=== PATIENT | female | born 1930 | race African-American/Black ===

== ENCOUNTER 2017-01-18 11:58 | Inpatient (IN) | payer OTHER, MEDICARE ==
[2017-01-18 12:22] VITALS: BMI 36.0
[2017-01-18] MEDS ORDERED: SODIUM CHLORIDE 1,000 ML IV STA (12:25)
--- NOTE | 2017-01-18 12:48 | PDOC ---
History of Present Illness - General History Source: Patient Exam Limitations: No Limitations - History of Present Illness Initial Comments: 01/18/17 12:48 The patient is a 86 year old female, with a significant past medical history of frequent UTIs, CAD, hypertension, hyperlipidemia, COPD, diverticulitis, ischemic colitis, and colonic polyps, who presents to the ED accompanied by daughter for altered mental status for approximately 1 week. The patient reports she was unable to sleep last night, because she was seeing the police who were coming to arrest her, but she states they were not talking. Patient reports she also heard the phone ringing, but the people she was seeing were not letting her answer. Daughter reports she lives in the room next to the patient, and when she returned she found the patient on the floor complaining of bilateral ankle pain and knee pain. Daughter states patient had a similar episode about 1 year ago, during which her PCP, Dr. Cho changed her meds. Daughter reports a history of frequent UTIs for which the patient has been on antibiotics for the past 6 months. Patient reports some dysuria, but denies hematuria, frequency, or urgency. She denies any fever, chills, cough, headache , or dizziness. She denies any abdominal pain, nausea, vomiting, diarrhea, or constipation. Patient reports she was feeling well up til last night. Allergies: Penicillins Past Surgical History: Hiatal hernia repair. Social history: Non smoker. No ETOH or drug use. PCP: Dr. Cho <Sony Gore - Last Filed: 01/18/17 14:04> - General History Source: Patient, Family Exam Limitations: Clinical Condition (patient is confused) <Angela Babb - Last Filed: 01/18/17 14:19> - General Chief Complaint: Altered Mental Status Stated Complaint: fall Time Seen by Provider: 01/18/17 12:11 Past History <Sony Gore - Last Filed: 01/18/17 14:04> - Past Medical History Asthma: Yes Cardiac Disorders: Yes (ASHD, cardiac arrythmia) COPD: Yes HTN: Yes Hypercholesterolemia: Yes - Surgical History Abdominal Surgery: Yes (hiatal hernia repair) - Immunization History Immunization Up to Date: Yes - Psycho/Social/Smoking Cessation Hx Anxiety: No Suicidal Ideation: No Smoking Status: No Smoking History: Unknown if ever smoked Number of Cigarettes Smoked Daily: 0 Information on smoking cessation initiated: No Hx Alcohol Use: No Drug/Substance Use Hx: No Substance Use Type: None <Angela Babb - Last Filed: 01/18/17 14:19> - Past Medical History Allergies/Adverse Reactions: Allergies Allergy/AdvReac Type Severity Reaction Status Date / Time Penicillins Allergy Verified 01/18/17 12:19 Home Medications: Ambulatory Orders Ascorbic Acid [Vitamin C with Barbara Hips] 500 mg PO DAILY 01/18/17 Aspirin [ASA -] 81 mg PO DAILY 01/18/17 Cholecalciferol (Vitamin D3) [Vitamin D3] 2,000 unit PO DAILY 01/18/17 Diltiazem HCl [Cartia Xt] 240 mg PO DAILY 01/18/17 Isosorbide Mononitrate [Isosorbide Mononitrate ER] 30 mg PO DAILY 01/18/17 Losartan Potassium 50 mg PO DAILY 01/18/17 Methenamine Hippurate [Hiprex [Nf] -] 0.5 tab PO DAILY 01/18/17 Oxycodone HCl/Acetaminophen [Percocet 5-325 mg Tablet] 1 tab PO TID 01/18/17 Ranitidine [Zantac -] 150 mg PO DAILY 01/18/17 Review of Systems - Review of Systems Able to Perform ROS?: Yes Comments:: 01/18/17 12:48 GENERAL/CONSTITUTIONAL: No fever or chills. No weakness. HEAD, EYES, EARS, NOSE AND THROAT: No change in vision. No ear pain or discharge. No sore throat. CARDIOVASCULAR: No chest pain or shortness of breath. RESPIRATORY: No cough, wheezing, or hemoptysis. GASTROINTESTINAL: No nausea, vomiting, diarrhea or constipation. GENITOURINARY: Yes: +dysuria. No frequency, or change in urination. MUSCULOSKELETAL: No joint or muscle swelling or pain. No neck or back pain. SKIN: No rash NEUROLOGIC: No headache, vertigo, loss of consciousness, or change in strength/ sensation. ENDOCRINE: No increased thirst. No abnormal weight change. HEMATOLOGIC/LYMPHATIC: No anemia, easy bleeding, or history of blood clots. ALLERGIC/IMMUNOLOGIC: No hives or skin allergy. PSYCH: Yes: +hallucinations. No suicidal or homicidal ideations. <Sony Gore - Last Filed: 01/18/17 14:04> *Physical Exam - Vital Signs Last Vital Signs Temp Pulse Resp BP Pulse Ox 98.2 F 140 H 20 125/87 97 01/18/17 12:19 01/18/17 12:19 01/18/17 12:19 01/18/17 12:19 01/18/17 12:19 - Physical Exam Comments: 01/18/17 12:48 GENERAL: Morbidly obese. Awake, alert, and fully oriented, in no acute distress HEAD: No signs of trauma EYES: PERRLA, EOMI, sclera anicteric, conjunctiva clear ENT: Auricles normal inspection, hearing grossly normal, nares patent, oropharynx clear without exudates. Moist mucosa NECK: Normal ROM, supple, no lymphadenopathy, JVD, or masses LUNGS: Bibasilar crackles. Breath sounds equal. No wheezes. HEART: Tachycardic. Regular rhythm, normal S1 and S2, no murmurs, rubs or gallops ABDOMEN: Obese but soft, nontender, normoactive bowel sounds. No guarding, no rebound. No masses EXTREMITIES: Tenderness to palpation to the femur bilaterally. Normal range of motion, no edema. No clubbing or cyanosis. No cords, erythema, or tenderness NEUROLOGICAL: Cranial nerves II through XII grossly intact. Normal speech. Deferred gait. SKIN: Warm, Dry, normal turgor, no rashes or lesions noted. <Gore,Giomilsy - Last Filed: 01/18/17 14:04> - Vital Signs Last Vital Signs Temp Pulse Resp BP Pulse Ox 98.2 F 140 H 20 125/87 97 01/18/17 12:19 01/18/17 12:19 01/18/17 12:19 01/18/17 12:19 01/18/17 12:19 <Angela Babb - Last Filed: 01/18/17 14:19> ED Treatment Course - LABORATORY CBC & Chemistry Diagram: 01/18/17 12:41 01/18/17 12:41 - RADIOLOGY Radiograph Interpretation: 01/18/17 14:04 EXAM: CXR INTERPRETED BY: Dr. Rivera REVIEWED BY: Dr. Babb IMPRESSION: Since since 06/26/2015 at 2027 hours there are some new congestive changes with fluid in the horizontal fissure and prominent mediastinum. Angles are sharp and the soft tissues are intact and there are degenerative changes. <Sony Gore - Last Filed: 01/18/17 14:04> - LABORATORY CBC & Chemistry Diagram: 01/18/17 12:41 01/18/17 12:41 - RADIOLOGY Radiology Studies Ordered: Category Date Time Status CHEST X-RAY PORTABLE* [RAD] Stat Radiology 01/18/17 12:25 Ordered <Angela Babb - Last Filed: 01/18/17 14:19> Medical Decision Making - Medical Decision Making 01/18/17 14:01 First call placed to Dr. Cho at 14:00. Case discussed at this time. <Noemi Goremartinliboriodenis - Last Filed: 01/18/17 14:04> - Medical Decision Making 01/18/17 12:46 86-year-old female with history of hypertension, hyperlipidemia, COPD, chronic urinary tract infections on prophylactic antibiotics presents to the emergency department with her daughter who states that she found the patient on the floor this morning and is having visual hallucinationssaying that the police were in the room, coming to arrest her. The patient has a temperature of 100.1 and is tachycardic to 140 but normotensive. Differential diagnosis includes but is not limited to: Infection (pneumonia versus UTI) ACS, dehydration, electrolyte abnormality,, sepsis/SIRS, toxic/metabolic derangement, intracranial process, Long bone fracture. Plan: 1. Davila culture 2. EKG 3. Urine analysis and urine culture 4. IV fluids for hydration 5. Chest x-ray 6. CT head 7. Observe and reevaluate 01/18/17 14:14 Addendum: Labs were reviewed and are noted in the EMR. The EKG shows SVT at 140 bpm. The patient was given her usual dose of cardizem 240mg PO with only a minimal reduction in her HR. Cardizem 10 mg IV was given. CXR shows pulmonary vascular edema. CT head is poending. Urine analysis shows +nitrites and LE. Ceftriaxone was ordered. I discussed the case with the PCP. The plan is to admit to a monitored setting with Dr. Melendrez as the nurse consultant. <Angela Babb - Last Filed: 01/18/17 14:19> *DC/Admit/Observation/Transfer - Attestations Scribe Attestion: 01/18/17 12:49 Documentation prepared by Sony Gore, acting as medical education manager for Angela Babb MD. <Sony Gore - Last Filed: 01/18/17 14:04> - Discharge Dispostion Admit: Yes - Attestations Physician Attestion: 01/18/17 12:48 I, Dr. Angela Babb, attest that the scribes documentation that appears above has been prepared under my direction and personally reviewed by me in its entirety. I confirmed that the note above accurately reflects all work, treatment, procedures, and medical decision-making performed by me. <Angela Babb - Last Filed: 01/18/17 14:19> Diagnosis at time of Disposition: UTI (urinary tract infection), Altered mental status, SVT (supraventricular tachycardia) - Discharge Dispostion Condition at time of disposition: Stable
[2017-01-18 13:00] LABS: BASOPHIL 0.9 % (0-2.0); MCH 29.5 pg (25.7-33.7); MEAN CELL VOLUME 92.2 fl (80-96); MEAN PLT VOLUME 9.1 fl (7.5-11.1); PLATELET COUNT 221 K/MM3 (134-434); RDW 15.2 % (11.6-15.6); WHITE BLOOD COUNT 8.4 K/mm3 (4.0-10.0)
[2017-01-18 13:07] LABS: URINE APPEARANCE CLEAR; URINE BILIRUBIN NEGATIVE (NEGATIVE); URINE BLOOD NEGATIVE (NEGATIVE); URINE COLOR LTYELLOW; URINE GLUCOSE (UA) NEGATIVE (NEGATIVE); URINE KETONE TRACE (NEGATIVE); URINE NITRITE POSITIVE (NEGATIVE); URINE PROTEIN NEGATIVE (NEGATIVE); URINE UROBILINOGEN NEGATIVE mg/dL (0.2-1.0)
[2017-01-18] MEDS ORDERED: ACETAMINOPHEN 325 MG TABLET (FP) ONE (13:07)
[2017-01-18] MEDS ORDERED: dilTIAZem HCL 60 MG TABLET (FP) ONE (13:07)
[2017-01-18] MEDS ORDERED: ACETAMINOPHEN 500 MG TABLET (FP) PO ONE (13:08)
[2017-01-18 13:14] LABS: ALBUMIN 3.5 g/dl (3.4-5.0); ANION GAP 9 (8-16); CALCIUM 9.3 mg/dL (8.5-10.1); CO2 26 mmol/L (21-32); CREATININE 1.6 mg/dL (0.55-1.02); GLUCOSE,RANDOM 83 mg/dL (74-106); PHOSPHOROUS 2.8 mg/dL (2.5-4.9); SGOT/AST 19 U/L (15-37); SGPT/ALT 17 U/L (12-78)
[2017-01-18 13:18] LABS: ALK PHOS 94 U/L (45-117); BILIRUBIN,TOTAL 0.3 mg/dL (0.2-1.0); CPK 264 IU/L (26-192); TOT PROT 7.7 g/dl (6.4-8.2); TROPONIN I 0.03 ng/ml (0.00-0.05)
[2017-01-18 13:24] LABS: URINE LEUK ESTERASE 1+ (NEGATIVE)
[2017-01-18 13:32] LABS: URINE BACTERIA MODERATE /hpf (NONE SEEN); URINE RBC 3 /hpf (0-3); URINE WBC 17 /hpf (3-5)
[2017-01-18] MEDS ORDERED: CEFTRIAXONE 1 GM in DEXTROSE 5%-WATER - 50 ML IVPB ONE (13:57)
[2017-01-18] MEDS ORDERED: dilTIAZem HCL 50 MG/10 ML - 10 ML VIAL IVPUSH ONE (14:02)
[2017-01-18] MEDS ORDERED: CEFTRIAXONE 50 ML ONE (14:17)
[2017-01-18] MEDS ORDERED: dilTIAZem HCL 125 MG/25 ML - 25 ML VIAL ONE (14:17)
[2017-01-18] MEDS ORDERED: FUROSEMIDE 40 MG/4 ML INJECTABLE VIAL IVPUSH ONE ×2 (18:00→20:15)
[2017-01-18] MEDS ORDERED: PNEUMOC 13-VAL CONJ-DIP CRM/PF 0.5 ML DISP.SYRIN IM ONE (18:28)
[2017-01-18] MEDS: ACETAMINOPHEN 325 MG TABLET (FP) PO SCH (21:35)
[2017-01-18] MEDS: oxyCODONE HCL 5 MG TABLET PO SCH (21:36)
[2017-01-18] MEDS: ALBUTEROL SO4 0.083% IH SOL 2.5 MG/3 ML VIAL.NEB. NEB SCH (23:30)
[2017-01-19] MEDS: oxyCODONE HCL 5 MG TABLET PO SCH ×3 (05:58→21:55)
[2017-01-19] MEDS: ACETAMINOPHEN 325 MG TABLET (FP) PO SCH ×3 (05:59→21:51)
[2017-01-19] MEDS: ALBUTEROL SO4 0.083% IH SOL 2.5 MG/3 ML VIAL.NEB. NEB SCH ×4 (06:35→23:15)
[2017-01-19 07:58] LABS: BASOPHIL 0.6 % (0-2.0); MCH 30.2 pg (25.7-33.7); MCHC 32.8 g/dl (32.0-36.0); MEAN CELL VOLUME 92.3 fl (80-96); NEUTROPHILS 59.2 % (42.8-82.8); PLATELET COUNT 192 K/MM3 (134-434); RDW 15.2 % (11.6-15.6); WHITE BLOOD COUNT 7.6 K/mm3 (4.0-10.0)
[2017-01-19 08:48] LABS: ALBUMIN 2.8 g/dl (3.4-5.0); ALK PHOS 72 U/L (45-117); ANION GAP 9 (8-16); BILIRUBIN,TOTAL 0.9 mg/dL (0.2-1.0); CALCIUM 8.9 mg/dL (8.5-10.1); CO2 28 mmol/L (21-32); CREATININE 1.2 mg/dL (0.55-1.02); GLUCOSE,RANDOM 88 mg/dL (74-106); SGOT/AST 17 U/L (15-37); SGPT/ALT 13 U/L (12-78)
[2017-01-19] MEDS ORDERED: PT OWN MED DRAWER 7, Y5N ONE (09:12)
[2017-01-19] MEDS: LOSARTAN POTASSIUM 50 MG TABLET (FP) PO SCH (09:21)
[2017-01-19] MEDS: ISOSORBIDE MONONITRATE 30 MG TAB.SR.24H (FP) PO SCH (09:21)
[2017-01-19] MEDS: ASPIRIN COATED 81 MG TABLET.EC PO SCH (09:21)
[2017-01-19] MEDS: ASCORBIC ACID 500 MG TABLET (FP) PO SCH (09:23)
[2017-01-19] MEDS: RANITIDINE HCL 150 MG TABLET (FP) PO SCH (09:23)
[2017-01-19] MEDS: CHOLECALCIFEROL (VITAMIN D3) 1,000 UNIT TABLET (FP) PO SCH (09:23)
[2017-01-19] MEDS ORDERED: METHENAMINE HIPPURATE 1 GM PO SCH (10:00)
--- NOTE | 2017-01-19 11:52 | CONSULT ---
Consult Consult Specialty:: infectious diseases Referred by:: Reason for Consultation:: ams,uti - History of Present Illness Chief Complaint: seeing weird people History of Present Illness: 86 year old female, with a significant past medical history of frequent UTIs, CAD, hypertension, hyperlipidemia, COPD, diverticulitis, ischemic colitis, and colonic polyps, admitted because of altered mental status for approximately 1 week. The patient reports she was unable to sleep last night, because she was seeing the police who were coming to arrest her, but she states they were not talking. Also patient mentions that she was seeing a group of 5 women who would not talk Patient reports she also heard the phone ringing, but the people she was seeing were not letting her answer. Daughter reports she lives in the room next to the patient, and when she returned she found the patient on the floor complaining of bilateral ankle pain and knee pain. Daughter states patient had a similar episode about 1 year ago, during which her PCP, Dr. Cho changed her meds. patient according to the history has been on meds for uti for the last 6 months Patient reports some dysuria, but denies hematuria, frequency, or urgency. She denies any fever, chills, cough, headache, or dizziness. She denies any abdominal pain, nausea, vomiting, diarrhea, or constipation. she mentions that she is depressed because she has had couple of deaths in her family which include it seems 3 children patient still looks confused so dont know the relevant of the information - History Source History Provided By: Patient, Medical Record Limitations to Obtaining History: Other (confusion) - Past Medical History Cardio/Vascular: Yes: CAD, HTN, Hyperlipdemia Pulmonary: Yes: COPD Gastrointestinal: Yes: Diverticulitis, Diverticulosis, Other (ischemic colitis, h/o colon polyps) - Past Surgical History Past Surgical History: Yes: None, Appendectomy, Colectomy (partial colectomy for perforation from ? diverticulitis/ischemic colitis), Hysterectomy (JW/BSO) - Alcohol/Substance Use Hx Alcohol Use: No History of Substance Use: reports: None - Smoking History Smoking history: Former smoker Have you smoked in the past 12 months: No Aproximately how many cigarettes per day: 0 If you are a former smoker, when did you quit?: many years - Social History Usual Living Arrangement: With Child ADL: Family Assistance History of Recent Travel: No Home Medications - Allergies Allergies/Adverse Reactions: Allergies Allergy/AdvReac Type Severity Reaction Status Date / Time Penicillins Allergy Verified 01/18/17 12:19 - Home Medications Home Medications: Ambulatory Orders Ascorbic Acid [Vitamin C with Barbara Hips] 500 mg PO DAILY 01/18/17 Aspirin [ASA -] 81 mg PO DAILY 01/18/17 Cholecalciferol (Vitamin D3) [Vitamin D3] 2,000 unit PO DAILY 01/18/17 Diazepam [Valium] 10 mg PO Q8H PRN 01/18/17 Diltiazem HCl [Cartia Xt] 240 mg PO DAILY 01/18/17 Isosorbide Mononitrate [Isosorbide Mononitrate ER] 30 mg PO DAILY 01/18/17 Losartan Potassium 50 mg PO DAILY 01/18/17 Methenamine Hippurate [Hiprex [Nf] -] 0.5 tab PO DAILY 01/18/17 Oxycodone HCl/Acetaminophen [Percocet 5-325 mg Tablet] 1 tab PO TID 01/18/17 Ranitidine [Zantac -] 150 mg PO DAILY 01/18/17 Family Disease History - Family Disease History Family Disease History: CA: Son (colon ca) Review of Systems - Review of Systems Constitutional: reports: Other Eyes: reports: No Symptoms HENT: reports: No Symptoms Neck: reports: No Symptoms Cardiovascular: reports: No Symptoms Respiratory: reports: No Symptoms Gastrointestinal: reports: No Symptoms Genitourinary: reports: Burning, Dysuria Musculoskeletal: reports: No Symptoms Integumentary: reports: No Symptoms Neurological: reports: Confusion Endocrine: reports: No Symptoms Hematology/Lymphatic: reports: No Symptoms Psychiatric: reports: No Symptoms Physical Exam Vital Signs: Vital Signs Temperature 98.6 F 01/19/17 09:16 Pulse Rate 89 01/19/17 09:16 Respiratory Rate 20 01/19/17 09:16 Blood Pressure 144/60 01/19/17 09:16 O2 Sat by Pulse Oximetry (%) 99 01/18/17 21:00 Constitutional: Yes: Well Nourished, No Distress, Calm, Obese Eyes: Yes: Conjunctiva Clear HENT: Yes: Atraumatic Neck: Yes: Supple, Trachea Midline Cardiovascular: Yes: S1, S2 Respiratory: Yes: Regular, On Nasal O2, Poor Air Entry (at the bases) Gastrointestinal: Yes: Normal Bowel Sounds, Soft Musculoskeletal: Yes: Other Extremities: Yes: Other (pain left ankle,minimal swelling left ankle) Edema: LLE: 1+, RLE: 1+ Neurological: Yes: Alert, Confusion Psychiatric: Yes: Alert, Other Labs: CBC, BMP 01/19/17 05:35 01/19/17 05:35 Assessment/Plan ams uti plan patient already received ceftriaxone will continue untill we get the organism hydration rest as per primary team
[2017-01-19] MEDS: CEFTRIAXONE 50 ML IVPB SCH (12:17)
--- NOTE | 2017-01-19 17:59 | EKG ---
Test Reason : Blood Pressure : / mmHG Vent. Rate : 142 BPM Atrial Rate : 027 BPM P-R Int : 000 ms QRS Dur : 096 ms QT Int : 306 ms P-R-T Axes : 000 -45 126 degrees QTc Int : 470 ms SUPRAVENTRICULAR TACHYCARDIA LEFT AXIS DEVIATION ANTERIOR INFARCT , AGE UNDETERMINED ABNORMAL ECG WHEN COMPARED WITH ECG OF 26-JUN-2015 19:43, RHYTHM HAS CHANGED ABOVE VENT. RATE HAS INCREASED BY [address] NOW DEPRESSED IN LATERAL LEADS F/U TRACING IS RECOMMENDED Confirmed by ANAMARIA BOLAÑOS MD ([id number]) on 01/19/2017 5:59:25 PM Referred By: Confirmed By:ANAMARIA BOLAÑOS MD
[2017-01-20] MEDS: oxyCODONE HCL 5 MG TABLET PO SCH ×3 (06:22→21:50)
[2017-01-20] MEDS: ACETAMINOPHEN 325 MG TABLET (FP) PO SCH ×3 (06:23→21:50)
[2017-01-20] MEDS: ALBUTEROL SO4 0.083% IH SOL 2.5 MG/3 ML VIAL.NEB. NEB SCH ×3 (06:30→18:29)
--- NOTE | 2017-01-20 09:12 | PN ---
Progress Note, Physician Chief Complaint: Feels better History of Present Illness: Case discussed with Dr Little ,needs further evaluation - Current Medication List Current Medications: Active Medications Acetaminophen (Tylenol -) 325 mg PO TID [facility] Last Admin: 01/20/17 06:23 Dose: 325 mg Albuterol Sulfate (Ventolin 0.083% Nebulizer Soln -) 1 amp NEB QIDR [facility] Last Admin: 01/20/17 06:30 Dose: 1 amp Ascorbic Acid (Vitamin C -) 500 mg PO DAILY [facility] Last Admin: 01/19/17 09:23 Dose: 500 mg Aspirin (Ecotrin -) 81 mg PO DAILY [facility] Last Admin: 01/19/17 09:21 Dose: 81 mg Cholecalciferol (Vitamin D3 -) 2,000 unit PO DAILY [facility] Last Admin: 01/19/17 09:23 Dose: 2,000 unit Diltiazem HCl (Cardizem Cd -) 240 mg PO DAILY [facility] Last Admin: 01/19/17 09:21 Dose: 240 mg Ceftriaxone Sodium (Rocephin 1gm Ivpb (Pre-Docked)) 50 mls @ 100 mls/hr IVPB DAILY [facility] Stop: 01/21/17 11:29 Last Admin: 01/19/17 12:17 Dose: 100 mls/hr Isosorbide Mononitrate (Imdur -) 30 mg PO DAILY [facility] Last Admin: 01/19/17 09:21 Dose: 30 mg Losartan Potassium (Cozaar -) 50 mg PO DAILY [facility] Last Admin: 01/19/17 09:21 Dose: 50 mg Oxycodone HCl (Roxicodone -) 5 mg PO TID [facility] Last Admin: 01/20/17 06:22 Dose: 5 mg Ranitidine HCl (Zantac -) 150 mg PO DAILY [facility] Last Admin: 01/19/17 09:23 Dose: 150 mg - Objective Vital Signs: Vital Signs Temperature 97.7 F 01/20/17 06:00 Pulse Rate 64 01/20/17 06:00 Respiratory Rate 20 01/20/17 06:00 Blood Pressure 109/53 01/20/17 06:00 O2 Sat by Pulse Oximetry (%) 96 01/19/17 21:00 Constitutional: Yes: Calm Eyes: Yes: WNL HENT: Yes: WNL Neck: Yes: WNL Cardiovascular: Yes: Regular Rate and Rhythm Respiratory: Yes: WNL ...Rectal Exam: Yes: Deferred Edema: No Peripheral Pulses WNL: Yes Integumentary: Yes: WNL Neurological: Yes: Alert Labs: CBC, BMP 01/19/17 05:35 01/19/17 05:35 Assessment/Plan can be transferred to regular floor
[2017-01-20] MEDS: CHOLECALCIFEROL (VITAMIN D3) 1,000 UNIT TABLET (FP) PO SCH (09:51)
[2017-01-20] MEDS: ISOSORBIDE MONONITRATE 30 MG TAB.SR.24H (FP) PO SCH (09:51)
[2017-01-20] MEDS: LOSARTAN POTASSIUM 50 MG TABLET (FP) PO SCH (09:51)
[2017-01-20] MEDS: RANITIDINE HCL 150 MG TABLET (FP) PO SCH (09:51)
[2017-01-20] MEDS: ASPIRIN COATED 81 MG TABLET.EC PO SCH (09:51)
[2017-01-20] MEDS: ASCORBIC ACID 500 MG TABLET (FP) PO SCH (09:51)
[2017-01-20] MEDS: CEFTRIAXONE 50 ML IVPB SCH (09:52)
--- NOTE | 2017-01-20 12:07 | CONS ---
DATE OF CONSULTATION: 01/19/2017 REQUESTING PHYSICIAN: Ira Cho MD CHIEF COMPLAINT: 1. Hallucination and mental confusion. 2. Recent nonproductive cough. HISTORY: The patient is an 86-year-old female with longstanding history of hypertension, coronary artery disease, angina pectoris, hypercholesterolemia, history of recurrent urinary tract infections, bronchial asthma, history of COPD, vitamin D deficiency, gastroesophageal reflux disease, chronic low back syndrome, peripheral neuropathy. History was obtained both from the patient and her daughter, and according to the daughter, starting last , she started to show mental confusion in time and space. This continued to Friday. On Friday, she was found on the floor and was hallucinating and seeing people on the floor. She was brought to the hospital via paramedics. The patient has had a nonproductive cough for about 1 week. There is no history of chills, fever, or night sweats. The patient has had chronic dyspnea on minimal exertion, but recently she noticed that her dyspnea was more pronounced. She denies having paroxysmal or nocturnal dyspnea or orthopnea. There is no history of recent chest pain or discomfort. The patient has noted recent swelling of her lower extremities. No history of diabetes mellitus. The patient developed palpitations and was found to be in a supraventricular tachycardia that was terminated with intravenous diltiazem. There has been no recurrence. PAST MEDICAL HISTORY: As mentioned in the history of present illness. PAST SURGICAL HISTORY: According to her daughter, she has had the following surgeries: 1. Status post hysterectomy. 2. Status post appendectomy. 3. Bilateral hip replacements. 4. Partial colectomy for diverticulitis. 5. History of right abdominal hernia repair. 6. Apparently has had surgery for a hiatus hernia repair. SOCIAL HISTORY: She is a . She is disabled. Had 6 children, 2 sons and 4 daughters. Her 2 sons are . One of a stab wound and the other son of a carcinoma site uncertain both in their 50s. Her daughter apparently related to complications of bronchial asthma also in her 50s. The other children are apparently healthy. FAMILY HISTORY: She does not know her father. Mother at the age of 92 with hypertension. She had 1 sister who at the age of 18 of unknown cause. ALLERGIES: PENICILLIN. CURRENT MEDICATIONS: 1. Losartan 50 mg p.o. daily. 2. Rocephin 1 g IV daily. 3. Albuterol via nebulizer q.i.d. p.r.n. 4. Diltiazem extended release 240 mg p.o. daily. 5. Zantac 150 mg p.o. daily. 6. Isosorbide mononitrate 30 mg p.o. daily. 7. Aspirin 81 mg p.o. daily. 8. Oxycodone 5 mg p.o. t.i.d. 9. Vitamin C 500 mg p.o. daily. 10. Vitamin D3 take 2000 international unit p.o. daily. REVIEW OF SYSTEMS: Constitutional: No history of chills, fever, or night sweats. No history of unintentional weight loss. HEENT: No history of headaches, diplopia, blurred vision. No history of epistaxis, hoarseness, tinnitus, or deafness reported. Cardiovascular: See history of present illness. Respiratory: See history of present illness. According to her daughter, she snores loudly. Gastrointestinal: No history of vomiting. History of nausea this morning. No history of melena or hematemesis. No history of abdominal pain or discomfort. Neurologic: See history of present illness. Endocrine: No history of polyuria or polydipsia. No history of intolerance to cold or warm weather. Musculoskeletal: History of chronic back syndrome. No history of myalgias reported. Gastrointestinal: History of frequency and urgency. No history of hematuria. Hematological/Lymphatics: No history of ecchymosis, bleeding, or anemia. No history of lymphadenopathy. PHYSICAL EXAMINATION: General: An 86-year-old obese female who was in no acute distress. No pallor, cyanosis, clubbing, or jaundice. Vital Signs: Blood pressure 130/80 mmHg, pulse 100 beats per minute and regular, respirations 20 per minute, weight 230 pounds, temperature on January 18 was 98.2 degrees Fahrenheit. Neck: Supple. No jugular venous distention. Hepatojugular reflux is negative. Carotids are 2+. Upstrokes are normal. No bruits are heard, and no thyromegaly is appreciated. Heart: PMI is in the 5th intercostal space. No heaves or thrills. Heart sounds are distant. No murmur or gallop is appreciated. Lungs: Coarse breath sounds. Fine crepitations at the right side. Abdomen: Obese, soft, and nontender. No hepatosplenomegaly or palpable masses are felt. Bowel sounds are heard. No bruits are present. Extremities: No calf tenderness or dependent edema. Dorsalis pedis and posterior tibial pulses are weak. LABORATORY DATA: January 19, 2017 CBC: WBC count 7600, hemoglobin 12.2 g/dL, platelet count 192,000. Normal differential except eosinophils were 7%. Chemistry: Serum sodium 144, potassium 4.3, chloride 107, CO2 is 28 mmol/L, BUN 21, creatinine 1.2 mg/dL. CK on admission 264, troponin 0.03. BNP 1290.87. Urinalysis revealed 1+ leukocyte esterase. There were 17 WBCs. X-ray chest. Impression: New congestive changes since June 26, 2016. IMPRESSION: 1. Paroxysmal supraventricular tachycardia currently in sinus rhythm. 2. Hallucinations and mental confusion, etiology to be determined. 3. Coronary artery disease, angina pectoris. 4. History of nonproductive cough and exertional dyspnea, etiology: A. Secondary to left ventricular failure. B. Asthmatic bronchitis. 5. Bronchial asthma. 6. Asthmatic bronchitis needs to be excluded. 7. Hypertension, hypertensive cerebrovascular disease. 8. History of chronic obstructive pulmonary disease. 9. Hypercholesterolemia. 10. Vitamin D deficiency. 11. History of gastroesophageal reflux disease. 12. Chronic urinary tract infection. 13. Chronic low back syndrome. 14. History of peripheral neuropathy. 15. Exogenous obesity. 16. Obstructive sleep apnea syndrome, needs exclusion. RECOMMENDATIONS: 1. Follow up x-ray chest PA and lateral. 2. Continue low dose diuretics. 3. Daily weight. 4. May need to increase the dose of Cardizem to 300 mg in view of recent supraventricular tachycardia and recent elevation of blood pressure. 5. T3,T4, TSH. 6. Dietary modifications and weight reduction. 7. Neurological evaluation. 8. Consider sleep study. PROGNOSIS: Guarded. Thank you for your referral. Sincerely, ANAMARIA BOLAÑOS M.D. [id number]
--- NOTE | 2017-01-20 13:49 | PN ---
Progress Note, Physician History of Present Illness: patient stable no new issues comfortable - Current Medication List Current Medications: Active Medications Acetaminophen (Tylenol -) 325 mg PO TID [facility] Last Admin: 01/20/17 06:23 Dose: 325 mg Albuterol Sulfate (Ventolin 0.083% Nebulizer Soln -) 1 amp NEB QIDR [facility] Last Admin: 01/20/17 11:12 Dose: 1 amp Ascorbic Acid (Vitamin C -) 500 mg PO DAILY [facility] Last Admin: 01/20/17 09:51 Dose: 500 mg Aspirin (Ecotrin -) 81 mg PO DAILY [facility] Last Admin: 01/20/17 09:51 Dose: 81 mg Cholecalciferol (Vitamin D3 -) 2,000 unit PO DAILY [facility] Last Admin: 01/20/17 09:51 Dose: 2,000 unit Diltiazem HCl (Cardizem Cd -) 240 mg PO DAILY [facility] Last Admin: 01/20/17 09:51 Dose: 240 mg Ceftriaxone Sodium (Rocephin 1gm Ivpb (Pre-Docked)) 50 mls @ 100 mls/hr IVPB DAILY [facility] Stop: 01/21/17 11:29 Last Admin: 01/20/17 09:52 Dose: 100 mls/hr Isosorbide Mononitrate (Imdur -) 30 mg PO DAILY [facility] Last Admin: 01/20/17 09:51 Dose: 30 mg Losartan Potassium (Cozaar -) 50 mg PO DAILY [facility] Last Admin: 01/20/17 09:51 Dose: 50 mg Oxycodone HCl (Roxicodone -) 5 mg PO TID [facility] Last Admin: 01/20/17 06:22 Dose: 5 mg Ranitidine HCl (Zantac -) 150 mg PO DAILY [facility] Last Admin: 01/20/17 09:51 Dose: 150 mg - Objective Vital Signs: Vital Signs Temperature 98.4 F 01/20/17 10:00 Pulse Rate 72 01/20/17 11:12 Respiratory Rate 22 01/20/17 10:00 Blood Pressure 124/60 01/20/17 10:00 O2 Sat by Pulse Oximetry (%) 95 01/20/17 11:12 Constitutional: Yes: No Distress, Calm, Obese Neck: Yes: Supple, Trachea Midline Cardiovascular: Yes: Regular Rate and Rhythm Respiratory: Yes: Regular, On Nasal O2, Poor Air Entry Gastrointestinal: Yes: Normal Bowel Sounds, Soft Musculoskeletal: Yes: WNL Extremities: Yes: WNL Neurological: Yes: Alert Psychiatric: Yes: Alert Labs: CBC, BMP 01/19/17 05:35 01/19/17 05:35 Assessment/Plan ams uti plan continue ceftriaxone rest continue current mgmt neurology on case hydration
--- NOTE | 2017-01-20 14:53 | CONSULT ---
Consult - text type - Consultation Consultation Note: NEUROLOGY CONSULTATION is greatly appreciated: This 86 yo RH woman lives with her daughter. PMH sig for HTN, ASHD, Chronic pain due to arthritis and recurrent UTI's. Maintained on diltiazem, Isordil, losartan, ranitidine, and percocet. Admitted after a few weeks of confusion culminating in hallucinations/delusions and a fall in her bedroom. Similar episode a few years ago. CT of head (reviewed): Moderate, diffuse atrophy with microvascular changes. Said to be unchanged from 01/11/10. BELLE: Neck supple. No bruits. Cor reg. 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 Obese. NEURO: Mild OMS with decreased recall but fairly preserved orientation. Fluent speech. CN II-XII: normal. Gag OK Motor: No drift. Normal strength. Slightly reduced GELACIO's. Min cogwheeling (R>L). Downgoing toes. Areflexic in legs. Coord: No obvious FTN dystaxia Sensory: Reduced Vib in feet. IMP: Non-focal exam sig for Mild-Mod OMS. Probable LS spinal stenosis. Toxic-metabolic encephalopathy. SUGGEST: Continue antibiotics an hydration. Check B12, TSH, RPR Taper and D/C Narcotics Mobilize OOB to chair. PT for gait with walker. administrative services officer evaluation. Thank you very much, Dick Little MD
[2017-01-20] MEDS: guaiFENesin 200 MG/10 ML 10 ML UNIT-DOSE CUPS PO PRN (23:28)
--- NOTE | 2017-01-21 00:12 | HP ---
DATE OF ADMISSION: 01/18/2017 HISTORY OF PRESENT ILLNESS: This is an 86-year-old female known to have CHF, COPD, bronchial asthma, back pain who came to the emergency room yesterday morning with complaints of short of breath, also was disoriented. In the ER, it was found that the patient is in mild congestive heart failure, also has a UTI, so was admitted. This morning, the patient is talking normal, alert, oriented, but she was seeing things when she was at home. She lives with her daughter. PHYSICAL EXAMINATION: Vital Signs: Her BP is 140/70, pulse 72, respirations 20, temperature 98. HEENT: Unremarkable. Neck: Supple. Lungs: Few basilar rales present. Heart: S1, S2 normal. No S3, S4. Abdomen: Soft. Legs: No edema. Neurologic: Examination grossly normal. LABORATORY DATA: WBC 7.6, hemoglobin 12, hematocrit 37, platelets 192. Chemistry: Sodium 144, potassium 4.3, chloride 107, CO2 28, BUN 21, creatinine 1.2. AST and ALT normal. Albumin 2.8. Chest -ray: Mild chest congestion present. CT of the head is unremarkable. Joint x-rays: No acute changes. Urinalysis showed urine nitrite positive, WBC 17. IMPRESSION: Congestive heart failure, cardiac arrhythmia, urinary tract infection, altered mental status. PLAN: Cardiology consult Dr. Hawkins. Continue cardiac monitoring. IV antibiotics for the UTI. Will follow this patient. Jenny [id number]
[2017-01-21] MEDS: ALBUTEROL SO4 0.083% IH SOL 2.5 MG/3 ML VIAL.NEB. NEB SCH ×5 (06:20→23:08)
[2017-01-21] MEDS: guaiFENesin 200 MG/10 ML 10 ML UNIT-DOSE CUPS PO PRN ×2 (06:37→23:18)
[2017-01-21] MEDS: ACETAMINOPHEN 325 MG TABLET (FP) PO SCH ×3 (06:38→23:18)
[2017-01-21] MEDS: oxyCODONE HCL 5 MG TABLET PO SCH ×3 (06:38→23:19)
--- NOTE | 2017-01-21 08:42 | PN ---
Progress Note, Physician Chief Complaint: Feels better History of Present Illness: Dr Downs consult note noted - Current Medication List Current Medications: Active Medications Acetaminophen (Tylenol -) 325 mg PO TID [facility] Last Admin: 01/21/17 06:38 Dose: 325 mg Albuterol Sulfate (Ventolin 0.083% Nebulizer Soln -) 1 amp NEB QIDR [facility] Last Admin: 01/21/17 06:20 Dose: 1 amp Ascorbic Acid (Vitamin C -) 500 mg PO DAILY [facility] Last Admin: 01/20/17 09:51 Dose: 500 mg Aspirin (Ecotrin -) 81 mg PO DAILY [facility] Last Admin: 01/20/17 09:51 Dose: 81 mg Cholecalciferol (Vitamin D3 -) 2,000 unit PO DAILY [facility] Last Admin: 01/20/17 09:51 Dose: 2,000 unit Diltiazem HCl (Cardizem Cd -) 240 mg PO DAILY [facility] Last Admin: 01/20/17 09:51 Dose: 240 mg Guaifenesin (Robitussin -) 10 ml PO Q6H PRN PRN Reason: COUGH/CHEST CONGESTION Last Admin: 01/21/17 06:37 Dose: 10 ml Ceftriaxone Sodium (Rocephin 1gm Ivpb (Pre-Docked)) 50 mls @ 100 mls/hr IVPB DAILY [facility] Stop: 01/21/17 11:29 Last Admin: 01/20/17 09:52 Dose: 100 mls/hr Isosorbide Mononitrate (Imdur -) 30 mg PO DAILY [facility] Last Admin: 01/20/17 09:51 Dose: 30 mg Losartan Potassium (Cozaar -) 50 mg PO DAILY [facility] Last Admin: 01/20/17 09:51 Dose: 50 mg Oxycodone HCl (Roxicodone -) 5 mg PO TID [facility] Last Admin: 01/21/17 06:38 Dose: 5 mg Ranitidine HCl (Zantac -) 150 mg PO DAILY [facility] Last Admin: 01/20/17 09:51 Dose: 150 mg - Objective Vital Signs: Vital Signs Temperature 98.9 F 01/21/17 06:00 Pulse Rate 84 01/21/17 06:00 Respiratory Rate 20 01/21/17 06:00 Blood Pressure 151/72 01/21/17 06:00 O2 Sat by Pulse Oximetry (%) 96 01/20/17 21:00 Constitutional: Yes: No Distress Eyes: Yes: WNL HENT: Yes: WNL Neck: Yes: WNL Cardiovascular: Yes: Regular Rate and Rhythm Respiratory: Yes: WNL Gastrointestinal: Yes: Normal Bowel Sounds ...Rectal Exam: Yes: WNL Genitourinary: Yes: WNL Edema: No Integumentary: Yes: WNL Neurological: Yes: Alert Psychiatric: Yes: WNL Labs: CBC, BMP 01/19/17 05:35 01/19/17 05:35 Assessment/Plan PT for ambulation
[2017-01-21] MEDS: CHOLECALCIFEROL (VITAMIN D3) 1,000 UNIT TABLET (FP) PO SCH (10:29)
[2017-01-21] MEDS: CEFTRIAXONE 50 ML IVPB SCH (10:29)
[2017-01-21] MEDS: RANITIDINE HCL 150 MG TABLET (FP) PO SCH (10:30)
[2017-01-21] MEDS: ISOSORBIDE MONONITRATE 30 MG TAB.SR.24H (FP) PO SCH (10:30)
[2017-01-21] MEDS: ASPIRIN COATED 81 MG TABLET.EC PO SCH (10:30)
[2017-01-21] MEDS: LOSARTAN POTASSIUM 50 MG TABLET (FP) PO SCH (10:30)
[2017-01-21] MEDS: ASCORBIC ACID 500 MG TABLET (FP) PO SCH (10:30)
--- NOTE | 2017-01-21 13:57 | PN ---
Progress Note, Physician History of Present Illness: doing well refused physio - Current Medication List Current Medications: Active Medications Acetaminophen (Tylenol -) 325 mg PO TID [facility] Last Admin: 01/21/17 06:38 Dose: 325 mg Albuterol Sulfate (Ventolin 0.083% Nebulizer Soln -) 1 amp NEB QIDR [facility] Last Admin: 01/21/17 11:20 Dose: 1 amp Ascorbic Acid (Vitamin C -) 500 mg PO DAILY [facility] Last Admin: 01/21/17 10:30 Dose: 500 mg Aspirin (Ecotrin -) 81 mg PO DAILY [facility] Last Admin: 01/21/17 10:30 Dose: 81 mg Cholecalciferol (Vitamin D3 -) 2,000 unit PO DAILY [facility] Last Admin: 01/21/17 10:29 Dose: 2,000 unit Diltiazem HCl (Cardizem Cd -) 240 mg PO DAILY [facility] Last Admin: 01/21/17 10:30 Dose: 240 mg Guaifenesin (Robitussin -) 10 ml PO Q6H PRN PRN Reason: COUGH/CHEST CONGESTION Last Admin: 01/21/17 06:37 Dose: 10 ml Isosorbide Mononitrate (Imdur -) 30 mg PO DAILY [facility] Last Admin: 01/21/17 10:30 Dose: 30 mg Losartan Potassium (Cozaar -) 50 mg PO DAILY [facility] Last Admin: 01/21/17 10:30 Dose: 50 mg Oxycodone HCl (Roxicodone -) 5 mg PO TID [facility] Last Admin: 01/21/17 06:38 Dose: 5 mg Ranitidine HCl (Zantac -) 150 mg PO DAILY [facility] Last Admin: 01/21/17 10:30 Dose: 150 mg - Objective Vital Signs: Vital Signs Temperature 98.9 F 01/21/17 06:00 Pulse Rate 78 01/21/17 11:19 Respiratory Rate 20 01/21/17 06:00 Blood Pressure 151/72 01/21/17 06:00 O2 Sat by Pulse Oximetry (%) 98 01/21/17 11:19 Constitutional: Yes: No Distress, Calm, Obese Cardiovascular: Yes: Regular Rate and Rhythm, S1, S2 Respiratory: Yes: Regular, Poor Air Entry (bases) Gastrointestinal: Yes: Normal Bowel Sounds, Soft Musculoskeletal: Yes: Other Extremities: Yes: WNL Neurological: Yes: Alert, Oriented Psychiatric: Yes: Alert, Other Labs: CBC, BMP 01/19/17 05:35 01/19/17 05:35 Assessment/Plan ams uti plan continue current mgmt rest as per primary team physio once ready to go home will switch to oral abx
[2017-01-22] MEDS: ALBUTEROL SO4 0.083% IH SOL 2.5 MG/3 ML VIAL.NEB. NEB SCH ×3 (06:40→18:55)
[2017-01-22] MEDS: ACETAMINOPHEN 325 MG TABLET (FP) PO SCH ×3 (06:50→21:32)
[2017-01-22] MEDS: oxyCODONE HCL 5 MG TABLET PO SCH ×3 (06:51→21:33)
--- NOTE | 2017-01-22 09:04 | PN ---
Progress Note, Physician Chief Complaint: Gets confused some times History of Present Illness: PT refused by patient - Current Medication List Current Medications: Active Medications Acetaminophen (Tylenol -) 325 mg PO TID [facility] Last Admin: 01/22/17 06:50 Dose: 325 mg Albuterol Sulfate (Ventolin 0.083% Nebulizer Soln -) 1 amp NEB QIDR [facility] Last Admin: 01/22/17 06:40 Dose: 1 amp Ascorbic Acid (Vitamin C -) 500 mg PO DAILY [facility] Last Admin: 01/21/17 10:30 Dose: 500 mg Aspirin (Ecotrin -) 81 mg PO DAILY [facility] Last Admin: 01/21/17 10:30 Dose: 81 mg Cholecalciferol (Vitamin D3 -) 2,000 unit PO DAILY [facility] Last Admin: 01/21/17 10:29 Dose: 2,000 unit Diltiazem HCl (Cardizem Cd -) 240 mg PO DAILY [facility] Last Admin: 01/21/17 10:30 Dose: 240 mg Guaifenesin (Robitussin -) 10 ml PO Q6H PRN PRN Reason: COUGH/CHEST CONGESTION Last Admin: 01/21/17 23:18 Dose: 10 ml Isosorbide Mononitrate (Imdur -) 30 mg PO DAILY [facility] Last Admin: 01/21/17 10:30 Dose: 30 mg Losartan Potassium (Cozaar -) 50 mg PO DAILY [facility] Last Admin: 01/21/17 10:30 Dose: 50 mg Oxycodone HCl (Roxicodone -) 5 mg PO TID [facility] Last Admin: 01/22/17 06:51 Dose: 5 mg Ranitidine HCl (Zantac -) 150 mg PO DAILY [facility] Last Admin: 01/21/17 10:30 Dose: 150 mg - Objective Vital Signs: Vital Signs Temperature 98.8 F 01/22/17 06:37 Pulse Rate 70 01/22/17 06:37 Respiratory Rate 20 01/22/17 06:37 Blood Pressure 123/60 01/22/17 06:37 O2 Sat by Pulse Oximetry (%) 99 01/21/17 21:00 Constitutional: Yes: Anxious Eyes: Yes: WNL HENT: Yes: WNL Neck: Yes: WNL Cardiovascular: Yes: WNL Respiratory: Yes: Regular Gastrointestinal: Yes: WNL ...Rectal Exam: Yes: Deferred Genitourinary: Yes: WNL Neurological: Yes: WNL Labs: CBC, BMP 01/19/17 05:35 01/19/17 05:35 Assessment/Plan SNF for short term rehab
[2017-01-22 10:12] LABS: MCH 30.1 pg (25.7-33.7); MCHC 32.4 g/dl (32.0-36.0); MEAN CELL VOLUME 92.8 fl (80-96); MEAN PLT VOLUME 9.3 fl (7.5-11.1); PLATELET COUNT 194 K/MM3 (134-434); RDW 15.1 % (11.6-15.6); WHITE BLOOD COUNT 7.6 K/mm3 (4.0-10.0)
[2017-01-22 10:15] LABS: CALCIUM 9.3 mg/dL (8.5-10.1); GLUCOSE,RANDOM 99 mg/dL (74-106); SGOT/AST 56 U/L (15-37)
[2017-01-22 10:29] LABS: ALK PHOS 101 U/L (45-117); ANION GAP 8 (8-16); BILIRUBIN,TOTAL 0.2 mg/dL (0.2-1.0); CO2 28 mmol/L (21-32); CREATININE 1.2 mg/dL (0.55-1.02); SGPT/ALT 60 U/L (12-78); TOT PROT 6.9 g/dl (6.4-8.2)
[2017-01-22 10:30] LABS: THYROID STIMULATING HORMONE 2.24 uIU/ml (0.358-3.74)
[2017-01-22] MEDS: ASPIRIN COATED 81 MG TABLET.EC PO SCH (11:31)
[2017-01-22] MEDS: LOSARTAN POTASSIUM 50 MG TABLET (FP) PO SCH (11:31)
[2017-01-22] MEDS: RANITIDINE HCL 150 MG TABLET (FP) PO SCH (11:32)
[2017-01-22] MEDS: ASCORBIC ACID 500 MG TABLET (FP) PO SCH (11:32)
[2017-01-22] MEDS: ISOSORBIDE MONONITRATE 30 MG TAB.SR.24H (FP) PO SCH (11:33)
[2017-01-22] MEDS: CHOLECALCIFEROL (VITAMIN D3) 1,000 UNIT TABLET (FP) PO SCH (11:33)
--- NOTE | 2017-01-22 12:58 | PN ---
Progress Note (short form) - Note Progress Note: S: 86 year old female with history of hypertension, hypercholesterolemia, CAD, angina pectoris, COPD, bronchial asthma, admitted with history of mental confusion and found to have UTI and also has had progressive cough, possibly related asthmatic bronchitis. Patient denies having SOB, chest pain, or discomfort, cough is subsiding. No history of chills or fever and her appetite has improved. Active Medications Generic Name Dose Route Start Last Admin Trade Name Freq PRN Reason Stop Dose Admin Acetaminophen 325 mg 01/18/17 22:00 01/22/17 06:50 Tylenol - PO 325 mg TID [facility] Administration Albuterol Sulfate 1 amp 01/18/17 18:00 01/22/17 11:50 Ventolin 0.083% Nebulizer Soln - NEB Not Given QIDR [facility] Ascorbic Acid 500 mg 01/19/17 10:00 01/22/17 11:32 Vitamin C - PO 500 mg DAILY [facility] Administration Aspirin 81 mg 01/19/17 10:00 01/22/17 11:31 Ecotrin - PO 81 mg DAILY [facility] Administration Cholecalciferol 2,000 unit 01/19/17 10:00 01/22/17 11:33 Vitamin D3 - PO 2,000 unit DAILY [facility] Administration Diltiazem HCl 240 mg 01/19/17 10:00 01/22/17 11:30 Cardizem Cd - PO 240 mg DAILY [facility] Administration Guaifenesin 10 ml 01/20/17 22:25 01/21/17 23:18 Robitussin - PO 10 ml Q6H PRN Administration COUGH/CHEST CONGESTION Isosorbide Mononitrate 30 mg 01/19/17 10:00 01/22/17 11:33 Imdur - PO 30 mg DAILY [facility] Administration Losartan Potassium 50 mg 01/19/17 10:00 01/22/17 11:31 Cozaar - PO 50 mg DAILY [facility] Administration Oxycodone HCl 5 mg 01/18/17 22:00 01/22/17 06:51 Roxicodone - PO 5 mg TID [facility] Administration Ranitidine HCl 150 mg 01/19/17 10:00 01/22/17 11:32 Zantac - PO 150 mg DAILY [facility] Administration O: 86 year old female was in no acute distress. No pallor, cyanosis, clubbing, or jaundice. Last Vital Signs Temp Pulse Resp BP Pulse Ox 98.8 F 82 20 130/64 98 01/22/17 10:00 01/22/17 10:00 01/22/17 10:00 01/22/17 10:00 01/22/17 09:00 NECK: Supple, no JVD, negative HJR, carotids were equal and upstrokes were normal, no thyromegaly appreciated. HEART: PMI was in the 5th intercostal space, no heaves or thrills, S1 and S2 were normal. No murmurs or gallops were appreciated. LUNGS: Clear on auscultation bilaterally. ABDOMEN: Soft, nontender, no hepatosplenomegaly appreciated, and no palpable masses were felt. EXTREMITIES: No calf tenderness or dependent edema. Pulses are normal. CBC, BMP 01/22/17 08:54 01/22/17 08:54 Laboratory Results - last 24 hr 01/22/17 01/22/17 01/22/17 08:54 08:54 08:54 WBC 7.6 RBC 4.06 Hgb 12.2 Hct 37.7 MCV 92.8 MCH 30.1 MCHC 32.4 RDW 15.1 Plt Count 194 MPV 9.3 Sodium 144 Potassium 4.4 Chloride 108 H Carbon Dioxide 28 Anion Gap 8 BUN 25 H Creatinine 1.2 H Creat Clearance w eGFR 42.50 Random Glucose 99 Calcium 9.3 Total Bilirubin 0.2 D AST 56 H D ALT 60 D Alkaline Phosphatase 101 D Total Protein 6.9 Albumin 3.0 L Vitamin B12 TSH 2.24 RPR Titer Nonreactive 01/22/17 08:54 WBC RBC Hgb Hct MCV MCH MCHC RDW Plt Count MPV Sodium Potassium Chloride Carbon Dioxide Anion Gap BUN Creatinine Creat Clearance w eGFR Random Glucose Calcium Total Bilirubin AST ALT Alkaline Phosphatase Total Protein Albumin Vitamin B12 1485 H TSH RPR Titer Impression: 1. CAD, angina pectoris currently stable. 2. Hypertension, presently normotensive. 3. Bronchial asthma 4. COPD 5. Recent UTI 6. S/p mental confusion most likely related to UTI 7. Probably asthmatic bronchitis 8. Hypercholesterolemia 9. Renal insufficiency Recommendations: 1. Continue current cardiac medications. 2. Increase ambulation, may need physiotherapy. 3. Counseled regarding weight reduction and dietary restrictions. 4. Close follow up of renal function Documentation prepared by Faviola Ling, acting as a medical technologist hematology for Micky Hawkins, MD.
[2017-01-22] MEDS: guaiFENesin 200 MG/10 ML 10 ML UNIT-DOSE CUPS PO PRN ×2 (14:23→21:47)
--- NOTE | 2017-01-22 14:39 | PN ---
Progress Note, Physician History of Present Illness: doing well patient still continues to be confused - Current Medication List Current Medications: Active Medications Acetaminophen (Tylenol -) 325 mg PO TID [facility] Last Admin: 01/22/17 14:06 Dose: 325 mg Albuterol Sulfate (Ventolin 0.083% Nebulizer Soln -) 1 amp NEB QIDR [facility] Last Admin: 01/22/17 11:50 Dose: Not Given Ascorbic Acid (Vitamin C -) 500 mg PO DAILY [facility] Last Admin: 01/22/17 11:32 Dose: 500 mg Aspirin (Ecotrin -) 81 mg PO DAILY [facility] Last Admin: 01/22/17 11:31 Dose: 81 mg Cholecalciferol (Vitamin D3 -) 2,000 unit PO DAILY [facility] Last Admin: 01/22/17 11:33 Dose: 2,000 unit Diltiazem HCl (Cardizem Cd -) 240 mg PO DAILY [facility] Last Admin: 01/22/17 11:30 Dose: 240 mg Guaifenesin (Robitussin -) 10 ml PO Q6H PRN PRN Reason: COUGH/CHEST CONGESTION Last Admin: 01/22/17 14:23 Dose: 10 ml Isosorbide Mononitrate (Imdur -) 30 mg PO DAILY [facility] Last Admin: 01/22/17 11:33 Dose: 30 mg Losartan Potassium (Cozaar -) 50 mg PO DAILY [facility] Last Admin: 01/22/17 11:31 Dose: 50 mg Oxycodone HCl (Roxicodone -) 5 mg PO TID [facility] Last Admin: 01/22/17 14:05 Dose: 5 mg Ranitidine HCl (Zantac -) 150 mg PO DAILY [facility] Last Admin: 01/22/17 11:32 Dose: 150 mg - Objective Vital Signs: Vital Signs Temperature 98.8 F 01/22/17 10:00 Pulse Rate 82 01/22/17 10:00 Respiratory Rate 20 01/22/17 10:00 Blood Pressure 130/64 01/22/17 10:00 O2 Sat by Pulse Oximetry (%) 98 01/22/17 09:00 Constitutional: Yes: No Distress, Calm HENT: Yes: Atraumatic Neck: Yes: Supple Cardiovascular: Yes: Regular Rate and Rhythm Respiratory: Yes: Regular, CTA Bilaterally Gastrointestinal: Yes: Normal Bowel Sounds, Soft Musculoskeletal: Yes: WNL Extremities: Yes: WNL Neurological: Yes: Alert, Confusion, Other Psychiatric: Yes: Alert Labs: CBC, BMP 01/22/17 08:54 01/22/17 08:54 Assessment/Plan ams uti plan continue current mgmt rest as per primary team physio
[2017-01-23] MEDS: ALBUTEROL SO4 0.083% IH SOL 2.5 MG/3 ML VIAL.NEB. NEB SCH ×2 (00:05→06:23)
[2017-01-23] MEDS: ACETAMINOPHEN 325 MG TABLET (FP) PO SCH (06:47)
[2017-01-23] MEDS: oxyCODONE HCL 5 MG TABLET PO SCH (06:47)
[2017-01-23 06:58] VITALS: TEMP 97.8
--- NOTE | 2017-01-23 09:29 | DS ---
Physical Examination Vital Signs: Vital Signs Temperature 97.8 F 01/23/17 06:57 Pulse Rate 74 01/23/17 08:30 Respiratory Rate 20 01/23/17 06:57 Blood Pressure 139/76 01/23/17 06:57 O2 Sat by Pulse Oximetry (%) 97 01/23/17 08:30 Findings/Remarks: Admitted with confussion and UTI Known to have ASHD and HTN Constitutional: Yes: Anxious Eyes: Yes: WNL HENT: Yes: WNL Neck: Yes: WNL Cardiovascular: Yes: WNL Respiratory: Yes: WNL, Poor Air Entry Gastrointestinal: Yes: Normal Bowel Sounds ...Rectal Exam: Yes: Deferred Renal/: Yes: WNL Musculoskeletal: Yes: Muscle Weakness Edema: No Peripheral Pulses WNL: Yes Neurological: Yes: Alert Psychiatric: Yes: Alert Labs: CBC, BMP 01/22/17 08:54 01/22/17 08:54 Discharge Summary Reason For Visit: UTI, SUPRAVENTRICULAR TACHYCARDIA, AMS Current Active Problems Altered mental status (Acute) SVT (supraventricular tachycardia) (Acute) UTI (urinary tract infection) (Acute) Condition: Stable - Home Medications Comprehensive Discharge Medication List: Ambulatory Orders Ascorbic Acid [Vitamin C with Barbara Hips] 500 mg PO DAILY 01/18/17 Aspirin [ASA -] 81 mg PO DAILY 01/18/17 Cholecalciferol (Vitamin D3) [Vitamin D3] 2,000 unit PO DAILY 01/18/17 Diazepam [Valium] 10 mg PO Q8H PRN 01/18/17 Diltiazem HCl [Cartia Xt] 240 mg PO DAILY 01/18/17 Isosorbide Mononitrate [Isosorbide Mononitrate ER] 30 mg PO DAILY 01/18/17 Losartan Potassium 50 mg PO DAILY 01/18/17 Methenamine Hippurate [Hiprex [Nf] -] 0.5 tab PO DAILY 01/18/17 Oxycodone HCl/Acetaminophen [Percocet 5-325 mg Tablet] 1 tab PO TID 01/18/17 Ranitidine [Zantac -] 150 mg PO DAILY 01/18/17
[2017-01-23] MEDS: ISOSORBIDE MONONITRATE 30 MG TAB.SR.24H (FP) PO SCH (10:32)
[2017-01-23] MEDS: LOSARTAN POTASSIUM 50 MG TABLET (FP) PO SCH (10:32)
[2017-01-23] MEDS: RANITIDINE HCL 150 MG TABLET (FP) PO SCH (10:32)
[2017-01-23] MEDS: CHOLECALCIFEROL (VITAMIN D3) 1,000 UNIT TABLET (FP) PO SCH (10:32)
[2017-01-23] MEDS: ASCORBIC ACID 500 MG TABLET (FP) PO SCH (10:32)
[2017-01-23] MEDS: ASPIRIN COATED 81 MG TABLET.EC PO SCH (10:32)
[2017-01-23 10:42] VITALS: BP 110/56; PULSE 72
[2017-01-23] MEDS: guaiFENesin 200 MG/10 ML 10 ML UNIT-DOSE CUPS PO PRN (11:31)
== END 2017-01-23 11:41 | DRG 689 ==
LOC: JER 11:58 → JERBED 14:19 → J4W 16:57 → J5S 01-20 11:29
PROVIDERS: ADMIT Internal Medicine; ATTEND Internal Medicine
DX: N39.0 Urinary tract infection, site not specified (principal); G93.41 Metabolic encephalopathy; K55.8 Other vascular disorders of intestine; I47.1 Supraventricular tachycardia; I25.110 Atherosclerotic heart disease of native coronary artery with unstable angina pectoris; E78.5 Hyperlipidemia, unspecified; K63.5 Polyp of colon; J45.909 Unspecified asthma, uncomplicated; E78.00 Pure hypercholesterolemia, unspecified; R44.1 Visual hallucinations; K57.90 Diverticulosis of intestine, part unspecified, without perforation or abscess without bleeding; M48.07 Spinal stenosis, lumbosacral region; N28.9 Disorder of kidney and ureter, unspecified; G89.29 Other chronic pain; I11.9 Hypertensive heart disease without heart failure; K21.9 Gastro-esophageal reflux disease without esophagitis; E55.9 Vitamin D deficiency, unspecified; M54.5 Low back pain; G62.9 Polyneuropathy, unspecified; E66.8 Other obesity; Z68.36 Body mass index [BMI] 36.0-36.9, adult; Z71.3 Dietary counseling and surveillance; G47.33 Obstructive sleep apnea (adult) (pediatric); Z88.0 Allergy status to penicillin; Z87.891 Personal history of nicotine dependence
CPT/HCPCS: 36415; 70450-TC; 71010-TC; 73552-TC-LT; 73560-TC-LT; 73610-TC-LT; 80053; 81003; 81015; 82607; 83605; 83735; 83880; 84100; 84443; 84484; 85025; 85027; 86593; 87040; 87086; 87186; 90670; 93005; 93010; 94640; 97116-GP; 97161-GP; 99284-25

== ENCOUNTER 2017-04-21 15:27 | Inpatient (IN) | payer OTHER, MEDICARE ==
[2017-04-21 15:54] VITALS: BMI 38.2
--- NOTE | 2017-04-21 16:16 | PDOC ---
History of Present Illness <Tabitha Wood - Last Filed: 04/21/17 17:49> - History of Present Illness Initial Comments: 04/21/17 16:30 The patient is an 86 year old female with a history of UTIs, Arrhythmia, CAD, hypertension, hyperlipidemia, COPD, diverticulitis, ischemic colitis who presents for evaluation of SOB. The patient reports a 1 day history of SOB prompting her presentation to the ED today. She states that she has been having intermittent subjective fevers, and chills over the weekend as well. She notes that she was recently discharged from [facility] after rehab following a recent admission for UTI. She denies any chest pain or palpitations, nausea, vomiting, cough, abdominal pain, or changes with urination or bowel movements. <Curt Miller - Last Filed: 04/21/17 18:19> - General Chief Complaint: Palpitations Stated Complaint: DIFFICULTY BREATHING Time Seen by Provider: 04/21/17 15:42 Past History <Tabitha Wood - Last Filed: 04/21/17 17:49> - Past Medical History Asthma: Yes Cardiac Disorders: Yes (ASHD, cardiac arrythmia) COPD: Yes CHF: Yes HTN: Yes Hypercholesterolemia: Yes - Surgical History Abdominal Surgery: Yes (hiatal hernia repair) Orthopedic Surgery: Yes (erendira hip) - Immunization History Immunization Up to Date: Yes - Suicide/Smoking/Psychosocial Hx Smoking Status: No Smoking History: Never smoked Have you smoked in the past 12 months: No Number of Cigarettes Smoked Daily: 0 If you are a former smoker, when did you quit?: many years Hx Alcohol Use: No Drug/Substance Use Hx: No Substance Use Type: None Hx Substance Use Treatment: No <Curt Miller - Last Filed: 04/21/17 18:19> - Past Medical History Allergies/Adverse Reactions: Allergies Allergy/AdvReac Type Severity Reaction Status Date / Time Penicillins Allergy Verified 01/18/17 12:19 Home Medications: Ambulatory Orders Ascorbic Acid [Vitamin C with Barbara Hips] 500 mg PO DAILY 01/18/17 Aspirin [ASA -] 81 mg PO DAILY 01/18/17 Cholecalciferol (Vitamin D3) [Vitamin D3] 5,000 unit PO DAILY 01/18/17 Diltiazem HCl [Cartia Xt] 240 mg PO DAILY 01/18/17 Isosorbide Mononitrate [Isosorbide Mononitrate ER] 30 mg PO DAILY 01/18/17 Losartan Potassium 50 mg PO DAILY 01/18/17 Oxycodone HCl/Acetaminophen [Percocet 5-325 mg Tablet] 1 tab PO TID 01/18/17 Ranitidine [Zantac -] 150 mg PO DAILY 01/18/17 Albuterol 0.083% Nebulizer Madhavi [Ventolin 0.083% Nebulizer Soln -] 1 neb NEB Q6H 04/21/17 Albuterol Sulfate [Proair Respiclick] 90 mcg IH DAILY 04/21/17 Promethazine HCl [Phenergan Liquid -] 5 ml PO TID 04/21/17 Review of Systems - Review of Systems Comments:: 04/21/17 16:52 Constitutional: Fevers, chills. No fatigue, malaise HEENT: No Rhinorrhea, nasal congestion, visual changes Cardiovascular: No chest pain, syncope, palpitations, lightheadedness Respiratory: SOB. No Cough, Hemoptysis, Gastrointestinal: No Abdominal pain, Nausea, Vomiting, Constipation, Diarrhea, Melena Genitourinary: No Dysuria, Frequency, Urgency, Hesitancy, Hematuria, Flank pain Musculoskeletal: No Myalgia, arthralgia Skin: No rashes, itching, bruising, pallor Neurologic: No Headache, Dizziness, Numbness, Weakness, or Tingling <Curt Miller - Last Filed: 04/21/17 18:19> *Physical Exam - Vital Signs Last Vital Signs Temp Pulse Resp BP Pulse Ox 98.5 F 108 H 22 118/91 96 04/21/17 15:51 04/21/17 15:51 04/21/17 15:51 04/21/17 15:51 04/21/17 15:51 <Tabitha Wood - Last Filed: 04/21/17 17:49> - Vital Signs Last Vital Signs Temp Pulse Resp BP Pulse Ox 98.5 F 108 H 22 118/91 96 04/21/17 15:51 04/21/17 15:51 04/21/17 15:51 04/21/17 15:51 04/21/17 15:51 - Physical Exam Comments: 04/21/17 16:53 General Appearance: Nourished. No Apparent Distress HEENT: EOMI, SEB. No Pharyngeal Erythema, Tonsillar Exudate, Tonsillar Erythema Neck: No Cervical Lymphadenopathy Respiratory/Chest: Lungs Clear, Normal Breath Sounds. Bibasilar crackles noted on auscultation. No Rhonchi, Wheezing Cardiovascular: Irregularly irregular. No Murmur, Gallops, Rubs Gastrointestinal/Abdominal: Normal Bowel Sounds, Soft. No Guarding, Rebound, Tenderness Musculoskeletal: No CVA Tenderness Extremity: Normal Capillary Refill Integumentary: Normal Color, Dry, Warm Neurologic: Fully Oriented, Alert, Normal Mood/Affect, Normal Response, <Curt Miller - Last Filed: 04/21/17 18:19> Heart Score/ECG Review #1 ECG reviewed & interpreted by me at: 17:57 (Afib with RVR) General ECG Interpretation: Normal Intervals, No acute ischemic changes <Curt Miller - Last Filed: 04/21/17 18:19> ED Treatment Course - LABORATORY CBC & Chemistry Diagram: 04/21/17 16:40 04/21/17 16:35 - ADDITIONAL ORDERS Additional order review: Laboratory Results 04/21/17 16:35 Sodium 138 Potassium 4.9 Chloride 105 Carbon Dioxide 23 Anion Gap 10 BUN 56 H D Creatinine 2.8 H D Creat Clearance w eGFR 15.98 Random Glucose 99 Calcium 8.3 L Total Bilirubin 0.3 D AST 36 D ALT 47 D Alkaline Phosphatase 84 Creatine Kinase 108 Troponin I 0.06 H B-Natriuretic Peptide 8686.66 H Total Protein 6.8 Albumin 2.5 L TSH 1.93 D 04/21/17 16:40 RBC 4.39 MCV 88.6 MCHC 32.8 RDW 14.2 MPV 8.9 Neutrophils % 79.3 D Lymphocytes % 9.3 D Monocytes % 7.0 Eosinophils % 4.0 Basophils % 0.4 - Medications Given in the ED: ED Medications Discontinued Medications Generic Name Dose Route Start Last Admin Trade Name Freq PRN Reason Stop Dose Admin Diltiazem HCl 10 mg 04/21/17 16:17 04/21/17 16:19 Cardizem Injection - IVPUSH 04/21/17 16:18 10 mg ONCE ONE Administration Furosemide 20 mg 04/21/17 17:09 04/21/17 17:19 Lasix Injection - IVPUSH 04/21/17 17:10 20 mg ONCE ONE Administration <Tabitha Wood - Last Filed: 04/21/17 17:49> - LABORATORY CBC & Chemistry Diagram: 04/21/17 16:40 04/21/17 16:35 - RADIOLOGY Radiology Studies Ordered: Category Date Time Status CHEST X-RAY PORTABLE* [RAD] Stat Radiology 04/21/17 15:55 Taken <Curt Miller - Last Filed: 04/21/17 18:19> Medical Decision Making - Medical Decision Making 04/21/17 17:[address] Cho. [phone] 04/21/17 17:[address] Hawkins. [phone] <Tabitha Wood - Last Filed: 04/21/17 17:49> - Medical Decision Making 04/21/17 16:56 The patient is an 86 year old female with a history of UTIs, Arrhythmia, CAD, hypertension, hyperlipidemia, COPD, diverticulitis, ischemic colitis who presents for evaluation of SOB found to be in afib with RVR here in the ED. Her symptoms of SOB are likely due to her afib with RVR. We will send a cbc, cmp, troponin, bnp, chest plain film to evaluate for other etiologies including but not limited to acs, pneumonia, chf exacerbation, infectious, or metabolic derangement. We will treat her with diltiazem in the ED for rate control. The patient will require admission for further management and we will contact Dr. Browne ([employer]) and Dr. Cho ([facility]) after her labs have resulted. 04/21/17 17:36 cbc demonstrated a wbc of 14.5. cmp was unremarkable. Troponin was 0.06. BNP was elevated to 8600+. Chest plain film demonstrated pulmonary congestion. We discussed the case with Dr. Cho who accepted the patient for admission. 04/21/17 18:17 We discussed the case with Dr. Hawkins who has been made aware of the case and recommended heprinizing the patient as this is likely new onset afib. We appreciate the consultation. <Curt Miller - Last Filed: 04/21/17 18:19> *DC/Admit/Observation/Transfer <Tabitha Wood - Last Filed: 04/21/17 17:49> - Discharge Dispostion Admit: Yes <Curt Miller - Last Filed: 04/21/17 18:19> Diagnosis at time of Disposition: Atrial fibrillation with RVR - Discharge Dispostion Condition at time of disposition: Stable - Referrals Referrals: Ira Cho MD [Primary Care Provider] -
[2017-04-21] MEDS ORDERED: dilTIAZem HCL 50 MG/10 ML - 10 ML VIAL IVPUSH ONE (16:17)
[2017-04-21] MEDS ORDERED: dilTIAZem HCL 125 MG/25 ML - 25 ML VIAL ONE (16:21)
[2017-04-21 16:46] LABS: BASOPHIL 0.4 % (0-2.0); MCHC 32.8 g/dl (32.0-36.0); MEAN CELL VOLUME 88.6 fl (80-96); MEAN PLT VOLUME 8.9 fl (7.5-11.1); NEUTROPHILS 79.3 % (42.8-82.8); PLATELET COUNT 324 K/MM3 (134-434); RDW 14.2 % (11.6-15.6); WHITE BLOOD COUNT 14.5 K/mm3 (4.0-10.0)
--- NOTE | 2017-04-21 16:53 | PDOC ---
Attending Attestation - Resident Resident Name: Kiko Millerel - ED Attending Attestation I have performed the following: I have examined & evaluated the patient, The case was reviewed & discussed with the resident, I agree w/resident's findings & plan, Exceptions are as noted - HPI HPI: 04/21/17 16:50 86-year-old female with history of atrial fibrillation presents with progressive shortness of breath over the last 3-4 days, no palpitations or chest pain. No cough or fevers or chills. No changes in her medications, was started on antibiotic for acute on chronic UTI. - Physicial Exam PE: 04/21/17 16:51 Heart rate 120 to 1:30, blood pressure 120 to 1:30 systolic, O2 sat wnl. Alert and speaking full sentences Irregularly irregular tachycardia Bibasilar crackles Trace lower extremity edema - Critical Care Time Total Critical Care Time: 30 Critical Care Statement: The care of this patient involved high complexity decision making to prevent further life threatening deterioration of the patient 's condition and/or to evaluate & treat vital organ system(s) failure or risk of failure. - Medical Decision Making 04/21/17 16:52 Patient seen and evaluated with the resident. I agree with the overall evaluation, assessment, and management with the following summary of visit: 86-year-old female with history of atrial fibrillation presents with progressive dyspnea in the setting of atrial fibrillation with rapid ventricular response. Placed on monitor, EKG showed A. fib with RVR but no acute ischemia Labs including troponin Chest x-ray Rate control with IV diltiazem, diuresis with Lasix Telemetry admission
[2017-04-21] MEDS ORDERED: FUROSEMIDE 40 MG/4 ML INJECTABLE VIAL IVPUSH ONE (17:09)
[2017-04-21] MEDS ORDERED: FUROSEMIDE 40 MG/4 ML INJECTABLE VIAL ONE (17:17)
[2017-04-21 17:19] LABS: ALBUMIN 2.5 g/dl (3.4-5.0); ANION GAP 10 (8-16); BILIRUBIN,TOTAL 0.3 mg/dL (0.2-1.0); CALCIUM 8.3 mg/dL (8.5-10.1); CO2 23 mmol/L (21-32); CREATININE 2.8 mg/dL (0.55-1.02); GLUCOSE,RANDOM 99 mg/dL (74-106); SGPT/ALT 47 U/L (12-78); TOT PROT 6.8 g/dl (6.4-8.2)
[2017-04-21 17:28] LABS: ALK PHOS 84 U/L (45-117); CPK 108 IU/L (26-192); THYROID STIMULATING HORMONE 1.93 uIU/ml (0.358-3.74); TROPONIN I 0.06 ng/ml (0.00-0.05)
[2017-04-21 17:30] LABS: SGOT/AST 36 U/L (15-37)
[2017-04-21] MEDS ORDERED: dilTIAZem HCL 30 MG TABLET (FP) PO ONE (17:56)
[2017-04-21] MEDS ORDERED: dilTIAZem HCL 30 MG TABLET (FP) ONE (18:49)
[2017-04-21 18:57] LABS: INR 1.14 (0.82-1.09); PROTHROMBIN TIME (PATIENT) 12.9 SEC (9.98-11.88)
[2017-04-21 19:00] LABS: ACTIVATED PTT 26.1 SECONDS (26.9-34.4)
[2017-04-21] MEDS ORDERED: HEPARIN INFUSION - 500 ML IVPB ONE (20:24)
[2017-04-21] MEDS ORDERED: HEPARIN NA (PORCINE) 5,000 UNITS/ML 1ML VIAL ONE (20:24)
[2017-04-21] MEDS: HEPARIN NA (PORCINE) 5,000 UNITS/ML 1ML VIAL IVPUSH PRN (20:40)
[2017-04-21] MEDS: HEPARIN INFUSION - 500 ML IVPB SCH (20:40)
[2017-04-21 23:12] LABS: URINE APPEARANCE CLOUDY; URINE BILIRUBIN NEGATIVE (NEGATIVE); URINE BLOOD NEGATIVE (NEGATIVE); URINE COLOR AMBER; URINE GLUCOSE (UA) NEGATIVE (NEGATIVE); URINE KETONE NEGATIVE (NEGATIVE); URINE NITRITE NEGATIVE (NEGATIVE); URINE PROTEIN NEGATIVE (NEGATIVE); URINE UROBILINOGEN NEGATIVE mg/dL (0.2-1.0)
[2017-04-22 08:30] LABS: INR 1.16 (0.82-1.09); PROTHROMBIN TIME (PATIENT) 13.1 SEC (9.98-11.88)
[2017-04-22 08:39] LABS: BASOPHIL 0.4 % (0-2.0); EOSINOPHIL 12.8 % (0-4.5); MCH 28.7 pg (25.7-33.7); MCHC 32.2 g/dl (32.0-36.0); MEAN PLT VOLUME 9.1 fl (7.5-11.1); NEUTROPHILS 65.3 % (42.8-82.8); PLATELET COUNT 283 K/MM3 (134-434); RDW 14.1 % (11.6-15.6); WHITE BLOOD COUNT 13.8 K/mm3 (4.0-10.0)
[2017-04-22] MEDS ORDERED: HEPARIN NA (PORCINE) 5,000 UNITS/ML 1ML VIAL ONE (08:54)
[2017-04-22] MEDS: HEPARIN NA (PORCINE) 5,000 UNITS/ML 1ML VIAL IVPUSH PRN (09:00)
[2017-04-22 09:16] LABS: ALBUMIN 2.1 g/dl (3.4-5.0); ANION GAP 11 (8-16); CALCIUM 7.9 mg/dL (8.5-10.1); CO2 23 mmol/L (21-32); CREATININE 2.6 mg/dL (0.55-1.02); GLUCOSE,RANDOM 95 mg/dL (74-106); SGOT/AST 29 U/L (15-37); SGPT/ALT 38 U/L (12-78); TOT PROT 5.6 g/dl (6.4-8.2)
[2017-04-22 09:17] LABS: URINE LEUK ESTERASE Negative (NEGATIVE)
[2017-04-22 09:19] LABS: ALK PHOS 64 U/L (45-117); BILIRUBIN,TOTAL 0.3 mg/dL (0.2-1.0); CPK 54 IU/L (26-192); TROPONIN I 0.05 ng/ml (0.00-0.05)
[2017-04-22] MEDS ORDERED: dilTIAZem HCL 50 MG/10 ML - 10 ML VIAL IVPUSH ONE (10:31)
--- NOTE | 2017-04-22 10:51 | EKG ---
Test Reason : Blood Pressure : / mmHG Vent. Rate : 134 BPM Atrial Rate : 268 BPM P-R Int : 000 ms QRS Dur : 106 ms QT Int : 274 ms P-R-T Axes : 000 -58 102 degrees QTc Int : 409 ms atrial rhythm is most likely atrial flutter a reentrant tachycardia LEFT AXIS DEVIATION ABNORMAL QRS-T ANGLE, CONSIDER PRIMARY T WAVE ABNORMALITY ABNORMAL ECG WHEN COMPARED WITH ECG OF 21-APR-2017 19:06, RHYTHM HAS CHANGED ABOVE QRS AXIS SHIFTED LEFT NON-SPECIFIC CHANGE IN ST SEGMENT IN INFERIOR LEADS REPEAT EKG IF CLINICALLY INDICATED Confirmed by ANAMARIA BOLAÑOS MD ([id number]) on 04/22/2017 10:51:25 AM Referred By: Confirmed By:ANAMARIA BOLAÑOS MD
[2017-04-22] MEDS: DILTIAZEM INJECTION 125 MG in DEXTROSE 5%-WATER - 100 ML IVPB SCH ×2 (11:00→20:30)
[2017-04-22] MEDS ORDERED: PIPERACILLIN/TAZOB 3.375 GM 50 ML IVPB ONE (11:00)
[2017-04-22] MEDS ORDERED: VANCOMYCIN 1 GRAM (PRE-DOCKED) 250 ML IVPB ONE (11:43)
[2017-04-22] MEDS ORDERED: VANCOMYCIN 1,000 MG in DEXTROSE 5%-WATER - 250 ML IVPB ONE (11:45)
--- NOTE | 2017-04-22 11:52 | CONS ---
DATE OF CONSULTATION: DATE OF DICTATION: 04/22/2017 CONSULTATION REQUESTED BY: Ira Cho MD LOCATION: Emergency room. CHIEF COMPLAINT: Increasing shortness of breath. HISTORY OF PRESENT ILLNESS: The patient is an 86-year-old female with a longstanding history of hypertension, hypertensive cardiovascular disease, coronary artery disease, angina pectoris, bronchial asthma, history of chronic bronchitis, chronic obstructive pulmonary disease, peripheral neuropathy, extensive osteoarthritis, hypercholesterolemia, gastroesophageal reflux disease, and history of chronic UTI. Patient states that she started experiencing increasing shortness of breath over the past weekend. She has chronic cough but noticed that the cough became more pronounced and frequent and was nonproductive. She did have low-grade temperature. Patient states that she had several episodes of mild anterior pressure-like chest discomfort and on 1 occasion she took sublingual nitroglycerin with prompt relief. Symptoms were nonradiating and nonpleuritic in nature. She denies having palpitations. One episode of lightheadedness. No history of presyncope or syncope. On admission, patient was found to be in a rapid and irregular rhythm and was given 10 mg of IV diltiazem and also received IV diuretics. PAST HISTORY: 1. As mentioned in the history of present illness. 2. History of ischemic colitis. SURGICAL HISTORY: 1. Partial colectomy for diverticulitis. 2. Status post bilateral hip replacement in 2001 and 2003. 3. Status post hysterectomy, 1978, along with an appendectomy. 4. History of cystoscopy. SOCIAL HISTORY: She is a . Retired from [employer]. Had 2 sons and 4 daughters. Both her sons are ; 1 of cancer and another 1 was stabbed. One of her daughters of asthmatic arrest. Other children apparently are healthy. FAMILY HISTORY: Father is not known to the patient. Mother at age 92, apparently had hypertension. She was the only child. MEDICATIONS: As recorded on her last visit to the office were as follows: 1. Furosemide 40 mg p.o. daily. 2. Losartan 50 mg p.o. daily. 3. Cartia XT 240 mg p.o. daily. 4. Isosorbide mononitrate 30 mg p.o. daily. 5. Atorvastatin 10 mg p.o. daily. 6. Diazepam 10 mg p.o., t.i.d. p.r.n. 7. Prevacid 30 mg p.o. daily. 8. ProAir 2 inhalations q.i.d. p.r.n. 9. Promethazine 6.25 mg, 2 teaspoons p.o. daily. 10. Oxycodone 5/325 mg t.i.d. p.r.n. 11. Meloxicam 15 mg p.o. daily. 12. Vitamin C 500 mg p.o. daily. CURRENT MEDICATIONS: Heparin as per protocol. REVIEW OF SYSTEMS: Constitutional: History of sweating. No history of chills. History of low-grade fever, no history of unintentional weight loss. HEENT: History of recent mild headaches. History of decrease in vision related to cataracts. No history of diplopia. No history of epistaxis, no history of tinnitus history or deafness. Cardiovascular: See history of present illness. Respiratory: See history of present illness, no history of hemoptysis, no history of tuberculosis. Gastrointestinal: No history of nausea, vomiting, melena, or hematemesis. No history of abdominal pain or discomfort. Denies any change in bowel habits. Central Nervous System: No history of seizures, syncope, or focal weakness. History of recent lightheadedness. Genitourinary: History of chronic urinary tract infection, no history of hematuria. Musculoskeletal: History of generalized osteoarthritis, history of chronic low back syndrome. Endocrine: No history of polyuria or polydipsia, no history of intolerance to cold or warm weather. Hematological: No history of bleeding, ecchymosis, or anemia. PHYSICAL EXAMINATION: General: An 86-year-old female resting comfortably. There was no pallor or cyanosis noted, no clubbing or jaundice. Vital Signs: Blood pressure 96/73 mmHg, pulse 128 beats per minute and regular, respirations 20 per minute, oxygen saturation 94% on 5 L of oxygen, temperature 98 degrees Fahrenheit. Neck: Supple, no jugular venous distention, carotids were equal, upstrokes were normal, no bruits were appreciated, and no thyromegaly was present. Heart: PMI was not in the 5th intercostal space. No heaves or thrills. Heart sounds were distant, no murmur or gallops were heard. Lungs: Decreased breath sounds at both bases. No extraneous sounds were heard. Chest: Normal AP diameter, expansion grossly appeared to be symmetrical. Abdomen: Obese, soft, and nontender. No hepatosplenomegaly or palpable masses were appreciated. Bowel sounds were distant. No bruits were heard. Extremities: No calf tenderness or dependent edema. Femoral pulses were 2+. Dorsalis pedis and posterior tibial pulses were 1+. LABORATORY DATA: ECG of April 21, 1906 hours: Atrial rhythm is uncertain, possibility of atrial fibrillation is raised in the presence of an irregular and rapid ventricular response. Slow R-wave progression, V1 to V4, with terminal S-waves in V5 in association with right axis deviation compatible with right ventricular preponderance. ST and T-wave abnormalities in the inferolateral leads. 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 Compared to tracing of April 21, 2017, rhythm change as above. There is a shift in frontal QRS vector to the left. T waves are now upright in lead III, aVF. There is a loss of R wave in V5 and V6 which may partly be related to technical and/or positional factor or the appearance of a left anterior hemiblock. X-ray, chest: Since January 18, 2017, there are progressive congestive changes with possible infiltrate and fluid at the left base. Followup recommended. Lab data: CBC: WBC count on April 21, 2017, was 14,500 and repeat on April 22 is 13,800. Hemoglobin on April 22, 2017, 11.4 g/dL, platelet count 283,000. Differential revealed elevated eosinophils. Chemistry on April 21: Sodium 138, potassium 4.9, chloride 105, CO2 23, BUN 56, creatinine 2.8. CK 108. Troponin 0.06. BNP 8686.66. Repeat chemistry on April 22: Sodium 141, potassium 4.4, chloride 107, CO2 23, BUN 57, creatinine 2.6. BNP 5558.76. Troponin 0.05. TSH was 1.93. Urinalysis was reported to be negative. IMPRESSION: 1. Congestive heart failure, [place] Heart Classification 3. Etiology: a. Secondary to recent upper respiratory tract infection/bronchitis. b. New onset of atrial arrhythmias. 2. Hypertension, hypertensive cardiovascular disease, currently normotensive. 3. Coronary artery disease, progressive angina pectoris. 4. Chronic obstructive pulmonary disease. 5. Recent upper respiratory tract infection/acute bronchitis versus pneumonia. 6. Chronic kidney disease. 7. Peripheral neuropathy. 8. Gastroesophageal reflux disease. 9. History of bronchial asthma/chronic bronchitis. 10. Generalized osteoarthritis. 11. History of chronic urinary tract infection. 12. Morbid obesity. RECOMMENDATIONS: 1. IV diltiazem followed by diltiazem drip in view of persistent and rapid heart rate. 2. Continue diuretics. 3. Bedside echocardiogram. 4. Followup ECG and cardiac enzymes. 5. Followup x-ray, chest. 6. Resume oral isosorbide. 7. Consider bronchodilators. 8. Monitor on telemetry. PROGNOSIS: Guarded. Thank you for your referral. Yours sincerely. ANAMARIA BOLAÑOS M.D. [id number]
--- NOTE | 2017-04-22 11:54 | EKG ---
Test Reason : Blood Pressure : / mmHG Vent. Rate : 118 BPM Atrial Rate : 170 BPM P-R Int : 000 ms QRS Dur : 102 ms QT Int : 302 ms P-R-T Axes : 000 -17 023 degrees QTc Int : 423 ms POOR DATA QUALITY, INTERPRETATION MAY BE ADVERSELY AFFECTED ATRIAL FIBRILLATION WITH RAPID VENTRICULAR RESPONSE NONSPECIFIC T WAVE ABNORMALITY ABNORMAL ECG WHEN COMPARED WITH ECG OF 18-JAN-2017 12:14, ATRIAL FIBRILLATION HAS REPLACED SINUS RHYTHM ST NO LONGER DEPRESSED IN LATERAL LEADS NONSPECIFIC T WAVE ABNORMALITIES INLATERAL LEADS. REPEAT EKG IF CLINICALLY INDICATED Confirmed by ANAMARIA BOLAÑOS MD ([id number]) on 04/22/2017 11:54:25 AM Referred By: Confirmed By:ANAMARIA BOLAÑOS MD
--- NOTE | 2017-04-22 11:59 | EKG ---
Test Reason : Blood Pressure : / mmHG Vent. Rate : 118 BPM Atrial Rate : 163 BPM P-R Int : 000 ms QRS Dur : 098 ms QT Int : 336 ms P-R-T Axes : 000 082 -51 degrees QTc Int : 470 ms ATRIAL FIBRILLATION WITH RAPID VENTRICULAR RESPONSE ABNORMAL QRS-T ANGLE, CONSIDER PRIMARY T WAVE ABNORMALITY ABNORMAL ECG WHEN COMPARED WITH ECG OF 21-APR-2017 15:45, QUESTIONABLE CHANGE IN QRS AXIS RHYTHM CHANGED ABOVE CLINICAL CORRELATION IS RECOMMENDED Confirmed by ANAMARIA BOLAÑOS MD ([id number]) on 04/22/2017 11:58:40 AM Referred By: Confirmed By:ANAMARIA BOLAÑOS MD
[2017-04-22] MEDS ORDERED: AZTREONAM 0.5 GM in DEXTROSE 5%-WATER - 100 ML IVPB ONE (12:00)
--- NOTE | 2017-04-22 15:18 | CON.ID ---
Consult Consult Specialty:: infectious diseases Referred by:: Reason for Consultation:: pneumonia,sob - History of Present Illness Chief Complaint: increased heart rate History of Present Illness: 86 year old female with a history of UTIs, Arrhythmia, CAD, hypertension, hyperlipidemia, COPD, diverticulitis, ischemic colitis admitted for SOB. The patient reports a 1 day history of SOB She states that she has been having intermittent subjective fevers, and chills over the weekend as well. She notes that she was recently discharged from [facility] [place] after rehab following a recent admission for UTI. She denies any chest pain or palpitations, nausea, vomiting , cough, abdominal pain, or changes with urination or bowel movements. according to the patient she has had multiple episodes of uti - History Source History Provided By: Patient, Family Member Limitations to Obtaining History: No Limitations - Past Medical History Cardio/Vascular: Yes: CAD, HTN, Hyperlipdemia Pulmonary: Yes: COPD Gastrointestinal: Yes: Diverticulitis, Diverticulosis, Other (ischemic colitis, h/o colon polyps) - Past Surgical History Past Surgical History: Yes: None, Appendectomy, Colectomy (partial colectomy for perforation from ? diverticulitis/ischemic colitis), Hysterectomy (JW/BSO) - Alcohol/Substance Use Hx Alcohol Use: No History of Substance Use: reports: None - Smoking History Smoking history: Never smoked Have you smoked in the past 12 months: No Aproximately how many cigarettes per day: 0 If you are a former smoker, when did you quit?: many years - Social History Usual Living Arrangement: With Child ADL: Family Assistance History of Recent Travel: No Home Medications - Allergies Allergies/Adverse Reactions: Allergies Allergy/AdvReac Type Severity Reaction Status Date / Time Penicillins Allergy Verified 01/18/17 12:19 - Home Medications Home Medications: Ambulatory Orders Ascorbic Acid [Vitamin C with Barbara Hips] 500 mg PO DAILY 01/18/17 Aspirin [ASA -] 81 mg PO DAILY 01/18/17 Cholecalciferol (Vitamin D3) [Vitamin D3] 5,000 unit PO DAILY 01/18/17 Diltiazem HCl [Cartia Xt] 240 mg PO DAILY 01/18/17 Isosorbide Mononitrate [Isosorbide Mononitrate ER] 30 mg PO DAILY 01/18/17 Losartan Potassium 50 mg PO DAILY 01/18/17 Ranitidine [Zantac -] 150 mg PO DAILY 01/18/17 Albuterol 0.083% Nebulizer Madhavi [Ventolin 0.083% Nebulizer Soln -] 1 neb NEB Q6H 04/21/17 Albuterol Sulfate [Proair Respiclick] 90 mcg IH DAILY 04/21/17 Promethazine HCl [Phenergan Liquid -] 10 ml PO TID 04/21/17 Nitrofurantoin Macrocrystal [Nitrofurantoin] 100 mg PO BID 04/22/17 Oxycodone HCl [Roxicodone -] 5 mg PO Q6H PRN 04/22/17 Family Disease History - Family Disease History Family Disease History: CA: Son (colon ca) Review of Systems - Review of Systems Constitutional: reports: No Symptoms Eyes: reports: No Symptoms HENT: reports: No Symptoms Neck: reports: No Symptoms Cardiovascular: reports: Palpitations, Shortness of Breath Respiratory: reports: Cough, SOB, SOB on Exertion Genitourinary: reports: No Symptoms Musculoskeletal: reports: No Symptoms Integumentary: reports: No Symptoms Neurological: reports: No Symptoms Endocrine: reports: No Symptoms Hematology/Lymphatic: reports: No Symptoms Psychiatric: reports: No Symptoms Physical Exam Vital Signs: Vital Signs Temperature 98.0 F 04/22/17 08:40 Pulse Rate 112 H 04/22/17 14:29 Respiratory Rate 20 04/22/17 14:29 Blood Pressure 100/71 04/22/17 14:29 O2 Sat by Pulse Oximetry (%) 95 04/22/17 14:29 Constitutional: Yes: No Distress, Anxious, Obese Eyes: Yes: Conjunctiva Clear HENT: Yes: Atraumatic, Normocephalic Neck: Yes: Supple, Trachea Midline Cardiovascular: Yes: Tachycardia, Pulse Irregular, Other Respiratory: Yes: On Nasal O2, Poor Air Entry, Other (crackles,decreased air entry at the bases) Gastrointestinal: Yes: Normal Bowel Sounds, Soft Musculoskeletal: Yes: WNL Extremities: Yes: WNL Neurological: Yes: Alert, Oriented Psychiatric: Yes: Alert, Oriented Labs: CBC, BMP 04/22/17 08:20 04/22/17 08:20 Imaging - Results Chest X-ray: Report Reviewed, Image Reviewed Assessment/Plan patient evaluated and seen i suspect patient has pneumonia pneumonia tachy afib sob fever plan will give patient azactam and vanco resp support rest as per primary team
[2017-04-22] MEDS ORDERED: PIPERACILLIN/TAZOB 3.375 GM/50 ML PRE-DOCKED IVPB SCH (18:00)
[2017-04-22] MEDS ORDERED: AZTREONAM 0.5 GM in DEXTROSE 5%-WATER - 50 ML IVPB SCH (18:00)
[2017-04-22] MEDS: oxyCODONE HCL 5 MG TABLET PO PRN (18:54)
[2017-04-22] MEDS: HEPARIN INFUSION - 500 ML IVPB SCH (19:00)
[2017-04-22] MEDS ORDERED: diazePAM 5 MG TABLET PO PRN (19:15)
[2017-04-22] MEDS: CLINDAMYCIN HCL 150 MG CAPSULE (FP) PO SCH (23:43)
[2017-04-23] MEDS: HEPARIN INFUSION - 500 ML IVPB SCH ×3 (00:52→13:36)
[2017-04-23] MEDS ORDERED: HEPARIN NA (PORCINE) 5,000 UNITS/ML 1ML VIAL IVPUSH PRN (01:33)
[2017-04-23] MEDS: AZTREONAM 0.5 GM in DEXTROSE 5%-WATER - 50 ML IVPB SCH ×3 (01:40→17:18)
[2017-04-23] MEDS: oxyCODONE HCL 5 MG TABLET PO PRN ×4 (01:51→23:09)
[2017-04-23] MEDS: DILTIAZEM INJECTION 125 MG in DEXTROSE 5%-WATER - 100 ML IVPB SCH ×2 (05:16→18:01)
[2017-04-23] MEDS: CLINDAMYCIN HCL 150 MG CAPSULE (FP) PO SCH ×4 (05:52→23:06)
[2017-04-23] MEDS: RANITIDINE HCL 150 MG TABLET (FP) PO SCH (09:55)
[2017-04-23] MEDS: ASCORBIC ACID 500 MG TABLET (FP) PO SCH (09:55)
[2017-04-23] MEDS: LOSARTAN POTASSIUM 50 MG TABLET (FP) PO SCH (09:55)
[2017-04-23] MEDS: ASPIRIN 81 MG CHEWABLE TABLETS PO SCH (09:55)
[2017-04-23] MEDS: CHOLECALCIFEROL (VITAMIN D3) 1,000 UNIT TABLET (FP) PO SCH (09:55)
[2017-04-23] MEDS: ISOSORBIDE MONONITRATE 30 MG TAB.SR.24H (FP) PO SCH (09:55)
--- NOTE | 2017-04-23 10:15 | HP ---
DATE OF ADMISSION: DATE OF DICTATION: 04/23/2017 HISTORY OF PRESENT ILLNESS: This is an 86-year-old female with a longstanding history of cardiovascular disease, congenital bronchial asthma, obstructive pulmonary disease, who was recently admitted to [facility] for about a month. After that, she was discharged home with her family care. Came to emergency room with complaints of short of breath. She was noted to have new onset of atrial fibrillation. Was evaluated by Cardiology and was started on IV diltiazem. Heart rate came down. Her chest x-ray also showed CHF and a possible pneumonia. Evaluated by ID. She is on IV antibiotic. This morning, patient is feeling better. PHYSICAL EXAMINATION:Vital Signs: BP 110/80, pulse 88, irregular. HEENT: Unremarkable. Lungs: A few basilar rales present. Heart: S1, S2 normal. No S3, S4. Abdomen: Soft. Extremities: Legs - No edema. Neurologic: Grossly normal. LABORATORY REPORTS: WBC 13.8, hemoglobin 11.4, hematocrit 35, platelets 283. Chemistry: Sodium 138, potassium 4.9, chloride 105, CO2 23, BUN 56, creatinine 2.8. Her B peptide is [id number]. IMPRESSION: 1. New onset of atrial fibrillation. 2. Congestive heart failure. 3. Pneumonia. 4. Atherosclerotic heart disease. PLAN: Continue telemetry care. Follow up with Dr. Hawkins, Cardiology, and , ID. TOD MORA M.D. [id number]
[2017-04-23] MEDS ORDERED: PT OWN MED DRAWER 7, Y5N ONE ×4 (11:36→23:04)
--- NOTE | 2017-04-23 16:10 | PN ---
Progress Note (short form) - Note Progress Note: 86 year AA female admitted with shortness of breath and chest discomfort. History of CAD angina pectoris, asthmatic bronchitis, COPD and hypertension. Found to have supraventricular tachycardia probably atrial flutter with rapid ventricular response. Feels better, minimal SOB, intermittent cough, no expectoration. Periods of rapid ventricular response. Active Medications Generic Name Dose Route Start Last Admin Trade Name Freq PRN Reason Stop Dose Admin Albuterol Sulfate 1 amp 04/22/17 15:50 Ventolin 0.083% Nebulizer Soln - NEB Q6H PRN SHORT OF BREATH/WHEEZING Ascorbic Acid 500 mg 04/23/17 10:00 04/23/17 09:55 Vitamin C - PO 500 mg DAILY [facility] Administration Aspirin 81 mg 04/23/17 10:00 04/23/17 09:55 Asa - PO 81 mg DAILY [facility] Administration Cholecalciferol 5,000 unit 04/23/17 10:00 04/23/17 09:55 Vitamin D3 - PO 5,000 unit DAILY [facility] Administration Clindamycin HCl 300 mg 04/23/17 00:00 04/23/17 13:36 Cleocin - PO 300 mg Q6HPO [facility] Administration Diazepam 5 mg 04/22/17 19:15 04/22/17 21:56 Valium - PO 5 mg HS PRN Administration Heparin Sodium (Porcine) 5,000 unit 04/21/17 19:11 04/22/17 09:00 Heparin - IVPUSH 5,000 unit PRN PRN Administration Heparin Heparin Sodium (Porcine) 1,000 unit 04/23/17 01:33 04/23/17 01:41 Heparin - IVPUSH 1,000 unit PRN PRN Administration Heparin Sodium/Dextrose 500 mls @ 20 mls/hr 04/21/17 19:15 04/23/17 13:36 Heparin Infusion - IVPB 27 mls/hr TITR MALIK Administration Protocol 1,000 UNITS/HR Diltiazem HCl 125 mg/ Dextrose 125 mls @ 5 mls/hr 04/22/17 11:00 04/23/17 05:16 IVPB 10 mls/hr TITR MALIK Administration Protocol 5 MG/HR Aztreonam 0.5 gm/ Dextrose 50 mls @ 100 mls/hr 04/23/17 02:00 04/23/17 09:56 IVPB 100 mls/hr Q8H-IV MALIK Administration Protocol Isosorbide Mononitrate 30 mg 04/23/17 10:00 04/23/17 09:55 Imdur - PO 30 mg DAILY [facility] Administration Losartan Potassium 50 mg 04/23/17 10:00 04/23/17 09:55 Cozaar - PO 50 mg DAILY [facility] Administration Oxycodone HCl 5 mg 04/22/17 18:32 04/23/17 09:54 Roxicodone - PO 5 mg Q6H PRN Administration PAIN Ranitidine HCl 150 mg 04/23/17 10:00 04/23/17 09:55 Zantac - PO 150 mg DAILY [facility] Administration 86 year pld AA female in no acute distress, no pallor, cyanosis, clubbing or jaundice. Last Vital Signs Temp Pulse Resp BP Pulse Ox 98.7 F 66 20 97/54 94 L 04/23/17 14:00 04/23/17 14:00 04/23/17 12:00 04/23/17 14:00 04/23/17 09:00 NECK: Supple, No JVD or +ve HJR. carotids 2+, no bruits. HEART: Distant sounds,no murmur or gallops heard. LUNGS: Clear on auscultation, decreased breath sounds at the bases. ABDOMEN: Soft, nontender, on organomegaly or palpable masses. EXTREMITIES: No calf tenderness or dependent edema. CBC, BMP 04/22/17 08:20 04/22/17 08:20 A: 1. CHF NYHA II. 2. NEW onset atrial arrthymia. 3. Hypertension. 4. Acute asthmatic bronchitis. 5. COPD. 6. Hypercholesterolemia RECOMMENDATIONS: 1. Switch to oral Cardizen CD 120mg. Q12H. 2. Taper off IV cardizem. 3. Patient will need skilled nursing anticoagulation. 4. Further suggestions depending upon the response to change in therapy.
[2017-04-23] MEDS ORDERED: dilTIAZem HCL 50 MG/10 ML - 10 ML VIAL IVPUSH ONE (18:00)
[2017-04-24] MEDS: CLINDAMYCIN HCL 150 MG CAPSULE (FP) PO SCH ×3 (00:44→12:42)
[2017-04-24] MEDS ORDERED: PT OWN MED DRAWER 7, Y5N ONE ×3 (03:09→11:19)
[2017-04-24] MEDS: AZTREONAM 0.5 GM in DEXTROSE 5%-WATER - 50 ML IVPB SCH ×2 (03:39→10:20)
[2017-04-24 07:39] LABS: MCH 28.7 pg (25.7-33.7); MEAN CELL VOLUME 89.5 fl (80-96); MEAN PLT VOLUME 9.5 fl (7.5-11.1); PLATELET COUNT 294 K/MM3 (134-434); RDW 14.3 % (11.6-15.6); WHITE BLOOD COUNT 13.1 K/mm3 (4.0-10.0)
[2017-04-24] MEDS: oxyCODONE HCL 5 MG TABLET PO PRN ×2 (07:43→16:16)
[2017-04-24] MEDS: HEPARIN NA (PORCINE) 5,000 UNITS/ML 1ML VIAL IVPUSH PRN (08:12)
[2017-04-24] MEDS: HEPARIN INFUSION - 500 ML IVPB SCH ×2 (08:12→17:08)
[2017-04-24] MEDS: ASCORBIC ACID 500 MG TABLET (FP) PO SCH (10:20)
[2017-04-24] MEDS: ISOSORBIDE MONONITRATE 30 MG TAB.SR.24H (FP) PO SCH (10:20)
[2017-04-24] MEDS: ASPIRIN 81 MG CHEWABLE TABLETS PO SCH (10:20)
[2017-04-24] MEDS: RANITIDINE HCL 150 MG TABLET (FP) PO SCH (10:20)
[2017-04-24] MEDS: CHOLECALCIFEROL (VITAMIN D3) 1,000 UNIT TABLET (FP) PO SCH (10:20)
[2017-04-24] MEDS: LOSARTAN POTASSIUM 50 MG TABLET (FP) PO SCH (12:18)
[2017-04-24] MEDS: ALBUTEROL SO4 0.083% IH SOL 2.5 MG/3 ML VIAL.NEB. NEB PRN (12:48)
[2017-04-24] MEDS ORDERED: dilTIAZem HCL 50 MG/10 ML - 10 ML VIAL IVPUSH ONE (13:30)
[2017-04-24] MEDS ORDERED: METOPROLOL SUCCINATE 25 MG TAB.SR.24H (FP) PO ONE (14:30)
[2017-04-24] MEDS ORDERED: LEVOFLOXACIN 500 MG IVPB 100 ML IVPB ONE (15:11)
--- NOTE | 2017-04-24 15:19 | PN ---
Progress Note, Physician Chief Complaint: Remained at base line no fever not in acute distress History of Present Illness: 86 year old female with a history of UTIs, Arrhythmia, CAD, hypertension, hyperlipidemia, COPD, diverticulitis, ischemic colitis admitted for SOB. The patient reports a 1 day history of SOB She states that she has been having intermittent subjective fevers, and chills, CXR B/L infiltrates US Grew Proteus Vulgaris resistant to azactam - Current Medication List Current Medications: Active Medications Albuterol Sulfate (Ventolin 0.083% Nebulizer Soln -) 1 amp NEB Q6H PRN PRN Reason: SHORT OF BREATH/WHEEZING Last Admin: 04/24/17 12:48 Dose: 1 amp Ascorbic Acid (Vitamin C -) 500 mg PO DAILY [facility] Last Admin: 04/24/17 10:20 Dose: 500 mg Aspirin (Asa -) 81 mg PO DAILY [facility] Last Admin: 04/24/17 10:20 Dose: 81 mg Cholecalciferol (Vitamin D3 -) 5,000 unit PO DAILY [facility] Last Admin: 04/24/17 10:20 Dose: 5,000 unit Clindamycin HCl (Cleocin -) 300 mg PO Q6HPO [facility] Last Admin: 04/24/17 12:42 Dose: 300 mg Diazepam (Valium -) 5 mg PO HS PRN Last Admin: 04/22/17 21:56 Dose: 5 mg Diltiazem HCl (Cardizem Cd -) 120 mg PO BID [facility] Last Admin: 04/24/17 10:41 Dose: 120 mg Heparin Sodium (Porcine) (Heparin -) 5,000 unit IVPUSH PRN PRN PRN Reason: Heparin Last Admin: 04/24/17 08:12 Dose: 5,000 unit Heparin Sodium (Porcine) (Heparin -) 1,000 unit IVPUSH PRN PRN Last Admin: 04/23/17 01:41 Dose: 1,000 unit Heparin Sodium/Dextrose (Heparin Infusion -) 500 mls @ 20 mls/hr IVPB TITR MALIK ; 1,000 UNITS/HR PRN Reason: Protocol Last Admin: 04/24/17 08:12 Dose: 30 mls/hr Levofloxacin (Levaquin 500 Mg Premixed Ivpb -) 100 mls @ 100 mls/hr IVPB ONCE ONE Stop: 04/24/17 16:10 Isosorbide Mononitrate (Imdur -) 30 mg PO DAILY [facility] Last Admin: 04/24/17 10:20 Dose: 30 mg Losartan Potassium (Cozaar -) 50 mg PO DAILY [facility] Last Admin: 04/24/17 12:18 Dose: Not Given Oxycodone HCl (Roxicodone -) 5 mg PO Q6H PRN PRN Reason: PAIN Last Admin: 04/24/17 07:43 Dose: 5 mg Ranitidine HCl (Zantac -) 150 mg PO DAILY [facility] Last Admin: 04/24/17 10:20 Dose: 150 mg - Objective Vital Signs: Vital Signs Temperature 98.8 F 04/24/17 14:56 Pulse Rate 126 H 04/24/17 14:56 Respiratory Rate 20 04/24/17 14:56 Blood Pressure 95/54 04/24/17 14:56 O2 Sat by Pulse Oximetry (%) 93 L 04/23/17 21:00 Elderly F c/O weakness and SOB HEENT: Mm moist , mild anemia NECK: JVD +, tracehea central no thyromegaly CHEST: B/L Diffuse wheezing ABD: Obese non tender Bs + EXT: + edema feet, no calf tenderness BLADE ALIGNER: AOX3 non focal Labs: CBC, BMP 04/24/17 05:35 04/22/17 08:20 INR, PTT INR 1.16 (0.82-1.09) H 04/22/17 07:49 Problem List - Problems (1) Atrial fibrillation with RVR Assessment/Plan: Rtae controlled INR subtherapeutic on Heparin drip Code(s): I48.91 - UNSPECIFIED ATRIAL FIBRILLATION (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 Code(s): J44.9 - CHRONIC OBSTRUCTIVE PULMONARY DISEASE, UNSPECIFIED (5) Diastolic CHF Code(s): I50.30 - UNSPECIFIED DIASTOLIC (CONGESTIVE) HEART FAILURE
--- NOTE | 2017-04-24 15:56 | PN ---
Progress Note, Physician History of Present Illness: patient still does not feel well intermittent - Current Medication List Current Medications: Active Medications Albuterol Sulfate (Ventolin 0.083% Nebulizer Soln -) 1 amp NEB Q6H PRN PRN Reason: SHORT OF BREATH/WHEEZING Last Admin: 04/24/17 12:48 Dose: 1 amp Ascorbic Acid (Vitamin C -) 500 mg PO DAILY [facility] Last Admin: 04/24/17 10:20 Dose: 500 mg Aspirin (Asa -) 81 mg PO DAILY [facility] Last Admin: 04/24/17 10:20 Dose: 81 mg Cholecalciferol (Vitamin D3 -) 5,000 unit PO DAILY [facility] Last Admin: 04/24/17 10:20 Dose: 5,000 unit Clindamycin HCl (Cleocin -) 300 mg PO Q6HPO [facility] Last Admin: 04/24/17 12:42 Dose: 300 mg Diazepam (Valium -) 5 mg PO HS PRN Last Admin: 04/22/17 21:56 Dose: 5 mg Diltiazem HCl (Cardizem Cd -) 120 mg PO BID [facility] Last Admin: 04/24/17 10:41 Dose: 120 mg Heparin Sodium (Porcine) (Heparin -) 5,000 unit IVPUSH PRN PRN PRN Reason: Heparin Last Admin: 04/24/17 08:12 Dose: 5,000 unit Heparin Sodium (Porcine) (Heparin -) 1,000 unit IVPUSH PRN PRN Last Admin: 04/23/17 01:41 Dose: 1,000 unit Heparin Sodium/Dextrose (Heparin Infusion -) 500 mls @ 20 mls/hr IVPB TITR MALIK ; 1,000 UNITS/HR PRN Reason: Protocol Last Admin: 04/24/17 08:12 Dose: 30 mls/hr Levofloxacin (Levaquin 500 Mg Premixed Ivpb -) 100 mls @ 100 mls/hr IVPB ONCE ONE Stop: 04/24/17 16:10 Isosorbide Mononitrate (Imdur -) 30 mg PO DAILY [facility] Last Admin: 04/24/17 10:20 Dose: 30 mg Losartan Potassium (Cozaar -) 50 mg PO DAILY [facility] Last Admin: 04/24/17 12:18 Dose: Not Given Oxycodone HCl (Roxicodone -) 5 mg PO Q6H PRN PRN Reason: PAIN Last Admin: 04/24/17 07:43 Dose: 5 mg Ranitidine HCl (Zantac -) 150 mg PO DAILY [facility] Last Admin: 04/24/17 10:20 Dose: 150 mg - Objective Vital Signs: Vital Signs Temperature 98.8 F 04/24/17 14:56 Pulse Rate 126 H 04/24/17 14:56 Respiratory Rate 20 04/24/17 14:56 Blood Pressure 95/54 04/24/17 14:56 O2 Sat by Pulse Oximetry (%) 93 L 04/23/17 21:00 Constitutional: Yes: No Distress, Calm Cardiovascular: Yes: Regular Rate and Rhythm Respiratory: Yes: Regular, Poor Air Entry, Rhonchi Gastrointestinal: Yes: Normal Bowel Sounds, Soft Musculoskeletal: Yes: WNL Extremities: Yes: WNL Neurological: Yes: Alert, Oriented Psychiatric: Yes: Alert, Oriented Labs: CBC, BMP 04/24/17 05:35 04/22/17 08:20 INR, PTT INR 1.16 (0.82-1.09) H 04/22/17 07:49 Assessment/Plan patient evaluated and seen i suspect patient has pneumonia pneumonia tachy afib sob fever plan cx report noted patient abx switched to levaquin if patient does not show improvement will switch to iv ertapenam rest s per primary team
--- NOTE | 2017-04-24 17:05 | EKG ---
Test Reason : Blood Pressure : / mmHG Vent. Rate : 123 BPM Atrial Rate : 125 BPM P-R Int : 000 ms QRS Dur : 098 ms QT Int : 352 ms P-R-T Axes : 000 -26 096 degrees QTc Int : 503 ms svt versus sinus tachycardia with first degree avb ABNORMAL QRS-T ANGLE, CONSIDER PRIMARY T WAVE ABNORMALITY ABNORMAL ECG WHEN COMPARED WITH ECG OF 22-APR-2017 10:02, PREVIOUS ECG HAS UNDETERMINED RHYTHM, NEEDS REVIEW Confirmed by JACINDA DING MD ([id number]) on 04/24/2017 5:04:53 PM Referred By: Confirmed By:JACINDA DING MD
--- NOTE | 2017-04-24 19:01 | PN ---
Progress Note (short form) - Note Progress Note: 86 year AA female admitted with shortness of breath and chest discomfort. History of CAD angina pectoris, asthmatic bronchitis, COPD and hypertension. Found to have supraventricular tachycardia probably atrial flutter with rapid ventricular response. Continues to have periods of rapid heart rate, responded to Toprol XL. No SOB or wheezing, no chest pain reported. Active Medications Generic Name Dose Route Start Last Admin Trade Name Freq PRN Reason Stop Dose Admin Albuterol Sulfate 1 amp 04/22/17 15:50 04/24/17 12:48 Ventolin 0.083% Nebulizer Soln - NEB 1 amp Q6H PRN Administration SHORT OF BREATH/WHEEZING Ascorbic Acid 500 mg 04/23/17 10:00 04/24/17 10:20 Vitamin C - PO 500 mg DAILY [facility] Administration Aspirin 81 mg 04/23/17 10:00 04/24/17 10:20 Asa - PO 81 mg DAILY [facility] Administration Cholecalciferol 5,000 unit 04/23/17 10:00 04/24/17 10:20 Vitamin D3 - PO 5,000 unit DAILY [facility] Administration Diazepam 5 mg 04/22/17 19:15 04/22/17 21:56 Valium - PO 5 mg HS PRN Administration Heparin Sodium (Porcine) 5,000 unit 04/21/17 19:11 04/24/17 08:12 Heparin - IVPUSH 5,000 unit PRN PRN Administration Heparin Heparin Sodium (Porcine) 1,000 unit 04/23/17 01:33 04/23/17 01:41 Heparin - IVPUSH 1,000 unit PRN PRN Administration Heparin Sodium/Dextrose 500 mls @ 20 mls/hr 04/21/17 19:15 04/24/17 17:08 Heparin Infusion - IVPB 28 mls/hr TITR MALIK Administration Protocol 1,000 UNITS/HR Isosorbide Mononitrate 30 mg 04/23/17 10:00 04/24/17 10:20 Imdur - PO 30 mg DAILY [facility] Administration Losartan Potassium 50 mg 04/23/17 10:00 04/24/17 12:18 Cozaar - PO Not Given DAILY [facility] Oxycodone HCl 5 mg 04/22/17 18:32 04/24/17 16:16 Roxicodone - PO 5 mg Q6H PRN Administration PAIN Ranitidine HCl 150 mg 04/23/17 10:00 04/24/17 10:20 Zantac - PO 150 mg DAILY [facility] Administration 86 yearold AA female in no acute distress, no pallor, cyanosis, clubbing or jaundice. Last Vital Signs Temp Pulse Resp BP Pulse Ox 98.8 F 126 H 20 95/54 93 L 04/24/17 14:56 04/24/17 14:56 04/24/17 14:56 04/24/17 14:56 04/23/17 21:00 NECK: Supple, No JVD or +ve HJR. carotids 2+, no bruits. HEART: Distant sounds,no murmur or gallops heard. LUNGS: Clear on auscultation, decreased breath sounds at the bases. ABDOMEN: Soft, nontender, on organomegaly or palpable masses. EXTREMITIES: No calf tenderness or dependent edema. CBC, BMP 04/24/17 05:35 04/22/17 08:20 A: 1. Atrial tachyarrthymia, most likely atrial flutter 2. CHF, resolved 3. Hypertension. 4. Acute asthmatic bronchitis. 5. COPD. 6. Hypercholesterolemia RECOMMENDATIONS: 1. D/C cardizem 2. Toprol XT 25 mg. po BID and increase to 50mg.BID if BP is stable. 3. 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 4. Further suggestions depending upon the response to change in therapy.
[2017-04-24] MEDS: METOPROLOL SUCCINATE 25 MG TAB.SR.24H (FP) PO SCH (19:54)
[2017-04-25 07:08] LABS: EOSINOPHIL 10.1 % (0-4.5); MCH 28.6 pg (25.7-33.7); MCHC 32.2 g/dl (32.0-36.0); MEAN CELL VOLUME 88.7 fl (80-96); MEAN PLT VOLUME 8.7 fl (7.5-11.1); PLATELET COUNT 301 K/MM3 (134-434); WHITE BLOOD COUNT 12.6 K/mm3 (4.0-10.0)
[2017-04-25 07:38] LABS: ANION GAP 7 (8-16); CO2 25 mmol/L (21-32); CREATININE 1.9 mg/dL (0.55-1.02); GLUCOSE,RANDOM 92 mg/dL (74-106)
--- NOTE | 2017-04-25 09:32 | PN ---
Progress Note, Physician Chief Complaint: Feels better History of Present Illness: Admitted with new onset of afib - Current Medication List Current Medications: Active Medications Albuterol Sulfate (Ventolin 0.083% Nebulizer Soln -) 1 amp NEB Q6H PRN PRN Reason: SHORT OF BREATH/WHEEZING Last Admin: 04/24/17 12:48 Dose: 1 amp Ascorbic Acid (Vitamin C -) 500 mg PO DAILY [facility] Last Admin: 04/24/17 10:20 Dose: 500 mg Aspirin (Asa -) 81 mg PO DAILY [facility] Last Admin: 04/24/17 10:20 Dose: 81 mg Cholecalciferol (Vitamin D3 -) 5,000 unit PO DAILY [facility] Last Admin: 04/24/17 10:20 Dose: 5,000 unit Diazepam (Valium -) 5 mg PO HS PRN Last Admin: 04/22/17 21:56 Dose: 5 mg Heparin Sodium (Porcine) (Heparin -) 5,000 unit IVPUSH PRN PRN PRN Reason: Heparin Last Admin: 04/24/17 08:12 Dose: 5,000 unit Heparin Sodium (Porcine) (Heparin -) 1,000 unit IVPUSH PRN PRN Last Admin: 04/23/17 01:41 Dose: 1,000 unit Heparin Sodium/Dextrose (Heparin Infusion -) 500 mls @ 20 mls/hr IVPB TITR MALIK ; 1,000 UNITS/HR PRN Reason: Protocol Last Admin: 04/24/17 17:08 Dose: 28 mls/hr Isosorbide Mononitrate (Imdur -) 30 mg PO DAILY [facility] Last Admin: 04/24/17 10:20 Dose: 30 mg Losartan Potassium (Cozaar -) 50 mg PO DAILY [facility] Last Admin: 04/24/17 12:18 Dose: Not Given Metoprolol Succinate (Toprol Xl -) 25 mg PO BID [facility] Last Admin: 04/24/17 19:54 Dose: 25 mg Oxycodone HCl (Roxicodone -) 5 mg PO Q6H PRN PRN Reason: PAIN Last Admin: 04/24/17 16:16 Dose: 5 mg Ranitidine HCl (Zantac -) 150 mg PO DAILY [facility] Last Admin: 04/24/17 10:20 Dose: 150 mg - Objective Vital Signs: Vital Signs Temperature 98.1 F 04/25/17 06:00 Pulse Rate 118 H 11/03/17 06:00 Respiratory Rate 20 04/25/17 06:00 Blood Pressure 94/45 04/25/17 06:00 O2 Sat by Pulse Oximetry (%) 96 04/24/17 21:00 Constitutional: Yes: Calm, Pallor HENT: Yes: WNL Neck: Yes: WNL Cardiovascular: Yes: WNL Gastrointestinal: Yes: WNL ...Rectal Exam: Yes: Deferred Genitourinary: Yes: WNL Neurological: Yes: Alert Labs: CBC, BMP 04/25/17 05:19 04/25/17 05:19 INR, PTT INR 1.16 (0.82-1.09) H 04/22/17 07:49 Assessment/Plan Urine culture grew strep veridens Belén WHITAKER
--- NOTE | 2017-04-25 10:17 | PN ---
Progress Note (short form) - Note Progress Note: 86 year AA female admitted with shortness of breath and chest discomfort. History of CAD angina pectoris, asthmatic bronchitis, COPD and hypertension. Found to have supraventricular tachycardia probably atrial flutter with rapid ventricular response. Patient denies Shortness of breath or chest discomfort, HR is between 115 and 120 BPM. Active Medications Generic Name Dose Route Start Last Admin Trade Name Freq PRN Reason Stop Dose Admin Albuterol Sulfate 1 amp 04/22/17 15:50 04/24/17 12:48 Ventolin 0.083% Nebulizer Soln - NEB 1 amp Q6H PRN Administration SHORT OF BREATH/WHEEZING Ascorbic Acid 500 mg 04/23/17 10:00 04/24/17 10:20 Vitamin C - PO 500 mg DAILY [facility] Administration Aspirin 81 mg 04/23/17 10:00 04/24/17 10:20 Asa - PO 81 mg DAILY [facility] Administration Cholecalciferol 5,000 unit 04/23/17 10:00 04/24/17 10:20 Vitamin D3 - PO 5,000 unit DAILY [facility] Administration Diazepam 5 mg 04/22/17 19:15 04/22/17 21:56 Valium - PO 5 mg HS PRN Administration Heparin Sodium (Porcine) 5,000 unit 04/21/17 19:11 04/24/17 08:12 Heparin - IVPUSH 5,000 unit PRN PRN Administration Heparin Heparin Sodium (Porcine) 1,000 unit 04/23/17 01:33 04/23/17 01:41 Heparin - IVPUSH 1,000 unit PRN PRN Administration Heparin Sodium/Dextrose 500 mls @ 20 mls/hr 04/21/17 19:15 04/24/17 17:08 Heparin Infusion - IVPB 28 mls/hr TITR MALIK Administration Protocol 1,000 UNITS/HR Isosorbide Mononitrate 30 mg 04/23/17 10:00 04/24/17 10:20 Imdur - PO 30 mg DAILY [facility] Administration Losartan Potassium 50 mg 04/23/17 10:00 04/24/17 12:18 Cozaar - PO Not Given DAILY [facility] Metoprolol Succinate 25 mg 04/24/17 19:00 04/24/17 19:54 Toprol Xl - PO 25 mg BID [facility] Administration Oxycodone HCl 5 mg 04/22/17 18:32 04/24/17 16:16 Roxicodone - PO 5 mg Q6H PRN Administration PAIN Ranitidine HCl 150 mg 04/23/17 10:00 04/24/17 10:20 Zantac - PO 150 mg DAILY [facility] Administration Trimethoprim/Sulfamethoxazole 1 each 04/25/17 11:00 Bactrim Ds - PO BID [facility] 86 year old AA female in no acute distress, no pallor, cyanosis, clubbing or jaundice. Last Vital Signs Temp Pulse Resp BP Pulse Ox 98.1 F 118 H 20 94/45 96 04/25/17 06:00 04/25/17 06:00 04/25/17 06:00 04/25/17 06:00 04/24/17 21:00 NECK: Supple, No JVD or +ve HJR. carotids 2+, no bruits. HEART: Distant sounds,no murmur or gallops heard. LUNGS: Clear on auscultation, decreased breath sounds at the bases. ABDOMEN: Soft, nontender, on organomegaly or palpable masses. EXTREMITIES: No calf tenderness or dependent edema. CBC, BMP 04/25/17 05:19 04/25/17 05:19 Laboratory Results - last 24 hr 04/24/17 04/24/17 04/25/17 15:00 22:00 05:19 WBC 12.6 H RBC 3.75 Hgb 10.7 Hct 33.2 MCV 88.7 MCH 28.6 MCHC 32.2 RDW 14.0 Plt Count 301 MPV 8.7 Neutrophils % 59.0 Lymphocytes % 23.0 D Monocytes % 6.9 Eosinophils % 10.1 H Basophils % 1.0 PTT (Actin FS) 99.4 H D 84.3 H Sodium Potassium Chloride Carbon Dioxide Anion Gap BUN Creatinine Random Glucose Calcium 04/25/17 04/25/17 05:19 05:19 WBC RBC Hgb Hct MCV MCH MCHC RDW Plt Count MPV Neutrophils % Lymphocytes % Monocytes % Eosinophils % Basophils % PTT (Actin FS) 77.7 H Sodium 142 Potassium 4.6 Chloride 110 H Carbon Dioxide 25 Anion Gap 7 L BUN 41 H D Creatinine 1.9 H D Random Glucose 92 Calcium 8.0 L EKG 04/25/17 Rhythm appears to be sinus tachycardia with 1st degree AV block, left axis deviation, poor R wave progression across the precordal leads, low voltage. A: 1. Current rhythm appear to be sinus tachycardia. 2. CHF, resolved 3. Hypertension. 4. Acute asthmatic bronchitis. 5. COPD. 6. Hypercholesterolemia RECOMMENDATIONS: 1. Increase Toprol XT 50 mg. po BID under close observation of blood pressure. 2. 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 3. Further suggestions depending upon the response to change in therapy. 4. If patient was to develop wheezing then the dose of Toprol will have to be reduced and if necessary discontinued. Attestation: Documentation prepared by Alejandro Wayne, acting as medical office secretary for Micky Hawkins MD.
[2017-04-25] MEDS: oxyCODONE HCL 5 MG TABLET PO PRN ×2 (10:49→23:12)
[2017-04-25] MEDS: RANITIDINE HCL 150 MG TABLET (FP) PO SCH (10:50)
[2017-04-25] MEDS: ASCORBIC ACID 500 MG TABLET (FP) PO SCH (10:50)
[2017-04-25] MEDS: ISOSORBIDE MONONITRATE 30 MG TAB.SR.24H (FP) PO SCH (10:50)
[2017-04-25] MEDS: ASPIRIN 81 MG CHEWABLE TABLETS PO SCH (10:50)
[2017-04-25] MEDS: METOPROLOL SUCCINATE 25 MG TAB.SR.24H (FP) PO SCH (10:50)
[2017-04-25] MEDS: LOSARTAN POTASSIUM 50 MG TABLET (FP) PO SCH (10:50)
[2017-04-25] MEDS: CHOLECALCIFEROL (VITAMIN D3) 1,000 UNIT TABLET (FP) PO SCH (10:50)
[2017-04-25] MEDS: SULFAMETHOXAZOLE/TRIMETHOPRIM 800MG/160MG D.S. TABLET PO SCH ×3 (14:13→23:11)
--- NOTE | 2017-04-25 15:09 | PN ---
Progress Note, Physician History of Present Illness: patient feeling better no issues tired - Current Medication List Current Medications: Active Medications Albuterol Sulfate (Ventolin 0.083% Nebulizer Soln -) 1 amp NEB Q6H PRN PRN Reason: SHORT OF BREATH/WHEEZING Last Admin: 04/24/17 12:48 Dose: 1 amp Ascorbic Acid (Vitamin C -) 500 mg PO DAILY [facility] Last Admin: 04/25/17 10:50 Dose: 500 mg Aspirin (Asa -) 81 mg PO DAILY [facility] Last Admin: 04/25/17 10:50 Dose: 81 mg Cholecalciferol (Vitamin D3 -) 5,000 unit PO DAILY [facility] Last Admin: 04/25/17 10:50 Dose: 5,000 unit Diazepam (Valium -) 5 mg PO HS PRN Last Admin: 04/22/17 21:56 Dose: 5 mg Heparin Sodium (Porcine) (Heparin -) 5,000 unit IVPUSH PRN PRN PRN Reason: Heparin Last Admin: 04/24/17 08:12 Dose: 5,000 unit Heparin Sodium (Porcine) (Heparin -) 1,000 unit IVPUSH PRN PRN Last Admin: 04/23/17 01:41 Dose: 1,000 unit Heparin Sodium/Dextrose (Heparin Infusion -) 500 mls @ 20 mls/hr IVPB TITR [facility] ; 1,000 UNITS/HR PRN Reason: Protocol Last Admin: 04/24/17 17:08 Dose: 28 mls/hr Isosorbide Mononitrate (Imdur -) 30 mg PO DAILY [facility] Last Admin: 04/25/17 10:50 Dose: 30 mg Losartan Potassium (Cozaar -) 50 mg PO DAILY [facility] Last Admin: 04/25/17 10:50 Dose: 50 mg Metoprolol Succinate (Toprol Xl -) 50 mg PO BID [facility] Oxycodone HCl (Roxicodone -) 5 mg PO Q6H PRN PRN Reason: PAIN Last Admin: 04/25/17 10:49 Dose: 5 mg Ranitidine HCl (Zantac -) 150 mg PO DAILY [facility] Last Admin: 04/25/17 10:50 Dose: 150 mg Trimethoprim/Sulfamethoxazole (Bactrim Ds -) 1 each PO BID [facility] Last Admin: 04/25/17 14:20 Dose: 1 each - Objective Vital Signs: Vital Signs Temperature 98.1 F 04/25/17 06:00 Pulse Rate 118 H 04/25/17 06:00 Respiratory Rate 20 04/25/17 06:00 Blood Pressure 94/45 04/25/17 06:00 O2 Sat by Pulse Oximetry (%) 96 04/24/17 21:00 Constitutional: Yes: No Distress, Calm Cardiovascular: Yes: Tachycardia, Pulse Irregular Respiratory: Yes: Regular, CTA Bilaterally, On Nasal O2 Gastrointestinal: Yes: Normal Bowel Sounds, Soft Musculoskeletal: Yes: WNL Extremities: Yes: WNL Neurological: Yes: Alert, Oriented Psychiatric: Yes: Alert Labs: CBC, BMP 04/25/17 05:19 04/25/17 05:19 INR, PTT INR 1.16 (0.82-1.09) H 04/22/17 07:49 Assessment/Plan patient evaluated and seen i suspect patient has pneumonia pneumonia tachy afib sob fever plan cx report noted abx changed to bactrim
[2017-04-25] MEDS ORDERED: diazePAM 5 MG TABLET PO PRN (22:26)
[2017-04-25] MEDS: METOPROLOL SUCCINATE 50 MG TAB.SR.24H (FP) PO SCH (23:16)
[2017-04-25] MEDS: guaiFENesin 200 MG/10 ML 10 ML UNIT-DOSE CUPS PO PRN (23:24)
[2017-04-26] MEDS: HEPARIN INFUSION - 500 ML IVPB SCH ×2 (04:35→08:27)
[2017-04-26] MEDS ORDERED: PT OWN MED DRAWER 7, Y5N ONE ×2 (09:38→20:57)
[2017-04-26] MEDS: guaiFENesin 200 MG/10 ML 10 ML UNIT-DOSE CUPS PO PRN ×2 (10:06→21:10)
[2017-04-26] MEDS: SULFAMETHOXAZOLE/TRIMETHOPRIM 800MG/160MG D.S. TABLET PO SCH ×2 (10:21→21:10)
[2017-04-26] MEDS: RANITIDINE HCL 150 MG TABLET (FP) PO SCH (10:21)
[2017-04-26] MEDS: ASPIRIN 81 MG CHEWABLE TABLETS PO SCH (10:21)
[2017-04-26] MEDS: LOSARTAN POTASSIUM 50 MG TABLET (FP) PO SCH (10:21)
[2017-04-26] MEDS: oxyCODONE HCL 5 MG TABLET PO PRN ×2 (10:21→21:12)
[2017-04-26] MEDS: METOPROLOL SUCCINATE 50 MG TAB.SR.24H (FP) PO SCH ×2 (10:22→21:10)
[2017-04-26] MEDS: CHOLECALCIFEROL (VITAMIN D3) 1,000 UNIT TABLET (FP) PO SCH (10:22)
[2017-04-26] MEDS: ASCORBIC ACID 500 MG TABLET (FP) PO SCH (10:22)
[2017-04-26] MEDS: ISOSORBIDE MONONITRATE 30 MG TAB.SR.24H (FP) PO SCH (10:22)
--- NOTE | 2017-04-26 10:58 | PN ---
Progress Note, Physician History of Present Illness: stable no new issues - Current Medication List Current Medications: Active Medications Albuterol Sulfate (Ventolin 0.083% Nebulizer Soln -) 1 amp NEB Q6H PRN PRN Reason: SHORT OF BREATH/WHEEZING Last Admin: 04/24/17 12:48 Dose: 1 amp Ascorbic Acid (Vitamin C -) 500 mg PO DAILY [facility] Last Admin: 04/26/17 10:22 Dose: 500 mg Aspirin (Asa -) 81 mg PO DAILY [facility] Last Admin: 04/26/17 10:21 Dose: 81 mg Cholecalciferol (Vitamin D3 -) 5,000 unit PO DAILY [facility] Last Admin: 04/26/17 10:22 Dose: 5,000 unit Diazepam (Valium -) 5 mg PO HS PRN Guaifenesin (Robitussin -) 10 ml PO Q6H PRN Last Admin: 04/26/17 10:06 Dose: 10 ml Heparin Sodium (Porcine) (Heparin -) 5,000 unit IVPUSH PRN PRN PRN Reason: Heparin Last Admin: 04/24/17 08:12 Dose: 5,000 unit Heparin Sodium (Porcine) (Heparin -) 1,000 unit IVPUSH PRN PRN Last Admin: 04/23/17 01:41 Dose: 1,000 unit Heparin Sodium/Dextrose (Heparin Infusion -) 500 mls @ 20 mls/hr IVPB TITR [facility] ; 1,000 UNITS/HR PRN Reason: Protocol Last Admin: 04/26/17 08:27 Dose: 28 mls/hr Isosorbide Mononitrate (Imdur -) 30 mg PO DAILY [facility] Last Admin: 04/26/17 10:22 Dose: 30 mg Losartan Potassium (Cozaar -) 50 mg PO DAILY [facility] Last Admin: 04/26/17 10:21 Dose: 50 mg Metoprolol Succinate (Toprol Xl -) 50 mg PO BID [facility] Last Admin: 04/26/17 10:22 Dose: 50 mg Oxycodone HCl (Roxicodone -) 5 mg PO Q6H PRN PRN Reason: PAIN Last Admin: 04/26/17 10:21 Dose: 5 mg Ranitidine HCl (Zantac -) 150 mg PO DAILY [facility] Last Admin: 04/26/17 10:21 Dose: 150 mg Trimethoprim/Sulfamethoxazole (Bactrim Ds -) 1 each PO BID [facility] Last Admin: 04/26/17 10:21 Dose: 1 each - Objective Vital Signs: Vital Signs Temperature 98.7 F 04/26/17 06:00 Pulse Rate 119 H 04/26/17 06:00 Respiratory Rate 20 04/26/17 06:00 Blood Pressure 118/69 04/26/17 06:00 O2 Sat by Pulse Oximetry (%) 97 04/25/17 21:00 Constitutional: Yes: No Distress, Calm Cardiovascular: Yes: Tachycardia, Pulse Irregular Respiratory: Yes: Regular, On Nasal O2, Poor Air Entry Gastrointestinal: Yes: Normal Bowel Sounds, Soft Musculoskeletal: Yes: WNL Extremities: Yes: WNL Neurological: Yes: Alert, Oriented Psychiatric: Yes: Alert Labs: CBC, BMP 04/25/17 05:19 04/25/17 05:19 INR, PTT INR 1.16 (0.82-1.09) H 04/22/17 07:49 Assessment/Plan patient evaluated and seen i suspect patient has pneumonia pneumonia tachy afib sob fever plan continue current mgmt as per cardio as per primary
--- NOTE | 2017-04-26 12:06 | PN ---
Progress Note, Physician Chief Complaint: Remained at base line no fever not in acute distress History of Present Illness: 86 year old female with a history of UTIs, Arrhythmia, CAD, hypertension, hyperlipidemia, COPD, diverticulitis, ischemic colitis admitted for SOB. The patient reports a 1 day history of SOB She states that she has been having intermittent subjective fevers, and chills, CXR B/L infiltrates US Grew Proteus resistant to azactam switched to Bactrim - Current Medication List Current Medications: Active Medications Albuterol Sulfate (Ventolin 0.083% Nebulizer Soln -) 1 amp NEB Q6H PRN PRN Reason: SHORT OF BREATH/WHEEZING Last Admin: 04/24/17 12:48 Dose: 1 amp Ascorbic Acid (Vitamin C -) 500 mg PO DAILY [facility] Last Admin: 04/26/17 10:22 Dose: 500 mg Aspirin (Asa -) 81 mg PO DAILY [facility] Last Admin: 04/26/17 10:21 Dose: 81 mg Cholecalciferol (Vitamin D3 -) 5,000 unit PO DAILY [facility] Last Admin: 04/26/17 10:22 Dose: 5,000 unit Diazepam (Valium -) 5 mg PO HS PRN Guaifenesin (Robitussin -) 10 ml PO Q6H PRN Last Admin: 04/26/17 10:06 Dose: 10 ml Heparin Sodium (Porcine) (Heparin -) 5,000 unit IVPUSH PRN PRN PRN Reason: Heparin Last Admin: 04/24/17 08:12 Dose: 5,000 unit Heparin Sodium (Porcine) (Heparin -) 1,000 unit IVPUSH PRN PRN Last Admin: 04/23/17 01:41 Dose: 1,000 unit Heparin Sodium/Dextrose (Heparin Infusion -) 500 mls @ 20 mls/hr IVPB TITR [facility] ; 1,000 UNITS/HR PRN Reason: Protocol Last Admin: 04/26/17 08:27 Dose: 28 mls/hr Isosorbide Mononitrate (Imdur -) 30 mg PO DAILY [facility] Last Admin: 04/26/17 10:22 Dose: 30 mg Losartan Potassium (Cozaar -) 50 mg PO DAILY [facility] Last Admin: 04/26/17 10:21 Dose: 50 mg Metoprolol Succinate (Toprol Xl -) 50 mg PO BID [facility] Last Admin: 04/26/17 10:22 Dose: 50 mg Oxycodone HCl (Roxicodone -) 5 mg PO Q6H PRN PRN Reason: PAIN Last Admin: 04/26/17 10:21 Dose: 5 mg Ranitidine HCl (Zantac -) 150 mg PO DAILY [facility] Last Admin: 04/26/17 10:21 Dose: 150 mg Trimethoprim/Sulfamethoxazole (Bactrim Ds -) 1 each PO BID [facility] Last Admin: 04/26/17 10:21 Dose: 1 each - Objective Vital Signs: Vital Signs Temperature 98.7 F 04/26/17 06:00 Pulse Rate 119 H 04/26/17 06:00 Respiratory Rate 20 04/26/17 06:00 Blood Pressure 118/69 04/26/17 06:00 O2 Sat by Pulse Oximetry (%) 97 04/25/17 21:00 Elderly F c/O weakness and SOB HEENT: Mm moist , mild anemia NECK: JVD +, tracehea central no thyromegaly CHEST: B/L Diffuse wheezing ABD: Obese non tender Bs + EXT: + edema feet, no calf tenderness 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 Labs: CBC, BMP 04/25/17 05:19 04/25/17 05:19 INR, PTT INR 1.16 (0.82-1.09) H 04/22/17 07:49 Problem List - Problems (1) Atrial fibrillation with RVR Assessment/Plan: Rtae controlled INR subtherapeutic on Heparin drip Code(s): I48.91 - UNSPECIFIED ATRIAL FIBRILLATION (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 Assessment/Plan: F/U BMP Code(s): I12.9 - HYPERTENSIVE CHRONIC KIDNEY DISEASE W STG 1-4/UNSP CHR KDNY N18.4 - CHRONIC KIDNEY DISEASE, STAGE 4 (SEVERE) (3) UTI (urinary tract infection), bacterial Assessment/Plan: Urine grew Proteus Vulagris resistent to Azactam so abx switched to Levofloxacin Code(s): N39.0 - URINARY TRACT INFECTION, SITE NOT SPECIFIED A49.9 - BACTERIAL INFECTION, UNSPECIFIED (4) Diastolic CHF Code(s): I50.30 - UNSPECIFIED DIASTOLIC (CONGESTIVE) HEART FAILURE Qualifiers : Congestive heart failure chronicity: acute Qualified Code(s): I50.31 - Acute diastolic (congestive) heart failure; I50.31 - Acute diastolic ( congestive) heart failure; I50.31 - Acute diastolic (congestive) heart failure; I50.31 - Acute diastolic (congestive) heart failure
[2017-04-26] MEDS: FLUTICASONE/SALMETEROL 100 MCG/50 MCG DISKUS IH SCH ×3 (12:30→22:10)
[2017-04-26] MEDS: ALBUTEROL SO4 0.083% IH SOL 2.5 MG/3 ML VIAL.NEB. NEB PRN (12:40)
--- NOTE | 2017-04-26 12:59 | PN ---
Progress Note (short form) - Note Progress Note: 86 year AA female with H/O hypertension, COPD, CAD/angina pectoris, came the hospital with CHF and bronchitis and atrial arrthymia. C/O of uriahque, since switching to Beta blockers, decrease in heart rate and still has periods of sinus tachycardia. Active Medications Albuterol Sulfate (Ventolin 0.083% Nebulizer Soln -) 1 amp NEB Q6H PRN PRN Reason: SHORT OF BREATH/WHEEZING Last Admin: 04/26/17 12:40 Dose: 1 amp Ascorbic Acid (Vitamin C -) 500 mg PO DAILY [facility] Last Admin: 04/26/17 10:22 Dose: 500 mg Aspirin (Asa -) 81 mg PO DAILY [facility] Last Admin: 04/26/17 10:21 Dose: 81 mg Cholecalciferol (Vitamin D3 -) 5,000 unit PO DAILY [facility] Last Admin: 04/26/17 10:22 Dose: 5,000 unit Diazepam (Valium -) 5 mg PO HS PRN Guaifenesin (Robitussin -) 10 ml PO Q6H PRN Last Admin: 04/26/17 10:06 Dose: 10 ml Heparin Sodium (Porcine) (Heparin -) 5,000 unit IVPUSH PRN PRN PRN Reason: Heparin Last Admin: 04/24/17 08:12 Dose: 5,000 unit Heparin Sodium (Porcine) (Heparin -) 1,000 unit IVPUSH PRN PRN Last Admin: 04/23/17 01:41 Dose: 1,000 unit Heparin Sodium/Dextrose (Heparin Infusion -) 500 mls @ 20 mls/hr IVPB TITR [facility] ; 1,000 UNITS/HR PRN Reason: Protocol Last Admin: 04/26/17 08:27 Dose: 28 mls/hr Isosorbide Mononitrate (Imdur -) 30 mg PO DAILY [facility] Last Admin: 04/26/17 10:22 Dose: 30 mg Losartan Potassium (Cozaar -) 50 mg PO DAILY [facility] Last Admin: 04/26/17 10:21 Dose: 50 mg Metoprolol Succinate (Toprol Xl -) 50 mg PO BID [facility] Last Admin: 04/26/17 10:22 Dose: 50 mg Oxycodone HCl (Roxicodone -) 5 mg PO Q6H PRN PRN Reason: PAIN Last Admin: 04/26/17 10:21 Dose: 5 mg Ranitidine HCl (Zantac -) 150 mg PO DAILY [facility] Last Admin: 04/26/17 10:21 Dose: 150 mg Fluticasone/Salmeterol (Advair 100mcg/50mcg -) 1 puff IH BID [facility] Trimethoprim/Sulfamethoxazole (Bactrim Ds -) 1 each PO BID [facility] Last Admin: 04/26/17 10:21 Dose: 1 each 86 year old AA female in no acute distress, lethargic and c/o of poor appetite. Last Vital Signs Temp Pulse Resp BP Pulse Ox 98.7 F 119 H 20 118/69 97 04/26/17 06:00 04/26/17 06:00 04/26/17 06:00 04/26/17 06:00 04/25/17 21:00 Mouth: Tongue,is dry and parched. NECK: Supple, No JVD or +ve HJR. carotids 2+, no bruits. HEART: Distant sounds,no murmur or gallops heard. LUNGS: Clear on auscultation, decreased breath sounds at the bases. ABDOMEN: Soft, nontender, on organomegaly or palpable masses. EXTREMITIES: No calf tenderness or dependent edema. Laboratory Results - last 24 hr 04/26/17 04/26/17 05:10 12:20 PTT (Actin FS) 54.5 H Magnesium 2.1 04/25/17 04/25/17 05:19 05:19 WBC RBC Hgb Hct MCV MCH MCHC RDW Plt Count MPV Neutrophils % Lymphocytes % Monocytes % Eosinophils % Basophils % PTT (Actin FS) 77.7 H Sodium 142 Potassium 4.6 Chloride 110 H Carbon Dioxide 25 Anion Gap 7 L BUN 41 H D Creatinine 1.9 H D Random Glucose 92 Calcium 8.0 L A: 1. Suspect volume depletion 2. CKD wit prerenal azotemia. 3. Hypertension. 4. Acute asthmatic bronchitis. 5. COPD. 6. Hypercholesterolemia RECOMMENDATIONS: 1. Cautious fluid replacement,D/normal saline 100cc/hr, total of 500cc. 2. Patient will need residential anticoagulation, consider coumadinization 3. Further suggestions depending upon the response to change in therapy. 4. F/U BMP. Attestation: Documentation prepared by Alejandro Wayne, acting as chief medical officer for Micky Hawkins MD.
[2017-04-26] MEDS ORDERED: DEXTROSE 5%-NORMAL SALINE 1,000 ML IV SCH (15:00)
[2017-04-26] MEDS ORDERED: DEXTROSE 5% IV SCH (20:00)
[2017-04-26] MEDS ORDERED: NORMAL SALINE IV SCH (20:00)
[2017-04-27 07:43] LABS: BASOPHIL 1.4 % (0-2.0); EOSINOPHIL 8.3 % (0-4.5); MCH 28.7 pg (25.7-33.7); MCHC 31.7 g/dl (32.0-36.0); MEAN CELL VOLUME 90.4 fl (80-96); MEAN PLT VOLUME 9.2 fl (7.5-11.1); PLATELET COUNT 302 K/MM3 (134-434); RDW 14.4 % (11.6-15.6); WHITE BLOOD COUNT 11.2 K/mm3 (4.0-10.0)
[2017-04-27] MEDS: guaiFENesin 200 MG/10 ML 10 ML UNIT-DOSE CUPS PO PRN ×2 (08:06→22:10)
[2017-04-27 08:09] LABS: ANION GAP 9 (8-16); CALCIUM 8.4 mg/dL (8.5-10.1); CO2 23 mmol/L (21-32); CREATININE 1.7 mg/dL (0.55-1.02); GLUCOSE,RANDOM 82 mg/dL (74-106)
[2017-04-27] MEDS: HEPARIN NA (PORCINE) 5,000 UNITS/ML 1ML VIAL IVPUSH PRN (08:32)
[2017-04-27] MEDS: HEPARIN INFUSION - 500 ML IVPB SCH ×2 (08:32→18:07)
[2017-04-27] MEDS: FLUTICASONE/SALMETEROL 100 MCG/50 MCG DISKUS IH SCH ×2 (09:51→21:46)
[2017-04-27] MEDS: CHOLECALCIFEROL (VITAMIN D3) 1,000 UNIT TABLET (FP) PO SCH (09:53)
[2017-04-27] MEDS: SULFAMETHOXAZOLE/TRIMETHOPRIM 800MG/160MG D.S. TABLET PO SCH (09:53)
[2017-04-27] MEDS: ASPIRIN 81 MG CHEWABLE TABLETS PO SCH (09:53)
[2017-04-27] MEDS: oxyCODONE HCL 5 MG TABLET PO PRN ×2 (09:53→21:47)
[2017-04-27] MEDS: LOSARTAN POTASSIUM 50 MG TABLET (FP) PO SCH (09:54)
[2017-04-27] MEDS: RANITIDINE HCL 150 MG TABLET (FP) PO SCH (09:54)
[2017-04-27] MEDS: ISOSORBIDE MONONITRATE 30 MG TAB.SR.24H (FP) PO SCH (09:54)
[2017-04-27] MEDS: ASCORBIC ACID 500 MG TABLET (FP) PO SCH (09:54)
[2017-04-27] MEDS: METOPROLOL SUCCINATE 50 MG TAB.SR.24H (FP) PO SCH ×2 (09:54→21:48)
[2017-04-27] MEDS ORDERED: SODIUM POLYSTYRENE SULFONATE 15 GM/60 ML BOTTLE PO ONE (13:15)
--- NOTE | 2017-04-27 13:27 | PN ---
Progress Note (short form) - Note Progress Note: 86 year AA female with H/O hypertension, COPD, CAD/angina pectoris, came the hospital with CHF and bronchitis and atrial arrthymia, most likely atrial flutter with 2:1 AV conduction. Since giving her a total of 500 ml of fluids yesterday the BUN and creatinine have come down. Rhythm has been resistant to IV diltiazem and oral Beta blockers. Patient feels better and is out of bed and today had a good appetite. No palpitations, chest pains, SOB or chest pain. Active Medications Albuterol Sulfate (Ventolin 0.083% Nebulizer Soln -) 1 amp NEB Q6H PRN PRN Reason: SHORT OF BREATH/WHEEZING Last Admin: 04/26/17 12:40 Dose: 1 amp Ascorbic Acid (Vitamin C -) 500 mg PO DAILY [facility] Last Admin: 04/27/17 09:54 Dose: 500 mg Aspirin (Asa -) 81 mg PO DAILY [facility] Last Admin: 04/27/17 09:53 Dose: 81 mg Cholecalciferol (Vitamin D3 -) 5,000 unit PO DAILY [facility] Last Admin: 04/27/17 09:53 Dose: 5,000 unit Diazepam (Valium -) 5 mg PO HS PRN Guaifenesin (Robitussin -) 10 ml PO Q6H PRN Last Admin: 04/27/17 08:06 Dose: 10 ml Heparin Sodium (Porcine) (Heparin -) 5,000 unit IVPUSH PRN PRN PRN Reason: Heparin Last Admin: 04/27/17 08:32 Dose: 5,000 unit Heparin Sodium (Porcine) (Heparin -) 1,000 unit IVPUSH PRN PRN Last Admin: 04/23/17 01:41 Dose: 1,000 unit Heparin Sodium/Dextrose (Heparin Infusion -) 500 mls @ 20 mls/hr IVPB TITR [facility] ; 1,000 UNITS/HR PRN Reason: Protocol Last Admin: 04/27/17 08:32 Dose: 31 mls/hr Isosorbide Mononitrate (Imdur -) 30 mg PO DAILY [facility] Last Admin: 04/27/17 09:54 Dose: 30 mg Losartan Potassium (Cozaar -) 50 mg PO DAILY [facility] Last Admin: 04/27/17 09:54 Dose: 50 mg Metoprolol Succinate (Toprol Xl -) 50 mg PO BID [facility] Last Admin: 04/27/17 09:54 Dose: 50 mg Oxycodone HCl (Roxicodone -) 5 mg PO Q6H PRN PRN Reason: PAIN Last Admin: 04/27/17 09:53 Dose: 5 mg Ranitidine HCl (Zantac -) 150 mg PO DAILY [facility] Last Admin: 04/27/17 09:54 Dose: 150 mg Fluticasone/Salmeterol (Advair 100mcg/50mcg -) 1 puff IH BID [facility] Last Admin: 04/27/17 09:51 Dose: 1 puff Trimethoprim/Sulfamethoxazole (Bactrim Ds -) 1 each PO BID [facility] Last Admin: 04/27/17 09:53 Dose: 1 each Last Vital Signs Temp Pulse Resp BP Pulse Ox 99.7 F H 112 H 20 109/65 95 04/27/17 02:00 04/27/17 10:54 04/27/17 02:00 04/27/17 02:00 04/27/17 10:54 NECK: Supple, No JVD or +ve HJR. carotids 2+, no bruits. HEART: Distant sounds,no murmur or gallops heard. LUNGS: Clear on auscultation, decreased breath sounds at the bases. ABDOMEN: Soft, nontender, on organomegaly or palpable masses. EXTREMITIES: No calf tenderness or dependent edema. CBC, BMP 04/27/17 05:10 04/27/17 05:10 A: 1. Atrial arrthymias, most likely related to atrial flutter with 2:1 conduction with out hemodynamic compromise. 2. Volume depletion. 3. Hypertension, currently normotensive. 4. Acute asthmatic bronchitis. 5. H/O COPD. 6. Hypercholesterolemia. 7. Elevated serum K+. 8. Moderate LV systolic Dysfunction. RECOMMENDATIONS: 1. If there in response to oral Beta manuelito consider trial with IV Verapamil 5mg. over 5 mins. and repeat if necessary in 5 to 10 mins. 2. 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 Repeat potassium level. 4. Oral fluids.
--- NOTE | 2017-04-27 13:48 | PN ---
Progress Note, Physician Chief Complaint: Feels improved less SOB, no fever not in acute distress History of Present Illness: 86 year old female with a history of UTIs, Arrhythmia, CAD, hypertension, hyperlipidemia, COPD, diverticulitis, ischemic colitis admitted for SOB. The patient reports a 1 day history of SOB She states that she has been having intermittent subjective fevers, and chills, CXR B/L infiltrates US Grew Proteus resistant to azactam switched to Bactrim - Current Medication List Current Medications: Active Medications Albuterol Sulfate (Ventolin 0.083% Nebulizer Soln -) 1 amp NEB Q6H PRN PRN Reason: SHORT OF BREATH/WHEEZING Last Admin: 04/26/17 12:40 Dose: 1 amp Ascorbic Acid (Vitamin C -) 500 mg PO DAILY [facility] Last Admin: 04/27/17 09:54 Dose: 500 mg Aspirin (Asa -) 81 mg PO DAILY [facility] Last Admin: 04/27/17 09:53 Dose: 81 mg Cholecalciferol (Vitamin D3 -) 5,000 unit PO DAILY [facility] Last Admin: 04/27/17 09:53 Dose: 5,000 unit Diazepam (Valium -) 5 mg PO HS PRN Guaifenesin (Robitussin -) 10 ml PO Q6H PRN Last Admin: 04/27/17 08:06 Dose: 10 ml Heparin Sodium (Porcine) (Heparin -) 5,000 unit IVPUSH PRN PRN PRN Reason: Heparin Last Admin: 04/27/17 08:32 Dose: 5,000 unit Heparin Sodium (Porcine) (Heparin -) 1,000 unit IVPUSH PRN PRN Last Admin: 04/23/17 01:41 Dose: 1,000 unit Heparin Sodium/Dextrose (Heparin Infusion -) 500 mls @ 20 mls/hr IVPB TITR [facility] ; 1,000 UNITS/HR PRN Reason: Protocol Last Admin: 04/27/17 08:32 Dose: 31 mls/hr Isosorbide Mononitrate (Imdur -) 30 mg PO DAILY [facility] Last Admin: 04/27/17 09:54 Dose: 30 mg Losartan Potassium (Cozaar -) 50 mg PO DAILY [facility] Last Admin: 04/27/17 09:54 Dose: 50 mg Metoprolol Succinate (Toprol Xl -) 50 mg PO BID [facility] Last Admin: 04/27/17 09:54 Dose: 50 mg Oxycodone HCl (Roxicodone -) 5 mg PO Q6H PRN PRN Reason: PAIN Last Admin: 04/27/17 09:53 Dose: 5 mg Ranitidine HCl (Zantac -) 150 mg PO DAILY [facility] Last Admin: 04/27/17 09:54 Dose: 150 mg Fluticasone/Salmeterol (Advair 100mcg/50mcg -) 1 puff IH BID [facility] Last Admin: 04/27/17 09:51 Dose: 1 puff Trimethoprim/Sulfamethoxazole (Bactrim Ds -) 1 each PO BID [facility] Last Admin: 04/27/17 09:53 Dose: 1 each Warfarin Sodium (Coumadin -) 5 mg PO DAILY@1800 [facility] - Objective Vital Signs: Vital Signs Temperature 99.7 F H 04/27/17 02:00 Pulse Rate 112 H 04/27/17 10:54 Respiratory Rate 20 04/27/17 02:00 Blood Pressure 109/65 04/27/17 02:00 O2 Sat by Pulse Oximetry (%) 95 04/27/17 10:54 Elderly F c/O weakness and SOB HEENT: Mm moist , mild anemia NECK: JVD +, trachea central no thyromegaly CHEST: B/L Diffuse wheezing and basal crept ABD: Obese non tender Bs + EXT: + edema feet, 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 Labs: CBC, BMP 04/27/17 05:10 04/27/17 05:10 INR, PTT INR 1.16 (0.82-1.09) H 04/22/17 07:49 Problem List - Problems (1) Atrial fibrillation with RVR Assessment/Plan: Rtae controlled INR subtherapeutic on Heparin drip Code(s): I48.91 - UNSPECIFIED ATRIAL FIBRILLATION (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 Assessment/Plan: F/U BMP Code(s): I12.9 - HYPERTENSIVE CHRONIC KIDNEY DISEASE W STG 1-4/UNSP CHR KDNY; N18.4 - CHRONIC KIDNEY DISEASE, STAGE 4 (SEVERE) (3) UTI (urinary tract infection), bacterial Assessment/Plan: Urine grew Proteus Vulagris resistent to Azactam so abx switched to Levofloxacin Code(s): N39.0 - URINARY TRACT INFECTION, SITE NOT SPECIFIED; A49.9 - BACTERIAL INFECTION, UNSPECIFIED (4) CHF (NYHA class II, ACC/AHA stage C) Assessment/Plan: ECHO shows global hypokinesia with moderately reduced EF and diastolic dysfunction , elevated BNP level on B Blockers and Losaran will optimize B Blockers increase Meteorology, EKG shows MAT with 121 will optimize B Blockers , will hold snf AC till we get more clear picture of rhythm. Code(s): I50.9 - HEART FAILURE, UNSPECIFIED (5) COPD mixed type Assessment/Plan: Patient has H/O COPD p exam consistent with chest congestion and B/L wheezing will add Duneb q 6 hrly. Code(s): J44.9 - CHRONIC OBSTRUCTIVE PULMONARY DISEASE, UNSPECIFIED
[2017-04-27 14:15] LABS: MAGNESIUM 1.8 mg/dL (1.8-2.4)
[2017-04-27] MEDS: ALBUTEROL SO4 0.083% IH SOL 2.5 MG/3 ML VIAL.NEB. NEB PRN (14:28)
--- NOTE | 2017-04-27 15:22 | PN ---
Progress Note (short form) - Note Progress Note: Rhythm strip revealed the presense of atrial flutter 3:1 or 4:1 av conduction, repeat EKG confirms the diagnosis with decrease in heart rate to 80/min. Would suggest adding Amiodarone 200mg. BID and continue Toprol. If there is slow ventricular response, dose of Toprol can be reduced or D/C'd. Patient remains hemodynamically stable. Total spent 1hr and 15 mins.
[2017-04-27] MEDS ORDERED: SODIUM POLYSTYRENE SULFONATE 15 GM/60 ML BOTTLE ONE (15:30)
[2017-04-27] MEDS ORDERED: WARFARIN NA 5 MG TABLET (UD) PO SCH (18:00)
[2017-04-27] MEDS ORDERED: MEROPENEM 1 GM PUSH 20 ML IVPUSH ONE (19:15)
[2017-04-27 20:47] LABS: INR 1.34 (0.82-1.09); PROTHROMBIN TIME (PATIENT) 15.1 SEC (9.98-11.88)
[2017-04-27 20:58] LABS: ACTIVATED PTT 75.1 SECONDS (26.9-34.4)
[2017-04-27] MEDS: AMIODARONE HCL 200 MG TABLET (FP) PO SCH (21:48)
[2017-04-28 07:34] LABS: BASOPHIL 1.3 % (0-2.0); EOSINOPHIL 7.9 % (0-4.5); MCH 28.2 pg (25.7-33.7); MCHC 31.7 g/dl (32.0-36.0); MEAN CELL VOLUME 89.1 fl (80-96); NEUTROPHILS 65.5 % (42.8-82.8); PLATELET COUNT 285 K/MM3 (134-434); RDW 14.5 % (11.6-15.6); WHITE BLOOD COUNT 11.7 K/mm3 (4.0-10.0)
[2017-04-28 07:51] LABS: INR 1.28 (0.82-1.09); PROTHROMBIN TIME (PATIENT) 14.5 SEC (9.98-11.88)
[2017-04-28 08:49] LABS: ALBUMIN 2.1 g/dl (3.4-5.0); ALK PHOS 58 U/L (45-117); ANION GAP 9 (8-16); BILIRUBIN,TOTAL 0.6 mg/dL (0.2-1.0); CALCIUM 8.3 mg/dL (8.5-10.1); CO2 23 mmol/L (21-32); CREATININE 1.8 mg/dL (0.55-1.02); GLUCOSE,RANDOM 90 mg/dL (74-106); SGOT/AST 28 U/L (15-37); SGPT/ALT 41 U/L (12-78); TOT PROT 6.1 g/dl (6.4-8.2)
--- NOTE | 2017-04-28 09:18 | PN ---
Progress Note, Physician Chief Complaint: Feels better History of Present Illness: Case discussed with Dr Melendrez Still in Atrial flutter 2:1 started on Amiodorone - Current Medication List Current Medications: Active Medications Amiodarone HCl (Cordarone -) 200 mg PO BID [facility] Last Admin: 04/27/17 21:48 Dose: 200 mg Ascorbic Acid (Vitamin C -) 500 mg PO DAILY [facility] Last Admin: 04/27/17 09:54 Dose: 500 mg Aspirin (Asa -) 81 mg PO DAILY [facility] Last Admin: 04/27/17 09:53 Dose: 81 mg Cholecalciferol (Vitamin D3 -) 5,000 unit PO DAILY [facility] Last Admin: 04/27/17 09:53 Dose: 5,000 unit Diazepam (Valium -) 5 mg PO HS PRN Guaifenesin (Robitussin -) 10 ml PO Q6H PRN Last Admin: 04/27/17 22:10 Dose: 10 ml Heparin Sodium (Porcine) (Heparin -) 5,000 unit IVPUSH PRN PRN PRN Reason: Heparin Last Admin: 04/27/17 08:32 Dose: 5,000 unit Heparin Sodium (Porcine) (Heparin -) 1,000 unit IVPUSH PRN PRN Last Admin: 04/23/17 01:41 Dose: 1,000 unit Heparin Sodium/Dextrose (Heparin Infusion -) 500 mls @ 20 mls/hr IVPB TITR [facility] ; 1,000 UNITS/HR PRN Reason: Protocol Last Admin: 04/27/17 18:07 Dose: 30 mls/hr Isosorbide Mononitrate (Imdur -) 30 mg PO DAILY [facility] Last Admin: 04/27/17 09:54 Dose: 30 mg Losartan Potassium (Cozaar -) 50 mg PO DAILY [facility] Last Admin: 04/27/17 09:54 Dose: 50 mg Metoprolol Succinate (Toprol Xl -) 50 mg PO BID [facility] Last Admin: 04/27/17 21:48 Dose: 50 mg Oxycodone HCl (Roxicodone -) 5 mg PO Q6H PRN PRN Reason: PAIN Last Admin: 04/27/17 21:47 Dose: 5 mg Ranitidine HCl (Zantac -) 150 mg PO DAILY [facility] Last Admin: 04/27/17 09:54 Dose: 150 mg Fluticasone/Salmeterol (Advair 100mcg/50mcg -) 1 puff IH BID [facility] Last Admin: 04/27/17 21:46 Dose: 1 puff Trimethoprim/Sulfamethoxazole (Bactrim Ds -) 1 each PO BID [facility] Last Admin: 04/27/17 09:53 Dose: 1 each - Objective Vital Signs: Vital Signs Temperature 99.2 F 04/28/17 06:00 Pulse Rate 119 H 04/28/17 06:00 Respiratory Rate 20 04/28/17 06:00 Blood Pressure 112/66 04/28/17 06:00 O2 Sat by Pulse Oximetry (%) 95 04/27/17 21:00 Constitutional: Yes: No Distress Eyes: Yes: WNL HENT: Yes: WNL Neck: Yes: WNL Cardiovascular: Yes: Tachycardia Respiratory: Yes: Regular Gastrointestinal: Yes: WNL ...Rectal Exam: Yes: Deferred Musculoskeletal: Yes: Muscle Weakness Labs: CBC, BMP 04/28/17 05:18 04/28/17 05:18 INR, PTT INR 1.28 (0.82-1.09) H 04/28/17 05:18 Assessment/Plan Contnue as per cardiology
--- NOTE | 2017-04-28 09:44 | PN ---
Progress Note (short form) - Note Progress Note: 86-year-old -[place] female, continues to have atrial flutter with varying AV response and presently is back in 2-1 A-V conduction.patient was started on amiodarone 200 mg by mouth twice and continues to be on Toprol XL 50 mg twice a day. On 04/27/17Knauer and 15 minutes w trying to control her rhythm. No history of chest pain or discomfort reported.no history of cough or expectoration or wheezing. Active Medications Generic Name Dose Route Start Last Admin Trade Name Freq PRN Reason Stop Dose Admin Amiodarone HCl 200 mg 04/27/17 22:00 04/28/17 09:48 Cordarone - PO 200 mg BID [facility] Administration Ascorbic Acid 500 mg 04/23/17 10:00 04/28/17 12:40 Vitamin C - PO 500 mg DAILY [facility] Administration Aspirin 81 mg 04/23/17 10:00 04/28/17 09:48 Asa - PO 81 mg DAILY [facility] Administration Cholecalciferol 5,000 unit 04/23/17 10:00 04/28/17 09:48 Vitamin D3 - PO 5,000 unit DAILY [facility] Administration Diazepam 5 mg 04/25/17 22:26 Valium - PO HS PRN Guaifenesin 10 ml 04/25/17 17:04 04/28/17 17:01 Robitussin - PO 10 ml Q6H PRN Administration Heparin Sodium (Porcine) 1,000 unit 04/23/17 01:33 04/23/17 01:41 Heparin - IVPUSH 1,000 unit PRN PRN Administration Ertapenem 1 gm/ Sodium 50 mls @ 100 mls/hr 04/28/17 14:30 04/28/17 16:50 Chloride IVPB 100 mls/hr DAILY [facility] Administration Protocol Isosorbide Mononitrate 30 mg 04/23/17 10:00 04/28/17 12:40 Imdur - PO 30 mg DAILY [facility] Administration Losartan Potassium 50 mg 04/23/17 10:00 04/28/17 12:40 Cozaar - PO 50 mg DAILY [facility] Administration Metoprolol Succinate 50 mg 04/25/17 22:00 04/28/17 09:48 Toprol Xl - PO 50 mg BID [facility] Administration Oxycodone HCl 5 mg 04/25/17 22:26 04/28/17 09:47 Roxicodone - PO 5 mg Q6H PRN Administration PAIN Ranitidine HCl 150 mg 04/23/17 10:00 04/28/17 09:48 Zantac - PO 150 mg DAILY [facility] Administration Fluticasone/Salmeterol 1 puff 04/26/17 12:30 04/28/17 12:39 Advair 100mcg/50mcg - IH 1 puff BID [facility] Administration Trimethoprim/Sulfamethoxazole 1 each 04/25/17 11:00 04/27/17 09:53 Bactrim Ds - PO 1 each BID [facility] Administration 86-year-old female was in no acute distress, no pallor, cyanosis, clubbing or jaundice. Last Vital Signs Temp Pulse Resp BP Pulse Ox 99.3 F 121 H 19 100/42 97 04/28/17 18:00 04/28/17 18:00 04/28/17 18:00 04/28/17 18:00 04/28/17 11:40 NECK: Supple, no jugular venous distention carotids were 2+ and upstrokes were normal. HEART: PMI was in the fifth intercostal space. No heaves or thrills, heart sounds were distant, no murmur or gallops were heard. LUNGS: Clear on auscultation. ABDOMEN: soft, obese, nontender. No hepatosplenomegaly was present. No palpable masses were felt. EXTREMITIES: No calf tenderness or dependent edema. A: 1. Atrial flutter with 2:1 AV conduction. 2. COPD. 3. Hypertension 4. History of coronary artery disease. 5. Exogenous obesity. P: 1. Continue present medications. 2. If left ventricular respons considered increasing the dose of Toprol. 3. Coumadinization.
[2017-04-28] MEDS: oxyCODONE HCL 5 MG TABLET PO PRN ×2 (09:47→21:48)
[2017-04-28] MEDS: METOPROLOL SUCCINATE 50 MG TAB.SR.24H (FP) PO SCH ×2 (09:48→21:44)
[2017-04-28] MEDS: RANITIDINE HCL 150 MG TABLET (FP) PO SCH (09:48)
[2017-04-28] MEDS: AMIODARONE HCL 200 MG TABLET (FP) PO SCH ×2 (09:48→21:44)
[2017-04-28] MEDS: ASPIRIN 81 MG CHEWABLE TABLETS PO SCH (09:48)
[2017-04-28] MEDS: CHOLECALCIFEROL (VITAMIN D3) 1,000 UNIT TABLET (FP) PO SCH (09:48)
[2017-04-28] MEDS: FLUTICASONE/SALMETEROL 100 MCG/50 MCG DISKUS IH SCH ×2 (12:39→21:44)
[2017-04-28] MEDS: ISOSORBIDE MONONITRATE 30 MG TAB.SR.24H (FP) PO SCH (12:40)
[2017-04-28] MEDS: ASCORBIC ACID 500 MG TABLET (FP) PO SCH (12:40)
[2017-04-28] MEDS: LOSARTAN POTASSIUM 50 MG TABLET (FP) PO SCH (12:40)
--- NOTE | 2017-04-28 14:06 | PN ---
Progress Note, Physician History of Present Illness: patient still does not feel well cardio note noted events from yesterday noted lethargy improved - Current Medication List Current Medications: Active Medications Amiodarone HCl (Cordarone -) 200 mg PO BID [facility] Last Admin: 04/28/17 09:48 Dose: 200 mg Ascorbic Acid (Vitamin C -) 500 mg PO DAILY [facility] Last Admin: 04/28/17 12:40 Dose: 500 mg Aspirin (Asa -) 81 mg PO DAILY [facility] Last Admin: 04/28/17 09:48 Dose: 81 mg Cholecalciferol (Vitamin D3 -) 5,000 unit PO DAILY [facility] Last Admin: 04/28/17 09:48 Dose: 5,000 unit Diazepam (Valium -) 5 mg PO HS PRN Guaifenesin (Robitussin -) 10 ml PO Q6H PRN Last Admin: 04/27/17 22:10 Dose: 10 ml Heparin Sodium (Porcine) (Heparin -) 5,000 unit IVPUSH PRN PRN PRN Reason: Heparin Last Admin: 04/27/17 08:32 Dose: 5,000 unit Heparin Sodium (Porcine) (Heparin -) 1,000 unit IVPUSH PRN PRN Last Admin: 04/23/17 01:41 Dose: 1,000 unit Heparin Sodium/Dextrose (Heparin Infusion -) 500 mls @ 20 mls/hr IVPB TITR MALIK ; 1,000 UNITS/HR PRN Reason: Protocol Last Admin: 04/27/17 18:07 Dose: 30 mls/hr Isosorbide Mononitrate (Imdur -) 30 mg PO DAILY [facility] Last Admin: 04/28/17 12:40 Dose: 30 mg Losartan Potassium (Cozaar -) 50 mg PO DAILY [facility] Last Admin: 04/28/17 12:40 Dose: 50 mg Metoprolol Succinate (Toprol Xl -) 50 mg PO BID [facility] Last Admin: 04/28/17 09:48 Dose: 50 mg Oxycodone HCl (Roxicodone -) 5 mg PO Q6H PRN PRN Reason: PAIN Last Admin: 04/28/17 09:47 Dose: 5 mg Ranitidine HCl (Zantac -) 150 mg PO DAILY [facility] Last Admin: 04/28/17 09:48 Dose: 150 mg Fluticasone/Salmeterol (Advair 100mcg/50mcg -) 1 puff IH BID [facility] Last Admin: 04/28/17 12:39 Dose: 1 puff Trimethoprim/Sulfamethoxazole (Bactrim Ds -) 1 each PO BID [facility] Last Admin: 04/27/17 09:53 Dose: 1 each - Objective Vital Signs: Vital Signs Temperature 99.2 F 04/28/17 06:00 Pulse Rate 119 H 04/28/17 11:40 Respiratory Rate 20 04/28/17 06:00 Blood Pressure 112/66 04/28/17 06:00 O2 Sat by Pulse Oximetry (%) 97 04/28/17 11:40 Constitutional: Yes: No Distress, Calm Cardiovascular: Yes: Tachycardia, Pulse Irregular Respiratory: Yes: Regular, On Nasal O2, Poor Air Entry, Rhonchi Gastrointestinal: Yes: Normal Bowel Sounds, Soft Musculoskeletal: Yes: WNL Extremities: Yes: WNL Neurological: Yes: Alert, Oriented Psychiatric: Yes: Alert, Oriented Labs: CBC, BMP 04/28/17 05:18 04/28/17 05:18 INR, PTT INR 1.28 (0.82-1.09) H 04/28/17 05:18 Assessment/Plan patient evaluated and seen i suspect patient has pneumonia pneumonia tachy afib sob fever plan continue current mgmt will start ertapenam
[2017-04-28] MEDS ORDERED: PT OWN MED DRAWER 7, Y5N ONE (15:43)
[2017-04-28] MEDS: ERTAPENEM SODIUM 1 GM in SODIUM CHLORIDE 50 ML IVPB SCH (16:50)
[2017-04-28] MEDS: HEPARIN INFUSION - 500 ML IVPB SCH ×2 (17:01→21:52)
[2017-04-28] MEDS: guaiFENesin 200 MG/10 ML 10 ML UNIT-DOSE CUPS PO PRN (17:01)
--- NOTE | 2017-04-28 20:50 | EKG ---
Test Reason : Blood Pressure : / mmHG Vent. Rate : 121 BPM Atrial Rate : 121 BPM P-R Int : 000 ms QRS Dur : 100 ms QT Int : 322 ms P-R-T Axes : 106 -39 086 degrees QTc Int : 457 ms SUPRAVENTRICULAR TACHYCARDIA VS. SINUS TACHYCARDIA WITH 1ST DEGREE A-V BLOCK LEFT AXIS DEVIATION POSSIBLE ANTERIOR INFARCT , AGE UNDETERMINED ABNORMAL ECG WHEN COMPARED WITH ECG OF 23-APR-2017 17:52, NO SIGNIFICANT CHANGE WAS FOUND Confirmed by ЕЛЕНА MILLER MD ([id number]) on 04/28/2017 8:50:03 PM Referred By: Confirmed By:ЕЛЕНА MILLER MD
--- NOTE | 2017-04-29 07:37 | EKG ---
Test Reason : Blood Pressure : / mmHG Vent. Rate : 081 BPM Atrial Rate : 250 BPM P-R Int : 000 ms QRS Dur : 100 ms QT Int : 330 ms P-R-T Axes : 000 -28 -12 degrees QTc Int : 383 ms ATRIAL FLUTTER WITH VARIABLE A-V BLOCK NONSPECIFIC T WAVE ABNORMALITY ABNORMAL ECG WHEN COMPARED WITH ECG OF 27-APR-2017 13:48, VENT. RATE HAS DECREASED BY 40 BPM Confirmed by BILLIE KRAFT, VENANCIO ([id number]) on 04/29/2017 7:36:54 AM Referred By: Eboni BARTHOLOMEW Confirmed By:VENANCIO WISE MD
--- NOTE | 2017-04-29 07:40 | EKG ---
Test Reason : Blood Pressure : / mmHG Vent. Rate : 121 BPM Atrial Rate : 242 BPM P-R Int : 000 ms QRS Dur : 096 ms QT Int : 366 ms P-R-T Axes : 236 -28 101 degrees QTc Int : 519 ms ATRIAL FLUTTER WITH 2:1 A-V CONDUCTION NONSPECIFIC ST AND T WAVE ABNORMALITY ABNORMAL ECG WHEN COMPARED WITH ECG OF 25-APR-2017 10:33, LIKELY NO SIGNIFICANT CHANGES PATIENT SITTING IN CHAIR DURING EKG Confirmed by VENANCIO WISE MD ([id number]) on 04/29/2017 7:39:44 AM Referred By: Eboni BARTHOLOMEW Confirmed By:VENANCIO WISE MD
[2017-04-29] MEDS ORDERED: PT OWN MED DRAWER 7, Y5N ONE (08:34)
[2017-04-29] MEDS: oxyCODONE HCL 5 MG TABLET PO PRN ×2 (08:45→21:55)
[2017-04-29] MEDS: guaiFENesin 200 MG/10 ML 10 ML UNIT-DOSE CUPS PO PRN ×3 (08:49→21:52)
[2017-04-29] MEDS: CHOLECALCIFEROL (VITAMIN D3) 1,000 UNIT TABLET (FP) PO SCH (09:00)
[2017-04-29] MEDS: ERTAPENEM SODIUM 1 GM in SODIUM CHLORIDE 50 ML IVPB SCH (09:01)
[2017-04-29] MEDS: ASPIRIN 81 MG CHEWABLE TABLETS PO SCH (09:02)
[2017-04-29] MEDS: RANITIDINE HCL 150 MG TABLET (FP) PO SCH (09:02)
[2017-04-29] MEDS: ASCORBIC ACID 500 MG TABLET (FP) PO SCH (09:03)
[2017-04-29] MEDS: FLUTICASONE/SALMETEROL 100 MCG/50 MCG DISKUS IH SCH ×2 (09:10→21:51)
--- NOTE | 2017-04-29 09:10 | PN ---
Progress Note, Physician Chief Complaint: Feels tired History of Present Illness: Admitted with afib /flutter On amiodorone - Current Medication List Current Medications: Active Medications Amiodarone HCl (Cordarone -) 200 mg PO BID [facility] Last Admin: 04/28/17 21:44 Dose: 200 mg Ascorbic Acid (Vitamin C -) 500 mg PO DAILY [facility] Last Admin: 04/29/17 09:03 Dose: 500 mg Aspirin (Asa -) 81 mg PO DAILY [facility] Last Admin: 04/29/17 09:02 Dose: 81 mg Cholecalciferol (Vitamin D3 -) 5,000 unit PO DAILY [facility] Last Admin: 04/29/17 09:00 Dose: 5,000 unit Guaifenesin (Robitussin -) 10 ml PO Q6H PRN Last Admin: 04/29/17 08:49 Dose: 10 ml Heparin Sodium (Porcine) (Heparin -) 1,000 unit IVPUSH PRN PRN Last Admin: 04/23/17 01:41 Dose: 1,000 unit Ertapenem 1 gm/ Sodium (Chloride) 50 mls @ 100 mls/hr IVPB DAILY [facility] PRN Reason: Protocol Last Admin: 04/29/17 09:01 Dose: 100 mls/hr Isosorbide Mononitrate (Imdur -) 30 mg PO DAILY [facility] Last Admin: 04/28/17 12:40 Dose: 30 mg Losartan Potassium (Cozaar -) 50 mg PO DAILY [facility] Last Admin: 04/28/17 12:40 Dose: 50 mg Metoprolol Succinate (Toprol Xl -) 50 mg PO BID [facility] Last Admin: 04/28/17 21:44 Dose: 50 mg Oxycodone HCl (Roxicodone -) 5 mg PO Q6H PRN PRN Reason: PAIN Last Admin: 04/29/17 08:45 Dose: 5 mg Ranitidine HCl (Zantac -) 150 mg PO DAILY [facility] Last Admin: 04/29/17 09:02 Dose: 150 mg Fluticasone/Salmeterol (Advair 100mcg/50mcg -) 1 puff IH BID [facility] Last Admin: 04/28/17 21:44 Dose: 1 puff Trimethoprim/Sulfamethoxazole (Bactrim Ds -) 1 each PO BID [facility] Last Admin: 04/27/17 09:53 Dose: 1 each - Objective Vital Signs: Vital Signs Temperature 99 F 04/29/17 06:00 Pulse Rate 116 H 04/29/17 06:00 Respiratory Rate 20 04/29/17 06:00 Blood Pressure 97/62 04/29/17 06:00 O2 Sat by Pulse Oximetry (%) 95 04/28/17 21:00 Constitutional: Yes: Anxious Eyes: Yes: WNL HENT: Yes: WNL Neck: Yes: WNL Cardiovascular: Yes: Tachycardia (Heart rate 120 to 130) Respiratory: Yes: Regular Gastrointestinal: Yes: WNL ...Rectal Exam: Yes: Deferred Genitourinary: Yes: WNL Breast(s): Yes: WNL Musculoskeletal: Yes: Muscle Weakness Edema: No Neurological: Yes: Alert Labs: CBC, BMP 04/28/17 05:18 04/28/17 05:18 INR, PTT INR 1.28 (0.82-1.09) H 04/28/17 05:18
[2017-04-29] MEDS: METOPROLOL SUCCINATE 50 MG TAB.SR.24H (FP) PO SCH ×2 (09:57→21:52)
[2017-04-29] MEDS: LOSARTAN POTASSIUM 50 MG TABLET (FP) PO SCH (10:43)
[2017-04-29] MEDS: ISOSORBIDE MONONITRATE 30 MG TAB.SR.24H (FP) PO SCH (11:18)
[2017-04-29] MEDS: AMIODARONE HCL 200 MG TABLET (FP) PO SCH ×3 (11:18→21:52)
[2017-04-29 11:38] LABS: INR 1.3 (0.82-1.09); PROTHROMBIN TIME (PATIENT) 14.7 SEC (9.98-11.88)
[2017-04-29] MEDS ORDERED: DIGOXIN 0.5 MG/2 ML AMPUL IVPUSH ONE (12:15)
[2017-04-29] MEDS ORDERED: DIGOXIN 0.5 MG/2 ML AMPUL ONE (12:19)
[2017-04-29] MEDS ORDERED: HEPARIN NA (PORCINE) 5,000 UNITS/ML 1ML VIAL IVPUSH PRN ×2 (12:40)
[2017-04-29] MEDS: HEPARIN - 25,000 UNIT in SODIUM CHLORIDE 495 ML IV SCH (12:52)
--- NOTE | 2017-04-29 15:18 | PN ---
Progress Note, Physician History of Present Illness: stable still not feeling very well looks comfortable - Current Medication List Current Medications: Active Medications Amiodarone HCl (Cordarone -) 200 mg PO BID [facility] Last Admin: 04/29/17 13:06 Dose: 200 mg Ascorbic Acid (Vitamin C -) 500 mg PO DAILY [facility] Last Admin: 04/29/17 09:03 Dose: 500 mg Aspirin (Asa -) 81 mg PO DAILY [facility] Last Admin: 04/29/17 09:02 Dose: 81 mg Cholecalciferol (Vitamin D3 -) 5,000 unit PO DAILY [facility] Last Admin: 04/29/17 09:00 Dose: 5,000 unit Guaifenesin (Robitussin -) 10 ml PO Q6H PRN Last Admin: 04/29/17 08:49 Dose: 10 ml Heparin Sodium (Porcine) (Heparin -) 5,000 unit IVPUSH PRN PRN Heparin Sodium (Porcine) (Heparin -) 1,000 unit IVPUSH PRN PRN Ertapenem 1 gm/ Sodium (Chloride) 50 mls @ 100 mls/hr IVPB DAILY [facility] PRN Reason: Protocol Last Admin: 04/29/17 09:01 Dose: 100 mls/hr Heparin Sodium (Porcine) 25, (000 unit/ Sodium Chloride) 500 mls @ 20 mls/hr IV TITR MALIK; 1,000 UNIT/HR PRN Reason: Protocol Last Admin: 04/29/17 12:52 Dose: 30 mls/hr Isosorbide Mononitrate (Imdur -) 30 mg PO DAILY [facility] Last Admin: 04/29/17 11:18 Dose: Not Given Losartan Potassium (Cozaar -) 50 mg PO DAILY [facility] Last Admin: 04/29/17 10:43 Dose: Not Given Metoprolol Succinate (Toprol Xl -) 50 mg PO BID [facility] Last Admin: 04/29/17 09:57 Dose: 50 mg Oxycodone HCl (Roxicodone -) 5 mg PO Q6H PRN PRN Reason: PAIN Last Admin: 04/29/17 08:45 Dose: 5 mg Ranitidine HCl (Zantac -) 150 mg PO DAILY [facility] Last Admin: 04/29/17 09:02 Dose: 150 mg Fluticasone/Salmeterol (Advair 100mcg/50mcg -) 1 puff IH BID [facility] Last Admin: 04/29/17 09:10 Dose: 1 puff Trimethoprim/Sulfamethoxazole (Bactrim Ds -) 1 each PO BID [facility] Last Admin: 04/27/17 09:53 Dose: 1 each Warfarin Sodium (Coumadin -) 10 mg PO ONCE@1800 ONE Stop: 04/29/17 18:01 - Objective Vital Signs: Vital Signs Temperature 98.8 F 04/29/17 14:49 Pulse Rate 120 H 04/29/17 14:49 Respiratory Rate 18 04/29/17 14:49 Blood Pressure 105/69 04/29/17 14:49 O2 Sat by Pulse Oximetry (%) 97 04/29/17 08:10 Constitutional: Yes: No Distress, Calm, Obese Cardiovascular: Yes: Tachycardia, Pulse Irregular Respiratory: Yes: Regular, On Nasal O2, Poor Air Entry (bases) Gastrointestinal: Yes: Normal Bowel Sounds, Soft Musculoskeletal: Yes: WNL Extremities: Yes: WNL Neurological: Yes: Alert, Oriented Psychiatric: Yes: Alert, Oriented Labs: CBC, BMP 04/28/17 05:18 04/28/17 05:18 INR, PTT INR 1.30 (0.82-1.09) H 04/29/17 10:20 Assessment/Plan pneumonia tachy afib sob fever plan continue iv abx incentive vasiliy rest as per cardio and primary team
[2017-04-29] MEDS ORDERED: WARFARIN NA 10 MG TABLET (FP) PO ONE (18:00)
--- NOTE | 2017-04-29 22:53 | PN ---
Progress Note (short form) - Note Progress Note: 86-year-old -[place] female, continues to have atrial flutter with varying AV response and presently is back in 2-1 A-V conduction. Patient continues to atrial flutter with 2:1 AV conduction. No SOB or chest pain or discomfort reported. Active Medications Generic Name Dose Route Start Last Admin Trade Name Freq PRN Reason Stop Dose Admin Amiodarone HCl 200 mg 04/27/17 22:00 04/29/17 21:52 Cordarone - PO 200 mg BID MALIK Administration Ascorbic Acid 500 mg 04/23/17 10:00 04/29/17 09:03 Vitamin C - PO 500 mg DAILY [facility] Administration Aspirin 81 mg 04/23/17 10:00 04/29/17 09:02 Asa - PO 81 mg DAILY [facility] Administration Cholecalciferol 5,000 unit 04/23/17 10:00 04/29/17 09:00 Vitamin D3 - PO 5,000 unit DAILY [facility] Administration Guaifenesin 10 ml 04/25/17 17:04 04/29/17 21:52 Robitussin - PO 10 ml Q6H PRN Administration Heparin Sodium (Porcine) 5,000 unit 04/29/17 12:40 Heparin - IVPUSH PRN PRN Heparin Sodium (Porcine) 1,000 unit 04/29/17 12:40 Heparin - IVPUSH PRN PRN Ertapenem 1 gm/ Sodium 50 mls @ 100 mls/hr 04/28/17 14:30 04/29/17 09:01 Chloride IVPB 100 mls/hr DAILY [facility] Administration Protocol Heparin Sodium (Porcine) 25, 500 mls @ 20 mls/hr 04/29/17 12:45 04/29/17 12:52 000 unit/ Sodium Chloride IV 30 mls/hr TITR MALIK Administration Protocol 1,000 UNIT/HR Isosorbide Mononitrate 30 mg 04/23/17 10:00 04/29/17 11:18 Imdur - PO Not Given DAILY [facility] Losartan Potassium 50 mg 04/23/17 10:00 04/29/17 10:43 Cozaar - PO Not Given DAILY [facility] Metoprolol Succinate 50 mg 04/25/17 22:00 04/29/17 21:52 Toprol Xl - PO 50 mg BID [facility] Administration Oxycodone HCl 5 mg 04/25/17 22:26 04/29/17 21:55 Roxicodone - PO 5 mg Q6H PRN Administration PAIN Ranitidine HCl 150 mg 04/23/17 10:00 04/29/17 09:02 Zantac - PO 150 mg DAILY [facility] Administration Fluticasone/Salmeterol 1 puff 04/26/17 12:30 04/29/17 21:51 Advair 100mcg/50mcg - IH 1 puff BID [facility] Administration Trimethoprim/Sulfamethoxazole 1 each 04/25/17 11:00 04/27/17 09:53 Bactrim Ds - PO 1 each BID [facility] Administration 86-year-old female was in no acute distress, no pallor, cyanosis, clubbing or jaundice. Last Vital Signs Temp Pulse Resp BP Pulse Ox 99.0 F 106 H 18 101/67 98 04/29/17 20:41 04/29/17 20:41 04/29/17 20:41 04/29/17 20:41 04/29/17 20:41 NECK: Supple, no jugular venous distention carotids were 2+ and upstrokes were normal. HEART: PMI was in the fifth intercostal space. No heaves or thrills, heart sounds were distant, no murmur or gallops were heard. LUNGS: Clear on auscultation. ABDOMEN: soft, obese, nontender. No hepatosplenomegaly was present. No palpable masses were felt. EXTREMITIES: No calf tenderness or dependent edema. A: 1. Atrial flutter with 2:1 AV conduction. 2. COPD. 3. Hypertension 4. History of coronary artery disease. 5. Exogenous obesity. P: 1. Digoxin 0.125mg IV. 2. Consider NICOLAS and cardioversion, if no response to therapy. 3. Coumadinization.
--- NOTE | 2017-04-30 08:52 | PN ---
Progress Note, Physician Chief Complaint: feels better History of Present Illness: Heart rate came down to 110 - Current Medication List Current Medications: Active Medications Amiodarone HCl (Cordarone -) 200 mg PO BID [facility] Last Admin: 04/29/17 21:52 Dose: 200 mg Ascorbic Acid (Vitamin C -) 500 mg PO DAILY [facility] Last Admin: 04/29/17 09:03 Dose: 500 mg Aspirin (Asa -) 81 mg PO DAILY [facility] Last Admin: 04/29/17 09:02 Dose: 81 mg Cholecalciferol (Vitamin D3 -) 5,000 unit PO DAILY [facility] Last Admin: 04/29/17 09:00 Dose: 5,000 unit Guaifenesin (Robitussin -) 10 ml PO Q6H PRN Last Admin: 04/29/17 21:52 Dose: 10 ml Heparin Sodium (Porcine) (Heparin -) 5,000 unit IVPUSH PRN PRN Heparin Sodium (Porcine) (Heparin -) 1,000 unit IVPUSH PRN PRN Ertapenem 1 gm/ Sodium (Chloride) 50 mls @ 100 mls/hr IVPB DAILY [facility] PRN Reason: Protocol Last Admin: 04/29/17 09:01 Dose: 100 mls/hr Heparin Sodium (Porcine) 25, (000 unit/ Sodium Chloride) 500 mls @ 20 mls/hr IV TITR MALIK; 1,000 UNIT/HR PRN Reason: Protocol Last Admin: 04/29/17 12:52 Dose: 1,500 unit/hr, 30 mls/hr Isosorbide Mononitrate (Imdur -) 30 mg PO DAILY [facility] Last Admin: 04/29/17 11:18 Dose: Not Given Losartan Potassium (Cozaar -) 50 mg PO DAILY [facility] Last Admin: 04/29/17 10:43 Dose: Not Given Metoprolol Succinate (Toprol Xl -) 50 mg PO BID [facility] Last Admin: 04/29/17 21:52 Dose: 50 mg Oxycodone HCl (Roxicodone -) 5 mg PO Q6H PRN PRN Reason: PAIN Last Admin: 04/29/17 21:55 Dose: 5 mg Ranitidine HCl (Zantac -) 150 mg PO DAILY [facility] Last Admin: 04/29/17 09:02 Dose: 150 mg Fluticasone/Salmeterol (Advair 100mcg/50mcg -) 1 puff IH BID [facility] Last Admin: 04/29/17 21:51 Dose: 1 puff Trimethoprim/Sulfamethoxazole (Bactrim Ds -) 1 each PO BID [facility] Last Admin: 04/27/17 09:53 Dose: 1 each - Objective Vital Signs: Vital Signs Temperature 99.0 F 04/30/17 02:00 Pulse Rate 117 H 04/30/17 02:00 Respiratory Rate 19 04/30/17 02:00 Blood Pressure 123/71 04/30/17 02:00 O2 Sat by Pulse Oximetry (%) 98 04/29/17 21:00 Constitutional: Yes: No Distress Eyes: Yes: WNL HENT: Yes: WNL Neck: Yes: WNL Cardiovascular: Yes: WNL Respiratory: Yes: WNL Gastrointestinal: Yes: WNL ...Rectal Exam: Yes: Deferred Genitourinary: Yes: WNL Integumentary: Yes: WNL Neurological: Yes: Alert Psychiatric: Yes: Alert Labs: CBC, BMP 04/28/17 05:18 04/28/17 05:18 INR, PTT INR 1.30 (0.82-1.09) H 04/29/17 10:20 Assessment/Plan continue same trt
[2017-04-30] MEDS ORDERED: PT OWN MED DRAWER 7, Y5N ONE (09:12)
[2017-04-30 09:14] LABS: INR 1.34 (0.82-1.09); PROTHROMBIN TIME (PATIENT) 15.1 SEC (9.98-11.88)
[2017-04-30] MEDS: oxyCODONE HCL 5 MG TABLET PO PRN ×3 (09:27→23:11)
[2017-04-30] MEDS: ASCORBIC ACID 500 MG TABLET (FP) PO SCH (09:27)
[2017-04-30] MEDS: RANITIDINE HCL 150 MG TABLET (FP) PO SCH (09:27)
[2017-04-30] MEDS: ISOSORBIDE MONONITRATE 30 MG TAB.SR.24H (FP) PO SCH (09:28)
[2017-04-30] MEDS: ASPIRIN 81 MG CHEWABLE TABLETS PO SCH (09:28)
[2017-04-30] MEDS: METOPROLOL SUCCINATE 50 MG TAB.SR.24H (FP) PO SCH ×2 (09:28→21:36)
[2017-04-30] MEDS: AMIODARONE HCL 200 MG TABLET (FP) PO SCH ×2 (09:28→21:36)
[2017-04-30] MEDS: CHOLECALCIFEROL (VITAMIN D3) 1,000 UNIT TABLET (FP) PO SCH (09:28)
[2017-04-30] MEDS: FLUTICASONE/SALMETEROL 100 MCG/50 MCG DISKUS IH SCH ×2 (09:29→21:36)
[2017-04-30] MEDS: ERTAPENEM SODIUM 1 GM in SODIUM CHLORIDE 50 ML IVPB SCH (09:29)
[2017-04-30] MEDS: guaiFENesin 200 MG/10 ML 10 ML UNIT-DOSE CUPS PO PRN ×3 (09:30→23:15)
[2017-04-30] MEDS: HEPARIN - 25,000 UNIT in SODIUM CHLORIDE 495 ML IV SCH ×2 (10:00→17:27)
--- NOTE | 2017-04-30 12:26 | PN ---
Progress Note, Physician History of Present Illness: conitues to improve still wiht increased heart rate breathing better - Current Medication List Current Medications: Active Medications Amiodarone HCl (Cordarone -) 200 mg PO BID [facility] Last Admin: 04/30/17 09:28 Dose: 200 mg Ascorbic Acid (Vitamin C -) 500 mg PO DAILY [facility] Last Admin: 04/30/17 09:27 Dose: 500 mg Aspirin (Asa -) 81 mg PO DAILY [facility] Last Admin: 04/30/17 09:28 Dose: 81 mg Cholecalciferol (Vitamin D3 -) 5,000 unit PO DAILY [facility] Last Admin: 04/30/17 09:28 Dose: 5,000 unit Guaifenesin (Robitussin -) 10 ml PO Q6H PRN Last Admin: 04/30/17 09:30 Dose: 10 ml Heparin Sodium (Porcine) (Heparin -) 5,000 unit IVPUSH PRN PRN Heparin Sodium (Porcine) (Heparin -) 1,000 unit IVPUSH PRN PRN Ertapenem 1 gm/ Sodium (Chloride) 50 mls @ 100 mls/hr IVPB DAILY [facility] PRN Reason: Protocol Last Admin: 04/30/17 09:29 Dose: 100 mls/hr Heparin Sodium (Porcine) 25, (000 unit/ Sodium Chloride) 500 mls @ 20 mls/hr IV TITR MALIK; 1,000 UNIT/HR PRN Reason: Protocol Last Admin: 04/29/17 12:52 Dose: 1,500 unit/hr, 30 mls/hr Isosorbide Mononitrate (Imdur -) 30 mg PO DAILY [facility] Last Admin: 04/30/17 09:28 Dose: 30 mg Losartan Potassium (Cozaar -) 50 mg PO DAILY [facility] Last Admin: 04/29/17 10:43 Dose: Not Given Metoprolol Succinate (Toprol Xl -) 50 mg PO BID [facility] Last Admin: 04/30/17 09:28 Dose: 50 mg Oxycodone HCl (Roxicodone -) 5 mg PO Q6H PRN PRN Reason: PAIN Last Admin: 04/30/17 09:27 Dose: 5 mg Ranitidine HCl (Zantac -) 150 mg PO DAILY [facility] Last Admin: 04/30/17 09:27 Dose: 150 mg Fluticasone/Salmeterol (Advair 100mcg/50mcg -) 1 puff IH BID [facility] Last Admin: 04/30/17 09:29 Dose: 1 puff Trimethoprim/Sulfamethoxazole (Bactrim Ds -) 1 each PO BID [facility] Last Admin: 04/27/17 09:53 Dose: 1 each - Objective Vital Signs: Vital Signs Temperature 98.4 F 04/30/17 09:30 Pulse Rate 116 H 04/30/17 09:30 Respiratory Rate 18 04/30/17 09:30 Blood Pressure 116/74 04/30/17 09:30 O2 Sat by Pulse Oximetry (%) 98 04/30/17 09:00 Constitutional: Yes: No Distress, Calm Cardiovascular: Yes: Tachycardia, Pulse Irregular, S1, S2 Respiratory: Yes: Regular, Poor Air Entry (bases) Gastrointestinal: Yes: Normal Bowel Sounds, Soft Musculoskeletal: Yes: WNL Extremities: Yes: WNL Neurological: Yes: Alert, Oriented Psychiatric: Yes: Alert, Oriented Labs: CBC, BMP 04/28/17 05:18 04/28/17 05:18 INR, PTT INR 1.34 (0.82-1.09) H 04/30/17 05:20 Assessment/Plan pneumonia tachy afib sob fever plan continue current mgmt will stop abx after tomorrows dose continue as per cardio rest as per primary team
[2017-04-30] MEDS: LOSARTAN POTASSIUM 50 MG TABLET (FP) PO SCH (13:17)
[2017-04-30] MEDS ORDERED: WARFARIN NA 10 MG TABLET (FP) PO ONE (18:00)
--- NOTE | 2017-04-30 20:00 | PN ---
Progress Note (short form) - Note Progress Note: 86-year-old -[place]ag[place] female, continues to have atrial flutter with varying AV response and presently is back in 2-1 A-V conduction. Patient continues to atrial flutter with 2:1 AV conduction. Patient continues to remain in atrial flutter despite being on varying drug regimen. Spoke to patient regarding other options, including NICOLAS followed by cardioversion. She is agreeable and arrangement to be made. No SOB or chest discomfort reported. Active Medications Amiodarone HCl (Cordarone -) 200 mg PO BID [facility] Last Admin: 04/30/17 09:28 Dose: 200 mg Ascorbic Acid (Vitamin C -) 500 mg PO DAILY [facility] Last Admin: 04/30/17 09:27 Dose: 500 mg Aspirin (Asa -) 81 mg PO DAILY [facility] Last Admin: 04/30/17 09:28 Dose: 81 mg Cholecalciferol (Vitamin D3 -) 5,000 unit PO DAILY [facility] Last Admin: 04/30/17 09:28 Dose: 5,000 unit Guaifenesin (Robitussin -) 10 ml PO Q6H PRN Last Admin: 04/30/17 17:27 Dose: 10 ml Heparin Sodium (Porcine) (Heparin -) 5,000 unit IVPUSH PRN PRN Heparin Sodium (Porcine) (Heparin -) 1,000 unit IVPUSH PRN PRN Ertapenem 1 gm/ Sodium (Chloride) 50 mls @ 100 mls/hr IVPB DAILY [facility] PRN Reason: Protocol Last Admin: 04/30/17 09:29 Dose: 100 mls/hr Heparin Sodium (Porcine) 25, (000 unit/ Sodium Chloride) 500 mls @ 20 mls/hr IV TITR [facility]IK; 1,000 UNIT/HR PRN Reason: Protocol Last Admin: 04/30/17 17:27 Dose: 1,300 unit/hr, 26 mls/hr Isosorbide Mononitrate (Imdur -) 30 mg PO DAILY [facility] Last Admin: 04/30/17 09:28 Dose: 30 mg Losartan Potassium (Cozaar -) 50 mg PO DAILY [facility] Last Admin: 04/30/17 13:17 Dose: 50 mg Metoprolol Succinate (Toprol Xl -) 50 mg PO BID [facility] Last Admin: 04/30/17 09:28 Dose: 50 mg Oxycodone HCl (Roxicodone -) 5 mg PO Q6H PRN PRN Reason: PAIN Last Admin: 04/30/17 17:45 Dose: 5 mg Ranitidine HCl (Zantac -) 150 mg PO DAILY [facility] Last Admin: 04/30/17 09:27 Dose: 150 mg Fluticasone/Salmeterol (Advair 100mcg/50mcg -) 1 puff IH BID [facility] Last Admin: 04/30/17 09:29 Dose: 1 puff Trimethoprim/Sulfamethoxazole (Bactrim Ds -) 1 each PO BID [facility] Last Admin: 04/27/17 09:53 Dose: 1 each 86-year-old female was in no acute distress, no pallor, cyanosis, clubbing or jaundice. Last Vital Signs Temp Pulse Resp BP Pulse Ox 98.0 F 120 H 18 96/50 98 04/30/17 17:00 04/30/17 17:00 04/30/17 17:00 04/30/17 17:00 04/30/17 09:00 NECK: Supple, no jugular venous distention carotids were 2+ and upstrokes were normal. HEART: PMI was in the fifth intercostal space. No heaves or thrills, heart sounds were distant, no murmur or gallops were heard. LUNGS: Clear on auscultation. ABDOMEN: soft, obese, nontender. No hepatosplenomegaly was present. No palpable masses were felt. EXTREMITIES: No calf tenderness or dependent edema. A: 1. Atrial flutter with 2:1 AV conduction. 2. COPD. 3. Hypertension 4. History of coronary artery disease. 5. Exogenous obesity. 6. CAD/angina pectoris, presently stable. P: 1. NICOLAS?cardioversion. 2. Continue current therapy 3. Coumadinization in progress.
[2017-05-01] MEDS: guaiFENesin 200 MG/10 ML 10 ML UNIT-DOSE CUPS PO PRN ×2 (08:30→17:23)
[2017-05-01] MEDS: oxyCODONE HCL 5 MG TABLET PO PRN ×2 (08:30→18:50)
[2017-05-01 08:53] LABS: INR 1.77 (0.82-1.09)
[2017-05-01] MEDS: ERTAPENEM SODIUM 1 GM in SODIUM CHLORIDE 50 ML IVPB SCH (09:57)
[2017-05-01] MEDS: ISOSORBIDE MONONITRATE 30 MG TAB.SR.24H (FP) PO SCH (09:58)
[2017-05-01] MEDS: ASCORBIC ACID 500 MG TABLET (FP) PO SCH (09:58)
[2017-05-01] MEDS: CHOLECALCIFEROL (VITAMIN D3) 1,000 UNIT TABLET (FP) PO SCH (09:58)
[2017-05-01] MEDS: METOPROLOL SUCCINATE 50 MG TAB.SR.24H (FP) PO SCH ×2 (09:58→21:13)
[2017-05-01] MEDS: FLUTICASONE/SALMETEROL 100 MCG/50 MCG DISKUS IH SCH ×2 (09:59→21:11)
[2017-05-01] MEDS: RANITIDINE HCL 150 MG TABLET (FP) PO SCH (09:59)
[2017-05-01] MEDS: ASPIRIN 81 MG CHEWABLE TABLETS PO SCH (09:59)
[2017-05-01] MEDS: AMIODARONE HCL 200 MG TABLET (FP) PO SCH ×2 (09:59→21:13)
[2017-05-01] MEDS: LOSARTAN POTASSIUM 50 MG TABLET (FP) PO SCH (10:01)
[2017-05-01 10:33] LABS: BASOPHIL 1.4 % (0-2.0); EOSINOPHIL 6.6 % (0-4.5); MCH 28.5 pg (25.7-33.7); MCHC 31.1 g/dl (32.0-36.0); MEAN CELL VOLUME 91.4 fl (80-96); NEUTROPHILS 63.6 % (42.8-82.8); PLATELET COUNT 305 K/MM3 (134-434); RDW 14.6 % (11.6-15.6); WHITE BLOOD COUNT 11.8 K/mm3 (4.0-10.0)
[2017-05-01 10:33] LABS: ANION GAP 7 (8-16); CO2 25 mmol/L (21-32); CREATININE 1.8 mg/dL (0.55-1.02); GLUCOSE,RANDOM 90 mg/dL (74-106)
[2017-05-01] MEDS ORDERED: SUCCINYLCHOLINE CHLORIDE 200 MG/10 ML VIAL ONE (12:17)
[2017-05-01] MEDS ORDERED: LIDOCAINE VISCOUS 2% ORAL/TOP 20 ML UNIT-DOSE CUP MM ONE (12:20)
[2017-05-01] MEDS: HEPARIN - 25,000 UNIT in SODIUM CHLORIDE 495 ML IV SCH (15:00)
--- NOTE | 2017-05-01 15:13 | PN ---
Progress Note (short form) - Note Progress Note: NICOLAS and synchronized cardioversion Risks including, but not limited to esophageal injury discussed with patient. Consent was obtained. Mild to moderate LV systolic dysfunction, mild MR, mild TR, mild AR and GA, presence of PFO via agitated saline injection and left to right flow on color Doppler, small atherosclerotic plaque in thoracic aorta, no pericardial effusion and no mass or thrombus in LA appendage Please see official NICOLAS report Successful synchronized cardioversion to sinus rhythm with 120J Obtain 12 lead ECG Continue cardiac management as per Dr. Micky Hawkins Thank you for the NICOLAS and cardioversion consultation Robbie Ng MD
--- NOTE | 2017-05-01 16:30 | EKG ---
Test Reason : Blood Pressure : / mmHG Vent. Rate : 058 BPM Atrial Rate : 058 BPM P-R Int : 284 ms QRS Dur : 102 ms QT Int : 420 ms P-R-T Axes : 066 -28 -19 degrees QTc Int : 412 ms SINUS BRADYCARDIA WITH 1ST DEGREE A-V BLOCK NONSPECIFIC T WAVE ABNORMALITY ABNORMAL ECG WHEN COMPARED WITH ECG OF 01-MAY-2017 09:38, SINUS RHYTHM HAS REPLACED ATRIAL FLUTTER VENT. RATE HAS DECREASED BY 37 BPM T WAVE INVERSION NOW EVIDENT IN ANTERIOR LEADS Confirmed by JACINDA DING MD ([id number]) on 05/01/2017 4:29:47 PM Referred By: Confirmed By:JACINDA DING MD
--- NOTE | 2017-05-01 17:25 | PN ---
Progress Note, Physician History of Present Illness: doing well no new issues had cardioversion done now in sinus - Current Medication List Current Medications: Active Medications Amiodarone HCl (Cordarone -) 200 mg PO BID [facility] Last Admin: 05/01/17 09:59 Dose: 200 mg Ascorbic Acid (Vitamin C -) 500 mg PO DAILY [facility] Last Admin: 05/01/17 09:58 Dose: 500 mg Aspirin (Asa -) 81 mg PO DAILY [facility] Last Admin: 05/01/17 09:59 Dose: 81 mg Cholecalciferol (Vitamin D3 -) 5,000 unit PO DAILY [facility] Last Admin: 05/01/17 09:58 Dose: 5,000 unit Guaifenesin (Robitussin -) 10 ml PO Q6H PRN Last Admin: 05/01/17 08:30 Dose: 10 ml Heparin Sodium (Porcine) (Heparin -) 5,000 unit IVPUSH PRN PRN Heparin Sodium (Porcine) (Heparin -) 1,000 unit IVPUSH PRN PRN Ertapenem 1 gm/ Sodium (Chloride) 50 mls @ 100 mls/hr IVPB DAILY [facility] PRN Reason: Protocol Last Admin: 05/01/17 09:57 Dose: 100 mls/hr Heparin Sodium (Porcine) 25, (000 unit/ Sodium Chloride) 500 mls @ 20 mls/hr IV TITR [facility]; 1,000 UNIT/HR PRN Reason: Protocol Last Titration: 05/01/17 00:37 Dose: 1,250 unit/hr, 25 mls/hr Isosorbide Mononitrate (Imdur -) 30 mg PO DAILY [facility] Last Admin: 05/01/17 09:58 Dose: 30 mg Losartan Potassium (Cozaar -) 50 mg PO DAILY [facility] Last Admin: 05/01/17 10:01 Dose: Not Given Metoprolol Succinate (Toprol Xl -) 50 mg PO BID [facility] Last Admin: 05/01/17 09:58 Dose: 50 mg Oxycodone HCl (Roxicodone -) 5 mg PO Q6H PRN PRN Reason: PAIN Last Admin: 05/01/17 08:30 Dose: 5 mg Ranitidine HCl (Zantac -) 150 mg PO DAILY [facility] Last Admin: 05/01/17 09:59 Dose: 150 mg Fluticasone/Salmeterol (Advair 100mcg/50mcg -) 1 puff IH BID [facility] Last Admin: 05/01/17 09:59 Dose: 1 puff Trimethoprim/Sulfamethoxazole (Bactrim Ds -) 1 each PO BID [facility] Last Admin: 04/27/17 09:53 Dose: 1 each Warfarin Sodium (Coumadin -) 7.5 mg PO ONCE ONE Stop: 05/01/17 18:01 - Objective Vital Signs: Vital Signs Temperature 98 F 05/01/17 12:52 Pulse Rate 68 05/01/17 14:30 Respiratory Rate 16 05/01/17 14:30 Blood Pressure 134/74 05/01/17 14:30 O2 Sat by Pulse Oximetry (%) 100 05/01/17 13:51 Constitutional: Yes: No Distress, Calm Cardiovascular: Yes: Regular Rate and Rhythm Respiratory: Yes: Regular, On Nasal O2, Poor Air Entry Gastrointestinal: Yes: Normal Bowel Sounds, Soft Musculoskeletal: Yes: WNL Extremities: Yes: WNL Neurological: Yes: Alert, Oriented Psychiatric: Yes: Alert, Oriented Labs: CBC, BMP 05/01/17 10:32 05/01/17 09:45 INR, PTT INR 1.77 (0.82-1.09) H D 05/01/17 08:00 Assessment/Plan pneumonia tachy afib sob fever plan will stop iv abx and see patient with dirrhoea rest as per primary as per cardio
[2017-05-01] MEDS ORDERED: WARFARIN NA 7.5 MG TABLET (FP) PO ONE (18:00)
--- NOTE | 2017-05-01 19:43 | PN ---
Progress Note (short form) - Note Progress Note: 86-year-old -Chinese female, continues to have atrial flutter with varying AV response and presently is back in 2-1 A-V conduction. Seen earlier in the day was scheduled for NICOLAS and cardioversion. Remains in atril flutter with varying AV response. Active Medications Generic Name Dose Route Start Last Admin Trade Name Freq PRN Reason Stop Dose Admin Amiodarone HCl 200 mg 04/27/17 22:00 05/01/17 09:59 Cordarone - PO 200 mg BID [facility] Administration Ascorbic Acid 500 mg 04/23/17 10:00 05/01/17 09:58 Vitamin C - PO 500 mg DAILY [facility] Administration Aspirin 81 mg 04/23/17 10:00 05/01/17 09:59 Asa - PO 81 mg DAILY [facility] Administration Cholecalciferol 5,000 unit 04/23/17 10:00 05/01/17 09:58 Vitamin D3 - PO 5,000 unit DAILY [facility] Administration Guaifenesin 10 ml 04/25/17 17:04 05/01/17 17:23 Robitussin - PO 10 ml Q6H PRN Administration Heparin Sodium (Porcine) 5,000 unit 04/29/17 12:40 Heparin - IVPUSH PRN PRN Heparin Sodium (Porcine) 1,000 unit 04/29/17 12:40 Heparin - IVPUSH PRN PRN Heparin Sodium (Porcine) 25, 500 mls @ 20 mls/hr 04/29/17 12:45 05/01/17 15: 00 000 unit/ Sodium Chloride IV 1,200 unit/hr TITR [facility]IK 24 mls/hr Protocol Administration 1,000 UNIT/HR Isosorbide Mononitrate 30 mg 04/23/17 10:00 05/01/17 09:58 Imdur - PO 30 mg DAILY [facility] Administration Losartan Potassium 50 mg 04/23/17 10:00 05/01/17 10:01 Cozaar - PO Not Given DAILY [facility] Metoprolol Succinate 50 mg 04/25/17 22:00 05/01/17 09:58 Toprol Xl - PO 50 mg BID [facility] Administration Oxycodone HCl 5 mg 04/30/17 12:44 05/01/17 18:50 Roxicodone - PO 5 mg Q6H PRN Administration PAIN Ranitidine HCl 150 mg 04/23/17 10:00 05/01/17 09:59 Zantac - PO 150 mg DAILY [facility] Administration Fluticasone/Salmeterol 1 puff 04/26/17 12:30 05/01/17 09:59 Advair 100mcg/50mcg - IH 1 puff BID [facility] Administration Trimethoprim/Sulfamethoxazole 1 each 04/25/17 11:00 04/27/17 09:53 Bactrim Ds - PO 1 each BID [facility] Administration 86-year-old female was in no acute distress, no pallor, cyanosis, clubbing or jaundice. Last Vital Signs Temp Pulse Resp BP Pulse Ox 98.0 F 63 18 98/53 100 05/01/17 17:00 05/01/17 17:00 05/01/17 17:00 05/01/17 17:00 05/01/17 13:51 NECK: Supple, no jugular venous distention carotids were 2+ and upstrokes were normal. HEART: PMI was in the fifth intercostal space. No heaves or thrills, heart sounds were distant, no murmur or gallops were heard. LUNGS: Clear on auscultation. ABDOMEN: soft, obese, nontender. No hepatosplenomegaly was present. No palpable masses were felt. EXTREMITIES: No calf tenderness or dependent edema. A: 1. Atrial flutter with 2:1 AV conduction. 2. COPD. 3. Hypertension 4. History of coronary artery disease. 5. Exogenous obesity. 6. CAD/angina pectoris, presently stable. P: 1. NICOLAS cardioversion. 2. Continue current therapy 3. check BMP.
[2017-05-02] MEDS: guaiFENesin 200 MG/10 ML 10 ML UNIT-DOSE CUPS PO PRN ×3 (06:01→20:03)
[2017-05-02] MEDS: oxyCODONE HCL 5 MG TABLET PO PRN ×3 (06:01→21:31)
[2017-05-02 07:32] LABS: INR 3.44 (0.82-1.09); PROTHROMBIN TIME (PATIENT) 38.9 SEC (9.98-11.88)
[2017-05-02 07:48] LABS: ACTIVATED PTT 136.8 SECONDS (26.9-34.4)
--- NOTE | 2017-05-02 09:17 | PN ---
Progress Note, Physician Chief Complaint: Feels better History of Present Illness: Had NICOLAS and cardiovertion Now in sinus rhythm Will need anticoagulation,start coumadin - Current Medication List Current Medications: Active Medications Amiodarone HCl (Cordarone -) 200 mg PO BID [facility] Last Admin: 05/01/17 21:13 Dose: 200 mg Ascorbic Acid (Vitamin C -) 500 mg PO DAILY [facility] Last Admin: 05/01/17 09:58 Dose: 500 mg Aspirin (Asa -) 81 mg PO DAILY [facility] Last Admin: 05/01/17 09:59 Dose: 81 mg Cholecalciferol (Vitamin D3 -) 5,000 unit PO DAILY [facility] Last Admin: 05/01/17 09:58 Dose: 5,000 unit Guaifenesin (Robitussin -) 10 ml PO Q6H PRN Last Admin: 05/02/17 06:01 Dose: 10 ml Heparin Sodium (Porcine) (Heparin -) 5,000 unit IVPUSH PRN PRN Heparin Sodium (Porcine) (Heparin -) 1,000 unit IVPUSH PRN PRN Heparin Sodium (Porcine) 25, (000 unit/ Sodium Chloride) 500 mls @ 20 mls/hr IV TITR [facility]; 1,000 UNIT/HR PRN Reason: Protocol Last Admin: 05/01/17 15:00 Dose: 1,200 unit/hr, 24 mls/hr Isosorbide Mononitrate (Imdur -) 30 mg PO DAILY [facility] Last Admin: 05/01/17 09:58 Dose: 30 mg Losartan Potassium (Cozaar -) 50 mg PO DAILY [facility] Last Admin: 05/01/17 10:01 Dose: Not Given Metoprolol Succinate (Toprol Xl -) 50 mg PO BID [facility] Last Admin: 05/01/17 21:13 Dose: 50 mg Oxycodone HCl (Roxicodone -) 5 mg PO Q6H PRN PRN Reason: PAIN Last Admin: 05/02/17 06:01 Dose: 5 mg Ranitidine HCl (Zantac -) 150 mg PO DAILY [facility] Last Admin: 05/01/17 09:59 Dose: 150 mg Fluticasone/Salmeterol (Advair 100mcg/50mcg -) 1 puff IH BID [facility] Last Admin: 05/01/17 21:11 Dose: 1 puff Trimethoprim/Sulfamethoxazole (Bactrim Ds -) 1 each PO BID [facility] Last Admin: 04/27/17 09:53 Dose: 1 each - Objective Vital Signs: Vital Signs Temperature 98.1 F 05/02/17 08:08 Pulse Rate 66 05/02/17 08:08 Respiratory Rate 20 05/02/17 08:08 Blood Pressure 98/42 05/02/17 08:08 O2 Sat by Pulse Oximetry (%) 97 05/01/17 21:00 Constitutional: Yes: Calm Eyes: Yes: WNL HENT: Yes: WNL Neck: Yes: WNL Cardiovascular: Yes: Regular Rate and Rhythm Respiratory: Yes: WNL Gastrointestinal: Yes: WNL ...Rectal Exam: Yes: Deferred Genitourinary: Yes: WNL Musculoskeletal: Yes: Muscle Weakness Edema: No Peripheral Pulses WNL: Yes Neurological: Yes: Alert Labs: CBC, BMP 05/01/17 10:32 05/01/17 09:45 INR, PTT INR 3.44 (0.82-1.09) H D 05/02/17 05:19 Assessment/Plan Start coumadin
[2017-05-02] MEDS ORDERED: WARFARIN NA 10 MG TABLET (FP) PO ONE (09:23)
[2017-05-02] MEDS: ASCORBIC ACID 500 MG TABLET (FP) PO SCH (09:37)
[2017-05-02] MEDS: RANITIDINE HCL 150 MG TABLET (FP) PO SCH (09:37)
[2017-05-02] MEDS: CHOLECALCIFEROL (VITAMIN D3) 1,000 UNIT TABLET (FP) PO SCH (09:37)
[2017-05-02] MEDS: AMIODARONE HCL 200 MG TABLET (FP) PO SCH ×2 (09:37→21:32)
[2017-05-02] MEDS: ASPIRIN 81 MG CHEWABLE TABLETS PO SCH (09:37)
[2017-05-02] MEDS: ISOSORBIDE MONONITRATE 30 MG TAB.SR.24H (FP) PO SCH (09:37)
[2017-05-02] MEDS: FLUTICASONE/SALMETEROL 100 MCG/50 MCG DISKUS IH SCH ×2 (09:38→21:32)
[2017-05-02] MEDS: METOPROLOL SUCCINATE 50 MG TAB.SR.24H (FP) PO SCH ×2 (09:45→21:32)
[2017-05-02] MEDS: LOSARTAN POTASSIUM 50 MG TABLET (FP) PO SCH (09:45)
--- NOTE | 2017-05-02 10:45 | PN ---
Progress Note (short form) - Note Progress Note: 86-year-old -[place] female, continues to have atrial flutter with varying AV response and presently is back in 2-1 A-V conduction. Patient underwent NICOLAS/Cardioversion and is in sinus rhythm. Complaining of mild sore throat following the procedure. Active Medications Generic Name Dose Route Start Last Admin Trade Name Freq PRN Reason Stop Dose Admin Amiodarone HCl 200 mg 04/27/17 22:00 05/02/17 09:37 Cordarone - PO 200 mg BID [facility] Administration Ascorbic Acid 500 mg 04/23/17 10:00 05/02/17 09:37 Vitamin C - PO 500 mg DAILY [facility] Administration Aspirin 81 mg 04/23/17 10:00 05/02/17 09:37 Asa - PO 81 mg DAILY [facility] Administration Cholecalciferol 5,000 unit 04/23/17 10:00 05/02/17 09:37 Vitamin D3 - PO 5,000 unit DAILY [facility] Administration Guaifenesin 10 ml 04/25/17 17:04 05/02/17 06:01 Robitussin - PO 10 ml Q6H PRN Administration Heparin Sodium (Porcine) 5,000 unit 04/29/17 12:40 Heparin - IVPUSH PRN PRN Heparin Sodium (Porcine) 1,000 unit 04/29/17 12:40 Heparin - IVPUSH PRN PRN Heparin Sodium (Porcine) 25, 500 mls @ 20 mls/hr 04/29/17 12:45 05/02/17 09: 29 000 unit/ Sodium Chloride IV 1,050 unit/hr TITR [facility] 21 mls/hr Protocol Titration 1,000 UNIT/HR Isosorbide Mononitrate 30 mg 04/23/17 10:00 05/02/17 09:37 Imdur - PO 30 mg DAILY [facility] Administration Losartan Potassium 50 mg 04/23/17 10:00 05/02/17 09:45 Cozaar - PO 50 mg DAILY [facility] Administration Metoprolol Succinate 50 mg 04/25/17 22:00 05/02/17 09:45 Toprol Xl - PO 50 mg BID [facility] Administration Oxycodone HCl 5 mg 04/30/17 12:44 05/02/17 06:01 Roxicodone - PO 5 mg Q6H PRN Administration PAIN Ranitidine HCl 150 mg 04/23/17 10:00 05/02/17 09:37 Zantac - PO 150 mg DAILY [facility] Administration Fluticasone/Salmeterol 1 puff 04/26/17 12:30 05/02/17 09:38 Advair 100mcg/50mcg - IH 1 puff BID [facility] Administration Trimethoprim/Sulfamethoxazole 1 each 04/25/17 11:00 04/27/17 09:53 Bactrim Ds - PO 1 each BID [facility] Administration 86-year-old female was in no acute distress, no pallor, cyanosis, clubbing or jaundice. Last Vital Signs Temp Pulse Resp BP Pulse Ox 98.1 F 66 20 98/42 96 05/02/17 08:08 05/02/17 08:08 05/02/17 08:08 05/02/17 08:08 05/02/17 08:00 NECK: Supple, no jugular venous distention carotids were 2+ and upstrokes were normal. HEART: PMI was in the fifth intercostal space. No heaves or thrills, heart sounds were distant, no murmur or gallops were heard. LUNGS: Clear on auscultation. ABDOMEN: soft, obese, nontender. No hepatosplenomegaly was present. No palpable masses were felt. EXTREMITIES: No calf tenderness or dependent edema. Laboratory Results - last 24 hr 05/01/17 05/01/17 05/02/17 08:00 09:45 05:19 PT with INR 38.90 H INR 3.44 H D PTT (Actin FS) 77.3 H 136.8 H D Sodium 141 Potassium 5.6 H Chloride 109 H Carbon Dioxide 25 Anion Gap 7 L BUN 22 H Creatinine 1.8 H Random Glucose 90 Calcium 9.0 A: 1. Paroxysmal Atrial flutter, currently in sinus rhythm. 2. COPD 3. Hypertension 4. History of coronary artery disease. 5. Exogenous obesity. 6. CAD/angina pectoris, presently stable. P: 1. Discontinue Heparin. 2. Hold Coumadin today. 3. INR in AM. 4. Patient will require close monitoring of INR while she is on Amiodarone. 5. Increase ambulation. 6. Repeat BMP as serum K was elevated.
[2017-05-02 11:08] LABS: ANION GAP 7 (8-16); CALCIUM 8.8 mg/dL (8.5-10.1); CO2 25 mmol/L (21-32); CREATININE 1.8 mg/dL (0.55-1.02); GLUCOSE,RANDOM 91 mg/dL (74-106)
[2017-05-02] MEDS: HEPARIN - 25,000 UNIT in SODIUM CHLORIDE 495 ML IV SCH (15:42)
--- NOTE | 2017-05-02 16:22 | PN ---
Progress Note, Physician History of Present Illness: doing well no new issues hs some pain in th throat and chest post procedure - Current Medication List Current Medications: Active Medications Amiodarone HCl (Cordarone -) 200 mg PO BID [facility] Last Admin: 05/02/17 09:37 Dose: 200 mg Ascorbic Acid (Vitamin C -) 500 mg PO DAILY [facility] Last Admin: 05/02/17 09:37 Dose: 500 mg Aspirin (Asa -) 81 mg PO DAILY [facility] Last Admin: 05/02/17 09:37 Dose: 81 mg Cholecalciferol (Vitamin D3 -) 5,000 unit PO DAILY [facility] Last Admin: 05/02/17 09:37 Dose: 5,000 unit Guaifenesin (Robitussin -) 10 ml PO Q6H PRN Last Admin: 05/02/17 11:32 Dose: 10 ml Isosorbide Mononitrate (Imdur -) 30 mg PO DAILY [facility] Last Admin: 05/02/17 09:37 Dose: 30 mg Losartan Potassium (Cozaar -) 50 mg PO DAILY [facility] Last Admin: 05/02/17 09:45 Dose: 50 mg Metoprolol Succinate (Toprol Xl -) 50 mg PO BID [facility] Last Admin: 05/02/17 09:45 Dose: 50 mg Oxycodone HCl (Roxicodone -) 5 mg PO Q6H PRN PRN Reason: PAIN Last Admin: 05/02/17 15:41 Dose: 5 mg Ranitidine HCl (Zantac -) 150 mg PO DAILY [facility] Last Admin: 05/02/17 09:37 Dose: 150 mg Fluticasone/Salmeterol (Advair 100mcg/50mcg -) 1 puff IH BID [facility] Last Admin: 05/02/17 09:38 Dose: 1 puff Trimethoprim/Sulfamethoxazole (Bactrim Ds -) 1 each PO BID [facility] Last Admin: 04/27/17 09:53 Dose: 1 each - Objective Vital Signs: Vital Signs Temperature 98.2 F 05/02/17 14:00 Pulse Rate 69 05/02/17 14:00 Respiratory Rate 18 05/02/17 14:00 Blood Pressure 114/58 05/02/17 14:00 O2 Sat by Pulse Oximetry (%) 96 05/02/17 08:00 Constitutional: Yes: No Distress, Calm Cardiovascular: Yes: S1, S2 Respiratory: Yes: Regular, On Nasal O2, Poor Air Entry Gastrointestinal: Yes: Normal Bowel Sounds, Soft Musculoskeletal: Yes: WNL Extremities: Yes: WNL Neurological: Yes: Alert, Oriented Labs: CBC, BMP 05/01/17 10:32 05/02/17 06:25 INR, PTT INR 3.44 (0.82-1.09) H D 05/02/17 05:19 Assessment/Plan pneumonia tachy afib sob fever plan continue to monitor off of abx rest as per primary as per cardio
[2017-05-03] MEDS: oxyCODONE HCL 5 MG TABLET PO PRN ×3 (03:06→21:29)
[2017-05-03] MEDS: CHOLECALCIFEROL (VITAMIN D3) 1,000 UNIT TABLET (FP) PO SCH (09:21)
[2017-05-03] MEDS: RANITIDINE HCL 150 MG TABLET (FP) PO SCH (09:21)
[2017-05-03] MEDS: AMIODARONE HCL 200 MG TABLET (FP) PO SCH ×2 (09:21→21:29)
[2017-05-03] MEDS: ASPIRIN 81 MG CHEWABLE TABLETS PO SCH (09:21)
[2017-05-03] MEDS: guaiFENesin 200 MG/10 ML 10 ML UNIT-DOSE CUPS PO PRN ×2 (09:21→21:30)
[2017-05-03] MEDS: ISOSORBIDE MONONITRATE 30 MG TAB.SR.24H (FP) PO SCH (09:21)
[2017-05-03] MEDS: METOPROLOL SUCCINATE 50 MG TAB.SR.24H (FP) PO SCH ×2 (09:21→21:29)
[2017-05-03] MEDS: ASCORBIC ACID 500 MG TABLET (FP) PO SCH (09:21)
[2017-05-03] MEDS: LOSARTAN POTASSIUM 50 MG TABLET (FP) PO SCH (09:22)
[2017-05-03] MEDS: FLUTICASONE/SALMETEROL 100 MCG/50 MCG DISKUS IH SCH ×2 (09:22→21:31)
--- NOTE | 2017-05-03 13:36 | PN ---
Progress Note, Physician Chief Complaint: Feels improved less SOB, no fever not in acute distress History of Present Illness: 86 year old female with a history of UTIs, Arrhythmia, CAD, hypertension, hyperlipidemia, COPD, diverticulitis, ischemic colitis admitted for SOB. The patient reports a 1 day history of SOB She states that she has been having intermittent subjective fevers, developed Afib/flutter with variable block s/p Cardioversion now on nSR on amiodarone and B Blockers. INR supratherapeutic, no active bleeding H/H stable. - Current Medication List Current Medications: Active Medications Amiodarone HCl (Cordarone -) 200 mg PO BID [facility] Last Admin: 05/03/17 09:21 Dose: 200 mg Ascorbic Acid (Vitamin C -) 500 mg PO DAILY [facility] Last Admin: 05/03/17 09:21 Dose: 500 mg Aspirin (Asa -) 81 mg PO DAILY [facility] Last Admin: 05/03/17 09:21 Dose: 81 mg Cholecalciferol (Vitamin D3 -) 5,000 unit PO DAILY [facility] Last Admin: 05/03/17 09:21 Dose: 5,000 unit Guaifenesin (Robitussin -) 10 ml PO Q6H PRN Last Admin: 05/03/17 09:21 Dose: 10 ml Isosorbide Mononitrate (Imdur -) 30 mg PO DAILY [facility] Last Admin: 05/03/17 09:21 Dose: 30 mg Losartan Potassium (Cozaar -) 50 mg PO DAILY [facility] Last Admin: 05/03/17 09:22 Dose: 50 mg Metoprolol Succinate (Toprol Xl -) 50 mg PO BID [facility] Last Admin: 05/03/17 09:21 Dose: 50 mg Ranitidine HCl (Zantac -) 150 mg PO DAILY [facility] Last Admin: 05/03/17 09:21 Dose: 150 mg Fluticasone/Salmeterol (Advair 100mcg/50mcg -) 1 puff IH BID [facility] Last Admin: 05/03/17 09:22 Dose: 1 puff Trimethoprim/Sulfamethoxazole (Bactrim Ds -) 1 each PO BID [facility] Last Admin: 04/27/17 09:53 Dose: 1 each - Objective Vital Signs: Vital Signs Temperature 98 F 05/03/17 08:24 Pulse Rate 65 05/03/17 08:24 Respiratory Rate 20 05/03/17 08:24 Blood Pressure 97/56 05/03/17 08:24 O2 Sat by Pulse Oximetry (%) 96 05/03/17 08:00 Elderly F c/O weakness and SOB HEENT: Mm moist , mild anemia NECK: JVD +, trachea central no thyromegaly CHEST: Minimal basal Crepts. CVS: S1S2 R no m/g/r ABD: Obese non tender Bs + EXT: + edema feet, no calf tenderness [employer]: AOX3 non focal Labs: CBC, BMP 05/01/17 10:32 05/02/17 06:25 INR, PTT INR 3.44 (0.82-1.09) H D 05/02/17 05:19 Problem List - Problems (1) Atrial fibrillation with RVR Assessment/Plan: Cardioverted on AC INR supra-therapeutic hold Po Coumadin, no active bleeding H/ H therapeutic, on amiodarone and B Blockers. Code(s): I48.91 - UNSPECIFIED ATRIAL FIBRILLATION (2) CKD stage G3b/A3, GFR 30-44 and albumin creatinine ratio >300 mg/g Assessment/Plan: renal functions are stable F/U BMP Code(s): N18.3 - CHRONIC KIDNEY DISEASE, STAGE 3 (MODERATE) (3) Hyperkalemia Assessment/Plan: K %.6 no EKG chnages will Dc Bactrim F/U BMP in am . Code(s): E87.5 - HYPERKALEMIA (4) COPD mixed type Assessment/Plan: Patient has H/O COPD p exam consistent with chest congestion and B/L wheezing will add Duneb q 6 hrly and Advair Code(s): J44.9 - CHRONIC OBSTRUCTIVE PULMONARY DISEASE, UNSPECIFIED (5) UTI (urinary tract infection), bacterial Assessment/Plan: Urine grew Proteus Vulagris resistent completed abx. Code(s): N39.0 - URINARY TRACT INFECTION, SITE NOT SPECIFIED; A49.9 - BACTERIAL INFECTION, UNSPECIFIED (6) CHF (NYHA class II, ACC/AHA stage C) Assessment/Plan: ECHO shows global hypokinesia with moderately reduced EF and diastolic dysfunction , elevated BNP level on B Blockers and Losaran will optimize B Blockers i Code(s): I50.9 - HEART FAILURE, UNSPECIFIED
[2017-05-03 15:54] LABS: BASOPHIL 1.1 % (0-2.0); EOSINOPHIL 6.4 % (0-4.5); MCH 28.8 pg (25.7-33.7); MCHC 31.8 g/dl (32.0-36.0); MEAN CELL VOLUME 90.7 fl (80-96); MEAN PLT VOLUME 9.4 fl (7.5-11.1); NEUTROPHILS 68.7 % (42.8-82.8); PLATELET COUNT 289 K/MM3 (134-434); RDW 14.7 % (11.6-15.6); WHITE BLOOD COUNT 9.4 K/mm3 (4.0-10.0)
--- NOTE | 2017-05-03 15:58 | EKG ---
Test Reason : Blood Pressure : / mmHG Vent. Rate : 095 BPM Atrial Rate : 227 BPM P-R Int : 000 ms QRS Dur : 096 ms QT Int : 344 ms P-R-T Axes : 136 -39 -05 degrees QTc Int : 432 ms ATRIAL FLUTTER WITH VARIABLE A-V BLOCK LEFT AXIS DEVIATION POSSIBLE ANTERIOR INFARCT , AGE UNDETERMINED ABNORMAL ECG WHEN COMPARED WITH ECG OF 27-APR-2017 14:58, NONSPECIFIC T WAVE ABNORMALITY NO LONGER EVIDENT IN ANTERIOR LEADS QT HAS LENGTHENED REPEAT EKG IF CLINICALLY INDICATED Confirmed by ANAMARIA BOLAÑOS MD ([id number] on 05/03/2017 3:57:42 PM Referred By: Confirmed By:ANAMARIA BOLAÑOS MD
[2017-05-03 16:06] LABS: PROTHROMBIN TIME (PATIENT) 51.3 SEC (9.98-11.88)
[2017-05-03 16:08] LABS: ANION GAP 6 (8-16); CALCIUM 9.3 mg/dL (8.5-10.1); CO2 26 mmol/L (21-32); CREATININE 1.6 mg/dL (0.55-1.02); GLUCOSE,RANDOM 137 mg/dL (74-106); MAGNESIUM 1.9 mg/dL (1.8-2.4)
[2017-05-03 16:22] LABS: INR 4.54 (0.82-1.09)
--- NOTE | 2017-05-03 17:04 | PN ---
Progress Note, Physician History of Present Illness: stable throat pain - Current Medication List Current Medications: Active Medications Amiodarone HCl (Cordarone -) 200 mg PO BID [facility] Last Admin: 05/03/17 09:21 Dose: 200 mg Ascorbic Acid (Vitamin C -) 500 mg PO DAILY [facility] Last Admin: 05/03/17 09:21 Dose: 500 mg Aspirin (Asa -) 81 mg PO DAILY [facility] Last Admin: 05/03/17 09:21 Dose: 81 mg Cholecalciferol (Vitamin D3 -) 5,000 unit PO DAILY [facility] Last Admin: 05/03/17 09:21 Dose: 5,000 unit Guaifenesin (Robitussin -) 10 ml PO Q6H PRN Last Admin: 05/03/17 09:21 Dose: 10 ml Isosorbide Mononitrate (Imdur -) 30 mg PO DAILY [facility] Last Admin: 05/03/17 09:21 Dose: 30 mg Losartan Potassium (Cozaar -) 50 mg PO DAILY [facility] Last Admin: 05/03/17 09:22 Dose: 50 mg Metoprolol Succinate (Toprol Xl -) 50 mg PO BID [facility] Last Admin: 05/03/17 09:21 Dose: 50 mg Oxycodone HCl (Roxicodone -) 5 mg PO Q6H PRN PRN Reason: PAIN Last Admin: 05/03/17 14:34 Dose: 5 mg Ranitidine HCl (Zantac -) 150 mg PO DAILY [facility] Last Admin: 05/03/17 09:21 Dose: 150 mg Fluticasone/Salmeterol (Advair 100mcg/50mcg -) 1 puff IH BID [facility] Last Admin: 05/03/17 09:22 Dose: 1 puff - Objective Vital Signs: Vital Signs Temperature 98 F 05/03/17 14:31 Pulse Rate 72 05/03/17 14:31 Respiratory Rate 18 05/03/17 14:31 Blood Pressure 116/79 05/03/17 14:31 O2 Sat by Pulse Oximetry (%) 96 05/03/17 08:00 Constitutional: Yes: No Distress, Calm Cardiovascular: Yes: Regular Rate and Rhythm Respiratory: Yes: Regular, CTA Bilaterally Gastrointestinal: Yes: Normal Bowel Sounds, Soft Musculoskeletal: Yes: WNL Extremities: Yes: WNL Neurological: Yes: Alert, Oriented Psychiatric: Yes: Alert, Oriented Labs: CBC, BMP 11/11/17 14:45 05/03/17 14:45 INR, PTT INR 4.54 (0.82-1.09) H* D 05/03/17 14:45 Assessment/Plan pneumonia tachy afib sob fever plan stable off of abx continue current mgmt
[2017-05-03] MEDS ORDERED: PT OWN MED DRAWER 7, Y5N ONE (21:03)
[2017-05-04 08:07] LABS: BASOPHIL 1.1 % (0-2.0); EOSINOPHIL 7.7 % (0-4.5); MCH 29.3 pg (25.7-33.7); MCHC 32.3 g/dl (32.0-36.0); MEAN CELL VOLUME 90.5 fl (80-96); MEAN PLT VOLUME 9.3 fl (7.5-11.1); NEUTROPHILS 61.5 % (42.8-82.8); PLATELET COUNT 259 K/MM3 (134-434); RDW 14.2 % (11.6-15.6); WHITE BLOOD COUNT 9.5 K/mm3 (4.0-10.0)
[2017-05-04 08:31] LABS: INR 3.2 (0.82-1.09); PROTHROMBIN TIME (PATIENT) 36.2 SEC (9.98-11.88)
[2017-05-04] MEDS: AMIODARONE HCL 200 MG TABLET (FP) PO SCH ×2 (10:05→21:12)
[2017-05-04] MEDS: oxyCODONE HCL 5 MG TABLET PO PRN ×2 (10:05→20:39)
[2017-05-04] MEDS: LOSARTAN POTASSIUM 50 MG TABLET (FP) PO SCH (10:05)
[2017-05-04] MEDS: RANITIDINE HCL 150 MG TABLET (FP) PO SCH (10:05)
[2017-05-04] MEDS: CHOLECALCIFEROL (VITAMIN D3) 1,000 UNIT TABLET (FP) PO SCH (10:05)
[2017-05-04] MEDS: ASCORBIC ACID 500 MG TABLET (FP) PO SCH (10:05)
[2017-05-04] MEDS: ASPIRIN 81 MG CHEWABLE TABLETS PO SCH (10:05)
[2017-05-04] MEDS: ISOSORBIDE MONONITRATE 30 MG TAB.SR.24H (FP) PO SCH (10:05)
[2017-05-04] MEDS: METOPROLOL SUCCINATE 50 MG TAB.SR.24H (FP) PO SCH ×2 (10:05→21:12)
[2017-05-04] MEDS: guaiFENesin 200 MG/10 ML 10 ML UNIT-DOSE CUPS PO PRN ×2 (10:06→20:42)
[2017-05-04] MEDS: FLUTICASONE/SALMETEROL 100 MCG/50 MCG DISKUS IH SCH ×2 (10:06→21:11)
--- NOTE | 2017-05-04 12:20 | PN ---
Progress Note, Physician Chief Complaint: Feels improved less SOB, no fever not in acute distress c/o throat pain History of Present Illness: 86 year old female with a history of UTIs, Arrhythmia, CAD, hypertension, hyperlipidemia, COPD, diverticulitis, ischemic colitis admitted for SOB. The patient reports a 1 day history of SOB She states that she has been having intermittent subjective fevers, and chills, CXR B/L infiltrates US Grew Proteus completed abx, afib flutter on AC cardioverted now in NSR. - Current Medication List Current Medications: Active Medications Amiodarone HCl (Cordarone -) 200 mg PO BID [facility] Last Admin: 05/04/17 10:05 Dose: 200 mg Ascorbic Acid (Vitamin C -) 500 mg PO DAILY [facility] Last Admin: 05/04/17 10:05 Dose: 500 mg Aspirin (Asa -) 81 mg PO DAILY [facility] Last Admin: 05/04/17 10:05 Dose: 81 mg Cholecalciferol (Vitamin D3 -) 5,000 unit PO DAILY [facility] Last Admin: 05/04/17 10:05 Dose: 5,000 unit Guaifenesin (Robitussin -) 10 ml PO Q6H PRN Last Admin: 05/04/17 10:06 Dose: 10 ml Isosorbide Mononitrate (Imdur -) 30 mg PO DAILY [facility] Last Admin: 05/04/17 10:05 Dose: 30 mg Losartan Potassium (Cozaar -) 50 mg PO DAILY [facility] Last Admin: 05/04/17 10:05 Dose: 50 mg Metoprolol Succinate (Toprol Xl -) 50 mg PO BID [facility] Last Admin: 05/04/17 10:05 Dose: 50 mg Oxycodone HCl (Roxicodone -) 5 mg PO Q6H PRN PRN Reason: PAIN Last Admin: 05/04/17 10:05 Dose: 5 mg Ranitidine HCl (Zantac -) 150 mg PO DAILY [facility] Last Admin: 05/04/17 10:05 Dose: 150 mg Fluticasone/Salmeterol (Advair 100mcg/50mcg -) 1 puff IH BID [facility] Last Admin: 05/04/17 10:06 Dose: 1 puff Warfarin Sodium (Coumadin -) 2.5 mg PO ONCE@1800 ONE Stop: 05/04/17 18:01 - Objective Vital Signs: Vital Signs Temperature 98.4 F 05/04/17 07:53 Pulse Rate 62 05/04/17 07:53 Respiratory Rate 20 05/04/17 08:00 Blood Pressure 138/58 05/04/17 07:53 O2 Sat by Pulse Oximetry (%) 94 L 05/04/17 08:00 Elderly F c/O weakness and SOB HEENT: no thrush, mild congestion, Mm moist , mild anemia NECK: No JVD, trachea central no thyromegaly CHEST: Minimal wheezes ABD: Obese non tender Bs + EXT: + edema feet, no calf tenderness [employer]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 Labs: CBC, BMP 05/04/17 06:15 INR, PTT INR 3.20 (0.82-1.09) H 05/04/17 06:15 Laboratory Results - last 24 hr 05/04/17 05/04/17 05/04/17 06:15 06:15 06:15 WBC 9.5 RBC 3.41 L Hgb 10.0 L Hct 30.8 L MCV 90.5 MCH 29.3 MCHC 32.3 RDW 14.2 Plt Count 259 MPV 9.3 Neutrophils % 61.5 Lymphocytes % 22.0 D Monocytes % 7.7 Eosinophils % 7.7 H Basophils % 1.1 PT with INR 36.20 H INR 3.20 H Sodium Cancelled Potassium Cancelled Chloride Cancelled Carbon Dioxide Cancelled Anion Gap Cancelled BUN Cancelled Creatinine Cancelled Random Glucose Cancelled Calcium Cancelled 05/04/17 10:55 WBC RBC Hgb Hct MCV MCH MCHC RDW Plt Count MPV Neutrophils % Lymphocytes % Monocytes % Eosinophils % Basophils % PT with INR INR Sodium 141 Potassium 5.4 H Chloride 108 H Carbon Dioxide 28 Anion Gap 5 L BUN 23 H Creatinine 1.5 H Random Glucose 91 D Calcium 9.1 Problem List - Problems (1) Atrial fibrillation with RVR Assessment/Plan: Cardioverted on AC INR 3.2, no active bleeding H/H stable INR 3.2 start coumdin 2.5 mg daily F/U INR in am, , on amiodarone and B Blockers. Code(s): I48.91 - UNSPECIFIED ATRIAL FIBRILLATION (2) UTI (urinary tract infection), bacterial Assessment/Plan: Urine grew Proteus Vulagris resistent completed abx. Code(s): N39.0 - URINARY TRACT INFECTION, SITE NOT SPECIFIED; A49.9 - BACTERIAL INFECTION, UNSPECIFIED (3) CHF (NYHA class II, ACC/AHA stage C) Assessment/Plan: ECHO shows global hypokinesia with moderately reduced EF and diastolic dysfunction , elevated BNP level on B Blockers and Losaran will optimize B Blockers i Code(s): I50.9 - HEART FAILURE, UNSPECIFIED (4) COPD mixed type Assessment/Plan: Patient has H/O COPD p exam consistent with chest congestion and B/L wheezing will add Duneb q 6 hrly and Advair Code(s): J44.9 - CHRONIC OBSTRUCTIVE PULMONARY DISEASE, UNSPECIFIED (5) Hyperkalemia Assessment/Plan: K %.6 no EKG chnages will Dc Bactrim F/U BMP in am . Code(s): E87.5 - HYPERKALEMIA
--- NOTE | 2017-05-04 12:53 | PN ---
Progress Note (short form) - Note Progress Note: 86 year old AA female with H/O atrial flutter 2:1 conducoin, resistent to therapy, underwent NICOLAS/Cardioversion and remains in sinus rhythm. Known case of COPD, hypetension, CAd, angina pectoris, H/o UTI, and GERD. No chest pain or discomfort, no SOB, PND or orthpnea reported. Tolerating therapy, off heparin. Active Medications Amiodarone HCl (Cordarone -) 200 mg PO BID [facility] Last Admin: 05/04/17 10:05 Dose: 200 mg Ascorbic Acid (Vitamin C -) 500 mg PO DAILY [facility] Last Admin: 05/04/17 10:05 Dose: 500 mg Aspirin (Asa -) 81 mg PO DAILY [facility] Last Admin: 05/04/17 10:05 Dose: 81 mg Cholecalciferol (Vitamin D3 -) 5,000 unit PO DAILY [facility] Last Admin: 05/04/17 10:05 Dose: 5,000 unit Guaifenesin (Robitussin -) 10 ml PO Q6H PRN Last Admin: 05/04/17 10:06 Dose: 10 ml Isosorbide Mononitrate (Imdur -) 30 mg PO DAILY [facility] Last Admin: 05/04/17 10:05 Dose: 30 mg Losartan Potassium (Cozaar -) 50 mg PO DAILY [facility] Last Admin: 05/04/17 10:05 Dose: 50 mg Metoprolol Succinate (Toprol Xl -) 50 mg PO BID [facility] Last Admin: 05/04/17 10:05 Dose: 50 mg Oxycodone HCl (Roxicodone -) 5 mg PO Q6H PRN PRN Reason: PAIN Last Admin: 05/04/17 10:05 Dose: 5 mg Ranitidine HCl (Zantac -) 150 mg PO DAILY [facility] Last Admin: 05/04/17 10:05 Dose: 150 mg Fluticasone/Salmeterol (Advair 100mcg/50mcg -) 1 puff IH BID [facility] Last Admin: 05/04/17 10:06 Dose: 1 puff Warfarin Sodium (Coumadin -) 2.5 mg PO ONCE@1800 ONE Stop: 05/04/17 18:01 86-year-old female was in no acute distress, no pallor, cyanosis, clubbing or jaundice. Last Vital Signs Last Vital Signs Temp Pulse Resp BP Pulse Ox 98.4 F 62 20 138/58 94 L 05/04/17 07:53 05/04/17 07:53 05/04/17 08:00 05/04/17 07:53 05/04/17 08:00 NECK: Supple, no jugular venous distention carotids were 2+ and upstrokes were normal. HEART: PMI was in the fifth intercostal space. No heaves or thrills, heart sounds were distant, no murmur or gallops were heard. LUNGS: Clear on auscultation. ABDOMEN: soft, obese, nontender. No hepatosplenomegaly was present. No palpable masses were felt. EXTREMITIES: No calf tenderness or dependent edema. CBC, BMP 05/04/17 06:15 05/04/17 10:55 A: 1. COPD 2. Paroxysmal atrial flutter, currently in sinus rhythm. 3. Hypertension 4. History of coronary artery disease. 5. Exogenous obesity. 6. CAD/angina pectoris, presently stable. 7. GERD. 8. UTI. P: 1. INR being monitored by PCP. 2. Patient will require close monitoring. 3. Increase ambulation. 4. Will need close F/U on TFTs, periodic X-RAY chest, LFTs, and amiodarone levels. 5. Amiodarone dose can be reduced to 200mg. in 2 weeks. 6. Discharge when medically stable.
[2017-05-04 13:04] LABS: ANION GAP 5 (8-16); CALCIUM 9.1 mg/dL (8.5-10.1); CO2 28 mmol/L (21-32); CREATININE 1.5 mg/dL (0.55-1.02); GLUCOSE,RANDOM 91 mg/dL (74-106)
--- NOTE | 2017-05-04 14:11 | PN ---
Progress Note, Physician History of Present Illness: doing well no issues throat hurting a bit overall stable - Current Medication List Current Medications: Active Medications Amiodarone HCl (Cordarone -) 200 mg PO BID [facility] Last Admin: 05/04/17 10:05 Dose: 200 mg Ascorbic Acid (Vitamin C -) 500 mg PO DAILY [facility] Last Admin: 05/04/17 10:05 Dose: 500 mg Aspirin (Asa -) 81 mg PO DAILY [facility] Last Admin: 05/04/17 10:05 Dose: 81 mg Cholecalciferol (Vitamin D3 -) 5,000 unit PO DAILY [facility] Last Admin: 05/04/17 10:05 Dose: 5,000 unit Guaifenesin (Robitussin -) 10 ml PO Q6H PRN Last Admin: 05/04/17 10:06 Dose: 10 ml Isosorbide Mononitrate (Imdur -) 30 mg PO DAILY [facility] Last Admin: 05/04/17 10:05 Dose: 30 mg Losartan Potassium (Cozaar -) 50 mg PO DAILY [facility] Last Admin: 05/04/17 10:05 Dose: 50 mg Metoprolol Succinate (Toprol Xl -) 50 mg PO BID [facility] Last Admin: 05/04/17 10:05 Dose: 50 mg Oxycodone HCl (Roxicodone -) 5 mg PO Q6H PRN PRN Reason: PAIN Last Admin: 05/04/17 10:05 Dose: 5 mg Ranitidine HCl (Zantac -) 150 mg PO DAILY [facility] Last Admin: 05/04/17 10:05 Dose: 150 mg Fluticasone/Salmeterol (Advair 100mcg/50mcg -) 1 puff IH BID [facility] Last Admin: 05/04/17 10:06 Dose: 1 puff Warfarin Sodium (Coumadin -) 2.5 mg PO ONCE@1800 ONE Stop: 05/04/17 18:01 - Objective Vital Signs: Vital Signs Temperature 98.4 F 05/04/17 07:53 Pulse Rate 62 05/04/17 07:53 Respiratory Rate 20 05/04/17 08:00 Blood Pressure 138/58 05/04/17 07:53 O2 Sat by Pulse Oximetry (%) 94 L 05/04/17 08:00 Constitutional: Yes: No Distress, Calm Cardiovascular: Yes: Regular Rate and Rhythm Respiratory: Yes: Regular, CTA Bilaterally Gastrointestinal: Yes: Normal Bowel Sounds, Soft Musculoskeletal: Yes: WNL Extremities: Yes: WNL Neurological: Yes: Alert, Oriented Psychiatric: Yes: Alert, Oriented Labs: CBC, BMP 05/04/17 06:15 05/04/17 10:55 INR, PTT INR 3.20 (0.82-1.09) H 05/04/17 06:15 Assessment/Plan pneumonia tachy afib sob fever plan continue to monitor off of abx rest as per primary as per cardio
[2017-05-04] MEDS ORDERED: WARFARIN NA 2.5 MG TABLET (FP) PO ONE (18:00)
[2017-05-05] MEDS: oxyCODONE HCL 5 MG TABLET PO PRN ×2 (02:16→11:33)
[2017-05-05] MEDS: guaiFENesin 200 MG/10 ML 10 ML UNIT-DOSE CUPS PO PRN ×2 (02:28→11:33)
[2017-05-05 06:59] VITALS: PULSE 60
[2017-05-05 07:58] LABS: INR 2.88 (0.82-1.09); PROTHROMBIN TIME (PATIENT) 32.6 SEC (9.98-11.88)
[2017-05-05 08:11] LABS: CALCIUM 9.5 mg/dL (8.5-10.1)
[2017-05-05 08:15] LABS: ANION GAP 8 (8-16); CO2 25 mmol/L (21-32); CREATININE 1.6 mg/dL (0.55-1.02); GLUCOSE,RANDOM 87 mg/dL (74-106)
--- NOTE | 2017-05-05 09:26 | DS ---
Physical Examination Vital Signs: Vital Signs Temperature 99.3 F 05/05/17 06:58 Pulse Rate 60 05/05/17 06:58 Respiratory Rate 20 05/05/17 06:58 Blood Pressure 115/64 05/05/17 06:58 O2 Sat by Pulse Oximetry (%) 99 05/04/17 21:00 Findings/Remarks: Admitted with new on set Afib,CHF ,pneumonia and diabetes Constitutional: Yes: No Distress Eyes: Yes: WNL HENT: Yes: WNL Neck: Yes: WNL Cardiovascular: Yes: Regular Rate and Rhythm Respiratory: Yes: Regular Gastrointestinal: Yes: Normal Bowel Sounds ...Rectal Exam: Yes: Deferred Renal/: Yes: WNL Breast(s): Yes: WNL Musculoskeletal: Yes: Muscle Weakness Edema: No Peripheral Pulses WNL: Yes Integumentary: Yes: WNL Psychiatric: Yes: Alert Labs: CBC, BMP 05/04/17 06:15 05/05/17 05:27 Discharge Summary Reason For Visit: ATRIAL FIBRILLATION W/RAPID VENTRICUL RESP Current Active Problems Atrial fibrillation with RVR (Acute) CHF (NYHA class II, ACC/AHA stage C) (Acute) CKD stage 4 secondary to hypertension (Acute) CKD stage G3b/A3, GFR 30-44 and albumin creatinine ratio >300 mg/g (Acute) COPD mixed type (Acute) Diastolic CHF (Acute) Hyperkalemia (Acute) UTI (urinary tract infection), bacterial (Acute) Condition: Stable - Instructions Referrals: Ira Cho MD [Primary Care Provider] - - Home Medications Comprehensive Discharge Medication List: Ambulatory Orders Ascorbic Acid [Vitamin C with Barbara Hips] 500 mg PO DAILY 01/18/17 Aspirin [ASA -] 81 mg PO DAILY 01/18/17 Cholecalciferol (Vitamin D3) [Vitamin D3] 5,000 unit PO DAILY 01/18/17 Diltiazem HCl [Cartia Xt] 240 mg PO DAILY 01/18/17 Isosorbide Mononitrate [Isosorbide Mononitrate ER] 30 mg PO DAILY 01/18/17 Losartan Potassium 50 mg PO DAILY 01/18/17 Ranitidine [Zantac -] 150 mg PO DAILY 01/18/17 Albuterol 0.083% Nebulizer Madhavi [Ventolin 0.083% Nebulizer Soln -] 1 neb NEB Q6H 04/21/17 Albuterol Sulfate [Proair Respiclick] 90 mcg IH DAILY 04/21/17 Promethazine HCl [Phenergan Liquid -] 10 ml PO TID 04/21/17 Nitrofurantoin Macrocrystal [Nitrofurantoin] 100 mg PO BID 04/22/17 Oxycodone HCl [Roxicodone -] 5 mg PO Q6H PRN 04/22/17
[2017-05-05] MEDS: AMIODARONE HCL 200 MG TABLET (FP) PO SCH (11:23)
[2017-05-05] MEDS: ASPIRIN 81 MG CHEWABLE TABLETS PO SCH (11:23)
[2017-05-05] MEDS: FLUTICASONE/SALMETEROL 100 MCG/50 MCG DISKUS IH SCH (11:23)
[2017-05-05] MEDS: ISOSORBIDE MONONITRATE 30 MG TAB.SR.24H (FP) PO SCH (11:24)
[2017-05-05] MEDS: ASCORBIC ACID 500 MG TABLET (FP) PO SCH (11:24)
[2017-05-05] MEDS: METOPROLOL SUCCINATE 50 MG TAB.SR.24H (FP) PO SCH (11:24)
[2017-05-05] MEDS: LOSARTAN POTASSIUM 50 MG TABLET (FP) PO SCH (11:24)
[2017-05-05] MEDS: CHOLECALCIFEROL (VITAMIN D3) 1,000 UNIT TABLET (FP) PO SCH (11:25)
[2017-05-05] MEDS: RANITIDINE HCL 150 MG TABLET (FP) PO SCH (11:25)
[2017-05-05 11:37] VITALS: BP 108/60; TEMP 98.7
== END 2017-05-05 12:24 | DRG 308 ==
LOC: JER 15:27 → JERBED 17:39 → J4W 04-22 14:46
PROVIDERS: ADMIT Internal Medicine; ATTEND Internal Medicine
PROC: B246ZZ4 Ultrasonography of Right and Left Heart, Transesophageal (ICD-10-PCS; 2017-05-01)
PROC: 5A2204Z Restoration of Cardiac Rhythm, Single (ICD-10-PCS; principal; 2017-05-01 12:00)
DX: I48.91 Unspecified atrial fibrillation (principal); J18.9 Pneumonia, unspecified organism; I50.33 Acute on chronic diastolic (congestive) heart failure; I13.0 Hypertensive heart and chronic kidney disease with heart failure and stage 1 through stage 4 chronic kidney disease, or unspecified chronic kidney disease; N18.4 Chronic kidney disease, stage 4 (severe); J44.0 Chronic obstructive pulmonary disease with (acute) lower respiratory infection; N39.0 Urinary tract infection, site not specified; I25.10 Atherosclerotic heart disease of native coronary artery without angina pectoris; I47.1 Supraventricular tachycardia; I48.92 Unspecified atrial flutter; E78.5 Hyperlipidemia, unspecified; G62.9 Polyneuropathy, unspecified; Z87.440 Personal history of urinary (tract) infections; E66.01 Morbid (severe) obesity due to excess calories; M15.9 Polyosteoarthritis, unspecified; J20.9 Acute bronchitis, unspecified; I44.0 Atrioventricular block, first degree; E86.9 Volume depletion, unspecified; E87.5 Hyperkalemia; E11.22 Type 2 diabetes mellitus with diabetic chronic kidney disease; B96.89 Other specified bacterial agents as the cause of diseases classified elsewhere; I34.0 Nonrheumatic mitral (valve) insufficiency; I36.1 Nonrheumatic tricuspid (valve) insufficiency; I35.1 Nonrheumatic aortic (valve) insufficiency; Z68.38 Body mass index [BMI] 38.0-38.9, adult
CPT/HCPCS: 36415; 71010-TC; 80048; 80053; 81003; 82550; 83735; 83880; 84132; 84443; 84484; 85025; 85027; 85610; 85730; 87040; 87086; 87186; 87324; 87449; 93005; 93010; 93306-TC; 93312; 93325; 94640; 97116-GP; 97161-GP; 99285-25; J1644

== ENCOUNTER 2017-05-08 20:46 | Inpatient (IN) | payer OTHER, MEDICARE ==
--- NOTE | 2017-05-08 21:10 | PDOC ---
History of Present Illness - General Chief Complaint: Respiratory Distress Stated Complaint: HYPERTENSION Time Seen by Provider: 05/08/17 21:02 Past History - Past Medical History Allergies/Adverse Reactions: Allergies Allergy/AdvReac Type Severity Reaction Status Date / Time Penicillins Allergy Verified 05/08/17 20:51 procaine Allergy Verified 05/08/17 20:52 Home Medications: Ambulatory Orders Ascorbic Acid [Vitamin C with Barbara Hips] 500 mg PO DAILY 01/18/17 Aspirin [ASA -] 81 mg PO DAILY 01/18/17 Cholecalciferol (Vitamin D3) [Vitamin D3] 5,000 unit PO DAILY 01/18/17 Diltiazem HCl [Cartia Xt] 240 mg PO DAILY 01/18/17 Isosorbide Mononitrate [Isosorbide Mononitrate ER] 30 mg PO DAILY 01/18/17 Losartan Potassium 50 mg PO DAILY 01/18/17 Ranitidine [Zantac -] 150 mg PO DAILY 01/18/17 Albuterol 0.083% Nebulizer Madhavi [Ventolin 0.083% Nebulizer Soln -] 1 neb NEB Q6H 04/21/17 Albuterol Sulfate [Proair Respiclick] 90 mcg IH DAILY 04/21/17 Promethazine HCl [Phenergan Plain 6.25 MG/5 ML -] 10 ml PO TID 04/21/17 Nitrofurantoin Macrocrystal [Nitrofurantoin] 100 mg PO BID 04/22/17 Oxycodone HCl [Roxicodone -] 5 mg PO Q6H PRN 04/22/17 Amiodarone HCl [Cordarone -] 200 mg PO BID tablet 05/05/17 Ascorbic Acid [Vitamin C -] 500 mg PO DAILY tablet 05/05/17 Aspirin [ASA -] 81 mg PO DAILY tab.chew 05/05/17 Cholecalciferol (Vitamin D3) [Vitamin D3 -] 5,000 unit PO DAILY tab 05/05/17 Guaifenesin [Robitussin -] 10 ml PO Q6H PRN cup 05/05/17 Isosorbide Mononitrate [Imdur -] 30 mg PO DAILY tab.sr.24h 05/05/17 Losartan Potassium [Cozaar -] 50 mg PO DAILY tablet 05/05/17 Metoprolol Succinate [Toprol XL -] 50 mg PO BID tab.sr.24h 05/05/17 Oxycodone HCl [Roxicodone -] 5 mg PO Q6H PRN tablet MDD 20 05/05/17 Ranitidine [Zantac -] 150 mg PO DAILY tablet 05/05/17 Salmeterol/Fluticasone [Advair 100Mcg/50Mcg -] 1 puff IH BID inhaler 05/05/17 Asthma: Yes Cardiac Disorders: Yes (ASHD, cardiac arrythmia) COPD: Yes CHF: Yes HTN: Yes Hypercholesterolemia: Yes - Surgical History Abdominal Surgery: Yes (hiatal hernia repair) Orthopedic Surgery: Yes (erendira hip) - Immunization History Immunization Up to Date: Yes - Suicide/Smoking/Psychosocial Hx Smoking Status: No Smoking History: Never smoked Have you smoked in the past 12 months: No Number of Cigarettes Smoked Daily: 0 If you are a former smoker, when did you quit?: many years Information on smoking cessation initiated: No Hx Alcohol Use: No Drug/Substance Use Hx: No Substance Use Type: None Hx Substance Use Treatment: No *Physical Exam - Vital Signs Last Vital Signs Temp Pulse Resp BP Pulse Ox 109 H 16 109/71 88 L 05/08/17 20:52 05/08/17 20:52 05/08/17 20:52 05/08/17 20:52
[2017-05-08] MEDS ORDERED: ACETAMINOPHEN 1000 MG/100 ML VIAL (NON FORMULARY) IVPB ONE (21:14)
[2017-05-08] MEDS ORDERED: PIPERACILLIN/TAZOB 4.5 GM/100 ML PREMIX BAG IVPB ONE (21:14)
[2017-05-08] MEDS ORDERED: VANCOMYCIN 1,500 MG in DEXTROSE 5%-WATER - 500 ML IVPB ONE (21:14)
[2017-05-08 21:15] LABS: VENOUS BLOOD GAS HCO3 21.6 meq/L (19-25); VENOUS PH 7.34 (7.32-7.42)
[2017-05-08] MEDS ORDERED: MEROPENEM 1,000 MG in DEXTROSE 5%-WATER - 100 ML IVPB ONE (21:18)
[2017-05-08 21:23] LABS: MCH 31.3 pg (25.7-33.7); MCHC 33.7 g/dl (32.0-36.0); MEAN PLT VOLUME 9.7 fl (7.5-11.1); PLATELET COUNT 382 K/MM3 (134-434); RDW 13.7 % (11.6-15.6)
--- NOTE | 2017-05-08 21:33 | PDOC ---
History of Present Illness - History of Present Illness Initial Comments: 05/09/17 01:53 Daughter's (Rosetta) Contact Info: [phone] or [phone] <Davis Crowe - Last Filed: 05/09/17 01:52> - General History Source: EMS, Family Exam Limitations: Clinical Condition - History of Present Illness Initial Comments: 05/08/17 23:34 Patient is an 86F with history of afib (s/p ablation and cardioversion), DM, CHF , COPD, CAD and ischemic colitis coming here today from [facility] with the complaint of difficulty breathing for 1 day with associated confusion. EMS reports the patient was tachypneic and tachycardic. Patient is confused and is only able to answer some questions. When asked if she is in pain, she points to her shoulder which her daughter says has been a chronic condition. <Jonathan Flores - Last Filed: 05/09/17 06:44> - General Chief Complaint: Respiratory Distress Stated Complaint: HYPERTENSION Time Seen by Provider: 05/08/17 21:02 Past History <Davis Crowe - Last Filed: 05/09/17 01:52> - Past Medical History Asthma: Yes Cardiac Disorders: Yes (ASHD, cardiac arrythmia) COPD: Yes CHF: Yes HTN: Yes Hypercholesterolemia: Yes - Surgical History Abdominal Surgery: Yes (hiatal hernia repair) Orthopedic Surgery: Yes (erendira hip) - Immunization History Immunization Up to Date: Yes - Suicide/Smoking/Psychosocial Hx Smoking Status: No Smoking History: Never smoked Have you smoked in the past 12 months: No Number of Cigarettes Smoked Daily: 0 If you are a former smoker, when did you quit?: many years Information on smoking cessation initiated: No Hx Alcohol Use: No Drug/Substance Use Hx: No Substance Use Type: None Hx Substance Use Treatment: No <Jonathan Flores - Last Filed: 05/09/17 06:44> - Past Medical History Allergies/Adverse Reactions: Allergies Allergy/AdvReac Type Severity Reaction Status Date / Time Penicillins Allergy Verified 05/08/17 20:51 procaine Allergy Verified 05/08/17 20:52 Home Medications: Ambulatory Orders Ascorbic Acid [Vitamin C with Barbara Hips] 500 mg PO DAILY 01/18/17 Aspirin [ASA -] 81 mg PO DAILY 01/18/17 Cholecalciferol (Vitamin D3) [Vitamin D3] 5,000 unit PO DAILY 01/18/17 Diltiazem HCl [Cartia Xt] 240 mg PO DAILY 01/18/17 Isosorbide Mononitrate [Isosorbide Mononitrate ER] 30 mg PO DAILY 01/18/17 Losartan Potassium 50 mg PO DAILY 01/18/17 Ranitidine [Zantac -] 150 mg PO DAILY 01/18/17 Albuterol 0.083% Nebulizer Madhavi [Ventolin 0.083% Nebulizer Soln -] 1 neb NEB Q6H 04/21/17 Albuterol Sulfate [Proair Respiclick] 90 mcg IH DAILY 04/21/17 Promethazine HCl [Phenergan Plain 6.25 MG/5 ML -] 10 ml PO TID 04/21/17 Nitrofurantoin Macrocrystal [Nitrofurantoin] 100 mg PO BID 04/22/17 Oxycodone HCl [Roxicodone -] 5 mg PO Q6H PRN 04/22/17 Amiodarone HCl [Cordarone -] 200 mg PO BID tablet 05/05/17 Ascorbic Acid [Vitamin C -] 500 mg PO DAILY tablet 05/05/17 Aspirin [ASA -] 81 mg PO DAILY tab.chew 05/05/17 Cholecalciferol (Vitamin D3) [Vitamin D3 -] 5,000 unit PO DAILY tab 05/05/17 Guaifenesin [Robitussin -] 10 ml PO Q6H PRN cup 05/05/17 Isosorbide Mononitrate [Imdur -] 30 mg PO DAILY tab.sr.24h 05/05/17 Losartan Potassium [Cozaar -] 50 mg PO DAILY tablet 05/05/17 Metoprolol Succinate [Toprol XL -] 50 mg PO BID tab.sr.24h 05/05/17 Oxycodone HCl [Roxicodone -] 5 mg PO Q6H PRN tablet MDD 20 05/05/17 Ranitidine [Zantac -] 150 mg PO DAILY tablet 05/05/17 Salmeterol/Fluticasone [Advair 100Mcg/50Mcg -] 1 puff IH BID inhaler 05/05/17 Review of Systems - Review of Systems Able to Perform ROS?: No <Jonathan Flores - Last Filed: 05/09/17 06:44> *Physical Exam - Vital Signs Last Vital Signs Temp Pulse Resp BP Pulse Ox 101.8 F H 109 H 16 109/71 88 L 05/08/17 21:16 05/08/17 20:52 05/08/17 20:52 05/08/17 20:52 05/08/17 20:52 <Davis Crowe - Last Filed: 05/09/17 01:52> - Vital Signs Last Vital Signs Temp Pulse Resp BP Pulse Ox 101.8 F H 109 H 16 109/71 88 L 05/08/17 21:16 05/08/17 20:52 05/08/17 20:52 05/08/17 20:52 05/08/17 20:52 - Physical Exam Comments: 05/08/17 23:44 GENERAL: Lethargic, in acute distress HEAD: No signs of trauma, normocephalic, atraumatic EYES: PERRLA, EOMI, sclera anicteric, conjunctiva clear ENT: Auricles normal inspection, hearing grossly normal, nares patent. Dry mucosa NECK: Normal ROM, supple, no lymphadenopathy, JVD, or masses LUNGS: Tachypneic, in respiratory distress, speaks a few words at a time, coarse breath sounds bilaterally HEART: Tachycardic, regular, no murmurs, rubs or gallops, peripheral pulses normal and equal bilaterally. ABDOMEN: Soft, nontender, normoactive bowel sounds. No guarding, no rebound. No masses EXTREMITIES: Normal inspection, Normal range of motion, no edema. No clubbing or cyanosis. NEUROLOGICAL: Cranial nerves II through XII grossly intact. No focal sensorimotor deficits SKIN: Warm, Dry, normal turgor, no rashes or lesions noted. <Jonathan Flores - Last Filed: 05/09/17 06:44> ED Treatment Course - LABORATORY CBC & Chemistry Diagram: 05/08/17 20:50 05/08/17 20:50 - ADDITIONAL ORDERS Additional order review: Laboratory Results 05/08/17 05/08/17 05/08/17 21:29 21:10 20:59 PT with INR INR PTT (Actin FS) VBG pH 7.34 POC VBG pCO2 40.8 POC VBG pO2 50.1 H Mixed VBG HCO3 21.6 Sodium Potassium Chloride Carbon Dioxide Anion Gap BUN Creatinine Creat Clearance w eGFR Random Glucose Lactic Acid Calcium Magnesium Total Bilirubin AST ALT Alkaline Phosphatase Creatine Kinase Troponin I 0.06 H B-Natriuretic Peptide Total Protein Albumin Urine Color Bianca Urine Appearance Cloudy Urine pH 5.0 Ur Specific Douglas 1.015 Urine Protein Negative Urine Glucose (UA) Negative Urine Ketones Negative Urine Blood Negative Urine Nitrite Negative Urine Bilirubin Negative Urine Urobilinogen Negative Blood Type Antibody Screen Prewarmed Antibody Srcn 05/08/17 05/08/17 05/08/17 20:50 20:50 20:50 PT with INR INR PTT (Actin FS) VBG pH POC VBG pCO2 POC VBG pO2 Mixed VBG HCO3 Sodium Potassium Chloride Carbon Dioxide Anion Gap BUN Creatinine Creat Clearance w eGFR Random Glucose Lactic Acid Calcium Magnesium 2.0 Total Bilirubin AST ALT Alkaline Phosphatase Creatine Kinase Troponin I B-Natriuretic Peptide 31255.26 H Total Protein Albumin Urine Color Urine Appearance Urine pH Ur Specific Douglas Urine Protein Urine Glucose (UA) Urine Ketones Urine Blood Urine Nitrite Urine Bilirubin Urine Urobilinogen Blood Type O POSITIVE Antibody Screen Negative Prewarmed Antibody Srcn Negative 05/08/17 05/08/17 05/08/17 20:50 20:50 20:50 PT with INR 63.80 H INR 5.65 H* D PTT (Actin FS) 40.8 H D VBG pH POC VBG pCO2 POC VBG pO2 Mixed VBG HCO3 Sodium 140 Potassium 6.0 H Chloride 106 Carbon Dioxide 22 Anion Gap 12 BUN 81 H D Creatinine 5.0 H D Creat Clearance w eGFR 8.19 Random Glucose 137 H D Lactic Acid 3.8 H* Calcium 9.2 Magnesium Total Bilirubin 0.8 D AST 13 L D ALT 20 D Alkaline Phosphatase 56 Creatine Kinase 103 Troponin I 0.06 H B-Natriuretic Peptide Total Protein 6.4 Albumin 2.1 L Urine Color Urine Appearance Urine pH Ur Specific Douglas Urine Protein Urine Glucose (UA) Urine Ketones Urine Blood Urine Nitrite Urine Bilirubin Urine Urobilinogen Blood Type Antibody Screen Prewarmed Antibody Srcn 05/08/17 20:50 RBC 2.84 L MCV 93.0 MCHC 33.7 RDW 13.7 MPV 9.7 Neutrophils % No Result Required. Lymphocytes % No Result Required. - Medications Given in the ED: ED Medications Discontinued Medications Generic Name Dose Route Start Last Admin Trade Name Freq PRN Reason Stop Dose Admin Acetaminophen 1,000 mg 11/16/17 21:14 05/08/17 22:00 Ofirmev Injection - IVPB 05/08/17 21:15 1,000 mg ONCE ONE Administration Sodium Chloride 1,000 ml 05/08/17 21:45 05/08/17 22:00 Normal Saline - IV 05/08/17 21:46 1,000 ml ONCE ONE Administration <Davis Crowe - Last Filed: 05/09/17 01:52> - LABORATORY CBC & Chemistry Diagram: 05/09/17 04:14 05/09/17 04:14 - ADDITIONAL ORDERS Additional order review: Laboratory Results 05/08/17 21:10 VBG pH 7.34 POC VBG pCO2 40.8 POC VBG pO2 50.1 H Mixed VBG HCO3 21.6 05/08/17 20:50 RBC 2.84 L MCV 93.0 MCHC 33.7 RDW 13.7 MPV 9.7 Neutrophils % No Result Required. Lymphocytes % No Result Required. <Jonathan Flores - Last Filed: 05/09/17 06:44> Medical Decision Making - Critical Care Time Total Critical Care Time (minutes): 60 Critical Care Statement: The care of this patient involved high complexity decision making to prevent further life threatening deterioration of the patient 's condition and/or to evaluate & treat vital organ system(s) failure or risk of failure. - Medical Decision Making 05/08/17 23:51 Patient is an 86F with history of afib (s/p ablation and cardioversion), DM, CHF , COPD, CAD and ischemic colitis here today with shortness of breath. Febrile, septic. CXR shows lower left lobe infiltrate. Will evaluate with septic workup. Will treat with 1L NS, vanc and gemini (due to penicillin allergy). Central line was attempted in right IJ, however due to respiratory variation was unsuccessful. Blood pressures have been less labile since infusion of 1L of NS. Will start additional 500 mL. 05/08/17 23:54 Laboratory Tests 05/08/17 05/08/17 05/08/17 20:50 20:50 20:50 WBC 28.5 H D Hgb 8.9 L D Hct 26.4 L Plt Count 382 D Neutrophils % (Manual) 88.0 H Band Neutrophils % 3.0 INR 5.65 H* D VBG pH POC VBG pCO2 POC VBG pO2 Potassium 6.0 H BUN 81 H D Creatinine 5.0 H D Random Glucose 137 H D Lactic Acid Troponin I 0.06 H B-Natriuretic Peptide 05/08/17 05/08/17 05/08/17 20:50 20:50 21:10 WBC Hgb Hct Plt Count Neutrophils % (Manual) Band Neutrophils % INR VBG pH 7.34 POC VBG pCO2 40.8 POC VBG pO2 50.1 H Potassium BUN Creatinine Random Glucose Lactic Acid 3.8 H* Troponin I B-Natriuretic Peptide 08200.26 H CBC shows leukocytosis with left shift. INR elevated, no signs of bleeding. K to 6.0. Kidney function has acutely worsened. Trop elevated to .06. Lactic acid elevated, BNP elevated. Consistent with pneumonia, keyonna, heart failure and sepsis. Patient is admitted to the ICU under Dr Cho's service via Dr Bedolla. 05/09/17 06:43 After admission, patient IV access lost. After multiple attempts at multiple locations including ultrasound guided IV, IO was placed to gain access. Patient' s likely dehydration coupled with lack of compliance during IV attempts complicated access attempts. <Jonathan Flores - Last Filed: 05/09/17 06:44> *DC/Admit/Observation/Transfer <Davis Crowe - Last Filed: 05/09/17 01:52> - Discharge Dispostion Admit: Yes <Jonathan Flores - Last Filed: 05/09/17 06:44> Diagnosis at time of Disposition: Sepsis, Healthcare-associated pneumonia - Discharge Dispostion Condition at time of disposition: Critical
[2017-05-08] MEDS ORDERED: PHENYLEPHRINE HCL 10 MG/1 ML SINGLE DOSE VIAL ONE (21:39)
[2017-05-08 21:42] LABS: PROTHROMBIN TIME (PATIENT) 63.8 SEC (9.98-11.88)
[2017-05-08 21:43] LABS: URINE APPEARANCE CLOUDY; URINE BILIRUBIN NEGATIVE (NEGATIVE); URINE BLOOD NEGATIVE (NEGATIVE); URINE COLOR AMBER; URINE GLUCOSE (UA) NEGATIVE (NEGATIVE); URINE KETONE NEGATIVE (NEGATIVE); URINE NITRITE NEGATIVE (NEGATIVE); URINE PROTEIN NEGATIVE (NEGATIVE); URINE UROBILINOGEN NEGATIVE mg/dL (0.2-1.0)
[2017-05-08 21:44] LABS: INR 5.65 (0.82-1.09)
[2017-05-08 21:45] LABS: ACTIVATED PTT 40.8 SECONDS (26.9-34.4)
[2017-05-08] MEDS ORDERED: SODIUM CHLORIDE 0.9% 1000 ML INFUS.BAG IV ONE (21:45)
[2017-05-08 22:05] LABS: ALBUMIN 2.1 g/dl (3.4-5.0); ANION GAP 12 (8-16); BILIRUBIN,TOTAL 0.8 mg/dL (0.2-1.0); CALCIUM 9.2 mg/dL (8.5-10.1); CO2 22 mmol/L (21-32); GLUCOSE,RANDOM 137 mg/dL (74-106); SGOT/AST 13 U/L (15-37); SGPT/ALT 20 U/L (12-78); TOT PROT 6.4 g/dl (6.4-8.2)
[2017-05-08 22:07] LABS: ALK PHOS 56 U/L (45-117); CPK 103 IU/L (26-192); TROPONIN I 0.06 ng/ml (0.00-0.05)
[2017-05-08] MEDS ORDERED: NOREPINEPHRINE BITARTRATE 4 MG/4 ML ML IV ONE (22:08)
[2017-05-08 22:24] LABS: TOTAL CELLS COUNTED 100; WHITE BLOOD COUNT 28.5 K/mm3 (4.0-10.0)
[2017-05-08 22:25] LABS: NUCLEATED RED BLOOD CELL 14 % (0-0); PLATELET ESTIMATE ADEQUATE
[2017-05-08] MEDS ORDERED: ACETAMINOPHEN INJECTION 100 ML IVPB ONE (23:04)
--- NOTE | 2017-05-08 23:38 | PDOC ---
Attending Attestation - Resident Resident Name: Jonathan Flores - ED Attending Attestation I have performed the following: I have examined & evaluated the patient, The case was reviewed & discussed with the resident, I agree w/resident's findings & plan, Exceptions are as noted - HPI HPI: 05/08/17 23:41 86-year-old female with a history of A. fib, arrhythmia status post ablation/ cardioversion last week, CAD, diabetes, CHF, COPD presents with rest for distress at the care home for 1 day. History is limited due to patient's illness. In the ED the patient was febrile to 101.8, tachycardic to the low 100s and satting 100% on nonrebreather. Chest x-ray with a new left lower lobe infiltrate. The patient reports pain only in her shoulders that her daughter states is consistent with her chronic arthritis pain. The patient's daughter also reports that the patient has been confused for the last 2 days. - Physicial Exam PE: 05/08/17 23:45 GENERAL: lethargic but arousable, in no acute distress HEAD: No signs of trauma ENT: dry MM NECK: No JVD, IJ collapses on US LUNGS: BS diminished at the L base HEART: irregularly irregular, no MRG, rate 99 ABDOMEN: Soft, nontender, normoactive bowel sounds. No guarding, no rebound. Rectal: +non thrombosed hemorrhoids noted, no bleeding, rectal temp 38.8 EXTREMITIES: Normal range of motion, no edema. No clubbing or cyanosis. No cords, erythema, or tenderness NEUROLOGICAL: cranial nerves grossly intact SKIN: Warm, Dry, normal turgor, no rashes or lesions noted. - Medical Decision Making 05/08/17 22:49 86-year-old female with multiple medical problems presents with sepsis likely secondary to healthcare acquired pneumonia. Blood pressures have been labile ranging from the 80s systolic to the low 100s systolic. Patient appears to be volume down, will fluid resuscitate and reassess. She will likely require ICU level of care. Plan: -labs -CXR -vanc/gemini -IVF -reassess -ICU admit 05/08/17 23:52 Labs remarkable for white count to 28, creatinine to 5 which is newly elevated compared to recent creatinine 5 days ago, potassium of 6 and lactate of 3.5. Patient has completed 1 L of normal saline and blood pressure is currently in the 90s over 70s. Will give the patient a 500 mL bolus with close monitoring of respiratory status due to CHF. Case has been discussed with Dr. Bedolla who was covering for the patient's primary physician Dr. Amador. Case was also discussed with nurse practitioner Arcenio from the ICU. Patient is to be transferred up shortly. Goals of care has been discussed with the patient's healthcare proxy nathalia. She reports the patient is full code. Discharge Disposition - Diagnosis Sepsis, Healthcare-associated pneumonia - Discharge Dispostion Condition at time of disposition: Guarded Last Admission D/C Date: 05/05/17 Admit: Yes - Referrals Referrals: Ira Cho MD [Primary Care Provider] - - Patient Instructions - Post Discharge Activity Heart Score/ECG Review #1 05/08/17 23:51 Twelve-lead EKG was performed and reviewed by me. Atrial fibrillation, rate 72. Left axis deviation. No ST elevations.
[2017-05-08] MEDS ORDERED: SODIUM CHLORIDE 500 ML IV STA (23:50)
--- NOTE | 2017-05-08 23:57 | CONSULT ---
Consult - text type - Consultation Consultation Note: PULM/CCM Pt seen and examined. 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 Pt was just d/c from [facility] to [facility] on the 05/05 after short hospitalization for UTI. Daughter relates pt was unwell since leaving hospital. Had essentially no PO intake since discharge, with waxing waning mental status, and general decline.Today was noted to be slightly confused and short of breath. EMS was activated by [place]. EMS found pt to be tachpneic and hypoxic, placed on NRB. No reported falls, LOC, chest pain, n/v/d. In ED pt was febrile to 101, tachycardic and tachypneic. BP 80s/50s. CXR with worsening LLL infiltrate. Labs notable for WBC of 28, N predominant, 3%bandemia , BUN/Cr 80/5, INR 5 (not on anticoagulation), trop 0.06, BNP 14K. ED gave 1L of NS however IV failed, started broad spectrum abx for HAP (gemini/ vanco). Given altered mental status and coagulopathy pt had CT head performed. Multiple attempts at gaining adequate access were unsuccessful including IJ attempts and IO also infiltrated. Transferred to ICU for further care. Past Medical History Cardio/Vascular CAD,HTN,Hyperlipdemia Pulmonary COPD Gastrointestinal Diverticulitis,Diverticulosis,Other Past Surgical History Past Surgical History None,Appendectomy,Colectomy,Hysterectomy Smoking History Smoking history Never smoked Aproximately how many 0 cigarettes per day If you are a former smoker, many years when did you quit? Alcohol/Substance Use Hx Alcohol Use No History of Substance Use None Social History Usual Living Arrangement With Child ADL Family Assistance History of Recent Travel No Vital Signs Temp 101.8 F H 05/08/17 21:16 Pulse 109 H 05/08/17 20:52 Resp 16 05/08/17 20:52 BP 109/71 05/08/17 20:52 Pulse Ox 88 L 05/08/17 20:52 Intake & Output 1105/08/17 05/08/17 23:59 11:59 23:59 Weight 110.677 kg Other: Height 5 ft 7 in Body Mass Index (BMI) 38.2 Weight Measurement Method Est/Stated by Patient CBCD WBC 28.5 K/mm3 (4.0-10.0) H D 05/08/17 20:50 RBC 2.84 M/mm3 (3.60-5.2) L 05/08/17 20:50 Hgb 8.9 GM/dL (10.7-15.3) L D 05/08/17 20:50 Hct 26.4 % (32.4-45.2) L 05/08/17 20:50 MCV 93.0 fl (80-96) 05/08/17 20:50 MCHC 33.7 g/dl (32.0-36.0) 05/08/17 20:50 RDW 13.7 % (11.6-15.6) 05/08/17 20:50 Plt Count 382 K/MM3 (134-434) D 05/08/17 20:50 MPV 9.7 fl (7.5-11.1) 05/08/17 20:50 CMP Sodium 140 mmol/L (136-145) 05/08/17 20:50 Potassium 6.0 mmol/L (3.5-5.1) H 05/08/17 20:50 Chloride 106 mmol/L (98-107) 05/08/17 20:50 Carbon Dioxide 22 mmol/L (21-32) 05/08/17 20:50 Anion Gap 12 (8-16) 05/08/17 20:50 BUN 81 mg/dL (7-18) H D 05/08/17 20:50 Creatinine 5.0 mg/dL (0.55-1.02) H D 05/08/17 20:50 Creat Clearance w eGFR 8.19 (>60) 05/08/17 20:50 Calcium 9.2 mg/dL (8.5-10.1) 05/08/17 20:50 Total Bilirubin 0.8 mg/dL (0.2-1.0) D 05/08/17 20:50 AST 13 U/L (15-37) L D 05/08/17 20:50 ALT 20 U/L (12-78) D 05/08/17 20:50 Alkaline Phosphatase 56 U/L (45-117) 05/08/17 20:50 Total Protein 6.4 g/dl (6.4-8.2) 05/08/17 20:50 Albumin 2.1 g/dl (3.4-5.0) L 05/08/17 20:50 INR, PTT INR 5.65 (0.82-1.09) H* D 05/08/17 20:50 ROS: unable due to Mental status PE: Gen: eld woman, confused, in mild distress HEENT: EOMI, sclera non-icteric, extremely dry oral mucosa with lip and tongue cracking PULM: coarse crackles L base CV: no m/r/g appreciated, distant heart sounds ABD: obese, soft, NT EXT: no edema Derm: no rash, dry, poor turgor. CXR reviewed. 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 now with LLL pna c/b AMS and EMANUEL P/ -PNA--> agree with broad spectrum abx, Dr Rinaldi followed in past, reconsult in AM, received Gemini/Vanco *fio2 as needed *family amenable to intubation if necessary *not good candidate for NIV given AMS, agitation -AMS: likely toxic metabolic encephalopathy *stat CT head, *correct coaguloapathy--Vit K if no bleed, more aggressive with FFP in evidence of ICH -EMANUEL- * needs large volume resuscitation, repeat BMP, send urine studies * hyperkalemic cocktail, making urine so will likely not need renal replacement Prophy: *no sqh given coagulopathy *gi prophy, renal dose Arcenio Llanes ACNP [id number] 35min CCT
[2017-05-09 03:52] VITALS: BMI 35.6
[2017-05-09] MEDS ORDERED: SODIUM CHLORIDE 0.9% 1000 ML INFUS.BAG IV ONE ×2 (04:24→05:26)
[2017-05-09] MEDS ORDERED: PHYTONADIONE 10 MG/1 ML AMP IVPB ONE (04:26)
--- NOTE | 2017-05-09 04:26 | PROC ---
Central Line Insertion Indication: Poor Venous Access Risks and Benefits Explained: Yes Consent on Chart: Yes (verbal from daughter) Central Line: Triple Lumen Catheter Anesthesia: 1% Lidocaine Sterile Technique: Yes Ultrasound Guided Assistance: Yes Position: Right Internal Jugular Post Insertion: Yes: Bilateral Breath Sounds, Chest X-Ray Ordered (confirmed at SVC/RA junction) Sterile Dressing Applied: Yes
[2017-05-09 04:34] LABS: BASOPHIL 0.3 % (0-2.0); EOSINOPHIL 5.4 % (0-4.5); MCH 28.1 pg (25.7-33.7); MCHC 33.2 g/dl (32.0-36.0); MEAN CELL VOLUME 84.8 fl (80-96); MEAN PLT VOLUME 9.7 fl (7.5-11.1); NEUTROPHILS 86.5 % (42.8-82.8); PLATELET COUNT 331 K/MM3 (134-434); RDW 13.6 % (11.6-15.6)
[2017-05-09 04:47] LABS: PROTHROMBIN TIME (PATIENT) 54.4 SEC (9.98-11.88)
[2017-05-09 04:50] LABS: ACTIVATED PTT 22.2 SECONDS (26.9-34.4)
[2017-05-09 04:58] LABS: ALBUMIN 1.9 g/dl (3.4-5.0); ANION GAP 10 (8-16); BILIRUBIN,TOTAL 0.8 mg/dL (0.2-1.0); CO2 23 mmol/L (21-32); CREATININE 4.7 mg/dL (0.55-1.02); GLUCOSE,RANDOM 122 mg/dL (74-106); SGOT/AST 15 U/L (15-37); TOT PROT 5.8 g/dl (6.4-8.2)
[2017-05-09 05:06] LABS: INR 4.81 (0.82-1.09)
[2017-05-09 05:11] LABS: ALK PHOS 46 U/L (45-117); SGPT/ALT 19 U/L (12-78)
[2017-05-09] MEDS ORDERED: NOREPINEPHRINE BITARTRATE 4 MG/4 ML ML IV ONE ×2 (05:54→11:07)
[2017-05-09] MEDS: NOREPINEPHRINE BITARTRATE 4,000 MCG in DEXTROSE 5%-WATER - 496 ML IV SCH (05:56)
[2017-05-09] MEDS: PANTOPRAZOLE 40 MG TABLET (FP) PO SCH ×2 (06:57→10:50)
--- NOTE | 2017-05-09 10:02 | EKG ---
Test Reason : Blood Pressure : / mmHG Vent. Rate : 072 BPM Atrial Rate : 202 BPM P-R Int : 000 ms QRS Dur : 098 ms QT Int : 390 ms P-R-T Axes : 000 -38 082 degrees QTc Int : 427 ms ATRIAL FIBRILLATION LEFT AXIS DEVIATION NONSPECIFIC T WAVE ABNORMALITY ABNORMAL ECG WHEN COMPARED WITH ECG OF 01-MAY-2017 12:56, ATRIAL FIBRILLATION HAS REPLACED SINUS RHYTHM NONSPECIFIC T WAVE ABNORMALITY, WORSE IN LATERAL LEADS Confirmed by TWAN MADSEN MD ([id number]) on 05/09/2017 10:02:00 AM Referred By: Confirmed By:TWAN MADSEN MD
--- NOTE | 2017-05-09 10:44 | HP ---
DATE OF ADMISSION: 05/08/2017 DATE OF DICTATION: 05/09/2017 HISTORY OF PRESENT ILLNESS: This is an 86-year-old female recently admitted to [facility]. She had been here last week with atrial fibrillation intractable with medications. After that, patient had PEE and cardioversion and was in sinus rhythm. Yesterday, she was found unresponsive and lethargic in the [facility]. She was transferred here, found to be in septic with possible pneumonia. This morning, she is awake and talking. PHYSICAL EXAMINATION: Vital signs: On examination, her blood pressure is 90/50, pulse 74, respirations 20, temperature 98. HEENT: Unremarkable. Neck: supple. Lungs: Bilateral crepitations heard. Heart: S1, S2 normal. No S3, S4. Abdomen: Soft. Extremities: Legs no edema. Urine output is okay. IMPRESSION: Sepsis, etiology not clear, atrial fibrillation, congestive heart failure. PLAN: ID consult, Dr. Rinaldi, and cardiology consult, Dr. Hawkins. Will follow. Jenny [id number]
[2017-05-09] MEDS: SODIUM CHLORIDE 1,000 ML IV SCH ×2 (10:47→22:35)
[2017-05-09 11:10] LABS: SODIUM,RANDOM URINE 7 MMOL/L
--- NOTE | 2017-05-09 12:01 | CON.ID ---
Consult Consult Specialty:: infectious diseases Referred by:: Dr Cho Reason for Consultation:: confusion,fever,pna - History of Present Illness History of Present Illness: 86-year-old female with a history of A. fib, arrhythmia status post ablation/ cardioversion last week, CAD, diabetes, CHF, COPD presents who was also treated for pna [facility] of [facility] distress and when the patient came to the ER she spiked a fever of 101.8, was tachycardiac and had to be put on non rebreather and was hypotensive and tachy In short she was septic When i asked her now what happened she does not know what happened r. Chest x-ray with a new left lower lobe infiltrate. The patient reports pain only in her shoulders that her daughter states is consistent with her chronic arthritis pain. The patient's daughter also reports that the patient has been confused for the last 2 days. also of note is theta her creatinine has jumped up high she according to the staff looks slightly better and is off of the non rebreather now - History Source History Provided By: Medical Record Limitations to Obtaining History: Clinical Condition - Past Medical History Cardio/Vascular: Yes: CAD, HTN, Hyperlipdemia Pulmonary: Yes: COPD Gastrointestinal: Yes: Diverticulitis, Diverticulosis, Other (ischemic colitis, h/o colon polyps) - Past Surgical History Past Surgical History: Yes: None, Appendectomy, Colectomy (partial colectomy for perforation from ? diverticulitis/ischemic colitis), Hysterectomy (JW/BSO) - Alcohol/Substance Use Hx Alcohol Use: No History of Substance Use: reports: None - Smoking History Smoking history: Never smoked Have you smoked in the past 12 months: No Aproximately how many cigarettes per day: 0 If you are a former smoker, when did you quit?: many years - Social History Usual Living Arrangement: With Child ADL: Family Assistance History of Recent Travel: No Home Medications - Allergies Allergies/Adverse Reactions: Allergies Allergy/AdvReac Type Severity Reaction Status Date / Time Penicillins Allergy Verified 05/08/17 20:51 procaine Allergy Verified 05/08/17 20:52 - Home Medications Home Medications: Ambulatory Orders Ascorbic Acid [Vitamin C with Barbara Hips] 500 mg PO DAILY 01/18/17 Aspirin [ASA -] 81 mg PO DAILY 01/18/17 Cholecalciferol (Vitamin D3) [Vitamin D3] 5,000 unit PO DAILY 01/18/17 Diltiazem HCl [Cartia Xt] 240 mg PO DAILY 01/18/17 Isosorbide Mononitrate [Isosorbide Mononitrate ER] 30 mg PO DAILY 01/18/17 Losartan Potassium 50 mg PO DAILY 01/18/17 Ranitidine [Zantac -] 150 mg PO DAILY 01/18/17 Albuterol 0.083% Nebulizer Madhavi [Ventolin 0.083% Nebulizer Soln -] 1 neb NEB Q6H 04/21/17 Albuterol Sulfate [Proair Respiclick] 90 mcg IH DAILY 04/21/17 Promethazine HCl [Phenergan Plain 6.25 MG/5 ML -] 10 ml PO TID 04/21/17 Nitrofurantoin Macrocrystal [Nitrofurantoin] 100 mg PO BID 04/22/17 Oxycodone HCl [Roxicodone -] 5 mg PO Q6H PRN 04/22/17 Amiodarone HCl [Cordarone -] 200 mg PO BID tablet 05/05/17 Ascorbic Acid [Vitamin C -] 500 mg PO DAILY tablet 05/05/17 Aspirin [ASA -] 81 mg PO DAILY tab.chew 05/05/17 Cholecalciferol (Vitamin D3) [Vitamin D3 -] 5,000 unit PO DAILY tab 05/05/17 Guaifenesin [Robitussin -] 10 ml PO Q6H PRN cup 05/05/17 Isosorbide Mononitrate [Imdur -] 30 mg PO DAILY tab.sr.24h 05/05/17 Losartan Potassium [Cozaar -] 50 mg PO DAILY tablet 05/05/17 Metoprolol Succinate [Toprol XL -] 50 mg PO BID tab.sr.24h 05/05/17 Oxycodone HCl [Roxicodone -] 5 mg PO Q6H PRN tablet MDD 20 05/05/17 Ranitidine [Zantac -] 150 mg PO DAILY tablet 05/05/17 Salmeterol/Fluticasone [Advair 100Mcg/50Mcg -] 1 puff IH BID inhaler 05/05/17 Family Disease History - Family Disease History Family Disease History: CA: Son (colon ca) Review of Systems Unable to obtain ROS, reason: unable to obtain Physical Exam Vital Signs: Vital Signs Temperature 97.8 F 05/09/17 06:00 Pulse Rate 67 05/09/17 11:22 Respiratory Rate 19 05/09/17 06:30 Blood Pressure 81/54 05/09/17 11:22 O2 Sat by Pulse Oximetry (%) 97 05/09/17 10:27 Constitutional: Yes: Obese, Other Eyes: Yes: Conjunctiva Clear Neck: Yes: Supple, Trachea Midline Cardiovascular: Yes: Pulse Irregular, S1 Respiratory: Yes: On Nasal O2, Poor Air Entry, Rhonchi Gastrointestinal: Yes: Normal Bowel Sounds, Soft Musculoskeletal: Yes: WNL Extremities: Yes: WNL Neurological: Yes: Alert, Confusion Psychiatric: Yes: Other Labs: CBC, BMP 05/09/17 04:14 05/09/17 04:14 Imaging - Results Chest X-ray: Report Reviewed, Image Reviewed Cat Scan: Report Reviewed, Image Reviewed Ultrasound: Report Reviewed, Image Reviewed Assessment/Plan patient with sudden onset of septic symptoms could be probably lung also i am worried about the urinary tract infection it seems heart rate has also changed Septic Shock EMANUEL Toxic Metabolic Encephalopathy PNA Obesity AFib Anemia Coagulopathy patient has already received a dose of vanco and meropenam plan will continue meropenam will give vanco according to levels resp support await for blood cx to be back close watch on heart rate rest as per icu cc time 40 min
[2017-05-09] MEDS ORDERED: HEMOQUE TEST 1 EACH EACH ONE (12:19)
--- NOTE | 2017-05-09 12:28 | CON.NEP ---
Consult Consult Specialty:: Nephrolgoy Referred by:: Dr. Cho Reason for Consultation:: Acute Renal Failure - History of Present Illness Chief Complaint: SOB History of Present Illness: This is a 86 year old woman with PMhx of Afib, Arrythmia s/p Cardioversion, CAD , Hypertension, HLD, COPD, Ischemic Colitis, mild CKD (Cr 1.6-1.8 in the EMR) who presented with SOB and found to have Sepsis secodnary to PNA with EMANUEL with Cr of 5. Pt is s/p recent hospital admission to [place] for UTI. Pt denies any history of CKD including kidney stones. Pt denies any NSAID use. No recent contrast exposure. Pt was on ARB on D/c. Pt with eosinophilia on cbc but no rash or puritis (was recently on Abx). Pt in the ICU, on IVF, getting Levophed. On Facemask O2. Awake and alert. - History Source History Provided By: Patient Limitations to Obtaining History: Clinical Condition - Past Medical History Cardio/Vascular: Yes: CAD, HTN, Hyperlipdemia Pulmonary: Yes: COPD Gastrointestinal: Yes: Diverticulitis, Diverticulosis, Other (ischemic colitis, h/o colon polyps) - Past Surgical History Past Surgical History: Yes: None, Appendectomy, Colectomy (partial colectomy for perforation from ? diverticulitis/ischemic colitis), Hysterectomy (JW/BSO) - Alcohol/Substance Use Hx Alcohol Use: No History of Substance Use: reports: None - Smoking History Smoking history: Never smoked Have you smoked in the past 12 months: No Aproximately how many cigarettes per day: 0 If you are a former smoker, when did you quit?: many years - Social History Usual Living Arrangement: With Child ADL: Family Assistance History of Recent Travel: No Home Medications - Allergies Allergies/Adverse Reactions: Allergies Allergy/AdvReac Type Severity Reaction Status Date / Time Penicillins Allergy Verified 05/08/17 20:51 procaine Allergy Verified 05/08/17 20:52 - Home Medications Home Medications: Ambulatory Orders Ascorbic Acid [Vitamin C with Barbara Hips] 500 mg PO DAILY 01/18/17 Aspirin [ASA -] 81 mg PO DAILY 01/18/17 Cholecalciferol (Vitamin D3) [Vitamin D3] 5,000 unit PO DAILY 01/18/17 Diltiazem HCl [Cartia Xt] 240 mg PO DAILY 01/18/17 Isosorbide Mononitrate [Isosorbide Mononitrate ER] 30 mg PO DAILY 01/18/17 Losartan Potassium 50 mg PO DAILY 01/18/17 Ranitidine [Zantac -] 150 mg PO DAILY 01/18/17 Albuterol 0.083% Nebulizer Madhavi [Ventolin 0.083% Nebulizer Soln -] 1 neb NEB Q6H 04/21/17 Albuterol Sulfate [Proair Respiclick] 90 mcg IH DAILY 04/21/17 Promethazine HCl [Phenergan Plain 6.25 MG/5 ML -] 10 ml PO TID 04/21/17 Nitrofurantoin Macrocrystal [Nitrofurantoin] 100 mg PO BID 04/22/17 Oxycodone HCl [Roxicodone -] 5 mg PO Q6H PRN 04/22/17 Amiodarone HCl [Cordarone -] 200 mg PO BID tablet 05/05/17 Ascorbic Acid [Vitamin C -] 500 mg PO DAILY tablet 05/05/17 Aspirin [ASA -] 81 mg PO DAILY tab.chew 05/05/17 Cholecalciferol (Vitamin D3) [Vitamin D3 -] 5,000 unit PO DAILY tab 05/05/17 Guaifenesin [Robitussin -] 10 ml PO Q6H PRN cup 05/05/17 Isosorbide Mononitrate [Imdur -] 30 mg PO DAILY tab.sr.24h 05/05/17 Losartan Potassium [Cozaar -] 50 mg PO DAILY tablet 05/05/17 Metoprolol Succinate [Toprol XL -] 50 mg PO BID tab.sr.24h 05/05/17 Oxycodone HCl [Roxicodone -] 5 mg PO Q6H PRN tablet MDD 20 05/05/17 Ranitidine [Zantac -] 150 mg PO DAILY tablet 05/05/17 Salmeterol/Fluticasone [Advair 100Mcg/50Mcg -] 1 puff IH BID inhaler 05/05/17 Family Disease History - Family Disease History Family Disease History: CA: Son (colon ca) Review of Systems - Review of Systems Constitutional: reports: Chills, Lethargy, Weakness Eyes: reports: No Symptoms HENT: reports: No Symptoms Neck: reports: No Symptoms Cardiovascular: reports: Shortness of Breath. denies: Chest Pain, Edema, Palpitations Respiratory: reports: Cough, SOB, SOB on Exertion. denies: Orthopnea, PND Gastrointestinal: denies: Abdominal Pain, Diarrhea, Nausea, Vomiting Genitourinary: reports: No Symptoms Musculoskeletal: reports: No Symptoms Neurological: reports: No Symptoms Endocrine: reports: No Symptoms Hematology/Lymphatic: reports: No Symptoms Nephrology Consult - Height Height: 5 ft 7 in - Weight Weight: 103.328 kg - BMI Body Mass Index (BMI): 35.6 - Lab Results CBC,BMP: CBC, BMP 05/09/17 04:14 05/09/17 04:14 Anion Gap: Anion Gap Anion Gap 10 (8-16) 05/09/17 04:14 - Physical Examination Vital Signs: Vital Signs Temperature 97.8 F 05/09/17 06:00 Pulse Rate 67 05/09/17 11:22 Respiratory Rate 19 05/09/17 06:30 Blood Pressure 81/54 05/09/17 11:22 O2 Sat by Pulse Oximetry (%) 97 05/09/17 10:27 Assessment/Plan 86 year old woman with PMhx of Afib, Arrythmia s/p Cardioversion, CAD, Hypertension, HLD, COPD, Ischemic Colitis, mild CKD (Cr 1.6-1.8 in the EMR) who presented with SOB and found to have Sepsis secondary to PNA with EMANUEL with Cr of 5. #Acute on Chronic Renal Insufficiency in setting fo Sepsis/PNA with preserved tubular function secondary to hemadynamic injury from Sepsis + ARB Urine studies show low FeNa and thus preserved tubular function continue isotonic saline and vasopresser to maintain MAP > 65 CVP goal is 8-10 continue empiric Abx as per ID Dose all meds for CrCl less then 15 no acute indication for [employer] trend Urine output #Sepsis syndrome with PNA ICU care Abx as per ID O2 as needed #Hx of Hypertension, now hypotensive Keep MAP > 65 hold antihypertensives #Anemia/Eiosinophilia Check Urine Eios monitor trend Transfuse for Hgb less then 7 #Mild Hyperkalemia likely due to decreased distal delivery of Na in setting of hypovolemia trend for now no need for kayexalate #Lactic acidosis, now improved continue fluids keep MAP > 65 Thank you Will follow Alex Diaz DO
--- NOTE | 2017-05-09 12:29 | PN ---
Teaching Attending Note Name of Resident: Graciela Betancourt ATTENDING PHYSICIAN STATEMENT I saw and evaluated the patient. I reviewed the resident's note and discussed the case with the resident. I agree with the resident's findings and plan as documented. SUBJECTIVE: Patient seen and examined in the ICU. Lethargic but arousable. Reports some non-specific lower abdominal discomfort. Denies CP or SOB. Remains on NE @ 15 mcq for hemodynamic support. Mildly tachypneic on 40% VM O2. Intake & Output 05/06/17 05/07/17 05/08/17 05/09/17 23:59 23:59 23:59 23:59 Intake Total 2163 Output Total 300 Balance 1863 Weight 244 lb 227 lb 12.8 oz Last Vital Signs Temp Pulse Resp BP Pulse Ox 97.8 F 67 19 81/54 97 05/09/17 06:00 05/09/17 11:22 05/09/17 06:30 05/09/17 11:22 05/09/17 10:27 Active Medications Norepinephrine Bitartrate 4, (000 mcg/ Dextrose) 500 mls @ 37.5 mls/hr IV TITR MALIK; 5 MCG/MIN PRN Reason: Protocol Last Titration: 05/09/17 11:22 Dose: 10 mcg/min, 75 mls/hr Sodium Chloride (Normal Saline -) 1,000 mls @ 100 mls/hr IV ASDIR [facility] Last Admin: 05/09/17 10:47 Dose: 100 mls/hr Meropenem (Merrem (Restricted To Id) -) 500 mg in 10 mls @ 120 mls/hr IVPUSH BID MALIK Morphine Sulfate (Morphine Sulfate) 2 mg IVPUSH Q3H PRN PRN Reason: PAIN Pantoprazole Sodium (Protonix -) 40 mg PO DAILY [facility] Last Admin: 05/09/17 10:50 Dose: Not Given GENERAL: lethargic but arousable, mildly tachypneic on VM O2 HEAD: No signs of trauma ENT: dry MM NECK: No JVD, R IJ TLC LUNGS: BS diminished at the L base HEART: irregularly irregular ABDOMEN: Soft, Mild tenderness in the lower abdomen/suprapubic area, (+) BS, obese, No guarding, no rebound. EXTREMITIES: Normal range of motion, no edema. No clubbing or cyanosis. No cords, erythema, or tenderness NEUROLOGICAL: Non-focal SKIN: Warm, Dry, normal turgor, no rashes or lesions noted. Laboratory Results - last 24 hr 05/08/17 05/08/17 05/08/17 20:50 20:50 20:50 WBC 28.5 H D Corrected WBC (auto) 25.00 RBC 2.84 L Hgb 8.9 L D Hct 26.4 L MCV 93.0 MCH 31.3 MCHC 33.7 RDW 13.7 Plt Count 382 D MPV 9.7 Total Counted 100 Neutrophils % No Result Required. Neutrophils % (Manual) 88.0 H Band Neutrophils % 3.0 Lymphocytes % No Result Required. Lymphocytes % (Manual) 6.0 L Monocytes % Monocytes % (Manual) 2 L Eosinophils % Eosinophils % (Manual) 1.0 Basophils % Nucleated RBC % 14 H* Platelet Estimate Adequate Platelet Comment PT with INR 63.80 H INR 5.65 H* D PTT (Actin FS) 40.8 H D VBG pH POC VBG pCO2 POC VBG pO2 Mixed VBG HCO3 Sodium 140 Potassium 6.0 H Chloride 106 Carbon Dioxide 22 Anion Gap 12 BUN 81 H D Creatinine 5.0 H D Creat Clearance w eGFR 8.19 Random Glucose 137 H D Lactic Acid Calcium 9.2 Magnesium Total Bilirubin 0.8 D AST 13 L D ALT 20 D Alkaline Phosphatase 56 Creatine Kinase 103 Troponin I 0.06 H B-Natriuretic Peptide Total Protein 6.4 Albumin 2.1 L Urine Color Urine Appearance Urine pH Ur Specific Gering Urine Protein Urine Glucose (UA) Urine Ketones Urine Blood Urine Nitrite Urine Bilirubin Urine Urobilinogen Ur Random Sodium Ur Random Potassium Ur Random Chloride Urine Creatinine Blood Type Antibody Screen Prewarmed Antibody Srcn 05/08/17 05/08/17 05/08/17 20:50 20:50 20:50 WBC Corrected WBC (auto) RBC Hgb Hct MCV MCH MCHC RDW Plt Count MPV Total Counted Neutrophils % Neutrophils % (Manual) Band Neutrophils % Lymphocytes % Lymphocytes % (Manual) Monocytes % Monocytes % (Manual) Eosinophils % Eosinophils % (Manual) Basophils % Nucleated RBC % Platelet Estimate Platelet Comment PT with INR INR PTT (Actin FS) VBG pH POC VBG pCO2 POC VBG pO2 Mixed VBG HCO3 Sodium Potassium Chloride Carbon Dioxide Anion Gap BUN Creatinine Creat Clearance w eGFR Random Glucose Lactic Acid 3.8 H* Calcium Magnesium Total Bilirubin AST ALT Alkaline Phosphatase Creatine Kinase Troponin I B-Natriuretic Peptide 69383.26 H Total Protein Albumin Urine Color Urine Appearance Urine pH Ur Specific Gering Urine Protein Urine Glucose (UA) Urine Ketones Urine Blood Urine Nitrite Urine Bilirubin Urine Urobilinogen Ur Random Sodium Ur Random Potassium Ur Random Chloride Urine Creatinine Blood Type O POSITIVE Antibody Screen Negative Prewarmed Antibody Srcn Negative 05/08/17 05/08/17 05/08/17 20:50 20:59 21:10 WBC Corrected WBC (auto) RBC Hgb Hct MCV MCH MCHC RDW Plt Count MPV Total Counted Neutrophils % Neutrophils % (Manual) Band Neutrophils % Lymphocytes % Lymphocytes % (Manual) Monocytes % Monocytes % (Manual) Eosinophils % Eosinophils % (Manual) Basophils % Nucleated RBC % Platelet Estimate Platelet Comment PT with INR INR PTT (Actin FS) VBG pH 7.34 POC VBG pCO2 40.8 POC VBG pO2 50.1 H Mixed VBG HCO3 21.6 Sodium Potassium Chloride Carbon Dioxide Anion Gap BUN Creatinine Creat Clearance w eGFR Random Glucose Lactic Acid Calcium Magnesium 2.0 Total Bilirubin AST ALT Alkaline Phosphatase Creatine Kinase Troponin I 0.06 H B-Natriuretic Peptide Total Protein Albumin Urine Color Urine Appearance Urine pH Ur Specific Gering Urine Protein Urine Glucose (UA) Urine Ketones Urine Blood Urine Nitrite Urine Bilirubin Urine Urobilinogen Ur Random Sodium Ur Random Potassium Ur Random Chloride Urine Creatinine Blood Type Antibody Screen Prewarmed Antibody Srcn 05/08/17 05/09/17 05/09/17 21:29 04:14 04:14 WBC 24.0 H Corrected WBC (auto) RBC 3.09 L Hgb 8.7 L Hct 26.2 L MCV 84.8 D MCH 28.1 D MCHC 33.2 RDW 13.6 Plt Count 331 MPV 9.7 Total Counted Neutrophils % 86.5 H D Neutrophils % (Manual) Band Neutrophils % Lymphocytes % 4.6 L D Lymphocytes % (Manual) Monocytes % 3.2 L Monocytes % (Manual) Eosinophils % 5.4 H Eosinophils % (Manual) Basophils % 0.3 Nucleated RBC % Platelet Estimate Platelet Comment PT with INR 54.40 H INR 4.81 H* PTT (Actin FS) 22.2 L D VBG pH POC VBG pCO2 POC VBG pO2 Mixed VBG HCO3 Sodium Potassium Chloride Carbon Dioxide Anion Gap BUN Creatinine Creat Clearance w eGFR Random Glucose Lactic Acid Calcium Magnesium Total Bilirubin AST ALT Alkaline Phosphatase Creatine Kinase Troponin I B-Natriuretic Peptide Total Protein Albumin Urine Color Bianac Urine Appearance Cloudy Urine pH 5.0 Ur Specific Gering 1.015 Urine Protein Negative Urine Glucose (UA) Negative Urine Ketones Negative Urine Blood Negative Urine Nitrite Negative Urine Bilirubin Negative Urine Urobilinogen Negative Ur Random Sodium Ur Random Potassium Ur Random Chloride Urine Creatinine Blood Type Antibody Screen Prewarmed Antibody Srcn 05/09/17 05/09/17 05/09/17 04:14 04:14 08:00 WBC Corrected WBC (auto) RBC Hgb Hct MCV MCH MCHC RDW Plt Count MPV Total Counted Neutrophils % Neutrophils % (Manual) Band Neutrophils % Lymphocytes % Lymphocytes % (Manual) Monocytes % Monocytes % (Manual) Eosinophils % Eosinophils % (Manual) Basophils % Nucleated RBC % Platelet Estimate Platelet Comment PT with INR INR PTT (Actin FS) VBG pH POC VBG pCO2 POC VBG pO2 Mixed VBG HCO3 Sodium 143 Potassium 5.3 H Chloride 110 H Carbon Dioxide 23 Anion Gap 10 BUN 85 H Creatinine 4.7 H Creat Clearance w eGFR 8.79 Random Glucose 122 H Lactic Acid 1.9 0.9 Calcium 9.0 Magnesium Total Bilirubin 0.8 AST 15 ALT 19 Alkaline Phosphatase 46 Creatine Kinase Troponin I B-Natriuretic Peptide Total Protein 5.8 L Albumin 1.9 L Urine Color Urine Appearance Urine pH Ur Specific Gering Urine Protein Urine Glucose (UA) Urine Ketones Urine Blood Urine Nitrite Urine Bilirubin Urine Urobilinogen Ur Random Sodium Ur Random Potassium Ur Random Chloride Urine Creatinine Blood Type Antibody Screen Prewarmed Antibody [facility] 05/09/17 05/09/17 08:00 09:15 WBC Corrected WBC (auto) RBC Hgb Hct MCV MCH MCHC RDW Plt Count MPV Total Counted Neutrophils % Neutrophils % (Manual) Band Neutrophils % Lymphocytes % Lymphocytes % (Manual) Monocytes % Monocytes % (Manual) Eosinophils % Eosinophils % (Manual) Basophils % Nucleated RBC % Platelet Estimate Platelet Comment PT with INR INR PTT (Actin FS) VBG pH POC VBG pCO2 POC VBG pO2 Mixed VBG HCO3 Sodium Potassium Chloride Carbon Dioxide Anion Gap BUN Creatinine Creat Clearance w eGFR Random Glucose Lactic Acid Calcium Magnesium Total Bilirubin AST ALT Alkaline Phosphatase Creatine Kinase Troponin I 0.05 B-Natriuretic Peptide Total Protein Albumin Urine Color Urine Appearance Urine pH Ur Specific Gering Urine Protein Urine Glucose (UA) Urine Ketones Urine Blood Urine Nitrite Urine Bilirubin Urine Urobilinogen Ur Random Sodium 7 Ur Random Potassium 16.6 Ur Random Chloride < 10 Urine Creatinine 68.0 Blood Type Antibody Screen Prewarmed Antibody Srcn IMP: Septic Shock due to a suspected tract source EMANUEL Toxic Metabolic Encephalopathy (?) PNA Obesity AFib Anemia Coagulopathy ABX per ID Follow cultures Check CVP to guide IVF resuscitation Pressors for hemodynamic support O2 as needed to maintain saturation Strict I&O Follow daily INR & monitor for bleeding Follow BMP / Renal evaluation GI prophylaxis Decolonization ICU monitoring Dr Amaya Critical care time spent in reviewing chart, evaluating patient and formulating plan - 40 minutes.
[2017-05-09] MEDS ORDERED: MEROPENEM 500 MG PUSH 500 MG/10 ML IVPB SCH (12:30)
--- NOTE | 2017-05-09 15:29 | PN ---
Physical Exam: SUBJECTIVE: Patient seen and examined on presser, levophed and venti mask. Lethargic but claims to have improved from admission. Denies fever, chills, n, v , abdominal pain. OBJECTIVE: Vital Signs Period Temp Pulse Resp BP Sys/Rodriguez Pulse Ox Last 24 Hr 97 F-101.8 F 65-109 12-27 74-133/40-95 88-100 GENERAL: The patient is lethargic NECK: Trachea midline, supple, right IJ Centralline LUNGS: decreased breath sounds, bilateral crackles HEART: Regular rate and rhythm, S1, S2 without murmur, rub or gallop. ABDOMEN: obese,Soft, nontender, nondistended, normoactive bowel sounds, no guarding, no rebound, no hepatosplenomegaly, no masses. EXTREMITIES: 2+ pulses, warm, well-perfused, no edema. NEUROLOGICAL: Cranial nerves II through XII grossly intact. Normal speech, gait not observed. PSYCH: Normal mood, normal affect. SKIN: Warm, dry, normal turgor, no rashes or lesions noted Laboratory Results - last 24 hr 05/08/17 05/08/17 05/08/17 20:50 20:50 20:50 WBC 28.5 H D Corrected WBC (auto) 25.00 RBC 2.84 L Hgb 8.9 L D Hct 26.4 L MCV 93.0 MCH 31.3 MCHC 33.7 RDW 13.7 Plt Count 382 D MPV 9.7 Total Counted 100 Neutrophils % No Result Required. Neutrophils % (Manual) 88.0 H Band Neutrophils % 3.0 Lymphocytes % No Result Required. Lymphocytes % (Manual) 6.0 L Monocytes % Monocytes % (Manual) 2 L Eosinophils % Eosinophils % (Manual) 1.0 Basophils % Nucleated RBC % 14 H* Platelet Estimate Adequate Platelet Comment PT with INR 63.80 H INR 5.65 H* D PTT (Actin FS) 40.8 H D VBG pH POC VBG pCO2 POC VBG pO2 Mixed VBG HCO3 Sodium 140 Potassium 6.0 H Chloride 106 Carbon Dioxide 22 Anion Gap 12 BUN 81 H D Creatinine 5.0 H D Creat Clearance w eGFR 8.19 Random Glucose 137 H D Lactic Acid Calcium 9.2 Magnesium Total Bilirubin 0.8 D AST 13 L D ALT 20 D Alkaline Phosphatase 56 Creatine Kinase 103 Troponin I 0.06 H B-Natriuretic Peptide Total Protein 6.4 Albumin 2.1 L Urine Color Urine Appearance Urine pH Ur Specific Harlan Urine Protein Urine Glucose (UA) Urine Ketones Urine Blood Urine Nitrite Urine Bilirubin Urine Urobilinogen Ur Random Sodium Ur Random Potassium Ur Random Chloride Urine Creatinine Blood Type Antibody Screen Prewarmed Antibody Srcn 05/08/17 05/08/17 05/08/17 20:50 20:50 20:50 WBC Corrected WBC (auto) RBC Hgb Hct MCV MCH MCHC RDW Plt Count MPV Total Counted Neutrophils % Neutrophils % (Manual) Band Neutrophils % Lymphocytes % Lymphocytes % (Manual) Monocytes % Monocytes % (Manual) Eosinophils % Eosinophils % (Manual) Basophils % Nucleated RBC % Platelet Estimate Platelet Comment PT with INR INR PTT (Actin FS) VBG pH POC VBG pCO2 POC VBG pO2 Mixed VBG HCO3 Sodium Potassium Chloride Carbon Dioxide Anion Gap BUN Creatinine Creat Clearance w eGFR Random Glucose Lactic Acid 3.8 H* Calcium Magnesium Total Bilirubin AST ALT Alkaline Phosphatase Creatine Kinase Troponin I B-Natriuretic Peptide 38542.26 H Total Protein Albumin Urine Color Urine Appearance Urine pH Ur Specific Harlan Urine Protein Urine Glucose (UA) Urine Ketones Urine Blood Urine Nitrite Urine Bilirubin Urine Urobilinogen Ur Random Sodium Ur Random Potassium Ur Random Chloride Urine Creatinine Blood Type O POSITIVE Antibody Screen Negative Prewarmed Antibody Srcn Negative 05/08/17 05/08/17 05/08/17 20:50 20:59 21:10 WBC Corrected WBC (auto) RBC Hgb Hct MCV MCH MCHC RDW Plt Count MPV Total Counted Neutrophils % Neutrophils % (Manual) Band Neutrophils % Lymphocytes % Lymphocytes % (Manual) Monocytes % Monocytes % (Manual) Eosinophils % Eosinophils % (Manual) Basophils % Nucleated RBC % Platelet Estimate Platelet Comment PT with INR INR PTT (Actin FS) VBG pH 7.34 POC VBG pCO2 40.8 POC VBG pO2 50.1 H Mixed VBG HCO3 21.6 Sodium Potassium Chloride Carbon Dioxide Anion Gap BUN Creatinine Creat Clearance w eGFR Random Glucose Lactic Acid Calcium Magnesium 2.0 Total Bilirubin AST ALT Alkaline Phosphatase Creatine Kinase Troponin I 0.06 H B-Natriuretic Peptide Total Protein Albumin Urine Color Urine Appearance Urine pH Ur Specific Harlan Urine Protein Urine Glucose (UA) Urine Ketones Urine Blood Urine Nitrite Urine Bilirubin Urine Urobilinogen Ur Random Sodium Ur Random Potassium Ur Random Chloride Urine Creatinine Blood Type Antibody Screen Prewarmed Antibody Srcn 05/08/17 05/09/17 05/09/17 21:29 04:14 04:14 WBC 24.0 H Corrected WBC (auto) RBC 3.09 L Hgb 8.7 L Hct 26.2 L MCV 84.8 D MCH 28.1 D MCHC 33.2 RDW 13.6 Plt Count 331 MPV 9.7 Total Counted Neutrophils % 86.5 H D Neutrophils % (Manual) Band Neutrophils % Lymphocytes % 4.6 L D Lymphocytes % (Manual) Monocytes % 3.2 L Monocytes % (Manual) Eosinophils % 5.4 H Eosinophils % (Manual) Basophils % 0.3 Nucleated RBC % Platelet Estimate Platelet Comment PT with INR 54.40 H INR 4.81 H* PTT (Actin FS) 22.2 L D VBG pH POC VBG pCO2 POC VBG pO2 Mixed VBG HCO3 Sodium Potassium Chloride Carbon Dioxide Anion Gap BUN Creatinine Creat Clearance w eGFR Random Glucose Lactic Acid Calcium Magnesium Total Bilirubin AST ALT Alkaline Phosphatase Creatine Kinase Troponin I B-Natriuretic Peptide Total Protein Albumin Urine Color Bianca Urine Appearance Cloudy Urine pH 5.0 Ur Specific Harlan 1.015 Urine Protein Negative Urine Glucose (UA) Negative Urine Ketones Negative Urine Blood Negative Urine Nitrite Negative Urine Bilirubin Negative Urine Urobilinogen Negative Ur Random Sodium Ur Random Potassium Ur Random Chloride Urine Creatinine Blood Type Antibody Screen Prewarmed Antibody Srcn 05/09/17 05/09/17 05/09/17 04:14 04:14 08:00 WBC Corrected WBC (auto) RBC Hgb Hct MCV MCH MCHC RDW Plt Count MPV Total Counted Neutrophils % Neutrophils % (Manual) Band Neutrophils % Lymphocytes % Lymphocytes % (Manual) Monocytes % Monocytes % (Manual) Eosinophils % Eosinophils % (Manual) Basophils % Nucleated RBC % Platelet Estimate Platelet Comment PT with INR INR PTT (Actin FS) VBG pH POC VBG pCO2 POC VBG pO2 Mixed VBG HCO3 Sodium 143 Potassium 5.3 H Chloride 110 H Carbon Dioxide 23 Anion Gap 10 BUN 85 H Creatinine 4.7 H Creat Clearance w eGFR 8.79 Random Glucose 122 H Lactic Acid 1.9 0.9 Calcium 9.0 Magnesium Total Bilirubin 0.8 AST 15 ALT 19 Alkaline Phosphatase 46 Creatine Kinase Troponin I B-Natriuretic Peptide Total Protein 5.8 L Albumin 1.9 L Urine Color Urine Appearance Urine pH Ur Specific Harlan Urine Protein Urine Glucose (UA) Urine Ketones Urine Blood Urine Nitrite Urine Bilirubin Urine Urobilinogen Ur Random Sodium Ur Random Potassium Ur Random Chloride Urine Creatinine Blood Type Antibody Screen Prewarmed Antibody Srcn 05/09/17 05/09/17 08:00 09:15 WBC Corrected WBC (auto) RBC Hgb Hct MCV MCH MCHC RDW Plt Count MPV Total Counted Neutrophils % Neutrophils % (Manual) Band Neutrophils % Lymphocytes % Lymphocytes % (Manual) Monocytes % Monocytes % (Manual) Eosinophils % Eosinophils % (Manual) Basophils % Nucleated RBC % Platelet Estimate Platelet Comment PT with INR INR PTT (Actin FS) VBG pH POC VBG pCO2 POC VBG pO2 Mixed VBG HCO3 Sodium Potassium Chloride Carbon Dioxide Anion Gap BUN Creatinine Creat Clearance w eGFR Random Glucose Lactic Acid Calcium Magnesium Total Bilirubin AST ALT Alkaline Phosphatase Creatine Kinase Troponin I 0.05 B-Natriuretic Peptide Total Protein Albumin Urine Color Urine Appearance Urine pH Ur Specific Harlan Urine Protein Urine Glucose (UA) Urine Ketones Urine Blood Urine Nitrite Urine Bilirubin Urine Urobilinogen Ur Random Sodium 7 Ur Random Potassium 16.6 Ur Random Chloride < 10 Urine Creatinine 68.0 Blood Type Antibody Screen Prewarmed Antibody Srcn Active Medications Generic Name Dose Route Start Last Admin Trade Name Freq PRN Reason Stop Dose Admin Norepinephrine Bitartrate 4, 500 mls @ 37.5 mls/hr 05/09/17 05:45 05/09/17 14 :13 000 mcg/ Dextrose IV 15 mcg/min TITR MALIK 112.5 mls/hr Protocol Titration 5 MCG/MIN Sodium Chloride 1,000 mls @ 100 mls/hr 05/09/17 10:15 05/09/17 10:47 Normal Saline - IV 100 mls/hr ASDIR MALIK Administration Meropenem 500 mg in 10 mls @ 120 mls/hr 05/09/17 12:30 Merrem (Restricted To Id) - IVPUSH BID MALIK Morphine Sulfate 2 mg 05/09/17 05:30 Morphine Sulfate IVPUSH Q3H PRN PAIN Pantoprazole Sodium 40 mg 05/09/17 05:30 05/09/17 10:50 Protonix - PO Not Given DAILY MALIK ASSESSMENT/PLAN: 86 year old female from senior care, presented with fever, lethargy; admitted for sepsis secondary to pneumonia. Past medical history of atrial fibrillation, mild CKD and recent hospitalization for UTI Septic Shock due to hospital acquired pneumonia EMANUEL Toxic Metabolic Encephalopathy Obesity AFib Anemia hyperkalemia -cont IVF; lactic acid trend down -IV antibiotics -titrate levophed -I/O -BMP; trend K; -renal eval including electrolytes, US -maintain CVP 10-12 -appreciate ID/Renal -stablel to transfer to tele Problem List - Problems (1) Healthcare-associated pneumonia Code(s): J18.9 - PNEUMONIA, UNSPECIFIED ORGANISM (2) Sepsis Code(s): A41.9 - SEPSIS, UNSPECIFIED ORGANISM (3) Atrial fibrillation with RVR Code(s): I48.91 - UNSPECIFIED ATRIAL FIBRILLATION (4) CHF (NYHA class II, ACC/AHA stage C) Code(s): I50.9 - HEART FAILURE, UNSPECIFIED (5) CKD stage G3b/A3, GFR 30-44 and albumin creatinine ratio >300 mg/g Code(s): N18.3 - CHRONIC KIDNEY DISEASE, STAGE 3 (MODERATE) (6) COPD mixed type Code(s): J44.9 - CHRONIC OBSTRUCTIVE PULMONARY DISEASE, UNSPECIFIED (7) Diastolic CHF Code(s): I50.30 - UNSPECIFIED DIASTOLIC (CONGESTIVE) HEART FAILURE Qualifiers: Congestive heart failure chronicity: acute Qualified Code(s): I50.31 - Acute diastolic (congestive) heart failure (8) Hyperkalemia Code(s): E87.5 - HYPERKALEMIA Visit type - Emergency Visit Emergency Visit: Yes ED Registration Date: 05/08/17 Care time: The patient presented to the Emergency Department on the above date and was hospitalized for further evaluation of their emergent condition. - New Patient This patient is new to me today: Yes Date on this admission: 05/09/17 - Critical Care Critical Care patient: Yes Total Critical Care Time (in minutes): 35 Critical Care Statement: The care of this patient involved high complexity decision making to prevent further life threatening deterioration of the patient 's condition and/or to evaluate & treat vital organ system(s) failure or risk of failure.
[2017-05-09] MEDS ORDERED: PT OWN MED DRAWER 7, Y5N ONE ×3 (16:09→22:30)
[2017-05-09] MEDS: MEROPENEM 500 MG PUSH 500 MG/10 ML DISP.SYRIN IVPUSH SCH ×2 (16:16→22:34)
[2017-05-09 17:52] LABS: URINE LEUK ESTERASE Negative (NEGATIVE)
[2017-05-09 19:00] LABS: ANION GAP 10 (8-16); CALCIUM 8.3 mg/dL (8.5-10.1); CO2 21 mmol/L (21-32); CREATININE 3.7 mg/dL (0.55-1.02); GLUCOSE,RANDOM 83 mg/dL (74-106)
[2017-05-09] MEDS: morphine SULFATE 4 MG/ML VIAL IVPUSH PRN (22:46)
[2017-05-10] MEDS: NOREPINEPHRINE BITARTRATE 4,000 MCG in DEXTROSE 5%-WATER - 496 ML IV SCH (06:14)
[2017-05-10] MEDS: SODIUM CHLORIDE 1,000 ML IV SCH ×2 (06:16→09:04)
[2017-05-10 06:58] LABS: BASOPHIL 0.4 % (0-2.0); EOSINOPHIL 14.9 % (0-4.5); MCH 28.8 pg (25.7-33.7); MCHC 34.2 g/dl (32.0-36.0); MEAN CELL VOLUME 84.3 fl (80-96); MEAN PLT VOLUME 8.8 fl (7.5-11.1); NEUTROPHILS 71.7 % (42.8-82.8); PLATELET COUNT 283 K/MM3 (134-434); RDW 14.1 % (11.6-15.6); WHITE BLOOD COUNT 25.8 K/mm3 (4.0-10.0)
[2017-05-10 07:40] LABS: ALBUMIN 1.7 g/dl (3.4-5.0); ANION GAP 7 (8-16); CO2 22 mmol/L (21-32); GLUCOSE,RANDOM 80 mg/dL (74-106); MAGNESIUM 1.8 mg/dL (1.8-2.4)
[2017-05-10 07:50] LABS: FREE T4 1.42 ng/dl (0.76-1.46); TROPONIN I 0.05 ng/ml (0.00-0.05)
[2017-05-10 07:52] LABS: ALK PHOS 40 U/L (45-117); BILIRUBIN,TOTAL 1.1 mg/dL (0.2-1.0); CREATININE 3.2 mg/dL (0.55-1.02); PHOSPHOROUS 3.5 mg/dL (2.5-4.9); SGOT/AST 10 U/L (15-37); SGPT/ALT 14 U/L (12-78); THYROID STIMULATING HORMONE 1.71 uIU/ml (0.358-3.74); TOT PROT 5.1 g/dl (6.4-8.2)
[2017-05-10] MEDS ORDERED: PT OWN MED DRAWER 7, Y5N ONE ×2 (08:57→20:40)
[2017-05-10] MEDS: PANTOPRAZOLE 40 MG TABLET (FP) PO SCH (09:04)
[2017-05-10] MEDS: guaiFENesin/D-METHORPHAN HB 10 ML UNIT-DOSE CUPS PO PRN ×3 (09:05→21:11)
--- NOTE | 2017-05-10 09:08 | PN ---
Progress Note (short form) - Note Progress Note: Pulm/CCM Pt seen and examined in ICU SUBJECTIVE: -no acute changes, afebrile -weaned off of vasopressor support -Cr downtrending -asking to eat Vital Signs Temp 97.8 F 05/09/17 22:00 Pulse 80 05/10/17 06:00 Resp 22 05/10/17 06:00 BP 107/69 05/10/17 06:00 Pulse Ox 97 05/09/17 21:00 Intake & Output 05/09/17 05/09/17 05/10/17 11:59 23:59 11:59 Intake Total 2163 2043 560 Output Total 827 950 3659 Balance 1863 1293 -440 Weight 103.328 kg 103.328 kg 106.821 kg Intake: IV 3 1933 560 Levophed - 4,000 Mcg In 113 433 D5w - 496 ml @ 5 MCG/MIN 37.5 mls/hr IV TITR MALIK Rx#:[id number] NS 1L bolus 2000 Normal Saline - 1,000 ml 1500 @ 100 mls/hr IV ASDIR MALIK Rx#:[id number] Normal Saline - 1,000 ml 560 @ 83 mls/hr IV ASDIR MALIK Rx#:[id number] IVPB 50 110 Output: Urine 644 350 8516 Gibbons [phone] Other: Voiding Method Indwelling Catheter Indwelling Catheter Bowel Movement No Yes # Bowel Movements 1 1 Height 5 ft 7 in 5 ft 7 in Body Mass Index (BMI) 35.6 35.6 Weight Measurement Method Built in [facility] Built in [facility] Active Medications Acetaminophen (Tylenol -) 650 mg PO Q6H PRN PRN Reason: FEVER OR PAIN Guaifenesin (Robitussin Dm -) 10 ml PO Q4H PRN PRN Reason: COUGH Last Admin: 05/10/17 09:05 Dose: 10 ml Meropenem (Merrem (Restricted To Id) -) 500 mg in 10 mls @ 120 mls/hr IVPUSH BID MALIK Last Admin: 05/09/17 22:34 Dose: 120 mls/hr Sodium Chloride (Normal Saline -) 1,000 mls @ 83 mls/hr IV ASDIR MALIK Last Admin: 05/10/17 09:04 Dose: 83 mls/hr Morphine Sulfate (Morphine Sulfate) 2 mg IVPUSH Q3H PRN PRN Reason: PAIN Last Admin: 05/09/17 22:46 Dose: 2 mg Pantoprazole Sodium (Protonix -) 40 mg PO DAILY MALIK Last Admin: 05/10/17 09:04 Dose: 40 mg GENERAL: lethargic but arousable, mildly tachypneic on VM O2 HEAD: No signs of trauma ENT: dry MM NECK: No JVD, R IJ TLC LUNGS: BS diminished at the L base HEART: irregularly irregular ABDOMEN: Soft, Mild tenderness in the lower abdomen/suprapubic area, (+) BS, obese, No guarding, no rebound. EXTREMITIES: Normal range of motion, no edema. No clubbing or cyanosis. No cords, erythema, or tenderness NEUROLOGICAL: Non-focal SKIN: Warm, Dry, normal turgor, no rashes or lesions noted. CBCD WBC 25.8 K/mm3 (4.0-10.0) H 05/10/17 06:00 RBC 2.77 M/mm3 (3.60-5.2) L 05/10/17 06:00 Hgb 8.0 GM/dL (10.7-15.3) L 05/10/17 06:00 Hct 23.4 % (32.4-45.2) L 05/10/17 06:00 MCV 84.3 fl (80-96) 05/10/17 06:00 MCHC 34.2 g/dl (32.0-36.0) 05/10/17 06:00 RDW 14.1 % (11.6-15.6) 05/10/17 06:00 Plt Count 283 K/MM3 (134-434) 05/10/17 06:00 MPV 8.8 fl (7.5-11.1) 05/10/17 06:00 CMP Sodium 145 mmol/L (136-145) 05/10/17 06:00 Potassium 5.1 mmol/L (3.5-5.1) 05/10/17 06:00 Chloride 116 mmol/L (98-107) H 05/10/17 06:00 Carbon Dioxide 22 mmol/L (21-32) 05/10/17 06:00 Anion Gap 7 (8-16) L 05/10/17 06:00 BUN 78 mg/dL (7-18) H 05/10/17 06:00 Creatinine 3.2 mg/dL (0.55-1.02) H 05/10/17 06:00 Creat Clearance w eGFR 13.70 (>60) 05/10/17 06:00 Calcium 8.0 mg/dL (8.5-10.1) L 05/10/17 06:00 Total Bilirubin 1.1 mg/dL (0.2-1.0) H D 05/10/17 06:00 AST 10 U/L (15-37) L D 05/10/17 06:00 ALT 14 U/L (12-78) D 05/10/17 06:00 Alkaline Phosphatase 40 U/L (45-117) L 05/10/17 06:00 Total Protein 5.1 g/dl (6.4-8.2) L 05/10/17 06:00 Albumin 1.7 g/dl (3.4-5.0) L 05/10/17 06:00 Microbiology 05/08/17 20:50 Blood - Peripheral Venous Blood Culture - Preliminary NO GROWTH OBTAINED AFTER 24 HOURS, INCUBATION TO CONTINUE FOR 4 DAYS. 05/08/17 20:52 Blood - Peripheral Venous Blood Culture - Preliminary NO GROWTH OBTAINED AFTER 24 HOURS, INCUBATION TO CONTINUE FOR 4 DAYS. IMP: Septic Shock due to a suspected tract source EMANUEL Toxic Metabolic Encephalopathy (?) PNA Obesity AFib Anemia Coagulopathy ABX per ID Follow cultures O2 as needed to maintain saturation Strict I&O Follow daily INR & monitor for bleeding Follow BMP / Renal evaluation, no indication for SCIENCE JOB TITLES, Cr down trending, making urine GI prophylaxis Decolonization ICU monitoring OK for med/surg Arcenio Llanes ACNP [id number]
--- NOTE | 2017-05-10 09:47 | PN ---
Progress Note (short form) - Note Progress Note: Renal Follow up for EMANUEL Pt seen and examine at the bedside awake and alert complains of b/l shoulder discomfort no N/V/D no chest pain no sob Vital Signs Temperature 98.2 F 05/10/17 08:00 Pulse Rate 86 05/10/17 08:00 Respiratory Rate 25 H 05/10/17 08:00 Blood Pressure 107/59 05/10/17 08:00 O2 Sat by Pulse Oximetry (%) 96 05/10/17 09:00 Intake & Output 05/07/17 05/08/17 05/09/17 05/10/17 23:59 23:59 23:59 23:59 Intake Total 4206 560 Output Total 1050 1000 Balance 3156 -440 Weight 110.677 kg 103.328 kg 106.821 kg NAD awake and alert RRR CTA (anterior exam) No LE edema CBC, BMP 05/10/17 06:00 05/10/17 06:00 Current Medications Acetaminophen (Tylenol -) 650 mg PO Q6H PRN PRN Reason: FEVER OR PAIN Guaifenesin (Robitussin Dm -) 10 ml PO Q4H PRN PRN Reason: COUGH Last Admin: 05/10/17 09:05 Dose: 10 ml Meropenem (Merrem (Restricted To Id) -) 500 mg in 10 mls @ 120 mls/hr IVPUSH BID [facility] Last Admin: 05/09/17 22:34 Dose: 120 mls/hr Sodium Chloride (Normal Saline -) 1,000 mls @ 83 mls/hr IV ASDIR MALIK Last Admin: 05/10/17 09:04 Dose: 83 mls/hr Morphine Sulfate (Morphine Sulfate) 2 mg IVPUSH Q3H PRN PRN Reason: PAIN Last Admin: 05/09/17 22:46 Dose: 2 mg Pantoprazole Sodium (Protonix -) 40 mg PO DAILY [facility] Last Admin: 05/10/17 09:04 Dose: 40 mg 86 year old woman with PMhx of Afib, Arrythmia s/p Cardioversion, CAD, Hypertension, HLD, COPD, Ischemic Colitis, mild CKD (Cr 1.6-1.8 in the EMR) who presented with SOB and found to have Sepsis secondary to PNA with EMANUEL with Cr of 5. #Acute on Chronic Renal Insufficiency in setting fo Sepsis/PNA with preserved tubular function secondary to hemadynamic injury from Sepsis + ARB Urine studies show low FeNa and thus preserved tubular function Renal function slighly improved today and pt is non-oliguric continue supportive care and trend BUN/Cr #Sepsis syndrome with PNA ICU care Abx as per ID O2 as needed #Hx of Hypertension, now hypotensive Keep MAP > 65 hold antihypertensives #Anemia/Eiosinophilia Transfuse as per icu protocol f/u urine eios #Mild Hyperkalemia likely due to decreased distal delivery of Na in setting of hypovolemia trend for now no need for kayexalate #Lactic acidosis, now improved continue fluids keep MAP > 65 Thank you Will follow Alex Diaz DO
[2017-05-10] MEDS: MEROPENEM 500 MG PUSH 500 MG/10 ML DISP.SYRIN IVPUSH SCH ×2 (09:57→21:04)
[2017-05-10] MEDS: ACETAMINOPHEN 325 MG TABLET (FP) PO PRN ×2 (10:09→19:14)
--- NOTE | 2017-05-10 14:34 | PN ---
Progress Note, Physician Chief Complaint: Feeling weak c/o mild SOB History of Present Illness: 86 yrs old f multiple co-morbidities including, HTN, sHF, Afib s/p cardioversion , CKD stage 3, recently discharged to [place] readmitted with worsening renal function, pneumonia and sepsis - Current Medication List Current Medications: Active Medications Acetaminophen (Tylenol -) 650 mg PO Q6H PRN PRN Reason: FEVER OR PAIN Last Admin: 05/10/17 10:09 Dose: 650 mg Guaifenesin (Robitussin Dm -) 10 ml PO Q4H PRN PRN Reason: COUGH Last Admin: 05/10/17 09:05 Dose: 10 ml Meropenem (Merrem (Restricted To Id) -) 500 mg in 10 mls @ 120 mls/hr IVPUSH BID MALIK Last Admin: 05/10/17 09:57 Dose: 120 mls/hr Sodium Chloride (Normal Saline -) 1,000 mls @ 83 mls/hr IV ASDIR MALIK Last Admin: 05/10/17 09:04 Dose: 83 mls/hr Morphine Sulfate (Morphine Sulfate) 2 mg IVPUSH Q3H PRN PRN Reason: PAIN Last Admin: 05/09/17 22:46 Dose: 2 mg Pantoprazole Sodium (Protonix -) 40 mg PO DAILY [facility] Last Admin: 05/10/17 09:04 Dose: 40 mg - Objective Vital Signs: Vital Signs Temperature 98.4 F 05/10/17 11:51 Pulse Rate 98 H 05/10/17 13:58 Respiratory Rate 22 05/10/17 13:58 Blood Pressure 102/74 05/10/17 13:58 O2 Sat by Pulse Oximetry (%) 95 05/10/17 10:26 Elderly F not in acute distress no c/o chest pain or SOB HEENT; Mm moist, no anemia, PERRLA EOMI NECK: No JVD, No Bruit CHEST: B/L basal crepts CVS: s1S2 ir no m/g/r ABD: no distention, non tender Bs + EXT; ++ edema feet, no calf tenderness OUTPATIENT PSYCHIATRIST: AOX3 non focal Labs: CBC, BMP 05/10/17 06:00 05/10/17 06:00 INR, PTT INR 4.81 (0.82-1.09) H* 05/09/17 04:14 Problem List - Problems (1) Healthcare-associated pneumonia Assessment/Plan: So falr all cultures are negative, on Meropenam F/U sputum, Blood and urine culture Code(s): J18.9 - PNEUMONIA, UNSPECIFIED ORGANISM (2) Sepsis Assessment/Plan: Due to UTI or Pneumonia Code(s): A41.9 - SEPSIS, UNSPECIFIED ORGANISM (3) Altered mental status Assessment/Plan: Due to sepsis and Metabolic encephalopathy Code(s): R41.82 - ALTERED MENTAL STATUS, UNSPECIFIED (4) COPD mixed type Assessment/Plan: Cont current Nebs treatment saturating well Code(s): J44.9 - CHRONIC OBSTRUCTIVE PULMONARY DISEASE, UNSPECIFIED (5) CHF (NYHA class II, ACC/AHA stage C) Assessment/Plan: Patient has systolic HF cont current mangement Code(s): I50.9 - HEART FAILURE, UNSPECIFIED (6) Persistent atrial fibrillation Assessment/Plan: Patient has persistent Afib rate is around 100 F/U Cradiology recommondations Code(s): I48.1 - PERSISTENT ATRIAL FIBRILLATION (7) Renal function impairment Assessment/Plan: F/U Renal recommendations and BMP Code(s): N28.9 - DISORDER OF KIDNEY AND URETER, UNSPECIFIED
--- NOTE | 2017-05-10 16:30 | PN ---
Progress Note, Physician History of Present Illness: patient stable feeling much better still oesphagus hurting post procedure - Current Medication List Current Medications: Active Medications Acetaminophen (Tylenol -) 650 mg PO Q6H PRN PRN Reason: FEVER OR PAIN Last Admin: 05/10/17 10:09 Dose: 650 mg Guaifenesin (Robitussin Dm -) 10 ml PO Q4H PRN PRN Reason: COUGH Last Admin: 05/10/17 09:05 Dose: 10 ml Meropenem (Merrem (Restricted To Id) -) 500 mg in 10 mls @ 120 mls/hr IVPUSH BID MALIK Last Admin: 05/10/17 09:57 Dose: 120 mls/hr Sodium Chloride (Normal Saline -) 1,000 mls @ 83 mls/hr IV ASDIR MALIK Last Admin: 05/10/17 09:04 Dose: 83 mls/hr Morphine Sulfate (Morphine Sulfate) 2 mg IVPUSH Q3H PRN PRN Reason: PAIN Last Admin: 05/09/17 22:46 Dose: 2 mg Pantoprazole Sodium (Protonix -) 40 mg PO DAILY [facility] Last Admin: 05/10/17 09:04 Dose: 40 mg - Objective Vital Signs: Vital Signs Temperature 98.9 F 05/10/17 13:58 Pulse Rate 98 H 05/10/17 13:58 Respiratory Rate 22 05/10/17 13:58 Blood Pressure 102/74 05/10/17 13:58 O2 Sat by Pulse Oximetry (%) 95 05/10/17 10:26 Constitutional: Yes: Calm, Mild Distress, Obese Cardiovascular: Yes: Pulse Irregular, S1, S2 Respiratory: Yes: Regular, Poor Air Entry, Rhonchi Gastrointestinal: Yes: Normal Bowel Sounds, Soft Musculoskeletal: Yes: WNL Extremities: Yes: WNL Neurological: Yes: Alert, Oriented Psychiatric: Yes: Alert, Oriented Labs: CBC, BMP 05/10/17 06:00 05/10/17 06:00 INR, PTT INR 4.81 (0.82-1.09) H* 05/09/17 04:14 Assessment/Plan d Septic Shock EMANUEL Toxic Metabolic Encephalopathy PNA Obesity AFib Anemia Coagulopathy leukocytosis plan will continue meropenam resp support as per cardio close watch on heart rate rest as per icu cc time 40 min
--- NOTE | 2017-05-10 16:40 | PN ---
Progress Note (short form) - Note Progress Note: 86 year female AA admitted with SOB, mental cofusion, and diagnosed to have septic shock associated with acute on CKD. H/o COPD, bronchial asthma HTN, CAD, Chronic UTI. Patient is awake and alert but lethargic. No chest pain or discomfort, no SOB, in atrial fib, with controlled ventricular response. Off Levophed. Active Medications Acetaminophen (Tylenol -) 650 mg PO Q6H PRN PRN Reason: FEVER OR PAIN Last Admin: 05/10/17 10:09 Dose: 650 mg Guaifenesin (Robitussin Dm -) 10 ml PO Q4H PRN PRN Reason: COUGH Last Admin: 05/10/17 09:05 Dose: 10 ml Meropenem (Merrem (Restricted To Id) -) 500 mg in 10 mls @ 120 mls/hr IVPUSH BID [facility] Last Admin: 05/10/17 09:57 Dose: 120 mls/hr Sodium Chloride (Normal Saline -) 1,000 mls @ 83 mls/hr IV ASDIR [facility] Last Admin: 05/10/17 09:04 Dose: 83 mls/hr Morphine Sulfate (Morphine Sulfate) 2 mg IVPUSH Q3H PRN PRN Reason: PAIN Last Admin: 05/09/17 22:46 Dose: 2 mg Pantoprazole Sodium (Protonix -) 40 mg PO DAILY [facility] Last Admin: 05/10/17 09:04 Dose: 40 mg 86 year old female in no acute distress. Last Vital Signs Temp Pulse Resp BP Pulse Ox 98.9 F 98 H irregularly irregular. 22 102/74 95 05/10/17 13:58 05/10/17 13:58 05/10/17 13:58 05/10/17 13:58 05/10/17 10:26 Intake & Output 05/07/17 05/08/17 05/09/17 05/10/17 23:59 23:59 23:59 23:59 Intake Total 4206 560 Output Total 1050 1700 Balance 3156 -1140 Weight 244 lb 227 lb 12.8 oz 235 lb 8 oz NECK: Supple, no JVD, -ve HJR, carotids 2+ and equal, No bruits heard. HEART: PMI 5th ICS, distant sounds, no murmur or gallops heard. LUNGS; Clear o auscultation. ABDOMEN: Soft and nontender, no organomegaly apreciated. EXTREMITIES: no calf tenderness or dependent edema. CBC, BMP 05/10/17 06:00 05/10/17 06:00 A: 1. Septic shock, resolved. 2. Chronic UTI. 3. COPD. 4. CAD, stable angina. 5. Paroxysmal atrial fib. with controlled ventricular response. 6. Acute on CKD. 7. Anemia. 8. Dehydration. 1. Volume expanation in progress. 2. Close F/u up of anemia. 3. May need packed cells. 4. F/U EKG. Prognosis: Guarded.
[2017-05-11] MEDS ORDERED: METOPROLOL TARTRATE 5 MG/5 ML VIAL IVPUSH PRN (00:06)
[2017-05-11] MEDS: morphine SULFATE 4 MG/ML VIAL IVPUSH PRN (01:16)
[2017-05-11] MEDS ORDERED: HEMOQUE CONTROL SOLUTION ONE (02:13)
[2017-05-11] MEDS ORDERED: METOPROLOL TARTRATE 5 MG/5 ML VIAL ONE (04:42)
[2017-05-11] MEDS ORDERED: METOPROLOL TARTRATE 5 MG/5 ML VIAL IVPUSH ONE (04:45)
[2017-05-11 08:04] LABS: MCH 28.3 pg (25.7-33.7); MCHC 32.8 g/dl (32.0-36.0); MEAN CELL VOLUME 86.1 fl (80-96); PLATELET COUNT 296 K/MM3 (134-434); RDW 14.2 % (11.6-15.6)
[2017-05-11 08:15] LABS: ANION GAP 9 (8-16); CO2 20 mmol/L (21-32); CREATININE 2.4 mg/dL (0.55-1.02); GLUCOSE,RANDOM 91 mg/dL (74-106)
--- NOTE | 2017-05-11 08:28 | PN ---
Progress Note (short form) - Note Progress Note: Renal Follow up for EMANUEL Pt seen and examine in the ICU awake and alert on NC O2 no overnight events on IVF making urine reports some cough and sob no chest pain, abd pain, N/V/D Vital Signs Temperature 101.0 F H 05/11/17 07:22 Pulse Rate 92 H 05/11/17 07:22 Respiratory Rate 28 H 05/11/17 07:22 Blood Pressure 119/61 05/11/17 06:00 O2 Sat by Pulse Oximetry (%) 94 L 05/10/17 20:02 Intake & Output 05/08/17 05/09/17 05/10/17 05/11/17 23:59 23:59 23:59 23:59 Intake Total 4206 1874 996 Output Total 1050 1700 900 Balance 3156 174 96 Weight 110.677 kg 103.328 kg 106.821 kg 107.139 kg NAD awake and alert RRR CTA (anterior exam) No LE edema CBC, BMP 05/11/17 07:30 Current Medications Acetaminophen (Tylenol -) 650 mg PO Q6H PRN PRN Reason: FEVER OR PAIN Last Admin: 05/10/17 19:14 Dose: 650 mg Guaifenesin (Robitussin Dm -) 10 ml PO Q4H PRN PRN Reason: COUGH Last Admin: 05/10/17 21:11 Dose: 10 ml Meropenem (Merrem (Restricted To Id) -) 500 mg in 10 mls @ 120 mls/hr IVPUSH BID [facility] Last Admin: 05/10/17 21:04 Dose: 120 mls/hr Sodium Chloride (Normal Saline -) 1,000 mls @ 83 mls/hr IV ASDIR [facility] Last Admin: 05/11/17 00:00 Dose: 83 mls/hr Lidocaine/Aluminum/Magnesium/Simeth (Magic Mouthwash *Sjr Formula* -) 5 ml MM Q6HPO [facility] Morphine Sulfate (Morphine Sulfate) 2 mg IVPUSH Q3H PRN PRN Reason: PAIN Last Admin: 05/11/17 01:16 Dose: 2 mg Nystatin (Nystatin Oral Suspension -) 500,000 units PO Q6HPO [facility] Pantoprazole Sodium (Protonix -) 40 mg PO DAILY [facility] Last Admin: 05/10/17 09:04 Dose: 40 mg 86 year old woman with PMhx of Afib, Arrythmia s/p Cardioversion, CAD, Hypertension, HLD, COPD, Ischemic Colitis, mild CKD (Cr 1.6-1.8 in the EMR) who presented with SOB and found to have Sepsis secondary to PNA with EMANUEL with Cr of 5. #Acute on Chronic Renal Insufficiency in setting fo Sepsis/PNA with preserved tubular function secondary to hemadynamic injury from Sepsis + ARB todays labs show further improvement in renal function continue IVF, if CXR shows effusions or central congestion can decreae rate keep MAP > 65 CVP goal 8-10 no MANJU/ARBs/NSAID/Fleets trend BUN/Cr #Sepsis syndrome with PNA ICU care Abx as per ID O2 as needed #Hx of Hypertension, now hypotensive Keep MAP > 65 hold antihypertensives #Anemia/Eiosinophilia Transfuse as per icu protocol f/u urine eios #Hypernatremia continue isotonic saline for now given sepsis oral water intake as tolerated #Lactic acidosis, now improved continue fluids keep MAP > 65 Thank you Will follow Alex Diaz DO
[2017-05-11 08:39] LABS: INR 1.04 (0.82-1.09); PROTHROMBIN TIME (PATIENT) 11.8 SEC (9.98-11.88)
[2017-05-11] MEDS: ACETAMINOPHEN 650 MG/20.3 ML ORAL SOLUTION (CUPS) PO PRN (08:39)
[2017-05-11] MEDS: NYSTATIN 500,000 UNITS/5 ML SUSPENSION PO SCH ×3 (09:06→17:28)
[2017-05-11 09:07] LABS: WHITE BLOOD COUNT 27.4 K/mm3 (4.0-10.0)
[2017-05-11] MEDS ORDERED: PT OWN MED DRAWER 7, Y5N ONE ×2 (10:06→21:11)
[2017-05-11] MEDS: MAG HYDROX/ALH/SMC/DPHA/LIDO 240 ML MOUTHWASH MM SCH ×3 (10:10→17:28)
[2017-05-11] MEDS: PANTOPRAZOLE 40 MG TABLET (FP) PO SCH (10:16)
[2017-05-11] MEDS: MEROPENEM 500 MG PUSH 500 MG/10 ML DISP.SYRIN IVPUSH SCH ×2 (10:16→21:19)
--- NOTE | 2017-05-11 10:41 | CONS ---
DATE OF CONSULTATION: DATE OF DICTATION: 05/09/2017 CARDIOLOGY CONSULTATION CONSULTATION REQUESTED BY: Ira Cho M.D. LOCATION: CCU TIME: 3:20 p.m. to 4:25 p.m. CHIEF COMPLAINT: 1. Lethargy and confusion. 2. Difficulty in breathing. HISTORY OF PRESENT ILLNESS: The patient is an 86-year-old -[place] female with history of chronic obstructive pulmonary disease, bronchial asthma, history of congestive heart failure, chronic kidney disease, history of paroxysmal atrial flutter resistant to therapy, and history of hypertension. She was found to be confused and lethargic by her daughter, in a snf facility. She was tachypneic and agitated. She was brought to the hospital and was found to be in septic shock. The patient currently is on vasopressor and is noted to be in atrial fibrillation with moderate ventricular response. According to the daughter, the patient had not complained of chest pain or discomfort, but she noted that she was becoming progressively dyspneic and when she was being transported by EMS, she was hypoxic. The patient has known chronic kidney disease and appears to have acute renal injury and was accomplished by hyperkalemia. PAST MEDICAL HISTORY: As mentioned in the HPI. 1. History of ischemic colitis. 2. History of diverticular disease. PAST SURGICAL HISTORY: Status post appendectomy, status post hysterectomy, status post partial colectomy. SOCIAL HISTORY: She is a . She is a nonsmoker. There is no history of alcohol or substance abuse. FAMILY HISTORY: Currently not available. ALLERGIES: 1. PENICILLIN. 2. PROCAINE. CURRENT MEDICATIONS: 1. Norepinephrine 4000 mcg in 500 mL of at 37.5 mL/hour (5 mcg/min). 2. Meropenem 500 mg b.i.d. 3. Normal saline 100 mL/hour. 4. Morphine sulfate 2 mg IV push q.3 h. p.r.n. 5. Protonix 40 mg p.o. daily. PREVIOUS MEDICATIONS: 1. Diltiazem 240 mg p.o. daily. 2. Isosorbide mononitrate 30 mg p.o. daily. 3. Losartan 50 mg p.o. daily. 4. Aspirin 81 mg p.o. daily. 5. Metoprolol succinate 50 mg p.o. b.i.d. 6. Oxycodone 5 mg q.6 h. p.r.n. 7. Zantac 150 mg p.o. daily. 8. Advair 100/50 mcg 1 inhalation b.i.d. 9. Amiodarone 200 mg b.i.d., started prior to cardioversion. REVIEW OF SYSTEMS: Constitutional: See history of present illness. Cardiovascular: See history of present illness. Respiratory: See history of present illness. No history of hemoptysis. Gastrointestinal: According to the daughter, the patient's appetite was poor and she was not drinking enough fluids. Neurological: History of confusion. No history of seizures. No history of focal weakness. Endocrine: No history of polyuria or polydipsia. Genitourinary: History of resistant chronic urinary tract infection. PHYSICAL EXAMINATION: General: An 86-year-old lethargic female who was arousable and followed basic commands. No pallor, cyanosis, clubbing or jaundice. Vital Signs: At 1632 hours, blood pressure 117/68 mmHg, pulse 76 beats per minute and irregularly irregular. Current temperature 97.5; on admission she was febrile. Neck: Supple. No jugular venous distention. Hepatojugular reflux was negative. Carotids were 1+ to 2+. No bruits were appreciated. No thyromegaly was present. Heart: PMI was in the 5th intercostal space. Heart sounds were distant. No murmur or gallop was appreciated. Lungs: Decreased breath sounds at the left base but clear. No extraneous sounds were heard. Abdomen: Soft, obese and nontender. No hepatosplenomegaly or palpable masses were felt. Bowel sounds were decreased. No bruits were heard. Extremities: No calf tenderness or dependent edema. The extremities were warm. Dorsalis pedis and posterior tibial pulses could not be palpated. Femoral pulses were 1+. LABORATORY DATA: ECG on May 08, 2017, at 2054 hours: Atrial fibrillation with moderate ventricular response, left anterior hemiblock, poor R-wave progression across the precordial leads with terminal S waves in V5 and V6 may be related to left anterior hemiblock or right ventricular preponderance. There were right chest lead ST and T-wave abnormalities. Previous ECG is not available for comparison. CBC: WBC count 28,500 on May 08, 2017, and 24,000 on May 09, 2017. Hemoglobin was 8.9 and 8.7, respectively. Differential revealed a left shift. Chemistry on May 09, 2017: Sodium 143, potassium 5.3, chloride 110, CO2 of 23 mmol/L, BUN 85, creatinine 4.7 mg/dL, random glucose 122 mg/dL, lactic acid 0.9. On May 08, sodium was 140, potassium 6.0, chloride 106, CO2 of 22 mmol/L, BUN 81, creatinine 5.0 mg/dL, lactic acid 3.8. Troponin was elevated at 0.06. Follow-up troponin was 0.05. BNP was 14,048.26. There was hypoalbuminemia. Arterial blood gases on May 08, 2017: The pH 7.34, pCO2 of 40.8, pO2 of 50.1, bicarbonate 21.6. Chest x-ray reported to have an uncoiled thoracic aorta, prominent cardiac silhouette, increased lung markings. Accentuated pulmonary vasculature, left greater than right, attributed to a combination of portable nature of the examination and shallow inspiration. Follow-up imaging may need to be considered if clinically indicated. Limited evaluation of the lung in the left retrocardiac region. Soft tissue of the chest projecting over the lung bases. Degenerative changes of the bilateral glenohumeral joints. IMPRESSION: 1. Septic shock. 2. Iwjwl-hf-oxyhaby kidney disease. 3. Paroxysmal atrial fibrillation with controlled ventricular response (recent cardioversion for atrial flutter to sinus rhythm). 4. History of hypertension. 5. Bronchial asthma. 6. Chronic obstructive pulmonary disease. 7. Resistant urinary tract infection. 8. History of coronary artery disease. 9. Mental confusion, etiology most likely related to acute metabolic encephalopathy. 10. Status post ischemic colitis. 11. Dehydration. 12. Elevated troponin, etiology: A. Secondary to sepsis. B. Atrial fibrillation. C. Demand ischemia. 13. Elevated B natriuretic peptide, partly related to septic shock. 14. Hyperkalemia. RECOMMENDATIONS: 1. Amiodarone level. 2. The patient is on vasopressors and her blood pressure remains stable, considering tapering off Levophed. 3. Antibiotics in progress. 4. Follow up ECG and enzymes. 5. Follow up BNP. 6. Cautious hydration is in progress. 7. T3, T4, TSH. PROGNOSIS: Critical. Thank you for your referral. ANAMARIA BOLAÑOS M.D. [facility]/[id number]
--- NOTE | 2017-05-11 11:12 | PN ---
Progress Note (short form) - Note Progress Note: Pulm/CCM Pt seen and examined in ICU SUBJECTIVE: -low grade temp -Chest Xray with some improvement -mouth pain with oral thrush, nystatin and magic mouthwash started -in for floor bed Vital Signs Temp 101.0 F H 05/11/17 07:22 Pulse 124 H 05/11/17 10:20 Resp 28 H 05/11/17 08:15 BP 118/61 05/11/17 08:15 Pulse Ox 93 L 05/11/17 10:20 Intake & Output 05/10/17 05/10/17 05/11/17 11:59 23:59 11:59 Intake Total 560 1314 996 Output Total 1000 700 900 Balance -440 614 96 Weight 106.821 kg 107.139 kg Intake: IV 560 954 996 Normal Saline - 1,000 ml 560 954 996 @ 83 mls/hr IV ASDIR [facility] Rx#:[id number] Oral 360 Output: Urine 1000 700 900 Gibbons 1000 700 900 Other: Voiding Method Indwelling Catheter Indwelling Catheter Bowel Movement 1 Weight Measurement Method Built in Bedscale Built in Bedscale Active Medications Acetaminophen (Tylenol Oral Solution -) 650 mg PO Q6H PRN PRN Reason: FEVER OR PAIN Last Admin: 05/11/17 08:39 Dose: 650 mg Guaifenesin (Robitussin Dm -) 10 ml PO Q4H PRN PRN Reason: COUGH Last Admin: 05/10/17 21:11 Dose: 10 ml Meropenem (Merrem (Restricted To Id) -) 500 mg in 10 mls @ 120 mls/hr IVPUSH BID [facility] Last Admin: 05/11/17 10:16 Dose: 120 mls/hr Sodium Chloride (Normal Saline -) 1,000 mls @ 83 mls/hr IV ASDIR [facility] Last Admin: 05/11/17 00:00 Dose: 83 mls/hr Lidocaine/Aluminum/Magnesium/Simeth (Magic Mouthwash *Sjr Formula* -) 5 ml MM Q6HPO [facility] Last Admin: 05/11/17 10:10 Dose: 5 ml Morphine Sulfate (Morphine Sulfate) 2 mg IVPUSH Q3H PRN PRN Reason: PAIN Last Admin: 05/11/17 01:16 Dose: 2 mg Nystatin (Nystatin Oral Suspension -) 500,000 units PO Q6HPO [facility] Last Admin: 05/11/17 09:06 Dose: 500,000 units Pantoprazole Sodium (Protonix -) 40 mg PO DAILY [facility] Last Admin: 05/11/17 10:16 Dose: 40 mg GENERAL: awake aler HEAD: No signs of trauma ENT: dry MM NECK: No JVD, R IJ TLC CDI LUNGS: BS diminished at the L base HEART: irregularly irregular ABDOMEN: Soft, non tender EXTREMITIES: Normal range of motion, no edema. No clubbing or cyanosis. No cords, erythema, or tenderness NEUROLOGICAL: Non-focal SKIN: Warm, Dry, normal turgor, no rashes or lesions noted. CBCD WBC 25.8 K/mm3 (4.0-10.0) H 05/10/17 06:00 RBC 2.77 M/mm3 (3.60-5.2) L 05/10/17 06:00 Hgb 8.0 GM/dL (10.7-15.3) L 05/10/17 06:00 Hct 23.4 % (32.4-45.2) L 05/10/17 06:00 MCV 84.3 fl (80-96) 05/10/17 06:00 MCHC 34.2 g/dl (32.0-36.0) 05/10/17 06:00 RDW 14.1 % (11.6-15.6) 05/10/17 06:00 Plt Count 283 K/MM3 (134-434) 05/10/17 06:00 MPV 8.8 fl (7.5-11.1) 05/10/17 06:00 CMP Sodium 145 mmol/L (136-145) 05/10/17 06:00 Potassium 5.1 mmol/L (3.5-5.1) 05/10/17 06:00 Chloride 116 mmol/L (98-107) H 05/10/17 06:00 Carbon Dioxide 22 mmol/L (21-32) 05/10/17 06:00 Anion Gap 7 (8-16) L 05/10/17 06:00 BUN 78 mg/dL (7-18) H 05/10/17 06:00 Creatinine 3.2 mg/dL (0.55-1.02) H 05/10/17 06:00 Creat Clearance w eGFR 13.70 (>60) 05/10/17 06:00 Calcium 8.0 mg/dL (8.5-10.1) L 05/10/17 06:00 Total Bilirubin 1.1 mg/dL (0.2-1.0) H D 05/10/17 06:00 AST 10 U/L (15-37) L D 05/10/17 06:00 ALT 14 U/L (12-78) D 05/10/17 06:00 Alkaline Phosphatase 40 U/L (45-117) L 05/10/17 06:00 Total Protein 5.1 g/dl (6.4-8.2) L 05/10/17 06:00 Albumin 1.7 g/dl (3.4-5.0) L 05/10/17 06:00 Microbiology 05/08/17 20:50 Blood - Peripheral Venous Blood Culture - Preliminary NO GROWTH OBTAINED AFTER 24 HOURS, INCUBATION TO CONTINUE FOR 4 DAYS. 05/08/17 20:52 Blood - Peripheral Venous Blood Culture - Preliminary NO GROWTH OBTAINED AFTER 24 HOURS, INCUBATION TO CONTINUE FOR 4 DAYS. IMP: Septic Shock due to a suspected tract source, resolved EMANUEL Toxic Metabolic Encephalopathy (?) PNA Obesity AFib Anemia Coagulopathy ABX per ID, consider broadening given recurrent fever, hemodynamically stable however Follow cultures O2 as needed to maintain saturation Strict I&O Follow BMP ,improving GI prophylaxis Decolonization ICU monitoring OK for med/surg marzena Llanes ACNP [id number]
[2017-05-11] MEDS: SODIUM CHLORIDE 1,000 ML IV SCH ×3 (11:45→22:00)
--- NOTE | 2017-05-11 11:51 | PN ---
Progress Note, Physician Chief Complaint: Feeling weak c/o mild SOB History of Present Illness: 86 yrs old f multiple co-morbidities including, HTN, sHF, Afib s/p cardioversion , CKD stage 3, recently discharged to [place] readmitted with worsening renal function, pneumonia and sepsis - Current Medication List Current Medications: Active Medications Acetaminophen (Tylenol Oral Solution -) 650 mg PO Q6H PRN PRN Reason: FEVER OR PAIN Last Admin: 05/11/17 08:39 Dose: 650 mg Guaifenesin (Robitussin Dm -) 10 ml PO Q4H PRN PRN Reason: COUGH Last Admin: 05/10/17 21:11 Dose: 10 ml Meropenem (Merrem (Restricted To Id) -) 500 mg in 10 mls @ 120 mls/hr IVPUSH BID [facility] Last Admin: 05/11/17 10:16 Dose: 120 mls/hr Sodium Chloride (Normal Saline -) 1,000 mls @ 83 mls/hr IV ASDIR [facility] Last Admin: 05/11/17 11:45 Dose: 83 mls/hr Lidocaine/Aluminum/Magnesium/Simeth (Magic Mouthwash *Sjr Formula* -) 5 ml MM Q6HPO [facility] Last Admin: 05/11/17 10:10 Dose: 5 ml Morphine Sulfate (Morphine Sulfate) 2 mg IVPUSH Q3H PRN PRN Reason: PAIN Last Admin: 05/11/17 01:16 Dose: 2 mg Nystatin (Nystatin Oral Suspension -) 500,000 units PO Q6HPO [facility] Last Admin: 05/11/17 09:06 Dose: 500,000 units Pantoprazole Sodium (Protonix -) 40 mg PO DAILY [facility] Last Admin: 05/11/17 10:16 Dose: 40 mg - Objective Vital Signs: Vital Signs Temperature 101.0 F H 05/11/17 07:22 Pulse Rate 109 H 05/11/17 11:24 Respiratory Rate 27 H 05/11/17 11:24 Blood Pressure 111/94 05/11/17 11:24 O2 Sat by Pulse Oximetry (%) 93 L 05/11/17 10:20 Elderly F not in acute distress no c/o chest pain or SOB HEENT; Mm moist, no anemia, PERRLA EOMI NECK: No JVD, No Bruit CHEST: B/L basal crepts CVS: s1S2 ir no m/g/r ABD: no distention, non tender Bs + EXT; ++ edema feet, no calf tenderness 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: AOX3 non focal Labs: CBC, BMP 05/11/17 07:30 05/11/17 07:30 INR, PTT INR 1.04 (0.82-1.09) D 05/11/17 07:30 Problem List - Problems (1) Healthcare-associated pneumonia Assessment/Plan: So falr all cultures are negative, on Meropenam F/U sputum, Blood and urine culture Code(s): J18.9 - PNEUMONIA, UNSPECIFIED ORGANISM (2) Sepsis Assessment/Plan: Due to UTI or Pneumonia Code(s): A41.9 - SEPSIS, UNSPECIFIED ORGANISM (3) Altered mental status Assessment/Plan: Due to sepsis and Metabolic encephalopathy Code(s): R41.82 - ALTERED MENTAL STATUS, UNSPECIFIED (4) COPD mixed type Assessment/Plan: Cont current Nebs treatment saturating well Code(s): J44.9 - CHRONIC OBSTRUCTIVE PULMONARY DISEASE, UNSPECIFIED (5) CHF (NYHA class II, ACC/AHA stage C) Assessment/Plan: Patient has systolic HF cont current mangement Code(s): I50.9 - HEART FAILURE, UNSPECIFIED (6) Persistent atrial fibrillation Assessment/Plan: Patient has persistent Afib rate is around 100 F/U Cradiology recommondations Code(s): I48.1 - PERSISTENT ATRIAL FIBRILLATION (7) Renal function impairment Assessment/Plan: F/U Renal recommendations and BMP Code(s): N28.9 - DISORDER OF KIDNEY AND URETER, UNSPECIFIED
[2017-05-11] MEDS ORDERED: HEPARIN NA (PORCINE) 5,000 UNITS/ML 1ML VIAL IVPUSH ONE (13:41)
[2017-05-11] MEDS ORDERED: HEPARIN NA (PORCINE) 5,000 UNITS/ML 1ML VIAL IVPUSH PRN (13:41)
[2017-05-11] MEDS: HEPARIN INFUSION - 25,000 UNITS/500 ML INFUS.BAG IVPB SCH (13:56)
[2017-05-11] MEDS: METOPROLOL SUCCINATE 50 MG TAB.SR.24H (FP) PO SCH ×2 (14:00→21:20)
--- NOTE | 2017-05-11 14:56 | PN ---
Progress Note (short form) - Note Progress Note: 86 year old AA female with sepsis, acute on CKD, new onset atrial fib with rapid ventricular response. Chronic UTI is confused. in time and space. unable to elicite any complaints. Active Medications Acetaminophen (Tylenol Oral Solution -) 650 mg PO Q6H PRN PRN Reason: FEVER OR PAIN Last Admin: 05/11/17 08:39 Dose: 650 mg Guaifenesin (Robitussin Dm -) 10 ml PO Q4H PRN PRN Reason: COUGH Last Admin: 05/10/17 21:11 Dose: 10 ml Heparin Sodium (Porcine) (Heparin -) 5,000 unit IVPUSH PRN PRN Heparin Sodium (Porcine) (Heparin -) 1,000 unit IVPUSH PRN PRN Meropenem (Merrem (Restricted To Id) -) 500 mg in 10 mls @ 120 mls/hr IVPUSH BID [facility] Last Admin: 05/11/17 10:16 Dose: 120 mls/hr Sodium Chloride (Normal Saline -) 1,000 mls @ 83 mls/hr IV ASDIR [facility] Last Admin: 05/11/17 11:45 Dose: 83 mls/hr Heparin Sodium/Dextrose (Heparin Infusion -) 25,000 units in 500 mls @ 20 mls/ hr IVPB TITR [facility]; 1,000 UNITS/HR PRN Reason: Protocol Last Admin: 05/11/17 13:56 Dose: 1,000 units/hr, 20 mls/hr Lidocaine/Aluminum/Magnesium/Simeth (Magic Mouthwash *Sjr Formula* -) 5 ml MM Q6HPO [facility] Last Admin: 05/11/17 13:55 Dose: 5 ml Metoprolol Succinate (Toprol Xl -) 50 mg PO BID [facility] Last Admin: 05/11/17 14:00 Dose: 50 mg Morphine Sulfate (Morphine Sulfate) 2 mg IVPUSH Q3H PRN PRN Reason: PAIN Last Admin: 05/11/17 01:16 Dose: 2 mg Nystatin (Nystatin Oral Suspension -) 500,000 units PO Q6HPO [facility] Last Admin: 05/11/17 13:53 Dose: 500,000 units Pantoprazole Sodium (Protonix -) 40 mg PO DAILY [facility] Last Admin: 05/11/17 10:16 Dose: 40 mg 86 year old confused female, slightly aggitated, Last Vital Signs Temp Pulse Resp BP Pulse Ox 101.0 F H 109 H 27 H 111/94 93 L 05/11/17 07:22 05/11/17 11:24 05/11/17 11:24 05/11/17 11:24 05/11/17 10:20 Neck: supple, no JVD, Carotids are equal. HEART: PMI was in the 5th ICS, distant heart sounds, no murmur or gallop appreciated. LUNGS:Clear on auscultation. ABDOMEN:Obese, nontender, no organomegaly or palpable masses felt. EXTREMITIES:No calf tenderness or dependent edema. Laboratory Results - last 24 hr 05/11/17 05/11/17 05/11/17 07:30 07:30 07:30 WBC 27.4 H RBC 2.74 L Hgb 7.8 L Hct 23.6 L MCV 86.1 MCH 28.3 MCHC 32.8 RDW 14.2 Plt Count 296 MPV 9.0 PT with INR 11.80 INR 1.04 D Sodium 147 H Potassium 4.6 Chloride 118 H Carbon Dioxide 20 L Anion Gap 9 BUN 68 H Creatinine 2.4 H D Random Glucose 91 Calcium 8.0 L A: 1. Sepsis. 2. Chronic drug resistent UTI. 3. COPD. 4. New onset atrial fibrillation with rapid ventricular response. 5. Hypertension. 6. Mental confusion, etiology needs to be determined. RECOMMENDATION: 1. Control of heart rate. 2. Resume beta blockers. 3. REsume iv heparin as INR is subtherapeutic. 4. recoumadize 5. Evaluation of mental confusion, consider neurological evaluation. TIME spent 45 mins.
[2017-05-12 00:10] LABS: FREE T3 1.3 pg/mL (2.0-4.4)
[2017-05-12] MEDS: MAG HYDROX/ALH/SMC/DPHA/LIDO 240 ML MOUTHWASH MM SCH ×4 (00:26→17:37)
[2017-05-12] MEDS: NYSTATIN 500,000 UNITS/5 ML SUSPENSION PO SCH ×4 (00:26→17:37)
[2017-05-12] MEDS: morphine SULFATE 4 MG/ML VIAL IVPUSH PRN (00:36)
[2017-05-12 06:23] LABS: MCH 28.7 pg (25.7-33.7); MCHC 32.7 g/dl (32.0-36.0); MEAN CELL VOLUME 87.8 fl (80-96); MEAN PLT VOLUME 9.4 fl (7.5-11.1); PLATELET COUNT 290 K/MM3 (134-434); RDW 14.2 % (11.6-15.6)
[2017-05-12 06:58] LABS: ANION GAP 7 (8-16); CALCIUM 8.4 mg/dL (8.5-10.1); CO2 22 mmol/L (21-32); CREATININE 2.1 mg/dL (0.55-1.02); GLUCOSE,RANDOM 91 mg/dL (74-106)
[2017-05-12 07:04] LABS: WHITE BLOOD COUNT 32.6 K/mm3 (4.0-10.0)
[2017-05-12 08:12] LABS: METAMYELOCYTE 3 % (0-2); MYELOCYTE 10 % (0-2); NUCLEATED RED BLOOD CELL 14 % (0-0)
[2017-05-12 08:13] LABS: PLATELET ESTIMATE ADEQUATE
[2017-05-12] MEDS ORDERED: PT OWN MED DRAWER 7, Y5N ONE ×3 (09:11→17:35)
[2017-05-12] MEDS: PANTOPRAZOLE 40 MG TABLET (FP) PO SCH (09:13)
[2017-05-12] MEDS: METOPROLOL SUCCINATE 50 MG TAB.SR.24H (FP) PO SCH ×2 (09:13→21:57)
[2017-05-12] MEDS: MEROPENEM 500 MG PUSH 500 MG/10 ML DISP.SYRIN IVPUSH SCH ×2 (09:14→21:57)
[2017-05-12] MEDS: HEPARIN NA (PORCINE) 5,000 UNITS/ML 1ML VIAL IVPUSH PRN ×2 (09:14→15:52)
--- NOTE | 2017-05-12 09:36 | PN ---
Progress Note (short form) - Note Progress Note: Renal Follow up for EMANUEL Pt seen and examine in the ICU awake and alert on NC O2 No acute complaints no N/V/D no fevers good urine output Vital Signs Temperature 98.3 F 05/12/17 06:00 Pulse Rate 113 H 05/12/17 06:00 Respiratory Rate 25 H 05/12/17 06:00 Blood Pressure 130/78 05/12/17 06:00 O2 Sat by Pulse Oximetry (%) 93 L 05/11/17 21:00 Intake & Output 05/09/17 05/10/17 05/11/17 05/12/17 23:59 23:59 23:59 23:59 Intake Total 4206 1874 2192 824 Output Total 1050 1700 2300 800 Balance 3156 174 -108 24 Weight 103.328 kg 106.821 kg 107.139 kg 107.32 kg NAD awake and alert RRR CTA (anterior exam) No LE edema CBC, BMP 05/12/17 05:00 05/12/17 05:00 Current Medications Acetaminophen (Tylenol Oral Solution -) 650 mg PO Q6H PRN PRN Reason: FEVER OR PAIN Last Admin: 05/11/17 08:39 Dose: 650 mg Guaifenesin (Robitussin Dm -) 10 ml PO Q4H PRN PRN Reason: COUGH Last Admin: 05/10/17 21:11 Dose: 10 ml Heparin Sodium (Porcine) (Heparin -) 5,000 unit IVPUSH PRN PRN Heparin Sodium (Porcine) (Heparin -) 1,000 unit IVPUSH PRN PRN Last Admin: 05/12/17 09:14 Dose: 1,000 unit Meropenem (Merrem (Restricted To Id) -) 500 mg in 10 mls @ 120 mls/hr IVPUSH BID [facility] Last Admin: 05/12/17 09:14 Dose: 120 mls/hr Sodium Chloride (Normal Saline -) 1,000 mls @ 83 mls/hr IV ASDIR [facility] Last Admin: 05/11/17 22:00 Dose: 83 mls/hr Heparin Sodium/Dextrose (Heparin Infusion -) 25,000 units in 500 mls @ 20 mls/ hr IVPB TITR [facility]; 1,000 UNITS/HR PRN Reason: Protocol Last Admin: 05/11/17 13:56 Dose: 1,000 units/hr, 20 mls/hr Lidocaine/Aluminum/Magnesium/Simeth (Magic Mouthwash *Sjr Formula* -) 5 ml MM Q6HPO [facility] Last Admin: 05/12/17 06:43 Dose: 5 ml Metoprolol Succinate (Toprol Xl -) 50 mg PO BID [facility] Last Admin: 05/12/17 09:13 Dose: 50 mg Nystatin (Nystatin Oral Suspension -) 500,000 units PO Q6HPO [facility] Last Admin: 05/12/17 06:42 Dose: 500,000 units Pantoprazole Sodium (Protonix -) 40 mg PO DAILY [facility] Last Admin: 05/12/17 09:13 Dose: 40 mg 86 year old woman with PMhx of Afib, Arrythmia s/p Cardioversion, CAD, Hypertension, HLD, COPD, Ischemic Colitis, mild CKD (Cr 1.6-1.8 in the EMR) who presented with SOB and found to have Sepsis secondary to PNA with EMANUEL with Cr of 5. #Acute on Chronic Renal Insufficiency in setting fo Sepsis/PNA with preserved tubular function secondary to hemadynamic injury from Sepsis + ARB Renal function continues to improve toward baseline good urine output Keep MAP > 65 D/c NS given mild congestion on CXR and increasing serum Na start D5W at 70 cc per hour Trend Na daily #Sepsis syndrome with PNA ICU care Abx as per ID O2 as needed #Hx of Hypertension, now hypotensive Keep MAP > 65 hold antihypertensives #Anemia/Eiosinophilia Transfuse as per icu protocol f/u urine eios #Hypernatremia start D5W oral water intake as tolerated #Lactic acidosis, now improved continue fluids keep MAP > 65 Alex Diaz DO
--- NOTE | 2017-05-12 09:55 | EKG ---
Test Reason : Blood Pressure : / mmHG Vent. Rate : 082 BPM Atrial Rate : 100 BPM P-R Int : 000 ms QRS Dur : 096 ms QT Int : 364 ms P-R-T Axes : 000 -26 115 degrees QTc Int : 425 ms ATRIAL FIBRILLATION ABNORMAL QRS-T ANGLE, CONSIDER PRIMARY T WAVE ABNORMALITY ABNORMAL ECG WHEN COMPARED WITH ECG OF 08-MAY-2017 20:54, NONSPECIFIC T WAVE ABNORMALITY NO LONGER EVIDENT IN ANTERIOR LEADS Confirmed by MICHELLE KRAFT, JOSEFINA ([id number]) on 05/12/2017 9:54:45 AM Referred By: Eboni BARTHOLOMEW Confirmed By:JOSEFINA MARTINEZ MD
--- NOTE | 2017-05-12 09:57 | PN ---
Progress Note, Physician Chief Complaint: Confused History of Present Illness: CHF ,pneumonia afib On imipenum ,continues to spike - Current Medication List Current Medications: Active Medications Acetaminophen (Tylenol Oral Solution -) 650 mg PO Q6H PRN PRN Reason: FEVER OR PAIN Last Admin: 05/11/17 08:39 Dose: 650 mg Guaifenesin (Robitussin Dm -) 10 ml PO Q4H PRN PRN Reason: COUGH Last Admin: 05/10/17 21:11 Dose: 10 ml Heparin Sodium (Porcine) (Heparin -) 5,000 unit IVPUSH PRN PRN Heparin Sodium (Porcine) (Heparin -) 1,000 unit IVPUSH PRN PRN Last Admin: 05/12/17 09:14 Dose: 1,000 unit Meropenem (Merrem (Restricted To Id) -) 500 mg in 10 mls @ 120 mls/hr IVPUSH BID MALIK Last Admin: 05/12/17 09:14 Dose: 120 mls/hr Heparin Sodium/Dextrose (Heparin Infusion -) 25,000 units in 500 mls @ 20 mls/ hr IVPB TITR MALIK; 1,000 UNITS/HR PRN Reason: Protocol Last Admin: 05/11/17 13:56 Dose: 1,000 units/hr, 20 mls/hr Dextrose (D5w -) 1,000 mls @ 70 mls/hr IV Q14H MALIK Lidocaine/Aluminum/Magnesium/Simeth (Magic Mouthwash *Sjr Formula* -) 5 ml MM Q6HPO [facility] Last Admin: 05/12/17 06:43 Dose: 5 ml Metoprolol Succinate (Toprol Xl -) 50 mg PO BID [facility] Last Admin: 05/12/17 09:13 Dose: 50 mg Nystatin (Nystatin Oral Suspension -) 500,000 units PO Q6HPO [facility] Last Admin: 05/12/17 06:42 Dose: 500,000 units Pantoprazole Sodium (Protonix -) 40 mg PO DAILY [facility] Last Admin: 05/12/17 09:13 Dose: 40 mg - Objective Vital Signs: Vital Signs Temperature 98.3 F 05/12/17 06:00 Pulse Rate 116 H 05/12/17 09:37 Respiratory Rate 25 H 05/12/17 06:00 Blood Pressure 130/78 05/12/17 06:00 O2 Sat by Pulse Oximetry (%) 96 05/12/17 09:37 Constitutional: Yes: Mild Distress Eyes: Yes: WNL HENT: Yes: WNL Neck: Yes: WNL Cardiovascular: Yes: WNL, Regular Rate and Rhythm Respiratory: Yes: Regular Gastrointestinal: Yes: Normal Bowel Sounds ...Rectal Exam: Yes: Deferred Genitourinary: Yes: WNL Musculoskeletal: Yes: Muscle Weakness Edema: No Neurological: Yes: Other (confussed) Labs: CBC, BMP 05/12/17 05:00 05/12/17 05:00 INR, PTT INR 1.04 (0.82-1.09) D 05/11/17 07:30 Assessment/Plan Case discussed with resident Continue same trt Will discuss with ID regarding high WBC
[2017-05-12] MEDS: DEXTROSE 5%-WATER - 1,000 ML IV SCH ×2 (10:08→22:00)
--- NOTE | 2017-05-12 12:13 | PN ---
Teaching Attending Note Name of Resident: Vega Carlos ATTENDING PHYSICIAN STATEMENT I saw and evaluated the patient. I reviewed the resident's note and discussed the case with the resident. I agree with the resident's findings and plan as documented. SUBJECTIVE: Pt seen and examined in the ICU. Somnolent but arousable. Follows commands. No further fevers. OBJECTIVE: Last Vital Signs Temp Pulse Resp BP Pulse Ox 98.9 F 115 H 20 132/85 96 05/12/17 10:00 05/12/17 10:00 05/12/17 10:00 05/12/17 10:00 05/12/17 09:37 Intake & Output 05/09/17 05/10/17 05/11/17 05/12/17 23:59 23:59 23:59 23:59 Intake Total 4206 1874 2192 824 Output Total 1050 1700 2300 800 Balance 3156 174 -108 24 Weight 227 lb 12.8 oz 235 lb 8 oz 236 lb 3.2 oz 236 lb 9.6 oz Gen: lethargic but arousable Heart: tachycardic, regular Lung: scattered basilar rales Abd: soft, nontender Ext: no edema CBC, BMP 05/12/17 05:00 05/12/17 05:00 INR, PTT INR 1.04 (0.82-1.09) D 05/11/17 07:30 Active Medications Acetaminophen (Tylenol Oral Solution -) 650 mg PO Q6H PRN PRN Reason: FEVER OR PAIN Last Admin: 05/11/17 08:39 Dose: 650 mg Guaifenesin (Robitussin Dm -) 10 ml PO Q4H PRN PRN Reason: COUGH Last Admin: 05/10/17 21:11 Dose: 10 ml Heparin Sodium (Porcine) (Heparin -) 5,000 unit IVPUSH PRN PRN Heparin Sodium (Porcine) (Heparin -) 1,000 unit IVPUSH PRN PRN Last Admin: 05/12/17 09:14 Dose: 1,000 unit Meropenem (Merrem (Restricted To Id) -) 500 mg in 10 mls @ 120 mls/hr IVPUSH BID [facility] Last Admin: 05/12/17 09:14 Dose: 120 mls/hr Heparin Sodium/Dextrose (Heparin Infusion -) 25,000 units in 500 mls @ 20 mls/ hr IVPB TITR MALIK; 1,000 UNITS/HR PRN Reason: Protocol Last Titration: 05/12/17 08:05 Dose: 1,100 units/hr, 22 mls/hr Dextrose (D5w -) 1,000 mls @ 70 mls/hr IV Q14H [facility] Last Admin: 05/12/17 10:08 Dose: 70 mls/hr Lidocaine/Aluminum/Magnesium/Simeth (Magic Mouthwash *Sjr Formula* -) 5 ml MM Q6HPO [facility] Last Admin: 05/12/17 06:43 Dose: 5 ml Metoprolol Succinate (Toprol Xl -) 50 mg PO BID [facility] Last Admin: 05/12/17 09:13 Dose: 50 mg Nystatin (Nystatin Oral Suspension -) 500,000 units PO Q6HPO [facility] Last Admin: 05/12/17 06:42 Dose: 500,000 units Pantoprazole Sodium (Protonix -) 40 mg PO DAILY [facility] Last Admin: 05/12/17 09:13 Dose: 40 mg ASSESSMENT AND PLAN: r/o Pneumonia Septic Shock resolved Acute Kidney Injury Toxic Metabolic Encephalopathy Atrial Fibrillation Obesity Anemia - continue antibiotics per ID - reculture if febrile - rate control - continue anticoagulation - IVF - monitor urine output, creatinine - aspiration precautions - DVT prophylaxis critical care time spent in reviewing chart, evaluating patient and formulating plan 35 min
--- NOTE | 2017-05-12 12:23 | PN ---
Physical Exam: SUBJECTIVE: The patient is an 86F with a PMH of a-fib (s/p ablation and cardioversion last week), DM, systolic CHF, COPD, CAD, CKD stage 3 who presented to the ED for OLIVER and confusion from a [facility]. She was found to have a LLL infiltrate and started on meropenem. Today has no acute complaints and is sitting comfortably in bed. Overnight, the nurse states that she ran a fever of 101F. White count notable for increase to 32.6 from 25.8. Hgb drop from 7.8 to 7.0. OBJECTIVE: Vital Signs Period Temp Pulse Resp BP Sys/Rodriguez Pulse Ox Last 24 Hr 98.3 F-99.5 F 95-122 20-29 104-148/56-97 93-96 GENERAL: The patient is awake, alert, and fully oriented, in no acute distress. HEAD: Normal with no signs of trauma. EYES: PERRL, extraocular movements intact, sclera anicteric, conjunctiva clear. No ptosis. NECK: CL present on right side. LUNGS: Coarse breath sounds in lower lobes, bilaterally. HEART: Regular rate and rhythm, S1, S2 without murmur, rub or gallop. ABDOMEN: Soft, nontender, nondistended, normoactive bowel sounds, no guarding, no rebound, no hepatosplenomegaly, no masses. EXTREMITIES: 2+ pulses, warm, well-perfused, no edema. NEUROLOGICAL: Cranial nerves II through XII grossly intact. Normal speech, gait not observed. PSYCH: Normal mood, normal affect. SKIN: Warm, dry, normal turgor, no rashes or lesions noted Laboratory Results - last 24 hr 05/09/17 05/09/17 05/09/17 06:49 12:28 16:29 WBC Corrected WBC (auto) RBC Hgb Hct MCV MCH MCHC RDW Plt Count MPV Neutrophils % (Manual) Band Neutrophils % Lymphocytes % (Manual) Monocytes % (Manual) Eosinophils % (Manual) Basophils % (Manual) Myelocytes % (Man) Nucleated RBC % Metamyelocytes Platelet Estimate PTT (Actin FS) Sodium Potassium Chloride Carbon Dioxide Anion Gap BUN Creatinine POC Glucometer 153.16094 97.74306 122.62057 Random Glucose Calcium Free T3 05/10/17 05/10/17 05/10/17 06:00 06:36 11:48 WBC Corrected WBC (auto) RBC Hgb Hct MCV MCH MCHC RDW Plt Count MPV Neutrophils % (Manual) Band Neutrophils % Lymphocytes % (Manual) Monocytes % (Manual) Eosinophils % (Manual) Basophils % (Manual) Myelocytes % (Man) Nucleated RBC % Metamyelocytes Platelet Estimate PTT (Actin FS) Sodium Potassium Chloride Carbon Dioxide Anion Gap BUN Creatinine POC Glucometer 88.80072 104.94105 Random Glucose Calcium Free T3 1.3 L 05/11/17 05/12/17 05/12/17 19:30 05:00 05:00 WBC 32.6 H* Corrected WBC (auto) 28.60 RBC 2.44 L Hgb 7.0 L D Hct 21.5 L MCV 87.8 MCH 28.7 MCHC 32.7 RDW 14.2 Plt Count 290 MPV 9.4 Neutrophils % (Manual) 51.0 D Band Neutrophils % 5.0 Lymphocytes % (Manual) 19.0 D Monocytes % (Manual) 1 L Eosinophils % (Manual) 11.0 H D Basophils % (Manual) 0.0 Myelocytes % (Man) 10 H Nucleated RBC % 14 H* Metamyelocytes 3 H Platelet Estimate Adequate PTT (Actin FS) 50.4 H D 40.0 H Sodium Potassium Chloride Carbon Dioxide Anion Gap BUN Creatinine POC Glucometer Random Glucose Calcium Free T3 05/12/17 05:00 WBC Corrected WBC (auto) RBC Hgb Hct MCV MCH MCHC RDW Plt Count MPV Neutrophils % (Manual) Band Neutrophils % Lymphocytes % (Manual) Monocytes % (Manual) Eosinophils % (Manual) Basophils % (Manual) Myelocytes % (Man) Nucleated RBC % Metamyelocytes Platelet Estimate PTT (Actin FS) Sodium 150 H Potassium 4.4 Chloride 121 H Carbon Dioxide 22 Anion Gap 7 L BUN 57 H Creatinine 2.1 H POC Glucometer Random Glucose 91 Calcium 8.4 L Free T3 Active Medications Generic Name Dose Route Start Last Admin Trade Name Freq PRN Reason Stop Dose Admin Acetaminophen 650 mg 05/11/17 08:27 05/11/17 08:39 Tylenol Oral Solution - PO 650 mg Q6H PRN Administration FEVER OR PAIN Guaifenesin 10 ml 05/09/17 22:43 05/10/17 21:11 Robitussin Dm - PO 10 ml Q4H PRN Administration COUGH Heparin Sodium (Porcine) 5,000 unit 05/11/17 13:41 Heparin - IVPUSH PRN PRN Heparin Sodium (Porcine) 1,000 unit 05/11/17 13:41 05/12/17 09:14 Heparin - IVPUSH 1,000 unit PRN PRN Administration Meropenem 500 mg in 10 mls @ 120 mls/hr 05/09/17 12:30 05/12/17 09:14 Merrem (Restricted To Id) - IVPUSH 120 mls/hr BID MALIK Administration Heparin Sodium/Dextrose 25,000 units in 500 mls @ 20 mls/hr 05/11/17 13:45 08:05 Heparin Infusion - IVPB 1,100 units/hr TITR MALIK 22 mls/hr Protocol Titration 1,000 UNITS/HR Dextrose 1,000 mls @ 70 mls/hr 05/12/17 09:45 05/12/17 10:08 D5w - IV 70 mls/hr Q14H MALIK Administration Lidocaine/Aluminum/Magnesium/Simeth 5 ml 05/11/17 08:00 05/12/17 06:43 Magic Mouthwash *Sjr Formula* - MM 5 ml Q6HPO MALIK Administration Metoprolol Succinate 50 mg 05/11/17 13:45 05/12/17 09:13 Toprol Xl - PO 50 mg BID MALIK Administration Nystatin 500,000 units 05/11/17 08:00 05/12/17 06:42 Nystatin Oral Suspension - PO 500,000 units Q6HPO MALIK Administration Pantoprazole Sodium 40 mg 05/09/17 05:30 05/12/17 09:13 Protonix - PO 40 mg DAILY MALIK Administration ASSESSMENT/PLAN: Neuro: - Altered mental status: A&O x 1 - Confused speech CV: - HTN and a-fib - Resuming beta-blockers - Continue heparin and toprol Pulm: - LLL infiltrate - Continue meropenem - Would appreciate ID recs as WBC has increased Renal: - Hypernatremic @ 150 - Place on D5W drip - Seen by nephro, consult appreciated : - Recent UA indicates no UTI GI: - None ID: - Recs for abx change, Dr. Rinaldi Hem/Onc: - None Endocrine: - None PPX: - DVT: heparin FEN (Fluids, electrolytes, nutrition): - Puree diet Dispo: - Remain in ICU to control infection and monitor AMS Visit type - Emergency Visit Emergency Visit: Yes ED Registration Date: 05/08/17 Care time: The patient presented to the Emergency Department on the above date and was hospitalized for further evaluation of their emergent condition. - New Patient This patient is new to me today: Yes Date on this admission: 05/20/17 - Critical Care Critical Care patient: Yes Total Critical Care Time (in minutes): 40 Critical Care Statement: The care of this patient involved high complexity decision making to prevent further life threatening deterioration of the patient 's condition and/or to evaluate & treat vital organ system(s) failure or risk of failure.
[2017-05-12] MEDS: HEPARIN INFUSION - 25,000 UNITS/500 ML INFUS.BAG IVPB SCH (12:59)
--- NOTE | 2017-05-12 16:37 | CON.ID ---
Consult - Past Medical History Cardio/Vascular: Yes: CAD, HTN, Hyperlipdemia Pulmonary: Yes: COPD Gastrointestinal: Yes: Diverticulitis, Diverticulosis, Other (ischemic colitis, h/o colon polyps) - Past Surgical History Past Surgical History: Yes: None, Appendectomy, Colectomy (partial colectomy for perforation from ? diverticulitis/ischemic colitis), Hysterectomy (JW/BSO) - Alcohol/Substance Use Hx Alcohol Use: No History of Substance Use: reports: None - Smoking History Smoking history: Never smoked Have you smoked in the past 12 months: No Aproximately how many cigarettes per day: 0 If you are a former smoker, when did you quit?: many years - Social History Usual Living Arrangement: With Child ADL: Family Assistance History of Recent Travel: No Home Medications - Allergies Allergies/Adverse Reactions: Allergies Allergy/AdvReac Type Severity Reaction Status Date / Time Penicillins Allergy Verified 05/08/17 20:51 procaine Allergy Verified 05/08/17 20:52 - Home Medications Home Medications: Ambulatory Orders Ascorbic Acid [Vitamin C with Barbara Hips] 500 mg PO DAILY 01/18/17 Aspirin [ASA -] 81 mg PO DAILY 01/18/17 Cholecalciferol (Vitamin D3) [Vitamin D3] 5,000 unit PO DAILY 01/18/17 Diltiazem HCl [Cartia Xt] 240 mg PO DAILY 01/18/17 Isosorbide Mononitrate [Isosorbide Mononitrate ER] 30 mg PO DAILY 01/18/17 Losartan Potassium 50 mg PO DAILY 01/18/17 Ranitidine [Zantac -] 150 mg PO DAILY 01/18/17 Albuterol 0.083% Nebulizer Madhavi [Ventolin 0.083% Nebulizer Soln -] 1 neb NEB Q6H 04/21/17 Albuterol Sulfate [Proair Respiclick] 90 mcg IH DAILY 04/21/17 Promethazine HCl [Phenergan Plain 6.25 MG/5 ML -] 10 ml PO TID 04/21/17 Nitrofurantoin Macrocrystal [Nitrofurantoin] 100 mg PO BID 04/22/17 Oxycodone HCl [Roxicodone -] 5 mg PO Q6H PRN 04/22/17 Amiodarone HCl [Cordarone -] 200 mg PO BID tablet 05/05/17 Ascorbic Acid [Vitamin C -] 500 mg PO DAILY tablet 05/05/17 Aspirin [ASA -] 81 mg PO DAILY tab.chew 05/05/17 Cholecalciferol (Vitamin D3) [Vitamin D3 -] 5,000 unit PO DAILY tab 05/05/17 Guaifenesin [Robitussin -] 10 ml PO Q6H PRN cup 05/05/17 Isosorbide Mononitrate [Imdur -] 30 mg PO DAILY tab.sr.24h 05/05/17 Losartan Potassium [Cozaar -] 50 mg PO DAILY tablet 05/05/17 Metoprolol Succinate [Toprol XL -] 50 mg PO BID tab.sr.24h 05/05/17 Oxycodone HCl [Roxicodone -] 5 mg PO Q6H PRN tablet MDD 20 05/05/17 Ranitidine [Zantac -] 150 mg PO DAILY tablet 05/05/17 Salmeterol/Fluticasone [Advair 100Mcg/50Mcg -] 1 puff IH BID inhaler 05/05/17 Family Disease History - Family Disease History Family Disease History: CA: Son (colon ca) Physical Exam Vital Signs: Vital Signs Temperature 98 F 05/12/17 14:00 Pulse Rate 104 H 05/12/17 14:00 Respiratory Rate 20 05/12/17 14:00 Blood Pressure 113/72 05/12/17 14:00 O2 Sat by Pulse Oximetry (%) 96 05/12/17 09:37 Labs: CBC, BMP 05/12/17 05:00 05/12/17 05:00
[2017-05-12 18:27] LABS: ANION GAP 8 (8-16); CALCIUM 7.9 mg/dL (8.5-10.1); CO2 21 mmol/L (21-32); CREATININE 1.9 mg/dL (0.55-1.02); GLUCOSE,RANDOM 107 mg/dL (74-106)
[2017-05-13] MEDS: NYSTATIN 500,000 UNITS/5 ML SUSPENSION PO SCH ×4 (00:11→17:08)
[2017-05-13] MEDS: MAG HYDROX/ALH/SMC/DPHA/LIDO 240 ML MOUTHWASH MM SCH ×4 (06:00→17:08)
[2017-05-13] MEDS: HEPARIN INFUSION - 25,000 UNITS/500 ML INFUS.BAG IVPB SCH ×2 (06:14→15:38)
[2017-05-13 06:39] LABS: MCH 28.3 pg (25.7-33.7); MEAN CELL VOLUME 88.6 fl (80-96); MEAN PLT VOLUME 9.1 fl (7.5-11.1); PLATELET COUNT 287 K/MM3 (134-434); RDW 14.3 % (11.6-15.6)
[2017-05-13 07:36] LABS: ALBUMIN 1.6 g/dl (3.4-5.0); ANION GAP 10 (8-16); CALCIUM 7.9 mg/dL (8.5-10.1); CO2 20 mmol/L (21-32); GLUCOSE,RANDOM 96 mg/dL (74-106); MAGNESIUM 1.8 mg/dL (1.8-2.4)
[2017-05-13 07:41] LABS: ALK PHOS 34 U/L (45-117); BILIRUBIN,TOTAL 0.5 mg/dL (0.2-1.0); CREATININE 1.9 mg/dL (0.55-1.02); PHOSPHOROUS 4.3 mg/dL (2.5-4.9); SGOT/AST 14 U/L (15-37); SGPT/ALT 13 U/L (12-78); TOT PROT 5.3 g/dl (6.4-8.2)
[2017-05-13 07:48] LABS: INR 1.42 (0.82-1.09)
[2017-05-13 07:51] LABS: ACTIVATED PTT 66.3 SECONDS (26.9-34.4)
[2017-05-13] MEDS: MEROPENEM 500 MG PUSH 500 MG/10 ML DISP.SYRIN IVPUSH SCH ×2 (09:10→21:16)
[2017-05-13] MEDS: PANTOPRAZOLE 40 MG TABLET (FP) PO SCH (09:10)
--- NOTE | 2017-05-13 09:20 | PN ---
Progress Note, Physician Chief Complaint: More awake and talking History of Present Illness: Hb today is 6.6 ,getting 1 unit of PRBC - Current Medication List Current Medications: Active Medications Acetaminophen (Tylenol Oral Solution -) 650 mg PO Q6H PRN PRN Reason: FEVER OR PAIN Last Admin: 05/11/17 08:39 Dose: 650 mg Guaifenesin (Robitussin Dm -) 10 ml PO Q4H PRN PRN Reason: COUGH Last Admin: 05/10/17 21:11 Dose: 10 ml Heparin Sodium (Porcine) (Heparin -) 5,000 unit IVPUSH PRN PRN Heparin Sodium (Porcine) (Heparin -) 1,000 unit IVPUSH PRN PRN Last Admin: 05/12/17 15:52 Dose: 1,000 unit Meropenem (Merrem (Restricted To Id) -) 500 mg in 10 mls @ 120 mls/hr IVPUSH BID [facility] Last Admin: 05/13/17 09:10 Dose: 120 mls/hr Heparin Sodium/Dextrose (Heparin Infusion -) 25,000 units in 500 mls @ 20 mls/ hr IVPB TITR MALIK; 1,000 UNITS/HR PRN Reason: Protocol Last Admin: 05/13/17 06:14 Dose: 1,200 units/hr, 24 mls/hr Dextrose (D5w -) 1,000 mls @ 70 mls/hr IV Q14H [facility] [place] Last Admin: 05/12/17 22:00 Dose: 70 mls/hr Lidocaine/Aluminum/Magnesium/Simeth (Magic Mouthwash *Sjr Formula* -) 5 ml MM Q6HPO [facility] [place] Last Admin: 05/13/17 06:29 Dose: Not Given Metoprolol Succinate (Toprol Xl -) 50 mg PO BID [facility] [place] Last Admin: 05/12/17 21:57 Dose: 50 mg Nystatin (Nystatin Oral Suspension -) 500,000 units PO Q6HPO [facility] [place] Last Admin: 05/13/17 06:12 Dose: 500,000 units Pantoprazole Sodium (Protonix -) 40 mg PO DAILY [facility] [place] Last Admin: 05/13/17 09:10 Dose: 40 mg - Objective Vital Signs: Vital Signs Temperature 98.4 F 05/13/17 06:00 Pulse Rate 90 05/13/17 08:00 Respiratory Rate 22 05/13/17 08:00 Blood Pressure 96/73 05/13/17 08:00 O2 Sat by Pulse Oximetry (%) 98 05/12/17 21:04 Constitutional: Yes: Mild Distress Eyes: Yes: WNL HENT: Yes: WNL Neck: Yes: WNL Cardiovascular: Yes: Pulse Irregular Respiratory: Yes: On Nasal O2 Gastrointestinal: Yes: WNL ...Rectal Exam: Yes: Deferred Genitourinary: Yes: Gibbons Present Breast(s): Yes: WNL Neurological: Yes: Alert Labs: CBC, BMP 05/13/17 06:00 05/13/17 06:00 INR, PTT INR 1.42 (0.82-1.09) H D 05/13/17 06:00 Assessment/Plan Continue same trt
[2017-05-13 09:47] LABS: METAMYELOCYTE 6 % (0-2); MYELOCYTE 2 % (0-2); TOTAL CELLS COUNTED 100
[2017-05-13 09:48] LABS: NUCLEATED RED BLOOD CELL 25 % (0-0); PLATELET ESTIMATE ADEQUATE
--- NOTE | 2017-05-13 09:54 | PN ---
Progress Note (short form) - Note Progress Note: Renal Follow up for EMANUEL Pt seen and examine in the ICU awake and alert on NC O2 no overnight events getting PRBC transfusion today making urine no acute complaints Vital Signs Temperature 98.4 F 05/13/17 06:00 Pulse Rate 90 05/13/17 08:00 Respiratory Rate 22 05/13/17 08:00 Blood Pressure 96/73 05/13/17 08:00 O2 Sat by Pulse Oximetry (%) 98 05/12/17 21:04 Intake & Output 05/10/17 05/11/17 05/12/17 05/13/17 23:59 23:59 23:59 23:59 Intake Total 1874 2192 3082 1128 Output Total 1700 2300 3300 400 Balance 174 -108 -218 728 Weight 106.821 kg 107.139 kg 107.32 kg 109.5 kg NAD awake and alert RRR CTA (anterior exam) No LE edema CBC, BMP 05/13/17 06:00 05/13/17 06:00 Current Medications Acetaminophen (Tylenol Oral Solution -) 650 mg PO Q6H PRN PRN Reason: FEVER OR PAIN Last Admin: 05/11/17 08:39 Dose: 650 mg Guaifenesin (Robitussin Dm -) 10 ml PO Q4H PRN PRN Reason: COUGH Last Admin: 05/10/17 21:11 Dose: 10 ml Heparin Sodium (Porcine) (Heparin -) 5,000 unit IVPUSH PRN PRN Heparin Sodium (Porcine) (Heparin -) 1,000 unit IVPUSH PRN PRN Last Admin: 05/12/17 15:52 Dose: 1,000 unit Meropenem (Merrem (Restricted To Id) -) 500 mg in 10 mls @ 120 mls/hr IVPUSH BID [facility] Last Admin: 05/13/17 09:10 Dose: 120 mls/hr Heparin Sodium/Dextrose (Heparin Infusion -) 25,000 units in 500 mls @ 20 mls/ hr IVPB TITR MALIK; 1,000 UNITS/HR PRN Reason: Protocol Last Admin: 05/13/17 06:14 Dose: 1,200 units/hr, 24 mls/hr Dextrose (D5w -) 1,000 mls @ 70 mls/hr IV Q14H [facility] Last Admin: 05/12/17 22:00 Dose: 70 mls/hr Lidocaine/Aluminum/Magnesium/Simeth (Magic Mouthwash *Sjr Formula* -) 5 ml MM Q6HPO [facility] Last Admin: 05/13/17 06:29 Dose: Not Given Metoprolol Succinate (Toprol Xl -) 50 mg PO BID [facility] Last Admin: 05/12/17 21:57 Dose: 50 mg Nystatin (Nystatin Oral Suspension -) 500,000 units PO Q6HPO [facility] Last Admin: 05/13/17 06:12 Dose: 500,000 units Pantoprazole Sodium (Protonix -) 40 mg PO DAILY [facility] Last Admin: 05/13/17 09:10 Dose: 40 mg 86 year old woman with PMhx of Afib, Arrythmia s/p Cardioversion, CAD, Hypertension, HLD, COPD, Ischemic Colitis, mild CKD (Cr 1.6-1.8 in the EMR) who presented with SOB and found to have Sepsis secondary to PNA with EMANUEL with Cr of 5. #Acute on Chronic Renal Insufficiency in setting fo Sepsis/PNA with preserved tubular function secondary to hemadynamic injury from Sepsis + ARB Renal function improving urine output is good no acute indication for [employer] off isotonic saline b/c of volume expansion/overload keep MAP > 65, CVP 8-10 trend BUN/Cr and electrolytes #Sepsis syndrome with PNA ICU care Abx as per ID O2 as needed #Hx of Hypertension, now hypotensive Keep MAP > 65 hold antihypertensives #Anemia/Eiosinophilia getting prbc transfusion today f/u urine eios #Hypernatremia start D5W serum Na improving #Lactic acidosis, now improved continue fluids keep MAP > 65 Alex Diaz DO
--- NOTE | 2017-05-13 12:24 | PN ---
Teaching Attending Note Name of Resident: Vega Carlos ATTENDING PHYSICIAN STATEMENT I saw and evaluated the patient. I reviewed the resident's note and discussed the case with the resident. I agree with the resident's findings and plan as documented. SUBJECTIVE: Pt seen and examined in the ICU. Remains somnolent but more arousable. No fevers recorded but WBC continues to rise. OBJECTIVE: Last Vital Signs Temp Pulse Resp BP Pulse Ox 98.4 F 90 22 108/67 98 05/13/17 06:00 05/13/17 10:00 05/13/17 10:00 05/13/17 10:00 05/13/17 09:00 Intake & Output 05/10/17 05/11/17 05/12/17 05/13/17 23:59 23:59 23:59 23:59 Intake Total 1874 2192 3082 1128 Output Total 1700 2300 3300 400 Balance 174 -108 -218 728 Weight 235 lb 8 oz 236 lb 3.2 oz 236 lb 9.6 oz 241 lb 6.499 oz Gen: somnolent but arousable Heart: RRR Lung: decreased breath sounds at the bases Abd: soft, nontender Ext: no edema CBC, BMP 05/13/17 06:00 05/13/17 06:00 Active Medications Acetaminophen (Tylenol Oral Solution -) 650 mg PO Q6H PRN PRN Reason: FEVER OR PAIN Last Admin: 05/11/17 08:39 Dose: 650 mg Guaifenesin (Robitussin Dm -) 10 ml PO Q4H PRN PRN Reason: COUGH Last Admin: 05/10/17 21:11 Dose: 10 ml Heparin Sodium (Porcine) (Heparin -) 5,000 unit IVPUSH PRN PRN Heparin Sodium (Porcine) (Heparin -) 1,000 unit IVPUSH PRN PRN Last Admin: 05/12/17 15:52 Dose: 1,000 unit Meropenem (Merrem (Restricted To Id) -) 500 mg in 10 mls @ 120 mls/hr IVPUSH BID [facility] Last Admin: 05/13/17 09:10 Dose: 120 mls/hr Heparin Sodium/Dextrose (Heparin Infusion -) 25,000 units in 500 mls @ 20 mls/ hr IVPB TITR MALIK; 1,000 UNITS/HR PRN Reason: Protocol Last Admin: 05/13/17 06:14 Dose: 1,200 units/hr, 24 mls/hr Dextrose (D5w -) 1,000 mls @ 70 mls/hr IV Q14H [facility] Last Admin: 05/12/17 22:00 Dose: 70 mls/hr Lidocaine/Aluminum/Magnesium/Simeth (Magic Mouthwash *Sjr Formula* -) 5 ml MM Q6HPO [facility] Last Admin: 05/13/17 06:29 Dose: Not Given Metoprolol Succinate (Toprol Xl -) 50 mg PO BID [facility] Last Admin: 05/12/17 21:57 Dose: 50 mg Nystatin (Nystatin Oral Suspension -) 500,000 units PO Q6HPO [facility] Last Admin: 05/13/17 06:12 Dose: 500,000 units Pantoprazole Sodium (Protonix -) 40 mg PO DAILY [facility] Last Admin: 05/13/17 09:10 Dose: 40 mg ASSESSMENT AND PLAN: r/o Pneumonia Septic Shock resolved Acute Kidney Injury Toxic Metabolic Encephalopathy Atrial Fibrillation Obesity Anemia - continue antibiotics per ID - reculture if febrile - transfuse PRBC - monitor H/H - if H/H not responding appropriately to transfusions, will need to hold heparin and will get CT A/P - rate control - continue anticoagulation for now - IVF - monitor urine output, creatinine - aspiration precautions - DVT prophylaxis - continue ICU monitoring critical care time spent in reviewing chart, evaluating patient and formulating plan 35 min
[2017-05-13] MEDS ORDERED: PT OWN MED DRAWER 7, Y5N ONE ×2 (12:25→21:14)
[2017-05-13] MEDS: METOPROLOL SUCCINATE 50 MG TAB.SR.24H (FP) PO SCH ×2 (13:49→21:16)
--- NOTE | 2017-05-13 14:46 | PN ---
Progress Note, Physician History of Present Illness: patient feeling much better wbc higher - Current Medication List Current Medications: Active Medications Acetaminophen (Tylenol Oral Solution -) 650 mg PO Q6H PRN PRN Reason: FEVER OR PAIN Last Admin: 05/11/17 08:39 Dose: 650 mg Guaifenesin (Robitussin Dm -) 10 ml PO Q4H PRN PRN Reason: COUGH Last Admin: 05/10/17 21:11 Dose: 10 ml Heparin Sodium (Porcine) (Heparin -) 5,000 unit IVPUSH PRN PRN Heparin Sodium (Porcine) (Heparin -) 1,000 unit IVPUSH PRN PRN Last Admin: 05/12/17 15:52 Dose: 1,000 unit Meropenem (Merrem (Restricted To Id) -) 500 mg in 10 mls @ 120 mls/hr IVPUSH BID [facility] Last Admin: 05/13/17 09:10 Dose: 120 mls/hr Heparin Sodium/Dextrose (Heparin Infusion -) 25,000 units in 500 mls @ 20 mls/ hr IVPB TITR MALIK; 1,000 UNITS/HR PRN Reason: Protocol Last Admin: 05/13/17 06:14 Dose: 1,200 units/hr, 24 mls/hr Dextrose (D5w -) 1,000 mls @ 70 mls/hr IV Q14H [facility] Last Admin: 05/12/17 22:00 Dose: 70 mls/hr Lidocaine/Aluminum/Magnesium/Simeth (Magic Mouthwash *Sjr Formula* -) 5 ml MM Q6HPO [facility] Last Admin: 05/13/17 13:49 Dose: 5 ml Metoprolol Succinate (Toprol Xl -) 50 mg PO BID [facility] Last Admin: 05/13/17 13:49 Dose: Not Given Nystatin (Nystatin Oral Suspension -) 500,000 units PO Q6HPO [facility] Last Admin: 05/13/17 12:31 Dose: 500,000 units Pantoprazole Sodium (Protonix -) 40 mg PO DAILY [facility] Last Admin: 05/13/17 09:10 Dose: 40 mg - Objective Vital Signs: Vital Signs Temperature 97.4 F L 05/13/17 12:00 Pulse Rate 80 05/13/17 14:00 Respiratory Rate 18 05/13/17 14:00 Blood Pressure 105/72 05/13/17 14:00 O2 Sat by Pulse Oximetry (%) 98 05/13/17 09:00 Constitutional: Yes: No Distress, Calm Cardiovascular: Yes: Pulse Irregular, S1, S2 Respiratory: Yes: Regular, On Nasal O2, Poor Air Entry Gastrointestinal: Yes: Normal Bowel Sounds, Soft Musculoskeletal: Yes: WNL Extremities: Yes: WNL Neurological: Yes: Alert, Oriented Psychiatric: Yes: Alert, Oriented Labs: CBC, BMP 05/13/17 06:00 05/13/17 06:00 INR, PTT INR 1.42 (0.82-1.09) H D 05/13/17 06:00 Assessment/Plan d Septic Shock EMANUEL Toxic Metabolic Encephalopathy PNA Obesity AFib Anemia Coagulopathy leukocytosis wbc higher will give one dose of vanco an see if the wbc goes down plan will continue meropenam resp support as per cardio close watch on heart rate rest as per icu close watch of wbc cc time 40 min
[2017-05-13] MEDS ORDERED: VANCOMYCIN 1,250 MG in DEXTROSE 5%-WATER - 250 ML IVPB ONE (15:00)
--- NOTE | 2017-05-13 15:36 | PN ---
Physical Exam: SUBJECTIVE: The patient is an 86F with a PMH of a-fib (s/p ablation and cardioversion last week), DM, systolic CHF, COPD, CAD, CKD stage 3 who presented to the ED for OLIVER and confusion from a detention. She was found to have a LLL infiltrate and started on meropenem. The patient is complaining of a sore throat that has continued since her endoscopy procedure but states that it is more mild today. Otherwise has no acute complaints and is resting comfortably in bed. No overnight events. OBJECTIVE: Vital Signs Period Temp Pulse Resp BP Sys/Rodriguez Pulse Ox Last 24 Hr 97.4 F-98.8 F 80-112 18-24 88-128/60-100 96-98 GENERAL: The patient is awake, alert, and fully oriented, in no acute distress. HEAD: Normal with no signs of trauma. EYES: PERRL, extraocular movements intact, sclera anicteric, conjunctiva clear. No ptosis. ENT: Ears normal, nares patent, oropharynx clear without exudates, moist mucous membranes. NECK: Trachea midline, full range of motion, supple. LUNGS: Breath sounds equal, clear to auscultation bilaterally, no wheezes, no crackles, no accessory muscle use. HEART: Regular rate and rhythm, S1, S2 without murmur, rub or gallop. ABDOMEN: Soft, nontender, nondistended, normoactive bowel sounds, no guarding, no rebound, no hepatosplenomegaly, no masses. EXTREMITIES: 2+ pulses, warm, well-perfused, no edema. NEUROLOGICAL: Cranial nerves II through XII grossly intact. Normal speech, gait not observed. PSYCH: Normal mood, normal affect. SKIN: Warm, dry, normal turgor, no rashes or lesions noted Laboratory Results - last 24 hr 05/12/17 05/12/17 05/13/17 17:30 20:00 06:00 WBC 35.0 H* Corrected WBC (auto) 28.00 RBC 2.33 L Hgb 6.6 L* Hct 20.6 L MCV 88.6 MCH 28.3 MCHC 32.0 RDW 14.3 Plt Count 287 MPV 9.1 Total Counted 100 Neutrophils % No Result Required. Neutrophils % (Manual) 58.0 Band Neutrophils % 3.0 Lymphocytes % No Result Required. Lymphocytes % (Manual) 18.0 Monocytes % (Manual) 8 D Eosinophils % (Manual) 5.0 H Myelocytes % (Man) 2 D Nucleated RBC % 25 H* Metamyelocytes 6 H D Platelet Estimate Adequate PT with INR INR PTT (Actin FS) 74.9 H D Sodium 149 H Potassium 4.3 Chloride 120 H Carbon Dioxide 21 Anion Gap 8 BUN 54 H Creatinine 1.9 H Creat Clearance w eGFR Random Glucose 107 H Calcium 7.9 L Phosphorus Magnesium Total Bilirubin AST ALT Alkaline Phosphatase Total Protein Albumin Blood Type Antibody Screen Crossmatch 05/13/17 05/13/17 05/13/17 06:00 06:00 07:30 WBC Corrected WBC (auto) RBC Hgb Hct MCV MCH MCHC RDW Plt Count MPV Total Counted Neutrophils % Neutrophils % (Manual) Band Neutrophils % Lymphocytes % Lymphocytes % (Manual) Monocytes % (Manual) Eosinophils % (Manual) Myelocytes % (Man) Nucleated RBC % Metamyelocytes Platelet Estimate PT with INR 16.00 H INR 1.42 H D PTT (Actin FS) 66.3 H Sodium 146 H Potassium 4.1 Chloride 116 H Carbon Dioxide 20 L Anion Gap 10 BUN 48 H Creatinine 1.9 H Creat Clearance w eGFR 25.01 Random Glucose 96 Calcium 7.9 L Phosphorus 4.3 D Magnesium 1.8 Total Bilirubin 0.5 D AST 14 L D ALT 13 Alkaline Phosphatase 34 L Total Protein 5.3 L Albumin 1.6 L Blood Type O POSITIVE Antibody Screen Negative Crossmatch See Detail Active Medications Generic Name Dose Route Start Last Admin Trade Name Freq PRN Reason Stop Dose Admin Acetaminophen 650 mg 05/11/17 08:27 05/11/17 08:39 Tylenol Oral Solution - PO 650 mg Q6H PRN Administration FEVER OR PAIN Guaifenesin 10 ml 05/09/17 22:43 05/10/17 21:11 Robitussin Dm - PO 10 ml Q4H PRN Administration COUGH Heparin Sodium (Porcine) 5,000 unit 05/11/17 13:41 Heparin - IVPUSH PRN PRN Heparin Sodium (Porcine) 1,000 unit 05/11/17 13:41 05/12/17 15:52 Heparin - IVPUSH 1,000 unit PRN PRN Administration Meropenem 500 mg in 10 mls @ 120 mls/hr 05/09/17 12:30 05/13/17 09:10 Merrem (Restricted To Id) - IVPUSH 120 mls/hr BID [facility] Administration Heparin Sodium/Dextrose 25,000 units in 500 mls @ 20 mls/hr 05/11/17 13:45 06:14 Heparin Infusion - IVPB 1,200 units/hr TITR MALIK 24 mls/hr Protocol Administration 1,000 UNITS/HR Dextrose 1,000 mls @ 70 mls/hr 05/12/17 09:45 05/12/17 22:00 D5w - IV 70 mls/hr Q14H [facility] Administration Vancomycin HCl 1,250 mg/ 250 mls @ 166.667 mls/hr 05/13/17 15:00 Dextrose IVPB 05/13/17 16:29 ONCE ONE Protocol Lidocaine/Aluminum/Magnesium/Simeth 5 ml 05/11/17 08:00 05/13/17 13:49 Magic Mouthwash *Sjr Formula* - MM 5 ml Q6HPO [facility] Administration Metoprolol Succinate 50 mg 05/11/17 13:45 05/13/17 13:49 Toprol Xl - PO Not Given BID [facility] Nystatin 500,000 units 05/11/17 08:00 05/13/17 12:31 Nystatin Oral Suspension - PO 500,000 units Q6HPO [facility] Administration Pantoprazole Sodium 40 mg 05/09/17 05:30 05/13/17 09:10 Protonix - PO 40 mg DAILY [facility] Administration ASSESSMENT/PLAN: Neuro: - AMS -> resolved - A&Ox3 CV: - HTN and a-fib - Resuming beta-blockers - Continue heparin and toprol Pulm: - LLL infiltrate - Continue meropenem - Would appreciate ID recs as WBC has continuted to increase - Will repeat CXR Renal: - Hypernatremic @ 150 - Place on D5W drip - Seen by nephro, consult appreciated : - Recent UA indicates no UTI GI: - None ID: - Will continue meropenem - Will add vancomycin Hem/Onc: - WBC count has increased to 35.0; differential can include: C.diff, leukemia. Patient has no diarrhea but will send smear, LDH, and haptoglobin. - Hgb was 6.6. 1 unit given. Will repeat CBC. Endocrine: - None PPX: - DVT: heparin FEN (Fluids, electrolytes, nutrition): - Puree diet Dispo: - Remain in ICU to control infection and monitor closely Visit type - Emergency Visit Emergency Visit: Yes ED Registration Date: 05/08/17 Care time: The patient presented to the Emergency Department on the above date and was hospitalized for further evaluation of their emergent condition. - New Patient This patient is new to me today: Yes Date on this admission: 05/27/17 - Critical Care Critical Care patient: Yes Total Critical Care Time (in minutes): 40 Critical Care Statement: The care of this patient involved high complexity decision making to prevent further life threatening deterioration of the patient 's condition and/or to evaluate & treat vital organ system(s) failure or risk of failure.
[2017-05-13] MEDS: DEXTROSE 5%-WATER - 1,000 ML IV SCH (15:38)
[2017-05-13 16:12] LABS: MCH 28.8 pg (25.7-33.7); MCHC 32.7 g/dl (32.0-36.0); MEAN CELL VOLUME 88.1 fl (80-96); MEAN PLT VOLUME 9.1 fl (7.5-11.1); PLATELET COUNT 285 K/MM3 (134-434); RDW 14.5 % (11.6-15.6)
[2017-05-13] MEDS: ACETAMINOPHEN 650 MG/20.3 ML ORAL SOLUTION (CUPS) PO PRN (17:19)
[2017-05-13 18:16] LABS: NUCLEATED RED BLOOD CELL 20 % (0-0)
[2017-05-13 18:18] LABS: TOTAL CELLS COUNTED 100; WHITE BLOOD COUNT 33.9 K/mm3 (4.0-10.0)
[2017-05-13 18:19] LABS: PLATELET ESTIMATE ADEQUATE; REACTIVE LYMPHOCYTES 3 % (0-80)
[2017-05-13 18:20] LABS: METAMYELOCYTE 3 % (0-2)
[2017-05-13 18:21] LABS: MYELOCYTE 5 % (0-2)
[2017-05-13 19:16] LABS: AMIODARONE None Detected ug/mL (1.0-2.5); NORAMIODARONE None Detected ug/mL (1.0-2.5)
[2017-05-14] MEDS: NYSTATIN 500,000 UNITS/5 ML SUSPENSION PO SCH ×4 (00:22→18:22)
[2017-05-14] MEDS: MAG HYDROX/ALH/SMC/DPHA/LIDO 240 ML MOUTHWASH MM SCH ×4 (00:22→18:23)
[2017-05-14] MEDS: guaiFENesin/D-METHORPHAN HB 10 ML UNIT-DOSE CUPS PO PRN (00:30)
[2017-05-14] MEDS: DEXTROSE 5%-WATER - 1,000 ML IV SCH ×5 (03:45→22:51)
[2017-05-14] MEDS: HEPARIN INFUSION - 25,000 UNITS/500 ML INFUS.BAG IVPB SCH ×3 (04:00→20:51)
[2017-05-14 06:44] LABS: MCH 30.2 pg (25.7-33.7); MCHC 33.5 g/dl (32.0-36.0); MEAN PLT VOLUME 9.3 fl (7.5-11.1); PLATELET COUNT 290 K/MM3 (134-434); RDW 14.5 % (11.6-15.6)
[2017-05-14 07:04] LABS: WHITE BLOOD COUNT 31.6 K/mm3 (4.0-10.0)
[2017-05-14 07:06] LABS: INR 1.46 (0.82-1.09); PROTHROMBIN TIME (PATIENT) 16.5 SEC (9.98-11.88)
[2017-05-14 07:31] LABS: ALBUMIN 1.6 g/dl (3.4-5.0); ALK PHOS 44 U/L (45-117); ANION GAP 7 (8-16); BILIRUBIN,TOTAL 0.5 mg/dL (0.2-1.0); CO2 22 mmol/L (21-32); CREATININE 1.8 mg/dL (0.55-1.02); GLUCOSE,RANDOM 105 mg/dL (74-106); LDH 296 U/L (84-246); MAGNESIUM 1.8 mg/dL (1.8-2.4); PHOSPHOROUS 4.7 mg/dL (2.5-4.9); SGOT/AST 15 U/L (15-37); SGPT/ALT 15 U/L (12-78); TOT PROT 5.6 g/dl (6.4-8.2)
[2017-05-14 08:49] LABS: METAMYELOCYTE 5 % (0-2); MYELOCYTE 1 % (0-2); NUCLEATED RED BLOOD CELL 21 % (0-0); PLATELET ESTIMATE ADEQUATE; TOTAL CELLS COUNTED 100
[2017-05-14] MEDS ORDERED: PT OWN MED DRAWER 7, Y5N ONE (09:35)
[2017-05-14] MEDS: MEROPENEM 500 MG PUSH 500 MG/10 ML DISP.SYRIN IVPUSH SCH ×2 (09:37→22:51)
[2017-05-14] MEDS: METOPROLOL SUCCINATE 50 MG TAB.SR.24H (FP) PO SCH ×2 (09:38→22:50)
[2017-05-14] MEDS: PANTOPRAZOLE 40 MG TABLET (FP) PO SCH (09:38)
--- NOTE | 2017-05-14 11:36 | PN ---
Progress Note (short form) - Note Progress Note: Renal Follow up for EMANUEL Pt seen and examine in the ICU awake and alert on NC O2 no acute complaints + cough, no chest pain, sob, N/V/D Vital Signs Temperature 97.6 F 05/14/17 10:00 Pulse Rate 104 H 05/14/17 11:23 Respiratory Rate 17 05/14/17 11:23 Blood Pressure 103/65 05/14/17 11:23 O2 Sat by Pulse Oximetry (%) 98 05/14/17 08:00 Intake & Output 05/11/17 05/12/17 05/13/17 05/14/17 23:59 23:59 23:59 23:59 Intake Total 2192 3082 3792 992 Output Total 2300 3300 2100 900 Balance -108 -218 1692 92 Weight 107.139 kg 107.32 kg 109.5 kg 110.903 kg NAD awake and alert RRR CTA (anterior exam) No LE edema CBC, BMP 05/14/17 06:00 05/14/17 06:00 Laboratory Tests 05/12/17 05/14/17 05:00 06:00 Calcium 8.4 L 8.0 L Phosphorus 4.7 Magnesium 1.8 Albumin 1.6 L Current Medications Acetaminophen (Tylenol Oral Solution -) 650 mg PO Q6H PRN PRN Reason: FEVER OR PAIN Last Admin: 05/13/17 17:19 Dose: 650 mg Guaifenesin (Robitussin Dm -) 10 ml PO Q4H PRN PRN Reason: COUGH Last Admin: 05/14/17 00:30 Dose: 10 ml Heparin Sodium (Porcine) (Heparin -) 5,000 unit IVPUSH PRN PRN Heparin Sodium (Porcine) (Heparin -) 1,000 unit IVPUSH PRN PRN Last Admin: 05/12/17 15:52 Dose: 1,000 unit Meropenem (Merrem (Restricted To Id) -) 500 mg in 10 mls @ 120 mls/hr IVPUSH BID [facility] Last Admin: 05/14/17 09:37 Dose: 120 mls/hr Heparin Sodium/Dextrose (Heparin Infusion -) 25,000 units in 500 mls @ 20 mls/ hr IVPB TITR MALIK; 1,000 UNITS/HR PRN Reason: Protocol Last Titration: 05/14/17 08:40 Dose: 1,100 units/hr, 22 mls/hr Dextrose (D5w -) 1,000 mls @ 70 mls/hr IV Q14H [facility] Last Admin: 05/14/17 05:26 Dose: 70 mls/hr Lidocaine/Aluminum/Magnesium/Simeth (Magic Mouthwash *Sjr Formula* -) 5 ml MM Q6HPO [facility] Last Admin: 05/14/17 05:25 Dose: 5 ml Metoprolol Succinate (Toprol Xl -) 50 mg PO BID [facility] Last Admin: 05/14/17 09:38 Dose: 50 mg Nystatin (Nystatin Oral Suspension -) 500,000 units PO Q6HPO [facility] Last Admin: 05/14/17 05:25 Dose: 500,000 units Pantoprazole Sodium (Protonix -) 40 mg PO DAILY [facility] Last Admin: 05/14/17 09:38 Dose: 40 mg 86 year old woman with PMhx of Afib, Arrythmia s/p Cardioversion, CAD, Hypertension, HLD, COPD, Ischemic Colitis, mild CKD (Cr 1.6-1.8 in the EMR) who presented with SOB and found to have Sepsis secondary to PNA with EMANUEL with Cr of 5. #Acute on Chronic Renal Insufficiency in setting fo Sepsis/PNA with preserved tubular function secondary to hemadynamic injury from Sepsis + ARB Renal function near baseline at this time pt is non-oliguric pt with rales, effusions on CXR can give Lasix IV as needed for volume overload continue D5W, can reduce rate #Sepsis syndrome with PNA ICU care Abx as per ID O2 as needed #Hx of Hypertension, now hypotensive Keep MAP > 65 hold antihypertensives #Anemia/Eiosinophilia getting prbc transfusion today f/u urine eios #Hypernatremia start D5W serum Na improving #Lactic acidosis, now improved continue fluids keep MAP > 65 Alex Diaz DO
--- NOTE | 2017-05-14 12:45 | PN ---
Teaching Attending Note Name of Resident: Vega Carlos ATTENDING PHYSICIAN STATEMENT I saw and evaluated the patient. I reviewed the resident's note and discussed the case with the resident. I agree with the resident's findings and plan as documented. SUBJECTIVE: Pt seen and examined in the ICU. Much more alert, awake today. No fevers or chills. Reports nonproductive cough. She reports diarrhea but no episodes per nursing. OBJECTIVE: Last Vital Signs Temp Pulse Resp BP Pulse Ox 97.7 F 77 19 88/65 98 05/14/17 12:00 05/14/17 12:00 05/14/17 12:00 05/14/17 12:00 05/14/17 08:00 Intake & Output 05/11/17 05/12/17 05/13/17 05/14/17 23:59 23:59 23:59 23:59 Intake Total 2192 3082 3792 992 Output Total 2300 3300 2100 900 Balance -108 -218 1692 92 Weight 236 lb 3.2 oz 236 lb 9.6 oz 241 lb 6.499 oz 244 lb 8 oz Gen: more alert, awake Heart: irregularly irregular Lung: decreased breath sounds at the bases Abd: soft, nontender Ext: no edema CBC, BMP 05/14/17 06:00 05/14/17 06:00 Active Medications Acetaminophen (Tylenol Oral Solution -) 650 mg PO Q6H PRN PRN Reason: FEVER OR PAIN Last Admin: 05/13/17 17:19 Dose: 650 mg Guaifenesin (Robitussin Dm -) 10 ml PO Q4H PRN PRN Reason: COUGH Last Admin: 05/14/17 00:30 Dose: 10 ml Heparin Sodium (Porcine) (Heparin -) 5,000 unit IVPUSH PRN PRN Heparin Sodium (Porcine) (Heparin -) 1,000 unit IVPUSH PRN PRN Last Admin: 05/12/17 15:52 Dose: 1,000 unit Meropenem (Merrem (Restricted To Id) -) 500 mg in 10 mls @ 120 mls/hr IVPUSH BID [facility] Last Admin: 05/14/17 09:37 Dose: 120 mls/hr Heparin Sodium/Dextrose (Heparin Infusion -) 25,000 units in 500 mls @ 20 mls/ hr IVPB TITR MALIK; 1,000 UNITS/HR PRN Reason: Protocol Last Titration: 05/14/17 08:40 Dose: 1,100 units/hr, 22 mls/hr Dextrose (D5w -) 1,000 mls @ 70 mls/hr IV Q14H [facility] Last Admin: 05/14/17 05:26 Dose: 70 mls/hr Lidocaine/Aluminum/Magnesium/Simeth (Magic Mouthwash *Sjr Formula* -) 5 ml MM Q6HPO [facility] Last Admin: 05/14/17 05:25 Dose: 5 ml Metoprolol Succinate (Toprol Xl -) 50 mg PO BID [facility] Last Admin: 05/14/17 09:38 Dose: 50 mg Nystatin (Nystatin Oral Suspension -) 500,000 units PO Q6HPO [facility] Last Admin: 05/14/17 05:25 Dose: 500,000 units Pantoprazole Sodium (Protonix -) 40 mg PO DAILY [facility] Last Admin: 05/14/17 09:38 Dose: 40 mg ASSESSMENT AND PLAN: r/o Pneumonia Septic Shock resolved Acute Kidney Injury Toxic Metabolic Encephalopathy Atrial Fibrillation Obesity Anemia - continue antibiotics per ID - reculture if febrile - monitor H/H - rate control - continue anticoagulation - IVF - monitor urine output, creatinine - establish peripheral access and d/c central line - d/c barroso catheter - PO as tolerated - DVT prophylaxis - can monitor on floor critical care time spent in reviewing chart, evaluating patient and formulating plan 35 min
--- NOTE | 2017-05-14 13:07 | PN ---
Physical Exam: SUBJECTIVE: The patient is an 86F with a PMH of a-fib (s/p ablation and cardioversion last week), DM, systolic CHF, COPD, CAD, CKD stage 3 who presented to the ED for OLIVER and confusion from a intermediate. She was found to have a LLL infiltrate and started on meropenem. The patient is complaining of a sore throat that has continued since her endoscopy procedure but states that it has improved even more so today. Otherwise has no acute complaints and is resting comfortably in bed. No overnight events. The patient states that she has been having diarrhea. When I asked the nurse, the nurse denies the patient having diarrhea. OBJECTIVE: Vital Signs Period Temp Pulse Resp BP Sys/Rodriguez Pulse Ox Last 24 Hr 97.2 F-97.8 F 77-122 15-24 88-118/59-92 98-98 GENERAL: The patient is awake, alert, and fully oriented, in no acute distress. HEAD: Normal with no signs of trauma. EYES: PERRL, extraocular movements intact, sclera anicteric, conjunctiva clear. No ptosis. NECK: Trachea midline, full range of motion, supple. LUNGS: Breath sounds equal, clear to auscultation bilaterally, no wheezes, no crackles, no accessory muscle use. HEART: Regular rate and rhythm, S1, S2 without murmur, rub or gallop. ABDOMEN: Soft, nontender, nondistended, normoactive bowel sounds, no guarding, no rebound, no hepatosplenomegaly, no masses. EXTREMITIES: 2+ pulses, warm, well-perfused, no edema. NEUROLOGICAL: Cranial nerves II through XII grossly intact. Normal speech, gait not observed. PSYCH: Normal mood, normal affect. SKIN: Warm, dry, normal turgor, no rashes or lesions noted Laboratory Results - last 24 hr 05/08/17 05/10/17 05/11/17 20:50 06:00 11:40 WBC Corrected WBC (auto) RBC Hgb Hct MCV MCH MCHC RDW Plt Count MPV Total Counted Neutrophils % Neutrophils % (Manual) Band Neutrophils % Lymphocytes % Lymphocytes % (Manual) Monocytes % (Manual) Eosinophils % (Manual) Basophils % (Manual) Myelocytes % (Man) Nucleated RBC % Metamyelocytes Platelet Estimate Platelet Comment PT with INR INR PTT (Actin FS) Sodium Potassium Chloride Carbon Dioxide Anion Gap BUN Creatinine Creat Clearance w eGFR POC Glucometer [phone] Random Glucose Calcium Phosphorus Magnesium Total Bilirubin AST ALT Alkaline Phosphatase LD Total Total Protein Albumin Urine Eosinophils None seen Stool Occult Blood Vancomycin Pre-Dose Amiodarone None detected Noramiodarone None detected 05/13/17 05/13/17 05/14/17 15:30 18:00 05:10 WBC 33.9 H* Corrected WBC (auto) 28.25 RBC 2.86 L D Hgb 8.2 L D Hct 25.2 L D MCV 88.1 MCH 28.8 MCHC 32.7 RDW 14.5 Plt Count 285 MPV 9.1 Total Counted 100 Neutrophils % Neutrophils % (Manual) 58.0 Band Neutrophils % 6.0 Lymphocytes % Lymphocytes % (Manual) 12.0 D Monocytes % (Manual) 6 Eosinophils % (Manual) 8.0 H Basophils % (Manual) Myelocytes % (Man) 5 H D Nucleated RBC % 20 H* Metamyelocytes 3 H D Platelet Estimate Adequate Platelet Comment PT with INR INR PTT (Actin FS) 96.9 H D Sodium Potassium Chloride Carbon Dioxide Anion Gap BUN Creatinine Creat Clearance w eGFR POC Glucometer Random Glucose Calcium Phosphorus Magnesium Total Bilirubin AST ALT Alkaline Phosphatase LD Total Total Protein Albumin Urine Eosinophils Stool Occult Blood Negative Vancomycin Pre-Dose Amiodarone Noramiodarone 05/14/17 05/14/17 05/14/17 06:00 06:00 06:00 WBC Corrected WBC (auto) RBC Hgb Hct MCV MCH MCHC RDW Plt Count MPV Total Counted Neutrophils % Neutrophils % (Manual) Band Neutrophils % Lymphocytes % Lymphocytes % (Manual) Monocytes % (Manual) Eosinophils % (Manual) Basophils % (Manual) Myelocytes % (Man) Nucleated RBC % Metamyelocytes Platelet Estimate Platelet Comment PT with INR 16.50 H INR 1.46 H PTT (Actin FS) Sodium 144 Potassium 4.0 Chloride 115 H Carbon Dioxide 22 Anion Gap 7 L BUN 40 H Creatinine 1.8 H Creat Clearance w eGFR 26.62 POC Glucometer Random Glucose 105 Calcium 8.0 L Phosphorus 4.7 Magnesium 1.8 Total Bilirubin 0.5 AST 15 ALT 15 Alkaline Phosphatase 44 L D LD Total 296 H Total Protein 5.6 L Albumin 1.6 L Urine Eosinophils Stool Occult Blood Vancomycin Pre-Dose 13.817 H Amiodarone Noramiodarone 05/14/17 06:00 WBC 31.6 H* Corrected WBC (auto) 26.12 RBC 2.78 L Hgb 8.4 L Hct 25.0 L MCV 90.0 MCH 30.2 MCHC 33.5 RDW 14.5 Plt Count 290 MPV 9.3 Total Counted 100 Neutrophils % No Result Required. Neutrophils % (Manual) 60.0 Band Neutrophils % 1.0 Lymphocytes % No Result Required. Lymphocytes % (Manual) 17.0 D Monocytes % (Manual) 8 Eosinophils % (Manual) 7.0 H Basophils % (Manual) 1.0 D Myelocytes % (Man) 1 D Nucleated RBC % 21 H* Metamyelocytes 5 H D Platelet Estimate Adequate Platelet Comment PT with INR INR PTT (Actin FS) Sodium Potassium Chloride Carbon Dioxide Anion Gap BUN Creatinine Creat Clearance w eGFR POC Glucometer Random Glucose Calcium Phosphorus Magnesium Total Bilirubin AST ALT Alkaline Phosphatase LD Total Total Protein Albumin Urine Eosinophils Stool Occult Blood Vancomycin Pre-Dose Amiodarone Noramiodarone Active Medications Generic Name Dose Route Start Last Admin Trade Name Freq PRN Reason Stop Dose Admin Acetaminophen 650 mg 05/11/17 08:27 05/13/17 17:19 Tylenol Oral Solution - PO 650 mg Q6H PRN Administration FEVER OR PAIN Guaifenesin 10 ml 05/09/17 22:43 05/14/17 00:30 Robitussin Dm - PO 10 ml Q4H PRN Administration COUGH Heparin Sodium (Porcine) 5,000 unit 05/11/17 13:41 Heparin - IVPUSH PRN PRN Heparin Sodium (Porcine) 1,000 unit 05/11/17 13:41 05/12/17 15:52 Heparin - IVPUSH 1,000 unit PRN PRN Administration Meropenem 500 mg in 10 mls @ 120 mls/hr 05/09/17 12:30 05/14/17 09:37 Merrem (Restricted To Id) - IVPUSH 120 mls/hr BID [facility] Administration Heparin Sodium/Dextrose 25,000 units in 500 mls @ 20 mls/hr 05/11/17 13:45 08:40 Heparin Infusion - IVPB 1,100 units/hr TITR [facility] 22 mls/hr Protocol Titration 1,000 UNITS/HR Dextrose 1,000 mls @ 70 mls/hr 05/12/17 09:45 05/14/17 05:26 D5w - IV 70 mls/hr Q14H [facility] Administration Lidocaine/Aluminum/Magnesium/Simeth 5 ml 05/11/17 08:00 05/14/17 05:25 Magic Mouthwash *Sjr Formula* - MM 5 ml Q6HPO [facility] Administration Metoprolol Succinate 50 mg 05/11/17 13:45 05/14/17 09:38 Toprol Xl - PO 50 mg BID [facility] Administration Nystatin 500,000 units 05/11/17 08:00 05/14/17 05:25 Nystatin Oral Suspension - PO 500,000 units Q6HPO [facility] Administration Pantoprazole Sodium 40 mg 05/09/17 05:30 05/14/17 09:38 Protonix - PO 40 mg DAILY [facility] Administration ASSESSMENT/PLAN: Neuro: - AMS -> resolved - A&Ox3 CV: - HTN and a-fib - Resuming beta-blockers - Continue heparin and toprol Pulm: - LLL infiltrate - Continue meropenem - Would appreciate ID recs as WBC has continuted to increase - CXR shows decreased infiltrate Renal: - Hypernatremic @ 150 - Place on D5W drip - Seen by nephro, consult appreciated : - Recent UA indicates no UTI GI: - None ID: - Will continue meropenem - Will add vancomycin Hem/Onc: - WBC count decreased to 31.6 from 35.0. Will continue abx. - Nucleated RBC's decreased to 21% from 25% - Pending haptoglobin and smear - Hgb stable at 8.4 - LDH: 296 Endocrine: - None PPX: - DVT: heparin FEN (Fluids, electrolytes, nutrition): - Puree diet Dispo: - Transfer to med/surg Visit type - Emergency Visit Emergency Visit: Yes ED Registration Date: 05/08/17 Care time: The patient presented to the Emergency Department on the above date and was hospitalized for further evaluation of their emergent condition. - New Patient This patient is new to me today: No - Critical Care Critical Care patient: Yes Total Critical Care Time (in minutes): 40 Critical Care Statement: The care of this patient involved high complexity decision making to prevent further life threatening deterioration of the patient 's condition and/or to evaluate & treat vital organ system(s) failure or risk of failure.
--- NOTE | 2017-05-14 17:41 | PN ---
Progress Note (short form) - Note Progress Note: 86 year old AA female with sepsis, new onset atrial fib. with controlled ventricular response Chronic UTI, persistent leukocytosis. Patient is lethargic, no chest pain or discomfort, no SOB reported. Had further drop in HCT requiring blood transfusion. No chills or fever and remains afebrile. Active Medications Generic Name Dose Route Start Last Admin Trade Name Freq PRN Reason Stop Dose Admin Acetaminophen 650 mg 05/11/17 08:27 05/13/17 17:19 Tylenol Oral Solution - PO 650 mg Q6H PRN Administration FEVER OR PAIN Guaifenesin 10 ml 05/09/17 22:43 05/14/17 00:30 Robitussin Dm - PO 10 ml Q4H PRN Administration COUGH Heparin Sodium (Porcine) 5,000 unit 05/11/17 13:41 Heparin - IVPUSH PRN PRN Heparin Sodium (Porcine) 1,000 unit 05/11/17 13:41 05/12/17 15:52 Heparin - IVPUSH 1,000 unit PRN PRN Administration Meropenem 500 mg in 10 mls @ 120 mls/hr 05/09/17 12:30 05/14/17 09:37 Merrem (Restricted To Id) - IVPUSH 120 mls/hr BID MALIK Administration Heparin Sodium/Dextrose 25,000 units in 500 mls @ 20 mls/hr 05/11/17 13:45 13:45 Heparin Infusion - IVPB 1,100 units/hr TITR MALIK 22 mls/hr Protocol Administration 1,000 UNITS/HR Dextrose 1,000 mls @ 70 mls/hr 05/12/17 09:45 05/14/17 13:45 D5w - IV 70 mls/hr Q14H MALIK Administration Lidocaine/Aluminum/Magnesium/Simeth 5 ml 05/11/17 08:00 05/14/17 12:30 Magic Mouthwash *Sjr Formula* - MM 5 ml Q6HPO MALIK Administration Metoprolol Succinate 50 mg 05/11/17 13:45 05/14/17 09:38 Toprol Xl - PO 50 mg BID MALIK Administration Nystatin 500,000 units 05/11/17 08:00 05/14/17 12:30 Nystatin Oral Suspension - PO 500,000 units Q6HPO MALIK Administration Pantoprazole Sodium 40 mg 05/09/17 05:30 05/14/17 09:38 Protonix - PO 40 mg DAILY MALIK Administration 86 year old confused female, slightly aggitated, Last Vital Signs Temp Pulse Resp BP Pulse Ox 98.1 F 82 20 100/52 98 05/14/17 16:00 05/14/17 16:00 05/14/17 16:00 05/14/17 16:00 05/14/17 08:00 Neck: supple, no JVD, Carotids are equal. HEART: PMI was in the 5th ICS, distant heart sounds, no murmur or gallop appreciated. LUNGS:Clear on auscultation. ABDOMEN:Obese, nontender, no organomegaly or palpable masses felt. EXTREMITIES:No calf tenderness or dependent edema. CBC, BMP 05/14/17 06:00 05/14/17 06:00 CBC WBC 31.6 K/mm3 (4.0-10.0) H* 05/14/17 06:00 Corrected WBC (auto) 26.12 K/mm3 05/14/17 06:00 RBC 2.78 M/mm3 (3.60-5.2) L 05/14/17 06:00 Hgb 8.4 GM/dL (10.7-15.3) L 05/14/17 06:00 Hct 25.0 % (32.4-45.2) L 05/14/17 06:00 MCV 90.0 fl (80-96) 05/14/17 06:00 MCH 30.2 pg (25.7-33.7) 05/14/17 06:00 MCHC 33.5 g/dl (32.0-36.0) 05/14/17 06:00 RDW 14.5 % (11.6-15.6) 05/14/17 06:00 Plt Count 290 K/MM3 (134-434) 05/14/17 06:00 MPV 9.3 fl (7.5-11.1) 05/14/17 06:00 Total Counted 100 05/14/17 06:00 Neutrophils % No Result Required. 05/14/17 06:00 Neutrophils % (Manual) 60.0 % (42.8-82.8) 05/14/17 06:00 Band Neutrophils % 1.0 % 05/14/17 06:00 Lymphocytes % No Result Required. 05/14/17 06:00 Lymphocytes % (Manual) 17.0 % (8-40) D 05/14/17 06:00 Monocytes % 6.0 % (3.8-10.2) D 05/10/17 06:00 Monocytes % (Manual) 8 % (3.8-10.2) 05/14/17 06:00 Eosinophils % 14.9 % (0-4.5) H D 05/10/17 06:00 Eosinophils % (Manual) 7.0 % (0-4.5) H 05/14/17 06:00 Basophils % 0.4 % (0-2.0) 05/10/17 06:00 Basophils % (Manual) 1.0 % (0-2.0) D 05/14/17 06:00 Myelocytes % (Man) 1 % (0-2) D 05/14/17 06:00 Nucleated RBC % 21 % (0-0) H* 05/14/17 06:00 Metamyelocytes 5 % (0-2) H D 05/14/17 06:00 Platelet Estimate Adequate 05/14/17 06:00 Platelet Comment 05/13/17 15:30 A: 1. New onset atrial fib. with controlled ventricular response.. 2. Chronic drug resistent UTI. 3. COPD. 4. New onset atrial fibrillation with rapid ventricular response. 5. Hypertension. 6. CAD, angina pectoris. 7. Leukocytosis, anemia and nucleated RBCs, etiology needs to be determined: a). Myelodysplastic syndrome needs exclusion. b). Leukemia. 8. CKD. RECOMMENDATION: 1. Evaluation of anemia before oral anticoagulation. 2. Revaluation of persistant leukocytosis 3. BNP. 4. Hematological consult
--- NOTE | 2017-05-14 18:34 | PN ---
Progress Note, Physician History of Present Illness: patient stable feeling much better - Current Medication List Current Medications: Active Medications Acetaminophen (Tylenol Oral Solution -) 650 mg PO Q6H PRN PRN Reason: FEVER OR PAIN Last Admin: 05/13/17 17:19 Dose: 650 mg Guaifenesin (Robitussin Dm -) 10 ml PO Q4H PRN PRN Reason: COUGH Last Admin: 05/14/17 00:30 Dose: 10 ml Heparin Sodium (Porcine) (Heparin -) 5,000 unit IVPUSH PRN PRN Heparin Sodium (Porcine) (Heparin -) 1,000 unit IVPUSH PRN PRN Last Admin: 05/12/17 15:52 Dose: 1,000 unit Meropenem (Merrem (Restricted To Id) -) 500 mg in 10 mls @ 120 mls/hr IVPUSH BID [facility] Last Admin: 05/14/17 09:37 Dose: 120 mls/hr Heparin Sodium/Dextrose (Heparin Infusion -) 25,000 units in 500 mls @ 20 mls/ hr IVPB TITR MALIK; 1,000 UNITS/HR PRN Reason: Protocol Last Admin: 05/14/17 13:45 Dose: 1,100 units/hr, 22 mls/hr Dextrose (D5w -) 1,000 mls @ 70 mls/hr IV Q14H [facility] Last Admin: 05/14/17 17:45 Dose: Not Given Lidocaine/Aluminum/Magnesium/Simeth (Magic Mouthwash *Sjr Formula* -) 5 ml MM Q6HPO [facility] Last Admin: 05/14/17 18:23 Dose: 5 ml Metoprolol Succinate (Toprol Xl -) 50 mg PO BID [facility] Last Admin: 05/14/17 09:38 Dose: 50 mg Nystatin (Nystatin Oral Suspension -) 500,000 units PO Q6HPO [facility] Last Admin: 05/14/17 18:22 Dose: 500,000 units Pantoprazole Sodium (Protonix -) 40 mg PO DAILY [facility] Last Admin: 05/14/17 09:38 Dose: 40 mg - Objective Vital Signs: Vital Signs Temperature 97.9 F 05/14/17 18:00 Pulse Rate 80 05/14/17 18:00 Respiratory Rate 20 05/14/17 18:00 Blood Pressure 106/57 05/14/17 18:00 O2 Sat by Pulse Oximetry (%) 98 05/14/17 08:00 Constitutional: Yes: No Distress, Calm Cardiovascular: Yes: Pulse Irregular, S1, S2 Respiratory: Yes: Regular, CTA Bilaterally, On Nasal O2 Gastrointestinal: Yes: Normal Bowel Sounds, Soft Musculoskeletal: Yes: WNL Extremities: Yes: WNL Neurological: Yes: Alert, Oriented Psychiatric: Yes: Alert, Oriented Labs: CBC, BMP 05/14/17 06:00 05/14/17 06:00 INR, PTT INR 1.46 (0.82-1.09) H 05/14/17 06:00 Assessment/Plan d Septic Shock EMANUEL Toxic Metabolic Encephalopathy PNA Obesity AFib Anemia Coagulopathy leukocytosis plan will continue meropenam resp support as per cardio close watch on heart rate rest as per icu cc time 40 min
--- NOTE | 2017-05-14 18:37 | PN ---
Progress Note, Physician History of Present Illness: patient feeling much better wbc still on the higher throat pain - Current Medication List Current Medications: Active Medications Acetaminophen (Tylenol Oral Solution -) 650 mg PO Q6H PRN PRN Reason: FEVER OR PAIN Last Admin: 05/13/17 17:19 Dose: 650 mg Guaifenesin (Robitussin Dm -) 10 ml PO Q4H PRN PRN Reason: COUGH Last Admin: 05/14/17 00:30 Dose: 10 ml Heparin Sodium (Porcine) (Heparin -) 5,000 unit IVPUSH PRN PRN Heparin Sodium (Porcine) (Heparin -) 1,000 unit IVPUSH PRN PRN Last Admin: 05/12/17 15:52 Dose: 1,000 unit Meropenem (Merrem (Restricted To Id) -) 500 mg in 10 mls @ 120 mls/hr IVPUSH BID [facility] Last Admin: 05/14/17 09:37 Dose: 120 mls/hr Heparin Sodium/Dextrose (Heparin Infusion -) 25,000 units in 500 mls @ 20 mls/ hr IVPB TITR MALIK; 1,000 UNITS/HR PRN Reason: Protocol Last Admin: 05/14/17 13:45 Dose: 1,100 units/hr, 22 mls/hr Dextrose (D5w -) 1,000 mls @ 70 mls/hr IV Q14H [facility] Last Admin: 05/14/17 17:45 Dose: Not Given Lidocaine/Aluminum/Magnesium/Simeth (Magic Mouthwash *Sjr Formula* -) 5 ml MM Q6HPO [facility] Last Admin: 05/14/17 18:23 Dose: 5 ml Metoprolol Succinate (Toprol Xl -) 50 mg PO BID [facility] Last Admin: 05/14/17 09:38 Dose: 50 mg Nystatin (Nystatin Oral Suspension -) 500,000 units PO Q6HPO [facility] Last Admin: 05/14/17 18:22 Dose: 500,000 units Pantoprazole Sodium (Protonix -) 40 mg PO DAILY [facility] Last Admin: 05/14/17 09:38 Dose: 40 mg - Objective Vital Signs: Vital Signs Temperature 97.9 F 05/14/17 18:00 Pulse Rate 80 05/14/17 18:00 Respiratory Rate 20 05/14/17 18:00 Blood Pressure 106/57 05/14/17 18:00 O2 Sat by Pulse Oximetry (%) 98 05/14/17 08:00 Constitutional: Yes: No Distress, Calm Cardiovascular: Yes: Tachycardia, Pulse Irregular, S1, S2 Respiratory: Yes: Regular, On Nasal O2, Poor Air Entry Gastrointestinal: Yes: Normal Bowel Sounds, Soft Musculoskeletal: Yes: WNL Extremities: Yes: WNL Neurological: Yes: Alert, Oriented Psychiatric: Yes: Alert Labs: CBC, BMP 05/14/17 06:00 05/14/17 06:00 INR, PTT INR 1.46 (0.82-1.09) H 05/14/17 06:00 Assessment/Plan d Septic Shock EMANUEL Toxic Metabolic Encephalopathy PNA Obesity AFib Anemia Coagulopathy leukocytosis patients wbc continues to be high i do not think that count is due to infection should be evaluated for high wbc plan will continue meropenam resp support as per cardio close watch on heart rate rest as per icu will start tapering abx cc time 40 min
--- NOTE | 2017-05-14 18:49 | PN ---
Progress Note, Physician Chief Complaint: Feels better History of Present Illness: Case discussed with ICU resident X ray chest shows more pulmonery congestion May need more diuresis - Current Medication List Current Medications: Active Medications Acetaminophen (Tylenol Oral Solution -) 650 mg PO Q6H PRN PRN Reason: FEVER OR PAIN Last Admin: 05/13/17 17:19 Dose: 650 mg Guaifenesin (Robitussin Dm -) 10 ml PO Q4H PRN PRN Reason: COUGH Last Admin: 05/14/17 00:30 Dose: 10 ml Heparin Sodium (Porcine) (Heparin -) 5,000 unit IVPUSH PRN PRN Heparin Sodium (Porcine) (Heparin -) 1,000 unit IVPUSH PRN PRN Last Admin: 05/12/17 15:52 Dose: 1,000 unit Meropenem (Merrem (Restricted To Id) -) 500 mg in 10 mls @ 120 mls/hr IVPUSH BID [facility] Last Admin: 05/14/17 09:37 Dose: 120 mls/hr Heparin Sodium/Dextrose (Heparin Infusion -) 25,000 units in 500 mls @ 20 mls/ hr IVPB TITR MALIK; 1,000 UNITS/HR PRN Reason: Protocol Last Admin: 05/14/17 13:45 Dose: 1,100 units/hr, 22 mls/hr Dextrose (D5w -) 1,000 mls @ 70 mls/hr IV Q14H [facility] Last Admin: 05/14/17 17:45 Dose: Not Given Lidocaine/Aluminum/Magnesium/Simeth (Magic Mouthwash *Sjr Formula* -) 5 ml MM Q6HPO [facility] Last Admin: 05/14/17 18:23 Dose: 5 ml Metoprolol Succinate (Toprol Xl -) 50 mg PO BID [facility] Last Admin: 05/14/17 09:38 Dose: 50 mg Nystatin (Nystatin Oral Suspension -) 500,000 units PO Q6HPO [facility] Last Admin: 05/14/17 18:22 Dose: 500,000 units Pantoprazole Sodium (Protonix -) 40 mg PO DAILY [facility] Last Admin: 05/14/17 09:38 Dose: 40 mg - Objective Vital Signs: Vital Signs Temperature 97.9 F 05/14/17 18:00 Pulse Rate 80 05/14/17 18:00 Respiratory Rate 20 05/14/17 18:00 Blood Pressure 106/57 05/14/17 18:00 O2 Sat by Pulse Oximetry (%) 98 05/14/17 08:00 Constitutional: Yes: Anxious Eyes: Yes: WNL HENT: Yes: WNL Neck: Yes: WNL Cardiovascular: Yes: Pulse Irregular Respiratory: Yes: Poor Air Entry, Rales Gastrointestinal: Yes: Normal Bowel Sounds ...Rectal Exam: Yes: Deferred Genitourinary: Yes: WNL Musculoskeletal: Yes: Muscle Weakness Edema: No Integumentary: Yes: WNL Neurological: Yes: Alert ...Motor Strength: WNL Labs: CBC, BMP 05/14/17 06:00 05/14/17 06:00 INR, PTT INR 1.46 (0.82-1.09) H 05/14/17 06:00 - ....Imaging Chest X-ray: Image Reviewed Assessment/Plan Continue as per ICU attending
[2017-05-14] MEDS ORDERED: SODIUM CHLORIDE 500 ML IV STA (18:59)
[2017-05-14] MEDS ORDERED: HEPARIN NA (PORCINE) 5,000 UNITS/ML 1ML VIAL IVPUSH PRN ×4 (18:59)
[2017-05-14] MEDS: ACETAMINOPHEN 650 MG/20.3 ML ORAL SOLUTION (CUPS) PO PRN (22:49)
[2017-05-15] MEDS: NYSTATIN 500,000 UNITS/5 ML SUSPENSION PO SCH ×5 (00:29→23:02)
[2017-05-15] MEDS: MAG HYDROX/ALH/SMC/DPHA/LIDO 240 ML MOUTHWASH MM SCH ×5 (00:30→23:02)
[2017-05-15] MEDS: DEXTROSE 5%-WATER - 1,000 ML IV SCH (07:51)
[2017-05-15 08:41] LABS: MCH 30.6 pg (25.7-33.7); MCHC 33.6 g/dl (32.0-36.0); MEAN CELL VOLUME 91.2 fl (80-96); MEAN PLT VOLUME 9.3 fl (7.5-11.1); PLATELET COUNT 284 K/MM3 (134-434); RDW 14.5 % (11.6-15.6)
[2017-05-15 09:02] LABS: INR 1.58 (0.82-1.09); PROTHROMBIN TIME (PATIENT) 17.8 SEC (9.98-11.88)
[2017-05-15 09:11] LABS: ALBUMIN 1.6 g/dl (3.4-5.0); ALK PHOS 36 U/L (45-117); ANION GAP 7 (8-16); BILIRUBIN,TOTAL 0.5 mg/dL (0.2-1.0); CALCIUM 7.7 mg/dL (8.5-10.1); CO2 21 mmol/L (21-32); CREATININE 1.6 mg/dL (0.55-1.02); GLUCOSE,RANDOM 107 mg/dL (74-106); LDH 259 U/L (84-246); MAGNESIUM 1.6 mg/dL (1.8-2.4); PHOSPHOROUS 4.2 mg/dL (2.5-4.9); SGOT/AST 10 U/L (15-37); SGPT/ALT 14 U/L (12-78); TOT PROT 5.2 g/dl (6.4-8.2)
[2017-05-15] MEDS ORDERED: FUROSEMIDE 40 MG/4 ML INJECTABLE VIAL IVPUSH ONE (10:00)
[2017-05-15 10:06] LABS: TOTAL CELLS COUNTED 100
[2017-05-15 10:08] LABS: METAMYELOCYTE 1 % (0-2); NUCLEATED RED BLOOD CELL 6 % (0-0); PLATELET ESTIMATE ADEQUATE
--- NOTE | 2017-05-15 11:00 | PN ---
Progress Note (short form) - Note Progress Note: PULMONARY AWAKE/ALERT " I HAD A CAT SCAN TODAY" VSS/AFEBRILE ANICTERIC/R IJ/MILLER SCATTERED MINIMAL B/L RHONCHI S1S2 IRREG BS+ LESS EDEMA LABS/MEDS/NOTES/IMAGES REVIEWED US ABD RESULT PENDING Septic Shock resolved left lower lobe pneumonia Acute Kidney Injury Toxic Metabolic Encephalopathy improved Atrial Fibrillation Obesity Anemia - antibiotics per ID - reculture as needed - monitor H/H - rate control - continue anticoagulation - IVF - monitor urine output, creatinine - establish peripheral access and d/c central line - PO as tolerated - DVT prophylaxis - continue to monitor closely - check abdominal ultrasound results Leno PINEDA MD
[2017-05-15] MEDS ORDERED: PT OWN MED DRAWER 7, Y5N ONE ×4 (11:15→23:01)
--- NOTE | 2017-05-15 11:17 | PN ---
Progress Note (short form) - Note Progress Note: Renal Follow up for EMANUEL Pt seen and examined at the bedside awake and alert had abd discomfort after her sonogram making urine no sob no cough Vital Signs Temperature 97.9 F 05/15/17 06:00 Pulse Rate 102 H 05/15/17 06:00 Respiratory Rate 20 05/15/17 06:00 Blood Pressure 110/73 05/15/17 06:00 O2 Sat by Pulse Oximetry (%) 98 05/14/17 21:00 Intake & Output 05/12/17 05/13/17 05/14/17 05/15/17 23:59 23:59 23:59 23:59 Intake Total 3082 3792 2500 1919 Output Total 3300 2100 1950 100 Balance -218 8620 537 9338 Weight 107.32 kg 109.5 kg 110.903 kg NAD awake and alert RRR CTA (anterior exam) No LE edema CBC, BMP 05/15/17 07:45 05/15/17 07:45 Current Medications Acetaminophen (Tylenol Oral Solution -) 650 mg PO Q6H PRN PRN Reason: FEVER OR PAIN Last Admin: 05/14/17 22:49 Dose: 650 mg Guaifenesin (Robitussin Dm -) 10 ml PO Q4H PRN PRN Reason: COUGH Heparin Sodium (Porcine) (Heparin -) 5,000 unit IVPUSH PRN PRN Heparin Sodium (Porcine) (Heparin -) 1,000 unit IVPUSH PRN PRN Dextrose (D5w -) 1,000 mls @ 70 mls/hr IV Q14H [facility] Last Admin: 05/15/17 07:51 Dose: Not Given Heparin Sodium/Dextrose (Heparin Infusion -) 25,000 units in 500 mls @ 20 mls/ hr IVPB TITR MALIK; 1,000 UNITS/HR PRN Reason: Protocol Last Admin: 05/14/17 20:51 Dose: Not Given Meropenem (Merrem (Restricted To Id) -) 500 mg in 10 mls @ 120 mls/hr IVPUSH BID [facility] Last Admin: 05/14/17 22:51 Dose: 120 mls/hr Lidocaine/Aluminum/Magnesium/Simeth (Magic Mouthwash *Sjr Formula* -) 5 ml MM Q6HPO [facility] Last Admin: 05/15/17 05:54 Dose: 5 ml Metoprolol Succinate (Toprol Xl -) 50 mg PO BID [facility] Last Admin: 05/14/17 22:50 Dose: 50 mg Nystatin (Nystatin Oral Suspension -) 500,000 units PO Q6HPO [facility] Last Admin: 05/15/17 05:54 Dose: 500,000 units Pantoprazole Sodium (Protonix -) 40 mg PO DAILY [facility] 86 year old woman with PMhx of Afib, Arrythmia s/p Cardioversion, CAD, Hypertension, HLD, COPD, Ischemic Colitis, mild CKD (Cr 1.6-1.8 in the EMR) who presented with SOB and found to have Sepsis secondary to PNA with EMANUEL with Cr of 5. #Acute on Chronic Renal Insufficiency in setting fo Sepsis/PNA with preserved tubular function secondary to hemadynamic injury from Sepsis + ARB Renal function now at baseline pt with signs of volume expansion and has been in postive balance, will give Lasix 40mg IV x 1 today Trend BUN/Cr Decrease IVF rate to 50cc per hour oral intake as tolerated no Horace/ARB at this tiem #Sepsis syndrome with PNA Abx as per ID O2 as needed #Hx of Hypertension, now hypotensive trend BUP #Hypernatremia start D5W serum Na improving Alex Diaz DO
[2017-05-15] MEDS: METOPROLOL SUCCINATE 50 MG TAB.SR.24H (FP) PO SCH ×2 (11:19→22:57)
[2017-05-15] MEDS: PANTOPRAZOLE 40 MG TABLET (FP) PO SCH (11:19)
[2017-05-15] MEDS: MEROPENEM 500 MG PUSH 500 MG/10 ML DISP.SYRIN IVPUSH SCH ×2 (11:20→22:56)
[2017-05-15] MEDS: HEPARIN INFUSION - 25,000 UNITS/500 ML INFUS.BAG IVPB SCH ×2 (11:44→14:52)
--- NOTE | 2017-05-15 11:52 | PN ---
Progress Note, Physician Chief Complaint: Feels better History of Present Illness: Admitted with sepsis ,pneumon and new on set Afib - Current Medication List Current Medications: Active Medications Acetaminophen (Tylenol Oral Solution -) 650 mg PO Q6H PRN PRN Reason: FEVER OR PAIN Last Admin: 05/14/17 22:49 Dose: 650 mg Guaifenesin (Robitussin Dm -) 10 ml PO Q4H PRN PRN Reason: COUGH Heparin Sodium (Porcine) (Heparin -) 5,000 unit IVPUSH PRN PRN Heparin Sodium (Porcine) (Heparin -) 1,000 unit IVPUSH PRN PRN Dextrose (D5w -) 1,000 mls @ 70 mls/hr IV Q14H [facility] Last Admin: 05/15/17 07:51 Dose: Not Given Heparin Sodium/Dextrose (Heparin Infusion -) 25,000 units in 500 mls @ 20 mls/ hr IVPB TITR MALIK; 1,000 UNITS/HR PRN Reason: Protocol Last Admin: 05/15/17 11:44 Dose: 1,100 units/hr, 22 mls/hr Meropenem (Merrem (Restricted To Id) -) 500 mg in 10 mls @ 120 mls/hr IVPUSH BID [facility] Last Admin: 05/15/17 11:20 Dose: 120 mls/hr Lidocaine/Aluminum/Magnesium/Simeth (Magic Mouthwash *Sjr Formula* -) 5 ml MM Q6HPO [facility] Last Admin: 05/15/17 05:54 Dose: 5 ml Metoprolol Succinate (Toprol Xl -) 50 mg PO BID [facility] Last Admin: 05/15/17 11:19 Dose: 50 mg Nystatin (Nystatin Oral Suspension -) 500,000 units PO Q6HPO [facility] Last Admin: 05/15/17 11:19 Dose: 500,000 units Pantoprazole Sodium (Protonix -) 40 mg PO DAILY [facility] Last Admin: 05/15/17 11:19 Dose: 40 mg - Objective Vital Signs: Vital Signs Temperature 97.9 F 05/15/17 06:00 Pulse Rate 102 H 05/15/17 06:00 Respiratory Rate 20 05/15/17 06:00 Blood Pressure 110/73 05/15/17 06:00 O2 Sat by Pulse Oximetry (%) 98 05/14/17 21:00 Constitutional: Yes: No Distress Eyes: Yes: WNL HENT: Yes: WNL Neck: Yes: WNL Cardiovascular: Yes: Pulse Irregular Respiratory: Yes: WNL, On Nasal O2 Gastrointestinal: Yes: WNL ...Rectal Exam: Yes: Deferred Musculoskeletal: Yes: Muscle Weakness Edema: No Neurological: Yes: Alert Labs: CBC, BMP 05/15/17 07:45 05/15/17 07:45 INR, PTT INR 1.58 (0.82-1.09) H 05/15/17 07:45 - ....Imaging Ultrasound: Report Reviewed MRI: Report Reviewed Assessment/Plan DC iv fluids Start coumadin DC barroso
--- NOTE | 2017-05-15 12:06 | CONSULT ---
Consult Consult Specialty:: hematology/oncology - History of Present Illness History of Present Illness: 86 year old woman with PMhx of Afib, Arrythmia s/p Cardioversion, CAD, Hypertension, HLD, COPD, Ischemic Colitis, CKD who presented with SOB and found to have Sepsis secondary to PNA also had EMANUEL Also was with new onset A fib. Was in the ICU until yesterday. Hematology consulted for leucoytosis Patient seen and examined. - History Source History Provided By: Patient, Medical Record Limitations to Obtaining History: Clinical Condition - Past Medical History Cardio/Vascular: Yes: CAD, HTN, Hyperlipdemia Pulmonary: Yes: COPD Gastrointestinal: Yes: Diverticulitis, Diverticulosis, Other (ischemic colitis, h/o colon polyps) - Past Surgical History Past Surgical History: Yes: None, Appendectomy, Colectomy (partial colectomy for perforation from ? diverticulitis/ischemic colitis), Hysterectomy (JW/BSO) - Alcohol/Substance Use Hx Alcohol Use: No History of Substance Use: reports: None - Smoking History Smoking history: Never smoked Have you smoked in the past 12 months: No Aproximately how many cigarettes per day: 0 If you are a former smoker, when did you quit?: many years - Social History Usual Living Arrangement: With Child ADL: Family Assistance History of Recent Travel: No Home Medications - Allergies Allergies/Adverse Reactions: Allergies Allergy/AdvReac Type Severity Reaction Status Date / Time Penicillins Allergy Verified 05/08/17 20:51 procaine Allergy Verified 05/08/17 20:52 - Home Medications Home Medications: Ambulatory Orders Ascorbic Acid [Vitamin C with Barbara Hips] 500 mg PO DAILY 01/18/17 Aspirin [ASA -] 81 mg PO DAILY 01/18/17 Cholecalciferol (Vitamin D3) [Vitamin D3] 5,000 unit PO DAILY 01/18/17 Diltiazem HCl [Cartia Xt] 240 mg PO DAILY 01/18/17 Isosorbide Mononitrate [Isosorbide Mononitrate ER] 30 mg PO DAILY 01/18/17 Losartan Potassium 50 mg PO DAILY 01/18/17 Ranitidine [Zantac -] 150 mg PO DAILY 01/18/17 Albuterol 0.083% Nebulizer Madhavi [Ventolin 0.083% Nebulizer Soln -] 1 neb NEB Q6H 04/21/17 Albuterol Sulfate [Proair Respiclick] 90 mcg IH DAILY 04/21/17 Promethazine HCl [Phenergan Plain 6.25 MG/5 ML -] 10 ml PO TID 04/21/17 Nitrofurantoin Macrocrystal [Nitrofurantoin] 100 mg PO BID 04/22/17 Oxycodone HCl [Roxicodone -] 5 mg PO Q6H PRN 04/22/17 Amiodarone HCl [Cordarone -] 200 mg PO BID tablet 05/05/17 Ascorbic Acid [Vitamin C -] 500 mg PO DAILY tablet 05/05/17 Aspirin [ASA -] 81 mg PO DAILY tab.chew 05/05/17 Cholecalciferol (Vitamin D3) [Vitamin D3 -] 5,000 unit PO DAILY tab 05/05/17 Guaifenesin [Robitussin -] 10 ml PO Q6H PRN cup 05/05/17 Isosorbide Mononitrate [Imdur -] 30 mg PO DAILY tab.sr.24h 05/05/17 Losartan Potassium [Cozaar -] 50 mg PO DAILY tablet 05/05/17 Metoprolol Succinate [Toprol XL -] 50 mg PO BID tab.sr.24h 05/05/17 Oxycodone HCl [Roxicodone -] 5 mg PO Q6H PRN tablet MDD 20 05/05/17 Ranitidine [Zantac -] 150 mg PO DAILY tablet 05/05/17 Salmeterol/Fluticasone [Advair 100Mcg/50Mcg -] 1 puff IH BID inhaler 05/05/17 Family Disease History - Family Disease History Family Disease History: CA: Son (colon ca) Review of Systems - Review of Systems Constitutional: denies: Chills, Diaphoresis, Fever, Lethargy Eyes: denies: Blind Spots, Blurred Vision HENT: denies: Difficult Swallowing Neck: denies: Decreased ROM, Lumps, Pain on Movement Cardiovascular: denies: Chest Pain, Palpitations, Shortness of Breath Respiratory: denies: Cough Gastrointestinal: denies: Abdominal Pain Neurological: reports: No Symptoms Endocrine: reports: No Symptoms Physical Exam Vital Signs: Vital Signs Temperature 97.9 F 05/15/17 06:00 Pulse Rate 102 H 05/15/17 06:00 Respiratory Rate 20 05/15/17 06:00 Blood Pressure 110/73 05/15/17 06:00 O2 Sat by Pulse Oximetry (%) 98 05/14/17 21:00 Constitutional: Yes: Well Nourished, No Distress HENT: Yes: Atraumatic, Normocephalic Neck: Yes: Supple, Trachea Midline Cardiovascular: Yes: Pulse Irregular Respiratory: Yes: Regular, CTA Bilaterally Gastrointestinal: Yes: Normal Bowel Sounds, Soft, Abdomen, Obese Extremities: Yes: WNL Edema: No Labs: CBC, BMP 05/15/17 07:45 05/15/17 07:45 Assessment/Plan Leucocytosis Anemia Differential with nucleated red cells/ metamyelocytes New onset a fib on AC Being treated for PNA causing sepsis syndrome EMANUEL. Plan: A leukoerythroblastic smear is a possibility in the setting of acute illness But, a work-up is warranted given the chronic nature of the elevated white cell count. A screening anemia work-up is ordered. US abdomen with no hepato-splenomagely. for peripheral blood flow cytometry and BCR-ABL/JAK2 to r/o MPD/MDS
[2017-05-15] MEDS ORDERED: WARFARIN NA 10 MG TABLET (FP) PO ONE (12:15)
--- NOTE | 2017-05-15 13:14 | PN ---
Progress Note (short form) - Note Progress Note: 86 year old AA female with sepsis, new onset atrial fib. with controlled ventricular response Chronic UTI, persistent leukocytosis. Patient is lethargic, no chest pain or discomfort, no SOB reported. Had further drop in HCT requiring blood transfusion. C/o poor appetite, has been evaluated by the legal records clerk and workup is progress. Active Medications Generic Name Dose Route Start Last Admin Trade Name Freq PRN Reason Stop Dose Admin Acetaminophen 650 mg 05/14/17 18:59 05/14/17 22:49 Tylenol Oral Solution - PO 650 mg Q6H PRN Administration FEVER OR PAIN Guaifenesin 10 ml 05/14/17 18:59 Robitussin Dm - PO Q4H PRN COUGH Heparin Sodium (Porcine) 5,000 unit 05/14/17 18:59 Heparin - IVPUSH PRN PRN Heparin Sodium (Porcine) 1,000 unit 05/14/17 18:59 Heparin - IVPUSH PRN PRN Heparin Sodium/Dextrose 25,000 units in 500 mls @ 20 mls/hr 05/14/17 18:59 11:44 Heparin Infusion - IVPB 1,100 units/hr TITR AMLIK 22 mls/hr Protocol Administration 1,000 UNITS/HR Meropenem 500 mg in 10 mls @ 120 mls/hr 05/14/17 22:00 05/15/17 11:20 Merrem (Restricted To Id) - IVPUSH 120 mls/hr BID MALIK Administration Lidocaine/Aluminum/Magnesium/Simeth 5 ml 05/15/17 00:00 05/15/17 05:54 Magic Mouthwash *Sjr Formula* - MM 5 ml Q6HPO MALIK Administration Metoprolol Succinate 50 mg 05/14/17 22:00 05/15/17 11:19 Toprol Xl - PO 50 mg BID MALIK Administration Nystatin 500,000 units 05/15/17 00:00 05/15/17 11:19 Nystatin Oral Suspension - PO 500,000 units Q6HPO MALIK Administration Pantoprazole Sodium 40 mg 05/15/17 10:00 05/15/17 11:19 Protonix - PO 40 mg DAILY MALIK Administration 86 year old lethargic c/o weakness, LOC of appetite. Last Vital Signs Temp Pulse Resp BP Pulse Ox 97.9 F 102 H 20 110/73 98 05/15/17 06:00 05/15/17 06:00 05/15/17 06:00 05/15/17 06:00 05/14/17 21:00 Neck: supple, no JVD, Carotids are equal. HEART: PMI was in the 5th ICS, distant heart sounds, no murmur or gallop appreciated. LUNGS:Clear on auscultation. ABDOMEN:Obese, nontender, no organomegaly or palpable masses felt. EXTREMITIES:No calf tenderness or dependent edema. CBC,CMP WBC 24.0 K/mm3 (4.0-10.0) H 05/15/17 07:45 Corrected WBC (auto) 26.12 K/mm3 05/14/17 06:00 RBC 2.76 M/mm3 (3.60-5.2) L 05/15/17 07:45 Hgb 8.5 GM/dL (10.7-15.3) L 05/15/17 07:45 Hct 25.2 % (32.4-45.2) L 05/15/17 07:45 MCV 91.2 fl (80-96) 05/15/17 07:45 MCH 30.6 pg (25.7-33.7) 05/15/17 07:45 MCHC 33.6 g/dl (32.0-36.0) 05/15/17 07:45 RDW 14.5 % (11.6-15.6) 05/15/17 07:45 Plt Count 284 K/MM3 (134-434) 05/15/17 07:45 MPV 9.3 fl (7.5-11.1) 05/15/17 07:45 Total Counted 100 05/15/17 07:45 Neutrophils % No Result Required. 05/15/17 07:45 Neutrophils % (Manual) 74.0 % (42.8-82.8) D 05/15/17 07:45 Band Neutrophils % 6.0 % 05/15/17 07:45 Lymphocytes % No Result Required. 05/15/17 07:45 Lymphocytes % (Manual) 11.0 % (8-40) D 05/15/17 07:45 Monocytes % 6.0 % (3.8-10.2) D 05/10/17 06:00 Monocytes % (Manual) 5 % (3.8-10.2) 05/15/17 07:45 Eosinophils % 14.9 % (0-4.5) H D 05/10/17 06:00 Eosinophils % (Manual) 3.0 % (0-4.5) 05/15/17 07:45 Basophils % 0.4 % (0-2.0) 05/10/17 06:00 Basophils % (Manual) 1.0 % (0-2.0) D 05/14/17 06:00 Myelocytes % (Man) 1 % (0-2) D 05/14/17 06:00 Nucleated RBC % 6 % (0-0) H 05/15/17 07:45 Metamyelocytes 1 % (0-2) D 05/15/17 07:45 Platelet Estimate Adequate 05/15/17 07:45 Platelet Comment 05/13/17 15:30 Retic Count 11.26 % (0.5-1.5) H* D 05/15/17 07:45 Haptoglobin 74 mg/dL (34-200) 05/14/17 06:00 Sodium 143 mmol/L (136-145) 05/15/17 07:45 Potassium 3.7 mmol/L (3.5-5.1) 05/15/17 07:45 Chloride 115 mmol/L (98-107) H 05/15/17 07:45 Carbon Dioxide 21 mmol/L (21-32) 05/15/17 07:45 Anion Gap 7 (8-16) L 05/15/17 07:45 BUN 30 mg/dL (7-18) H D 05/15/17 07:45 Creatinine 1.6 mg/dL (0.55-1.02) H 05/15/17 07:45 Creat Clearance w eGFR 30.49 (>60) 05/15/17 07:45 POC Glucometer 104.96019 UNITS (80-120) 05/10/17 11:48 Random Glucose 107 mg/dL (74-106) H 05/15/17 07:45 Lactic Acid 0.9 mmol/L (0.4-2.0) 05/09/17 08:00 Calcium 7.7 mg/dL (8.5-10.1) L 05/15/17 07:45 Phosphorus 4.2 mg/dL (2.5-4.9) 05/15/17 07:45 Magnesium 1.6 mg/dL (1.8-2.4) L 05/15/17 07:45 Ferritin 417.397 ng/ml (6.9-282.5) H 05/15/17 07:45 Total Bilirubin 0.5 mg/dL (0.2-1.0) 05/15/17 07:45 AST 10 U/L (15-37) L D 05/15/17 07:45 ALT 14 U/L (12-78) 05/15/17 07:45 Alkaline Phosphatase 36 U/L (45-117) L 05/15/17 07:45 LD Total 259 U/L (84-246) H 05/15/17 07:45 Creatine Kinase 103 IU/L (26-192) 05/08/17 20:50 Troponin I 0.05 ng/ml (0.00-0.05) 05/10/17 06:00 B-Natriuretic Peptide 9041.42 pg/ml (5-450) H 05/10/17 06:00 Total Protein 5.2 g/dl (6.4-8.2) L 05/15/17 07:45 Albumin 1.6 g/dl (3.4-5.0) L 05/15/17 07:45 TSH 1.71 uIU/ml (0.358-3.74) D 05/10/17 06:00 Free T4 1.42 ng/dl (0.76-1.46) 05/10/17 06:00 Free T3 1.3 pg/ml (2.0-4.4) L 05/10/17 06:00 CBC WBC 31.6 K/mm3 (4.0-10.0) H* 05/14/17 06:00 Corrected WBC (auto) 26.12 K/mm3 05/14/17 06:00 RBC 2.78 M/mm3 (3.60-5.2) L 05/14/17 06:00 Hgb 8.4 GM/dL (10.7-15.3) L 05/14/17 06:00 Hct 25.0 % (32.4-45.2) L 05/14/17 06:00 MCV 90.0 fl (80-96) 05/14/17 06:00 MCH 30.2 pg (25.7-33.7) 05/14/17 06:00 MCHC 33.5 g/dl (32.0-36.0) 05/14/17 06:00 RDW 14.5 % (11.6-15.6) 05/14/17 06:00 Plt Count 290 K/MM3 (134-434) 05/14/17 06:00 MPV 9.3 fl (7.5-11.1) 05/14/17 06:00 Total Counted 100 05/14/17 06:00 Neutrophils % No Result Required. 05/14/17 06:00 Neutrophils % (Manual) 60.0 % (42.8-82.8) 05/14/17 06:00 Band Neutrophils % 1.0 % 05/14/17 06:00 Lymphocytes % No Result Required. 05/14/17 06:00 Lymphocytes % (Manual) 17.0 % (8-40) D 05/14/17 06:00 Monocytes % 6.0 % (3.8-10.2) D 05/10/17 06:00 Monocytes % (Manual) 8 % (3.8-10.2) 05/14/17 06:00 Eosinophils % 14.9 % (0-4.5) H D 05/10/17 06:00 Eosinophils % (Manual) 7.0 % (0-4.5) H 05/14/17 06:00 Basophils % 0.4 % (0-2.0) 05/10/17 06:00 Basophils % (Manual) 1.0 % (0-2.0) D 05/14/17 06:00 Myelocytes % (Man) 1 % (0-2) D 05/14/17 06:00 Nucleated RBC % 21 % (0-0) H* 05/14/17 06:00 Metamyelocytes 5 % (0-2) H D 05/14/17 06:00 Platelet Estimate Adequate 05/14/17 06:00 Platelet Comment 05/13/17 15:30 A: 1. New onset atrial fib. with controlled ventricular response.. 2. Chronic drug resistent UTI. 3. COPD. 4. New onset atrial fibrillation with controlled ventricular response. 5. Hypertension. 6. CAD, angina pectoris. 7. Leukocytosis, anemia and nucleated RBCs, etiology needs to be determined: a). Myelodysplastic syndrome needs exclusion. b). Leukemia. 8. CKD. 9. Hypomagnesemia RECOMMENDATION: 1. Correction of magnesium. 2. Heme. work up in progess. 3. F/o mag. level.
[2017-05-16] MEDS: NYSTATIN 500,000 UNITS/5 ML SUSPENSION PO SCH ×3 (06:17→17:33)
[2017-05-16] MEDS: MAG HYDROX/ALH/SMC/DPHA/LIDO 240 ML MOUTHWASH MM SCH ×3 (06:17→18:37)
[2017-05-16 07:38] LABS: MCH 30.8 pg (25.7-33.7); MCHC 33.5 g/dl (32.0-36.0); MEAN CELL VOLUME 91.8 fl (80-96); MEAN PLT VOLUME 9.5 fl (7.5-11.1); PLATELET COUNT 270 K/MM3 (134-434); RDW 14.9 % (11.6-15.6)
[2017-05-16 07:59] LABS: ANION GAP 8 (8-16); CALCIUM 7.8 mg/dL (8.5-10.1); CO2 20 mmol/L (21-32); CREATININE 1.5 mg/dL (0.55-1.02); GLUCOSE,RANDOM 81 mg/dL (74-106); MAGNESIUM 1.7 mg/dL (1.8-2.4); PHOSPHOROUS 4.5 mg/dL (2.5-4.9)
[2017-05-16 08:01] LABS: INR 1.73 (0.82-1.09); PROTHROMBIN TIME (PATIENT) 19.6 SEC (9.98-11.88)
--- NOTE | 2017-05-16 09:37 | PN ---
Progress Note, Physician Chief Complaint: feels OK History of Present Illness: wesley Lee hematology consult appreciated - Current Medication List Current Medications: Active Medications Acetaminophen (Tylenol Oral Solution -) 650 mg PO Q6H PRN PRN Reason: FEVER OR PAIN Last Admin: 05/14/17 22:49 Dose: 650 mg Guaifenesin (Robitussin Dm -) 10 ml PO Q4H PRN PRN Reason: COUGH Heparin Sodium (Porcine) (Heparin -) 5,000 unit IVPUSH PRN PRN Heparin Sodium (Porcine) (Heparin -) 1,000 unit IVPUSH PRN PRN Heparin Sodium/Dextrose (Heparin Infusion -) 25,000 units in 500 mls @ 20 mls/ hr IVPB TITR MALIK; 1,000 UNITS/HR PRN Reason: Protocol Last Admin: 05/15/17 14:52 Dose: 1,100 units/hr, 22 mls/hr Meropenem (Merrem (Restricted To Id) -) 500 mg in 10 mls @ 120 mls/hr IVPUSH BID [facility] Last Admin: 05/15/17 22:56 Dose: 120 mls/hr Lidocaine/Aluminum/Magnesium/Simeth (Magic Mouthwash *Sjr Formula* -) 5 ml MM Q6HPO [facility] Last Admin: 05/16/17 06:17 Dose: 5 ml Metoprolol Succinate (Toprol Xl -) 50 mg PO BID [facility] Last Admin: 05/15/17 22:57 Dose: 50 mg Nystatin (Nystatin Oral Suspension -) 500,000 units PO Q6HPO [facility] Last Admin: 05/16/17 06:17 Dose: 500,000 units Pantoprazole Sodium (Protonix -) 40 mg PO DAILY [facility] Last Admin: 05/15/17 11:19 Dose: 40 mg - Objective Vital Signs: Vital Signs Temperature 98 F 05/16/17 06:16 Pulse Rate 82 05/16/17 06:16 Respiratory Rate 18 05/16/17 06:16 Blood Pressure 101/57 05/16/17 06:16 O2 Sat by Pulse Oximetry (%) 98 05/15/17 21:00 Constitutional: Yes: No Distress Eyes: Yes: WNL HENT: Yes: WNL Neck: Yes: WNL Cardiovascular: Yes: Pulse Irregular Respiratory: Yes: On Nasal O2 Gastrointestinal: Yes: Normal Bowel Sounds ...Rectal Exam: Yes: Deferred Genitourinary: Yes: WNL Musculoskeletal: Yes: Muscle Weakness Neurological: Yes: Alert Labs: CBC, BMP 05/16/17 06:00 05/16/17 06:00 INR, PTT INR 1.73 (0.82-1.09) H 05/16/17 06:00 Assessment/Plan Coumadin ordered
--- NOTE | 2017-05-16 09:56 | PN ---
Progress Note, Physician History of Present Illness: stable no complaints heam note noted - Current Medication List Current Medications: Active Medications Acetaminophen (Tylenol Oral Solution -) 650 mg PO Q6H PRN PRN Reason: FEVER OR PAIN Last Admin: 05/14/17 22:49 Dose: 650 mg Guaifenesin (Robitussin Dm -) 10 ml PO Q4H PRN PRN Reason: COUGH Heparin Sodium (Porcine) (Heparin -) 5,000 unit IVPUSH PRN PRN Heparin Sodium (Porcine) (Heparin -) 1,000 unit IVPUSH PRN PRN Heparin Sodium/Dextrose (Heparin Infusion -) 25,000 units in 500 mls @ 20 mls/ hr IVPB TITR MALIK; 1,000 UNITS/HR PRN Reason: Protocol Last Admin: 05/15/17 14:52 Dose: 1,100 units/hr, 22 mls/hr Meropenem (Merrem (Restricted To Id) -) 500 mg in 10 mls @ 120 mls/hr IVPUSH BID [facility] Last Admin: 05/15/17 22:56 Dose: 120 mls/hr Lidocaine/Aluminum/Magnesium/Simeth (Magic Mouthwash *Sjr Formula* -) 5 ml MM Q6HPO [facility] Last Admin: 05/16/17 06:17 Dose: 5 ml Metoprolol Succinate (Toprol Xl -) 50 mg PO BID [facility] Last Admin: 05/15/17 22:57 Dose: 50 mg Nystatin (Nystatin Oral Suspension -) 500,000 units PO Q6HPO [facility] Last Admin: 05/16/17 06:17 Dose: 500,000 units Pantoprazole Sodium (Protonix -) 40 mg PO DAILY [facility] Last Admin: 05/15/17 11:19 Dose: 40 mg Warfarin Sodium (Coumadin -) 10 mg PO NOW ONE Stop: 05/16/17 10:01 - Objective Vital Signs: Vital Signs Temperature 98 F 05/16/17 06:16 Pulse Rate 82 05/16/17 06:16 Respiratory Rate 18 05/16/17 06:16 Blood Pressure 101/57 05/16/17 06:16 O2 Sat by Pulse Oximetry (%) 98 05/15/17 21:00 Constitutional: Yes: No Distress, Calm Cardiovascular: Yes: Pulse Irregular, S1, S2 Respiratory: Yes: Regular, On Nasal O2, Poor Air Entry, Rhonchi Gastrointestinal: Yes: Normal Bowel Sounds, Soft Musculoskeletal: Yes: WNL Extremities: Yes: WNL Neurological: Yes: Alert, Oriented Psychiatric: Yes: Alert, Oriented Labs: CBC, BMP 05/16/17 06:00 05/16/17 06:00 INR, PTT INR 1.73 (0.82-1.09) H 05/16/17 06:00 Assessment/Plan d Septic Shock EMANUEL Toxic Metabolic Encephalopathy PNA Obesity AFib Anemia Coagulopathy leukocytosis wbc higher will give one dose of vanco an see if the wbc goes down plan continue abx resp support as per cardio close watch on heart rate rest as per icu heam on case
[2017-05-16] MEDS ORDERED: WARFARIN NA 10 MG TABLET (FP) PO ONE (10:00)
[2017-05-16 10:10] LABS: SERUM IRON 53 ug/dL (27-139); TOTAL IRON BINDING CAPACITY 183 ug/dL (250-450); UIBC 130 ug/dL (118-369)
[2017-05-16] MEDS ORDERED: PT OWN MED DRAWER 7, Y5N ONE ×2 (10:13→12:32)
[2017-05-16 10:24] LABS: TOTAL CELLS COUNTED 100; WHITE BLOOD COUNT 23.1 K/mm3 (4.0-10.0)
[2017-05-16 10:25] LABS: METAMYELOCYTE 2 % (0-2); MYELOCYTE 1 % (0-2); NUCLEATED RED BLOOD CELL 12 % (0-0); PLATELET ESTIMATE ADEQUATE
[2017-05-16] MEDS: MEROPENEM 500 MG PUSH 500 MG/10 ML DISP.SYRIN IVPUSH SCH ×2 (10:38→22:10)
[2017-05-16] MEDS: PANTOPRAZOLE 40 MG TABLET (FP) PO SCH (10:40)
--- NOTE | 2017-05-16 11:00 | PN ---
Progress Note (short form) - Note Progress Note: PULMONARY AWAKE/ALERT VSS/AFEBRILE ANICTERIC/MILLER DIMINISHED BREATH SOUNDS POSTERIOR BASES S1S2 IRREG BS+ LESS EDEMA LABS/MEDS/NOTES/IMAGES REVIEWED US ABD REVIEWED Septic Shock resolved left lower lobe pneumonia Acute Kidney Injury Toxic Metabolic Encephalopathy improved Atrial Fibrillation W increased vent rate Obesity Anemia - antibiotics per ID - rate control - monitor H/H - continue anticoagulation - IVF - monitor urine output, creatinine - PO as tolerated - DVT prophylaxis - continue to monitor closely Leno PINEDA MD
[2017-05-16] MEDS: METOPROLOL SUCCINATE 50 MG TAB.SR.24H (FP) PO SCH ×2 (12:01→22:10)
--- NOTE | 2017-05-16 14:43 | PN ---
Progress Note (short form) - Note Progress Note: 86 year old AA female with sepsis, new onset atrial fib. with controlled ventricular response Chronic UTI, persistent leukocytosis. No change in status, lethargic, c/o fatique. NO SOB reported. In atrial fib, currently has a controlled ventricular response. Active Medications Acetaminophen (Tylenol Oral Solution -) 650 mg PO Q6H PRN PRN Reason: FEVER OR PAIN Last Admin: 05/14/17 22:49 Dose: 650 mg Guaifenesin (Robitussin Dm -) 10 ml PO Q4H PRN PRN Reason: COUGH Heparin Sodium (Porcine) (Heparin -) 5,000 unit IVPUSH PRN PRN Heparin Sodium (Porcine) (Heparin -) 1,000 unit IVPUSH PRN PRN Heparin Sodium/Dextrose (Heparin Infusion -) 25,000 units in 500 mls @ 20 mls/ hr IVPB TITR MALIK; 1,000 UNITS/HR PRN Reason: Protocol Last Titration: 05/16/17 10:20 Dose: 1,050 units/hr, 21 mls/hr Meropenem (Merrem (Restricted To Id) -) 500 mg in 10 mls @ 120 mls/hr IVPUSH BID [facility] Last Admin: 05/16/17 10:38 Dose: 120 mls/hr Lidocaine/Aluminum/Magnesium/Simeth (Magic Mouthwash *Sjr Formula* -) 5 ml MM Q6HPO [facility] Last Admin: 05/16/17 12:42 Dose: 5 ml Metoprolol Succinate (Toprol Xl -) 50 mg PO BID [facility] Last Admin: 05/16/17 12:01 Dose: 50 mg Nystatin (Nystatin Oral Suspension -) 500,000 units PO Q6HPO [facility] Last Admin: 05/16/17 12:42 Dose: 500,000 units Pantoprazole Sodium (Protonix -) 40 mg PO DAILY [facility] Last Admin: 05/16/17 10:40 Dose: 40 mg Warfarin Sodium (Coumadin -) 10 mg PO DAILY@1800 [facility] 86 year old lethargic c/o weakness, pallor 1+, no cyanosis or jaundice. Last Vital Signs Temp Pulse Resp BP Pulse Ox 99.4 F 89, irregular 20 114/69 99 05/16/17 10:20 05/16/17 14:16 05/16/17 14:16 05/16/17 14:16 05/16/17 11:10 Neck: supple, no JVD, Carotids are equal. HEART: PMI was in the 5th ICS, distant heart sounds, no murmur or gallop appreciated. LUNGS:Clear on auscultation. ABDOMEN:Obese, nontender, no organomegaly or palpable masses felt. EXTREMITIES:No calf tenderness 1+ pretibial edema.dependent edema. CBC, BMP 05/16/17 06:00 05/16/17 06:00 Laboratory Results - last 24 hr 05/13/17 05/15/17 05/16/17 07:30 07:45 06:00 WBC Corrected WBC (auto) RBC Hgb Hct MCV MCH MCHC RDW Plt Count MPV Total Counted Neutrophils % Neutrophils % (Manual) Lymphocytes % Lymphocytes % (Manual) Monocytes % (Manual) Eosinophils % (Manual) Myelocytes % (Man) Nucleated RBC % Metamyelocytes Platelet Estimate PT with INR 19.60 H INR 1.73 H PTT (Actin FS) Sodium Potassium Chloride Carbon Dioxide Anion Gap BUN Creatinine Random Glucose Calcium Phosphorus Magnesium Iron 53 TIBC 183 L Iron Saturation 29 Blood Type O POSITIVE Antibody Screen Negative Crossmatch See Detail 05/16/17 05/16/17 05/16/17 06:00 06:00 06:00 WBC 23.1 H Corrected WBC (auto) 20.63 RBC 2.58 L Hgb 7.9 L Hct 23.7 L MCV 91.8 MCH 30.8 MCHC 33.5 RDW 14.9 Plt Count 270 MPV 9.5 Total Counted 100 Neutrophils % No Result Required. Neutrophils % (Manual) 77.0 Lymphocytes % No Result Required. Lymphocytes % (Manual) 15.0 D Monocytes % (Manual) 2 L Eosinophils % (Manual) 3.0 Myelocytes % (Man) 1 Nucleated RBC % 12 H* Metamyelocytes 2 D Platelet Estimate Adequate PT with INR INR PTT (Actin FS) 77.7 H D Sodium 146 H Potassium 3.6 Chloride 118 H Carbon Dioxide 20 L Anion Gap 8 BUN 27 H Creatinine 1.5 H Random Glucose 81 D Calcium 7.8 L Phosphorus 4.5 Magnesium 1.7 L Iron TIBC Iron Saturation Blood Type Antibody Screen Crossmatch A: 1. New onset atrial fib. with controlled ventricular response.. 2. Chronic drug resistent UTI. 3. New onset atrial fibrillation with controlled ventricular response. 4. COPD 5. Hypertension. 6. CAD, angina pectoris. 7. Leukocytosis, anemia and nucleated RBCs, etiology needs to be determined: a). Myelodysplastic syndrome needs exclusion. b). Leukemia. 8. CKD. 9. Hypomagnesemia RECOMMENDATION: 1. Correction of magnesium. 2. Heme. work up in progess. 3. F/o mag. level.
[2017-05-16] MEDS: HEPARIN INFUSION - 25,000 UNITS/500 ML INFUS.BAG IVPB SCH ×2 (15:29→18:59)
[2017-05-16] MEDS: ACETAMINOPHEN 650 MG/20.3 ML ORAL SOLUTION (CUPS) PO PRN (15:49)
[2017-05-16] MEDS ORDERED: MAGNESIUM SULF 50% (8.12 MEQ/2 ML-1 GM VIAL) IVPB ONE (15:55)
--- NOTE | 2017-05-16 15:57 | PN ---
Progress Note (short form) - Note Progress Note: Renal Follow up for EMANUEL Pt seen and examined at the bedside awake and alert no acute complaints Vital Signs Temperature 97.9 F 05/15/17 06:00 Pulse Rate 102 H 05/15/17 06:00 Respiratory Rate 20 05/15/17 06:00 Blood Pressure 110/73 05/15/17 06:00 O2 Sat by Pulse Oximetry (%) 98 05/14/17 21:00 Intake & Output 05/12/17 05/13/17 05/14/17 05/15/17 23:59 23:59 23:59 23:59 Intake Total 3082 3792 2500 1919 Output Total 3300 2100 1950 100 Balance -218 4824 682 9019 Weight 107.32 kg 109.5 kg 110.903 kg NAD awake and alert RRR CTA (anterior exam) No LE edema CBC, BMP 05/15/17 07:45 05/15/17 07:45 Current Medications Acetaminophen (Tylenol Oral Solution -) 650 mg PO Q6H PRN PRN Reason: FEVER OR PAIN Last Admin: 05/14/17 22:49 Dose: 650 mg Guaifenesin (Robitussin Dm -) 10 ml PO Q4H PRN PRN Reason: COUGH Heparin Sodium (Porcine) (Heparin -) 5,000 unit IVPUSH PRN PRN Heparin Sodium (Porcine) (Heparin -) 1,000 unit IVPUSH PRN PRN Dextrose (D5w -) 1,000 mls @ 70 mls/hr IV Q14H [facility] Last Admin: 05/15/17 07:51 Dose: Not Given Heparin Sodium/Dextrose (Heparin Infusion -) 25,000 units in 500 mls @ 20 mls/ hr IVPB TITR MALIK; 1,000 UNITS/HR PRN Reason: Protocol Last Admin: 05/14/17 20:51 Dose: Not Given Meropenem (Merrem (Restricted To Id) -) 500 mg in 10 mls @ 120 mls/hr IVPUSH BID [facility] Last Admin: 05/14/17 22:51 Dose: 120 mls/hr Lidocaine/Aluminum/Magnesium/Simeth (Magic Mouthwash *Sjr Formula* -) 5 ml MM Q6HPO [facility] Last Admin: 05/15/17 05:54 Dose: 5 ml Metoprolol Succinate (Toprol Xl -) 50 mg PO BID [facility] Last Admin: 05/14/17 22:50 Dose: 50 mg Nystatin (Nystatin Oral Suspension -) 500,000 units PO Q6HPO [facility] Last Admin: 05/15/17 05:54 Dose: 500,000 units Pantoprazole Sodium (Protonix -) 40 mg PO DAILY [facility] 86 year old woman with PMhx of Afib, Arrythmia s/p Cardioversion, CAD, Hypertension, HLD, COPD, Ischemic Colitis, mild CKD (Cr 1.6-1.8 in the EMR) who presented with SOB and found to have Sepsis secondary to PNA with EMANUEL with Cr of 5. #Acute on Chronic Renal Insufficiency in setting fo Sepsis/PNA with preserved tubular function secondary to hemadynamic injury from Sepsis + ARB Renal function now at baseline d/c IVF Lasix PRN for volume management, sob, congestion #Sepsis syndrome with PNA Abx as per ID O2 as needed #Hx of Hypertension, now hypotensive trend BUP #Hypernatremia serum Na improved oral fluid intake as tolerated #Hypermagnesemia Mg Sulfate 1g x 1 Alex Diaz DO
[2017-05-16] MEDS ORDERED: WARFARIN NA 10 MG TABLET (FP) PO SCH (18:00)
--- NOTE | 2017-05-16 18:17 | PN ---
Progress Note (short form) - Note Progress Note: PAtient seen and examined Denies any complaints Last Vital Signs Temp Pulse Resp BP Pulse Ox 99.4 F 89 20 114/69 99 05/16/17 10:20 05/16/17 14:16 05/16/17 14:16 05/16/17 14:16 05/16/17 11:10 Cor: RSR, No murmurs, No gallops Lungs: Clear to P&A Abd: Soft, Normal bowel sounds, No organomegaly Ext:No significant edema Skin: No rashes, Integument intact Abnormal Lab Results 05/13/17 05/15/17 05/16/17 07:30 07:45 06:00 WBC RBC Hgb Hct Monocytes % (Manual) Nucleated RBC % PT with INR 19.60 H INR 1.73 H PTT (Actin FS) Sodium Chloride Carbon Dioxide BUN Creatinine Calcium Magnesium TIBC 183 L Crossmatch See Detail 05/16/17 05/16/17 05/16/17 06:00 06:00 06:00 WBC 23.1 H RBC 2.58 L Hgb 7.9 L Hct 23.7 L Monocytes % (Manual) 2 L Nucleated RBC % 12 H* PT with INR INR PTT (Actin FS) 77.7 H D Sodium 146 H Chloride 118 H Carbon Dioxide 20 L BUN 27 H Creatinine 1.5 H Calcium 7.8 L Magnesium 1.7 L TIBC Crossmatch Home Medication List Medication Instructions Recorded Confirmed Type Ascorbic Acid [Vitamin C with Barbara 500 mg PO DAILY 01/18/17 05/09/17 History Hips] Aspirin [ASA -] 81 mg PO DAILY 01/18/17 05/09/17 History Cholecalciferol (Vitamin D3) 5,000 unit PO DAILY 01/18/17 05/09/17 History [Vitamin D3] Diltiazem HCl [Cartia Xt] 240 mg PO DAILY 01/18/17 05/09/17 History Isosorbide Mononitrate [Isosorbide 30 mg PO DAILY 01/18/17 05/09/17 History Mononitrate ER] Losartan Potassium 50 mg PO DAILY 01/18/17 05/09/17 History Ranitidine [Zantac -] 150 mg PO DAILY 01/18/17 05/09/17 History Albuterol 0.083% Nebulizer Madhavi 1 neb NEB Q6H 04/21/17 05/09/17 History [Ventolin 0.083% Nebulizer Soln -] Albuterol Sulfate [Proair 90 mcg IH DAILY 04/21/17 05/09/17 History Respiclick] Promethazine HCl [Phenergan Plain 10 ml PO TID 04/21/17 05/09/17 History 6.25 MG/5 ML -] Nitrofurantoin Macrocrystal 100 mg PO BID 04/22/17 05/09/17 History [Nitrofurantoin] Oxycodone HCl [Roxicodone -] 5 mg PO Q6H PRN 04/22/17 05/09/17 History Active Medications Generic Name Dose Route Start Last Admin Trade Name Freq PRN Reason Stop Dose Admin Acetaminophen 650 mg 05/14/17 18:59 05/16/17 15:49 Tylenol Oral Solution - PO 650 mg Q6H PRN Administration FEVER OR PAIN Guaifenesin 10 ml 05/14/17 18:59 Robitussin Dm - PO Q4H PRN COUGH Heparin Sodium (Porcine) 5,000 unit 05/14/17 18:59 Heparin - IVPUSH PRN PRN Heparin Sodium (Porcine) 1,000 unit 05/14/17 18:59 Heparin - IVPUSH PRN PRN Heparin Sodium/Dextrose 25,000 units in 500 mls @ 20 mls/hr 05/14/17 18:59 15:29 Heparin Infusion - IVPB 1,050 units/hr TITR MALIK 21 mls/hr Protocol Administration 1,000 UNITS/HR Meropenem 500 mg in 10 mls @ 120 mls/hr 05/14/17 22:00 05/16/17 10:38 Merrem (Restricted To Id) - IVPUSH 120 mls/hr BID MALIK Administration Lidocaine/Aluminum/Magnesium/Simeth 5 ml 05/15/17 00:00 05/16/17 18:37 Magic Mouthwash *Sjr Formula* - MM 5 ml Q6HPO MALIK Administration Metoprolol Succinate 50 mg 05/14/17 22:00 05/16/17 12:01 Toprol Xl - PO 50 mg BID MALIK Administration Nystatin 500,000 units 05/15/17 00:00 05/16/17 17:33 Nystatin Oral Suspension - PO 500,000 units Q6HPO MALIK Administration Pantoprazole Sodium 40 mg 05/15/17 10:00 05/16/17 10:40 Protonix - PO 40 mg DAILY MALIK Administration Warfarin Sodium 10 mg 05/16/17 18:00 05/16/17 17:33 Coumadin - PO 10 mg DAILY@1800 MALIK Administration A/P Leucocytosis Anemia Differential with nucleated red cells/ metamyelocytes New onset a fib on AC Being treated for PNA causing sepsis syndrome EMANUEL improving Anemia of chronic disease? stool occult neg. TSH--nl
[2017-05-16] MEDS: guaiFENesin/D-METHORPHAN HB 10 ML UNIT-DOSE CUPS PO PRN (22:09)
[2017-05-17] MEDS: MAG HYDROX/ALH/SMC/DPHA/LIDO 240 ML MOUTHWASH MM SCH ×5 (00:24→23:04)
[2017-05-17] MEDS: NYSTATIN 500,000 UNITS/5 ML SUSPENSION PO SCH ×5 (00:24→23:04)
[2017-05-17] MEDS ORDERED: PT OWN MED DRAWER 7, Y5N ONE ×2 (06:09→10:33)
[2017-05-17 08:28] LABS: BASOPHIL 0.7 % (0-2.0); EOSINOPHIL 3.7 % (0-4.5); MCH 30.7 pg (25.7-33.7); MCHC 32.9 g/dl (32.0-36.0); MEAN CELL VOLUME 93.4 fl (80-96); MEAN PLT VOLUME 9.2 fl (7.5-11.1); NEUTROPHILS 74.4 % (42.8-82.8); PLATELET COUNT 269 K/MM3 (134-434); RDW 14.9 % (11.6-15.6); WHITE BLOOD COUNT 17.6 K/mm3 (4.0-10.0)
[2017-05-17 08:40] LABS: INR 2.14 (0.82-1.09); PROTHROMBIN TIME (PATIENT) 24.2 SEC (9.98-11.88)
--- NOTE | 2017-05-17 08:40 | PN ---
Progress Note, Physician Chief Complaint: Feels better History of Present Illness: admitted with new on set Afib and CHF Feels better - Current Medication List Current Medications: Active Medications Acetaminophen (Tylenol Oral Solution -) 650 mg PO Q6H PRN PRN Reason: FEVER OR PAIN Last Admin: 05/16/17 15:49 Dose: 650 mg Guaifenesin (Robitussin Dm -) 10 ml PO Q4H PRN PRN Reason: COUGH Last Admin: 05/16/17 22:09 Dose: 10 ml Heparin Sodium (Porcine) (Heparin -) 5,000 unit IVPUSH PRN PRN Heparin Sodium (Porcine) (Heparin -) 1,000 unit IVPUSH PRN PRN Heparin Sodium/Dextrose (Heparin Infusion -) 25,000 units in 500 mls @ 20 mls/ hr IVPB TITR MALIK; 1,000 UNITS/HR PRN Reason: Protocol Last Admin: 05/16/17 18:59 Dose: Not Given Meropenem (Merrem (Restricted To Id) -) 500 mg in 10 mls @ 120 mls/hr IVPUSH BID [facility] Last Admin: 05/16/17 22:10 Dose: 120 mls/hr Lidocaine/Aluminum/Magnesium/Simeth (Magic Mouthwash *Sjr Formula* -) 5 ml MM Q6HPO [facility] Last Admin: 05/17/17 06:48 Dose: 5 ml Metoprolol Succinate (Toprol Xl -) 50 mg PO BID [facility] Last Admin: 05/16/17 22:10 Dose: 50 mg Nystatin (Nystatin Oral Suspension -) 500,000 units PO Q6HPO [facility] Last Admin: 05/17/17 06:48 Dose: 500,000 units Pantoprazole Sodium (Protonix -) 40 mg PO DAILY [facility] Last Admin: 05/16/17 10:40 Dose: 40 mg Warfarin Sodium (Coumadin -) 10 mg PO DAILY@1800 [facility] Last Admin: 05/16/17 17:33 Dose: 10 mg - Objective Vital Signs: Vital Signs Temperature 98.6 F 05/17/17 05:54 Pulse Rate 115 H 05/17/17 05:54 Respiratory Rate 20 05/17/17 05:54 Blood Pressure 104/65 05/17/17 05:54 O2 Sat by Pulse Oximetry (%) 100 05/16/17 21:00 Constitutional: Yes: No Distress Eyes: Yes: WNL HENT: Yes: WNL Neck: Yes: WNL Cardiovascular: Yes: WNL Respiratory: Yes: WNL Gastrointestinal: Yes: Normal Bowel Sounds Genitourinary: Yes: WNL Musculoskeletal: Yes: Muscle Weakness Edema: No Neurological: Yes: Alert Labs: CBC, BMP 05/17/17 07:00 INR, PTT INR 1.73 (0.82-1.09) H 05/16/17 06:00 Assessment/Plan WBC down to 17,INR pending
[2017-05-17 08:43] LABS: ACTIVATED PTT 88.4 SECONDS (26.9-34.4)
[2017-05-17 09:19] LABS: ANION GAP 8 (8-16); CALCIUM 7.6 mg/dL (8.5-10.1); CO2 21 mmol/L (21-32); CREATININE 1.6 mg/dL (0.55-1.02); GLUCOSE,RANDOM 82 mg/dL (74-106); MAGNESIUM 1.9 mg/dL (1.8-2.4); PHOSPHOROUS 4.5 mg/dL (2.5-4.9)
[2017-05-17] MEDS: MEROPENEM 500 MG PUSH 500 MG/10 ML DISP.SYRIN IVPUSH SCH ×2 (10:45→22:33)
[2017-05-17] MEDS: METOPROLOL SUCCINATE 50 MG TAB.SR.24H (FP) PO SCH ×2 (10:45→22:33)
[2017-05-17] MEDS: PANTOPRAZOLE 40 MG TABLET (FP) PO SCH (10:45)
[2017-05-17] MEDS: guaiFENesin/D-METHORPHAN HB 10 ML UNIT-DOSE CUPS PO PRN (10:45)
--- NOTE | 2017-05-17 12:26 | PN ---
Progress Note (short form) - Note Progress Note: Resting in NAD on NC O2. Afebrile. No CP or SOB. No acute events overnight. OBJECTIVE: Intake & Output 05/14/17 05/15/17 05/16/17 05/17/17 23:59 23:59 23:59 23:59 Intake Total 2500 2644 586 231 Output Total 1950 200 Balance 550 2444 586 231 Weight 244 lb 8 oz Last Vital Signs Temp Pulse Resp BP Pulse Ox 98.4 F 94 H 20 105/65 100 05/17/17 09:00 05/17/17 09:00 05/17/17 09:00 05/17/17 09:00 05/16/17 21:00 Active Medications Acetaminophen (Tylenol Oral Solution -) 650 mg PO Q6H PRN PRN Reason: FEVER OR PAIN Last Admin: 05/16/17 15:49 Dose: 650 mg Guaifenesin (Robitussin Dm -) 10 ml PO Q4H PRN PRN Reason: COUGH Last Admin: 05/17/17 10:45 Dose: 10 ml Meropenem (Merrem (Restricted To Id) -) 500 mg in 10 mls @ 120 mls/hr IVPUSH BID [facility] Last Admin: 05/17/17 10:45 Dose: 120 mls/hr Lidocaine/Aluminum/Magnesium/Simeth (Magic Mouthwash *Sjr Formula* -) 5 ml MM Q6HPO [facility] Last Admin: 05/17/17 06:48 Dose: 5 ml Metoprolol Succinate (Toprol Xl -) 50 mg PO BID [facility] Last Admin: 05/17/17 10:45 Dose: 50 mg Nystatin (Nystatin Oral Suspension -) 500,000 units PO Q6HPO [facility] Last Admin: 05/17/17 06:48 Dose: 500,000 units Pantoprazole Sodium (Protonix -) 40 mg PO DAILY [facility] Last Admin: 05/17/17 10:45 Dose: 40 mg Warfarin Sodium (Coumadin -) 5 mg PO DAILY@1800 [facility] Gen: Sleepy but easily arousable Heart: S1S2, regular Lung: scattered basilar rhonchi Abd: soft, nontender Ext: no edema Laboratory Results - last 24 hr 05/17/17 05/17/17 05/17/17 07:00 07:00 07:00 WBC 17.6 H RBC 2.51 L Hgb 7.7 L Hct 23.5 L MCV 93.4 MCH 30.7 MCHC 32.9 RDW 14.9 Plt Count 269 MPV 9.2 Neutrophils % 74.4 Lymphocytes % 16.5 D Monocytes % 4.7 Eosinophils % 3.7 Basophils % 0.7 PT with INR 24.20 H INR 2.14 H PTT (Actin FS) 88.4 H Sodium 148 H Potassium 3.6 Chloride 119 H Carbon Dioxide 21 Anion Gap 8 BUN 23 H Creatinine 1.6 H Random Glucose 82 Calcium 7.6 L Phosphorus 4.5 Magnesium 1.9 ASSESSMENT AND PLAN: r/o Pneumonia Septic Shock resolved Acute Kidney Injury Toxic Metabolic Encephalopathy Atrial Fibrillation Obesity Anemia (?) OSAS - ABX per ID - rate control - AC - aspiration precautions - Sleep screen after discharge Dr Amaya
--- NOTE | 2017-05-17 13:03 | PN ---
Progress Note, Physician Chief Complaint: The patient seen in her room. No specific complaints. Has loose BM. Maintains good urine output. - Current Medication List Current Medications: Active Medications Acetaminophen (Tylenol Oral Solution -) 650 mg PO Q6H PRN PRN Reason: FEVER OR PAIN Last Admin: 05/16/17 15:49 Dose: 650 mg Guaifenesin (Robitussin Dm -) 10 ml PO Q4H PRN PRN Reason: COUGH Last Admin: 05/17/17 10:45 Dose: 10 ml Meropenem (Merrem (Restricted To Id) -) 500 mg in 10 mls @ 120 mls/hr IVPUSH BID [facility] Last Admin: 05/17/17 10:45 Dose: 120 mls/hr Lidocaine/Aluminum/Magnesium/Simeth (Magic Mouthwash *Sjr Formula* -) 5 ml MM Q6HPO [facility] Last Admin: 05/17/17 06:48 Dose: 5 ml Metoprolol Succinate (Toprol Xl -) 50 mg PO BID [facility] Last Admin: 05/17/17 10:45 Dose: 50 mg Nystatin (Nystatin Oral Suspension -) 500,000 units PO Q6HPO [facility] Last Admin: 05/17/17 06:48 Dose: 500,000 units Pantoprazole Sodium (Protonix -) 40 mg PO DAILY [facility] Last Admin: 05/17/17 10:45 Dose: 40 mg Warfarin Sodium (Coumadin -) 5 mg PO DAILY@1800 [facility] - Objective Vital Signs: Vital Signs Temperature 98.4 F 05/17/17 09:00 Pulse Rate 94 H 05/17/17 09:00 Respiratory Rate 20 05/17/17 09:00 Blood Pressure 105/65 05/17/17 09:00 O2 Sat by Pulse Oximetry (%) 100 05/16/17 21:00 Constitutional: Yes: Well Nourished Eyes: Yes: Conjunctiva Clear HENT: Yes: Normocephalic Neck: Yes: Trachea Midline Cardiovascular: Yes: S1, S2 Respiratory: Yes: CTA Bilaterally, Diminished Gastrointestinal: Yes: Normal Bowel Sounds, Abdomen, Obese Genitourinary: No: Bladder Distention, CVA Tenderness - Left, CVA Tenderness - Right Neurological: Yes: Alert, Oriented Labs: CBC, BMP 05/17/17 07:00 05/17/17 07:00 INR, PTT INR 2.14 (0.82-1.09) H 05/17/17 07:00 Problem List - Problems (1) Atrial fibrillation with RVR Code(s): I48.91 - UNSPECIFIED ATRIAL FIBRILLATION (2) CHF (NYHA class II, ACC/AHA stage C) Code(s): I50.9 - HEART FAILURE, UNSPECIFIED (3) CKD stage G3b/A3, GFR 30-44 and albumin creatinine ratio >300 mg/g Code(s): N18.3 - CHRONIC KIDNEY DISEASE, STAGE 3 (MODERATE) (4) COPD mixed type Code(s): J44.9 - CHRONIC OBSTRUCTIVE PULMONARY DISEASE, UNSPECIFIED (5) Diastolic CHF Code(s): I50.30 - UNSPECIFIED DIASTOLIC (CONGESTIVE) HEART FAILURE Qualifiers: Congestive heart failure chronicity: acute Qualified Code(s): I50.31 - Acute diastolic (congestive) heart failure Assessment/Plan 86 year old woman with PMhx of Afib, Arrhythmia s/p Cardioversion, CAD, Hypertension, HLD, COPD, Ischemic Colitis, mild CKD (Cr 1.6-1.8 in the EMR) who presented with SOB and found to have Sepsis secondary to Pneumonia with EMANUEL with Cr of 5. Acute on Chronic Renal Insufficiency in setting fo Sepsis/PNA with preserved tubular function Secondary to hemadynamic injury from Sepsis + ARB Renal function now at baseline Off ARBs. No overt evidence of Volume overload. Tendency for Hypernatremia. Will watach. Oral intake suboptimal. Sepsis syndrome with PNA Abx as per ID O2 as needed Hx of Hypertension, BP remains low. Hypernatremia..oral fluid intake as tolerated Serum Mg in acceptable range now. Annie Cortes MD
--- NOTE | 2017-05-17 13:46 | PN ---
Progress Note, Physician History of Present Illness: Pt seen and examined. Chart, lab results, imaging reviewed. 86 y.o. female admitted with respiratory distress, atrial fibrillation s/p cardioversion, leukocytosis, fever, AMS, EMANUEL, hypotension, afib and has been on antibiotics for pulmonary infiltrates suggestive of pneumonia. Currently patient states she feels better. As been afebrile. - Current Medication List Current Medications: Active Medications Acetaminophen (Tylenol Oral Solution -) 650 mg PO Q6H PRN PRN Reason: FEVER OR PAIN Last Admin: 05/16/17 15:49 Dose: 650 mg Guaifenesin (Robitussin Dm -) 10 ml PO Q4H PRN PRN Reason: COUGH Last Admin: 05/17/17 10:45 Dose: 10 ml Meropenem (Merrem (Restricted To Id) -) 500 mg in 10 mls @ 120 mls/hr IVPUSH BID [facility] Last Admin: 05/17/17 10:45 Dose: 120 mls/hr Lidocaine/Aluminum/Magnesium/Simeth (Magic Mouthwash *Sjr Formula* -) 5 ml MM Q6HPO [facility] Last Admin: 05/17/17 13:23 Dose: 5 ml Metoprolol Succinate (Toprol Xl -) 50 mg PO BID [facility] Last Admin: 05/17/17 10:45 Dose: 50 mg Nystatin (Nystatin Oral Suspension -) 500,000 units PO Q6HPO [facility] Last Admin: 05/17/17 13:23 Dose: 500,000 units Pantoprazole Sodium (Protonix -) 40 mg PO DAILY [facility] Last Admin: 05/17/17 10:45 Dose: 40 mg Warfarin Sodium (Coumadin -) 5 mg PO DAILY@1800 [facility] - Objective Vital Signs: Vital Signs Temperature 98.6 F 05/17/17 13:00 Pulse Rate 99 H 05/17/17 13:00 Respiratory Rate 20 05/17/17 13:00 Blood Pressure 108/68 05/17/17 13:00 O2 Sat by Pulse Oximetry (%) 100 05/16/17 21:00 Constitutional: Yes: No Distress, Calm Neck: Yes: Supple Cardiovascular: Yes: Regular Rate and Rhythm Respiratory: Yes: Diminished (slightly in bases), Other Gastrointestinal: Yes: Normal Bowel Sounds, Soft, Other (no guarding) Genitourinary: Yes: WNL Musculoskeletal: Yes: WNL Integumentary: Yes: WNL Neurological: Yes: Alert, Oriented Labs: CBC, BMP 05/17/17 07:00 05/17/17 07:00 INR, PTT INR 2.14 (0.82-1.09) H 05/17/17 07:00 - ....Imaging Chest X-ray: Report Reviewed Problem List - Problems (1) Healthcare-associated pneumonia Code(s): J18.9 - PNEUMONIA, UNSPECIFIED ORGANISM (2) Altered mental status Code(s): R41.82 - ALTERED MENTAL STATUS, UNSPECIFIED (3) Atrial fibrillation with RVR Code(s): I48.91 - UNSPECIFIED ATRIAL FIBRILLATION (4) COPD mixed type Code(s): J44.9 - CHRONIC OBSTRUCTIVE PULMONARY DISEASE, UNSPECIFIED (5) Leukocytosis Code(s): D72.829 - ELEVATED WHITE BLOOD CELL COUNT, UNSPECIFIED (6) Renal function impairment Code(s): N28.9 - DISORDER OF KIDNEY AND URETER, UNSPECIFIED Assessment/Plan s/p Septic Shock EMANUEL /CKD AMS Obesity Anemia leukocytosis - wbc trending down but still mildly elevated, afebrile - appears to be improving, continue antibiotics for now - repeat cbc in a.m.
[2017-05-17] MEDS: ACETAMINOPHEN 650 MG/20.3 ML ORAL SOLUTION (CUPS) PO PRN (14:22)
[2017-05-17] MEDS: WARFARIN NA 5 MG TABLET (UD) PO SCH (17:37)
[2017-05-18] MEDS: MAG HYDROX/ALH/SMC/DPHA/LIDO 240 ML MOUTHWASH MM SCH ×4 (05:54→23:11)
[2017-05-18] MEDS: NYSTATIN 500,000 UNITS/5 ML SUSPENSION PO SCH ×4 (05:55→23:10)
[2017-05-18 06:36] LABS: HEMATOCRIT 23.7 % (34.0-46.6)
[2017-05-18 09:29] LABS: ALK PHOS 39 U/L (45-117); ANION GAP 7 (8-16); BILIRUBIN,TOTAL 0.3 mg/dL (0.2-1.0); CALCIUM 8.3 mg/dL (8.5-10.1); CO2 23 mmol/L (21-32); CREATININE 1.7 mg/dL (0.55-1.02); GLUCOSE,RANDOM 104 mg/dL (74-106); MAGNESIUM 1.9 mg/dL (1.8-2.4); SGOT/AST 7 U/L (15-37); SGPT/ALT 13 U/L (12-78); TOT PROT 6.3 g/dl (6.4-8.2)
[2017-05-18 09:30] LABS: INR 3.79 (0.82-1.09); PROTHROMBIN TIME (PATIENT) 42.8 SEC (9.98-11.88)
[2017-05-18] MEDS ORDERED: PT OWN MED DRAWER 7, Y5N ONE ×3 (10:26→22:59)
[2017-05-18] MEDS: PANTOPRAZOLE 40 MG TABLET (FP) PO SCH (10:48)
[2017-05-18] MEDS: MEROPENEM 500 MG PUSH 500 MG/10 ML DISP.SYRIN IVPUSH SCH ×2 (10:48→23:10)
[2017-05-18] MEDS: METOPROLOL SUCCINATE 50 MG TAB.SR.24H (FP) PO SCH ×2 (10:48→22:59)
--- NOTE | 2017-05-18 11:33 | PN ---
Progress Note, Physician Chief Complaint: Feels better History of Present Illness: New on set Afib Sepsis - Current Medication List Current Medications: Active Medications Acetaminophen (Tylenol Oral Solution -) 650 mg PO Q6H PRN PRN Reason: FEVER OR PAIN Last Admin: 05/17/17 14:22 Dose: 650 mg Guaifenesin (Robitussin Dm -) 10 ml PO Q4H PRN PRN Reason: COUGH Last Admin: 05/17/17 10:45 Dose: 10 ml Meropenem (Merrem (Restricted To Id) -) 500 mg in 10 mls @ 120 mls/hr IVPUSH BID [facility] Last Admin: 05/18/17 10:48 Dose: 120 mls/hr Lidocaine/Aluminum/Magnesium/Simeth (Magic Mouthwash *Sjr Formula* -) 5 ml MM Q6HPO [facility] Last Admin: 05/18/17 05:54 Dose: 5 ml Metoprolol Succinate (Toprol Xl -) 50 mg PO BID [facility] Last Admin: 05/18/17 10:48 Dose: 50 mg Nystatin (Nystatin Oral Suspension -) 500,000 units PO Q6HPO [facility] Last Admin: 05/18/17 05:55 Dose: 500,000 units Pantoprazole Sodium (Protonix -) 40 mg PO DAILY [facility] Last Admin: 05/18/17 10:48 Dose: 40 mg Warfarin Sodium (Coumadin -) 5 mg PO DAILY@1800 [facility] Last Admin: 05/17/17 17:37 Dose: 5 mg - Objective Vital Signs: Vital Signs Temperature 98.4 F 05/18/17 06:00 Pulse Rate 102 H 05/18/17 06:00 Respiratory Rate 18 05/18/17 06:00 Blood Pressure 131/68 05/18/17 06:00 O2 Sat by Pulse Oximetry (%) 100 05/17/17 22:00 Constitutional: Yes: No Distress Eyes: Yes: WNL, Occular Prosthesis Neck: Yes: WNL Cardiovascular: Yes: Pulse Irregular Respiratory: Yes: Regular Gastrointestinal: Yes: WNL ...Rectal Exam: Yes: Deferred Genitourinary: Yes: WNL Breast(s): Yes: WNL Musculoskeletal: Yes: Muscle Weakness Peripheral Pulses WNL: Yes Neurological: Yes: Babinski positive Psychiatric: Yes: WNL Labs: CBC, BMP 05/17/17 07:00 05/18/17 08:48 INR, PTT INR 3.79 (0.82-1.09) H D 05/18/17 08:48 Assessment/Plan WBC down to 17,INR pending Hold coumadin
--- NOTE | 2017-05-18 12:05 | PN ---
Progress Note (short form) - Note Progress Note: Resting in NAD on NC O2. No CP or SOB. No acute events overnight. OBJECTIVE: Intake & Output 05/15/17 05/16/17 05/17/17 05/18/17 23:59 23:59 23:59 23:59 Intake Total 2644 586 581 100 Output Total 200 Balance 2444 586 581 100 Last Vital Signs Temp Pulse Resp BP Pulse Ox 98.4 F 102 H 18 131/68 100 05/18/17 06:00 05/18/17 06:00 05/18/17 06:00 05/18/17 06:00 05/17/17 22:00 Active Medications Acetaminophen (Tylenol Oral Solution -) 650 mg PO Q6H PRN PRN Reason: FEVER OR PAIN Last Admin: 05/17/17 14:22 Dose: 650 mg Guaifenesin (Robitussin Dm -) 10 ml PO Q4H PRN PRN Reason: COUGH Last Admin: 05/17/17 10:45 Dose: 10 ml Meropenem (Merrem (Restricted To Id) -) 500 mg in 10 mls @ 120 mls/hr IVPUSH BID [facility] Last Admin: 05/18/17 10:48 Dose: 120 mls/hr Lidocaine/Aluminum/Magnesium/Simeth (Magic Mouthwash *Sjr Formula* -) 5 ml MM Q6HPO [facility] Last Admin: 05/18/17 05:54 Dose: 5 ml Metoprolol Succinate (Toprol Xl -) 50 mg PO BID [facility] Last Admin: 05/18/17 10:48 Dose: 50 mg Nystatin (Nystatin Oral Suspension -) 500,000 units PO Q6HPO [facility] Last Admin: 05/18/17 05:55 Dose: 500,000 units Pantoprazole Sodium (Protonix -) 40 mg PO DAILY [facility] Last Admin: 05/18/17 10:48 Dose: 40 mg Warfarin Sodium (Coumadin -) 5 mg PO DAILY@1800 [facility] Last Admin: 05/17/17 17:37 Dose: 5 mg Gen: Awake, NAD Heart: S1S2, regular Lung: scattered basilar rhonchi Abd: soft, nontender Ext: no edema Laboratory Results - last 24 hr 05/17/17 05/18/17 05/18/17 07:00 08:48 08:48 Hct 23.7 L PT with INR 42.80 H INR 3.79 H D Sodium 151 H Potassium 4.4 D Chloride 121 H Carbon Dioxide 23 Anion Gap 7 L BUN 23 H Creatinine 1.7 H Creat Clearance w eGFR 28.43 Random Glucose 104 D Calcium 8.3 L Magnesium 1.9 Total Bilirubin 0.3 D AST 7 L D ALT 13 Alkaline Phosphatase 39 L Total Protein 6.3 L D Albumin 2.0 L D Folate 1408 Folate Hemolysate 333.7 ASSESSMENT AND PLAN: r/o Pneumonia Septic Shock resolved Acute Kidney Injury Toxic Metabolic Encephalopathy Atrial Fibrillation Obesity Anemia (?) OSAS - ABX per ID - rate control - AC - aspiration precautions - Sleep screen after discharge Dr Amaya
[2017-05-18 13:34] LABS: BASOPHIL 0.3 % (0-2.0); EOSINOPHIL 2.9 % (0-4.5); MCH 30.8 pg (25.7-33.7); MEAN CELL VOLUME 93.5 fl (80-96); MEAN PLT VOLUME 7.9 fl (7.5-11.1); NEUTROPHILS 69.1 % (42.8-82.8); PLATELET COUNT 292 K/MM3 (134-434); RDW 15.4 % (11.6-15.6); WHITE BLOOD COUNT 14.1 K/mm3 (4.0-10.0)
--- NOTE | 2017-05-18 14:10 | PN ---
Progress Note (short form) - Note Progress Note: 86 year old AA female with sepsis, new onset atrial fib. with controlled ventricular response Chronic UTI, persistent leukocytosis. Patient is alert, no SOB, PND or orthopnea reported, has a rapid ventricular response at 128 /min. No chest pain or discomfort. Active Medications Acetaminophen (Tylenol Oral Solution -) 650 mg PO Q6H PRN PRN Reason: FEVER OR PAIN Last Admin: 05/17/17 14:22 Dose: 650 mg Guaifenesin (Robitussin Dm -) 10 ml PO Q4H PRN PRN Reason: COUGH Last Admin: 05/17/17 10:45 Dose: 10 ml Meropenem (Merrem (Restricted To Id) -) 500 mg in 10 mls @ 120 mls/hr IVPUSH BID [facility] Last Admin: 05/18/17 10:48 Dose: 120 mls/hr Lidocaine/Aluminum/Magnesium/Simeth (Magic Mouthwash *Sjr Formula* -) 5 ml MM Q6HPO [facility] Last Admin: 05/18/17 05:54 Dose: 5 ml Metoprolol Succinate (Toprol Xl -) 50 mg PO BID [facility] Last Admin: 05/18/17 10:48 Dose: 50 mg Nystatin (Nystatin Oral Suspension -) 500,000 units PO Q6HPO [facility] Last Admin: 05/18/17 05:55 Dose: 500,000 units Pantoprazole Sodium (Protonix -) 40 mg PO DAILY [facility] Last Admin: 05/18/17 10:48 Dose: 40 mg Warfarin Sodium (Coumadin -) 5 mg PO DAILY@1800 [facility] Last Admin: 05/17/17 17:37 Dose: 5 mg 86 year old lethargic c/o weakness, pallor 1+, no cyanosis or jaundice. Last Vital Signs Temp Pulse Resp BP Pulse Ox 98.4 F 128 H 18 103/68 100 05/18/17 06:00 05/18/17 10:00 05/18/17 10:00 05/18/17 10:00 05/17/17 22:00 Neck: supple, no JVD, Carotids are equal. HEART: PMI was in the 5th ICS, distant heart sounds, no murmur or gallop appreciated. LUNGS:Clear on auscultation. ABDOMEN:Obese, nontender, no organomegaly or palpable masses felt. EXTREMITIES:No calf tenderness 1+ pretibial edema.dependent edema. CBC, BMP 05/18/17 13:31 05/18/17 08:48 A: 1. Atrial fib. with rapid ventricular response. 2. Chronic drug resistent UTI. 3. COPD. 4. Hypertension. 5. Hypomagnesemia 6. CAD, angina pectoris. 7. Leukocytosis, anemia and nucleated RBCs, etiology needs to be determined: a). Myelodysplastic syndrome needs exclusion. b). Leukemia. 8. CKD. RECOMMENDATION: 1. Transfer to telemetry for monitoring and adjustment of therapy 2. F/u mag. level.
--- NOTE | 2017-05-18 14:50 | PN ---
Progress Note, Physician Chief Complaint: The patient seen in her room. Tachycardic. No specific complaints. Maintains good urine output. - Current Medication List Current Medications: Active Medications Acetaminophen (Tylenol Oral Solution -) 650 mg PO Q6H PRN PRN Reason: FEVER OR PAIN Last Admin: 05/17/17 14:22 Dose: 650 mg Guaifenesin (Robitussin Dm -) 10 ml PO Q4H PRN PRN Reason: COUGH Last Admin: 05/17/17 10:45 Dose: 10 ml Meropenem (Merrem (Restricted To Id) -) 500 mg in 10 mls @ 120 mls/hr IVPUSH BID [facility] Last Admin: 05/18/17 10:48 Dose: 120 mls/hr Lidocaine/Aluminum/Magnesium/Simeth (Magic Mouthwash *Sjr Formula* -) 5 ml MM Q6HPO [facility] Last Admin: 05/18/17 14:37 Dose: 5 ml Metoprolol Succinate (Toprol Xl -) 50 mg PO BID [facility] Last Admin: 05/18/17 10:48 Dose: 50 mg Nystatin (Nystatin Oral Suspension -) 500,000 units PO Q6HPO [facility] Last Admin: 05/18/17 14:37 Dose: 500,000 units Pantoprazole Sodium (Protonix -) 40 mg PO DAILY [facility] Last Admin: 05/18/17 10:48 Dose: 40 mg Warfarin Sodium (Coumadin -) 5 mg PO DAILY@1800 [facility] Last Admin: 05/17/17 17:37 Dose: 5 mg - Objective Vital Signs: Vital Signs Temperature 98.4 F 05/18/17 06:00 Pulse Rate 128 H 05/18/17 10:00 Respiratory Rate 18 05/18/17 10:00 Blood Pressure 103/68 05/18/17 10:00 O2 Sat by Pulse Oximetry (%) 100 05/17/17 22:00 Constitutional: Yes: No Distress, Anxious Eyes: Yes: Conjunctiva Clear HENT: Yes: Normocephalic Cardiovascular: Yes: S1, S2 Respiratory: Yes: CTA Bilaterally, Diminished Gastrointestinal: Yes: Normal Bowel Sounds, Abdomen, Obese Edema: No Labs: CBC, BMP 05/18/17 13:31 05/18/17 08:48 INR, PTT INR 3.79 (0.82-1.09) H D 05/18/17 08:48 Problem List - Problems (1) Atrial fibrillation with RVR Code(s): I48.91 - UNSPECIFIED ATRIAL FIBRILLATION (2) CHF (NYHA class II, ACC/AHA stage C) Code(s): I50.9 - HEART FAILURE, UNSPECIFIED (3) CKD stage G3b/A3, GFR 30-44 and albumin creatinine ratio >300 mg/g Code(s): N18.3 - CHRONIC KIDNEY DISEASE, STAGE 3 (MODERATE) (4) COPD mixed type Code(s): J44.9 - CHRONIC OBSTRUCTIVE PULMONARY DISEASE, UNSPECIFIED (5) Diastolic CHF Code(s): I50.30 - UNSPECIFIED DIASTOLIC (CONGESTIVE) HEART FAILURE Qualifiers: Congestive heart failure chronicity: acute Qualified Code(s): I50.31 - Acute diastolic (congestive) heart failure (6) Hypernatremia Code(s): E87.0 - HYPEROSMOLALITY AND HYPERNATREMIA Assessment/Plan 86 year old woman with PMhx of Afib, Arrhythmia s/p Cardioversion, CAD, Hypertension, HLD, COPD, Ischemic Colitis, mild CKD (Cr 1.6-1.8 in the EMR) who presented with SOB and found to have Sepsis secondary to Pneumonia with EMANUEL Acute on Chronic Renal Insufficiency in setting fo Sepsis with Pneumonia. EMANUEL Secondary to hemadynamic injury from Sepsis + ARB Renal function now at baseline Sepsis syndrome...Abx as per ID Hx of Hypertension, BP remains low. Hypernatremia..oral fluid intake suboptimal. Will start on cautious IV hydration with 1/2 NS Tachycardia...SVT... Management as per cardiology Annie Cortes MD
--- NOTE | 2017-05-18 15:58 | PN ---
Progress Note, Physician History of Present Illness: Patient without shortness of breath, remains afebrile. States she has diarrhea but as per RN her BMs are soft, without malodor. No other complaints. - Current Medication List Current Medications: Active Medications Acetaminophen (Tylenol Oral Solution -) 650 mg PO Q6H PRN PRN Reason: FEVER OR PAIN Last Admin: 05/17/17 14:22 Dose: 650 mg Guaifenesin (Robitussin Dm -) 10 ml PO Q4H PRN PRN Reason: COUGH Last Admin: 05/17/17 10:45 Dose: 10 ml Meropenem (Merrem (Restricted To Id) -) 500 mg in 10 mls @ 120 mls/hr IVPUSH BID [facility] Last Admin: 05/18/17 10:48 Dose: 120 mls/hr Potassium Chloride 10 meq/ (Sodium Chloride) 1,005 mls @ 42 mls/hr IVPB Q24H [facility] Lidocaine/Aluminum/Magnesium/Simeth (Magic Mouthwash *Sjr Formula* -) 5 ml MM Q6HPO [facility] Last Admin: 05/18/17 14:37 Dose: 5 ml Metoprolol Succinate (Toprol Xl -) 50 mg PO BID [facility] Last Admin: 05/18/17 10:48 Dose: 50 mg Nystatin (Nystatin Oral Suspension -) 500,000 units PO Q6HPO [facility] Last Admin: 05/18/17 14:37 Dose: 500,000 units Pantoprazole Sodium (Protonix -) 40 mg PO DAILY [facility] Last Admin: 05/18/17 10:48 Dose: 40 mg Warfarin Sodium (Coumadin -) 5 mg PO DAILY@1800 [facility] Last Admin: 05/17/17 17:37 Dose: 5 mg - Objective Vital Signs: Vital Signs Temperature 98.7 F 05/18/17 14:57 Pulse Rate 127 H 05/18/17 14:57 Respiratory Rate 22 05/18/17 14:57 Blood Pressure 100/68 05/18/17 14:57 O2 Sat by Pulse Oximetry (%) 100 05/17/17 22:00 Constitutional: Yes: No Distress, Calm Neck: Yes: Supple Cardiovascular: Yes: Tachycardia Respiratory: Yes: CTA Bilaterally Gastrointestinal: Yes: Normal Bowel Sounds, Soft (nontender) Genitourinary: Yes: WNL Integumentary: Yes: WNL Neurological: Yes: Alert, Oriented Labs: CBC, BMP 05/18/17 13:31 05/18/17 08:48 INR, PTT INR 3.79 (0.82-1.09) H D 05/18/17 08:48 Problem List - Problems (1) Healthcare-associated pneumonia Code(s): J18.9 - PNEUMONIA, UNSPECIFIED ORGANISM (2) Altered mental status Code(s): R41.82 - ALTERED MENTAL STATUS, UNSPECIFIED (3) Atrial fibrillation with RVR Code(s): I48.91 - UNSPECIFIED ATRIAL FIBRILLATION (4) COPD mixed type Code(s): J44.9 - CHRONIC OBSTRUCTIVE PULMONARY DISEASE, UNSPECIFIED (5) Leukocytosis Code(s): D72.829 - ELEVATED WHITE BLOOD CELL COUNT, UNSPECIFIED (6) Renal function impairment Code(s): N28.9 - DISORDER OF KIDNEY AND URETER, UNSPECIFIED Assessment/Plan Patient is afebrile, without respiratory distress Leukocytosis resolving continue Meropenem repeat cbc in am If diarrhea noted, send stool for c diff
[2017-05-18] MEDS: WARFARIN NA 5 MG TABLET (UD) PO SCH (17:50)
[2017-05-18] MEDS: POTASSIUM CHLORIDE 10 MEQ in SODIUM CHLORIDE 0.45% 1,000 ML IVPB SCH (19:43)
[2017-05-18] MEDS: AMIODARONE HCL 200 MG TABLET (FP) PO SCH (22:59)
[2017-05-19] MEDS ORDERED: PT OWN MED DRAWER 7, Y5N ONE ×3 (06:24→22:01)
[2017-05-19] MEDS: NYSTATIN 500,000 UNITS/5 ML SUSPENSION PO SCH ×4 (06:30→23:48)
[2017-05-19] MEDS: MAG HYDROX/ALH/SMC/DPHA/LIDO 240 ML MOUTHWASH MM SCH ×4 (06:30→23:48)
[2017-05-19 08:11] LABS: INR 3.03 (0.82-1.09); PROTHROMBIN TIME (PATIENT) 34.2 SEC (9.98-11.88)
[2017-05-19 08:27] LABS: ALK PHOS 47 U/L (45-117); ANION GAP 9 (8-16); BILIRUBIN,TOTAL 0.3 mg/dL (0.2-1.0); CALCIUM 8.4 mg/dL (8.5-10.1); CO2 21 mmol/L (21-32); CREATININE 1.5 mg/dL (0.55-1.02); GLUCOSE,RANDOM 93 mg/dL (74-106); MAGNESIUM 1.7 mg/dL (1.8-2.4); PHOSPHOROUS 3.7 mg/dL (2.5-4.9); SGOT/AST 11 U/L (15-37); SGPT/ALT 13 U/L (12-78); TOT PROT 5.8 g/dl (6.4-8.2)
[2017-05-19] MEDS: AMIODARONE HCL 200 MG TABLET (FP) PO SCH ×2 (10:17→22:13)
[2017-05-19] MEDS: PANTOPRAZOLE 40 MG TABLET (FP) PO SCH (10:17)
[2017-05-19] MEDS: METOPROLOL SUCCINATE 50 MG TAB.SR.24H (FP) PO SCH ×2 (10:17→22:14)
[2017-05-19] MEDS: MEROPENEM 500 MG PUSH 500 MG/10 ML DISP.SYRIN IVPUSH SCH ×2 (10:18→22:13)
--- NOTE | 2017-05-19 11:03 | PATH ---
Surgical Pathology Report Patient Name: [facility]. Rec. #: [id number] /Age/Gender: 1930 (Age: 86) / F Account: [id number] Location: 4 PEDS/ADOL Taken: 05/16/2017 Received: 05/16/2017 Reported: 05/19/2017 Physicians: Polly Kraus M.D. Specimen(s) Received PERIPHERAL BLOOD Clinical History Patient with leukocytosis, differential with nucleated red blood cells, also anemia. Final Diagnosis PERIPHERAL BLOOD: FLOW CYTOMETRY performed and interpreted at [place], [place] ([id number]) shows the following: INTERPRETATION: GRANULOCYTOSIS WITH MILD LEFT SHIFT (see comment). Comment: The differential diagnosis includes a reactive condition or a myeloproliferative neoplasm. Please correlate with morphologic, clinical, and cytogenetic/molecular findings for further classification. Additional molecular studies are pending, and a report will follow. Electronically Signed Rojas Fung M.D. Addendum Reported: 05/21/2017 Addendum Diagnosis BCR-ABL Gene Rearrangement (IS) Analysis performed and interpreted at [place], [place] ([id number]) shows the following: RESULTS: Negative BCR/ABL Major breakpoints (b2a2 and b3a2): Not Detected BCR/ABL Minor breakpoint (e1a2): Not Detected INTERPRETATION: No BCR-ABL translocation was detected in this sample. See [facility] report ([id number]) for additional details. Addendum Reported: 05/22/2017 Addendum Diagnosis PERIPHERAL BLOOD: Molecular Pathology Report received from [facility] in [place], [place] ([id number]) shows the following: JAK2 [id number] MUTATION ANALYSIS BY PCR RESULTS: Only the wild-type JAK2 sequence was detected. INTERPRETATION: Negative for JAK2 (V617F) mutation Rojas Fung M.D. Gross Description Received labelled with the patient's name are 2 lavender top tubes and 2 green top tubes of peripheral blood which are forwarded to [facility] for ancillary testing.
--- NOTE | 2017-05-19 12:16 | PN ---
Progress Note, Physician History of Present Illness: PULMONARY ALERT,NAD,COMFORTABLE,-SOB,-COUGH,-CP - Current Medication List Current Medications: Active Medications Acetaminophen (Tylenol Oral Solution -) 650 mg PO Q6H PRN PRN Reason: FEVER OR PAIN Last Admin: 05/17/17 14:22 Dose: 650 mg Amiodarone HCl (Cordarone -) 200 mg PO BID [facility] Last Admin: 05/19/17 10:17 Dose: 200 mg Guaifenesin (Robitussin Dm -) 10 ml PO Q4H PRN PRN Reason: COUGH Last Admin: 05/17/17 10:45 Dose: 10 ml Meropenem (Merrem (Restricted To Id) -) 500 mg in 10 mls @ 120 mls/hr IVPUSH BID [facility] Last Admin: 05/19/17 10:18 Dose: 120 mls/hr Potassium Chloride 10 meq/ (Sodium Chloride) 1,005 mls @ 42 mls/hr IVPB Q24H [facility] Last Admin: 05/18/17 19:43 Dose: 42 mls/hr Lidocaine/Aluminum/Magnesium/Simeth (Magic Mouthwash *Sjr Formula* -) 5 ml MM Q6HPO [facility] Last Admin: 05/19/17 06:30 Dose: 5 ml Metoprolol Succinate (Toprol Xl -) 50 mg PO BID [facility] Last Admin: 05/19/17 10:17 Dose: 50 mg Nystatin (Nystatin Oral Suspension -) 500,000 units PO Q6HPO [facility] Last Admin: 05/19/17 06:30 Dose: 500,000 units Pantoprazole Sodium (Protonix -) 40 mg PO DAILY [facility] Last Admin: 05/19/17 10:17 Dose: 40 mg Warfarin Sodium (Coumadin -) 5 mg PO DAILY@1800 [facility] Last Admin: 05/18/17 17:50 Dose: Not Given - Objective Vital Signs: Vital Signs Temperature 99.2 F 05/19/17 09:00 Pulse Rate 126 H 05/19/17 09:00 Respiratory Rate 20 05/19/17 09:00 Blood Pressure 109/67 05/19/17 09:00 O2 Sat by Pulse Oximetry (%) 96 05/18/17 21:00 Constitutional: Yes: Calm, Obese Eyes: Yes: WNL HENT: Yes: WNL Neck: Yes: WNL Cardiovascular: Yes: Pulse Irregular, S1, S2 Respiratory: Yes: Diminished Gastrointestinal: Yes: Normal Bowel Sounds, Soft Extremities: Yes: WNL Edema: No Labs: CBC, BMP 05/18/17 13:31 05/19/17 05:35 INR, PTT INR 3.03 (0.82-1.09) H 05/19/17 05:35 Problem List - Problems (1) Persistent atrial fibrillation Code(s): I48.1 - PERSISTENT ATRIAL FIBRILLATION (2) Sepsis Code(s): A41.9 - SEPSIS, UNSPECIFIED ORGANISM (3) Altered mental status Code(s): R41.82 - ALTERED MENTAL STATUS, UNSPECIFIED (4) Atrial fibrillation with RVR Code(s): I48.91 - UNSPECIFIED ATRIAL FIBRILLATION (5) CKD stage G3b/A3, GFR 30-44 and albumin creatinine ratio >300 mg/g Code(s): N18.3 - CHRONIC KIDNEY DISEASE, STAGE 3 (MODERATE) (6) COPD mixed type Code(s): J44.9 - CHRONIC OBSTRUCTIVE PULMONARY DISEASE, UNSPECIFIED (7) Diastolic CHF Code(s): I50.30 - UNSPECIFIED DIASTOLIC (CONGESTIVE) HEART FAILURE Qualifiers: Congestive heart failure chronicity: acute Qualified Code(s): I50.31 - Acute diastolic (congestive) heart failure Assessment/Plan ASSESSMENT AND PLAN: r/o Pneumonia CHF Septic Shock resolved Acute Kidney Injury Toxic Metabolic Encephalopathy Atrial Fibrillation Obesity Anemia (?) OSAS - ABX per ID - rate control - AC - aspiration precautions - Sleep screen after discharge - chest x-ray DR GOMEZ
--- NOTE | 2017-05-19 14:13 | EKG ---
Test Reason : Blood Pressure : / mmHG Vent. Rate : 124 BPM Atrial Rate : 125 BPM P-R Int : 000 ms QRS Dur : 098 ms QT Int : 324 ms P-R-T Axes : 000 -35 099 degrees QTc Int : 465 ms ATRIAL FIBRILLATION WITH RAPID VENTRICULAR RESPONSE LEFT AXIS DEVIATION NONSPECIFIC ST AND T WAVE ABNORMALITY ABNORMAL ECG WHEN COMPARED WITH ECG OF 10-MAY-2017 09:30, VENT. RATE HAS INCREASED BY 42 BPM T WAVE VARIATION Confirmed by BILLIE KRAFT, VENANCIO ([id number]) on 05/19/2017 2:12:54 PM Referred By: Eboni BARTHOLOMEW Confirmed By:VENANCIO WISE MD
--- NOTE | 2017-05-19 16:04 | PN ---
Progress Note, Physician Chief Complaint: Infectious Disease f/u: History of Present Illness: Pt appears comfortable. No shortness of breath, remains afebrile. Has soft BMs but no abd pain/cramping. No specific complaints. - Current Medication List Current Medications: Active Medications Acetaminophen (Tylenol Oral Solution -) 650 mg PO Q6H PRN PRN Reason: FEVER OR PAIN Last Admin: 05/17/17 14:22 Dose: 650 mg Amiodarone HCl (Cordarone -) 200 mg PO BID [facility] Last Admin: 05/19/17 10:17 Dose: 200 mg Guaifenesin (Robitussin Dm -) 10 ml PO Q4H PRN PRN Reason: COUGH Last Admin: 05/17/17 10:45 Dose: 10 ml Meropenem (Merrem (Restricted To Id) -) 500 mg in 10 mls @ 120 mls/hr IVPUSH BID [facility] Last Admin: 05/19/17 10:18 Dose: 120 mls/hr Potassium Chloride 10 meq/ (Sodium Chloride) 1,005 mls @ 42 mls/hr IVPB Q24H [facility] Last Admin: 05/18/17 19:43 Dose: 42 mls/hr Lidocaine/Aluminum/Magnesium/Simeth (Magic Mouthwash *Sjr Formula* -) 5 ml MM Q6HPO [facility] Last Admin: 05/19/17 06:30 Dose: 5 ml Metoprolol Succinate (Toprol Xl -) 50 mg PO BID [facility] Last Admin: 05/19/17 10:17 Dose: 50 mg Nystatin (Nystatin Oral Suspension -) 500,000 units PO Q6HPO [facility] Last Admin: 05/19/17 06:30 Dose: 500,000 units Pantoprazole Sodium (Protonix -) 40 mg PO DAILY [facility] Last Admin: 05/19/17 10:17 Dose: 40 mg Warfarin Sodium (Coumadin -) 5 mg PO DAILY@1800 [facility] Last Admin: 05/18/17 17:50 Dose: Not Given - Objective Vital Signs: Vital Signs Temperature 99.2 F 05/19/17 09:00 Pulse Rate 126 H 05/19/17 09:00 Respiratory Rate 20 05/19/17 09:00 Blood Pressure 109/67 05/19/17 09:00 O2 Sat by Pulse Oximetry (%) 96 05/18/17 21:00 Constitutional: Yes: No Distress, Calm Neck: Yes: Supple Cardiovascular: Yes: Tachycardia, Pulse Irregular Respiratory: Yes: Regular Gastrointestinal: Yes: Normal Bowel Sounds, Soft Genitourinary: Yes: WNL Integumentary: Yes: WNL Neurological: Yes: Alert, Oriented Labs: CBC, BMP 05/19/17 05:35 INR, PTT INR 3.03 (0.82-1.09) H 05/19/17 05:35 C.diff toxin not detected Problem List - Problems (1) Healthcare-associated pneumonia Code(s): J18.9 - PNEUMONIA, UNSPECIFIED ORGANISM (2) Altered mental status Code(s): R41.82 - ALTERED MENTAL STATUS, UNSPECIFIED (3) Atrial fibrillation with RVR Code(s): I48.91 - UNSPECIFIED ATRIAL FIBRILLATION (4) COPD mixed type Code(s): J44.9 - CHRONIC OBSTRUCTIVE PULMONARY DISEASE, UNSPECIFIED (5) Leukocytosis Code(s): D72.829 - ELEVATED WHITE BLOOD CELL COUNT, UNSPECIFIED (6) Renal function impairment Code(s): N28.9 - DISORDER OF KIDNEY AND URETER, UNSPECIFIED Assessment/Plan CHF s/p septic shock Leukocytosis PNA Acute Kidney Injury Atrial Fibrillation w RVR Anemia -- pt without respiratory distress, afebrile -- send c. diff pcr -- awaiting repeat chest xray, and cbc results. If improved plan to d/c antibiotics. -- continue monitor closely
[2017-05-19 16:38] LABS: BASOPHIL 0.9 % (0-2.0); EOSINOPHIL 3.2 % (0-4.5); MCH 31.8 pg (25.7-33.7); MCHC 32.7 g/dl (32.0-36.0); MEAN CELL VOLUME 97.3 fl (80-96); NEUTROPHILS 68.2 % (42.8-82.8); RDW 26.3 % (11.6-15.6); WHITE BLOOD COUNT 14.1 K/mm3 (4.0-10.0)
--- NOTE | 2017-05-19 17:33 | PN ---
Progress Note (short form) - Note Progress Note: Renal Follow up for EMANUEL Pt seen and examined at the bedside awake and alert upset about getting blood draws denies any sob, chest pain + non productive cough Vital Signs Temperature 99.2 F 05/19/17 09:00 Pulse Rate 126 H 05/19/17 09:00 Respiratory Rate 20 05/19/17 09:00 Blood Pressure 109/67 05/19/17 09:00 O2 Sat by Pulse Oximetry (%) 96 05/18/17 21:00 Intake & Output 05/16/17 05/17/17 05/18/17 05/19/17 23:59 23:59 23:59 23:59 Intake Total [phone] 7576 Balance 586 339 219 5854 NAD awake and alert RRR CTA (anterior exam) No LE edema CBC, BMP 05/19/17 15:00 05/19/17 05:35 Current Medications Acetaminophen (Tylenol Oral Solution -) 650 mg PO Q6H PRN PRN Reason: FEVER OR PAIN Last Admin: 05/17/17 14:22 Dose: 650 mg Amiodarone HCl (Cordarone -) 200 mg PO BID [facility] Last Admin: 05/19/17 10:17 Dose: 200 mg Guaifenesin (Robitussin Dm -) 10 ml PO Q4H PRN PRN Reason: COUGH Last Admin: 05/17/17 10:45 Dose: 10 ml Meropenem (Merrem (Restricted To Id) -) 500 mg in 10 mls @ 120 mls/hr IVPUSH BID [facility] Last Admin: 05/19/17 10:18 Dose: 120 mls/hr Potassium Chloride 10 meq/ (Sodium Chloride) 1,005 mls @ 42 mls/hr IVPB Q24H [facility] Last Admin: 05/18/17 19:43 Dose: 42 mls/hr Lidocaine/Aluminum/Magnesium/Simeth (Magic Mouthwash *Sjr Formula* -) 5 ml MM Q6HPO [facility] Last Admin: 05/19/17 06:30 Dose: 5 ml Metoprolol Succinate (Toprol Xl -) 50 mg PO BID [facility] Last Admin: 05/19/17 10:17 Dose: 50 mg Nystatin (Nystatin Oral Suspension -) 500,000 units PO Q6HPO [facility] Last Admin: 05/19/17 06:30 Dose: 500,000 units Pantoprazole Sodium (Protonix -) 40 mg PO DAILY [facility] Last Admin: 05/19/17 10:17 Dose: 40 mg Warfarin Sodium (Coumadin -) 5 mg PO DAILY@1800 [facility] Last Admin: 05/18/17 17:50 Dose: Not Given 86 year old woman with PMhx of Afib, Arrythmia s/p Cardioversion, CAD, Hypertension, HLD, COPD, Ischemic Colitis, mild CKD (Cr 1.6-1.8 in the EMR) who presented with SOB and found to have Sepsis secondary to PNA with EMANUEL with Cr of 5. #Acute on Chronic Renal Insufficiency in setting fo Sepsis/PNA with preserved tubular function secondary to hemadynamic injury from Sepsis + ARB Renal function is now improved and stable #Hypernatremia in setting of diuretics and poor oral intake improving on low rate D5 1/2 NS oral fluid intake as tolerated #Sepsis syndrome with PNA Abx as per ID O2 as needed Alex Diaz DO
[2017-05-19] MEDS: POTASSIUM CHLORIDE 10 MEQ in SODIUM CHLORIDE 0.45% 1,000 ML IVPB SCH (17:36)
[2017-05-19] MEDS: WARFARIN NA 5 MG TABLET (UD) PO SCH (18:48)
--- NOTE | 2017-05-19 19:58 | PN ---
Progress Note (short form) - Note Progress Note: 86 year old AA female with sepsis, new onset atrial flutter/fib. with rapid ventricular response Chronic UTI, persistent leukocytosis. No SOB reported. No palpitation or chest discomfort. She has loose bowel movements and is being investigated for C Difficle Active Medications Generic Name Dose Route Start Last Admin Trade Name Freq PRN Reason Stop Dose Admin Acetaminophen 650 mg 05/14/17 18:59 05/17/17 14:22 Tylenol Oral Solution - PO 650 mg Q6H PRN Administration FEVER OR PAIN Amiodarone HCl 200 mg 05/18/17 22:00 05/19/17 10:17 Cordarone - PO 200 mg BID MALIK Administration Guaifenesin 10 ml 05/14/17 18:59 05/17/17 10:45 Robitussin Dm - PO 10 ml Q4H PRN Administration COUGH Meropenem 500 mg in 10 mls @ 120 mls/hr 05/14/17 22:00 05/19/17 10:18 Merrem (Restricted To Id) - IVPUSH 120 mls/hr BID [facility] Administration Potassium Chloride 10 meq/ 1,005 mls @ 42 mls/hr 05/18/17 14:45 05/19/17 17: 36 Sodium Chloride IVPB 42 mls/hr Q24H [facility] Administration Lidocaine/Aluminum/Magnesium/Simeth 5 ml 05/15/17 00:00 05/19/17 18:18 Magic Mouthwash *Sjr Formula* - MM 5 ml Q6HPO [facility] Administration Metoprolol Succinate 50 mg 05/14/17 22:00 05/19/17 10:17 Toprol Xl - PO 50 mg BID [facility] Administration Nystatin 500,000 units 05/15/17 00:00 05/19/17 18:18 Nystatin Oral Suspension - PO 500,000 units Q6HPO [facility] Administration Pantoprazole Sodium 40 mg 05/15/17 10:00 05/19/17 10:17 Protonix - PO 40 mg DAILY [facility] Administration Warfarin Sodium 5 mg 05/17/17 18:00 05/19/17 18:48 Coumadin - PO Not Given DAILY@1800 MALIK 86 year old lethargic c/o weakness, pallor 1+, no cyanosis or jaundice. Last Vital Signs Temp Pulse Resp BP Pulse Ox 99.2 F 126 H irregular 20 109/67 96 05/19/17 09:00 05/19/17 09:00 05/19/17 09:00 05/19/17 09:00 05/18/17 21:00 Neck: supple, no JVD, Carotids are equal. HEART: PMI was in the 5th ICS, distant heart sounds, no murmur or gallop appreciated. LUNGS:Clear on auscultation. ABDOMEN:Obese, nontender, no organomegaly or palpable masses felt. EXTREMITIES:No calf tenderness 1+ pretibial edema.dependent edema. CBC, BMP 05/19/17 15:00 05/19/17 05:35 CBC, BMP 05/19/17 15:00 05/19/17 05:35 A: 1. Atrial fib/flutter with rapid ventricular response. 2. Chronic drug resistent UTI. 3. COPD. 4. Hypertension. 5. Hypomagnesemia 6. CAD, angina pectoris. 7. Leukocytosis, anemia and nucleated RBCs, etiology needs to be determined: a). Myelodysplastic syndrome needs exclusion. b). Leukemia. 8. CKD. 9. Diarrhea RECOMMENDATION: 1. EKG in AM 2. May need to increase dose of Toprol if HR remains elevated 3. Spoke to daughter at length regarding her cardiac status.
[2017-05-19 20:56] LABS: POLYCHROMASIA 1+
[2017-05-19 20:57] LABS: ANISOCYTOSIS 3+; MACROCYTOSIS 1+; MICROCYTOSIS 1+
[2017-05-20] MEDS ORDERED: PT OWN MED DRAWER 7, Y5N ONE ×2 (06:06→11:36)
[2017-05-20] MEDS: NYSTATIN 500,000 UNITS/5 ML SUSPENSION PO SCH ×3 (06:19→17:47)
[2017-05-20] MEDS: MAG HYDROX/ALH/SMC/DPHA/LIDO 240 ML MOUTHWASH MM SCH ×3 (06:19→17:47)
[2017-05-20 08:55] LABS: ANION GAP 5 (8-16); CALCIUM 8.1 mg/dL (8.5-10.1); CO2 24 mmol/L (21-32); CREATININE 1.6 mg/dL (0.55-1.02); GLUCOSE,RANDOM 98 mg/dL (74-106); MAGNESIUM 1.9 mg/dL (1.8-2.4); PHOSPHOROUS 3.5 mg/dL (2.5-4.9)
[2017-05-20] MEDS ORDERED: VANCOMYCIN 250 MG/5 ML ORAL SOLUTION PO SCH (10:00)
[2017-05-20] MEDS ORDERED: VANCOMYCIN 250 MG/5 ML ORAL SOLUTION PO ONE (11:00)
[2017-05-20] MEDS: METOPROLOL SUCCINATE 50 MG TAB.SR.24H (FP) PO SCH (11:43)
[2017-05-20] MEDS: PANTOPRAZOLE 40 MG TABLET (FP) PO SCH (11:43)
[2017-05-20] MEDS: MEROPENEM 500 MG PUSH 500 MG/10 ML DISP.SYRIN IVPUSH SCH ×2 (11:43→22:45)
[2017-05-20] MEDS: AMIODARONE HCL 200 MG TABLET (FP) PO SCH ×2 (11:43→22:48)
--- NOTE | 2017-05-20 12:22 | PN ---
Progress Note (short form) - Note Progress Note: 86 year old AA female with sepsis, new onset atrial flutter/fib. with rapid ventricular response Chronic UTI, persistent leukocytosis. Patient is in isolation foe diarrhea, remains in atrial flutter with 2:1 conduction, No SOB, chest pain or discomfort, hemodynamics are stable. Active Medications Acetaminophen (Tylenol Oral Solution -) 650 mg PO Q6H PRN PRN Reason: FEVER OR PAIN Last Admin: 05/17/17 14:22 Dose: 650 mg Amiodarone HCl (Cordarone -) 200 mg PO BID [facility] Last Admin: 05/20/17 11:43 Dose: 200 mg Guaifenesin (Robitussin Dm -) 10 ml PO Q4H PRN PRN Reason: COUGH Last Admin: 05/17/17 10:45 Dose: 10 ml Meropenem (Merrem (Restricted To Id) -) 500 mg in 10 mls @ 120 mls/hr IVPUSH BID [facility] Last Admin: 05/20/17 11:43 Dose: 120 mls/hr Potassium Chloride 10 meq/ (Sodium Chloride) 1,005 mls @ 42 mls/hr IVPB Q24H [facility] Last Admin: 05/19/17 17:36 Dose: 42 mls/hr Lidocaine/Aluminum/Magnesium/Simeth (Magic Mouthwash *Sjr Formula* -) 5 ml MM Q6HPO [facility] Last Admin: 05/20/17 11:44 Dose: 5 ml Metoprolol Succinate (Toprol Xl -) 50 mg PO BID [facility] Last Admin: 05/20/17 11:43 Dose: 50 mg Nystatin (Nystatin Oral Suspension -) 500,000 units PO Q6HPO [facility] Last Admin: 05/20/17 11:43 Dose: 500,000 units Pantoprazole Sodium (Protonix -) 40 mg PO DAILY [facility] Last Admin: 05/20/17 11:43 Dose: 40 mg Vancomycin HCl (Vancomycin Oral Solution) 125 mg PO Q6HPO [facility] Warfarin Sodium (Coumadin -) 5 mg PO DAILY@1800 [facility] Last Admin: 05/19/17 18:48 Dose: Not Given 86 year old lethargic c/o weakness, pallor 1+, no cyanosis or jaundice. Last Vital Sign Temp Pulse Resp BP Pulse Ox 98.8 F 128 H 20 93/64 98 05/20/17 10:00 05/20/17 10:00 05/20/17 10:00 05/20/17 10:00 05/19/17 21:00 Neck: supple, no JVD, Carotids are equal. HEART: PMI was in the 5th ICS, distant heart sounds, no murmur or gallop appreciated. LUNGS:Clear on auscultation. ABDOMEN:Obese, nontender, no organomegaly or palpable masses felt. EXTREMITIES:No calf tenderness, no dependent edema. CBC, BMP 05/19/17 15:00 05/20/17 08:05 A: 1. Atrial fib/flutter with rapid ventricular response. 2. Diarrhea, C Difficle is being excluded. 3. COPD. 4. Hypertension. 6. CAD, angina pectoris. 7. CAD, angina pectoris, currently stable 8. Anemia, etiology to be determined. RECOMMENDATION: 1. Workup for diarrhea in progress. 2. Placed on vancomycin by ID. 3. Increase dose of Toprol to 75mg. BID 4. F/u EKG
--- NOTE | 2017-05-20 13:02 | PN ---
Progress Note, Physician Chief Complaint: Still c/o diarrhea , tachycardia, no c/o chest pain or SOB History of Present Illness: 86 yrs old f multiple co-morbidities including, HTN, sHF, Afib s/p cardioversion , CKD stage 3, recently discharged to [place] readmitted with worsening renal function, pneumonia and sepsis, transferred to tele floor after stablization, developed diarrhea,elevated TWBC, stool C Diff + - Current Medication List Current Medications: Active Medications Acetaminophen (Tylenol Oral Solution -) 650 mg PO Q6H PRN PRN Reason: FEVER OR PAIN Last Admin: 05/17/17 14:22 Dose: 650 mg Amiodarone HCl (Cordarone -) 200 mg PO BID [facility] Last Admin: 05/20/17 11:43 Dose: 200 mg Guaifenesin (Robitussin Dm -) 10 ml PO Q4H PRN PRN Reason: COUGH Last Admin: 05/17/17 10:45 Dose: 10 ml Meropenem (Merrem (Restricted To Id) -) 500 mg in 10 mls @ 120 mls/hr IVPUSH BID [facility] Last Admin: 05/20/17 11:43 Dose: 120 mls/hr Potassium Chloride 10 meq/ (Sodium Chloride) 1,005 mls @ 42 mls/hr IVPB Q24H [facility] Last Admin: 05/19/17 17:36 Dose: 42 mls/hr Lidocaine/Aluminum/Magnesium/Simeth (Magic Mouthwash *Sjr Formula* -) 5 ml MM Q6HPO [facility] Last Admin: 05/20/17 11:44 Dose: 5 ml Metoprolol Succinate (Toprol Xl -) 75 mg PO BID [facility] Nystatin (Nystatin Oral Suspension -) 500,000 units PO Q6HPO [facility] Last Admin: 05/20/17 11:43 Dose: 500,000 units Pantoprazole Sodium (Protonix -) 40 mg PO DAILY [facility] Last Admin: 05/20/17 11:43 Dose: 40 mg Vancomycin HCl (Vancomycin Oral Solution) 125 mg PO Q6HPO [facility] Warfarin Sodium (Coumadin -) 5 mg PO DAILY@1800 [facility] Last Admin: 05/19/17 18:48 Dose: Not Given - Objective Vital Signs: Vital Signs Temperature 98.8 F 05/20/17 10:00 Pulse Rate 128 H 05/20/17 10:00 Respiratory Rate 20 05/20/17 10:00 Blood Pressure 93/64 05/20/17 10:00 O2 Sat by Pulse Oximetry (%) 98 05/19/17 21:00 Elderly F looks weak not in distress HEENT: MM Moist, mild anemia, no Icterus NECK: JVD +, no Bruit, Thyroid Central CHEST: Basal crepts and decrese AE CVS: S1S2 Irr tcahtcardia ABD: Obese, mild tenderness, Bs + EXT: Trace edema feet, no calf enderness DIRECTOR 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: AOx3 non focal Labs: CBC, BMP 05/19/17 15:00 05/20/17 08:05 INR, PTT INR 3.03 (0.82-1.09) H 05/19/17 05:35 C Diff + Problem List - Problems (1) Healthcare-associated pneumonia Assessment/Plan: So falr all cultures are negative, on Meropenam F/U sputum, Blood and urine culture Code(s): J18.9 - PNEUMONIA, UNSPECIFIED ORGANISM (2) Sepsis Assessment/Plan: Improving on abx Code(s): A41.9 - SEPSIS, UNSPECIFIED ORGANISM (3) Altered mental status Assessment/Plan: Due to sepsis and Metabolic encephalopathy, improved Code(s): R41.82 - ALTERED MENTAL STATUS, UNSPECIFIED (4) COPD mixed type Assessment/Plan: Cont current Nebs treatment saturating well Code(s): J44.9 - CHRONIC OBSTRUCTIVE PULMONARY DISEASE, UNSPECIFIED (5) CHF (NYHA class II, ACC/AHA stage C) Assessment/Plan: Patient has systolic HF cont current management Code(s): I50.9 - HEART FAILURE, UNSPECIFIED (6) Persistent atrial fibrillation Assessment/Plan: Patient has persistent Afib rate is around 100 F/U Cardiology recommendations increse Metoprolol 75 mg BID Code(s): I48.1 - PERSISTENT ATRIAL FIBRILLATION (7) Renal function impairment Assessment/Plan: Improved F/U Renal recommendations and BMP Code(s): N28.9 - DISORDER OF KIDNEY AND URETER, UNSPECIFIED (8) C. difficile diarrhea Assessment/Plan: Contact Isolation add Vancomycine 125 mg q 6 hrly. Code(s): A04.72 - ENTEROCOLITIS D/T CLOSTRIDIUM DIFFICILE, NOT SPCF RECUR
--- NOTE | 2017-05-20 13:47 | PN ---
Progress Note (short form) - Note Progress Note: Renal Follow up for EMANUEL Pt seen and examined at the bedside continues to have diarrhea no sob, chest pain no N/V good oral intake today Vital Signs Temperature 98.8 F 05/20/17 10:00 Pulse Rate 128 H 05/20/17 10:00 Respiratory Rate 20 05/20/17 10:00 Blood Pressure 93/64 05/20/17 10:00 O2 Sat by Pulse Oximetry (%) 98 05/19/17 21:00 Intake & Output 05/17/17 05/18/17 05/19/17 05/20/17 23:59 23:59 23:59 23:59 Intake Total 490 073 2070 544 Balance 377 554 8560 544 NAD awake and alert RRR CTA (anterior exam) No LE edema CBC, BMP 05/19/17 15:00 05/20/17 08:05 Current Medications Acetaminophen (Tylenol Oral Solution -) 650 mg PO Q6H PRN PRN Reason: FEVER OR PAIN Last Admin: 05/17/17 14:22 Dose: 650 mg Amiodarone HCl (Cordarone -) 200 mg PO BID [facility] Last Admin: 05/20/17 11:43 Dose: 200 mg Guaifenesin (Robitussin Dm -) 10 ml PO Q4H PRN PRN Reason: COUGH Last Admin: 05/17/17 10:45 Dose: 10 ml Meropenem (Merrem (Restricted To Id) -) 500 mg in 10 mls @ 120 mls/hr IVPUSH BID [facility] Last Admin: 05/20/17 11:43 Dose: 120 mls/hr Potassium Chloride 10 meq/ (Sodium Chloride) 1,005 mls @ 42 mls/hr IVPB Q24H [facility] Last Admin: 05/19/17 17:36 Dose: 42 mls/hr Lidocaine/Aluminum/Magnesium/Simeth (Magic Mouthwash *Sjr Formula* -) 5 ml MM Q6HPO [facility] Last Admin: 05/20/17 11:44 Dose: 5 ml Metoprolol Succinate (Toprol Xl -) 75 mg PO BID [facility] Nystatin (Nystatin Oral Suspension -) 500,000 units PO Q6HPO [facility] Last Admin: 05/20/17 11:43 Dose: 500,000 units Pantoprazole Sodium (Protonix -) 40 mg PO DAILY [facility] Last Admin: 05/20/17 11:43 Dose: 40 mg Vancomycin HCl (Vancomycin Oral Solution) 125 mg PO Q6HPO [facility] Warfarin Sodium (Coumadin -) 5 mg PO DAILY@1800 [facility] Last Admin: 05/19/17 18:48 Dose: Not Given 86 year old woman with PMhx of Afib, Arrythmia s/p Cardioversion, CAD, Hypertension, HLD, COPD, Ischemic Colitis, mild CKD (Cr 1.6-1.8 in the EMR) who presented with SOB and found to have Sepsis secondary to PNA with EMANUEL with Cr of 5. #Acute on Chronic Renal Insufficiency in setting fo Sepsis/PNA with preserved tubular function Renal function improved to baseline continue 1/2 NS as pt continues to have diarrhea Trend BMP daily #Hypernatremia in setting of diuretics and poor oral intake continue hypotonic IVF #Sepsis syndrome with PNA s/p ABx #C-diff diarrhea continue PO emeli Diaz DO
--- NOTE | 2017-05-20 14:03 | PN ---
Progress Note (short form) - Note Progress Note: PULMONARY Denies shortness of breath, cough or wheezing. Last Vital Signs Temp Pulse Resp BP Pulse Ox 98.8 F 128 H 20 93/64 98 05/20/17 10:00 05/20/17 10:00 05/20/17 10:00 05/20/17 10:00 05/19/17 21:00 Gen: NAD at rest Heart: tachycardic, regular Lung: decreased breth sounds at the bases Abd: soft, nontender Ext: no edema CBC, BMP 05/19/17 15:00 05/20/17 08:05 Active Medications Acetaminophen (Tylenol Oral Solution -) 650 mg PO Q6H PRN PRN Reason: FEVER OR PAIN Last Admin: 05/17/17 14:22 Dose: 650 mg Amiodarone HCl (Cordarone -) 200 mg PO BID [facility] Last Admin: 05/20/17 11:43 Dose: 200 mg Guaifenesin (Robitussin Dm -) 10 ml PO Q4H PRN PRN Reason: COUGH Last Admin: 05/17/17 10:45 Dose: 10 ml Meropenem (Merrem (Restricted To Id) -) 500 mg in 10 mls @ 120 mls/hr IVPUSH BID [facility] Last Admin: 05/20/17 11:43 Dose: 120 mls/hr Potassium Chloride 10 meq/ (Sodium Chloride) 1,005 mls @ 42 mls/hr IVPB Q24H [facility] Last Admin: 05/19/17 17:36 Dose: 42 mls/hr Lidocaine/Aluminum/Magnesium/Simeth (Magic Mouthwash *Sjr Formula* -) 5 ml MM Q6HPO [facility] Last Admin: 05/20/17 11:44 Dose: 5 ml Metoprolol Succinate (Toprol Xl -) 75 mg PO BID [facility] Nystatin (Nystatin Oral Suspension -) 500,000 units PO Q6HPO [facility] Last Admin: 05/20/17 11:43 Dose: 500,000 units Pantoprazole Sodium (Protonix -) 40 mg PO DAILY [facility] Last Admin: 05/20/17 11:43 Dose: 40 mg Vancomycin HCl (Vancomycin Oral Solution) 125 mg PO Q6HPO [facility] Warfarin Sodium (Coumadin -) 5 mg PO DAILY@1800 [facility] Last Admin: 05/19/17 18:48 Dose: Not Given A/P r/o Pneumonia CHF Septic Shock resolved Acute Kidney Injury Toxic Metabolic Encephalopathy Atrial Fibrillation Obesity Anemia r/o JYOTI - antibiotics per ID - rate control - continue anticoagulation - aspiration precautions - PSG as outpt
--- NOTE | 2017-05-20 15:20 | PN ---
Progress Note (short form) - Note Progress Note: Patient seen and examined Chart reviewed. She says she feels better. O/E: Cor: RSR, No murmurs, No gallops Lungs: Clear to P&A Abd: Soft, Normal bowel sounds, No organomegaly Ext:No significant edema Skin: No rashes, Integument intact Temp Pulse Resp BP Pulse Ox 98.8 F 128 H 20 93/64 98 05/20/17 10:00 05/20/17 10:00 05/20/17 10:00 05/20/17 10:00 05/20/17 09:00 CBC, BMP 05/19/17 15:00 05/20/17 08:05 Current Medications Generic Name Dose Route Start Last Admin Trade Name Freq PRN Reason Stop Dose Admin Acetaminophen 650 mg 05/14/17 18:59 05/17/17 14:22 Tylenol Oral Solution - PO 650 mg Q6H PRN Administration FEVER OR PAIN Amiodarone HCl 200 mg 05/18/17 22:00 05/20/17 11:43 Cordarone - PO 200 mg BID MALIK Administration Guaifenesin 10 ml 05/14/17 18:59 05/17/17 10:45 Robitussin Dm - PO 10 ml Q4H PRN Administration COUGH Meropenem 500 mg in 10 mls @ 120 mls/hr 05/14/17 22:00 05/20/17 11:43 Merrem (Restricted To Id) - IVPUSH 120 mls/hr BID MALIK Administration Potassium Chloride 10 meq/ 1,005 mls @ 42 mls/hr 05/18/17 14:45 05/19/17 17: 36 Sodium Chloride IVPB 42 mls/hr Q24H MALIK Administration Lidocaine/Aluminum/Magnesium/Simeth 5 ml 05/15/17 00:00 05/20/17 11:44 Magic Mouthwash *Sjr Formula* - MM 5 ml Q6HPO MALIK Administration Metoprolol Succinate 75 mg 05/20/17 22:00 Toprol Xl - PO BID MALIK Nystatin 500,000 units 05/15/17 00:00 05/20/17 11:43 Nystatin Oral Suspension - PO 500,000 units Q6HPO MALIK Administration Pantoprazole Sodium 40 mg 05/15/17 10:00 05/20/17 11:43 Protonix - PO 40 mg DAILY MALIK Administration Vancomycin HCl 125 mg 05/20/17 12:00 Vancomycin Oral Solution PO Q6HPO MALIK Warfarin Sodium 5 mg 05/17/17 18:00 05/19/17 18:48 Coumadin - PO Not Given DAILY@1800 MALIK Leucocytosis Anemia New onset a fib on AC Being treated for PNA causing sepsis syndrome EMANUEL improving Likely reactive. Anemia of chronic disease likely stool occult neg. flow negative less likely molecular studies would be positive, but would follow-up on the results. TSH--nl on AC for A FIB.
[2017-05-20] MEDS: WARFARIN NA 5 MG TABLET (UD) PO SCH (17:47)
[2017-05-20] MEDS: POTASSIUM CHLORIDE 10 MEQ in SODIUM CHLORIDE 0.45% 1,000 ML IVPB SCH (17:48)
[2017-05-20] MEDS: VANCOMYCIN 250 MG/5 ML ORAL SOLUTION PO SCH (18:24)
[2017-05-20] MEDS: METOPROLOL SUCCINATE 25 MG TAB.SR.24H (FP) PO SCH (22:47)
[2017-05-21] MEDS: MAG HYDROX/ALH/SMC/DPHA/LIDO 240 ML MOUTHWASH MM SCH ×4 (00:34→17:48)
[2017-05-21] MEDS: NYSTATIN 500,000 UNITS/5 ML SUSPENSION PO SCH ×5 (00:34→23:18)
[2017-05-21] MEDS: VANCOMYCIN 250 MG/5 ML ORAL SOLUTION PO SCH ×5 (00:36→23:30)
[2017-05-21 09:37] LABS: BASOPHIL 1.1 % (0-2.0); EOSINOPHIL 4.7 % (0-4.5); MCH 31.1 pg (25.7-33.7); MEAN PLT VOLUME 9.1 fl (7.5-11.1); NEUTROPHILS 66.8 % (42.8-82.8); PLATELET COUNT 269 K/MM3 (134-434); RDW 26.9 % (11.6-15.6); WHITE BLOOD COUNT 12.3 K/mm3 (4.0-10.0)
[2017-05-21 09:39] LABS: INR 1.95 (0.82-1.09)
[2017-05-21 09:47] LABS: ALBUMIN 1.9 g/dl (3.4-5.0); ALK PHOS 56 U/L (45-117); ANION GAP 6 (8-16); BILIRUBIN,TOTAL 0.4 mg/dL (0.2-1.0); CO2 23 mmol/L (21-32); CREATININE 1.5 mg/dL (0.55-1.02); GLUCOSE,RANDOM 93 mg/dL (74-106); MAGNESIUM 1.8 mg/dL (1.8-2.4); PHOSPHOROUS 3.4 mg/dL (2.5-4.9); SGOT/AST 12 U/L (15-37); SGPT/ALT 15 U/L (12-78); TOT PROT 5.9 g/dl (6.4-8.2)
[2017-05-21] MEDS ORDERED: PT OWN MED DRAWER 7, Y5N ONE ×2 (10:41→21:58)
[2017-05-21] MEDS: METOPROLOL SUCCINATE 25 MG TAB.SR.24H (FP) PO SCH ×2 (10:44→22:01)
[2017-05-21] MEDS: PANTOPRAZOLE 40 MG TABLET (FP) PO SCH (10:44)
[2017-05-21] MEDS: AMIODARONE HCL 200 MG TABLET (FP) PO SCH ×2 (10:44→22:01)
[2017-05-21] MEDS: MEROPENEM 500 MG PUSH 500 MG/10 ML DISP.SYRIN IVPUSH SCH (10:47)
--- NOTE | 2017-05-21 12:52 | EKG ---
Test Reason : Blood Pressure : / mmHG Vent. Rate : 112 BPM Atrial Rate : 112 BPM P-R Int : 000 ms QRS Dur : 100 ms QT Int : 346 ms P-R-T Axes : 086 -36 043 degrees QTc Int : 472 ms SINUS TACHYCARDIA LEFT AXIS DEVIATION POSSIBLE ANTERIOR INFARCT , AGE UNDETERMINED ABNORMAL ECG WHEN COMPARED WITH ECG OF 18-MAY-2017 14:17, SINUS RHYTHM HAS REPLACED ATRIAL FIBRILLATION ST NO LONGER ELEVATED IN INFERIOR LEADS NONSPECIFIC T WAVE ABNORMALITY, IMPROVED IN LATERAL LEADS Confirmed by JOSEFINA MARTINEZ MD ([id number]) on 05/21/2017 12:52:28 PM Referred By: Eboni BARTHOLOMEW Confirmed By:JOSEFINA MARTINEZ MD
--- NOTE | 2017-05-21 12:53 | PN ---
Progress Note, Physician History of Present Illness: pulmonary alert,feeling better,-cp,less dyspneic - Current Medication List Current Medications: Active Medications Acetaminophen (Tylenol Oral Solution -) 650 mg PO Q6H PRN PRN Reason: FEVER OR PAIN Last Admin: 05/17/17 14:22 Dose: 650 mg Amiodarone HCl (Cordarone -) 200 mg PO BID [facility] Last Admin: 05/21/17 10:44 Dose: 200 mg Guaifenesin (Robitussin Dm -) 10 ml PO Q4H PRN PRN Reason: COUGH Last Admin: 05/17/17 10:45 Dose: 10 ml Meropenem (Merrem (Restricted To Id) -) 500 mg in 10 mls @ 120 mls/hr IVPUSH BID [facility] Last Admin: 05/21/17 10:47 Dose: 120 mls/hr Potassium Chloride 10 meq/ (Sodium Chloride) 1,005 mls @ 42 mls/hr IVPB Q24H [facility] Last Admin: 05/20/17 17:48 Dose: 42 mls/hr Lidocaine/Aluminum/Magnesium/Simeth (Magic Mouthwash *Sjr Formula* -) 5 ml MM Q6HPO [facility] Last Admin: 05/21/17 11:05 Dose: 5 ml Metoprolol Succinate (Toprol Xl -) 75 mg PO BID [facility] Last Admin: 05/21/17 10:44 Dose: 75 mg Nystatin (Nystatin Oral Suspension -) 500,000 units PO Q6HPO [facility] Last Admin: 05/21/17 11:20 Dose: 500,000 units Pantoprazole Sodium (Protonix -) 40 mg PO DAILY [facility] Last Admin: 05/21/17 10:44 Dose: 40 mg Vancomycin HCl (Vancomycin Oral Solution) 125 mg PO Q6HPO [facility] Last Admin: 05/21/17 11:06 Dose: 125 mg Warfarin Sodium (Coumadin -) 5 mg PO DAILY@1800 [facility] Last Admin: 05/20/17 17:47 Dose: 5 mg - Objective Vital Signs: Vital Signs Temperature 98 F 05/21/17 10:00 Pulse Rate 109 H 05/21/17 10:57 Respiratory Rate 20 05/21/17 10:00 Blood Pressure 121/60 05/21/17 10:00 O2 Sat by Pulse Oximetry (%) 100 05/21/17 10:57 Constitutional: Yes: Well Nourished, Calm Eyes: Yes: WNL HENT: Yes: WNL Neck: Yes: WNL Cardiovascular: Yes: Pulse Irregular, S1, S2 Respiratory: Yes: Diminished Gastrointestinal: Yes: Normal Bowel Sounds, Soft Extremities: Yes: WNL Edema: Yes Labs: CBC, BMP 05/21/17 08:45 05/21/17 08:45 INR, PTT INR 1.95 (0.82-1.09) H D 05/21/17 08:45 Problem List - Problems (1) Persistent atrial fibrillation Code(s): I48.1 - PERSISTENT ATRIAL FIBRILLATION (2) Sepsis Code(s): A41.9 - SEPSIS, UNSPECIFIED ORGANISM (3) Altered mental status Code(s): R41.82 - ALTERED MENTAL STATUS, UNSPECIFIED (4) Atrial fibrillation with RVR Code(s): I48.91 - UNSPECIFIED ATRIAL FIBRILLATION (5) CKD stage G3b/A3, GFR 30-44 and albumin creatinine ratio >300 mg/g Code(s): N18.3 - CHRONIC KIDNEY DISEASE, STAGE 3 (MODERATE) (6) COPD mixed type Code(s): J44.9 - CHRONIC OBSTRUCTIVE PULMONARY DISEASE, UNSPECIFIED (7) Diastolic CHF Code(s): I50.30 - UNSPECIFIED DIASTOLIC (CONGESTIVE) HEART FAILURE Qualifiers: Congestive heart failure chronicity: acute Qualified Code(s): I50.31 - Acute diastolic (congestive) heart failure Assessment/Plan ASSESSMENT AND PLAN: r/o Pneumonia CHF improving Septic Shock resolved Acute Kidney Injury Toxic Metabolic Encephalopathy Atrial Fibrillation Obesity Anemia (?) OSAS - ABX per ID - rate control - AC - aspiration precautions - Sleep screen after discharge DR GOMEZ
[2017-05-21] MEDS: POTASSIUM CHLORIDE 10 MEQ in SODIUM CHLORIDE 0.45% 1,000 ML IVPB SCH (14:12)
--- NOTE | 2017-05-21 15:14 | PN ---
Progress Note, Physician History of Present Illness: Infectious Disease f/u Pt is alert, feeling better. Denies cough/shortness of breath. No diarrhea or abd discomfort. Started on vancomycin po for C. diff. Denies fever/chills. - Current Medication List Current Medications: Active Medications Acetaminophen (Tylenol Oral Solution -) 650 mg PO Q6H PRN PRN Reason: FEVER OR PAIN Last Admin: 05/17/17 14:22 Dose: 650 mg Amiodarone HCl (Cordarone -) 200 mg PO BID [facility] Last Admin: 05/21/17 10:44 Dose: 200 mg Guaifenesin (Robitussin Dm -) 10 ml PO Q4H PRN PRN Reason: COUGH Last Admin: 05/17/17 10:45 Dose: 10 ml Meropenem (Merrem (Restricted To Id) -) 500 mg in 10 mls @ 120 mls/hr IVPUSH BID [facility] Last Admin: 05/21/17 10:47 Dose: 120 mls/hr Potassium Chloride 10 meq/ (Sodium Chloride) 1,005 mls @ 42 mls/hr IVPB Q24H [facility] Last Admin: 05/21/17 14:12 Dose: 42 mls/hr Lidocaine/Aluminum/Magnesium/Simeth (Magic Mouthwash *Sjr Formula* -) 5 ml MM Q6HPO [facility] Last Admin: 05/21/17 11:05 Dose: 5 ml Metoprolol Succinate (Toprol Xl -) 75 mg PO BID [facility] Last Admin: 05/21/17 10:44 Dose: 75 mg Nystatin (Nystatin Oral Suspension -) 500,000 units PO Q6HPO [facility] Last Admin: 05/21/17 11:20 Dose: 500,000 units Pantoprazole Sodium (Protonix -) 40 mg PO DAILY [facility] Last Admin: 05/21/17 10:44 Dose: 40 mg Vancomycin HCl (Vancomycin Oral Solution) 125 mg PO Q6HPO [facility] Last Admin: 05/21/17 11:06 Dose: 125 mg Warfarin Sodium (Coumadin -) 5 mg PO DAILY@1800 [facility] Last Admin: 05/20/17 17:47 Dose: 5 mg - Objective Vital Signs: Vital Signs Temperature 98.8 F 05/21/17 14:11 Pulse Rate 113 H 05/21/17 14:11 Respiratory Rate 20 05/21/17 14:11 Blood Pressure 115/75 05/21/17 14:11 O2 Sat by Pulse Oximetry (%) 100 05/21/17 10:57 Constitutional: Yes: No Distress, Calm Neck: Yes: Supple Cardiovascular: Yes: Tachycardia Respiratory: Yes: Other (Improved air entry b/l, no rhonchi, minimal faint crackles at bases) Gastrointestinal: Yes: Normal Bowel Sounds, Soft Integumentary: Yes: WNL Neurological: Yes: Alert Labs: CBC, BMP 05/21/17 08:45 05/21/17 08:45 INR, PTT INR 1.95 (0.82-1.09) H D 05/21/17 08:45 Problem List - Problems (1) Healthcare-associated pneumonia Code(s): J18.9 - PNEUMONIA, UNSPECIFIED ORGANISM (2) Altered mental status Code(s): R41.82 - ALTERED MENTAL STATUS, UNSPECIFIED (3) Atrial fibrillation with RVR Code(s): I48.91 - UNSPECIFIED ATRIAL FIBRILLATION (4) COPD mixed type Code(s): J44.9 - CHRONIC OBSTRUCTIVE PULMONARY DISEASE, UNSPECIFIED (5) Leukocytosis Code(s): D72.829 - ELEVATED WHITE BLOOD CELL COUNT, UNSPECIFIED (6) Renal function impairment Code(s): N28.9 - DISORDER OF KIDNEY AND URETER, UNSPECIFIED Assessment/Plan PNA s/p Sepsis COPD exacerbation CHF CKD Afib/RVR C. difficile (non-toxigenic) isolated -- pt clinically appears to be improving, less short of breath/no productive cough, no diarrhea/abd pain, leukocytosis resolving -- d/c IV antibiotics, cont Vancomycin PO x at least 10 days total -- cont monitor vitals
--- NOTE | 2017-05-21 17:22 | PN ---
Progress Note (short form) - Note Progress Note: Renal Follow up for EMANUEL Pt seen and examined at the bedside denies any diarrhea today able to eat her breakfast and lunch today making urine no sob, chest pain, fever, abd pain Vital Signs Temperature 98.8 F 05/21/17 14:11 Pulse Rate 113 H 05/21/17 14:11 Respiratory Rate 20 05/21/17 14:11 Blood Pressure 115/75 05/21/17 14:11 O2 Sat by Pulse Oximetry (%) 100 05/21/17 10:57 Intake & Output 05/18/17 05/19/17 05/20/17 05/21/17 23:59 23:59 23:59 23:59 Intake Total 370 1626 1339 650 Balance 370 1626 1339 650 NAD awake and alert RRR CTA (anterior exam) No LE edema CBC, BMP 05/21/17 08:45 05/21/17 08:45 Current Medications Acetaminophen (Tylenol Oral Solution -) 650 mg PO Q6H PRN PRN Reason: FEVER OR PAIN Last Admin: 05/17/17 14:22 Dose: 650 mg Amiodarone HCl (Cordarone -) 200 mg PO BID [facility] Last Admin: 05/21/17 10:44 Dose: 200 mg Guaifenesin (Robitussin Dm -) 10 ml PO Q4H PRN PRN Reason: COUGH Last Admin: 05/17/17 10:45 Dose: 10 ml Potassium Chloride 10 meq/ (Sodium Chloride) 1,005 mls @ 42 mls/hr IVPB Q24H [facility] Last Admin: 05/21/17 14:12 Dose: 42 mls/hr Lidocaine/Aluminum/Magnesium/Simeth (Magic Mouthwash *Sjr Formula* -) 5 ml MM Q6HPO [facility] Last Admin: 05/21/17 11:05 Dose: 5 ml Metoprolol Succinate (Toprol Xl -) 75 mg PO BID [facility] Last Admin: 05/21/17 10:44 Dose: 75 mg Nystatin (Nystatin Oral Suspension -) 500,000 units PO Q6HPO [facility] Last Admin: 05/21/17 11:20 Dose: 500,000 units Pantoprazole Sodium (Protonix -) 40 mg PO DAILY [facility] Last Admin: 05/21/17 10:44 Dose: 40 mg Vancomycin HCl (Vancomycin Oral Solution) 125 mg PO Q6HPO [facility] Last Admin: 05/21/17 11:06 Dose: 125 mg Warfarin Sodium (Coumadin -) 5 mg PO DAILY@1800 [facility] Last Admin: 05/20/17 17:47 Dose: 5 mg 86 year old woman with PMhx of Afib, Arrythmia s/p Cardioversion, CAD, Hypertension, HLD, COPD, Ischemic Colitis, mild CKD (Cr 1.6-1.8 in the EMR) who presented with SOB and found to have Sepsis secondary to PNA with EMANUEL with Cr of 5. #Acute on Chronic Renal Insufficiency in setting fo Sepsis/PNA with preserved tubular function Renal function improved and stable will d/c IVF today #Hypernatremia in setting of diuretics and poor oral intake oral water intake as tolerated #Sepsis syndrome with PNA s/p ABx #C-diff diarrhea continue PO emeli Diaz DO
[2017-05-21] MEDS: WARFARIN NA 5 MG TABLET (UD) PO SCH (17:47)
--- NOTE | 2017-05-21 20:22 | PN ---
Progress Note (short form) - Note Progress Note: 86 year old AA female with sepsis, remains in atrial flutter hwith rapid ventricular response Chronic UTI, persistent leukocytosis.H/o of C difficle Patient is alert and hemodynamically stable. No chest pain or discomfort, no SOB reported, decrease in heart rate and tolerating increase dose of Beta blockers. Active Medications Acetaminophen (Tylenol Oral Solution -) 650 mg PO Q6H PRN PRN Reason: FEVER OR PAIN Last Admin: 05/17/17 14:22 Dose: 650 mg Amiodarone HCl (Cordarone -) 200 mg PO BID [facility] Last Admin: 05/21/17 10:44 Dose: 200 mg Guaifenesin (Robitussin Dm -) 10 ml PO Q4H PRN PRN Reason: COUGH Last Admin: 05/17/17 10:45 Dose: 10 ml Potassium Chloride 10 meq/ (Sodium Chloride) 1,005 mls @ 42 mls/hr IVPB Q24H [facility] Last Admin: 05/21/17 14:12 Dose: 42 mls/hr Lidocaine/Aluminum/Magnesium/Simeth (Magic Mouthwash *Sjr Formula* -) 5 ml MM Q6HPO [facility] Last Admin: 05/21/17 17:48 Dose: 5 ml Metoprolol Succinate (Toprol Xl -) 75 mg PO BID [facility] Last Admin: 05/21/17 10:44 Dose: 75 mg Nystatin (Nystatin Oral Suspension -) 500,000 units PO Q6HPO [facility] Last Admin: 05/21/17 17:46 Dose: 500,000 units Pantoprazole Sodium (Protonix -) 40 mg PO DAILY [facility] Last Admin: 05/21/17 10:44 Dose: 40 mg Vancomycin HCl (Vancomycin Oral Solution) 125 mg PO Q6HPO [facility] Last Admin: 05/21/17 17:48 Dose: 125 mg Warfarin Sodium (Coumadin -) 5 mg PO DAILY@1800 [facility] Last Admin: 05/21/17 17:47 Dose: 5 mg 86 year old lethargic c/o weakness, pallor 1+, no cyanosis or jaundice. Last Vital Signs Temp Pulse Resp BP Pulse Ox 98.3 F 112 H 20 105/48 100 05/21/17 18:22 05/21/17 18:22 05/21/17 18:22 05/21/17 18:22 05/21/17 10:57 Neck: supple, no JVD, Carotids are equal. HEART: PMI was in the 5th ICS, distant heart sounds, no murmur or gallop appreciated. LUNGS:Clear on auscultation. ABDOMEN:Obese, nontender, no organomegaly or palpable masses felt. EXTREMITIES: No calf tenderness, no dependent edema. CBC, BMP 05/21/17 08:45 05/21/17 08:45 A: 1. Atrial fib/flutter with rapid ventricular response. 2. Diarrhea, C Difficle. 3. COPD. 4. Hypertension. 6. CAD, angina pectoris. 7. CAD, angina pectoris, currently stable 8. Anemia, etiology to be determined. RECOMMENDATION: 1. Increase Toprol to 100mg. BID 2. F/u EKG.
[2017-05-21] MEDS ORDERED: METOPROLOL SUCCINATE 25 MG TAB.SR.24H (FP) PO ONE (23:45)
[2017-05-22] MEDS: MAG HYDROX/ALH/SMC/DPHA/LIDO 240 ML MOUTHWASH MM SCH ×5 (00:07→23:56)
[2017-05-22] MEDS: VANCOMYCIN 250 MG/5 ML ORAL SOLUTION PO SCH ×4 (06:11→23:56)
[2017-05-22] MEDS: NYSTATIN 500,000 UNITS/5 ML SUSPENSION PO SCH ×4 (06:16→23:56)
[2017-05-22 08:35] LABS: INR 2.19 (0.82-1.09); PROTHROMBIN TIME (PATIENT) 24.8 SEC (9.98-11.88)
[2017-05-22 08:37] LABS: ANION GAP 4 (8-16); CALCIUM 8.1 mg/dL (8.5-10.1); CO2 26 mmol/L (21-32); CREATININE 1.5 mg/dL (0.55-1.02); GLUCOSE,RANDOM 92 mg/dL (74-106)
--- NOTE | 2017-05-22 09:49 | PN ---
Progress Note, Physician Chief Complaint: Feels better History of Present Illness: Lab shows K5.6 Patient is on IVF with K Will DC IVF - Current Medication List Current Medications: Active Medications Acetaminophen (Tylenol Oral Solution -) 650 mg PO Q6H PRN PRN Reason: FEVER OR PAIN Last Admin: 05/17/17 14:22 Dose: 650 mg Amiodarone HCl (Cordarone -) 200 mg PO BID [facility] Last Admin: 05/21/17 22:01 Dose: 200 mg Guaifenesin (Robitussin Dm -) 10 ml PO Q4H PRN PRN Reason: COUGH Last Admin: 05/17/17 10:45 Dose: 10 ml Potassium Chloride 10 meq/ (Sodium Chloride) 1,005 mls @ 42 mls/hr IVPB Q24H [facility] Last Admin: 05/21/17 14:12 Dose: 42 mls/hr Lidocaine/Aluminum/Magnesium/Simeth (Magic Mouthwash *Sjr Formula* -) 5 ml MM Q6HPO [facility] Last Admin: 05/22/17 06:11 Dose: 5 ml Metoprolol Succinate (Toprol Xl -) 100 mg PO BID [facility] Nystatin (Nystatin Oral Suspension -) 500,000 units PO Q6HPO [facility] Last Admin: 05/22/17 06:16 Dose: Not Given Pantoprazole Sodium (Protonix -) 40 mg PO DAILY [facility] Last Admin: 05/21/17 10:44 Dose: 40 mg Vancomycin HCl (Vancomycin Oral Solution) 125 mg PO Q6HPO [facility] Last Admin: 05/22/17 06:11 Dose: 125 mg Warfarin Sodium (Coumadin -) 5 mg PO DAILY@1800 [facility] Last Admin: 05/21/17 17:47 Dose: 5 mg - Objective Vital Signs: Vital Signs Temperature 98.2 F 05/22/17 09:00 Pulse Rate 106 H 05/22/17 09:00 Respiratory Rate 20 05/22/17 09:00 Blood Pressure 112/55 05/22/17 09:00 O2 Sat by Pulse Oximetry (%) 98 05/21/17 20:45 Constitutional: Yes: No Distress Eyes: Yes: WNL HENT: Yes: WNL Neck: Yes: WNL Cardiovascular: Yes: Regular Rate and Rhythm Respiratory: Yes: WNL ...Rectal Exam: Yes: Deferred Genitourinary: Yes: WNL Musculoskeletal: Yes: Muscle Weakness Neurological: Yes: Alert Labs: CBC, BMP 05/21/17 08:45 05/22/17 07:50 INR, PTT INR 2.19 (0.82-1.09) H 05/22/17 07:50 Assessment/Plan VC IVF
[2017-05-22] MEDS: METOPROLOL SUCCINATE 100 MG TAB.SR.24H (FP) PO SCH ×2 (10:26→22:08)
[2017-05-22] MEDS: PANTOPRAZOLE 40 MG TABLET (FP) PO SCH (10:27)
[2017-05-22] MEDS: AMIODARONE HCL 200 MG TABLET (FP) PO SCH ×2 (10:27→22:08)
--- NOTE | 2017-05-22 12:26 | PN ---
Progress Note (short form) - Note Progress Note: Renal Follow up for EMANUEL Pt seen and examined at the bedside no acute complaints no sob, chest pain, N/V/D Vital Signs Temperature 98.2 F 05/22/17 09:00 Pulse Rate 106 H 05/22/17 09:00 Respiratory Rate 20 05/22/17 09:00 Blood Pressure 112/55 05/22/17 09:00 O2 Sat by Pulse Oximetry (%) 98 05/21/17 20:45 Intake & Output 05/19/17 05/20/17 05/21/17 05/22/17 23:59 23:59 23:59 23:59 Intake Total 1626 1339 1060 294 Balance 1626 1339 1060 294 NAD awake and alert RRR CTA (anterior exam) No LE edema CBC, BMP 05/21/17 08:45 05/22/17 07:50 Current Medications Acetaminophen (Tylenol Oral Solution -) 650 mg PO Q6H PRN PRN Reason: FEVER OR PAIN Last Admin: 05/17/17 14:22 Dose: 650 mg Amiodarone HCl (Cordarone -) 200 mg PO BID [facility] Last Admin: 05/22/17 10:27 Dose: 200 mg Guaifenesin (Robitussin Dm -) 10 ml PO Q4H PRN PRN Reason: COUGH Last Admin: 05/17/17 10:45 Dose: 10 ml Lidocaine/Aluminum/Magnesium/Simeth (Magic Mouthwash *Sjr Formula* -) 5 ml MM Q6HPO [facility] Last Admin: 05/22/17 06:11 Dose: 5 ml Metoprolol Succinate (Toprol Xl -) 100 mg PO BID [facility] Last Admin: 05/22/17 10:26 Dose: 100 mg Nystatin (Nystatin Oral Suspension -) 500,000 units PO Q6HPO [facility] Last Admin: 05/22/17 06:16 Dose: Not Given Pantoprazole Sodium (Protonix -) 40 mg PO DAILY [facility] Last Admin: 05/22/17 10:27 Dose: 40 mg Vancomycin HCl (Vancomycin Oral Solution) 125 mg PO Q6HPO [facility] Last Admin: 05/22/17 06:11 Dose: 125 mg Warfarin Sodium (Coumadin -) 5 mg PO DAILY@1800 [facility] Last Admin: 05/21/17 17:47 Dose: 5 mg 86 year old woman with PMhx of Afib, Arrythmia s/p Cardioversion, CAD, Hypertension, HLD, COPD, Ischemic Colitis, mild CKD (Cr 1.6-1.8 in the EMR) who presented with SOB and found to have Sepsis secondary to PNA with EMANUEL with Cr of 5. #Acute on Chronic Renal Insufficiency in setting fo Sepsis/PNA with preserved tubular function Renal function remains stable off IVF #Hypernatremia in setting of diuretics and poor oral intake oral water intake as tolerated #Sepsis syndrome with PNA/Cdiff s/p ABx now on oral Vanco Will change diet back to regular consistency diet and monitor intake discussed with PMD and nurse Alex Diaz DO
--- NOTE | 2017-05-22 14:54 | PN ---
Progress Note (short form) - Note Progress Note: PULMONARY Feels better today. Denies shortness of breath, cough or wheezing. Last Vital Signs Temp Pulse Resp BP Pulse Ox 98.2 F 106 H 20 112/55 98 05/22/17 09:00 05/22/17 09:00 05/22/17 09:00 05/22/17 09:00 05/21/17 20:45 Gen: NAD at rest Heart: tachycardic, regular Lung: decreased breth sounds at the bases Abd: soft, nontender Ext: no edema CBC, BMP 05/21/17 08:45 05/22/17 07:50 Active Medications Acetaminophen (Tylenol Oral Solution -) 650 mg PO Q6H PRN PRN Reason: FEVER OR PAIN Last Admin: 05/17/17 14:22 Dose: 650 mg Amiodarone HCl (Cordarone -) 200 mg PO BID [facility] Last Admin: 05/22/17 10:27 Dose: 200 mg Guaifenesin (Robitussin Dm -) 10 ml PO Q4H PRN PRN Reason: COUGH Last Admin: 05/17/17 10:45 Dose: 10 ml Lidocaine/Aluminum/Magnesium/Simeth (Magic Mouthwash *Sjr Formula* -) 5 ml MM Q6HPO [facility] Last Admin: 05/22/17 12:26 Dose: 5 ml Metoprolol Succinate (Toprol Xl -) 100 mg PO BID [facility] Last Admin: 05/22/17 10:26 Dose: 100 mg Nystatin (Nystatin Oral Suspension -) 500,000 units PO Q6HPO [facility] Last Admin: 05/22/17 12:25 Dose: 500,000 units Pantoprazole Sodium (Protonix -) 40 mg PO DAILY [facility] Last Admin: 05/22/17 10:27 Dose: 40 mg Vancomycin HCl (Vancomycin Oral Solution) 125 mg PO Q6HPO [facility] Last Admin: 05/22/17 12:25 Dose: 125 mg Warfarin Sodium (Coumadin -) 5 mg PO ONCE@1800 [facility] Stop: 05/22/17 18:01 A/P r/o Pneumonia CHF Septic Shock resolved Acute Kidney Injury Toxic Metabolic Encephalopathy Atrial Fibrillation Obesity Anemia r/o JYOTI - antibiotics per ID - rate control - continue anticoagulation - aspiration precautions - PSG as outpt
--- NOTE | 2017-05-22 15:37 | PN ---
Progress Note, Physician Chief Complaint: Infectious Disease f/u History of Present Illness: Pt has no cough. Denies shortness of breath. No abd pain. Feels better. - Current Medication List Current Medications: Active Medications Acetaminophen (Tylenol Oral Solution -) 650 mg PO Q6H PRN PRN Reason: FEVER OR PAIN Last Admin: 05/17/17 14:22 Dose: 650 mg Amiodarone HCl (Cordarone -) 200 mg PO BID [facility] BEDS AT [facility] Last Admin: 05/22/17 10:27 Dose: 200 mg Guaifenesin (Robitussin Dm -) 10 ml PO Q4H PRN PRN Reason: COUGH Last Admin: 05/17/17 10:45 Dose: 10 ml Lidocaine/Aluminum/Magnesium/Simeth (Magic Mouthwash *Sjr Formula* -) 5 ml MM Q6HPO [facility] 234 BEDS AT [facility] Last Admin: 05/22/17 12:26 Dose: 5 ml Metoprolol Succinate (Toprol Xl -) 100 mg PO BID [facility] 234 B[facility]S AT [facility] Last Admin: 05/22/17 10:26 Dose: 100 mg Nystatin (Nystatin Oral Suspension -) 500,000 units PO Q6HPO [facility] 234 B[facility]S AT [facility] Last Admin: 05/22/17 12:25 Dose: 500,000 units Pantoprazole Sodium (Protonix -) 40 mg PO DAILY [facility] 234 BEDS AT [facility] Last Admin: 05/22/17 10:27 Dose: 40 mg Vancomycin HCl (Vancomycin Oral Solution) 125 mg PO Q6HPO [facility] 234 B[facility]S AT [facility] Last Admin: 05/22/17 12:25 Dose: 125 mg Warfarin Sodium (Coumadin -) 5 mg PO ONCE@1800 [facility] Stop: 05/22/17 18:01 - Objective Vital Signs: Vital Signs Temperature 98.2 F 05/22/17 09:00 Pulse Rate 106 H 05/22/17 09:00 Respiratory Rate 20 05/22/17 09:00 Blood Pressure 112/55 05/22/17 09:00 O2 Sat by Pulse Oximetry (%) 98 05/21/17 20:45 Constitutional: Yes: No Distress, Calm Neck: Yes: Supple Cardiovascular: Yes: Tachycardia Respiratory: Yes: Other (Rt basilar fine crackles) Gastrointestinal: Yes: Normal Bowel Sounds, Soft Integumentary: Yes: WNL Neurological: Yes: Alert, Oriented Labs: CBC, BMP 05/21/17 08:45 05/22/17 07:50 INR, PTT INR 2.19 (0.82-1.09) H 05/22/17 07:50 Problem List - Problems (1) Healthcare-associated pneumonia Code(s): J18.9 - PNEUMONIA, UNSPECIFIED ORGANISM (2) Altered mental status Code(s): R41.82 - ALTERED MENTAL STATUS, UNSPECIFIED (3) Atrial fibrillation with RVR Code(s): I48.91 - UNSPECIFIED ATRIAL FIBRILLATION (4) COPD mixed type Code(s): J44.9 - CHRONIC OBSTRUCTIVE PULMONARY DISEASE, UNSPECIFIED (5) Leukocytosis Code(s): D72.829 - ELEVATED WHITE BLOOD CELL COUNT, UNSPECIFIED (6) Renal function impairment Code(s): N28.9 - DISORDER OF KIDNEY AND URETER, UNSPECIFIED Assessment/Plan C. diff isolated - toxin negative Pt appears to be clinically improving s/p course of IV antibiotics continue vancomycin po x at least 1 more wk repeat cbc continue monitor
[2017-05-22] MEDS ORDERED: WARFARIN NA 5 MG TABLET (UD) PO ONE (18:00)
--- NOTE | 2017-05-22 19:40 | PN ---
Progress Note (short form) - Note Progress Note: 86 year old AA female with sepsis, remains in atrial flutter hwith rapid ventricular response Chronic UTI, persistent leukocytosis. Decrease in heart rate, 104/min. no sob or chest reported. Still c/o diarrhea. Active Medications Generic Name Dose Route Start Last Admin Trade Name Freq PRN Reason Stop Dose Admin Acetaminophen 650 mg 05/14/17 18:59 05/17/17 14:22 Tylenol Oral Solution - PO 650 mg Q6H PRN Administration FEVER OR PAIN Amiodarone HCl 200 mg 05/18/17 22:00 05/22/17 10:27 Cordarone - PO 200 mg BID MALIK Administration Guaifenesin 10 ml 05/14/17 18:59 05/17/17 10:45 Robitussin Dm - PO 10 ml Q4H PRN Administration COUGH Lidocaine/Aluminum/Magnesium/Simeth 5 ml 05/15/17 00:00 05/22/17 17:05 Magic Mouthwash *Sjr Formula* - MM 5 ml Q6HPO MALIK Administration Metoprolol Succinate 100 mg 05/22/17 10:00 05/22/17 10:26 Toprol Xl - PO 100 mg BID MALIK Administration Nystatin 500,000 units 05/15/17 00:00 05/22/17 17:04 Nystatin Oral Suspension - PO 500,000 units Q6HPO MALIK Administration Pantoprazole Sodium 40 mg 05/15/17 10:00 05/22/17 10:27 Protonix - PO 40 mg DAILY MALIK Administration Vancomycin HCl 125 mg 05/20/17 18:00 05/22/17 17:05 Vancomycin Oral Solution PO 125 mg Q6HPO MALIK Administration 86 year old AA female is alert, pallor 1+, no cyanosis or jaundice. Last Vital Signs Temp Pulse Resp BP Pulse Ox 98.8 F 107 H 20 101/66 98 05/22/17 18:00 05/22/17 18:00 05/22/17 18:00 05/22/17 18:00 05/21/17 20:45 Neck: supple, no JVD, Carotids are equal. HEART: PMI was in the 5th ICS, distant heart sounds, no murmur or gallop appreciated. LUNGS:Clear on auscultation. ABDOMEN:Obese, nontender, no organomegaly or palpable masses felt. EXTREMITIES: No calf tenderness, no dependent juan Abnormal Lab Results 05/22/17 05/22/17 07:50 07:50 PT with INR 24.80 H INR 2.19 H Sodium 146 H Potassium 5.6 H D Chloride 116 H Anion Gap 4 L BUN 28 H Creatinine 1.5 H Calcium 8.1 L A: 1. Atrial fib/flutter with lower heart rate. 2. COPD. 3.CAD, stable angina. 4. Hypertension. 5. Anemia, etiology to be determined. RECOMMENDATION: 1. F/u BMP in am, slight elevation of K+ 2. EKG in am.
[2017-05-23] MEDS: NYSTATIN 500,000 UNITS/5 ML SUSPENSION PO SCH ×4 (05:52→23:15)
[2017-05-23] MEDS: MAG HYDROX/ALH/SMC/DPHA/LIDO 240 ML MOUTHWASH MM SCH ×4 (05:52→23:15)
[2017-05-23] MEDS: VANCOMYCIN 250 MG/5 ML ORAL SOLUTION PO SCH ×4 (05:52→23:15)
--- NOTE | 2017-05-23 09:59 | PN ---
Progress Note, Physician Chief Complaint: Feels better History of Present Illness: Admitted with CHF and new onset afib - Current Medication List Current Medications: Active Medications Acetaminophen (Tylenol Oral Solution -) 650 mg PO Q6H PRN PRN Reason: FEVER OR PAIN Last Admin: 05/17/17 14:22 Dose: 650 mg Amiodarone HCl (Cordarone -) 200 mg PO BID [facility] Last Admin: 05/22/17 22:08 Dose: 200 mg Guaifenesin (Robitussin Dm -) 10 ml PO Q4H PRN PRN Reason: COUGH Last Admin: 05/17/17 10:45 Dose: 10 ml Lidocaine/Aluminum/Magnesium/Simeth (Magic Mouthwash *Sjr Formula* -) 5 ml MM Q6HPO [facility] Last Admin: 05/23/17 05:52 Dose: 5 ml Metoprolol Succinate (Toprol Xl -) 100 mg PO BID [facility] Last Admin: 05/22/17 22:08 Dose: 100 mg Nystatin (Nystatin Oral Suspension -) 500,000 units PO Q6HPO [facility] Last Admin: 05/23/17 05:52 Dose: Not Given Pantoprazole Sodium (Protonix -) 40 mg PO DAILY [facility] Last Admin: 05/22/17 10:27 Dose: 40 mg Vancomycin HCl (Vancomycin Oral Solution) 125 mg PO Q6HPO [facility] Last Admin: 05/23/17 05:52 Dose: 125 mg - Objective Vital Signs: Vital Signs Temperature 98.6 F 05/23/17 07:05 Pulse Rate 105 H 05/23/17 07:05 Respiratory Rate 20 05/23/17 07:05 Blood Pressure 90/54 05/23/17 07:05 O2 Sat by Pulse Oximetry (%) 97 05/22/17 21:00 Constitutional: Yes: Anxious Eyes: Yes: WNL HENT: Yes: WNL Neck: Yes: WNL Cardiovascular: Yes: WNL Respiratory: Yes: On Nasal O2 Gastrointestinal: Yes: Normal Bowel Sounds ...Rectal Exam: Yes: Deferred Genitourinary: Yes: WNL Musculoskeletal: Yes: Muscle Weakness Edema: No Labs: CBC, BMP 05/21/17 08:45 05/22/17 07:50 INR, PTT INR 2.19 (0.82-1.09) H 05/22/17 07:50 Assessment/Plan Patient refused Labs today Will give coumadin
[2017-05-23] MEDS: AMIODARONE HCL 200 MG TABLET (FP) PO SCH ×2 (10:09→22:30)
[2017-05-23] MEDS: WARFARIN NA 5 MG TABLET (UD) PO SCH ×2 (10:10→17:27)
[2017-05-23] MEDS: PANTOPRAZOLE 40 MG TABLET (FP) PO SCH (10:10)
[2017-05-23] MEDS: METOPROLOL SUCCINATE 100 MG TAB.SR.24H (FP) PO SCH ×2 (10:14→22:31)
--- NOTE | 2017-05-23 10:51 | PN ---
Progress Note (short form) - Note Progress Note: 86 year old AA female with sepsis, remains in atrial flutter with rapid ventricular response Chronic UTI, persistent leukocytosis. Patient continues to have diarrhea related to C. diff. Heart rate is between 100 - 110 per minute and appears to be in Atrial flutter. Once the C. diff is resolved she may require D/C cardioversion. Hemodynamically she is stable. Denies dyspnea or chest discomfort. Active Medications Generic Name Dose Route Start Last Admin Trade Name Freq PRN Reason Stop Dose Admin Acetaminophen 650 mg 05/14/17 18:59 05/17/17 14:22 Tylenol Oral Solution - PO 650 mg Q6H PRN Administration FEVER OR PAIN Amiodarone HCl 200 mg 05/18/17 22:00 05/23/17 10:09 Cordarone - PO 200 mg BID MALIK Administration Guaifenesin 10 ml 05/14/17 18:59 05/17/17 10:45 Robitussin Dm - PO 10 ml Q4H PRN Administration COUGH Lidocaine/Aluminum/Magnesium/Simeth 5 ml 05/15/17 00:00 05/23/17 05:52 Magic Mouthwash *Sjr Formula* - MM 5 ml Q6HPO MALIK Administration Metoprolol Succinate 100 mg 05/22/17 10:00 05/23/17 10:14 Toprol Xl - PO Not Given BID MALIK Nystatin 500,000 units 05/15/17 00:00 05/23/17 05:52 Nystatin Oral Suspension - PO Not Given Q6HPO MALIK Pantoprazole Sodium 40 mg 05/15/17 10:00 05/23/17 10:10 Protonix - PO 40 mg DAILY MALIK Administration Vancomycin HCl 125 mg 05/20/17 18:00 05/23/17 05:52 Vancomycin Oral Solution PO 125 mg Q6HPO MALIK Administration Warfarin Sodium 5 mg 05/23/17 10:00 05/23/17 10:10 Coumadin - PO Not Given DAILY@1800 [facility] 86 year old AA female is alert, pallor 1+, no cyanosis or jaundice. Last Vital Signs Temp Pulse Resp BP Pulse Ox 98.6 F 105 H 20 90/54 97 05/23/17 07:05 05/23/17 07:05 05/23/17 10:00 05/23/17 07:05 11/30/17 21:00 Neck: Supple, no JVD, Carotids are equal. HEART: PMI was in the 5th ICS, distant heart sounds, no murmur or gallop appreciated. LUNGS: Clear on auscultation. ABDOMEN: Obese, nontender, no organomegaly or palpable masses felt. EXTREMITIES: No calf tenderness, no dependent juan CBC, BMP 05/21/17 08:45 05/22/17 07:50 A: 1. Atrial flutter with fairly controlled ventricular response. 2. COPD. 3. CAD, stable angina. 4. Hypertension. 5. Anemia, etiology to be determined. 6. C. diff RECOMMENDATION: 1. F/u BMP. 2. ECG. 3. Increase ambulation.
--- NOTE | 2017-05-23 12:42 | PN ---
Progress Note, Physician History of Present Illness: PULMONARY ALERT,FEELING BETTER,-CP,-SOB,+DIARRHEA - Current Medication List Current Medications: Active Medications Acetaminophen (Tylenol Oral Solution -) 650 mg PO Q6H PRN PRN Reason: FEVER OR PAIN Last Admin: 05/17/17 14:22 Dose: 650 mg Amiodarone HCl (Cordarone -) 200 mg PO BID [facility] Last Admin: 05/23/17 10:09 Dose: 200 mg Guaifenesin (Robitussin Dm -) 10 ml PO Q4H PRN PRN Reason: COUGH Last Admin: 05/17/17 10:45 Dose: 10 ml Lidocaine/Aluminum/Magnesium/Simeth (Magic Mouthwash *Sjr Formula* -) 5 ml MM Q6HPO [facility] Last Admin: 05/23/17 12:08 Dose: 5 ml Metoprolol Succinate (Toprol Xl -) 100 mg PO BID [facility] Last Admin: 05/23/17 10:14 Dose: Not Given Nystatin (Nystatin Oral Suspension -) 500,000 units PO Q6HPO [facility] Last Admin: 05/23/17 12:08 Dose: 500,000 units Pantoprazole Sodium (Protonix -) 40 mg PO DAILY [facility] Last Admin: 05/23/17 10:10 Dose: 40 mg Vancomycin HCl (Vancomycin Oral Solution) 125 mg PO Q6HPO [facility] Last Admin: 05/23/17 12:09 Dose: 125 mg Warfarin Sodium (Coumadin -) 5 mg PO DAILY@1800 [facility] Last Admin: 05/23/17 10:10 Dose: Not Given - Objective Vital Signs: Vital Signs Temperature 98.6 F 05/23/17 07:05 Pulse Rate 105 H 05/23/17 07:05 Respiratory Rate 20 05/23/17 10:00 Blood Pressure 90/54 05/23/17 07:05 O2 Sat by Pulse Oximetry (%) 97 05/22/17 21:00 Constitutional: Yes: Calm, Obese Eyes: Yes: WNL HENT: Yes: WNL Neck: Yes: WNL Cardiovascular: Yes: Pulse Irregular, S1, S2 Respiratory: Yes: Diminished Gastrointestinal: Yes: Normal Bowel Sounds, Soft Extremities: Yes: WNL Edema: No Labs: CBC, BMP Problem List - Problems (1) Persistent atrial fibrillation Code(s): I48.1 - PERSISTENT ATRIAL FIBRILLATION (2) Sepsis Code(s): A41.9 - SEPSIS, UNSPECIFIED ORGANISM (3) Altered mental status Code(s): R41.82 - ALTERED MENTAL STATUS, UNSPECIFIED (4) Atrial fibrillation with RVR Code(s): I48.91 - UNSPECIFIED ATRIAL FIBRILLATION (5) CKD stage G3b/A3, GFR 30-44 and albumin creatinine ratio >300 mg/g Code(s): N18.3 - CHRONIC KIDNEY DISEASE, STAGE 3 (MODERATE) (6) COPD mixed type Code(s): J44.9 - CHRONIC OBSTRUCTIVE PULMONARY DISEASE, UNSPECIFIED (7) Diastolic CHF Code(s): I50.30 - UNSPECIFIED DIASTOLIC (CONGESTIVE) HEART FAILURE Qualifiers: Congestive heart failure chronicity: acute Qualified Code(s): I50.31 - Acute diastolic (congestive) heart failure Assessment/Plan ASSESSMENT AND PLAN: r/o Pneumonia CHF improving Septic Shock resolved Acute Kidney Injury Toxic Metabolic Encephalopathy Atrial Fibrillation Obesity Anemia (?) OSAS C-diff - Vanco po - rate control - AC - aspiration precautions - Sleep screen after discharge DR GOMEZ
--- NOTE | 2017-05-23 16:10 | PN ---
Progress Note (short form) - Note Progress Note: Patient seen and examined Having watery stools Some cramps, but no significant abdominal pains Last Vital Signs Temp Pulse Resp BP Pulse Ox 97.8 F 106 H 20 113/74 97 05/23/17 14:32 05/23/17 14:32 05/23/17 14:32 05/23/17 14:32 05/22/17 21:00 No icterus Cor- atrial flutter with rapid VR Abdomen- soft - hyperactive bowel sounds Ext- SCD CBC, BMP 05/21/17 08:45 05/22/17 07:50 Current Medications Generic Name Dose Route Start Last Admin Trade Name Freq PRN Reason Stop Dose Admin Acetaminophen 650 mg 05/14/17 18:59 05/17/17 14:22 Tylenol Oral Solution - PO 650 mg Q6H PRN Administration FEVER OR PAIN Amiodarone HCl 200 mg 05/18/17 22:00 05/23/17 10:09 Cordarone - PO 200 mg BID MALIK Administration Guaifenesin 10 ml 05/14/17 18:59 05/17/17 10:45 Robitussin Dm - PO 10 ml Q4H PRN Administration COUGH Lidocaine/Aluminum/Magnesium/Simeth 5 ml 05/15/17 00:00 05/23/17 12:08 Magic Mouthwash *Sjr Formula* - MM 5 ml Q6HPO MALIK Administration Metoprolol Succinate 100 mg 05/22/17 10:00 05/23/17 10:14 Toprol Xl - PO Not Given BID MALIK Nystatin 500,000 units 05/15/17 00:00 05/23/17 12:08 Nystatin Oral Suspension - PO 500,000 units Q6HPO MALIK Administration Pantoprazole Sodium 40 mg 05/15/17 10:00 05/23/17 10:10 Protonix - PO 40 mg DAILY MALIK Administration Vancomycin HCl 125 mg 05/20/17 18:00 05/23/17 12:09 Vancomycin Oral Solution PO 125 mg Q6HPO MALIK Administration Warfarin Sodium 5 mg 05/23/17 10:00 05/23/17 10:10 Coumadin - PO Not Given DAILY@1800 MALIK Impression: Atrial flutter with rapid VR A/C Anemia Leucocytosis likely secondary to c. diff Diarrhea secondary to c.diff-on oral vancomycin Plan : monitor CBC evaluate anemia
--- NOTE | 2017-05-23 17:22 | PN ---
Progress Note, Physician History of Present Illness: Pt states she feels well. Took a few steps out of bed to chair today. No fever, chills, cough, acute shortness of breath, or abd pain. - Current Medication List Current Medications: Active Medications Acetaminophen (Tylenol Oral Solution -) 650 mg PO Q6H PRN PRN Reason: FEVER OR PAIN Last Admin: 05/17/17 14:22 Dose: 650 mg Amiodarone HCl (Cordarone -) 200 mg PO BID [facility] Last Admin: 05/23/17 10:09 Dose: 200 mg Guaifenesin (Robitussin Dm -) 10 ml PO Q4H PRN PRN Reason: COUGH Last Admin: 05/17/17 10:45 Dose: 10 ml Lidocaine/Aluminum/Magnesium/Simeth (Magic Mouthwash *Sjr Formula* -) 5 ml MM Q6HPO [facility] Last Admin: 05/23/17 12:08 Dose: 5 ml Metoprolol Succinate (Toprol Xl -) 100 mg PO BID [facility] Last Admin: 05/23/17 10:14 Dose: Not Given Nystatin (Nystatin Oral Suspension -) 500,000 units PO Q6HPO [facility] Last Admin: 05/23/17 12:08 Dose: 500,000 units Pantoprazole Sodium (Protonix -) 40 mg PO DAILY [facility] Last Admin: 05/23/17 10:10 Dose: 40 mg Vancomycin HCl (Vancomycin Oral Solution) 125 mg PO Q6HPO [facility] Last Admin: 05/23/17 12:09 Dose: 125 mg Warfarin Sodium (Coumadin -) 5 mg PO DAILY@1800 [facility] Last Admin: 05/23/17 10:10 Dose: Not Given - Objective Vital Signs: Vital Signs Temperature 97.8 F 05/23/17 14:32 Pulse Rate 106 H 05/23/17 14:32 Respiratory Rate 20 05/23/17 14:32 Blood Pressure 113/74 05/23/17 14:32 O2 Sat by Pulse Oximetry (%) 97 05/22/17 21:00 Constitutional: Yes: No Distress, Calm Neck: Yes: Supple Cardiovascular: Yes: Tachycardia Respiratory: Yes: Regular Gastrointestinal: Yes: Normal Bowel Sounds, Soft Genitourinary: Yes: WNL Extremities: Yes: WNL Neurological: Yes: Alert, Oriented Labs: CBC, BMP 05/21/17 08:45 05/22/17 07:50 INR, PTT INR 2.19 (0.82-1.09) H 05/22/17 07:50 Problem List - Problems (1) Healthcare-associated pneumonia Code(s): J18.9 - PNEUMONIA, UNSPECIFIED ORGANISM (2) Altered mental status Code(s): R41.82 - ALTERED MENTAL STATUS, UNSPECIFIED (3) Atrial fibrillation with RVR Code(s): I48.91 - UNSPECIFIED ATRIAL FIBRILLATION (4) COPD mixed type Code(s): J44.9 - CHRONIC OBSTRUCTIVE PULMONARY DISEASE, UNSPECIFIED (5) Leukocytosis Code(s): D72.829 - ELEVATED WHITE BLOOD CELL COUNT, UNSPECIFIED (6) Renal function impairment Code(s): N28.9 - DISORDER OF KIDNEY AND URETER, UNSPECIFIED (7) C. difficile diarrhea Code(s): A04.72 - ENTEROCOLITIS D/T CLOSTRIDIUM DIFFICILE, NOT SPCF RECUR Assessment/Plan Pt clinically stable s/p PNA - off IV antibiotics - on vancomycin po
--- NOTE | 2017-05-23 17:32 | PN ---
Progress Note (short form) - Note Progress Note: Renal Follow up for EMANUEL Pt seen and examined at the bedside awake and alert no acute complaints tolerating oral diet Vital Signs Temperature 97.8 F 05/23/17 14:32 Pulse Rate 106 H 05/23/17 14:32 Respiratory Rate 20 05/23/17 14:32 Blood Pressure 113/74 05/23/17 14:32 O2 Sat by Pulse Oximetry (%) 97 05/22/17 21:00 Intake & Output 05/20/17 05/21/17 05/22/17 05/23/17 23:59 23:59 23:59 23:59 Intake Total 1339 1060 1024 Balance 1339 1060 1024 NAD awake and alert RRR CTA (anterior exam) No LE edema CBC, BMP 05/21/17 08:45 05/22/17 07:50 Current Medications Acetaminophen (Tylenol Oral Solution -) 650 mg PO Q6H PRN PRN Reason: FEVER OR PAIN Last Admin: 05/17/17 14:22 Dose: 650 mg Amiodarone HCl (Cordarone -) 200 mg PO BID [facility] Last Admin: 05/23/17 10:09 Dose: 200 mg Guaifenesin (Robitussin Dm -) 10 ml PO Q4H PRN PRN Reason: COUGH Last Admin: 05/17/17 10:45 Dose: 10 ml Lidocaine/Aluminum/Magnesium/Simeth (Magic Mouthwash *Sjr Formula* -) 5 ml MM Q6HPO [facility] Last Admin: 05/23/17 17:27 Dose: 5 ml Metoprolol Succinate (Toprol Xl -) 100 mg PO BID [facility] Last Admin: 05/23/17 10:14 Dose: Not Given Nystatin (Nystatin Oral Suspension -) 500,000 units PO Q6HPO [facility] Last Admin: 05/23/17 17:27 Dose: 500,000 units Pantoprazole Sodium (Protonix -) 40 mg PO DAILY [facility] Last Admin: 05/23/17 10:10 Dose: 40 mg Vancomycin HCl (Vancomycin Oral Solution) 125 mg PO Q6HPO [facility] Last Admin: 05/23/17 17:28 Dose: 125 mg Warfarin Sodium (Coumadin -) 5 mg PO DAILY@1800 [facility] Last Admin: 05/23/17 17:27 Dose: 5 mg 86 year old woman with PMhx of Afib, Arrythmia s/p Cardioversion, CAD, Hypertension, HLD, COPD, Ischemic Colitis, mild CKD (Cr 1.6-1.8 in the EMR) who presented with SOB and found to have Sepsis secondary to PNA with EMANUEL with Cr of 5. #Acute on Chronic Renal Insufficiency in setting fo Sepsis/PNA with preserved tubular function no new labs today renal function stable as of yesterday repeat BMP in am #Hypernatremia in setting of diuretics and poor oral intake encouraged increased oral water intake #Sepsis syndrome with PNA/Cdiff s/p ABx now on oral Nae Diaz DO
[2017-05-24] MEDS: NYSTATIN 500,000 UNITS/5 ML SUSPENSION PO SCH ×4 (06:47→23:32)
[2017-05-24] MEDS: VANCOMYCIN 250 MG/5 ML ORAL SOLUTION PO SCH ×4 (06:47→23:33)
[2017-05-24] MEDS: MAG HYDROX/ALH/SMC/DPHA/LIDO 240 ML MOUTHWASH MM SCH ×4 (06:47→23:32)
[2017-05-24 08:13] LABS: BASOPHIL 0.9 % (0-2.0); EOSINOPHIL 5.5 % (0-4.5); MCH 32.4 pg (25.7-33.7); MCHC 32.8 g/dl (32.0-36.0); MEAN CELL VOLUME 98.7 fl (80-96); MEAN PLT VOLUME 8.6 fl (7.5-11.1); NEUTROPHILS 56.2 % (42.8-82.8); PLATELET COUNT 278 K/MM3 (134-434); RDW 28.3 % (11.6-15.6); WHITE BLOOD COUNT 9.1 K/mm3 (4.0-10.0)
[2017-05-24 08:23] LABS: ALBUMIN 1.9 g/dl (3.4-5.0); ANION GAP 4 (8-16); CALCIUM 8.5 mg/dL (8.5-10.1); CO2 29 mmol/L (21-32); CREATININE 1.4 mg/dL (0.55-1.02); GLUCOSE,RANDOM 91 mg/dL (74-106); MAGNESIUM 1.9 mg/dL (1.8-2.4); PHOSPHOROUS 4.3 mg/dL (2.5-4.9); SGOT/AST 10 U/L (15-37); SGPT/ALT 20 U/L (12-78)
[2017-05-24 08:25] LABS: ALK PHOS 51 U/L (45-117); BILIRUBIN,TOTAL 0.6 mg/dL (0.2-1.0)
[2017-05-24 08:51] LABS: INR 2.77 (0.82-1.09); PROTHROMBIN TIME (PATIENT) 31.3 SEC (9.98-11.88)
--- NOTE | 2017-05-24 08:55 | PN ---
Progress Note, Physician Chief Complaint: Still c/o diarrhea , tachycardia, no c/o chest pain or SOB History of Present Illness: 86 yrs old f multiple co-morbidities including, HTN, sHF, Afib s/p cardioversion , CKD stage 3, recently discharged to [facility] readmitted with worsening renal function, pneumonia and sepsis, transferred to tele floor after stabilization, C Diff improving - Current Medication List Current Medications: Active Medications Acetaminophen (Tylenol Oral Solution -) 650 mg PO Q6H PRN PRN Reason: FEVER OR PAIN Last Admin: 05/17/17 14:22 Dose: 650 mg Amiodarone HCl (Cordarone -) 200 mg PO BID [facility] Last Admin: 05/23/17 22:30 Dose: 200 mg Guaifenesin (Robitussin Dm -) 10 ml PO Q4H PRN PRN Reason: COUGH Last Admin: 05/17/17 10:45 Dose: 10 ml Lidocaine/Aluminum/Magnesium/Simeth (Magic Mouthwash *Sjr Formula* -) 5 ml MM Q6HPO [facility] Last Admin: 05/24/17 06:47 Dose: 5 ml Metoprolol Succinate (Toprol Xl -) 100 mg PO BID [facility] Last Admin: 05/23/17 22:31 Dose: Not Given Nystatin (Nystatin Oral Suspension -) 500,000 units PO Q6HPO [facility] Last Admin: 05/24/17 06:47 Dose: 500,000 units Pantoprazole Sodium (Protonix -) 40 mg PO DAILY [facility] Last Admin: 05/23/17 10:10 Dose: 40 mg Vancomycin HCl (Vancomycin Oral Solution) 125 mg PO Q6HPO [facility] Last Admin: 05/24/17 06:47 Dose: 125 mg Warfarin Sodium (Coumadin -) 5 mg PO DAILY@1800 [facility] Last Admin: 05/23/17 17:27 Dose: 5 mg - Objective Vital Signs: Vital Signs Temperature 98.7 F 05/24/17 06:00 Pulse Rate 81 05/24/17 06:00 Respiratory Rate 20 05/24/17 06:00 Blood Pressure 132/46 05/24/17 06:00 O2 Sat by Pulse Oximetry (%) 98 05/23/17 21:00 Elderly F looks weak not in distress HEENT: MM Moist, mild anemia, no Icterus NECK: JVD +, no Bruit, Thyroid Central CHEST: Basal crepts and decrese AE CVS: S1S2 Irr tcahtcardia ABD: Obese, mild tenderness, Bs + EXT: Trace edema feet, no calf enderness FIELD PRODUCER: AOx3 non focal Labs: CBC, BMP 05/24/17 07:20 05/24/17 07:20 INR, PTT INR 2.19 (0.82-1.09) H 05/22/17 07:50 INR 2.77 Problem List - Problems (1) Healthcare-associated pneumonia Assessment/Plan: Improved completed abx Code(s): J18.9 - PNEUMONIA, UNSPECIFIED ORGANISM (2) Altered mental status Assessment/Plan: Due to sepsis and Metabolic encephalopathy, improved Code(s): R41.82 - ALTERED MENTAL STATUS, UNSPECIFIED (3) COPD mixed type Assessment/Plan: Cont current Nebs treatment saturating well Code(s): J44.9 - CHRONIC OBSTRUCTIVE PULMONARY DISEASE, UNSPECIFIED (4) CHF (NYHA class II, ACC/AHA stage C) Assessment/Plan: Patient has compensated systolic HF cont current management Code(s): I50.9 - HEART FAILURE, UNSPECIFIED (5) Persistent atrial fibrillation Assessment/Plan: Patient has persistent Afib rate controlled F/U Cardiology recommendations . INR 2.77 decrease coumadin ro 2.5 mg reluctant for blood draw will check INR on Friday Code(s): I48.1 - PERSISTENT ATRIAL FIBRILLATION (6) Renal function impairment Assessment/Plan: Improved F/U Renal recommendations and BMP Code(s): N28.9 - DISORDER OF KIDNEY AND URETER, UNSPECIFIED (7) C. difficile diarrhea Assessment/Plan: Contact Isolation cont POVancomycine 125 mg q 6 hrly. Code(s): A04.72 - ENTEROCOLITIS D/T CLOSTRIDIUM DIFFICILE, NOT SPCF RECUR (8) Hyperkalemia Assessment/Plan: Mild low K dite relectant for blood drawas Kayxelate F/U BMP om Friday Code(s): E87.5 - HYPERKALEMIA
--- NOTE | 2017-05-24 09:20 | EKG ---
Test Reason : Blood Pressure : / mmHG Vent. Rate : 111 BPM Atrial Rate : 111 BPM P-R Int : 000 ms QRS Dur : 098 ms QT Int : 332 ms P-R-T Axes : 078 -25 027 degrees QTc Int : 451 ms SINUS TACHYCARDIA OTHERWISE NORMAL ECG WHEN COMPARED WITH ECG OF 21-MAY-2017 09:38, NO SIGNIFICANT CHANGE WAS FOUND Confirmed by JOSEFINA MARTINEZ MD ([id number]) on 05/24/2017 9:20:33 AM Referred By: SHEIK CONRAD DR Confirmed By:JOSEFINA MARTINEZ MD
--- NOTE | 2017-05-24 09:32 | PN ---
Progress Note (short form) - Note Progress Note: Renal Follow up for EMANUEL Pt seen and examined at the bedside awake no acute complaints no sob, chest pain, abd pain, N/V/D Vital Signs Temperature 98.7 F 05/24/17 06:00 Pulse Rate 81 05/24/17 06:00 Respiratory Rate 20 05/24/17 06:00 Blood Pressure 132/46 05/24/17 06:00 O2 Sat by Pulse Oximetry (%) 98 05/23/17 21:00 Intake & Output 05/21/17 05/22/17 05/23/17 05/24/17 23:59 23:59 23:59 23:59 Intake Total 1060 1024 210 120 Balance 1060 1024 210 120 NAD awake and alert CTA (anterior exam) No LE edema CBC, BMP 05/24/17 07:20 05/24/17 07:20 Current Medications Acetaminophen (Tylenol Oral Solution -) 650 mg PO Q6H PRN PRN Reason: FEVER OR PAIN Last Admin: 05/17/17 14:22 Dose: 650 mg Amiodarone HCl (Cordarone -) 200 mg PO BID [facility] Last Admin: 05/23/17 22:30 Dose: 200 mg Guaifenesin (Robitussin Dm -) 10 ml PO Q4H PRN PRN Reason: COUGH Last Admin: 05/17/17 10:45 Dose: 10 ml Lidocaine/Aluminum/Magnesium/Simeth (Magic Mouthwash *Sjr Formula* -) 5 ml MM Q6HPO [facility] Last Admin: 05/24/17 06:47 Dose: 5 ml Metoprolol Succinate (Toprol Xl -) 100 mg PO BID [facility] Last Admin: 05/23/17 22:31 Dose: Not Given Nystatin (Nystatin Oral Suspension -) 500,000 units PO Q6HPO [facility] Last Admin: 05/24/17 06:47 Dose: 500,000 units Pantoprazole Sodium (Protonix -) 40 mg PO DAILY [facility] Last Admin: 05/23/17 10:10 Dose: 40 mg Vancomycin HCl (Vancomycin Oral Solution) 125 mg PO Q6HPO [facility] Last Admin: 05/24/17 06:47 Dose: 125 mg Warfarin Sodium (Coumadin -) 5 mg PO DAILY@1800 [facility] Last Admin: 05/23/17 17:27 Dose: 5 mg 86 year old woman with PMhx of Afib, Arrythmia s/p Cardioversion, CAD, Hypertension, HLD, COPD, Ischemic Colitis, mild CKD (Cr 1.6-1.8 in the EMR) who presented with SOB and found to have Sepsis secondary to PNA with EMANUEL with Cr of 5. #Acute on Chronic Renal Insufficiency in setting fo Sepsis/PNA with preserved tubular function Renal function remains table off IVF oral intake as tolerated no NSAIDs, IV contrast #Hypernatremia in setting of diuretics and poor oral intake Na now WNL oral water intake as tolerated #Sepsis syndrome with PNA/Cdiff s/p ABx now on oral Vanco #Hyperkalemia now improved off IVF with KCL Alex Diaz DO
[2017-05-24] MEDS ORDERED: SODIUM POLYSTYRENE SULFONATE 15 GM/60 ML BOTTLE PO ONE (09:43)
[2017-05-24] MEDS ORDERED: PT OWN MED DRAWER 7, Y5N ONE ×2 (10:08→11:34)
[2017-05-24] MEDS: PANTOPRAZOLE 40 MG TABLET (FP) PO SCH (10:12)
[2017-05-24] MEDS: METOPROLOL SUCCINATE 100 MG TAB.SR.24H (FP) PO SCH ×2 (10:12→21:13)
[2017-05-24] MEDS: AMIODARONE HCL 200 MG TABLET (FP) PO SCH ×2 (10:12→21:13)
--- NOTE | 2017-05-24 12:38 | PN ---
Progress Note, Physician History of Present Illness: pulmonary alert,-resp distress,+ diarrhea - Current Medication List Current Medications: Active Medications Acetaminophen (Tylenol Oral Solution -) 650 mg PO Q6H PRN PRN Reason: FEVER OR PAIN Last Admin: 05/17/17 14:22 Dose: 650 mg Amiodarone HCl (Cordarone -) 200 mg PO BID [facility] Last Admin: 05/24/17 10:12 Dose: 200 mg Guaifenesin (Robitussin Dm -) 10 ml PO Q4H PRN PRN Reason: COUGH Last Admin: 05/17/17 10:45 Dose: 10 ml Lidocaine/Aluminum/Magnesium/Simeth (Magic Mouthwash *Sjr Formula* -) 5 ml MM Q6HPO [facility] Last Admin: 05/24/17 06:47 Dose: 5 ml Metoprolol Succinate (Toprol Xl -) 100 mg PO BID [facility] Last Admin: 05/24/17 10:12 Dose: 100 mg Nystatin (Nystatin Oral Suspension -) 500,000 units PO Q6HPO [facility] Last Admin: 05/24/17 12:13 Dose: 500,000 units Pantoprazole Sodium (Protonix -) 40 mg PO DAILY [facility] Last Admin: 05/24/17 10:12 Dose: 40 mg Vancomycin HCl (Vancomycin Oral Solution) 125 mg PO Q6HPO [facility] Last Admin: 05/24/17 12:14 Dose: 125 mg Warfarin Sodium (Coumadin -) 3 mg PO DAILY@1800 [facility] - Objective Vital Signs: Vital Signs Temperature 98.6 F 05/24/17 10:00 Pulse Rate 107 H 05/24/17 10:00 Respiratory Rate 20 05/24/17 10:00 Blood Pressure 106/60 05/24/17 10:00 O2 Sat by Pulse Oximetry (%) 98 05/23/17 21:00 Constitutional: Yes: Calm, Obese Eyes: Yes: WNL HENT: Yes: WNL Neck: Yes: WNL Cardiovascular: Yes: Regular Rate and Rhythm, S1, S2 Respiratory: Yes: CTA Bilaterally Gastrointestinal: Yes: Normal Bowel Sounds, Soft Extremities: Yes: WNL Edema: No Labs: CBC, BMP 05/24/17 07:20 05/24/17 07:20 INR, PTT INR 2.77 (0.82-1.09) H 05/24/17 07:20 Problem List - Problems (1) Persistent atrial fibrillation Code(s): I48.1 - PERSISTENT ATRIAL FIBRILLATION (2) Sepsis Code(s): A41.9 - SEPSIS, UNSPECIFIED ORGANISM (3) Altered mental status Code(s): R41.82 - ALTERED MENTAL STATUS, UNSPECIFIED (4) Atrial fibrillation with RVR Code(s): I48.91 - UNSPECIFIED ATRIAL FIBRILLATION (5) CKD stage G3b/A3, GFR 30-44 and albumin creatinine ratio >300 mg/g Code(s): N18.3 - CHRONIC KIDNEY DISEASE, STAGE 3 (MODERATE) (6) COPD mixed type Code(s): J44.9 - CHRONIC OBSTRUCTIVE PULMONARY DISEASE, UNSPECIFIED (7) Diastolic CHF Code(s): I50.30 - UNSPECIFIED DIASTOLIC (CONGESTIVE) HEART FAILURE Qualifiers: Congestive heart failure chronicity: acute Qualified Code(s): I50.31 - Acute diastolic (congestive) heart failure Assessment/Plan ASSESSMENT AND PLAN: CHF improving Septic Shock resolved Acute Kidney Injury Toxic Metabolic Encephalopathy Atrial Fibrillation Obesity Anemia (?) OSAS C-diff - Vanco po - rate control - AC - aspiration precautions - Sleep screen after discharge DR GOMEZ
--- NOTE | 2017-05-24 16:56 | PN ---
Progress Note, Physician History of Present Illness: Pt afebrile. Given kayexalate earlier,BM was loose. No abd pain. Denies shortness of breath or cough at this time. - Current Medication List Current Medications: Active Medications Acetaminophen (Tylenol Oral Solution -) 650 mg PO Q6H PRN PRN Reason: FEVER OR PAIN Last Admin: 05/17/17 14:22 Dose: 650 mg Amiodarone HCl (Cordarone -) 200 mg PO BID [facility] Last Admin: 05/24/17 10:12 Dose: 200 mg Guaifenesin (Robitussin Dm -) 10 ml PO Q4H PRN PRN Reason: COUGH Last Admin: 05/17/17 10:45 Dose: 10 ml Lidocaine/Aluminum/Magnesium/Simeth (Magic Mouthwash *Sjr Formula* -) 5 ml MM Q6HPO [facility] Last Admin: 05/24/17 13:05 Dose: 5 ml Metoprolol Succinate (Toprol Xl -) 100 mg PO BID [facility] Last Admin: 05/24/17 10:12 Dose: 100 mg Nystatin (Nystatin Oral Suspension -) 500,000 units PO Q6HPO [facility] Last Admin: 05/24/17 12:13 Dose: 500,000 units Pantoprazole Sodium (Protonix -) 40 mg PO DAILY [facility] Last Admin: 05/24/17 10:12 Dose: 40 mg Vancomycin HCl (Vancomycin Oral Solution) 125 mg PO Q6HPO [facility] Last Admin: 05/24/17 12:14 Dose: 125 mg Warfarin Sodium (Coumadin -) 3 mg PO DAILY@1800 [facility] - Objective Vital Signs: Vital Signs Temperature 98.6 F 05/24/17 13:50 Pulse Rate 113 H 05/24/17 13:50 Respiratory Rate 20 05/24/17 13:50 Blood Pressure 95/63 05/24/17 13:50 O2 Sat by Pulse Oximetry (%) 98 05/23/17 21:00 Constitutional: Yes: No Distress, Calm Neck: Yes: Supple Cardiovascular: Yes: Tachycardia Respiratory: Yes: Regular Gastrointestinal: Yes: Normal Bowel Sounds, Soft Neurological: Yes: Alert, Oriented Labs: CBC, BMP 05/24/17 07:20 05/24/17 07:20 INR, PTT INR 2.77 (0.82-1.09) H 05/24/17 07:20 Problem List - Problems (1) Healthcare-associated pneumonia Code(s): J18.9 - PNEUMONIA, UNSPECIFIED ORGANISM (2) Altered mental status Code(s): R41.82 - ALTERED MENTAL STATUS, UNSPECIFIED (3) Atrial fibrillation with RVR Code(s): I48.91 - UNSPECIFIED ATRIAL FIBRILLATION (4) COPD mixed type Code(s): J44.9 - CHRONIC OBSTRUCTIVE PULMONARY DISEASE, UNSPECIFIED (5) Leukocytosis Code(s): D72.829 - ELEVATED WHITE BLOOD CELL COUNT, UNSPECIFIED (6) Renal function impairment Code(s): N28.9 - DISORDER OF KIDNEY AND URETER, UNSPECIFIED (7) C. difficile diarrhea Code(s): A04.72 - ENTEROCOLITIS D/T CLOSTRIDIUM DIFFICILE, NOT SPCF RECUR Assessment/Plan Pt s/p treatment for PNA, COPD. C diff ag (+) but toxin negative - cont vancomycin PO currently stable
[2017-05-24] MEDS: WARFARIN NA 3 MG TABLET PO SCH (17:20)
[2017-05-25] MEDS: MAG HYDROX/ALH/SMC/DPHA/LIDO 240 ML MOUTHWASH MM SCH ×3 (06:20→17:21)
[2017-05-25] MEDS: NYSTATIN 500,000 UNITS/5 ML SUSPENSION PO SCH ×3 (06:20→17:19)
[2017-05-25] MEDS: VANCOMYCIN 250 MG/5 ML ORAL SOLUTION PO SCH ×3 (06:20→17:21)
[2017-05-25] MEDS: PANTOPRAZOLE 40 MG TABLET (FP) PO SCH (10:06)
[2017-05-25] MEDS: METOPROLOL SUCCINATE 100 MG TAB.SR.24H (FP) PO SCH ×2 (10:06→22:07)
[2017-05-25] MEDS: AMIODARONE HCL 200 MG TABLET (FP) PO SCH ×2 (10:06→22:07)
--- NOTE | 2017-05-25 11:24 | PN ---
Progress Note, Physician Chief Complaint: Yesterday loose BM after Kayxelate , generalized weakness, no c/.o SOB, Chest pain or abd pain, tolerating PO. History of Present Illness: 86 yrs old f multiple co-morbidities including, HTN, sHF, Afib s/p cardioversion , CKD stage 3, recently discharged to [place] readmitted with worsening renal function, pneumonia and sepsis, transferred to tele floor after stabilization, now of abx , C Diff diarrhea is improving - Current Medication List Current Medications: Active Medications Acetaminophen (Tylenol Oral Solution -) 650 mg PO Q6H PRN PRN Reason: FEVER OR PAIN Last Admin: 05/17/17 14:22 Dose: 650 mg Amiodarone HCl (Cordarone -) 200 mg PO BID [facility] Last Admin: 05/25/17 10:06 Dose: 200 mg Guaifenesin (Robitussin Dm -) 10 ml PO Q4H PRN PRN Reason: COUGH Last Admin: 05/17/17 10:45 Dose: 10 ml Lidocaine/Aluminum/Magnesium/Simeth (Magic Mouthwash *Sjr Formula* -) 5 ml MM Q6HPO [facility] Last Admin: 05/25/17 06:20 Dose: 5 ml Metoprolol Succinate (Toprol Xl -) 100 mg PO BID [facility] Last Admin: 05/25/17 10:06 Dose: 100 mg Nystatin (Nystatin Oral Suspension -) 500,000 units PO Q6HPO [facility] Last Admin: 05/25/17 06:20 Dose: 500,000 units Pantoprazole Sodium (Protonix -) 40 mg PO DAILY [facility] Last Admin: 05/25/17 10:06 Dose: 40 mg Vancomycin HCl (Vancomycin Oral Solution) 125 mg PO Q6HPO [facility] Last Admin: 05/25/17 06:20 Dose: 125 mg Warfarin Sodium (Coumadin -) 3 mg PO DAILY@1800 [facility] Last Admin: 05/24/17 17:20 Dose: 3 mg - Objective Vital Signs: Vital Signs Temperature 98.9 F 05/25/17 06:00 Pulse Rate 90 05/25/17 06:00 Respiratory Rate 20 05/25/17 06:00 Blood Pressure 120/86 05/25/17 06:00 O2 Sat by Pulse Oximetry (%) 99 05/24/17 21:00 Elderly F looks weak not in distress HEENT: MM Moist, mild anemia, no Icterus NECK: JVD +, no Bruit, Thyroid Central CHEST: Basal crepts and decree AE at bases CVS: S1S2 Irr no murmur or rub ABD: Obese, mild tenderness, Bs + EXT: Trace edema feet, no calf enderness 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: 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 non focal Labs: CBC, BMP 05/24/17 07:20 05/24/17 07:20 INR, PTT INR 2.77 (0.82-1.09) H 05/24/17 07:20 Problem List - Problems (1) Altered mental status Assessment/Plan: Due to sepsis and Metabolic encephalopathy, improved Code(s): R41.82 - ALTERED MENTAL STATUS, UNSPECIFIED (2) COPD mixed type Assessment/Plan: Cont current Nebs treatment saturating well Code(s): J44.9 - CHRONIC OBSTRUCTIVE PULMONARY DISEASE, UNSPECIFIED (3) CHF (NYHA class II, ACC/AHA stage C) Assessment/Plan: Patient has compensated systolic HF cont current management Code(s): I50.9 - HEART FAILURE, UNSPECIFIED (4) Persistent atrial fibrillation Assessment/Plan: Patient has persistent Afib rate controlled F/U Cardiology recommendations . INR 2.77 decrease coumadin ro 2.5 mg reluctant for blood draw will check INR on Friday Code(s): I48.1 - PERSISTENT ATRIAL FIBRILLATION (5) Renal function impairment Assessment/Plan: Improved F/U Renal recommendations and BMP Code(s): N28.9 - DISORDER OF KIDNEY AND URETER, UNSPECIFIED (6) C. difficile diarrhea Assessment/Plan: Contact Isolation cont POVancomycine 125 mg q 6 hrly. Code(s): A04.72 - ENTEROCOLITIS D/T CLOSTRIDIUM DIFFICILE, NOT SPCF RECUR (7) Hyperkalemia Assessment/Plan: Mild low K dite relectant for blood draws yesterday recived Kayxelate will F/ U BMP om Friday Code(s): E87.5 - HYPERKALEMIA
--- NOTE | 2017-05-25 12:14 | PN ---
Progress Note (short form) - Note Progress Note: Patient is resting comfortably, no chest pain or discomfort, no SOB. Rhythm remains unchanged, atrial flutter vs atrial tachycardia resistant to medications. Hemodynamically stable. Active Medications Generic Name Dose Route Start Last Admin Trade Name Freq PRN Reason Stop Dose Admin Acetaminophen 650 mg 05/14/17 18:59 05/17/17 14:22 Tylenol Oral Solution - PO 650 mg Q6H PRN Administration FEVER OR PAIN Amiodarone HCl 200 mg 05/18/17 22:00 05/25/17 10:06 Cordarone - PO 200 mg BID [facility] Administration Guaifenesin 10 ml 05/14/17 18:59 05/17/17 10:45 Robitussin Dm - PO 10 ml Q4H PRN Administration COUGH Lidocaine/Aluminum/Magnesium/Simeth 5 ml 05/15/17 00:00 05/25/17 11:51 Magic Mouthwash *Sjr Formula* - MM 5 ml Q6HPO [facility] Administration Metoprolol Succinate 100 mg 05/22/17 10:00 05/25/17 10:06 Toprol Xl - PO 100 mg BID [facility] Administration Nystatin 500,000 units 05/15/17 00:00 05/25/17 11:51 Nystatin Oral Suspension - PO 500,000 units Q6HPO [facility] Administration Pantoprazole Sodium 40 mg 05/15/17 10:00 05/25/17 10:06 Protonix - PO 40 mg DAILY [facility] Administration Vancomycin HCl 125 mg 05/20/17 18:00 05/25/17 11:52 Vancomycin Oral Solution PO 125 mg Q6HPO [facility] Administration Warfarin Sodium 3 mg 05/24/17 09:43 05/24/17 17:20 Coumadin - PO 3 mg DAILY@1800 [facility] Administration 86 year old AA female is alert, pallor 1+, no cyanosis or jaundice. Last Vital Signs Temp Pulse Resp BP Pulse Ox 98.9 F 90 20 120/86 98 05/25/17 06:00 05/25/17 06:00 05/25/17 09:00 05/25/17 06:00 05/25/17 09:00 Neck: Supple, no JVD, Carotids are equal. HEART: PMI was in the 5th ICS, distant heart sounds, no murmur or gallop appreciated. LUNGS: Clear on auscultation. ABDOMEN: Obese, nontender, no organomegaly or palpable masses felt. EXTREMITIES: No calf tenderness, no dependent edema. CBC, BMP 05/24/17 07:20 05/24/17 07:20 Refused to have CBC today. A: 1. Atrial flutter with 2:1 ventricular response. 2. COPD. 3. CAD, stable angina. 4. Hypertension. 5. Anemia, etiology to be determined. 6. ? C. diff. RECOMMENDATION: 1. Most likely require cardioversion. 2. Once diarrhea is resolved to consider cardioverdion. 3. Increase ambulation.
--- NOTE | 2017-05-25 13:00 | PN ---
Progress Note, Physician History of Present Illness: pulmonary alert,nad,+diarrhea,-sob,-cp - Current Medication List Current Medications: Active Medications Acetaminophen (Tylenol Oral Solution -) 650 mg PO Q6H PRN PRN Reason: FEVER OR PAIN Last Admin: 05/17/17 14:22 Dose: 650 mg Amiodarone HCl (Cordarone -) 200 mg PO BID [facility] Last Admin: 05/25/17 10:06 Dose: 200 mg Guaifenesin (Robitussin Dm -) 10 ml PO Q4H PRN PRN Reason: COUGH Last Admin: 05/17/17 10:45 Dose: 10 ml Lidocaine/Aluminum/Magnesium/Simeth (Magic Mouthwash *Sjr Formula* -) 5 ml MM Q6HPO [facility] Last Admin: 05/25/17 11:51 Dose: 5 ml Metoprolol Succinate (Toprol Xl -) 100 mg PO BID [facility] Last Admin: 05/25/17 10:06 Dose: 100 mg Nystatin (Nystatin Oral Suspension -) 500,000 units PO Q6HPO [facility] Last Admin: 05/25/17 11:51 Dose: 500,000 units Pantoprazole Sodium (Protonix -) 40 mg PO DAILY [facility] Last Admin: 05/25/17 10:06 Dose: 40 mg Vancomycin HCl (Vancomycin Oral Solution) 125 mg PO Q6HPO [facility] Last Admin: 05/25/17 11:52 Dose: 125 mg Warfarin Sodium (Coumadin -) 3 mg PO DAILY@1800 [facility] Last Admin: 05/24/17 17:20 Dose: 3 mg - Objective Vital Signs: Vital Signs Temperature 98.9 F 05/25/17 06:00 Pulse Rate 90 05/25/17 06:00 Respiratory Rate 20 05/25/17 09:00 Blood Pressure 120/86 05/25/17 06:00 O2 Sat by Pulse Oximetry (%) 98 05/25/17 09:00 Constitutional: Yes: Calm, Obese Eyes: Yes: WNL HENT: Yes: WNL Neck: Yes: WNL Cardiovascular: Yes: Pulse Irregular, S1, S2 Respiratory: Yes: Diminished Gastrointestinal: Yes: Normal Bowel Sounds, Soft Extremities: Yes: WNL Edema: No Labs: Problem List - Problems (1) Persistent atrial fibrillation Code(s): I48.1 - PERSISTENT ATRIAL FIBRILLATION (2) Sepsis Code(s): A41.9 - SEPSIS, UNSPECIFIED ORGANISM (3) Altered mental status Code(s): R41.82 - ALTERED MENTAL STATUS, UNSPECIFIED (4) Atrial fibrillation with RVR Code(s): I48.91 - UNSPECIFIED ATRIAL FIBRILLATION (5) CKD stage G3b/A3, GFR 30-44 and albumin creatinine ratio >300 mg/g Code(s): N18.3 - CHRONIC KIDNEY DISEASE, STAGE 3 (MODERATE) (6) COPD mixed type Code(s): J44.9 - CHRONIC OBSTRUCTIVE PULMONARY DISEASE, UNSPECIFIED (7) Diastolic CHF Code(s): I50.30 - UNSPECIFIED DIASTOLIC (CONGESTIVE) HEART FAILURE Qualifiers: Congestive heart failure chronicity: acute Qualified Code(s): I50.31 - Acute diastolic (congestive) heart failure Assessment/Plan ASSESSMENT AND PLAN: CHF improving Septic Shock resolved Acute Kidney Injury Toxic Metabolic Encephalopathy Atrial Fibrillation Obesity Anemia (?) OSAS C-diff - Vanco po - rate control - AC - aspiration precautions - Sleep screen after discharge DR GOMEZ
--- NOTE | 2017-05-25 16:46 | PN ---
Progress Note, Physician History of Present Illness: Pt is alert, afebrile. No shortness of breath/cough. No BM today. - Current Medication List Current Medications: Active Medications Acetaminophen (Tylenol Oral Solution -) 650 mg PO Q6H PRN PRN Reason: FEVER OR PAIN Last Admin: 05/17/17 14:22 Dose: 650 mg Amiodarone HCl (Cordarone -) 200 mg PO BID [facility] Last Admin: 05/25/17 10:06 Dose: 200 mg Guaifenesin (Robitussin Dm -) 10 ml PO Q4H PRN PRN Reason: COUGH Last Admin: 05/17/17 10:45 Dose: 10 ml Lidocaine/Aluminum/Magnesium/Simeth (Magic Mouthwash *Sjr Formula* -) 5 ml MM Q6HPO [facility] Last Admin: 05/25/17 11:51 Dose: 5 ml Metoprolol Succinate (Toprol Xl -) 100 mg PO BID [facility] Last Admin: 05/25/17 10:06 Dose: 100 mg Nystatin (Nystatin Oral Suspension -) 500,000 units PO Q6HPO [facility] Last Admin: 05/25/17 11:51 Dose: 500,000 units Pantoprazole Sodium (Protonix -) 40 mg PO DAILY [facility] Last Admin: 05/25/17 10:06 Dose: 40 mg Vancomycin HCl (Vancomycin Oral Solution) 125 mg PO Q6HPO [facility] Last Admin: 05/25/17 11:52 Dose: 125 mg Warfarin Sodium (Coumadin -) 3 mg PO DAILY@1800 [facility] Last Admin: 05/24/17 17:20 Dose: 3 mg - Objective Vital Signs: Vital Signs Temperature 98.2 F 05/25/17 14:00 Pulse Rate 103 H 05/25/17 14:00 Respiratory Rate 20 05/25/17 14:00 Blood Pressure 103/65 05/25/17 14:00 O2 Sat by Pulse Oximetry (%) 98 05/25/17 09:00 Constitutional: Yes: No Distress, Calm Neck: Yes: Supple Cardiovascular: Yes: Pulse Irregular Respiratory: Yes: CTA Bilaterally Gastrointestinal: Yes: Normal Bowel Sounds, Soft Integumentary: Yes: WNL Neurological: Yes: Alert, Oriented Labs: CBC, BMP 05/24/17 07:20 05/24/17 07:20 INR, PTT INR 2.77 (0.82-1.09) H 05/24/17 07:20 Problem List - Problems (1) Healthcare-associated pneumonia Code(s): J18.9 - PNEUMONIA, UNSPECIFIED ORGANISM (2) Altered mental status Code(s): R41.82 - ALTERED MENTAL STATUS, UNSPECIFIED (3) Atrial fibrillation with RVR Code(s): I48.91 - UNSPECIFIED ATRIAL FIBRILLATION (4) COPD mixed type Code(s): J44.9 - CHRONIC OBSTRUCTIVE PULMONARY DISEASE, UNSPECIFIED (5) Leukocytosis Code(s): D72.829 - ELEVATED WHITE BLOOD CELL COUNT, UNSPECIFIED (6) Renal function impairment Code(s): N28.9 - DISORDER OF KIDNEY AND URETER, UNSPECIFIED (7) C. difficile diarrhea Code(s): A04.72 - ENTEROCOLITIS D/T CLOSTRIDIUM DIFFICILE, NOT SPCF RECUR Assessment/Plan COPD s/p treatment for PNA Diarrhea - toxin neg C. diff - cont vancomycin PO x 4 more days, no current diarrhea - continue current management
[2017-05-25] MEDS: WARFARIN NA 3 MG TABLET PO SCH (17:20)
[2017-05-25] MEDS ORDERED: PT OWN MED DRAWER 7, Y5N ONE (22:14)
[2017-05-26] MEDS: MAG HYDROX/ALH/SMC/DPHA/LIDO 240 ML MOUTHWASH MM SCH ×4 (07:02→17:34)
[2017-05-26] MEDS: NYSTATIN 500,000 UNITS/5 ML SUSPENSION PO SCH ×4 (07:02→17:34)
[2017-05-26] MEDS: VANCOMYCIN 250 MG/5 ML ORAL SOLUTION PO SCH ×5 (07:02→17:34)
[2017-05-26 07:35] LABS: ALBUMIN 1.9 g/dl (3.4-5.0); ANION GAP 4 (8-16); BILIRUBIN,TOTAL 0.3 mg/dL (0.2-1.0); CALCIUM 8.2 mg/dL (8.5-10.1); CO2 30 mmol/L (21-32); CREATININE 1.6 mg/dL (0.55-1.02); GLUCOSE,RANDOM 86 mg/dL (74-106); SGOT/AST 15 U/L (15-37); SGPT/ALT 24 U/L (12-78)
[2017-05-26 07:36] LABS: ALK PHOS 45 U/L (45-117); TOT PROT 5.8 g/dl (6.4-8.2)
[2017-05-26 09:30] LABS: INR 3.04 (0.82-1.09); PROTHROMBIN TIME (PATIENT) 34.4 SEC (9.98-11.88)
--- NOTE | 2017-05-26 09:38 | PN ---
Progress Note (short form) - Note Progress Note: Patient is resting comfortably, no chest pain or discomfort, no SOB. Rhythm remains unchanged, atrial flutter vs atrial tachycardia,, no lightheadedness or dizziness. still having intermittent diarrhea on vancomycin. no palpitations, chest pain or discomfort. Active Medications Acetaminophen (Tylenol Oral Solution -) 650 mg PO Q6H PRN PRN Reason: FEVER OR PAIN Last Admin: 05/17/17 14:22 Dose: 650 mg Amiodarone HCl (Cordarone -) 200 mg PO BID [facility] Last Admin: 05/25/17 22:07 Dose: 200 mg Guaifenesin (Robitussin Dm -) 10 ml PO Q4H PRN PRN Reason: COUGH Last Admin: 05/17/17 10:45 Dose: 10 ml Lidocaine/Aluminum/Magnesium/Simeth (Magic Mouthwash *Sjr Formula* -) 5 ml MM Q6HPO [facility] Last Admin: 05/26/17 07:02 Dose: 5 ml Metoprolol Succinate (Toprol Xl -) 100 mg PO BID [facility] Last Admin: 05/25/17 22:07 Dose: 100 mg Nystatin (Nystatin Oral Suspension -) 500,000 units PO Q6HPO [facility] Last Admin: 05/26/17 07:02 Dose: 500,000 units Pantoprazole Sodium (Protonix -) 40 mg PO DAILY [facility] Last Admin: 05/25/17 10:06 Dose: 40 mg Vancomycin HCl (Vancomycin Oral Solution) 125 mg PO Q6HPO [facility] Last Admin: 05/26/17 07:02 Dose: 125 mg Warfarin Sodium (Coumadin -) 3 mg PO DAILY@1800 [facility] Last Admin: 05/25/17 17:20 Dose: 3 mg 86 year old AA female is alert, pallor 1+, no cyanosis or jaundice. Last Vital Signs Temp Pulse Resp BP Pulse Ox 98.6 F 96 H 20 103/59 98 05/26/17 06:00 05/26/17 06:00 05/26/17 06:00 05/26/17 06:00 05/25/17 21:00 Neck: Supple, no JVD, Carotids are equal. HEART: PMI was in the 5th ICS, distant heart sounds, no murmur or gallop appreciated. LUNGS: Clear on auscultation. ABDOMEN: Obese, nontender, no organomegaly or palpable masses felt. EXTREMITIES: No calf tenderness, no dependent edema. Latest CBC, BMP not available. A: 1. Atrial flutter with 2:1 ventricular response, 2. COPD. 3. CAD, stable angina. 4. Hypertension. 5. Anemia, etiology to be determined. 6. ? C. diff. RECOMMENDATION: 1. Most likely require cardioversion, to be done after patient has abated. 2. Increase ambulation.
[2017-05-26] MEDS: METOPROLOL SUCCINATE 100 MG TAB.SR.24H (FP) PO SCH (10:12)
[2017-05-26] MEDS: AMIODARONE HCL 200 MG TABLET (FP) PO SCH (10:12)
[2017-05-26] MEDS: PANTOPRAZOLE 40 MG TABLET (FP) PO SCH (10:12)
[2017-05-26] MEDS ORDERED: PT OWN MED DRAWER 7, Y5N ONE (11:55)
--- NOTE | 2017-05-26 12:24 | PN ---
Progress Note, Physician Chief Complaint: The patient seen in her room. All her complaints are about the diarrhea. "I dont think it is getting better" No pains. Maintains good urine output. History of Present Illness: 86 year old woman with PMhx of Afib, Arrythmia s/p Cardioversion, CAD, Hypertension, HLD, COPD, Ischemic Colitis, mild CKD (Cr 1.6-1.8 in the EMR) who presented with SOB and found to have Sepsis secondary to PNA with EMANUEL with Cr of 5. The renal functions have been improving steadily. The patient is being treated for C. diff colitis - Current Medication List Current Medications: Active Medications Acetaminophen (Tylenol Oral Solution -) 650 mg PO Q6H PRN PRN Reason: FEVER OR PAIN Last Admin: 05/17/17 14:22 Dose: 650 mg Amiodarone HCl (Cordarone -) 200 mg PO BID [facility] Last Admin: 05/26/17 10:12 Dose: 200 mg Guaifenesin (Robitussin Dm -) 10 ml PO Q4H PRN PRN Reason: COUGH Last Admin: 05/17/17 10:45 Dose: 10 ml Lidocaine/Aluminum/Magnesium/Simeth (Magic Mouthwash *Sjr Formula* -) 5 ml MM Q6HPO [facility] Last Admin: 05/26/17 11:59 Dose: 5 ml Metoprolol Succinate (Toprol Xl -) 100 mg PO BID [facility] Last Admin: 05/26/17 10:12 Dose: 100 mg Nystatin (Nystatin Oral Suspension -) 500,000 units PO Q6HPO [facility] Last Admin: 05/26/17 11:59 Dose: 500,000 units Pantoprazole Sodium (Protonix -) 40 mg PO DAILY [facility] Last Admin: 05/26/17 10:12 Dose: 40 mg Vancomycin HCl (Vancomycin Oral Solution) 125 mg PO Q6HPO [facility] Last Admin: 05/26/17 07:02 Dose: 125 mg Warfarin Sodium (Coumadin -) 3 mg PO DAILY@1800 [facility] Last Admin: 05/25/17 17:20 Dose: 3 mg - Objective Vital Signs: Vital Signs Temperature 98.6 F 05/26/17 06:00 Pulse Rate 96 H 05/26/17 06:00 Respiratory Rate 20 05/26/17 06:00 Blood Pressure 103/59 05/26/17 06:00 O2 Sat by Pulse Oximetry (%) 98 05/25/17 21:00 Constitutional: Yes: Well Nourished, No Distress Eyes: Yes: Conjunctiva Clear HENT: Yes: Atraumatic Neck: Yes: Trachea Midline Cardiovascular: Yes: S1, S2 Respiratory: Yes: CTA Bilaterally, Diminished Gastrointestinal: Yes: Soft, Abdomen, Obese Labs: CBC, BMP 05/24/17 07:20 05/26/17 05:40 INR, PTT INR 3.04 (0.82-1.09) H 05/26/17 05:40 Problem List - Problems (1) Atrial fibrillation with RVR Code(s): I48.91 - UNSPECIFIED ATRIAL FIBRILLATION (2) CHF (NYHA class II, ACC/AHA stage C) Code(s): I50.9 - HEART FAILURE, UNSPECIFIED (3) CKD stage G3b/A3, GFR 30-44 and albumin creatinine ratio >300 mg/g Code(s): N18.3 - CHRONIC KIDNEY DISEASE, STAGE 3 (MODERATE) (4) COPD mixed type Code(s): J44.9 - CHRONIC OBSTRUCTIVE PULMONARY DISEASE, UNSPECIFIED (5) Diastolic CHF Code(s): I50.30 - UNSPECIFIED DIASTOLIC (CONGESTIVE) HEART FAILURE Qualifiers: Congestive heart failure chronicity: acute Qualified Code(s): I50.31 - Acute diastolic (congestive) heart failure (6) Hypernatremia Code(s): E87.0 - HYPEROSMOLALITY AND HYPERNATREMIA Assessment/Plan 86 year old woman with PMhx of Afib, Arrhythmia s/p Cardioversion, CAD, Hypertension, HLD, COPD, Ischemic Colitis, mild CKD (Cr 1.6-1.8 in the EMR) who presented with SOB and found to have Sepsis secondary to Pneumonia with EMANUEL The renal functions are slowly improving. Will maintain adequate hydration. If oral hydration is inadequate, will have to resume IV hydration. Will follow with you. Annie Cortes MD
--- NOTE | 2017-05-26 14:37 | PN ---
Progress Note, Physician History of Present Illness: Pt is afebrile, alert. Denies shortness of breath, cough, or chest pain. Denies abd pain but reports diarrhea. As per NA she had one loose BM so far today. No new complaints. - Current Medication List Current Medications: Active Medications Acetaminophen (Tylenol Oral Solution -) 650 mg PO Q6H PRN PRN Reason: FEVER OR PAIN Last Admin: 05/17/17 14:22 Dose: 650 mg Amiodarone HCl (Cordarone -) 200 mg PO BID [facility] Last Admin: 05/26/17 10:12 Dose: 200 mg Guaifenesin (Robitussin Dm -) 10 ml PO Q4H PRN PRN Reason: COUGH Last Admin: 05/17/17 10:45 Dose: 10 ml Lidocaine/Aluminum/Magnesium/Simeth (Magic Mouthwash *Sjr Formula* -) 5 ml MM Q6HPO [facility] Last Admin: 05/26/17 11:59 Dose: 5 ml Metoprolol Succinate (Toprol Xl -) 100 mg PO BID [facility] Last Admin: 05/26/17 10:12 Dose: 100 mg Nystatin (Nystatin Oral Suspension -) 500,000 units PO Q6HPO [facility] Last Admin: 05/26/17 11:59 Dose: 500,000 units Pantoprazole Sodium (Protonix -) 40 mg PO DAILY [facility] Last Admin: 05/26/17 10:12 Dose: 40 mg Vancomycin HCl (Vancomycin Oral Solution) 125 mg PO Q6HPO [facility] Last Admin: 05/26/17 12:00 Dose: 125 mg Warfarin Sodium (Coumadin -) 3 mg PO DAILY@1800 [facility] Last Admin: 05/25/17 17:20 Dose: 3 mg - Objective Vital Signs: Vital Signs Temperature 98.7 F 05/26/17 14:22 Pulse Rate 107 H 05/26/17 14:22 Respiratory Rate 20 05/26/17 14:22 Blood Pressure 100/55 05/26/17 14:22 O2 Sat by Pulse Oximetry (%) 98 05/25/17 21:00 Constitutional: Yes: No Distress, Calm Neck: Yes: Supple Cardiovascular: Yes: Other (+s1/s2) Respiratory: Yes: Regular Gastrointestinal: Yes: Normal Bowel Sounds, Soft Genitourinary: Yes: WNL Extremities: Yes: WNL Neurological: Yes: Alert, Oriented Labs: CBC, BMP 12/02/17 07:20 05/26/17 05:40 INR, PTT INR 3.04 (0.82-1.09) H 05/26/17 05:40 Problem List - Problems (1) Healthcare-associated pneumonia Code(s): J18.9 - PNEUMONIA, UNSPECIFIED ORGANISM (2) Altered mental status Code(s): R41.82 - ALTERED MENTAL STATUS, UNSPECIFIED (3) Atrial fibrillation with RVR Code(s): I48.91 - UNSPECIFIED ATRIAL FIBRILLATION (4) COPD mixed type Code(s): J44.9 - CHRONIC OBSTRUCTIVE PULMONARY DISEASE, UNSPECIFIED (5) Leukocytosis Code(s): D72.829 - ELEVATED WHITE BLOOD CELL COUNT, UNSPECIFIED (6) Renal function impairment Code(s): N28.9 - DISORDER OF KIDNEY AND URETER, UNSPECIFIED (7) C. difficile diarrhea Code(s): A04.72 - ENTEROCOLITIS D/T CLOSTRIDIUM DIFFICILE, NOT SPCF RECUR Assessment/Plan COPD s/p treatment for PNA Diarrhea - toxin neg C. diff - Pt still with complaints of loose BMs, will increase Vancomycin po dose appears clinically stable
[2017-05-26] MEDS: SODIUM POLYSTYRENE SULFONATE 15 GM/60 ML BOTTLE PO ONE ×2 (15:28→17:44)
[2017-05-26] MEDS: WARFARIN NA 3 MG TABLET PO SCH (17:34)
--- NOTE | 2017-05-26 17:52 | PN ---
Progress Note, Physician History of Present Illness: pulmonary alert,oob-chair,-sob,+diarrhea - Current Medication List Current Medications: Active Medications Acetaminophen (Tylenol Oral Solution -) 650 mg PO Q6H PRN PRN Reason: FEVER OR PAIN Last Admin: 05/17/17 14:22 Dose: 650 mg Amiodarone HCl (Cordarone -) 200 mg PO BID [facility] Last Admin: 05/26/17 10:12 Dose: 200 mg Guaifenesin (Robitussin Dm -) 10 ml PO Q4H PRN PRN Reason: COUGH Last Admin: 05/17/17 10:45 Dose: 10 ml Lidocaine/Aluminum/Magnesium/Simeth (Magic Mouthwash *Sjr Formula* -) 5 ml MM Q6HPO [facility] Last Admin: 05/26/17 17:34 Dose: 5 ml Metoprolol Succinate (Toprol Xl -) 100 mg PO BID [facility] Last Admin: 05/26/17 10:12 Dose: 100 mg Nystatin (Nystatin Oral Suspension -) 500,000 units PO Q6HPO [facility] Last Admin: 05/26/17 17:34 Dose: 500,000 units Pantoprazole Sodium (Protonix -) 40 mg PO DAILY [facility] Last Admin: 05/26/17 10:12 Dose: 40 mg Vancomycin HCl (Vancomycin Oral Solution) 250 mg PO Q6HPO [facility] Last Admin: 05/26/17 17:34 Dose: 250 units Warfarin Sodium (Coumadin -) 3 mg PO DAILY@1800 [facility] Last Admin: 05/26/17 17:34 Dose: 3 mg - Objective Vital Signs: Vital Signs Temperature 98.7 F 05/26/17 14:22 Pulse Rate 107 H 05/26/17 14:22 Respiratory Rate 20 05/26/17 14:22 Blood Pressure 100/55 05/26/17 14:22 O2 Sat by Pulse Oximetry (%) 95 05/26/17 10:00 Constitutional: Yes: Calm, Obese Eyes: Yes: WNL HENT: Yes: WNL Neck: Yes: WNL Cardiovascular: Yes: Pulse Irregular, S1, S2 Respiratory: Yes: Diminished Gastrointestinal: Yes: Normal Bowel Sounds, Soft Extremities: Yes: WNL Edema: No Labs: CBC, BMP 05/24/17 07:20 05/26/17 05:40 INR, PTT INR 3.04 (0.82-1.09) H 05/26/17 05:40 Problem List - Problems (1) Persistent atrial fibrillation Code(s): I48.1 - PERSISTENT ATRIAL FIBRILLATION (2) Sepsis Code(s): A41.9 - SEPSIS, UNSPECIFIED ORGANISM (3) Altered mental status Code(s): R41.82 - ALTERED MENTAL STATUS, UNSPECIFIED (4) Atrial fibrillation with RVR Code(s): I48.91 - UNSPECIFIED ATRIAL FIBRILLATION (5) CKD stage G3b/A3, GFR 30-44 and albumin creatinine ratio >300 mg/g Code(s): N18.3 - CHRONIC KIDNEY DISEASE, STAGE 3 (MODERATE) (6) COPD mixed type Code(s): J44.9 - CHRONIC OBSTRUCTIVE PULMONARY DISEASE, UNSPECIFIED (7) Diastolic CHF Code(s): I50.30 - UNSPECIFIED DIASTOLIC (CONGESTIVE) HEART FAILURE Qualifiers: Congestive heart failure chronicity: acute Qualified Code(s): I50.31 - Acute diastolic (congestive) heart failure Assessment/Plan ASSESSMENT AND PLAN: CHF improved Septic Shock resolved Acute Kidney Injury Toxic Metabolic Encephalopathy Atrial Fibrillation Obesity Anemia (?) OSAS C-diff - Vanco po - rate control - AC - aspiration precautions - Sleep screen after discharge DR GOMEZ
[2017-05-27] MEDS: METOPROLOL SUCCINATE 100 MG TAB.SR.24H (FP) PO SCH ×2 (00:29→11:09)
[2017-05-27] MEDS: NYSTATIN 500,000 UNITS/5 ML SUSPENSION PO SCH ×3 (00:29→11:08)
[2017-05-27] MEDS: AMIODARONE HCL 200 MG TABLET (FP) PO SCH ×2 (00:29→11:09)
[2017-05-27] MEDS: VANCOMYCIN 250 MG/5 ML ORAL SOLUTION PO SCH ×3 (00:30→11:09)
[2017-05-27] MEDS: MAG HYDROX/ALH/SMC/DPHA/LIDO 240 ML MOUTHWASH MM SCH ×3 (00:30→11:08)
[2017-05-27 08:19] LABS: ALBUMIN 1.9 g/dl (3.4-5.0); ALK PHOS 52 U/L (45-117); ANION GAP 6 (8-16); BILIRUBIN,TOTAL 0.4 mg/dL (0.2-1.0); CALCIUM 7.7 mg/dL (8.5-10.1); CO2 26 mmol/L (21-32); CREATININE 1.8 mg/dL (0.55-1.02); GLUCOSE,RANDOM 87 mg/dL (74-106); SGOT/AST 15 U/L (15-37); SGPT/ALT 25 U/L (12-78)
[2017-05-27 08:27] LABS: INR 2.55 (0.82-1.09); PROTHROMBIN TIME (PATIENT) 28.8 SEC (9.98-11.88)
--- NOTE | 2017-05-27 09:35 | DS ---
Physical Examination Vital Signs: Vital Signs Temperature 97.8 F 05/27/17 06:00 Pulse Rate 103 H 05/27/17 06:00 Respiratory Rate 20 05/27/17 06:00 Blood Pressure 106/61 05/27/17 06:00 O2 Sat by Pulse Oximetry (%) 95 05/26/17 21:00 Findings/Remarks: Admitted with CHF ,new on set Afib ,and pneumonia Developed Cdif diarrhea Constitutional: Yes: No Distress Eyes: Yes: WNL HENT: Yes: WNL Neck: Yes: WNL Cardiovascular: Yes: Pulse Irregular Respiratory: Yes: WNL Gastrointestinal: Yes: Normal Bowel Sounds ...Rectal Exam: Yes: Deferred Musculoskeletal: Yes: Muscle Weakness Edema: No Integumentary: Yes: WNL Neurological: Yes: Alert ...Motor Strength: WNL Psychiatric: Yes: Alert Labs: CBC, BMP 05/24/17 07:20 05/27/17 06:30 Discharge Summary Reason For Visit: HEALTHCARE-ASSOCIATED PNEUMONIA Current Active Problems C. difficile diarrhea (Acute) Healthcare-associated pneumonia (Acute) Hyperkalemia (Acute) Hypernatremia (Acute) Persistent atrial fibrillation (Acute) Sepsis (Acute) Condition: Improved - Instructions Referrals: Ira Cho MD [Primary Care Provider] - Disposition: LONG TERM FACILITY - Home Medications Comprehensive Discharge Medication List: Ambulatory Orders Ascorbic Acid [Vitamin C with Barbara Hips] 500 mg PO DAILY 01/18/17 Aspirin [ASA -] 81 mg PO DAILY 01/18/17 Cholecalciferol (Vitamin D3) [Vitamin D3] 5,000 unit PO DAILY 01/18/17 Diltiazem HCl [Cartia Xt] 240 mg PO DAILY 01/18/17 Isosorbide Mononitrate [Isosorbide Mononitrate ER] 30 mg PO DAILY 01/18/17 Losartan Potassium 50 mg PO DAILY 01/18/17 Ranitidine [Zantac -] 150 mg PO DAILY 01/18/17 Albuterol 0.083% Nebulizer Madhavi [Ventolin 0.083% Nebulizer Soln -] 1 neb NEB Q6H 04/21/17 Albuterol Sulfate [Proair Respiclick] 90 mcg IH DAILY 04/21/17 Promethazine HCl [Phenergan Plain 6.25 MG/5 ML -] 10 ml PO TID 04/21/17 Nitrofurantoin Macrocrystal [Nitrofurantoin] 100 mg PO BID 04/22/17 Oxycodone HCl [Roxicodone -] 5 mg PO Q6H PRN 04/22/17 Amiodarone HCl [Cordarone -] 200 mg PO BID tablet 05/05/17 Ascorbic Acid [Vitamin C -] 500 mg PO DAILY tablet 05/05/17 Aspirin [ASA -] 81 mg PO DAILY tab.chew 05/05/17 Cholecalciferol (Vitamin D3) [Vitamin D3 -] 5,000 unit PO DAILY tab 05/05/17 Guaifenesin [Robitussin -] 10 ml PO Q6H PRN cup 05/05/17 Isosorbide Mononitrate [Imdur -] 30 mg PO DAILY tab.sr.24h 05/05/17 Losartan Potassium [Cozaar -] 50 mg PO DAILY tablet 05/05/17 Metoprolol Succinate [Toprol XL -] 50 mg PO BID tab.sr.24h 05/05/17 Oxycodone HCl [Roxicodone -] 5 mg PO Q6H PRN tablet MDD 20 05/05/17 Ranitidine [Zantac -] 150 mg PO DAILY tablet 05/05/17 Salmeterol/Fluticasone [Advair 100Mcg/50Mcg -] 1 puff IH BID inhaler 05/05/17
[2017-05-27 11:06] VITALS: BP 115/60; PULSE 95; TEMP 98
[2017-05-27] MEDS: PANTOPRAZOLE 40 MG TABLET (FP) PO SCH (11:08)
--- NOTE | 2017-05-27 15:14 | PN ---
Progress Note (short form) - Note Progress Note: Renal Follow up for EMANUEL Pt seen and examined at the bedside continues to have diarrhea 3x daily no sob, chest pain, abd pain still reports not great oral intake for discharge today Vital Signs Temperature 98 F 05/27/17 10:00 Pulse Rate 95 H 05/27/17 10:00 Respiratory Rate 20 05/27/17 10:00 Blood Pressure 115/60 05/27/17 10:00 O2 Sat by Pulse Oximetry (%) 95 05/26/17 21:00 Intake & Output 05/24/17 05/25/17 05/26/17 05/27/17 23:59 23:59 23:59 23:59 Intake Total 220 340 580 570 Balance 220 340 580 570 NAD awake and alert CTA (anterior exam) No LE edema CBC, BMP 05/24/17 07:20 05/27/17 06:30 86 year old woman with PMhx of Afib, Arrythmia s/p Cardioversion, CAD, Hypertension, HLD, COPD, Ischemic Colitis, mild CKD (Cr 1.6-1.8 in the EMR) who presented with SOB and found to have Sepsis secondary to PNA with EMANUEL with Cr of 5. #Acute on Chronic Renal Insufficiency in setting fo Sepsis/PNA with preserved tubular function Cr slightly uptrending in setting of diarrhea and poor oral intake encouraged pt to increase PO fluid and solute intake trend BUN/Cr as outpatient #Hypernatremia in setting of diuretics and poor oral intake Na now WNL oral water intake as tolerated #Sepsis syndrome with PNA/Cdiff s/p ABx now on oral Nae Diaz DO
[2017-05-28 00:07] LABS: Hgb A2 2.2 % (0.7-3.1)
== END 2017-05-27 12:21 | DRG 871 ==
LOC: JER 20:46 → JERBED 23:38 → JICU 05-09 03:31 → J5S 05-14 19:56 → J4S 05-18 17:33
PROVIDERS: ADMIT Internal Medicine; ATTEND Internal Medicine
PROC: 05HM33Z Insertion of Infusion Device into Right Internal Jugular Vein, Percutaneous Approach (ICD-10-PCS; principal; 2017-05-09)
PROC: 30233N1 Transfusion of Nonautologous Red Blood Cells into Peripheral Vein, Percutaneous Approach (ICD-10-PCS; 2017-05-13)
DX: A41.9 Sepsis, unspecified organism (principal); J18.9 Pneumonia, unspecified organism; R65.21 Severe sepsis with septic shock; G92 Toxic encephalopathy; N17.9 Acute kidney failure, unspecified; I48.1 Persistent atrial fibrillation; E87.2 Acidosis; E87.0 Hyperosmolality and hypernatremia; A04.72 Enterocolitis due to Clostridium difficile, not specified as recurrent; I13.0 Hypertensive heart and chronic kidney disease with heart failure and stage 1 through stage 4 chronic kidney disease, or unspecified chronic kidney disease; I48.92 Unspecified atrial flutter; D68.9 Coagulation defect, unspecified; I50.30 Unspecified diastolic (congestive) heart failure; D64.9 Anemia, unspecified; N18.3 Chronic kidney disease, stage 3 (moderate); E87.5 Hyperkalemia; J44.9 Chronic obstructive pulmonary disease, unspecified; E66.9 Obesity, unspecified; Z68.35 Body mass index [BMI] 35.0-35.9, adult; E78.5 Hyperlipidemia, unspecified; I25.119 Atherosclerotic heart disease of native coronary artery with unspecified angina pectoris; D72.829 Elevated white blood cell count, unspecified; E83.42 Hypomagnesemia; E83.41 Hypermagnesemia; E86.0 Dehydration
CPT/HCPCS: 36415; 36430; 70450-TC; 71010-TC; 76700-TC; 76775-TC; 76856-TC; 80048; 80053; 80299; 81003; 82272; 82436; 82550; 82570; 82607; 82728; 82747; 82803; 83010; 83021; 83540; 83550; 83605; 83615; 83735; 83880; 84100; 84133; 84300; 84439; 84443; 84481; 84484; 85014; 85025; 85027; 85044; 85610; 85660; 85730; 86850; 86870; 86900; 86901; 86922; 87040; 87086; 87205; 87324; 87449; 88300-TC; 93005; 93010; 97116-GP; 97161-GP; 99281-25; G0480; J1644; P9038; P9058

== ENCOUNTER 2017-05-28 22:22 | Inpatient (IN) | payer OTHER, MEDICARE ==
--- NOTE | 2017-05-29 00:27 | PDOC ---
History of Present Illness - General History Source: Patient, Care Provider, Family Exam Limitations: No Limitations - History of Present Illness Initial Comments: 05/29/17 00:54 The patient is an 86 year old female discharged yesterday after a 3 week admission for pneumonia, with past medical history of CHF, COPD, and CAD who presents to the emergency department with shortness of breath. The patient states that shortly after her discharge she became constantly short of breath. The patient presents from longterm. <Justin Patino - Last Filed: 05/29/17 01:05> - General History Source: Patient, Care Provider Exam Limitations: No Limitations <Rosangela Uriarte - Last Filed: 05/29/17 01:18> - General Chief Complaint: Blood Pressure Problem Stated Complaint: Blood Pressure Problem Past History <Justin Patino - Last Filed: 05/29/17 01:05> - Past Medical History Asthma: Yes Cardiac Disorders: Yes (ASHD, cardiac arrythmia) COPD: Yes CHF: Yes Diabetes: Yes HTN: Yes Hypercholesterolemia: Yes - Surgical History Abdominal Surgery: Yes (hiatal hernia repair) Orthopedic Surgery: Yes (erendira hip) - Immunization History Immunization Up to Date: Yes - Suicide/Smoking/Psychosocial Hx Smoking Status: No Smoking History: Never smoked Have you smoked in the past 12 months: No Number of Cigarettes Smoked Daily: 0 If you are a former smoker, when did you quit?: many years Information on smoking cessation initiated: No Hx Alcohol Use: No Drug/Substance Use Hx: No Substance Use Type: None Hx Substance Use Treatment: No <Rosangela Uriarte - Last Filed: 05/29/17 01:18> - Past Medical History Allergies/Adverse Reactions: Allergies Allergy/AdvReac Type Severity Reaction Status Date / Time Penicillins Allergy Verified 05/28/17 22:39 procaine Allergy Verified 05/28/17 22:39 Home Medications: Ambulatory Orders Ascorbic Acid [Vitamin C with Barbara Hips] 500 mg PO DAILY 01/18/17 Aspirin [ASA -] 81 mg PO DAILY 01/18/17 Cholecalciferol (Vitamin D3) [Vitamin D3] 5,000 unit PO DAILY 01/18/17 Diltiazem HCl [Cartia Xt] 240 mg PO DAILY 01/18/17 Isosorbide Mononitrate [Isosorbide Mononitrate ER] 30 mg PO DAILY 01/18/17 Losartan Potassium 50 mg PO DAILY 01/18/17 Ranitidine [Zantac -] 150 mg PO DAILY 01/18/17 Albuterol 0.083% Nebulizer Madhavi [Ventolin 0.083% Nebulizer Soln -] 1 neb NEB Q6H 04/21/17 Albuterol Sulfate [Proair Respiclick] 90 mcg IH DAILY 04/21/17 Promethazine HCl [Phenergan Plain 6.25 MG/5 ML -] 10 ml PO TID 04/21/17 Nitrofurantoin Macrocrystal [Nitrofurantoin] 100 mg PO BID 04/22/17 Oxycodone HCl [Roxicodone -] 5 mg PO Q6H PRN 04/22/17 Amiodarone HCl [Cordarone -] 200 mg PO BID tablet 05/05/17 Ascorbic Acid [Vitamin C -] 500 mg PO DAILY tablet 05/05/17 Aspirin [ASA -] 81 mg PO DAILY tab.chew 05/05/17 Cholecalciferol (Vitamin D3) [Vitamin D3 -] 5,000 unit PO DAILY tab 05/05/17 Guaifenesin [Robitussin -] 10 ml PO Q6H PRN cup 05/05/17 Isosorbide Mononitrate [Imdur -] 30 mg PO DAILY tab.sr.24h 05/05/17 Losartan Potassium [Cozaar -] 50 mg PO DAILY tablet 05/05/17 Metoprolol Succinate [Toprol XL -] 50 mg PO BID tab.sr.24h 05/05/17 Oxycodone HCl [Roxicodone -] 5 mg PO Q6H PRN tablet MDD 20 05/05/17 Ranitidine [Zantac -] 150 mg PO DAILY tablet 05/05/17 Salmeterol/Fluticasone [Advair 100Mcg/50Mcg -] 1 puff IH BID inhaler 05/05/17 Amiodarone HCl [Cordarone -] 200 mg PO BID tablet 05/27/17 Guaifenesin Dm [Robitussin Dm -] 10 ml PO Q4H PRN cup 05/27/17 Metoprolol Succinate [Toprol XL -] 100 mg PO BID tab.sr.24h 05/27/17 Pantoprazole Sodium [Protonix -] 40 mg PO DAILY tablet.ec 05/27/17 Vancomycin Oral Solution 125 mg PO Q6HPO ml 05/27/17 Warfarin Na [Coumadin -] 3 mg PO DAILY@1800 tablet 05/27/17 Review of Systems - Review of Systems Able to Perform ROS?: Yes Comments:: 05/29/17 00:54 GENERAL/CONSTITUTIONAL: No fever or chills. No weakness. HEAD, EYES, EARS, NOSE AND THROAT: No change in vision. No ear pain or discharge. No sore throat. GASTROINTESTINAL: No nausea, vomiting, diarrhea or constipation. GENITOURINARY: No dysuria, frequency, or change in urination. CARDIOVASCULAR: No chest pain RESPIRATORY: (+) Shortness of breath. No cough, wheezing, or hemoptysis. MUSCULOSKELETAL: No joint or muscle swelling or pain. No neck or back pain. SKIN: No rash NEUROLOGIC: No headache, vertigo, loss of consciousness, or change in strength/ sensation. ENDOCRINE: No increased thirst. No abnormal weight change. HEMATOLOGIC/LYMPHATIC: No anemia, easy bleeding, or history of blood clots. ALLERGIC/IMMUNOLOGIC: No hives or skin allergy. <Justin Patino - Last Filed: 05/29/17 01:05> *Physical Exam - Vital Signs Last Vital Signs Temp Pulse Resp BP Pulse Ox 98.6 F 89 18 100/40 95 05/28/17 22:39 05/28/17 22:39 05/28/17 22:39 05/28/17 22:39 05/28/17 22:39 - Physical Exam Comments: 05/29/17 00:54 GENERAL: Awake, alert, and fully oriented, in no acute distress HEAD: No signs of trauma EYES: PERRLA, EOMI, sclera anicteric, conjunctiva clear ENT: Auricles normal inspection, nares patent, Moist mucosa NECK: Normal ROM, supple, no lymphadenopathy, JVD, or masses LUNGS:Junky lung bases bilaterally HEART: Regular rate and rhythm, normal S1 and S2, no murmurs, rubs or gallops ABDOMEN: (+)Obese, Soft, nontender, normoactive bowel sounds. No guarding, no rebound. No masses EXTREMITIES: Normal range of motion, no edema. No clubbing or cyanosis. No cords, erythema, or tenderness NEUROLOGICAL: Normal speech SKIN: Warm, Dry, normal turgor, no rashes or lesions noted. 05/29/17 01:05 <Justin Patino - Last Filed: 05/29/17 01:05> - Vital Signs Last Vital Signs Temp Pulse Resp BP Pulse Ox 98.6 F 89 18 100/40 95 05/28/17 22:39 05/28/17 22:39 05/28/17 22:39 05/28/17 22:39 05/28/17 22:39 <Rosangela Uriarte - Last Filed: 05/29/17 01:18> ED Treatment Course - LABORATORY CBC & Chemistry Diagram: 05/29/17 00:31 05/29/17 00:31 <Justin Patino - Last Filed: 05/29/17 01:05> - LABORATORY CBC & Chemistry Diagram: 05/29/17 00:31 05/29/17 00:31 - RADIOLOGY Radiology Studies Ordered: Category Date Time Status CXRPORT [CHEST X-RAY PORTABLE*] [RAD] Stat Radiology 05/28/17 23:43 Taken <Rosangela Uriarte - Last Filed: 05/29/17 01:18> Medical Decision Making - Medical Decision Making 05/29/17 00:25 86-year-old female with a history of CHF, COPD hypertension recently admitted for CHF and pneumonia subsequently developed C. difficile just discharged from the hospital yesterday to a [facility] here today for persistent fevers and difficulty breathing. Patient had a fever of 101 today [facility] she has been receiving vancomycin by mouth for C. difficile infection no nausea no vomiting per daughter who is at the bedside patient has not had any loose stool today but has had a cough On exam she is awake alert does have increased work of breathing when lying flat crackles at bilateral bases no audible wheezing cardiac exam is a regular without murmurs rubs or gallops abdomen is soft and nontender obese extremities are warm well perfused Differential persistent C. difficile infection, persistent pneumonia, bacteremia plan to admit for septic workup IV hydration will continue oral vancomycin for history of C. difficile will discuss with Dr. Amador patient will likely require infectious disease consult on admission <Rosangela Uriarte - Last Filed: 05/29/17 01:18> *DC/Admit/Observation/Transfer - Attestations Scribe Attestion: 05/29/17 00:55 Documentation prepared by Justin Patino, acting as certified ophthalmic medical technician for Rosangela Uriarte MD. <Justin Patino - Last Filed: 05/29/17 01:05> - Discharge Dispostion Admit: Yes <Rosangela Uriarte - Last Filed: 05/29/17 01:18> Diagnosis at time of Disposition: Sepsis, C. difficile colitis - Referrals Referrals: Ira Cho MD [Primary Care Provider] - - Patient Instructions - Post Discharge Activity
[2017-05-29 00:52] LABS: MCH 31.2 pg (25.7-33.7); MCHC 31.6 g/dl (32.0-36.0); MEAN CELL VOLUME 98.8 fl (80-96); MEAN PLT VOLUME 9.2 fl (7.5-11.1); PLATELET COUNT 276 K/MM3 (134-434); WHITE BLOOD COUNT 21.9 K/mm3 (4.0-10.0)
[2017-05-29 01:03] LABS: ALBUMIN 2.1 g/dl (3.4-5.0); ANION GAP 11 (8-16); BILIRUBIN,TOTAL 0.4 mg/dL (0.2-1.0); CALCIUM 8.5 mg/dL (8.5-10.1); CO2 22 mmol/L (21-32); CREATININE 3.6 mg/dL (0.55-1.02); GLUCOSE,RANDOM 106 mg/dL (74-106); SGPT/ALT 44 U/L (12-78); TOT PROT 6.7 g/dl (6.4-8.2)
[2017-05-29 01:04] LABS: ALK PHOS 56 U/L (45-117)
[2017-05-29] MEDS ORDERED: SODIUM CHLORIDE 0.9% 1000 ML INFUS.BAG IV ONE ×2 (01:04→01:27)
[2017-05-29] MEDS ORDERED: VANCOMYCIN 250 MG/5 ML ORAL SOLUTION PO ONE (01:07)
[2017-05-29] MEDS ORDERED: METRONIDAZOLE 500 MG PREMIXED 500 MG/100 ML MG IVPB ONE ×2 (01:08→03:16)
[2017-05-29 01:09] LABS: SGOT/AST 51 U/L (15-37)
[2017-05-29 01:17] LABS: TROPONIN I 0.06 ng/ml (0.00-0.05)
[2017-05-29 02:09] LABS: URINE APPEARANCE SLCLOUDY; URINE BILIRUBIN NEGATIVE (NEGATIVE); URINE BLOOD NEGATIVE (NEGATIVE); URINE COLOR AMBER; URINE GLUCOSE (UA) NEGATIVE (NEGATIVE); URINE KETONE NEGATIVE (NEGATIVE); URINE NITRITE NEGATIVE (NEGATIVE); URINE PROTEIN NEGATIVE (NEGATIVE); URINE UROBILINOGEN NEGATIVE mg/dL (0.2-1.0)
[2017-05-29 02:38] LABS: URINE LEUK ESTERASE 2+ (NEGATIVE)
[2017-05-29 02:48] LABS: URINE BACTERIA MODERATE /hpf (NONE SEEN); URINE RBC 1 /hpf (0-3); URINE WBC 8 /hpf (3-5)
[2017-05-29 02:49] LABS: YEAST FEW
[2017-05-29 03:56] LABS: ANISOCYTOSIS 3+; HYPOCHROMIA 1+; POIKILOCYTOSIS 1+; POLYCHROMASIA 1+; SMUDGE CELLS FEW
[2017-05-29] MEDS ORDERED: DOPAMINE 400 MG/D5W - 400,000 MCG/250 ML INFUS.BAG IVPB ONE (04:47)
[2017-05-29] MEDS: DOPAMINE 400 MG/D5W - 400,000 MCG/250 ML INFUS.BAG IVPB SCH (05:07)
--- NOTE | 2017-05-29 11:34 | EKG ---
Test Reason : Blood Pressure : / mmHG Vent. Rate : 093 BPM Atrial Rate : 093 BPM P-R Int : 000 ms QRS Dur : 104 ms QT Int : 402 ms P-R-T Axes : 096 -38 -03 degrees QTc Int : 499 ms SINUS RHYTHM WITH 1ST DEGREE A-V BLOCK LEFT AXIS DEVIATION POSSIBLE ANTERIOR INFARCT , AGE UNDETERMINED ABNORMAL ECG WHEN COMPARED WITH ECG OF 23-MAY-2017 11:17, NO SIGNIFICANT CHANGE WAS FOUND Confirmed by TOÑA KRAFT, JACINDA ([id number]) on 05/29/2017 11:33:47 AM Referred By: Confirmed By:JACINDA DING MD
[2017-05-29] MEDS ORDERED: PNEUMOC 13-VAL CONJ-DIP CRM/PF 0.5 ML DISP.SYRIN IM ONE (11:42)
[2017-05-29 12:23] LABS: URINE LEUK ESTERASE 1+ (NEGATIVE)
--- NOTE | 2017-05-29 15:02 | PN ---
Teaching Attending Note ATTENDING PHYSICIAN STATEMENT I saw and evaluated the patient. I reviewed the resident's note and discussed the case with the resident. I agree with the resident's findings and plan as documented. SUBJECTIVE: Pt seen and examined in the ICU. Briefly, 86yo female with h/o CAD, COPD, LV systolic dysfunction, mitral regurgitation, atrial fibrillation, recent admission for pneumonia and C diff who was transferred from the shelter with worsening shortness of breath. Pt unable to provide further history at this time as she is altered. CXR showing congestive changes and possible LLL infiltrate. UA mildly positive. She was treated with a course of meropenem and oral vanco last admission. Borderline hypotensive in the ER, started on peripheral dopamine gtt. OBJECTIVE: Last Vital Signs Temp Pulse Resp BP Pulse Ox 97.7 F 93 H 20 123/91 100 05/29/17 11:36 05/29/17 12:00 05/29/17 12:00 05/29/17 12:00 05/29/17 11:18 Intake & Output 05/26/17 05/27/17 05/28/17 05/29/17 23:59 23:59 23:59 23:59 Intake Total 1055 Output Total 200 Balance 855 Weight 240 lb 241 lb 2.971 oz Gen: confused, mildly tachypneic Heart: RRR Lung: decreased breath sounds at the bases Abd: soft, nontender Ext: no edema CBC, BMP 05/29/17 00:31 05/29/17 00:31 Active Medications Dopamine HCl/Dextrose (Dopamine 400 Mg/D5w -) 400,000 mcg in 250 mls @ 20.412 mls/hr IVPB TITR MALIK; 5 MCG/KG/MIN PRN Reason: Protocol Last Admin: 05/29/17 05:07 Dose: 5 mcg/kg/min, 20.412 mls/hr Pneumococcal 13-Valent Conj Vacc (Prevnar 13 Syringe -) 0.5 ml IM .ONCE ONE Stop: 05/29/17 11:43 ASSESSMENT AND PLAN: Pneumonia r/o UTI Septic Shock Acute on Chronic Renal Failure Hyperkalemia Lactic Acidosis COPD LV Systolic Dysfunction Mitral Regurgitation Atrial Fibrillation - antibiotics to cover health care acquired organisms - f/u cultures - hold BP meds - titrate dopamine gtt to maintain MAP >65 - monitor urine output, creatinine - inhaled bronchodilators - O2 to keep Spo2 >90% - continue anticoagulation - kayexalate - monitor lytes - DVT prophylaxis - ICU monitoring
--- NOTE | 2017-05-29 16:13 | CONSULT ---
Consultation: REQUESTING PROVIDER: CONSULT REQUEST: We have been asked to medically evaluate this patient for septic shock requiring pressors and ICU care. HISTORY OF PRESENT ILLNESS: Pt is an 86 F with recent admission for PNA in the setting of CHF exacerbation who had developed C. diff and was discharged from hospital to [place] yesterday. During that hospital stay, she received Meropenem and Vanco. Pt was transferred here today due to worsening SOB. In ED, she was found to have bibasilar crackles when lying flat. CXR shows congestive changes with possible LLL infiltrate and mildly positive UA. Pt is currently on Dopamine drip. Pt is now communicative. On interview, she states she does not know where she is or how she got here, but was able to correctly give her name, year, and city. She admits to feeling mildly short of breath but has no other complaints. On questioning, she admits to having had diarrhea several times a day for "a while", although she cannot provide any detail about color or presence of blood. Denies dysuria. Denies fever, cough, sick contacts, recent travel. Pt does not appear distressed. REVIEW OF SYSTEMS: CONSTITUTIONAL: fever Absent: , chills, diaphoresis, generalized weakness, malaise, loss of appetite, weight change HEENT: Absent: rhinorrhea, nasal congestion, throat pain, throat swelling, difficulty swallowing, mouth swelling, ear pain, eye pain, visual changes CARDIOVASCULAR: Absent: chest pain, syncope, palpitations, irregular heart rate, lightheadedness , peripheral edema RESPIRATORY: shortness of breath Absent: cough, , dyspnea with exertion, orthopnea, wheezing, stridor, hemoptysis GASTROINTESTINAL: Absent: abdominal pain, abdominal distension, nausea, vomiting, diarrhea, constipation, melena, hematochezia GENITOURINARY: Absent: dysuria, frequency, urgency, hesitancy, hematuria, flank pain, genital pain MUSCULOSKELETAL: Absent: myalgia, arthralgia, joint swelling, back pain, neck pain SKIN: Absent: rash, itching, pallor HEMATOLOGIC/IMMUNOLOGIC: Absent: easy bleeding, easy bruising, lymphadenopathy, frequent infections ENDOCRINE: Absent: unexplained weight gain, unexplained weight loss, heat intolerance, cold intolerance NEUROLOGIC: Absent: headache, focal weakness or paresthesias, dizziness, unsteady gait, seizure, mental status changes, bladder or bowel incontinence PSYCHIATRIC: Absent: anxiety, depression, suicidal or homicidal ideation, hallucinations. PHYSICAL EXAMINATION Vital Signs - 24 hr 05/28/17 05/29/17 05/29/17 22:39 02:48 05:07 Temperature 98.6 F Pulse Rate 89 80 Pulse Rate [ 93 H Apical] Respiratory 18 20 Rate Blood Pressure 100/40 88/58 Blood Pressure 88/68 [Left Arm] O2 Sat by Pulse 95 98 Oximetry (%) 05/29/17 05/29/17 05/29/17 05:22 05:24 05:34 Temperature 98.7 F Pulse Rate Pulse Rate [ 94 H 94 H Apical] Respiratory 24 24 Rate Blood Pressure Blood Pressure 87/51 91/69 [Left Arm] O2 Sat by Pulse 99 100 Oximetry (%) 05/29/17 05/29/17 05/29/17 06:47 07:05 07:15 Temperature Pulse Rate 95 H Pulse Rate [ 94 H 95 H Apical] Respiratory 20 24 24 Rate Blood Pressure 94/62 Blood Pressure 94/61 108/60 [Left Arm] O2 Sat by Pulse 100 95 94 L Oximetry (%) 05/29/17 05/29/17 05/29/17 07:30 08:00 08:09 Temperature Pulse Rate Pulse Rate [ 95 H 95 H Apical] Respiratory 24 24 Rate Blood Pressure Blood Pressure 106/43 93/57 [Left Arm] O2 Sat by Pulse 98 94 L 95 Oximetry (%) 05/29/17 05/29/17 05/29/17 08:30 09:00 09:58 Temperature Pulse Rate Pulse Rate [ 95 H 96 H 94 H Apical] Respiratory 20 20 20 Rate Blood Pressure Blood Pressure 102/65 100/64 96/58 [Left Arm] O2 Sat by Pulse 96 96 96 Oximetry (%) 05/29/17 05/29/17 05/29/17 11:18 11:36 12:00 Temperature 97.7 F Pulse Rate 93 H 93 H 93 H Pulse Rate [ Apical] Respiratory 13 20 20 Rate Blood Pressure 100/76 123/91 Blood Pressure [Left Arm] O2 Sat by Pulse 100 Oximetry (%) 05/29/17 14:00 Temperature 98.0 F Pulse Rate 98 H Pulse Rate [ Apical] Respiratory 29 H Rate Blood Pressure 114/85 Blood Pressure [Left Arm] O2 Sat by Pulse Oximetry (%) GENERAL: Awake, alert, and fully oriented, in no acute distress. HEAD: Normal with no signs of trauma. EYES: Pupils equal, round and reactive to light, extraocular movements intact, sclera anicteric, conjunctiva clear. No lid lag. EARS, NOSE, THROAT: oropharynx clear without exudates. Moist mucous membranes. NECK: Normal range of motion, supple without lymphadenopathy, JVD, or masses. No bruits. No stridor LUNGS: expiratory bibasilar wheezes, and no crackles. No accessory muscle use. HEART: Regular rate and rhythm, normal S1 and S2 without murmur, rub or gallop. ABDOMEN: Soft, nontender, not distended, normoactive bowel sounds, no guarding, no rebound, no masses. No hepatomegaly or splenomegaly. MUSCULOSKELETAL: Normal range of motion at all joints. No bony deformities or tenderness. No CVA tenderness. UPPER EXTREMITIES: 2+ pulses, warm, well-perfused. No cyanosis. No clubbing. Cap refill <2 seconds. No peripheral edema. LOWER EXTREMITIES: 2+ pulses, warm, well-perfused. No calf tenderness. No peripheral edema. NEUROLOGICAL: Cranial nerves II-XII intact. Normal speech. Normal gait. PSYCHIATRIC: Cooperative. Good eye contact. Appropriate mood and affect. SKIN: Warm, dry, normal turgor, no rashes or lesions noted. Laboratory Results - last 24 hr 05/29/17 05/29/17 05/29/17 00:31 00:31 00:31 WBC 21.9 H D RBC 2.73 L Hgb 8.5 L Hct 26.9 L MCV 98.8 H MCH 31.2 MCHC 31.6 L RDW 26.0 H Plt Count 276 MPV 9.2 Neutrophils % No Result Required. Neutrophils % (Manual) 75.0 Band Neutrophils % 10.0 Lymphocytes % No Result Required. Lymphocytes % (Manual) 6.0 L D Monocytes % (Manual) 4 D Eosinophils % (Manual) 5.0 H Smudge Cells Few Hypochromia 1+ Polychromasia 1+ Poikilocytosis 1+ Anisocytosis 3+ Sodium 142 Potassium 5.8 H D Chloride 109 H Carbon Dioxide 22 Anion Gap 11 BUN 41 H D Creatinine 3.6 H D Creat Clearance w eGFR 11.96 Random Glucose 106 D Lactic Acid Calcium 8.5 Total Bilirubin 0.4 AST 51 H D ALT 44 D Alkaline Phosphatase 56 Creatine Kinase 93 Troponin I 0.06 H B-Natriuretic Peptide 88576.98 H Total Protein 6.7 Albumin 2.1 L Urine Color Urine Appearance Urine pH Ur Specific [place] Urine Protein Urine Glucose (UA) Urine Ketones Urine Blood Urine Nitrite Urine Bilirubin Urine Urobilinogen Ur Leukocyte Esterase Urine WBC (Auto) Urine RBC (Auto) Ur Epithelial Cells Urine Bacteria Urine Yeast 05/29/17 05/29/17 05/29/17 00:31 01:40 04:49 WBC RBC Hgb Hct MCV MCH MCHC RDW Plt Count MPV Neutrophils % Neutrophils % (Manual) Band Neutrophils % Lymphocytes % Lymphocytes % (Manual) Monocytes % (Manual) Eosinophils % (Manual) Smudge Cells Hypochromia Polychromasia Poikilocytosis Anisocytosis Sodium Potassium Chloride Carbon Dioxide Anion Gap BUN Creatinine Creat Clearance w eGFR Random Glucose Lactic Acid 3.5 H* 1.6 Calcium Total Bilirubin AST ALT Alkaline Phosphatase Creatine Kinase Troponin I B-Natriuretic Peptide Total Protein Albumin Urine Color Bianca Urine Appearance Slcloudy Urine pH 5.0 Ur Specific [place] 1.013 Urine Protein Negative Urine Glucose (UA) Negative Urine Ketones Negative Urine Blood Negative Urine Nitrite Negative Urine Bilirubin Negative Urine Urobilinogen Negative Ur Leukocyte Esterase 1+ H Urine WBC (Auto) 8 Urine RBC (Auto) 1 Ur Epithelial Cells Rare Urine Bacteria Moderate Urine Yeast Few Active Medications Generic Name Dose Route Start Last Admin Trade Name Freq PRN Reason Stop Dose Admin Dopamine HCl/Dextrose 400,000 mcg in 250 mls @ 20.412 mls/hr 05/29/17 04:45 05/29/17 05:07 Dopamine 400 Mg/D5w - IVPB 5 mcg/kg/min TITR MALIK 20.412 mls/hr Protocol Administration 5 MCG/KG/MIN Pneumococcal 13-Valent Conj Vacc 0.5 ml 05/29/17 11:42 Prevnar 13 Syringe - IM 05/29/17 11:43 .ONCE ONE ASSESSMENT/PLAN: Pt is an 86F w/ PMH CAD, COPD, LV systolic dysfunction, mitral regurgitation, atrial fibrillation, recent admission for pneumonia and C diff brought to ICU from [place] because of SOB and fever following a recent admission for PNA. Pt is admitted to ICU for management of possible health care acquired infection, and septic shock. Pulm #Possible HCAP -pt recently in hospital -febrile, leukocytosis, CXR showing possible LLL infiltrate -got Vanc and Flagyl -On Cefepime now -f/u Cx #Shock -2/2 Sepsis -On dopamine -BP 128/97 #Lactic Acidosis: Resolved -LA 3.5 -> 1.6 #COPD -pt not SOB at this time. -bibasilar wheezing -O2 sats 100 on 2L -monitor and resume home meds when stable Cardio #CHF -hist CAD and LV dysfunction -CXR showing congestion -will consider possible diuresis tomorrow #Afib -warfarin #HTN -holding BP meds while pt requiring Dopamine #UTI -mildly positive UA -on ABx FEN -Not on fluid in setting of possible CHF exacerbation -mild hyperkalemia. Kayexalate -Na, K controlled low cholesterol PPx -Warfarin Dispo: We will continue to follow the patient. Thank you for this consultative opportunity. Oscar Hackett MD PGY-1 ICU Visit type - Emergency Visit Emergency Visit: No - New Patient This patient is new to me today: Yes Date on this admission: 05/29/17 - Critical Care Critical Care patient: Yes Total Critical Care Time (in minutes): 40 Critical Care Statement: The care of this patient involved high complexity decision making to prevent further life threatening deterioration of the patient 's condition and/or to evaluate & treat vital organ system(s) failure or risk of failure.
[2017-05-29] MEDS ORDERED: CEFEPIME HCL 2 GM VIAL (RESTRICTED TO ID) IVPB SCH (16:15)
[2017-05-29] MEDS ORDERED: VANCOMYCIN 1,500 MG in DEXTROSE 5%-WATER - 500 ML IVPB ONE (16:45)
[2017-05-29] MEDS ORDERED: PT OWN MED DRAWER 7, Y5N ONE (17:42)
[2017-05-29] MEDS: CEFEPIME 2 GM in DEXTROSE 5%-WATER - 100 ML IVPB SCH (18:00)
[2017-05-29] MEDS ORDERED: HEPARIN NA (PORCINE) 5,000 UNITS/ML 1ML VIAL SQ SCH (22:00)
[2017-05-29] MEDS ORDERED: LORazepam 2 MG/ML SDV VIAL IVPUSH ONE (22:04)
[2017-05-29] MEDS ORDERED: LORazepam 2 MG/ML SDV VIAL ONE (22:06)
--- NOTE | 2017-05-29 23:14 | PROC ---
Central Line Insertion Indication: Poor Venous Access Risks and Benefits Explained: Yes Consent on Chart: Yes Central Line: Triple Lumen Catheter Anesthesia: 1% Lidocaine Sterile Technique: Yes Ultrasound Guided Assistance: Yes Position: Right Internal Jugular Post Insertion: Yes: Bilateral Breath Sounds, Bilateral Chest Expansion, Chest X-Ray Ordered Sterile Dressing Applied: Yes
[2017-05-30 06:14] LABS: BASO % 0.6 % (0-2.0); EOS % 11.4 % (0-4.5); MCH 31.9 pg (25.7-33.7); MCHC 32.7 g/dl (32.0-36.0); MEAN CELL VOLUME 97.7 fl (80-96); MEAN PLT VOLUME 9.2 fl (7.5-11.1); NEUT % 71.8 % (42.8-82.8); PLATELET COUNT 233 K/MM3 (134-434); RDW 25.4 % (11.6-15.6); WHITE BLOOD COUNT 11.8 K/mm3 (4.0-10.0)
[2017-05-30] MEDS: DOPAMINE 400 MG/D5W - 400,000 MCG/250 ML INFUS.BAG IVPB SCH (06:23)
[2017-05-30 06:46] LABS: ALBUMIN 1.9 g/dl (3.4-5.0); CO2 27 mmol/L (21-32); GLUCOSE,RANDOM 75 mg/dL (74-106); MAGNESIUM 1.9 mg/dL (1.8-2.4)
[2017-05-30 06:57] LABS: ANION GAP 4 (8-16)
[2017-05-30 08:21] LABS: CREATININE 2.5 mg/dL (0.55-1.02); PHOSPHOROUS 4.4 mg/dL (2.5-4.9); TOT PROT 5.7 g/dl (6.4-8.2)
[2017-05-30 08:22] LABS: ALK PHOS 53 U/L (45-117); BILIRUBIN,TOTAL 0.3 mg/dL (0.2-1.0); SGOT/AST 32 U/L (15-37); SGPT/ALT 55 U/L (12-78)
--- NOTE | 2017-05-30 10:52 | HP ---
DATE OF ADMISSION: 05/29/2017 DATE OF DICTATION: 05/30/2017 HISTORY OF PRESENT ILLNESS: This is an 86-year-old female who [facility]. After 2 days, she started having fever and was sent back here. Yesterday morning in the ER, she was having fever and was hypotensive, so, she got admitted to the ICU. This morning, she is still on pressors, but awake and talking. She is known to have ASHD, new onset of atrial fibrillation, also was having C. difficile diarrhea. She was on vancomycin and Cipro for UTI and C. difficile. PHYSICAL EXAMINATION: Vital signs: Today, blood pressure is 100/71, pulse 94, respirations 20, temperature 98. HEENT: Unremarkable. Neck: Supple. No JVD. Lungs: Bilateral rales present. Heart: S1, S2 normal. No S3, S4. Abdomen: Soft. Extremities: Legs, no edema. Neurologic: Grossly normal. LABORATORY REPORTS: At the time of admission her WBC count was 21 and this morning it is 11.8, hemoglobin 8, hematocrit 24, platelets 233. Chemistry: Sodium 144, potassium 4.6, creatinine 2.5, lactic acid 3.5, albumin 1.9. B peptide 34,000. Chest x-ray showed infiltrate, right base. IMPRESSION: Pneumonia, congestive heart failure, atrial fibrillation, sepsis. PLAN: Continue ICU care. Will discuss with Dr. Whittaker. Jenny [id number]
--- NOTE | 2017-05-30 11:36 | PN ---
Teaching Attending Note Name of Resident: Vega Carlos ATTENDING PHYSICIAN STATEMENT I saw and evaluated the patient. I reviewed the resident's note and discussed the case with the resident. I agree with the resident's findings and plan as documented. SUBJECTIVE: Patient seen and examined in the ICU. Awake and alert. Reports some dry cough , no sputum or hemoptysis. Currently off pressors. Intake & Output 05/27/17 05/28/17 05/29/17 05/30/17 23:59 23:59 23:59 23:59 Intake Total 1055 100 Output Total 1000 300 Balance 55 -200 Weight 240 lb 241 lb 2.971 oz 236 lb 8 oz Last Vital Signs Temp Pulse Resp BP Pulse Ox 97.7 F 96 H 18 93/69 100 05/30/17 06:00 05/30/17 10:00 05/30/17 10:00 05/30/17 10:00 05/29/17 19:26 Active Medications Dopamine HCl/Dextrose (Dopamine 400 Mg/D5w -) 400,000 mcg in 250 mls @ 20.412 mls/hr IVPB TITR MALIK; 5 MCG/KG/MIN PRN Reason: Protocol Last Admin: 05/30/17 06:23 Dose: Not Given Cefepime HCl 2 gm/ Dextrose 100 mls @ 200 mls/hr IVPB DAILY@1800 [facility] Last Admin: 05/29/17 18:00 Dose: 200 mls/hr Warfarin Sodium (Coumadin -) 3 mg PO DAILY@1800 [facility] GENERAL: Awake, alert, and oriented, in no acute distress. HEAD: Normal with no signs of trauma. EYES: Pupils equal, round and reactive to light, extraocular movements intact, sclera anicteric, conjunctiva clear. No lid lag. EARS, NOSE, THROAT: oropharynx clear without exudates. Moist mucous membranes. NECK: Normal range of motion, supple without lymphadenopathy, JVD, or masses. No bruits. No stridor LUNGS: Basilar rhonchi HEART: Regular rate and rhythm, normal S1 and S2 without murmur, rub or gallop. ABDOMEN: Soft, nontender, not distended, normoactive bowel sounds, no guarding, no rebound, no masses. No hepatomegaly or splenomegaly. MUSCULOSKELETAL: Normal range of motion at all joints. No bony deformities or tenderness. No CVA tenderness. UPPER EXTREMITIES: 2+ pulses, warm, well-perfused. No cyanosis. No clubbing. Cap refill <2 seconds. No peripheral edema. LOWER EXTREMITIES: 2+ pulses, warm, well-perfused. No calf tenderness. No peripheral edema. NEUROLOGICAL: Non-focal PSYCHIATRIC: Cooperative. Good eye contact. Appropriate mood and affect. SKIN: Warm, dry, normal turgor, no rashes or lesions noted. Laboratory Results - last 24 hr 05/29/17 05/30/17 05/30/17 01:40 05:55 05:55 WBC 11.8 H D RBC 2.50 L Hgb 8.0 L Hct 24.5 L MCV 97.7 H MCH 31.9 MCHC 32.7 RDW 25.4 H Plt Count 233 MPV 9.2 Neutrophils % 71.8 D Lymphocytes % 11.7 D Monocytes % 4.5 Eosinophils % 11.4 H D Basophils % 0.6 Sodium 144 Potassium 4.6 D Chloride 113 H Carbon Dioxide 27 D Anion Gap 4 L BUN 42 H Creatinine 2.5 H D Creat Clearance w eGFR 18.22 Random Glucose 75 D Calcium 8.0 L Phosphorus 4.4 Magnesium 1.9 Total Bilirubin 0.3 D AST 32 D ALT 55 D Alkaline Phosphatase 53 Total Protein 5.7 L Albumin 1.9 L Ur Leukocyte Esterase 1+ H ASSESSMENT/PLAN: Resolving Septic Shock: Questionable LLL HAP R/O C Diff CAD COPD LV systolic dysfunction Mitral regurgitation Atrial fibrillation Recent admission for pneumonia and C diff Monitor off pressors Check CVP Review ECHO Davila-culture ABX per ID BD TX PRN If BP remains stable -> Trial of Lasix O2 as needed IV Heparin to be started Follow polina Amaya Critical care time spent in reviewing chart, evaluating patient and formulating plan - 36 minutes.
--- NOTE | 2017-05-30 11:40 | PN ---
Physical Exam: SUBJECTIVE: The patient is an 86F with a PMH of CAD, COPD, LV dysfxn, a-fib, mitral regurg who presented with worsening SOB. She was discharged yesterday from our facility and transfered to a shelter. During her stay in our facility, she was receiving oral vanc and meropenem for C. diff infection. CXR in ED showed congestive changes w/ possible LLL infiltrate. Overnight she had no events. She has no complaints today and is unsure if she is having diarrhea. Patient is hemodynamically stable. OBJECTIVE: Vital Signs Period Temp Pulse Resp BP Sys/Rodriguez Pulse Ox Last 24 Hr 97.7 F-98.2 F 92-100 16-29 93-125/58-91 100 GENERAL: The patient is awake, alert, in no acute distress. HEAD: Normal with no signs of trauma. EYES: PERRL, extraocular movements intact, sclera anicteric, conjunctiva clear. No ptosis. NECK: Trachea midline, full range of motion, supple. LUNGS: Breath sounds equal, clear to auscultation bilaterally, no wheezes, no crackles, no accessory muscle use. HEART: Regular rate and rhythm, S1, S2 without murmur, rub or gallop. ABDOMEN: Soft, nontender, nondistended, normoactive bowel sounds, no guarding, no rebound, no hepatosplenomegaly, no masses. EXTREMITIES: 2+ pulses, warm, well-perfused, no edema. NEUROLOGICAL: Cranial nerves II through XII grossly intact. Normal speech, gait not observed. PSYCH: Normal mood, normal affect. SKIN: Warm, dry, normal turgor, no rashes or lesions noted Laboratory Results - last 24 hr 05/29/17 05/30/17 05/30/17 01:40 05:55 05:55 WBC 11.8 H D RBC 2.50 L Hgb 8.0 L Hct 24.5 L MCV 97.7 H MCH 31.9 MCHC 32.7 RDW 25.4 H Plt Count 233 MPV 9.2 Neutrophils % 71.8 D Lymphocytes % 11.7 D Monocytes % 4.5 Eosinophils % 11.4 H D Basophils % 0.6 Sodium 144 Potassium 4.6 D Chloride 113 H Carbon Dioxide 27 D Anion Gap 4 L BUN 42 H Creatinine 2.5 H D Creat Clearance w eGFR 18.22 Random Glucose 75 D Calcium 8.0 L Phosphorus 4.4 Magnesium 1.9 Total Bilirubin 0.3 D AST 32 D ALT 55 D Alkaline Phosphatase 53 Total Protein 5.7 L Albumin 1.9 L Ur Leukocyte Esterase 1+ H Active Medications Generic Name Dose Route Start Last Admin Trade Name Manisha PRN Reason Stop Dose Admin Dopamine HCl/Dextrose 400,000 mcg in 250 mls @ 20.412 mls/hr 05/29/17 04:45 05/30/17 06:23 Dopamine 400 Mg/D5w - IVPB Not Given TITR MALIK Protocol 5 MCG/KG/MIN Cefepime HCl 2 gm/ Dextrose 100 mls @ 200 mls/hr 05/29/17 18:00 05/29/17 18: 00 IVPB 200 mls/hr DAILY@1800 [facility] Administration Warfarin Sodium 3 mg 05/30/17 18:00 Coumadin - PO DAILY@1800 [facility] ASSESSMENT/PLAN: The patient is an 86F with a PMH of CAD, COPD, a-fib, recently discharged from our facility with PNA and positive C-diff diarrhea who presented with shortness of breath and b/l pleural effusions on CXR. Neuro: - At baseline CV: CHF - Echo ordered - BNP: [id number] HTN - Patient currently hypotensive and requiring dopamine @ 20mL/hour - Hold HTN meds A-fib - Currently on warfarin - Will order INR to switch to heparin drip Pulm: HCAP - Was covered with vanc and flagyll in ER - Continuing to get cefepime - May add additional vanc and azithro for HCAP coverage Renal: EMANUEL - BUN/Cr 42/2.5 - Improved from yesterday 41/3.6 GI: C. diff colitis - Confirmed on previous stool sample - Ordered repeat testing to confirm on this stay - There is a discrepancy between patient/staff if patient is actually having episodes of diarrhea - Will inform nurse/techs to record episodes of loose stool : - Inconclusive UA - Will repeat UA tomorrow ID: - Would appreciate ID recs on abx choice for patient - Will lugo culture pt Hem/Onc: - Trend Hgb: 8.0 from 8.5 PPX: - Currently on warfarin - Will switch to heparin after INR comes in FEN (Fluids, electrolytes, nutrition): - Cholesterol/Na diet Dispo: - Continue to monitor in ICU Visit type - Emergency Visit Emergency Visit: Yes ED Registration Date: 05/29/17 Care time: The patient presented to the Emergency Department on the above date and was hospitalized for further evaluation of their emergent condition. - New Patient This patient is new to me today: Yes Date on this admission: 05/30/17 - Critical Care Critical Care patient: Yes Total Critical Care Time (in minutes): 40 Critical Care Statement: The care of this patient involved high complexity decision making to prevent further life threatening deterioration of the patient 's condition and/or to evaluate & treat vital organ system(s) failure or risk of failure.
[2017-05-30 14:01] LABS: PROTHROMBIN TIME (PATIENT) 47.9 SEC (9.98-11.88)
[2017-05-30 14:04] LABS: ACTIVATED PTT 36.4 SECONDS (26.9-34.4)
[2017-05-30 14:10] LABS: INR 4.24 (0.82-1.09)
[2017-05-30 16:28] LABS: URINE APPEARANCE SLCLOUDY; URINE BILIRUBIN NEGATIVE (NEGATIVE); URINE BLOOD 2+ (NEGATIVE); URINE COLOR LTYELLOW; URINE GLUCOSE (UA) NEGATIVE (NEGATIVE); URINE KETONE NEGATIVE (NEGATIVE); URINE NITRITE NEGATIVE (NEGATIVE); URINE PROTEIN NEGATIVE (NEGATIVE); URINE UROBILINOGEN NEGATIVE mg/dL (0.2-1.0)
[2017-05-30 16:50] LABS: URINE LEUK ESTERASE 1+ (NEGATIVE)
[2017-05-30 17:01] LABS: URINE MUCUS RARE; URINE RBC 11 /hpf (0-3); URINE WBC 42 /hpf (3-5)
[2017-05-30] MEDS ORDERED: WARFARIN NA 3 MG TABLET PO SCH (18:00)
[2017-05-30] MEDS: CEFEPIME 2 GM in DEXTROSE 5%-WATER - 100 ML IVPB SCH (18:12)
[2017-05-30] MEDS: VANCOMYCIN 250 MG/5 ML ORAL SOLUTION PO SCH (18:12)
[2017-05-30 18:50] LABS: URINE LEUK ESTERASE TRACE (NEGATIVE)
[2017-05-31] MEDS: VANCOMYCIN 250 MG/5 ML ORAL SOLUTION PO SCH ×4 (00:11→17:39)
[2017-05-31 06:11] LABS: BASO % 0.8 % (0-2.0); EOS % 13.8 % (0-4.5); MCH 32.2 pg (25.7-33.7); MCHC 33.1 g/dl (32.0-36.0); MEAN CELL VOLUME 97.4 fl (80-96); MEAN PLT VOLUME 9.1 fl (7.5-11.1); NEUT % 57.9 % (42.8-82.8); PLATELET COUNT 215 K/MM3 (134-434); RDW 24.5 % (11.6-15.6); WHITE BLOOD COUNT 7.1 K/mm3 (4.0-10.0)
[2017-05-31 06:45] LABS: ALBUMIN 1.9 g/dl (3.4-5.0); ANION GAP 8 (8-16); BILIRUBIN,TOTAL 0.2 mg/dL (0.2-1.0); CO2 26 mmol/L (21-32); GLUCOSE,RANDOM 85 mg/dL (74-106); MAGNESIUM 1.8 mg/dL (1.8-2.4); PHOSPHOROUS 3.7 mg/dL (2.5-4.9); SGOT/AST 19 U/L (15-37); SGPT/ALT 47 U/L (12-78); TOT PROT 5.8 g/dl (6.4-8.2)
[2017-05-31 06:46] LABS: ALK PHOS 50 U/L (45-117)
[2017-05-31 08:56] LABS: INR 3.71 (0.82-1.09); PROTHROMBIN TIME (PATIENT) 41.9 SEC (9.98-11.88)
--- NOTE | 2017-05-31 09:09 | PN ---
Progress Note, Physician Chief Complaint: Feels better History of Present Illness: Admitted with septic shock Doing better,off pressers - Current Medication List Current Medications: Active Medications Cefepime HCl 2 gm/ Dextrose 100 mls @ 200 mls/hr IVPB DAILY@1800 [facility] Last Admin: 05/30/17 18:12 Dose: 200 mls/hr Vancomycin HCl (Vancomycin Oral Solution) 250 mg PO Q6HPO [facility] Last Admin: 05/31/17 05:44 Dose: 250 mg - Objective Vital Signs: Vital Signs Temperature 98.6 F 05/31/17 06:00 Pulse Rate 102 H 05/31/17 08:00 Respiratory Rate 16 05/31/17 08:00 Blood Pressure 120/72 05/31/17 08:00 O2 Sat by Pulse Oximetry (%) 100 05/30/17 21:00 Constitutional: Yes: Calm Eyes: Yes: WNL HENT: Yes: WNL Neck: Yes: WNL Cardiovascular: Yes: WNL Respiratory: Yes: WNL Gastrointestinal: Yes: Normal Bowel Sounds Genitourinary: Yes: Gibbons Present Musculoskeletal: Yes: Muscle Weakness Neurological: Yes: Alert Psychiatric: Yes: Alert Labs: CBC, BMP 05/31/17 05:05 05/31/17 05:05 INR, PTT INR 3.71 (0.82-1.09) H 05/31/17 05:05 Assessment/Plan OOB in chair
--- NOTE | 2017-05-31 09:58 | PN ---
Progress Note (short form) - Note Progress Note: PULMONARY/CCM Pt seen and examined in the ICU. Off pressors. Some shortness of breath and nonproductive cough. No fevers recorded. Last Vital Signs Temp Pulse Resp BP Pulse Ox 98.6 F 102 H 16 120/72 100 05/31/17 06:00 05/31/17 08:00 05/31/17 09:00 05/31/17 08:00 05/31/17 09:00 Intake & Output 05/28/17 05/29/17 05/30/17 05/31/17 23:59 23:59 23:59 23:59 Intake Total 1055 640 480 Output Total 1000 1000 800 Balance 55 -360 -320 Weight 240 lb 241 lb 2.971 oz 236 lb 8 oz 238 lb 9.6 oz Gen: NAD at rest Heart: irregular Lung: decreased breath sounds at the bases Abd: soft, nontender Ext: no edema CBC, BMP 05/31/17 05:05 05/31/17 05:05 Active Medications Cefepime HCl 2 gm/ Dextrose 100 mls @ 200 mls/hr IVPB DAILY@1800 [facility] Last Admin: 05/30/17 18:12 Dose: 200 mls/hr Vancomycin HCl (Vancomycin Oral Solution) 250 mg PO Q6HPO [facility] Last Admin: 05/31/17 05:44 Dose: 250 mg A/P Pneumonia r/o UTI Septic Shock Acute on Chronic Renal Failure Hyperkalemia Lactic Acidosis COPD LV Systolic Dysfunction Mitral Regurgitation Atrial Fibrillation - antibiotics to cover health care acquired organisms - f/u cultures - will consider d/c antibiotics if cultures negative - resume BP meds - lasix today - monitor urine output, creatinine - inhaled bronchodilators - O2 to keep Spo2 >90% - rate control - continue anticoagulation - monitor lytes - DVT prophylaxis - can monitor on telemetry critical care time spent in reviewing chart, evaluating patient and formulating plan 35 min
[2017-05-31] MEDS ORDERED: oxyCODONE HCL 5 MG TABLET PO PRN ×2 (10:00→15:33)
[2017-05-31] MEDS ORDERED: METOPROLOL SUCCINATE 100 MG TAB.SR.24H (FP) PO SCH (10:00)
[2017-05-31] MEDS ORDERED: ASPIRIN 81 MG CHEWABLE TABLETS PO SCH (10:00)
[2017-05-31] MEDS ORDERED: AMIODARONE HCL 200 MG TABLET (FP) PO SCH (10:00)
[2017-05-31] MEDS ORDERED: LOSARTAN POTASSIUM 50 MG TABLET (FP) PO SCH (10:00)
[2017-05-31] MEDS ORDERED: ISOSORBIDE MONONITRATE 30 MG TAB.SR.24H (FP) PO SCH (10:00)
[2017-05-31] MEDS ORDERED: PANTOPRAZOLE 40 MG TABLET (FP) PO SCH (10:00)
[2017-05-31] MEDS ORDERED: FUROSEMIDE 40 MG/4 ML INJECTABLE VIAL IVPUSH ONE (10:15)
[2017-05-31] MEDS ORDERED: ALBUTEROL SO4 0.083% IH SOL 2.5 MG/3 ML VIAL.NEB. NEB SCH (12:00)
[2017-05-31] MEDS ORDERED: VANCOMYCIN 250 MG/5 ML ORAL SOLUTION PO SCH (12:00)
--- NOTE | 2017-05-31 13:01 | PN ---
Progress Note, Physician History of Present Illness: This is an 86 y.o. female with PMH of CHF, COPD CKD, AFIB recently treated for PNA and started on Vanco PO for c.diff associated diarrhea who was discharged from the hospital. She was then re-admitted for SOB and hypotension. Presented with leukocytosis and elevated lactic acid and restarted on antibiotics empirically. Pt was on a dopamine drip yesterday, now discontinued. Currently she is sitting in the chair, remains afebrile, denies cough, fever, chills. Had no BM last night, denies abd pain. - Current Medication List Current Medications: Active Medications Albuterol Sulfate (Ventolin 0.083% Nebulizer Soln -) 1 amp NEB QIDR [facility] Last Admin: 05/31/17 12:33 Dose: 1 amp Amiodarone HCl (Cordarone -) 200 mg PO BID [facility] Last Admin: 05/31/17 10:47 Dose: 200 mg Aspirin (Asa -) 81 mg PO DAILY [facility] Last Admin: 05/31/17 10:47 Dose: 81 mg Diltiazem HCl (Cardizem Cd -) 240 mg PO DAILY [facility] Last Admin: 05/31/17 10:51 Dose: 240 mg Cefepime HCl 2 gm/ Dextrose 100 mls @ 200 mls/hr IVPB DAILY@1800 [facility] Last Admin: 05/30/17 18:12 Dose: 200 mls/hr Isosorbide Mononitrate (Imdur -) 30 mg PO DAILY [facility] Last Admin: 05/31/17 10:47 Dose: 30 mg Losartan Potassium (Cozaar -) 50 mg PO DAILY [facility] Last Admin: 05/31/17 10:51 Dose: 50 mg Metoprolol Succinate (Toprol Xl -) 100 mg PO BID [facility] Last Admin: 05/31/17 10:47 Dose: 100 mg Oxycodone HCl (Roxicodone -) 5 mg PO Q6H PRN PRN Reason: PAIN Pantoprazole Sodium (Protonix -) 40 mg PO DAILY [facility] Last Admin: 05/31/17 10:47 Dose: 40 mg Vancomycin HCl (Vancomycin Oral Solution) 250 mg PO Q6HPO [facility] Last Admin: 05/31/17 11:21 Dose: 250 mg Warfarin Sodium (Coumadin -) 3 mg PO DAILY@1800 [facility] - Objective Vital Signs: Vital Signs Temperature 98.6 F 05/31/17 06:00 Pulse Rate 106 H 05/31/17 10:00 Respiratory Rate 16 05/31/17 10:00 Blood Pressure 119/77 05/31/17 10:00 O2 Sat by Pulse Oximetry (%) 100 05/31/17 10:20 Constitutional: Yes: No Distress, Calm Eyes: Yes: WNL HENT: Yes: WNL Neck: Yes: Supple Cardiovascular: Yes: Tachycardia Respiratory: Yes: CTA Bilaterally Gastrointestinal: Yes: Normal Bowel Sounds, Soft Genitourinary: Yes: WNL, Gibbons Present Musculoskeletal: Yes: WNL Integumentary: Yes: WNL Neurological: Yes: Alert, Oriented Psychiatric: Yes: WNL Labs: CBC, BMP 05/31/17 05:05 05/31/17 05:05 INR, PTT INR 3.71 (0.82-1.09) H 05/31/17 05:05 Microbiology 05/30/17 17:16 Stool Clostridium difficile Antigen (ROSE) - Final 05/30/17 17:16 Stool Clostridium difficile Toxin Assay - Final 05/29/17 00:32 Blood - Peripheral Venous Blood Culture - Preliminary NO GROWTH OBTAINED AFTER 48 HOURS, INCUBATION TO CONTINUE FOR 3 DAYS. 05/29/17 00:32 Blood - Peripheral Venous Blood Culture - Preliminary NO GROWTH OBTAINED AFTER 48 HOURS, INCUBATION TO CONTINUE FOR 3 DAYS. 05/29/17 01:40 Urine - Urine - Catheterized Urine Culture - Final NO GROWTH OBTAINED - ....Imaging Chest X-ray: Report Reviewed (congestive changes, possible LLL infiltrate) Problem List - Problems (1) Atrial fibrillation with RVR Code(s): I48.91 - UNSPECIFIED ATRIAL FIBRILLATION (2) C. difficile diarrhea Code(s): A04.72 - ENTEROCOLITIS D/T CLOSTRIDIUM DIFFICILE, NOT SPCF RECUR (3) CHF (NYHA class II, ACC/AHA stage C) Code(s): I50.9 - HEART FAILURE, UNSPECIFIED (4) CKD stage 4 secondary to hypertension Code(s): I12.9 - HYPERTENSIVE CHRONIC KIDNEY DISEASE W STG 1-4/UNSP CHR KDNY; N18.4 - CHRONIC KIDNEY DISEASE, STAGE 4 (SEVERE) (5) Leukocytosis Code(s): D72.829 - ELEVATED WHITE BLOOD CELL COUNT, UNSPECIFIED Assessment/Plan 86 y.o. female with history of CHF, COPD, Afib, CKD recently treated for PNA and C. diff (toxin a/b neg) with clinical improvement now re-admitted with hypotension, lactic acidosis, leukocytosis with shortness of breath. Pt now off vasopressor, no cough, remains afebrile, leukocytosis and lactic acidosis resolved. Shock ,? Sepsis LLL infiltrate ( seen on previous xrays) - s/p recent course of Meropenem Diarrhea- c. diff Isolated (nontoxigenic) - appeared to have been improved on Vancomycin PO, latest CDT negative - latest blood and urine cultures with no growth - now off Dopamine drip - suggest cont. Cefepime for now, continue monitor rest of care per ICU cc time: 40 min
[2017-05-31 14:17] VITALS: BMI 38.9
[2017-05-31] MEDS: LACTOBACILLUS ACIDOPHILUS 1 EACH TAB (FP) PO SCH (16:53)
[2017-05-31] MEDS: WARFARIN NA 3 MG TABLET PO SCH (17:07)
[2017-05-31] MEDS: CEFEPIME 2 GM in DEXTROSE 5%-WATER - 100 ML IVPB SCH (17:42)
[2017-05-31] MEDS ORDERED: WARFARIN NA 3 MG TABLET PO SCH (18:00)
[2017-05-31] MEDS: ALBUTEROL SO4 0.083% IH SOL 2.5 MG/3 ML VIAL.NEB. NEB PRN (19:14)
[2017-05-31] MEDS: METOPROLOL SUCCINATE 100 MG TAB.SR.24H (FP) PO SCH (21:00)
[2017-05-31] MEDS: AMIODARONE HCL 200 MG TABLET (FP) PO SCH (21:00)
[2017-06-01] MEDS: VANCOMYCIN 250 MG/5 ML ORAL SOLUTION PO SCH ×4 (00:19→17:22)
[2017-06-01 07:25] LABS: BASO % 1.1 % (0-2.0); MCH 31.6 pg (25.7-33.7); MCHC 32.6 g/dl (32.0-36.0); MEAN CELL VOLUME 96.8 fl (80-96); MEAN PLT VOLUME 8.7 fl (7.5-11.1); NEUT % 47.5 % (42.8-82.8); PLATELET COUNT 202 K/MM3 (134-434); RDW 24.3 % (11.6-15.6); WHITE BLOOD COUNT 6.1 K/mm3 (4.0-10.0)
[2017-06-01 07:51] LABS: INR 3.38 (0.82-1.09); PROTHROMBIN TIME (PATIENT) 38.2 SEC (9.98-11.88)
[2017-06-01 07:54] LABS: ALBUMIN 1.8 g/dl (3.4-5.0); ANION GAP 6 (8-16); CALCIUM 7.8 mg/dL (8.5-10.1); CO2 28 mmol/L (21-32); GLUCOSE,RANDOM 92 mg/dL (74-106); MAGNESIUM 1.8 mg/dL (1.8-2.4)
[2017-06-01 07:59] LABS: ALK PHOS 48 U/L (45-117); BILIRUBIN,TOTAL 0.4 mg/dL (0.2-1.0); CREATININE 1.6 mg/dL (0.55-1.02); PHOSPHOROUS 3.6 mg/dL (2.5-4.9); SGOT/AST 12 U/L (15-37); SGPT/ALT 37 U/L (12-78); TOT PROT 5.7 g/dl (6.4-8.2)
[2017-06-01] MEDS: AMIODARONE HCL 200 MG TABLET (FP) PO SCH ×2 (10:54→21:59)
[2017-06-01] MEDS: LOSARTAN POTASSIUM 50 MG TABLET (FP) PO SCH (10:54)
[2017-06-01] MEDS: ISOSORBIDE MONONITRATE 30 MG TAB.SR.24H (FP) PO SCH (10:54)
[2017-06-01] MEDS: LACTOBACILLUS ACIDOPHILUS 1 EACH TAB (FP) PO SCH (10:54)
[2017-06-01] MEDS: PANTOPRAZOLE 40 MG TABLET (FP) PO SCH (10:54)
[2017-06-01] MEDS: METOPROLOL SUCCINATE 100 MG TAB.SR.24H (FP) PO SCH ×2 (10:54→21:59)
[2017-06-01] MEDS: ASPIRIN 81 MG CHEWABLE TABLETS PO SCH (10:54)
[2017-06-01] MEDS ORDERED: PT OWN MED DRAWER 7, Y5N ONE ×2 (11:27→17:02)
[2017-06-01] MEDS ORDERED: VANCOMYCIN 1,000 MG in SODIUM CHLORIDE 250 ML IVPB ONE (13:00)
--- NOTE | 2017-06-01 13:14 | PN ---
Progress Note, Physician Chief Complaint: Feels OK History of Present Illness: On telemetry Blood culture + ,added Vanco as per ID - Current Medication List Current Medications: Active Medications Albuterol Sulfate (Ventolin 0.083% Nebulizer Soln -) 1 amp NEB Q6H PRN PRN Reason: SHORT OF BREATH/WHEEZING Last Admin: 05/31/17 19:14 Dose: 1 amp Amiodarone HCl (Cordarone -) 200 mg PO BID [facility] Last Admin: 06/01/17 10:54 Dose: 200 mg Aspirin (Asa -) 81 mg PO DAILY [facility] Last Admin: 06/01/17 10:54 Dose: 81 mg Diltiazem HCl (Cardizem Cd -) 240 mg PO DAILY [facility] Last Admin: 06/01/17 10:54 Dose: 240 mg Cefepime HCl 2 gm/ Dextrose 100 mls @ 200 mls/hr IVPB DAILY@1800 [facility] Last Admin: 05/31/17 17:42 Dose: 200 mls/hr Vancomycin HCl 1,000 mg/ (Sodium Chloride) 250 mls @ 166.667 mls/hr IVPB ONCE ONE Stop: 06/01/17 14:29 Isosorbide Mononitrate (Imdur -) 30 mg PO DAILY [facility] Last Admin: 06/01/17 10:54 Dose: 30 mg Lactobacillus Acidophilus (Bacid -) 1 tab PO DAILY [facility] Last Admin: 06/01/17 10:54 Dose: 1 tab Losartan Potassium (Cozaar -) 50 mg PO DAILY [facility] Last Admin: 06/01/17 10:54 Dose: 50 mg Metoprolol Succinate (Toprol Xl -) 100 mg PO BID [facility] Last Admin: 06/01/17 10:54 Dose: 100 mg Oxycodone HCl (Roxicodone -) 5 mg PO Q6H PRN PRN Reason: PAIN Pantoprazole Sodium (Protonix -) 40 mg PO DAILY [facility] Last Admin: 06/01/17 10:54 Dose: 40 mg Vancomycin HCl (Vancomycin Oral Solution) 250 mg PO Q6HPO [facility] Last Admin: 06/01/17 06:47 Dose: 250 mg Warfarin Sodium (Coumadin -) 3 mg PO DAILY@1800 [facility] Last Admin: 05/31/17 17:07 Dose: Not Given - Objective Vital Signs: Vital Signs Temperature 98.2 F 06/01/17 10:00 Pulse Rate 97 H 06/01/17 10:00 Respiratory Rate 20 06/01/17 10:00 Blood Pressure 120/65 06/01/17 10:00 O2 Sat by Pulse Oximetry (%) 96 05/31/17 20:26 Constitutional: Yes: Calm Eyes: Yes: WNL HENT: Yes: WNL Neck: Yes: WNL Cardiovascular: Yes: WNL, Pulse Irregular Respiratory: Yes: WNL Gastrointestinal: Yes: WNL ...Rectal Exam: Yes: Deferred Musculoskeletal: Yes: Muscle Weakness Edema: No Neurological: Yes: Alert Labs: CBC, BMP 06/01/17 06:45 06/01/17 06:45 INR, PTT INR 3.38 (0.82-1.09) H 06/01/17 06:45 Assessment/Plan Continue same same trt
--- NOTE | 2017-06-01 13:54 | PN ---
Progress Note (short form) - Note Progress Note: PULMONARY Some shortness of breath and nonproductive cough but slightly better than yesterday. No fevers recorded. Gram negative tim in blood and stool. Last Vital Signs Temp Pulse Resp BP Pulse Ox 98.2 F 97 H 20 120/65 96 06/01/17 10:00 06/01/17 10:00 06/01/17 10:00 06/01/17 10:00 05/31/17 20:26 Gen: NAD at rest Heart: irregular Lung: decreased breath sounds at the bases Abd: soft, nontender Ext: no edema CBC, BMP 06/01/17 06:45 06/01/17 06:45 Active Medications Albuterol Sulfate (Ventolin 0.083% Nebulizer Soln -) 1 amp NEB Q6H PRN PRN Reason: SHORT OF BREATH/WHEEZING Last Admin: 05/31/17 19:14 Dose: 1 amp Amiodarone HCl (Cordarone -) 200 mg PO BID [facility] Last Admin: 06/01/17 10:54 Dose: 200 mg Aspirin (Asa -) 81 mg PO DAILY [facility] Last Admin: 06/01/17 10:54 Dose: 81 mg Diltiazem HCl (Cardizem Cd -) 240 mg PO DAILY [facility] Last Admin: 06/01/17 10:54 Dose: 240 mg Cefepime HCl 2 gm/ Dextrose 100 mls @ 200 mls/hr IVPB DAILY@1800 [facility] Last Admin: 05/31/17 17:42 Dose: 200 mls/hr Vancomycin HCl 1,000 mg/ (Sodium Chloride) 250 mls @ 166.667 mls/hr IVPB ONCE ONE Stop: 06/01/17 14:29 Last Admin: 06/01/17 13:25 Dose: 166.667 mls/hr Isosorbide Mononitrate (Imdur -) 30 mg PO DAILY [facility] Last Admin: 06/01/17 10:54 Dose: 30 mg Lactobacillus Acidophilus (Bacid -) 1 tab PO DAILY [facility] Last Admin: 06/01/17 10:54 Dose: 1 tab Losartan Potassium (Cozaar -) 50 mg PO DAILY [facility] Last Admin: 06/01/17 10:54 Dose: 50 mg Metoprolol Succinate (Toprol Xl -) 100 mg PO BID [facility] Last Admin: 06/01/17 10:54 Dose: 100 mg Oxycodone HCl (Roxicodone -) 5 mg PO Q6H PRN PRN Reason: PAIN Pantoprazole Sodium (Protonix -) 40 mg PO DAILY [facility] Last Admin: 06/01/17 10:54 Dose: 40 mg Vancomycin HCl (Vancomycin Oral Solution) 250 mg PO Q6HPO [facility] Last Admin: 06/01/17 13:11 Dose: 250 mg Warfarin Sodium (Coumadin -) 3 mg PO DAILY@1800 [facility] Last Admin: 05/31/17 17:07 Dose: Not Given A/P Pneumonia r/o UTI Septic Shock Acute on Chronic Renal Failure Hyperkalemia Lactic Acidosis COPD LV Systolic Dysfunction Mitral Regurgitation Atrial Fibrillation - continue antibiotics - f/u cultures - continue BP meds - monitor urine output, creatinine - inhaled bronchodilators - O2 to keep Spo2 >90% - rate control - continue anticoagulation - monitor lytes - DVT prophylaxis
[2017-06-01] MEDS: CEFEPIME 2 GM in DEXTROSE 5%-WATER - 100 ML IVPB SCH (17:22)
[2017-06-01] MEDS: WARFARIN NA 3 MG TABLET PO SCH (17:22)
[2017-06-01] MEDS: ALBUTEROL SO4 0.083% IH SOL 2.5 MG/3 ML VIAL.NEB. NEB PRN (23:14)
[2017-06-02] MEDS: VANCOMYCIN 250 MG/5 ML ORAL SOLUTION PO SCH ×5 (01:00→23:10)
[2017-06-02 08:23] LABS: ANION GAP 7 (8-16); CALCIUM 8.2 mg/dL (8.5-10.1); CO2 27 mmol/L (21-32); CREATININE 1.6 mg/dL (0.55-1.02); GLUCOSE,RANDOM 80 mg/dL (74-106)
--- NOTE | 2017-06-02 09:39 | PN ---
Progress Note, Physician Chief Complaint: Feels better History of Present Illness: Blood culture possible MRSA - Current Medication List Current Medications: Active Medications Albuterol Sulfate (Ventolin 0.083% Nebulizer Soln -) 1 amp NEB Q6H PRN PRN Reason: SHORT OF BREATH/WHEEZING Last Admin: 06/01/17 23:14 Dose: 1 amp Amiodarone HCl (Cordarone -) 200 mg PO BID [facility] Last Admin: 06/01/17 21:59 Dose: 200 mg Aspirin (Asa -) 81 mg PO DAILY [facility] Last Admin: 06/01/17 10:54 Dose: 81 mg Diltiazem HCl (Cardizem Cd -) 240 mg PO DAILY [facility] Last Admin: 06/01/17 10:54 Dose: 240 mg Cefepime HCl 2 gm/ Dextrose 100 mls @ 200 mls/hr IVPB DAILY@1800 [facility] Last Admin: 06/01/17 17:22 Dose: 200 mls/hr Isosorbide Mononitrate (Imdur -) 30 mg PO DAILY [facility] Last Admin: 06/01/17 10:54 Dose: 30 mg Lactobacillus Acidophilus (Bacid -) 1 tab PO DAILY [facility] Last Admin: 06/01/17 10:54 Dose: 1 tab Losartan Potassium (Cozaar -) 50 mg PO DAILY [facility] Last Admin: 06/01/17 10:54 Dose: 50 mg Metoprolol Succinate (Toprol Xl -) 100 mg PO BID [facility] Last Admin: 06/01/17 21:59 Dose: 100 mg Oxycodone HCl (Roxicodone -) 5 mg PO Q6H PRN PRN Reason: PAIN Pantoprazole Sodium (Protonix -) 40 mg PO DAILY [facility] Last Admin: 06/01/17 10:54 Dose: 40 mg Vancomycin HCl (Vancomycin Oral Solution) 250 mg PO Q6HPO [facility] Last Admin: 06/02/17 06:27 Dose: 250 mg Warfarin Sodium (Coumadin -) 3 mg PO DAILY@1800 [facility] Last Admin: 06/01/17 17:22 Dose: 3 mg - Objective Vital Signs: Vital Signs Temperature 98.0 F 06/02/17 06:00 Pulse Rate 96 H 06/02/17 06:00 Respiratory Rate 20 06/02/17 06:00 Blood Pressure 107/55 06/02/17 06:00 O2 Sat by Pulse Oximetry (%) 98 06/01/17 21:00 Constitutional: Yes: No Distress Eyes: Yes: WNL HENT: Yes: WNL Neck: Yes: WNL Cardiovascular: Yes: WNL Respiratory: Yes: WNL Gastrointestinal: Yes: Normal Bowel Sounds Musculoskeletal: Yes: WNL Edema: No Labs: CBC, BMP 06/01/17 06:45 06/02/17 05:40 INR, PTT INR 3.38 (0.82-1.09) H 06/01/17 06:45 Assessment/Plan Reduce cozaar
[2017-06-02] MEDS: LOSARTAN POTASSIUM 50 MG TABLET (FP) PO SCH (10:20)
[2017-06-02] MEDS: ISOSORBIDE MONONITRATE 30 MG TAB.SR.24H (FP) PO SCH (10:29)
[2017-06-02] MEDS: AMIODARONE HCL 200 MG TABLET (FP) PO SCH ×2 (10:29→22:33)
[2017-06-02] MEDS: PANTOPRAZOLE 40 MG TABLET (FP) PO SCH (10:29)
[2017-06-02] MEDS: METOPROLOL SUCCINATE 100 MG TAB.SR.24H (FP) PO SCH ×2 (10:29→22:31)
[2017-06-02] MEDS: LACTOBACILLUS ACIDOPHILUS 1 EACH TAB (FP) PO SCH (10:29)
[2017-06-02] MEDS ORDERED: PT OWN MED DRAWER 7, Y5N ONE ×2 (11:53→15:35)
[2017-06-02] MEDS: ASPIRIN 81 MG CHEWABLE TABLETS PO SCH (11:54)
--- NOTE | 2017-06-02 13:45 | PN ---
Progress Note, Physician History of Present Illness: pulmonary lert,c/o cough,less dyspneic,+ diarrhea - Current Medication List Current Medications: Active Medications Albuterol Sulfate (Ventolin 0.083% Nebulizer Soln -) 1 amp NEB Q6H PRN PRN Reason: SHORT OF BREATH/WHEEZING Last Admin: 06/01/17 23:14 Dose: 1 amp Amiodarone HCl (Cordarone -) 200 mg PO BID [facility] Last Admin: 06/02/17 10:29 Dose: 200 mg Aspirin (Asa -) 81 mg PO DAILY [facility] Last Admin: 06/02/17 11:54 Dose: 81 mg Diltiazem HCl (Cardizem Cd -) 240 mg PO DAILY [facility] Last Admin: 06/02/17 10:29 Dose: 240 mg Cefepime HCl 2 gm/ Dextrose 100 mls @ 200 mls/hr IVPB DAILY@1800 [facility] Last Admin: 06/01/17 17:22 Dose: 200 mls/hr Vancomycin HCl 1,000 mg/ (Dextrose) 250 mls @ 250 mls/hr IVPB DAILY [facility] PRN Reason: Protocol Isosorbide Mononitrate (Imdur -) 30 mg PO DAILY [facility] Last Admin: 06/02/17 10:29 Dose: 30 mg Lactobacillus Acidophilus (Bacid -) 1 tab PO DAILY [facility] Last Admin: 06/02/17 10:29 Dose: 1 tab Losartan Potassium (Cozaar -) 50 mg PO DAILY [facility] Last Admin: 06/02/17 10:20 Dose: Not Given Metoprolol Succinate (Toprol Xl -) 100 mg PO BID [facility] Last Admin: 06/02/17 10:29 Dose: 100 mg Oxycodone HCl (Roxicodone -) 5 mg PO Q6H PRN PRN Reason: PAIN Pantoprazole Sodium (Protonix -) 40 mg PO DAILY [facility] Last Admin: 06/02/17 10:29 Dose: 40 mg Vancomycin HCl (Vancomycin Oral Solution) 250 mg PO Q6HPO [facility] Last Admin: 06/02/17 11:54 Dose: 250 mg Warfarin Sodium (Coumadin -) 3 mg PO DAILY@1800 [facility] Last Admin: 06/01/17 17:22 Dose: 3 mg - Objective Vital Signs: Vital Signs Temperature 98.0 F 06/02/17 10:00 Pulse Rate 98 H 06/02/17 10:00 Respiratory Rate 20 06/02/17 10:00 Blood Pressure 100/65 06/02/17 10:00 O2 Sat by Pulse Oximetry (%) 94 L 06/02/17 09:00 Constitutional: Yes: Calm, Obese Eyes: Yes: WNL HENT: Yes: WNL Neck: Yes: WNL Cardiovascular: Yes: Pulse Irregular, S1, S2 Respiratory: Yes: Diminished Gastrointestinal: Yes: Normal Bowel Sounds, Soft Extremities: Yes: WNL Edema: No Labs: CBC, BMP 06/01/17 06:45 06/02/17 05:40 INR, PTT INR 3.38 (0.82-1.09) H 06/01/17 06:45 Assessment/Plan A/P Pneumonia r/o UTI Septic Shock Acute on Chronic Renal Failure Hyperkalemia Lactic Acidosis COPD LV Systolic Dysfunction Mitral Regurgitation Atrial Fibrillation - continue antibiotics - continue BP meds - monitor urine output, creatinine - inhaled bronchodilators - O2 to keep Spo2 >90% - rate control - continue anticoagulation - monitor lytes - DVT prophylaxis - chest ct DR GOMEZ
--- NOTE | 2017-06-02 15:28 | PN ---
Progress Note, Physician History of Present Illness: Pt is alert, afebrile. States she has some cough with sputum production. Had 2 unformed BMs today but no abd cramping/discomfort. States she has low appetite. - Current Medication List Current Medications: Active Medications Albuterol Sulfate (Ventolin 0.083% Nebulizer Soln -) 1 amp NEB Q6H PRN PRN Reason: SHORT OF BREATH/WHEEZING Last Admin: 06/01/17 23:14 Dose: 1 amp Amiodarone HCl (Cordarone -) 200 mg PO BID [facility] Last Admin: 06/02/17 10:29 Dose: 200 mg Aspirin (Asa -) 81 mg PO DAILY [facility] Last Admin: 06/02/17 11:54 Dose: 81 mg Diltiazem HCl (Cardizem Cd -) 240 mg PO DAILY [facility] Last Admin: 06/02/17 10:29 Dose: 240 mg Cefepime HCl 2 gm/ Dextrose 100 mls @ 200 mls/hr IVPB DAILY@1800 [facility] Last Admin: 06/01/17 17:22 Dose: 200 mls/hr Vancomycin HCl 1,000 mg/ (Dextrose) 250 mls @ 166.667 mls/hr IVPB DAILY@1500 [facility] PRN Reason: Protocol Isosorbide Mononitrate (Imdur -) 30 mg PO DAILY [facility] Last Admin: 06/02/17 10:29 Dose: 30 mg Lactobacillus Acidophilus (Bacid -) 1 tab PO DAILY [facility] Last Admin: 06/02/17 10:29 Dose: 1 tab Losartan Potassium (Cozaar -) 50 mg PO DAILY [facility] Last Admin: 06/02/17 10:20 Dose: Not Given Metoprolol Succinate (Toprol Xl -) 100 mg PO BID [facility] Last Admin: 06/02/17 10:29 Dose: 100 mg Oxycodone HCl (Roxicodone -) 5 mg PO Q6H PRN PRN Reason: PAIN Pantoprazole Sodium (Protonix -) 40 mg PO DAILY [facility] Last Admin: 06/02/17 10:29 Dose: 40 mg Vancomycin HCl (Vancomycin Oral Solution) 250 mg PO Q6HPO [facility] Last Admin: 06/02/17 11:54 Dose: 250 mg Warfarin Sodium (Coumadin -) 3 mg PO DAILY@1800 [facility] Last Admin: 06/01/17 17:22 Dose: 3 mg - Objective Vital Signs: Vital Signs Temperature 98.0 F 06/02/17 10:00 Pulse Rate 98 H 06/02/17 10:00 Respiratory Rate 20 06/02/17 10:00 Blood Pressure 100/65 06/02/17 10:00 O2 Sat by Pulse Oximetry (%) 94 L 06/02/17 09:00 Constitutional: Yes: No Distress, Calm Neck: Yes: Supple Cardiovascular: Yes: Regular Rate and Rhythm Respiratory: Yes: Diminished (b/l) Gastrointestinal: Yes: Normal Bowel Sounds, Soft, Abdomen, Obese Extremities: Yes: WNL Neurological: Yes: Alert, Oriented Labs: CBC, BMP 06/01/17 06:45 06/02/17 05:40 INR, PTT INR 3.38 (0.82-1.09) H 06/01/17 06:45 Microbiology 05/30/17 13:00 Blood - Central Line Blood Culture - Preliminary NO GROWTH OBTAINED AFTER 72 HOURS, INCUBATION TO CONTINUE FOR 2 DAYS. 05/30/17 17:16 Stool Salmonella/Shigella Culture - Final 05/30/17 17:16 Stool Campylobacter Culture - Final NO GROWTH OF CAMPYLOBACTER SPECIES OBTAINED 05/30/17 17:16 Stool Yersinia Culture - Final NO GROWTH OF YERSINIA SPECIES OBTAINED 05/30/17 17:16 Stool Vibrio Culture - Final NO GROWTH OF VIBRIO SPECIES OBTAINED 05/30/17 17:16 Stool Escherichia coli 0157 Culture - Final NO GROWTH OF E COLI 0157 OBTAINED 05/30/17 16:00 Blood - Central Line Blood Culture - Preliminary Presumptive Mrsa (Pbp2a Pos) 05/29/17 00:32 Blood - Peripheral Venous Blood Culture - Preliminary NO GROWTH OBTAINED AFTER 96 HOURS, INCUBATION TO CONTINUE FOR 1 DAYS. 05/29/17 00:32 Blood - Peripheral Venous Blood Culture - Preliminary NO GROWTH OBTAINED AFTER 96 HOURS, INCUBATION TO CONTINUE FOR 1 DAYS. 05/30/17 17:16 Stool Clostridium difficile Antigen (ROSE) - Final 05/30/17 17:16 Stool Clostridium difficile Toxin Assay - Final 05/29/17 01:40 Urine - Urine - Catheterized Urine Culture - Final NO GROWTH OBTAINED Problem List - Problems (1) Atrial fibrillation with RVR Code(s): I48.91 - UNSPECIFIED ATRIAL FIBRILLATION (2) C. difficile diarrhea Code(s): A04.72 - ENTEROCOLITIS D/T CLOSTRIDIUM DIFFICILE, NOT SPCF RECUR (3) CHF (NYHA class II, ACC/AHA stage C) Code(s): I50.9 - HEART FAILURE, UNSPECIFIED (4) CKD stage 4 secondary to hypertension Code(s): I12.9 - HYPERTENSIVE CHRONIC KIDNEY DISEASE W STG 1-4/UNSP CHR KDNY; N18.4 - CHRONIC KIDNEY DISEASE, STAGE 4 (SEVERE) (5) Leukocytosis Code(s): D72.829 - ELEVATED WHITE BLOOD CELL COUNT, UNSPECIFIED (6) MRSA bacteremia Code(s): R78.81 - BACTEREMIA Assessment/Plan 86 y.o. female with history of CHF, COPD, Afib, CKD recently treated for PNA and C. diff (toxin a/b neg) with clinical improvement now re-admitted with hypotension, lactic acidosis, leukocytosis with shortness of breath. MRSA Bacteremia / Possible PNA LLL infiltrate Diarrhea- stool studies negative, completing 2 wk course of vancomycin po - repeat blood culture- Vancomycin IV started, monitor renal function closely - suggest cont. Cefepime for now appears to have improved
[2017-06-02] MEDS: VANCOMYCIN 1,000 MG in DEXTROSE 5%-WATER - 250 ML IVPB SCH (16:05)
[2017-06-02] MEDS: CEFEPIME 2 GM in DEXTROSE 5%-WATER - 100 ML IVPB SCH (17:33)
[2017-06-02] MEDS: WARFARIN NA 3 MG TABLET PO SCH (17:59)
--- NOTE | 2017-06-02 21:26 | CONS ---
EXTENDED NOTE DATE OF CONSULTATION: 06/02/2017 HISTORY OF PRESENT ILLNESS: The patient is well known to me, is an 86-year-old female who was recently discharged to a [facility] facility. Patient recently had C. difficile and has longstanding history of COPD, bronchial asthma, coronary artery disease, angina pectoris, recent C. difficile, and history of paroxysmal atrial fibrillation requiring DC cardioversion and recurrence of atrial flutter with 2:1 AV conduction. Patient was asymptomatic and was hemodynamically stable prior to discharge. While at the [facility] facility, the daughter noted that she was complaining of fatigue and lethargy, and prior to admission, complained of mild shortness of breath and was found to be hypotensive and was transferred to [facility] Emergency Room on May 28, 2017. On questioning, she denies having chest pain or discomfort. She has no further dyspnea, paroxysmal nocturnal dyspnea, or orthopnea. There is no history of palpitations, lightheadedness, dizziness, presyncope, or syncope reported. CURRENT MEDICATIONS: 1. Losartan 50 mg p.o. daily. 2. Amiodarone 200 mg p.o. b.i.d. 3. Cefepime 2 g IV piggyback daily. 4. Vancomycin 250 mg p.o. q.6 hours. 5. Vancomycin 1000 mg in dextrose IV daily. 6. Warfarin 3 mg p.o. daily. 7. Bacid 1 p.o. daily. 8. Albuterol via nebulizer 1 ampule q.6 hours p.r.n. 9. Metoprolol tartrate 100 mg p.o. b.i.d. 10. Diltiazem 240 mg p.o. daily. 11. Isosorbide mononitrate 20 mg p.o. daily. 12. Aspirin 81 mg p.o. daily. 13. Oxycodone 5 mg p.o. q.6 hours p.r.n. 14. 40 mg p.o. daily. During hospitalization, she was noted to have atrial flutter with varying but slow ventricular response. PHYSICAL EXAMINATION: General: An 86-year-old, obese female was in no acute distress. No pallor, cyanosis, clubbing, or jaundice. Vital Signs: Blood pressure 105/59 mmHg. Pulse 52 beats per minute and irregularly irregular. Temperature 98.4 degrees Fahrenheit. Weight 238 pounds. Neck: Supple. No JVD. Carotids were 2+. Upstrokes were normal. No bruits were appreciated, and no thyromegaly was present. Heart: PMI was in the 5th intercostal space. Heart sounds were distant. S1 was variable. S2 was normal. No murmur or gallops were heard. Lungs: Clear on auscultation. Abdomen: Soft, obese and nontender. No hepatosplenomegaly or palpable masses were felt. Bowel sounds are present. No bruits were heard. Extremities: No calf tenderness or dependent edema. Dorsalis pedis pulses were 1+. Posterior tibial pulses were not palpable. LABORATORY DATA: June 01, 2017 CBC: WBC count was 6100. Hemoglobin was 8 g/dL. Hematocrit was 24.5%. Platelet count was 202,000. Neutrophils were 47.5%. Lymphocytes were 27.2%. Monocytes were 9.2%. Eosinophils were 15%. Basophils were 1.1%. On admission, WBC count was 21,900. Hemoglobin was 8.5 g/dL. Platelet count was 279,000. There were 75% neutrophils, 10% bands, 6% lymphocytes, 5% eosinophils. CHEMISTRY: June 02, 2017, sodium 147, potassium 4.2, chloride 113, CO2 of 27 mmol/L, BUN 22, creatinine 1.6 mg/dL. On admission, sodium was 142, potassium was 5.8, chloride 109, CO2 of 22 mmol/L, BUN was 41, creatinine was 3.6 mg/dL. Lactic acid on May 29, 2017, was 3.5, and followup lactic acid on the same day was 1.6. BNP was 34,880.98. X-ray chest on May 28, 2017: There are progressive congestive changes with possible left infiltrate, large heart. Monitor rhythm strip reveals atrial flutter with varying AV conduction and rates x38 beats per minute. IMPRESSION: 1. Persistent aflutter with varying and slow ventricular response. 2. Coronary artery disease, angina pectoris currently stable. 3. Chronic obstructive pulmonary disease. 4. History of bronchial asthma. 5. Congestive heart failure, currently appears to be compensated. 6. Exogenous obesity. 7. History of Clostridium difficile. 8. Anemia. 9. Suspect ongoing infectious process. 10. History of chronic urinary tract infection. RECOMMENDATIONS: 1. Amiodarone level. 2. Reduce dose of amiodarone to 200 mg p.o. daily. 3. Reduce the dose of metoprolol succinate to 50 mg p.o. daily and further if necessary. 4. Evaluation and correction of anemia. 5. T3, T4, TSH. 6. Further suggestions will depend upon the response to change in therapy. PROGNOSIS: Guarded. Thank you for your referrals. Yours sincerely, ANAMARIA BOLAÑOS M.D. [id number]
[2017-06-02] MEDS: METOPROLOL SUCCINATE 50 MG TAB.SR.24H (FP) PO SCH (22:42)
[2017-06-03] MEDS: VANCOMYCIN 250 MG/5 ML ORAL SOLUTION PO SCH ×4 (06:41→23:45)
[2017-06-03 07:42] LABS: MCH 31.9 pg (25.7-33.7); MCHC 32.5 g/dl (32.0-36.0); MEAN CELL VOLUME 98.1 fl (80-96); MEAN PLT VOLUME 9.1 fl (7.5-11.1); PLATELET COUNT 237 K/MM3 (134-434); RDW 24.4 % (11.6-15.6); WHITE BLOOD COUNT 7.8 K/mm3 (4.0-10.0)
[2017-06-03 07:55] LABS: INR 2.91 (0.82-1.09); PROTHROMBIN TIME (PATIENT) 32.9 SEC (9.98-11.88)
[2017-06-03 08:32] LABS: FREE T4 1.61 ng/dl (0.76-1.46); THYROID STIMULATING HORMONE 1.42 uIU/ml (0.358-3.74)
[2017-06-03] MEDS: PANTOPRAZOLE 40 MG TABLET (FP) PO SCH (09:44)
[2017-06-03] MEDS: AMIODARONE HCL 200 MG TABLET (FP) PO SCH (09:44)
[2017-06-03] MEDS: ASPIRIN 81 MG CHEWABLE TABLETS PO SCH (09:44)
[2017-06-03] MEDS: LACTOBACILLUS ACIDOPHILUS 1 EACH TAB (FP) PO SCH (09:44)
[2017-06-03] MEDS: METOPROLOL SUCCINATE 50 MG TAB.SR.24H (FP) PO SCH (09:46)
[2017-06-03] MEDS: ISOSORBIDE MONONITRATE 30 MG TAB.SR.24H (FP) PO SCH (09:46)
[2017-06-03] MEDS: LOSARTAN POTASSIUM 50 MG TABLET (FP) PO SCH (09:47)
--- NOTE | 2017-06-03 12:56 | PN ---
Progress Note, Physician History of Present Illness: pulmonary alert,feeling better,oob-chair,-resp distress,+diarrhea - Current Medication List Current Medications: Active Medications Albuterol Sulfate (Ventolin 0.083% Nebulizer Soln -) 1 amp NEB Q6H PRN PRN Reason: SHORT OF BREATH/WHEEZING Last Admin: 06/01/17 23:14 Dose: 1 amp Amiodarone HCl (Cordarone -) 200 mg PO DAILY [facility] Last Admin: 06/03/17 09:44 Dose: 200 mg Aspirin (Asa -) 81 mg PO DAILY [facility] Last Admin: 06/03/17 09:44 Dose: 81 mg Diltiazem HCl (Cardizem Cd -) 240 mg PO DAILY [facility] Last Admin: 06/03/17 09:44 Dose: 240 mg Cefepime HCl 2 gm/ Dextrose 100 mls @ 200 mls/hr IVPB DAILY@1800 [facility] Last Admin: 06/02/17 17:33 Dose: 200 mls/hr Vancomycin HCl 1,000 mg/ (Dextrose) 250 mls @ 166.667 mls/hr IVPB DAILY@1500 [facility] PRN Reason: Protocol Last Admin: 06/02/17 16:05 Dose: 166.667 mls/hr Isosorbide Mononitrate (Imdur -) 30 mg PO DAILY [facility] Last Admin: 06/03/17 09:46 Dose: 30 mg Lactobacillus Acidophilus (Bacid -) 1 tab PO DAILY [facility] Last Admin: 06/03/17 09:44 Dose: 1 tab Losartan Potassium (Cozaar -) 50 mg PO DAILY [facility] Last Admin: 06/03/17 09:47 Dose: Not Given Metoprolol Succinate (Toprol Xl -) 50 mg PO BID [facility] Last Admin: 06/03/17 09:46 Dose: 50 mg Oxycodone HCl (Roxicodone -) 5 mg PO Q6H PRN PRN Reason: PAIN Pantoprazole Sodium (Protonix -) 40 mg PO DAILY [facility] Last Admin: 06/03/17 09:44 Dose: 40 mg Vancomycin HCl (Vancomycin Oral Solution) 250 mg PO Q6HPO [facility] Last Admin: 06/03/17 06:41 Dose: 250 mg Warfarin Sodium (Coumadin -) 3 mg PO DAILY@1800 [facility] Last Admin: 06/02/17 17:59 Dose: Not Given - Objective Vital Signs: Vital Signs Temperature 98.2 F 06/03/17 06:00 Pulse Rate 94 H 06/03/17 06:00 Respiratory Rate 20 06/03/17 06:00 Blood Pressure 98/59 06/03/17 06:00 O2 Sat by Pulse Oximetry (%) 96 06/02/17 21:00 Constitutional: Yes: Calm, Obese Eyes: Yes: WNL HENT: Yes: WNL Neck: Yes: WNL Cardiovascular: Yes: Pulse Irregular, S1, S2 Respiratory: Yes: Rales (few bibasilar rales) Gastrointestinal: Yes: Normal Bowel Sounds, Soft Extremities: Yes: WNL Edema: Yes Labs: CBC, BMP 06/03/17 06:30 06/02/17 05:40 INR, PTT INR 2.91 (0.82-1.09) H 06/03/17 06:30 Problem List - Problems (1) C. difficile colitis Code(s): A04.72 - ENTEROCOLITIS D/T CLOSTRIDIUM DIFFICILE, NOT SPCF RECUR (2) Atrial fibrillation with RVR Code(s): I48.91 - UNSPECIFIED ATRIAL FIBRILLATION (3) C. difficile diarrhea Code(s): A04.72 - ENTEROCOLITIS D/T CLOSTRIDIUM DIFFICILE, NOT SPCF RECUR (4) CKD stage G3b/A3, GFR 30-44 and albumin creatinine ratio >300 mg/g Code(s): N18.3 - CHRONIC KIDNEY DISEASE, STAGE 3 (MODERATE) (5) COPD mixed type Code(s): J44.9 - CHRONIC OBSTRUCTIVE PULMONARY DISEASE, UNSPECIFIED (6) Healthcare-associated pneumonia Code(s): J18.9 - PNEUMONIA, UNSPECIFIED ORGANISM Assessment/Plan A/P Pneumonia r/o UTI Septic Shock Acute on Chronic Renal Failure Hyperkalemia Lactic Acidosis COPD LV Systolic Dysfunction Mitral Regurgitation Atrial Fibrillation - antibiotics as per ID - continue BP meds - monitor urine output, creatinine - inhaled bronchodilators - O2 to keep Spo2 >90% - rate control - continue anticoagulation - monitor lytes - DVT prophylaxis DR GOMEZ
[2017-06-03] MEDS: VANCOMYCIN 1,000 MG in DEXTROSE 5%-WATER - 250 ML IVPB SCH (14:06)
--- NOTE | 2017-06-03 14:34 | EKG ---
Test Reason : Blood Pressure : / mmHG Vent. Rate : 078 BPM Atrial Rate : 098 BPM P-R Int : 000 ms QRS Dur : 104 ms QT Int : 376 ms P-R-T Axes : 000 -33 065 degrees QTc Int : 428 ms Atrial tachycardia with variable AV block LEFT AXIS DEVIATION NONSPECIFIC T WAVE ABNORMALITY Confirmed by JOSEFINA MARTINEZ MD ([id number]) on 06/03/2017 2:34:30 PM Referred By: Eboni BARTHOLOMEW Confirmed By:JOSEFINA MARTINEZ MD
[2017-06-03] MEDS ORDERED: LOPERAMIDE HCL 2 MG CAPSULE PO PRN (15:35)
--- NOTE | 2017-06-03 15:36 | PN ---
Progress Note, Physician History of Present Illness: Pt is alert, without acute distress. Remains afebrile, without new complaints. Still c/o diarrhea 2 Loose BMs today but without abd discomfort. - Current Medication List Current Medications: Active Medications Albuterol Sulfate (Ventolin 0.083% Nebulizer Soln -) 1 amp NEB Q6H PRN PRN Reason: SHORT OF BREATH/WHEEZING Last Admin: 06/01/17 23:14 Dose: 1 amp Amiodarone HCl (Cordarone -) 200 mg PO DAILY [facility] Last Admin: 06/03/17 09:44 Dose: 200 mg Aspirin (Asa -) 81 mg PO DAILY [facility] Last Admin: 06/03/17 09:44 Dose: 81 mg Diltiazem HCl (Cardizem Cd -) 240 mg PO DAILY [facility] Last Admin: 06/03/17 09:44 Dose: 240 mg Cefepime HCl 2 gm/ Dextrose 100 mls @ 200 mls/hr IVPB DAILY@1800 [facility] Last Admin: 06/02/17 17:33 Dose: 200 mls/hr Vancomycin HCl 1,000 mg/ (Dextrose) 250 mls @ 166.667 mls/hr IVPB DAILY@1500 [facility] PRN Reason: Protocol Last Admin: 06/03/17 14:06 Dose: 166.667 mls/hr Isosorbide Mononitrate (Imdur -) 30 mg PO DAILY [facility] Last Admin: 06/03/17 09:46 Dose: 30 mg Lactobacillus Acidophilus (Bacid -) 1 tab PO DAILY [facility] Last Admin: 06/03/17 09:44 Dose: 1 tab Losartan Potassium (Cozaar -) 50 mg PO DAILY [facility] Last Admin: 06/03/17 09:47 Dose: Not Given Metoprolol Succinate (Toprol Xl -) 50 mg PO BID [facility] Last Admin: 06/03/17 09:46 Dose: 50 mg Oxycodone HCl (Roxicodone -) 5 mg PO Q6H PRN PRN Reason: PAIN Pantoprazole Sodium (Protonix -) 40 mg PO DAILY [facility] Last Admin: 06/03/17 09:44 Dose: 40 mg Vancomycin HCl (Vancomycin Oral Solution) 250 mg PO Q6HPO [facility] Last Admin: 06/03/17 13:05 Dose: 250 mg Warfarin Sodium (Coumadin -) 3 mg PO DAILY@1800 [facility] Last Admin: 06/02/17 17:59 Dose: Not Given - Objective Vital Signs: Vital Signs Temperature 98.2 F 06/03/17 06:00 Pulse Rate 94 H 06/03/17 06:00 Respiratory Rate 20 06/03/17 06:00 Blood Pressure 98/59 06/03/17 06:00 O2 Sat by Pulse Oximetry (%) 96 06/02/17 21:00 Constitutional: Yes: No Distress, Calm Cardiovascular: Yes: Pulse Irregular Respiratory: Yes: Regular Gastrointestinal: Yes: Normal Bowel Sounds, Soft Extremities: Yes: WNL Integumentary: Yes: WNL Neurological: Yes: Alert, Oriented Labs: CBC, BMP 06/03/17 06:30 06/02/17 05:40 INR, PTT INR 2.91 (0.82-1.09) H 06/03/17 06:30 Microbiology 05/30/17 13:00 Blood - Central Line Blood Culture - Preliminary NO GROWTH OBTAINED AFTER 96 HOURS, INCUBATION TO CONTINUE FOR 1 DAYS. 05/30/17 16:00 Blood - Central Line Blood Culture - Final Staphylococcus Haemolyticus 05/29/17 00:32 Blood - Peripheral Venous Blood Culture - Final NO GROWTH AFTER 5 DAYS INCUBATION 05/29/17 00:32 Blood - Peripheral Venous Blood Culture - Final NO GROWTH AFTER 5 DAYS INCUBATION 05/30/17 17:16 Stool Salmonella/Shigella Culture - Final 05/30/17 17:16 Stool Campylobacter Culture - Final NO GROWTH OF CAMPYLOBACTER SPECIES OBTAINED 05/30/17 17:16 Stool Yersinia Culture - Final NO GROWTH OF YERSINIA SPECIES OBTAINED 05/30/17 17:16 Stool Vibrio Culture - Final NO GROWTH OF VIBRIO SPECIES OBTAINED 05/30/17 17:16 Stool Escherichia coli 0157 Culture - Final NO GROWTH OF E COLI 0157 OBTAINED 05/30/17 17:16 Stool Clostridium difficile Antigen (ROSE) - Final 05/30/17 17:16 Stool Clostridium difficile Toxin Assay - Final 05/29/17 01:40 Urine - Urine - Catheterized Urine Culture - Final NO GROWTH OBTAINED Problem List - Problems (1) Atrial fibrillation with RVR Code(s): I48.91 - UNSPECIFIED ATRIAL FIBRILLATION (2) C. difficile diarrhea Code(s): A04.72 - ENTEROCOLITIS D/T CLOSTRIDIUM DIFFICILE, NOT SPCF RECUR (3) CHF (NYHA class II, ACC/AHA stage C) Code(s): I50.9 - HEART FAILURE, UNSPECIFIED (4) CKD stage 4 secondary to hypertension Code(s): I12.9 - HYPERTENSIVE CHRONIC KIDNEY DISEASE W STG 1-4/UNSP CHR KDNY; N18.4 - CHRONIC KIDNEY DISEASE, STAGE 4 (SEVERE) (5) Leukocytosis Code(s): D72.829 - ELEVATED WHITE BLOOD CELL COUNT, UNSPECIFIED Assessment/Plan 86 y.o. female with history of CHF, COPD, s/p b/l ISAURA, Afib, CKD recently treated for PNA and C. diff (toxin a/b neg) with clinical improvement now re- admitted with hypotension, lactic acidosis, leukocytosis with shortness of breath. Possible PNA Diarrhea- stool studies negative, completing 2 wk course of vancomycin po S. haemolyticus in Blood cultures - repeat blood cultures ordered - continue Vancomycin IV, monitor renal function - consider 2D Echo - suggest cont. Cefepime for now - leukocytosis resolved - start imodium, if diarrhea persists suggest GI evaluation
--- NOTE | 2017-06-03 15:56 | PN ---
Progress Note, Physician Chief Complaint: Feels better History of Present Illness: Blood culture grew staph hemoliticus On Vanco - Current Medication List Current Medications: Active Medications Albuterol Sulfate (Ventolin 0.083% Nebulizer Soln -) 1 amp NEB Q6H PRN PRN Reason: SHORT OF BREATH/WHEEZING Last Admin: 06/01/17 23:14 Dose: 1 amp Amiodarone HCl (Cordarone -) 200 mg PO DAILY [facility] Last Admin: 06/03/17 09:44 Dose: 200 mg Aspirin (Asa -) 81 mg PO DAILY [facility] Last Admin: 06/03/17 09:44 Dose: 81 mg Diltiazem HCl (Cardizem Cd -) 240 mg PO DAILY [facility] Last Admin: 06/03/17 09:44 Dose: 240 mg Cefepime HCl 2 gm/ Dextrose 100 mls @ 200 mls/hr IVPB DAILY@1800 [facility] Last Admin: 06/02/17 17:33 Dose: 200 mls/hr Vancomycin HCl 1,000 mg/ (Dextrose) 250 mls @ 166.667 mls/hr IVPB DAILY@1500 [facility] PRN Reason: Protocol Last Admin: 06/03/17 14:06 Dose: 166.667 mls/hr Isosorbide Mononitrate (Imdur -) 30 mg PO DAILY [facility] Last Admin: 06/03/17 09:46 Dose: 30 mg Lactobacillus Acidophilus (Bacid -) 1 tab PO DAILY [facility] Last Admin: 06/03/17 09:44 Dose: 1 tab Loperamide HCl (Imodium -) 4 mg PO Q6H PRN PRN Reason: DIARRHEA Losartan Potassium (Cozaar -) 50 mg PO DAILY [facility] Last Admin: 06/03/17 09:47 Dose: Not Given Metoprolol Succinate (Toprol Xl -) 50 mg PO BID [facility] Last Admin: 06/03/17 09:46 Dose: 50 mg Pantoprazole Sodium (Protonix -) 40 mg PO DAILY [facility] Last Admin: 06/03/17 09:44 Dose: 40 mg Vancomycin HCl (Vancomycin Oral Solution) 250 mg PO Q6HPO [facility] Last Admin: 06/03/17 13:05 Dose: 250 mg Warfarin Sodium (Coumadin -) 3 mg PO DAILY@1800 [facility] Last Admin: 06/02/17 17:59 Dose: Not Given - Objective Vital Signs: Vital Signs Temperature 98.2 F 12/12/17 06:00 Pulse Rate 94 H 06/03/17 06:00 Respiratory Rate 20 06/03/17 06:00 Blood Pressure 98/59 06/03/17 06:00 O2 Sat by Pulse Oximetry (%) 96 06/02/17 21:00 Constitutional: Yes: No Distress Eyes: Yes: WNL HENT: Yes: WNL Neck: Yes: WNL Cardiovascular: Yes: Regular Rate and Rhythm Respiratory: Yes: WNL Gastrointestinal: Yes: WNL ...Rectal Exam: Yes: Deferred Genitourinary: Yes: WNL Labs: CBC, BMP 06/03/17 06:30 06/02/17 05:40 INR, PTT INR 2.91 (0.82-1.09) H 06/03/17 06:30 Assessment/Plan Reduce cozaar
[2017-06-03] MEDS ORDERED: PT OWN MED DRAWER 7, Y5N ONE (17:28)
[2017-06-03] MEDS: CEFEPIME 2 GM in DEXTROSE 5%-WATER - 100 ML IVPB SCH (17:44)
[2017-06-03] MEDS: WARFARIN NA 3 MG TABLET PO SCH (17:44)
--- NOTE | 2017-06-03 22:10 | PN ---
Progress Note (short form) - Note Progress Note: 86 year old female in atrial flutter with slow to moderate ventricular response , back in isolation for +ve blood culture.Known case of CAD, angina pectoris, HTN, COPD. resting comfortably, no SOB or chest discomfort. Active Medications Albuterol Sulfate (Ventolin 0.083% Nebulizer Soln -) 1 amp NEB Q6H PRN PRN Reason: SHORT OF BREATH/WHEEZING Last Admin: 06/01/17 23:14 Dose: 1 amp Amiodarone HCl (Cordarone -) 200 mg PO DAILY [facility] Last Admin: 06/03/17 09:44 Dose: 200 mg Aspirin (Asa -) 81 mg PO DAILY [facility] Last Admin: 06/03/17 09:44 Dose: 81 mg Diltiazem HCl (Cardizem Cd -) 240 mg PO DAILY [facility] Last Admin: 06/03/17 09:44 Dose: 240 mg Cefepime HCl 2 gm/ Dextrose 100 mls @ 200 mls/hr IVPB DAILY@1800 [facility] Last Admin: 06/03/17 17:44 Dose: 200 mls/hr Vancomycin HCl 1,000 mg/ (Dextrose) 250 mls @ 166.667 mls/hr IVPB DAILY@1500 [facility] PRN Reason: Protocol Last Admin: 06/03/17 14:06 Dose: 166.667 mls/hr Isosorbide Mononitrate (Imdur -) 30 mg PO DAILY [facility] Last Admin: 06/03/17 09:46 Dose: 30 mg Lactobacillus Acidophilus (Bacid -) 1 tab PO DAILY [facility] Last Admin: 06/03/17 09:44 Dose: 1 tab Loperamide HCl (Imodium -) 4 mg PO Q6H PRN PRN Reason: DIARRHEA Last Admin: 06/03/17 17:44 Dose: 4 mg Metoprolol Succinate (Toprol Xl -) 50 mg PO BID [facility] Last Admin: 06/03/17 09:46 Dose: 50 mg Pantoprazole Sodium (Protonix -) 40 mg PO DAILY [facility] Last Admin: 06/03/17 09:44 Dose: 40 mg Vancomycin HCl (Vancomycin Oral Solution) 250 mg PO Q6HPO [facility] Last Admin: 06/03/17 17:45 Dose: 250 mg Warfarin Sodium (Coumadin -) 3 mg PO DAILY@1800 [facility] Last Admin: 06/03/17 17:44 Dose: 3 mg O: Patient was in no distress, mild pallor, no cyanosis. Last Vital Signs Temp Pulse Resp BP Pulse Ox 98.0 F 88, irregular. 18 88/45 95 06/03/17 17:00 06/03/17 17:00 06/03/17 17:00 06/03/17 17:00 06/03/17 09:00 NECK; Supple, no JVD, carotids equal, no bruits. HEART: PMI in the 5th ICS, no heaves or thrills. Distant heart sounds, no murmur or gallops heard. LUNGS: Clear. ABDOMEN: Soft, nontender, no organomegaly or masses. EXTREMITIES: No calf tenderness or dependent edema. CBC, BMP 06/03/17 06:30 06/02/17 05:40 IMPRESSION: 1. Persistent Atrial flutter with slow to moderate ventricular response. 2. CAD/angina pectoris. 3. COPD. 4. Hypertension. RECOMMENDATIONS: 1. Continue current therapy. 2. Bed side PT. 3. OOB in chair.
[2017-06-04] MEDS: VANCOMYCIN 250 MG/5 ML ORAL SOLUTION PO SCH ×2 (05:55→12:30)
--- NOTE | 2017-06-04 09:24 | PN ---
Progress Note, Physician Chief Complaint: C/O diarrhea History of Present Illness: Sepsis ,pneumonia ,+ blood culture Improving - Current Medication List Current Medications: Active Medications Albuterol Sulfate (Ventolin 0.083% Nebulizer Soln -) 1 amp NEB Q6H PRN PRN Reason: SHORT OF BREATH/WHEEZING Last Admin: 06/01/17 23:14 Dose: 1 amp Amiodarone HCl (Cordarone -) 200 mg PO DAILY [facility] Last Admin: 06/03/17 09:44 Dose: 200 mg Aspirin (Asa -) 81 mg PO DAILY [facility] Last Admin: 06/03/17 09:44 Dose: 81 mg Diltiazem HCl (Cardizem Cd -) 240 mg PO DAILY [facility] Last Admin: 06/03/17 09:44 Dose: 240 mg Cefepime HCl 2 gm/ Dextrose 100 mls @ 200 mls/hr IVPB DAILY@1800 [facility] Last Admin: 06/03/17 17:44 Dose: 200 mls/hr Vancomycin HCl 1,000 mg/ (Dextrose) 250 mls @ 166.667 mls/hr IVPB DAILY@1500 [facility] PRN Reason: Protocol Last Admin: 06/03/17 14:06 Dose: 166.667 mls/hr Isosorbide Mononitrate (Imdur -) 30 mg PO DAILY [facility] Last Admin: 06/03/17 09:46 Dose: 30 mg Lactobacillus Acidophilus (Bacid -) 1 tab PO DAILY [facility] Last Admin: 06/03/17 09:44 Dose: 1 tab Loperamide HCl (Imodium -) 4 mg PO Q6H PRN PRN Reason: DIARRHEA Last Admin: 06/03/17 17:44 Dose: 4 mg Metoprolol Succinate (Toprol Xl -) 50 mg PO BID [facility] Last Admin: 06/03/17 09:46 Dose: 50 mg Pantoprazole Sodium (Protonix -) 40 mg PO DAILY [facility] Last Admin: 06/03/17 09:44 Dose: 40 mg Vancomycin HCl (Vancomycin Oral Solution) 250 mg PO Q6HPO [facility] Last Admin: 06/04/17 05:55 Dose: 250 mg Warfarin Sodium (Coumadin -) 3 mg PO DAILY@1800 [facility] Last Admin: 06/03/17 17:44 Dose: 3 mg - Objective Vital Signs: Vital Signs Temperature 98.1 F 06/04/17 05:00 Pulse Rate 83 06/04/17 05:00 Respiratory Rate 20 06/04/17 05:00 Blood Pressure 117/60 06/04/17 05:00 O2 Sat by Pulse Oximetry (%) 95 06/03/17 21:00 Constitutional: Yes: Calm Eyes: Yes: WNL HENT: Yes: WNL Neck: Yes: WNL Cardiovascular: Yes: Regular Rate and Rhythm Respiratory: Yes: On Nasal O2 Gastrointestinal: Yes: Soft ...Rectal Exam: Yes: Deferred Musculoskeletal: Yes: Muscle Weakness Neurological: Yes: Alert Labs: CBC, BMP 06/03/17 06:30 06/02/17 05:40 INR, PTT INR 2.91 (0.82-1.09) H 06/03/17 06:30 Assessment/Plan continue same trt
[2017-06-04] MEDS: AMIODARONE HCL 200 MG TABLET (FP) PO SCH (10:04)
[2017-06-04] MEDS: LACTOBACILLUS ACIDOPHILUS 1 EACH TAB (FP) PO SCH (10:04)
[2017-06-04] MEDS: ASPIRIN 81 MG CHEWABLE TABLETS PO SCH (10:04)
[2017-06-04] MEDS: ISOSORBIDE MONONITRATE 30 MG TAB.SR.24H (FP) PO SCH (10:04)
[2017-06-04] MEDS: METOPROLOL SUCCINATE 50 MG TAB.SR.24H (FP) PO SCH ×2 (10:04→21:13)
[2017-06-04] MEDS: PANTOPRAZOLE 40 MG TABLET (FP) PO SCH (10:04)
[2017-06-04] MEDS: ALBUTEROL SO4 0.083% IH SOL 2.5 MG/3 ML VIAL.NEB. NEB PRN (11:44)
[2017-06-04] MEDS: VANCOMYCIN 1,000 MG in DEXTROSE 5%-WATER - 250 ML IVPB SCH (14:45)
--- NOTE | 2017-06-04 14:50 | PN ---
Progress Note, Physician History of Present Illness: Pt states she feels well over all. Denies cough but still with shortness of breath sometimes. Afebrile. Had 2 loose BMs today, no abdominal pain. - Current Medication List Current Medications: Active Medications Albuterol Sulfate (Ventolin 0.083% Nebulizer Soln -) 1 amp NEB Q6H PRN PRN Reason: SHORT OF BREATH/WHEEZING Last Admin: 06/04/17 11:44 Dose: 1 amp Amiodarone HCl (Cordarone -) 200 mg PO DAILY [facility] Last Admin: 06/04/17 10:04 Dose: 200 mg Aspirin (Asa -) 81 mg PO DAILY [facility] Last Admin: 06/04/17 10:04 Dose: 81 mg Diltiazem HCl (Cardizem Cd -) 240 mg PO DAILY [facility] Last Admin: 06/04/17 10:04 Dose: 240 mg Cefepime HCl 2 gm/ Dextrose 100 mls @ 200 mls/hr IVPB DAILY@1800 [facility] Last Admin: 06/03/17 17:44 Dose: 200 mls/hr Vancomycin HCl 1,000 mg/ (Dextrose) 250 mls @ 166.667 mls/hr IVPB DAILY@1500 [facility] PRN Reason: Protocol Last Admin: 06/04/17 14:45 Dose: 166.667 mls/hr Isosorbide Mononitrate (Imdur -) 30 mg PO DAILY [facility] Last Admin: 06/04/17 10:04 Dose: 30 mg Lactobacillus Acidophilus (Bacid -) 1 tab PO DAILY [facility] Last Admin: 06/04/17 10:04 Dose: 1 tab Loperamide HCl (Imodium -) 4 mg PO Q6H PRN PRN Reason: DIARRHEA Last Admin: 06/03/17 17:44 Dose: 4 mg Metoprolol Succinate (Toprol Xl -) 50 mg PO BID [facility] Last Admin: 06/04/17 10:04 Dose: 50 mg Pantoprazole Sodium (Protonix -) 40 mg PO DAILY [facility] Last Admin: 06/04/17 10:04 Dose: 40 mg Vancomycin HCl (Vancomycin Oral Solution) 250 mg PO Q6HPO [facility] Last Admin: 06/04/17 12:30 Dose: 250 mg Warfarin Sodium (Coumadin -) 3 mg PO DAILY@1800 [facility] Last Admin: 06/03/17 17:44 Dose: 3 mg - Objective Vital Signs: Vital Signs Temperature 98.4 F 06/04/17 09:00 Pulse Rate 89 06/04/17 09:00 Respiratory Rate 20 06/04/17 09:00 Blood Pressure 96/58 06/04/17 09:00 O2 Sat by Pulse Oximetry (%) 96 06/04/17 10:00 Constitutional: Yes: No Distress Cardiovascular: Yes: Bradycardia Respiratory: Yes: Diminished Gastrointestinal: Yes: Normal Bowel Sounds, Soft Neurological: Yes: Alert, Oriented Labs: CBC, BMP 06/03/17 06:30 06/02/17 05:40 INR, PTT INR 2.91 (0.82-1.09) H 06/03/17 06:30 Microbiology 05/30/17 13:00 Blood - Central Line Blood Culture - Final NO GROWTH AFTER 5 DAYS INCUBATION 05/30/17 16:00 Blood - Central Line Blood Culture - Final Staphylococcus Haemolyticus 05/29/17 00:32 Blood - Peripheral Venous Blood Culture - Final NO GROWTH AFTER 5 DAYS INCUBATION 05/29/17 00:32 Blood - Peripheral Venous Blood Culture - Final NO GROWTH AFTER 5 DAYS INCUBATION 05/30/17 17:16 Stool Salmonella/Shigella Culture - Final 05/30/17 17:16 Stool Campylobacter Culture - Final NO GROWTH OF CAMPYLOBACTER SPECIES OBTAINED 05/30/17 17:16 Stool Yersinia Culture - Final NO GROWTH OF YERSINIA SPECIES OBTAINED 05/30/17 17:16 Stool Vibrio Culture - Final NO GROWTH OF VIBRIO SPECIES OBTAINED 05/30/17 17:16 Stool Escherichia coli 0157 Culture - Final NO GROWTH OF E COLI 0157 OBTAINED 05/30/17 17:16 Stool Clostridium difficile Antigen (ROSE) - Final 05/30/17 17:16 Stool Clostridium difficile Toxin Assay - Final 05/29/17 01:40 Urine - Urine - Catheterized Urine Culture - Final NO GROWTH OBTAINED Problem List - Problems (1) Atrial fibrillation with RVR Code(s): I48.91 - UNSPECIFIED ATRIAL FIBRILLATION (2) C. difficile diarrhea Code(s): A04.72 - ENTEROCOLITIS D/T CLOSTRIDIUM DIFFICILE, NOT SPCF RECUR (3) CHF (NYHA class II, ACC/AHA stage C) Code(s): I50.9 - HEART FAILURE, UNSPECIFIED (4) CKD stage 4 secondary to hypertension Code(s): I12.9 - HYPERTENSIVE CHRONIC KIDNEY DISEASE W STG 1-4/UNSP CHR KDNY; N18.4 - CHRONIC KIDNEY DISEASE, STAGE 4 (SEVERE) (5) Leukocytosis Code(s): D72.829 - ELEVATED WHITE BLOOD CELL COUNT, UNSPECIFIED Assessment/Plan 86 y.o. female with history of CHF, COPD, s/p b/l ISAURA, Afib, CKD recently treated for PNA and C. diff (toxin a/b neg) with clinical improvement now re- admitted with hypotension, lactic acidosis, leukocytosis with shortness of breath. Possible PNA Diarrhea- stool studies negative - completes 2 wks treatment for C. diff S. haemolyticus in Blood cultures - repeat blood cultures pending - continue Vancomycin IV, monitor renal function - consider 2D Echo - cont. Cefepime for now - leukocytosis resolved - started imodium, if diarrhea persists suggest GI evaluation
--- NOTE | 2017-06-04 15:24 | PN ---
Progress Note (short form) - Note Progress Note: PULMONARY AWAKE/ALERT CHEST CONGESTION VSS/AFEBRILE SPO2 96% 2L/M ANICTERIC DIMINISHED B/L BREATH SOUNDS S1S2 BS+ OBESE DECREASED EDEMA LOWER EXT LABS/MEDS/NOTES/IMAGES REVIEWED HGB 8.5 INR 2.9 CR 1.6 Pneumonia C.Diff s/p Septic Shock Acute on Chronic Renal Failure Lactic Acidosis COPD LV Systolic Dysfunction Mitral Regurgitation Atrial Fibrillation - antibiotics - continue BP meds - monitor urine output, creatinine - inhaled bronchodilators - O2 to keep Spo2 >90% - rate control - continue anticoagulation - monitor lytes - DVT prophylaxis Leno PINEDA MD
[2017-06-04] MEDS: WARFARIN NA 3 MG TABLET PO SCH (17:10)
[2017-06-04] MEDS: CEFEPIME 2 GM in DEXTROSE 5%-WATER - 100 ML IVPB SCH (17:10)
--- NOTE | 2017-06-04 19:18 | PN ---
Progress Note (short form) - Note Progress Note: 86 year old female, known case of CAD, angina pectoris, COPD, persistent atrial flutter with slow to moderate ventricular response, hypertension,. Had mild SOB and feels better following resp. treatment. NO chest pain or discomfort. She did not have C-diff. and apparently does not have MRS Active Medications Generic Name Dose Route Start Last Admin Trade Name Freq PRN Reason Stop Dose Admin Albuterol Sulfate 1 amp 05/31/17 15:33 06/04/17 11:44 Ventolin 0.083% Nebulizer Soln - NEB 1 amp Q6H PRN Administration SHORT OF BREATH/WHEEZING Amiodarone HCl 200 mg 06/03/17 10:00 06/04/17 10:04 Cordarone - PO 200 mg DAILY [facility] Administration Aspirin 81 mg 06/01/17 10:00 06/04/17 10:04 Asa - PO 81 mg DAILY [facility] Administration Diltiazem HCl 240 mg 06/01/17 10:00 06/04/17 10:04 Cardizem Cd - PO 240 mg DAILY [facility] Administration Cefepime HCl 2 gm/ Dextrose 100 mls @ 200 mls/hr 05/31/17 18:00 06/04/17 17: 10 IVPB 200 mls/hr DAILY@1800 [facility] Administration Vancomycin HCl 1,000 mg/ 250 mls @ 166.667 mls/hr 06/02/17 15:15 06/04/17 14: 45 Dextrose IVPB 166.667 mls/hr DAILY@1500 [facility] Administration Protocol Isosorbide Mononitrate 30 mg 06/01/17 10:00 06/04/17 10:04 Imdur - PO 30 mg DAILY MALIK Administration Lactobacillus Acidophilus 1 tab 05/31/17 14:15 06/04/17 10:04 Bacid - PO 1 tab DAILY MALIK Administration Loperamide HCl 4 mg 06/03/17 15:35 06/03/17 17:44 Imodium - PO 4 mg Q6H PRN Administration DIARRHEA Metoprolol Succinate 50 mg 06/02/17 22:45 06/04/17 10:04 Toprol Xl - PO 50 mg BID MALIK Administration Pantoprazole Sodium 40 mg 06/01/17 10:00 06/04/17 10:04 Protonix - PO 40 mg DAILY MALIK Administration Warfarin Sodium 3 mg 05/31/17 18:00 06/04/17 17:10 Coumadin - PO 3 mg DAILY@1800 MALIK Administration O: Patient was in no distress, mild pallor, no cyanosis. Last Vital Signs Temp Pulse Resp BP Pulse Ox 98.1 F 75 18 96/46 96 06/04/17 18:00 06/04/17 18:00 06/04/17 18:00 06/04/17 18:00 06/04/17 10:00 NECK: Supple, no JVD, carotids 2+, no bruits. HEART: PMI in the 5th ICS, no heaves or thrills. Distant heart sounds, no murmur or gallops heard. LUNGS: Clear. ABDOMEN: Soft, nontender, no organomegaly or masses. EXTREMITIES: No calf tenderness or dependent edema. CBC, BMP 06/03/17 06:30 06/02/17 05:40 IMPRESSION: 1. Persistent Atrial flutter with slow to moderate ventricular response. 2. CAD/angina pectoris. 3. COPD. 4. Hypertension. 5. CKD. RECOMMENDATIONS: 1. Bed side PT. 2. Increase ambulation. 3. F/u BMP.
[2017-06-05 07:40] LABS: BASO % 1.1 % (0-2.0); EOS % 10.3 % (0-4.5); MCH 30.9 pg (25.7-33.7); MCHC 31.5 g/dl (32.0-36.0); MEAN CELL VOLUME 97.9 fl (80-96); NEUT % 46.5 % (42.8-82.8); PLATELET COUNT 253 K/MM3 (134-434); RDW 24.8 % (11.6-15.6); WHITE BLOOD COUNT 6.7 K/mm3 (4.0-10.0)
[2017-06-05 07:50] LABS: INR 3.27 (0.82-1.09)
[2017-06-05 08:23] LABS: ALBUMIN 1.9 g/dl (3.4-5.0); ANION GAP 5 (8-16); CALCIUM 7.7 mg/dL (8.5-10.1); CO2 28 mmol/L (21-32); CREATININE 1.9 mg/dL (0.55-1.02); GLUCOSE,RANDOM 84 mg/dL (74-106); SGOT/AST 9 U/L (15-37); SGPT/ALT 23 U/L (12-78)
[2017-06-05 08:26] LABS: ALK PHOS 47 U/L (45-117); BILIRUBIN,TOTAL 0.3 mg/dL (0.2-1.0); TOT PROT 5.7 g/dl (6.4-8.2)
[2017-06-05] MEDS: METOPROLOL SUCCINATE 50 MG TAB.SR.24H (FP) PO SCH ×2 (09:18→21:56)
[2017-06-05] MEDS: ASPIRIN 81 MG CHEWABLE TABLETS PO SCH (09:18)
[2017-06-05] MEDS: AMIODARONE HCL 200 MG TABLET (FP) PO SCH (09:18)
[2017-06-05] MEDS: LACTOBACILLUS ACIDOPHILUS 1 EACH TAB (FP) PO SCH (09:18)
[2017-06-05] MEDS: ISOSORBIDE MONONITRATE 30 MG TAB.SR.24H (FP) PO SCH (09:18)
[2017-06-05] MEDS: PANTOPRAZOLE 40 MG TABLET (FP) PO SCH (09:18)
[2017-06-05] MEDS: ALBUTEROL SO4 0.083% IH SOL 2.5 MG/3 ML VIAL.NEB. NEB PRN (09:27)
--- NOTE | 2017-06-05 09:32 | PN ---
Progress Note, Physician Chief Complaint: Feels better History of Present Illness: Admitted with septic shock and blood culture strep - Current Medication List Current Medications: Active Medications Albuterol Sulfate (Ventolin 0.083% Nebulizer Soln -) 1 amp NEB Q6H PRN PRN Reason: SHORT OF BREATH/WHEEZING Last Admin: 06/05/17 09:27 Dose: 1 amp Amiodarone HCl (Cordarone -) 200 mg PO DAILY [facility] Last Admin: 06/05/17 09:18 Dose: 200 mg Aspirin (Asa -) 81 mg PO DAILY [facility] Last Admin: 06/05/17 09:18 Dose: 81 mg Diltiazem HCl (Cardizem Cd -) 240 mg PO DAILY [facility] Last Admin: 06/05/17 09:18 Dose: 240 mg Cefepime HCl 2 gm/ Dextrose 100 mls @ 200 mls/hr IVPB DAILY@1800 [facility] Last Admin: 06/04/17 17:10 Dose: 200 mls/hr Vancomycin HCl 1,000 mg/ (Dextrose) 250 mls @ 166.667 mls/hr IVPB DAILY@1500 [facility] PRN Reason: Protocol Last Admin: 06/04/17 14:45 Dose: 166.667 mls/hr Isosorbide Mononitrate (Imdur -) 30 mg PO DAILY [facility] Last Admin: 06/05/17 09:18 Dose: 30 mg Lactobacillus Acidophilus (Bacid -) 1 tab PO DAILY [facility] Last Admin: 06/05/17 09:18 Dose: 1 tab Loperamide HCl (Imodium -) 4 mg PO Q6H PRN PRN Reason: DIARRHEA Last Admin: 06/03/17 17:44 Dose: 4 mg Metoprolol Succinate (Toprol Xl -) 50 mg PO BID [facility] Last Admin: 06/05/17 09:18 Dose: 50 mg Pantoprazole Sodium (Protonix -) 40 mg PO DAILY [facility] Last Admin: 06/05/17 09:18 Dose: 40 mg Warfarin Sodium (Coumadin -) 3 mg PO DAILY@1800 [facility] Last Admin: 06/04/17 17:10 Dose: 3 mg - Objective Vital Signs: Vital Signs Temperature 98.4 F 06/05/17 06:00 Pulse Rate 81 06/05/17 09:26 Respiratory Rate 20 06/05/17 06:00 Blood Pressure 110/64 06/05/17 06:00 O2 Sat by Pulse Oximetry (%) 96 06/05/17 09:26 Constitutional: Yes: No Distress Eyes: Yes: WNL HENT: Yes: WNL Neck: Yes: WNL Cardiovascular: Yes: Regular Rate and Rhythm Respiratory: Yes: On Nasal O2 Gastrointestinal: Yes: WNL ...Rectal Exam: Yes: Deferred Genitourinary: Yes: WNL Musculoskeletal: Yes: WNL Edema: No Neurological: Yes: Alert Labs: CBC, BMP 06/05/17 06:25 06/05/17 06:25 INR, PTT INR 3.27 (0.82-1.09) H 06/05/17 06:25 Assessment/Plan Getting better Continue same trt
--- NOTE | 2017-06-05 13:07 | PN ---
Progress Note (short form) - Note Progress Note: PULMONARY AWAKE/ALERT/OOB TO CHAIR USING INCENTIVE VIANEY LESS CHEST CONGESTION VSS/AFEBRILE SPO2 96% 2L/M ANICTERIC DIMINISHED B/L BREATH SOUNDS S1S2 BS+ OBESE DECREASED EDEMA LOWER EXT LABS/MEDS/NOTES/IMAGES REVIEWED HGB 8.5 INR 3.27 CR 1.9 Pneumonia C.Diff s/p Septic Shock Acute on Chronic Renal Failure Lactic Acidosis COPD LV Systolic Dysfunction Mitral Regurgitation Atrial Fibrillation ON A/C target 2.5 - antibiotics - continue BP meds - monitor urine output, creatinine - inhaled bronchodilators - O2 to keep Spo2 >90% - rate control - continue anticoagulation /adjust dose accordingly - monitor lytes - DVT prophylaxis Leno PINEDA MD
--- NOTE | 2017-06-05 15:12 | PN ---
Progress Note, Physician - Current Medication List Current Medications: Active Medications Albuterol Sulfate (Ventolin 0.083% Nebulizer Soln -) 1 amp NEB Q6H PRN PRN Reason: SHORT OF BREATH/WHEEZING Last Admin: 06/05/17 09:27 Dose: 1 amp Amiodarone HCl (Cordarone -) 200 mg PO DAILY [facility] Last Admin: 06/05/17 09:18 Dose: 200 mg Aspirin (Asa -) 81 mg PO DAILY [facility] Last Admin: 06/05/17 09:18 Dose: 81 mg Diltiazem HCl (Cardizem Cd -) 240 mg PO DAILY [facility] Last Admin: 06/05/17 09:18 Dose: 240 mg Cefepime HCl 2 gm/ Dextrose 100 mls @ 200 mls/hr IVPB DAILY@1800 [facility] Last Admin: 06/04/17 17:10 Dose: 200 mls/hr Vancomycin HCl 1,000 mg/ (Dextrose) 250 mls @ 166.667 mls/hr IVPB DAILY@1500 [facility] PRN Reason: Protocol Last Admin: 06/04/17 14:45 Dose: 166.667 mls/hr Isosorbide Mononitrate (Imdur -) 30 mg PO DAILY [facility] Last Admin: 06/05/17 09:18 Dose: 30 mg Lactobacillus Acidophilus (Bacid -) 1 tab PO DAILY [facility] Last Admin: 06/05/17 09:18 Dose: 1 tab Loperamide HCl (Imodium -) 4 mg PO Q6H PRN PRN Reason: DIARRHEA Last Admin: 06/03/17 17:44 Dose: 4 mg Metoprolol Succinate (Toprol Xl -) 50 mg PO BID [facility] Last Admin: 06/05/17 09:18 Dose: 50 mg Pantoprazole Sodium (Protonix -) 40 mg PO DAILY [facility] Last Admin: 06/05/17 09:18 Dose: 40 mg Warfarin Sodium (Coumadin -) 3 mg PO DAILY@1800 [facility] Last Admin: 06/04/17 17:10 Dose: 3 mg - Objective Vital Signs: Vital Signs Temperature 98.4 F 06/05/17 06:00 Pulse Rate 91 H 06/05/17 10:00 Respiratory Rate 20 06/05/17 10:00 Blood Pressure 105/84 06/05/17 10:00 O2 Sat by Pulse Oximetry (%) 96 06/05/17 09:26 Constitutional: Yes: No Distress, Calm Cardiovascular: Yes: Tachycardia Respiratory: Yes: Regular Gastrointestinal: Yes: Normal Bowel Sounds, Soft Extremities: Yes: WNL Neurological: Yes: Alert, Oriented Labs: CBC, BMP 06/05/17 06:25 06/05/17 06:25 INR, PTT INR 3.27 (0.82-1.09) H 06/05/17 06:25 Problem List - Problems (1) Atrial fibrillation with RVR Code(s): I48.91 - UNSPECIFIED ATRIAL FIBRILLATION (2) C. difficile diarrhea Code(s): A04.72 - ENTEROCOLITIS D/T CLOSTRIDIUM DIFFICILE, NOT SPCF RECUR (3) CHF (NYHA class II, ACC/AHA stage C) Code(s): I50.9 - HEART FAILURE, UNSPECIFIED (4) CKD stage 4 secondary to hypertension Code(s): I12.9 - HYPERTENSIVE CHRONIC KIDNEY DISEASE W STG 1-4/UNSP CHR KDNY; N18.4 - CHRONIC KIDNEY DISEASE, STAGE 4 (SEVERE) (5) Leukocytosis Code(s): D72.829 - ELEVATED WHITE BLOOD CELL COUNT, UNSPECIFIED Assessment/Plan 86 y.o. female with history of CHF, COPD, s/p b/l ISAURA, Afib, CKD recently treated for PNA and C. diff (toxin a/b neg) with clinical improvement now re- admitted with hypotension, lactic acidosis, leukocytosis with shortness of breath. Possible PNA Resolved Diarrhea- C. diff neg/stool studies negative , s/p course of vancomycin po S. haemolyticus Bacteremia s/p Shock - cont Cefepime x 3 more days - continue Vancomycin IV x 5 more days - repeat blood cultures show no growth, leukocytosis resolved - diarrhea resolved monitor renal function, vitals closely
[2017-06-05] MEDS ORDERED: PT OWN MED DRAWER 7, Y5N ONE ×2 (15:41→17:30)
[2017-06-05] MEDS: VANCOMYCIN 1,000 MG in DEXTROSE 5%-WATER - 250 ML IVPB SCH (15:45)
[2017-06-05] MEDS: CEFEPIME 2 GM in DEXTROSE 5%-WATER - 100 ML IVPB SCH (17:36)
[2017-06-06 00:11] LABS: AMIODARONE 0.5 ug/mL (1.0-2.5); NORAMIODARONE 0.4 ug/mL (1.0-2.5)
[2017-06-06 08:11] LABS: MCH 31.1 pg (25.7-33.7); MEAN CELL VOLUME 97.3 fl (80-96); MEAN PLT VOLUME 8.9 fl (7.5-11.1); PLATELET COUNT 260 K/MM3 (134-434); WHITE BLOOD COUNT 6.5 K/mm3 (4.0-10.0)
[2017-06-06 08:23] LABS: ALBUMIN 1.8 g/dl (3.4-5.0); ANION GAP 7 (8-16); CALCIUM 7.6 mg/dL (8.5-10.1); CO2 25 mmol/L (21-32); CREATININE 2.1 mg/dL (0.55-1.02); GLUCOSE,RANDOM 78 mg/dL (74-106); PROTHROMBIN TIME (PATIENT) 33.9 SEC (9.98-11.88); SGOT/AST 9 U/L (15-37); SGPT/ALT 19 U/L (12-78)
[2017-06-06 08:25] LABS: ALK PHOS 44 U/L (45-117); BILIRUBIN,TOTAL 0.5 mg/dL (0.2-1.0); TOT PROT 5.5 g/dl (6.4-8.2)
--- NOTE | 2017-06-06 09:38 | PN ---
Progress Note, Physician Chief Complaint: Feels better History of Present Illness: Septicemia ,pneumonia and CHF On IV antibiotics - Current Medication List Current Medications: Active Medications Amiodarone HCl (Cordarone -) 200 mg PO DAILY [facility] Last Admin: 06/05/17 09:18 Dose: 200 mg Aspirin (Asa -) 81 mg PO DAILY [facility] Last Admin: 06/05/17 09:18 Dose: 81 mg Diltiazem HCl (Cardizem Cd -) 240 mg PO DAILY [facility] Last Admin: 06/05/17 09:18 Dose: 240 mg Cefepime HCl 2 gm/ Dextrose 100 mls @ 200 mls/hr IVPB DAILY@1800 [facility] Last Admin: 06/05/17 17:36 Dose: 200 mls/hr Vancomycin HCl 1,000 mg/ (Dextrose) 250 mls @ 166.667 mls/hr IVPB DAILY@1500 [facility] PRN Reason: Protocol Last Admin: 06/05/17 15:45 Dose: 166.667 mls/hr Isosorbide Mononitrate (Imdur -) 30 mg PO DAILY [facility] Last Admin: 06/05/17 09:18 Dose: 30 mg Lactobacillus Acidophilus (Bacid -) 1 tab PO DAILY [facility] Last Admin: 06/05/17 09:18 Dose: 1 tab Loperamide HCl (Imodium -) 4 mg PO Q6H PRN PRN Reason: DIARRHEA Last Admin: 06/03/17 17:44 Dose: 4 mg Metoprolol Succinate (Toprol Xl -) 50 mg PO BID [facility] Last Admin: 06/05/17 21:56 Dose: 50 mg Pantoprazole Sodium (Protonix -) 40 mg PO DAILY [facility] Last Admin: 06/05/17 09:18 Dose: 40 mg - Objective Vital Signs: Vital Signs Temperature 98.0 F 06/06/17 06:00 Pulse Rate 88 06/06/17 06:00 Respiratory Rate 20 06/06/17 06:00 Blood Pressure 96/57 06/06/17 06:00 O2 Sat by Pulse Oximetry (%) 96 06/05/17 21:00 Constitutional: Yes: Calm Eyes: Yes: WNL HENT: Yes: WNL Neck: Yes: WNL Cardiovascular: Yes: Regular Rate and Rhythm Respiratory: Yes: WNL Gastrointestinal: Yes: Normal Bowel Sounds ...Rectal Exam: Yes: WNL, Deferred Genitourinary: Yes: WNL Breast(s): Yes: WNL Edema: No Neurological: Yes: Alert Labs: CBC, BMP 06/06/17 06:30 06/06/17 06:30 INR, PTT INR 3.00 (0.82-1.09) H 06/06/17 06:30 Assessment/Plan continue same trt
--- NOTE | 2017-06-06 10:22 | PN ---
Progress Note (short form) - Note Progress Note: 86 year old female, known case of CAD, angina pectoris, COPD, persistent atrial flutter with slow to moderate ventricular response, hypertension,. Patient is out of bed in the chair, feels better, no shortness of breath or chest discomfort reported. Still in atrial flutter with a controlled ventricular response. Active Medications Generic Name Dose Route Start Last Admin Trade Name Freq PRN Reason Stop Dose Admin Amiodarone HCl 200 mg 06/03/17 10:00 06/05/17 09:18 Cordarone - PO 200 mg DAILY [facility] Administration Aspirin 81 mg 06/01/17 10:00 06/05/17 09:18 Asa - PO 81 mg DAILY [facility] Administration Diltiazem HCl 240 mg 06/01/17 10:00 06/05/17 09:18 Cardizem Cd - PO 240 mg DAILY [facility] Administration Cefepime HCl 2 gm/ Dextrose 100 mls @ 200 mls/hr 05/31/17 18:00 06/05/17 17: 36 IVPB 200 mls/hr DAILY@1800 [facility] Administration Vancomycin HCl 1,000 mg/ 250 mls @ 166.667 mls/hr 06/02/17 15:15 06/05/17 15: 45 Dextrose IVPB 166.667 mls/hr DAILY@1500 [facility] Administration Protocol Isosorbide Mononitrate 30 mg 06/01/17 10:00 06/05/17 09:18 Imdur - PO 30 mg DAILY [facility] Administration Lactobacillus Acidophilus 1 tab 05/31/17 14:15 06/05/17 09:18 Bacid - PO 1 tab DAILY [facility] Administration Loperamide HCl 4 mg 06/03/17 15:35 06/03/17 17:44 Imodium - PO 4 mg Q6H PRN Administration DIARRHEA Metoprolol Succinate 50 mg 06/02/17 22:45 06/05/17 21:56 Toprol Xl - PO 50 mg BID [facility] Administration Pantoprazole Sodium 40 mg 06/01/17 10:00 06/05/17 09:18 Protonix - PO 40 mg DAILY [facility] Administration O: Patient was in no distress, mild pallor, no cyanosis, clubbing or jaundice. Last Vital Signs Temp Pulse Resp BP Pulse Ox 98.0 F 88 Irregular 20 96/57 96 06/06/17 06:00 06/06/17 06:00 06/06/17 06:00 06/06/17 06:00 06/05/17 21:00 NECK: Supple, no JVD, carotids 2+, no bruits. HEART: PMI in the 5th ICS, no heaves or thrills. Distant heart sounds, no murmur or gallops heard. LUNGS: Clear. ABDOMEN: Soft, nontender, no organomegaly or masses. EXTREMITIES: No calf tenderness or dependent edema. CBC, BMP 06/06/17 06:30 06/06/17 06:30 IMPRESSION: 1. Persistent Atrial flutter with moderate ventricular response. 2. CAD/angina pectoris. 3. COPD. 4. Hypertension. 5. CKD. RECOMMENDATIONS: 1. Increase ambulation. 2. Bed side PT.
[2017-06-06] MEDS ORDERED: PT OWN MED DRAWER 7, Y5N ONE ×2 (10:55→16:16)
[2017-06-06] MEDS: METOPROLOL SUCCINATE 50 MG TAB.SR.24H (FP) PO SCH ×2 (11:00→21:26)
[2017-06-06] MEDS: PANTOPRAZOLE 40 MG TABLET (FP) PO SCH (11:00)
[2017-06-06] MEDS: LACTOBACILLUS ACIDOPHILUS 1 EACH TAB (FP) PO SCH (11:00)
[2017-06-06] MEDS: ISOSORBIDE MONONITRATE 30 MG TAB.SR.24H (FP) PO SCH (11:00)
[2017-06-06] MEDS: ASPIRIN 81 MG CHEWABLE TABLETS PO SCH (11:00)
[2017-06-06] MEDS: AMIODARONE HCL 200 MG TABLET (FP) PO SCH (11:00)
--- NOTE | 2017-06-06 11:48 | PN ---
Progress Note, Physician History of Present Illness: Pt is afebrile, without acute distress. Currently sitting in chair. Denies new complaints. - Current Medication List Current Medications: Active Medications Amiodarone HCl (Cordarone -) 200 mg PO DAILY [facility] Last Admin: 06/06/17 11:00 Dose: 200 mg Aspirin (Asa -) 81 mg PO DAILY [facility] Last Admin: 06/06/17 11:00 Dose: 81 mg Diltiazem HCl (Cardizem Cd -) 240 mg PO DAILY [facility] Last Admin: 06/06/17 11:00 Dose: 240 mg Cefepime HCl 2 gm/ Dextrose 100 mls @ 200 mls/hr IVPB DAILY@1800 [facility] Last Admin: 06/05/17 17:36 Dose: 200 mls/hr Vancomycin HCl 1,000 mg/ (Dextrose) 250 mls @ 166.667 mls/hr IVPB DAILY@1500 [facility] PRN Reason: Protocol Last Admin: 06/05/17 15:45 Dose: 166.667 mls/hr Isosorbide Mononitrate (Imdur -) 30 mg PO DAILY [facility] Last Admin: 06/06/17 11:00 Dose: 30 mg Lactobacillus Acidophilus (Bacid -) 1 tab PO DAILY [facility] Last Admin: 06/06/17 11:00 Dose: 1 tab Loperamide HCl (Imodium -) 4 mg PO Q6H PRN PRN Reason: DIARRHEA Last Admin: 06/03/17 17:44 Dose: 4 mg Metoprolol Succinate (Toprol Xl -) 50 mg PO BID [facility] Last Admin: 06/06/17 11:00 Dose: 50 mg Pantoprazole Sodium (Protonix -) 40 mg PO DAILY [facility] Last Admin: 06/06/17 11:00 Dose: 40 mg - Objective Vital Signs: Vital Signs Temperature 98.7 F 06/06/17 08:00 Pulse Rate 60 06/06/17 08:00 Respiratory Rate 20 06/06/17 08:00 Blood Pressure 95/70 06/06/17 08:00 O2 Sat by Pulse Oximetry (%) 98 06/06/17 08:00 Constitutional: Yes: No Distress, Calm Cardiovascular: Yes: Pulse Irregular Respiratory: Yes: Diminished (bibasilar) Gastrointestinal: Yes: Normal Bowel Sounds, Soft Integumentary: Yes: WNL Neurological: Yes: Alert, Oriented Labs: CBC, BMP 06/06/17 06:30 06/06/17 06:30 INR, PTT INR 3.00 (0.82-1.09) H 06/06/17 06:30 Problem List - Problems (1) Atrial fibrillation with RVR Code(s): I48.91 - UNSPECIFIED ATRIAL FIBRILLATION (2) C. difficile diarrhea Code(s): A04.72 - ENTEROCOLITIS D/T CLOSTRIDIUM DIFFICILE, NOT SPCF RECUR (3) CHF (NYHA class II, ACC/AHA stage C) Code(s): I50.9 - HEART FAILURE, UNSPECIFIED (4) CKD stage 4 secondary to hypertension Code(s): I12.9 - HYPERTENSIVE CHRONIC KIDNEY DISEASE W STG 1-4/UNSP CHR KDNY; N18.4 - CHRONIC KIDNEY DISEASE, STAGE 4 (SEVERE) (5) Leukocytosis Code(s): D72.829 - ELEVATED WHITE BLOOD CELL COUNT, UNSPECIFIED Assessment/Plan 86 y.o. female with history of CHF, COPD, s/p b/l ISAURA, Afib, CKD recently treated for PNA and C. diff (toxin a/b neg) with clinical improvement now re- admitted with hypotension, lactic acidosis, leukocytosis with shortness of breath. Possible PNA Resolved Diarrhea- C. diff neg/stool studies negative , s/p course of vancomycin po S. haemolyticus Bacteremia s/p Shock - continue Cefepime IV x 2 more days - hold Vancomycin dose as Creatinine rising, check Vancomycin random level in a.m. - repeat blood cultures show no growth, leukocytosis resolved - diarrhea resolved monitor renal function, vitals closely
--- NOTE | 2017-06-06 12:54 | PN ---
Progress Note (short form) - Note Progress Note: PULMONARY AWAKE/ALERT/OOB TO CHAIR USING INCENTIVE VIANEY LESS CHEST CONGESTION VSS/AFEBRILE SPO2 96% 2L/M ANICTERIC/NECROTIC TEETH/GUM DISEASE DIMINISHED B/L BREATH SOUNDS S1S2 BS+ OBESE DECREASED EDEMA LOWER EXT LABS/MEDS/NOTES/CT IMAGES REVIEWED HGB 8.3 INR 3.0 CR 2.1 BUN21 Pneumonia C.Diff s/p Septic Shock Acute on Chronic Renal Failure Lactic Acidosis COPD LV Systolic Dysfunction Mitral Regurgitation Atrial Fibrillation ON A/C target 2.5 - antibiotics - continue BP meds - monitor urine output, creatinine - inhaled bronchodilators - O2 to keep Spo2 >90% - rate control - continue anticoagulation /adjust dose accordingly - monitor lytes - DVT prophylaxis Leno PINEDA MD
[2017-06-06] MEDS: CEFEPIME 2 GM in DEXTROSE 5%-WATER - 100 ML IVPB SCH (17:01)
[2017-06-07] MEDS: ISOSORBIDE MONONITRATE 30 MG TAB.SR.24H (FP) PO SCH (10:06)
[2017-06-07] MEDS: PANTOPRAZOLE 40 MG TABLET (FP) PO SCH (10:06)
[2017-06-07] MEDS: AMIODARONE HCL 200 MG TABLET (FP) PO SCH (10:06)
[2017-06-07] MEDS: METOPROLOL SUCCINATE 50 MG TAB.SR.24H (FP) PO SCH ×2 (10:06→21:37)
[2017-06-07] MEDS: ASPIRIN 81 MG CHEWABLE TABLETS PO SCH (10:06)
[2017-06-07] MEDS: LACTOBACILLUS ACIDOPHILUS 1 EACH TAB (FP) PO SCH (10:06)
--- NOTE | 2017-06-07 10:40 | PN ---
Progress Note, Physician History of Present Illness: Dr Brown covering Dr. Hawkins No complaints or events overnight (+) cough improving Tele: Off - Current Medication List Current Medications: Active Medications Amiodarone HCl (Cordarone -) 200 mg PO DAILY [facility] Last Admin: 06/07/17 10:06 Dose: 200 mg Aspirin (Asa -) 81 mg PO DAILY [facility] Last Admin: 06/07/17 10:06 Dose: 81 mg Diltiazem HCl (Cardizem Cd -) 240 mg PO DAILY [facility] Last Admin: 06/07/17 10:06 Dose: 240 mg Cefepime HCl 2 gm/ Dextrose 100 mls @ 200 mls/hr IVPB DAILY@1800 [facility] Last Admin: 06/06/17 17:01 Dose: 200 mls/hr Vancomycin HCl 1,000 mg/ (Dextrose) 250 mls @ 166.667 mls/hr IVPB DAILY@1500 [facility] PRN Reason: Protocol Last Admin: 06/05/17 15:45 Dose: 166.667 mls/hr Isosorbide Mononitrate (Imdur -) 30 mg PO DAILY [facility] Last Admin: 06/07/17 10:06 Dose: 30 mg Lactobacillus Acidophilus (Bacid -) 1 tab PO DAILY [facility] Last Admin: 06/07/17 10:06 Dose: 1 tab Loperamide HCl (Imodium -) 4 mg PO Q6H PRN PRN Reason: DIARRHEA Last Admin: 06/03/17 17:44 Dose: 4 mg Metoprolol Succinate (Toprol Xl -) 50 mg PO BID [facility] Last Admin: 06/07/17 10:06 Dose: 50 mg Pantoprazole Sodium (Protonix -) 40 mg PO DAILY [facility] Last Admin: 06/07/17 10:06 Dose: 40 mg - Objective Vital Signs: Vital Signs Temperature 98.1 F 06/07/17 09:59 Pulse Rate 96 H 06/07/17 09:59 Respiratory Rate 20 06/07/17 09:59 Blood Pressure 103/51 06/07/17 09:59 O2 Sat by Pulse Oximetry (%) 98 06/06/17 21:00 Constitutional: Yes: No Distress, Calm Eyes: Yes: WNL HENT: Yes: WNL Neck: Yes: WNL Cardiovascular: Yes: WNL, Regular Rate and Rhythm Respiratory: Yes: Diminished, Rales Gastrointestinal: Yes: Normal Bowel Sounds Extremities: Yes: WNL Edema: No Labs: CBC, BMP 06/06/17 06:30 06/06/17 06:30 INR, PTT INR 3.00 (0.82-1.09) H 06/06/17 06:30 Assessment/Plan Pt is an 86F w/ PMH CAD, COPD, LV systolic dysfunction, mitral regurgitation, atrial fibrillation, recent admission for pneumonia and C diff brought to ICU from [place] because of SOB and fever following a recent admission for PNA and septic shock. CHF -hist CAD and LV dysfunction -Echo here on 04/2017 showed mild to moderate LV dysfunction with moderate MR -Not on standing diuresis (?), has crackles on exam today. Perhaps due to prior setting of sepsis? -Would favor continues diuresis as BP improved off pressors. -Creat 2.1 Afib Rate controlled on Amiodarone and cardizem Not on AC, INR 3
--- NOTE | 2017-06-07 11:38 | PN ---
Progress Note, Physician Chief Complaint: No new complaints History of Present Illness: 86yo female with h/o CAD, COPD, LV systolic dysfunction, mitral regurgitation, Persistent atrial fibrillation, recent admission for pneumonia and C diff who was recently discharged after treated for C Diff HCAP present to [facility] from [facility] on 05/29 heath AMS, Hypotention, SOB admitted in ICU for pressurres transfered to floor for further management. - Current Medication List Current Medications: Active Medications Amiodarone HCl (Cordarone -) 200 mg PO DAILY [facility] Last Admin: 06/07/17 10:06 Dose: 200 mg Aspirin (Asa -) 81 mg PO DAILY [facility] Last Admin: 06/07/17 10:06 Dose: 81 mg Diltiazem HCl (Cardizem Cd -) 240 mg PO DAILY [facility] Last Admin: 06/07/17 10:06 Dose: 240 mg Cefepime HCl 2 gm/ Dextrose 100 mls @ 200 mls/hr IVPB DAILY@1800 [facility] Last Admin: 06/06/17 17:01 Dose: 200 mls/hr Vancomycin HCl 1,000 mg/ (Dextrose) 250 mls @ 166.667 mls/hr IVPB DAILY@1500 [facility] PRN Reason: Protocol Last Admin: 06/05/17 15:45 Dose: 166.667 mls/hr Isosorbide Mononitrate (Imdur -) 30 mg PO DAILY [facility] Last Admin: 06/07/17 10:06 Dose: 30 mg Lactobacillus Acidophilus (Bacid -) 1 tab PO DAILY [facility] Last Admin: 06/07/17 10:06 Dose: 1 tab Loperamide HCl (Imodium -) 4 mg PO Q6H PRN PRN Reason: DIARRHEA Last Admin: 06/03/17 17:44 Dose: 4 mg Metoprolol Succinate (Toprol Xl -) 50 mg PO BID [facility] Last Admin: 06/07/17 10:06 Dose: 50 mg Pantoprazole Sodium (Protonix -) 40 mg PO DAILY [facility] Last Admin: 06/07/17 10:06 Dose: 40 mg - Objective Vital Signs: Vital Signs Temperature 98.1 F 06/07/17 09:59 Pulse Rate 96 H 06/07/17 09:59 Respiratory Rate 20 06/07/17 09:59 Blood Pressure 103/51 06/07/17 09:59 O2 Sat by Pulse Oximetry (%) 98 06/06/17 21:00 Elderly f feels improved c/o teeth pain, no c/o fever, chills or SOB HEENT; Mm moist, mild anemia, PERRLA EOMI NECK; No JVd No Bruit CHEST: Minimal Basal Crepts ABD; Obese, non tender Bs + EXT: + Edema feet, no calf tenderness CEO; AoX3 non focal Labs: CBC, BMP 06/06/17 06:30 06/06/17 06:30 INR, PTT INR 3.00 (0.82-1.09) H 06/06/17 06:30 Problem List - Problems (1) Healthcare-associated pneumonia Assessment/Plan: on IV Cefepime and Vancomycin F/U Id Recommendations. F/U Vanco trough Code(s): J18.9 - PNEUMONIA, UNSPECIFIED ORGANISM (2) Sepsis Assessment/Plan: Due to HCAP on IV Cefepime and Vancomycin. trough is 18 F/U Id recommendations. Code(s): A41.9 - SEPSIS, UNSPECIFIED ORGANISM (3) Altered mental status Assessment/Plan: Due to sepsis improving Code(s): R41.82 - ALTERED MENTAL STATUS, UNSPECIFIED (4) CHF (NYHA class II, ACC/AHA stage C) Assessment/Plan: Cont current management B blockers off Code(s): I50.9 - HEART FAILURE, UNSPECIFIED (5) Persistent atrial fibrillation Assessment/Plan: On Amiodarone , Diltizem ,and B Blockers, on AC INR 3.O Hold coumadin F/U INR in am F/U cardiology recommendations. Code(s): I48.1 - PERSISTENT ATRIAL FIBRILLATION (6) CKD stage 4 secondary to hypertension Assessment/Plan: renal functions are stable F/u BMP in am Code(s): I12.9 - HYPERTENSIVE CHRONIC KIDNEY DISEASE W STG 1-4/UNSP CHR KDNY; N18.4 - CHRONIC KIDNEY DISEASE, STAGE 4 (SEVERE)
--- NOTE | 2017-06-07 11:52 | PN ---
Progress Note (short form) - Note Progress Note: PULMONARY AWAKE/ALERT/OOB TO CHAIR USING INCENTIVE VIANEY LESS CHEST CONGESTION DAY #6 VANCO DAY #8 CEFEPIME BLOOD CULTURE + ON 12 STAPH HAEMOLYTICUS VSS/AFEBRILE SPO2 96% 2L/M ANICTERIC/NECROTIC TEETH/GUM DISEASE DIMINISHED B/L BREATH SOUNDS S1S2 BS+ OBESE DECREASED EDEMA LOWER EXT LABS/MEDS/NOTES/CT IMAGES REVIEWED NO NEW LABS TODAY Pneumonia C.Diff s/p Septic Shock Acute on Chronic Renal Failure Lactic Acidosis COPD LV Systolic Dysfunction Mitral Regurgitation Atrial Fibrillation ON A/C target 2.5 - antibiotics - continue BP meds - monitor urine output, creatinine - inhaled bronchodilators - O2 to keep Spo2 >90% - rate control - continue anticoagulation /adjust dose accordingly - monitor lytes - DVT prophylaxis - ID follow up Leno PINEDA MD
--- NOTE | 2017-06-07 12:43 | PN ---
Progress Note, Physician - Current Medication List Current Medications: Active Medications Amiodarone HCl (Cordarone -) 200 mg PO DAILY [facility] Last Admin: 06/07/17 10:06 Dose: 200 mg Aspirin (Asa -) 81 mg PO DAILY [facility] Last Admin: 06/07/17 10:06 Dose: 81 mg Diltiazem HCl (Cardizem Cd -) 240 mg PO DAILY [facility] Last Admin: 06/07/17 10:06 Dose: 240 mg Cefepime HCl 2 gm/ Dextrose 100 mls @ 200 mls/hr IVPB DAILY@1800 [facility] Last Admin: 06/06/17 17:01 Dose: 200 mls/hr Vancomycin HCl 1,000 mg/ (Dextrose) 250 mls @ 166.667 mls/hr IVPB DAILY@1500 [facility] PRN Reason: Protocol Last Admin: 06/05/17 15:45 Dose: 166.667 mls/hr Isosorbide Mononitrate (Imdur -) 30 mg PO DAILY [facility] Last Admin: 06/07/17 10:06 Dose: 30 mg Lactobacillus Acidophilus (Bacid -) 1 tab PO DAILY [facility] Last Admin: 06/07/17 10:06 Dose: 1 tab Loperamide HCl (Imodium -) 4 mg PO Q6H PRN PRN Reason: DIARRHEA Last Admin: 06/03/17 17:44 Dose: 4 mg Metoprolol Succinate (Toprol Xl -) 50 mg PO BID [facility] Last Admin: 06/07/17 10:06 Dose: 50 mg Pantoprazole Sodium (Protonix -) 40 mg PO DAILY [facility] Last Admin: 06/07/17 10:06 Dose: 40 mg - Objective Vital Signs: Vital Signs Temperature 98.1 F 06/07/17 09:59 Pulse Rate 81 06/07/17 11:48 Respiratory Rate 20 06/07/17 09:59 Blood Pressure 103/51 06/07/17 09:59 O2 Sat by Pulse Oximetry (%) 98 06/07/17 11:48 Labs: CBC, BMP 06/06/17 06:30 06/06/17 06:30 INR, PTT INR 3.00 (0.82-1.09) H 06/06/17 06:30
[2017-06-07] MEDS: VANCOMYCIN 1,000 MG in DEXTROSE 5%-WATER - 250 ML IVPB SCH (14:05)
[2017-06-08 08:07] LABS: BASO % 0.7 % (0-2.0); EOS % 4.6 % (0-4.5); MCHC 31.7 g/dl (32.0-36.0); MEAN CELL VOLUME 97.7 fl (80-96); MEAN PLT VOLUME 8.7 fl (7.5-11.1); NEUT % 54.5 % (42.8-82.8); PLATELET COUNT 272 K/MM3 (134-434); RDW 23.8 % (11.6-15.6); WHITE BLOOD COUNT 8.6 K/mm3 (4.0-10.0)
[2017-06-08 08:30] LABS: INR 1.96 (0.82-1.09); PROTHROMBIN TIME (PATIENT) 22.1 SEC (9.98-11.88)
[2017-06-08 08:32] LABS: ANION GAP 5 (8-16); CALCIUM 8.2 mg/dL (8.5-10.1); CO2 28 mmol/L (21-32); CREATININE 2.4 mg/dL (0.55-1.02); GLUCOSE,RANDOM 75 mg/dL (74-106)
--- NOTE | 2017-06-08 08:45 | PN ---
Progress Note, Physician History of Present Illness: No complaints this AM BP low yesterday to 90s in mid day (12noon) - no dizziness (+) cough - Current Medication List Current Medications: Active Medications Amiodarone HCl (Cordarone -) 200 mg PO DAILY [facility] Last Admin: 06/07/17 10:06 Dose: 200 mg Aspirin (Asa -) 81 mg PO DAILY [facility] Last Admin: 06/07/17 10:06 Dose: 81 mg Diltiazem HCl (Cardizem Cd -) 240 mg PO DAILY [facility] Last Admin: 06/07/17 10:06 Dose: 240 mg Vancomycin HCl 1,000 mg/ (Dextrose) 250 mls @ 166.667 mls/hr IVPB DAILY@1500 MALIK PRN Reason: Protocol Last Admin: 06/07/17 14:05 Dose: Not Given Isosorbide Mononitrate (Imdur -) 30 mg PO DAILY [facility] Last Admin: 06/07/17 10:06 Dose: 30 mg Lactobacillus Acidophilus (Bacid -) 1 tab PO DAILY [facility] Last Admin: 06/07/17 10:06 Dose: 1 tab Loperamide HCl (Imodium -) 4 mg PO Q6H PRN PRN Reason: DIARRHEA Last Admin: 06/03/17 17:44 Dose: 4 mg Metoprolol Succinate (Toprol Xl -) 50 mg PO BID [facility] Last Admin: 06/07/17 21:37 Dose: 50 mg Pantoprazole Sodium (Protonix -) 40 mg PO DAILY [facility] Last Admin: 06/07/17 10:06 Dose: 40 mg - Objective Vital Signs: Vital Signs Temperature 98.6 F 06/08/17 06:00 Pulse Rate 87 06/08/17 06:00 Respiratory Rate 20 06/08/17 06:00 Blood Pressure 101/44 06/08/17 06:00 O2 Sat by Pulse Oximetry (%) 96 06/07/17 21:00 Constitutional: Yes: No Distress, Calm Eyes: Yes: Conjunctiva Clear HENT: Yes: WNL Neck: Yes: WNL Cardiovascular: Yes: Pulse Irregular Respiratory: Yes: Rales, Rhonchi Gastrointestinal: Yes: WNL, Normal Bowel Sounds Extremities: Yes: WNL Edema: Yes Edema: LLE: Trace, RLE: Trace Labs: CBC, BMP 06/08/17 06:25 06/08/17 06:25 INR, PTT INR 1.96 (0.82-1.09) H D 06/08/17 06:25 Assessment/Plan Pt is an 86F w/ PMH CAD, COPD, LV systolic dysfunction, mitral regurgitation, atrial fibrillation, recent admission for pneumonia and C diff brought to ICU from [place] because of SOB and fever following a recent admission for PNA and septic shock. CHF -hist CAD and LV dysfunction -Echo here on 04/2017 showed mild to moderate LV dysfunction with moderate MR -Not on standing diuresis (?), has crackles on exam today. Perhaps due to prior setting of sepsis? -Would favor continues diuresis as BP improved off pressors. -Creat 2.1 ->2.4 -BP remains low and would d/c Imdur Afib Rate controlled on Amiodarone and cardizem (and BB?) Not on AC, INR 1.9, if INR cotinues to decline, would start IV UFH
[2017-06-08] MEDS: METOPROLOL SUCCINATE 50 MG TAB.SR.24H (FP) PO SCH ×2 (09:45→22:16)
[2017-06-08] MEDS: LACTOBACILLUS ACIDOPHILUS 1 EACH TAB (FP) PO SCH (09:45)
[2017-06-08] MEDS: PANTOPRAZOLE 40 MG TABLET (FP) PO SCH (09:45)
[2017-06-08] MEDS: ASPIRIN 81 MG CHEWABLE TABLETS PO SCH (09:45)
[2017-06-08] MEDS: AMIODARONE HCL 200 MG TABLET (FP) PO SCH (09:45)
[2017-06-08 11:52] LABS: POLYCHROMASIA FEW
[2017-06-08 11:53] LABS: ANISOCYTOSIS 2+; MACROCYTOSIS 2+
--- NOTE | 2017-06-08 12:34 | PN ---
Progress Note, Physician - Current Medication List Current Medications: Active Medications Amiodarone HCl (Cordarone -) 200 mg PO DAILY [facility] Last Admin: 06/08/17 09:45 Dose: 200 mg Aspirin (Asa -) 81 mg PO DAILY [facility] Last Admin: 06/08/17 09:45 Dose: 81 mg Diltiazem HCl (Cardizem Cd -) 240 mg PO DAILY [facility] Last Admin: 06/08/17 09:45 Dose: 240 mg Lactobacillus Acidophilus (Bacid -) 1 tab PO DAILY [facility] Last Admin: 06/08/17 09:45 Dose: 1 tab Loperamide HCl (Imodium -) 4 mg PO Q6H PRN PRN Reason: DIARRHEA Last Admin: 06/03/17 17:44 Dose: 4 mg Metoprolol Succinate (Toprol Xl -) 50 mg PO BID [facility] Last Admin: 06/08/17 09:45 Dose: 50 mg Pantoprazole Sodium (Protonix -) 40 mg PO DAILY [facility] Last Admin: 06/08/17 09:45 Dose: 40 mg - Objective Vital Signs: Vital Signs Temperature 98.3 F 06/08/17 09:40 Pulse Rate 101 H 06/08/17 11:55 Respiratory Rate 20 06/08/17 09:40 Blood Pressure 119/60 06/08/17 09:40 O2 Sat by Pulse Oximetry (%) 100 06/08/17 11:55 Labs: CBC, BMP 06/08/17 06:25 06/08/17 06:25 INR, PTT INR 1.96 (0.82-1.09) H D 06/08/17 06:25
--- NOTE | 2017-06-08 13:01 | PN ---
Progress Note, Physician Chief Complaint: No new complaints History of Present Illness: 86yo female with h/o CAD, COPD, LV systolic dysfunction, mitral regurgitation, Persistent atrial fibrillation, recent admission for pneumonia and C diff who was recently discharged after treated for C Diff HCAP present [facility] on 05/29 heath AMS, Hypotention, SOB admitted in ICU for pressurres transfered to floor for further management. - Current Medication List Current Medications: Active Medications Amiodarone HCl (Cordarone -) 200 mg PO DAILY [facility] Last Admin: 06/08/17 09:45 Dose: 200 mg Aspirin (Asa -) 81 mg PO DAILY [facility] Last Admin: 06/08/17 09:45 Dose: 81 mg Diltiazem HCl (Cardizem Cd -) 240 mg PO DAILY [facility] Last Admin: 06/08/17 09:45 Dose: 240 mg Lactobacillus Acidophilus (Bacid -) 1 tab PO DAILY [facility] Last Admin: 06/08/17 09:45 Dose: 1 tab Loperamide HCl (Imodium -) 4 mg PO Q6H PRN PRN Reason: DIARRHEA Last Admin: 06/03/17 17:44 Dose: 4 mg Metoprolol Succinate (Toprol Xl -) 50 mg PO BID [facility] Last Admin: 06/08/17 09:45 Dose: 50 mg Pantoprazole Sodium (Protonix -) 40 mg PO DAILY [facility] Last Admin: 06/08/17 09:45 Dose: 40 mg Warfarin Sodium (Coumadin -) 2.5 mg PO ONCE@1800 ONE Stop: 06/08/17 18:01 - Objective Vital Signs: Vital Signs Temperature 98.3 F 06/08/17 09:40 Pulse Rate 101 H 06/08/17 11:55 Respiratory Rate 20 06/08/17 09:40 Blood Pressure 119/60 06/08/17 09:40 O2 Sat by Pulse Oximetry (%) 100 06/08/17 11:55 Elderly f feels improved c/o teeth pain, no c/o fever, chills or SOB HEENT; Mm moist, mild anemia, PERRLA EOMI NECK; No JVd No Bruit CHEST: Minimal Basal Crepts ABD; Obese, non tender Bs + EXT: + Edema feet, no calf tenderness [employer]; AoX3 non focal Labs: CBC, BMP 06/08/17 06:25 06/08/17 06:25 INR, PTT INR 1.96 (0.82-1.09) H D 06/08/17 06:25 Problem List - Problems (1) Healthcare-associated pneumonia Assessment/Plan: on IV Cefepime and Vancomycin F/U Id Recommendations. F/U Vanco trough Code(s): J18.9 - PNEUMONIA, UNSPECIFIED ORGANISM (2) Sepsis Assessment/Plan: Due to HCAP on IV Cefepime and Vancomycin. trough is 18 F/U Id recommendations. Code(s): A41.9 - SEPSIS, UNSPECIFIED ORGANISM Qualifiers: Sepsis type: sepsis due to unspecified organism Qualified Code(s): A41.9 - Sepsis, unspecified organism (3) Altered mental status Assessment/Plan: Due to sepsis improving Code(s): R41.82 - ALTERED MENTAL STATUS, UNSPECIFIED (4) CHF (NYHA class II, ACC/AHA stage C) Assessment/Plan: Cont current management B blockers off Code(s): I50.9 - HEART FAILURE, UNSPECIFIED (5) Persistent atrial fibrillation Assessment/Plan: On Amiodarone , Diltizem ,and B Blockers, on AC INR 1.9 coumadin 2.5 mg, F/ U INR in am F/U cardiology recommendations. Code(s): I48.1 - PERSISTENT ATRIAL FIBRILLATION (6) CKD stage 4 secondary to hypertension Assessment/Plan: renal functions are stable F/u BMP in am Code(s): I12.9 - HYPERTENSIVE CHRONIC KIDNEY DISEASE W STG 1-4/UNSP CHR KDNY; N18.4 - CHRONIC KIDNEY DISEASE, STAGE 4 (SEVERE)
--- NOTE | 2017-06-08 13:09 | PN ---
Progress Note (short form) - Note Progress Note: PULMONARY AWAKE/ALERT/OOB TO CHAIR USING INCENTIVE VIANEY LESS CHEST CONGESTION DAY #7 VANCO DAY #8 CEFEPIME BLOOD CULTURE + ON 12 STAPH HAEMOLYTICUS VSS/AFEBRILE SPO2 96% 2L/M ANICTERIC/NECROTIC TEETH/GUM DISEASE DIMINISHED B/L BREATH SOUNDS S1S2 BS+ OBESE DECREASED EDEMA LOWER EXT LABS/MEDS/NOTES/CT IMAGES REVIEWED NO NEW LABS TODAY Pneumonia C.Diff s/p Septic Shock Acute on Chronic Renal Failure Lactic Acidosis COPD LV Systolic Dysfunction Mitral Regurgitation Atrial Fibrillation ON A/C target 2.5 - antibiotics adjusted as per ID - continue BP meds - monitor urine output, creatinine - inhaled bronchodilators - O2 to keep Spo2 >90% - rate control - continue anticoagulation /adjust dose accordingly - monitor lytes - DVT prophylaxis - ID follow up Leno PINEDA MD
[2017-06-08] MEDS ORDERED: WARFARIN NA 2.5 MG TABLET (FP) PO ONE (18:00)
[2017-06-08] MEDS: NYSTATIN 100,000 UNIT/GM TOPICAL CREAM 15 GM TUBE TP SCH (22:16)
[2017-06-09 07:37] LABS: EOS % 4.3 % (0-4.5); MCH 30.6 pg (25.7-33.7); MCHC 31.3 g/dl (32.0-36.0); MEAN CELL VOLUME 97.8 fl (80-96); MEAN PLT VOLUME 8.6 fl (7.5-11.1); NEUT % 60.7 % (42.8-82.8); PLATELET COUNT 266 K/MM3 (134-434); RDW 23.6 % (11.6-15.6); WHITE BLOOD COUNT 9.9 K/mm3 (4.0-10.0)
[2017-06-09 07:49] LABS: INR 1.84 (0.82-1.09); PROTHROMBIN TIME (PATIENT) 20.8 SEC (9.98-11.88)
[2017-06-09 08:05] LABS: ANION GAP 3 (8-16); CALCIUM 7.8 mg/dL (8.5-10.1); CO2 29 mmol/L (21-32); CREATININE 2.4 mg/dL (0.55-1.02); GLUCOSE,RANDOM 78 mg/dL (74-106)
[2017-06-09] MEDS: LACTOBACILLUS ACIDOPHILUS 1 EACH TAB (FP) PO SCH (10:02)
[2017-06-09] MEDS: AMIODARONE HCL 200 MG TABLET (FP) PO SCH (10:02)
[2017-06-09] MEDS: PANTOPRAZOLE 40 MG TABLET (FP) PO SCH (10:02)
[2017-06-09] MEDS: ASPIRIN 81 MG CHEWABLE TABLETS PO SCH (10:02)
[2017-06-09] MEDS: METOPROLOL SUCCINATE 50 MG TAB.SR.24H (FP) PO SCH ×2 (10:02→22:52)
[2017-06-09] MEDS: NYSTATIN 100,000 UNIT/GM TOPICAL CREAM 15 GM TUBE TP SCH ×2 (10:03→22:34)
--- NOTE | 2017-06-09 12:49 | PN ---
Progress Note, Physician History of Present Illness: pulonary alert,oob-chair,comfortable,-resp distress - Current Medication List Current Medications: Active Medications Amiodarone HCl (Cordarone -) 200 mg PO DAILY [facility]S [facility] Last Admin: 06/09/17 10:02 Dose: 200 mg Aspirin (Asa -) 81 mg PO DAILY [facility] 234 BEDS AT [facility] Last Admin: 06/09/17 10:02 Dose: 81 mg Diltiazem HCl (Cardizem Cd -) 240 mg PO DAILY [facility] 234 BEDS AT [facility] Last Admin: 06/09/17 10:02 Dose: 240 mg Lactobacillus Acidophilus (Bacid -) 1 tab PO DAILY [facility] 234 BEDS AT [facility] Last Admin: 06/09/17 10:02 Dose: 1 tab Loperamide HCl (Imodium -) 4 mg PO Q6H PRN PRN Reason: DIARRHEA Last Admin: 06/03/17 17:44 Dose: 4 mg Metoprolol Succinate (Toprol Xl -) 50 mg PO BID [facility] 234 BEDS AT [facility] Last Admin: 06/09/17 10:02 Dose: 50 mg Nystatin (Mycostatin Cream -) 1 applic TP BID [facility]CLUDE 234 BEDS AT [facility] Last Admin: 06/09/17 10:03 Dose: 1 applic Pantoprazole Sodium (Protonix -) 40 mg PO DAILY [facility] 234 BEDS AT [facility] Last Admin: 06/09/17 10:02 Dose: 40 mg - Objective Vital Signs: Vital Signs Temperature 97.9 F 06/09/17 10:07 Pulse Rate 84 06/09/17 10:43 Respiratory Rate 20 06/09/17 10:07 Blood Pressure 118/50 06/09/17 10:07 O2 Sat by Pulse Oximetry (%) 92 L 06/09/17 12:05 Constitutional: Yes: Calm, Obese Eyes: Yes: WNL HENT: Yes: WNL Neck: Yes: WNL Cardiovascular: Yes: Pulse Irregular, S1, S2 Respiratory: Yes: Diminished Gastrointestinal: Yes: Normal Bowel Sounds, Soft Extremities: Yes: WNL Edema: No Labs: CBC, BMP 06/09/17 06:05 06/09/17 06:05 INR, PTT INR 1.84 (0.82-1.09) H 06/09/17 06:05 Problem List - Problems (1) C. difficile colitis Code(s): A04.72 - ENTEROCOLITIS D/T CLOSTRIDIUM DIFFICILE, NOT SPCF RECUR (2) Atrial fibrillation with RVR Code(s): I48.91 - UNSPECIFIED ATRIAL FIBRILLATION (3) C. difficile diarrhea Code(s): A04.72 - ENTEROCOLITIS D/T CLOSTRIDIUM DIFFICILE, NOT SPCF RECUR (4) CKD stage G3b/A3, GFR 30-44 and albumin creatinine ratio >300 mg/g Code(s): N18.3 - CHRONIC KIDNEY DISEASE, STAGE 3 (MODERATE) (5) COPD mixed type Code(s): J44.9 - CHRONIC OBSTRUCTIVE PULMONARY DISEASE, UNSPECIFIED (6) Healthcare-associated pneumonia Code(s): J18.9 - PNEUMONIA, UNSPECIFIED ORGANISM Assessment/Plan A/P Pneumonia r/o UTI Septic Shock Acute on Chronic Renal Failure Hyperkalemia Lactic Acidosis COPD LV Systolic Dysfunction Mitral Regurgitation Atrial Fibrillation Diarrhea - continue BP meds - monitor urine output, creatinine - inhaled bronchodilators - O2 to keep Spo2 >90% - rate control - continue anticoagulation - monitor lytes - DVT prophylaxis DR GOMEZ
--- NOTE | 2017-06-09 14:16 | PN ---
Progress Note, Physician History of Present Illness: doing well no issues - Current Medication List Current Medications: Active Medications Amiodarone HCl (Cordarone -) 200 mg PO DAILY [facility] Last Admin: 06/09/17 10:02 Dose: 200 mg Aspirin (Asa -) 81 mg PO DAILY [facility] Last Admin: 06/09/17 10:02 Dose: 81 mg Budesonide/Formoterol Fumarate (Symbicort 80/4.5mcg -) 2 puff IH BID [facility] Diltiazem HCl (Cardizem Cd -) 240 mg PO DAILY [facility] Last Admin: 06/09/17 10:02 Dose: 240 mg Lactobacillus Acidophilus (Bacid -) 1 tab PO DAILY [facility] Last Admin: 06/09/17 10:02 Dose: 1 tab Loperamide HCl (Imodium -) 4 mg PO Q6H PRN PRN Reason: DIARRHEA Last Admin: 06/03/17 17:44 Dose: 4 mg Metoprolol Succinate (Toprol Xl -) 50 mg PO BID [facility] Last Admin: 06/09/17 10:02 Dose: 50 mg Nystatin (Mycostatin Cream -) 1 applic TP BID [facility] Last Admin: 06/09/17 10:03 Dose: 1 applic Pantoprazole Sodium (Protonix -) 40 mg PO DAILY [facility] Last Admin: 06/09/17 10:02 Dose: 40 mg - Objective Vital Signs: Vital Signs Temperature 97.9 F 06/09/17 10:07 Pulse Rate 84 06/09/17 10:43 Respiratory Rate 20 06/09/17 10:07 Blood Pressure 118/50 06/09/17 10:07 O2 Sat by Pulse Oximetry (%) 92 L 06/09/17 12:05 Constitutional: Yes: No Distress, Calm Cardiovascular: Yes: Pulse Irregular Respiratory: Yes: Regular, On Nasal O2, Poor Air Entry Gastrointestinal: Yes: Normal Bowel Sounds, Soft Musculoskeletal: Yes: WNL Extremities: Yes: WNL Neurological: Yes: Alert, Oriented Psychiatric: Yes: Alert, Oriented Labs: CBC, BMP 06/09/17 06:05 06/09/17 06:05 INR, PTT INR 1.84 (0.82-1.09) H 06/09/17 06:05 Assessment/Plan Problem List - Problems (1) Atrial fibrillation with RVR Code(s): I48.91 - UNSPECIFIED ATRIAL FIBRILLATION (2) C. difficile diarrhea Code(s): A04.72 - ENTEROCOLITIS D/T CLOSTRIDIUM DIFFICILE, NOT SPCF RECUR (3) CHF (NYHA class II, ACC/AHA stage C) Code(s): I50.9 - HEART FAILURE, UNSPECIFIED (4) CKD stage 4 secondary to hypertension Code(s): I12.9 - HYPERTENSIVE CHRONIC KIDNEY DISEASE W STG 1-4/UNSP CHR KDNY; N18.4 - CHRONIC KIDNEY DISEASE, STAGE 4 (SEVERE) (5) Leukocytosis Code(s): D72.829 - ELEVATED WHITE BLOOD CELL COUNT, UNSPECIFIED plan continue current mgmt stop cefepime rest as per primary team
--- NOTE | 2017-06-09 14:27 | PN ---
Progress Note, Physician History of Present Illness: Feels the same Case discussed with Dr Rinaldi ,IV antibiotcs stopped to day - Current Medication List Current Medications: Active Medications Amiodarone HCl (Cordarone -) 200 mg PO DAILY [facility] Last Admin: 06/09/17 10:02 Dose: 200 mg Aspirin (Asa -) 81 mg PO DAILY [facility] Last Admin: 06/09/17 10:02 Dose: 81 mg Budesonide/Formoterol Fumarate (Symbicort 80/4.5mcg -) 2 puff IH BID [facility] Diltiazem HCl (Cardizem Cd -) 240 mg PO DAILY [facility] Last Admin: 06/09/17 10:02 Dose: 240 mg Lactobacillus Acidophilus (Bacid -) 1 tab PO DAILY [facility] Last Admin: 06/09/17 10:02 Dose: 1 tab Loperamide HCl (Imodium -) 4 mg PO Q6H PRN PRN Reason: DIARRHEA Last Admin: 06/03/17 17:44 Dose: 4 mg Metoprolol Succinate (Toprol Xl -) 50 mg PO BID [facility] Last Admin: 06/09/17 10:02 Dose: 50 mg Nystatin (Mycostatin Cream -) 1 applic TP BID [facility] Last Admin: 06/09/17 10:03 Dose: 1 applic Pantoprazole Sodium (Protonix -) 40 mg PO DAILY [facility] Last Admin: 06/09/17 10:02 Dose: 40 mg - Objective Vital Signs: Vital Signs Temperature 97.9 F 06/09/17 10:07 Pulse Rate 84 06/09/17 10:43 Respiratory Rate 20 06/09/17 10:07 Blood Pressure 118/50 06/09/17 10:07 O2 Sat by Pulse Oximetry (%) 92 L 06/09/17 12:05 Constitutional: Yes: No Distress Eyes: Yes: WNL HENT: Yes: WNL Neck: Yes: WNL Respiratory: Yes: On Nasal O2 Gastrointestinal: Yes: Normal Bowel Sounds ...Rectal Exam: Yes: Deferred Genitourinary: Yes: WNL Edema: Yes Edema: LLE: Trace, RLE: Trace Neurological: Yes: Alert Labs: CBC, BMP 06/09/17 06:05 06/09/17 06:05 INR, PTT INR 1.84 (0.82-1.09) H 06/09/17 06:05 Assessment/Plan Coumadin ordered
[2017-06-09] MEDS: BUDESONIDE/FORMETEROL FUMARATE 80/4.5 mcg INHALER IH SCH ×2 (15:41→22:33)
[2017-06-09] MEDS ORDERED: WARFARIN NA 3 MG TABLET PO SCH (18:00)
--- NOTE | 2017-06-09 19:23 | PN ---
Progress Note (short form) - Note Progress Note: 86 year old female, known case of CAD, angina pectoris, COPD, persistent atrial flutter with moderate ventricular response, hypertension, Resting comfortably, no SOB, chest pain or ciscomfort. No palpitations. Active Medications Generic Name Dose Route Start Last Admin Trade Name Freq PRN Reason Stop Dose Admin Amiodarone HCl 200 mg 06/03/17 10:00 06/09/17 10:02 Cordarone - PO 200 mg DAILY MALIK Administration Aspirin 81 mg 06/01/17 10:00 06/09/17 10:02 Asa - PO 81 mg DAILY [facility] Administration Budesonide/Formoterol Fumarate 2 puff 06/09/17 13:00 06/09/17 15:41 Symbicort 80/4.5mcg - IH 2 puff BID MALIK Administration Diltiazem HCl 240 mg 06/01/17 10:00 06/09/17 10:02 Cardizem Cd - PO 240 mg DAILY [facility] Administration Lactobacillus Acidophilus 1 tab 05/31/17 14:15 06/09/17 10:02 Bacid - PO 1 tab DAILY [facility] Administration Loperamide HCl 4 mg 06/03/17 15:35 06/03/17 17:44 Imodium - PO 4 mg Q6H PRN Administration DIARRHEA Metoprolol Succinate 50 mg 06/02/17 22:45 06/09/17 10:02 Toprol Xl - PO 50 mg BID [facility]IK Administration Nystatin 1 applic 06/08/17 22:00 06/09/17 10:03 Mycostatin Cream - TP 1 applic BID [facility]IK Administration Pantoprazole Sodium 40 mg 06/01/17 10:00 06/09/17 10:02 Protonix - PO 40 mg DAILY [facility] Administration Warfarin Sodium 3 mg 06/09/17 18:00 06/09/17 18:01 Coumadin - PO 3 mg DAILY@1800 MALIK Administration O: Patient was in no distress, mild pallor, no cyanosis, clubbing or jaundice. Last Vital Signs Temp Pulse Resp BP Pulse Ox 97.8 F 69 irregular. 20 100/38 92 L 06/09/17 15:07 06/09/17 15:07 06/09/17 15:07 06/09/17 15:07 06/09/17 12:05 NECK: Supple, no JVD, carotids 2+, no bruits. HEART: PMI in the 5th ICS, no heaves or thrills. Distant heart sounds, no murmur or gallops heard. LUNGS: Clear. ABDOMEN: Soft, nontender, no organomegaly or masses. EXTREMITIES: No calf tenderness or dependent edema. CBC, BMP 06/09/17 06:05 06/09/17 06:05 IMPRESSION: 1. Persistent Atrial flutter with moderate ventricular response. 2. CAD/angina pectoris. 3. COPD. 4. Hypertension. 5. CKD. RECOMMENDATIONS: 1. Continue current treatment. 2. Progressive ambulation.
[2017-06-09] MEDS ORDERED: PT OWN MED DRAWER 7, Y5N ONE (21:31)
[2017-06-10 08:16] LABS: INR 1.69 (0.82-1.09); PROTHROMBIN TIME (PATIENT) 19.1 SEC (9.98-11.88)
[2017-06-10] MEDS: PANTOPRAZOLE 40 MG TABLET (FP) PO SCH (10:32)
[2017-06-10] MEDS: AMIODARONE HCL 200 MG TABLET (FP) PO SCH (10:32)
[2017-06-10] MEDS: METOPROLOL SUCCINATE 50 MG TAB.SR.24H (FP) PO SCH (10:32)
[2017-06-10] MEDS: LACTOBACILLUS ACIDOPHILUS 1 EACH TAB (FP) PO SCH (10:32)
[2017-06-10] MEDS: NYSTATIN 100,000 UNIT/GM TOPICAL CREAM 15 GM TUBE TP SCH (10:33)
[2017-06-10] MEDS: BUDESONIDE/FORMETEROL FUMARATE 80/4.5 mcg INHALER IH SCH (10:33)
[2017-06-10] MEDS: ASPIRIN 81 MG CHEWABLE TABLETS PO SCH (10:33)
--- NOTE | 2017-06-10 11:14 | DS ---
Physical Examination Vital Signs: Vital Signs Temperature 97.6 F 06/10/17 06:00 Pulse Rate 96 H 06/10/17 06:00 Respiratory Rate 20 06/10/17 06:00 Blood Pressure 110/68 06/10/17 06:00 O2 Sat by Pulse Oximetry (%) 92 L 06/09/17 21:00 Findings/Remarks: admitted with sepsis ,blood culture grew Staph ,treated with IV antibiotics Echo normal ,pneumonia improved,UTI and Cdif diarrhea improved Constitutional: Yes: Anxious Eyes: Yes: WNL HENT: Yes: WNL Neck: Yes: WNL Cardiovascular: Yes: WNL Respiratory: Yes: WNL, Stridor ...Rectal Exam: Yes: Deferred Breast(s): Yes: WNL Musculoskeletal: Yes: WNL Edema: No Neurological: Yes: Alert Psychiatric: Yes: Alert Labs: CBC, BMP 06/09/17 06:05 06/09/17 06:05 Discharge Summary Reason For Visit: COLITIS DUE TO CLOSTRIDIUM DIFFCILE Current Active Problems C. difficile colitis (Acute) Sepsis (Acute) - Instructions Referrals: Ira Cho MD [Primary Care Provider] - - Home Medications Comprehensive Discharge Medication List: Ambulatory Orders Diltiazem HCl [Cartia Xt] 240 mg PO DAILY 01/18/17 Isosorbide Mononitrate [Isosorbide Mononitrate ER] 30 mg PO DAILY 01/18/17 Losartan Potassium 50 mg PO DAILY 01/18/17 Albuterol 0.083% Nebulizer Madhavi [Ventolin 0.083% Nebulizer Soln -] 1 neb NEB Q6H 04/21/17 Albuterol Sulfate [Proair Respiclick] 90 mcg IH DAILY 04/21/17 Promethazine HCl [Phenergan Plain 6.25 MG/5 ML -] 10 ml PO TID 04/21/17 Nitrofurantoin Macrocrystal [Nitrofurantoin] 100 mg PO BID 04/22/17 Oxycodone HCl [Roxicodone -] 5 mg PO Q6H PRN 04/22/17 Amiodarone HCl [Cordarone -] 200 mg PO BID tablet 05/05/17 Ascorbic Acid [Vitamin C -] 500 mg PO DAILY tablet 05/05/17 Aspirin [ASA -] 81 mg PO DAILY tab.chew 05/05/17 Cholecalciferol (Vitamin D3) [Vitamin D3 -] 5,000 unit PO DAILY tab 05/05/17 Ranitidine [Zantac -] 150 mg PO DAILY tablet 05/05/17 Salmeterol/Fluticasone [Advair 100Mcg/50Mcg -] 1 puff IH BID inhaler 05/05/17 Guaifenesin Dm [Robitussin Dm -] 10 ml PO Q4H PRN cup 05/27/17 Metoprolol Succinate [Toprol XL -] 100 mg PO BID tab.sr.24h 05/27/17 Pantoprazole Sodium [Protonix -] 40 mg PO DAILY tablet.ec 05/27/17 Vancomycin Oral Solution 125 mg PO Q6HPO ml 05/27/17 Warfarin Na [Coumadin -] 3 mg PO DAILY@1800 tablet 05/27/17
[2017-06-10 12:14] VITALS: BP 116/68; PULSE 97; TEMP 98
--- NOTE | 2017-06-10 17:06 | PN ---
Progress Note, Physician History of Present Illness: evens noted history noted patient improving on vanco and cefepime - Objective Vital Signs: Vital Signs Temperature 98 F 06/10/17 10:00 Pulse Rate 97 H 06/10/17 10:00 Respiratory Rate 20 06/10/17 10:00 Blood Pressure 116/68 06/10/17 10:00 O2 Sat by Pulse Oximetry (%) 95 06/10/17 09:00 Constitutional: Yes: No Distress, Calm Cardiovascular: Yes: Pulse Irregular Respiratory: Yes: Regular, Poor Air Entry Gastrointestinal: Yes: Normal Bowel Sounds, Soft Musculoskeletal: Yes: WNL Extremities: Yes: WNL Neurological: Yes: Alert, Oriented Psychiatric: Yes: Alert, Oriented Labs: CBC, BMP 06/09/17 06:05 06/09/17 06:05 INR, PTT INR 1.69 (0.82-1.09) H 06/10/17 06:00 Assessment/Plan Problem List - Problems (1) Atrial fibrillation with RVR Code(s): I48.91 - UNSPECIFIED ATRIAL FIBRILLATION (2) C. difficile diarrhea Code(s): A04.72 - ENTEROCOLITIS D/T CLOSTRIDIUM DIFFICILE, NOT SPCF RECUR (3) CHF (NYHA class II, ACC/AHA stage C) Code(s): I50.9 - HEART FAILURE, UNSPECIFIED (4) CKD stage 4 secondary to hypertension Code(s): I12.9 - HYPERTENSIVE CHRONIC KIDNEY DISEASE W STG 1-4/UNSP CHR KDNY; N18.4 - CHRONIC KIDNEY DISEASE, STAGE 4 (SEVERE) (5) Leukocytosis Code(s): D72.829 - ELEVATED WHITE BLOOD CELL COUNT, UNSPECIFIED plan continue abx for now will start tapering abx hold [facility] level high
--- NOTE | 2017-06-10 17:10 | PN ---
Progress Note, Physician History of Present Illness: stable no complaints just tiredness weakness - Objective Vital Signs: Vital Signs Temperature 98 F 06/10/17 10:00 Pulse Rate 97 H 06/10/17 10:00 Respiratory Rate 20 06/10/17 10:00 Blood Pressure 116/68 06/10/17 10:00 O2 Sat by Pulse Oximetry (%) 95 06/10/17 09:00 Constitutional: Yes: No Distress, Calm Respiratory: Yes: Regular, On Nasal O2 Gastrointestinal: Yes: Normal Bowel Sounds, Soft Musculoskeletal: Yes: WNL Extremities: Yes: WNL Neurological: Yes: Alert, Oriented Psychiatric: Yes: Alert, Oriented Labs: CBC, BMP 06/09/17 06:05 06/09/17 06:05 INR, PTT INR 1.69 (0.82-1.09) H 06/10/17 06:00 Assessment/Plan Problem List - Problems (1) Atrial fibrillation with RVR Code(s): I48.91 - UNSPECIFIED ATRIAL FIBRILLATION (2) C. difficile diarrhea Code(s): A04.72 - ENTEROCOLITIS D/T CLOSTRIDIUM DIFFICILE, NOT SPCF RECUR (3) CHF (NYHA class II, ACC/AHA stage C) Code(s): I50.9 - HEART FAILURE, UNSPECIFIED (4) CKD stage 4 secondary to hypertension Code(s): I12.9 - HYPERTENSIVE CHRONIC KIDNEY DISEASE W STG 1-4/UNSP CHR KDNY; N18.4 - CHRONIC KIDNEY DISEASE, STAGE 4 (SEVERE) (5) Leukocytosis Code(s): D72.829 - ELEVATED WHITE BLOOD CELL COUNT, UNSPECIFIED plan will stop vanco continue cefepime can stop cefepime tomorrow rest as per primary team
== END 2017-06-10 12:27 | DRG 871 ==
LOC: JER 22:22 → JERBED 05-29 01:18 → UNDOADMIN 05-29 02:18 → JERBED 05-29 02:18 → JICU 05-29 10:51 → J4S 05-31 16:26
PROVIDERS: ADMIT Internal Medicine; ATTEND Internal Medicine
PROC: 05HM33Z Insertion of Infusion Device into Right Internal Jugular Vein, Percutaneous Approach (ICD-10-PCS; principal; 2017-05-29)
DX: A41.2 Sepsis due to unspecified staphylococcus (principal); J18.9 Pneumonia, unspecified organism; R65.21 Severe sepsis with septic shock; N39.0 Urinary tract infection, site not specified; A04.72 Enterocolitis due to Clostridium difficile, not specified as recurrent; I48.92 Unspecified atrial flutter; N18.4 Chronic kidney disease, stage 4 (severe); E87.2 Acidosis; N17.9 Acute kidney failure, unspecified; I25.119 Atherosclerotic heart disease of native coronary artery with unspecified angina pectoris; J44.9 Chronic obstructive pulmonary disease, unspecified; I12.9 Hypertensive chronic kidney disease with stage 1 through stage 4 chronic kidney disease, or unspecified chronic kidney disease; D72.829 Elevated white blood cell count, unspecified; E87.5 Hyperkalemia; I34.0 Nonrheumatic mitral (valve) insufficiency; I48.91 Unspecified atrial fibrillation; E66.9 Obesity, unspecified; Z68.38 Body mass index [BMI] 38.0-38.9, adult
CPT/HCPCS: 36415; 71010-TC; 71250-TC; 80048; 80053; 80299; 81003; 81015; 82550; 83605; 83735; 83880; 84100; 84439; 84443; 84481; 84484; 85025; 85027; 85610; 85730; 87040; 87045; 87046; 87070; 87086; 87177; 87186; 87205; 87209; 87324; 87449; 93005; 93010; 94010; 94640; 97116-GP; 97161-GP; 99285-25; G0480

== ENCOUNTER 2017-06-11 16:47 | Inpatient (IN) | payer OTHER, MEDICARE ==
[2017-06-11] MEDS ORDERED: morphine CARPU-JECT 10 MG/1 ML DISP.SYRIN ONE (17:04)
[2017-06-11] MEDS ORDERED: RAPID SEQUENCE INTUBATION KIT NR ONE (17:04)
[2017-06-11] MEDS ORDERED: VANCOMYCIN 1,000 MG in DEXTROSE 5%-WATER - 250 ML IVPB ONE (17:29)
[2017-06-11] MEDS ORDERED: morphine CARPU-JECT 2 MG/1 ML DISP.SYRIN IVPUSH ONE (17:29)
[2017-06-11] MEDS ORDERED: ETOMIDATE 40 MG/20 ML VIAL IVPUSH ONE (17:29)
[2017-06-11] MEDS ORDERED: FUROSEMIDE 100 MG/10 ML INJECTABLE VIAL IVPB ONE (17:29)
[2017-06-11] MEDS ORDERED: SUCCINYLCHOLINE CHLORIDE 200 MG/10 ML VIAL IVPUSH ONE (17:29)
[2017-06-11] MEDS ORDERED: MEROPENEM 1,000 MG in DEXTROSE 5%-WATER - 100 ML IVPB ONE (17:29)
[2017-06-11] MEDS ORDERED: ROCURONIUM BROMIDE 50 MG/5 ML VIAL IV ONE (17:29)
--- NOTE | 2017-06-11 17:32 | PDOC ---
History of Present Illness - General Chief Complaint: Respiratory Stated Complaint: Congestive Heart Failure Time Seen by Provider: 06/11/17 17:30 - History of Present Illness Initial Comments: 06/11/17 18:27 The patient is a 86 year old female with a history of CHF, COPD, CAD, HTN, HLD, diverticulitis who presents from custodial with acute respiratory distress. The patient was recently discharged from the hospital for sepsis and pneumonia 1 day prior to presentation. Since discharge, the patient has been experiencing increased difficulty breathing eventually presenting in respiratory distress with an O2 saturation of 84% on Bipap. Patient reports difficulty breathing and is unable to communicate due to her respiratory distress. Past History - Past Medical History Allergies/Adverse Reactions: Allergies Allergy/AdvReac Type Severity Reaction Status Date / Time Penicillins Allergy Verified 05/28/17 22:39 procaine Allergy Verified 05/28/17 22:39 Home Medications: Ambulatory Orders Isosorbide Mononitrate [Isosorbide Mononitrate ER] 30 mg PO DAILY 01/18/17 Losartan Potassium 50 mg PO DAILY 01/18/17 Albuterol 0.083% Nebulizer Madhavi [Ventolin 0.083% Nebulizer Soln -] 1 neb NEB Q6H 04/21/17 Albuterol Sulfate [Proair Respiclick] 90 mcg IH DAILY 04/21/17 Promethazine HCl [Phenergan Plain 6.25 MG/5 ML -] 10 ml PO TID 04/21/17 Nitrofurantoin Macrocrystal [Nitrofurantoin] 100 mg PO BID 04/22/17 Oxycodone HCl [Roxicodone -] 5 mg PO Q6H PRN 04/22/17 Amiodarone HCl [Cordarone -] 200 mg PO BID tablet 05/05/17 Ascorbic Acid [Vitamin C -] 500 mg PO DAILY tablet 05/05/17 Aspirin [ASA -] 81 mg PO DAILY tab.chew 05/05/17 Cholecalciferol (Vitamin D3) [Vitamin D3 -] 5,000 unit PO DAILY tab 05/05/17 Ranitidine [Zantac -] 150 mg PO DAILY tablet 05/05/17 Salmeterol/Fluticasone [Advair 100Mcg/50Mcg -] 1 puff IH BID inhaler 05/05/17 Guaifenesin Dm [Robitussin Dm -] 10 ml PO Q4H PRN cup 05/27/17 Metoprolol Succinate [Toprol XL -] 100 mg PO BID tab.sr.24h 05/27/17 Pantoprazole Sodium [Protonix -] 40 mg PO DAILY tablet.ec 05/27/17 Diltiazem Cd [Cardizem Cd -] 240 mg PO DAILY cap.cd.24h 06/10/17 Lactobacillus Acidophilus [Bacid -] 1 tab PO DAILY tab 06/10/17 Warfarin Na [Coumadin -] 3 mg PO DAILY@1800 tablet 06/10/17 Anemia: No Asthma: Yes Cancer: No Cardiac Disorders: Yes (ASHD, cardiac arrythmia) CVA: No COPD: Yes CHF: Yes Dementia: No Diabetes: Yes GI Disorders: No Disorders: No HTN: Yes Hypercholesterolemia: Yes Liver Disease: No Seizures: No Thyroid Disease: No - Surgical History Abdominal Surgery: Yes (hiatal hernia repair) Appendectomy: No Cardiac Surgery: No Cholecystectomy: No Lung Surgery: No Neurologic Surgery: No Orthopedic Surgery: Yes (erendira hip) - Immunization History Immunization Up to Date: Yes - Suicide/Smoking/Psychosocial Hx Smoking Status: No Smoking History: Unknown if ever smoked Have you smoked in the past 12 months: No Number of Cigarettes Smoked Daily: 0 If you are a former smoker, when did you quit?: many years Information on smoking cessation initiated: No Hx Alcohol Use: No Drug/Substance Use Hx: No Substance Use Type: None Hx Substance Use Treatment: No Review of Systems - Review of Systems Able to Perform ROS?: No (Respiratory distress) *Physical Exam - Vital Signs Last Vital Signs Temp Pulse Resp BP Pulse Ox 87 30 H 138/102 88 L 06/11/17 17:20 06/11/17 17:20 06/11/17 17:20 06/11/17 17:20 - Physical Exam Comments: 06/11/17 18:35 General Appearance: Nourished. In Severe Respiratory Distress HEENT: EOMI, SEB. No Pharyngeal Erythema, Tonsillar Exudate, Tonsillar Erythema Neck: No Cervical Lymphadenopathy Respiratory/Chest: Poor Air movement. Diffuse crackles noted on exam. Cardiovascular: Regular Rhythm, Regular Rate. No Gallops, Rubs Gastrointestinal/Abdominal: Normal Bowel Sounds, Soft. No Guarding, Rebound, Tenderness Musculoskeletal: No CVA Tenderness Extremity: Bilateral lower extremity edema noted on exam. Normal Capillary Refill Integumentary: Normal Color, Dry, Warm Neurologic: Fully Oriented, Alert, Normal Mood/Affect, Normal Response, Procedures - Intubation Time of Intubation: 17:15 Intubation Method: orotracheal Blade used: Mac Tube Size (Fr): 7.0 Medications: Etomidate, Morphine, Rocuronium, Succinylcholine Tube position @ lip (cm): 22 Tube position confirmed by: Direct visualization, CO2 detector, Chest x-ray, Breath sounds Breath Sounds after Intubation: equal Intubation Complications: no complications Post Intubation Xray: Yes ED Treatment Course - LABORATORY CBC & Chemistry Diagram: 06/12/17 06:50 06/12/17 06:50 Medical Decision Making - Critical Care Time Total Critical Care Time (minutes): 60 Critical Care Statement: The care of this patient involved high complexity decision making to prevent further life threatening deterioration of the patient 's condition and/or to evaluate & treat vital organ system(s) failure or risk of failure. - Medical Decision Making 06/11/17 18:39 The patient is a 86 year old female with a history of CHF, COPD, CAD, HTN, HLD, diverticulitis who presents from custodial with acute respiratory distress. Patient presented in severe respiratory distress likely due to either an acute chf exacerbation or unresolved pneumonia and sepsis. The patient was intubated in the ED to improve her respiratory distress and is now having O2 saturations of 95%. We discussed the case with the ICU team who accepted the patient to ICU. We discussed the case with Dr. Rinaldi who will provide antibiotic recs. We discussed the case with Dr. Cho who accepted the patient for admission. We have given 100mg of Lasix for diuresis. We will continue to monitor and reassess the patient while in the ED. 06/11/17 18:47 Patient's BP is 60s systolic after sedation. We will treat with a 250ml bolus and 2mg of ativan for further sedation. Propofal drip has been stopped. *DC/Admit/Observation/Transfer Diagnosis at time of Disposition: CHF (NYHA class II, ACC/AHA stage C), Respiratory distress, acute Sepsis Qualifiers: Sepsis type: sepsis due to unspecified organism Qualified Code(s): A41.9 - Sepsis, unspecified organism - Discharge Dispostion Condition at time of disposition: Critical Admit: Yes - Referrals - Patient Instructions - Post Discharge Activity
--- NOTE | 2017-06-11 17:37 | CON.ID ---
Consult Consult Specialty:: infectious diseases Reason for Consultation:: pna,resp failure - History of Present Illness Chief Complaint: patient intubated History of Present Illness: thgis patient who was just discharged from the hospital about a day back after complete treatment of pneumonia and resp failure is back in the hospital and intubated patient well known to me 86 year old female with a history of CHF, COPD, CAD, HTN, HLD, diverticulitis who brought in from [place] with acute respiratory distress. thought process is that patient went into flash pul edema and probably again developed pna and became hypoxic daughter present discussed the case with the daughter - History Source History Provided By: Family Member - Past Medical History Cardio/Vascular: Yes: CAD, HTN, Hyperlipdemia Pulmonary: Yes: COPD Gastrointestinal: Yes: Diverticulitis, Diverticulosis, Other (ischemic colitis, h/o colon polyps) - Past Surgical History Past Surgical History: Yes: None, Appendectomy, Colectomy (partial colectomy for perforation from ? diverticulitis/ischemic colitis), Hysterectomy (JW/BSO) - Alcohol/Substance Use Hx Alcohol Use: No History of Substance Use: reports: None - Smoking History Smoking history: Unknown if ever smoked Have you smoked in the past 12 months: No Aproximately how many cigarettes per day: 0 If you are a former smoker, when did you quit?: many years - Social History Usual Living Arrangement: With Child ADL: Family Assistance History of Recent Travel: No Home Medications - Allergies Allergies/Adverse Reactions: Allergies Allergy/AdvReac Type Severity Reaction Status Date / Time Penicillins Allergy Verified 05/28/17 22:39 procaine Allergy Verified 05/28/17 22:39 - Home Medications Home Medications: Ambulatory Orders Isosorbide Mononitrate [Isosorbide Mononitrate ER] 30 mg PO DAILY 01/18/17 Losartan Potassium 50 mg PO DAILY 01/18/17 Albuterol 0.083% Nebulizer Madhavi [Ventolin 0.083% Nebulizer Soln -] 1 neb NEB Q6H 04/21/17 Albuterol Sulfate [Proair Respiclick] 90 mcg IH DAILY 04/21/17 Promethazine HCl [Phenergan Plain 6.25 MG/5 ML -] 10 ml PO TID 04/21/17 Nitrofurantoin Macrocrystal [Nitrofurantoin] 100 mg PO BID 04/22/17 Oxycodone HCl [Roxicodone -] 5 mg PO Q6H PRN 04/22/17 Amiodarone HCl [Cordarone -] 200 mg PO BID tablet 05/05/17 Ascorbic Acid [Vitamin C -] 500 mg PO DAILY tablet 05/05/17 Aspirin [ASA -] 81 mg PO DAILY tab.chew 05/05/17 Cholecalciferol (Vitamin D3) [Vitamin D3 -] 5,000 unit PO DAILY tab 05/05/17 Ranitidine [Zantac -] 150 mg PO DAILY tablet 05/05/17 Salmeterol/Fluticasone [Advair 100Mcg/50Mcg -] 1 puff IH BID inhaler 05/05/17 Guaifenesin Dm [Robitussin Dm -] 10 ml PO Q4H PRN cup 05/27/17 Metoprolol Succinate [Toprol XL -] 100 mg PO BID tab.sr.24h 05/27/17 Pantoprazole Sodium [Protonix -] 40 mg PO DAILY tablet.ec 05/27/17 Diltiazem Cd [Cardizem Cd -] 240 mg PO DAILY cap.cd.24h 06/10/17 Lactobacillus Acidophilus [Bacid -] 1 tab PO DAILY tab 06/10/17 Warfarin Na [Coumadin -] 3 mg PO DAILY@1800 tablet 06/10/17 Family Disease History - Family Disease History Family Disease History: CA: Son (colon ca) Review of Systems Unable to obtain ROS, reason: unable to obtain--intubat Physical Exam Vital Signs: Vital Signs Temperature Pulse Rate 87 06/11/17 17:20 Respiratory Rate 30 H 06/11/17 17:20 Blood Pressure 138/102 06/11/17 17:20 O2 Sat by Pulse Oximetry (%) 88 L 06/11/17 17:20 Constitutional: Yes: Other Eyes: Yes: Conjunctiva Clear Neck: Yes: Supple, Trachea Midline Cardiovascular: Yes: Tachycardia, Pulse Irregular Respiratory: Yes: Intubated, Mechanically Ventilated Gastrointestinal: Yes: Normal Bowel Sounds, Soft Musculoskeletal: Yes: WNL Extremities: Yes: WNL Neurological: Yes: Other Psychiatric: Yes: Other Assessment/Plan 86 year old female with PMH of CHF, COPD, CAD, HTN, HLD, diverticulitis, and recent ICU admission for sepsis 2/2 PNA presenting from [place] in acute respiratory distress readmitted to ICU for hypoxic respiratory failure 2/2 recurrent PNA c/ b CHF exacerbation, now intubated but improving. Plan: hypoxic resp failure pna septic shock lactic acidosis chf acute on chronic renal failure plan will start patient on vanco and meropenam adjusting to renal dose will await for all cx if negative will stop vanco continue pressor support close monitorin rest as per icu cc time 45 min
[2017-06-11] MEDS ORDERED: PROPOFOL 1,000,000 MCG/100 ML VIAL ONE (17:42)
[2017-06-11] MEDS ORDERED: PROPOFOL 1,000,000 MCG/100 ML VIAL IVPB SCH (17:45)
--- NOTE | 2017-06-11 17:52 | PDOC ---
Attending Attestation - Resident Resident Name: Curt Miller - ED Attending Attestation I have performed the following: I have examined & evaluated the patient, The case was reviewed & discussed with the resident, I agree w/resident's findings & plan, Exceptions are as noted - HPI HPI: 06/11/17 17:51 Flash Pulmonary Edema - Physicial Exam PE: 06/11/17 17:51 In Extremis, BiPAP not enough D/W Patient and Daughter, Intubation and Life Support OK - Medical Decision Making 06/11/17 17:52 I, Dr. Garett Haines, attest that this document has been prepared under my direction and personally reviewed by me in its entirety. I further attest, that it accurately reflects all work, treatment, procedures and medical decision -making performed by me. <Garett Haines - Last Filed: 06/11/17 17:51> - Medical Decision Making 06/11/17 17:[address] Baumann, who accepted the patient to ICU. Spoke with Dr. Ira Cho, who accepted the patient for admission. <Davis Crowe - Last Filed: 06/11/17 17:58>
[2017-06-11] MEDS ORDERED: MEROPENEM 500 MG PUSH 500 MG/10 ML DISP.SYRIN IVPUSH SCH (18:00)
[2017-06-11] MEDS ORDERED: MEROPENEM 500 MG VIAL (RESTRICTED TO ID) IVPB SCH (18:00)
[2017-06-11 18:27] LABS: BASO % 0.2 % (0-2.0); EOS % 0.8 % (0-4.5); HEMATOCRIT 30.5 % (32.4-45.2); HEMOGLOBIN 9.5 GM/dL (10.7-15.3); LYMPH % 3.8 % (8-40); MCH 30.9 pg (25.7-33.7); MCHC 31.2 g/dl (32.0-36.0); MEAN CELL VOLUME 99.1 fl (80-96); MEAN PLT VOLUME 8.7 fl (7.5-11.1); MONO % 2.6 % (3.8-10.2); NEUT % 92.6 % (42.8-82.8); PLATELET COUNT 332 K/MM3 (134-434); RBC 3.08 M/mm3 (3.60-5.2); RDW 22.6 % (11.6-15.6)
[2017-06-11 18:30] LABS: ADD RBC MORPHOLOGY YES
[2017-06-11] MEDS ORDERED: FUROSEMIDE 40 MG/4 ML INJECTABLE VIAL ONE (18:37)
[2017-06-11] MEDS ORDERED: LORazepam 2 MG/ML SDV VIAL ONE (18:48)
[2017-06-11 18:54] LABS: ALBUMIN 2.3 g/dl (3.4-5.0); ANION GAP 9 (8-16); BILIRUBIN,TOTAL 0.4 mg/dL (0.2-1.0); BLOOD UREA NITROGEN 33 mg/dL (7-18); CALCIUM 7.9 mg/dL (8.5-10.1); CHLORIDE 111 mmol/L (98-107); CO2 23 mmol/L (21-32); CREATININE 2.6 mg/dL (0.55-1.02); GLUCOSE,RANDOM 81 mg/dL (74-106); POTASSIUM 4.7 mmol/L (3.5-5.1); SGOT/AST 19 U/L (15-37); SGPT/ALT 24 U/L (12-78); SODIUM 143 mmol/L (136-145); TOT PROT 6.7 g/dl (6.4-8.2)
[2017-06-11 18:57] LABS: ALK PHOS 58 U/L (45-117); N-TERMINAL BNP 10933.63 pg/ml (5-450)
[2017-06-11 18:58] LABS: INR 1.91 (0.82-1.09); PROTHROMBIN TIME (PATIENT) 21.6 SEC (9.98-11.88)
[2017-06-11] MEDS ORDERED: SODIUM CHLORIDE 250 ML IV STA ×2 (19:01→20:52)
[2017-06-11] MEDS ORDERED: MEROPENEM 1 GM PUSH 1 GM/20 ML DISP.SYRIN IVPUSH ONE (19:15)
[2017-06-11] MEDS ORDERED: VANCOMYCIN 1 GRAM (PRE-DOCKED) 1,000 MG/250 ML BAG IVPB ONE (19:21)
[2017-06-11 19:48] LABS: ANISOCYTOSIS 2+; PLATELET ESTIMATE ADEQUATE
[2017-06-11 21:15] LABS: URINE APPEARANCE CLOUDY; URINE BILIRUBIN NEGATIVE (NEGATIVE); URINE BLOOD NEGATIVE (NEGATIVE); URINE COLOR YELLOW; URINE GLUCOSE (UA) NEGATIVE (NEGATIVE); URINE KETONE NEGATIVE (NEGATIVE); URINE NITRITE NEGATIVE (NEGATIVE); URINE UROBILINOGEN NEGATIVE mg/dL (0.2-1.0)
[2017-06-11 21:16] LABS: URINE PROTEIN 1+ (NEGATIVE)
[2017-06-11 21:17] LABS: URINE LEUK ESTERASE 1+ (NEGATIVE)
[2017-06-11 21:18] LABS: EPI CELLS RARE /HPF (FEW); URINE BACTERIA RARE /hpf (NONE SEEN); URINE HYALINE CAST 1 /lpf; URINE MUCUS RARE; YEAST FEW
[2017-06-11 22:35] LABS: ARTERIAL BLD GAS O2 SATURATION 89.6 % (90-98.9); ARTERIAL BLOOD GAS BASE EXCESS -2.7 meq/l (-2-2); ARTERIAL BLOOD GAS PCO2 42.9 mmHg (35-45); ARTERIAL BLOOD GAS pH 7.34 (7.35-7.45)
[2017-06-11 22:40] LABS: ALLENS TEST POSITIVE
--- NOTE | 2017-06-11 22:46 | CONSULT ---
Consult Consult Specialty:: Pulm/CCM Reason for Consultation:: Hypoxic respiratory failure requiring intubation - History of Present Illness History of Present Illness: 86 year old female with a history of CHF, COPD, CAD, HTN, HLD, diverticulitis who brought in from [place] with acute respiratory distress. Pt was recently discharged from the hospital after treatment for sepsis and pneumonia. As per report pt had c/o SOB since discharge. In the ED O2 sat 84% 0n BiPAP. She was intubated for hypoxic respiratory failure 2/2 to HCAP +/- CHF exacerbation. She was transferred to ICU for further management. Pt hypotensive to SBP 60's on sedation so Propofol held. In ICU rec'd intubated but restless. Fent mcg IVP given. Rt IJ TLC inserted for IV access. On propofol drip for RASS -4. - History Source History Provided By: Medical Record Limitations to Obtaining History: Intubated - Past Medical History Cardio/Vascular: Yes: CAD, HTN, Hyperlipdemia Pulmonary: Yes: COPD Gastrointestinal: Yes: Diverticulitis, Diverticulosis, Other (ischemic colitis, h/o colon polyps) - Past Surgical History Past Surgical History: Yes: None, Appendectomy, Colectomy (partial colectomy for perforation from ? diverticulitis/ischemic colitis), Hysterectomy (JW/BSO) - Alcohol/Substance Use Hx Alcohol Use: No History of Substance Use: reports: None - Smoking History Smoking history: Unknown if ever smoked Have you smoked in the past 12 months: No Aproximately how many cigarettes per day: 0 If you are a former smoker, when did you quit?: many years - Social History Usual Living Arrangement: With Child ADL: Family Assistance History of Recent Travel: No Home Medications - Allergies Allergies/Adverse Reactions: Allergies Allergy/AdvReac Type Severity Reaction Status Date / Time Penicillins Allergy Verified 05/28/17 22:39 procaine Allergy Verified 05/28/17 22:39 - Home Medications Home Medications: Ambulatory Orders Isosorbide Mononitrate [Isosorbide Mononitrate ER] 30 mg PO DAILY 01/18/17 Losartan Potassium 50 mg PO DAILY 01/18/17 Albuterol 0.083% Nebulizer Madhavi [Ventolin 0.083% Nebulizer Soln -] 1 neb NEB Q6H 04/21/17 Albuterol Sulfate [Proair Respiclick] 90 mcg IH DAILY 04/21/17 Promethazine HCl [Phenergan Plain 6.25 MG/5 ML -] 10 ml PO TID 04/21/17 Nitrofurantoin Macrocrystal [Nitrofurantoin] 100 mg PO BID 04/22/17 Oxycodone HCl [Roxicodone -] 5 mg PO Q6H PRN 04/22/17 Amiodarone HCl [Cordarone -] 200 mg PO BID tablet 05/05/17 Ascorbic Acid [Vitamin C -] 500 mg PO DAILY tablet 05/05/17 Aspirin [ASA -] 81 mg PO DAILY tab.chew 05/05/17 Cholecalciferol (Vitamin D3) [Vitamin D3 -] 5,000 unit PO DAILY tab 05/05/17 Ranitidine [Zantac -] 150 mg PO DAILY tablet 05/05/17 Salmeterol/Fluticasone [Advair 100Mcg/50Mcg -] 1 puff IH BID inhaler 05/05/17 Guaifenesin Dm [Robitussin Dm -] 10 ml PO Q4H PRN cup 05/27/17 Metoprolol Succinate [Toprol XL -] 100 mg PO BID tab.sr.24h 05/27/17 Pantoprazole Sodium [Protonix -] 40 mg PO DAILY tablet.ec 05/27/17 Diltiazem Cd [Cardizem Cd -] 240 mg PO DAILY cap.cd.24h 06/10/17 Lactobacillus Acidophilus [Bacid -] 1 tab PO DAILY tab 06/10/17 Warfarin Na [Coumadin -] 3 mg PO DAILY@1800 tablet 06/10/17 Family Disease History - Family Disease History Family Disease History: CA: Son (colon ca) Review of Systems Unable to obtain ROS, reason: Intubated Physical Exam Vital Signs: Vital Signs Temperature Pulse Rate 87 06/11/17 17:20 Respiratory Rate 12 06/11/17 17:20 Blood Pressure 138/102 06/11/17 17:20 O2 Sat by Pulse Oximetry (%) 90 L 06/11/17 19:03 Constitutional: Yes: No Distress, Obese Eyes: Yes: Other ([place]) HENT: Yes: Atraumatic, Normocephalic Neck: Yes: Other (Lt neck swelling 2/2 IV infiltration) Cardiovascular: Yes: Regular Rate and Rhythm, S1 Respiratory: Yes: Pro-Briseno, Intubated, Rales Gastrointestinal: Yes: Normal Bowel Sounds, Soft, Abdomen, Obese Renal/: Yes: Gibbons Present Edema: Yes Edema: LUE: 1+, RUE: 1+, LLE: 1+, RLE: 1+ Peripheral Pulses WNL: Yes Integumentary: Yes: WNL Neurological: Yes: Other (RASS-3) ...Motor Strength: WNL Labs: CBC, BMP 06/11/17 18:08 06/11/17 18:08 CBC,CMP WBC 15.0 K/mm3 (4.0-10.0) H D 06/11/17 18:08 RBC 3.08 M/mm3 (3.60-5.2) L 06/11/17 18:08 Hgb 9.5 GM/dL (10.7-15.3) L D 06/11/17 18:08 Hct 30.5 % (32.4-45.2) L 06/11/17 18:08 MCV 99.1 fl (80-96) H 06/11/17 18:08 MCH 30.9 pg (25.7-33.7) 06/11/17 18:08 MCHC 31.2 g/dl (32.0-36.0) L 06/11/17 18:08 RDW 22.6 % (11.6-15.6) H 06/11/17 18:08 Plt Count 332 K/MM3 (134-434) D 06/11/17 18:08 MPV 8.7 fl (7.5-11.1) 06/11/17 18:08 Neutrophils % 92.6 % (42.8-82.8) H D 06/11/17 18:08 Lymphocytes % 3.8 % (8-40) L D 06/11/17 18:08 Monocytes % 2.6 % (3.8-10.2) L 06/11/17 18:08 Eosinophils % 0.8 % (0-4.5) D 06/11/17 18:08 Basophils % 0.2 % (0-2.0) 06/11/17 18:08 Hypochromia 1+ 06/11/17 18:08 Platelet Estimate Adequate 06/11/17 18:08 Platelet Comment No clumping noted 06/11/17 18:08 Polychromasia 1+ 06/11/17 18:08 Anisocytosis 2+ 06/11/17 18:08 Microcytosis 1+ 06/11/17 18:08 Sodium 143 mmol/L (136-145) 06/11/17 18:08 Potassium 4.7 mmol/L (3.5-5.1) 06/11/17 18:08 Chloride 111 mmol/L (98-107) H 06/11/17 18:08 Carbon Dioxide 23 mmol/L (21-32) D 06/11/17 18:08 Anion Gap 9 (8-16) 06/11/17 18:08 BUN 33 mg/dL (7-18) H D 06/11/17 18:08 Creatinine 2.6 mg/dL (0.55-1.02) H 06/11/17 18:08 Creat Clearance w eGFR 17.41 (>60) 06/11/17 18:08 Random Glucose 81 mg/dL (74-106) 06/11/17 18:08 Lactic Acid 3.5 mmol/L (0.4-2.0) H* 06/11/17 18:08 Calcium 7.9 mg/dL (8.5-10.1) L 06/11/17 18:08 Total Bilirubin 0.4 mg/dL (0.2-1.0) 06/11/17 18:08 AST 19 U/L (15-37) D 06/11/17 18:08 ALT 24 U/L (12-78) D 06/11/17 18:08 Alkaline Phosphatase 58 U/L (45-117) D 06/11/17 18:08 Creatine Kinase 30 IU/L (26-192) 06/11/17 18:08 Troponin I 0.02 ng/ml (0.00-0.05) 06/11/17 18:08 B-Natriuretic Peptide 11188.63 pg/ml (5-450) H 06/11/17 18:08 Total Protein 6.7 g/dl (6.4-8.2) D 06/11/17 18:08 Albumin 2.3 g/dl (3.4-5.0) L D 06/11/17 18:08 Initial Vital Signs Pulse Resp BP Pulse Ox 87 30 H 138/102 88 L 06/11/17 17:20 06/11/17 17:20 06/11/17 17:20 06/11/17 17:20 Active Medications Propofol (Diprivan -) 1,000,000 mcg in 100 mls @ 3.266 mls/hr IVPB TITR MALIK; 5 MCG/KG/MIN PRN Reason: Protocol Last Admin: 06/11/17 19:50 Dose: 5 mcg/kg/min, 3.266 mls/hr Meropenem (Merrem (Restricted To Id) -) 500 mg in 10 mls @ 120 mls/hr IVPUSH Q8H-IV MALIK Assessment/Plan 86 year old female with a history of CHF, COPD, CAD, HTN, HLD, diverticulitis who brought in [place] with acute respiratory distress, recent hospitalization and ICU admission for sepsis and PNA now readmitted to ICU intubated d/t hypoxic respiratory failure 2/2 recuurent PNA c/b CHF exacerbation Plan: Resp/ID:hypoxic respiratory failure 2/2 HCAP -LTVV for plat goal <30; o2 sat 92% -Vent bundle-oral care,HOB>30; -Sedation for vent synchrony -Cont meropenem and vanco for empiric coverage -Tailor antib to cxl results -Cont COPD nebs CV: Hypotension 2/2 sepsis+/- sedation; CHF exacerbation (BNP>10,000) -Received 500cc fluid bolus -Vasopressor support prn for MAP>60 -Trend Lactate -TTE -Hold antihypertensives -Cont statins -Diuresis when sepsis improved Renal: Acute on chronic EMANUEL -Monitor BMP and UOP -Adequate hydration Renal dose meds -Tube feeds -DVT proph -GI proph Celi García, ACNP CCtime 35 mins
[2017-06-11 22:57] VITALS: BMI 38.9
[2017-06-11 22:58] LABS: CARBOXYHEMOGLOBIN 1.4 gm% (0.5-2.0)
--- NOTE | 2017-06-12 00:09 | PROC ---
Procedure Note Procedure: Rt IJ TLC placed for IV fluids and for monitoring. Placed under sterile conditions, pt sedated on Propofol and fentanyl. Lidocaine 5cc used. 20G catheter placed using Seldinger technique 16cm in. Minimal blood loss. CXR ordered to confirm placement. DAVID Du
[2017-06-12] MEDS ORDERED: SODIUM CHLORIDE 250 ML IV STA (01:10)
[2017-06-12] MEDS ORDERED: NOREPINEPHRINE BITARTRATE 4 MG/4 ML ML IV ONE (01:10)
[2017-06-12] MEDS: NOREPINEPHRINE BITARTRATE 8,000 MCG in DEXTROSE 5%-WATER - 492 ML IV SCH (01:25)
[2017-06-12] MEDS: MEROPENEM 500 MG PUSH 500 MG/10 ML DISP.SYRIN IVPUSH SCH ×3 (02:45→17:03)
[2017-06-12] MEDS ORDERED: HYDROCORTISONE SOD SUCCINATE 100 MG/2 ML VIAL IVPB STA (06:13)
[2017-06-12 06:59] LABS: HEMATOCRIT 28.9 % (32.4-45.2); HEMOGLOBIN 8.8 GM/dL (10.7-15.3); MCH 30.1 pg (25.7-33.7); MCHC 30.6 g/dl (32.0-36.0); MEAN CELL VOLUME 98.5 fl (80-96); MEAN PLT VOLUME 8.6 fl (7.5-11.1); PLATELET COUNT 279 K/MM3 (134-434); RBC 2.93 M/mm3 (3.60-5.2); RDW 22.4 % (11.6-15.6)
[2017-06-12 07:02] LABS: WHITE BLOOD COUNT 33.3 K/mm3 (4.0-10.0)
[2017-06-12] MEDS ORDERED: SODIUM CHLORIDE 1,000 ML IV SCH (07:30)
[2017-06-12 07:49] LABS: ALBUMIN 1.9 g/dl (3.4-5.0); ALK PHOS 51 U/L (45-117); ANION GAP 9 (8-16); BILIRUBIN,TOTAL 0.5 mg/dL (0.2-1.0); BLOOD UREA NITROGEN 36 mg/dL (7-18); CALCIUM 7.7 mg/dL (8.5-10.1); CHLORIDE 112 mmol/L (98-107); CO2 23 mmol/L (21-32); CREATININE 2.8 mg/dL (0.55-1.02); GLUCOSE,RANDOM 117 mg/dL (74-106); POTASSIUM 4.8 mmol/L (3.5-5.1); SGOT/AST 15 U/L (15-37); SGPT/ALT 20 U/L (12-78); SODIUM 144 mmol/L (136-145); TOT PROT 5.9 g/dl (6.4-8.2)
[2017-06-12 07:56] LABS: ARTERIAL BLOOD GAS BASE EXCESS -0.6 meq/l (-2-2); ARTERIAL BLOOD GAS PCO2 36.6 mmHg (35-45); ARTERIAL BLOOD GAS pH 7.42 (7.35-7.45)
[2017-06-12 08:04] LABS: ALLENS TEST POSITIVE
[2017-06-12 08:58] LABS: PLATELET ESTIMATE ADEQUATE
[2017-06-12] MEDS ORDERED: PT OWN MED DRAWER 7, Y5N ONE (09:13)
[2017-06-12] MEDS: PANTOPRAZOLE SODIUM 40 MG VIAL IVPUSH SCH (10:53)
--- NOTE | 2017-06-12 12:07 | PN ---
Progress Note, Physician History of Present Illness: patient still intubated on pressors more awake and opening eyes stable - Current Medication List Current Medications: Active Medications Heparin Sodium (Porcine) (Heparin -) 5,000 unit SQ TID MALIK Propofol (Diprivan -) 1,000,000 mcg in 100 mls @ 3.266 mls/hr IVPB TITR MALIK; 5 MCG/KG/MIN PRN Reason: Protocol Last Titration: 06/12/17 11:16 Dose: 0 mcg/kg/min, 0 mls/hr Meropenem (Merrem (Restricted To Id) -) 500 mg in 10 mls @ 120 mls/hr IVPUSH Q8H-IV MALIK Last Admin: 06/12/17 10:48 Dose: 120 mls/hr Norepinephrine Bitartrate 8, (000 mcg/ Dextrose) 500 mls @ 18.75 mls/hr IV TITR MALIK; 5 MCG/MIN PRN Reason: Protocol Last Titration: 06/12/17 11:17 Dose: 10 mcg/min, 37.5 mls/hr Sodium Chloride (Normal Saline -) 1,000 mls @ 42 mls/hr IV ASDIR MALIK Last Admin: 06/12/17 07:43 Dose: 42 mls/hr Pantoprazole Sodium (Protonix Iv) 40 mg IVPUSH DAILY MALIK Last Admin: 06/12/17 10:53 Dose: 40 mg - Objective Vital Signs: Vital Signs Temperature 98.4 F 06/12/17 11:10 Pulse Rate 96 H 06/12/17 11:17 Respiratory Rate 94 H 06/12/17 11:10 Blood Pressure 121/70 06/12/17 11:17 O2 Sat by Pulse Oximetry (%) 100 06/12/17 10:29 Constitutional: Yes: No Distress, Calm Cardiovascular: Yes: Tachycardia, Pulse Irregular Respiratory: Yes: Intubated, Mechanically Ventilated Gastrointestinal: Yes: Normal Bowel Sounds, Soft, Other (og in place) Musculoskeletal: Yes: WNL Extremities: Yes: WNL Neurological: Yes: Alert, Oriented Psychiatric: Yes: Alert Labs: CBC, BMP 06/12/17 06:50 06/12/17 06:50 INR, PTT INR 1.91 (0.82-1.09) H 06/11/17 18:08 Assessment/Plan 86 year old female with PMH of CHF, COPD, CAD, HTN, HLD, diverticulitis, and recent ICU admission for sepsis 2/2 PNA [place] in acute respiratory distress readmitted to ICU for hypoxic respiratory failure 2/2 recurrent PNA c/ b CHF exacerbation, now intubated but improving. Plan: hypoxic resp failure pna septic shock lactic acidosis chf acute on chronic renal failure plan cx report noted will stop vanco continue meropenam taper pressors as per icu extubation as per icu cc time 40 min
--- NOTE | 2017-06-12 12:07 | HP ---
DATE OF ADMISSION: DATE OF DICTATION: 06/12/2017 HISTORY OF PRESENT ILLNESS: This is an 86-year-old female well known to me, 2 days ago discharged to [facility]. Came back yesterday again with complaints of short of breath. In the ER, she was in respiratory distress and in CHF, so got intubated and sent her to the ICU. This morning, she is still on the respirator, responding to verbal commands. Last admission she was in septic shock. Blood culture grew Staphylococcus haemolyticus. She was treated accordingly with IV antibiotics. Patient is also known to have CHF, COPD, coronary artery disease, hypertension, on multiple medications. PHYSICAL EXAMINATION: Vital Signs: Today her blood pressure is 100/70, pulse 75, respiration 14, temperature 98. General: On respirator, has minimal verbal response. ENT: Unremarkable. Neck: Supple. Lungs: Bilateral rales present. Heart: S1, S2 normal. No S3, S4. Abdomen: Soft. Extremities: Legs have minimal edema present. Genitourinary: Urine output less. LABORATORY REPORTS: WBC 33, hemoglobin 8.8, platelet 279. Chemistry: Sodium 144, potassium 4.8, chloride 112, BUN 36, creatinine 2.8. Lactic acid was 3.5, now came down to 1.8. X-RAY REPORT: Pulmonary congestion, interstitial edema, bilateral pleural effusions, atelectasis, consolidation needs to be ruled out clinically. FINAL DIAGNOSES: 1. Congestive heart failure. 2. Respiratory failure. 3. Sepsis. PLAN: Continue ICU care. Cardiology consult, Dr. Hawkins. Jenny [id number]
--- NOTE | 2017-06-12 12:21 | PN ---
Physical Exam: SUBJECTIVE: Central line placed without adverse event yesterday afternoon. Patient's pressures dropped to 80s this AM so she was placed on levophed. Otherwise doing well on vent while on Propofol. OBJECTIVE: Vital Signs Period Temp Pulse Resp BP Sys/Rodriguez Pulse Ox Last 24 Hr 98.2 F-100.5 F 76-100 12-94 87-138/50-102 88-100 GENERAL: Intubated and sedated but responsive to firm sternal rub and pain. HEAD: Normal with no signs of trauma. EYES: PERRL, sclera anicteric, conjunctiva clear. ENT: Ears normal, nares patent, oropharynx clear without exudates, moist mucous membranes. NECK: Trachea midline LUNGS: Breath sounds equal, poor lung auscultation in bilateral lower lung jaramillo. No wheezes. Not overbreathing vent and no vent dysynchrony HEART: Regular rate and rhythm, S1, S2 without murmur, rub or gallop. ABDOMEN: Soft, nontender, nondistended, normoactive bowel sounds, no guarding, no rebound, no hepatosplenomegaly, no masses. EXTREMITIES: 2+ pulses, warm, well-perfused NEUROLOGICAL: Sedated but responsive to pain. Laboratory Results - last 24 hr 06/11/17 06/11/17 06/11/17 18:08 18:08 18:08 WBC 15.0 H D RBC 3.08 L Hgb 9.5 L D Hct 30.5 L MCV 99.1 H MCH 30.9 MCHC 31.2 L RDW 22.6 H Plt Count 332 D MPV 8.7 Total Counted Neutrophils % 92.6 H D Neutrophils % (Manual) Band Neutrophils % Lymphocytes % 3.8 L D Lymphocytes % (Manual) Monocytes % 2.6 L Monocytes % (Manual) Eosinophils % 0.8 D Basophils % 0.2 Hypochromia 1+ Platelet Estimate Adequate Platelet Comment No clumping noted Polychromasia 1+ Anisocytosis 2+ Microcytosis 1+ PT with INR 21.60 H INR 1.91 H Anticoagulation Therapy Puncture Site ABG pH ABG pCO2 at Pt Temp ABG pO2 at Pt Temp ABG HCO3 ABG O2 Sat (Measured) ABG O2 Content ABG Base Excess Remigio Test Carboxyhemoglobin Methemoglobin O2 Delivery Device Oxygen Flow Rate Vent Mode Vent Rate Mechanical Rate PEEP Pressure Support Vent Sodium 143 Potassium 4.7 Chloride 111 H Carbon Dioxide 23 D Anion Gap 9 BUN 33 H D Creatinine 2.6 H Creat Clearance w eGFR 17.41 Random Glucose 81 Lactic Acid Calcium 7.9 L Total Bilirubin 0.4 AST 19 D ALT 24 D Alkaline Phosphatase 58 D Creatine Kinase 30 Troponin I 0.02 B-Natriuretic Peptide 88342.63 H Total Protein 6.7 D Albumin 2.3 L D Urine Color Urine Appearance Urine pH Ur Specific [place] Urine Protein Urine Glucose (UA) Urine Ketones Urine Blood Urine Nitrite Urine Bilirubin Urine Urobilinogen Ur Leukocyte Esterase Urine WBC (Auto) Urine RBC (Auto) Ur Epithelial Cells Urine Bacteria Hyaline Casts Urine Mucus Urine Yeast 06/11/17 06/11/17 06/11/17 18:08 20:20 20:50 WBC RBC Hgb Hct MCV MCH MCHC RDW Plt Count MPV Total Counted Neutrophils % Neutrophils % (Manual) Band Neutrophils % Lymphocytes % Lymphocytes % (Manual) Monocytes % Monocytes % (Manual) Eosinophils % Basophils % Hypochromia Platelet Estimate Platelet Comment Polychromasia Anisocytosis Microcytosis PT with INR INR Anticoagulation Therapy Puncture Site ABG pH ABG pCO2 at Pt Temp ABG pO2 at Pt Temp ABG HCO3 ABG O2 Sat (Measured) ABG O2 Content ABG Base Excess Remigio Test Carboxyhemoglobin 1.4 Methemoglobin 0.4 O2 Delivery Device Oxygen Flow Rate Vent Mode Vent Rate Mechanical Rate PEEP Pressure Support Vent Sodium Potassium Chloride Carbon Dioxide Anion Gap BUN Creatinine Creat Clearance w eGFR Random Glucose Lactic Acid 3.5 H* Calcium Total Bilirubin AST ALT Alkaline Phosphatase Creatine Kinase Troponin I B-Natriuretic Peptide Total Protein Albumin Urine Color Yellow Urine Appearance Cloudy Urine pH 5.0 Ur Specific [place] 1.014 Urine Protein 1+ H Urine Glucose (UA) Negative Urine Ketones Negative Urine Blood Negative Urine Nitrite Negative Urine Bilirubin Negative Urine Urobilinogen Negative Ur Leukocyte Esterase Negative Urine WBC (Auto) 16 Urine RBC (Auto) 1 Ur Epithelial Cells Rare Urine Bacteria Rare Hyaline Casts 1 Urine Mucus Rare Urine Yeast Few 06/11/17 06/12/17 06/12/17 22:20 06:50 06:50 WBC 33.3 H* D RBC 2.93 L Hgb 8.8 L Hct 28.9 L MCV 98.5 H MCH 30.1 MCHC 30.6 L RDW 22.4 H Plt Count 279 MPV 8.6 Total Counted 100 Neutrophils % Neutrophils % (Manual) 89.0 H Band Neutrophils % 4.0 Lymphocytes % Lymphocytes % (Manual) 4.0 L D Monocytes % Monocytes % (Manual) 3 L Eosinophils % Basophils % Hypochromia Platelet Estimate Adequate Platelet Comment Polychromasia Anisocytosis Microcytosis PT with INR INR Anticoagulation Therapy Y Puncture Site Right radial ABG pH 7.34 L ABG pCO2 at Pt Temp 42.9 ABG pO2 at Pt Temp 60.0 L ABG HCO3 22.4 ABG O2 Sat (Measured) 89.6 L ABG O2 Content 13.5 L ABG Base Excess -2.7 L Remigio Test Positive Carboxyhemoglobin Methemoglobin O2 Delivery Device Y Oxygen Flow Rate Yes Vent Mode Y Vent Rate Y Mechanical Rate O2 PEEP 5.0 Pressure Support Vent Y Sodium 144 Potassium 4.8 Chloride 112 H Carbon Dioxide 23 Anion Gap 9 BUN 36 H Creatinine 2.8 H Creat Clearance w eGFR 15.98 Random Glucose 117 H D Lactic Acid Calcium 7.7 L Total Bilirubin 0.5 D AST 15 D ALT 20 Alkaline Phosphatase 51 Creatine Kinase Troponin I B-Natriuretic Peptide Total Protein 5.9 L Albumin 1.9 L Urine Color Urine Appearance Urine pH Ur Specific [place] Urine Protein Urine Glucose (UA) Urine Ketones Urine Blood Urine Nitrite Urine Bilirubin Urine Urobilinogen Ur Leukocyte Esterase Urine WBC (Auto) Urine RBC (Auto) Ur Epithelial Cells Urine Bacteria Hyaline Casts Urine Mucus Urine Yeast 06/12/17 06/12/17 06:50 07:30 WBC RBC Hgb Hct MCV MCH MCHC RDW Plt Count MPV Total Counted Neutrophils % Neutrophils % (Manual) Band Neutrophils % Lymphocytes % Lymphocytes % (Manual) Monocytes % Monocytes % (Manual) Eosinophils % Basophils % Hypochromia Platelet Estimate Platelet Comment Polychromasia Anisocytosis Microcytosis PT with INR INR Anticoagulation Therapy Puncture Site Right radial ABG pH 7.42 ABG pCO2 at Pt Temp 36.6 ABG pO2 at Pt Temp 113.0 H D ABG HCO3 23.2 ABG O2 Sat (Measured) 99.0 H ABG O2 Content 12.3 L ABG Base Excess -0.6 Remigio Test Positive Carboxyhemoglobin Methemoglobin O2 Delivery Device A/c Oxygen Flow Rate 60 Vent Mode Tidal volume Vent Rate 14 Mechanical Rate Yes PEEP 5.0 Pressure Support Vent 500 Sodium Potassium Chloride Carbon Dioxide Anion Gap BUN Creatinine Creat Clearance w eGFR Random Glucose Lactic Acid 1.8 Calcium Total Bilirubin AST ALT Alkaline Phosphatase Creatine Kinase Troponin I B-Natriuretic Peptide Total Protein Albumin Urine Color Urine Appearance Urine pH Ur Specific [place] Urine Protein Urine Glucose (UA) Urine Ketones Urine Blood Urine Nitrite Urine Bilirubin Urine Urobilinogen Ur Leukocyte Esterase Urine WBC (Auto) Urine RBC (Auto) Ur Epithelial Cells Urine Bacteria Hyaline Casts Urine Mucus Urine Yeast Active Medications Generic Name Dose Route Start Last Admin Trade Name Freq PRN Reason Stop Dose Admin Heparin Sodium (Porcine) 5,000 unit 06/12/17 14:00 Heparin - SQ TID MALIK Propofol 1,000,000 mcg in 100 mls @ 3.266 mls/hr 06/11/17 17:45 06/12/17 11: 16 Diprivan - IVPB 0 mcg/kg/min TITR MALIK 0 mls/hr Protocol Titration 5 MCG/KG/MIN Meropenem 500 mg in 10 mls @ 120 mls/hr 06/12/17 02:00 06/12/17 10:48 Merrem (Restricted To Id) - IVPUSH 120 mls/hr Q8H-IV MALIK Administration Norepinephrine Bitartrate 8, 500 mls @ 18.75 mls/hr 06/12/17 01:15 06/12/17 11:17 000 mcg/ Dextrose IV 10 mcg/min TITR MALIK 37.5 mls/hr Protocol Titration 5 MCG/MIN Sodium Chloride 1,000 mls @ 42 mls/hr 06/12/17 07:30 06/12/17 07:43 Normal Saline - IV 42 mls/hr ASDIR MALIK Administration Pantoprazole Sodium 40 mg 06/12/17 10:00 06/12/17 10:53 Protonix Iv IVPUSH 40 mg DAILY MALIK Administration ASSESSMENT/PLAN: 86 year old female with PMH of CHF, COPD, CAD, HTN, HLD, diverticulitis, and recent ICU admission for sepsis 2/2 PNA presenting from [place] in acute respiratory distress readmitted to ICU for hypoxic respiratory failure 2/2 recurrent PNA c/ b CHF exacerbation, now intubated but improving. Plan: Neuro: - hold Propofol sedation and can restart at lower rate if needed. Pulm: #Hypoxic respiratory failure 2/2 HCAP. Vanc DC'd - Will attempt CPAP trial today 5/5 - Sedation per above - Cont Meropenem - F/U culture results to tailor abx CV: #Septic shock: source is likely PNA -Pressers started this AM, will attempt to wean once sedation off - Will DC NS maintenance fluids -MAP>60 -Lactatemia resolved -Will discuss utility of TTE tomorrow #CHF exacerbation (BNP>10,000 on admission) -Hold antihypertensives -Cont statins -Diuresis when sepsis improved Renal: #Acute on chronic EMANUEL - Worsening creatinine - Monitor BMP and UOP - Holding fluids - Renal dose meds FEN: -Tube feeds Prophy: -Heparin for DVT proph -Protonix for GI proph Dispo: - ICU a necessity while patient remains ventilated and/or hypotensive Visit type - Emergency Visit Emergency Visit: No - New Patient This patient is new to me today: No - Critical Care Critical Care patient: No - Discharge Referral Referred to [facility] No
--- NOTE | 2017-06-12 13:21 | PN ---
Teaching Attending Note Name of Resident: Moe Francis ATTENDING PHYSICIAN STATEMENT I saw and evaluated the patient. I reviewed the resident's note and discussed the case with the resident. I agree with the resident's findings and plan as documented. SUBJECTIVE: Pt seen and examined in the ICU. Remains intubated, sedated on levophed gtt. Vented on volume assist control with 60% FiO2, saturating well. OBJECTIVE: Last Vital Signs Temp Pulse Resp BP Pulse Ox 98.4 F 94 H 92 H 111/92 100 06/12/17 12:00 06/12/17 12:48 06/12/17 12:48 06/12/17 12:48 06/12/17 10:29 Intake & Output 06/09/17 06/10/17 06/11/17 06/12/17 23:59 23:59 23:59 23:59 Intake Total 559.5 Output Total 600 Balance -40.5 Weight 113 kg 113.001 kg Gen: intubated, sedated Heart: RRR Lung: decreased breath sounds at the bases Abd: soft, nontender Ext: no edema CBC, BMP 06/12/17 06:50 06/12/17 06:50 Active Medications Heparin Sodium (Porcine) (Heparin -) 5,000 unit SQ TID MALIK Propofol (Diprivan -) 1,000,000 mcg in 100 mls @ 3.266 mls/hr IVPB TITR MALIK; 5 MCG/KG/MIN PRN Reason: Protocol Last Titration: 06/12/17 11:16 Dose: 0 mcg/kg/min, 0 mls/hr Meropenem (Merrem (Restricted To Id) -) 500 mg in 10 mls @ 120 mls/hr IVPUSH Q8H-IV MALIK Last Admin: 06/12/17 10:48 Dose: 120 mls/hr Norepinephrine Bitartrate 8, (000 mcg/ Dextrose) 500 mls @ 18.75 mls/hr IV TITR MALIK; 5 MCG/MIN PRN Reason: Protocol Last Titration: 06/12/17 11:17 Dose: 10 mcg/min, 37.5 mls/hr Pantoprazole Sodium (Protonix Iv) 40 mg IVPUSH DAILY MALIK Last Admin: 06/12/17 10:53 Dose: 40 mg ASSESSMENT AND PLAN: Acute Hypoxic Respiratory Failure Pneumonia Septic Shock Acute on Chronic Systolic Heart Failure Acute on Chronic Renal Failure Lactic Acidosis COPD CAD HTN Hyperlipidemia - continue antibiotics - f/u cultures - stool for C diff - check CVP - IVF to keep CVP 8-12 - titrate pressors to maintain MAP >65 - monitor urine output, creatinine - taper FiO2 to keep Spo2 >90% - will likely need diuresis when hemodynamically stable - hold sedation in AM to assess mental status - spontaneous breathing trials when mental status improved - enteral feeds if unable to extubate - DVT/GI prophylaxis - continue ICU monitoring critical care time spent in reviewing chart, evaluating patient and formulating plan 35 min
[2017-06-12] MEDS: HEPARIN NA (PORCINE) 5,000 UNITS/ML 1ML VIAL SQ SCH ×2 (14:10→21:30)
--- NOTE | 2017-06-12 16:30 | EKG ---
Test Reason : Blood Pressure : / mmHG Vent. Rate : 068 BPM Atrial Rate : 202 BPM P-R Int : 000 ms QRS Dur : 094 ms QT Int : 490 ms P-R-T Axes : 000 -36 035 degrees QTc Int : 521 ms ATRIAL FIBRILLATION LEFT AXIS DEVIATION POSSIBLE ANTERIOR INFARCT , AGE UNDETERMINED ABNORMAL ECG WHEN COMPARED WITH ECG OF 03-JUN-2017 11:07, ATRIAL FIBRILLATION HAS REPLACED JUNCTIONAL RHYTHM NONSPECIFIC T WAVE ABNORMALITY, WORSE IN ANTERIOR LEADS QT HAS LENGTHENED Confirmed by JACINDA DING MD ([id number]) on 06/12/2017 4:29:48 PM Referred By: Confirmed By:JACINDA DING MD
[2017-06-12 16:58] LABS: ARTERIAL BLD GAS O2 SATURATION 98.2 % (90-98.9); ARTERIAL BLOOD GAS BASE EXCESS -0.7 meq/l (-2-2); ARTERIAL BLOOD GAS PCO2 37.5 mmHg (35-45); ARTERIAL BLOOD GAS pH 7.41 (7.35-7.45)
[2017-06-12 17:18] LABS: ALLENS TEST POSITIVE
[2017-06-12] MEDS: CHLORHEXIDINE GLUCONATE 4% CLEANSER FOR DECOLONIZATION TP SCH (21:48)
[2017-06-12] MEDS: MUPIROCIN 2% TOPICAL OINTMENT FOR DECOLONIZATION NS SCH (21:48)
[2017-06-13] MEDS: NOREPINEPHRINE BITARTRATE 8,000 MCG in DEXTROSE 5%-WATER - 492 ML IV SCH (01:19)
[2017-06-13] MEDS ORDERED: PT OWN MED DRAWER 7, Y5N ONE ×3 (01:26→21:22)
[2017-06-13] MEDS: MEROPENEM 500 MG PUSH 500 MG/10 ML DISP.SYRIN IVPUSH SCH ×3 (01:27→18:53)
[2017-06-13 06:38] LABS: BASO % 0.4 % (0-2.0); EOS % 1.4 % (0-4.5); HEMATOCRIT 26.7 % (32.4-45.2); HEMOGLOBIN 8.6 GM/dL (10.7-15.3); LYMPH % 12.6 % (8-40); MCH 31.2 pg (25.7-33.7); MCHC 32.2 g/dl (32.0-36.0); MEAN CELL VOLUME 96.9 fl (80-96); MEAN PLT VOLUME 9.3 fl (7.5-11.1); MONO % 5.4 % (3.8-10.2); NEUT % 80.2 % (42.8-82.8); PLATELET COUNT 241 K/MM3 (134-434); RBC 2.76 M/mm3 (3.60-5.2); RDW 21.7 % (11.6-15.6); WHITE BLOOD COUNT 18.3 K/mm3 (4.0-10.0)
[2017-06-13] MEDS: HEPARIN NA (PORCINE) 5,000 UNITS/ML 1ML VIAL SQ SCH ×3 (07:00→21:57)
[2017-06-13 07:06] LABS: ALBUMIN 1.8 g/dl (3.4-5.0); ANION GAP 10 (8-16); BLOOD UREA NITROGEN 43 mg/dL (7-18); CALCIUM 7.3 mg/dL (8.5-10.1); CHLORIDE 109 mmol/L (98-107); CO2 25 mmol/L (21-32); CREATININE 2.7 mg/dL (0.55-1.02); GLUCOSE,RANDOM 87 mg/dL (74-106); MAGNESIUM 1.8 mg/dL (1.8-2.4); PHOSPHOROUS 3.9 mg/dL (2.5-4.9); POTASSIUM 4.2 mmol/L (3.5-5.1); SGOT/AST 12 U/L (15-37); SGPT/ALT 18 U/L (12-78); SODIUM 144 mmol/L (136-145)
[2017-06-13 07:08] LABS: ALK PHOS 52 U/L (45-117); BILIRUBIN,TOTAL 0.5 mg/dL (0.2-1.0); TOT PROT 5.8 g/dl (6.4-8.2)
--- NOTE | 2017-06-13 08:24 | CONS ---
DATE OF CONSULTATION: 06/12/2017 TIME OF CONSULTATION: 7:45 to 8:30 p.m. LOCATION: CCU CONSULTATION REQUESTED BY: Ira Cho M.D. CHIEF COMPLAINT: Shortness of breath. HISTORY OF PRESENT ILLNESS: The patient is an 86-year-old -[place] female with history of hypertension, coronary artery disease, angina pectoris, chronic obstructive pulmonary disease, hypercholesterolemia. She was recently discharged from the hospital after a prolonged stay. She developed increasing respiratory distress and was transferred to the hospital. She was found to be hypoxic and required intubation. At the time of admission, she was hypotensive. The patient had previously been admitted with a respiratory tract infection and sepsis, and is known to have chronic UTI with resistant organism, and during hospitalization had developed severe diarrhea requiring further antibiotic therapy, although C. difficile was later ruled out. On admission the patient was found to have leukocytosis, and x-ray of the chest revealed evidence of left ventricular failure and pleural effusions. Presently she is sedated and intubated. PAST MEDICAL HISTORY: As mentioned in the history of present illness. 1. History of diverticulosis, history of ischemic colitis. 2. History of paroxysmal atrial fibrillation. 3. History of atrial flutter, status post NICOLAS cardioversion. 4. Recurrence of atrial flutter with rapid ventricular response, requiring multiple medications for rate control. PAST SURGICAL HISTORY: 1. Status post appendectomy. 2. Status post partial colectomy for perforated diverticulitis. 3. History of hysterectomy. SOCIAL HISTORY: No history of cigarette smoking available. No history of alcohol use. FAMILY HISTORY: Not available. ALLERGIES: 1. PENICILLIN. 2. PROCAN. CURRENT MEDICATIONS: 1. Norepinephrine 8000 mcg and currently is on 5 mcg/min. 2. Meropenem 500 mg IV q.8 h. 3. Heparin 5000 units subcutaneously t.i.d. 4. Diprivan. 5. Pantoprazole. REVIEW OF SYSTEMS: Not available. PHYSICAL EXAMINATION: General: An 86-year-old female, sedated and intubated. There was no pallor noted. No cyanosis. Vital Signs: Blood pressure 106/66 mmHg. Pulse 98 beats per minute and irregular. Temperature was not recorded. Respirations 14 per minute. Neck: Short, supple. No JVD was noted. Carotids were 1+ to 2+. Upstrokes grossly appeared to be normal. No bruits were heard, and no thyromegaly was appreciated. Heart: PMI was not localized. Heart sounds were partly obscured by breath sounds. No murmur or gallops were appreciated. Lungs: Clear. Scattered crepitations at the right base and decreased breath sounds at the right base. Abdomen: Obese. Unable to elicit tenderness. No hepatosplenomegaly was appreciated. Bowel sounds were decreased. No bruits were appreciated. Extremities: No calf tenderness. Trace bilateral ankle edema. Dorsalis pedis and posterior tibial pulses could not be palpated. LABORATORY DATA: ECG revealed atrial tachycardia versus slow atrial flutter with varying AV conduction, 3 to 4 to 1. Left anterior hemiblock. Slow R-wave progression across the precordial leads may be related to left anterior hemiblock or possibly right ventricular preponderance. Nonspecific ST and T-wave abnormalities. Previous ECG was not available for comparison. CBC on June 11, 2017: WBC count 15,000. On June 12, 2017, WBC count was 33,300. Hemoglobin 9.5 and 8.8 g/dL. Hematocrit 30.5% and 28.9%. platelet count 332,000 and 279,000, respectively. Neutrophils on admission 92.6%, on June 12 were 89%. Chemistry on June 11, 2017: sodium 143, potassium 4.7, chloride 111, CO2 23 mmol/L, BUN 33, creatinine 2.6 mg/dL, calcium 7.9 mg/dL. Lactic acid was 3.5 on June 11 and 1.8 on June 12. BNP on June 11, 2017, was 10,933.63. CK was 30. Troponin was 0.02. RADIOLOGY: X-ray of the chest June 11, 2017, impression: Pulmonary vascular congestion with interstitial edema. Bilateral pleural effusions, likely small to moderate in size, with underlying atelectasis versus consolidation. Please correlate clinically for congestive heart failure exacerbation. IMPRESSION: 1. Acute respiratory failure, etiology secondary to acute left ventricular failure. 2. 3. Shock, possibly precipitated by sepsis. 4. Atrial tachycardia versus atrial flutter with controlled ventricular response. 5. Coronary artery disease, angina pectoris. 6. Chronic kidney disease. 7. Anemia. 8. Chronic obstructive pulmonary disease. 9. Pneumonia needs to be excluded. 10. Exogenous obesity. 11. History of obstructive sleep apnea syndrome. RECOMMENDATIONS: 1. The patient, prior to discharge, had been on anticoagulation. I would suggest heparinization provided there are no contraindications, as INR was subtherapeutic. 2. Amiodarone 200 mg via NG tube. If the patient has rapid heartbeat, she may require IV amiodarone for rate control. 3. The patient may require addition of beta-blockers if heart rate is not being properly controlled, depending on her blood pressure. 4. Follow-up chest x-ray. 5. T3, T4, TSH. 6. Follow up EKG and cardiac enzymes. PROGNOSIS: Critical. Thank you for your referral. Jenny [id number]
[2017-06-13] MEDS: MUPIROCIN 2% TOPICAL OINTMENT FOR DECOLONIZATION NS SCH ×2 (09:22→21:57)
[2017-06-13] MEDS: PANTOPRAZOLE SODIUM 40 MG VIAL IVPUSH SCH (09:31)
--- NOTE | 2017-06-13 09:34 | PN ---
Progress Note, Physician Chief Complaint: Awake,responds to verbal commands History of Present Illness: Admitted with septic shock and respiratory failure Off vasopressors.to be extubated - Current Medication List Current Medications: Active Medications Chlorhexidine Gluconate (Hibiclens For Decolonization -) 1 applic TP HS [facility] Last Admin: 06/12/17 21:48 Dose: 1 applic Heparin Sodium (Porcine) (Heparin -) 5,000 unit SQ TID MALIK Last Admin: 06/12/17 21:30 Dose: 5,000 unit Propofol (Diprivan -) 1,000,000 mcg in 100 mls @ 3.266 mls/hr IVPB TITR MALIK; 5 MCG/KG/MIN PRN Reason: Protocol Last Titration: 06/12/17 11:16 Dose: 0 mcg/kg/min, 0 mls/hr Meropenem (Merrem (Restricted To Id) -) 500 mg in 10 mls @ 120 mls/hr IVPUSH Q8H-IV MALIK Last Admin: 06/13/17 01:27 Dose: 120 mls/hr Norepinephrine Bitartrate 8, (000 mcg/ Dextrose) 500 mls @ 18.75 mls/hr IV TITR MALIK; 5 MCG/MIN PRN Reason: Protocol Last Admin: 06/13/17 01:19 Dose: 2 mcg/min, 7.5 mls/hr Mupirocin (Bactroban Ointment (For Decolonization) -) 1 applic NS BID [facility] Stop: 06/17/17 21:59 Last Admin: 06/12/17 21:48 Dose: 1 applic Pantoprazole Sodium (Protonix Iv) 40 mg IVPUSH DAILY [facility] Last Admin: 06/12/17 10:53 Dose: 40 mg - Objective Vital Signs: Vital Signs Temperature 98 F 06/13/17 06:00 Pulse Rate 105 H 06/13/17 06:00 Respiratory Rate 18 06/13/17 06:39 Blood Pressure 108/69 06/13/17 06:00 O2 Sat by Pulse Oximetry (%) 99 06/12/17 20:45 Constitutional: Yes: Mild Distress Eyes: Yes: WNL HENT: Yes: WNL Neck: Yes: WNL Cardiovascular: Yes: WNL Respiratory: Yes: WNL Gastrointestinal: Yes: Normal Bowel Sounds ...Rectal Exam: Yes: WNL Genitourinary: Yes: Gibbons Present Breast(s): Yes: WNL Musculoskeletal: Yes: Muscle Weakness Edema: No Neurological: Yes: Alert Labs: CBC, BMP 06/13/17 06:20 06/13/17 06:20 INR, PTT INR 1.91 (0.82-1.09) H 06/11/17 18:08 Assessment/Plan Case discussed with resident
--- NOTE | 2017-06-13 09:51 | PN ---
Physical Exam: SUBJECTIVE: Off pressors, off sedation, awake and able to answer non-verbally, passed cpap trial OBJECTIVE: Vital Signs Period Temp Pulse Resp BP Sys/Rodriguez Pulse Ox Last 24 Hr 98 F-98.6 F 94-105 14-94 101-124/62-92 99-100 GENERAL: Intubated and awake, responsive to voice and communicating non- verbally but seemingly appropriately. HEAD: Normal with no signs of trauma. EYES: PERRL, sclera anicteric, conjunctiva clear. ENT: Ears normal, nares patent, oropharynx clear without exudates, moist mucous membranes. NECK: Trachea midline LUNGS: Breath sounds equal, poor lung auscultation in bilateral lower lung jaramillo. No wheezes. On CPAP 5/5 HEART: Regular rate and rhythm, S1, S2 without murmur, rub or gallop. ABDOMEN: Soft, nontender, nondistended, normoactive bowel sounds, no guarding, no rebound, no hepatosplenomegaly, no masses. EXTREMITIES: 2+ pulses, warm, well-perfused NEUROLOGICAL: Moving extremities and responding non verbally with occasional muffled sounds through the vent. Laboratory Results - last 24 hr 06/11/17 06/12/17 06/13/17 20:50 16:48 06:20 WBC 18.3 H D RBC 2.76 L Hgb 8.6 L Hct 26.7 L MCV 96.9 H MCH 31.2 MCHC 32.2 RDW 21.7 H Plt Count 241 MPV 9.3 Absolute Neuts (auto) 14.7 L Absolute Lymphs (auto) 2.3 L Absolute Monos (auto) 1.0 L Absolute Eos (auto) 0.2 Absolute Basos (auto) 0.1 Neutrophils % 80.2 Lymphocytes % 12.6 D Monocytes % 5.4 D Eosinophils % 1.4 Basophils % 0.4 Anticoagulation Therapy Y Puncture Site Right radial ABG pH 7.41 ABG pCO2 at Pt Temp 37.5 ABG pO2 at Pt Temp 93.0 D ABG HCO3 23.2 ABG O2 Sat (Measured) 98.2 ABG O2 Content 12.6 L ABG Base Excess -0.7 Remigio Test Positive O2 Delivery Device Y Oxygen Flow Rate 40% fio2 Vent Mode Cpap Vent Rate Y Mechanical Rate O2 PEEP 5.0 Pressure Support Vent Y Sodium Potassium Chloride Carbon Dioxide Anion Gap BUN Creatinine Creat Clearance w eGFR Random Glucose Calcium Phosphorus Magnesium Total Bilirubin AST ALT Alkaline Phosphatase Total Protein Albumin Ur Leukocyte Esterase Negative 06/13/17 06:20 WBC RBC Hgb Hct MCV MCH MCHC RDW Plt Count MPV Absolute Neuts (auto) Absolute Lymphs (auto) Absolute Monos (auto) Absolute Eos (auto) Absolute Basos (auto) Neutrophils % Lymphocytes % Monocytes % Eosinophils % Basophils % Anticoagulation Therapy Puncture Site ABG pH ABG pCO2 at Pt Temp ABG pO2 at Pt Temp ABG HCO3 ABG O2 Sat (Measured) ABG O2 Content ABG Base Excess Remigio Test O2 Delivery Device Oxygen Flow Rate Vent Mode Vent Rate Mechanical Rate PEEP Pressure Support Vent Sodium 144 Potassium 4.2 Chloride 109 H Carbon Dioxide 25 Anion Gap 10 BUN 43 H Creatinine 2.7 H Creat Clearance w eGFR 16.67 Random Glucose 87 D Calcium 7.3 L Phosphorus 3.9 Magnesium 1.8 Total Bilirubin 0.5 AST 12 L ALT 18 Alkaline Phosphatase 52 Total Protein 5.8 L Albumin 1.8 L Ur Leukocyte Esterase Active Medications Generic Name Dose Route Start Last Admin Trade Name Jeanmarieq PRN Reason Stop Dose Admin Chlorhexidine Gluconate 1 applic 06/12/17 22:00 06/12/17 21:48 Hibiclens For Decolonization - TP 1 applic HS MALIK Administration Heparin Sodium (Porcine) 5,000 unit 06/12/17 14:00 06/13/17 07:00 Heparin - SQ Not Given TID MALIK Propofol 1,000,000 mcg in 100 mls @ 3.266 mls/hr 06/11/17 17:45 06/12/17 11: 16 Diprivan - IVPB 0 mcg/kg/min TITR MALIK 0 mls/hr Protocol Titration 5 MCG/KG/MIN Meropenem 500 mg in 10 mls @ 120 mls/hr 06/12/17 02:00 06/13/17 09:22 Merrem (Restricted To Id) - IVPUSH 120 mls/hr Q8H-IV MALIK Administration Norepinephrine Bitartrate 8, 500 mls @ 18.75 mls/hr 06/12/17 01:15 06/13/17 01:19 000 mcg/ Dextrose IV 2 mcg/min TITR MALIK 7.5 mls/hr Protocol Administration 5 MCG/MIN Mupirocin 1 applic 06/12/17 22:00 06/13/17 09:22 Bactroban Ointment (For Decolonization) - NS 06/17/17 21:59 1 applic BID MALIK Administration Pantoprazole Sodium 40 mg 06/12/17 10:00 06/13/17 09:31 Protonix Iv IVPUSH 40 mg DAILY MALIK Administration ASSESSMENT/PLAN: 86 year old female with PMH of CHF, COPD, CAD, HTN, HLD, diverticulitis, and recent ICU admission for sepsis 2/2 PNA presenting from [place] in acute respiratory distress readmitted to ICU for hypoxic respiratory failure 2/2 recurrent PNA c/ b CHF exacerbation, now awake off sedation, off pressers, and tolerating CPAP well. Plan: Neuro: - mentating well off of sedation Pulm: #Hypoxic respiratory failure 2/2 HCAP. Vanc DC'd - Extubate today - Sedation per above - Cont Meropenem - F/U culture results to tailor abx (NGTD) CV: #Septic shock: source is likely PNA - Off pressers since yesterday afternoon - Off of fluids -MAP>60 -Lactatemia resolved #CHF exacerbation (BNP>10,000 on admission) - Hold antihypertensives - Cont statins - Will give Lasix IV 40 today Renal: #Acute on chronic EMANUEL - Stable/ improving creatinine - Monitor BMP and UOP - Holding fluids - Renal dose meds FEN: -Tube feeds Prophy: -Heparin for DVT proph -Protonix for GI proph Dispo: - will monitor one more day off vent, off sedation, and off pressers. Visit type - Emergency Visit Emergency Visit: No - New Patient This patient is new to me today: No - Critical Care Critical Care patient: Yes Total Critical Care Time (in minutes): 35 Critical Care Statement: The care of this patient involved high complexity decision making to prevent further life threatening deterioration of the patient 's condition and/or to evaluate & treat vital organ system(s) failure or risk of failure. - Discharge Referral Referred to [facility] No
[2017-06-13] MEDS ORDERED: FUROSEMIDE 40 MG/4 ML INJECTABLE VIAL IVPUSH ONE (12:00)
--- NOTE | 2017-06-13 13:01 | PN ---
Teaching Attending Note Name of Resident: Moe Francis ATTENDING PHYSICIAN STATEMENT I saw and evaluated the patient. I reviewed the resident's note and discussed the case with the resident. I agree with the resident's findings and plan as documented. SUBJECTIVE: Patient seen and examined in the ICU. Currently extubated on VM O2. Awake and responsive. Some dry cough. Currently off pressors. Intake & Output 06/10/17 06/11/17 06/12/17 06/13/17 23:59 23:59 23:59 23:59 Intake Total 809.5 190 Output Total 1700 700 Balance -890.5 -510 Weight 249 lb 1.957 oz 249 lb 2 oz 245 lb 13.047 oz Last Vital Signs Temp Pulse Resp BP Pulse Ox 98.5 F 92 H 18 113/70 96 06/13/17 10:00 06/13/17 10:10 06/13/17 10:00 06/13/17 10:00 06/13/17 10:10 Active Medications Chlorhexidine Gluconate (Hibiclens For Decolonization -) 1 applic TP HS MALIK Last Admin: 06/12/17 21:48 Dose: 1 applic Heparin Sodium (Porcine) (Heparin -) 5,000 unit SQ TID MALIK Last Admin: 06/13/17 07:00 Dose: Not Given Propofol (Diprivan -) 1,000,000 mcg in 100 mls @ 3.266 mls/hr IVPB TITR MALIK; 5 MCG/KG/MIN PRN Reason: Protocol Last Titration: 06/12/17 11:16 Dose: 0 mcg/kg/min, 0 mls/hr Meropenem (Merrem (Restricted To Id) -) 500 mg in 10 mls @ 120 mls/hr IVPUSH Q8H-IV MALIK Last Admin: 06/13/17 09:22 Dose: 120 mls/hr Norepinephrine Bitartrate 8, (000 mcg/ Dextrose) 500 mls @ 18.75 mls/hr IV TITR MALIK; 5 MCG/MIN PRN Reason: Protocol Last Admin: 06/13/17 01:19 Dose: 2 mcg/min, 7.5 mls/hr Mupirocin (Bactroban Ointment (For Decolonization) -) 1 applic NS BID [facility]IK Stop: 06/17/17 21:59 Last Admin: 06/13/17 09:22 Dose: 1 applic Pantoprazole Sodium (Protonix Iv) 40 mg IVPUSH DAILY MALIK Last Admin: 06/13/17 09:31 Dose: 40 mg Gen: Extubated and awake Heart: S1S2 Lung: decreased breath sounds at the bases Abd: soft, nontender Ext: no edema Laboratory Results - last 24 hr 06/12/17 06/13/17 06/13/17 16:48 06:20 06:20 WBC 18.3 H D RBC 2.76 L Hgb 8.6 L Hct 26.7 L MCV 96.9 H MCH 31.2 MCHC 32.2 RDW 21.7 H Plt Count 241 MPV 9.3 Absolute Neuts (auto) 14.7 L Absolute Lymphs (auto) 2.3 L Absolute Monos (auto) 1.0 L Absolute Eos (auto) 0.2 Absolute Basos (auto) 0.1 Neutrophils % 80.2 Lymphocytes % 12.6 D Monocytes % 5.4 D Eosinophils % 1.4 Basophils % 0.4 Anticoagulation Therapy Y Puncture Site Right radial ABG pH 7.41 ABG pCO2 at Pt Temp 37.5 ABG pO2 at Pt Temp 93.0 D ABG HCO3 23.2 ABG O2 Sat (Measured) 98.2 ABG O2 Content 12.6 L ABG Base Excess -0.7 Remigio Test Positive O2 Delivery Device Y Oxygen Flow Rate 40% fio2 Vent Mode Cpap Vent Rate Y Mechanical Rate O2 PEEP 5.0 Pressure Support Vent Y Sodium 144 Potassium 4.2 Chloride 109 H Carbon Dioxide 25 Anion Gap 10 BUN 43 H Creatinine 2.7 H Creat Clearance w eGFR 16.67 Random Glucose 87 D Calcium 7.3 L Phosphorus 3.9 Magnesium 1.8 Total Bilirubin 0.5 AST 12 L ALT 18 Alkaline Phosphatase 52 Total Protein 5.8 L Albumin 1.8 L ASSESSMENT AND PLAN: Acute Hypoxic Respiratory Failure Pneumonia Septic Shock Acute on Chronic Systolic Heart Failure Acute on Chronic Renal Failure Lactic Acidosis COPD CAD HTN Hyperlipidemia - ABX - Follow final cultures - Lasix - Monitor off pressors - monitor urine output, creatinine - taper FiO2 to keep Spo2 >90% - VM O2 - DVT/GI prophylaxis - Aspiration precautions - continue ICU monitoring Dr Amaya Critical care time spent in reviewing chart, evaluating patient and formulating plan 40 min
--- NOTE | 2017-06-13 13:06 | PN ---
Progress Note (short form) - Note Progress Note: 86 year old female with history of hypertension, coronary artery disease, angina pectoris, COPD, hypercholesterolemia. Was admitted with acute respiratory failure and hypotension, hypoxia requiring intubation. Patient was recently discharged at the hospital and was at a [facility] facility. Patient has been extubated and is following verbal commands. She is tachycardic and is in atrial flutter with probably 2:1 conduction. Active Medications Generic Name Dose Route Start Last Admin Trade Name Fresaul PRN Reason Stop Dose Admin Chlorhexidine Gluconate 1 applic 06/12/17 22:00 06/12/17 21:48 Hibiclens For Decolonization - TP 1 applic HS MALIK Administration Heparin Sodium (Porcine) 5,000 unit 06/12/17 14:00 06/13/17 07:00 Heparin - SQ Not Given TID MALIK Propofol 1,000,000 mcg in 100 mls @ 3.266 mls/hr 06/11/17 17:45 06/12/17 11: 16 Diprivan - IVPB 0 mcg/kg/min TITR MALIK 0 mls/hr Protocol Titration 5 MCG/KG/MIN Meropenem 500 mg in 10 mls @ 120 mls/hr 06/12/17 02:00 06/13/17 09:22 Merrem (Restricted To Id) - IVPUSH 120 mls/hr Q8H-IV MALIK Administration Norepinephrine Bitartrate 8, 500 mls @ 18.75 mls/hr 06/12/17 01:15 06/13/17 01:19 000 mcg/ Dextrose IV 2 mcg/min TITR MALIK 7.5 mls/hr Protocol Administration 5 MCG/MIN Mupirocin 1 applic 06/12/17 22:00 06/13/17 09:22 Bactroban Ointment (For Decolonization) - NS 06/17/17 21:59 1 applic BID MALIK Administration Pantoprazole Sodium 40 mg 06/12/17 10:00 06/13/17 09:31 Protonix Iv IVPUSH 40 mg DAILY MALIK Administration The patient is an 86 year old female, lethargic and follows commands. Last Vital Signs Temp Pulse Resp BP Pulse Ox 98.5 F 92 H 18 113/70 96 06/13/17 10:00 06/13/17 10:10 06/13/17 10:00 06/13/17 10:00 06/13/17 10:10 Neck: Supple, no JVD, negative HJR, carotids 1-2+. Unable to hear a bruits. Heart: Distant heart sounds, no murmur or gallops appreciated. Lungs: Decreased breath sounds at both bases. Abdomen: Obese. No hepatosplenomegaly was appreciated. Extremities: No calf tenderness. 1+ bilateral ankle edema. CBC, BMP 06/13/17 06:20 06/13/17 06:20 Laboratory Results - last 24 hr 06/12/17 06/13/17 06/13/17 16:48 06:20 06:20 WBC 18.3 H D RBC 2.76 L Hgb 8.6 L Hct 26.7 L MCV 96.9 H MCH 31.2 MCHC 32.2 RDW 21.7 H Plt Count 241 MPV 9.3 Absolute Neuts (auto) 14.7 L Absolute Lymphs (auto) 2.3 L Absolute Monos (auto) 1.0 L Absolute Eos (auto) 0.2 Absolute Basos (auto) 0.1 Neutrophils % 80.2 Lymphocytes % 12.6 D Monocytes % 5.4 D Eosinophils % 1.4 Basophils % 0.4 Anticoagulation Therapy Y Puncture Site Right radial ABG pH 7.41 ABG pCO2 at Pt Temp 37.5 ABG pO2 at Pt Temp 93.0 D ABG HCO3 23.2 ABG O2 Sat (Measured) 98.2 ABG O2 Content 12.6 L ABG Base Excess -0.7 Remigio Test Positive O2 Delivery Device Y Oxygen Flow Rate 40% fio2 Vent Mode Cpap Vent Rate Y Mechanical Rate O2 PEEP 5.0 Pressure Support Vent Y Sodium 144 Potassium 4.2 Chloride 109 H Carbon Dioxide 25 Anion Gap 10 BUN 43 H Creatinine 2.7 H Creat Clearance w eGFR 16.67 Random Glucose 87 D Calcium 7.3 L Phosphorus 3.9 Magnesium 1.8 Total Bilirubin 0.5 AST 12 L ALT 18 Alkaline Phosphatase 52 Total Protein 5.8 L Albumin 1.8 L Impression: 1. Acute left ventricular failure with flash pulmonary edema. Etiology: a. Ischemic heart disease b. Sepsis 2. Respiratory failure, most probably due to left ventricular failure. 3. COPD. 4. Chronic UTI. 5. Bronchial asthma. 6. Paroxysmal atrial flutter/atrial tachycardia 7. History of obstructive sleep apnea 8. Morbid obesity Recommendations: 1. Resume all cardiac medications once patient is able to swallow 2. Serial EKG and enzymes 3. Follow up Xray chest 4. Spoke to daughter regarding her status. Prognosis: Critical Documentation prepared by Faviola Ling, acting as a medical record transcriber for Micky Hawkins MD.
--- NOTE | 2017-06-13 13:20 | PN ---
Progress Note, Physician History of Present Illness: extubated patients family in room calm much more awake and alert pressors tapered - Current Medication List Current Medications: Active Medications Chlorhexidine Gluconate (Hibiclens For Decolonization -) 1 applic TP HS [facility] Last Admin: 06/12/17 21:48 Dose: 1 applic Heparin Sodium (Porcine) (Heparin -) 5,000 unit SQ TID MALIK Last Admin: 06/13/17 07:00 Dose: Not Given Propofol (Diprivan -) 1,000,000 mcg in 100 mls @ 3.266 mls/hr IVPB TITR MALIK; 5 MCG/KG/MIN PRN Reason: Protocol Last Titration: 06/12/17 11:16 Dose: 0 mcg/kg/min, 0 mls/hr Meropenem (Merrem (Restricted To Id) -) 500 mg in 10 mls @ 120 mls/hr IVPUSH Q8H-IV MALIK Last Admin: 06/13/17 09:22 Dose: 120 mls/hr Norepinephrine Bitartrate 8, (000 mcg/ Dextrose) 500 mls @ 18.75 mls/hr IV TITR MALIK; 5 MCG/MIN PRN Reason: Protocol Last Admin: 06/13/17 01:19 Dose: 2 mcg/min, 7.5 mls/hr Mupirocin (Bactroban Ointment (For Decolonization) -) 1 applic NS BID [facility] Stop: 06/17/17 21:59 Last Admin: 06/13/17 09:22 Dose: 1 applic Pantoprazole Sodium (Protonix Iv) 40 mg IVPUSH DAILY [facility] Last Admin: 06/13/17 09:31 Dose: 40 mg - Objective Vital Signs: Vital Signs Temperature 98.5 F 06/13/17 10:00 Pulse Rate 92 H 06/13/17 10:10 Respiratory Rate 18 06/13/17 10:00 Blood Pressure 113/70 06/13/17 10:00 O2 Sat by Pulse Oximetry (%) 96 06/13/17 10:10 Constitutional: Yes: No Distress, Calm Cardiovascular: Yes: Tachycardia, Pulse Irregular Respiratory: Yes: On Venti-Mask, Other Gastrointestinal: Yes: Normal Bowel Sounds, Soft Musculoskeletal: Yes: WNL Extremities: Yes: WNL Neurological: Yes: Alert, Oriented Psychiatric: Yes: Alert, Oriented Labs: CBC, BMP 06/13/17 06:20 12/22/17 06:20 INR, PTT INR 1.91 (0.82-1.09) H 06/11/17 18:08 Assessment/Plan 86 year old female with PMH of CHF, COPD, CAD, HTN, HLD, diverticulitis, and recent ICU admission for sepsis 2/2 PNA presenting [place] in acute respiratory distress readmitted to ICU for hypoxic respiratory failure 2/2 recurrent PNA c/ b CHF exacerbation, Plan: hypoxic resp failure pna septic shock lactic acidosis chf acute on chronic renal failure plan continue meropenam continue resp support rest as per icu/ and cardiology cc time 40 min
[2017-06-13] MEDS: CHLORHEXIDINE GLUCONATE 4% CLEANSER FOR DECOLONIZATION TP SCH (21:57)
[2017-06-13] MEDS ORDERED: MELATONIN 5 MG TABLETS PO PRN (22:00)
[2017-06-13] MEDS: AMIODARONE HCL 200 MG TABLET (FP) PO SCH (22:19)
[2017-06-14] MEDS: MEROPENEM 500 MG PUSH 500 MG/10 ML DISP.SYRIN IVPUSH SCH ×3 (01:34→17:18)
[2017-06-14] MEDS: NOREPINEPHRINE BITARTRATE 8,000 MCG in DEXTROSE 5%-WATER - 492 ML IV SCH (01:35)
[2017-06-14] MEDS ORDERED: PT OWN MED DRAWER 7, Y5N ONE ×3 (06:18→17:17)
[2017-06-14 06:39] LABS: BASO % 0.8 % (0-2.0); EOS % 5.6 % (0-4.5); HEMATOCRIT 27.9 % (32.4-45.2); HEMOGLOBIN 8.9 GM/dL (10.7-15.3); LYMPH % 15.8 % (8-40); MCHC 31.9 g/dl (32.0-36.0); MEAN CELL VOLUME 97.4 fl (80-96); MEAN PLT VOLUME 9.2 fl (7.5-11.1); MONO % 6.1 % (3.8-10.2); NEUT % 71.7 % (42.8-82.8); PLATELET COUNT 234 K/MM3 (134-434); RBC 2.87 M/mm3 (3.60-5.2); RDW 21.4 % (11.6-15.6); WHITE BLOOD COUNT 9.7 K/mm3 (4.0-10.0)
[2017-06-14] MEDS: HEPARIN NA (PORCINE) 5,000 UNITS/ML 1ML VIAL SQ SCH ×3 (06:44→22:00)
[2017-06-14 07:01] LABS: ALBUMIN 1.8 g/dl (3.4-5.0); ANION GAP 8 (8-16); BLOOD UREA NITROGEN 36 mg/dL (7-18); CALCIUM 8.1 mg/dL (8.5-10.1); CHLORIDE 110 mmol/L (98-107); CO2 29 mmol/L (21-32); CREATININE 2.2 mg/dL (0.55-1.02); GLUCOSE,RANDOM 66 mg/dL (74-106); POTASSIUM 3.9 mmol/L (3.5-5.1); SGOT/AST 10 U/L (15-37); SGPT/ALT 16 U/L (12-78); SODIUM 147 mmol/L (136-145)
[2017-06-14 07:02] LABS: ALK PHOS 49 U/L (45-117); BILIRUBIN,TOTAL 0.3 mg/dL (0.2-1.0); TOT PROT 5.7 g/dl (6.4-8.2)
[2017-06-14] MEDS: AMIODARONE HCL 200 MG TABLET (FP) PO SCH (09:19)
[2017-06-14] MEDS: MUPIROCIN 2% TOPICAL OINTMENT FOR DECOLONIZATION NS SCH ×2 (09:20→21:58)
--- NOTE | 2017-06-14 09:20 | PN ---
Progress Note, Physician Chief Complaint: resp distress History of Present Illness: sob much better than when admitted. coughing with phlegm no cp, palpit, syncope - Current Medication List Current Medications: Active Medications Amiodarone HCl (Cordarone -) 200 mg PO DAILY [facility] Last Admin: 06/13/17 22:19 Dose: 200 mg Chlorhexidine Gluconate (Hibiclens For Decolonization -) 1 applic TP HS [facility] Last Admin: 06/13/17 21:57 Dose: 1 applic Heparin Sodium (Porcine) (Heparin -) 5,000 unit SQ TID [facility] Last Admin: 06/14/17 06:44 Dose: 5,000 unit Propofol (Diprivan -) 1,000,000 mcg in 100 mls @ 3.266 mls/hr IVPB TITR MALIK; 5 MCG/KG/MIN PRN Reason: Protocol Last Titration: 06/12/17 11:16 Dose: 0 mcg/kg/min, 0 mls/hr Meropenem (Merrem (Restricted To Id) -) 500 mg in 10 mls @ 120 mls/hr IVPUSH Q8H-IV MALIK Last Admin: 06/14/17 01:34 Dose: 120 mls/hr Norepinephrine Bitartrate 8, (000 mcg/ Dextrose) 500 mls @ 18.75 mls/hr IV TITR MALIK; 5 MCG/MIN PRN Reason: Protocol Last Admin: 06/14/17 01:35 Dose: Not Given Melatonin (Melatonin) 5 mg PO HS PRN PRN Reason: INSOMNIA Mupirocin (Bactroban Ointment (For Decolonization) -) 1 applic NS BID [facility] Stop: 06/17/17 21:59 Last Admin: 06/13/17 21:57 Dose: 1 applic Pantoprazole Sodium (Protonix Iv) 40 mg IVPUSH DAILY [facility] Last Admin: 06/13/17 09:31 Dose: 40 mg - Objective Vital Signs: Vital Signs Temperature 98.0 F 06/14/17 06:00 Pulse Rate 118 H 06/14/17 08:00 Respiratory Rate 18 06/14/17 08:00 Blood Pressure 107/73 06/14/17 08:00 O2 Sat by Pulse Oximetry (%) 96 06/13/17 10:10 Constitutional: Yes: No Distress, Calm, Obese Cardiovascular: Yes: Regular Rate and Rhythm, S1, S2. No: JVD (very tds exam), Gallop, Murmur Respiratory: Yes: Regular, Rhonchi. No: Accessory Muscle Use, Rales, Wheezes Extremities: No: Cold Edema: No Neurological: Yes: Alert, Oriented Psychiatric: No: Agitated Labs: CBC, BMP 06/14/17 05:35 06/14/17 05:35 INR, PTT INR 1.91 (0.82-1.09) H 06/11/17 18:08 - ....Imaging EKG: Other (tele: prob AFL 2:1 conduction) Assessment/Plan Echo (NICOLAS) 05/09: mild-mod global LV hypo; nl LA size. mild AI/MR/TR. +PFO Echo 04/08: nl LV size, mild-mod decr LVSF (global). nl RV. mild-mod LAE. mod MR. Acute Hypoxic Respiratory Failure, PNA, septic shock, Acute on Chronic Systolic Heart Failure: -PNA being treated by crit care and ID -was on levophed for septic shock, BPs stable--pressors off -mild-mod decr LVSF during recent admit 05/09 -acute chf here, ? due to infection and/or IVF (now off). -trop negative, ECG non-ischemic -received 1 dose lasix 40 iv yesterday with signif diuretic response (3900 cc UOP) and renal fxn improved (hence likely component of cardiorenal syndrome/ decomp syst chf) -CXR 06/14 reviewed--incr chf findings vs 06/01 -rpt lasix 40 ivp today -HR 100s-120s (likely AFL 2:1 on telem)--better HR control may help with chf as well (as below)--will plan to resume BB tomorrow if bp remains stable off pressors Acute on Chronic Renal Failure: -prior creatinines here fluctuating, but baseline appears to be 1.5-2.0 -renal fxn worse during this admit, suspect sepsis and cardiorenal syndrome possibly, as above -IVF on hold, diuresing -monitor daily renal fxn trend AFL: -s/p DCCV 05/09. -ECG on admission here c/w AFL variable conduction, HR controlled -currently tele appears to show AFL 2:1 conduction, HR 110s-120s -on PO amio, may be helping with HR control--will continue this for now and defer to dr escalona plan -? resume BB 06/15--as above -h/o GIB here 2014, FOC done then--per GI notes they felt likely culprit was resolved diverticular bleed, with plan for bleeding scan if recurrent bleeding -started on UFH-->warfarin when here 05/09 with new AFL -hgb has been 7s-8s recent baseline values--counts stable here. -INRs subtherapeutic (1.9 today)--dose coumadin daily prn for target INR 2-3 ( rec UFH in the meantime, if cannot take po). watch for signs of recurrent bleeding. -long-term AC plan per dr escalona h/o GIB 2014, chronic anemia: -as above -stool guaiac negative here COPD: -per pulm h/o nonobstructive CAD: -no signs ACS here -cont prior tx per dr escalona (once pt recovers from acute illness) HTN: -hold bp meds while in septic shock here morbid obesity with JYOTI: -? cause of LV dysfunction -consider cpap titration as outpt est time spent in review of data, pt exam, and formulating mgmt plan of potentially life-threatening illnesses = 35-40 min
[2017-06-14] MEDS: PANTOPRAZOLE SODIUM 40 MG VIAL IVPUSH SCH (09:21)
[2017-06-14] MEDS ORDERED: DIGOXIN 0.5 MG/2 ML AMPUL IVPUSH SCH (10:00)
[2017-06-14] MEDS ORDERED: FUROSEMIDE 40 MG/4 ML INJECTABLE VIAL IVPUSH ONE (10:30)
--- NOTE | 2017-06-14 10:46 | PN ---
Progress Note (short form) - Note Progress Note: PULMONARY/CCM Pt seen and examined in the ICU. Extubated to ventimask 40%. States breathing is improving. Denies chest pain. Heart rates rapid. Last Vital Signs Temp Pulse Resp BP Pulse Ox 98.3 F 118 H 18 112/68 96 06/14/17 10:00 06/14/17 10:00 06/14/17 10:00 06/14/17 10:00 06/13/17 10:10 Intake & Output 06/11/17 06/12/17 06/13/17 06/14/17 23:59 23:59 23:59 23:59 Intake Total 809.5 255 810 Output Total 1700 3900 Balance -890.5 -3645 810 Weight 113 kg 113.001 kg 111.5 kg 110 kg Gen: mildly tachypneic at rest Heart:tachycardic, regular Lung: decreased breath sounds at the bases Abd: soft, nontender Ext: no edema CBC, BMP 06/14/17 05:35 06/14/17 05:35 Active Medications Amiodarone HCl (Cordarone -) 200 mg PO DAILY [facility] Last Admin: 06/14/17 09:19 Dose: 200 mg Chlorhexidine Gluconate (Hibiclens For Decolonization -) 1 applic TP HS [facility] Last Admin: 06/13/17 21:57 Dose: 1 applic Heparin Sodium (Porcine) (Heparin -) 5,000 unit SQ TID [facility] Last Admin: 06/14/17 06:44 Dose: 5,000 unit Propofol (Diprivan -) 1,000,000 mcg in 100 mls @ 3.266 mls/hr IVPB TITR MALIK; 5 MCG/KG/MIN PRN Reason: Protocol Last Titration: 06/12/17 11:16 Dose: 0 mcg/kg/min, 0 mls/hr Meropenem (Merrem (Restricted To Id) -) 500 mg in 10 mls @ 120 mls/hr IVPUSH Q8H-IV [facility] Last Admin: 06/14/17 09:21 Dose: 120 mls/hr Norepinephrine Bitartrate 8, (000 mcg/ Dextrose) 500 mls @ 18.75 mls/hr IV TITR MALIK; 5 MCG/MIN PRN Reason: Protocol Last Admin: 06/14/17 01:35 Dose: Not Given Melatonin (Melatonin) 5 mg PO HS PRN PRN Reason: INSOMNIA Mupirocin (Bactroban Ointment (For Decolonization) -) 1 applic NS BID [facility] Stop: 06/17/17 21:59 Last Admin: 06/14/17 09:20 Dose: 1 applic Pantoprazole Sodium (Protonix Iv) 40 mg IVPUSH DAILY [facility] Last Admin: 06/14/17 09:21 Dose: 40 mg Warfarin Sodium (Coumadin -) 5 mg PO ONCE@1800 ONE Stop: 06/14/17 18:01 A/P Acute Hypoxic Respiratory Failure Pneumonia Septic Shock Atrial Flutter with RVR Acute on Chronic Systolic Heart Failure Acute on Chronic Renal Failure Lactic Acidosis COPD CAD HTN Hyperlipidemia - continue antibiotics - monitoring off pressors, maintain MAP >65 - monitor urine output, creatinine - taper FiO2 to keep Spo2 >90% - agree with lasix - resume beta manuelito - PO as tolerated - DVT/GI prophylaxis - continue ICU monitoring critical care time spent in reviewing chart, evaluating patient and formulating plan 35 min
[2017-06-14] MEDS: METOPROLOL SUCCINATE 100 MG TAB.SR.24H (FP) PO SCH ×2 (11:06→21:58)
--- NOTE | 2017-06-14 11:51 | PN ---
Progress Note, Physician History of Present Illness: Events noted. Pt seen and examined.Pt is now s/p extubation, alert and without acute distress. Currently denies fever/chills, mild SOB/cough. No other specific complaints. - Current Medication List Current Medications: Active Medications Amiodarone HCl (Cordarone -) 200 mg PO DAILY [facility] Last Admin: 06/14/17 09:19 Dose: 200 mg Chlorhexidine Gluconate (Hibiclens For Decolonization -) 1 applic TP HS [facility] Last Admin: 06/13/17 21:57 Dose: 1 applic Heparin Sodium (Porcine) (Heparin -) 5,000 unit SQ TID [facility] Last Admin: 06/14/17 06:44 Dose: 5,000 unit Propofol (Diprivan -) 1,000,000 mcg in 100 mls @ 3.266 mls/hr IVPB TITR [facility]; 5 MCG/KG/MIN PRN Reason: Protocol Last Titration: 06/12/17 11:16 Dose: 0 mcg/kg/min, 0 mls/hr Meropenem (Merrem (Restricted To Id) -) 500 mg in 10 mls @ 120 mls/hr IVPUSH Q8H-IV [facility] Last Admin: 06/14/17 09:21 Dose: 120 mls/hr Norepinephrine Bitartrate 8, (000 mcg/ Dextrose) 500 mls @ 18.75 mls/hr IV TITR [facility]; 5 MCG/MIN PRN Reason: Protocol Last Admin: 06/14/17 01:35 Dose: Not Given Melatonin (Melatonin) 5 mg PO HS PRN PRN Reason: INSOMNIA Metoprolol Succinate (Toprol Xl -) 100 mg PO BID [facility] Last Admin: 06/14/17 11:06 Dose: 100 mg Mupirocin (Bactroban Ointment (For Decolonization) -) 1 applic NS BID [facility] Stop: 06/17/17 21:59 Last Admin: 06/14/17 09:20 Dose: 1 applic Pantoprazole Sodium (Protonix Iv) 40 mg IVPUSH DAILY [facility] Last Admin: 06/14/17 09:21 Dose: 40 mg Warfarin Sodium (Coumadin -) 5 mg PO ONCE@1800 ONE Stop: 06/14/17 18:01 - Objective Vital Signs: Vital Signs Temperature 98.3 F 06/14/17 10:00 Pulse Rate 118 H 06/14/17 10:00 Respiratory Rate 18 06/14/17 10:00 Blood Pressure 112/68 06/14/17 10:00 O2 Sat by Pulse Oximetry (%) 96 06/13/17 10:10 Constitutional: Yes: No Distress, Calm Neck: Yes: Supple Cardiovascular: Yes: Pulse Irregular Respiratory: Yes: Diminished Gastrointestinal: Yes: Normal Bowel Sounds, Soft Genitourinary: Yes: WNL Integumentary: Yes: WNL Neurological: Yes: Alert, Oriented Labs: CBC, BMP 06/14/17 05:35 06/14/17 05:35 INR, PTT INR 1.91 (0.82-1.09) H 06/11/17 18:08 Microbiology 06/11/17 18:08 Blood - Peripheral Venous Blood Culture - Preliminary NO GROWTH OBTAINED AFTER 48 HOURS, INCUBATION TO CONTINUE FOR 3 DAYS. 06/11/17 18:08 Blood - Peripheral Venous Blood Culture - Preliminary NO GROWTH OBTAINED AFTER 48 HOURS, INCUBATION TO CONTINUE FOR 3 DAYS. 06/11/17 20:50 Urine - Urine - Catheterized Urine Culture - Final NO GROWTH OBTAINED 06/12/17 18:30 Stool Clostridium difficile Antigen (ROSE) - Final 06/12/17 18:30 Stool Clostridium difficile Toxin Assay - Final - ....Imaging Chest X-ray: Report Reviewed Problem List - Problems (1) CHF (NYHA class II, ACC/AHA stage C) Code(s): I50.9 - HEART FAILURE, UNSPECIFIED (2) Respiratory distress, acute Code(s): R06.03 - ACUTE RESPIRATORY DISTRESS (3) Atrial fibrillation with RVR Code(s): I48.91 - UNSPECIFIED ATRIAL FIBRILLATION (4) Healthcare-associated pneumonia Code(s): J18.9 - PNEUMONIA, UNSPECIFIED ORGANISM (5) Leukocytosis Code(s): D72.829 - ELEVATED WHITE BLOOD CELL COUNT, UNSPECIFIED Assessment/Plan 86 y.o. female with recurrent admissions for hypoxia, low BP, Pulmonary edema, leukocytosis Acute Respiratory Failure - now s/p extubation Acute on Chronic Respiratory failure Septic Shock Presumed PNA - appears to be improving, continue Meropenem for now - continue monitor, supportive care rest of care per ICU
--- NOTE | 2017-06-14 15:05 | PN ---
Progress Note, Physician Chief Complaint: better History of Present Illness: S/P extubation - Current Medication List Current Medications: Active Medications Amiodarone HCl (Cordarone -) 200 mg PO DAILY [facility] Last Admin: 06/14/17 09:19 Dose: 200 mg Chlorhexidine Gluconate (Hibiclens For Decolonization -) 1 applic TP HS [facility] Last Admin: 06/13/17 21:57 Dose: 1 applic Heparin Sodium (Porcine) (Heparin -) 5,000 unit SQ TID [facility] Last Admin: 06/14/17 13:32 Dose: 5,000 unit Meropenem (Merrem (Restricted To Id) -) 500 mg in 10 mls @ 120 mls/hr IVPUSH Q8H-IV [facility] Last Admin: 06/14/17 09:21 Dose: 120 mls/hr Melatonin (Melatonin) 5 mg PO HS PRN PRN Reason: INSOMNIA Metoprolol Succinate (Toprol Xl -) 100 mg PO BID [facility] Last Admin: 06/14/17 11:06 Dose: 100 mg Mupirocin (Bactroban Ointment (For Decolonization) -) 1 applic NS BID [facility] Stop: 06/17/17 21:59 Last Admin: 06/14/17 09:20 Dose: 1 applic Pantoprazole Sodium (Protonix Iv) 40 mg IVPUSH DAILY [facility] Last Admin: 06/14/17 09:21 Dose: 40 mg Warfarin Sodium (Coumadin -) 5 mg PO ONCE@1800 ONE Stop: 06/14/17 18:01 - Objective Vital Signs: Vital Signs Temperature 98.3 F 06/14/17 14:00 Pulse Rate 107 H 06/14/17 14:00 Respiratory Rate 18 06/14/17 14:00 Blood Pressure 109/71 06/14/17 14:00 O2 Sat by Pulse Oximetry (%) 100 06/14/17 09:00 Constitutional: Yes: No Distress Eyes: Yes: WNL HENT: Yes: WNL Neck: Yes: WNL Cardiovascular: Yes: Regular Rate and Rhythm Respiratory: Yes: On Nasal O2 Gastrointestinal: Yes: WNL ...Rectal Exam: Yes: Deferred Genitourinary: Yes: Gibbons Present Edema: No Integumentary: Yes: WNL Labs: CBC, BMP 06/14/17 05:35 06/14/17 05:35 INR, PTT INR 1.91 (0.82-1.09) H 06/11/17 18:08 - ....Imaging Chest X-ray: Report Reviewed
[2017-06-14] MEDS ORDERED: WARFARIN NA 5 MG TABLET (UD) PO ONE (18:00)
[2017-06-14] MEDS: CHLORHEXIDINE GLUCONATE 4% CLEANSER FOR DECOLONIZATION TP SCH (22:00)
[2017-06-15] MEDS: MEROPENEM 500 MG PUSH 500 MG/10 ML DISP.SYRIN IVPUSH SCH ×4 (02:13→20:05)
[2017-06-15] MEDS ORDERED: PT OWN MED DRAWER 7, Y5N ONE ×2 (02:13→09:19)
[2017-06-15 06:28] LABS: BASO % 0.3 % (0-2.0); EOS % 5.9 % (0-4.5); HEMOGLOBIN 8.9 GM/dL (10.7-15.3); LYMPH % 26.6 % (8-40); MCH 31.1 pg (25.7-33.7); MEAN CELL VOLUME 97.3 fl (80-96); MONO % 8.4 % (3.8-10.2); NEUT % 58.8 % (42.8-82.8); PLATELET COUNT 235 K/MM3 (134-434); RBC 2.87 M/mm3 (3.60-5.2); RDW 20.9 % (11.6-15.6); WHITE BLOOD COUNT 7.7 K/mm3 (4.0-10.0)
[2017-06-15 06:36] LABS: INR 2.31 (0.82-1.09); PROTHROMBIN TIME (PATIENT) 26.1 SEC (9.98-11.88)
[2017-06-15 06:48] LABS: ADD RBC MORPHOLOGY YES
[2017-06-15 06:52] LABS: ANION GAP 9 (8-16); BLOOD UREA NITROGEN 33 mg/dL (7-18); CALCIUM 7.9 mg/dL (8.5-10.1); CHLORIDE 110 mmol/L (98-107); CO2 29 mmol/L (21-32); CREATININE 2.3 mg/dL (0.55-1.02); GLUCOSE,RANDOM 78 mg/dL (74-106); MAGNESIUM 1.5 mg/dL (1.8-2.4); PHOSPHOROUS 3.2 mg/dL (2.5-4.9); POTASSIUM 3.7 mmol/L (3.5-5.1); SODIUM 148 mmol/L (136-145)
[2017-06-15] MEDS: HEPARIN NA (PORCINE) 5,000 UNITS/ML 1ML VIAL SQ SCH ×3 (07:35→22:39)
[2017-06-15] MEDS: MUPIROCIN 2% TOPICAL OINTMENT FOR DECOLONIZATION NS SCH (09:20)
[2017-06-15] MEDS: AMIODARONE HCL 200 MG TABLET (FP) PO SCH (09:20)
[2017-06-15] MEDS: METOPROLOL SUCCINATE 100 MG TAB.SR.24H (FP) PO SCH (09:20)
[2017-06-15] MEDS: PANTOPRAZOLE SODIUM 40 MG VIAL IVPUSH SCH (09:21)
[2017-06-15] MEDS ORDERED: FUROSEMIDE 40 MG/4 ML INJECTABLE VIAL IVPUSH SCH (10:00)
[2017-06-15 10:32] LABS: ANISOCYTOSIS 2+; MACROCYTOSIS 1+; PLATELET ESTIMATE NORMAL; TARGET CELLS 1+
--- NOTE | 2017-06-15 11:09 | PN ---
Progress Note (short form) - Note Progress Note: PULMONARY/CCM Pt seen and examined in the ICU. Saturating well on nasal cannula. States breathing is continuing to improve. Denies chest pain. Heart rates rapid. Last Vital Signs Temp Pulse Resp BP Pulse Ox 98.6 F 111 H 18 115/75 99 06/15/17 10:00 06/15/17 10:00 06/15/17 10:00 06/15/17 10:00 06/15/17 08:00 Intake & Output 06/12/17 06/13/17 06/14/17 06/15/17 23:59 23:59 23:59 23:59 Intake Total 809.5 255 1160 340 Output Total 1700 3900 1200 600 Balance -890.5 -3645 -40 -260 Weight 113.001 kg 111.5 kg 110 kg 111.448 kg Gen: mildly tachypneic at rest Heart: tachycardic, regular Lung: decreased breath sounds at the bases Abd: soft, nontender Ext: no edema CBC, BMP 06/15/17 05:35 06/15/17 05:35 Active Medications Amiodarone HCl (Cordarone -) 200 mg PO DAILY [facility] Last Admin: 06/15/17 09:20 Dose: 200 mg Chlorhexidine Gluconate (Hibiclens For Decolonization -) 1 applic TP HS [facility] Last Admin: 06/14/17 22:00 Dose: 1 applic Heparin Sodium (Porcine) (Heparin -) 5,000 unit SQ TID [facility] Last Admin: 06/15/17 07:35 Dose: 5,000 unit Meropenem (Merrem (Restricted To Id) -) 500 mg in 10 mls @ 120 mls/hr IVPUSH Q8H-IV [facility] Last Admin: 06/15/17 09:20 Dose: 120 mls/hr Melatonin (Melatonin) 5 mg PO HS PRN PRN Reason: INSOMNIA Metoprolol Succinate (Toprol Xl -) 100 mg PO BID [facility] Last Admin: 06/15/17 09:20 Dose: 100 mg Mupirocin (Bactroban Ointment (For Decolonization) -) 1 applic NS BID [facility] Stop: 06/17/17 21:59 Last Admin: 06/15/17 09:20 Dose: 1 applic Pantoprazole Sodium (Protonix Iv) 40 mg IVPUSH DAILY [facility] Last Admin: 06/15/17 09:21 Dose: 40 mg A/P Acute Hypoxic Respiratory Failure Pneumonia Septic Shock Atrial Flutter with RVR Acute on Chronic Systolic Heart Failure Acute on Chronic Renal Failure Lactic Acidosis COPD CAD HTN Hyperlipidemia - continue antibiotics - monitoring off pressors, maintain MAP >65 - monitor urine output, creatinine - taper FiO2 to keep Spo2 >90% - continue lasix - resume beta manuelito - PO as tolerated - DVT/GI prophylaxis - can monitor on telemetry critical care time spent in reviewing chart, evaluating patient and formulating plan 35 min
--- NOTE | 2017-06-15 13:18 | PN ---
Progress Note, Physician Chief Complaint: wants to eat more History of Present Illness: Admitted with septic shock and respiratory failure - Current Medication List Current Medications: Active Medications Amiodarone HCl (Cordarone -) 200 mg PO DAILY [facility] Furosemide (Lasix Injection -) 40 mg IVPUSH DAILY [facility] Heparin Sodium (Porcine) (Heparin -) 5,000 unit SQ TID [facility] Meropenem (Merrem (Restricted To Id) -) 500 mg in 10 mls @ 120 mls/hr IVPUSH Q8H-IV [facility] Melatonin (Melatonin) 5 mg PO HS PRN PRN Reason: INSOMNIA Metoprolol Succinate (Toprol Xl -) 100 mg PO BID [facility] Pantoprazole Sodium (Protonix Iv) 40 mg IVPUSH DAILY [facility] - Objective Vital Signs: Vital Signs Temperature 98.3 F 06/15/17 12:00 Pulse Rate 113 H 06/15/17 12:00 Respiratory Rate 18 06/15/17 12:00 Blood Pressure 100/69 06/15/17 12:00 O2 Sat by Pulse Oximetry (%) 99 06/15/17 08:00 Constitutional: Yes: Calm Eyes: Yes: WNL HENT: Yes: WNL Neck: Yes: WNL Cardiovascular: Yes: Pulse Irregular Respiratory: Yes: On Nasal O2 Gastrointestinal: Yes: Normal Bowel Sounds ...Rectal Exam: Yes: Deferred Genitourinary: Yes: WNL Musculoskeletal: Yes: Muscle Weakness Edema: No Peripheral Pulses WNL: Yes Neurological: Yes: Alert Labs: CBC, BMP 06/15/17 05:35 06/15/17 05:35 INR, PTT INR 2.31 (0.82-1.09) H 06/15/17 05:35 Assessment/Plan 2gm Na regular diet
--- NOTE | 2017-06-15 16:34 | PN ---
Progress Note, Physician History of Present Illness: Pt states she feels well today. No acute difficulty breathing, no chest pain. no new complaints. - Current Medication List Current Medications: Active Medications Amiodarone HCl (Cordarone -) 200 mg PO DAILY [facility] Furosemide (Lasix Injection -) 40 mg IVPUSH DAILY [facility] Heparin Sodium (Porcine) (Heparin -) 5,000 unit SQ TID [facility] Last Admin: 06/15/17 15:43 Dose: Not Given Meropenem (Merrem (Restricted To Id) -) 500 mg in 10 mls @ 120 mls/hr IVPUSH Q8H-IV [facility] Melatonin (Melatonin) 5 mg PO HS PRN PRN Reason: INSOMNIA Metoprolol Succinate (Toprol Xl -) 100 mg PO BID [facility] Nystatin (Nystop Powder -) 1 applic TP BID [facility] Pantoprazole Sodium (Protonix Iv) 40 mg IVPUSH DAILY [facility] - Objective Vital Signs: Vital Signs Temperature 98.4 F 06/15/17 14:15 Pulse Rate 112 H 06/15/17 14:15 Respiratory Rate 18 06/15/17 14:15 Blood Pressure 121/67 06/15/17 14:15 O2 Sat by Pulse Oximetry (%) 99 06/15/17 08:00 Constitutional: Yes: No Distress, Calm Cardiovascular: Yes: Pulse Irregular Respiratory: Yes: Diminished Gastrointestinal: Yes: Normal Bowel Sounds, Soft Genitourinary: Yes: WNL Integumentary: Yes: WNL Neurological: Yes: Alert, Oriented Labs: CBC, BMP 06/15/17 05:35 06/15/17 05:35 INR, PTT INR 2.31 (0.82-1.09) H 06/15/17 05:35 Problem List - Problems (1) CHF (NYHA class II, ACC/AHA stage C) Code(s): I50.9 - HEART FAILURE, UNSPECIFIED (2) Respiratory distress, acute Code(s): R06.03 - ACUTE RESPIRATORY DISTRESS (3) Atrial fibrillation with RVR Code(s): I48.91 - UNSPECIFIED ATRIAL FIBRILLATION (4) Healthcare-associated pneumonia Code(s): J18.9 - PNEUMONIA, UNSPECIFIED ORGANISM (5) Leukocytosis Code(s): D72.829 - ELEVATED WHITE BLOOD CELL COUNT, UNSPECIFIED Assessment/Plan 86 y.o. female with readmission for hypoxia, low BP, Pulmonary edema, leukocytosis Acute Respiratory Failure - now s/p extubation Acute on Chronic Respiratory failure Septic Shock PNA - continue Meropenem - currently appears stable but weak in general - continue monitor closely
--- NOTE | 2017-06-15 17:57 | PN ---
Progress Note (short form) - Note Progress Note: 86 year old female with history of hypertension, coronary artery disease, angina pectoris, COPD, hypercholesterolemia. Was admitted with acute respiratory failure and hypotension, hypoxia and required intubation.Transferred to telemetry, Had been in atrial flutter with controlled ventricular response, since readmission appears to have 2:1 AV conduction and rapid ventricular response. No SOB or chest pain reported. Active Medications Amiodarone HCl (Cordarone -) 200 mg PO DAILY [facility] Furosemide (Lasix Injection -) 40 mg IVPUSH DAILY [facility] Heparin Sodium (Porcine) (Heparin -) 5,000 unit SQ TID [facility] Last Admin: 06/15/17 15:43 Dose: Not Given Meropenem (Merrem (Restricted To Id) -) 500 mg in 10 mls @ 120 mls/hr IVPUSH Q8H-IV [facility] Melatonin (Melatonin) 5 mg PO HS PRN PRN Reason: INSOMNIA Metoprolol Succinate (Toprol Xl -) 100 mg PO BID [facility] Nystatin (Nystop Powder -) 1 applic TP BID [facility] Pantoprazole Sodium (Protonix Iv) 40 mg IVPUSH DAILY [facility] 86 year old AA female, in no acute distress, pallor+, no clubbing, jaundice or cyanosis. Last Vital Signs Temp Pulse Resp BP Pulse Ox 98.4 F 112 H 18 121/67 99 06/15/17 14:15 06/15/17 14:15 06/15/17 14:15 06/15/17 14:15 06/15/17 08:00 Neck: Supple, no JVD, negative HJR, carotids 1-2+. Unable to hear a bruits. Heart: Distant heart sounds, no murmur or gallops appreciated. Lungs: Decreased breath sounds at both bases. Abdomen: Obese. No hepatosplenomegaly was appreciated. Extremities: No calf tenderness. 1+ bilateral ankle edema. CBC, BMP 06/15/17 05:35 06/15/17 05:35 Impression: 1. Acute left ventricular failure with flash pulmonary edema, resolved. Etiology : a. Ischemic heart disease b. Sepsis 2. Respiratory failure, most probably due to left ventricular failure. 3. COPD. 4. Chronic UTI. 5. Bronchial asthma. 6. Paroxysmal atrial flutter with 2:1 conduction. 7. History of obstructive sleep apnea. 8. Morbid obesity. 9. Anemia. Recommendations: 1. Resume all cardiac medications once patient is able to swallow. 2. F/u BMP and CBC 3. Follow up Xray chest. Prognosis: Guarded
[2017-06-15] MEDS ORDERED: METOPROLOL SUCCINATE 100 MG TAB.SR.24H (FP) PO SCH (22:00)
[2017-06-15] MEDS: NYSTATIN POWDER 100,000 UNITS/GM - 15 GM TOPICAL POWDER TP SCH (22:39)
[2017-06-16] MEDS: MEROPENEM 500 MG PUSH 500 MG/10 ML DISP.SYRIN IVPUSH SCH ×3 (03:00→17:30)
[2017-06-16] MEDS: HEPARIN NA (PORCINE) 5,000 UNITS/ML 1ML VIAL SQ SCH ×3 (06:44→22:22)
[2017-06-16 07:50] LABS: HEMOGLOBIN 8.8 GM/dL (10.7-15.3); MCH 30.3 pg (25.7-33.7); MCHC 31.2 g/dl (32.0-36.0); MEAN PLT VOLUME 9.3 fl (7.5-11.1); PLATELET COUNT 213 K/MM3 (134-434); RBC 2.89 M/mm3 (3.60-5.2); RDW 20.9 % (11.6-15.6); WHITE BLOOD COUNT 8.5 K/mm3 (4.0-10.0)
[2017-06-16 08:04] LABS: INR 2.28 (0.82-1.09); PROTHROMBIN TIME (PATIENT) 25.8 SEC (9.98-11.88)
[2017-06-16 08:21] LABS: ANION GAP 8 (8-16); BLOOD UREA NITROGEN 31 mg/dL (7-18); CALCIUM 7.9 mg/dL (8.5-10.1); CHLORIDE 108 mmol/L (98-107); CO2 30 mmol/L (21-32); GLUCOSE,RANDOM 83 mg/dL (74-106); MAGNESIUM 1.6 mg/dL (1.8-2.4); POTASSIUM 3.7 mmol/L (3.5-5.1); SODIUM 146 mmol/L (136-145)
[2017-06-16 08:23] LABS: CREATININE 2.2 mg/dL (0.55-1.02); PHOSPHOROUS 2.9 mg/dL (2.5-4.9)
[2017-06-16 08:52] LABS: PLATELET ESTIMATE ADEQUATE
--- NOTE | 2017-06-16 10:06 | PN ---
Progress Note, Physician History of Present Illness: PULMONARY ALERT,FEELING BETTER,SOB IMPROVING,+ COUGH - Current Medication List Current Medications: Active Medications Amiodarone HCl (Cordarone -) 200 mg PO DAILY [facility] Furosemide (Lasix Injection -) 40 mg IVPUSH DAILY [facility] Heparin Sodium (Porcine) (Heparin -) 5,000 unit SQ TID [facility] Last Admin: 06/16/17 06:44 Dose: 5,000 unit Meropenem (Merrem (Restricted To Id) -) 500 mg in 10 mls @ 120 mls/hr IVPUSH Q8H-IV [facility] Last Admin: 06/16/17 03:00 Dose: 120 mls/hr Melatonin (Melatonin) 5 mg PO HS PRN PRN Reason: INSOMNIA Metoprolol Succinate (Toprol Xl -) 100 mg PO BID [facility] Metoprolol Succinate (Toprol Xl -) 50 mg PO ONCE ONE Stop: 06/16/17 23:46 Last Admin: 06/16/17 00:17 Dose: 50 mg Nystatin (Nystop Powder -) 1 applic TP BID [facility] Last Admin: 06/15/17 22:39 Dose: 1 applic Pantoprazole Sodium (Protonix Iv) 40 mg IVPUSH DAILY [facility] - Objective Vital Signs: Vital Signs Temperature 99 F 06/16/17 05:00 Pulse Rate 112 H 06/16/17 05:00 Respiratory Rate 20 06/16/17 05:00 Blood Pressure 102/54 06/16/17 05:00 O2 Sat by Pulse Oximetry (%) 98 06/15/17 21:00 Constitutional: Yes: Calm, Obese Eyes: Yes: WNL HENT: Yes: WNL Neck: Yes: WNL Cardiovascular: Yes: Pulse Irregular, S1, S2 Respiratory: Yes: Rhonchi (SCATTERED ISH WHEEZES AND RHONCHI) Gastrointestinal: Yes: Normal Bowel Sounds, Soft Extremities: Yes: WNL Edema: Yes Labs: CBC, BMP 06/16/17 06:38 06/16/17 06:38 INR, PTT INR 2.28 (0.82-1.09) H 06/16/17 06:38 Problem List - Problems (1) CHF (NYHA class II, ACC/AHA stage C) Code(s): I50.9 - HEART FAILURE, UNSPECIFIED (2) Respiratory distress, acute Code(s): R06.03 - ACUTE RESPIRATORY DISTRESS (3) Sepsis Code(s): A41.9 - SEPSIS, UNSPECIFIED ORGANISM Qualifiers: Sepsis type: sepsis due to unspecified organism Qualified Code(s): A41.9 - Sepsis, unspecified organism (4) Atrial fibrillation with RVR Code(s): I48.91 - UNSPECIFIED ATRIAL FIBRILLATION (5) COPD mixed type Code(s): J44.9 - CHRONIC OBSTRUCTIVE PULMONARY DISEASE, UNSPECIFIED (6) Healthcare-associated pneumonia Code(s): J18.9 - PNEUMONIA, UNSPECIFIED ORGANISM (7) Persistent atrial fibrillation Code(s): I48.1 - PERSISTENT ATRIAL FIBRILLATION (8) Renal function impairment Code(s): N28.9 - DISORDER OF KIDNEY AND URETER, UNSPECIFIED (9) Wheezing Code(s): R06.2 - WHEEZING (10) CKD stage G3b/A3, GFR 30-44 and albumin creatinine ratio >300 mg/g Code(s): N18.3 - CHRONIC KIDNEY DISEASE, STAGE 3 (MODERATE) (11) Acute on chronic renal failure Code(s): N17.9 - ACUTE KIDNEY FAILURE, UNSPECIFIED; N18.9 - CHRONIC KIDNEY DISEASE, UNSPECIFIED Assessment/Plan A/P Acute Hypoxic Respiratory Failure improving Pneumonia S/P Septic Shock Atrial Flutter with RVR Acute on Chronic Systolic Heart Failure Acute on Chronic Renal Failure Lactic Acidosis COPD CAD HTN Hyperlipidemia - antibiotics as per ID - monitor urine output, creatinine - taper FiO2 to keep Spo2 >90% - lasix - PO as tolerated - DVT/GI prophylaxis DR GOMEZ
[2017-06-16] MEDS ORDERED: PT OWN MED DRAWER 7, Y5N ONE (10:22)
[2017-06-16] MEDS: AMIODARONE HCL 200 MG TABLET (FP) PO SCH (10:24)
[2017-06-16] MEDS: FUROSEMIDE 40 MG/4 ML INJECTABLE VIAL IVPUSH SCH (10:24)
[2017-06-16] MEDS: PANTOPRAZOLE SODIUM 40 MG VIAL IVPUSH SCH (10:25)
[2017-06-16] MEDS: NYSTATIN POWDER 100,000 UNITS/GM - 15 GM TOPICAL POWDER TP SCH ×2 (10:25→22:21)
[2017-06-16] MEDS: METOPROLOL SUCCINATE 100 MG TAB.SR.24H (FP) PO SCH ×2 (10:25→22:22)
--- NOTE | 2017-06-16 11:48 | PN ---
Progress Note, Physician History of Present Illness: better sob improving patient feeling better - Current Medication List Current Medications: Active Medications Amiodarone HCl (Cordarone -) 200 mg PO DAILY [facility] Last Admin: 06/16/17 10:24 Dose: 200 mg Furosemide (Lasix Injection -) 40 mg IVPUSH DAILY [facility] Last Admin: 06/16/17 10:24 Dose: 40 mg Guaifenesin (Diabetic Tussin Dm -) 10 ml PO Q4H PRN PRN Reason: COUGH Heparin Sodium (Porcine) (Heparin -) 5,000 unit SQ TID [facility] Last Admin: 06/16/17 06:44 Dose: 5,000 unit Meropenem (Merrem (Restricted To Id) -) 500 mg in 10 mls @ 120 mls/hr IVPUSH Q8H-IV [facility] Last Admin: 06/16/17 10:25 Dose: 120 mls/hr Melatonin (Melatonin) 5 mg PO HS PRN PRN Reason: INSOMNIA Metoprolol Succinate (Toprol Xl -) 100 mg PO BID [facility] Last Admin: 06/16/17 10:25 Dose: 100 mg Metoprolol Succinate (Toprol Xl -) 50 mg PO ONCE ONE Stop: 06/16/17 23:46 Last Admin: 06/16/17 00:17 Dose: 50 mg Nystatin (Nystop Powder -) 1 applic TP BID [facility] Last Admin: 06/16/17 10:25 Dose: 1 applic Pantoprazole Sodium (Protonix Iv) 40 mg IVPUSH DAILY [facility] Last Admin: 06/16/17 10:25 Dose: 40 mg - Objective Vital Signs: Vital Signs Temperature 99 F 06/16/17 05:00 Pulse Rate 112 H 06/16/17 05:00 Respiratory Rate 20 06/16/17 05:00 Blood Pressure 102/54 06/16/17 05:00 O2 Sat by Pulse Oximetry (%) 98 06/15/17 21:00 Constitutional: Yes: No Distress, Calm Cardiovascular: Yes: Pulse Irregular Respiratory: Yes: On Nasal O2, Poor Air Entry, Other Gastrointestinal: Yes: Normal Bowel Sounds, Soft Musculoskeletal: Yes: WNL Extremities: Yes: WNL Neurological: Yes: Alert, Oriented Labs: CBC, BMP 06/16/17 06:38 06/16/17 06:38 INR, PTT INR 2.28 (0.82-1.09) H 06/16/17 06:38 Assessment/Plan 86 year old female with PMH of CHF, COPD, CAD, HTN, HLD, diverticulitis, and recent ICU admission for sepsis 2/2 PNA presenting from NH in acute respiratory distress readmitted to ICU for hypoxic respiratory failure 2/2 recurrent PNA c/ b CHF exacerbation, Plan: hypoxic resp failure pna septic shock lactic acidosis chf acute on chronic renal failure plan continue meropenam continue resp support physio rest as per primary team
--- NOTE | 2017-06-16 14:47 | PN ---
Progress Note (short form) - Note Progress Note: 86 year old female with history of hypertension, coronary artery disease, angina pectoris, COPD, hypercholesterolemia. Was admitted with acute respiratory failure and hypotension, hypoxia and required intubation.Transferred to telemetry. Had been in atrial flutter with controlled ventricular response, since readmission appears to have 2:1 AV conduction and rapid ventricular response. No SOB or chest pain reported. hemodynamically stable. Active Medications Amiodarone HCl (Cordarone -) 200 mg PO DAILY [facility] Furosemide (Lasix Injection -) 40 mg IVPUSH DAILY [facility] Heparin Sodium (Porcine) (Heparin -) 5,000 unit SQ TID [facility] Last Admin: 06/15/17 15:43 Dose: Not Given Meropenem (Merrem (Restricted To Id) -) 500 mg in 10 mls @ 120 mls/hr IVPUSH Q8H-IV [facility] Melatonin (Melatonin) 5 mg PO HS PRN PRN Reason: INSOMNIA Metoprolol Succinate (Toprol Xl -) 100 mg PO BID [facility] Nystatin (Nystop Powder -) 1 applic TP BID [facility] Pantoprazole Sodium (Protonix Iv) 40 mg IVPUSH DAILY [facility] 86 year old AA female, in no acute distress, pallor+, no clubbing, jaundice or cyanosis. Last Vital Signs Temp Pulse Resp BP Pulse Ox 97.8 F 116 H 20 128/59 98 06/16/17 09:00 06/16/17 09:00 06/16/17 09:00 06/16/17 09:00 06/16/17 09:00 Neck: Supple, no JVD, negative HJR, carotids 1-2+. Unable to hear a bruits. Heart: Distant heart sounds, no murmur or gallops appreciated. Lungs: Decreased breath sounds at both bases. Abdomen: Obese. No hepatosplenomegaly was appreciated. Extremities: No calf tenderness. 1+ bilateral ankle edema. CBC, BMP 06/16/17 06:38 06/16/17 06:38 Impression: 1. Acute left ventricular failure with flash pulmonary edema, resolved. Etiology : a. Ischemic heart disease. b. Sepsis. 2. Respiratory failure, most probably due to left ventricular failure. 3. COPD. 4. Chronic UTI. 5. Bronchial asthma. 6. Paroxysmal atrial flutter with 2:1 conduction. 7. History of obstructive sleep apnea. 8. Morbid obesity. 9. Anemia. Recommendations: 1. Reduce dose of Toprol XL to 50mg po BID and reintroduce [id number] po daily. 2. Once stable will need NICOLAS/Cardioversion. Prognosis: Guarded
--- NOTE | 2017-06-16 15:53 | PN ---
Progress Note, Physician Chief Complaint: Feels better History of Present Illness: Admitted with septic shock and rapid Afib Doing better May need cardiovertion - Current Medication List Current Medications: Active Medications Amiodarone HCl (Cordarone -) 200 mg PO DAILY [facility] Last Admin: 06/16/17 10:24 Dose: 200 mg Furosemide (Lasix Injection -) 40 mg IVPUSH DAILY [facility] Last Admin: 06/16/17 10:24 Dose: 40 mg Guaifenesin (Diabetic Tussin Dm -) 10 ml PO Q4H PRN PRN Reason: COUGH Heparin Sodium (Porcine) (Heparin -) 5,000 unit SQ TID [facility] Last Admin: 06/16/17 15:06 Dose: 5,000 unit Meropenem (Merrem (Restricted To Id) -) 500 mg in 10 mls @ 120 mls/hr IVPUSH Q8H-IV [facility] Last Admin: 06/16/17 10:25 Dose: 120 mls/hr Melatonin (Melatonin) 5 mg PO HS PRN PRN Reason: INSOMNIA Metoprolol Succinate (Toprol Xl -) 100 mg PO BID [facility] Last Admin: 06/16/17 10:25 Dose: 100 mg Metoprolol Succinate (Toprol Xl -) 50 mg PO ONCE ONE Stop: 06/16/17 23:46 Last Admin: 06/16/17 00:17 Dose: 50 mg Nystatin (Nystop Powder -) 1 applic TP BID [facility] Last Admin: 06/16/17 10:25 Dose: 1 applic Pantoprazole Sodium (Protonix Iv) 40 mg IVPUSH DAILY [facility] Last Admin: 06/16/17 10:25 Dose: 40 mg - Objective Vital Signs: Vital Signs Temperature 97.8 F 06/16/17 09:00 Pulse Rate 116 H 06/16/17 09:00 Respiratory Rate 20 06/16/17 09:00 Blood Pressure 128/59 06/16/17 09:00 O2 Sat by Pulse Oximetry (%) 98 06/16/17 09:00 Constitutional: Yes: No Distress Eyes: Yes: WNL HENT: Yes: WNL Neck: Yes: WNL Cardiovascular: Yes: Pulse Irregular Respiratory: Yes: WNL Gastrointestinal: Yes: WNL ...Rectal Exam: Yes: Deferred Genitourinary: Yes: WNL Musculoskeletal: Yes: Muscle Weakness Integumentary: Yes: Pressure Ulcer Labs: CBC, BMP 06/16/17 06:38 06/16/17 06:38 INR, PTT INR 2.28 (0.82-1.09) H 06/16/17 06:38
[2017-06-16] MEDS: guaiFENesin/D-M SUGAR-FREE/ACLHOL-FREE 118 ML BOTTLE PO PRN (17:34)
[2017-06-16] MEDS: CLOTRIMAZOLE/BETAMET DIPROP 15 GM TUBE TP SCH (22:21)
[2017-06-16] MEDS ORDERED: METOPROLOL SUCCINATE 50 MG TAB.SR.24H (FP) PO ONE (23:45)
[2017-06-17] MEDS: MEROPENEM 500 MG PUSH 500 MG/10 ML DISP.SYRIN IVPUSH SCH ×3 (03:14→18:11)
[2017-06-17] MEDS: HEPARIN NA (PORCINE) 5,000 UNITS/ML 1ML VIAL SQ SCH ×3 (05:42→21:13)
[2017-06-17 07:14] LABS: INR 2.1 (0.82-1.09); PROTHROMBIN TIME (PATIENT) 23.7 SEC (9.98-11.88)
[2017-06-17 07:23] LABS: ANION GAP 8 (8-16); BLOOD UREA NITROGEN 29 mg/dL (7-18); CHLORIDE 108 mmol/L (98-107); CO2 29 mmol/L (21-32); GLUCOSE,RANDOM 89 mg/dL (74-106); POTASSIUM 3.9 mmol/L (3.5-5.1); SODIUM 145 mmol/L (136-145)
[2017-06-17 07:26] LABS: CREATININE 2.1 mg/dL (0.55-1.02)
[2017-06-17] MEDS: AMIODARONE HCL 200 MG TABLET (FP) PO SCH (09:31)
[2017-06-17] MEDS: METOPROLOL SUCCINATE 100 MG TAB.SR.24H (FP) PO SCH (09:31)
[2017-06-17] MEDS: FUROSEMIDE 40 MG/4 ML INJECTABLE VIAL IVPUSH SCH (09:32)
[2017-06-17] MEDS: CLOTRIMAZOLE/BETAMET DIPROP 15 GM TUBE TP SCH ×2 (09:36→21:21)
[2017-06-17] MEDS: NYSTATIN POWDER 100,000 UNITS/GM - 15 GM TOPICAL POWDER TP SCH ×2 (09:36→21:21)
[2017-06-17] MEDS: PANTOPRAZOLE SODIUM 40 MG VIAL IVPUSH SCH (09:37)
[2017-06-17] MEDS ORDERED: PT OWN MED DRAWER 7, Y5N ONE ×2 (09:40→17:30)
--- NOTE | 2017-06-17 11:03 | PN ---
Progress Note, Physician History of Present Illness: PULMONARY ALERT,FEELING BETTER SOB IMPROVING,+ COUGH - Current Medication List Current Medications: Active Medications Amiodarone HCl (Cordarone -) 200 mg PO DAILY [facility] Last Admin: 06/17/17 09:31 Dose: 200 mg Clotrimazole (Lotrisone Cream (Small Tube)) 1 applic TP BID [facility] Last Admin: 06/17/17 09:36 Dose: 1 applic Furosemide (Lasix Injection -) 40 mg IVPUSH DAILY [facility] Last Admin: 06/17/17 09:32 Dose: 40 mg Guaifenesin (Diabetic Tussin Dm -) 10 ml PO Q4H PRN PRN Reason: COUGH Last Admin: 06/16/17 17:34 Dose: 10 ml Heparin Sodium (Porcine) (Heparin -) 5,000 unit SQ TID [facility] Last Admin: 06/17/17 05:42 Dose: 5,000 unit Meropenem (Merrem (Restricted To Id) -) 500 mg in 10 mls @ 120 mls/hr IVPUSH Q8H-IV [facility] Last Admin: 06/17/17 09:40 Dose: 120 mls/hr Melatonin (Melatonin) 5 mg PO HS PRN PRN Reason: INSOMNIA Metoprolol Succinate (Toprol Xl -) 100 mg PO BID [facility] Last Admin: 06/17/17 09:31 Dose: 100 mg Nystatin (Nystop Powder -) 1 applic TP BID [facility] Last Admin: 06/17/17 09:36 Dose: 1 applic Pantoprazole Sodium (Protonix Iv) 40 mg IVPUSH DAILY [facility] Last Admin: 06/17/17 09:37 Dose: 40 mg - Objective Vital Signs: Vital Signs Temperature 97.8 F 06/17/17 05:21 Pulse Rate 111 H 06/17/17 05:21 Respiratory Rate 20 06/17/17 05:21 Blood Pressure 98/59 06/17/17 05:21 O2 Sat by Pulse Oximetry (%) 98 06/16/17 20:18 Constitutional: Yes: Calm, Obese Eyes: Yes: WNL HENT: Yes: WNL Cardiovascular: Yes: WNL Respiratory: Yes: Diminished Gastrointestinal: Yes: Normal Bowel Sounds, Soft Extremities: Yes: WNL Edema: Yes Labs: CBC, BMP 06/16/17 06:38 06/17/17 06:40 INR, PTT INR 2.10 (0.82-1.09) H 06/17/17 06:40 - ....Imaging Chest X-ray: Report Reviewed, Image Reviewed Problem List - Problems (1) CHF (NYHA class II, ACC/AHA stage C) Code(s): I50.9 - HEART FAILURE, UNSPECIFIED (2) Respiratory distress, acute Code(s): R06.03 - ACUTE RESPIRATORY DISTRESS (3) Sepsis Code(s): A41.9 - SEPSIS, UNSPECIFIED ORGANISM Qualifiers: Sepsis type: sepsis due to unspecified organism Qualified Code(s): A41.9 - Sepsis, unspecified organism (4) Atrial fibrillation with RVR Code(s): I48.91 - UNSPECIFIED ATRIAL FIBRILLATION (5) COPD mixed type Code(s): J44.9 - CHRONIC OBSTRUCTIVE PULMONARY DISEASE, UNSPECIFIED (6) Healthcare-associated pneumonia Code(s): J18.9 - PNEUMONIA, UNSPECIFIED ORGANISM (7) Persistent atrial fibrillation Code(s): I48.1 - PERSISTENT ATRIAL FIBRILLATION (8) Renal function impairment Code(s): N28.9 - DISORDER OF KIDNEY AND URETER, UNSPECIFIED (9) Wheezing Code(s): R06.2 - WHEEZING (10) CKD stage G3b/A3, GFR 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 and albumin creatinine ratio >300 mg/g Code(s): N18.3 - CHRONIC KIDNEY DISEASE, STAGE 3 (MODERATE) (11) Acute on chronic renal failure Code(s): N17.9 - ACUTE KIDNEY FAILURE, UNSPECIFIED; N18.9 - CHRONIC KIDNEY DISEASE, UNSPECIFIED Assessment/Plan A/P Acute Hypoxic Respiratory Failure improving Pneumonia S/P Septic Shock Atrial Flutter with RVR Acute on Chronic Systolic Heart Failure Acute on Chronic Renal Failure Lactic Acidosis COPD CAD HTN Hyperlipidemia - antibiotics as per ID - taper FiO2 to keep Spo2 >90% - lasix - PO as tolerated - DVT/GI prophylaxis - anti-tussives - daily wts - monitor lytes,renal function DR GOMEZ
--- NOTE | 2017-06-17 12:04 | PN ---
Progress Note (short form) - Note Progress Note: 86 year old female with history of hypertension, coronary artery disease, angina pectoris, COPD, hypercholesterolemia, recent acute respiratory failure. Had been in atrial flutter with controlled ventricular response, since readmission appears to have 2:1 AV conduction,rate of 116/min. No SOB or chest pain reported, hemodynamically stable. Active Medications Generic Name Dose Route Start Last Admin Trade Name Freq PRN Reason Stop Dose Admin Amiodarone HCl 200 mg 06/16/17 10:00 06/17/17 09:31 Cordarone - PO 200 mg DAILY [facility] Administration Clotrimazole 1 applic 06/16/17 22:00 06/17/17 09:36 Lotrisone Cream (Small Tube) TP 1 applic BID [facility] Administration Furosemide 40 mg 06/16/17 10:00 06/17/17 09:32 Lasix Injection - IVPUSH 40 mg DAILY [facility] Administration Guaifenesin 10 ml 06/16/17 10:09 06/16/17 17:34 Diabetic Tussin Dm - PO 10 ml Q4H PRN Administration COUGH Heparin Sodium (Porcine) 5,000 unit 06/15/17 14:00 06/17/17 05:42 Heparin - SQ 5,000 unit TID [facility] Administration Meropenem 500 mg in 10 mls @ 120 mls/hr 06/15/17 18:00 06/17/17 09:40 Merrem (Restricted To Id) - IVPUSH 120 mls/hr Q8H-IV [facility] Administration Melatonin 5 mg 06/15/17 12:50 Melatonin PO HS PRN INSOMNIA Metoprolol Succinate 100 mg 06/16/17 10:00 06/17/17 09:31 Toprol Xl - PO 100 mg BID [facility] Administration Nystatin 1 applic 06/15/17 22:00 06/17/17 09:36 Nystop Powder - TP 1 applic BID [facility] Administration Pantoprazole Sodium 40 mg 06/16/17 10:00 06/17/17 09:37 Protonix Iv IVPUSH 40 mg DAILY [facility] Administration 86 year old AA female, in no acute distress, pallor+, no clubbing, jaundice or cyanosis. Last Vital Signs Temp Pulse Resp BP Pulse Ox 98.7 F 113 H 24 111/63 97 06/17/17 10:00 06/17/17 10:00 06/17/17 10:00 06/17/17 10:00 06/17/17 09:00 NECK: Supple, no JVD, carotids equal, no bruits Heart: Distant heart sounds, no murmur or gallops appreciated. Lungs: Decreased breath sounds at both bases. Abdomen: Obese. No hepatosplenomegaly was appreciated. Extremities: No calf tenderness or dependent edema. CBC, BMP 06/16/17 06:38 06/17/17 06:40 Impression: 1. Acute left ventricular failure with flash pulmonary edema, resolve 2. Respiratory failure due to left ventricular failure. 3. COPD. 4. Chronic UTI. 5. Bronchial asthma. 6. Paroxysmal atrial flutter with 2:1 conduction. 7. History of obstructive sleep apnea. 8. Morbid obesity. 9. Anemia. Recommendations: 1. Reduce dose of Toprol XL to 50mg po BID and reintroduce [id number] po daily, to be started today. 2. Once stable will need NICOLAS/Cardioversion. Prognosis: Guarded
--- NOTE | 2017-06-17 15:00 | PN ---
Progress Note, Physician Chief Complaint: Feels better History of Present Illness: Admitted with sepsis and CHF Doing better - Current Medication List Current Medications: Active Medications Amiodarone HCl (Cordarone -) 200 mg PO DAILY [facility] Last Admin: 06/17/17 09:31 Dose: 200 mg Clotrimazole (Lotrisone Cream (Small Tube)) 1 applic TP BID [facility] Last Admin: 06/17/17 09:36 Dose: 1 applic Diltiazem HCl (Cardizem Cd -) 120 mg PO DAILY [facility] Last Admin: 06/17/17 13:11 Dose: 120 mg Furosemide (Lasix Injection -) 40 mg IVPUSH DAILY [facility] Last Admin: 06/17/17 09:32 Dose: 40 mg Guaifenesin (Diabetic Tussin Dm -) 10 ml PO Q4H PRN PRN Reason: COUGH Last Admin: 06/16/17 17:34 Dose: 10 ml Heparin Sodium (Porcine) (Heparin -) 5,000 unit SQ TID [facility] Last Admin: 06/17/17 13:11 Dose: 5,000 unit Meropenem (Merrem (Restricted To Id) -) 500 mg in 10 mls @ 120 mls/hr IVPUSH Q8H-IV [facility] Last Admin: 06/17/17 09:40 Dose: 120 mls/hr Melatonin (Melatonin) 5 mg PO HS PRN PRN Reason: INSOMNIA Metoprolol Succinate (Toprol Xl -) 50 mg PO BID [facility] Nystatin (Nystop Powder -) 1 applic TP BID [facility] Last Admin: 06/17/17 09:36 Dose: 1 applic Pantoprazole Sodium (Protonix Iv) 40 mg IVPUSH DAILY [facility] Last Admin: 06/17/17 09:37 Dose: 40 mg - Objective Vital Signs: Vital Signs Temperature 98.7 F 06/17/17 10:00 Pulse Rate 113 H 06/17/17 10:00 Respiratory Rate 24 06/17/17 10:00 Blood Pressure 111/63 06/17/17 10:00 O2 Sat by Pulse Oximetry (%) 97 06/17/17 09:00 Constitutional: Yes: No Distress Eyes: Yes: WNL HENT: Yes: WNL Neck: Yes: Supple Cardiovascular: Yes: Pulse Irregular Gastrointestinal: Yes: Normal Bowel Sounds ...Rectal Exam: Yes: Deferred Genitourinary: Yes: [place] Present Breast(s): Yes: WNL Musculoskeletal: Yes: Muscle Weakness Neurological: Yes: Alert Labs: CBC, BMP 06/16/17 06:38 06/17/17 06:40 INR, PTT INR 2.10 (0.82-1.09) H 06/17/17 06:40 Assessment/Plan DC barro[place] PT for ambulation
--- NOTE | 2017-06-17 15:23 | PN ---
Progress Note, Physician History of Present Illness: starting to feel better breathing better still tachy - Current Medication List Current Medications: Active Medications Amiodarone HCl (Cordarone -) 200 mg PO DAILY [facility] Last Admin: 06/17/17 09:31 Dose: 200 mg Clotrimazole (Lotrisone Cream (Small Tube)) 1 applic TP BID [facility] Last Admin: 06/17/17 09:36 Dose: 1 applic Diltiazem HCl (Cardizem Cd -) 120 mg PO DAILY [facility] Last Admin: 06/17/17 13:11 Dose: 120 mg Furosemide (Lasix Injection -) 40 mg IVPUSH DAILY [facility] Last Admin: 06/17/17 09:32 Dose: 40 mg Guaifenesin (Diabetic Tussin Dm -) 10 ml PO Q4H PRN PRN Reason: COUGH Last Admin: 06/16/17 17:34 Dose: 10 ml Heparin Sodium (Porcine) (Heparin -) 5,000 unit SQ TID [facility] Last Admin: 06/17/17 13:11 Dose: 5,000 unit Meropenem (Merrem (Restricted To Id) -) 500 mg in 10 mls @ 120 mls/hr IVPUSH Q8H-IV [facility] Last Admin: 06/17/17 09:40 Dose: 120 mls/hr Melatonin (Melatonin) 5 mg PO HS PRN PRN Reason: INSOMNIA Metoprolol Succinate (Toprol Xl -) 50 mg PO BID [facility] Nystatin (Nystop Powder -) 1 applic TP BID [facility] Last Admin: 06/17/17 09:36 Dose: 1 applic Pantoprazole Sodium (Protonix Iv) 40 mg IVPUSH DAILY [facility] Last Admin: 06/17/17 09:37 Dose: 40 mg - Objective Vital Signs: Vital Signs Temperature 98.7 F 06/17/17 10:00 Pulse Rate 113 H 06/17/17 10:00 Respiratory Rate 24 06/17/17 10:00 Blood Pressure 111/63 06/17/17 10:00 O2 Sat by Pulse Oximetry (%) 97 06/17/17 09:00 Constitutional: Yes: No Distress, Calm Cardiovascular: Yes: Tachycardia, Pulse Irregular, S1, S2 Respiratory: Yes: Regular, Poor Air Entry, Other Gastrointestinal: Yes: Normal Bowel Sounds, Soft Musculoskeletal: Yes: WNL Extremities: Yes: WNL Neurological: Yes: Alert, Oriented Psychiatric: Yes: Alert, Oriented Labs: CBC, BMP 06/16/17 06:38 06/17/17 06:40 INR, PTT INR 2.10 (0.82-1.09) H 06/17/17 06:40 Assessment/Plan 86 year old female with PMH of CHF, COPD, CAD, HTN, HLD, diverticulitis, and recent ICU admission for sepsis 2/2 PNA presenting from NH in acute respiratory distress readmitted to ICU for hypoxic respiratory failure 2/2 recurrent PNA c/ b CHF exacerbation, Plan: hypoxic resp failure pna septic shock lactic acidosis chf acute on chronic renal failure plan continue meropenam continue resp support physio rest as per primary team cardio on case
[2017-06-17] MEDS: guaiFENesin/D-M SUGAR-FREE/ACLHOL-FREE 118 ML BOTTLE PO PRN ×2 (17:33→22:05)
[2017-06-17] MEDS: MELATONIN 5 MG TABLETS PO PRN (21:14)
[2017-06-17] MEDS: METOPROLOL SUCCINATE 50 MG TAB.SR.24H (FP) PO SCH (21:14)
[2017-06-18] MEDS: MEROPENEM 500 MG PUSH 500 MG/10 ML DISP.SYRIN IVPUSH SCH ×3 (03:05→18:54)
[2017-06-18] MEDS: HEPARIN NA (PORCINE) 5,000 UNITS/ML 1ML VIAL SQ SCH ×3 (06:29→21:42)
[2017-06-18 07:49] LABS: INR 1.75 (0.82-1.09); PROTHROMBIN TIME (PATIENT) 19.8 SEC (9.98-11.88)
[2017-06-18 08:17] LABS: ANION GAP 6 (8-16); BLOOD UREA NITROGEN 34 mg/dL (7-18); CHLORIDE 107 mmol/L (98-107); CO2 30 mmol/L (21-32); GLUCOSE,RANDOM 95 mg/dL (74-106); SODIUM 143 mmol/L (136-145)
[2017-06-18 08:18] LABS: CREATININE 2.3 mg/dL (0.55-1.02)
[2017-06-18] MEDS ORDERED: PT OWN MED DRAWER 7, Y5N ONE ×2 (08:28→18:52)
[2017-06-18] MEDS: AMIODARONE HCL 200 MG TABLET (FP) PO SCH (09:17)
[2017-06-18] MEDS: FUROSEMIDE 40 MG/4 ML INJECTABLE VIAL IVPUSH SCH (09:18)
[2017-06-18] MEDS: PANTOPRAZOLE SODIUM 40 MG VIAL IVPUSH SCH (09:18)
--- NOTE | 2017-06-18 10:54 | PN ---
Progress Note (short form) - Note Progress Note: 86 year old female with history of hypertension, coronary artery disease, angina pectoris, COPD, hypercholesterolemia, recent acute respiratory failure. Had been in atrial flutter 2:1 AV conduction,rate of 116/ min. No SOB or chest pain reported, hemodynamically stable. Patient had lightheadedness while she was in the bathroom and had to be brought back to her bed. No palpitations had been reported. Active Medications Generic Name Dose Route Start Last Admin Trade Name Freq PRN Reason Stop Dose Admin Amiodarone HCl 200 mg 06/16/17 10:00 06/18/17 09:17 Cordarone - PO 200 mg DAILY [facility] Administration Clotrimazole 1 applic 06/16/17 22:00 06/17/17 21:21 Lotrisone Cream (Small Tube) TP 1 applic BID [facility] Administration Diltiazem HCl 120 mg 06/17/17 12:45 06/18/17 09:17 Cardizem Cd - PO 120 mg DAILY [facility] Administration Furosemide 40 mg 06/16/17 10:00 06/18/17 09:18 Lasix Injection - IVPUSH 40 mg DAILY [facility] Administration Guaifenesin 10 ml 06/16/17 10:09 06/17/17 22:05 Diabetic Tussin Dm - PO 10 ml Q4H PRN Administration COUGH Heparin Sodium (Porcine) 5,000 unit 06/15/17 14:00 06/18/17 06:29 Heparin - SQ 5,000 unit TID [facility] Administration Meropenem 500 mg in 10 mls @ 120 mls/hr 06/15/17 18:00 06/18/17 09:19 Merrem (Restricted To Id) - IVPUSH 120 mls/hr Q8H-IV [facility] Administration Melatonin 5 mg 06/15/17 12:50 06/17/17 21:14 Melatonin PO 5 mg HS PRN Administration INSOMNIA Metoprolol Succinate 50 mg 06/17/17 22:00 06/17/17 21:14 Toprol Xl - PO 50 mg BID [facility] Administration Nystatin 1 applic 06/15/17 22:00 06/17/17 21:21 Nystop Powder - TP 1 applic BID [facility] Administration Pantoprazole Sodium 40 mg 06/16/17 10:00 06/18/17 09:18 Protonix Iv IVPUSH 40 mg DAILY [facility] Administration 86 year old AA female, in no acute distress, pallor+, no clubbing, jaundice or cyanosis. Last Vital Signs Temp Pulse Resp BP Pulse Ox 98.6 F 106 H 22 104/66 95 06/18/17 10:00 06/18/17 10:00 06/18/17 10:00 06/18/17 10:00 06/18/17 09:00 NECK: Supple, no JVD, carotids equal, no bruits Heart: Distant heart sounds, no murmur or gallops appreciated. Lungs: Decreased breath sounds at both bases. Abdomen: Obese. No hepatosplenomegaly was appreciated. Extremities: No calf tenderness or dependent edema. CBC, BMP 06/16/17 06:38 06/18/17 06:00 Impression: 1. Acute left ventricular failure with flash pulmonary edema, resolved. 2. Respiratory failure due to left ventricular failure. 3. COPD. 4. Chronic UTI. 5. Bronchial asthma. 6. Paroxysmal atrial flutter with 2:1 conduction. 7. History of obstructive sleep apnea. 8. Morbid obesity. 9. Anemia. Recommendations: 1. If there is no decrease in heart rate will need to increase the dose of Topral. Initially to 75 mg BID and if necessary 100 mg BID to control heart rate. 2. NICOLAS/Cardioversion was again discussed with the patient. She is not willing to undergo the procedure. Prognosis: Guarded
--- NOTE | 2017-06-18 11:20 | PN ---
Progress Note, Physician History of Present Illness: PULMONARY ALERT,COMFORTABLE,C/O WEAKNESS,SOB IMPROVING - Current Medication List Current Medications: Active Medications Amiodarone HCl (Cordarone -) 200 mg PO DAILY [facility] Last Admin: 06/18/17 09:17 Dose: 200 mg Clotrimazole (Lotrisone Cream (Small Tube)) 1 applic TP BID [facility] Last Admin: 06/17/17 21:21 Dose: 1 applic Diltiazem HCl (Cardizem Cd -) 120 mg PO DAILY [facility] Last Admin: 06/18/17 09:17 Dose: 120 mg Furosemide (Lasix Injection -) 40 mg IVPUSH DAILY [facility] Last Admin: 06/18/17 09:18 Dose: 40 mg Guaifenesin (Diabetic Tussin Dm -) 10 ml PO Q4H PRN PRN Reason: COUGH Last Admin: 06/17/17 22:05 Dose: 10 ml Heparin Sodium (Porcine) (Heparin -) 5,000 unit SQ TID [facility] Last Admin: 06/18/17 06:29 Dose: 5,000 unit Meropenem (Merrem (Restricted To Id) -) 500 mg in 10 mls @ 120 mls/hr IVPUSH Q8H-IV [facility] Last Admin: 06/18/17 09:19 Dose: 120 mls/hr Melatonin (Melatonin) 5 mg PO HS PRN PRN Reason: INSOMNIA Last Admin: 06/17/17 21:14 Dose: 5 mg Metoprolol Succinate (Toprol Xl -) 50 mg PO BID [facility] Last Admin: 06/17/17 21:14 Dose: 50 mg Nystatin (Nystop Powder -) 1 applic TP BID [facility] Last Admin: 06/17/17 21:21 Dose: 1 applic Pantoprazole Sodium (Protonix Iv) 40 mg IVPUSH DAILY [facility] Last Admin: 06/18/17 09:18 Dose: 40 mg - Objective Vital Signs: Vital Signs Temperature 98.6 F 06/18/17 10:00 Pulse Rate 106 H 06/18/17 10:00 Respiratory Rate 22 06/18/17 10:00 Blood Pressure 104/66 06/18/17 10:00 O2 Sat by Pulse Oximetry (%) 95 06/18/17 09:00 Constitutional: Yes: Calm, Obese Eyes: Yes: WNL HENT: Yes: WNL Neck: Yes: WNL Cardiovascular: Yes: Pulse Irregular, S1, S2 Respiratory: Yes: Diminished Gastrointestinal: Yes: Normal Bowel Sounds, Soft Extremities: Yes: WNL Edema: Yes Labs: CBC, BMP 06/16/17 06:38 06/18/17 06:00 INR, PTT INR 1.75 (0.82-1.09) H 06/18/17 06:00 Problem List - Problems (1) CHF (NYHA class II, ACC/AHA stage C) Code(s): I50.9 - HEART FAILURE, UNSPECIFIED (2) Respiratory distress, acute Code(s): R06.03 - ACUTE RESPIRATORY DISTRESS (3) Sepsis Code(s): A41.9 - SEPSIS, UNSPECIFIED ORGANISM Qualifiers: Sepsis type: sepsis due to unspecified organism Qualified Code(s): A41.9 - Sepsis, unspecified organism (4) Atrial fibrillation with RVR Code(s): I48.91 - UNSPECIFIED ATRIAL FIBRILLATION (5) COPD mixed type Code(s): J44.9 - CHRONIC OBSTRUCTIVE PULMONARY DISEASE, UNSPECIFIED (6) Healthcare-associated pneumonia Code(s): J18.9 - PNEUMONIA, UNSPECIFIED ORGANISM (7) Persistent atrial fibrillation Code(s): I48.1 - PERSISTENT ATRIAL FIBRILLATION (8) Renal function impairment Code(s): N28.9 - DISORDER OF KIDNEY AND URETER, UNSPECIFIED (9) Wheezing Code(s): R06.2 - WHEEZING (10) CKD stage G3b/A3, GFR 30-44 and albumin creatinine ratio >300 mg/g Code(s): N18.3 - CHRONIC KIDNEY DISEASE, STAGE 3 (MODERATE) (11) Acute on chronic renal failure Code(s): N17.9 - ACUTE KIDNEY FAILURE, UNSPECIFIED; N18.9 - CHRONIC KIDNEY DISEASE, UNSPECIFIED Assessment/Plan A/P Acute Hypoxic Respiratory Failure improving Pneumonia S/P Septic Shock Atrial Flutter with RVR Acute on Chronic Systolic Heart Failure Acute on Chronic Renal Failure Lactic Acidosis COPD CAD HTN Hyperlipidemia - continue antibiotics as per ID - taper FiO2 to keep Spo2 >90% - lasix - PO as tolerated - DVT/GI prophylaxis - anti-tussives - daily wts - monitor lytes,renal function DR GOMEZ
[2017-06-18] MEDS: guaiFENesin/D-METHORPHAN HB 10 ML UNIT-DOSE CUPS PO PRN (11:36)
[2017-06-18] MEDS: METOPROLOL SUCCINATE 50 MG TAB.SR.24H (FP) PO SCH ×2 (12:11→21:42)
[2017-06-18] MEDS: NYSTATIN POWDER 100,000 UNITS/GM - 15 GM TOPICAL POWDER TP SCH ×2 (12:11→22:35)
[2017-06-18] MEDS: CLOTRIMAZOLE/BETAMET DIPROP 15 GM TUBE TP SCH ×2 (12:11→22:00)
--- NOTE | 2017-06-18 18:31 | PN ---
Progress Note, Physician History of Present Illness: doing much better family in room d/w daughter - Current Medication List Current Medications: Active Medications Amiodarone HCl (Cordarone -) 200 mg PO DAILY [facility] Last Admin: 06/18/17 09:17 Dose: 200 mg Clotrimazole (Lotrisone Cream (Small Tube)) 1 applic TP BID [facility] Last Admin: 06/18/17 12:11 Dose: 1 applic Diltiazem HCl (Cardizem Cd -) 120 mg PO DAILY [facility] Last Admin: 06/18/17 09:17 Dose: 120 mg Furosemide (Lasix Injection -) 40 mg IVPUSH DAILY [facility] Last Admin: 06/18/17 09:18 Dose: 40 mg Guaifenesin (Robitussin Dm -) 10 ml PO Q4H PRN PRN Reason: COUGH Last Admin: 06/18/17 11:36 Dose: 10 ml Heparin Sodium (Porcine) (Heparin -) 5,000 unit SQ TID [facility] Last Admin: 06/18/17 15:58 Dose: 5,000 unit Meropenem (Merrem (Restricted To Id) -) 500 mg in 10 mls @ 120 mls/hr IVPUSH Q8H-IV [facility] Last Admin: 06/18/17 09:19 Dose: 120 mls/hr Melatonin (Melatonin) 5 mg PO HS PRN PRN Reason: INSOMNIA Last Admin: 06/17/17 21:14 Dose: 5 mg Metoprolol Succinate (Toprol Xl -) 50 mg PO BID [facility] Last Admin: 06/18/17 12:11 Dose: 50 mg Nystatin (Nystop Powder -) 1 applic TP BID [facility] Last Admin: 06/18/17 12:11 Dose: 1 applic Pantoprazole Sodium (Protonix Iv) 40 mg IVPUSH DAILY [facility] Last Admin: 06/18/17 09:18 Dose: 40 mg - Objective Vital Signs: Vital Signs Temperature 98.6 F 06/18/17 10:00 Pulse Rate 106 H 06/18/17 10:00 Respiratory Rate 22 06/18/17 10:00 Blood Pressure 104/66 06/18/17 10:00 O2 Sat by Pulse Oximetry (%) 95 06/18/17 09:00 Constitutional: Yes: No Distress, Calm Cardiovascular: Yes: Pulse Irregular Respiratory: Yes: Regular, Poor Air Entry Gastrointestinal: Yes: Normal Bowel Sounds, Soft Musculoskeletal: Yes: WNL Extremities: Yes: WNL Neurological: Yes: Alert, Oriented Psychiatric: Yes: Alert Labs: CBC, BMP 06/16/17 06:38 06/18/17 06:00 INR, PTT INR 1.75 (0.82-1.09) H 06/18/17 06:00 Assessment/Plan 86 year old female with PMH of CHF, COPD, CAD, HTN, HLD, diverticulitis, and recent ICU admission for sepsis 2/2 PNA presenting from NH in acute respiratory distress readmitted to ICU for hypoxic respiratory failure 2/2 recurrent PNA c/ b CHF exacerbation, Plan: hypoxic resp failure pna septic shock lactic acidosis chf acute on chronic renal failure plan continue meropenam continue resp support physio rest as per primary team await for plan by cardio
[2017-06-19] MEDS: guaiFENesin/D-METHORPHAN HB 10 ML UNIT-DOSE CUPS PO PRN ×2 (02:34→20:44)
[2017-06-19] MEDS ORDERED: PT OWN MED DRAWER 7, Y5N ONE ×2 (02:57→10:54)
[2017-06-19] MEDS: MEROPENEM 500 MG PUSH 500 MG/10 ML DISP.SYRIN IVPUSH SCH ×3 (03:06→18:12)
[2017-06-19] MEDS: HEPARIN NA (PORCINE) 5,000 UNITS/ML 1ML VIAL SQ SCH ×2 (06:23→15:11)
[2017-06-19 06:55] LABS: INR 1.58 (0.82-1.09); PROTHROMBIN TIME (PATIENT) 17.9 SEC (9.98-11.88)
[2017-06-19] MEDS: METOPROLOL SUCCINATE 50 MG TAB.SR.24H (FP) PO SCH ×2 (10:56→21:52)
[2017-06-19] MEDS: FUROSEMIDE 40 MG/4 ML INJECTABLE VIAL IVPUSH SCH (10:56)
[2017-06-19] MEDS: AMIODARONE HCL 200 MG TABLET (FP) PO SCH (10:56)
[2017-06-19] MEDS: PANTOPRAZOLE SODIUM 40 MG VIAL IVPUSH SCH (11:01)
--- NOTE | 2017-06-19 12:26 | PN ---
Progress Note, Physician History of Present Illness: pulmonary alert,oob-chair,-resp distress - Current Medication List Current Medications: Active Medications Amiodarone HCl (Cordarone -) 200 mg PO DAILY [facility] Last Admin: 06/19/17 10:56 Dose: 200 mg Clotrimazole (Lotrisone Cream (Small Tube)) 1 applic TP BID [facility] Last Admin: 06/18/17 22:00 Dose: 1 applic Diltiazem HCl (Cardizem Cd -) 120 mg PO DAILY [facility] Last Admin: 06/19/17 10:56 Dose: 120 mg Furosemide (Lasix Injection -) 40 mg IVPUSH DAILY [facility] Last Admin: 06/19/17 10:56 Dose: 40 mg Guaifenesin (Robitussin Dm -) 10 ml PO Q4H PRN PRN Reason: COUGH Last Admin: 06/19/17 02:34 Dose: 10 ml Heparin Sodium (Porcine) (Heparin -) 5,000 unit SQ TID [facility] Last Admin: 06/19/17 06:23 Dose: 5,000 unit Meropenem (Merrem (Restricted To Id) -) 500 mg in 10 mls @ 120 mls/hr IVPUSH Q8H-IV [facility] Last Admin: 06/19/17 10:57 Dose: 120 mls/hr Melatonin (Melatonin) 5 mg PO HS PRN PRN Reason: INSOMNIA Last Admin: 06/17/17 21:14 Dose: 5 mg Metoprolol Succinate (Toprol Xl -) 50 mg PO BID [facility] Last Admin: 06/19/17 10:56 Dose: 50 mg Nystatin (Nystop Powder -) 1 applic TP BID [facility] Last Admin: 06/18/17 22:35 Dose: 1 applic Pantoprazole Sodium (Protonix Iv) 40 mg IVPUSH DAILY [facility] Last Admin: 06/19/17 11:01 Dose: 40 mg - Objective Vital Signs: Vital Signs Temperature 98.1 F 06/19/17 05:00 Pulse Rate 110 H 06/19/17 05:00 Respiratory Rate 20 06/19/17 05:00 Blood Pressure 102/54 06/19/17 05:00 O2 Sat by Pulse Oximetry (%) 98 06/18/17 21:00 Constitutional: Yes: Well Nourished, Calm, Obese Eyes: Yes: WNL HENT: Yes: WNL Neck: Yes: WNL Cardiovascular: Yes: Pulse Irregular, S1, S2 Respiratory: Yes: Diminished Gastrointestinal: Yes: Normal Bowel Sounds, Soft Extremities: Yes: WNL Edema: Yes Labs: CBC, BMP INR, PTT INR 1.58 (0.82-1.09) H 06/19/17 06:00 Problem List - Problems (1) CHF (NYHA class II, ACC/AHA stage C) Code(s): I50.9 - HEART FAILURE, UNSPECIFIED (2) Respiratory distress, acute Code(s): R06.03 - ACUTE RESPIRATORY DISTRESS (3) Sepsis Code(s): A41.9 - SEPSIS, UNSPECIFIED ORGANISM Qualifiers: Sepsis type: sepsis due to unspecified organism Qualified Code(s): A41.9 - Sepsis, unspecified organism (4) Atrial fibrillation with RVR Code(s): I48.91 - UNSPECIFIED ATRIAL FIBRILLATION (5) COPD mixed type Code(s): J44.9 - CHRONIC OBSTRUCTIVE PULMONARY DISEASE, UNSPECIFIED (6) Healthcare-associated pneumonia Code(s): J18.9 - PNEUMONIA, UNSPECIFIED ORGANISM (7) Persistent atrial fibrillation Code(s): I48.1 - PERSISTENT ATRIAL FIBRILLATION (8) Renal function impairment Code(s): N28.9 - DISORDER OF KIDNEY AND URETER, UNSPECIFIED (9) Wheezing Code(s): R06.2 - WHEEZING (10) CKD stage G3b/A3, GFR 30-44 and albumin creatinine ratio >300 mg/g Code(s): N18.3 - CHRONIC KIDNEY DISEASE, STAGE 3 (MODERATE) (11) Acute on chronic renal failure Code(s): N17.9 - ACUTE KIDNEY FAILURE, UNSPECIFIED; N18.9 - CHRONIC KIDNEY DISEASE, UNSPECIFIED Assessment/Plan A/P Acute Hypoxic Respiratory Failure improved Pneumonia S/P Septic Shock Atrial Flutter with RVR Acute on Chronic Systolic Heart Failure Acute on Chronic Renal Failure Lactic Acidosis COPD CAD HTN Hyperlipidemia - antibiotics as per ID - taper FiO2 to keep Spo2 >90% - lasix - PO as tolerated - DVT/GI prophylaxis - anti-tussives - daily wts - monitor lytes,renal function - ? cardioversion DR GOMEZ
[2017-06-19] MEDS: NYSTATIN POWDER 100,000 UNITS/GM - 15 GM TOPICAL POWDER TP SCH ×2 (14:53→21:34)
[2017-06-19] MEDS: CLOTRIMAZOLE/BETAMET DIPROP 15 GM TUBE TP SCH ×2 (14:53→21:34)
--- NOTE | 2017-06-19 15:29 | PN ---
Progress Note, Physician Chief Complaint: Feels better History of Present Illness: Case discussed with Dr Melendrez , may need cardio vertion - Current Medication List Current Medications: Active Medications Amiodarone HCl (Cordarone -) 200 mg PO DAILY [facility] Last Admin: 06/19/17 10:56 Dose: 200 mg Clotrimazole (Lotrisone Cream (Small Tube)) 1 applic TP BID [facility] Last Admin: 06/19/17 14:53 Dose: 1 applic Diltiazem HCl (Cardizem Cd -) 120 mg PO DAILY [facility] Last Admin: 06/19/17 10:56 Dose: 120 mg Furosemide (Lasix Injection -) 40 mg IVPUSH DAILY [facility] Last Admin: 06/19/17 10:56 Dose: 40 mg Guaifenesin (Robitussin Dm -) 10 ml PO Q4H PRN PRN Reason: COUGH Last Admin: 06/19/17 02:34 Dose: 10 ml Heparin Sodium (Porcine) (Heparin -) 5,000 unit SQ TID [facility] Last Admin: 06/19/17 15:11 Dose: 5,000 unit Meropenem (Merrem (Restricted To Id) -) 500 mg in 10 mls @ 120 mls/hr IVPUSH Q8H-IV [facility] Last Admin: 06/19/17 10:57 Dose: 120 mls/hr Melatonin (Melatonin) 5 mg PO HS PRN PRN Reason: INSOMNIA Last Admin: 06/17/17 21:14 Dose: 5 mg Metoprolol Succinate (Toprol Xl -) 50 mg PO BID [facility] Last Admin: 06/19/17 10:56 Dose: 50 mg Nystatin (Nystop Powder -) 1 applic TP BID [facility] Last Admin: 06/19/17 14:53 Dose: 1 applic Pantoprazole Sodium (Protonix Iv) 40 mg IVPUSH DAILY [facility] Last Admin: 06/19/17 11:01 Dose: 40 mg - Objective Vital Signs: Vital Signs Temperature 98.7 F 06/19/17 14:31 Pulse Rate 112 H 06/19/17 14:31 Respiratory Rate 20 06/19/17 14:31 Blood Pressure 124/68 06/19/17 14:31 O2 Sat by Pulse Oximetry (%) 97 06/19/17 09:00 Constitutional: Yes: No Distress Eyes: Yes: WNL HENT: Yes: WNL Neck: Yes: WNL Cardiovascular: Yes: Pulse Irregular Respiratory: Yes: WNL Gastrointestinal: Yes: Normal Bowel Sounds ...Rectal Exam: Yes: Deferred Genitourinary: Yes: WNL Musculoskeletal: Yes: Muscle Weakness Integumentary: Yes: WNL Neurological: Yes: Alert Labs: CBC, BMP 06/16/17 06:38 06/18/17 06:00 INR, PTT INR 1.58 (0.82-1.09) H 06/19/17 06:00 Assessment/Plan Continue same trt
--- NOTE | 2017-06-19 18:51 | PN ---
Progress Note, Physician History of Present Illness: doing much better no issues patient for cardio version tomorrow - Current Medication List Current Medications: Active Medications Amiodarone HCl (Cordarone -) 200 mg PO DAILY [facility] Last Admin: 06/19/17 10:56 Dose: 200 mg Clotrimazole (Lotrisone Cream (Small Tube)) 1 applic TP BID [facility] Last Admin: 06/19/17 14:53 Dose: 1 applic Diltiazem HCl (Cardizem Cd -) 120 mg PO DAILY [facility] Last Admin: 06/19/17 10:56 Dose: 120 mg Furosemide (Lasix Injection -) 40 mg IVPUSH DAILY [facility] Last Admin: 06/19/17 10:56 Dose: 40 mg Guaifenesin (Robitussin Dm -) 10 ml PO Q4H PRN PRN Reason: COUGH Last Admin: 06/19/17 02:34 Dose: 10 ml Meropenem (Merrem (Restricted To Id) -) 500 mg in 10 mls @ 120 mls/hr IVPUSH Q8H-IV [facility] Last Admin: 06/19/17 18:12 Dose: 120 mls/hr Melatonin (Melatonin) 5 mg PO HS PRN PRN Reason: INSOMNIA Last Admin: 06/17/17 21:14 Dose: 5 mg Metoprolol Succinate (Toprol Xl -) 50 mg PO BID [facility] Last Admin: 06/19/17 10:56 Dose: 50 mg Nystatin (Nystop Powder -) 1 applic TP BID [facility] Last Admin: 06/19/17 14:53 Dose: 1 applic Pantoprazole Sodium (Protonix Iv) 40 mg IVPUSH DAILY [facility] Last Admin: 06/19/17 11:01 Dose: 40 mg - Objective Vital Signs: Vital Signs Temperature 98.7 F 06/19/17 14:31 Pulse Rate 112 H 06/19/17 14:31 Respiratory Rate 20 06/19/17 14:31 Blood Pressure 124/68 06/19/17 14:31 O2 Sat by Pulse Oximetry (%) 97 06/19/17 09:00 Constitutional: Yes: No Distress, Calm Cardiovascular: Yes: Pulse Irregular, S1, S2 Respiratory: Yes: Regular, CTA Bilaterally, On Nasal O2 Gastrointestinal: Yes: Normal Bowel Sounds, Soft Musculoskeletal: Yes: WNL Extremities: Yes: WNL Neurological: Yes: Alert, Oriented Psychiatric: Yes: Alert, Oriented Labs: CBC, BMP 06/16/17 06:38 06/18/17 06:00 INR, PTT INR 1.58 (0.82-1.09) H 06/19/17 06:00 Assessment/Plan 86 year old female with PMH of CHF, COPD, CAD, HTN, HLD, diverticulitis, and recent ICU admission for sepsis 2/2 PNA presenting from NH in acute respiratory distress readmitted to ICU for hypoxic respiratory failure 2/2 recurrent PNA c/ b CHF exacerbation, Plan: hypoxic resp failure pna septic shock lactic acidosis chf acute on chronic renal failure plan continue abx for cardioversion tomorrow physio rest as per primary and cardio
[2017-06-19] MEDS ORDERED: HEPARIN NA (PORCINE) 5,000 UNITS/ML 1ML VIAL IVPUSH PRN (19:13)
[2017-06-19 19:32] LABS: HEMATOCRIT 29.2 % (32.4-45.2); HEMOGLOBIN 9.5 GM/dL (10.7-15.3); MCH 31.4 pg (25.7-33.7); MCHC 32.5 g/dl (32.0-36.0); MEAN CELL VOLUME 96.7 fl (80-96); MEAN PLT VOLUME 9.6 fl (7.5-11.1); PLATELET COUNT 226 K/MM3 (134-434); RBC 3.02 M/mm3 (3.60-5.2); RDW 20.5 % (11.6-15.6); WHITE BLOOD COUNT 8.7 K/mm3 (4.0-10.0)
--- NOTE | 2017-06-19 20:18 | PN ---
Progress Note (short form) - Note Progress Note: 86 year old female with history of hypertension, coronary artery disease, angina pectoris, COPD, hypercholesterolemia, recent acute respiratory failure. Had been in atrial flutter 2:1 AV conduction,rate of 116/ min. and remains unchanged despite multiple anti arrthymics. No SOB, no chest pain or discomfort Active Medications Generic Name Dose Route Start Last Admin Trade Name Freq PRN Reason Stop Dose Admin Amiodarone HCl 200 mg 06/16/17 10:00 06/19/17 10:56 Cordarone - PO 200 mg DAILY [facility] Administration Clotrimazole 1 applic 06/16/17 22:00 06/19/17 14:53 Lotrisone Cream (Small Tube) TP 1 applic BID [facility] Administration Diltiazem HCl 120 mg 06/17/17 12:45 06/19/17 10:56 Cardizem Cd - PO 120 mg DAILY [facility] Administration Furosemide 40 mg 06/16/17 10:00 06/19/17 10:56 Lasix Injection - IVPUSH 40 mg DAILY [facility] Administration Guaifenesin 10 ml 06/18/17 11:27 06/19/17 02:34 Robitussin Dm - PO 10 ml Q4H PRN Administration COUGH Heparin Sodium (Porcine) 5,000 unit 06/19/17 19:13 Heparin - IVPUSH PRN PRN Heparin Sodium (Porcine) 1,000 unit 06/19/17 19:13 Heparin - IVPUSH PRN PRN Meropenem 500 mg in 10 mls @ 120 mls/hr 06/15/17 18:00 06/19/17 18:12 Merrem (Restricted To Id) - IVPUSH 120 mls/hr Q8H-IV [facility] Administration HEPARIN SOD,PORK IN 0.45% NACL 25,000 units in 500 mls @ 20 mls/hr 06/19/17 19 :15 Heparin-1/2ns 25,000 Units/500 IVPB TITR [facility] Protocol 1,000 UNITS/HR Melatonin 5 mg 06/15/17 12:50 06/17/17 21:14 Melatonin PO 5 mg HS PRN Administration INSOMNIA Metoprolol Succinate 50 mg 06/17/17 22:00 06/19/17 10:56 Toprol Xl - PO 50 mg BID [facility] Administration Nystatin 1 applic 06/15/17 22:00 06/19/17 14:53 Nystop Powder - TP 1 applic BID [facility] Administration Pantoprazole Sodium 40 mg 06/16/17 10:00 06/19/17 11:01 Protonix Iv IVPUSH 40 mg DAILY [facility] Administration 86 year old AA female, in no acute distress, pallor+, no clubbing, jaundice or cyanosis. Last Vital Signs Temp Pulse Resp BP Pulse Ox 98.7 F 112 H 20 124/68 97 06/19/17 14:31 06/19/17 14:31 06/19/17 14:31 06/19/17 14:31 06/19/17 09:00 NECK: Supple, no JVD, carotids equal, no bruits or thyromegaly. Heart: Distant heart sounds, no murmur or gallops appreciated. Lungs: Decreased breath sounds at both bases. Abdomen: Obese. No hepatosplenomegaly was appreciated. Extremities: No calf tenderness or dependent edema. CBC, BMP 06/19/17 19:15 06/18/17 06:00 INR, PTT INR 1.58 (0.82-1.09) H 06/19/17 06:00 Impression: 1. Atrial flutter with 2:1 conduction 2. S/p flash pulmonary edema . 3. COPD. 4. Chronic UTI. 5. Bronchial asthma. 6. CKD. 7. History of obstructive sleep apnea. 8. Morbid obesity. Recommendations: 1. Discussed with patient regarding NICOLAS/Cardioversion, indications, alternatives and potential copmpliactions were were dicussed and understood and is agreeable to the pricedure. 2. Full heparinization as INR is subtherapeutic. Prognosis: Guarded
[2017-06-19] MEDS: HEPARIN SOD,PORK IN 0.45% NACL 25,000 UNITS/500 ML INFUS.BAG IVPB SCH (20:44)
[2017-06-19] MEDS ORDERED: HEPARIN NA (PORCINE) 5,000 UNITS/ML 1ML VIAL IVPUSH ONE (20:46)
[2017-06-20] MEDS: MEROPENEM 500 MG PUSH 500 MG/10 ML DISP.SYRIN IVPUSH SCH ×3 (01:39→17:10)
[2017-06-20] MEDS: HEPARIN SOD,PORK IN 0.45% NACL 25,000 UNITS/500 ML INFUS.BAG IVPB SCH ×2 (04:40→12:54)
[2017-06-20 06:51] LABS: INR 1.47 (0.82-1.09); PROTHROMBIN TIME (PATIENT) 16.6 SEC (9.98-11.88)
--- NOTE | 2017-06-20 08:54 | PN ---
Progress Note, Physician Chief Complaint: Feels better History of Present Illness: Scheduled for cardiovertion - Current Medication List Current Medications: Active Medications Amiodarone HCl (Cordarone -) 200 mg PO DAILY [facility] Last Admin: 06/19/17 10:56 Dose: 200 mg Clotrimazole (Lotrisone Cream (Small Tube)) 1 applic TP BID [facility] Last Admin: 06/19/17 21:34 Dose: 1 applic Diltiazem HCl (Cardizem Cd -) 120 mg PO DAILY [facility] Last Admin: 06/19/17 10:56 Dose: 120 mg Furosemide (Lasix Injection -) 40 mg IVPUSH DAILY [facility] Last Admin: 06/19/17 10:56 Dose: 40 mg Guaifenesin (Robitussin Dm -) 10 ml PO Q4H PRN PRN Reason: COUGH Last Admin: 06/19/17 20:44 Dose: 10 ml Heparin Sodium (Porcine) (Heparin -) 5,000 unit IVPUSH PRN PRN Heparin Sodium (Porcine) (Heparin -) 1,000 unit IVPUSH PRN PRN Meropenem (Merrem (Restricted To Id) -) 500 mg in 10 mls @ 120 mls/hr IVPUSH Q8H-IV [facility] Last Admin: 06/20/17 01:39 Dose: 120 mls/hr HEPARIN SOD,PORK IN 0.45% NACL (Heparin-1/2ns 25,000 Units/500) 25,000 units in 500 mls @ 20 mls/hr IVPB TITR [facility]; 1,000 UNITS/HR PRN Reason: Protocol Last Admin: 06/20/17 04:40 Dose: 700 units/hr, 14 mls/hr Melatonin (Melatonin) 5 mg PO HS PRN PRN Reason: INSOMNIA Last Admin: 06/17/17 21:14 Dose: 5 mg Metoprolol Succinate (Toprol Xl -) 50 mg PO BID [facility] Last Admin: 06/19/17 21:52 Dose: 50 mg Nystatin (Nystop Powder -) 1 applic TP BID [facility] Last Admin: 06/19/17 21:34 Dose: 1 applic Pantoprazole Sodium (Protonix Iv) 40 mg IVPUSH DAILY [facility] Last Admin: 06/19/17 11:01 Dose: 40 mg - Objective Vital Signs: Vital Signs Temperature 98.4 F 06/20/17 06:25 Pulse Rate 109 H 06/20/17 06:25 Respiratory Rate 20 06/20/17 06:25 Blood Pressure 113/60 06/20/17 06:25 O2 Sat by Pulse Oximetry (%) 99 06/19/17 21:00 Constitutional: Yes: No Distress Eyes: Yes: WNL HENT: Yes: WNL Neck: Yes: WNL Cardiovascular: Yes: Tachycardia, Pulse Irregular Respiratory: Yes: WNL Gastrointestinal: Yes: WNL ...Rectal Exam: Yes: Deferred Musculoskeletal: Yes: Muscle Weakness Edema: No Integumentary: Yes: WNL Neurological: Yes: Alert Labs: CBC, BMP 06/19/17 19:15 06/18/17 06:00 INR, PTT INR 1.47 (0.82-1.09) H 06/20/17 06:20 Assessment/Plan On IV heparin Start coumadin 3mg daily
[2017-06-20] MEDS ORDERED: PT OWN MED DRAWER 7, Y5N ONE ×3 (09:42→16:35)
[2017-06-20] MEDS: PANTOPRAZOLE SODIUM 40 MG VIAL IVPUSH SCH (09:47)
--- NOTE | 2017-06-20 10:34 | PN ---
Progress Note (short form) - Note Progress Note: 86 year old female with history of hypertension, coronary artery disease, angina pectoris, COPD, hypercholesterolemia, recent acute respiratory failure. Had been in atrial flutter 2:1 AV conduction,rate of 116/ min. and remains unchanged despite multiple antiarrthymics. No SOB, no chest pain or discomfort. Patient is scheduled for NICOLAS/Cardioversion. Patient has been on Heparin as INR was subtherapeutic. Active Medications Generic Name Dose Route Start Last Admin Trade Name Freq PRN Reason Stop Dose Admin Amiodarone HCl 200 mg 06/16/17 10:00 06/19/17 10:56 Cordarone - PO 200 mg DAILY [facility] Administration Clotrimazole 1 applic 06/16/17 22:00 06/19/17 21:34 Lotrisone Cream (Small Tube) TP 1 applic BID [facility] Administration Diltiazem HCl 120 mg 06/17/17 12:45 06/19/17 10:56 Cardizem Cd - PO 120 mg DAILY [facility] Administration Furosemide 40 mg 06/16/17 10:00 06/19/17 10:56 Lasix Injection - IVPUSH 40 mg DAILY [facility] Administration Guaifenesin 10 ml 06/18/17 11:27 06/19/17 20:44 Robitussin Dm - PO 10 ml Q4H PRN Administration COUGH Heparin Sodium (Porcine) 5,000 unit 06/19/17 19:13 Heparin - IVPUSH PRN PRN Heparin Sodium (Porcine) 1,000 unit 06/19/17 19:13 Heparin - IVPUSH PRN PRN Meropenem 500 mg in 10 mls @ 120 mls/hr 06/15/17 18:00 06/20/17 09:46 Merrem (Restricted To Id) - IVPUSH 120 mls/hr Q8H-IV [facility] Administration HEPARIN SOD,PORK IN 0.45% NACL 25,000 units in 500 mls @ 20 mls/hr 06/19/17 19 :15 06/20/17 04:40 Heparin-1/2ns 25,000 Units/500 IVPB 700 units/hr TITR [facility] 14 mls/hr Protocol Administration 1,000 UNITS/HR Melatonin 5 mg 06/15/17 12:50 06/17/17 21:14 Melatonin PO 5 mg HS PRN Administration INSOMNIA Metoprolol Succinate 50 mg 06/17/17 22:00 06/19/17 21:52 Toprol Xl - PO 50 mg BID [facility] Administration Nystatin 1 applic 06/15/17 22:00 06/19/17 21:34 Nystop Powder - TP 1 applic BID [facility] Administration Pantoprazole Sodium 40 mg 06/16/17 10:00 06/20/17 09:47 Protonix Iv IVPUSH 40 mg DAILY [facility] Administration Warfarin Sodium 3 mg 06/20/17 18:00 Coumadin - PO DAILY@1800 [facility] 86 year old AA female, in no acute distress, pallor+, no clubbing, jaundice or cyanosis. Last Vital Signs Temp Pulse Resp BP Pulse Ox 98 F 102 H 20 120/70 99 06/20/17 09:00 06/20/17 09:00 06/20/17 09:00 06/20/17 09:00 06/19/17 21:00 NECK: Supple, no JVD, carotids equal, no bruits or thyromegaly. Heart: Distant heart sounds, no murmur or gallops appreciated. Lungs: Decreased breath sounds at both bases. Abdomen: Obese. No hepatosplenomegaly was appreciated. Extremities: No calf tenderness or dependent edema. CBC, BMP 06/19/17 19:15 06/18/17 06:00 Impression: 1. Atrial flutter with 2:1 conduction 2. S/p flash pulmonary edema . 3. COPD. 4. Chronic UTI. 5. Bronchial asthma. 6. CKD. 7. History of obstructive sleep apnea. 8. Morbid obesity. Recommendations: 1. Awaiting NICOLAS/Cardioversion. 2. Awaiting APTT results. Prognosis: Guarded
[2017-06-20] MEDS ORDERED: PROPOFOL 20 ML ONE ×3 (10:44)
[2017-06-20] MEDS ORDERED: LIDOCAINE VISCOUS 2% ORAL/TOP 100 ML BOTTLE MM ONE (11:00)
--- NOTE | 2017-06-20 11:13 | PN ---
Progress Note, Physician History of Present Illness: improving no complaints plan is for cardio version patient still very sad and scared - Current Medication List Current Medications: Active Medications Amiodarone HCl (Cordarone -) 200 mg PO DAILY [facility] Last Admin: 06/19/17 10:56 Dose: 200 mg Clotrimazole (Lotrisone Cream (Small Tube)) 1 applic TP BID [facility] Last Admin: 06/19/17 21:34 Dose: 1 applic Diltiazem HCl (Cardizem Cd -) 120 mg PO DAILY [facility] Last Admin: 06/19/17 10:56 Dose: 120 mg Furosemide (Lasix Injection -) 40 mg IVPUSH DAILY [facility] Last Admin: 06/19/17 10:56 Dose: 40 mg Guaifenesin (Robitussin Dm -) 10 ml PO Q4H PRN PRN Reason: COUGH Last Admin: 06/19/17 20:44 Dose: 10 ml Heparin Sodium (Porcine) (Heparin -) 5,000 unit IVPUSH PRN PRN Heparin Sodium (Porcine) (Heparin -) 1,000 unit IVPUSH PRN PRN Meropenem (Merrem (Restricted To Id) -) 500 mg in 10 mls @ 120 mls/hr IVPUSH Q8H-IV [facility] Last Admin: 06/20/17 09:46 Dose: 120 mls/hr HEPARIN SOD,PORK IN 0.45% NACL (Heparin-1/2ns 25,000 Units/500) 25,000 units in 500 mls @ 20 mls/hr IVPB TITR [facility]; 1,000 UNITS/HR PRN Reason: Protocol Last Admin: 06/20/17 04:40 Dose: 700 units/hr, 14 mls/hr Melatonin (Melatonin) 5 mg PO HS PRN PRN Reason: INSOMNIA Last Admin: 06/17/17 21:14 Dose: 5 mg Metoprolol Succinate (Toprol Xl -) 50 mg PO BID [facility] Last Admin: 06/19/17 21:52 Dose: 50 mg Nystatin (Nystop Powder -) 1 applic TP BID [facility] Last Admin: 06/19/17 21:34 Dose: 1 applic Pantoprazole Sodium (Protonix Iv) 40 mg IVPUSH DAILY [facility] Last Admin: 06/20/17 09:47 Dose: 40 mg Warfarin Sodium (Coumadin -) 3 mg PO DAILY@1800 [facility] - Objective Vital Signs: Vital Signs Temperature 98 F 06/20/17 09:00 Pulse Rate 102 H 06/20/17 09:00 Respiratory Rate 20 06/20/17 09:00 Blood Pressure 120/70 06/20/17 09:00 O2 Sat by Pulse Oximetry (%) 99 06/19/17 21:00 Constitutional: Yes: No Distress, Calm, Obese Cardiovascular: Yes: Tachycardia, Pulse Irregular Respiratory: Yes: Poor Air Entry, Other Gastrointestinal: Yes: Normal Bowel Sounds, Soft Musculoskeletal: Yes: WNL Extremities: Yes: WNL Neurological: Yes: Alert, Oriented Psychiatric: Yes: Alert, Oriented Labs: CBC, BMP 06/19/17 19:15 06/18/17 06:00 INR, PTT INR 1.47 (0.82-1.09) H 06/20/17 06:20 Assessment/Plan 86 year old female with PMH of CHF, COPD, CAD, HTN, HLD, diverticulitis, and recent ICU admission for sepsis 2/2 PNA presenting from NH in acute respiratory distress readmitted to ICU for hypoxic respiratory failure 2/2 recurrent PNA c/ b CHF exacerbation, Plan: hypoxic resp failure pna septic shock lactic acidosis chf acute on chronic renal failure plan continue abx close watch physio rest as per primary and cardio
--- NOTE | 2017-06-20 13:11 | PROC ---
Transesophageal Echocardiogram - Pre-Procedure Risks and Benefits Explained: Yes Consent on Chart: Yes - Procedure Procedure Done: in Endoscopy Suite Medication given: propofol Findings: NANCI/DCCV not done Remarks: Patient continuosly desatted after getting anesthesia and required frequent bagging. Once bag removed she quickly desatted to 70s so was not able to have nanci probe placed and thus procedure was aborted.
--- NOTE | 2017-06-20 13:46 | PN ---
Progress Note, Physician History of Present Illness: PULMONARY DROWSY,S/P ATTEMPTED NICOLAS/CARDIOVERSION PROCEDURE ABORTED SECONDARY TO O2 DESATURATION - Current Medication List Current Medications: Active Medications Amiodarone HCl (Cordarone -) 200 mg PO DAILY [facility] Last Admin: 06/19/17 10:56 Dose: 200 mg Clotrimazole (Lotrisone Cream (Small Tube)) 1 applic TP BID [facility] Last Admin: 06/19/17 21:34 Dose: 1 applic Diltiazem HCl (Cardizem Cd -) 120 mg PO DAILY [facility] Last Admin: 06/19/17 10:56 Dose: 120 mg Furosemide (Lasix Injection -) 40 mg IVPUSH DAILY [facility] Last Admin: 06/19/17 10:56 Dose: 40 mg Guaifenesin (Robitussin Dm -) 10 ml PO Q4H PRN PRN Reason: COUGH Last Admin: 06/19/17 20:44 Dose: 10 ml Heparin Sodium (Porcine) (Heparin -) 5,000 unit IVPUSH PRN PRN Heparin Sodium (Porcine) (Heparin -) 1,000 unit IVPUSH PRN PRN Meropenem (Merrem (Restricted To Id) -) 500 mg in 10 mls @ 120 mls/hr IVPUSH Q8H-IV [facility] Last Admin: 06/20/17 09:46 Dose: 120 mls/hr HEPARIN SOD,PORK IN 0.45% NACL (Heparin-1/2ns 25,000 Units/500) 25,000 units in 500 mls @ 20 mls/hr IVPB TITR [facility]; 1,000 UNITS/HR PRN Reason: Protocol Last Admin: 06/20/17 12:54 Dose: 600 units/hr, 12 mls/hr Melatonin (Melatonin) 5 mg PO HS PRN PRN Reason: INSOMNIA Last Admin: 06/17/17 21:14 Dose: 5 mg Metoprolol Succinate (Toprol Xl -) 50 mg PO BID [facility] Last Admin: 06/19/17 21:52 Dose: 50 mg Nystatin (Nystop Powder -) 1 applic TP BID [facility] Last Admin: 06/19/17 21:34 Dose: 1 applic Pantoprazole Sodium (Protonix Iv) 40 mg IVPUSH DAILY [facility] Last Admin: 06/20/17 09:47 Dose: 40 mg Warfarin Sodium (Coumadin -) 3 mg PO DAILY@1800 [facility] - Objective Vital Signs: Vital Signs Temperature 97.8 F 06/20/17 11:53 Pulse Rate 108 H 06/20/17 12:23 Respiratory Rate 20 06/20/17 12:23 Blood Pressure 144/86 06/20/17 12:23 O2 Sat by Pulse Oximetry (%) 100 06/20/17 12:23 Constitutional: Yes: Obese, Other (DROWSY) Eyes: Yes: WNL HENT: Yes: WNL Neck: Yes: WNL Cardiovascular: Yes: Pulse Irregular, S1, S2 Respiratory: Yes: Diminished Gastrointestinal: Yes: Normal Bowel Sounds, Soft Extremities: Yes: WNL Edema: No Labs: CBC, BMP Problem List - Problems (1) CHF (NYHA class II, ACC/AHA stage C) Code(s): I50.9 - HEART FAILURE, UNSPECIFIED (2) Respiratory distress, acute Code(s): R06.03 - ACUTE RESPIRATORY DISTRESS (3) Sepsis Code(s): A41.9 - SEPSIS, UNSPECIFIED ORGANISM Qualifiers: Sepsis type: sepsis due to unspecified organism Qualified Code(s): A41.9 - Sepsis, unspecified organism (4) Atrial fibrillation with RVR Code(s): I48.91 - UNSPECIFIED ATRIAL FIBRILLATION (5) COPD mixed type Code(s): J44.9 - CHRONIC OBSTRUCTIVE PULMONARY DISEASE, UNSPECIFIED (6) Healthcare-associated pneumonia Code(s): J18.9 - PNEUMONIA, UNSPECIFIED ORGANISM (7) Persistent atrial fibrillation Code(s): I48.1 - PERSISTENT ATRIAL FIBRILLATION (8) Renal function impairment Code(s): N28.9 - DISORDER OF KIDNEY AND URETER, UNSPECIFIED (9) Wheezing Code(s): R06.2 - WHEEZING (10) CKD stage G3b/A3, GFR 30-44 and albumin creatinine ratio >300 mg/g Code(s): N18.3 - CHRONIC KIDNEY DISEASE, STAGE 3 (MODERATE) (11) Acute on chronic renal failure Code(s): N17.9 - ACUTE KIDNEY FAILURE, UNSPECIFIED; N18.9 - CHRONIC KIDNEY DISEASE, UNSPECIFIED Assessment/Plan A/P Acute Hypoxic Respiratory Failure improved Pneumonia S/P Septic Shock Atrial Flutter with RVR Acute on Chronic Systolic Heart Failure Acute on Chronic Renal Failure Lactic Acidosis COPD CAD HTN Hyperlipidemia - antibiotics as per ID - taper FiO2 to keep Spo2 >90% - lasix - PO as tolerated - DVT/GI prophylaxis - anti-tussives - daily wts - monitor lytes,renal function DR GOMEZ
[2017-06-20] MEDS: NYSTATIN POWDER 100,000 UNITS/GM - 15 GM TOPICAL POWDER TP SCH ×2 (13:48→21:42)
[2017-06-20] MEDS: CLOTRIMAZOLE/BETAMET DIPROP 15 GM TUBE TP SCH ×2 (13:49→21:42)
[2017-06-20] MEDS: AMIODARONE HCL 200 MG TABLET (FP) PO SCH (13:49)
[2017-06-20] MEDS: METOPROLOL SUCCINATE 50 MG TAB.SR.24H (FP) PO SCH ×2 (13:49→21:43)
[2017-06-20] MEDS: FUROSEMIDE 40 MG/4 ML INJECTABLE VIAL IVPUSH SCH (13:49)
[2017-06-20] MEDS: WARFARIN NA 3 MG TABLET PO SCH (17:10)
[2017-06-20] MEDS: guaiFENesin/D-METHORPHAN HB 10 ML UNIT-DOSE CUPS PO PRN (20:57)
[2017-06-21] MEDS: MEROPENEM 500 MG PUSH 500 MG/10 ML DISP.SYRIN IVPUSH SCH ×3 (01:27→17:32)
[2017-06-21 07:53] LABS: INR 1.49 (0.82-1.09); PROTHROMBIN TIME (PATIENT) 16.8 SEC (9.98-11.88)
--- NOTE | 2017-06-21 11:18 | EKG ---
Test Reason : Blood Pressure : / mmHG Vent. Rate : 111 BPM Atrial Rate : 108 BPM P-R Int : 000 ms QRS Dur : 112 ms QT Int : 422 ms P-R-T Axes : 000 -33 048 degrees QTc Int : 573 ms NORMAL SINUS RHYTHM WITH 1ST DEGREE A-V BLOCK LEFT AXIS DEVIATION POOR R WAVE PROGRESSION PROLONGED QT ABNORMAL ECG WHEN COMPARED WITH ECG OF 11-JUN-2017 21:26, RHYTHM CHANGE ABOVE VENT. RATE HAS INCREASED BY 43 BPM NONSPECIFIC T WAVE ABNORMALITY, IMPROVED IN ANTEROLATERAL LEADS CLINICAL CORRELATION IS RECOMMENDED Confirmed by SHELBY KRAFT, MARITZA ([id number]) on 06/21/2017 11:17:50 AM Referred By: Confirmed By:MARITZA RYAN MD
[2017-06-21] MEDS ORDERED: PT OWN MED DRAWER 7, Y5N ONE ×2 (11:38→17:22)
[2017-06-21] MEDS: HEPARIN NA (PORCINE) 5,000 UNITS/ML 1ML VIAL IVPUSH PRN (11:47)
[2017-06-21] MEDS: HEPARIN SOD,PORK IN 0.45% NACL 25,000 UNITS/500 ML INFUS.BAG IVPB SCH (11:47)
[2017-06-21] MEDS: CLOTRIMAZOLE/BETAMET DIPROP 15 GM TUBE TP SCH ×2 (11:49→22:00)
[2017-06-21] MEDS: NYSTATIN POWDER 100,000 UNITS/GM - 15 GM TOPICAL POWDER TP SCH ×2 (11:49→22:00)
[2017-06-21] MEDS: METOPROLOL SUCCINATE 50 MG TAB.SR.24H (FP) PO SCH ×2 (11:49→21:55)
[2017-06-21] MEDS: AMIODARONE HCL 200 MG TABLET (FP) PO SCH (11:50)
[2017-06-21] MEDS: FUROSEMIDE 40 MG/4 ML INJECTABLE VIAL IVPUSH SCH (11:50)
[2017-06-21] MEDS: PANTOPRAZOLE SODIUM 40 MG VIAL IVPUSH SCH (11:52)
--- NOTE | 2017-06-21 12:59 | PN ---
Progress Note (short form) - Note Progress Note: PULMONARY APPEARS STABLE HAS DISCOMFORT AT RIGHT IJ SITE VSS/99 TMAX ANICTERIC DIMINISHED B/L BREATH SOUNDS S1S2 OBESE LESS EDEMA LOWER EXT LABS/MEDS/NOTES/IMAGES REVIEWED UNABLE TO TOLERATE SEDATION FOR CARDIOVERSION Acute Hypoxic Respiratory Failure improved Pneumonia S/P Septic Shock Atrial Flutter with RVR Acute on Chronic Systolic Heart Failure Acute on Chronic Renal Failure Lactic Acidosis COPD CAD HTN Hyperlipidemia - antibiotics as per ID - taper FiO2 to keep Spo2 >90% - lasix/AC - PO as tolerated - DVT/GI prophylaxis - anti-tussives - daily wts - monitor lytes,renal function Leno PINEDA MD
[2017-06-21] MEDS ORDERED: ACETAMINOPHEN 325 MG TABLET (FP) ONE (13:57)
[2017-06-21] MEDS: ACETAMINOPHEN 325 MG TABLET (FP) PO PRN ×2 (14:00→21:55)
--- NOTE | 2017-06-21 14:38 | PN ---
Progress Note, Physician Chief Complaint: Feels the same History of Present Illness: Attempted cardiovertion Case discussed with Dr Melendrez, may start on sotolol - Current Medication List Current Medications: Active Medications Amiodarone HCl (Cordarone -) 200 mg PO DAILY [facility] Last Admin: 06/21/17 11:50 Dose: 200 mg Clotrimazole (Lotrisone Cream (Small Tube)) 1 applic TP BID [facility] Last Admin: 06/21/17 11:49 Dose: 1 applic Diltiazem HCl (Cardizem Cd -) 120 mg PO DAILY [facility] Last Admin: 06/21/17 11:49 Dose: 120 mg Furosemide (Lasix Injection -) 40 mg IVPUSH DAILY [facility] Last Admin: 06/21/17 11:50 Dose: 40 mg Guaifenesin (Robitussin Dm -) 10 ml PO Q4H PRN PRN Reason: COUGH Last Admin: 06/20/17 20:57 Dose: 10 ml Heparin Sodium (Porcine) (Heparin -) 5,000 unit IVPUSH PRN PRN Heparin Sodium (Porcine) (Heparin -) 1,000 unit IVPUSH PRN PRN Last Admin: 06/21/17 11:47 Dose: 1,000 unit Meropenem (Merrem (Restricted To Id) -) 500 mg in 10 mls @ 120 mls/hr IVPUSH Q8H-IV [facility] Last Admin: 06/21/17 11:50 Dose: 120 mls/hr HEPARIN SOD,PORK IN 0.45% NACL (Heparin-1/2ns 25,000 Units/500) 25,000 units in 500 mls @ 20 mls/hr IVPB TITR [facility]; 1,000 UNITS/HR PRN Reason: Protocol Last Admin: 06/21/17 11:47 Dose: 700 units/hr, 14 mls/hr Melatonin (Melatonin) 5 mg PO HS PRN PRN Reason: INSOMNIA Last Admin: 06/17/17 21:14 Dose: 5 mg Metoprolol Succinate (Toprol Xl -) 50 mg PO BID [facility] Last Admin: 06/21/17 11:49 Dose: 50 mg Nystatin (Nystop Powder -) 1 applic TP BID [facility] Last Admin: 06/21/17 11:49 Dose: 1 applic Pantoprazole Sodium (Protonix Iv) 40 mg IVPUSH DAILY [facility] Last Admin: 06/21/17 11:52 Dose: 40 mg Warfarin Sodium (Coumadin -) 3 mg PO DAILY@1800 [facility] Last Admin: 06/20/17 17:10 Dose: 3 mg - Objective Vital Signs: Vital Signs Temperature 99.0 F 06/21/17 06:00 Pulse Rate 102 H 06/21/17 06:00 Respiratory Rate 18 06/21/17 06:00 Blood Pressure 110/58 06/21/17 06:00 O2 Sat by Pulse Oximetry (%) 100 06/20/17 21:00 Constitutional: Yes: Calm Eyes: Yes: WNL HENT: Yes: WNL Neck: Yes: WNL Cardiovascular: Yes: Tachycardia Respiratory: Yes: WNL Gastrointestinal: Yes: WNL ...Rectal Exam: Yes: Deferred Genitourinary: Yes: WNL Musculoskeletal: Yes: Muscle Weakness Neurological: Yes: Alert Labs: CBC, BMP 06/19/17 19:15 06/18/17 06:00 INR, PTT INR 1.49 (0.82-1.09) H 06/21/17 05:50 Assessment/Plan On IV heparin Start coumadin 3mg daily
--- NOTE | 2017-06-21 15:31 | PN ---
Progress Note, Physician History of Present Illness: stable could not undergo cardiversion because she desaturated - Current Medication List Current Medications: Active Medications Amiodarone HCl (Cordarone -) 200 mg PO DAILY [facility] Last Admin: 06/21/17 11:50 Dose: 200 mg Clotrimazole (Lotrisone Cream (Small Tube)) 1 applic TP BID [facility] Last Admin: 06/21/17 11:49 Dose: 1 applic Diltiazem HCl (Cardizem Cd -) 120 mg PO DAILY [facility] Last Admin: 06/21/17 11:49 Dose: 120 mg Furosemide (Lasix Injection -) 40 mg IVPUSH DAILY [facility] Last Admin: 06/21/17 11:50 Dose: 40 mg Guaifenesin (Robitussin Dm -) 10 ml PO Q4H PRN PRN Reason: COUGH Last Admin: 06/20/17 20:57 Dose: 10 ml Heparin Sodium (Porcine) (Heparin -) 5,000 unit IVPUSH PRN PRN Heparin Sodium (Porcine) (Heparin -) 1,000 unit IVPUSH PRN PRN Last Admin: 06/21/17 11:47 Dose: 1,000 unit Meropenem (Merrem (Restricted To Id) -) 500 mg in 10 mls @ 120 mls/hr IVPUSH Q8H-IV [facility] Last Admin: 06/21/17 11:50 Dose: 120 mls/hr HEPARIN SOD,PORK IN 0.45% NACL (Heparin-1/2ns 25,000 Units/500) 25,000 units in 500 mls @ 20 mls/hr IVPB TITR [facility]; 1,000 UNITS/HR PRN Reason: Protocol Last Admin: 06/21/17 11:47 Dose: 700 units/hr, 14 mls/hr Melatonin (Melatonin) 5 mg PO HS PRN PRN Reason: INSOMNIA Last Admin: 06/17/17 21:14 Dose: 5 mg Metoprolol Succinate (Toprol Xl -) 50 mg PO BID [facility] Last Admin: 06/21/17 11:49 Dose: 50 mg Nystatin (Nystop Powder -) 1 applic TP BID [facility] Last Admin: 06/21/17 11:49 Dose: 1 applic Pantoprazole Sodium (Protonix Iv) 40 mg IVPUSH DAILY [facility] Last Admin: 06/21/17 11:52 Dose: 40 mg Warfarin Sodium (Coumadin -) 3 mg PO DAILY@1800 [facility] Last Admin: 06/20/17 17:10 Dose: 3 mg - Objective Vital Signs: Vital Signs Temperature 98.1 F 06/21/17 14:00 Pulse Rate 110 H 06/21/17 14:00 Respiratory Rate 18 06/21/17 14:00 Blood Pressure 93/59 06/21/17 14:00 O2 Sat by Pulse Oximetry (%) 100 06/20/17 21:00 Constitutional: Yes: No Distress, Calm Cardiovascular: Yes: Tachycardia, Pulse Irregular Respiratory: Yes: Regular, CTA Bilaterally Gastrointestinal: Yes: Normal Bowel Sounds, Soft Musculoskeletal: Yes: WNL Extremities: Yes: WNL Neurological: Yes: Alert, Oriented Psychiatric: Yes: Alert, Oriented Labs: CBC, BMP 06/19/17 19:15 06/18/17 06:00 INR, PTT INR 1.49 (0.82-1.09) H 06/21/17 05:50 Assessment/Plan 86 year old female with PMH of CHF, COPD, CAD, HTN, HLD, diverticulitis, and recent ICU admission for sepsis 2/2 PNA presenting from [facility] in acute respiratory distress readmitted to ICU for hypoxic respiratory failure 2/2 recurrent PNA c/ b CHF exacerbation, Plan: hypoxic resp failure pna septic shock lactic acidosis chf acute on chronic renal failure plan continue abx close watch physio desaturated during cardioversion
--- NOTE | 2017-06-21 15:32 | PN ---
Progress Note (short form) - Note Progress Note: 86 year old female with history of hypertension, coronary artery disease, angina pectoris, COPD, hypercholesterolemia, recent acute respiratory failure. Had been in atrial flutter 2:1. Patient could not undergo NICOLAS/cardioversion because she started to desaturate and procedure had to be aborted. Remains in atrial flutter with 2:1 AV conduction. No symtoms reported. No response with amiodarone. Active Medications Amiodarone HCl (Cordarone -) 200 mg PO DAILY [facility] Last Admin: 06/21/17 11:50 Dose: 200 mg Clotrimazole (Lotrisone Cream (Small Tube)) 1 applic TP BID [facility] Last Admin: 06/21/17 11:49 Dose: 1 applic Diltiazem HCl (Cardizem Cd -) 120 mg PO DAILY [facility] Last Admin: 06/21/17 11:49 Dose: 120 mg Furosemide (Lasix Injection -) 40 mg IVPUSH DAILY [facility] Last Admin: 06/21/17 11:50 Dose: 40 mg Guaifenesin (Robitussin Dm -) 10 ml PO Q4H PRN PRN Reason: COUGH Last Admin: 06/20/17 20:57 Dose: 10 ml Heparin Sodium (Porcine) (Heparin -) 5,000 unit IVPUSH PRN PRN Heparin Sodium (Porcine) (Heparin -) 1,000 unit IVPUSH PRN PRN Last Admin: 06/21/17 11:47 Dose: 1,000 unit Meropenem (Merrem (Restricted To Id) -) 500 mg in 10 mls @ 120 mls/hr IVPUSH Q8H-IV [facility] Last Admin: 06/21/17 11:50 Dose: 120 mls/hr HEPARIN SOD,PORK IN 0.45% NACL (Heparin-1/2ns 25,000 Units/500) 25,000 units in 500 mls @ 20 mls/hr IVPB TITR [facility]; 1,000 UNITS/HR PRN Reason: Protocol Last Admin: 06/21/17 11:47 Dose: 700 units/hr, 14 mls/hr Melatonin (Melatonin) 5 mg PO HS PRN PRN Reason: INSOMNIA Last Admin: 06/17/17 21:14 Dose: 5 mg Metoprolol Succinate (Toprol Xl -) 50 mg PO BID [facility] Last Admin: 06/21/17 11:49 Dose: 50 mg Nystatin (Nystop Powder -) 1 applic TP BID [facility] Last Admin: 06/21/17 11:49 Dose: 1 applic Pantoprazole Sodium (Protonix Iv) 40 mg IVPUSH DAILY [facility] Last Admin: 06/21/17 11:52 Dose: 40 mg Warfarin Sodium (Coumadin -) 3 mg PO DAILY@1800 [facility] Last Admin: 06/20/17 17:10 Dose: 3 mg 86 year old AA female, in no acute distress, pallor+, no clubbing, jaundice or cyanosis. Last Vital Signs Temp Pulse Resp BP Pulse Ox 98 F 102 H 20 120/70 99 06/20/17 09:00 06/20/17 09:00 06/20/17 09:00 06/20/17 09:00 06/19/17 21:00 NECK: Supple, no JVD, carotids equal, no bruits or thyromegaly. Heart: Distant heart sounds, no murmur or gallops appreciated. Lungs: Decreased breath sounds at both bases. Abdomen: Obese. No hepatosplenomegaly was appreciated. Extremities: No calf tenderness or dependent edema. CBC, BMP 06/19/17 19:15 06/18/17 06:00 Impression: 1. Atrial flutter with 2:1 conduction 2. S/p flash pulmonary edema . 3. COPD. 4. Chronic UTI. 5. Bronchial asthma. 6. CKD. 7. History of obstructive sleep apnea. 8. Morbid obesity. Recommendations: 1. D/c amiodarone. 2. Increase dose of cardizem to 120mg. BID for rate control. 3. Patient should be o warfarin for 4-6 weeks and INR should be in the therapeutic range for the same duration. Prognosis: Guarded
[2017-06-21] MEDS: WARFARIN NA 3 MG TABLET PO SCH (17:32)
[2017-06-21] MEDS: MELATONIN 5 MG TABLETS PO PRN (21:55)
[2017-06-22] MEDS ORDERED: PT OWN MED DRAWER 7, Y5N ONE ×4 (02:21→21:22)
[2017-06-22] MEDS: MEROPENEM 500 MG PUSH 500 MG/10 ML DISP.SYRIN IVPUSH SCH ×2 (02:38→09:32)
[2017-06-22] MEDS: FUROSEMIDE 40 MG/4 ML INJECTABLE VIAL IVPUSH SCH (09:31)
[2017-06-22] MEDS: METOPROLOL SUCCINATE 50 MG TAB.SR.24H (FP) PO SCH ×2 (09:31→22:07)
[2017-06-22] MEDS: PANTOPRAZOLE SODIUM 40 MG VIAL IVPUSH SCH (09:32)
[2017-06-22] MEDS: NYSTATIN POWDER 100,000 UNITS/GM - 15 GM TOPICAL POWDER TP SCH ×2 (09:34→22:08)
[2017-06-22] MEDS: CLOTRIMAZOLE/BETAMET DIPROP 15 GM TUBE TP SCH ×2 (09:34→22:08)
--- NOTE | 2017-06-22 12:28 | PN ---
Progress Note (short form) - Note Progress Note: PULMONARY APPEARS STABLE/DAY 8 ANTIBIOTICS COMPLAINING OF DIARRHEA VSS/98.2 TMAX ANICTERIC DIMINISHED B/L BREATH SOUNDS S1S2 OBESE LESS EDEMA LOWER EXT LABS/MEDS/NOTES/IMAGES REVIEWED UNABLE TO TOLERATE SEDATION FOR CARDIOVERSION Acute Hypoxic Respiratory Failure improved Pneumonia S/P Septic Shock Atrial Flutter with RVR Acute on Chronic Systolic Heart Failure Acute on Chronic Renal Failure Lactic Acidosis COPD CAD HTN Hyperlipidemia - consider stopping antibiotics - taper FiO2 to keep Spo2 >90% - lasix/AC - PO as tolerated - DVT/GI prophylaxis - anti-tussives - daily wts - monitor diarrhea Leno PINEDA MD
--- NOTE | 2017-06-22 12:52 | PN ---
Progress Note, Physician Chief Complaint: Feels better - Current Medication List Current Medications: Active Medications Acetaminophen (Tylenol -) 650 mg PO Q6H PRN PRN Reason: FEVER OR PAIN Last Admin: 06/21/17 21:55 Dose: 650 mg Clotrimazole (Lotrisone Cream (Small Tube)) 1 applic TP BID [facility] Last Admin: 06/22/17 09:34 Dose: 1 applic Diltiazem HCl (Cardizem Cd -) 120 mg PO BID [facility] Last Admin: 06/22/17 09:31 Dose: 120 mg Furosemide (Lasix Injection -) 40 mg IVPUSH DAILY [facility] Last Admin: 06/22/17 09:31 Dose: 40 mg Guaifenesin (Robitussin Dm -) 10 ml PO Q4H PRN PRN Reason: COUGH Last Admin: 06/20/17 20:57 Dose: 10 ml Heparin Sodium (Porcine) (Heparin -) 5,000 unit IVPUSH PRN PRN Last Admin: 06/22/17 06:22 Dose: 5,000 unit Heparin Sodium (Porcine) (Heparin -) 1,000 unit IVPUSH PRN PRN Last Admin: 06/21/17 11:47 Dose: 1,000 unit Meropenem (Merrem (Restricted To Id) -) 500 mg in 10 mls @ 120 mls/hr IVPUSH Q8H-IV [facility] Last Admin: 06/22/17 09:32 Dose: 120 mls/hr HEPARIN SOD,PORK IN 0.45% NACL (Heparin-1/2ns 25,000 Units/500) 25,000 units in 500 mls @ 20 mls/hr IVPB TITR [facility]; 1,000 UNITS/HR PRN Reason: Protocol Last Titration: 06/22/17 06:22 Dose: 750 units/hr, 15 mls/hr Melatonin (Melatonin) 5 mg PO HS PRN PRN Reason: INSOMNIA Last Admin: 06/21/17 21:55 Dose: 5 mg Metoprolol Succinate (Toprol Xl -) 50 mg PO BID [facility] Last Admin: 06/22/17 09:31 Dose: 50 mg Nystatin (Nystop Powder -) 1 applic TP BID [facility] Last Admin: 06/22/17 09:34 Dose: 1 applic Pantoprazole Sodium (Protonix Iv) 40 mg IVPUSH DAILY [facility] Last Admin: 06/22/17 09:32 Dose: 40 mg Warfarin Sodium (Coumadin -) 3 mg PO DAILY@1800 [facility] Last Admin: 06/21/17 17:32 Dose: 3 mg - Objective Vital Signs: Vital Signs Temperature 98.2 F 06/22/17 08:00 Pulse Rate 110 H 06/22/17 08:00 Respiratory Rate 18 06/22/17 09:00 Blood Pressure 130/74 06/22/17 08:00 O2 Sat by Pulse Oximetry (%) 98 06/22/17 09:00 Constitutional: Yes: No Distress Eyes: Yes: WNL HENT: Yes: WNL Neck: Yes: WNL Cardiovascular: Yes: Pulse Irregular Respiratory: Yes: Regular Gastrointestinal: Yes: Normal Bowel Sounds ...Rectal Exam: Yes: WNL, Deferred Genitourinary: Yes: WNL Edema: No Labs: CBC, BMP 06/19/17 19:15 06/18/17 06:00 INR, PTT INR 1.49 (0.82-1.09) H 06/21/17 05:50 Assessment/Plan Stii heart rate high
[2017-06-22 13:00] LABS: INR 1.73 (0.82-1.09); PROTHROMBIN TIME (PATIENT) 19.5 SEC (9.98-11.88)
--- NOTE | 2017-06-22 14:43 | PN ---
Progress Note (short form) - Note Progress Note: 86 year old female with history of hypertension, coronary artery disease, angina pectoris, COPD, hypercholesterolemia, recent acute respiratory failure. Had been in slow atrial flutter/?atrial tachycardia 2:1 conduction No change in rhythm or rate with increase dose of cardizem. Hemodynamics are stable' Active Medications Amiodarone HCl (Cordarone -) 200 mg PO DAILY [facility] Last Admin: 06/21/17 11:50 Dose: 200 mg Clotrimazole (Lotrisone Cream (Small Tube)) 1 applic TP BID [facility] Last Admin: 06/21/17 11:49 Dose: 1 applic Diltiazem HCl (Cardizem Cd -) 120 mg PO DAILY [facility] Last Admin: 06/21/17 11:49 Dose: 120 mg Furosemide (Lasix Injection -) 40 mg IVPUSH DAILY [facility] Last Admin: 06/21/17 11:50 Dose: 40 mg Guaifenesin (Robitussin Dm -) 10 ml PO Q4H PRN PRN Reason: COUGH Last Admin: 06/20/17 20:57 Dose: 10 ml Heparin Sodium (Porcine) (Heparin -) 5,000 unit IVPUSH PRN PRN Heparin Sodium (Porcine) (Heparin -) 1,000 unit IVPUSH PRN PRN Last Admin: 06/21/17 11:47 Dose: 1,000 unit Meropenem (Merrem (Restricted To Id) -) 500 mg in 10 mls @ 120 mls/hr IVPUSH Q8H-IV [facility] Last Admin: 06/21/17 11:50 Dose: 120 mls/hr HEPARIN SOD,PORK IN 0.45% NACL (Heparin-1/2ns 25,000 Units/500) 25,000 units in 500 mls @ 20 mls/hr IVPB TITR [facility]; 1,000 UNITS/HR PRN Reason: Protocol Last Admin: 06/21/17 11:47 Dose: 700 units/hr, 14 mls/hr Melatonin (Melatonin) 5 mg PO HS PRN PRN Reason: INSOMNIA Last Admin: 06/17/17 21:14 Dose: 5 mg Metoprolol Succinate (Toprol Xl -) 50 mg PO BID [facility] Last Admin: 06/21/17 11:49 Dose: 50 mg Nystatin (Nystop Powder -) 1 applic TP BID [facility] Last Admin: 06/21/17 11:49 Dose: 1 applic Pantoprazole Sodium (Protonix Iv) 40 mg IVPUSH DAILY [facility] Last Admin: 06/21/17 11:52 Dose: 40 mg Warfarin Sodium (Coumadin -) 3 mg PO DAILY@1800 [facility] Last Admin: 06/20/17 17:10 Dose: 3 mg 86 year old AA female, in no acute distress, pallor+, no clubbing, jaundice or cyanosis. Last Vital Signs Temp Pulse Resp BP Pulse Ox 98.2 F 110 H 18 130/74 98 06/22/17 08:00 06/22/17 08:00 06/22/17 09:00 06/22/17 08:00 06/22/17 09:00 NECK: Supple, no JVD, carotids equal, no bruits or thyromegaly. Heart: Distant heart sounds, no murmur or gallops appreciated. Lungs: Decreased breath sounds at both bases. Abdomen: Obese. No hepatosplenomegaly was appreciated. Extremities: No calf tenderness or dependent edema. CBC, BMP 06/19/17 19:15 06/18/17 06:00 Impression: 1. Atrial flutter/ ?atrial tachycardia with 2:1 conduction. 2. S/p flash pulmonary edema . 3. COPD. 4. Chronic UTI. 5. Bronchial asthma. 6. CKD. 7. History of obstructive sleep apnea. 8. Morbid obesity. 9. CAD, angina pectoris. 10. H/o OSAS. Recommendations: 1. Cautious use of Digoxin, if no decrease in heart rate. 2. Patient should be on warfarin for 4-6 weeks and INR should be in the therapeutic range for the same duration. Prognosis: Guarded
[2017-06-22] MEDS: HEPARIN SOD,PORK IN 0.45% NACL 25,000 UNITS/500 ML INFUS.BAG IVPB SCH (15:15)
--- NOTE | 2017-06-22 15:41 | PN ---
Progress Note, Physician History of Present Illness: stable little sad no complaints - Current Medication List Current Medications: Active Medications Acetaminophen (Tylenol -) 650 mg PO Q6H PRN PRN Reason: FEVER OR PAIN Last Admin: 06/21/17 21:55 Dose: 650 mg Clotrimazole (Lotrisone Cream (Small Tube)) 1 applic TP BID [facility] Last Admin: 06/22/17 09:34 Dose: 1 applic Diltiazem HCl (Cardizem Cd -) 120 mg PO BID [facility] Last Admin: 06/22/17 09:31 Dose: 120 mg Furosemide (Lasix Injection -) 40 mg IVPUSH DAILY [facility] Last Admin: 06/22/17 09:31 Dose: 40 mg Guaifenesin (Robitussin Dm -) 10 ml PO Q4H PRN PRN Reason: COUGH Last Admin: 06/20/17 20:57 Dose: 10 ml Heparin Sodium (Porcine) (Heparin -) 5,000 unit IVPUSH PRN PRN Last Admin: 06/22/17 06:22 Dose: 5,000 unit Heparin Sodium (Porcine) (Heparin -) 1,000 unit IVPUSH PRN PRN Last Admin: 06/21/17 11:47 Dose: 1,000 unit HEPARIN SOD,PORK IN 0.45% NACL (Heparin-1/2ns 25,000 Units/500) 25,000 units in 500 mls @ 20 mls/hr IVPB TITR [facility]; 1,000 UNITS/HR PRN Reason: Protocol Last Titration: 06/22/17 06:22 Dose: 750 units/hr, 15 mls/hr Melatonin (Melatonin) 5 mg PO HS PRN PRN Reason: INSOMNIA Last Admin: 06/21/17 21:55 Dose: 5 mg Metoprolol Succinate (Toprol Xl -) 50 mg PO BID [facility] Last Admin: 06/22/17 09:31 Dose: 50 mg Nystatin (Nystop Powder -) 1 applic TP BID [facility] Last Admin: 06/22/17 09:34 Dose: 1 applic Pantoprazole Sodium (Protonix Iv) 40 mg IVPUSH DAILY [facility] Last Admin: 06/22/17 09:32 Dose: 40 mg Warfarin Sodium (Coumadin -) 3 mg PO DAILY@1800 [facility] Last Admin: 06/21/17 17:32 Dose: 3 mg - Objective Vital Signs: Vital Signs Temperature 98.6 F 06/22/17 14:00 Pulse Rate 107 H 06/22/17 14:00 Respiratory Rate 18 06/22/17 14:00 Blood Pressure 92/54 06/22/17 14:00 O2 Sat by Pulse Oximetry (%) 98 06/22/17 09:00 Constitutional: Yes: No Distress, Calm Cardiovascular: Yes: Tachycardia, Pulse Irregular Respiratory: Yes: Regular, On Nasal O2 Gastrointestinal: Yes: Normal Bowel Sounds, Soft Musculoskeletal: Yes: WNL Extremities: Yes: WNL Neurological: Yes: Alert, Oriented Psychiatric: Yes: Alert, Oriented Labs: CBC, BMP 06/19/17 19:15 06/18/17 06:00 INR, PTT INR 1.73 (0.82-1.09) H 06/22/17 12:00 Assessment/Plan 86 year old female with PMH of CHF, COPD, CAD, HTN, HLD, diverticulitis, and recent ICU admission for sepsis 2/2 PNA presenting from [facility] in acute respiratory distress readmitted to ICU for hypoxic respiratory failure 2/2 recurrent PNA c/ b CHF exacerbation, Plan: hypoxic resp failure pna septic shock lactic acidosis chf acute on chronic renal failure plan will stop abx and watch close watch physio desaturated during cardioversion
[2017-06-22] MEDS: WARFARIN NA 3 MG TABLET PO SCH (17:21)
[2017-06-22] MEDS ORDERED: CLINDAMYCIN HCL 150 MG CAPSULE (FP) PO SCH (18:00)
[2017-06-22] MEDS: CLINDAMYCIN HCL 150 MG CAPSULE (FP) PO SCH (19:48)
[2017-06-22] MEDS: ACETAMINOPHEN 325 MG TABLET (FP) PO PRN (22:10)
[2017-06-22] MEDS: guaiFENesin/D-METHORPHAN HB 10 ML UNIT-DOSE CUPS PO PRN (23:02)
[2017-06-23] MEDS: CLINDAMYCIN HCL 150 MG CAPSULE (FP) PO SCH ×4 (00:15→17:33)
[2017-06-23] MEDS: HEPARIN SOD,PORK IN 0.45% NACL 25,000 UNITS/500 ML INFUS.BAG IVPB SCH (06:02)
[2017-06-23 08:41] LABS: INR 1.7 (0.82-1.09); PROTHROMBIN TIME (PATIENT) 19.2 SEC (9.98-11.88)
[2017-06-23] MEDS: FUROSEMIDE 40 MG/4 ML INJECTABLE VIAL IVPUSH SCH (09:03)
[2017-06-23] MEDS: NYSTATIN POWDER 100,000 UNITS/GM - 15 GM TOPICAL POWDER TP SCH ×2 (09:04→21:00)
[2017-06-23] MEDS: CLOTRIMAZOLE/BETAMET DIPROP 15 GM TUBE TP SCH ×2 (09:04→20:59)
[2017-06-23] MEDS: PANTOPRAZOLE SODIUM 40 MG VIAL IVPUSH SCH (09:04)
[2017-06-23] MEDS: METOPROLOL SUCCINATE 50 MG TAB.SR.24H (FP) PO SCH ×2 (09:05→21:00)
[2017-06-23] MEDS: HEPARIN NA (PORCINE) 5,000 UNITS/ML 1ML VIAL IVPUSH PRN (09:05)
--- NOTE | 2017-06-23 13:06 | PN ---
Progress Note (short form) - Note Progress Note: PULMONARY APPEARS STABLE NO DIARRHEA TODAY VSS/98.2 TMAX ANICTERIC DIMINISHED B/L BREATH SOUNDS S1S2 OBESE LESS EDEMA LOWER EXT LABS/MEDS/NOTES/IMAGES REVIEWED UNABLE TO TOLERATE SEDATION FOR CARDIOVERSION Acute Hypoxic Respiratory Failure improved Pneumonia S/P Septic Shock Atrial Flutter with RVR Acute on Chronic Systolic Heart Failure Acute on Chronic Renal Failure Lactic Acidosis COPD CAD HTN Hyperlipidemia - taper FiO2 to keep Spo2 >90% - lasix/AC - PO as tolerated - DVT/GI prophylaxis - anti-tussives - daily wts - monitor diarrhea Leno PINEDA MD
--- NOTE | 2017-06-23 13:53 | PN ---
Progress Note, Physician Chief Complaint: No new complaints - Current Medication List Current Medications: Active Medications Acetaminophen (Tylenol -) 650 mg PO Q6H PRN PRN Reason: FEVER OR PAIN Last Admin: 06/22/17 22:10 Dose: 650 mg Clindamycin HCl (Cleocin -) 300 mg PO Q6HPO [facility] Last Admin: 06/23/17 06:02 Dose: 300 mg Clotrimazole (Lotrisone Cream (Small Tube)) 1 applic TP BID [facility] Last Admin: 06/23/17 09:04 Dose: 1 applic Diltiazem HCl (Cardizem Cd -) 120 mg PO BID [facility] Last Admin: 06/23/17 09:03 Dose: 120 mg Furosemide (Lasix Injection -) 40 mg IVPUSH DAILY [facility] Last Admin: 06/23/17 09:03 Dose: 40 mg Guaifenesin (Robitussin Dm -) 10 ml PO Q4H PRN PRN Reason: COUGH Last Admin: 06/22/17 23:02 Dose: 10 ml Heparin Sodium (Porcine) (Heparin -) 5,000 unit IVPUSH PRN PRN Last Admin: 06/22/17 06:22 Dose: 5,000 unit Heparin Sodium (Porcine) (Heparin -) 1,000 unit IVPUSH PRN PRN Last Admin: 06/23/17 09:05 Dose: 1,000 unit HEPARIN SOD,PORK IN 0.45% NACL (Heparin-1/2ns 25,000 Units/500) 25,000 units in 500 mls @ 20 mls/hr IVPB TITR [facility]; 1,000 UNITS/HR PRN Reason: Protocol Last Titration: 06/23/17 09:03 Dose: 700 units/hr, 14 mls/hr Melatonin (Melatonin) 5 mg PO HS PRN PRN Reason: INSOMNIA Last Admin: 06/21/17 21:55 Dose: 5 mg Metoprolol Succinate (Toprol Xl -) 50 mg PO BID [facility] Last Admin: 06/23/17 09:05 Dose: 50 mg Nystatin (Nystop Powder -) 1 applic TP BID [facility] Last Admin: 06/23/17 09:04 Dose: 1 applic Pantoprazole Sodium (Protonix Iv) 40 mg IVPUSH DAILY [facility] Last Admin: 06/23/17 09:04 Dose: 40 mg Warfarin Sodium (Coumadin -) 3 mg PO DAILY@1800 [facility] Last Admin: 06/22/17 17:21 Dose: 3 mg - Objective Vital Signs: Vital Signs Temperature 98.1 F 06/23/17 08:00 Pulse Rate 22 L 06/23/17 08:00 Respiratory Rate 18 06/23/17 08:00 Blood Pressure 116/69 06/23/17 08:00 O2 Sat by Pulse Oximetry (%) 98 06/23/17 08:00 Constitutional: Yes: Calm Eyes: Yes: WNL HENT: Yes: WNL Neck: Yes: WNL Cardiovascular: Yes: Tachycardia, Pulse Irregular Respiratory: Yes: WNL Gastrointestinal: Yes: WNL ...Rectal Exam: Yes: Deferred Musculoskeletal: Yes: Muscle Weakness Edema: No Labs: CBC, BMP 06/19/17 19:15 06/18/17 06:00 INR, PTT INR 1.70 (0.82-1.09) H 06/23/17 08:30 Assessment/Plan D.C CVP line DC heparin
[2017-06-23] MEDS ORDERED: FUROSEMIDE 40 MG/4 ML INJECTABLE VIAL ONE (15:13)
--- NOTE | 2017-06-23 15:28 | PN ---
Progress Note, Physician History of Present Illness: stable off of abx her mouth does bother her - Current Medication List Current Medications: Active Medications Acetaminophen (Tylenol -) 650 mg PO Q6H PRN PRN Reason: FEVER OR PAIN Last Admin: 06/22/17 22:10 Dose: 650 mg Clindamycin HCl (Cleocin -) 300 mg PO Q6HPO [facility] Last Admin: 06/23/17 15:22 Dose: 300 mg Clotrimazole (Lotrisone Cream (Small Tube)) 1 applic TP BID [facility] Last Admin: 06/23/17 09:04 Dose: 1 applic Diltiazem HCl (Cardizem Cd -) 120 mg PO BID [facility] Last Admin: 06/23/17 09:03 Dose: 120 mg Furosemide (Lasix Injection -) 40 mg IVPUSH DAILY [facility] Last Admin: 06/23/17 09:03 Dose: 40 mg Guaifenesin (Robitussin Dm -) 10 ml PO Q4H PRN PRN Reason: COUGH Last Admin: 06/22/17 23:02 Dose: 10 ml Heparin Sodium (Porcine) (Heparin -) 1,000 unit IVPUSH PRN PRN Last Admin: 06/23/17 09:05 Dose: 1,000 unit Melatonin (Melatonin) 5 mg PO HS PRN PRN Reason: INSOMNIA Last Admin: 06/21/17 21:55 Dose: 5 mg Metoprolol Succinate (Toprol Xl -) 50 mg PO BID [facility] Last Admin: 06/23/17 09:05 Dose: 50 mg Nystatin (Nystop Powder -) 1 applic TP BID [facility] Last Admin: 06/23/17 09:04 Dose: 1 applic Pantoprazole Sodium (Protonix -) 40 mg PO DAILY [facility] Warfarin Sodium (Coumadin -) 5 mg PO DAILY@1800 [facility] - Objective Vital Signs: Vital Signs Temperature 98.2 F 06/23/17 13:45 Pulse Rate 102 H 06/23/17 13:45 Respiratory Rate 18 06/23/17 13:45 Blood Pressure 95/62 06/23/17 13:45 O2 Sat by Pulse Oximetry (%) 98 06/23/17 08:00 Constitutional: Yes: No Distress, Calm Cardiovascular: Yes: Pulse Irregular Respiratory: Yes: Regular, CTA Bilaterally, On Nasal O2 Gastrointestinal: Yes: Normal Bowel Sounds, Soft Musculoskeletal: Yes: WNL Extremities: Yes: WNL Neurological: Yes: Alert, Oriented Psychiatric: Yes: Alert, Oriented Labs: CBC, BMP 06/19/17 19:15 06/18/17 06:00 INR, PTT INR 1.70 (0.82-1.09) H 06/23/17 08:30 Assessment/Plan 86 year old female with PMH of CHF, COPD, CAD, HTN, HLD, diverticulitis, and recent ICU admission for sepsis 2/2 PNA presenting from NH in acute respiratory distress readmitted to ICU for hypoxic respiratory failure 2/2 recurrent PNA c/ b CHF exacerbation, Plan: hypoxic resp failure pna septic shock lactic acidosis chf acute on chronic renal failure plan stable off of abx close watch physio desaturated during cardioversion
[2017-06-23] MEDS ORDERED: PT OWN MED DRAWER 7, Y5N ONE (17:21)
[2017-06-23] MEDS: WARFARIN NA 5 MG TABLET (UD) PO SCH (17:34)
[2017-06-24] MEDS: CLINDAMYCIN HCL 150 MG CAPSULE (FP) PO SCH ×4 (00:10→18:24)
[2017-06-24] MEDS: guaiFENesin/D-METHORPHAN HB 10 ML UNIT-DOSE CUPS PO PRN ×2 (01:43→20:39)
--- NOTE | 2017-06-24 09:17 | PN ---
Progress Note, Physician Chief Complaint: C/O pain in the buttock area - Current Medication List Current Medications: Active Medications Acetaminophen (Tylenol -) 650 mg PO Q6H PRN PRN Reason: FEVER OR PAIN Last Admin: 06/22/17 22:10 Dose: 650 mg Clindamycin HCl (Cleocin -) 300 mg PO Q6HPO [facility] Last Admin: 06/24/17 05:58 Dose: 300 mg Clotrimazole (Lotrisone Cream (Small Tube)) 1 applic TP BID [facility] Last Admin: 06/23/17 20:59 Dose: 1 applic Diltiazem HCl (Cardizem Cd -) 120 mg PO BID [facility] Last Admin: 06/23/17 21:00 Dose: 120 mg Furosemide (Lasix Injection -) 40 mg IVPUSH DAILY [facility] Last Admin: 06/23/17 09:03 Dose: 40 mg Guaifenesin (Robitussin Dm -) 10 ml PO Q4H PRN PRN Reason: COUGH Last Admin: 06/24/17 01:43 Dose: 10 ml Heparin Sodium (Porcine) (Heparin -) 1,000 unit IVPUSH PRN PRN Last Admin: 06/23/17 09:05 Dose: 1,000 unit Melatonin (Melatonin) 5 mg PO HS PRN PRN Reason: INSOMNIA Last Admin: 06/21/17 21:55 Dose: 5 mg Metoprolol Succinate (Toprol Xl -) 50 mg PO BID [facility] Last Admin: 06/23/17 21:00 Dose: 50 mg Nystatin (Nystop Powder -) 1 applic TP BID [facility] Last Admin: 06/23/17 21:00 Dose: 1 applic Pantoprazole Sodium (Protonix -) 40 mg PO DAILY [facility] Warfarin Sodium (Coumadin -) 5 mg PO DAILY@1800 [facility] Last Admin: 06/23/17 17:34 Dose: 5 mg - Objective Vital Signs: Vital Signs Temperature 98.6 F 06/24/17 06:00 Pulse Rate 107 H 06/24/17 06:00 Respiratory Rate 18 06/24/17 06:00 Blood Pressure 102/42 06/24/17 06:00 O2 Sat by Pulse Oximetry (%) 99 06/23/17 20:36 Constitutional: Yes: Anxious Eyes: Yes: WNL HENT: Yes: WNL Neck: Yes: WNL Cardiovascular: Yes: WNL Respiratory: Yes: WNL Gastrointestinal: Yes: Normal Bowel Sounds ...Rectal Exam: Yes: Deferred Genitourinary: Yes: WNL Breast(s): Yes: WNL Musculoskeletal: Yes: Muscle Weakness Edema: No Integumentary: Yes: Other (There is a small skin ulcer in buttock area,it was there before) Labs: CBC, BMP 06/19/17 19:15 06/18/17 06:00 INR, PTT INR 1.70 (0.82-1.09) H 06/23/17 08:30 Assessment/Plan SNF placement
[2017-06-24] MEDS: METOPROLOL SUCCINATE 50 MG TAB.SR.24H (FP) PO SCH ×2 (10:01→22:41)
[2017-06-24] MEDS: PANTOPRAZOLE 40 MG TABLET (FP) PO SCH (10:01)
--- NOTE | 2017-06-24 10:56 | PN ---
Progress Note (short form) - Note Progress Note: 86 year old female with history of hypertension, coronary artery disease, angina pectoris, COPD, hypercholesterolemia, recent acute respiratory failure. Had been in slow atrial flutter/?atrial tachycardia 2:1 conduction Patient offers no complaints, no change in rhythm and unresponsive to treatment and unable to undergo repeart cardoiversion due o2 desaturation on receiving sedation. She had been on amiodarone along with beta blockers and cardizem and reverted to atrial flutter following last cardioversion. remains asymptomatic and heart is unchanged. Active Medications Acetaminophen (Tylenol -) 650 mg PO Q6H PRN PRN Reason: FEVER OR PAIN Last Admin: 06/22/17 22:10 Dose: 650 mg Clindamycin HCl (Cleocin -) 300 mg PO Q6HPO [facility] Last Admin: 06/24/17 05:58 Dose: 300 mg Clotrimazole (Lotrisone Cream (Small Tube)) 1 applic TP BID [facility] Last Admin: 06/23/17 20:59 Dose: 1 applic Diltiazem HCl (Cardizem Cd -) 120 mg PO BID [facility] Last Admin: 06/24/17 10:01 Dose: 120 mg Furosemide (Lasix -) 40 mg PO DAILY [facility] Guaifenesin (Robitussin Dm -) 10 ml PO Q4H PRN PRN Reason: COUGH Last Admin: 06/24/17 01:43 Dose: 10 ml Heparin Sodium (Porcine) (Heparin -) 1,000 unit IVPUSH PRN PRN Last Admin: 06/23/17 09:05 Dose: 1,000 unit Melatonin (Melatonin) 5 mg PO HS PRN PRN Reason: INSOMNIA Last Admin: 06/21/17 21:55 Dose: 5 mg Metoprolol Succinate (Toprol Xl -) 50 mg PO BID [facility] Last Admin: 06/24/17 10:01 Dose: 50 mg Nystatin (Nystop Powder -) 1 applic TP BID [facility] Last Admin: 06/23/17 21:00 Dose: 1 applic Pantoprazole Sodium (Protonix -) 40 mg PO DAILY [facility] Last Admin: 06/24/17 10:01 Dose: 40 mg Warfarin Sodium (Coumadin -) 5 mg PO DAILY@1800 [facility] Last Admin: 06/23/17 17:34 Dose: 5 mg 86 year old AA female, in no acute distress, pallor+, no clubbing, jaundice or cyanosis. Last Vital Signs Temp Pulse Resp BP Pulse Ox 98 F 110 H 20 100/42 99 06/24/17 10:00 06/24/17 10:00 06/24/17 10:06/24/17 10:00 06/23/17 20:36 NECK: Supple, no JVD, carotids equal, no bruits or thyromegaly. Heart: Distant heart sounds, no murmur or gallops appreciated. Lungs: Decreased breath sounds at both bases. Abdomen: Obese. No hepatosplenomegaly was appreciated. Extremities: No calf tenderness or dependent edema. CBC, BMP 06/19/17 19:15 06/18/17 06:00 Impression: 1. Atrial flutter/ ?atrial tachycardia with 2:1 conduction. 2. S/p flash pulmonary edema . 3. COPD. 4. Chronic UTI. 5. Bronchial asthma. 6. CKD. 7. History of obstructive sleep apnea. 8. Morbid obesity. 9. CAD, angina pectoris. 10. H/o OSAS. Recommendations: 1. Would suggest, provided patient and family agrees to it that she is transfered to medical center for EP and radio frequency ablation. Prognosis: Guarded
--- NOTE | 2017-06-24 11:31 | PN ---
Progress Note, Physician History of Present Illness: PULMONARY ALERT,OOB-CHAIR,-RESP DISTRESS - Current Medication List Current Medications: Active Medications Acetaminophen (Tylenol -) 650 mg PO Q6H PRN PRN Reason: FEVER OR PAIN Last Admin: 06/22/17 22:10 Dose: 650 mg Clindamycin HCl (Cleocin -) 300 mg PO Q6HPO [facility] Last Admin: 06/24/17 05:58 Dose: 300 mg Clotrimazole (Lotrisone Cream (Small Tube)) 1 applic TP BID [facility] Last Admin: 06/23/17 20:59 Dose: 1 applic Diltiazem HCl (Cardizem Cd -) 120 mg PO BID [facility] Last Admin: 06/24/17 10:01 Dose: 120 mg Furosemide (Lasix -) 40 mg PO DAILY [facility] Guaifenesin (Robitussin Dm -) 10 ml PO Q4H PRN PRN Reason: COUGH Last Admin: 06/24/17 01:43 Dose: 10 ml Heparin Sodium (Porcine) (Heparin -) 1,000 unit IVPUSH PRN PRN Last Admin: 06/23/17 09:05 Dose: 1,000 unit Melatonin (Melatonin) 5 mg PO HS PRN PRN Reason: INSOMNIA Last Admin: 06/21/17 21:55 Dose: 5 mg Metoprolol Succinate (Toprol Xl -) 50 mg PO BID [facility] Last Admin: 06/24/17 10:01 Dose: 50 mg Nystatin (Nystop Powder -) 1 applic TP BID [facility] Last Admin: 06/23/17 21:00 Dose: 1 applic Pantoprazole Sodium (Protonix -) 40 mg PO DAILY [facility] Last Admin: 06/24/17 10:01 Dose: 40 mg Warfarin Sodium (Coumadin -) 5 mg PO DAILY@1800 [facility] Last Admin: 06/23/17 17:34 Dose: 5 mg - Objective Vital Signs: Vital Signs Temperature 98 F 06/24/17 10:00 Pulse Rate 110 H 06/24/17 10:00 Respiratory Rate 20 06/24/17 10:00 Blood Pressure 100/42 06/24/17 10:00 O2 Sat by Pulse Oximetry (%) 99 06/23/17 20:36 Constitutional: Yes: Calm, Obese Eyes: Yes: WNL HENT: Yes: WNL Neck: Yes: WNL Cardiovascular: Yes: Pulse Irregular, S1, S2 Respiratory: Yes: Diminished Gastrointestinal: Yes: Normal Bowel Sounds, Soft Extremities: Yes: WNL Edema: No Labs: CBC, BMP Problem List - Problems (1) CHF (NYHA class II, ACC/AHA stage C) Code(s): I50.9 - HEART FAILURE, UNSPECIFIED (2) Respiratory distress, acute Code(s): R06.03 - ACUTE RESPIRATORY DISTRESS (3) Sepsis Code(s): A41.9 - SEPSIS, UNSPECIFIED ORGANISM Qualifiers: Sepsis type: sepsis due to unspecified organism Qualified Code(s): A41.9 - Sepsis, unspecified organism (4) Atrial fibrillation with RVR Code(s): I48.91 - UNSPECIFIED ATRIAL FIBRILLATION (5) COPD mixed type Code(s): J44.9 - CHRONIC OBSTRUCTIVE PULMONARY DISEASE, UNSPECIFIED (6) Healthcare-associated pneumonia Code(s): J18.9 - PNEUMONIA, UNSPECIFIED ORGANISM (7) Persistent atrial fibrillation Code(s): I48.1 - PERSISTENT ATRIAL FIBRILLATION (8) Renal function impairment Code(s): N28.9 - DISORDER OF KIDNEY AND URETER, UNSPECIFIED (9) Wheezing Code(s): R06.2 - WHEEZING (10) CKD stage G3b/A3, GFR 30-44 and albumin creatinine ratio >300 mg/g Code(s): N18.3 - CHRONIC KIDNEY DISEASE, STAGE 3 (MODERATE) (11) Acute on chronic renal failure Code(s): N17.9 - ACUTE KIDNEY FAILURE, UNSPECIFIED; N18.9 - CHRONIC KIDNEY DISEASE, UNSPECIFIED Assessment/Plan A/P Acute Hypoxic Respiratory Failure improved Pneumonia S/P Septic Shock Atrial Flutter with RVR Acute on Chronic Systolic Heart Failure Acute on Chronic Renal Failure COPD CAD HTN Hyperlipidemia - taper FiO2 to keep Spo2 >90% - lasix - PO as tolerated - DVT/GI prophylaxis - anti-tussives - daily wts - monitor lytes,renal function - EP STUDIES PER CARDIOLOGY [employer] [facility] DR GOMEZ
[2017-06-24] MEDS: FUROSEMIDE 40 MG TABLET (FP) PO SCH (12:15)
[2017-06-24] MEDS: CLOTRIMAZOLE/BETAMET DIPROP 15 GM TUBE TP SCH ×2 (12:16→22:43)
[2017-06-24] MEDS: NYSTATIN POWDER 100,000 UNITS/GM - 15 GM TOPICAL POWDER TP SCH ×2 (12:16→22:43)
[2017-06-24 12:23] LABS: INR 2.45 (0.82-1.09); PROTHROMBIN TIME (PATIENT) 27.7 SEC (9.98-11.88)
--- NOTE | 2017-06-24 13:23 | PN ---
Progress Note, Physician History of Present Illness: stable no issues breathing well - Current Medication List Current Medications: Active Medications Acetaminophen (Tylenol -) 650 mg PO Q6H PRN PRN Reason: FEVER OR PAIN Last Admin: 06/22/17 22:10 Dose: 650 mg Clindamycin HCl (Cleocin -) 300 mg PO Q6HPO [facility] Last Admin: 06/24/17 12:16 Dose: 300 mg Clotrimazole (Lotrisone Cream (Small Tube)) 1 applic TP BID [facility] Last Admin: 06/24/17 12:16 Dose: 1 applic Diltiazem HCl (Cardizem Cd -) 120 mg PO BID [facility] Last Admin: 06/24/17 10:01 Dose: 120 mg Furosemide (Lasix -) 40 mg PO DAILY [facility] Last Admin: 06/24/17 12:15 Dose: 40 mg Guaifenesin (Robitussin Dm -) 10 ml PO Q4H PRN PRN Reason: COUGH Last Admin: 06/24/17 01:43 Dose: 10 ml Heparin Sodium (Porcine) (Heparin -) 1,000 unit IVPUSH PRN PRN Last Admin: 06/23/17 09:05 Dose: 1,000 unit Melatonin (Melatonin) 5 mg PO HS PRN PRN Reason: INSOMNIA Last Admin: 06/21/17 21:55 Dose: 5 mg Metoprolol Succinate (Toprol Xl -) 50 mg PO BID [facility] Last Admin: 06/24/17 10:01 Dose: 50 mg Nystatin (Nystop Powder -) 1 applic TP BID [facility] Last Admin: 06/24/17 12:16 Dose: 1 applic Pantoprazole Sodium (Protonix -) 40 mg PO DAILY [facility] Last Admin: 06/24/17 10:01 Dose: 40 mg Warfarin Sodium (Coumadin -) 5 mg PO DAILY@1800 [facility] Last Admin: 06/23/17 17:34 Dose: 5 mg - Objective Vital Signs: Vital Signs Temperature 98 F 06/24/17 10:00 Pulse Rate 110 H 06/24/17 10:00 Respiratory Rate 20 06/24/17 10:00 Blood Pressure 100/42 06/24/17 10:00 O2 Sat by Pulse Oximetry (%) 99 06/23/17 20:36 Constitutional: Yes: No Distress, Calm Cardiovascular: Yes: Pulse Irregular Respiratory: Yes: Regular, CTA Bilaterally, On Nasal O2 Gastrointestinal: Yes: Normal Bowel Sounds, Soft Musculoskeletal: Yes: WNL Extremities: Yes: WNL Neurological: Yes: Alert, Oriented Psychiatric: Yes: Alert, Oriented Labs: CBC, BMP 06/19/17 19:15 06/18/17 06:00 INR, PTT INR 2.45 (0.82-1.09) H D 06/24/17 11:24 Assessment/Plan 86 year old female with PMH of CHF, COPD, CAD, HTN, HLD, diverticulitis, and recent ICU admission for sepsis 2/2 PNA presenting from NH in acute respiratory distress readmitted to ICU for hypoxic respiratory failure 2/2 recurrent PNA c/ b CHF exacerbation, Plan: hypoxic resp failure pna septic shock lactic acidosis chf acute on chronic renal failure plan continue clinda close watch physio incentive vasiliy dental hygiene
[2017-06-24] MEDS: WARFARIN NA 5 MG TABLET (UD) PO SCH (18:24)
[2017-06-24] MEDS: MELATONIN 5 MG TABLETS PO PRN (22:42)
[2017-06-25] MEDS: CLINDAMYCIN HCL 150 MG CAPSULE (FP) PO SCH ×3 (00:10→11:41)
[2017-06-25] MEDS: guaiFENesin/D-METHORPHAN HB 10 ML UNIT-DOSE CUPS PO PRN (04:19)
[2017-06-25 06:00] VITALS: PULSE 108
--- NOTE | 2017-06-25 08:59 | DS ---
Physical Examination Vital Signs: Vital Signs Temperature 98.4 F 06/25/17 05:59 Pulse Rate 108 H 06/25/17 05:59 Respiratory Rate 20 06/25/17 05:59 Blood Pressure 91/57 06/25/17 05:59 O2 Sat by Pulse Oximetry (%) 93 L 06/24/17 21:00 Findings/Remarks: 86 Yr old female with Af ,CHF ,Ac bronchitis CHF and bronchitis improved Afib with fast Vrate persisted,attempted Cardiovertion,not worked To be trasfered to [facility] for ablaton procedure Constitutional: Yes: No Distress Eyes: Yes: WNL HENT: Yes: WNL Neck: Yes: WNL Cardiovascular: Yes: Tachycardia, Pulse Irregular Respiratory: Yes: Regular Gastrointestinal: Yes: Normal Bowel Sounds ...Rectal Exam: Yes: Deferred Renal/: Yes: WNL Musculoskeletal: Yes: Muscle Weakness Edema: No Integumentary: Yes: Skin Tear Neurological: Yes: Alert Psychiatric: Yes: Alert Labs: CBC, BMP 06/19/17 19:15 06/18/17 06:00 Discharge Summary Reason For Visit: CHF,NYHA CLASS#2 & ACC/AHA STAGE C,SEPSIS,ACUTE Current Active Problems Acute on chronic renal failure (Acute) CHF (NYHA class II, ACC/AHA stage C) (Acute) Respiratory distress, acute (Acute) Sepsis (Acute) Condition: Critical - Instructions Referrals: Ira Cho MD [Primary Care Provider] - - Home Medications Comprehensive Discharge Medication List: Ambulatory Orders Isosorbide Mononitrate [Isosorbide Mononitrate ER] 30 mg PO DAILY 01/18/17 Losartan Potassium 50 mg PO DAILY 01/18/17 Albuterol 0.083% Nebulizer Madhavi [Ventolin 0.083% Nebulizer Soln -] 1 neb NEB Q6H 04/21/17 Albuterol Sulfate [Proair Respiclick] 90 mcg IH DAILY 04/21/17 Promethazine HCl [Phenergan Plain 6.25 MG/5 ML -] 10 ml PO TID 04/21/17 Nitrofurantoin Macrocrystal [Nitrofurantoin] 100 mg PO BID 04/22/17 Oxycodone HCl [Roxicodone -] 5 mg PO Q6H PRN 04/22/17 Amiodarone HCl [Cordarone -] 200 mg PO BID tablet 05/05/17 Ascorbic Acid [Vitamin C -] 500 mg PO DAILY tablet 05/05/17 Aspirin [ASA -] 81 mg PO DAILY tab.chew 05/05/17 Cholecalciferol (Vitamin D3) [Vitamin D3 -] 5,000 unit PO DAILY tab 05/05/17 Ranitidine [Zantac -] 150 mg PO DAILY tablet 05/05/17 Salmeterol/Fluticasone [Advair 100Mcg/50Mcg -] 1 puff IH BID inhaler 05/05/17 Guaifenesin Dm [Robitussin Dm -] 10 ml PO Q4H PRN cup 05/27/17 Metoprolol Succinate [Toprol XL -] 100 mg PO BID tab.sr.24h 05/27/17 Pantoprazole Sodium [Protonix -] 40 mg PO DAILY tablet.ec 05/27/17 Diltiazem Cd [Cardizem Cd -] 240 mg PO DAILY cap.cd.24h 06/10/17 Lactobacillus Acidophilus [Bacid -] 1 tab PO DAILY tab 06/10/17 Warfarin Na [Coumadin -] 3 mg PO DAILY@1800 tablet 06/10/17
[2017-06-25] MEDS: METOPROLOL SUCCINATE 50 MG TAB.SR.24H (FP) PO SCH (09:14)
[2017-06-25] MEDS: PANTOPRAZOLE 40 MG TABLET (FP) PO SCH (09:14)
[2017-06-25] MEDS: FUROSEMIDE 40 MG TABLET (FP) PO SCH (10:05)
[2017-06-25] MEDS: NYSTATIN POWDER 100,000 UNITS/GM - 15 GM TOPICAL POWDER TP SCH (10:05)
[2017-06-25] MEDS: CLOTRIMAZOLE/BETAMET DIPROP 15 GM TUBE TP SCH (10:05)
--- NOTE | 2017-06-25 10:46 | PN ---
Progress Note (short form) - Note Progress Note: 86 year old female with history of hypertension, coronary artery disease, angina pectoris, COPD, Mild to moderate LV systolic dysfunction , hypercholesterolemia, recent admission flash pulmonary edema and acute respiratory failure requiring intubation. Had been in slow atrial flutter/? atrial tachycardia 2:1 conduction. Patient offers no complaints, no change in rhythm and unresponsive to medical treatment. Patient unable to undergo repeat cardoiversion due O2 desaturation on receiving sedation. Had previously undergone NICOLAS/Cardioversion and reverted to sinus rhythm for a short duration while she was on multiple drug regimens. Remains asymptomatic and heart is unchanged. Patient and PCP are agreeable for transfer and arrangements have been made. Active Medications Generic Name Dose Route Start Last Admin Trade Name Freq PRN Reason Stop Dose Admin Acetaminophen 650 mg 06/21/17 17:24 06/22/17 22:10 Tylenol - PO 650 mg Q6H PRN Administration FEVER OR PAIN Clindamycin HCl 300 mg 06/22/17 18:00 06/25/17 06:54 Cleocin - PO 300 mg Q6HPO [facility] Administration Clotrimazole 1 applic 06/16/17 22:00 06/25/17 10:05 Lotrisone Cream (Small Tube) TP 1 applic BID [facility] Administration Diltiazem HCl 120 mg 06/21/17 22:00 06/25/17 09:14 Cardizem Cd - PO 120 mg BID [facility] Administration Furosemide 40 mg 06/24/17 10:00 06/25/17 10:05 Lasix - PO 40 mg DAILY [facility] Administration Guaifenesin 10 ml 06/18/17 11:27 06/25/17 04:19 Robitussin Dm - PO 10 ml Q4H PRN Administration COUGH Heparin Sodium (Porcine) 1,000 unit 06/19/17 19:13 06/23/17 09:05 Heparin - IVPUSH 1,000 unit PRN PRN Administration Melatonin 5 mg 06/15/17 12:50 06/24/17 22:42 Melatonin PO 5 mg HS PRN Administration INSOMNIA Metoprolol Succinate 50 mg 06/17/17 22:00 06/25/17 09:14 Toprol Xl - PO 50 mg BID [facility] Administration Nystatin 1 applic 06/15/17 22:00 06/25/17 10:05 Nystop Powder - TP 1 applic BID [facility] Administration Pantoprazole Sodium 40 mg 06/24/17 10:00 06/25/17 09:14 Protonix - PO 40 mg DAILY [facility] Administration Warfarin Sodium 5 mg 06/23/17 18:00 06/24/17 18:24 Coumadin - PO 5 mg DAILY@1800 [facility] Administration 86 year old AA female, in no acute distress, pallor+, no clubbing, jaundice or cyanosis. Last Vital Signs Temp Pulse Resp BP Pulse Ox 98.4 F 108 H 20 91/57 93 L 06/25/17 05:59 06/25/17 05:59 06/25/17 05:59 06/25/17 05:59 06/24/17 21:00 NECK: Supple, no JVD, carotids equal, no bruits or thyromegaly. Heart: Distant heart sounds, no murmur or gallops appreciated. Lungs: Decreased breath sounds at both bases. Abdomen: Obese. No hepatosplenomegaly was appreciated. Extremities: No calf tenderness or dependent edema. CBC, BMP 06/19/17 19:15 06/18/17 06:00 Impression: 1. Atrial flutter/ ?atrial tachycardia with 2:1 conduction. 2. S/p flash pulmonary edema . 3. COPD. 4. Chronic UTI. 5. Bronchial asthma. 6. CKD. 7. History of obstructive sleep apnea. 8. Morbid obesity. 9. CAD, angina pectoris. 10. H/o OSAS. Recommendations: 1. To be transferred to [facility] for EP and possible ablation. 2. Follow up Chest Xray. 3. CBC and BMP. Prognosis: Guarded
[2017-06-25 11:07] LABS: HEMATOCRIT 30.3 % (32.4-45.2); HEMOGLOBIN 9.4 GM/dL (10.7-15.3); MCH 30.2 pg (25.7-33.7); MCHC 31.1 g/dl (32.0-36.0); MEAN CELL VOLUME 97.2 fl (80-96); MEAN PLT VOLUME 9.3 fl (7.5-11.1); PLATELET COUNT 233 K/MM3 (134-434); RBC 3.12 M/mm3 (3.60-5.2); RDW 19.8 % (11.6-15.6); WHITE BLOOD COUNT 11.6 K/mm3 (4.0-10.0)
[2017-06-25 11:09] VITALS: BP 102/74; TEMP 98.6
--- NOTE | 2017-06-25 11:36 | PN ---
Progress Note, Physician History of Present Illness: pulmonary alert,sitting up in bed,-sob,-cp. to be transferred to [facility] for ep studies and ablation - Current Medication List Current Medications: Active Medications Acetaminophen (Tylenol -) 650 mg PO Q6H PRN PRN Reason: FEVER OR PAIN Last Admin: 06/22/17 22:10 Dose: 650 mg Clindamycin HCl (Cleocin -) 300 mg PO Q6HPO [facility] Last Admin: 06/25/17 06:54 Dose: 300 mg Clotrimazole (Lotrisone Cream (Small Tube)) 1 applic TP BID [facility] Last Admin: 06/25/17 10:05 Dose: 1 applic Diltiazem HCl (Cardizem Cd -) 120 mg PO BID [facility] Last Admin: 06/25/17 09:14 Dose: 120 mg Furosemide (Lasix -) 40 mg PO DAILY [facility] Last Admin: 06/25/17 10:05 Dose: 40 mg Guaifenesin (Robitussin Dm -) 10 ml PO Q4H PRN PRN Reason: COUGH Last Admin: 06/25/17 04:19 Dose: 10 ml Heparin Sodium (Porcine) (Heparin -) 1,000 unit IVPUSH PRN PRN Last Admin: 06/23/17 09:05 Dose: 1,000 unit Melatonin (Melatonin) 5 mg PO HS PRN PRN Reason: INSOMNIA Last Admin: 06/24/17 22:42 Dose: 5 mg Metoprolol Succinate (Toprol Xl -) 50 mg PO BID [facility] Last Admin: 06/25/17 09:14 Dose: 50 mg Nystatin (Nystop Powder -) 1 applic TP BID [facility] Last Admin: 06/25/17 10:05 Dose: 1 applic Pantoprazole Sodium (Protonix -) 40 mg PO DAILY [facility] Last Admin: 06/25/17 09:14 Dose: 40 mg Warfarin Sodium (Coumadin -) 5 mg PO DAILY@1800 [facility] Last Admin: 06/24/17 18:24 Dose: 5 mg - Objective Vital Signs: Vital Signs Temperature 98.6 F 06/25/17 10:00 Pulse Rate 108 H 06/25/17 10:00 Respiratory Rate 20 06/25/17 10:00 Blood Pressure 102/74 06/25/17 10:00 O2 Sat by Pulse Oximetry (%) 93 L 06/25/17 10:00 Constitutional: Yes: Well Nourished, Calm, Obese Eyes: Yes: WNL HENT: Yes: WNL Neck: Yes: WNL Cardiovascular: Yes: Pulse Irregular, S1, S2 Respiratory: Yes: Diminished Gastrointestinal: Yes: Normal Bowel Sounds, Soft Extremities: Yes: WNL Edema: No Labs: CBC, BMP 06/25/17 10:45 INR, PTT INR 2.45 (0.82-1.09) H D 06/24/17 11:24 - ....Imaging Chest X-ray: Image Reviewed (r pleural effusion) Problem List - Problems (1) CHF (NYHA class II, ACC/AHA stage C) Code(s): I50.9 - HEART FAILURE, UNSPECIFIED (2) Respiratory distress, acute Code(s): R06.03 - ACUTE RESPIRATORY DISTRESS (3) Sepsis Code(s): A41.9 - SEPSIS, UNSPECIFIED ORGANISM Qualifiers: Sepsis type: sepsis due to unspecified organism Qualified Code(s): A41.9 - Sepsis, unspecified organism (4) Atrial fibrillation with RVR Code(s): I48.91 - UNSPECIFIED ATRIAL FIBRILLATION (5) COPD mixed type Code(s): J44.9 - CHRONIC OBSTRUCTIVE PULMONARY DISEASE, UNSPECIFIED (6) Healthcare-associated pneumonia Code(s): J18.9 - PNEUMONIA, UNSPECIFIED ORGANISM (7) Persistent atrial fibrillation Code(s): I48.1 - PERSISTENT ATRIAL FIBRILLATION (8) Renal function impairment Code(s): N28.9 - DISORDER OF KIDNEY AND URETER, UNSPECIFIED (9) Wheezing Code(s): R06.2 - WHEEZING (10) CKD stage G3b/A3, GFR 30-44 and albumin creatinine ratio >300 mg/g Code(s): N18.3 - CHRONIC KIDNEY DISEASE, STAGE 3 (MODERATE) (11) Acute on chronic renal failure Code(s): N17.9 - ACUTE KIDNEY FAILURE, UNSPECIFIED; N18.9 - CHRONIC KIDNEY DISEASE, UNSPECIFIED Assessment/Plan A/P Acute Hypoxic Respiratory Failure improved Pneumonia S/P Septic Shock Atrial Flutter with RVR Acute on Chronic Systolic Heart Failure Acute on Chronic Renal Failure COPD CAD HTN Hyperlipidemia - taper FiO2 to keep Spo2 >90% - lasix - PO as tolerated - DVT/GI prophylaxis - anti-tussives - daily wts - monitor lytes,renal function - EP STUDIES AND POSSIBLE ABLATION AT [facility] PER CARDIOLOGY DR GOMEZ
[2017-06-25 11:43] LABS: ALBUMIN 2.5 g/dl (3.4-5.0); ANION GAP 10 (8-16); BLOOD UREA NITROGEN 30 mg/dL (7-18); CALCIUM 8.7 mg/dL (8.5-10.1); CHLORIDE 105 mmol/L (98-107); CO2 29 mmol/L (21-32); CREATININE 2.2 mg/dL (0.55-1.02); GLUCOSE,RANDOM 86 mg/dL (74-106); POTASSIUM 4.3 mmol/L (3.5-5.1); SGOT/AST 20 U/L (15-37); SGPT/ALT 25 U/L (12-78); SODIUM 144 mmol/L (136-145)
[2017-06-25 11:44] LABS: ALK PHOS 65 U/L (45-117); BILIRUBIN,TOTAL 0.3 mg/dL (0.2-1.0); TOT PROT 6.7 g/dl (6.4-8.2)
== END 2017-06-25 15:03 | DRG 871 ==
LOC: JER 16:47 → JERBED 18:00 → JICU 21:49 → J4W 06-15 13:19 → J7W 06-24 07:20 → J4W 06-24 07:21
PROVIDERS: ADMIT Internal Medicine; ATTEND Internal Medicine
PROC: 05HM33Z Insertion of Infusion Device into Right Internal Jugular Vein, Percutaneous Approach (ICD-10-PCS; principal; 2017-06-11)
PROC: 0BH17EZ Insertion of Endotracheal Airway into Trachea, Via Natural or Artificial Opening (ICD-10-PCS; 2017-06-11)
PROC: 5A1935Z Respiratory Ventilation, Less than 24 Consecutive Hours (ICD-10-PCS; 2017-06-11)
PROC: 5A2204Z Restoration of Cardiac Rhythm, Single (ICD-10-PCS; 2017-06-20)
DX: A41.89 Other specified sepsis (principal); J96.01 Acute respiratory failure with hypoxia; J18.9 Pneumonia, unspecified organism; R65.21 Severe sepsis with septic shock; I50.23 Acute on chronic systolic (congestive) heart failure; N17.9 Acute kidney failure, unspecified; I13.0 Hypertensive heart and chronic kidney disease with heart failure and stage 1 through stage 4 chronic kidney disease, or unspecified chronic kidney disease; E87.2 Acidosis; I48.92 Unspecified atrial flutter; N39.0 Urinary tract infection, site not specified; I25.110 Atherosclerotic heart disease of native coronary artery with unstable angina pectoris; I48.1 Persistent atrial fibrillation; E78.5 Hyperlipidemia, unspecified; J44.9 Chronic obstructive pulmonary disease, unspecified; K57.90 Diverticulosis of intestine, part unspecified, without perforation or abscess without bleeding; E66.8 Other obesity; Z68.35 Body mass index [BMI] 35.0-35.9, adult; R00.0 Tachycardia, unspecified; D72.829 Elevated white blood cell count, unspecified; N18.3 Chronic kidney disease, stage 3 (moderate); D64.9 Anemia, unspecified; G47.33 Obstructive sleep apnea (adult) (pediatric)
CPT/HCPCS: 36415; 36600; 71010-TC; 71045-TC; 80048; 80053; 81003; 81015; 82375; 82550; 82803; 83050; 83605; 83735; 83880; 84100; 84484; 85025; 85027; 85610; 85730; 87040; 87086; 87324; 87449; 93005; 93010; 94002; 97116-GP; 97161-GP; 99285-25; J1644

== ENCOUNTER 2018-12-28 17:14 | Inpatient (IN) | payer OTHER, MEDICARE | END 2019-01-14 12:34 | LOC: JICU 01-02 18:39 → J5S 01-07 15:30 → JER 17:14 → JERBED 22:32 → J8W 23:50 ==

== ENCOUNTER 2019-01-22 16:11 | Inpatient (IN) | payer OTHER, MEDICARE ==
--- NOTE | 2019-01-22 17:05 | PDOC ---
History of Present Illness - General Chief Complaint: SIRS, Suspected/Possible Stated Complaint: SHORT OF BREATH Time Seen by Provider: 01/22/19 16:31 - History of Present Illness Initial Comments: Ms. Machado is a 88 y/o female with PMH of HTN, HLD, CHF, COPD, a-fib (on coumadin, last dose took today) presenting with shortness of breath. Reports that at baseline she is short of breath and uses oxygen at home but last night and this morning felt increasing shortness of breath. Reports fever. Was recently admitted for pneumonia. Denies chest pain, headache, dizziness, nausea/vomiting, abdominal pain. Infectious Disease: Dr. Rinaldi Surgery: Dr. Sharp, Dr. Torres Endo: Dr. Trejo Pulm: Dr. Amaya, Dr. Baumann Past History - Past Medical History Allergies/Adverse Reactions: Allergies Allergy/AdvReac Type Severity Reaction Status Date / Time Penicillins Allergy Verified 01/22/19 16:41 procaine Allergy Verified 01/22/19 16:41 Home Medications: Ambulatory Orders Acetaminophen [Tylenol] 650 mg PO QID PRN 12/28/18 Ascorbic Acid [Vitamin C] 500 mg PO DAILY 12/28/18 Aspirin 81 mg PO DAILY 12/28/18 Metoprolol Succinate [Toprol Xl] 50 mg PO HS 12/28/18 Ondansetron HCl [Zofran] 4 mg PO TID PRN 12/28/18 Salmeterol/Fluticasone [Advair 100Mcg/50Mcg -] 1 inh PO BID 12/28/18 Tramadol HCl 50 mg PO BID PRN 12/28/18 Albuterol 2.5/Ipratropium 0.5 [Duoneb -] 1 amp NEB RQ4H amp 01/12/19 Allopurinol [Zyloprim -] 100 mg PO DAILY tablet 01/12/19 Chlorhexidine Gluconate [Hibiclens For Decolonization -] 1 applic TP HS bottle 01/12/19 Furosemide [Lasix -] 40 mg PO DAILY tablet 01/12/19 Gabapentin [Neurontin -] 100 mg PO TID capsule 01/12/19 Methimazole [Tapazole -] 10 mg PO TID tablet 01/12/19 Nystatin Powder [Nystop Powder -] 1 applic TP DAILY applic 01/12/19 Ranitidine [Zantac -] 150 mg PO DAILY tablet 01/12/19 traMADol HCL [Ultram -] 50 mg PO Q8H PRN #30 tablet MDD 2 01/12/19 Diltiazem Cd [Cardizem Cd -] 180 mg PO DAILY cap.cd.24h 01/13/19 predniSONE [Deltasone -] 40 mg PO DAILY tablet 01/13/19 Lanolin Alcohol/Mo/W.pet/[place] [Eucerin Creme] 113 gm TP BID 01/22/19 Polyethylene Glycol 3350 [Miralax (For Daily Use) -] 17 gm PO DAILY 01/22/19 Silver Sulfadiazine 1% Top Cr [Silvadene -] 1 applic TP DAILY 01/22/19 Warfarin Na [Coumadin] 3 mg PO HS 01/22/19 Anemia: Yes Asthma: Yes Cancer: No Cardiac Disorders: Yes (ASHD, cardiac arrythmia,afib,cad) CVA: No COPD: Yes CHF: Yes Dementia: No Diabetes: Yes GI Disorders: No Disorders: No HTN: Yes Hypercholesterolemia: Yes Liver Disease: No Seizures: No Thyroid Disease: No - Surgical History Abdominal Surgery: Yes (hiatal hernia repair) Appendectomy: No Cardiac Surgery: No Cholecystectomy: No Lung Surgery: No Neurologic Surgery: No Orthopedic Surgery: Yes (erendira hip) - Immunization History Immunization Up to Date: Yes - Suicide/Smoking/Psychosocial Hx Smoking Status: No Smoking History: Never smoked Have you smoked in the past 12 months: No Number of Cigarettes Smoked Daily: 0 If you are a former smoker, when did you quit?: many years Information on smoking cessation initiated: No Hx Alcohol Use: No Drug/Substance Use Hx: No Substance Use Type: None Hx Substance Use Treatment: No Review of Systems - Review of Systems Comments:: ROS GENERAL/CONSTITUTIONAL: No fever or chills. HEAD, EYES, EARS, NOSE AND THROAT: No change in vision. No ear pain or discharge. No sore throat._ CARDIOVASCULAR: No chest pain. Reports shortness of breath. RESPIRATORY: Denies cough, hemoptysis. GASTROINTESTINAL: No nausea, vomiting, diarrhea or constipation. GENITOURINARY: No dysuria, frequency, or change in urination. MUSCULOSKELETAL: No joint or muscle swelling or pain. No neck or back pain._ SKIN: Reports bedsores over the sacrum. NEUROLOGIC: No headache, vertigo, loss of consciousness, or change in strength/ sensation._ ENDOCRINE: No increased thirst. No abnormal weight change_ HEMATOLOGIC/LYMPHATIC: No history of anemia. ALLERGIC/IMMUNOLOGIC: No hives or skin allergy. *Physical Exam - Vital Signs Last Vital Signs Temp Pulse Resp BP Pulse Ox 100.6 F H 80 24 H 115/59 L 82 L 01/22/19 16:42 01/22/19 16:42 01/22/19 16:42 01/22/19 16:42 01/22/19 16:42 - Physical Exam Comments: GENERAL: Awake, alert, and oriented to person/place/time, in no acute distress. HEAD: No signs of trauma, normocephalic, atraumatic _ EYES: PERRLA, EOMI, sclera anicteric, conjunctiva clear. ENT: Hearing grossly normal, nares patent, oropharynx clear without exudates. No uvular deviation. Moist mucosa. Poor dentition. NECK: Normal ROM, supple, no lymphadenopathy, JVD, or masses. LUNGS: Diffuse wheezes in bilateral upper and lower lung jaramillo, with crackles at bibasilar bases. HEART: Regular rate and rhythm, normal S1 and S2, no murmurs appreciated, peripheral pulses normal and equal bilaterally._ ABDOMEN: Soft, nontender, normoactive bowel sounds. No guarding, no rebound. No masses_ EXTREMITIES: Normal inspection, Normal range of motion. No clubbing or cyanosis. 2+ pitting edema in bilateral lower extremities. NEUROLOGICAL: Cranial nerves II through XII grossly intact. Normal speech, normal gait, no focal sensorimotor deficits _ SKIN: Warm, Dry, normal turgor, no rashes or lesions noted_ ED Treatment Course - LABORATORY CBC & Chemistry Diagram: 01/23/19 07:03 01/23/19 07:03 Medical Decision Making - Medical Decision Making 01/22/19 1700 88F with extensive PMH including HTN, HLD, COPD, CHF, a-fib, presenting with worsening shortness of breath. Admitted for pneumonia last week. DDx includes COPD exacerbation vs pneumonia vs CHF exacerbation. Will start sepsis work up and sepsis order set, CXR, EKG, BNP. Hold normal saline until further evaluation due to her hx of CHF and possible volume overload. 01/22/192014 Patient is a difficult access. Multiple attempts for peripheral IV access and US guided IV access by myself, the senior resident, and the attending. Unable to obtain access. A central line of the right IJ was successful in obtaining access and blood work. 01/22/19 2100 Labs show Hgb of 6.8, down from a baseline of 10.2. Plan to transfuse 2 units pRBCs. Abx started: Vancomycin 1500 mg and Levaquin 500 mg. 01/22/19 2130 SpO2 remains in the high 70s to 80s. Respiratory called. SpO2 in the low 90s after Bipap. *DC/Admit/Observation/Transfer Diagnosis at time of Disposition: SOB (shortness of breath) Anemia Qualifiers: Anemia type: unspecified type Qualified Code(s): D64.9 - Anemia, unspecified - Discharge Dispostion Condition at time of disposition: Guarded - Referrals - Patient Instructions - Post Discharge Activity
[2019-01-22] MEDS ORDERED: ALBUTEROL SO4 2.5/IPRATROPIUM 0.5 INH SOL 3 ML VIAL.NEB. NEB ONE ×2 (17:24→17:40)
[2019-01-22] MEDS ORDERED: VANCOMYCIN HCL 1,500 MG in DEXTROSE 5%-WATER - 500 ML IVPB ONE (17:39)
[2019-01-22] MEDS ORDERED: FUROSEMIDE 40 MG/4 ML INJECTABLE VIAL IVPUSH ONE (17:39)
[2019-01-22] MEDS ORDERED: AZITHROMYCIN IVPB 500 MG in DEXTROSE 5%-WATER - 250 ML IVPB ONE (17:43)
--- NOTE | 2019-01-22 18:25 | PDOC ---
Documentation entered by Leydi Pierre SCRIBE, acting as scribe for Guido Tapia MD. Guido Tapia MD: This documentation has been prepared by the Gabby otto Xhesika, SCRIBE, under my direction and personally reviewed by me in its entirety. I confirm that the documentation accurately reflects all work, treatment, procedures, and medical decision making performed by me. Attending Attestation - Resident Resident Name: Jonny Aguirre - ED Attending Attestation I have performed the following: I have examined & evaluated the patient, The case was reviewed & discussed with the resident, I agree w/resident's findings & plan, Exceptions are as noted - HPI HPI: 01/22/19 17:35 The patient is a 88 year old female with a significant PMH of Anemia, asthma, HTN, HLD, CHF, COPD (on 2-3L of O2 at home), afib, and CAD who presents to the emergency department with 1 week of shortness of breath, progressively getting worse last night. Patient notes she was seen here in the ED 2 weeks ago, was treated for pneumonia and discharged. However, pt states that she feels like her breathing has been getting worse since going home. Endorses fevers. Also reports increased leg swelling. Allergies: NKDA Past surgical history: hiatal hernia repair, b/l hip replacement PCP: Dr. Ira Cho - Physicial Exam PE: 01/22/19 17:36 GENERAL: Awake, alert, and fully oriented, in no acute distress. HEAD: No signs of trauma EYES: PERRLA, EOMI, sclera anicteric, conjunctiva clear ENT: Auricles normal inspection, hearing grossly normal, nares patent, oropharynx clear without exudates. Moist mucosa NECK: Nontender, no stepoffs, Normal ROM, supple, no lymphadenopathy, JVD, or masses LUNGS: + bibasilar Rales and rhonchi HEART: Regular rate and rhythm, normal S1 and S2, no murmurs, rubs or gallops ABDOMEN: Soft, nontender, normoactive bowel sounds. No guarding, no rebound. No masses EXTREMITIES: +2 PE BLE. No clubbing or cyanosis. No cords, erythema, or tenderness NEUROLOGICAL: Cranial nerves II through XII intact. 5/5 strength and sensation in all extremities, Normal speech, normal gait, normal cerebellar function SKIN: Warm, Dry, normal turgor, no rashes or lesions noted. - Critical Care Time Total Critical Care Time: 60 Critical Care Statement: The care of this patient involved high complexity decision making to prevent further life threatening deterioration of the patient 's condition and/or to evaluate & treat vital organ system(s) failure or risk of failure. - Medical Decision Making 01/22/19 18:27 88 F with SOB, fever, and BLE edema. Consistent with CHF exacerbation. ALso consider infectious process given fever. - Labs, trop, BNP - CXR - Diuresis - Abx
[2019-01-22] MEDS ORDERED: ACETAMINOPHEN 1000 MG/100 ML VIAL (NON FORMULARY) IVPB ONE (18:30)
[2019-01-22 20:18] LABS: MCH 28.8 pg (25.7-33.7); MEAN CELL VOLUME 92.8 fl (80-96); MEAN PLT VOLUME 9.8 fl (7.5-11.1); PLATELET COUNT 91 K/MM3 (134-434); RBC 2.36 M/mm3 (3.60-5.2); RDW 22.2 % (11.6-15.6); WHITE BLOOD COUNT 2.6 K/mm3 (4.0-10.0)
[2019-01-22 20:30] LABS: INR 2.93 (0.83-1.09); PROTHROMBIN TIME (PATIENT) 34.9 SEC (9.7-13.0)
[2019-01-22 20:33] LABS: ACTIVATED PTT 26.8 SECONDS (25.2-36.5)
[2019-01-22 20:36] LABS: HEMATOCRIT 21.9 % (32.4-45.2); HEMOGLOBIN 6.8 GM/dL (10.7-15.3)
[2019-01-22 20:46] LABS: ALBUMIN 1.8 g/dl (3.4-5.0); BILIRUBIN,TOTAL 0.2 mg/dL (0.2-1); BLOOD UREA NITROGEN 32.9 mg/dL (7-18); CALCIUM 7.6 mg/dL (8.5-10.1); CREATININE 1.7 mg/dL (0.55-1.3); N-TERMINAL BNP 3824.3 pg/ml (5-450); POTASSIUM 4.4 mmol/L (3.5-5.1); TOT PROT 4.3 g/dl (6.4-8.2)
--- NOTE | 2019-01-22 20:47 | PDOC ---
*Physical Exam - Vital Signs Last Vital Signs Temp Pulse Resp BP Pulse Ox 100.6 F H 80 24 H 115/59 L 82 L 01/22/19 16:42 01/22/19 16:42 01/22/19 16:42 01/22/19 16:42 01/22/19 19:11 ED Treatment Course - LABORATORY CBC & Chemistry Diagram: 01/23/19 02:45 01/22/19 20:00 - Medications Given in the ED: ED Medications Discontinued Medications Generic Name Dose Route Start Last Admin Trade Name Manisha PRN Reason Stop Dose Admin Albuterol/Ipratropium 1 amp 01/22/19 17:24 01/22/19 17:50 Duoneb - NEB 01/22/19 17:25 1 amp ONCE ONE Administration Medical Decision Making - Medical Decision Making 01/22/19 20:45 I received pt on signout. Pt had no IV access despite having been admitted by PMD. We placed EJ in the left neck 2x but each time line got dislodged. After labs were sent. Line placed in left antecubital with sono; also dislodged. Multiple attempts in the previous 3 hrs since her arrival. so the resident and I placed an IJ on the right side. We can now treat with IV abx and ofirmev 01/22/19 20:50 Pt's hb dropped from 10 to 6.8 since the last time she was here. 01/22/19 22:[address] Cullen, who is cash applications manager for Dr. Cho's grp. He told me that pt was started on a trial of methimazole in the recent past. He thinks pt may have some bone marrow suppression. Given her SOB and anemia and rapid afib he wants her in the ICU 01/22/19 22:40 ICU has been notified. 01/23/19 06:07 *DC/Admit/Observation/Transfer Diagnosis at time of Disposition: Anemia, SOB (shortness of breath) - Discharge Dispostion Condition at time of disposition: Guarded Decision to Admit order: Yes - Referrals - Patient Instructions - Post Discharge Activity
[2019-01-22] MEDS ORDERED: ACETAMINOPHEN INJECTION 100 ML IVPB ONE (21:11)
[2019-01-22] MEDS ORDERED: VANCOMYCIN 1 GRAM (PRE-DOCKED) 1,000 MG/250 ML BAG IVPB ONE (21:12)
[2019-01-22] MEDS ORDERED: FUROSEMIDE 40 MG/4 ML INJECTABLE VIAL ONE (21:13)
[2019-01-22 21:32] LABS: ANISOCYTOSIS 3+; CORRECTED WBC 2.24 K/mm3; MACROCYTOSIS 1+; OVALOCYTE 1+; PLATELET ESTIMATE DECREASED
[2019-01-22] MEDS ORDERED: traMADol HCL 50 MG TABLET PO PRN (21:35)
[2019-01-22] MEDS ORDERED: ACETAMINOPHEN 325 MG TABLET (FP) PO PRN (21:35)
[2019-01-22] MEDS ORDERED: ONDANSETRON 4 MG TABLET PO PRN (21:35)
[2019-01-22] MEDS ORDERED: PANTOPRAZOLE SODIUM 40 MG VIAL IVPUSH ONE (21:42)
--- NOTE | 2019-01-22 21:43 | HP ---
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, recently discharged after a prolonged complicated hospitalization course (from 12/26/2018 to 2018 treated for COPD excaerbation, Hypoxia, stidor, toxic Goiter and CHF exacerbation) patient was Dc on Po Prednisone and abx with BIPAP at night patiet was evaluted for toxic Goiter on Amiodarone, amiodarione was stopped and patient was put on methimazole, today transferred back from [place] with c/o SOB and Hypoxi despite O2 inhalation and treatment, in the ED Low O2 sat Low garde fever was notes=d lab shows anemia (Hb dropped from 10 on 01/14 to 6.8 today no obvious bleeding but decrese in TWBC and Gradualy worsening thrombocytopenia, I examined the patient in Ed patient daughter Ms Pisano was present c/o feeling weak and SOB denies fever, chills, abd pain dysuria , throat pain, nausea, vomiting or diarrhea. History Source: Patient, Family Member - Past Medical History Cardiovascular: Yes: CAD, HTN, Hyperlipdemia Pulmonary: Yes: COPD Gastrointestinal: Yes: Diverticulitis, Diverticulosis, Other (ischemic colitis, h/o colon polyps) - Past Surgical History Past Surgical History: Yes: None, Appendectomy, Colectomy (partial colectomy for perforation from ? diverticulitis/ischemic colitis), Hysterectomy (JW/BSO) - Smoking History Smoking history: Never smoked Have you smoked in the past 12 months: No Aproximately how many cigarettes per day: 0 If you are a former smoker, when did you quit?: many years - Alcohol/Substance Use Hx Alcohol Use: No History of Substance Use: reports: None - Social History ADL: Family Assistance History of Recent Travel: No Home Medications - Allergies Allergies/Adverse Reactions: Allergies Allergy/AdvReac Type Severity Reaction Status Date / Time Penicillins Allergy Verified 01/22/19 16:41 procaine Allergy Verified 01/22/19 16:41 - Home Medications Home Medications: Ambulatory Orders Acetaminophen [Tylenol] 650 mg PO QID PRN 12/28/18 Ascorbic Acid [Vitamin C] 500 mg PO DAILY 12/28/18 Aspirin 81 mg PO DAILY 12/28/18 Metoprolol Succinate [Toprol Xl] 50 mg PO HS 12/28/18 Ondansetron HCl [Zofran] 4 mg PO TID PRN 12/28/18 Salmeterol/Fluticasone [Advair 100Mcg/50Mcg -] 1 inh PO BID 12/28/18 Tramadol HCl 50 mg PO BID PRN 12/28/18 Albuterol 2.5/Ipratropium 0.5 [Duoneb -] 1 amp NEB RQ4H amp 01/12/19 Allopurinol [Zyloprim -] 100 mg PO DAILY tablet 01/12/19 Chlorhexidine Gluconate [Hibiclens For Decolonization -] 1 applic TP HS bottle 01/12/19 Furosemide [Lasix -] 40 mg PO DAILY tablet 01/12/19 Gabapentin [Neurontin -] 100 mg PO TID capsule 01/12/19 Methimazole [Tapazole -] 10 mg PO TID tablet 01/12/19 Nystatin Powder [Nystop Powder -] 1 applic TP DAILY applic 01/12/19 Ranitidine [Zantac -] 150 mg PO DAILY tablet 01/12/19 traMADol HCL [Ultram -] 50 mg PO Q8H PRN #30 tablet MDD 2 01/12/19 Diltiazem Cd [Cardizem Cd -] 180 mg PO DAILY cap.cd.24h 01/13/19 predniSONE [Deltasone -] 40 mg PO DAILY tablet 01/13/19 Lanolin Alcohol/Mo/W.pet/[place] [Eucerin Creme] 113 gm TP BID 01/22/19 Polyethylene Glycol 3350 [Miralax (For Daily Use) -] 17 gm PO DAILY 01/22/19 Silver Sulfadiazine 1% Top Cr [Silvadene -] 1 applic TP DAILY 01/22/19 Warfarin Na [Coumadin] 3 mg PO HS 01/22/19 Family Disease History - Family Disease History Family Disease History: CA: Son (colon ca) Physical Examination Vital Signs: Vital Signs Temperature 100.6 F H 01/22/19 16:42 Pulse Rate 80 01/22/19 16:42 Respiratory Rate 24 H 01/22/19 16:42 Blood Pressure 115/59 L 01/22/19 16:42 O2 Sat by Pulse Oximetry (%) 82 L 01/22/19 19:11 Elderly sick looking F looks edematous, not in distress HEENT: facial puffiness anemia, no external trauma NECK; No JVd No BrUit CHEST: Congested equal AE no wheezes ABD: Obese, non tender EXT: Chu atous with multiple echymoses 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 DERM; Multiple echymoses Scral Decubitus. Labs: CBC, BMP 01/22/19 20:00 01/22/19 20:00 Imaging - Results X-ray: Report Reviewed (Left LL infiltrates (persistent)) Problem List - Problems (1) Symptomatic anemia Assessment/Plan: Type and Screen , 2 unit PRBC evaluate source of bleeding, confirmed with NH no H/O Melena F/U Stool occult blood, IV PPI, if Occult blood + or Melena need GI consult, , considering pancytopenia possibility of Bone marrow suppression due to Methimazole will DC F/U Thyroid profile. serial H/H Code(s): D64.9 - ANEMIA, UNSPECIFIED (2) Respiratory failure Assessment/Plan: Due to CHF wxacerbation and sever anemia f/u clinical course Cardiology consult , received IV Lasix F/U BMP Code(s): J96.90 - RESPIRATORY FAILURE, UNSP, UNSP W HYPOXIA OR HYPERCAPNIA (3) CHF (NYHA class II, ACC/AHA stage C) Assessment/Plan: Cont current management F/U cardiology recommondation IV lasix 40mg recived in ED Code(s): I50.9 - HEART FAILURE, UNSPECIFIED (4) CKD (chronic kidney disease) Assessment/Plan: Stable F/U BMP Code(s): N18.9 - CHRONIC KIDNEY DISEASE, UNSPECIFIED Qualifiers: Chronic kidney disease stage: stage 4 (severe) Qualified Code(s): N18.4 - Chronic kidney disease, stage 4 (severe) (5) Persistent atrial fibrillation Assessment/Plan: Cont Diltizem and B Blockers F/U clinical course Pro BNP is at base line, cardiology consult. Hold AC for sever anemia of unknown sourse Code(s): I48.1 - PERSISTENT ATRIAL FIBRILLATION (6) COPD (chronic obstructive pulmonary disease) Assessment/Plan: ont Advair and Duoneb with ABX as per ID persistent infiltrates les likely Pneumonia F/U Procal Code(s): J44.9 - CHRONIC OBSTRUCTIVE PULMONARY DISEASE, UNSPECIFIED Qualifiers: COPD type: unspecified COPD Qualified Code(s): J44.9 - Chronic obstructive pulmonary disease, unspecified (7) Thyromegaly Assessment/Plan: SDiagnosed toxic goiter with retrosternal extention partial tracheal obstruction in the past Ct chest with Neck extention, Hold Methimazole for possible Bone Marrow suppression F/U Thyroid profile and Endo input Code(s): E01.0 - IODINE-DEFICIENCY RELATED DIFFUSE (ENDEMIC) GOITER (8) Malnutrition Assessment/Plan: Low akbuamin F/U Pre albumin and Nutrition consult Code(s): E46 - UNSPECIFIED PROTEIN-CALORIE MALNUTRITION Qualifiers: Malnutrition type: protein-calorie malnutrition (9) Pressure ulcer Assessment/Plan: Gibbons catheter and wound care. Code(s): L89.90 - PRESSURE ULCER OF UNSPECIFIED SITE, UNSPECIFIED STAGE
[2019-01-22] MEDS ORDERED: SODIUM CHLORIDE 500 ML IV STA (21:54)
[2019-01-22] MEDS ORDERED: METHIMAZOLE 10 MG TABLET (FP) PO SCH (22:00)
[2019-01-22] MEDS ORDERED: PANTOPRAZOLE SODIUM 40 MG VIAL ONE (22:11)
[2019-01-22 22:53] LABS: ARTERIAL BLD GAS O2 SATURATION 68.4 % (95-98); ARTERIAL BLOOD GAS BASE EXCESS 2.8 meq/l (-2-2); ARTERIAL BLOOD GAS PCO2 49.3 mmHg (35-45); ARTERIAL BLOOD GAS pH 7.37 (7.35-7.45)
[2019-01-22 22:55] LABS: ALLENS TEST POSITIVE
[2019-01-22 22:56] LABS: ARTERIAL BLOOD GAS PO2 38.6 mmHg (80-105)
--- NOTE | 2019-01-22 23:08 | CONSULT ---
Consultation: REQUESTING PROVIDER: Dr. Reid CONSULT REQUEST: We have been asked to medically evaluate this patient for hypoxic hypercapneic respiratory failure and possible sepsis 2/2 ulcers vs PNA vs UTI. HISTORY OF PRESENT ILLNESS: Judy Machado is an 88 year old female with a past medical history of anemia, asthma, HTN, HLD, CHF, COPD, afib (s/p ablation and on coumadin), CAD, CKD stage 4, toxic multinodular goiter, who presented to the ED from senior living due to increasing shortness of breath. Patient is on oxygen at the senior living but had been requiring increased amounts of oxygen. She stated that she feels that her breathing has gotten worse. Endorsed fevers and increased swelling of her extremities. Stated that she had increased amounts of pain in her groin where she has ulcers present and is exacerbated when she urinates. Denied chest pain, palpitations, dizziness, nausea, vomiting, abd pain. Was recently hospitalized for a COPD exacerbation and was found to have tracheal compression possibly secondary to a enlarged thyroid goiter versus a tortous inomminate artery. In the ED, the patient was noted to have fever elevated at 100.6, increased respiratory rate, desaturation in the 80s on NC, pancytopenia (WBC 2.6, Hgb 6.8 , plts 91), elevated INR 2.93. REVIEW OF SYSTEMS: CONSTITUTIONAL: fever, generalized weakness Absent: chills, diaphoresis, malaise, loss of appetite, weight change HEENT: Absent: rhinorrhea, nasal congestion, throat pain, throat swelling, difficulty swallowing, mouth swelling, ear pain, eye pain, visual changes CARDIOVASCULAR: peripheral edema Absent: chest pain, syncope, palpitations, irregular heart rate, lightheadedness , RESPIRATORY: shortness of breath Absent: cough, dyspnea with exertion, orthopnea, wheezing, stridor, hemoptysis GASTROINTESTINAL: Absent: abdominal pain, abdominal distension, nausea, vomiting, diarrhea, constipation, melena, hematochezia GENITOURINARY: genital pain Absent: dysuria, frequency, urgency, hesitancy, hematuria, flank pain, MUSCULOSKELETAL: back pain Absent: myalgia, arthralgia, joint swelling, neck pain SKIN: Absent: rash, itching, pallor HEMATOLOGIC/IMMUNOLOGIC: Absent: easy bleeding, easy bruising, lymphadenopathy, frequent infections ENDOCRINE: Absent: unexplained weight gain, unexplained weight loss, heat intolerance, cold intolerance NEUROLOGIC: Absent: headache, focal weakness or paresthesias, dizziness, unsteady gait, seizure, mental status changes, bladder or bowel incontinence PSYCHIATRIC: Absent: anxiety, depression, suicidal or homicidal ideation, hallucinations. PHYSICAL EXAMINATION Vital Signs - 24 hr 01/22/19 01/22/19 16:42 19:11 Temperature 100.6 F H Pulse Rate 80 Respiratory 24 H Rate Blood Pressure 115/59 L O2 Sat by Pulse 82 L 82 L Oximetry (%) GENERAL: Awake, alert, intermittent lethargy in moderate acute distress secondary to pain. HEAD: Normal with no signs of trauma. NECK: Normal range of motion, supple without lymphadenopathy, JVD, or masses. LUNGS: On BiPAP, Breath sounds equal, moderate coarse breath sounds heard throughout. HEART: Tachycardic rate and irregular rhythm, normal S1 and S2 without murmur, rub. ABDOMEN: Soft, nontender, not distended, normoactive bowel sounds, no guarding, no rebound, no masses. MUSCULOSKELETAL: Normal range of motion at all joints. No bony deformities or tenderness. No CVA tenderness. UPPER EXTREMITIES: 1+ pulses, warm, well-perfused. No cyanosis. No clubbing. Cap refill <2 seconds. 2+ peripheral edema. LOWER EXTREMITIES: 1+ pulses, warm, well-perfused. No calf tenderness. 3+ peripheral edema. NEUROLOGICAL: Cranial nerves II-XII intact. Normal speech. Decreased muscle strength bilaterally, upper and lower extremities PSYCHIATRIC: Cooperative. Good eye contact. Upset mood. SKIN: Warm, dry, decreased turgor, no rashes or lesions noted. Laboratory Results - last 24 hr 01/22/19 01/22/19 01/22/19 20:00 20:00 20:00 WBC 2.6 L Corrected WBC (auto) 2.24 RBC 2.36 L Hgb 6.8 L* Hct 21.9 L D MCV 92.8 MCH 28.8 MCHC 31.0 L RDW 22.2 H Plt Count 91 L MPV 9.8 Absolute Neuts (auto) 1.6 Neutrophils % No Result Required. Neutrophils % (Manual) 52.6 Band Neutrophils % 5.2 Lymphocytes % No Result Required. Lymphocytes % (Manual) 33.0 D Monocytes % (Manual) 3 L D Eosinophils % (Manual) 3.1 D Basophils % (Manual) 1.0 D Myelocytes % (Man) 0 Promyelocytes % (Man) 0 Blast Cells % (Manual) 0 Nucleated RBC % 16 H* Metamyelocytes 0 Hypochromia 0 Platelet Estimate Decreased Poikilocytosis 1+ Basophilic Stippling 1+ Anisocytosis 3+ Microcytosis 2+ Macrocytosis 1+ Ovalocytes 1+ PT with INR 34.90 H INR 2.93 H PTT (Actin FS) 26.8 Anticoagulation Therapy Puncture Site ABG pH ABG pCO2 at Pt Temp ABG pO2 at Pt Temp ABG HCO3 ABG O2 Sat (Measured) ABG O2 Content ABG Base Excess Remigio Test O2 Delivery Device Oxygen Flow Rate Vent Mode Vent Rate Mechanical Rate Pressure Support Vent Sodium 145 Potassium 4.4 Chloride 110 H Carbon Dioxide 30 Anion Gap 5 L BUN 32.9 H Creatinine 1.7 H Est GFR (CKD-EPI)AfAm 30.45 Est GFR (CKD-EPI)NonAf 26.28 Random Glucose 115 H Lactic Acid Calcium 7.6 L Total Bilirubin 0.2 AST 20 ALT 30 Alkaline Phosphatase 49 B-Natriuretic Peptide 3824.3 H Total Protein 4.3 L Albumin 1.8 L Blood Type Antibody Screen Crossmatch 01/22/19 01/22/19 01/22/19 20:00 20:59 22:35 WBC Corrected WBC (auto) RBC Hgb Hct MCV MCH MCHC RDW Plt Count MPV Absolute Neuts (auto) Neutrophils % Neutrophils % (Manual) Band Neutrophils % Lymphocytes % Lymphocytes % (Manual) Monocytes % (Manual) Eosinophils % (Manual) Basophils % (Manual) Myelocytes % (Man) Promyelocytes % (Man) Blast Cells % (Manual) Nucleated RBC % Metamyelocytes Hypochromia Platelet Estimate Poikilocytosis Basophilic Stippling Anisocytosis Microcytosis Macrocytosis Ovalocytes PT with INR INR PTT (Actin FS) Anticoagulation Therapy No Result Required. Puncture Site Right brachial ABG pH 7.37 ABG pCO2 at Pt Temp 49.3 H ABG pO2 at Pt Temp 38.6 L* ABG HCO3 27.7 H ABG O2 Sat (Measured) 68.4 L ABG O2 Content 4.5 L* ABG Base Excess 2.8 H Remigio Test Positive O2 Delivery Device Bipap Oxygen Flow Rate 100 Vent Mode S/t Vent Rate 14 Mechanical Rate No Result Required. Pressure Support Vent 10/5 Sodium Potassium Chloride Carbon Dioxide Anion Gap BUN Creatinine Est GFR (CKD-EPI)AfAm Est GFR (CKD-EPI)NonAf Random Glucose Lactic Acid 1.7 Calcium Total Bilirubin AST ALT Alkaline Phosphatase B-Natriuretic Peptide Total Protein Albumin Blood Type O POSITIVE Antibody Screen Negative Crossmatch See Detail Active Medications Generic Name Dose Route Start Last Admin Trade Name Freq PRN Reason Stop Dose Admin Acetaminophen 650 mg 01/22/19 21:35 Tylenol - PO QID PRN PAIN Albuterol/Ipratropium 1 amp 01/23/19 00:00 Duoneb - NEB RQ4H MALIK Chlorhexidine Gluconate 1 applic 01/22/19 22:00 Hibiclens For Decolonization - TP HS MALIK Diltiazem HCl 180 mg 01/23/19 10:00 Cardizem Cd - PO DAILY MALIK Furosemide 40 mg 01/23/19 10:00 Lasix - PO DAILY MALIK Gabapentin 100 mg 01/22/19 22:00 Neurontin - PO TID MALIK Metoprolol Succinate 50 mg 01/22/19 22:00 Toprol Xl - PO HS MALIK Multi-Ingredient Lotion 1 applic 01/22/19 22:00 Eucerin (Small Jar) - TP BID MALIK Nystatin 1 applic 01/23/19 10:00 Nystop Powder - TP DAILY MALIK Ondansetron HCl 4 mg 01/22/19 21:35 Zofran - PO TID PRN NAUSEA Polyethylene Glycol 17 gm 01/23/19 10:00 Miralax (For Daily Use) - PO DAILY MALIK Fluticasone/Salmeterol 1 puff 01/22/19 22:00 Advair 100mcg/50mcg - IH BID MALIK Tramadol HCl 50 mg 01/22/19 21:35 Ultram - PO Q8H PRN PAIN LEVEL 6-10 ASSESSMENT/PLAN: Judy Machado is an 88 year old female with a past medical history of anemia, asthma, HTN, HLD, CHF, COPD, afib (s/p ablation and on coumadin), CAD, CKD stage 4, toxic multinodular goiter admitted to the ICU secondary to sepsis from infected groin ulcer resulting in hypoxic respiratory failure in the setting of the patient's COPD, asthma, and tracheal compression. Sepsis secondary to groin/labial/sacral ulcers Hypoxic Hypercapneic Respiratory Failure Pancytopenia Anemia requiring transfusion Atrial Fibrillation HTN HLD CHF CKD NEUROLOGIC - intermittent lethargy - likely decreased mental state likely from septic state - hold tramadol 50 q8h prn pain - gabapentin 100mg tid CARDIOLOGY - EKG showing afib with RVR, unchanged from previous EKG - tachycardia noted on monitor, continue to monitor and treat if HR >120 - continue home diltiazem 180mg daily - continue home Lasix 40mg daily - continue home Toprol 50mg qhs - CVP monitoring for fluid status - maintain MAP >65 RESPIRATORY - on BiPAP - ABG showing pH 7.37, CO2 49.3, O2 38.6, HCO3 30, chronic respiratory acidosis secondary to COPD (CO2 retention) compensated metabolically - continue to monitor ABG while patient on BiPAP for resolution of acidosis - 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, monitor for stridor - Advair 1 puff bid - Duoneb q4h - CXR showing persistent LLL infiltrates, pulmonary congestion - CT chest showing compression of trachea from thyroid and innominate artery, small bilateral effusions, LLL infiltrate as per my read - Imaging urology surgeon noting likely bilateral pneumonia, bibasilar bronchiectasis, tracheamalacia, large thyroid mass RENAL - CRE 1.7, at baseline - monitor urine output GASTROINTESTINAL - zofran as needed for nausea - stool guiac for bleeding assessment GENITOURINARY - barroso in - multiple stage 2/3 ulcers on the thigh, labia, sacrum - silver sulfadiazine cream to affected areas INFECTIOUS DISEASE - on arrival fever 100.6, since remained afebrile - given Levaquin and vancomycin in ED - consider coverage with vancomycin for groin ulcer, gram positive skin neymar - consider coverage for gram negatives in urinary tract - possible coverage for HCAP and UTI - Dr. Rinaldi consulted - blood cxs pending - urine cxs - sputum cultures - urine legionella and strep pneumo ENDOCRINE - thyroid studies, f/u HEMATOLOGY - pancytopenia - Hgb 6.8 on admission, down from 10.2 on 01/14 - repeat 5.7 - give 2 units of PRBC, check CBC after units - transfusion goals of Hgb 7, continue to monitor counts - stool guiac ordered - iron studies - haptoglobin, reticulocytes, LDH, fibrinogen ordered - INR 2.93, continue to monitor INR - hold warfarin in the setting of anemia MUSCULOSKELETAL - no acute issues PSYCHIATRY - no acute issues F/E/N - received bolus in ED, receiving blood, holding further fluids in setting of volume overload - continue to monitor electrolytes and replete as necessary - NPO except meds while on BiPAP LINES - RIJ inserted 01/23 in ED PROPHYLAXIS - holding chemical prophylaxis in the setting of anemia CODE - full code DISPO - We will continue to follow the patient in the ICU BRUNO CHASE DO - PGY-1 INTERNAL MEDICINE Thank you for this consultative opportunity. Problem List - Problems (1) Respiratory failure Code(s): J96.90 - RESPIRATORY FAILURE, UNSP, UNSP W HYPOXIA OR HYPERCAPNIA (2) Symptomatic anemia Code(s): D64.9 - ANEMIA, UNSPECIFIED (3) Altered mental status Code(s): R41.82 - ALTERED MENTAL STATUS, UNSPECIFIED (4) Atrial fibrillation with RVR Code(s): I48.91 - UNSPECIFIED ATRIAL FIBRILLATION (5) CKD stage 4 secondary to hypertension Code(s): I12.9 - HYPERTENSIVE CHRONIC KIDNEY DISEASE W STG 1-4/UNSP CHR KDNY; N18.4 - CHRONIC KIDNEY DISEASE, STAGE 4 (SEVERE) (6) COPD (chronic obstructive pulmonary disease) Code(s): J44.9 - CHRONIC OBSTRUCTIVE PULMONARY DISEASE, UNSPECIFIED Qualifiers: COPD type: unspecified COPD Qualified Code(s): J44.9 - Chronic obstructive pulmonary disease, unspecified (7) SOB (shortness of breath) Code(s): R06.02 - SHORTNESS OF BREATH Visit type - Emergency Visit Emergency Visit: Yes ED Registration Date: 01/22/19 Care time: The patient presented to the Emergency Department on the above date and was hospitalized for further evaluation of their emergent condition. - New Patient This patient is new to me today: Yes Date on this admission: 01/23/19 - Critical Care Critical Care patient: Yes Total Critical Care Time (in minutes): 35 Critical Care Statement: The care of this patient involved high complexity decision making to prevent further life threatening deterioration of the patient 's condition and/or to evaluate & treat vital organ system(s) failure or risk of failure.
[2019-01-23] MEDS: ALBUTEROL SO4 2.5/IPRATROPIUM 0.5 INH SOL 3 ML VIAL.NEB. NEB SCH ×7 (00:30→20:30)
[2019-01-23] MEDS ORDERED: ACETAMINOPHEN 1000 MG/100 ML VIAL (NON FORMULARY) IVPB ONE (01:01)
[2019-01-23] MEDS: CHLORHEXIDINE GLUCONATE 4% CLEANSER FOR DECOLONIZATION TP SCH ×2 (02:18→21:30)
[2019-01-23] MEDS ORDERED: SODIUM CHLORIDE 0.9% 500 ML INFUS.BAG IV ONE (03:11)
[2019-01-23] MEDS: GABAPENTIN 100 MG CAPSULE (FP) PO SCH ×4 (03:29→21:31)
[2019-01-23] MEDS: FLUTICASONE/SALMETEROL 100 MCG/50 MCG DISKUS IH SCH ×3 (03:29→21:30)
[2019-01-23] MEDS: MINERAL OIL/PETROLAT/WATER TOPICAL CREAM 113 GM JAR TP SCH ×3 (03:29→21:30)
[2019-01-23 03:44] LABS: MCHC 31.1 g/dl (32.0-36.0); WHITE BLOOD COUNT 2.2 K/mm3 (4.0-10.0)
[2019-01-23 03:48] LABS: HYALINE CASTS 10 /lpf (0-8); URINE APPEARANCE CLOUDY; URINE BACTERIA 946.2 /hpf (NEGATIVE); URINE BILIRUBIN NEGATIVE (NEGATIVE); URINE COLOR YELLOW; URINE GLUCOSE (UA) NEGATIVE (NEGATIVE); URINE KETONE NEGATIVE (NEGATIVE); URINE LEUK ESTERASE 3+ (NEGATIVE); URINE NITRITE NEGATIVE (NEGATIVE); URINE PROTEIN NEGATIVE (NEGATIVE); URINE RBC 2 /hpf (0-4); URINE UROBILINOGEN 0.2 mg/dL (0.2-1.0); URINE WBC 276 /hpf (0-5)
[2019-01-23 03:52] LABS: HEMATOCRIT 18.4 % (32.4-45.2); MCH 28.5 pg (25.7-33.7); MEAN CELL VOLUME 91.9 fl (80-96); MEAN PLT VOLUME 9.9 fl (7.5-11.1); PLATELET COUNT 76 K/MM3 (134-434)
[2019-01-23 03:59] LABS: HEMOGLOBIN 5.7 GM/dL (10.7-15.3)
[2019-01-23 06:16] LABS: ARTERIAL BLD GAS O2 SATURATION 99.6 % (95-98); ARTERIAL BLOOD GAS BASE EXCESS 2.5 meq/l (-2-2); ARTERIAL BLOOD GAS PCO2 46.4 mmHg (35-45); ARTERIAL BLOOD GAS PO2 242 mmHg (80-105); ARTERIAL BLOOD GAS pH 7.39 (7.35-7.45)
[2019-01-23 06:17] LABS: ALLENS TEST POSITIVE
[2019-01-23 07:39] LABS: BASO % 0.3 % (0-2.0); EOS % 2.9 % (0-4.5); LYMPH % 30.8 % (8-40); MCH 29.6 pg (25.7-33.7); MEAN CELL VOLUME 92.5 fl (80-96); MEAN PLT VOLUME 9.1 fl (7.5-11.1); MONO % 5.7 % (3.8-10.2); NEUT % 60.3 % (42.8-82.8); PLATELET COUNT 74 K/MM3 (134-434); RBC 2.38 M/mm3 (3.60-5.2); RDW 19.9 % (11.6-15.6); WHITE BLOOD COUNT 2.6 K/mm3 (4.0-10.0)
[2019-01-23 07:50] LABS: INR 3.24 (0.83-1.09); PROTHROMBIN TIME (PATIENT) 38.7 SEC (9.7-13.0)
[2019-01-23 08:00] LABS: MAGNESIUM 2.2 mg/dL (1.8-2.4); PHOSPHOROUS 3.3 mg/dL (2.5-4.9)
[2019-01-23] MEDS ORDERED: LACTATED RINGERS SOLUTION 1,000 ML/1,000 ML INFUS.BAG IV SCH (08:00)
[2019-01-23 08:12] LABS: ALBUMIN 1.6 g/dl (3.4-5.0); BILIRUBIN,TOTAL 0.4 mg/dL (0.2-1); BLOOD UREA NITROGEN 31.8 mg/dL (7-18); CALCIUM 7.1 mg/dL (8.5-10.1); CREATININE 1.8 mg/dL (0.55-1.3); POTASSIUM 4.3 mmol/L (3.5-5.1); TOT PROT 3.8 g/dl (6.4-8.2)
[2019-01-23] MEDS ORDERED: PT OWN MED DRAWER 7, Y5N ONE ×3 (08:40→18:20)
[2019-01-23] MEDS: SILVER SULFADIAZINE 1% TOP CREAM 400 GM JAR TP SCH ×2 (09:28→21:31)
[2019-01-23] MEDS: FUROSEMIDE 40 MG TABLET (FP) PO SCH (09:28)
[2019-01-23] MEDS: POLYETHYLENE GLYCOL 3350 119 GM BTL PO SCH (09:28)
[2019-01-23] MEDS ORDERED: ALLOPURINOL 100 MG TABLET (FP) PO SCH (10:00)
--- NOTE | 2019-01-23 10:04 | PN ---
Progress Note, Physician Chief Complaint: No new complaints - Current Medication List Current Medications: Active Medications Acetaminophen (Tylenol -) 650 mg PO QID PRN PRN Reason: PAIN Albuterol/Ipratropium (Duoneb -) 1 amp NEB RQ4H [facility] Last Admin: 01/23/19 07:09 Dose: 1 amp Chlorhexidine Gluconate (Hibiclens For Decolonization -) 1 applic TP [facility] Diltiazem HCl (Cardizem Cd -) 180 mg PO DAILY [facility] Last Admin: 01/23/19 09:28 Dose: 180 mg Furosemide (Lasix -) 40 mg PO DAILY [facility] Last Admin: 01/23/19 09:28 Dose: 40 mg Gabapentin (Neurontin -) 100 mg PO TID [facility] Last Admin: 01/23/19 06:25 Dose: 100 mg Levofloxacin (Levaquin 250 Mg Premixed Ivpb -) 250 mg in 50 mls @ 100 mls/hr IVPB DAILY [facility]; Protocol Metoprolol Succinate (Toprol Xl -) 50 mg PO [facility] Last Admin: 01/23/19 03:29 Dose: Not Given Multi-Ingredient Lotion (Eucerin (Small Jar) -) 1 applic TP BID [facility] Last Admin: 01/23/19 03:29 Dose: Not Given Nystatin (Nystop Powder -) 1 applic TP DAILY [facility] Ondansetron HCl (Zofran -) 4 mg PO TID PRN PRN Reason: NAUSEA Polyethylene Glycol (Miralax (For Daily Use) -) 17 gm PO DAILY [facility] Last Admin: 01/23/19 09:28 Dose: 17 grams Fluticasone/Salmeterol (Advair 100mcg/50mcg -) 1 puff IH BID [facility] Last Admin: 01/23/19 03:29 Dose: Not Given Silver Sulfadiazine (Silvadene -) 1 applic TP BID [facility] Last Admin: 01/23/19 09:28 Dose: 1 applic Tramadol HCl (Ultram -) 50 mg PO Q8H PRN PRN Reason: PAIN LEVEL 6-10 Warfarin Sodium (Coumadin -) 3 mg PO DAILY@1800 [facility] - Objective Vital Signs: Vital Signs Temperature 97.4 F L 01/23/19 08:00 Pulse Rate 99 H 01/23/19 08:00 Respiratory Rate 17 01/23/19 08:00 Blood Pressure 95/71 01/23/19 08:00 O2 Sat by Pulse Oximetry (%) 98 01/23/19 07:09 Elderly sick looking F looks edematous, not in distress HEENT: facial puffiness anemia, no external trauma NECK; No JVd No BrUit CHEST: Congested equal AE no wheezes ABD: Obese, non tender EXT: Chu atous with multiple echymoses ADAPTIVE PHYSICAL EDUCATOR: drowsy but arousanable. DERM; Multiple echymoses Scral Decubitus. Labs: CBC, BMP 01/23/19 07:03 01/23/19 07:03 INR, PTT INR 2.93 (0.83-1.09) H 01/22/19 20:00 Fibrinogen 474.0 mg/dL (238-498) 01/23/19 07:03 Problem List - Problems (1) Symptomatic anemia Assessment/Plan: ecived multile trasfusion still dropping H/H elevated LDH possibility of hemolytic process will discuss with hematology, no schitocytes renal functions ae stable other possibality but considering pancytopenia possibility of Bone marrow suppression due to Methimazole will DC F/U Thyroid profile. serial H/H Code(s): D64.9 - ANEMIA, UNSPECIFIED (2) Respiratory failure Assessment/Plan: Due to CHF exacerbation and sever anemia f/u clinical course Cardiology consult , received IV Lasix F/U BMP Code(s): J96.90 - RESPIRATORY FAILURE, UNSP, UNSP W HYPOXIA OR HYPERCAPNIA (3) CHF (NYHA class II, ACC/AHA stage C) Assessment/Plan: Cont current management F/U cardiology recommondation IV lasix 40mg recived in ED Code(s): I50.9 - HEART FAILURE, UNSPECIFIED (4) CKD (chronic kidney disease) Assessment/Plan: Stable F/U BMP Code(s): N18.9 - CHRONIC KIDNEY DISEASE, UNSPECIFIED Qualifiers: Chronic kidney disease stage: stage 4 (severe) Qualified Code(s): N18.4 - Chronic kidney disease, stage 4 (severe) (5) Persistent atrial fibrillation Assessment/Plan: Cont Diltizem and B Blockers F/U clinical course Pro BNP is at base line, cardiology consult. off coumadin Code(s): I48.1 - PERSISTENT ATRIAL FIBRILLATION (6) COPD (chronic obstructive pulmonary disease) Assessment/Plan: ont Advair and Duoneb with ABX as per ID persistent infiltrates les likely Pneumonia F/U Procal Code(s): J44.9 - CHRONIC OBSTRUCTIVE PULMONARY DISEASE, UNSPECIFIED Qualifiers: COPD type: unspecified COPD Qualified Code(s): J44.9 - Chronic obstructive pulmonary disease, unspecified (7) Thyromegaly Assessment/Plan: TSH supressed off Methimazole T4 ormal will f/u Endo recommendations Code(s): E01.0 - IODINE-DEFICIENCY RELATED DIFFUSE (ENDEMIC) GOITER (8) Malnutrition Assessment/Plan: Low akbuamin F/U Pre albumin and Nutrition consult Code(s): E46 - UNSPECIFIED PROTEIN-CALORIE MALNUTRITION Qualifiers: Malnutrition type: protein-calorie malnutrition (9) Pressure ulcer Assessment/Plan: Gibbons catheter and wound care. Code(s): L89.90 - PRESSURE ULCER OF UNSPECIFIED SITE, UNSPECIFIED STAGE (10) Pancytopenia Assessment/Plan: Probaly due to methimazole will observe. Code(s): D61.818 - OTHER PANCYTOPENIA
[2019-01-23] MEDS: NYSTATIN POWDER 100,000 UNITS/GM - 15 GM TOPICAL POWDER TP SCH (10:31)
--- NOTE | 2019-01-23 10:44 | PN ---
Physical Exam: SUBJECTIVE: Patient seen and examined at bedside. Reports that her shortness of breath has improved on the Bipap, would like to try lower lever of oxygen. Otherwise denies chest pain, nausea, vomiting, diarrhea, fevers, chills, dysuria or bleeding. OBJECTIVE: Vital Signs Period Temp Pulse Resp BP Sys/Rodriguez Pulse Ox Last 24 Hr 97.4 F-100.6 F 80-114 9-24 60-115/41-72 82-99 GENERAL: A&Ox3, no acute distress EYES: PERRLA, EOMI ENT: Dry mucus membranes NECK: No JVD LUNGS: CTA, no wheezes, no stridor noted HEART: tachycardic, no murmurs ABDOMEN: Obese, Soft, nontender, BS present MUSCULOSKELETAL: No CVA Tenderness, stage II ulcers noted on sacrum and labia EXTREMITIES: 2+ pulses, 1+ edema bilaterally NEUROLOGICAL: Cranial nerves II-XII intact. Laboratory Results - last 24 hr 01/22/19 01/22/19 01/22/19 20:00 20:00 20:00 WBC 2.6 L Corrected WBC (auto) 2.24 RBC 2.36 L Hgb 6.8 L* Hct 21.9 L D MCV 92.8 MCH 28.8 MCHC 31.0 L RDW 22.2 H Plt Count 91 L MPV 9.8 Absolute Neuts (auto) 1.6 Neutrophils % No Result Required. Neutrophils % (Manual) 52.6 Band Neutrophils % 5.2 Lymphocytes % No Result Required. Lymphocytes % (Manual) 33.0 D Monocytes % Monocytes % (Manual) 3 L D Eosinophils % Eosinophils % (Manual) 3.1 D Basophils % Basophils % (Manual) 1.0 D Myelocytes % (Man) 0 Promyelocytes % (Man) 0 Blast Cells % (Manual) 0 Nucleated RBC % 16 H* Metamyelocytes 0 Hypochromia 0 Platelet Estimate Decreased Poikilocytosis 1+ Basophilic Stippling 1+ Anisocytosis 3+ Microcytosis 2+ Macrocytosis 1+ Ovalocytes 1+ Retic Count PT with INR 34.90 H INR 2.93 H PTT (Actin FS) 26.8 Fibrinogen Anticoagulation Therapy Puncture Site ABG pH ABG pCO2 at Pt Temp ABG pO2 at Pt Temp ABG HCO3 ABG O2 Sat (Measured) ABG O2 Content ABG Base Excess Remigio Test O2 Delivery Device Oxygen Flow Rate Vent Mode Vent Rate Mechanical Rate Pressure Support Vent Sodium 145 Potassium 4.4 Chloride 110 H Carbon Dioxide 30 Anion Gap 5 L BUN 32.9 H Creatinine 1.7 H Est GFR (CKD-EPI)AfAm 30.45 Est GFR (CKD-EPI)NonAf 26.28 Random Glucose 115 H Lactic Acid Calcium 7.6 L Phosphorus Magnesium Iron TIBC Iron Saturation Unsaturated IBC Ferritin Total Bilirubin 0.2 AST 20 ALT 30 Alkaline Phosphatase 49 LD Total B-Natriuretic Peptide 3824.3 H Total Protein 4.3 L Albumin 1.8 L TSH Free T4 Urine Color Urine Appearance Urine pH Ur Specific Friendship Urine Protein Urine Glucose (UA) Urine Ketones Urine Blood Urine Nitrite Urine Bilirubin Urine Urobilinogen Ur Leukocyte Esterase Urine WBC (Auto) Urine RBC (Auto) Urine Casts (Auto) U Epithel Cells (Auto) Urine Bacteria (Auto) Blood Type Antibody Screen Crossmatch 01/22/19 01/22/19 01/22/19 20:00 20:59 22:35 WBC Corrected WBC (auto) RBC Hgb Hct MCV MCH MCHC RDW Plt Count MPV Absolute Neuts (auto) Neutrophils % Neutrophils % (Manual) Band Neutrophils % Lymphocytes % Lymphocytes % (Manual) Monocytes % Monocytes % (Manual) Eosinophils % Eosinophils % (Manual) Basophils % Basophils % (Manual) Myelocytes % (Man) Promyelocytes % (Man) Blast Cells % (Manual) Nucleated RBC % Metamyelocytes Hypochromia Platelet Estimate Poikilocytosis Basophilic Stippling Anisocytosis Microcytosis Macrocytosis Ovalocytes Retic Count PT with INR INR PTT (Actin FS) Fibrinogen Anticoagulation Therapy No Result Required. Puncture Site Right brachial ABG pH 7.37 ABG pCO2 at Pt Temp 49.3 H ABG pO2 at Pt Temp 38.6 L* ABG HCO3 27.7 H ABG O2 Sat (Measured) 68.4 L ABG O2 Content 4.5 L* ABG Base Excess 2.8 H Remigio Test Positive O2 Delivery Device Bipap Oxygen Flow Rate 100 Vent Mode S/t Vent Rate 14 Mechanical Rate No Result Required. Pressure Support Vent 10/5 Sodium Potassium Chloride Carbon Dioxide Anion Gap BUN Creatinine Est GFR (CKD-EPI)AfAm Est GFR (CKD-EPI)NonAf Random Glucose Lactic Acid 1.7 Calcium Phosphorus Magnesium Iron TIBC Iron Saturation Unsaturated IBC Ferritin Total Bilirubin AST ALT Alkaline Phosphatase LD Total B-Natriuretic Peptide Total Protein Albumin TSH Free T4 Urine Color Urine Appearance Urine pH Ur Specific Friendship Urine Protein Urine Glucose (UA) Urine Ketones Urine Blood Urine Nitrite Urine Bilirubin Urine Urobilinogen Ur Leukocyte Esterase Urine WBC (Auto) Urine RBC (Auto) Urine Casts (Auto) U Epithel Cells (Auto) Urine Bacteria (Auto) Blood Type O POSITIVE Antibody Screen Negative Crossmatch See Detail 01/23/19 01/23/19 01/23/19 02:45 02:45 02:45 WBC 2.2 L Corrected WBC (auto) RBC 2.00 L Hgb 5.7 L* Hct 18.4 L D MCV 91.9 MCH 28.5 MCHC 31.1 L RDW 22.0 H Plt Count 76 L MPV 9.9 Absolute Neuts (auto) Neutrophils % Neutrophils % (Manual) Band Neutrophils % Lymphocytes % Lymphocytes % (Manual) Monocytes % Monocytes % (Manual) Eosinophils % Eosinophils % (Manual) Basophils % Basophils % (Manual) Myelocytes % (Man) Promyelocytes % (Man) Blast Cells % (Manual) Nucleated RBC % Metamyelocytes Hypochromia Platelet Estimate Poikilocytosis Basophilic Stippling Anisocytosis Microcytosis Macrocytosis Ovalocytes Retic Count PT with INR INR PTT (Actin FS) Fibrinogen Anticoagulation Therapy Puncture Site ABG pH ABG pCO2 at Pt Temp ABG pO2 at Pt Temp ABG HCO3 ABG O2 Sat (Measured) ABG O2 Content ABG Base Excess Remigio Test O2 Delivery Device Oxygen Flow Rate Vent Mode Vent Rate Mechanical Rate Pressure Support Vent Sodium Potassium Chloride Carbon Dioxide Anion Gap BUN Creatinine Est GFR (CKD-EPI)AfAm Est GFR (CKD-EPI)NonAf Random Glucose Lactic Acid Calcium Phosphorus Magnesium Iron TIBC Iron Saturation Unsaturated IBC Ferritin Total Bilirubin AST ALT Alkaline Phosphatase LD Total 443 H B-Natriuretic Peptide Total Protein Albumin TSH Free T4 Urine Color Yellow Urine Appearance Cloudy Urine pH 5.0 D Ur Specific Friendship 1.013 Urine Protein Negative Urine Glucose (UA) Negative Urine Ketones Negative Urine Blood 1+ H Urine Nitrite Negative Urine Bilirubin Negative Urine Urobilinogen 0.2 Ur Leukocyte Esterase 3+ H Urine WBC (Auto) 276 Urine RBC (Auto) 2 Urine Casts (Auto) 10 U Epithel Cells (Auto) 3.0 Urine Bacteria (Auto) 946.2 Blood Type Antibody Screen Crossmatch 0801/23/19 01/23/19 06:00 07:03 07:03 WBC 2.6 L Corrected WBC (auto) RBC 2.38 L Hgb 7.0 L Hct 22.0 L D MCV 92.5 MCH 29.6 MCHC 32.0 RDW 19.9 H Plt Count 74 L MPV 9.1 Absolute Neuts (auto) 1.5 Neutrophils % 60.3 D Neutrophils % (Manual) Band Neutrophils % Lymphocytes % 30.8 D Lymphocytes % (Manual) Monocytes % 5.7 D Monocytes % (Manual) Eosinophils % 2.9 D Eosinophils % (Manual) Basophils % 0.3 Basophils % (Manual) Myelocytes % (Man) Promyelocytes % (Man) Blast Cells % (Manual) Nucleated RBC % 8 H Metamyelocytes Hypochromia Platelet Estimate Poikilocytosis Basophilic Stippling Anisocytosis Microcytosis Macrocytosis Ovalocytes Retic Count PT with INR INR PTT (Actin FS) Fibrinogen Anticoagulation Therapy No Result Required. Puncture Site Right radial ABG pH 7.39 ABG pCO2 at Pt Temp 46.4 H ABG pO2 at Pt Temp 242 H ABG HCO3 27.2 H ABG O2 Sat (Measured) 99.6 H ABG O2 Content 9.8 L* ABG Base Excess 2.5 H Remigio Test Positive O2 Delivery Device Bipap Oxygen Flow Rate 60% Vent Mode S/t Vent Rate 14 Mechanical Rate No Result Required. Pressure Support Vent 10/5 Sodium 145 Potassium 4.3 Chloride 111 H Carbon Dioxide 31 Anion Gap 4 L BUN 31.8 H Creatinine 1.8 H Est GFR (CKD-EPI)AfAm 28.42 Est GFR (CKD-EPI)NonAf 24.52 Random Glucose 106 Lactic Acid Calcium 7.1 L Phosphorus Magnesium Iron TIBC Iron Saturation Unsaturated IBC Ferritin Total Bilirubin 0.4 AST 17 ALT 24 Alkaline Phosphatase 40 L LD Total B-Natriuretic Peptide Total Protein 3.8 L Albumin 1.6 L TSH 0.13 L Free T4 Urine Color Urine Appearance Urine pH Ur Specific Friendship Urine Protein Urine Glucose (UA) Urine Ketones Urine Blood Urine Nitrite Urine Bilirubin Urine Urobilinogen Ur Leukocyte Esterase Urine WBC (Auto) Urine RBC (Auto) Urine Casts (Auto) U Epithel Cells (Auto) Urine Bacteria (Auto) Blood Type Antibody Screen Crossmatch 01/23/19 01/23/19 01/23/19 07:03 07:03 07:03 WBC Corrected WBC (auto) RBC Hgb Hct MCV MCH MCHC RDW Plt Count MPV Absolute Neuts (auto) Neutrophils % Neutrophils % (Manual) Band Neutrophils % Lymphocytes % Lymphocytes % (Manual) Monocytes % Monocytes % (Manual) Eosinophils % Eosinophils % (Manual) Basophils % Basophils % (Manual) Myelocytes % (Man) Promyelocytes % (Man) Blast Cells % (Manual) Nucleated RBC % Metamyelocytes Hypochromia Platelet Estimate Poikilocytosis Basophilic Stippling Anisocytosis Microcytosis Macrocytosis Ovalocytes Retic Count PT with INR INR PTT (Actin FS) Fibrinogen Anticoagulation Therapy Puncture Site ABG pH ABG pCO2 at Pt Temp ABG pO2 at Pt Temp ABG HCO3 ABG O2 Sat (Measured) ABG O2 Content ABG Base Excess Remigio Test O2 Delivery Device Oxygen Flow Rate Vent Mode Vent Rate Mechanical Rate Pressure Support Vent Sodium Potassium Chloride Carbon Dioxide Anion Gap BUN Creatinine Est GFR (CKD-EPI)AfAm Est GFR (CKD-EPI)NonAf Random Glucose Lactic Acid 0.7 Calcium Phosphorus Magnesium Iron 18 L 17 L TIBC 173 L Iron Saturation 9 L Unsaturated IBC 156 L Ferritin 112.0 Total Bilirubin AST ALT Alkaline Phosphatase LD Total B-Natriuretic Peptide Total Protein Albumin TSH Free T4 1.24 Urine Color Urine Appearance Urine pH Ur Specific Friendship Urine Protein Urine Glucose (UA) Urine Ketones Urine Blood Urine Nitrite Urine Bilirubin Urine Urobilinogen Ur Leukocyte Esterase Urine WBC (Auto) Urine RBC (Auto) Urine Casts (Auto) U Epithel Cells (Auto) Urine Bacteria (Auto) Blood Type Antibody Screen Crossmatch 01/23/19 01/23/19 01/23/19 07:03 07:03 Unknown WBC Corrected WBC (auto) RBC Hgb Hct MCV MCH MCHC RDW Plt Count MPV Absolute Neuts (auto) Neutrophils % Neutrophils % (Manual) Band Neutrophils % Lymphocytes % Lymphocytes % (Manual) Monocytes % Monocytes % (Manual) Eosinophils % Eosinophils % (Manual) Basophils % Basophils % (Manual) Myelocytes % (Man) Promyelocytes % (Man) Blast Cells % (Manual) Nucleated RBC % Metamyelocytes Hypochromia Platelet Estimate Poikilocytosis Basophilic Stippling Anisocytosis Microcytosis Macrocytosis Ovalocytes Retic Count 3.30 H D PT with INR INR PTT (Actin FS) Fibrinogen 474.0 Anticoagulation Therapy Puncture Site ABG pH ABG pCO2 at Pt Temp ABG pO2 at Pt Temp ABG HCO3 ABG O2 Sat (Measured) ABG O2 Content ABG Base Excess Remigio Test O2 Delivery Device Oxygen Flow Rate Vent Mode Vent Rate Mechanical Rate Pressure Support Vent Sodium Potassium Chloride Carbon Dioxide Anion Gap BUN Creatinine Est GFR (CKD-EPI)AfAm Est GFR (CKD-EPI)NonAf Random Glucose Lactic Acid Calcium Phosphorus 3.3 Magnesium 2.2 Iron TIBC Iron Saturation Unsaturated IBC Ferritin Total Bilirubin AST ALT Alkaline Phosphatase LD Total B-Natriuretic Peptide Total Protein Albumin TSH Free T4 Urine Color Urine Appearance Urine pH Ur Specific Friendship Urine Protein Urine Glucose (UA) Urine Ketones Urine Blood Urine Nitrite Urine Bilirubin Urine Urobilinogen Ur Leukocyte Esterase Urine WBC (Auto) Urine RBC (Auto) Urine Casts (Auto) U Epithel Cells (Auto) Urine Bacteria (Auto) Blood Type Antibody Screen Crossmatch Active Medications Generic Name Dose Route Start Last Admin Trade Name Freq PRN Reason Stop Dose Admin Acetaminophen 650 mg 01/22/19 21:35 Tylenol - PO QID PRN PAIN Albuterol/Ipratropium 1 amp 01/23/19 00:00 01/23/19 07:09 Duoneb - NEB 1 amp RQ4H MALIK Administration Chlorhexidine Gluconate 1 applic 01/22/19 22:00 Hibiclens For Decolonization - TP HS MALIK Diltiazem HCl 180 mg 01/23/19 10:00 01/23/19 09:28 Cardizem Cd - PO 180 mg DAILY MALIK Administration Fluconazole 100 mg 01/23/19 10:45 Diflucan - PO DAILY [facility] Furosemide 40 mg 01/23/19 10:00 01/23/19 09:28 Lasix - PO 40 mg DAILY [facility] Administration Gabapentin 100 mg 01/22/19 22:00 01/23/19 06:25 Neurontin - PO 100 mg TID MALIK Administration Levofloxacin 250 mg in 50 mls @ 100 mls/hr 01/24/19 10:00 Levaquin 250 Mg Premixed Ivpb - IVPB DAILY [facility] Protocol Metoprolol Succinate 50 mg 01/22/19 22:00 01/23/19 03:29 Toprol Xl - PO Not Given HS MALIK Multi-Ingredient Lotion 1 applic 01/22/19 22:00 01/23/19 10:32 Eucerin (Small Jar) - TP 1 applic BID [facility] Administration Nystatin 1 applic 01/23/19 10:00 01/23/19 10:31 Nystop Powder - TP 1 applic DAILY [facility] Administration Ondansetron HCl 4 mg 01/22/19 21:35 Zofran - PO TID PRN NAUSEA Polyethylene Glycol 17 gm 01/23/19 10:00 01/23/19 09:28 Miralax (For Daily Use) - PO 17 grams DAILY [facility] Administration Fluticasone/Salmeterol 1 puff 01/22/19 22:00 01/23/19 10:32 Advair 100mcg/50mcg - IH 1 puff BID MAL[facility] Administration Silver Sulfadiazine 1 applic 01/23/19 10:00 01/23/19 09:28 Silvadene - TP 1 applic BID [facility] Administration Tramadol HCl 50 mg 01/22/19 21:35 Ultram - PO Q8H PRN PAIN LEVEL 6-10 Warfarin Sodium 3 mg 01/23/19 18:00 Coumadin - PO DAILY@1800 [facility] ASSESSMENT/PLAN: 88 year old female with a past medical history of anemia, asthma, HTN, HLD, CHF , COPD, afib (s/p ablation and on coumadin), CAD, CKD stage 4, toxic multinodular goiter admitted to the ICU secondary to sepsis from infected groin ulcer resulting in hypoxic respiratory failure in the setting of the patient's COPD, asthma, and tracheal compression. Sepsis secondary to groin/labial/sacral ulcers Hypoxic Hypercapneic Respiratory Failure Pancytopenia Anemia requiring transfusion Atrial Fibrillation HTN HLD CHF CKD NEUROLOGIC -mental status returned to normal -hold tramadol 50 q8h prn pain -gabapentin 100mg tid CARDIOLOGY -EKG afib/rvr, rate controlled now -continue home diltiazem 180mg daily -continue home Lasix 40mg daily -continue home Toprol 50mg qhs as BP allows -maintain MAP >65 RESPIRATORY -currently on BiPap, can trial nasal cannula, more hypoxic picture likely due to severe anemia -not stridorous -Advair 1 puff bid -Duoneb q4h -CT shows LLL infiltrate/atelectasis and tracheal compression RENAL -creatinine at baseline GASTROINTESTINAL -FOBT assessment for GI bleed GENITOURINARY -barroso in -multiple stage 2/3 ulcers on the thigh, labia, sacrum -adding diflucan for fungal like secretions INFECTIOUS DISEASE -not currnetly febrile -continue vanc/levaquin for sepsis/urinary tract infection and possible wound infection; unlikely new pneumonia -ID consultation -blood and urine cultures pending -sputum cultures -urine legionella/strep pneumo HEMATOLOGY -pancytopenia with hgb 5.7 yesterday, getting 2 U PRBCs -> improved to 7 after 1 unit -could be related to sepsis -repeat H&H at noon -transfusion goals of Hgb 7, continue to monitor counts -FOBT ordered -iron studies -hold warfarin until confirmed no bleeding LINES -RIJ inserted 01/23 in ED, remove after 7 days PROPHYLAXIS -holding chemical prophylaxis in the setting of anemia -SCDs CODE -full code DISPO -if hgb improves, can transfer to tele Visit type - Emergency Visit Emergency Visit: No - New Patient This patient is new to me today: No - Critical Care Critical Care patient: Yes Total Critical Care Time (in minutes): 40 Critical Care Statement: The care of this patient involved high complexity decision making to prevent further life threatening deterioration of the patient 's condition and/or to evaluate & treat vital organ system(s) failure or risk of failure. ATTENDING PHYSICIAN STATEMENT I saw and evaluated the patient. I reviewed the resident's note and discussed the case with the resident. I agree with the resident's findings and plan as documented. SUBJECTIVE: OBJECTIVE: ASSESSMENT AND PLAN:
[2019-01-23] MEDS ORDERED: FLUCONAZOLE 100 MG TABLET (UD) PO SCH (10:45)
--- NOTE | 2019-01-23 11:23 | PN ---
Teaching Attending Note Name of Resident: Santos Suh ATTENDING PHYSICIAN STATEMENT I saw and evaluated the patient. I reviewed the resident's note and discussed the case with the resident. I agree with the resident's findings and plan as documented. SUBJECTIVE: Pt seen and examined in the ICU. Remains on BiPAP. Denies shortness of breath. No obvious bleeding sources. OBJECTIVE: Vital Signs Period Temp Pulse Resp BP Sys/Rodriguez Pulse Ox Last 24 Hr 97.4 F-100.6 F 80-114 9-24 60-115/41-72 82-99 Intake & Output 01/20/19 01/21/19 01/22/19 01/23/19 23:59 23:59 23:59 23:59 Intake Total 250 Output Total 1200 Balance -950 Weight 104.326 kg 101.786 kg Gen: NAD on BiPAP Heart: RRR Lung: scattered rhonchi Abd: soft, nontender Ext: no edema CBC, BMP 01/23/19 07:03 01/23/19 07:03 Active Medications Acetaminophen (Tylenol -) 650 mg PO QID PRN PRN Reason: PAIN Albuterol/Ipratropium (Duoneb -) 1 amp NEB RQ4H [facility] Last Admin: 01/23/19 07:09 Dose: 1 amp Chlorhexidine Gluconate (Hibiclens For Decolonization -) 1 applic TP [facility] Diltiazem HCl (Cardizem Cd -) 180 mg PO DAILY [facility] Last Admin: 01/23/19 09:28 Dose: 180 mg Fluconazole (Diflucan -) 100 mg PO DAILY [facility] Furosemide (Lasix -) 40 mg PO DAILY [facility] Last Admin: 01/23/19 09:28 Dose: 40 mg Gabapentin (Neurontin -) 100 mg PO TID [facility] Last Admin: 01/23/19 06:25 Dose: 100 mg Levofloxacin (Levaquin 250 Mg Premixed Ivpb -) 250 mg in 50 mls @ 100 mls/hr IVPB DAILY [facility]; Protocol Metoprolol Succinate (Toprol Xl -) 50 mg PO HS [facility] Last Admin: 01/23/19 03:29 Dose: Not Given Multi-Ingredient Lotion (Eucerin (Small Jar) -) 1 applic TP BID [facility] Last Admin: 01/23/19 10:32 Dose: 1 applic Nystatin (Nystop Powder -) 1 applic TP DAILY [facility] Last Admin: 01/23/19 10:31 Dose: 1 applic Ondansetron HCl (Zofran -) 4 mg PO TID PRN PRN Reason: NAUSEA Polyethylene Glycol (Miralax (For Daily Use) -) 17 gm PO DAILY [facility] Last Admin: 01/23/19 09:28 Dose: 17 grams Fluticasone/Salmeterol (Advair 100mcg/50mcg -) 1 puff IH BID [facility] Last Admin: 01/23/19 10:32 Dose: 1 puff Silver Sulfadiazine (Silvadene -) 1 applic TP BID [facility] Last Admin: 01/23/19 09:28 Dose: 1 applic Tramadol HCl (Ultram -) 50 mg PO Q8H PRN PRN Reason: PAIN LEVEL 6-10 Warfarin Sodium (Coumadin -) 3 mg PO DAILY@1800 [facility] ASSESSMENT AND PLAN: Acute on Chronic Hypoxic Respiratory Failure UTI Sepsis COPD Atrial Fibrillation LV Systolic/Diastolic Dysfunction CKD Pancytopenia Anemia requiring PRBC transfusions Goiter with Tracheal compression - continue antibiotics - f/u cultures - transfuse PRBC - monitor CBC - O2 to keep Spo2 >90% - BiPAP as needed to assist in work of breathing - inhaled bronchodilators - rate control - holding anticoagulation due to anemia - DVT prophylaxis - can monitor on telemetry
[2019-01-23] MEDS ORDERED: MORPHINE SULFATE 2 MG/ML VIAL ONE (11:25)
--- NOTE | 2019-01-23 14:27 | CON.ID ---
Consult - History of Present Illness History of Present Illness: 88 y.o. female with PMH of COPD on home O2, CHF, ASHD, HTN, HLD, CKD, diverticultis/ ? ischemic colitis s/p partial colectomy, s/p JW/BSO, Anemia presents with c/o worsening SOB over the past week with subjective fever/ chills. She was recently admitted for chronic cough/stridor/ persistent pulmonary infiltrates/ copd exacerbation, and noted to have multinodular goiter with ? partial tracheal compression. In the ER patient was noted to have low grade fever ( 100.6F) and hypoxia with 82% O2 sat (now on BIPAP) , severe anemia Hgb 5.7/pancytopenia and persistence of Lt basilar infiltrate on CXR. As per PMD pancytopenia may have been induced by Methimazole she was recently started on. Patient currently in ICU, alert and fully responsive, stating she is feeling a bit better. She is s/p PRBC transfusion. - History Source History Provided By: Patient, Medical Record - Past Medical History Cardio/Vascular: Yes: CAD, HTN, Hyperlipdemia Pulmonary: Yes: COPD Gastrointestinal: Yes: Diverticulitis, Diverticulosis, Other (ischemic colitis, h/o colon polyps) Renal/: Yes: Renal Inusuff ...: No Heme/Onc: Yes: Anemia Endocrine: Yes: Other (multinodular goiter) - Past Surgical History Past Surgical History: Yes: None, Appendectomy, Colectomy (partial colectomy for perforation from ? diverticulitis/ischemic colitis), Hysterectomy (JW/BSO) - Alcohol/Substance Use Hx Alcohol Use: No History of Substance Use: reports: None - Smoking History Smoking history: Never smoked Have you smoked in the past 12 months: No Aproximately how many cigarettes per day: 0 If you are a former smoker, when did you quit?: many years - Social History Usual Living Arrangement: With Child ADL: Family Assistance History of Recent Travel: No Home Medications - Allergies Allergies/Adverse Reactions: Allergies Allergy/AdvReac Type Severity Reaction Status Date / Time Penicillins Allergy Verified 01/22/19 16:41 procaine Allergy Verified 01/22/19 16:41 - Home Medications Home Medications: Ambulatory Orders Acetaminophen [Tylenol] 650 mg PO QID PRN 12/28/18 Ascorbic Acid [Vitamin C] 500 mg PO DAILY 12/28/18 Aspirin 81 mg PO DAILY 12/28/18 Metoprolol Succinate [Toprol Xl] 50 mg PO HS 12/28/18 Ondansetron HCl [Zofran] 4 mg PO TID PRN 12/28/18 Salmeterol/Fluticasone [Advair 100Mcg/50Mcg -] 1 inh PO BID 12/28/18 Tramadol HCl 50 mg PO BID PRN 12/28/18 Albuterol 2.5/Ipratropium 0.5 [Duoneb -] 1 amp NEB RQ4H amp 01/12/19 Allopurinol [Zyloprim -] 100 mg PO DAILY tablet 01/12/19 Chlorhexidine Gluconate [Hibiclens For Decolonization -] 1 applic TP HS bottle 01/12/19 Furosemide [Lasix -] 40 mg PO DAILY tablet 01/12/19 Gabapentin [Neurontin -] 100 mg PO TID capsule 01/12/19 Methimazole [Tapazole -] 10 mg PO TID tablet 01/12/19 Nystatin Powder [Nystop Powder -] 1 applic TP DAILY applic 01/12/19 Ranitidine [Zantac -] 150 mg PO DAILY tablet 01/12/19 traMADol HCL [Ultram -] 50 mg PO Q8H PRN #30 tablet MDD 2 01/12/19 Diltiazem Cd [Cardizem Cd -] 180 mg PO DAILY cap.cd.24h 01/13/19 predniSONE [Deltasone -] 40 mg PO DAILY tablet 01/13/19 Lanolin Alcohol/Mo/W.pet/[place] [Eucerin Creme] 113 gm TP BID 01/22/19 Polyethylene Glycol 3350 [Miralax (For Daily Use) -] 17 gm PO DAILY 01/22/19 Silver Sulfadiazine 1% Top Cr [Silvadene -] 1 applic TP DAILY 01/22/19 Warfarin Na [Coumadin] 3 mg PO HS 01/22/19 Family Disease History - Family Disease History Family Disease History: [place]: Son (colon ca) Review of Systems - Review of Systems Constitutional: reports: Chills, Fever, Weakness Eyes: reports: No Symptoms HENT: reports: No Symptoms Neck: reports: No Symptoms, Other (goiter) Cardiovascular: reports: Shortness of Breath Respiratory: reports: SOB Gastrointestinal: reports: No Symptoms Genitourinary: reports: Incontinence Breasts: reports: No Symptoms Reported Musculoskeletal: reports: No Symptoms Neurological: reports: No Symptoms Endocrine: reports: No Symptoms Hematology/Lymphatic: reports: No Symptoms Psychiatric: reports: No Symptoms Physical Exam Vital Signs: Vital Signs Temperature 97.4 F L 01/23/19 08:00 Pulse Rate 100 H 01/23/19 10:00 Respiratory Rate 16 01/23/19 10:00 Blood Pressure 96/63 01/23/19 10:00 O2 Sat by Pulse Oximetry (%) 98 01/23/19 07:09 Constitutional: Yes: No Distress, Calm Eyes: Yes: Conjunctiva Clear, EOM Intact HENT: Yes: Atraumatic, Normocephalic Neck: Yes: Supple Cardiovascular: Yes: Pulse Irregular Respiratory: Yes: Rhonchi Gastrointestinal: Yes: Normal Bowel Sounds, Soft, Abdomen, Obese Renal/: Yes: [place] Present Musculoskeletal: Yes: WNL Extremities: Yes: WNL Edema: RUE: 1+ Integumentary: Yes: Pressure Ulcer Neurological: Yes: Alert Psychiatric: Yes: Alert Labs: CBC, BMP 01/23/19 07:03 01/23/19 07:03 Laboratory Tests 01/22/19 01/22/19 01/22/19 20:00 20:00 20:00 WBC 2.6 L Corrected WBC (auto) 2.24 RBC 2.36 L Hgb 6.8 L* Hct 21.9 L D MCV 92.8 MCH 28.8 MCHC 31.0 L RDW 22.2 H Plt Count 91 L MPV 9.8 Absolute Neuts (auto) 1.6 Neutrophils % No Result Required. Neutrophils % (Manual) 52.6 Band Neutrophils % 5.2 Lymphocytes % No Result Required. Lymphocytes % (Manual) 33.0 D Monocytes % Monocytes % (Manual) 3 L D Eosinophils % Eosinophils % (Manual) 3.1 D Basophils % Basophils % (Manual) 1.0 D Myelocytes % (Man) 0 Promyelocytes % (Man) 0 Blast Cells % (Manual) 0 Nucleated RBC % 16 H* Metamyelocytes 0 Hypochromia 0 Platelet Estimate Decreased Poikilocytosis 1+ Basophilic Stippling 1+ Anisocytosis 3+ Microcytosis 2+ Macrocytosis 1+ Ovalocytes 1+ Retic Count PT with INR 34.90 H INR 2.93 H PTT (Actin FS) 26.8 Fibrinogen Anticoagulation Therapy Puncture Site ABG pH ABG pCO2 at Pt Temp ABG pO2 at Pt Temp ABG HCO3 ABG O2 Sat (Measured) ABG O2 Content ABG Base Excess Remigio Test O2 Delivery Device Oxygen Flow Rate Vent Mode Vent Rate Mechanical Rate Pressure Support Vent Sodium 145 Potassium 4.4 Chloride 110 H Carbon Dioxide 30 Anion Gap 5 L BUN 32.9 H Creatinine 1.7 H Est GFR (CKD-EPI)AfAm 30.45 Est GFR (CKD-EPI)NonAf 26.28 Random Glucose 115 H Lactic Acid Calcium 7.6 L Phosphorus Magnesium Iron TIBC Iron Saturation Unsaturated IBC Ferritin Total Bilirubin 0.2 AST 20 ALT 30 Alkaline Phosphatase 49 LD Total B-Natriuretic Peptide 3824.3 H Total Protein 4.3 L Albumin 1.8 L TSH Free T4 Urine Color Urine Appearance Urine pH Ur Specific Gill Urine Protein Urine Glucose (UA) Urine Ketones Urine Blood Urine Nitrite Urine Bilirubin Urine Urobilinogen Ur Leukocyte Esterase Urine WBC (Auto) Urine RBC (Auto) Urine Casts (Auto) U Epithel Cells (Auto) Urine Bacteria (Auto) Blood Type Antibody Screen Crossmatch 01/22/19 01/22/19 01/22/19 20:00 20:59 22:35 WBC Corrected WBC (auto) RBC Hgb Hct MCV MCH MCHC RDW Plt Count MPV Absolute Neuts (auto) Neutrophils % Neutrophils % (Manual) Band Neutrophils % Lymphocytes % Lymphocytes % (Manual) Monocytes % Monocytes % (Manual) Eosinophils % Eosinophils % (Manual) Basophils % Basophils % (Manual) Myelocytes % (Man) Promyelocytes % (Man) Blast Cells % (Manual) Nucleated RBC % Metamyelocytes Hypochromia Platelet Estimate Poikilocytosis Basophilic Stippling Anisocytosis Microcytosis Macrocytosis Ovalocytes Retic Count PT with INR INR PTT (Actin FS) Fibrinogen Anticoagulation Therapy No Result Required. Puncture Site Right brachial ABG pH 7.37 ABG pCO2 at Pt Temp 49.3 H ABG pO2 at Pt Temp 38.6 L* ABG HCO3 27.7 H ABG O2 Sat (Measured) 68.4 L ABG O2 Content 4.5 L* ABG Base Excess 2.8 H Remigio Test Positive O2 Delivery Device Bipap Oxygen Flow Rate 100 Vent Mode S/t Vent Rate 14 Mechanical Rate No Result Required. Pressure Support Vent 10/5 Sodium Potassium Chloride Carbon Dioxide Anion Gap BUN Creatinine Est GFR (CKD-EPI)AfAm Est GFR (CKD-EPI)NonAf Random Glucose Lactic Acid 1.7 Calcium Phosphorus Magnesium Iron TIBC Iron Saturation Unsaturated IBC Ferritin Total Bilirubin AST ALT Alkaline Phosphatase LD Total B-Natriuretic Peptide Total Protein Albumin TSH Free T4 Urine Color Urine Appearance Urine pH Ur Specific Gill Urine Protein Urine Glucose (UA) Urine Ketones Urine Blood Urine Nitrite Urine Bilirubin Urine Urobilinogen Ur Leukocyte Esterase Urine WBC (Auto) Urine RBC (Auto) Urine Casts (Auto) U Epithel Cells (Auto) Urine Bacteria (Auto) Blood Type O POSITIVE Antibody Screen Negative Crossmatch See Detail 01/23/19 01/23/19 01/23/19 02:45 02:45 02:45 WBC 2.2 L Corrected WBC (auto) RBC 2.00 L Hgb 5.7 L* Hct 18.4 L D MCV 91.9 MCH 28.5 MCHC 31.1 L RDW 22.0 H Plt Count 76 L MPV 9.9 Absolute Neuts (auto) Neutrophils % Neutrophils % (Manual) Band Neutrophils % Lymphocytes % Lymphocytes % (Manual) Monocytes % Monocytes % (Manual) Eosinophils % Eosinophils % (Manual) Basophils % Basophils % (Manual) Myelocytes % (Man) Promyelocytes % (Man) Blast Cells % (Manual) Nucleated RBC % Metamyelocytes Hypochromia Platelet Estimate Poikilocytosis Basophilic Stippling Anisocytosis Microcytosis Macrocytosis Ovalocytes Retic Count PT with INR INR PTT (Actin FS) Fibrinogen Anticoagulation Therapy Puncture Site ABG pH ABG pCO2 at Pt Temp ABG pO2 at Pt Temp ABG HCO3 ABG O2 Sat (Measured) ABG O2 Content ABG Base Excess Remigio Test O2 Delivery Device Oxygen Flow Rate Vent Mode Vent Rate Mechanical Rate Pressure Support Vent Sodium Potassium Chloride Carbon Dioxide Anion Gap BUN Creatinine Est GFR (CKD-EPI)AfAm Est GFR (CKD-EPI)NonAf Random Glucose Lactic Acid Calcium Phosphorus Magnesium Iron TIBC Iron Saturation Unsaturated IBC Ferritin Total Bilirubin AST ALT Alkaline Phosphatase LD Total 443 H B-Natriuretic Peptide Total Protein Albumin TSH Free T4 Urine Color Yellow Urine Appearance Cloudy Urine pH 5.0 D Ur Specific Gill 1.013 Urine Protein Negative Urine Glucose (UA) Negative Urine Ketones Negative Urine Blood 1+ H Urine Nitrite Negative Urine Bilirubin Negative Urine Urobilinogen 0.2 Ur Leukocyte Esterase 3+ H Urine WBC (Auto) 276 Urine RBC (Auto) 2 Urine Casts (Auto) 10 U Epithel Cells (Auto) 3.0 Urine Bacteria (Auto) 946.2 Blood Type Antibody Screen Crossmatch 01/23/19 01/23/19 01/23/19 06:00 06:00 07:03 WBC 2.6 L Corrected WBC (auto) RBC 2.38 L Hgb 7.0 L Hct 22.0 L D MCV 92.5 MCH 29.6 MCHC 32.0 RDW 19.9 H Plt Count 74 L MPV 9.1 Absolute Neuts (auto) 1.5 Neutrophils % 60.3 D Neutrophils % (Manual) Band Neutrophils % Lymphocytes % 30.8 D Lymphocytes % (Manual) Monocytes % 5.7 D Monocytes % (Manual) Eosinophils % 2.9 D Eosinophils % (Manual) Basophils % 0.3 Basophils % (Manual) Myelocytes % (Man) Promyelocytes % (Man) Blast Cells % (Manual) Nucleated RBC % 8 H Metamyelocytes Hypochromia Platelet Estimate Poikilocytosis Basophilic Stippling Anisocytosis Microcytosis Macrocytosis Ovalocytes Retic Count PT with INR 38.70 H INR 3.24 H PTT (Actin FS) Fibrinogen Anticoagulation Therapy No Result Required. Puncture Site Right radial ABG pH 7.39 ABG pCO2 at Pt Temp 46.4 H ABG pO2 at Pt Temp 242 H ABG HCO3 27.2 H ABG O2 Sat (Measured) 99.6 H ABG O2 Content 9.8 L* ABG Base Excess 2.5 H Remigio Test Positive O2 Delivery Device Bipap Oxygen Flow Rate 60% Vent Mode S/t Vent Rate 14 Mechanical Rate No Result Required. Pressure Support Vent 10/5 Sodium Potassium Chloride Carbon Dioxide Anion Gap BUN Creatinine Est GFR (CKD-EPI)AfAm Est GFR (CKD-EPI)NonAf Random Glucose Lactic Acid Calcium Phosphorus Magnesium Iron TIBC Iron Saturation Unsaturated IBC Ferritin Total Bilirubin AST ALT Alkaline Phosphatase LD Total B-Natriuretic Peptide Total Protein Albumin TSH Free T4 Urine Color Urine Appearance Urine pH Ur Specific Gill Urine Protein Urine Glucose (UA) Urine Ketones Urine Blood Urine Nitrite Urine Bilirubin Urine Urobilinogen Ur Leukocyte Esterase Urine WBC (Auto) Urine RBC (Auto) Urine Casts (Auto) U Epithel Cells (Auto) Urine Bacteria (Auto) Blood Type Antibody Screen Crossmatch 01/23/19 01/23/19 01/23/19 07:03 07:03 07:03 WBC Corrected WBC (auto) RBC Hgb Hct MCV MCH MCHC RDW Plt Count MPV Absolute Neuts (auto) Neutrophils % Neutrophils % (Manual) Band Neutrophils % Lymphocytes % Lymphocytes % (Manual) Monocytes % Monocytes % (Manual) Eosinophils % Eosinophils % (Manual) Basophils % Basophils % (Manual) Myelocytes % (Man) Promyelocytes % (Man) Blast Cells % (Manual) Nucleated RBC % Metamyelocytes Hypochromia Platelet Estimate Poikilocytosis Basophilic Stippling Anisocytosis Microcytosis Macrocytosis Ovalocytes Retic Count PT with INR INR PTT (Actin FS) Fibrinogen Anticoagulation Therapy Puncture Site ABG pH ABG pCO2 at Pt Temp ABG pO2 at Pt Temp ABG HCO3 ABG O2 Sat (Measured) ABG O2 Content ABG Base Excess Remigio Test O2 Delivery Device Oxygen Flow Rate Vent Mode Vent Rate Mechanical Rate Pressure Support Vent Sodium 145 Potassium 4.3 Chloride 111 H Carbon Dioxide 31 Anion Gap 4 L BUN 31.8 H Creatinine 1.8 H Est GFR (CKD-EPI)AfAm 28.42 Est GFR (CKD-EPI)NonAf 24.52 Random Glucose 106 Lactic Acid 0.7 Calcium 7.1 L Phosphorus Magnesium Iron 18 L TIBC Iron Saturation Unsaturated IBC Ferritin Total Bilirubin 0.4 AST 17 ALT 24 Alkaline Phosphatase 40 L LD Total B-Natriuretic Peptide Total Protein 3.8 L Albumin 1.6 L TSH 0.13 L Free T4 1.24 Urine Color Urine Appearance Urine pH Ur Specific Gill Urine Protein Urine Glucose (UA) Urine Ketones Urine Blood Urine Nitrite Urine Bilirubin Urine Urobilinogen Ur Leukocyte Esterase Urine WBC (Auto) Urine RBC (Auto) Urine Casts (Auto) U Epithel Cells (Auto) Urine Bacteria (Auto) Blood Type Antibody Screen Crossmatch 01/23/19 01/23/19 01/23/19 07:03 07:03 07:03 WBC Corrected WBC (auto) RBC Hgb Hct MCV MCH MCHC RDW Plt Count MPV Absolute Neuts (auto) Neutrophils % Neutrophils % (Manual) Band Neutrophils % Lymphocytes % Lymphocytes % (Manual) Monocytes % Monocytes % (Manual) Eosinophils % Eosinophils % (Manual) Basophils % Basophils % (Manual) Myelocytes % (Man) Promyelocytes % (Man) Blast Cells % (Manual) Nucleated RBC % Metamyelocytes Hypochromia Platelet Estimate Poikilocytosis Basophilic Stippling Anisocytosis Microcytosis Macrocytosis Ovalocytes Retic Count PT with INR INR PTT (Actin FS) Fibrinogen 474.0 Anticoagulation Therapy Puncture Site ABG pH ABG pCO2 at Pt Temp ABG pO2 at Pt Temp ABG HCO3 ABG O2 Sat (Measured) ABG O2 Content ABG Base Excess Remigio Test O2 Delivery Device Oxygen Flow Rate Vent Mode Vent Rate Mechanical Rate Pressure Support Vent Sodium Potassium Chloride Carbon Dioxide Anion Gap BUN Creatinine Est GFR (CKD-EPI)AfAm Est GFR (CKD-EPI)NonAf Random Glucose Lactic Acid Calcium Phosphorus 3.3 Magnesium 2.2 Iron 17 L TIBC 173 L Iron Saturation 9 L Unsaturated IBC 156 L Ferritin 112.0 Total Bilirubin AST ALT Alkaline Phosphatase LD Total B-Natriuretic Peptide Total Protein Albumin TSH Free T4 Urine Color Urine Appearance Urine pH Ur Specific Gill Urine Protein Urine Glucose (UA) Urine Ketones Urine Blood Urine Nitrite Urine Bilirubin Urine Urobilinogen Ur Leukocyte Esterase Urine WBC (Auto) Urine RBC (Auto) Urine Casts (Auto) U Epithel Cells (Auto) Urine Bacteria (Auto) Blood Type Antibody Screen Crossmatch 01/23/19 Unknown WBC Corrected WBC (auto) RBC Hgb Hct MCV MCH MCHC RDW Plt Count MPV Absolute Neuts (auto) Neutrophils % Neutrophils % (Manual) Band Neutrophils % Lymphocytes % Lymphocytes % (Manual) Monocytes % Monocytes % (Manual) Eosinophils % Eosinophils % (Manual) Basophils % Basophils % (Manual) Myelocytes % (Man) Promyelocytes % (Man) Blast Cells % (Manual) Nucleated RBC % Metamyelocytes Hypochromia Platelet Estimate Poikilocytosis Basophilic Stippling Anisocytosis Microcytosis Macrocytosis Ovalocytes Retic Count 3.30 H D PT with INR INR PTT (Actin FS) Fibrinogen Anticoagulation Therapy Puncture Site ABG pH ABG pCO2 at Pt Temp ABG pO2 at Pt Temp ABG HCO3 ABG O2 Sat (Measured) ABG O2 Content ABG Base Excess Remigio Test O2 Delivery Device Oxygen Flow Rate Vent Mode Vent Rate Mechanical Rate Pressure Support Vent Sodium Potassium Chloride Carbon Dioxide Anion Gap BUN Creatinine Est GFR (CKD-EPI)AfAm Est GFR (CKD-EPI)NonAf Random Glucose Lactic Acid Calcium Phosphorus Magnesium Iron TIBC Iron Saturation Unsaturated IBC Ferritin Total Bilirubin AST ALT Alkaline Phosphatase LD Total B-Natriuretic Peptide Total Protein Albumin TSH Free T4 Urine Color Urine Appearance Urine pH Ur Specific Gill Urine Protein Urine Glucose (UA) Urine Ketones Urine Blood Urine Nitrite Urine Bilirubin Urine Urobilinogen Ur Leukocyte Esterase Urine WBC (Auto) Urine RBC (Auto) Urine Casts (Auto) U Epithel Cells (Auto) Urine Bacteria (Auto) Blood Type Antibody Screen Crossmatch Imaging - Results Chest X-ray: Report Reviewed Problem List - Problems (1) Respiratory failure Code(s): J96.90 - RESPIRATORY FAILURE, UNSP, UNSP W HYPOXIA OR HYPERCAPNIA (2) SOB (shortness of breath) Code(s): R06.02 - SHORTNESS OF BREATH (3) Symptomatic anemia Code(s): D64.9 - ANEMIA, UNSPECIFIED (4) Acute on chronic renal failure Code(s): N17.9 - ACUTE KIDNEY FAILURE, UNSPECIFIED; N18.9 - CHRONIC KIDNEY DISEASE, UNSPECIFIED (5) Afib Code(s): I48.91 - UNSPECIFIED ATRIAL FIBRILLATION Qualifiers: Atrial fibrillation type: chronic Qualified Code(s): I48.2 - Chronic atrial fibrillation (6) CHF (NYHA class II, ACC/AHA stage C) Code(s): I50.9 - HEART FAILURE, UNSPECIFIED (7) CKD (chronic kidney disease) Code(s): N18.9 - CHRONIC KIDNEY DISEASE, UNSPECIFIED Qualifiers: Chronic kidney disease stage: stage 4 (severe) Qualified Code(s): N18.4 - Chronic kidney disease, stage 4 (severe) (8) COPD (chronic obstructive pulmonary disease) Code(s): J44.9 - CHRONIC OBSTRUCTIVE PULMONARY DISEASE, UNSPECIFIED Qualifiers: COPD type: unspecified COPD Qualified Code(s): J44.9 - Chronic obstructive pulmonary disease, unspecified (9) Hypercholesteremia Code(s): E78.00 - PURE HYPERCHOLESTEROLEMIA, UNSPECIFIED (10) Hypertension Code(s): I10 - ESSENTIAL (PRIMARY) HYPERTENSION (11) Hyperthyroidism Code(s): E05.90 - THYROTOXICOSIS, UNSP WITHOUT THYROTOXIC CRISIS OR STORM (12) Obese Code(s): E66.9 - OBESITY, UNSPECIFIED (13) Sacral decubitus ulcer, stage II Code(s): L89.152 - PRESSURE ULCER OF SACRAL REGION, STAGE 2 (14) Thyromegaly Code(s): E01.0 - IODINE-DEFICIENCY RELATED DIFFUSE (ENDEMIC) GOITER (15) Tracheal compression Code(s): J39.8 - OTHER SPECIFIED DISEASES OF UPPER RESPIRATORY TRACT (16) UTI (urinary tract infection) Code(s): N39.0 - URINARY TRACT INFECTION, SITE NOT SPECIFIED Qualifiers: Urinary tract infection type: site unspecified Hematuria presence: without hematuria Qualified Code(s): N39.0 - Urinary tract infection, site not specified Assessment/Plan 88 y.o. female with PMH of COPD on home O2, CHF, ASHD, HTN, HLD, CKD, diverticultis/ ? ischemic colitis s/p partial colectomy, s/p JW/BSO, chronic cough/persistent pulmonary infiltrates, multinodular goiter with partial tracheal compression, and anemia presents with c/o worsening SOB over the past week with subjective fever/chills. Fever Acute hypoxic respiratory failure - on BIPAP Possible HCAP Pancytopenia UTI Multinodular goiter with partial tracheal compression COPD Hx of CKD AFIB CHF ASHD HTN HLD -- All labs/imaging results, previous hospital records reviewed -- Blood cultures/Urine cultures/Urinary Ags sent -- s/p dose of Vancomycin, d/c Levaquin, start Aztreonam/ Doxycycline -- Vancomycin random level in a.m. -- s/p PRBC transfusion, monitor cbc, now off Methimazole -- monitor closely Will follow Thank you cc time: 40 min
[2019-01-23 15:44] LABS: HEMATOCRIT 27.8 % (32.4-45.2); HEMOGLOBIN 8.9 GM/dL (10.7-15.3); MCH 29.7 pg (25.7-33.7); MEAN CELL VOLUME 92.7 fl (80-96); MEAN PLT VOLUME 9.3 fl (7.5-11.1); PLATELET COUNT 74 K/MM3 (134-434); RDW 18.4 % (11.6-15.6); WHITE BLOOD COUNT 2.2 K/mm3 (4.0-10.0)
[2019-01-23] MEDS ORDERED: WARFARIN NA 3 MG TABLET PO SCH (18:00)
[2019-01-23] MEDS ORDERED: AZTREONAM 1 GM VIAL (RESTRICTED TO ID) ONE (18:20)
[2019-01-23] MEDS ORDERED: DEXTROSE 5%-WATER - 50 ML IVPB ONE (18:20)
[2019-01-23] MEDS: AZTREONAM 1 GM in DEXTROSE 5%-WATER - 50 ML IVPB SCH (18:21)
[2019-01-23] MEDS: DOXYCYCLINE INJECTION 100 MG in DEXTROSE 5%-WATER - 100 ML IVPB SCH (21:32)
--- NOTE | 2019-01-23 23:17 | CONSULT ---
Consult Consult Specialty:: Hematology Referred by:: Dr. Cho Reason for Consultation:: Pancytopenia - History of Present Illness Chief Complaint: Respiratory failure History of Present Illness: 88F, [place] resident, wheel chair bound, with DM, CAD, CHF, AF, CKD stage 3-4, T2DM , COPD, multinodular toxic goiter with substernal extension causing partial tracheal compression, presented with respiratory failure s/p intubaiton. Hematology consulted for pancytopenia. Pt has had mild anemia since at least 2014. Admitted in 12/2018 for COPD exacerbation. Was started on methimazole for thyrotoxicosis. On 01/14 discharge, Hgb was 10.2, plt count 77 (was normal on admission), WBC 16.2 (mostly neutrophils) Now Hgb 7. WBC 2.6 (ANC 1500), Plt 74. - Past Medical History Cardio/Vascular: Yes: CAD, HTN, Hyperlipdemia Pulmonary: Yes: COPD Gastrointestinal: Yes: Diverticulitis, Diverticulosis, Other (ischemic colitis, h/o colon polyps) Renal/: Yes: Renal Inusuff ...: No Endocrine: Yes: Other (multinodular goiter) - Past Surgical History Past Surgical History: Yes: None, Appendectomy, Colectomy (partial colectomy for perforation from ? diverticulitis/ischemic colitis), Hysterectomy (JW/BSO) - Alcohol/Substance Use Hx Alcohol Use: No History of Substance Use: reports: None - Smoking History Smoking history: Never smoked Have you smoked in the past 12 months: No Aproximately how many cigarettes per day: 0 If you are a former smoker, when did you quit?: many years - Social History Usual Living Arrangement: With Child ADL: Family Assistance History of Recent Travel: No Home Medications - Allergies Allergies/Adverse Reactions: Allergies Allergy/AdvReac Type Severity Reaction Status Date / Time Penicillins Allergy Verified 01/22/19 16:41 procaine Allergy Verified 01/22/19 16:41 - Home Medications Home Medications: Ambulatory Orders Acetaminophen [Tylenol] 650 mg PO QID PRN 12/28/18 Ascorbic Acid [Vitamin C] 500 mg PO DAILY 12/28/18 Aspirin 81 mg PO DAILY 12/28/18 Metoprolol Succinate [Toprol Xl] 50 mg PO HS 12/28/18 Ondansetron HCl [Zofran] 4 mg PO TID PRN 12/28/18 Salmeterol/Fluticasone [Advair 100Mcg/50Mcg -] 1 inh PO BID 12/28/18 Tramadol HCl 50 mg PO BID PRN 12/28/18 Albuterol 2.5/Ipratropium 0.5 [Duoneb -] 1 amp NEB RQ4H amp 01/12/19 Allopurinol [Zyloprim -] 100 mg PO DAILY tablet 01/12/19 Chlorhexidine Gluconate [Hibiclens For Decolonization -] 1 applic TP HS bottle 01/12/19 Furosemide [Lasix -] 40 mg PO DAILY tablet 01/12/19 Gabapentin [Neurontin -] 100 mg PO TID capsule 01/12/19 Methimazole [Tapazole -] 10 mg PO TID tablet 01/12/19 Nystatin Powder [Nystop Powder -] 1 applic TP DAILY applic 01/12/19 Ranitidine [Zantac -] 150 mg PO DAILY tablet 01/12/19 traMADol HCL [Ultram -] 50 mg PO Q8H PRN #30 tablet MDD 2 01/12/19 Diltiazem Cd [Cardizem Cd -] 180 mg PO DAILY cap.cd.24h 01/13/19 predniSONE [Deltasone -] 40 mg PO DAILY tablet 01/13/19 Lanolin Alcohol/Mo/W.pet/[place] [Eucerin Creme] 113 gm TP BID 01/22/19 Polyethylene Glycol 3350 [Miralax (For Daily Use) -] 17 gm PO DAILY 01/22/19 Silver Sulfadiazine 1% Top Cr [Silvadene -] 1 applic TP DAILY 01/22/19 Warfarin Na [Coumadin] 3 mg PO HS 01/22/19 Family Disease History - Family Disease History Family Disease History: [place]: Son (colon ca) Physical Exam Vital Signs: Vital Signs Temperature 97.6 F 01/23/19 12:00 Pulse Rate 117 H 01/23/19 22:00 Respiratory Rate 16 01/23/19 22:00 Blood Pressure 129/92 01/23/19 22:00 O2 Sat by Pulse Oximetry (%) 97 01/23/19 21:00 Constitutional: Yes: No Distress Cardiovascular: Yes: Regular Rate and Rhythm Respiratory: Yes: Regular, CTA Bilaterally Edema: Yes Labs: CBC, BMP 01/23/19 15:02 01/23/19 07:03 Assessment/Plan New pancytopenia since last admission likely 2/2 methimazole. Peripheral smear without plt clumps, rare RBC fragments, no immature cells, no obvious e/o dysplasia, few nRBCs noted. Would continue to hold methimazole and trend CBC. Will follow
[2019-01-24] MEDS ORDERED: AZTREONAM 1 GM VIAL (RESTRICTED TO ID) ONE ×3 (00:34→14:01)
[2019-01-24] MEDS ORDERED: DEXTROSE 5%-WATER - 50 ML IVPB ONE ×3 (00:34→14:01)
[2019-01-24] MEDS: ALBUTEROL SO4 2.5/IPRATROPIUM 0.5 INH SOL 3 ML VIAL.NEB. NEB SCH ×6 (00:41→20:56)
[2019-01-24] MEDS: AZTREONAM 1 GM in DEXTROSE 5%-WATER - 50 ML IVPB SCH ×3 (01:01→17:06)
[2019-01-24 05:59] LABS: BASO % 0.4 % (0-2.0); EOS % 2.7 % (0-4.5); HEMATOCRIT 24.9 % (32.4-45.2); HEMOGLOBIN 8.2 GM/dL (10.7-15.3); LYMPH % 21.7 % (8-40); MEAN PLT VOLUME 8.8 fl (7.5-11.1); MONO % 5.9 % (3.8-10.2); NEUT % 69.3 % (42.8-82.8); PLATELET COUNT 81 K/MM3 (134-434); RBC 2.74 M/mm3 (3.60-5.2); RDW 17.9 % (11.6-15.6)
[2019-01-24] MEDS: GABAPENTIN 100 MG CAPSULE (FP) PO SCH ×3 (06:13→21:37)
[2019-01-24 06:14] LABS: PROTHROMBIN TIME (PATIENT) 48.6 SEC (9.7-13.0)
[2019-01-24 06:26] LABS: ARTERIAL BLOOD GAS BASE EXCESS 4.7 meq/l (-2-2); ARTERIAL BLOOD GAS PCO2 35.4 mmHg (35-45); ARTERIAL BLOOD GAS PO2 158 mmHg (80-105); ARTERIAL BLOOD GAS pH 7.51 (7.35-7.45)
[2019-01-24 06:28] LABS: ALLENS TEST POSITIVE
[2019-01-24 06:50] LABS: ALBUMIN 1.5 g/dl (3.4-5.0); BILIRUBIN,TOTAL 0.4 mg/dL (0.2-1); BLOOD UREA NITROGEN 25.8 mg/dL (7-18); CALCIUM 7.4 mg/dL (8.5-10.1); CREATININE 1.6 mg/dL (0.55-1.3); POTASSIUM 4.2 mmol/L (3.5-5.1); PREALBUMIN 10.6 mg/dl (20-40); TOT PROT 3.7 g/dl (6.4-8.2)
[2019-01-24 08:18] LABS: INR 4.06 (0.83-1.09)
--- NOTE | 2019-01-24 08:31 | PN ---
Physical Exam: SUBJECTIVE: Patient seen and examined at bedside. No chest pain, shortness of breath, abdominal pain, intermittently tearful when discussing the pain she feels from her ulcers. OBJECTIVE: Vital Signs Period Temp Pulse Resp BP Sys/Rodriguez Pulse Ox Last 24 Hr 97.6 F 72-117 13-17 93-129/53-92 97-100 General: awake, alert, intermittently tearful CV: S1, S2, RRR Respiratory: CLTA B/L; decrease breath sounds @ bases Abdomen: soft, non-tender, (+) bowel sounds Integumentary: multiple Stage 2/3 ulcers including sacral decub, lower flank; Stage 3 vulvar ulcer in outer labial folds Laboratory Results - last 24 hr 01/23/19 01/23/19 01/23/19 02:45 06:00 07:03 WBC RBC Hgb Hct MCV MCH MCHC RDW Plt Count MPV Absolute Neuts (auto) Neutrophils % Lymphocytes % Monocytes % Eosinophils % Basophils % Nucleated RBC % Retic Count Haptoglobin 188 PT with INR 38.70 H INR 3.24 H Fibrinogen Anticoagulation Therapy Puncture Site ABG pH ABG pCO2 at Pt Temp ABG pO2 at Pt Temp ABG HCO3 ABG O2 Sat (Measured) ABG O2 Content ABG Base Excess Remigio Test O2 Delivery Device Oxygen Flow Rate Vent Mode Vent Rate Mechanical Rate Pressure Support Vent Sodium Potassium Chloride Carbon Dioxide Anion Gap BUN Creatinine Est GFR (CKD-EPI)AfAm Est GFR (CKD-EPI)NonAf Random Glucose Calcium Magnesium Total Bilirubin AST ALT Alkaline Phosphatase Total Protein Albumin Prealbumin Vitamin B12 Serum Folate Free T3 1.1 L Total T3 41.00 L 01/23/19 01/23/19 01/23/19 07:03 15:02 Unknown WBC 2.2 L RBC 3.00 L Hgb 8.9 L Hct 27.8 L D MCV 92.7 MCH 29.7 MCHC 32.0 RDW 18.4 H Plt Count 74 L MPV 9.3 Absolute Neuts (auto) Neutrophils % Lymphocytes % Monocytes % Eosinophils % Basophils % Nucleated RBC % Retic Count 3.30 H D Haptoglobin PT with INR INR Fibrinogen 474.0 Anticoagulation Therapy Puncture Site ABG pH ABG pCO2 at Pt Temp ABG pO2 at Pt Temp ABG HCO3 ABG O2 Sat (Measured) ABG O2 Content ABG Base Excess Remigio Test O2 Delivery Device Oxygen Flow Rate Vent Mode Vent Rate Mechanical Rate Pressure Support Vent Sodium Potassium Chloride Carbon Dioxide Anion Gap BUN Creatinine Est GFR (CKD-EPI)AfAm Est GFR (CKD-EPI)NonAf Random Glucose Calcium Magnesium Total Bilirubin AST ALT Alkaline Phosphatase Total Protein Albumin Prealbumin Vitamin B12 Serum Folate Free T3 Total T3 01/24/19 01/24/19 01/24/19 05:35 05:35 05:35 WBC 1.9 L* RBC 2.74 L Hgb 8.2 L Hct 24.9 L MCV 91.0 MCH 30.0 MCHC 33.0 RDW 17.9 H Plt Count 81 L MPV 8.8 Absolute Neuts (auto) 1.3 L Neutrophils % 69.3 Lymphocytes % 21.7 D Monocytes % 5.9 Eosinophils % 2.7 Basophils % 0.4 Nucleated RBC % 9 H Retic Count Haptoglobin PT with INR 48.60 H INR 4.06 H* Fibrinogen Anticoagulation Therapy Puncture Site ABG pH ABG pCO2 at Pt Temp ABG pO2 at Pt Temp ABG HCO3 ABG O2 Sat (Measured) ABG O2 Content ABG Base Excess Remigio Test O2 Delivery Device Oxygen Flow Rate Vent Mode Vent Rate Mechanical Rate Pressure Support Vent Sodium 147 H Potassium 4.2 Chloride 113 H Carbon Dioxide 31 Anion Gap 4 L BUN 25.8 H Creatinine 1.6 H Est GFR (CKD-EPI)AfAm 32.77 Est GFR (CKD-EPI)NonAf 28.27 Random Glucose 84 Calcium 7.4 L Magnesium 2.0 Total Bilirubin 0.4 AST 15 ALT 22 Alkaline Phosphatase 39 L Total Protein 3.7 L Albumin 1.5 L Prealbumin 10.6 L Vitamin B12 Serum Folate 24 H Free T3 Total T3 01/24/19 01/24/19 05:35 06:10 WBC RBC Hgb Hct MCV MCH MCHC RDW Plt Count MPV Absolute Neuts (auto) Neutrophils % Lymphocytes % Monocytes % Eosinophils % Basophils % Nucleated RBC % Retic Count Haptoglobin PT with INR INR Fibrinogen Anticoagulation Therapy No Result Required. Puncture Site Left radial ABG pH 7.51 H ABG pCO2 at Pt Temp 35.4 ABG pO2 at Pt Temp 158 H ABG HCO3 27.8 H ABG O2 Sat (Measured) 98.0 ABG O2 Content 9.8 L* ABG Base Excess 4.7 H Remigio Test Positive O2 Delivery Device Bipap Oxygen Flow Rate 50% Vent Mode S/t Vent Rate 14 Mechanical Rate Bipap Pressure Support Vent 10/5 Sodium Potassium Chloride Carbon Dioxide Anion Gap BUN Creatinine Est GFR (CKD-EPI)AfAm Est GFR (CKD-EPI)NonAf Random Glucose Calcium Magnesium Total Bilirubin AST ALT Alkaline Phosphatase Total Protein Albumin Prealbumin Vitamin B12 2286 H Serum Folate Free T3 Total T3 Active Medications Generic Name Dose Route Start Last Admin Trade Name Freq PRN Reason Stop Dose Admin Acetaminophen 650 mg 01/22/19 21:35 Tylenol - PO QID PRN PAIN Albuterol/Ipratropium 1 amp 01/23/19 00:00 01/24/19 03:49 Duoneb - NEB 1 amp RQ4H MALIK Administration Chlorhexidine Gluconate 1 applic 01/22/19 22:00 01/23/19 21:30 Hibiclens For Decolonization - TP 1 applic HS MALIK Administration Diltiazem HCl 180 mg 01/23/19 10:00 01/23/19 09:28 Cardizem Cd - PO 180 mg DAILY MALIK Administration Fluconazole 100 mg 01/23/19 10:45 01/23/19 11:39 Diflucan - PO 100 mg DAILY [facility]IK Administration Furosemide 40 mg 01/23/19 10:00 01/23/19 09:28 Lasix - PO 40 mg DAILY MALIK Administration Gabapentin 100 mg 01/22/19 22:00 01/24/19 06:13 Neurontin - PO 100 mg TID MALIK Administration Aztreonam 1 gm/ Dextrose 50 mls @ 100 mls/hr 01/23/19 18:00 01/24/19 01:01 IVPB 100 mls/hr Q8H-IV MALIK Administration Protocol Doxycycline Hyclate 100 mg/ 100 mls @ 100 mls/hr 01/23/19 22:00 01/23/19 21: 32 Dextrose IVPB 100 mls/hr BID MALIK Administration Metoprolol Succinate 50 mg 01/22/19 22:00 01/23/19 21:31 Toprol Xl - PO 50 mg HS MALIK Administration Morphine Sulfate 2 mg 01/23/19 11:40 Morphine Sulfate IVPUSH Q4H PRN PAIN LEVEL 6-10 Multi-Ingredient Lotion 1 applic 01/22/19 22:00 01/23/19 21:30 Eucerin (Small Jar) - TP 1 applic BID [facility]IK Administration Nystatin 1 applic 01/23/19 10:00 01/23/19 10:31 Nystop Powder - TP 1 applic DAILY [facility] Administration Ondansetron HCl 4 mg 01/22/19 21:35 Zofran - PO TID PRN NAUSEA Polyethylene Glycol 17 gm 01/23/19 10:00 01/23/19 09:28 Miralax (For Daily Use) - PO 17 grams DAILY [facility]IK Administration Fluticasone/Salmeterol 1 puff 01/22/19 22:00 01/23/19 21:30 Advair 100mcg/50mcg - IH 1 puff BID MALIK Administration Silver Sulfadiazine 1 applic 01/23/19 10:00 01/23/19 21:31 Silvadene - TP 1 applic BID MALIK Administration Tramadol HCl 50 mg 01/22/19 21:35 Ultram - PO Q8H PRN PAIN LEVEL 6-10 Warfarin Sodium 3 mg 01/23/19 18:00 01/23/19 18:18 Coumadin - PO Not Given DAILY@1800 MALIK ASSESSMENT/PLAN: 88 year old female with a past medical history of anemia, asthma, HTN, HLD, CHF , COPD, afib (s/p ablation and on coumadin), CAD, CKD stage 4, toxic multinodular goiter admitted to the ICU secondary to sepsis from infected groin ulcer resulting in hypoxic respiratory failure in the setting of the patient's COPD, asthma, and tracheal compression. Sepsis secondary to groin/sacral/vulvar ulcers Hypoxic Hypercapneic Respiratory Failure Pancytopenia Anemia requiring transfusion Atrial Fibrillation HTN HLD CHF CKD NEUROLOGIC -mental status returned to normal -hold tramadol 50 q8h prn pain -gabapentin 100mg tid CARDIOLOGY -EKG afib/rvr, rate controlled now -continue home diltiazem 180mg daily -continue home Lasix 40mg daily -continue home Toprol 50mg qhs as BP allows -maintain MAP >65 RESPIRATORY - weaned off BiPap this a.m., patient stable on NC with SpO2 -not stridorous -Advair 1 puff bid -Duoneb q4h -CT shows LLL infiltrate/atelectasis and tracheal compression RENAL -creatinine 1.6 (baseline 2.2-2.3) GASTROINTESTINAL -FOBT assessment for GI bleed GENITOURINARY - barroso in place - multiple stage 2/3 ulcers including sacral decub, flank, vulva - Fluconazole PO for fungal coverage INFECTIOUS DISEASE -not currently febrile -Blood cultures w/Gram Positive cocci -continue Vancomycin/Aztreonam for UTI vs. Infected sacral decub ulcers -Urine Legionella negative; Urine Strep pneumo negative -ID following -sputum cultures HEMATOLOGY - Pancytopenia, with Hb stable @ 8 today s/p 2 units PRBC on 01/22 - could be related to sepsis vs. 2/2 to Methimazole use - continue to trend H/H w/ transfusion goals of Hgb 7, continue to monitor counts - FOBT ordered - iron studies - hold warfarin until confirmed no bleeding LINES -RIJ inserted 01/23 in ED, remove after 7 days PROPHYLAXIS -holding chemical prophylaxis in the setting of anemia -SCDs CODE FULL CODE DISPO - Patient stable for transfer to Telemetry Visit type - Emergency Visit Emergency Visit: No - New Patient This patient is new to me today: Yes Date on this admission: 01/24/19 - Critical Care Critical Care patient: Yes Total Critical Care Time (in minutes): 30 Critical Care Statement: The care of this patient involved high complexity decision making to prevent further life threatening deterioration of the patient 's condition and/or to evaluate & treat vital organ system(s) failure or risk of failure. ATTENDING PHYSICIAN STATEMENT I saw and evaluated the patient. I reviewed the resident's note and discussed the case with the resident. I agree with the resident's findings and plan as documented. SUBJECTIVE: OBJECTIVE: ASSESSMENT AND PLAN:
--- NOTE | 2019-01-24 09:08 | EKG ---
Test Reason : Blood Pressure : / mmHG Vent. Rate : 125 BPM Atrial Rate : 159 BPM P-R Int : 000 ms QRS Dur : 102 ms QT Int : 288 ms P-R-T Axes : 000 -38 160 degrees QTc Int : 415 ms ATRIAL FLUTTER WITH VARIABLE CONDUCTION LEFT AXIS DEVIATION ABNORMAL ECG WHEN COMPARED WITH ECG OF 28-DEC-2018 18:10, COMPARED TO EKG NO SIGNIFICANT CHANGE IS FOUND Confirmed by RUSSELL GARCIA MD ([id number]) on 01/24/2019 9:07:56 AM Referred By: Confirmed By:RUSSELL GARCIA MD
[2019-01-24] MEDS ORDERED: PT OWN MED DRAWER 7, Y5N ONE ×3 (09:18→11:46)
[2019-01-24] MEDS: DOXYCYCLINE INJECTION 100 MG in DEXTROSE 5%-WATER - 100 ML IVPB SCH ×2 (09:26→21:38)
[2019-01-24] MEDS: FUROSEMIDE 40 MG TABLET (FP) PO SCH (09:29)
[2019-01-24] MEDS: POLYETHYLENE GLYCOL 3350 119 GM BTL PO SCH (09:30)
[2019-01-24] MEDS: FLUTICASONE/SALMETEROL 100 MCG/50 MCG DISKUS IH SCH ×2 (09:31→21:36)
[2019-01-24] MEDS: MINERAL OIL/PETROLAT/WATER TOPICAL CREAM 113 GM JAR TP SCH ×2 (09:32→21:36)
[2019-01-24] MEDS: NYSTATIN POWDER 100,000 UNITS/GM - 15 GM TOPICAL POWDER TP SCH (09:33)
[2019-01-24] MEDS: SILVER SULFADIAZINE 1% TOP CREAM 400 GM JAR TP SCH ×2 (09:33→21:37)
[2019-01-24] MEDS: MORPHINE SULFATE 2 MG/ML VIAL IVPUSH PRN (09:34)
[2019-01-24] MEDS ORDERED: morphine CARPU-JECT 4 MG/1 ML DISP.SYRIN IVPUSH ONE (09:55)
[2019-01-24] MEDS ORDERED: morphine SULFATE 4 MG/ML VIAL ONE (09:55)
--- NOTE | 2019-01-24 10:22 | PN ---
Teaching Attending Note Name of Resident: Beba Hutchinson ATTENDING PHYSICIAN STATEMENT I saw and evaluated the patient. I reviewed the resident's note and discussed the case with the resident. I agree with the resident's findings and plan as documented. SUBJECTIVE: Pt seen and examined in the ICU. Off BiPAP, saturating well on nasal cannula. Blood cultures growing gram positive cocci. OBJECTIVE: Vital Signs Period Temp Pulse Resp BP Sys/Rodriguez Pulse Ox Last 24 Hr 97.6 F 72-117 13-17 93-129/53-92 97-100 Intake & Output 01/21/19 01/22/19 01/23/19 01/24/19 23:59 23:59 23:59 23:59 Intake Total 940 285 Output Total 2200 300 Balance -1260 -15 Weight 104.326 kg 101.786 kg 105.279 kg Gen: less tachypneic Heart: RRR Lung: decreased breath sounds at the bases Abd: soft, nontender Ext: no edema CBC, BMP 01/24/19 05:35 01/24/19 05:35 Active Medications Acetaminophen (Tylenol -) 650 mg PO QID PRN PRN Reason: PAIN Albuterol/Ipratropium (Duoneb -) 1 amp NEB RQ4H [facility] Last Admin: 01/24/19 03:49 Dose: 1 amp Chlorhexidine Gluconate (Hibiclens For Decolonization -) 1 applic TP HS [facility] Last Admin: 01/23/19 21:30 Dose: 1 applic Diltiazem HCl (Cardizem Cd -) 180 mg PO DAILY [facility] Last Admin: 01/24/19 09:29 Dose: 180 mg Fluconazole (Diflucan -) 100 mg PO DAILY [facility] Last Admin: 01/23/19 11:39 Dose: 100 mg Furosemide (Lasix -) 40 mg PO DAILY [facility] Last Admin: 01/24/19 09:29 Dose: 40 mg Gabapentin (Neurontin -) 100 mg PO TID [facility] Last Admin: 01/24/19 06:13 Dose: 100 mg Aztreonam 1 gm/ Dextrose 50 mls @ 100 mls/hr IVPB Q8H-IV MALIK; Protocol Last Admin: 01/24/19 09:26 Dose: 100 mls/hr Doxycycline Hyclate 100 mg/ (Dextrose) 100 mls @ 100 mls/hr IVPB BID [facility] Last Admin: 01/24/19 09:26 Dose: 100 mls/hr Metoprolol Succinate (Toprol Xl -) 50 mg PO HS [facility] Last Admin: 01/23/19 21:31 Dose: 50 mg Morphine Sulfate (Morphine Sulfate) 2 mg IVPUSH Q4H PRN PRN Reason: PAIN LEVEL 6-10 Last Admin: 01/24/19 09:34 Dose: 2 mg Morphine Sulfate (Morphine Injection -) 4 mg IVPUSH ONCE ONE Stop: 01/24/19 09:56 Multi-Ingredient Lotion (Eucerin (Small Jar) -) 1 applic TP BID [facility] Last Admin: 01/24/19 09:32 Dose: 1 applic Nystatin (Nystop Powder -) 1 applic TP DAILY [facility] Last Admin: 01/24/19 09:33 Dose: 1 applic Ondansetron HCl (Zofran -) 4 mg PO TID PRN PRN Reason: NAUSEA Polyethylene Glycol (Miralax (For Daily Use) -) 17 gm PO DAILY [facility] Last Admin: 01/24/19 09:30 Dose: 17 grams Fluticasone/Salmeterol (Advair 100mcg/50mcg -) 1 puff IH BID [facility] Last Admin: 01/24/19 09:31 Dose: 1 puff Silver Sulfadiazine (Silvadene -) 1 applic TP BID [facility] Last Admin: 01/24/19 09:33 Dose: 1 applic Tramadol HCl (Ultram -) 50 mg PO Q8H PRN PRN Reason: PAIN LEVEL 6-10 ASSESSMENT AND PLAN: Acute on Chronic Hypoxic Respiratory Failure UTI Sacral Decubitus Infection Gram Positive Bacteremia Sepsis COPD Atrial Fibrillation LV Systolic/Diastolic Dysfunction CKD Pancytopenia Anemia requiring PRBC transfusions Goiter with Tracheal compression - continue antibiotics - f/u cultures - monitor CBC - O2 to keep Spo2 >90% - BiPAP as needed to assist in work of breathing - inhaled bronchodilators - rate control - anticoagulation to target INR 2-3 - DVT prophylaxis - can monitor on floor
[2019-01-24] MEDS ORDERED: FLUCONAZOLE 100 MG TABLET (UD) PO SCH (10:57)
[2019-01-24] MEDS ORDERED: FLUCONAZOLE 50 MG TABLET PO ONE (10:59)
[2019-01-24 11:22] LABS: ANISOCYTOSIS 1+; MACROCYTOSIS 0; PLATELET ESTIMATE DECREASED
[2019-01-24 11:27] LABS: CORRECTED WBC 1.97 K/mm3; WHITE BLOOD COUNT 2.4 K/mm3 (4.0-10.0)
[2019-01-24] MEDS ORDERED: FLUCONAZOLE 150 MG TABLET PO ONE (11:30)
--- NOTE | 2019-01-24 17:52 | PN ---
Progress Note, Physician History of Present Illness: Pt is alert, sitting up eating. States she feels better, less SOB. Low grade fevers Tmax 100.9F. + pain in vaginal/groin region. - Current Medication List Current Medications: Active Medications Acetaminophen (Tylenol -) 650 mg PO QID PRN PRN Reason: PAIN Albuterol/Ipratropium (Duoneb -) 1 amp NEB RQ4H [facility] Last Admin: 01/24/19 12:30 Dose: 1 amp Chlorhexidine Gluconate (Hibiclens For Decolonization -) 1 applic TP HS [facility] Last Admin: 01/23/19 21:30 Dose: 1 applic Diltiazem HCl (Cardizem Cd -) 180 mg PO DAILY [facility] Last Admin: 01/24/19 09:29 Dose: 180 mg Furosemide (Lasix -) 40 mg PO DAILY [facility] Last Admin: 01/24/19 09:29 Dose: 40 mg Gabapentin (Neurontin -) 100 mg PO TID [facility] Last Admin: 01/24/19 14:02 Dose: 100 mg Aztreonam 1 gm/ Dextrose 50 mls @ 100 mls/hr IVPB Q8H-IV [facility]; Protocol Last Admin: 01/24/19 17:06 Dose: 100 mls/hr Doxycycline Hyclate 100 mg/ (Dextrose) 100 mls @ 100 mls/hr IVPB BID [facility] Last Admin: 01/24/19 09:26 Dose: 100 mls/hr Vancomycin HCl (Vancomycin (Pre-Docked)) 1,000 mg in 250 mls @ 166.667 mls/hr IVPB ONCE ONE; Protocol Stop: 01/24/19 19:29 Metoprolol Succinate (Toprol Xl -) 50 mg PO [facility] Last Admin: 01/23/19 21:31 Dose: 50 mg Morphine Sulfate (Morphine Sulfate) 2 mg IVPUSH Q4H PRN PRN Reason: PAIN LEVEL 6-10 Last Admin: 01/24/19 09:34 Dose: 2 mg Multi-Ingredient Lotion (Eucerin (Small Jar) -) 1 applic TP BID [facility] Last Admin: 01/24/19 09:32 Dose: 1 applic Nystatin (Nystop Powder -) 1 applic TP DAILY [facility] Last Admin: 01/24/19 09:33 Dose: 1 applic Ondansetron HCl (Zofran -) 4 mg PO TID PRN PRN Reason: NAUSEA Polyethylene Glycol (Miralax (For Daily Use) -) 17 gm PO DAILY [facility] Last Admin: 01/24/19 09:30 Dose: 17 grams Fluticasone/Salmeterol (Advair 100mcg/50mcg -) 1 puff IH BID [facility] Last Admin: 01/24/19 09:31 Dose: 1 puff Silver Sulfadiazine (Silvadene -) 1 applic TP BID [facility] Last Admin: 01/24/19 09:33 Dose: 1 applic Tramadol HCl (Ultram -) 50 mg PO Q8H PRN PRN Reason: PAIN LEVEL 6-10 - Objective Vital Signs: Vital Signs Temperature 100.3 F H 01/24/19 14:00 Pulse Rate 93 H 01/24/19 16:00 Respiratory Rate 17 01/24/19 16:00 Blood Pressure 96/57 L 01/24/19 16:00 O2 Sat by Pulse Oximetry (%) 100 01/24/19 12:30 Constitutional: Yes: No Distress, Calm Cardiovascular: Yes: Regular Rate and Rhythm Respiratory: Yes: Diminished (decreased BS, poor inspiratory effort) Gastrointestinal: Yes: Normal Bowel Sounds, Soft, Abdomen, Obese Genitourinary: Yes: Gibbons Present (+cloudy urine), Other (erythema/excoriations in groin/vaginal region - pt will not allow full examination of site) Extremities: Yes: WNL Integumentary: Yes: Other (ST II sacral/bilateral buttock ulcers - no purulence/ malodor/necrosis/slough/crepitus/tunneling noted) Wound/Incision: Yes: Other (sacral ulcer +serous drainage) Neurological: Yes: Alert, Oriented Labs: CBC, BMP 01/24/19 05:35 01/24/19 05:35 INR, PTT INR 4.06 (0.83-1.09) H* 01/24/19 05:35 Fibrinogen 474.0 mg/dL (238-498) 01/23/19 07:03 Microbiology 01/23/19 02:45 Urine - Urine Gibbons Urine Culture - Preliminary Non Lactose Fermenting Gnb 01/22/19 20:05 Blood - Peripheral Venous Blood Culture - Preliminary Pending Organism Pending Organism#2 01/22/19 20:05 Blood - Peripheral Venous Blood Culture - Preliminary NO GROWTH OBTAINED AFTER 24 HOURS, INCUBATION TO CONTINUE FOR 4 DAYS. 01/23/19 02:45 Urine - Urine Gibbons Legionella Antigen - Final 01/23/19 02:45 Urine - Urine Gibbons Streptococcus pneumoniae Antigen (M - Final - ....Imaging Chest X-ray: Report Reviewed Cat Scan: Report Reviewed Problem List - Problems (1) Respiratory failure Code(s): J96.90 - RESPIRATORY FAILURE, UNSP, UNSP W HYPOXIA OR HYPERCAPNIA (2) SOB (shortness of breath) Code(s): R06.02 - SHORTNESS OF BREATH (3) Symptomatic anemia Code(s): D64.9 - ANEMIA, UNSPECIFIED (4) Acute on chronic renal failure Code(s): N17.9 - ACUTE KIDNEY FAILURE, UNSPECIFIED; N18.9 - CHRONIC KIDNEY DISEASE, UNSPECIFIED (5) Afib Code(s): I48.91 - UNSPECIFIED ATRIAL FIBRILLATION Qualifiers: Atrial fibrillation type: chronic Qualified Code(s): I48.2 - Chronic atrial fibrillation (6) CHF (NYHA class II, ACC/AHA stage C) Code(s): I50.9 - HEART FAILURE, UNSPECIFIED (7) CKD (chronic kidney disease) Code(s): N18.9 - CHRONIC KIDNEY DISEASE, UNSPECIFIED Qualifiers: Chronic kidney disease stage: stage 4 (severe) Qualified Code(s): N18.4 - Chronic kidney disease, stage 4 (severe) (8) COPD (chronic obstructive pulmonary disease) Code(s): J44.9 - CHRONIC OBSTRUCTIVE PULMONARY DISEASE, UNSPECIFIED Qualifiers: COPD type: unspecified COPD Qualified Code(s): J44.9 - Chronic obstructive pulmonary disease, unspecified (9) Hypercholesteremia Code(s): E78.00 - PURE HYPERCHOLESTEROLEMIA, UNSPECIFIED (10) Hypertension Code(s): I10 - ESSENTIAL (PRIMARY) HYPERTENSION (11) Hyperthyroidism Code(s): E05.90 - THYROTOXICOSIS, UNSP WITHOUT THYROTOXIC CRISIS OR STORM (12) Obese Code(s): E66.9 - OBESITY, UNSPECIFIED (13) Sacral decubitus ulcer, stage II Code(s): L89.152 - PRESSURE ULCER OF SACRAL REGION, STAGE 2 (14) Thyromegaly Code(s): E01.0 - IODINE-DEFICIENCY RELATED DIFFUSE (ENDEMIC) GOITER (15) Tracheal compression Code(s): J39.8 - OTHER SPECIFIED DISEASES OF UPPER RESPIRATORY TRACT (16) UTI (urinary tract infection) Code(s): N39.0 - URINARY TRACT INFECTION, SITE NOT SPECIFIED Qualifiers: Urinary tract infection type: site unspecified Hematuria presence: without hematuria Qualified Code(s): N39.0 - Urinary tract infection, site not specified Assessment/Plan 88 y.o. female with PMH of COPD on home O2, CHF, ASHD, HTN, HLD, CKD, diverticultis/ ? ischemic colitis s/p partial colectomy, s/p JW/BSO, chronic cough/persistent pulmonary infiltrates, multinodular goiter with partial tracheal compression, and anemia presents with c/o worsening SOB over the past week with subjective fever/chills. Fever Gram positive bacteremia UTI Acute hypoxic respiratory failure Possible HCAP Groin rash/excoriations Pancytopenia - ? due to Methimazole Multinodular goiter with partial tracheal compression COPD Hx of CKD AFIB CHF ASHD HTN HLD -- Blood cultures prelim +GPC, will repeat -- Follow up Urine Cx results -- Continue Aztreonam, Doxycycline -- Vancomycin x 1 dose re-ordered, f/u random level in a.m. -- Diflucan given -- Wound care, frequent turning -- monitor cbc/bmp, vitals Pt's daughter at bedside, case discussed at length cc time: 40 min
[2019-01-24] MEDS ORDERED: VANCOMYCIN 1 GRAM (PRE-DOCKED) 1,000 MG/250 ML BAG IVPB ONE (18:00)
--- NOTE | 2019-01-24 19:10 | PN ---
Progress Note, Physician History of Present Illness: Doing a little better today. Per family, has been more interactive. - Current Medication List Current Medications: Active Medications Acetaminophen (Tylenol -) 650 mg PO QID PRN PRN Reason: PAIN Albuterol/Ipratropium (Duoneb -) 1 amp NEB RQ4H [facility] Last Admin: 01/24/19 18:11 Dose: 1 amp Chlorhexidine Gluconate (Hibiclens For Decolonization -) 1 applic TP HS [facility] Last Admin: 01/23/19 21:30 Dose: 1 applic Diltiazem HCl (Cardizem Cd -) 180 mg PO DAILY [facility] Last Admin: 01/24/19 09:29 Dose: 180 mg Furosemide (Lasix -) 40 mg PO DAILY [facility] Last Admin: 01/24/19 09:29 Dose: 40 mg Gabapentin (Neurontin -) 100 mg PO TID [facility] Last Admin: 01/24/19 14:02 Dose: 100 mg Aztreonam 1 gm/ Dextrose 50 mls @ 100 mls/hr IVPB Q8H-IV [facility]; Protocol Last Admin: 01/24/19 17:06 Dose: 100 mls/hr Doxycycline Hyclate 100 mg/ (Dextrose) 100 mls @ 100 mls/hr IVPB BID [facility] Last Admin: 01/24/19 09:26 Dose: 100 mls/hr Vancomycin HCl (Vancomycin (Pre-Docked)) 1,000 mg in 250 mls @ 166.667 mls/hr IVPB ONCE ONE; Protocol Stop: 01/24/19 19:29 Last Admin: 01/24/19 18:08 Dose: 166.667 mls/hr Metoprolol Succinate (Toprol Xl -) 50 mg PO [facility] Last Admin: 01/23/19 21:31 Dose: 50 mg Morphine Sulfate (Morphine Sulfate) 2 mg IVPUSH Q4H PRN PRN Reason: PAIN LEVEL 6-10 Last Admin: 01/24/19 09:34 Dose: 2 mg Multi-Ingredient Lotion (Eucerin (Small Jar) -) 1 applic TP BID [facility] Last Admin: 01/24/19 09:32 Dose: 1 applic Nystatin (Nystop Powder -) 1 applic TP DAILY [facility] Last Admin: 01/24/19 09:33 Dose: 1 applic Ondansetron HCl (Zofran -) 4 mg PO TID PRN PRN Reason: NAUSEA Polyethylene Glycol (Miralax (For Daily Use) -) 17 gm PO DAILY [facility] Last Admin: 01/24/19 09:30 Dose: 17 grams Fluticasone/Salmeterol (Advair 100mcg/50mcg -) 1 puff IH BID [facility] Last Admin: 01/24/19 09:31 Dose: 1 puff Silver Sulfadiazine (Silvadene -) 1 applic TP BID [facility] Last Admin: 01/24/19 09:33 Dose: 1 applic Tramadol HCl (Ultram -) 50 mg PO Q8H PRN PRN Reason: PAIN LEVEL 6-10 - Objective Vital Signs: Vital Signs Temperature 100.3 F H 01/24/19 14:00 Pulse Rate 110 H 01/24/19 18:00 Respiratory Rate 18 01/24/19 18:00 Blood Pressure 98/59 L 01/24/19 18:00 O2 Sat by Pulse Oximetry (%) 100 01/24/19 18:26 Constitutional: Yes: No Distress Eyes: Yes: Conjunctiva Clear Cardiovascular: Yes: Regular Rate and Rhythm Respiratory: Yes: Regular, CTA Bilaterally Labs: CBC, BMP 01/24/19 05:35 01/24/19 05:35 INR, PTT INR 4.06 (0.83-1.09) H* 01/24/19 05:35 Fibrinogen 474.0 mg/dL (238-498) 01/23/19 07:03 Assessment/Plan New pancytopenia since last admission likely 2/2 methimazole vs infection ( blood cultures +, preliminary GPC) Peripheral smear without plt clumps, rare RBC fragments, no immature cells, no obvious e/o dysplasia, few nRBCs noted. Would continue to hold methimazole and trend CBC.
--- NOTE | 2019-01-24 19:11 | CONSULT ---
Consult Consult Specialty:: ENDOCRINE Referred by:: DR.AHMED MIRANDA Reason for Consultation:: HYPERTHYROIDISM GOITER - History of Present Illness Chief Complaint: SHORTNESS OF BREATH/LARGE GOITER History of Present Illness: 88 yrs old F PMH,pmh,toxic goiter substernal extension,DM 2, [place] H/O CAD , Systolic HF, Chronic Afib rate controlled on AC, CKD stage 3-4, Chronic anemia, COPD, recently discharged after a prolonged complicated hospitalization course (from 12/26/2018 to 01/14/2019 treated for COPD excaerbation, Hypoxia, stidor, and CHF exacerbation) patient was Dc on Po methimazole, Prednisone and abx,found to have dyspnea,hypoxia,and pancytopenia, possibly related to bone marrow suppresion,since admission methimazole stopped and blood count and improved. - Past Medical History Cardio/Vascular: Yes: CAD, HTN, Hyperlipdemia Pulmonary: Yes: COPD Gastrointestinal: Yes: Diverticulitis, Diverticulosis, Other (ischemic colitis, h/o colon polyps) Renal/: Yes: Renal Inusuff ...: No Endocrine: Yes: Other (multinodular goiter) - Past Surgical History Past Surgical History: Yes: None, Appendectomy, Colectomy (partial colectomy for perforation from ? diverticulitis/ischemic colitis), Hysterectomy (JW/BSO) - Alcohol/Substance Use Hx Alcohol Use: No History of Substance Use: reports: None - Smoking History Smoking history: Never smoked Have you smoked in the past 12 months: No Aproximately how many cigarettes per day: 0 If you are a former smoker, when did you quit?: many years - Social History Usual Living Arrangement: With Child ADL: Family Assistance History of Recent Travel: No Home Medications - Allergies Allergies/Adverse Reactions: Allergies Allergy/AdvReac Type Severity Reaction Status Date / Time Penicillins Allergy Verified 01/22/19 16:41 procaine Allergy Verified 01/22/19 16:41 - Home Medications Home Medications: Ambulatory Orders Acetaminophen [Tylenol] 650 mg PO QID PRN 12/28/18 Ascorbic Acid [Vitamin C] 500 mg PO DAILY 12/28/18 Aspirin 81 mg PO DAILY 12/28/18 Metoprolol Succinate [Toprol Xl] 50 mg PO HS 12/28/18 Ondansetron HCl [Zofran] 4 mg PO TID PRN 12/28/18 Salmeterol/Fluticasone [Advair 100Mcg/50Mcg -] 1 inh PO BID 12/28/18 Tramadol HCl 50 mg PO BID PRN 12/28/18 Albuterol 2.5/Ipratropium 0.5 [Duoneb -] 1 amp NEB RQ4H amp 01/12/19 Allopurinol [Zyloprim -] 100 mg PO DAILY tablet 01/12/19 Chlorhexidine Gluconate [Hibiclens For Decolonization -] 1 applic TP HS bottle 01/12/19 Furosemide [Lasix -] 40 mg PO DAILY tablet 01/12/19 Gabapentin [Neurontin -] 100 mg PO TID capsule 01/12/19 Methimazole [Tapazole -] 10 mg PO TID tablet 01/12/19 Nystatin Powder [Nystop Powder -] 1 applic TP DAILY applic 01/12/19 Ranitidine [Zantac -] 150 mg PO DAILY tablet 01/12/19 traMADol HCL [Ultram -] 50 mg PO Q8H PRN #30 tablet MDD 2 01/12/19 Diltiazem Cd [Cardizem Cd -] 180 mg PO DAILY cap.cd.24h 01/13/19 predniSONE [Deltasone -] 40 mg PO DAILY tablet 01/13/19 Lanolin Alcohol/Mo/W.pet/Dora [Eucerin Creme] 113 gm TP BID 01/22/19 Polyethylene Glycol 3350 [Miralax (For Daily Use) -] 17 gm PO DAILY 01/22/19 Silver Sulfadiazine 1% Top Cr [Silvadene -] 1 applic TP DAILY 01/22/19 Warfarin Na [Coumadin] 3 mg PO HS 01/22/19 Family Disease History - Family Disease History Family Disease History: CA: Son (colon ca) Review of Systems - Review of Systems Constitutional: reports: Lethargy, Weakness Eyes: reports: No Symptoms HENT: reports: No Symptoms Neck: reports: No Symptoms Cardiovascular: reports: Shortness of Breath Respiratory: reports: Exercise Intolerance, Orthopnea, SOB on Exertion Gastrointestinal: reports: No Symptoms Genitourinary: reports: No Symptoms Musculoskeletal: reports: Extremity Pain, Muscle Cramps, Muscle Weakness Neurological: reports: Numbness, Weakness Endocrine: reports: Unexplained Weight Gain Physical Exam Vital Signs: Vital Signs Temperature 100.3 F H 01/24/19 14:00 Pulse Rate 110 H 01/24/19 18:00 Respiratory Rate 18 01/24/19 18:00 Blood Pressure 98/59 L 01/24/19 18:00 O2 Sat by Pulse Oximetry (%) 100 01/24/19 18:26 Constitutional: Yes: Calm Eyes: Yes: EOM Intact HENT: Yes: Normocephalic Neck: Yes: Thyromegaly Cardiovascular: Yes: Tachycardia Respiratory: Yes: SOB, Tachypnea Gastrointestinal: Yes: Normal Bowel Sounds ...Rectal Exam: Yes: Deferred Renal/: Yes: WNL Musculoskeletal: Yes: Muscle Pain, Muscle Weakness Extremities: Yes: Delayed Capillary Refill Edema: LLE: 2+, RLE: 2+ Labs: CBC, BMP 01/24/19 05:35 01/24/19 05:35 Problem List - Problems (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 Assessment/Plan Current Active Problems toxic goiter hyperthyroidism Anemia (Acute) Malnutrition (Acute) Pancytopenia (Acute) Pressure ulcer (Acute) Respiratory failure (Acute) SOB (shortness of breath) (Acute) Symptomatic anemia (Acute) Abnormal Lab Results 01/23/19 01/24/19 01/24/19 07:03 05:35 05:35 WBC 2.4 L RBC 2.74 L Hgb 8.2 L Hct 24.9 L RDW 17.9 H Plt Count 81 L Absolute Neuts (auto) 1.3 L Monocytes % (Manual) 3 L Nucleated RBC % 22 H* PT with INR 48.60 H INR 4.06 H* ABG pH ABG pO2 at Pt Temp ABG HCO3 ABG O2 Content ABG Base Excess Sodium Chloride Anion Gap BUN Creatinine Calcium Alkaline Phosphatase Total Protein Albumin Prealbumin Vitamin B12 Serum Folate Free T3 1.1 L Total T3 41.00 L 01/24/19 01/24/19 01/24/19 05:35 05:35 06:10 WBC RBC Hgb Hct RDW Plt Count Absolute Neuts (auto) Monocytes % (Manual) Nucleated RBC % PT with INR INR ABG pH 7.51 H ABG pO2 at Pt Temp 158 H ABG HCO3 27.8 H ABG O2 Content 9.8 L* ABG Base Excess 4.7 H Sodium 147 H Chloride 113 H Anion Gap 4 L BUN 25.8 H Creatinine 1.6 H Calcium 7.4 L Alkaline Phosphatase 39 L Total Protein 3.7 L Albumin 1.5 L Prealbumin 10.6 L Vitamin B12 2286 H Serum Folate 24 H Free T3 Total T3 plan: stop methimazole follow tfts as hyperthyroidism may recur may need i131 as out patient
--- NOTE | 2019-01-24 20:12 | CONS ---
DATE OF CONSULTATION: DATE OF DICTATION: 01/24/2019 FOLLOWUP ORDERED BY: Ira Cho MD CARDIOLOGY FOLLOWUP CHIEF COMPLAINT: Shortness of breath. The patient is an 88-year-old female with history of hypertension, hypertensive cardiovascular disease, coronary artery disease, angina pectoris, bronchial asthma, chronic bronchitis, chronic obstructive pulmonary disease, atrial fibrillation, hypercholesterolemia, peripheral neuropathy, gastroesophageal reflux disease, extensive osteoarthritis, history of multinodular goiter with significant extension in the retrosternal space. The patient has been experiencing persistent nonproductive cough without any significant improvement and now admitted with increasing shortness of breath, has fungal infestation and decubitus ulcerations. She is currently on high-flow oxygen. She continues to have dyspnea and persistent cough. She denies any recent chest pain or discomfort. Please refer to consultation done on December 29, 2018. CURRENT MEDICATION: 1. Zofran 4 mg p.o. t.i.d. p.r.n. 2. Advair 100/50 mcg 1 inhalation b.i.d. 3. Acetaminophen 650 mg p.o. q.i.d. 4. Aztreonam 1 g IV q.8 h. 5. Doxycycline 100 mg IV b.i.d. 6. Gabapentin 100 mg p.o. t.i.d. 7. Eucerin 1 application b.i.d. 8. DuoNeb 1 ampule via nebulizer q.4 h. 9. Metoprolol succinate 50 mg p.o. daily. 10. Diltiazem 180 mg daily. 11. MiraLax 17 g p.o. daily. 12. Chlorhexidine gluconate 1 application nightly. 13. Silver sulfadiazine 1 application b.i.d. 14. Furosemide 40 mg p.o. daily. 15. Morphine sulfate 2 mg IV push q.4 h. p.r.n. 16. Tramadol 50 mg q.8 h. p.r.n. Patient on admission was found to have pancytopenia with a hemoglobin of 5.7 g/dL and required a blood transfusion. EXAMINATION: General: An 88-year-old lethargic female, on high-flow O2 therapy. There is pallor. No cyanosis, clubbing, or jaundice. Vital Signs: On January 24, 2019, blood pressure 104/61 mmHg. Pulse 94 beats per minute and irregularly irregular. Respirations 14 per minute. Temperature 100.3 degrees Fahrenheit. Neck: Supple. Slightly positive hepatojugular reflux. No JVD. Carotids were 2+. Upstrokes were normal. There was fullness around the thyroid gland. Trachea was midline. Heart: PMI could not be localized. Heart sounds were distant. No murmur or gallops were appreciated due to heart sounds being obscured by coarse breath sounds and wheezing. Lungs: Bilateral expiratory wheezing and bilateral crepitations. Abdomen: Obese, soft and nontender. No hepatosplenomegaly or palpable masses were felt. Bowel sounds were decreased. Extremities: No calf tenderness. Bilateral pedal edema 2+, pretibial edema 1+. Dorsalis pedis and posterior tibial pulses could not be palpated. Femoral pulses were 1 to 2+. LABORATORY DATA: X-ray of chest, January 22, 2019, portable: Single AP view of the chest has been submitted since January 14, 2019. Again noted is a weak inspiratory effort with resultant large heart, unfolded aorta, and increased congestive changes. There is slightly elevated right hemidiaphragm. Correlation recommended. ECG, January 22, 2019, reported as atrial flutter with variable conduction, left axis deviation, abnormal ECG. Compared with ECG of December 28, 2018, no significant change is found. CT scan of the chest, January 23, 2019: Impression: Interval worsening bibasilar atelectatic changes with suggestion of minimal bilateral pleural effusions, right more than left, suspicious for pneumonia. Note is made of significant subcutaneous edema in included portions of the left flank, simple cyst in included portion of both kidneys. Diverticulosis coli in splenic flexure of the colon without evidence of acute diverticulitis. Left adrenal nodule measuring 2.4 x 1.6 cm, likely an adrenal adenoma. Note again made of a large left thyroid mass with irregular contour, measuring 3.8 cm, for which further evaluation with thyroid ultrasound is needed. The preliminary report was [facility] [employer] [facility]. CBC January 23, 2019: WBC count 2200, hemoglobin 5.7 g/dL, hematocrit 18.4%, platelet count 76%. Repeat CBC January 24, 2019: WBC 2400, hemoglobin 8.2 g/dL, hematocrit 24.9%, platelet count 51,000, enucleated RBCs 22%. Electrolytes: Sodium 147, potassium 4.2, chloride 113, CO2 31 mmol/L, BUN 25.8, creatinine 1.6 mg/dL, random glucose 84 mg/dL, total calcium 7.4 g/dL, total protein 3.7, albumin 1.5 (low). Total iron 17, TIBC 173, iron saturation 9, unsaturated IBC 156. Vitamin B12 2286 pcg/dL. Free T4 1.24. BNP was not available. IMPRESSION: 1. Permanent atrial flutter/atrial fibrillation with controlled ventricular response. 2. Chronic obstructive pulmonary disease/chronic bronchitis. 3. 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 4. Congestive heart failure. 5. Hypertension, hypertensive cardiovascular disease, currently normotensive. 6. Hypercholesterolemia. 7. History of coronary artery disease, angina pectoris. 8. History of syncope. 9. Severe pancytopenia, etiology to be determined. RECOMMENDATIONS: 1. Continue diuretics, mainly to increase the dose of Lasix. 2. BNP. 3. Follow up with ENT. 4. Hematological evaluation. Thank you. Sincerely. ANAMARIA BOLAÑOS M.D. [id number]
[2019-01-24] MEDS: CHLORHEXIDINE GLUCONATE 4% CLEANSER FOR DECOLONIZATION TP SCH (21:37)
[2019-01-25] MEDS: ALBUTEROL SO4 2.5/IPRATROPIUM 0.5 INH SOL 3 ML VIAL.NEB. NEB SCH ×6 (00:11→21:07)
[2019-01-25] MEDS ORDERED: AZTREONAM 1 GM VIAL (RESTRICTED TO ID) ONE ×2 (01:57→10:24)
[2019-01-25] MEDS ORDERED: DEXTROSE 5%-WATER - 50 ML IVPB ONE ×2 (01:58→10:25)
[2019-01-25] MEDS: AZTREONAM 1 GM in DEXTROSE 5%-WATER - 50 ML IVPB SCH ×2 (02:06→10:27)
[2019-01-25] MEDS: MORPHINE SULFATE 2 MG/ML VIAL IVPUSH PRN ×2 (04:32→15:25)
[2019-01-25] MEDS: GABAPENTIN 100 MG CAPSULE (FP) PO SCH ×3 (06:05→21:27)
[2019-01-25 07:15] LABS: BLOOD UREA NITROGEN 28.5 mg/dL (7-18); CALCIUM 7.5 mg/dL (8.5-10.1); CREATININE 1.8 mg/dL (0.55-1.3)
[2019-01-25 07:51] LABS: INR 3.41 (0.83-1.09); PROTHROMBIN TIME (PATIENT) 40.7 SEC (9.7-13.0)
[2019-01-25 08:18] LABS: BASO % 0.3 % (0-2.0); EOS % 1.8 % (0-4.5); HEMATOCRIT 24.2 % (32.4-45.2); HEMOGLOBIN 7.9 GM/dL (10.7-15.3); LYMPH % 20.9 % (8-40); MCH 30.1 pg (25.7-33.7); MCHC 32.7 g/dl (32.0-36.0); MEAN CELL VOLUME 92.1 fl (80-96); MEAN PLT VOLUME 9.2 fl (7.5-11.1); MONO % 5.1 % (3.8-10.2); NEUT % 71.9 % (42.8-82.8); PLATELET COUNT 99 K/MM3 (134-434); RBC 2.63 M/mm3 (3.60-5.2); RDW 19.1 % (11.6-15.6); WHITE BLOOD COUNT 3.5 K/mm3 (4.0-10.0)
[2019-01-25] MEDS ORDERED: PT OWN MED DRAWER 7, Y5N ONE ×2 (10:26→17:30)
[2019-01-25] MEDS: FUROSEMIDE 40 MG TABLET (FP) PO SCH (10:27)
[2019-01-25] MEDS: POLYETHYLENE GLYCOL 3350 119 GM BTL PO SCH (10:28)
[2019-01-25] MEDS: DOXYCYCLINE INJECTION 100 MG in DEXTROSE 5%-WATER - 100 ML IVPB SCH ×2 (10:28→21:30)
[2019-01-25] MEDS: FLUTICASONE/SALMETEROL 100 MCG/50 MCG DISKUS IH SCH ×2 (10:32→21:31)
[2019-01-25] MEDS: SILVER SULFADIAZINE 1% TOP CREAM 400 GM JAR TP SCH ×2 (10:33→21:28)
[2019-01-25] MEDS: NYSTATIN POWDER 100,000 UNITS/GM - 15 GM TOPICAL POWDER TP SCH (10:33)
[2019-01-25] MEDS: MINERAL OIL/PETROLAT/WATER TOPICAL CREAM 113 GM JAR TP SCH (10:33)
--- NOTE | 2019-01-25 11:08 | PN ---
Physical Exam: HEME/ONC SUBJECTIVE: Patient seen and examined. Offers no complaints today. Says she feels better today compared to yesterday. OBJECTIVE: Vital Signs Period Temp Pulse Resp BP Sys/Rodriguez Pulse Ox Last 24 Hr 99.2 F-100.3 F 83-110 10-18 81-108/49-68 98-100 GENERAL: a/o x 3 EYES: PERRL, +cataracts ENT: oropharynx clear without exudates, dry mucous membranes. NECK: supple. + R IJ line LUNGS: lungs clear to auscultation HEART: irregular rhythm ABDOMEN: obese, soft, RUQ tenderness to deep palpation. no guarding. EXTREMITIES: 2+ pulses, +edema Back: multiple small sacral ulcers Refused breast examination. Laboratory Results - last 24 hr 01/24/19 01/25/19 01/25/19 05:35 06:20 06:20 WBC 2.4 L 3.5 L Corrected WBC (auto) 1.97 RBC 2.63 L Hgb 7.9 L Hct 24.2 L MCV 92.1 MCH 30.1 MCHC 32.7 RDW 19.1 H Plt Count 99 L D MPV 9.2 Absolute Neuts (auto) 2.5 Neutrophils % 71.9 Neutrophils % (Manual) 78.1 Band Neutrophils % 0.0 Lymphocytes % 20.9 Lymphocytes % (Manual) 16.7 D Monocytes % 5.1 Monocytes % (Manual) 3 L Eosinophils % 1.8 Eosinophils % (Manual) 0.0 D Basophils % 0.3 Basophils % (Manual) 0.0 Myelocytes % (Man) 0 Promyelocytes % (Man) 1 D Blast Cells % (Manual) 0 Nucleated RBC % 22 H* 5 H Metamyelocytes 0 Hypochromia 1+ Platelet Estimate Decreased Polychromasia 1+ Poikilocytosis 0 Anisocytosis 1+ Microcytosis 1+ Macrocytosis 0 PT with INR INR Sodium Potassium Chloride Carbon Dioxide Anion Gap BUN Creatinine Est GFR (CKD-EPI)AfAm Est GFR (CKD-EPI)NonAf Random Glucose Calcium Random Vancomycin 12.6 L 01/25/19 01/25/19 06:20 06:20 WBC Corrected WBC (auto) RBC Hgb Hct MCV MCH MCHC RDW Plt Count MPV Absolute Neuts (auto) Neutrophils % Neutrophils % (Manual) Band Neutrophils % Lymphocytes % Lymphocytes % (Manual) Monocytes % Monocytes % (Manual) Eosinophils % Eosinophils % (Manual) Basophils % Basophils % (Manual) Myelocytes % (Man) Promyelocytes % (Man) Blast Cells % (Manual) Nucleated RBC % Metamyelocytes Hypochromia Platelet Estimate Polychromasia Poikilocytosis Anisocytosis Microcytosis Macrocytosis PT with INR 40.70 H INR 3.41 H Sodium 143 Potassium 4.0 Chloride 108 H Carbon Dioxide 29 Anion Gap 6 L BUN 28.5 H Creatinine 1.8 H Est GFR (CKD-EPI)AfAm 28.42 Est GFR (CKD-EPI)NonAf 24.52 Random Glucose 113 H Calcium 7.5 L Random Vancomycin Active Medications Generic Name Dose Route Start Last Admin Trade Name Freq PRN Reason Stop Dose Admin Acetaminophen 650 mg 01/22/19 21:35 Tylenol - PO QID PRN PAIN Albuterol/Ipratropium 1 amp 01/23/19 00:00 01/25/19 08:00 Duoneb - NEB 1 amp RQ4H MALIK Administration Chlorhexidine Gluconate 1 applic 01/22/19 22:00 01/24/19 21:37 Hibiclens For Decolonization - TP 1 applic HS MALIK Administration Diltiazem HCl 180 mg 01/23/19 10:00 01/25/19 10:27 Cardizem Cd - PO 180 mg DAILY MALIK Administration Furosemide 40 mg 01/23/19 10:00 01/25/19 10:27 Lasix - PO 40 mg DAILY MALIK Administration Gabapentin 100 mg 01/22/19 22:00 01/25/19 06:05 Neurontin - PO 100 mg TID MALIK Administration Aztreonam 1 gm/ Dextrose 50 mls @ 100 mls/hr 01/23/19 18:00 01/25/19 10:27 IVPB 100 mls/hr Q8H-IV MALIK Administration Protocol Doxycycline Hyclate 100 mg/ 100 mls @ 100 mls/hr 01/23/19 22:00 01/25/19 10: 28 Dextrose IVPB 100 mls/hr BID MALIK Administration Metoprolol Succinate 50 mg 01/22/19 22:00 01/24/19 21:38 Toprol Xl - PO 50 mg HS MALIK Administration Morphine Sulfate 2 mg 01/23/19 11:40 01/25/19 04:32 Morphine Sulfate IVPUSH 2 mg Q4H PRN Administration PAIN LEVEL 6-10 Multi-Ingredient Lotion 1 applic 01/22/19 22:00 01/25/19 10:33 Eucerin (Small Jar) - TP 1 applic BID MALIK Administration Nystatin 1 applic 01/23/19 10:00 01/25/19 10:33 Nystop Powder - TP 1 applic DAILY MALIK Administration Ondansetron HCl 4 mg 01/22/19 21:35 Zofran - PO TID PRN NAUSEA Polyethylene Glycol 17 gm 01/23/19 10:00 01/25/19 10:28 Miralax (For Daily Use) - PO 17 grams DAILY MALIK Administration Fluticasone/Salmeterol 1 puff 01/22/19 22:00 01/25/19 10:32 Advair 100mcg/50mcg - IH 1 puff BID MALIK Administration Silver Sulfadiazine 1 applic 01/23/19 10:00 01/25/19 10:33 Silvadene - TP 1 applic BID MALIK Administration Tramadol HCl 50 mg 01/22/19 21:35 Ultram - PO Q8H PRN PAIN LEVEL 6-10 ASSESSMENT/PLAN: #Pancytopenia #Gram + Bacteremia #ESBL UTI #CKD #A-fib -PLT count improved to 99 from 81, 74 -Hgb stable -Monitor CBC -on abx -Methimazole held ATTENDING PHYSICIAN STATEMENT I saw and evaluated the patient. I reviewed the resident's note and discussed the case with the resident. I agree with the resident's findings and plan as documented. SUBJECTIVE: OBJECTIVE: ASSESSMENT AND PLAN:
--- NOTE | 2019-01-25 12:14 | PN ---
Teaching Attending Note Name of Resident: Santos Landeros ATTENDING PHYSICIAN STATEMENT I saw and evaluated the patient. I reviewed the resident's note and discussed the case with the resident. I agree with the resident's findings and plan as documented. SUBJECTIVE: Pt seen and examined in the ICU. Breathing better today. Still with pain at ulcer site. OBJECTIVE: Vital Signs Period Temp Pulse Resp BP Sys/Rodriguez Pulse Ox Last 24 Hr 99.2 F-100.3 F 83-110 10-18 81-104/49-68 98-100 Intake & Output 01/22/19 01/23/19 01/24/19 01/25/19 23:59 23:59 23:59 23:59 Intake Total 940 1963 70 Output Total 2200 1250 100 Balance -1260 713 -30 Weight 104.326 kg 101.786 kg 105.233 kg 104.236 kg Gen: less tachypneic Heart: RRR Lung: scattered rhonchi Abd: soft, nontender Ext: no edema CBC, BMP 01/25/19 06:20 01/25/19 06:20 Active Medications Acetaminophen (Tylenol -) 650 mg PO QID PRN PRN Reason: PAIN Albuterol/Ipratropium (Duoneb -) 1 amp NEB RQ4H [facility] Last Admin: 01/25/19 08:00 Dose: 1 amp Chlorhexidine Gluconate (Hibiclens For Decolonization -) 1 applic TP HS [facility] Last Admin: 01/24/19 21:37 Dose: 1 applic Diltiazem HCl (Cardizem Cd -) 180 mg PO DAILY [facility] Last Admin: 01/25/19 10:27 Dose: 180 mg Furosemide (Lasix -) 40 mg PO DAILY [facility] Last Admin: 01/25/19 10:27 Dose: 40 mg Gabapentin (Neurontin -) 100 mg PO TID [facility] Last Admin: 01/25/19 06:05 Dose: 100 mg Aztreonam 1 gm/ Dextrose 50 mls @ 100 mls/hr IVPB Q8H-IV MALIK; Protocol Last Admin: 01/25/19 10:27 Dose: 100 mls/hr Doxycycline Hyclate 100 mg/ (Dextrose) 100 mls @ 100 mls/hr IVPB BID [facility] Last Admin: 01/25/19 10:28 Dose: 100 mls/hr Metoprolol Succinate (Toprol Xl -) 50 mg PO HS [facility] Last Admin: 01/24/19 21:38 Dose: 50 mg Morphine Sulfate (Morphine Sulfate) 2 mg IVPUSH Q4H PRN PRN Reason: PAIN LEVEL 6-10 Last Admin: 01/25/19 04:32 Dose: 2 mg Multi-Ingredient Lotion (Eucerin (Small Jar) -) 1 applic TP BID [facility] Last Admin: 01/25/19 10:33 Dose: 1 applic Nystatin (Nystop Powder -) 1 applic TP DAILY [facility] Last Admin: 01/25/19 10:33 Dose: 1 applic Ondansetron HCl (Zofran -) 4 mg PO TID PRN PRN Reason: NAUSEA Polyethylene Glycol (Miralax (For Daily Use) -) 17 gm PO DAILY [facility] Last Admin: 01/25/19 10:28 Dose: 17 grams Fluticasone/Salmeterol (Advair 100mcg/50mcg -) 1 puff IH BID [facility] Last Admin: 01/25/19 10:32 Dose: 1 puff Silver Sulfadiazine (Silvadene -) 1 applic TP BID [facility] Last Admin: 01/25/19 10:33 Dose: 1 applic Tramadol HCl (Ultram -) 50 mg PO Q8H PRN PRN Reason: PAIN LEVEL 6-10 ASSESSMENT AND PLAN: Acute on Chronic Hypoxic Respiratory Failure UTI Sacral Decubitus Infection Gram Positive Bacteremia Sepsis COPD Atrial Fibrillation LV Systolic/Diastolic Dysfunction CKD Pancytopenia Anemia requiring PRBC transfusions Goiter with Tracheal compression - continue antibiotics - f/u cultures - surgical eval for ulcers - monitor CBC - O2 to keep Spo2 >90% - BiPAP as needed to assist in work of breathing - inhaled bronchodilators - rate control - anticoagulation to target INR 2-3 - DVT prophylaxis - can monitor on floor
--- NOTE | 2019-01-25 13:22 | PN ---
Physical Exam: SUBJECTIVE: Patient seen and examined at the bedside. States that her breathing is better and is more comfortable than yesterday. Continues to complain of pain at the ulcer sites. Denies chest pain, palpitations, abd pain, n/v, headaches, dizziness, lightheadedness, fever, chills. Stable for transfer to [facility]surg. OBJECTIVE: Vital Signs Period Temp Pulse Resp BP Sys/Rodriguez Pulse Ox Last 24 Hr 99.2 F-100.3 F 83-110 10-18 81-104/49-68 98-100 GENERAL: A&Ox3, intermittently upset with pain from ulcers. EYES: PERRLA, EOMI ENT: Dry mucus membranes NECK: No JVD noted LUNGS: Diffuse rhonchi noted bilaterally, no wheezes, no stridor noted. HEART: irregular, s1s2, no murmurs ABDOMEN: Obese, Soft, nontender, BS present MUSCULOSKELETAL: No CVA Tenderness, stage II ulcers noted on sacrum, thigh, labia EXTREMITIES: 2+ pulses, 1+ edema bilaterally NEUROLOGICAL: Cranial nerves II-XII intact. Decreased muscle strength bilaterally and evenly L and R. Laboratory Results - last 24 hr 01/25/19 01/25/19 01/25/19 06:20 06:20 06:20 WBC 3.5 L RBC 2.63 L Hgb 7.9 L Hct 24.2 L MCV 92.1 MCH 30.1 MCHC 32.7 RDW 19.1 H Plt Count 99 L D MPV 9.2 Absolute Neuts (auto) 2.5 Neutrophils % 71.9 Lymphocytes % 20.9 Monocytes % 5.1 Eosinophils % 1.8 Basophils % 0.3 Nucleated RBC % 5 H PT with INR 40.70 H INR 3.41 H Sodium Potassium Chloride Carbon Dioxide Anion Gap BUN Creatinine Est GFR (CKD-EPI)AfAm Est GFR (CKD-EPI)NonAf Random Glucose Calcium Random Vancomycin 12.6 L 01/25/19 06:20 WBC RBC Hgb Hct MCV MCH MCHC RDW Plt Count MPV Absolute Neuts (auto) Neutrophils % Lymphocytes % Monocytes % Eosinophils % Basophils % Nucleated RBC % PT with INR INR Sodium 143 Potassium 4.0 Chloride 108 H Carbon Dioxide 29 Anion Gap 6 L BUN 28.5 H Creatinine 1.8 H Est GFR (CKD-EPI)AfAm 28.42 Est GFR (CKD-EPI)NonAf 24.52 Random Glucose 113 H Calcium 7.5 L Random Vancomycin Active Medications Generic Name Dose Route Start Last Admin Trade Name Freq PRN Reason Stop Dose Admin Acetaminophen 650 mg 01/22/19 21:35 Tylenol - PO QID PRN PAIN Albuterol/Ipratropium 1 amp 01/23/19 00:00 01/25/19 08:00 Duoneb - NEB 1 amp RQ4H MALIK Administration Chlorhexidine Gluconate 1 applic 01/22/19 22:00 01/24/19 21:37 Hibiclens For Decolonization - TP 1 applic HS MALIK Administration Diltiazem HCl 180 mg 01/23/19 10:00 01/25/19 10:27 Cardizem Cd - PO 180 mg DAILY MALIK Administration Furosemide 40 mg 01/23/19 10:00 01/25/19 10:27 Lasix - PO 40 mg DAILY MALIK Administration Gabapentin 100 mg 01/22/19 22:00 01/25/19 06:05 Neurontin - PO 100 mg TID MALIK Administration Aztreonam 1 gm/ Dextrose 50 mls @ 100 mls/hr 01/23/19 18:00 01/25/19 10:27 IVPB 100 mls/hr Q8H-IV MALIK Administration Protocol Doxycycline Hyclate 100 mg/ 100 mls @ 100 mls/hr 01/23/19 22:00 01/25/19 10: 28 Dextrose IVPB 100 mls/hr BID MALIK Administration Metoprolol Succinate 50 mg 01/22/19 22:00 01/24/19 21:38 Toprol Xl - PO 50 mg HS MALIK Administration Morphine Sulfate 2 mg 01/23/19 11:40 01/25/19 04:32 Morphine Sulfate IVPUSH 2 mg Q4H PRN Administration PAIN LEVEL 6-10 Multi-Ingredient Lotion 1 applic 01/22/19 22:00 01/25/19 10:33 Eucerin (Small Jar) - TP 1 applic BID MALIK Administration Nystatin 1 applic 01/23/19 10:00 01/25/19 10:33 Nystop Powder - TP 1 applic DAILY MALIK Administration Ondansetron HCl 4 mg 01/22/19 21:35 Zofran - PO TID PRN NAUSEA Polyethylene Glycol 17 gm 01/23/19 10:00 01/25/19 10:28 Miralax (For Daily Use) - PO 17 grams DAILY MALIK Administration Fluticasone/Salmeterol 1 puff 01/22/19 22:00 01/25/19 10:32 Advair 100mcg/50mcg - IH 1 puff BID MALIK Administration Silver Sulfadiazine 1 applic 01/23/19 10:00 01/25/19 10:33 Silvadene - TP 1 applic BID MALIK Administration Tramadol HCl 50 mg 01/22/19 21:35 Ultram - PO Q8H PRN PAIN LEVEL 6-10 ASSESSMENT/PLAN: Judy Machado is an 88 year old female with a past medical history of anemia, asthma, HTN, HLD, CHF, COPD, afib (s/p ablation and on coumadin), CAD, CKD stage 4, toxic multinodular goiter admitted to the ICU secondary to sepsis from infected groin ulcer resulting in hypoxic respiratory failure in the setting of the patient's COPD, asthma, and tracheal compression. Sepsis secondary to groin/sacral/vulvar ulcers Hypoxic Hypercapneic Respiratory Failure Pancytopenia Anemia requiring transfusion Atrial Fibrillation HTN HLD CHF CKD NEUROLOGIC -mental status returned to normal -hold tramadol 50 q8h prn pain -gabapentin 100mg tid CARDIOLOGY -EKG afib/rvr, rate controlled now - last echo EF 45% 12/29/18 -continue home diltiazem 180mg daily -continue home Lasix 40mg daily -continue home Toprol 50mg qhs as BP allows -maintain MAP >65 -caution with starting fluids in setting of CHF RESPIRATORY -patient stable on NC with SpO2 -BiPAP as needed during the night -not stridorous -Advair 1 puff bid -Duoneb q4h -CT shows LLL infiltrate/atelectasis and tracheal compression RENAL -creatinine 1.8 (baseline 2.2-2.3) GASTROINTESTINAL -FOBT assessment for GI bleed GENITOURINARY - barroso in place - multiple stage 2/3 ulcers including sacral decub, flank, vulva - Fluconazole PO for fungal coverage INFECTIOUS DISEASE -not currently febrile -Blood cultures w/Gram Positive cocci -change abx to meropenem for UTI vs. Infected sacral decub ulcers -Urine Legionella negative; Urine Strep pneumo negative -urine cxs showing ESBL -ID following -sputum cultures - silver sulfadiazine to ulcers - Dr. Sanchez consulted for ulcerations HEMATOLOGY - Pancytopenia, with improvement of WBC, Hgb, plts since discontinuation of methimazole - could be related to sepsis vs. 2/2 to Methimazole use - continue to trend H/H w/ transfusion goals of Hgb 7, continue to monitor counts - FOBT ordered - iron studies showing likely anemia of chronic disease - hold warfarin until confirmed no bleeding, continue to hold in setting of elevated INR LINES -RIJ inserted 01/23 in ED, remove after 7 days PROPHYLAXIS -holding chemical prophylaxis in the setting of anemia and elevated INR -SCDs CODE - FULL CODE DISPO - Patient stable for transfer to med-surg Problem List - Problems (1) Respiratory failure Code(s): J96.90 - RESPIRATORY FAILURE, UNSP, UNSP W HYPOXIA OR HYPERCAPNIA (2) Symptomatic anemia Code(s): D64.9 - ANEMIA, UNSPECIFIED (3) Altered mental status Code(s): R41.82 - ALTERED MENTAL STATUS, UNSPECIFIED (4) Atrial fibrillation with RVR Code(s): I48.91 - UNSPECIFIED ATRIAL FIBRILLATION (5) CKD stage 4 secondary to hypertension Code(s): I12.9 - HYPERTENSIVE CHRONIC KIDNEY DISEASE W STG 1-4/UNSP CHR KDNY; N18.4 - CHRONIC KIDNEY DISEASE, STAGE 4 (SEVERE) (6) COPD (chronic obstructive pulmonary disease) Code(s): J44.9 - CHRONIC OBSTRUCTIVE PULMONARY DISEASE, UNSPECIFIED Qualifiers: COPD type: unspecified COPD Qualified Code(s): J44.9 - Chronic obstructive pulmonary disease, unspecified (7) SOB (shortness of breath) Code(s): R06.02 - SHORTNESS OF BREATH Visit type - Emergency Visit Emergency Visit: No - New Patient This patient is new to me today: No - Critical Care Critical Care patient: No
[2019-01-25 13:36] LABS: ANISOCYTOSIS 1+; MACROCYTOSIS 0; PLATELET ESTIMATE DECREASED
--- NOTE | 2019-01-25 13:58 | PN ---
Progress Note, Physician History of Present Illness: does not feel too well - Current Medication List Current Medications: Active Medications Acetaminophen (Tylenol -) 650 mg PO QID PRN PRN Reason: PAIN Albuterol/Ipratropium (Duoneb -) 1 amp NEB RQ4H [facility] Last Admin: 01/25/19 12:00 Dose: 1 amp Chlorhexidine Gluconate (Hibiclens For Decolonization -) 1 applic TP HS [facility] Last Admin: 01/24/19 21:37 Dose: 1 applic Diltiazem HCl (Cardizem Cd -) 180 mg PO DAILY [facility] Last Admin: 01/25/19 10:27 Dose: 180 mg Furosemide (Lasix -) 40 mg PO DAILY [facility] Last Admin: 01/25/19 10:27 Dose: 40 mg Gabapentin (Neurontin -) 100 mg PO TID [facility] Last Admin: 01/25/19 06:05 Dose: 100 mg Aztreonam 1 gm/ Dextrose 50 mls @ 100 mls/hr IVPB Q8H-IV [facility]; Protocol Last Admin: 01/25/19 10:27 Dose: 100 mls/hr Doxycycline Hyclate 100 mg/ (Dextrose) 100 mls @ 100 mls/hr IVPB BID [facility] Last Admin: 01/25/19 10:28 Dose: 100 mls/hr Metoprolol Succinate (Toprol Xl -) 50 mg PO [facility] Last Admin: 01/24/19 21:38 Dose: 50 mg Morphine Sulfate (Morphine Sulfate) 2 mg IVPUSH Q4H PRN PRN Reason: PAIN LEVEL 6-10 Last Admin: 01/25/19 04:32 Dose: 2 mg Multi-Ingredient Lotion (Eucerin (Small Jar) -) 1 applic TP BID [facility] Last Admin: 01/25/19 10:33 Dose: 1 applic Nystatin (Nystop Powder -) 1 applic TP DAILY [facility] Last Admin: 01/25/19 10:33 Dose: 1 applic Ondansetron HCl (Zofran -) 4 mg PO TID PRN PRN Reason: NAUSEA Polyethylene Glycol (Miralax (For Daily Use) -) 17 gm PO DAILY [facility] Last Admin: 01/25/19 10:28 Dose: 17 grams Fluticasone/Salmeterol (Advair 100mcg/50mcg -) 1 puff IH BID [facility] Last Admin: 01/25/19 10:32 Dose: 1 puff Silver Sulfadiazine (Silvadene -) 1 applic TP BID MALIK Last Admin: 01/25/19 10:33 Dose: 1 applic Tramadol HCl (Ultram -) 50 mg PO Q8H PRN PRN Reason: PAIN LEVEL 6-10 - Objective Vital Signs: Vital Signs Temperature 99.8 F H 01/25/19 10:00 Pulse Rate 97 H 01/25/19 10:00 Respiratory Rate 18 01/25/19 10:00 Blood Pressure 101/68 01/25/19 10:00 O2 Sat by Pulse Oximetry (%) 98 01/25/19 09:23 Constitutional: Yes: Calm, Anxious, Mild Distress Cardiovascular: Yes: S1, S2 Respiratory: Yes: Regular, On Nasal O2, Poor Air Entry Gastrointestinal: Yes: Normal Bowel Sounds, Soft Musculoskeletal: Yes: WNL Extremities: Yes: WNL Neurological: Yes: Alert, Oriented Psychiatric: Yes: Alert, Oriented Labs: CBC, BMP 01/25/19 06:20 01/25/19 06:20 INR, PTT INR 3.41 (0.83-1.09) H 01/25/19 06:20 Fibrinogen 474.0 mg/dL (238-498) 01/23/19 07:03 Assessment/Plan Problem List - Problems (1) Respiratory failure Code(s): J96.90 - RESPIRATORY FAILURE, UNSP, UNSP W HYPOXIA OR HYPERCAPNIA (2) SOB (shortness of breath) Code(s): R06.02 - SHORTNESS OF BREATH (3) Symptomatic anemia Code(s): D64.9 - ANEMIA, UNSPECIFIED (4) Acute on chronic renal failure Code(s): N17.9 - ACUTE KIDNEY FAILURE, UNSPECIFIED; N18.9 - CHRONIC KIDNEY DISEASE, UNSPECIFIED (5) Afib Code(s): I48.91 - UNSPECIFIED ATRIAL FIBRILLATION Qualifiers: Atrial fibrillation type: chronic Qualified Code(s): I48.2 - Chronic atrial fibrillation (6) CHF (NYHA class II, ACC/AHA stage C) Code(s): I50.9 - HEART FAILURE, UNSPECIFIED (7) CKD (chronic kidney disease) Code(s): N18.9 - CHRONIC KIDNEY DISEASE, UNSPECIFIED Qualifiers: Chronic kidney disease stage: stage 4 (severe) Qualified Code(s): N18.4 - Chronic kidney disease, stage 4 (severe) (8) COPD (chronic obstructive pulmonary disease) Code(s): J44.9 - CHRONIC OBSTRUCTIVE PULMONARY DISEASE, UNSPECIFIED Qualifiers: COPD type: unspecified COPD Qualified Code(s): J44.9 - Chronic obstructive pulmonary disease, unspecified (9) Hypercholesteremia Code(s): E78.00 - PURE HYPERCHOLESTEROLEMIA, UNSPECIFIED (10) Hypertension Code(s): I10 - ESSENTIAL (PRIMARY) HYPERTENSION (11) Hyperthyroidism Code(s): E05.90 - THYROTOXICOSIS, UNSP WITHOUT THYROTOXIC CRISIS OR STORM (12) Obese Code(s): E66.9 - OBESITY, UNSPECIFIED (13) Sacral decubitus ulcer, stage II Code(s): L89.152 - PRESSURE ULCER OF SACRAL REGION, STAGE 2 (14) Thyromegaly Code(s): E01.0 - IODINE-DEFICIENCY RELATED DIFFUSE (ENDEMIC) GOITER (15) Tracheal compression Code(s): J39.8 - OTHER SPECIFIED DISEASES OF UPPER RESPIRATORY TRACT (16) UTI (urinary tract infection) Code(s): N39.0 - URINARY TRACT INFECTION, SITE NOT SPECIFIED Qualifiers: Urinary tract infection type: site unspecified Hematuria presence: without hematuria Qualified Code(s): N39.0 - Urinary tract infection, site not specified Assessment/Plan 88 y.o. female with PMH of COPD on home O2, CHF, ASHD, HTN, HLD, CKD, diverticultis/ ? ischemic colitis s/p partial colectomy, s/p JW/BSO, chronic cough/persistent pulmonary infiltrates, multinodular goiter with partial tracheal compression, and anemia presents with c/o worsening SOB over the past week with subjective fever/chills. Fever Gram positive bacteremia UTI Acute hypoxic respiratory failure Possible HCAP Groin rash/excoriations Pancytopenia - ? due to Methimazole Multinodular goiter with partial tracheal compression COPD Hx of CKD AFIB CHF ASHD HTN HLD plan continue current mgmt as per icu will change abx to meropenam close watch rest as per the team resp support cc 40 min
[2019-01-25] MEDS ORDERED: MEROPENEM 1 GM VIAL (RESTRICTED TO ID) IVPB ONE (14:59)
[2019-01-25] MEDS ORDERED: DEXTROSE 5%-WATER 100 ML IVPB ONE (14:59)
[2019-01-25] MEDS: MEROPENEM 1 GM in DEXTROSE 5%-WATER 100 ML IVPB SCH (15:15)
--- NOTE | 2019-01-25 16:18 | PN ---
Progress Note (short form) - Note Progress Note: Surgery The patient is a 88 year old female with a significant PMH of Anemia, asthma, HTN, HLD, CHF, COPD (on 2-3L of O2 at home), afib, and CAD. For wound evaluation involving sacrum, buttocks and groin. Vital Signs Temp 99.8 F H 01/25/19 10:00 Pulse 97 H 01/25/19 10:00 Resp 18 01/25/19 10:00 BP 101/68 01/25/19 10:00 Pulse Ox 98 01/25/19 09:23 Intake & Output 01/24/19 01/25/19 01/25/19 23:59 11:59 23:59 Intake Total 1678 70 80 Output Total 950 100 300 Balance 728 -30 -220 Weight 232 lb 229 lb 12.8 oz Intake: IV 128 70 kvo 128 70 IVPB 550 Oral 1000 80 Output: Urine 950 100 300 Gibbons 950 100 300 Other: Voiding Method Indwelling Catheter Indwelling Catheter # Unmeasured Voids Gibbons 1 Bowel Movement No Yes No # Bowel Movements 1 Height 5 ft 7 in Body Mass Index (BMI) 36.3 Weight Measurement Method Built in [facility] CBC, BMP 01/25/19 06:20 01/25/19 06:20 PE: NAD, resting comfortably, responds to commands Unlabored resp on 4L NC Groin, two small stage 2 clean ulcers <1CM just inferior to thigh crease on b/l thighs- kissing lesions, minimal fibrinous exudate seen. stable Buttocks several areas of stage 2 ulcers extending from right buttock, sacrum and left upper buttock, all with bleeding base, clean and no areas of necrosis. no stacking or sinusus seen. No significant drainage, no foul odor suggestive of infection. LE compartments soft, supple and non-tender with diffuse pitting edema throughout, feet warm and well perfused. Problem List - Problems (1) Pressure ulcer Assessment/Plan: 88 yo [place] patient with several stable stage 2 pressure ulcers over buttocks, sacrum and groin, with no evidence for surgical intervention. -Reposition every two hours while in bed -Air mattress recommended -Use drawsheets and Trendelenburg when repositioning to reduce friction and shear -Manage incontinence via timely cleansing, use of appropriate incontinence disposables and use of barrier ointment to intact skin -Ensure adequate hydration/nutrition, supplementation per primary team -Ensure off-loading to all bony areas (heels, ankles, hips and tailbone) with Allevyn/Optifoam -Clean open wounds with normal saline and apply bacitracin - keep pillow between knees to prevent thighs from touching Evaluation and plan discussed with Dr Sanchez Code(s): L89.90 - PRESSURE ULCER OF UNSPECIFIED SITE, UNSPECIFIED STAGE
[2019-01-25] MEDS: BACITRACIN 15 GM TUBE TOPICAL OINTMENT TP SCH (16:35)
[2019-01-25] MEDS ORDERED: ONDANSETRON 4 MG TABLET PO PRN (17:27)
--- NOTE | 2019-01-25 17:40 | PN ---
Progress Note, Physician Chief Complaint: Feels improved No new complaints - Current Medication List Current Medications: Active Medications Acetaminophen (Tylenol -) 650 mg PO QID PRN PRN Reason: PAIN Albuterol/Ipratropium (Duoneb -) 1 amp NEB RQ4H MALIK Bacitracin (Bacitracin -) 1 applic TP DAILY [facility] Last Admin: 01/25/19 16:35 Dose: 1 applic Diltiazem HCl (Cardizem Cd -) 180 mg PO DAILY [facility] Furosemide (Lasix -) 40 mg PO DAILY MAL[facility] Gabapentin (Neurontin -) 100 mg PO TID MALIK Meropenem 1 gm/ Dextrose 100 mls @ 200 mls/hr IVPB Q12H [facility] Last Admin: 01/25/19 15:15 Dose: 200 mls/hr Doxycycline Hyclate 100 mg/ (Dextrose) 100 mls @ 100 mls/hr IVPB BID [facility] Metoprolol Succinate (Toprol Xl -) 50 mg PO HS MALIK Morphine Sulfate (Morphine Sulfate) 2 mg IVPUSH Q4H PRN PRN Reason: PAIN LEVEL 6-10 Nystatin (Nystop Powder -) 1 applic TP DAILY [facility] Ondansetron HCl (Zofran -) 4 mg PO TID PRN PRN Reason: NAUSEA Polyethylene Glycol (Miralax (For Daily Use) -) 17 gm PO DAILY [facility] Fluticasone/Salmeterol (Advair 100mcg/50mcg -) 1 puff IH BID MALIK Silver Sulfadiazine (Silvadene -) 1 applic TP BID MALIK Tramadol HCl (Ultram -) 50 mg PO Q8H PRN PRN Reason: PAIN LEVEL 6-10 - Objective Vital Signs: Vital Signs Temperature 98.9 F 01/25/19 14:00 Pulse Rate 91 H 01/25/19 16:00 Respiratory Rate 21 H 01/25/19 16:00 Blood Pressure 93/52 L 01/25/19 16:00 O2 Sat by Pulse Oximetry (%) 98 01/25/19 09:23 Elderly sick looking F looks edematous, not in distress HEENT: facial puffiness anemia, no external trauma NECK; No JVd No BrUit CHEST: Congested equal AE no wheezes ABD: Obese, non tender EXT: Chu atous with multiple echymoses RESIDENT PHYSICIAN IN RADIOLOGY: drowsy but arousanable. DERM; Multiple echymoses Scral Decubitus. Labs: CBC, BMP 01/25/19 06:20 01/25/19 06:20 INR, PTT INR 3.41 (0.83-1.09) H 01/25/19 06:20 Fibrinogen 474.0 mg/dL (238-498) 01/23/19 07:03 Problem List - Problems (1) Symptomatic anemia Assessment/Plan: ecived multile trasfusion still dropping H/H elevated LDH possibility of hemolytic process will discuss with hematology, no schitocytes renal functions ae stable other possibality but considering pancytopenia possibility of Bone marrow suppression due to Methimazole will DC F/U Thyroid profile. serial H/H Code(s): D64.9 - ANEMIA, UNSPECIFIED (2) Respiratory failure Assessment/Plan: Due to CHF exacerbation and sever anemia f/u clinical course Cardiology consult , received IV Lasix F/U BMP Code(s): J96.90 - RESPIRATORY FAILURE, UNSP, UNSP W HYPOXIA OR HYPERCAPNIA (3) CHF (NYHA class II, ACC/AHA stage C) Assessment/Plan: Cont current management F/U cardiology recommondation IV lasix 40mg recived in ED Code(s): I50.9 - HEART FAILURE, UNSPECIFIED (4) CKD (chronic kidney disease) Assessment/Plan: Stable F/U BMP Code(s): N18.9 - CHRONIC KIDNEY DISEASE, UNSPECIFIED Qualifiers: Chronic kidney disease stage: stage 4 (severe) Qualified Code(s): N18.4 - Chronic kidney disease, stage 4 (severe) (5) Persistent atrial fibrillation Assessment/Plan: Cont Diltizem and B Blockers F/U clinical course Pro BNP is at base line, cardiology consult. off coumadin Code(s): I48.1 - PERSISTENT ATRIAL FIBRILLATION (6) COPD (chronic obstructive pulmonary disease) Assessment/Plan: ont Advair and Duoneb with ABX as per ID persistent infiltrates les likely Pneumonia F/U Procal Code(s): J44.9 - CHRONIC OBSTRUCTIVE PULMONARY DISEASE, UNSPECIFIED Qualifiers: COPD type: unspecified COPD Qualified Code(s): J44.9 - Chronic obstructive pulmonary disease, unspecified (7) Thyromegaly Assessment/Plan: TSH supressed off Methimazole T4 ormal will f/u Endo recommendations Code(s): E01.0 - IODINE-DEFICIENCY RELATED DIFFUSE (ENDEMIC) GOITER (8) Malnutrition Assessment/Plan: Low akbuamin F/U Pre albumin and Nutrition consult Code(s): E46 - UNSPECIFIED PROTEIN-CALORIE MALNUTRITION Qualifiers: Malnutrition type: protein-calorie malnutrition (9) Pressure ulcer Assessment/Plan: Gibbons catheter and wound care. Code(s): L89.90 - PRESSURE ULCER OF UNSPECIFIED SITE, UNSPECIFIED STAGE (10) Pancytopenia Assessment/Plan: Probaly due to methimazole will observe. Code(s): D61.818 - OTHER PANCYTOPENIA (11) UTI (urinary tract infection) Assessment/Plan: ESBL E colli on meropenem Code(s): N39.0 - URINARY TRACT INFECTION, SITE NOT SPECIFIED
[2019-01-25] MEDS: traMADol HCL 50 MG TABLET PO PRN (22:01)
[2019-01-25] MEDS: ACETAMINOPHEN 325 MG TABLET (FP) PO PRN (22:57)
[2019-01-26] MEDS: MORPHINE SULFATE 2 MG/ML VIAL IVPUSH PRN ×4 (00:36→22:20)
[2019-01-26] MEDS ORDERED: MEROPENEM 1 GM VIAL (RESTRICTED TO ID) IVPB ONE ×2 (02:03→13:18)
[2019-01-26] MEDS ORDERED: DEXTROSE 5%-WATER 100 ML IVPB ONE ×2 (02:03→13:18)
[2019-01-26] MEDS: MEROPENEM 1 GM in DEXTROSE 5%-WATER 100 ML IVPB SCH ×2 (02:40→13:24)
[2019-01-26] MEDS: ALBUTEROL SO4 2.5/IPRATROPIUM 0.5 INH SOL 3 ML VIAL.NEB. NEB SCH ×6 (04:07→20:59)
[2019-01-26] MEDS: GABAPENTIN 100 MG CAPSULE (FP) PO SCH ×3 (05:52→22:19)
[2019-01-26 07:50] LABS: HEMATOCRIT 23.8 % (32.4-45.2); HEMOGLOBIN 7.7 GM/dL (10.7-15.3); MCH 30.2 pg (25.7-33.7); MCHC 32.2 g/dl (32.0-36.0); MEAN CELL VOLUME 93.7 fl (80-96); PLATELET COUNT 111 K/MM3 (134-434); RBC 2.55 M/mm3 (3.60-5.2); RDW 19.5 % (11.6-15.6); WHITE BLOOD COUNT 4.1 K/mm3 (4.0-10.0)
[2019-01-26 07:51] LABS: ALBUMIN 1.3 g/dl (3.4-5.0); BILIRUBIN,TOTAL 0.9 mg/dL (0.2-1); BLOOD UREA NITROGEN 33.2 mg/dL (7-18); CALCIUM 7.5 mg/dL (8.5-10.1); CREATININE 1.8 mg/dL (0.55-1.3); PHOSPHOROUS 2.6 mg/dL (2.5-4.9); POTASSIUM 3.8 mmol/L (3.5-5.1); TOT PROT 3.6 g/dl (6.4-8.2)
[2019-01-26] MEDS ORDERED: PT OWN MED DRAWER 7, Y5N ONE ×2 (09:07→10:48)
[2019-01-26] MEDS: POLYETHYLENE GLYCOL 3350 119 GM BTL PO SCH (09:36)
[2019-01-26] MEDS: BACITRACIN 15 GM TUBE TOPICAL OINTMENT TP SCH (09:36)
[2019-01-26] MEDS: traMADol HCL 50 MG TABLET PO PRN (09:36)
[2019-01-26] MEDS: FLUTICASONE/SALMETEROL 100 MCG/50 MCG DISKUS IH SCH ×2 (09:38→22:23)
[2019-01-26] MEDS: NYSTATIN POWDER 100,000 UNITS/GM - 15 GM TOPICAL POWDER TP SCH (09:39)
[2019-01-26] MEDS: SILVER SULFADIAZINE 1% TOP CREAM 400 GM JAR TP SCH ×2 (09:41→22:22)
[2019-01-26] MEDS ORDERED: FUROSEMIDE 40 MG TABLET (FP) PO SCH (10:00)
--- NOTE | 2019-01-26 10:04 | PN ---
Progress Note (short form) - Note Progress Note: Feels overall better today. Used NIPPV overnight. No CP. SOB improving. No acute events overnight. Intake & Output 01/23/19 01/24/19 01/25/19 01/26/19 23:59 23:59 23:59 23:59 Intake Total 940 1963 760 Output Total 2200 1250 500 Balance -1260 713 260 Weight 224 lb 6.4 oz 232 lb 229 lb 12.8 oz Last Vital Signs Temp Pulse Resp BP Pulse Ox 99.2 F 95 H 19 101/62 96 01/26/19 09:00 01/26/19 09:00 01/26/19 09:00 01/26/19 09:00 01/26/19 08:11 Active Medications Acetaminophen (Tylenol -) 650 mg PO QID PRN PRN Reason: PAIN Last Admin: 01/25/19 22:57 Dose: 650 mg Albuterol/Ipratropium (Duoneb -) 1 amp NEB RQ4H [facility] Last Admin: 01/26/19 07:35 Dose: 1 amp Bacitracin (Bacitracin -) 1 applic TP DAILY [facility] Last Admin: 01/26/19 09:36 Dose: 1 applic Diltiazem HCl (Cardizem Cd -) 180 mg PO DAILY [facility] Last Admin: 01/26/19 09:36 Dose: 180 mg Furosemide (Lasix -) 40 mg PO DAILY [facility] Last Admin: 01/26/19 09:36 Dose: 40 mg Gabapentin (Neurontin -) 100 mg PO TID [facility] Last Admin: 01/26/19 05:52 Dose: 100 mg Meropenem 1 gm/ Dextrose 100 mls @ 200 mls/hr IVPB Q12H [facility] Last Admin: 01/26/19 02:40 Dose: 200 mls/hr Doxycycline Hyclate 100 mg/ (Dextrose) 100 mls @ 100 mls/hr IVPB BID [facility] Last Admin: 01/25/19 21:30 Dose: 100 mls/hr Metoprolol Succinate (Toprol Xl -) 50 mg PO HS [facility] Last Admin: 01/25/19 21:27 Dose: 50 mg Morphine Sulfate (Morphine Sulfate) 2 mg IVPUSH Q4H PRN PRN Reason: PAIN LEVEL 6-10 Last Admin: 01/26/19 06:54 Dose: 2 mg Nystatin (Nystop Powder -) 1 applic TP DAILY [facility] Last Admin: 01/26/19 09:39 Dose: 1 applic Ondansetron HCl (Zofran -) 4 mg PO TID PRN PRN Reason: NAUSEA Polyethylene Glycol (Miralax (For Daily Use) -) 17 gm PO DAILY [facility] Last Admin: 01/26/19 09:36 Dose: 17 grams Fluticasone/Salmeterol (Advair 100mcg/50mcg -) 1 puff IH BID [facility] Last Admin: 01/26/19 09:38 Dose: 1 puff Silver Sulfadiazine (Silvadene -) 1 applic TP BID [facility] Last Admin: 01/26/19 09:41 Dose: 1 applic Tramadol HCl (Ultram -) 50 mg PO Q8H PRN PRN Reason: PAIN LEVEL 6-10 Last Admin: 01/26/19 09:36 Dose: 50 mg Gen: Awake and alert, mildly tachypneic with speaking Heart: RRR Lung: scattered rhonchi Abd: soft, nontender Ext: no edema Laboratory Results - last 24 hr 01/22/19 01/23/19 01/25/19 20:59 12:50 06:20 WBC RBC Hgb Hct MCV MCH MCHC RDW Plt Count MPV Neutrophils % (Manual) 65.7 Band Neutrophils % 10.1 Lymphocytes % (Manual) 15.2 Monocytes % (Manual) 4 Eosinophils % (Manual) 1.0 D Basophils % (Manual) 0.0 Myelocytes % (Man) 2 D Promyelocytes % (Man) 0 D Blast Cells % (Manual) 0 Metamyelocytes 0 Hypochromia 0 Platelet Estimate Decreased Polychromasia 0 Poikilocytosis 0 Anisocytosis 1+ Microcytosis 0 Macrocytosis 0 PT with INR INR Sodium Potassium Chloride Carbon Dioxide Anion Gap BUN Creatinine Est GFR (CKD-EPI)AfAm Est GFR (CKD-EPI)NonAf Random Glucose Calcium Phosphorus Magnesium Total Bilirubin AST ALT Alkaline Phosphatase Total Protein Albumin Procalcitonin 0.56 H Blood Type O POSITIVE Antibody Screen Negative Crossmatch See Detail 01/26/19 01/26/19 01/26/19 06:23 06:23 06:23 WBC 4.1 RBC 2.55 L Hgb 7.7 L Hct 23.8 L MCV 93.7 MCH 30.2 MCHC 32.2 RDW 19.5 H Plt Count 111 L MPV 9.0 Neutrophils % (Manual) Band Neutrophils % Lymphocytes % (Manual) Monocytes % (Manual) Eosinophils % (Manual) Basophils % (Manual) Myelocytes % (Man) Promyelocytes % (Man) Blast Cells % (Manual) Metamyelocytes Hypochromia Platelet Estimate Polychromasia Poikilocytosis Anisocytosis Microcytosis Macrocytosis PT with INR 30.70 H INR 2.58 H Sodium 144 Potassium 3.8 Chloride 109 H Carbon Dioxide 29 Anion Gap 6 L BUN 33.2 H Creatinine 1.8 H Est GFR (CKD-EPI)AfAm 28.42 Est GFR (CKD-EPI)NonAf 24.52 Random Glucose 109 H Calcium 7.5 L Phosphorus 2.6 Magnesium 2.0 Total Bilirubin 0.9 AST 15 ALT 18 Alkaline Phosphatase 48 Total Protein 3.6 L Albumin 1.3 L Procalcitonin Blood Type Antibody Screen Crossmatch ASSESSMENT AND PLAN: Acute on Chronic Hypoxic Respiratory Failure UTI Sacral Decubitus Infection Gram Positive Bacteremia Sepsis COPD Atrial Fibrillation LV Systolic/Diastolic Dysfunction CKD Pancytopenia Anemia requiring PRBC transfusions Goiter with Tracheal compression - continue antibiotics - f/u cultures - Local wound care per surgery - monitor CBC - O2 to keep Spo2 >90% - NIPPV needed to assist in work of breathing - inhaled bronchodilators - rate control - anticoagulation to target INR 2-3 Dr Amaya
[2019-01-26] MEDS: DOXYCYCLINE INJECTION 100 MG in DEXTROSE 5%-WATER - 100 ML IVPB SCH ×2 (10:49→22:19)
--- NOTE | 2019-01-26 12:06 | PN ---
Progress Note, Physician History of Present Illness: patient stable improving nipvv - Current Medication List Current Medications: Active Medications Acetaminophen (Tylenol -) 650 mg PO QID PRN PRN Reason: PAIN Last Admin: 01/25/19 22:57 Dose: 650 mg Albuterol/Ipratropium (Duoneb -) 1 amp NEB RQ4H [facility] Last Admin: 01/26/19 07:35 Dose: 1 amp Bacitracin (Bacitracin -) 1 applic TP DAILY [facility] Last Admin: 01/26/19 09:36 Dose: 1 applic Diltiazem HCl (Cardizem Cd -) 180 mg PO DAILY [facility] Last Admin: 01/26/19 09:36 Dose: 180 mg Furosemide (Lasix -) 40 mg PO DAILY [facility] Last Admin: 01/26/19 09:36 Dose: 40 mg Gabapentin (Neurontin -) 100 mg PO TID [facility] Last Admin: 01/26/19 05:52 Dose: 100 mg Meropenem 1 gm/ Dextrose 100 mls @ 200 mls/hr IVPB Q12H [facility] Last Admin: 01/26/19 02:40 Dose: 200 mls/hr Doxycycline Hyclate 100 mg/ (Dextrose) 100 mls @ 100 mls/hr IVPB BID [facility] Last Admin: 01/26/19 10:49 Dose: 100 mls/hr Metoprolol Succinate (Toprol Xl -) 50 mg PO HS [facility] Last Admin: 01/25/19 21:27 Dose: 50 mg Morphine Sulfate (Morphine Sulfate) 2 mg IVPUSH Q4H PRN PRN Reason: PAIN LEVEL 6-10 Last Admin: 01/26/19 06:54 Dose: 2 mg Nystatin (Nystop Powder -) 1 applic TP DAILY [facility] Last Admin: 01/26/19 09:39 Dose: 1 applic Ondansetron HCl (Zofran -) 4 mg PO TID PRN PRN Reason: NAUSEA Polyethylene Glycol (Miralax (For Daily Use) -) 17 gm PO DAILY [facility] Last Admin: 01/26/19 09:36 Dose: 17 grams Fluticasone/Salmeterol (Advair 100mcg/50mcg -) 1 puff IH BID [facility] Last Admin: 01/26/19 09:38 Dose: 1 puff Silver Sulfadiazine (Silvadene -) 1 applic TP BID [facility] Last Admin: 01/26/19 09:41 Dose: 1 applic Tramadol HCl (Ultram -) 50 mg PO Q8H PRN PRN Reason: PAIN LEVEL 6-10 Last Admin: 01/26/19 09:36 Dose: 50 mg - Objective Vital Signs: Vital Signs Temperature 99.2 F 01/26/19 09:00 Pulse Rate 95 H 01/26/19 09:00 Respiratory Rate 19 01/26/19 09:00 Blood Pressure 101/62 01/26/19 09:00 O2 Sat by Pulse Oximetry (%) 99 01/26/19 09:50 Constitutional: Yes: No Distress, Calm Neck: Yes: Supple Cardiovascular: Yes: S1, S2 Respiratory: Yes: Regular, On Nasal O2 Gastrointestinal: Yes: Normal Bowel Sounds, Soft Musculoskeletal: Yes: WNL Extremities: Yes: Other Neurological: Yes: Alert, Oriented Psychiatric: Yes: Alert Labs: CBC, BMP 01/26/19 06:23 01/26/19 06:23 INR, PTT INR 2.58 (0.83-1.09) H 01/26/19 06:23 Fibrinogen 474.0 mg/dL (238-498) 01/23/19 07:03 Assessment/Plan Problem List - Problems (1) Respiratory failure Code(s): J96.90 - RESPIRATORY FAILURE, UNSP, UNSP W HYPOXIA OR HYPERCAPNIA (2) SOB (shortness of breath) Code(s): R06.02 - SHORTNESS OF BREATH (3) Symptomatic anemia Code(s): D64.9 - ANEMIA, UNSPECIFIED (4) Acute on chronic renal failure Code(s): N17.9 - ACUTE KIDNEY FAILURE, UNSPECIFIED; N18.9 - CHRONIC KIDNEY DISEASE, UNSPECIFIED (5) Afib Code(s): I48.91 - UNSPECIFIED ATRIAL FIBRILLATION Qualifiers: Atrial fibrillation type: chronic Qualified Code(s): I48.2 - Chronic atrial fibrillation (6) CHF (NYHA class II, ACC/AHA stage C) Code(s): I50.9 - HEART FAILURE, UNSPECIFIED (7) CKD (chronic kidney disease) Code(s): N18.9 - CHRONIC KIDNEY DISEASE, UNSPECIFIED Qualifiers: Chronic kidney disease stage: stage 4 (severe) Qualified Code(s): N18.4 - Chronic kidney disease, stage 4 (severe) (8) COPD (chronic obstructive pulmonary disease) Code(s): J44.9 - CHRONIC OBSTRUCTIVE PULMONARY DISEASE, UNSPECIFIED Qualifiers: COPD type: unspecified COPD Qualified Code(s): J44.9 - Chronic obstructive pulmonary disease, unspecified (9) Hypercholesteremia Code(s): E78.00 - PURE HYPERCHOLESTEROLEMIA, UNSPECIFIED (10) Hypertension Code(s): I10 - ESSENTIAL (PRIMARY) HYPERTENSION (11) Hyperthyroidism Code(s): E05.90 - THYROTOXICOSIS, UNSP WITHOUT THYROTOXIC CRISIS OR STORM (12) Obese Code(s): E66.9 - OBESITY, UNSPECIFIED (13) Sacral decubitus ulcer, stage II Code(s): L89.152 - PRESSURE ULCER OF SACRAL REGION, STAGE 2 (14) Thyromegaly Code(s): E01.0 - IODINE-DEFICIENCY RELATED DIFFUSE (ENDEMIC) GOITER (15) Tracheal compression Code(s): J39.8 - OTHER SPECIFIED DISEASES OF UPPER RESPIRATORY TRACT (16) UTI (urinary tract infection) Code(s): N39.0 - URINARY TRACT INFECTION, SITE NOT SPECIFIED Qualifiers: Urinary tract infection type: site unspecified Hematuria presence: without hematuria Qualified Code(s): N39.0 - Urinary tract infection, site not specified Assessment/Plan 88 y.o. female with PMH of COPD on home O2, CHF, ASHD, HTN, HLD, CKD, diverticultis/ ? ischemic colitis s/p partial colectomy, s/p JW/BSO, chronic cough/persistent pulmonary infiltrates, multinodular goiter with partial tracheal compression, and anemia presents with c/o worsening SOB over the past week with subjective fever/chills. Fever Gram positive bacteremia UTI Acute hypoxic respiratory failure Possible HCAP Groin rash/excoriations Pancytopenia - ? due to Methimazole Multinodular goiter with partial tracheal compression COPD Hx of CKD AFIB CHF ASHD HTN HLD plan continue current mgmt abx rest as per the team
[2019-01-26 12:20] LABS: INR 2.44 (0.83-1.09); PROTHROMBIN TIME (PATIENT) 29.1 SEC (9.7-13.0)
--- NOTE | 2019-01-26 13:19 | PN ---
Progress Note, Physician Chief Complaint: Feels improved No new complaints - Current Medication List Current Medications: Active Medications Acetaminophen (Tylenol -) 650 mg PO QID PRN PRN Reason: PAIN Last Admin: 01/25/19 22:57 Dose: 650 mg Albuterol/Ipratropium (Duoneb -) 1 amp NEB RQ4H [facility] Last Admin: 01/26/19 07:35 Dose: 1 amp Bacitracin (Bacitracin -) 1 applic TP DAILY [facility] Last Admin: 01/26/19 09:36 Dose: 1 applic Diltiazem HCl (Cardizem Cd -) 180 mg PO DAILY [facility] Last Admin: 01/26/19 09:36 Dose: 180 mg Furosemide (Lasix -) 40 mg PO DAILY [facility] Last Admin: 01/26/19 09:36 Dose: 40 mg Gabapentin (Neurontin -) 100 mg PO TID [facility] Last Admin: 01/26/19 05:52 Dose: 100 mg Meropenem 1 gm/ Dextrose 100 mls @ 200 mls/hr IVPB Q12H [facility] Last Admin: 01/26/19 02:40 Dose: 200 mls/hr Doxycycline Hyclate 100 mg/ (Dextrose) 100 mls @ 100 mls/hr IVPB BID [facility] Last Admin: 01/26/19 10:49 Dose: 100 mls/hr Metoprolol Succinate (Toprol Xl -) 50 mg PO HS [facility] Last Admin: 01/25/19 21:27 Dose: 50 mg Morphine Sulfate (Morphine Sulfate) 2 mg IVPUSH Q4H PRN PRN Reason: PAIN LEVEL 6-10 Last Admin: 01/26/19 06:54 Dose: 2 mg Nystatin (Nystop Powder -) 1 applic TP DAILY [facility] Last Admin: 01/26/19 09:39 Dose: 1 applic Ondansetron HCl (Zofran -) 4 mg PO TID PRN PRN Reason: NAUSEA Polyethylene Glycol (Miralax (For Daily Use) -) 17 gm PO DAILY [facility] Last Admin: 01/26/19 09:36 Dose: 17 grams Fluticasone/Salmeterol (Advair 100mcg/50mcg -) 1 puff IH BID [facility] Last Admin: 01/26/19 09:38 Dose: 1 puff Silver Sulfadiazine (Silvadene -) 1 applic TP BID [facility] Last Admin: 01/26/19 09:41 Dose: 1 applic Tramadol HCl (Ultram -) 50 mg PO Q8H PRN PRN Reason: PAIN LEVEL 6-10 Last Admin: 01/26/19 09:36 Dose: 50 mg - Objective Vital Signs: Vital Signs Temperature 99.2 F 01/26/19 09:00 Pulse Rate 95 H 01/26/19 09:00 Respiratory Rate 01/26/19 09:00 Blood Pressure 101/62 01/26/19 09:00 O2 Sat by Pulse Oximetry (%) 99 01/26/19 09:50 Elderly sick looking F looks edematous, not in distress HEENT: facial puffiness anemia, no external trauma NECK; No JVd No BrUit CHEST: Congested equal AE no wheezes ABD: Obese, non tender EXT: Chu atous with multiple echymoses [employer]: drowsy but arousanable. DERM; Multiple echymoses Scral Decubitus. Labs: CBC, BMP 01/26/19 06:23 01/26/19 06:23 INR, PTT INR 2.44 (0.83-1.09) H 01/26/19 06:23 Fibrinogen 474.0 mg/dL (238-498) 01/23/19 07:03 Problem List - Problems (1) Symptomatic anemia Assessment/Plan: Stable after transfusion Code(s): D64.9 - ANEMIA, UNSPECIFIED (2) Respiratory failure Assessment/Plan: Due to CHF exacerbation and sever anemia improving on Nebs and PO Lasix Code(s): J96.90 - RESPIRATORY FAILURE, UNSP, UNSP W HYPOXIA OR HYPERCAPNIA (3) CHF (NYHA class II, ACC/AHA stage C) Assessment/Plan: Cont current management F/U cardiology recommendation PO lasix 40mg daily Code(s): I50.9 - HEART FAILURE, UNSPECIFIED (4) CKD (chronic kidney disease) Assessment/Plan: Stable F/U BMP Code(s): N18.9 - CHRONIC KIDNEY DISEASE, UNSPECIFIED Qualifiers: Chronic kidney disease stage: stage 4 (severe) Qualified Code(s): N18.4 - Chronic kidney disease, stage 4 (severe) (5) Persistent atrial fibrillation Assessment/Plan: Cont Diltizem and B Blockers F/U clinical course Pro BNP is at base line, cardiology consult. cont coumadin 2 mg F/U INR in am Code(s): I48.1 - PERSISTENT ATRIAL FIBRILLATION (6) COPD (chronic obstructive pulmonary disease) Assessment/Plan: ont Advair and Duoneb with ABX as per ID persistent infiltrates less likely pneumonia Code(s): J44.9 - CHRONIC OBSTRUCTIVE PULMONARY DISEASE, UNSPECIFIED Qualifiers: COPD type: unspecified COPD Qualified Code(s): J44.9 - Chronic obstructive pulmonary disease, unspecified (7) Thyromegaly Assessment/Plan: F/U Endo recommendation will F/U TSH Code(s): E01.0 - IODINE-DEFICIENCY RELATED DIFFUSE (ENDEMIC) GOITER (8) Malnutrition Assessment/Plan: Low akbuamin F/U Pre albumin and Nutrition consult Code(s): E46 - UNSPECIFIED PROTEIN-CALORIE MALNUTRITION Qualifiers: Malnutrition type: protein-calorie malnutrition (9) Pressure ulcer Assessment/Plan: Gibbons catheter and wound care. cont current abx Code(s): L89.90 - PRESSURE ULCER OF UNSPECIFIED SITE, UNSPECIFIED STAGE (10) Pancytopenia Assessment/Plan: Probably due to methimazole improving. Code(s): D61.818 - OTHER PANCYTOPENIA (11) UTI (urinary tract infection) Assessment/Plan: ESBL E colli on meropenem Code(s): N39.0 - URINARY TRACT INFECTION, SITE NOT SPECIFIED
[2019-01-26] MEDS ORDERED: WARFARIN NA 2 MG TABLET (UD) PO ONE (18:00)
--- NOTE | 2019-01-26 19:00 | PN ---
Progress Note (short form) - Note Progress Note: Patient seen and examined Clinically improved Hard of hearing Breathing improved Last Vital Signs Temp Pulse Resp BP Pulse Ox 99.2 F 95 H 19 101/55 L 99 01/26/19 14:01 01/26/19 14:01 01/26/19 14:01 01/26/19 14:01 01/26/19 09:50 Lungs- rhonchi Cor-RSR Abd-soft LE edema CBC, BMP 01/26/19 06:23 01/26/19 06:23 Current Medications Generic Name Dose Route Start Last Admin Trade Name Freq PRN Reason Stop Dose Admin Acetaminophen 650 mg 01/25/19 17:27 01/25/19 22:57 Tylenol - PO 650 mg QID PRN Administration PAIN Albuterol/Ipratropium 1 amp 01/25/19 20:00 01/26/19 16:55 Duoneb - NEB 1 amp RQ4H [facility] Administration Bacitracin 1 applic 01/25/19 16:30 01/26/19 09:36 Bacitracin - TP 1 applic DAILY [facility] Administration Diltiazem HCl 180 mg 01/26/19 10:00 01/26/19 09:36 Cardizem Cd - PO 180 mg DAILY [facility] Administration Furosemide 40 mg 01/26/19 10:00 01/26/19 09:36 Lasix - PO 40 mg DAILY [facility] Administration Gabapentin 100 mg 01/25/19 22:00 01/26/19 13:24 Neurontin - PO 100 mg TID [facility] Administration Meropenem 1 gm/ Dextrose 100 mls @ 200 mls/hr 01/25/19 14:00 01/26/19 13:24 IVPB 200 mls/hr Q12H [facility] Administration As Directed Doxycycline Hyclate 100 mg/ 100 mls @ 100 mls/hr 01/25/19 22:00 01/26/19 10: 49 Dextrose IVPB 100 mls/hr BID [facility] Administration Metoprolol Succinate 50 mg 01/25/19 22:00 01/25/19 21:27 Toprol Xl - PO 50 mg HS [facility] Administration Morphine Sulfate 2 mg 01/25/19 17:27 01/26/19 13:23 Morphine Sulfate IVPUSH 2 mg Q4H PRN Administration PAIN LEVEL 6-10 Nystatin 1 applic 01/26/19 10:00 01/26/19 09:39 Nystop Powder - TP 1 applic DAILY [facility] Administration Ondansetron HCl 4 mg 01/25/19 17:27 Zofran - PO TID PRN NAUSEA Polyethylene Glycol 17 gm 01/26/19 10:00 01/26/19 09:36 Miralax (For Daily Use) - PO 17 grams DAILY [facility] Administration Fluticasone/Salmeterol 1 puff 01/25/19 22:00 01/26/19 09:38 Advair 100mcg/50mcg - IH 1 puff BID [facility] Administration Silver Sulfadiazine 1 applic 01/25/19 22:00 01/26/19 09:41 Silvadene - TP 1 applic BID [facility] Administration Tramadol HCl 50 mg 01/25/19 17:27 01/26/19 09:36 Ultram - PO 50 mg Q8H PRN Administration PAIN LEVEL 6-10 Impression: Gram positive bacteremia pancytopenia secondary to methimazolw Recovering BM Anemia Plan Monitor CBC Consider transfusion if Hb< 7.5.
[2019-01-26] MEDS: ACETAMINOPHEN 325 MG TABLET (FP) PO PRN (22:20)
[2019-01-27] MEDS ORDERED: MEROPENEM 1 GM VIAL (RESTRICTED TO ID) IVPB ONE ×2 (01:18→15:27)
[2019-01-27] MEDS ORDERED: DEXTROSE 5%-WATER 100 ML IVPB ONE ×2 (01:18→15:27)
[2019-01-27] MEDS: MEROPENEM 1 GM in DEXTROSE 5%-WATER 100 ML IVPB SCH ×2 (01:23→15:29)
[2019-01-27] MEDS ORDERED: SODIUM CHLORIDE 500 ML IV STA ×2 (02:25→03:50)
[2019-01-27] MEDS ORDERED: ACETAMINOPHEN 1000 MG/100 ML VIAL (NON FORMULARY) IVPB ONE (02:26)
[2019-01-27 03:22] LABS: BASO % 0.3 % (0-2.0); EOS % 0.9 % (0-4.5); HEMATOCRIT 23.8 % (32.4-45.2); HEMOGLOBIN 7.7 GM/dL (10.7-15.3); LYMPH % 24.5 % (8-40); MCH 29.7 pg (25.7-33.7); MCHC 32.1 g/dl (32.0-36.0); MEAN CELL VOLUME 92.6 fl (80-96); MONO % 5.6 % (3.8-10.2); NEUT % 68.7 % (42.8-82.8); PLATELET COUNT 139 K/MM3 (134-434); RBC 2.57 M/mm3 (3.60-5.2); RDW 19.5 % (11.6-15.6)
[2019-01-27 03:34] LABS: ALBUMIN 1.2 g/dl (3.4-5.0); BILIRUBIN,TOTAL 0.3 mg/dL (0.2-1); BLOOD UREA NITROGEN 36.2 mg/dL (7-18); CALCIUM 7.3 mg/dL (8.5-10.1); CREATININE 2.1 mg/dL (0.55-1.3); POTASSIUM 4.6 mmol/L (3.5-5.1); TOT PROT 3.6 g/dl (6.4-8.2)
[2019-01-27] MEDS: ALBUTEROL SO4 2.5/IPRATROPIUM 0.5 INH SOL 3 ML VIAL.NEB. NEB SCH ×6 (04:00→20:45)
--- NOTE | 2019-01-27 04:26 | RAPID ---
Physical Examination Vital Signs: Rapid response was called overhead at 02:15 to 7W. Rapid response team arrived and pt was found to febrile and hypotensive. Pt is currently being treated with meropenem (day 2) for ESBL UTI. T: 102.8 BP: 81/38 HR: 91 RR: 19 O2: 98% PE: General: A&Ox1 Heart: RRR, S1, S2 Lungs: decreased breath sounds Abd: distended, soft, nontender Ext: 2+ pitting edema, 2+ pulses Sacrum: multiple small ulcers, mild bleeding, purulent discharge or erythema. Pt was given 1 bolus NS. CBC, CMP, lactic acid, blood cx, CXR were sent After first bolus, BP was 74/44, lactic acid 2.1 and Cr increased to 2.1 (from 1.7 yesterday). Ordered one more bolus of NS. Will repeat lactic acid at 5am. Cont to monitor vitals. Labs: CBC, BMP 01/27/19 02:42 01/27/19 02:42
[2019-01-27] MEDS: GABAPENTIN 100 MG CAPSULE (FP) PO SCH ×3 (05:24→22:15)
[2019-01-27 05:56] LABS: BASO % 0.2 % (0-2.0); EOS % 0.8 % (0-4.5); HEMATOCRIT 24.4 % (32.4-45.2); HEMOGLOBIN 7.9 GM/dL (10.7-15.3); LYMPH % 21.6 % (8-40); MCH 30.3 pg (25.7-33.7); MCHC 32.5 g/dl (32.0-36.0); MEAN PLT VOLUME 9.1 fl (7.5-11.1); MONO % 5.3 % (3.8-10.2); NEUT % 72.1 % (42.8-82.8); PLATELET COUNT 143 K/MM3 (134-434); RBC 2.62 M/mm3 (3.60-5.2); RDW 19.7 % (11.6-15.6); WHITE BLOOD COUNT 6.5 K/mm3 (4.0-10.0)
[2019-01-27 06:08] LABS: INR 2.41 (0.83-1.09); PROTHROMBIN TIME (PATIENT) 28.7 SEC (9.7-13.0)
[2019-01-27 06:16] LABS: BLOOD UREA NITROGEN 36.2 mg/dL (7-18); CALCIUM 7.4 mg/dL (8.5-10.1); CREATININE 2.2 mg/dL (0.55-1.3); POTASSIUM 4.6 mmol/L (3.5-5.1)
[2019-01-27] MEDS ORDERED: AMINO ACIDS 4.25%/D5W 1,000 ML IV SCH (09:15)
[2019-01-27] MEDS ORDERED: VANCOMYCIN 1 GRAM (PRE-DOCKED) 1,000 MG/250 ML BAG IVPB ONE (09:15)
[2019-01-27] MEDS ORDERED: LACTATED RINGERS SOLUTION 1,000 ML/1,000 ML INFUS.BAG IV SCH (09:30)
[2019-01-27 09:59] LABS: ANISOCYTOSIS 2+; CORRECTED WBC 6.25 K/mm3; MACROCYTOSIS 0; PLATELET ESTIMATE NORMAL
[2019-01-27] MEDS: DOXYCYCLINE INJECTION 100 MG in DEXTROSE 5%-WATER - 100 ML IVPB SCH ×2 (10:16→10:30)
[2019-01-27] MEDS: NYSTATIN POWDER 100,000 UNITS/GM - 15 GM TOPICAL POWDER TP SCH (10:18)
[2019-01-27] MEDS: BACITRACIN 15 GM TUBE TOPICAL OINTMENT TP SCH (10:19)
[2019-01-27] MEDS: FLUTICASONE/SALMETEROL 100 MCG/50 MCG DISKUS IH SCH ×2 (10:19→22:13)
[2019-01-27] MEDS: SILVER SULFADIAZINE 1% TOP CREAM 400 GM JAR TP SCH ×2 (10:20→22:15)
[2019-01-27] MEDS: POLYETHYLENE GLYCOL 3350 119 GM BTL PO SCH (10:22)
--- NOTE | 2019-01-27 11:15 | PN ---
Progress Note, Physician History of Present Illness: events noted from last night currently awake and alerts still uncomfortable - Current Medication List Current Medications: Active Medications Acetaminophen (Tylenol -) 650 mg PO QID PRN PRN Reason: PAIN Last Admin: 01/26/19 22:20 Dose: 650 mg Albuterol/Ipratropium (Duoneb -) 1 amp NEB RQ4H [facility] Last Admin: 01/27/19 07:45 Dose: 1 amp Bacitracin (Bacitracin -) 1 applic TP DAILY [facility] Last Admin: 01/27/19 10:19 Dose: 1 applic Diltiazem HCl (Cardizem Cd -) 180 mg PO DAILY [facility] Last Admin: 01/26/19 09:36 Dose: 180 mg Gabapentin (Neurontin -) 100 mg PO TID [facility] Last Admin: 01/27/19 05:24 Dose: 100 mg Meropenem 1 gm/ Dextrose 100 mls @ 200 mls/hr IVPB Q12H [facility] Last Admin: 01/27/19 01:23 Dose: 200 mls/hr Doxycycline Hyclate 100 mg/ (Dextrose) 100 mls @ 100 mls/hr IVPB BID [facility] Last Admin: 01/27/19 10:16 Dose: 100 mls/hr Amino Acids (Clinimix -) 1,000 mls @ 84 mls/hr IV Q12H [facility] Lactated Ringer's (Lactated Ringers Solution) 1,000 ml in 1,000 mls @ 75 mls/ hr IV ASDIR [facility] Last Admin: 01/27/19 10:14 Dose: 75 mls/hr Metoprolol Succinate (Toprol Xl -) 50 mg PO HS [facility] Last Admin: 01/26/19 22:19 Dose: 50 mg Morphine Sulfate (Morphine Sulfate) 2 mg IVPUSH Q4H PRN PRN Reason: PAIN LEVEL 6-10 Last Admin: 01/26/19 22:20 Dose: 2 mg Nystatin (Nystop Powder -) 1 applic TP DAILY [facility] Last Admin: 01/27/19 10:18 Dose: 1 applic Ondansetron HCl (Zofran -) 4 mg PO TID PRN PRN Reason: NAUSEA Polyethylene Glycol (Miralax (For Daily Use) -) 17 gm PO DAILY [facility] Last Admin: 01/27/19 10:22 Dose: 17 grams Fluticasone/Salmeterol (Advair 100mcg/50mcg -) 1 puff IH BID [facility] Last Admin: 01/27/19 10:19 Dose: 1 puff Silver Sulfadiazine (Silvadene -) 1 applic TP BID [facility] Last Admin: 01/27/19 10:20 Dose: 1 applic Tramadol HCl (Ultram -) 50 mg PO Q8H PRN PRN Reason: PAIN LEVEL 6-10 Last Admin: 01/26/19 09:36 Dose: 50 mg - Objective Vital Signs: Vital Signs Temperature 98.5 F 01/27/19 07:05 Pulse Rate 100 H 01/27/19 07:05 Respiratory Rate 20 01/27/19 07:05 Blood Pressure 80/46 L 01/27/19 07:05 O2 Sat by Pulse Oximetry (%) 97 01/27/19 07:45 Constitutional: Yes: Anxious, Other Cardiovascular: Yes: S1, S2 Respiratory: Yes: Regular, On Nasal O2, Poor Air Entry Gastrointestinal: Yes: Normal Bowel Sounds, Soft Musculoskeletal: Yes: WNL Extremities: Yes: WNL Neurological: Yes: Alert, Oriented Labs: CBC, BMP 01/27/19 05:20 01/27/19 05:20 INR, PTT INR 2.41 (0.83-1.09) H 01/27/19 05:20 Fibrinogen 474.0 mg/dL (238-498) 01/23/19 07:03 Assessment/Plan Problem List - Problems (1) Respiratory failure Code(s): J96.90 - RESPIRATORY FAILURE, UNSP, UNSP W HYPOXIA OR HYPERCAPNIA (2) SOB (shortness of breath) Code(s): R06.02 - SHORTNESS OF BREATH (3) Symptomatic anemia Code(s): D64.9 - ANEMIA, UNSPECIFIED (4) Acute on chronic renal failure Code(s): N17.9 - ACUTE KIDNEY FAILURE, UNSPECIFIED; N18.9 - CHRONIC KIDNEY DISEASE, UNSPECIFIED (5) Afib Code(s): I48.91 - UNSPECIFIED ATRIAL FIBRILLATION Qualifiers: Atrial fibrillation type: chronic Qualified Code(s): I48.2 - Chronic atrial fibrillation (6) CHF (NYHA class II, ACC/AHA stage C) Code(s): I50.9 - HEART FAILURE, UNSPECIFIED (7) CKD (chronic kidney disease) Code(s): N18.9 - CHRONIC KIDNEY DISEASE, UNSPECIFIED Qualifiers: Chronic kidney disease stage: stage 4 (severe) Qualified Code(s): N18.4 - Chronic kidney disease, stage 4 (severe) (8) COPD (chronic obstructive pulmonary disease) Code(s): J44.9 - CHRONIC OBSTRUCTIVE PULMONARY DISEASE, UNSPECIFIED Qualifiers: COPD type: unspecified COPD Qualified Code(s): J44.9 - Chronic obstructive pulmonary disease, unspecified (9) Hypercholesteremia Code(s): E78.00 - PURE HYPERCHOLESTEROLEMIA, UNSPECIFIED (10) Hypertension Code(s): I10 - ESSENTIAL (PRIMARY) HYPERTENSION (11) Hyperthyroidism Code(s): E05.90 - THYROTOXICOSIS, UNSP WITHOUT THYROTOXIC CRISIS OR STORM (12) Obese Code(s): E66.9 - OBESITY, UNSPECIFIED (13) Sacral decubitus ulcer, stage II Code(s): L89.152 - PRESSURE ULCER OF SACRAL REGION, STAGE 2 (14) Thyromegaly Code(s): E01.0 - IODINE-DEFICIENCY RELATED DIFFUSE (ENDEMIC) GOITER (15) Tracheal compression Code(s): J39.8 - OTHER SPECIFIED DISEASES OF UPPER RESPIRATORY TRACT (16) UTI (urinary tract infection) Code(s): N39.0 - URINARY TRACT INFECTION, SITE NOT SPECIFIED Qualifiers: Urinary tract infection type: site unspecified Hematuria presence: without hematuria Qualified Code(s): N39.0 - Urinary tract infection, site not specified Assessment/Plan 88 y.o. female with PMH of COPD on home O2, CHF, ASHD, HTN, HLD, CKD, diverticultis/ ? ischemic colitis s/p partial colectomy, s/p JW/BSO, chronic cough/persistent pulmonary infiltrates, multinodular goiter with partial tracheal compression, and anemia presents with c/o worsening SOB over the past week with subjective fever/chills. Fever Gram positive bacteremia UTI Acute hypoxic respiratory failure Possible HCAP Groin rash/excoriations Pancytopenia - ? due to Methimazole Multinodular goiter with partial tracheal compression COPD Hx of CKD AFIB CHF ASHD HTN HLD rapid response was called last night.patient had become hypotensive now better continue current mgmt
[2019-01-27 12:41] LABS: ANISOCYTOSIS 1+; MACROCYTOSIS 0; PLATELET ESTIMATE DECREASED
[2019-01-27] MEDS: traMADol HCL 50 MG TABLET PO PRN (15:29)
[2019-01-27] MEDS: AMINO ACIDS 4.25%/D5W 1,000 ML IV SCH (15:33)
--- NOTE | 2019-01-27 16:27 | PN ---
Progress Note, Physician Chief Complaint: Last night had episode of Hypotention RT was called responded to Flid challenged also spiked fever TWBC normal - Current Medication List Current Medications: Active Medications Acetaminophen (Tylenol -) 650 mg PO QID PRN PRN Reason: PAIN Last Admin: 01/26/19 22:20 Dose: 650 mg Albuterol/Ipratropium (Duoneb -) 1 amp NEB RQ4H [facility] Last Admin: 01/27/19 16:03 Dose: Not Given Bacitracin (Bacitracin -) 1 applic TP DAILY [facility] Last Admin: 01/27/19 10:19 Dose: 1 applic Diltiazem HCl (Cardizem Cd -) 180 mg PO DAILY [facility] Last Admin: 01/27/19 10:34 Dose: Not Given Gabapentin (Neurontin -) 100 mg PO TID [facility] Last Admin: 01/27/19 15:29 Dose: 100 mg Meropenem 1 gm/ Dextrose 100 mls @ 200 mls/hr IVPB Q12H [facility] Last Admin: 01/27/19 15:29 Dose: 200 mls/hr Doxycycline Hyclate 100 mg/ (Dextrose) 100 mls @ 100 mls/hr IVPB BID [facility] Last Admin: 01/27/19 10:16 Dose: 100 mls/hr Amino Acids (Clinimix -) 1,000 mls @ 84 mls/hr IV Q12H [facility] Last Admin: 01/27/19 15:33 Dose: Not Given Lactated Ringer's (Lactated Ringers Solution) 1,000 ml in 1,000 mls @ 75 mls/ hr IV ASDIR [facility] Last Admin: 01/27/19 10:14 Dose: 75 mls/hr Metoprolol Succinate (Toprol Xl -) 50 mg PO HS [facility] Last Admin: 01/26/19 22:19 Dose: 50 mg Morphine Sulfate (Morphine Sulfate) 2 mg IVPUSH Q4H PRN PRN Reason: PAIN LEVEL 6-10 Last Admin: 01/26/19 22:20 Dose: 2 mg Nystatin (Nystop Powder -) 1 applic TP DAILY [facility] Last Admin: 01/27/19 10:18 Dose: 1 applic Ondansetron HCl (Zofran -) 4 mg PO TID PRN PRN Reason: NAUSEA Polyethylene Glycol (Miralax (For Daily Use) -) 17 gm PO DAILY [facility] Last Admin: 01/27/19 10:22 Dose: 17 grams Fluticasone/Salmeterol (Advair 100mcg/50mcg -) 1 puff IH BID [facility] Last Admin: 01/27/19 10:19 Dose: 1 puff Silver Sulfadiazine (Silvadene -) 1 applic TP BID [facility] Last Admin: 01/27/19 10:20 Dose: 1 applic Tramadol HCl (Ultram -) 50 mg PO Q8H PRN PRN Reason: PAIN LEVEL 6-10 Last Admin: 01/27/19 15:29 Dose: 50 mg - Objective Vital Signs: Vital Signs Temperature 98.5 F 01/27/19 15:10 Pulse Rate 112 H 01/27/19 15:10 Respiratory Rate 20 01/27/19 15:10 Blood Pressure 98/52 L 01/27/19 15:10 O2 Sat by Pulse Oximetry (%) 95 01/27/19 12:04 Elderly sick looking F looks edematous, not in distress HEENT: facial puffiness anemia, no external trauma NECK; No JVd No BrUit CHEST: Congested equal AE no wheezes ABD: Obese, non tender EXT: Chu atous with multiple echymoses 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 Labs: CBC, BMP 01/27/19 05:20 01/27/19 05:20 INR, PTT INR 2.41 (0.83-1.09) H 01/27/19 05:20 Fibrinogen 474.0 mg/dL (238-498) 01/23/19 07:03 Problem List - Problems (1) Symptomatic anemia Assessment/Plan: ecived multile trasfusion still dropping H/H elevated LDH possibility of hemolytic process will discuss with hematology, no schitocytes renal functions ae stable other possibality but considering pancytopenia possibility of Bone marrow suppression due to Methimazole will DC F/U Thyroid profile. serial H/H Code(s): D64.9 - ANEMIA, UNSPECIFIED (2) Respiratory failure Assessment/Plan: Due to CHF exacerbation and sever anemia f/u clinical course Cardiology consult , received IV Lasix F/U BMP Code(s): J96.90 - RESPIRATORY FAILURE, UNSP, UNSP W HYPOXIA OR HYPERCAPNIA (3) CHF (NYHA class II, ACC/AHA stage C) Assessment/Plan: Cont current management F/U cardiology recommondation IV lasix 40mg recived in ED Code(s): I50.9 - HEART FAILURE, UNSPECIFIED (4) CKD (chronic kidney disease) Assessment/Plan: Stable F/U BMP Code(s): N18.9 - CHRONIC KIDNEY DISEASE, UNSPECIFIED Qualifiers: Chronic kidney disease stage: stage 4 (severe) Qualified Code(s): N18.4 - Chronic kidney disease, stage 4 (severe) (5) Persistent atrial fibrillation Assessment/Plan: Cont Diltizem and B Blockers F/U clinical course Pro BNP is at base line, cardiology consult. cont coumadin 2 mg F/U INR in am Code(s): I48.1 - PERSISTENT ATRIAL FIBRILLATION (6) COPD (chronic obstructive pulmonary disease) Assessment/Plan: ont Advair and Duoneb with ABX as per ID persistent infiltrates les likely Pneumonia F/U Procal Code(s): J44.9 - CHRONIC OBSTRUCTIVE PULMONARY DISEASE, UNSPECIFIED Qualifiers: COPD type: unspecified COPD Qualified Code(s): J44.9 - Chronic obstructive pulmonary disease, unspecified (7) Thyromegaly Assessment/Plan: TSH supressed off Methimazole T4 ormal will f/u Endo recommendations Code(s): E01.0 - IODINE-DEFICIENCY RELATED DIFFUSE (ENDEMIC) GOITER (8) Malnutrition Assessment/Plan: Low akbuamin F/U Pre albumin and Nutrition consult Code(s): E46 - UNSPECIFIED PROTEIN-CALORIE MALNUTRITION Qualifiers: Malnutrition type: protein-calorie malnutrition (9) Pressure ulcer Assessment/Plan: Gibbons catheter and wound care. Code(s): L89.90 - PRESSURE ULCER OF UNSPECIFIED SITE, UNSPECIFIED STAGE (10) Pancytopenia Assessment/Plan: Probaly due to methimazole improving. Code(s): D61.818 - OTHER PANCYTOPENIA (11) UTI (urinary tract infection) Assessment/Plan: ESBL E colli on meropenem Code(s): N39.0 - URINARY TRACT INFECTION, SITE NOT SPECIFIED (12) Hypotension Assessment/Plan: Spiked fever with Hypotention CARE TRAINER was called blood cultures are collected F/U clinical course recoved IV vancomycin 1 gm Code(s): I95.9 - HYPOTENSION, UNSPECIFIED
[2019-01-27] MEDS: MORPHINE SULFATE 2 MG/ML VIAL IVPUSH PRN (22:29)
--- NOTE | 2019-01-27 23:25 | PN ---
Progress Note, Physician Chief Complaint: sp hypotensive episode requiring iv fluid feeling anxious - Current Medication List Current Medications: Active Medications Acetaminophen (Tylenol -) 650 mg PO QID PRN PRN Reason: PAIN Last Admin: 01/26/19 22:20 Dose: 650 mg Albuterol/Ipratropium (Duoneb -) 1 amp NEB RQ4H [facility] Last Admin: 01/27/19 20:45 Dose: 1 amp Bacitracin (Bacitracin -) 1 applic TP DAILY [facility] Last Admin: 01/27/19 10:19 Dose: 1 applic Diltiazem HCl (Cardizem Cd -) 180 mg PO DAILY [facility] Last Admin: 01/27/19 10:34 Dose: Not Given Gabapentin (Neurontin -) 100 mg PO TID [facility] Last Admin: 01/27/19 22:15 Dose: 100 mg Meropenem 1 gm/ Dextrose 100 mls @ 200 mls/hr IVPB Q12H [facility] Last Admin: 01/27/19 15:29 Dose: 200 mls/hr Doxycycline Hyclate 100 mg/ (Dextrose) 100 mls @ 100 mls/hr IVPB BID [facility] Last Admin: 01/27/19 10:30 Dose: 100 mls/hr Amino Acids (Clinimix -) 1,000 mls @ 84 mls/hr IV Q12H [facility] Last Admin: 01/27/19 15:33 Dose: Not Given Lactated Ringer's (Lactated Ringers Solution) 1,000 ml in 1,000 mls @ 75 mls/ hr IV ASDIR [facility] Last Admin: 01/27/19 10:14 Dose: 75 mls/hr Metoprolol Succinate (Toprol Xl -) 50 mg PO HS [facility] Last Admin: 01/27/19 22:16 Dose: 50 mg Morphine Sulfate (Morphine Sulfate) 2 mg IVPUSH Q4H PRN PRN Reason: PAIN LEVEL 6-10 Last Admin: 01/27/19 22:29 Dose: 2 mg Nystatin (Nystop Powder -) 1 applic TP DAILY [facility] Last Admin: 01/27/19 10:18 Dose: 1 applic Ondansetron HCl (Zofran -) 4 mg PO TID PRN PRN Reason: NAUSEA Polyethylene Glycol (Miralax (For Daily Use) -) 17 gm PO DAILY [facility] Last Admin: 01/27/19 10:22 Dose: 17 grams Fluticasone/Salmeterol (Advair 100mcg/50mcg -) 1 puff IH BID [facility] Last Admin: 01/27/19 22:13 Dose: 1 puff Silver Sulfadiazine (Silvadene -) 1 applic TP BID [facility] Last Admin: 01/27/19 22:15 Dose: 1 applic Tramadol HCl (Ultram -) 50 mg PO Q8H PRN PRN Reason: PAIN LEVEL 6-10 Last Admin: 01/27/19 15:29 Dose: 50 mg - Objective Vital Signs: Vital Signs Temperature 98.4 F 01/27/19 19:09 Pulse Rate 116 H 01/27/19 19:09 Respiratory Rate 20 01/27/19 19:09 Blood Pressure 117/56 L 01/27/19 19:09 O2 Sat by Pulse Oximetry (%) 95 01/27/19 12:04 Constitutional: Yes: Anxious Eyes: Yes: EOM Intact HENT: Yes: Normocephalic Neck: Yes: Thyromegaly Cardiovascular: Yes: Tachycardia, Murmur Respiratory: Yes: On Nasal O2, SOB on Exertion, Tachypnea Gastrointestinal: Yes: Abdomen, Obese ...Rectal Exam: Yes: Deferred Genitourinary: Yes: WNL Musculoskeletal: Yes: Muscle Weakness Extremities: Yes: WNL Neurological: Yes: Alert, Oriented Labs: CBC, BMP 01/27/19 05:20 01/27/19 05:20 INR, PTT INR 2.41 (0.83-1.09) H 01/27/19 05:20 Fibrinogen 474.0 mg/dL (238-498) 01/23/19 07:03 Problem List - Problems (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 Assessment/Plan Current Active Problems sp hyperthyroidism tx with methimazole pancytopenia reaction to methimazole Anemia (Acute) Hypotension (Acute) Malnutrition (Acute) Pancytopenia (Acute) Pressure ulcer (Acute) Respiratory failure (Acute) SOB (shortness of breath) (Acute) Symptomatic anemia (Acute) Toxic diffuse goiter (Acute) UTI (urinary tract infection) (Acute) Abnormal Lab Results 01/27/19 01/27/19 01/27/19 02:42 02:42 02:42 RBC 2.57 L Hgb 7.7 L Hct 23.8 L RDW 19.5 H Monocytes % (Manual) 3 L Myelocytes % (Man) 6 H D Nucleated RBC % 12 H* Metamyelocytes PT with INR INR Chloride 108 H Anion Gap 7 L BUN 36.2 H Creatinine 2.1 H Random Glucose 108 H Lactic Acid 2.1 H Calcium 7.3 L Total Protein 3.6 L Albumin 1.2 L 01/27/19 01/27/19 01/27/19 05:20 05:20 05:20 RBC 2.62 L Hgb 7.9 L Hct 24.4 L RDW 19.7 H Monocytes % (Manual) Myelocytes % (Man) 5 H Nucleated RBC % 5 H Metamyelocytes 3 H D PT with INR 28.70 H INR 2.41 H Chloride Anion Gap BUN 36.2 H Creatinine 2.2 H Random Glucose Lactic Acid Calcium 7.4 L Total Protein Albumin plan: recheck tsh free t4 with follow progression may have recurrence of hyperthyroidism will iv fluids Current Medications Generic Name Dose Route Start Last Admin Trade Name Freq PRN Reason Stop Dose Admin Acetaminophen 650 mg 01/25/19 17:27 01/26/19 22:20 Tylenol - PO 650 mg QID PRN Administration PAIN Albuterol/Ipratropium 1 amp 01/25/19 20:00 01/27/19 20:45 Duoneb - NEB 1 amp RQ4H [facility] Administration Bacitracin 1 applic 01/25/19 16:30 01/27/19 10:19 Bacitracin - TP 1 applic DAILY [facility] Administration Diltiazem HCl 180 mg 01/26/19 10:00 01/27/19 10:34 Cardizem Cd - PO Not Given DAILY [facility] Gabapentin 100 mg 01/25/19 22:00 01/27/19 22:15 Neurontin - PO 100 mg TID [facility] Administration Meropenem 1 gm/ Dextrose 100 mls @ 200 mls/hr 01/25/19 14:00 01/27/19 15:29 IVPB 200 mls/hr Q12H [facility] Administration As Directed Doxycycline Hyclate 100 mg/ 100 mls @ 100 mls/hr 01/25/19 22:00 01/27/19 10: 30 Dextrose IVPB 100 mls/hr BID [facility] Administration Amino Acids 1,000 mls @ 84 mls/hr 01/27/19 09:15 01/27/19 15:33 Clinimix - IV Not Given Q12H [facility] Lactated Ringer's 1,000 ml in 1,000 mls @ 75 mls/hr 01/27/19 09:30 01/27/19 10:14 Lactated Ringers Solution IV 75 mls/hr ASDIR [facility] Administration Metoprolol Succinate 50 mg 01/25/19 22:00 01/27/19 22:16 Toprol Xl - PO 50 mg HS [facility] Administration Morphine Sulfate 2 mg 01/25/19 17:27 01/27/19 22:29 Morphine Sulfate IVPUSH 2 mg Q4H PRN Administration PAIN LEVEL 6-10 Nystatin 1 applic 01/26/19 10:00 01/27/19 10:18 Nystop Powder - TP 1 applic DAILY [facility] Administration Ondansetron HCl 4 mg 01/25/19 17:27 Zofran - PO TID PRN NAUSEA Polyethylene Glycol 17 gm 01/26/19 10:00 01/27/19 10:22 Miralax (For Daily Use) - PO 17 grams DAILY [facility] Administration Fluticasone/Salmeterol 1 puff 01/25/19 22:00 01/27/19 22:13 Advair 100mcg/50mcg - IH 1 puff BID [facility] Administration Silver Sulfadiazine 1 applic 01/25/19 22:00 01/27/19 22:15 Silvadene - TP 1 applic BID [facility] Administration Tramadol HCl 50 mg 01/25/19 17:27 01/27/19 15:29 Ultram - PO 50 mg Q8H PRN Administration PAIN LEVEL 6-10
[2019-01-28] MEDS: AMINO ACIDS 4.25%/D5W 1,000 ML IV SCH ×2 (01:05→09:51)
[2019-01-28] MEDS ORDERED: MEROPENEM 1 GM VIAL (RESTRICTED TO ID) IVPB ONE ×2 (01:32→13:06)
[2019-01-28] MEDS ORDERED: DEXTROSE 5%-WATER 100 ML IVPB ONE ×2 (01:32→13:06)
[2019-01-28] MEDS: MEROPENEM 1 GM in DEXTROSE 5%-WATER 100 ML IVPB SCH ×2 (01:34→13:39)
[2019-01-28] MEDS: ALBUTEROL SO4 2.5/IPRATROPIUM 0.5 INH SOL 3 ML VIAL.NEB. NEB SCH ×6 (04:00→20:23)
[2019-01-28] MEDS ORDERED: SODIUM CHLORIDE 500 ML IV STA (05:35)
[2019-01-28] MEDS: ACETAMINOPHEN 325 MG TABLET (FP) PO PRN ×3 (06:46→21:49)
[2019-01-28] MEDS: GABAPENTIN 100 MG CAPSULE (FP) PO SCH ×3 (06:48→21:47)
--- NOTE | 2019-01-28 07:28 | PN ---
Progress Note, Physician Chief Complaint: c/o feeling weak and lethargic last night drop in BP - Current Medication List Current Medications: Active Medications Acetaminophen (Tylenol -) 650 mg PO QID PRN PRN Reason: PAIN Last Admin: 01/28/19 06:46 Dose: 650 mg Albuterol/Ipratropium (Duoneb -) 1 amp NEB RQ4H [facility] Last Admin: 01/28/19 04:00 Dose: 1 amp Bacitracin (Bacitracin -) 1 applic TP DAILY [facility] Last Admin: 01/27/19 10:19 Dose: 1 applic Diltiazem HCl (Cardizem Cd -) 180 mg PO DAILY [facility] Last Admin: 01/27/19 10:34 Dose: Not Given Gabapentin (Neurontin -) 100 mg PO TID [facility] Last Admin: 01/28/19 06:48 Dose: 100 mg Meropenem 1 gm/ Dextrose 100 mls @ 200 mls/hr IVPB Q12H [facility] Last Admin: 01/28/19 01:34 Dose: 200 mls/hr Doxycycline Hyclate 100 mg/ (Dextrose) 100 mls @ 100 mls/hr IVPB BID [facility] Last Admin: 01/27/19 10:30 Dose: 100 mls/hr Amino Acids (Clinimix -) 1,000 mls @ 84 mls/hr IV Q12H [facility] Last Admin: 01/28/19 01:05 Dose: 84 mls/hr Lactated Ringer's (Lactated Ringers Solution) 1,000 ml in 1,000 mls @ 75 mls/ hr IV ASDIR [facility] Last Admin: 01/27/19 10:14 Dose: 75 mls/hr Metoprolol Succinate (Toprol Xl -) 50 mg PO HS [facility] Last Admin: 01/27/19 22:16 Dose: 50 mg Morphine Sulfate (Morphine Sulfate) 2 mg IVPUSH Q4H PRN PRN Reason: PAIN LEVEL 6-10 Last Admin: 01/27/19 22:29 Dose: 2 mg Nystatin (Nystop Powder -) 1 applic TP DAILY [facility] Last Admin: 01/27/19 10:18 Dose: 1 applic Ondansetron HCl (Zofran -) 4 mg PO TID PRN PRN Reason: NAUSEA Polyethylene Glycol (Miralax (For Daily Use) -) 17 gm PO DAILY [facility] Last Admin: 01/27/19 10:22 Dose: 17 grams Fluticasone/Salmeterol (Advair 100mcg/50mcg -) 1 puff IH BID [facility] Last Admin: 01/27/19 22:13 Dose: 1 puff Silver Sulfadiazine (Silvadene -) 1 applic TP BID [facility] Last Admin: 01/27/19 22:15 Dose: 1 applic Tramadol HCl (Ultram -) 50 mg PO Q8H PRN PRN Reason: PAIN LEVEL 6-10 Last Admin: 01/27/19 15:29 Dose: 50 mg - Objective Vital Signs: Vital Signs Temperature 100.3 F H 01/28/19 06:00 Pulse Rate 98 H 01/28/19 06:00 Respiratory Rate 20 01/28/19 06:00 Blood Pressure 107/47 L 01/28/19 06:00 O2 Sat by Pulse Oximetry (%) 98 01/28/19 00:00 Elderly sick looking F looks edematous, not in distress HEENT: facial puffiness anemia, no external trauma NECK; No JVd No BrUit CHEST: Congested equal AE no wheezes ABD: Obese, non tender EXT: Edematous with multiple echymoses 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 Labs: CBC, BMP 01/28/19 06:00 01/28/19 06:00 INR, PTT INR 2.37 (0.83-1.09) H 01/28/19 06:00 Fibrinogen 474.0 mg/dL (238-498) 01/23/19 07:03 Problem List - Problems (1) Symptomatic anemia Assessment/Plan: Stable after transfusion will monitor cont PPI Code(s): D64.9 - ANEMIA, UNSPECIFIED (2) Respiratory failure Assessment/Plan: Due to CHF exacerbation and sever anemia improving on Nebs and PO Lasix Code(s): J96.90 - RESPIRATORY FAILURE, UNSP, UNSP W HYPOXIA OR HYPERCAPNIA (3) CHF (NYHA class II, ACC/AHA stage C) Assessment/Plan: Cont current management F/U cardiology recommendation PO lasix 40mg daily Code(s): I50.9 - HEART FAILURE, UNSPECIFIED (4) CKD (chronic kidney disease) Assessment/Plan: Stable F/U BMP Code(s): N18.9 - CHRONIC KIDNEY DISEASE, UNSPECIFIED Qualifiers: Chronic kidney disease stage: stage 4 (severe) Qualified Code(s): N18.4 - Chronic kidney disease, stage 4 (severe) (5) Persistent atrial fibrillation Assessment/Plan: Will discuss with cardiology to start on Gigoxine as not tolerating B Blockers or Diltizem due to BP INR therapeutic off coumadin F/U INR in am Code(s): I48.1 - PERSISTENT ATRIAL FIBRILLATION (6) COPD (chronic obstructive pulmonary disease) Assessment/Plan: ont Advair and Duoneb with ABX as per ID persistent infiltrates less likely pneumonia Code(s): J44.9 - CHRONIC OBSTRUCTIVE PULMONARY DISEASE, UNSPECIFIED Qualifiers: COPD type: unspecified COPD Qualified Code(s): J44.9 - Chronic obstructive pulmonary disease, unspecified (7) Thyromegaly Assessment/Plan: F/U Endo recommendation will F/U TSH Code(s): E01.0 - IODINE-DEFICIENCY RELATED DIFFUSE (ENDEMIC) GOITER (8) Malnutrition Assessment/Plan: Low albumin F/U Pre albumin and Nutrition consult Code(s): E46 - UNSPECIFIED PROTEIN-CALORIE MALNUTRITION Qualifiers: Malnutrition type: protein-calorie malnutrition (9) Pressure ulcer Assessment/Plan: Gibbons catheter and wound care. cont current abx Code(s): L89.90 - PRESSURE ULCER OF UNSPECIFIED SITE, UNSPECIFIED STAGE (10) Pancytopenia Assessment/Plan: Probably due to methimazole improving. Code(s): D61.818 - OTHER PANCYTOPENIA (11) UTI (urinary tract infection) Assessment/Plan: ESBL E colli on meropenem Code(s): N39.0 - URINARY TRACT INFECTION, SITE NOT SPECIFIED (12) Hypotension Assessment/Plan: Spiked fever with Hypotention Central line changed on Meropenem and doxycycline , Line tip culture sent Code(s): I95.9 - HYPOTENSION, UNSPECIFIED
[2019-01-28 08:03] LABS: BASO % 0.3 % (0-2.0); EOS % 0.8 % (0-4.5); HEMATOCRIT 23.5 % (32.4-45.2); HEMOGLOBIN 7.6 GM/dL (10.7-15.3); LYMPH % 22.1 % (8-40); MCH 30.2 pg (25.7-33.7); MCHC 32.3 g/dl (32.0-36.0); MEAN CELL VOLUME 93.4 fl (80-96); MEAN PLT VOLUME 9.2 fl (7.5-11.1); MONO % 4.8 % (3.8-10.2); PLATELET COUNT 171 K/MM3 (134-434); RBC 2.51 M/mm3 (3.60-5.2); RDW 19.9 % (11.6-15.6)
[2019-01-28 08:08] LABS: CALCIUM 7.5 mg/dL (8.5-10.1); CREATININE 2.1 mg/dL (0.55-1.3); POTASSIUM 4.3 mmol/L (3.5-5.1)
[2019-01-28 08:12] LABS: INR 2.37 (0.83-1.09); PROTHROMBIN TIME (PATIENT) 28.2 SEC (9.7-13.0)
--- NOTE | 2019-01-28 08:31 | PN ---
Progress Note (short form) - Note Progress Note: Feels weak. Hemodynamics marginal but responsive to IVF. Only 1 lumen on TLC is functioning. No CP. SOB overall improving. No acute events overnight. Intake & Output 01/25/19 01/26/19 01/27/19 01/28/19 23:59 23:59 23:59 23:59 Intake Total 760 200 800 750 Output Total 500 550 500 400 Balance 260 -350 300 350 Weight 229 lb 12.8 oz 242 lb 1.6 oz Last Vital Signs Temp Pulse Resp BP Pulse Ox 100.3 F H 98 H 20 107/47 L 94 L 01/28/19 06:00 01/28/19 06:00 01/28/19 06:00 01/28/19 06:00 01/28/19 07:50 Active Medications Acetaminophen (Tylenol -) 650 mg PO QID PRN PRN Reason: PAIN Last Admin: 01/28/19 06:46 Dose: 650 mg Albuterol/Ipratropium (Duoneb -) 1 amp NEB RQ4H [facility] Last Admin: 01/28/19 07:50 Dose: 1 amp Bacitracin (Bacitracin -) 1 applic TP DAILY [facility] Last Admin: 01/27/19 10:19 Dose: 1 applic Diltiazem HCl (Cardizem Cd -) 180 mg PO DAILY [facility] Last Admin: 01/27/19 10:34 Dose: Not Given Gabapentin (Neurontin -) 100 mg PO TID [facility] Last Admin: 01/28/19 06:48 Dose: 100 mg IV Flush (Triple Lumen Flush) 4 ml IVPUSH PRN PRN PRN Reason: Protocol Meropenem 1 gm/ Dextrose 100 mls @ 200 mls/hr IVPB Q12H [facility] Last Admin: 01/28/19 01:34 Dose: 200 mls/hr Doxycycline Hyclate 100 mg/ (Dextrose) 100 mls @ 100 mls/hr IVPB BID [facility] Last Admin: 01/27/19 10:30 Dose: 100 mls/hr Amino Acids (Clinimix -) 1,000 mls @ 84 mls/hr IV Q12H [facility] Last Admin: 01/28/19 01:05 Dose: 84 mls/hr Lactated Ringer's (Lactated Ringers Solution) 1,000 ml in 1,000 mls @ 75 mls/ hr IV ASDIR [facility] Last Admin: 01/27/19 10:14 Dose: 75 mls/hr Metoprolol Succinate (Toprol Xl -) 50 mg PO HS [facility] Last Admin: 01/27/19 22:16 Dose: 50 mg Morphine Sulfate (Morphine Sulfate) 2 mg IVPUSH Q4H PRN PRN Reason: PAIN LEVEL 6-10 Last Admin: 01/27/19 22:29 Dose: 2 mg Nystatin (Nystop Powder -) 1 applic TP DAILY [facility] Last Admin: 01/27/19 10:18 Dose: 1 applic Ondansetron HCl (Zofran -) 4 mg PO TID PRN PRN Reason: NAUSEA Polyethylene Glycol (Miralax (For Daily Use) -) 17 gm PO DAILY [facility] Last Admin: 01/27/19 10:22 Dose: 17 grams Fluticasone/Salmeterol (Advair 100mcg/50mcg -) 1 puff IH BID [facility] Last Admin: 01/27/19 22:13 Dose: 1 puff Silver Sulfadiazine (Silvadene -) 1 applic TP BID [facility] Last Admin: 01/27/19 22:15 Dose: 1 applic Tramadol HCl (Ultram -) 50 mg PO Q8H PRN PRN Reason: PAIN LEVEL 6-10 Last Admin: 01/27/19 15:29 Dose: 50 mg Gen: Awake and alert, mildly tachypneic with speaking Heart: RRR Lung: scattered rhonchi Abd: soft, nontender Ext: no edema Laboratory Results - last 24 hr 01/27/19 01/27/19 01/28/19 02:42 05:20 06:00 WBC 6.7 Corrected WBC (auto) 6.25 RBC 2.51 L Hgb 7.6 L Hct 23.5 L MCV 93.4 MCH 30.2 MCHC 32.3 RDW 19.9 H Plt Count 171 MPV 9.2 Absolute Neuts (auto) 4.9 Neutrophils % 72.0 Neutrophils % (Manual) 52.0 56.0 Band Neutrophils % 13.3 6.0 Lymphocytes % 22.1 Lymphocytes % (Manual) 24.5 D 22.0 Monocytes % 4.8 Monocytes % (Manual) 3 L 4 Eosinophils % 0.8 Eosinophils % (Manual) 1.0 1.0 Basophils % 0.3 Basophils % (Manual) 0.0 0.0 Myelocytes % (Man) 6 H D 5 H Promyelocytes % (Man) 0 0 Blast Cells % (Manual) 0 0 Nucleated RBC % 12 H* 4 H Metamyelocytes 0 3 H D Hypochromia 0 1+ Platelet Estimate Normal Decreased Polychromasia 1+ 1+ Poikilocytosis 0 0 Basophilic Stippling 1+ 1+ Anisocytosis 2+ 1+ Microcytosis 1+ 1+ Macrocytosis 0 0 PT with INR INR Sodium Potassium Chloride Carbon Dioxide Anion Gap BUN Creatinine Est GFR (CKD-EPI)AfAm Est GFR (CKD-EPI)NonAf Random Glucose Calcium TSH Free T4 01/28/19 01/28/19 01/28/19 06:00 06:00 06:00 WBC Corrected WBC (auto) RBC Hgb Hct MCV MCH MCHC RDW Plt Count MPV Absolute Neuts (auto) Neutrophils % Neutrophils % (Manual) Band Neutrophils % Lymphocytes % Lymphocytes % (Manual) Monocytes % Monocytes % (Manual) Eosinophils % Eosinophils % (Manual) Basophils % Basophils % (Manual) Myelocytes % (Man) Promyelocytes % (Man) Blast Cells % (Manual) Nucleated RBC % Metamyelocytes Hypochromia Platelet Estimate Polychromasia Poikilocytosis Basophilic Stippling Anisocytosis Microcytosis Macrocytosis PT with INR 28.20 H INR 2.37 H Sodium 138 Potassium 4.3 Chloride 105 Carbon Dioxide 28 Anion Gap 5 L BUN 43.0 H Creatinine 2.1 H Est GFR (CKD-EPI)AfAm 23.59 Est GFR (CKD-EPI)NonAf 20.35 Random Glucose 95 Calcium 7.5 L TSH 0.57 Free T4 1.03 ASSESSMENT AND PLAN: Acute on Chronic Hypoxic Respiratory Failure UTI Sacral Decubitus Infection Gram Positive Bacteremia Sepsis COPD Atrial Fibrillation LV Systolic/Diastolic Dysfunction CKD Pancytopenia Anemia requiring PRBC transfusions Goiter with Tracheal compression - Will need TLC change: IR order placed - continue antibiotics per ID - Local wound care per surgery - monitor CBC - O2 to keep Spo2 >90% - NIPPV needed to assist in work of breathing - inhaled bronchodilators - rate control - anticoagulation to target INR 2-3 Dr Amaya
--- NOTE | 2019-01-28 08:42 | PN ---
Progress Note, Physician History of Present Illness: patient not feeling well low bp line not working well received bolus - Current Medication List Current Medications: Active Medications Acetaminophen (Tylenol -) 650 mg PO QID PRN PRN Reason: PAIN Last Admin: 01/28/19 06:46 Dose: 650 mg Albuterol/Ipratropium (Duoneb -) 1 amp NEB RQ4H [facility] Last Admin: 01/28/19 07:50 Dose: 1 amp Bacitracin (Bacitracin -) 1 applic TP DAILY [facility] Last Admin: 01/27/19 10:19 Dose: 1 applic Diltiazem HCl (Cardizem Cd -) 180 mg PO DAILY [facility] Last Admin: 01/27/19 10:34 Dose: Not Given Gabapentin (Neurontin -) 100 mg PO TID [facility] Last Admin: 01/28/19 06:48 Dose: 100 mg IV Flush (Triple Lumen Flush) 4 ml IVPUSH PRN PRN PRN Reason: Protocol Meropenem 1 gm/ Dextrose 100 mls @ 200 mls/hr IVPB Q12H [facility] Last Admin: 01/28/19 01:34 Dose: 200 mls/hr Doxycycline Hyclate 100 mg/ (Dextrose) 100 mls @ 100 mls/hr IVPB BID [facility] Last Admin: 01/27/19 10:30 Dose: 100 mls/hr Amino Acids (Clinimix -) 1,000 mls @ 84 mls/hr IV Q12H [facility] Last Admin: 01/28/19 01:05 Dose: 84 mls/hr Lactated Ringer's (Lactated Ringers Solution) 1,000 ml in 1,000 mls @ 75 mls/ hr IV ASDIR [facility] Last Admin: 01/27/19 10:14 Dose: 75 mls/hr Metoprolol Succinate (Toprol Xl -) 50 mg PO HS [facility] Last Admin: 01/27/19 22:16 Dose: 50 mg Morphine Sulfate (Morphine Sulfate) 2 mg IVPUSH Q4H PRN PRN Reason: PAIN LEVEL 6-10 Last Admin: 01/27/19 22:29 Dose: 2 mg Nystatin (Nystop Powder -) 1 applic TP DAILY [facility] Last Admin: 01/27/19 10:18 Dose: 1 applic Ondansetron HCl (Zofran -) 4 mg PO TID PRN PRN Reason: NAUSEA Polyethylene Glycol (Miralax (For Daily Use) -) 17 gm PO DAILY [facility] Last Admin: 01/27/19 10:22 Dose: 17 grams Fluticasone/Salmeterol (Advair 100mcg/50mcg -) 1 puff IH BID [facility] Last Admin: 01/27/19 22:13 Dose: 1 puff Silver Sulfadiazine (Silvadene -) 1 applic TP BID [facility] Last Admin: 01/27/19 22:15 Dose: 1 applic Tramadol HCl (Ultram -) 50 mg PO Q8H PRN PRN Reason: PAIN LEVEL 6-10 Last Admin: 01/27/19 15:29 Dose: 50 mg - Objective Vital Signs: Vital Signs Temperature 100.3 F H 01/28/19 06:00 Pulse Rate 98 H 01/28/19 06:00 Respiratory Rate 20 01/28/19 06:00 Blood Pressure 107/47 L 01/28/19 06:00 O2 Sat by Pulse Oximetry (%) 94 L 01/28/19 07:50 Constitutional: Yes: Calm, Mild Distress Cardiovascular: Yes: S1, S2 Respiratory: Yes: Regular, On Nasal O2, Poor Air Entry Gastrointestinal: Yes: Normal Bowel Sounds, Soft Musculoskeletal: Yes: WNL Extremities: Yes: WNL Neurological: Yes: Alert, Oriented Psychiatric: Yes: Alert, Oriented Labs: CBC, BMP 01/28/19 06:00 01/28/19 06:00 INR, PTT INR 2.37 (0.83-1.09) H 01/28/19 06:00 Fibrinogen 474.0 mg/dL (238-498) 01/23/19 07:03 Assessment/Plan Problem List - Problems (1) Respiratory failure Code(s): J96.90 - RESPIRATORY FAILURE, UNSP, UNSP W HYPOXIA OR HYPERCAPNIA (2) SOB (shortness of breath) Code(s): R06.02 - SHORTNESS OF BREATH (3) Symptomatic anemia Code(s): D64.9 - ANEMIA, UNSPECIFIED (4) Acute on chronic renal failure Code(s): N17.9 - ACUTE KIDNEY FAILURE, UNSPECIFIED; N18.9 - CHRONIC KIDNEY DISEASE, UNSPECIFIED (5) Afib Code(s): I48.91 - UNSPECIFIED ATRIAL FIBRILLATION Qualifiers: Atrial fibrillation type: chronic Qualified Code(s): I48.2 - Chronic atrial fibrillation (6) CHF (NYHA class II, ACC/AHA stage C) Code(s): I50.9 - HEART FAILURE, UNSPECIFIED (7) CKD (chronic kidney disease) Code(s): N18.9 - CHRONIC KIDNEY DISEASE, UNSPECIFIED Qualifiers: Chronic kidney disease stage: stage 4 (severe) Qualified Code(s): N18.4 - Chronic kidney disease, stage 4 (severe) (8) COPD (chronic obstructive pulmonary disease) Code(s): J44.9 - CHRONIC OBSTRUCTIVE PULMONARY DISEASE, UNSPECIFIED Qualifiers: COPD type: unspecified COPD Qualified Code(s): J44.9 - Chronic obstructive pulmonary disease, unspecified (9) Hypercholesteremia Code(s): E78.00 - PURE HYPERCHOLESTEROLEMIA, UNSPECIFIED (10) Hypertension Code(s): I10 - ESSENTIAL (PRIMARY) HYPERTENSION (11) Hyperthyroidism Code(s): E05.90 - THYROTOXICOSIS, UNSP WITHOUT THYROTOXIC CRISIS OR STORM (12) Obese Code(s): E66.9 - OBESITY, UNSPECIFIED (13) Sacral decubitus ulcer, stage II Code(s): L89.152 - PRESSURE ULCER OF SACRAL REGION, STAGE 2 (14) Thyromegaly Code(s): E01.0 - IODINE-DEFICIENCY RELATED DIFFUSE (ENDEMIC) GOITER (15) Tracheal compression Code(s): J39.8 - OTHER SPECIFIED DISEASES OF UPPER RESPIRATORY TRACT (16) UTI (urinary tract infection) Code(s): N39.0 - URINARY TRACT INFECTION, SITE NOT SPECIFIED Qualifiers: Urinary tract infection type: site unspecified Hematuria presence: without hematuria Qualified Code(s): N39.0 - Urinary tract infection, site not specified Assessment/Plan 88 y.o. female with PMH of COPD on home O2, CHF, ASHD, HTN, HLD, CKD, diverticultis/ ? ischemic colitis s/p partial colectomy, s/p JW/BSO, chronic cough/persistent pulmonary infiltrates, multinodular goiter with partial tracheal compression, and anemia presents with c/o worsening SOB over the past week with subjective fever/chills. Fever Gram positive bacteremia UTI Acute hypoxic respiratory failure Possible HCAP Groin rash/excoriations Pancytopenia - ? due to Methimazole Multinodular goiter with partial tracheal compression COPD Hx of CKD AFIB CHF ASHD HTN HLD plan would suggest to remove the central line send cx from the line place a new line continue abx rest as per the team
[2019-01-28] MEDS: FLUTICASONE/SALMETEROL 100 MCG/50 MCG DISKUS IH SCH ×2 (09:52→21:47)
[2019-01-28] MEDS: BACITRACIN 15 GM TUBE TOPICAL OINTMENT TP SCH (09:52)
[2019-01-28] MEDS: POLYETHYLENE GLYCOL 3350 119 GM BTL PO SCH (09:53)
[2019-01-28] MEDS: DOXYCYCLINE INJECTION 100 MG in DEXTROSE 5%-WATER - 100 ML IVPB SCH ×2 (09:54→21:52)
[2019-01-28] MEDS: SILVER SULFADIAZINE 1% TOP CREAM 400 GM JAR TP SCH ×2 (09:55→21:52)
[2019-01-28] MEDS: NYSTATIN POWDER 100,000 UNITS/GM - 15 GM TOPICAL POWDER TP SCH (09:55)
[2019-01-28] MEDS: traMADol HCL 50 MG TABLET PO PRN (10:21)
[2019-01-28 11:40] LABS: ANISOCYTOSIS 1+; PLATELET ESTIMATE NORMAL
[2019-01-28 11:48] LABS: CORRECTED WBC 6.49 K/mm3
[2019-01-28 11:59] LABS: WHITE BLOOD COUNT 7.2 K/mm3 (4.0-10.0)
[2019-01-28] MEDS: LACTATED RINGERS SOLUTION 1,000 ML/1,000 ML INFUS.BAG IV SCH (15:08)
[2019-01-28 17:18] LABS: BASO % 0.2 % (0-2.0); EOS % 0.8 % (0-4.5); HEMATOCRIT 24.9 % (32.4-45.2); LYMPH % 20.9 % (8-40); MCH 29.9 pg (25.7-33.7); MEAN CELL VOLUME 93.6 fl (80-96); MONO % 4.7 % (3.8-10.2); NEUT % 73.4 % (42.8-82.8); PLATELET COUNT 191 K/MM3 (134-434); RBC 2.66 M/mm3 (3.60-5.2); RDW 19.9 % (11.6-15.6)
[2019-01-28 18:39] LABS: INR 2.37 (0.83-1.09); PROTHROMBIN TIME (PATIENT) 28.2 SEC (9.7-13.0)
[2019-01-28 19:45] LABS: ANISOCYTOSIS 1+; MACROCYTOSIS 0; PLATELET ESTIMATE NORMAL
--- NOTE | 2019-01-28 20:16 | PN ---
Progress Note (short form) - Note Progress Note: improving thyroid function dyspnea at rest Current Active Problems Anemia (Acute) Hypotension (Acute) Malnutrition (Acute) Pancytopenia (Acute) Pressure ulcer (Acute) Respiratory failure (Acute) SOB (shortness of breath) (Acute) Symptomatic anemia (Acute) Toxic diffuse goiter (Acute) UTI (urinary tract infection) (Acute) Abnormal Lab Results 01/28/19 01/28/19 01/28/19 06:00 06:00 06:00 RBC 2.51 L Hgb 7.6 L Hct 23.5 L RDW 19.9 H Monocytes % (Manual) 2 L Myelocytes % (Man) 3 H D Nucleated RBC % 11 H* Metamyelocytes PT with INR 28.20 H INR 2.37 H Anion Gap 5 L BUN 43.0 H Creatinine 2.1 H Calcium 7.5 L Crossmatch 01/28/19 01/28/19 01/28/19 16:55 16:55 17:45 RBC 2.66 L Hgb 8.0 L Hct 24.9 L RDW 19.9 H Monocytes % (Manual) 3 L Myelocytes % (Man) 3 H Nucleated RBC % 5 H Metamyelocytes 3 H D PT with INR 28.20 H INR 2.37 H Anion Gap BUN Creatinine Calcium Crossmatch See Detail Laboratory Tests 01/28/19 01/28/19 06:00 06:00 TSH 0.57 Free T4 1.03 plan: euthyroid follow tfts repeat in2-3 weeks Problem List - Problems (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
--- NOTE | 2019-01-28 20:36 | CON.GI ---
Consult Consult Specialty:: Gastroenterology Referred by:: Marjorie Cullen MD Reason for Consultation:: "Black stool" - History of Present Illness Chief Complaint: Respiratory distress History of Present Illness: 88F is admitted with dyspnea and weakness related to severe anemia. Her anemia and pancytopenai have been attributed to methimazole that was started in 01/08 when her airway was compromised by her thyroid. She denies any overt GI bleeding. She denies taking NSAIDs. She had several colonoscopies with me on the past and has had polyps removed. In 2007 she was found to have ischemic colitis. She had two partial colectomies leaving her with ileo-right hemicolectomy and mid-transverse anastomoses. She has never had a EGD. She denies heartburn, dysphagia, early satiety or loss of appetite. 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 pylori gastirtis), Other (ischemic colitis, h/o colon polyps, C diff colitis 05/09) Renal/: Yes: Renal Inusuff ...: No Heme/Onc: Yes: Anemia, Thrombocytopenia Endocrine: Yes: Other (multinodular goiter) - Past Surgical History Past Surgical History: Yes: None, Appendectomy, Colectomy (partial colectomies x 2 for diverticulitis and/or ischemic colitis), Colonoscopy, Hernia Repair ( umbilical hernia repair), Hysterectomy (JW/BSO with appendectomy ), Joint Replacement (bilateral hip replacements) - Alcohol/Substance Use Hx Alcohol Use: No History of Substance Use: reports: None - Smoking History Smoking history: Never smoked Have you smoked in the past 12 months: No Aproximately how many cigarettes per day: 0 If you are a former smoker, when did you quit?: many years - Social History Usual Living Arrangement: Care Home ADL: Support Services Place of : [facility] History of Recent Travel: No Home Medications - Allergies Allergies/Adverse Reactions: Allergies Allergy/AdvReac Type Severity Reaction Status Date / Time methimazole Allergy Severe Verified 01/24/19 19:40 Penicillins Allergy Verified 01/22/19 16:41 procaine Allergy Verified 01/22/19 16:41 - Home Medications Home Medications: Ambulatory Orders Acetaminophen [Tylenol] 650 mg PO QID PRN 12/28/18 Ascorbic Acid [Vitamin C] 500 mg PO DAILY 12/28/18 Aspirin 81 mg PO DAILY 12/28/18 Metoprolol Succinate [Toprol Xl] 50 mg PO HS 12/28/18 Ondansetron HCl [Zofran] 4 mg PO TID PRN 12/28/18 Salmeterol/Fluticasone [Advair 100Mcg/50Mcg -] 1 inh PO BID 12/28/18 Tramadol HCl 50 mg PO BID PRN 12/28/18 Albuterol 2.5/Ipratropium 0.5 [Duoneb -] 1 amp NEB RQ4H amp 01/12/19 Allopurinol [Zyloprim -] 100 mg PO DAILY tablet 01/12/19 Chlorhexidine Gluconate [Hibiclens For Decolonization -] 1 applic TP HS bottle 01/12/19 Furosemide [Lasix -] 40 mg PO DAILY tablet 01/12/19 Gabapentin [Neurontin -] 100 mg PO TID capsule 01/12/19 Methimazole [Tapazole -] 10 mg PO TID tablet 01/12/19 Nystatin Powder [Nystop Powder -] 1 applic TP DAILY applic 01/12/19 Ranitidine [Zantac -] 150 mg PO DAILY tablet 01/12/19 traMADol HCL [Ultram -] 50 mg PO Q8H PRN #30 tablet MDD 2 01/12/19 Diltiazem Cd [Cardizem Cd -] 180 mg PO DAILY cap.cd.24h 01/13/19 predniSONE [Deltasone -] 40 mg PO DAILY tablet 01/13/19 Lanolin Alcohol/Mo/W.pet/[place] [Eucerin Creme] 113 gm TP BID 01/22/19 Polyethylene Glycol 3350 [Miralax (For Daily Use) -] 17 gm PO DAILY 01/22/19 Silver Sulfadiazine 1% Top Cr [Silvadene -] 1 applic TP DAILY 01/22/19 Warfarin Na [Coumadin] 3 mg PO HS 01/22/19 Family Disease History - Family Disease History Family Disease History: CA: Son (bladder ca, Crohns Disease), Other: Father ( unknown), Mother ( 92), Daughter ( of asthma) Review of Systems - Review of Systems Constitutional: reports: Lethargy 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 HENT: reports: No Symptoms Neck: reports: No Symptoms Cardiovascular: reports: Palpitations Respiratory: reports: Exercise Intolerance, SOB on Exertion Gastrointestinal: reports: Constipation Musculoskeletal: reports: Back Pain Integumentary: reports: Other (sacral and inguinal decubiti) Physical Exam-GI Vital Signs: Vital Signs Temperature 98.6 F 01/28/19 18:45 Pulse Rate 107 H 01/28/19 18:45 Respiratory Rate 20 01/28/19 18:45 Blood Pressure 110/69 01/28/19 18:45 O2 Sat by Pulse Oximetry (%) 94 L 01/28/19 16:34 CBC,CMP WBC 9.0 K/mm3 (4.0-10.0) 01/28/19 16:55 Corrected WBC (auto) 6.49 K/mm3 01/28/19 06:00 RBC 2.66 M/mm3 (3.60-5.2) L 01/28/19 16:55 Hgb 8.0 GM/dL (10.7-15.3) L 01/28/19 16:55 Hct 24.9 % (32.4-45.2) L 01/28/19 16:55 MCV 93.6 fl (80-96) 01/28/19 16:55 MCH 29.9 pg (25.7-33.7) 01/28/19 16:55 MCHC 32.0 g/dl (32.0-36.0) 01/28/19 16:55 RDW 19.9 % (11.6-15.6) H 01/28/19 16:55 Plt Count 191 K/MM3 (134-434) 01/28/19 16:55 MPV 9.0 fl (7.5-11.1) 01/28/19 16:55 Absolute Neuts (auto) 6.6 K/mm3 (1.5-8.0) 01/28/19 16:55 Neutrophils % 73.4 % (42.8-82.8) 01/28/19 16:55 Neutrophils % (Manual) 66.0 % (42.8-82.8) 01/28/19 16:55 Band Neutrophils % 5.8 % 01/28/19 16:55 Lymphocytes % 20.9 % (8-40) 01/28/19 16:55 Lymphocytes % (Manual) 17.5 % (8-40) 01/28/19 16:55 Monocytes % 4.7 % (3.8-10.2) 01/28/19 16:55 Monocytes % (Manual) 3 % (3.8-10.2) L 01/28/19 16:55 Eosinophils % 0.8 % (0-4.5) 01/28/19 16:55 Eosinophils % (Manual) 1.0 % (0-4.5) 01/28/19 16:55 Basophils % 0.2 % (0-2.0) 01/28/19 16:55 Basophils % (Manual) 0.0 % (0-2.0) 01/28/19 16:55 Myelocytes % (Man) 3 % (0-2) H 01/28/19 16:55 Promyelocytes % (Man) 0 % (0-2) 01/28/19 16:55 Blast Cells % (Manual) 0 % (0-0) 01/28/19 16:55 Nucleated RBC % 5 % (0-0) H 01/28/19 16:55 Metamyelocytes 3 % (0-2) H D 01/28/19 16:55 Hypochromia 1+ 01/28/19 16:55 Platelet Estimate Normal 01/28/19 16:55 Polychromasia 1+ 01/28/19 16:55 Poikilocytosis 0 01/28/19 16:55 Basophilic Stippling 1+ 01/27/19 05:20 Anisocytosis 1+ 01/28/19 16:55 Microcytosis 1+ 01/28/19 16:55 Macrocytosis 0 01/28/19 16:55 Ovalocytes 1+ 01/22/19 20:00 Retic Count 3.30 % (0.5-1.5) H D 01/23/19 Unknown Haptoglobin 188 mg/dL (34-200) 01/23/19 02:45 Sodium 138 mmol/L (136-145) 01/28/19 06:00 Potassium 4.3 mmol/L (3.5-5.1) 01/28/19 06:00 Chloride 105 mmol/L (98-107) 01/28/19 06:00 Carbon Dioxide 28 mmol/L (21-32) 01/28/19 06:00 Anion Gap 5 MMOL/L (8-16) L 01/28/19 06:00 BUN 43.0 mg/dL (7-18) H 01/28/19 06:00 Creatinine 2.1 mg/dL (0.55-1.3) H 01/28/19 06:00 Est GFR (CKD-EPI)AfAm 23.59 01/28/19 06:00 Est GFR (CKD-EPI)NonAf 20.35 01/28/19 06:00 Random Glucose 95 mg/dL (74-106) 01/28/19 06:00 Lactic Acid 2.0 mmol/L (0.4-2.0) 01/27/19 05:20 Calcium 7.5 mg/dL (8.5-10.1) L 01/28/19 06:00 Phosphorus 2.6 mg/dL (2.5-4.9) 01/26/19 06:23 Magnesium 2.0 mg/dL (1.8-2.4) 01/26/19 06:23 Iron 17 ug/dL (50-175) L 01/23/19 07:03 TIBC 173 ug/dL (250-450) L 01/23/19 07:03 Iron Saturation 9 % (17.5-39) L 01/23/19 07:03 Unsaturated IBC 156 ug/dL (200-275) L 01/23/19 07:03 Ferritin 112.0 ng/ml (8-388) 01/23/19 07:03 Total Bilirubin 0.3 mg/dL (0.2-1) 01/27/19 02:42 AST 21 U/L (15-37) 01/27/19 02:42 ALT 18 U/L (13-61) 01/27/19 02:42 Alkaline Phosphatase 48 U/L (45-117) 01/27/19 02:42 LD Total 443 U/L (84-246) H 01/23/19 02:45 B-Natriuretic Peptide 3824.3 pg/ml (5-450) H 01/22/19 20:00 Total Protein 3.6 g/dl (6.4-8.2) L 01/27/19 02:42 Albumin 1.2 g/dl (3.4-5.0) L 01/27/19 02:42 Prealbumin 10.6 mg/dl (20-40) L 01/24/19 05:35 Vitamin B12 2286 pg/ml (193-986) H 01/24/19 05:35 Serum Folate 24 ng/mL (3.1-17.5) H 01/24/19 05:35 Procalcitonin 0.56 ng/mL (0.00-0.08) H 01/23/19 12:50 TSH 0.57 uIU/ml (0.358-3.74) 01/28/19 06:00 Free T4 1.03 ng/dl (0.76-1.46) 01/28/19 06:00 Free T3 1.1 pg/ml (2.0-4.4) L 01/23/19 07:03 Total T3 41.00 ng/dl (71-180) L 01/23/19 07:03 Current Medications Generic Name Dose Route Start Last Admin Trade Name Freq PRN Reason Stop Dose Admin Acetaminophen 650 mg 01/25/19 17:27 01/28/19 15:09 Tylenol - PO 650 mg QID PRN Administration PAIN Albuterol/Ipratropium 1 amp 01/25/19 20:00 01/28/19 20:23 Duoneb - NEB 1 amp RQ4H [facility] Administration Bacitracin 1 applic 01/25/19 16:30 01/28/19 09:52 Bacitracin - TP 1 applic DAILY [facility] Administration Diltiazem HCl 180 mg 01/26/19 10:00 01/28/19 09:53 Cardizem Cd - PO Not Given DAILY [facility] Gabapentin 100 mg 01/25/19 22:00 01/28/19 13:39 Neurontin - PO 100 mg TID [facility] Administration IV Flush 4 ml 01/28/19 08:28 Triple Lumen Flush IVPUSH PRN PRN Protocol Meropenem 1 gm/ Dextrose 100 mls @ 200 mls/hr 01/25/19 14:00 01/28/19 13:39 IVPB 200 mls/hr Q12H [facility] Administration As Directed Doxycycline Hyclate 100 mg/ 100 mls @ 100 mls/hr 01/25/19 22:00 01/28/19 09: 54 Dextrose IVPB 100 mls/hr BID [facility] Administration Lactated Ringer's 1,000 ml in 1,000 mls @ 75 mls/hr 01/28/19 14:30 01/28/19 15:08 Lactated Ringers Solution IV 75 mls/hr ASDIR [facility] Administration Metoprolol Succinate 50 mg 01/25/19 22:00 01/27/19 22:16 Toprol Xl - PO 50 mg HS [facility] Administration Morphine Sulfate 2 mg 01/25/19 17:27 01/27/19 22:29 Morphine Sulfate IVPUSH 2 mg Q4H PRN Administration PAIN LEVEL 6-10 Nystatin 1 applic 01/26/19 10:00 01/28/19 09:55 Nystop Powder - TP 1 applic DAILY [facility] Administration Ondansetron HCl 4 mg 01/25/19 17:27 Zofran - PO TID PRN NAUSEA Pantoprazole Sodium 40 mg 01/28/19 22:00 Protonix Iv IVPUSH BID [facility] Polyethylene Glycol 17 gm 01/26/19 10:00 01/28/19 09:53 Miralax (For Daily Use) - PO 17 grams DAILY [facility] Administration Fluticasone/Salmeterol 1 puff 01/25/19 22:00 01/28/19 09:52 Advair 100mcg/50mcg - IH 1 puff BID [facility] Administration Silver Sulfadiazine 1 applic 01/25/19 22:00 01/28/19 09:55 Silvadene - TP 1 applic BID [facility] Administration Tramadol HCl 50 mg 01/25/19 17:27 01/28/19 10:21 Ultram - PO 50 mg Q8H PRN Administration PAIN LEVEL 6-10 Constitutional: Yes: Calm Eyes: Yes: Conjunctiva Clear HENT: Yes: Atraumatic Neck: Yes: Supple Cardiovascular: Yes: Regular Rate and Rhythm Respiratory: Yes: CTA Bilaterally Gastrointestinal Inspection: Yes: Scars ([place] , vertical suprapubic and oblique RLQ incisions) ...Auscultate: Yes: Normoactive Bowel Sounds ...Palpate: Yes: Soft, Other (nontender) ...Rectal Exam: Yes: Guaiac Positive (brown guaiac positive stool), Sphincter Tone Poor Labs: CBC, BMP 01/28/19 16:55 01/28/19 06:00 INR, PTT INR 2.37 (0.83-1.09) H 01/28/19 17:45 Fibrinogen 474.0 mg/dL (238-498) 01/23/19 07:03 Problem List - Problems (1) Occult blood in stools Code(s): R19.5 - OTHER FECAL ABNORMALITIES (2) Ischemic colitis Code(s): K55.9 - VASCULAR DISORDER OF INTESTINE, UNSPECIFIED (3) Colon polyps Code(s): K63.5 - POLYP OF COLON (4) Anemia Code(s): D64.9 - ANEMIA, UNSPECIFIED Qualifiers: Anemia type: unspecified type Qualified Code(s): D64.9 - Anemia, unspecified (5) Pancytopenia Code(s): D61.818 - OTHER PANCYTOPENIA (6) Pressure ulcer Code(s): L89.90 - PRESSURE ULCER OF UNSPECIFIED SITE, UNSPECIFIED STAGE (7) Respiratory failure Code(s): J96.90 - RESPIRATORY FAILURE, UNSP, UNSP W HYPOXIA OR HYPERCAPNIA (8) Toxic diffuse goiter Code(s): E05.00 - THYROTOXICOSIS W DIFFUSE GOITER W/O THYROTOXIC CRISIS (9) CKD (chronic kidney disease) Code(s): N18.9 - CHRONIC KIDNEY DISEASE, UNSPECIFIED Qualifiers: Chronic kidney disease stage: stage 4 (severe) Qualified Code(s): N18.4 - Chronic kidney disease, stage 4 (severe) (10) COPD (chronic obstructive pulmonary disease) Code(s): J44.9 - CHRONIC OBSTRUCTIVE PULMONARY DISEASE, UNSPECIFIED Qualifiers: COPD type: unspecified COPD Qualified Code(s): J44.9 - Chronic obstructive pulmonary disease, unspecified (11) Diverticulosis Code(s): K57.90 - DVRTCLOS OF INTEST, PART UNSP, W/O PERF OR ABSCESS W/O BLEED (12) Tracheal compression Code(s): J39.8 - OTHER SPECIFIED DISEASES OF UPPER RESPIRATORY TRACT (13) Malnutrition Code(s): E46 - UNSPECIFIED PROTEIN-CALORIE MALNUTRITION Qualifiers: Malnutrition type: protein-calorie malnutrition (14) Atrial fib/flutter, transient Code(s): [id number] - (15) C. difficile colitis Code(s): A04.72 - ENTEROCOLITIS D/T CLOSTRIDIUM DIFFICILE, NOT SPCF RECUR (16) CHF (NYHA class II, ACC/AHA stage C) Code(s): I50.9 - HEART FAILURE, UNSPECIFIED (17) Diastolic CHF Code(s): I50.30 - UNSPECIFIED DIASTOLIC (CONGESTIVE) HEART FAILURE Qualifiers: Qualified Code(s): I50.31 - Acute diastolic (congestive) heart failure Assessment/Plan Impression: - Judy does have occult GI bleeding contributing to her anemia. Most likely etiologies include stress gastritis, ulcers, GERD, vascular ectasias and chronic recurring ischemic colitis among others. A neoplasm cannot be excluded. I did discuss endoscopic evaluation with Judy once her condition permits ( including resolution of thyroid compression of airway) but she has told me that she will not permit any repeat endoscopies and cites her age and comorbidities. - Personal h/o colon polyps., ischemic colitis, diverticulitis, C diff colitis Plan: - Agree with continuing PPI empirically and Miralax for her constipation - Transfuse prn - [place] any further discussion of endoscopy for life threatening hemorrhage
[2019-01-28] MEDS ORDERED: PT OWN MED DRAWER 7, Y5N ONE (20:57)
[2019-01-28] MEDS: PANTOPRAZOLE SODIUM 40 MG VIAL IVPUSH SCH (21:53)
[2019-01-28 23:46] LABS: BASO % 0.1 % (0-2.0); EOS % 0.8 % (0-4.5); HEMATOCRIT 24.3 % (32.4-45.2); HEMOGLOBIN 7.9 GM/dL (10.7-15.3); LYMPH % 30.6 % (8-40); MCH 30.2 pg (25.7-33.7); MCHC 32.4 g/dl (32.0-36.0); MEAN CELL VOLUME 93.1 fl (80-96); MEAN PLT VOLUME 9.1 fl (7.5-11.1); MONO % 4.1 % (3.8-10.2); NEUT % 64.4 % (42.8-82.8); PLATELET COUNT 198 K/MM3 (134-434); RBC 2.61 M/mm3 (3.60-5.2); RDW 20.3 % (11.6-15.6); WHITE BLOOD COUNT 9.4 K/mm3 (4.0-10.0)
[2019-01-29] MEDS: ALBUTEROL SO4 2.5/IPRATROPIUM 0.5 INH SOL 3 ML VIAL.NEB. NEB SCH ×7 (00:05→23:33)
[2019-01-29] MEDS ORDERED: MEROPENEM 1 GM VIAL (RESTRICTED TO ID) IVPB ONE ×2 (01:05→13:36)
[2019-01-29] MEDS ORDERED: DEXTROSE 5%-WATER 100 ML IVPB ONE ×2 (01:05→13:36)
[2019-01-29] MEDS: MEROPENEM 1 GM in DEXTROSE 5%-WATER 100 ML IVPB SCH ×2 (01:36→13:41)
[2019-01-29] MEDS: traMADol HCL 50 MG TABLET PO PRN ×2 (05:04→15:00)
[2019-01-29] MEDS: GABAPENTIN 100 MG CAPSULE (FP) PO SCH ×3 (05:06→22:04)
[2019-01-29 07:06] LABS: BASO % 0.3 % (0-2.0); EOS % 0.8 % (0-4.5); HEMATOCRIT 25.2 % (32.4-45.2); HEMOGLOBIN 8.3 GM/dL (10.7-15.3); LYMPH % 22.5 % (8-40); MCH 30.5 pg (25.7-33.7); MCHC 32.8 g/dl (32.0-36.0); MEAN CELL VOLUME 93.1 fl (80-96); MEAN PLT VOLUME 8.9 fl (7.5-11.1); MONO % 3.5 % (3.8-10.2); NEUT % 72.9 % (42.8-82.8); PLATELET COUNT 203 K/MM3 (134-434); RBC 2.71 M/mm3 (3.60-5.2); RDW 20.3 % (11.6-15.6); WHITE BLOOD COUNT 8.6 K/mm3 (4.0-10.0)
[2019-01-29 07:21] LABS: INR 2.28 (0.83-1.09); PROTHROMBIN TIME (PATIENT) 27.1 SEC (9.7-13.0)
[2019-01-29 07:22] LABS: ALBUMIN 1.2 g/dl (3.4-5.0); BILIRUBIN,TOTAL 0.4 mg/dL (0.2-1); BLOOD UREA NITROGEN 43.1 mg/dL (7-18); CREATININE 1.8 mg/dL (0.55-1.3); POTASSIUM 4.5 mmol/L (3.5-5.1); TOT PROT 3.8 g/dl (6.4-8.2)
--- NOTE | 2019-01-29 08:03 | PN ---
Progress Note, Physician Chief Complaint: yesterday had an episode of black stool H/H are stable evaluted by GI - Current Medication List Current Medications: Active Medications Acetaminophen (Tylenol -) 650 mg PO QID PRN PRN Reason: PAIN Last Admin: 01/28/19 21:49 Dose: 650 mg Albuterol/Ipratropium (Duoneb -) 1 amp NEB RQ4H [facility] Last Admin: 01/29/19 07:25 Dose: 1 amp Bacitracin (Bacitracin -) 1 applic TP DAILY [facility] Last Admin: 01/28/19 09:52 Dose: 1 applic Diltiazem HCl (Cardizem Cd -) 180 mg PO DAILY [facility] Last Admin: 01/28/19 09:53 Dose: Not Given Gabapentin (Neurontin -) 100 mg PO TID [facility] Last Admin: 01/29/19 05:06 Dose: 100 mg IV Flush (Triple Lumen Flush) 4 ml IVPUSH PRN PRN PRN Reason: Protocol Meropenem 1 gm/ Dextrose 100 mls @ 200 mls/hr IVPB Q12H [facility] Last Admin: 01/29/19 01:36 Dose: 200 mls/hr Doxycycline Hyclate 100 mg/ (Dextrose) 100 mls @ 100 mls/hr IVPB BID [facility] Last Admin: 01/28/19 21:52 Dose: 100 mls/hr Lactated Ringer's (Lactated Ringers Solution) 1,000 ml in 1,000 mls @ 75 mls/ hr IV ASDIR [facility] Last Admin: 01/28/19 15:08 Dose: 75 mls/hr Metoprolol Succinate (Toprol Xl -) 50 mg PO HS [facility] Last Admin: 01/28/19 21:47 Dose: Not Given Morphine Sulfate (Morphine Sulfate) 2 mg IVPUSH Q4H PRN PRN Reason: PAIN LEVEL 6-10 Last Admin: 01/27/19 22:29 Dose: 2 mg Nystatin (Nystop Powder -) 1 applic TP DAILY [facility] Last Admin: 01/28/19 09:55 Dose: 1 applic Ondansetron HCl (Zofran -) 4 mg PO TID PRN PRN Reason: NAUSEA Pantoprazole Sodium (Protonix Iv) 40 mg IVPUSH BID [facility] Last Admin: 01/28/19 21:53 Dose: 40 mg Polyethylene Glycol (Miralax (For Daily Use) -) 17 gm PO DAILY [facility] Last Admin: 01/28/19 09:53 Dose: 17 grams Fluticasone/Salmeterol (Advair 100mcg/50mcg -) 1 puff IH BID [facility] Last Admin: 01/28/19 21:47 Dose: 1 puff Silver Sulfadiazine (Silvadene -) 1 applic TP BID [facility] Last Admin: 01/28/19 21:52 Dose: 1 applic Tramadol HCl (Ultram -) 50 mg PO Q8H PRN PRN Reason: PAIN LEVEL 6-10 Last Admin: 01/29/19 05:04 Dose: 50 mg - Objective Vital Signs: Vital Signs Temperature 97.7 F 01/29/19 06:00 Pulse Rate 103 H 01/29/19 06:00 Respiratory Rate 20 01/29/19 06:00 Blood Pressure 134/59 L 01/29/19 06:00 O2 Sat by Pulse Oximetry (%) 94 L 01/29/19 07:25 Elderly sick looking F looks edematous, not in distress HEENT: facial puffiness anemia, no external trauma NECK; No JVd No BrUit CHEST: Congested equal AE no wheezes ABD: Obese, non tender EXT: Edematous with multiple echymoses [employer]MENT [employer]: 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 Labs: CBC, BMP 01/29/19 05:40 01/29/19 05:40 INR, PTT INR 2.28 (0.83-1.09) H 01/29/19 05:40 Fibrinogen 474.0 mg/dL (238-498) 01/23/19 07:03 Problem List - Problems (1) Symptomatic anemia Assessment/Plan: Stable after transfusion will monitor cont PPI Code(s): D64.9 - ANEMIA, UNSPECIFIED (2) Respiratory failure Assessment/Plan: Due to CHF exacerbation and sever anemia improving on Nebs and PO Lasix Code(s): J96.90 - RESPIRATORY FAILURE, UNSP, UNSP W HYPOXIA OR HYPERCAPNIA (3) CHF (NYHA class II, ACC/AHA stage C) Assessment/Plan: Cont current management F/U cardiology recommendation PO lasix 40mg daily Code(s): I50.9 - HEART FAILURE, UNSPECIFIED (4) CKD (chronic kidney disease) Assessment/Plan: Stable F/U BMP Code(s): N18.9 - CHRONIC KIDNEY DISEASE, UNSPECIFIED Qualifiers: Chronic kidney disease stage: stage 4 (severe) Qualified Code(s): N18.4 - Chronic kidney disease, stage 4 (severe) (5) Persistent atrial fibrillation Assessment/Plan: Will discuss with cardiology to start on Gigoxine as not tolerating B Blockers or Diltizem due to BP INR therapeutic off coumadin F/U INR in am Code(s): I48.1 - PERSISTENT ATRIAL FIBRILLATION (6) COPD (chronic obstructive pulmonary disease) Assessment/Plan: ont Advair and Duoneb with ABX as per ID persistent infiltrates less likely pneumonia Code(s): J44.9 - CHRONIC OBSTRUCTIVE PULMONARY DISEASE, UNSPECIFIED Qualifiers: COPD type: unspecified COPD Qualified Code(s): J44.9 - Chronic obstructive pulmonary disease, unspecified (7) Thyromegaly Assessment/Plan: F/U Endo recommendation will F/U TSH Code(s): E01.0 - IODINE-DEFICIENCY RELATED DIFFUSE (ENDEMIC) GOITER (8) Malnutrition Assessment/Plan: Low albumin F/U Pre albumin and Nutrition consult Code(s): E46 - UNSPECIFIED PROTEIN-CALORIE MALNUTRITION Qualifiers: Malnutrition type: protein-calorie malnutrition (9) Pressure ulcer Assessment/Plan: Gibbnos catheter and wound care. cont current abx Code(s): L89.90 - PRESSURE ULCER OF UNSPECIFIED SITE, UNSPECIFIED STAGE (10) Pancytopenia Assessment/Plan: Probably due to methimazole improving. Code(s): D61.818 - OTHER PANCYTOPENIA (11) UTI (urinary tract infection) Assessment/Plan: ESBL E colli on meropenem Code(s): N39.0 - URINARY TRACT INFECTION, SITE NOT SPECIFIED (12) Hypotension Assessment/Plan: Spiked fever with Hypotention Central line changed on Meropenem and doxycycline , Line tip culture sent Code(s): I95.9 - HYPOTENSION, UNSPECIFIED
--- NOTE | 2019-01-29 09:11 | PN ---
Progress Note, Physician History of Present Illness: having gi bleed gi on case - Current Medication List Current Medications: Active Medications Acetaminophen (Tylenol -) 650 mg PO QID PRN PRN Reason: PAIN Last Admin: 01/28/19 21:49 Dose: 650 mg Albuterol/Ipratropium (Duoneb -) 1 amp NEB RQ4H [facility] Last Admin: 01/29/19 07:25 Dose: 1 amp Bacitracin (Bacitracin -) 1 applic TP DAILY [facility] Last Admin: 01/28/19 09:52 Dose: 1 applic Diltiazem HCl (Cardizem Cd -) 180 mg PO DAILY [facility] Last Admin: 01/28/19 09:53 Dose: Not Given Gabapentin (Neurontin -) 100 mg PO TID [facility] Last Admin: 01/29/19 05:06 Dose: 100 mg IV Flush (Triple Lumen Flush) 4 ml IVPUSH PRN PRN PRN Reason: Protocol Meropenem 1 gm/ Dextrose 100 mls @ 200 mls/hr IVPB Q12H [facility] Last Admin: 01/29/19 01:36 Dose: 200 mls/hr Doxycycline Hyclate 100 mg/ (Dextrose) 100 mls @ 100 mls/hr IVPB BID [facility] Last Admin: 01/28/19 21:52 Dose: 100 mls/hr Lactated Ringer's (Lactated Ringers Solution) 1,000 ml in 1,000 mls @ 75 mls/ hr IV ASDIR [facility] Last Admin: 01/28/19 15:08 Dose: 75 mls/hr Metoprolol Succinate (Toprol Xl -) 50 mg PO HS [facility] Last Admin: 01/28/19 21:47 Dose: Not Given Morphine Sulfate (Morphine Sulfate) 2 mg IVPUSH Q4H PRN PRN Reason: PAIN LEVEL 6-10 Last Admin: 01/27/19 22:29 Dose: 2 mg Nystatin (Nystop Powder -) 1 applic TP DAILY [facility] Last Admin: 01/28/19 09:55 Dose: 1 applic Ondansetron HCl (Zofran -) 4 mg PO TID PRN PRN Reason: NAUSEA Pantoprazole Sodium (Protonix Iv) 40 mg IVPUSH BID [facility] Last Admin: 01/28/19 21:53 Dose: 40 mg Polyethylene Glycol (Miralax (For Daily Use) -) 17 gm PO DAILY [facility] Last Admin: 01/28/19 09:53 Dose: 17 grams Fluticasone/Salmeterol (Advair 100mcg/50mcg -) 1 puff IH BID [facility] Last Admin: 01/28/19 21:47 Dose: 1 puff Silver Sulfadiazine (Silvadene -) 1 applic TP BID [facility] Last Admin: 01/28/19 21:52 Dose: 1 applic Tramadol HCl (Ultram -) 50 mg PO Q8H PRN PRN Reason: PAIN LEVEL 6-10 Last Admin: 01/29/19 05:04 Dose: 50 mg - Objective Vital Signs: Vital Signs Temperature 99.2 F 01/29/19 08:36 Pulse Rate 110 H 01/29/19 08:36 Respiratory Rate 20 01/29/19 08:36 Blood Pressure 120/91 01/29/19 08:36 O2 Sat by Pulse Oximetry (%) 94 L 01/29/19 07:25 Constitutional: Yes: Calm Cardiovascular: Yes: S1, S2 Respiratory: Yes: Regular, CTA Bilaterally, On Nasal O2 Gastrointestinal: Yes: Soft, Hypoactive Bowel Sounds Musculoskeletal: Yes: WNL Extremities: Yes: WNL Neurological: Yes: Alert, Oriented Labs: CBC, BMP 01/29/19 05:40 01/29/19 05:40 INR, PTT INR 2.28 (0.83-1.09) H 01/29/19 05:40 Fibrinogen 474.0 mg/dL (238-498) 01/23/19 07:03 Assessment/Plan Problem List - Problems (1) Respiratory failure Code(s): J96.90 - RESPIRATORY FAILURE, UNSP, UNSP W HYPOXIA OR HYPERCAPNIA (2) SOB (shortness of breath) Code(s): R06.02 - SHORTNESS OF BREATH (3) Symptomatic anemia Code(s): D64.9 - ANEMIA, UNSPECIFIED (4) Acute on chronic renal failure Code(s): N17.9 - ACUTE KIDNEY FAILURE, UNSPECIFIED; N18.9 - CHRONIC KIDNEY DISEASE, UNSPECIFIED (5) Afib Code(s): I48.91 - UNSPECIFIED ATRIAL FIBRILLATION Qualifiers: Atrial fibrillation type: chronic Qualified Code(s): I48.2 - Chronic atrial fibrillation (6) CHF (NYHA class II, ACC/AHA stage C) Code(s): I50.9 - HEART FAILURE, UNSPECIFIED (7) CKD (chronic kidney disease) Code(s): N18.9 - CHRONIC KIDNEY DISEASE, UNSPECIFIED Qualifiers: Chronic kidney disease stage: stage 4 (severe) Qualified Code(s): N18.4 - Chronic kidney disease, stage 4 (severe) (8) COPD (chronic obstructive pulmonary disease) Code(s): J44.9 - CHRONIC OBSTRUCTIVE PULMONARY DISEASE, UNSPECIFIED Qualifiers: COPD type: unspecified COPD Qualified Code(s): J44.9 - Chronic obstructive pulmonary disease, unspecified (9) Hypercholesteremia Code(s): E78.00 - PURE HYPERCHOLESTEROLEMIA, UNSPECIFIED (10) Hypertension Code(s): I10 - ESSENTIAL (PRIMARY) HYPERTENSION (11) Hyperthyroidism Code(s): E05.90 - THYROTOXICOSIS, UNSP WITHOUT THYROTOXIC CRISIS OR STORM (12) Obese Code(s): E66.9 - OBESITY, UNSPECIFIED (13) Sacral decubitus ulcer, stage II Code(s): L89.152 - PRESSURE ULCER OF SACRAL REGION, STAGE 2 (14) Thyromegaly Code(s): E01.0 - IODINE-DEFICIENCY RELATED DIFFUSE (ENDEMIC) GOITER (15) Tracheal compression Code(s): J39.8 - OTHER SPECIFIED DISEASES OF UPPER RESPIRATORY TRACT (16) UTI (urinary tract infection) Code(s): N39.0 - URINARY TRACT INFECTION, SITE NOT SPECIFIED Qualifiers: Urinary tract infection type: site unspecified Hematuria presence: without hematuria Qualified Code(s): N39.0 - Urinary tract infection, site not specified 17 gi bleed Assessment/Plan 88 y.o. female with PMH of COPD on home O2, CHF, ASHD, HTN, HLD, CKD, diverticultis/ ? ischemic colitis s/p partial colectomy, s/p JW/BSO, chronic cough/persistent pulmonary infiltrates, multinodular goiter with partial tracheal compression, and anemia presents with c/o worsening SOB over the past week with subjective fever/chills. Fever Gram positive bacteremia UTI Acute hypoxic respiratory failure Possible HCAP Groin rash/excoriations Pancytopenia - ? due to Methimazole Multinodular goiter with partial tracheal compression COPD Hx of CKD AFIB CHF ASHD HTN HLD gi bleed plan await for cx continue abx monitor cbc support rest as per the team
[2019-01-29] MEDS: SILVER SULFADIAZINE 1% TOP CREAM 400 GM JAR TP SCH ×2 (10:21→22:07)
[2019-01-29] MEDS: NYSTATIN POWDER 100,000 UNITS/GM - 15 GM TOPICAL POWDER TP SCH (10:21)
[2019-01-29] MEDS: POLYETHYLENE GLYCOL 3350 119 GM BTL PO SCH (10:22)
[2019-01-29] MEDS: DOXYCYCLINE INJECTION 100 MG in DEXTROSE 5%-WATER - 100 ML IVPB SCH ×2 (10:23→22:04)
[2019-01-29] MEDS: BACITRACIN 15 GM TUBE TOPICAL OINTMENT TP SCH (10:29)
[2019-01-29] MEDS: PANTOPRAZOLE SODIUM 40 MG VIAL IVPUSH SCH ×2 (10:32→22:23)
[2019-01-29] MEDS: FLUTICASONE/SALMETEROL 100 MCG/50 MCG DISKUS IH SCH ×2 (11:04→22:06)
--- NOTE | 2019-01-29 12:49 | PN ---
Progress Note (short form) - Note Progress Note: PULMONARY More somnolent today but arousable. Vital Signs Period Temp Pulse Resp BP Sys/Rodriguez Pulse Ox Last 24 Hr 97.7 F-99.4 F 101-110 20-20 101-134/45-91 94-94 Gen: somnolent but arousable Heart: RRR Lung: scattered rhonchi, wheezes Abd: soft, nontender Ext: + edema CBC, BMP 01/29/19 05:40 01/29/19 05:40 Active Medications Acetaminophen (Tylenol -) 650 mg PO QID PRN PRN Reason: PAIN Last Admin: 01/28/19 21:49 Dose: 650 mg Albuterol/Ipratropium (Duoneb -) 1 amp NEB RQ4H [facility] Last Admin: 01/29/19 11:11 Dose: 1 amp Bacitracin (Bacitracin -) 1 applic TP DAILY [facility] Last Admin: 01/29/19 10:29 Dose: 1 applic Diltiazem HCl (Cardizem Cd -) 180 mg PO DAILY [facility] Last Admin: 01/29/19 10:30 Dose: 180 mg Gabapentin (Neurontin -) 100 mg PO TID [facility] Last Admin: 01/29/19 05:06 Dose: 100 mg IV Flush (Triple Lumen Flush) 4 ml IVPUSH PRN PRN PRN Reason: Protocol Meropenem 1 gm/ Dextrose 100 mls @ 200 mls/hr IVPB Q12H [facility] Last Admin: 01/29/19 01:36 Dose: 200 mls/hr Doxycycline Hyclate 100 mg/ (Dextrose) 100 mls @ 100 mls/hr IVPB BID [facility] Last Admin: 01/29/19 10:23 Dose: 100 mls/hr Lactated Ringer's (Lactated Ringers Solution) 1,000 ml in 1,000 mls @ 75 mls/ hr IV ASDIR [facility] Last Admin: 01/28/19 15:08 Dose: 75 mls/hr Metoprolol Succinate (Toprol Xl -) 50 mg PO HS [facility] Last Admin: 01/28/19 21:47 Dose: Not Given Morphine Sulfate (Morphine Sulfate) 2 mg IVPUSH Q4H PRN PRN Reason: PAIN LEVEL 6-10 Last Admin: 01/27/19 22:29 Dose: 2 mg Nystatin (Nystop Powder -) 1 applic TP DAILY [facility] Last Admin: 01/29/19 10:21 Dose: 1 applic Ondansetron HCl (Zofran -) 4 mg PO TID PRN PRN Reason: NAUSEA Pantoprazole Sodium (Protonix Iv) 40 mg IVPUSH BID [facility] Last Admin: 01/29/19 10:32 Dose: 40 mg Polyethylene Glycol (Miralax (For Daily Use) -) 17 gm PO DAILY [facility] Last Admin: 01/29/19 10:22 Dose: 17 grams Fluticasone/Salmeterol (Advair 100mcg/50mcg -) 1 puff IH BID [facility] Last Admin: 01/29/19 11:04 Dose: 1 puff Silver Sulfadiazine (Silvadene -) 1 applic TP BID [facility] Last Admin: 01/29/19 10:21 Dose: 1 applic Tramadol HCl (Ultram -) 50 mg PO Q8H PRN PRN Reason: PAIN LEVEL 6-10 Last Admin: 01/29/19 05:04 Dose: 50 mg A/P Acute on Chronic Hypoxic Respiratory Failure UTI Sacral Decubitus Infection Gram Positive Bacteremia Sepsis COPD Atrial Fibrillation LV Systolic/Diastolic Dysfunction CKD Pancytopenia Anemia requiring PRBC transfusions Goiter with Tracheal compression - continue antibiotics - wound care - monitor CBC - O2 to keep Spo2 >90% - BiPAP as needed to assist in work of breathing - inhaled bronchodilators - rate control - anticoagulation to target INR 2-3 - DVT prophylaxis
[2019-01-29] MEDS: LACTATED RINGERS SOLUTION 1,000 ML/1,000 ML INFUS.BAG IV SCH ×2 (14:58→17:29)
[2019-01-29] MEDS: ACETAMINOPHEN 325 MG TABLET (FP) PO PRN (17:13)
[2019-01-29] MEDS ORDERED: PT OWN MED DRAWER 7, Y5N ONE (20:01)
[2019-01-29 20:24] LABS: ANISOCYTOSIS 1+; MACROCYTOSIS 1+; OVALOCYTE 1+; PLATELET ESTIMATE NORMAL
--- NOTE | 2019-01-29 22:15 | PN ---
Progress Note (short form) - Note Progress Note: Please to rec referred to recent consult. 88 year old -Citizen Of [place] female was readmitted with progressive shortness of breath requiring high flow oxygen , also found to have severe anemia with pancytopenia which was attributed to the use of methimazole. Patient has decubiti ulcers, was found to be was found to be to be septic with a urinary tract infection. She has had progressive pedal edema and clinically has congestive heart. Has had progressive deterioration of her clinical status. Clinically she has had stridor and probable tracheal compression. She has thyromegaly extending to the upper mediastinum. Found to be lethargic and have difficulty in explaining her overall condition. Patient is febrile. Active Medications Acetaminophen (Tylenol -) 650 mg PO QID PRN PRN Reason: PAIN Last Admin: 01/29/19 17:13 Dose: 650 mg Albuterol/Ipratropium (Duoneb -) 1 amp NEB RQ4H [facility] Last Admin: 01/29/19 20:51 Dose: 1 amp Bacitracin (Bacitracin -) 1 applic TP DAILY [facility] Last Admin: 01/29/19 10:29 Dose: 1 applic Diltiazem HCl (Cardizem Cd -) 180 mg PO DAILY [facility] Last Admin: 01/29/19 10:30 Dose: 180 mg Gabapentin (Neurontin -) 100 mg PO TID [facility] Last Admin: 01/29/19 22:04 Dose: 100 mg IV Flush (Triple Lumen Flush) 4 ml IVPUSH PRN PRN PRN Reason: Protocol Meropenem 1 gm/ Dextrose 100 mls @ 200 mls/hr IVPB Q12H [facility] Last Admin: 01/29/19 13:41 Dose: 200 mls/hr Doxycycline Hyclate 100 mg/ (Dextrose) 100 mls @ 100 mls/hr IVPB BID [facility] Last Admin: 01/29/19 22:04 Dose: 100 mls/hr Lactated Ringer's (Lactated Ringers Solution) 1,000 ml in 1,000 mls @ 75 mls/ hr IV ASDIR [facility] Last Admin: 01/29/19 17:29 Dose: 75 mls/hr Metoprolol Succinate (Toprol Xl -) 50 mg PO HS [facility] Last Admin: 01/29/19 22:22 Dose: Not Given Morphine Sulfate (Morphine Sulfate) 2 mg IVPUSH Q4H PRN PRN Reason: PAIN LEVEL 6-10 Last Admin: 01/27/19 22:29 Dose: 2 mg Nystatin (Nystop Powder -) 1 applic TP DAILY [facility] Last Admin: 01/29/19 10:21 Dose: 1 applic Ondansetron HCl (Zofran -) 4 mg PO TID PRN PRN Reason: NAUSEA Pantoprazole Sodium (Protonix Iv) 40 mg IVPUSH BID [facility] Last Admin: 01/29/19 22:23 Dose: 40 mg Polyethylene Glycol (Miralax (For Daily Use) -) 17 gm PO DAILY [facility] Last Admin: 01/29/19 10:22 Dose: 17 grams Fluticasone/Salmeterol (Advair 100mcg/50mcg -) 1 puff IH BID [facility] Last Admin: 01/29/19 22:06 Dose: 1 puff Silver Sulfadiazine (Silvadene -) 1 applic TP BID [facility] Last Admin: 01/29/19 22:07 Dose: 1 applic Tramadol HCl (Ultram -) 50 mg PO Q8H PRN PRN Reason: PAIN LEVEL 6-10 Last Admin: 01/29/19 15:00 Dose: 50 mg Last Vital Signs Temp Pulse Resp BP Pulse Ox 100.1 F H 94 H 20 133/52 L 94 L 01/29/19 17:11 01/29/19 17:11 01/29/19 17:11 01/29/19 17:11 01/29/19 09:00 NECK: Supple, positive hepatojugular reflux, carotids were 2+. No bruits were appreciated. HEART: PMI was not localized. Heart sounds were distant, partially obscured by coarse breath sounds. No murmur or gallops were heard. LUNGS: bilateral scattered expiratory wheezing. Unable to appreciate crepitations. ABDOMEN; soft, protuberant and nontender. No hepatosplenomegaly or palpable masses were appreciated. EXTREMITIES: 3+ bilateral pretibial and pedal edema. No calf tenderness was elicited. Dorsalis pedis and posterior tibial pulses could not be palpated. CBC, BMP 01/29/19 05:40 01/29/19 05:40 Impression: 1. Progressive respiratory failure: a). 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 2. Recent urinary tract infection, deteriorating decubiti and sepsis. 3. Coronary artery disease, angina pectoris, presently stable. 4. 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 5. Multinodular goiter/thyromegaly. 6. History of thyrotoxicosis. 7. Severe anemia and possible GI bleed. 8. Chronic kidney disease. Recommendations: 1. IV Lasix and if necessary add Zaroxolyn 2.5 mg, half an hour before Lasix under close observation of electrolytes. 2.obtain copy of the latest echocardiogram. 3. Follow-up BMP and CBC. Prognosis: Critical. Micky Hawkins MD.
[2019-01-30] MEDS ORDERED: DEXTROSE 5%-WATER 100 ML IVPB ONE ×2 (02:08→14:52)
[2019-01-30] MEDS ORDERED: MEROPENEM 1 GM VIAL (RESTRICTED TO ID) IVPB ONE ×2 (02:08→14:51)
[2019-01-30] MEDS: ACETAMINOPHEN 325 MG TABLET (FP) PO PRN (02:16)
[2019-01-30] MEDS: MEROPENEM 1 GM in DEXTROSE 5%-WATER 100 ML IVPB SCH ×2 (02:24→14:55)
[2019-01-30] MEDS: ALBUTEROL SO4 2.5/IPRATROPIUM 0.5 INH SOL 3 ML VIAL.NEB. NEB SCH ×5 (03:22→21:12)
[2019-01-30] MEDS: GABAPENTIN 100 MG CAPSULE (FP) PO SCH ×2 (06:25→14:55)
[2019-01-30 07:06] LABS: BASO % 0.2 % (0-2.0); EOS % 0.5 % (0-4.5); HEMOGLOBIN 7.2 GM/dL (10.7-15.3); LYMPH % 17.7 % (8-40); MCH 30.3 pg (25.7-33.7); MCHC 32.9 g/dl (32.0-36.0); MEAN CELL VOLUME 92.4 fl (80-96); MEAN PLT VOLUME 8.8 fl (7.5-11.1); MONO % 4.3 % (3.8-10.2); NEUT % 77.3 % (42.8-82.8); PLATELET COUNT 216 K/MM3 (134-434); RBC 2.38 M/mm3 (3.60-5.2); RDW 19.7 % (11.6-15.6); WHITE BLOOD COUNT 8.8 K/mm3 (4.0-10.0)
[2019-01-30 07:39] LABS: CREATININE 1.8 mg/dL (0.55-1.3); POTASSIUM 4.7 mmol/L (3.5-5.1)
[2019-01-30] MEDS: MORPHINE SULFATE 2 MG/ML VIAL IVPUSH PRN ×3 (07:41→15:20)
--- NOTE | 2019-01-30 09:13 | PN ---
Progress Note (short form) - Note Progress Note: PULMONARY More awake today. Frequent coughing. c/o pain at bedsores. Vital Signs Period Temp Pulse Resp BP Sys/Rodriguez Pulse Ox Last 24 Hr 98.8 F-100.4 F 82-111 20-20 78-133/45-53 94-98 Gen: frequent coughing Heart: RRR Lung: scattered rhonchi, wheezes Abd: soft, nontender Ext: + edema CBC, BMP 01/30/19 06:30 01/30/19 06:30 Active Medications Acetaminophen (Tylenol -) 650 mg PO QID PRN PRN Reason: PAIN Last Admin: 01/30/19 02:16 Dose: 650 mg Albuterol/Ipratropium (Duoneb -) 1 amp NEB RQ4H [facility] Last Admin: 01/30/19 08:09 Dose: 1 amp Bacitracin (Bacitracin -) 1 applic TP DAILY [facility] Last Admin: 01/29/19 10:29 Dose: 1 applic Diltiazem HCl (Cardizem Cd -) 180 mg PO DAILY [facility] Last Admin: 01/29/19 10:30 Dose: 180 mg Gabapentin (Neurontin -) 100 mg PO TID [facility] Last Admin: 01/30/19 06:25 Dose: 100 mg IV Flush (Triple Lumen Flush) 4 ml IVPUSH PRN PRN PRN Reason: Protocol Meropenem 1 gm/ Dextrose 100 mls @ 200 mls/hr IVPB Q12H [facility] Last Admin: 01/30/19 02:24 Dose: 200 mls/hr Doxycycline Hyclate 100 mg/ (Dextrose) 100 mls @ 100 mls/hr IVPB BID [facility] Last Admin: 01/29/19 22:04 Dose: 100 mls/hr Lactated Ringer's (Lactated Ringers Solution) 1,000 ml in 1,000 mls @ 75 mls/ hr IV ASDIR [facility] Last Admin: 01/29/19 17:29 Dose: 75 mls/hr Metoprolol Succinate (Toprol Xl -) 50 mg PO HS [facility] Last Admin: 01/29/19 22:22 Dose: Not Given Morphine Sulfate (Morphine Sulfate) 2 mg IVPUSH Q4H PRN PRN Reason: PAIN LEVEL 6-10 Last Admin: 01/30/19 07:41 Dose: 2 mg Nystatin (Nystop Powder -) 1 applic TP DAILY [facility] Last Admin: 01/29/19 10:21 Dose: 1 applic Ondansetron HCl (Zofran -) 4 mg PO TID PRN PRN Reason: NAUSEA Pantoprazole Sodium (Protonix Iv) 40 mg IVPUSH BID [facility] Last Admin: 01/29/19 22:23 Dose: 40 mg Polyethylene Glycol (Miralax (For Daily Use) -) 17 gm PO DAILY [facility] Last Admin: 01/29/19 10:22 Dose: 17 grams Fluticasone/Salmeterol (Advair 100mcg/50mcg -) 1 puff IH BID [facility] Last Admin: 01/29/19 22:06 Dose: 1 puff Silver Sulfadiazine (Silvadene -) 1 applic TP BID [facility] Last Admin: 01/29/19 22:07 Dose: 1 applic Tramadol HCl (Ultram -) 50 mg PO Q8H PRN PRN Reason: PAIN LEVEL 6-10 Last Admin: 01/29/19 15:00 Dose: 50 mg A/P Acute on Chronic Hypoxic Respiratory Failure UTI Sacral Decubitus Infection Gram Positive Bacteremia Sepsis COPD Atrial Fibrillation LV Systolic/Diastolic Dysfunction CKD Pancytopenia Anemia requiring PRBC transfusions Goiter with Tracheal compression - continue antibiotics - wound care - pain control - monitor CBC - O2 to keep Spo2 >90% - BiPAP as needed to assist in work of breathing - inhaled bronchodilators - rate control - anticoagulation to target INR 2-3 - DVT prophylaxis
[2019-01-30] MEDS ORDERED: PT OWN MED DRAWER 7, Y5N ONE (09:34)
[2019-01-30 09:45] LABS: INR 2.19 (0.83-1.09); PROTHROMBIN TIME (PATIENT) 26.1 SEC (9.7-13.0)
[2019-01-30] MEDS: BACITRACIN 15 GM TUBE TOPICAL OINTMENT TP SCH (10:37)
[2019-01-30] MEDS: DOXYCYCLINE INJECTION 100 MG in DEXTROSE 5%-WATER - 100 ML IVPB SCH (10:38)
[2019-01-30] MEDS: PANTOPRAZOLE SODIUM 40 MG VIAL IVPUSH SCH (10:38)
[2019-01-30] MEDS: SILVER SULFADIAZINE 1% TOP CREAM 400 GM JAR TP SCH (10:38)
[2019-01-30] MEDS: NYSTATIN POWDER 100,000 UNITS/GM - 15 GM TOPICAL POWDER TP SCH (10:39)
[2019-01-30] MEDS: FLUTICASONE/SALMETEROL 100 MCG/50 MCG DISKUS IH SCH (10:39)
[2019-01-30] MEDS: POLYETHYLENE GLYCOL 3350 119 GM BTL PO SCH (10:39)
[2019-01-30 11:31] LABS: ANISOCYTOSIS 1+; MACROCYTOSIS 1+; OVALOCYTE 1+; PLATELET ESTIMATE NORMAL
--- NOTE | 2019-01-30 12:16 | PN ---
Progress Note, Physician History of Present Illness: pain in the ulcer regions on thighs and buttocks breathing better - Current Medication List Current Medications: Active Medications Acetaminophen (Tylenol -) 650 mg PO QID PRN PRN Reason: PAIN 1-3 Last Admin: 01/30/19 02:16 Dose: 650 mg Albuterol/Ipratropium (Duoneb -) 1 amp NEB RQ4H [facility] Last Admin: 01/30/19 08:09 Dose: 1 amp Bacitracin (Bacitracin -) 1 applic TP DAILY [facility] Last Admin: 01/30/19 10:37 Dose: 1 applic Diltiazem HCl (Cardizem Cd -) 180 mg PO DAILY [facility] Last Admin: 01/30/19 10:38 Dose: 180 mg Gabapentin (Neurontin -) 100 mg PO TID [facility] Last Admin: 01/30/19 06:25 Dose: 100 mg IV Flush (Triple Lumen Flush) 4 ml IVPUSH PRN PRN PRN Reason: Protocol Meropenem 1 gm/ Dextrose 100 mls @ 200 mls/hr IVPB Q12H [facility] Last Admin: 01/30/19 02:24 Dose: 200 mls/hr Doxycycline Hyclate 100 mg/ (Dextrose) 100 mls @ 100 mls/hr IVPB BID [facility] Last Admin: 01/30/19 10:38 Dose: 100 mls/hr Lactated Ringer's (Lactated Ringers Solution) 1,000 ml in 1,000 mls @ 75 mls/ hr IV ASDIR [facility] Last Admin: 01/29/19 17:29 Dose: 75 mls/hr Metoprolol Succinate (Toprol Xl -) 50 mg PO HS [facility] Last Admin: 01/29/19 22:22 Dose: Not Given Morphine Sulfate (Morphine Sulfate) 4 mg IVPUSH Q3H PRN PRN Reason: PAIN LEVEL 6-10 Last Admin: 01/30/19 10:48 Dose: 4 mg Nystatin (Nystop Powder -) 1 applic TP DAILY [facility] Last Admin: 01/30/19 10:39 Dose: 1 applic Ondansetron HCl (Zofran -) 4 mg PO TID PRN PRN Reason: NAUSEA Pantoprazole Sodium (Protonix Iv) 40 mg IVPUSH BID [facility] Last Admin: 01/30/19 10:38 Dose: 40 mg Polyethylene Glycol (Miralax (For Daily Use) -) 17 gm PO DAILY [facility] Last Admin: 01/30/19 10:39 Dose: 17 grams Fluticasone/Salmeterol (Advair 100mcg/50mcg -) 1 puff IH BID [facility] Last Admin: 01/30/19 10:39 Dose: 1 puff Silver Sulfadiazine (Silvadene -) 1 applic TP BID [facility] Last Admin: 01/30/19 10:38 Dose: 1 applic Tramadol HCl (Ultram -) 50 mg PO Q8H PRN PRN Reason: PAIN LEVEL 6-10 Last Admin: 01/29/19 15:00 Dose: 50 mg - Objective Vital Signs: Vital Signs Temperature 99.1 F 01/30/19 10:00 Pulse Rate 123 H 01/30/19 10:00 Respiratory Rate 20 01/30/19 10:00 Blood Pressure 139/60 01/30/19 10:00 O2 Sat by Pulse Oximetry (%) 95 01/30/19 09:00 Constitutional: Yes: Calm, Anxious Cardiovascular: Yes: Pulse Irregular, S1, S2 Respiratory: Yes: Regular, CTA Bilaterally, On Nasal O2 Gastrointestinal: Yes: Normal Bowel Sounds, Soft Musculoskeletal: Yes: WNL Extremities: Yes: Other Wound/Incision: Yes: Other (gluteal ulcer raw still with pain and bleeding) Neurological: Yes: Alert, Oriented Psychiatric: Yes: Alert, Oriented Labs: CBC, BMP 01/30/19 06:30 01/30/19 06:30 INR, PTT INR 2.19 (0.83-1.09) H 01/30/19 06:30 Fibrinogen 474.0 mg/dL (238-498) 01/23/19 07:03 - ....Imaging Chest X-ray: Report Reviewed, Image Reviewed Assessment/Plan Problem List - Problems (1) Respiratory failure Code(s): J96.90 - RESPIRATORY FAILURE, UNSP, UNSP W HYPOXIA OR HYPERCAPNIA (2) SOB (shortness of breath) Code(s): R06.02 - SHORTNESS OF BREATH (3) Symptomatic anemia Code(s): D64.9 - ANEMIA, UNSPECIFIED (4) Acute on chronic renal failure Code(s): N17.9 - ACUTE KIDNEY FAILURE, UNSPECIFIED; N18.9 - CHRONIC KIDNEY DISEASE, UNSPECIFIED (5) Afib Code(s): I48.91 - UNSPECIFIED ATRIAL FIBRILLATION Qualifiers: Atrial fibrillation type: chronic Qualified Code(s): I48.2 - Chronic atrial fibrillation (6) CHF (NYHA class II, ACC/AHA stage C) Code(s): I50.9 - HEART FAILURE, UNSPECIFIED (7) CKD (chronic kidney disease) Code(s): N18.9 - CHRONIC KIDNEY DISEASE, UNSPECIFIED Qualifiers: Chronic kidney disease stage: stage 4 (severe) Qualified Code(s): N18.4 - Chronic kidney disease, stage 4 (severe) (8) COPD (chronic obstructive pulmonary disease) Code(s): J44.9 - CHRONIC OBSTRUCTIVE PULMONARY DISEASE, UNSPECIFIED Qualifiers: COPD type: unspecified COPD Qualified Code(s): J44.9 - Chronic obstructive pulmonary disease, unspecified (9) Hypercholesteremia Code(s): E78.00 - PURE HYPERCHOLESTEROLEMIA, UNSPECIFIED (10) Hypertension Code(s): I10 - ESSENTIAL (PRIMARY) HYPERTENSION (11) Hyperthyroidism Code(s): E05.90 - THYROTOXICOSIS, UNSP WITHOUT THYROTOXIC CRISIS OR STORM (12) Obese Code(s): E66.9 - OBESITY, UNSPECIFIED (13) Sacral decubitus ulcer, stage II Code(s): L89.152 - PRESSURE ULCER OF SACRAL REGION, STAGE 2 (14) Thyromegaly Code(s): E01.0 - IODINE-DEFICIENCY RELATED DIFFUSE (ENDEMIC) GOITER (15) Tracheal compression Code(s): J39.8 - OTHER SPECIFIED DISEASES OF UPPER RESPIRATORY TRACT (16) UTI (urinary tract infection) Code(s): N39.0 - URINARY TRACT INFECTION, SITE NOT SPECIFIED Qualifiers: Urinary tract infection type: site unspecified Hematuria presence: without hematuria Qualified Code(s): N39.0 - Urinary tract infection, site not specified 17 gi bleed Assessment/Plan 88 y.o. female with PMH of COPD on home O2, CHF, ASHD, HTN, HLD, CKD, diverticultis/ ? ischemic colitis s/p partial colectomy, s/p JW/BSO, chronic cough/persistent pulmonary infiltrates, multinodular goiter with partial tracheal compression, and anemia presents with c/o worsening SOB over the past week with subjective fever/chills. Fever Gram positive bacteremia UTI Acute hypoxic respiratory failure Possible HCAP Groin rash/excoriations Pancytopenia - ? due to Methimazole Multinodular goiter with partial tracheal compression COPD Hx of CKD AFIB CHF ASHD HTN HLD gi bleed plan continue current mgmt abx nutrition wound care
--- NOTE | 2019-01-30 12:56 | PN ---
Progress Note, Physician Chief Complaint: Remained afebrile c/o pain in wound rpt cultures are -ve - Current Medication List Current Medications: Active Medications Acetaminophen (Tylenol -) 650 mg PO QID PRN PRN Reason: PAIN 1-3 Last Admin: 01/30/19 02:16 Dose: 650 mg Albuterol/Ipratropium (Duoneb -) 1 amp NEB RQ4H [facility] Last Admin: 01/30/19 11:35 Dose: 1 amp Bacitracin (Bacitracin -) 1 applic TP DAILY [facility] Last Admin: 01/30/19 10:37 Dose: 1 applic Diltiazem HCl (Cardizem Cd -) 180 mg PO DAILY [facility] Last Admin: 01/30/19 10:38 Dose: 180 mg Gabapentin (Neurontin -) 100 mg PO TID [facility] Last Admin: 01/30/19 06:25 Dose: 100 mg IV Flush (Triple Lumen Flush) 4 ml IVPUSH PRN PRN PRN Reason: Protocol Meropenem 1 gm/ Dextrose 100 mls @ 200 mls/hr IVPB Q12H [facility] Last Admin: 01/30/19 02:24 Dose: 200 mls/hr Doxycycline Hyclate 100 mg/ (Dextrose) 100 mls @ 100 mls/hr IVPB BID [facility] Last Admin: 01/30/19 10:38 Dose: 100 mls/hr Lactated Ringer's (Lactated Ringers Solution) 1,000 ml in 1,000 mls @ 75 mls/ hr IV ASDIR [facility] Last Admin: 01/29/19 17:29 Dose: 75 mls/hr Metoprolol Succinate (Toprol Xl -) 50 mg PO HS [facility] Last Admin: 01/29/19 22:22 Dose: Not Given Morphine Sulfate (Morphine Sulfate) 4 mg IVPUSH Q3H PRN PRN Reason: PAIN LEVEL 6-10 Last Admin: 01/30/19 10:48 Dose: 4 mg Nystatin (Nystop Powder -) 1 applic TP DAILY [facility] Last Admin: 01/30/19 10:39 Dose: 1 applic Ondansetron HCl (Zofran -) 4 mg PO TID PRN PRN Reason: NAUSEA Pantoprazole Sodium (Protonix Iv) 40 mg IVPUSH BID [facility] Last Admin: 01/30/19 10:38 Dose: 40 mg Polyethylene Glycol (Miralax (For Daily Use) -) 17 gm PO DAILY [facility] Last Admin: 01/30/19 10:39 Dose: 17 grams Fluticasone/Salmeterol (Advair 100mcg/50mcg -) 1 puff IH BID [facility] Last Admin: 01/30/19 10:39 Dose: 1 puff Silver Sulfadiazine (Silvadene -) 1 applic TP BID [facility] Last Admin: 01/30/19 10:38 Dose: 1 applic Tramadol HCl (Ultram -) 50 mg PO Q8H PRN PRN Reason: PAIN LEVEL 6-10 Last Admin: 01/29/19 15:00 Dose: 50 mg - Objective Vital Signs: Vital Signs Temperature 99.1 F 01/30/19 10:00 Pulse Rate 123 H 01/30/19 10:00 Respiratory Rate 20 01/30/19 10:00 Blood Pressure 139/60 01/30/19 10:00 O2 Sat by Pulse Oximetry (%) 95 01/30/19 09:00 Elderly sick looking F looks edematous, not in distress HEENT: facial puffiness anemia, no external trauma NECK; No JVd No BrUit CHEST: Congested equal AE no wheezes ABD: Obese, non tender EXT: Edematous with multiple echymoses MAIL INSERTER: 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 Labs: CBC, BMP 01/30/19 06:30 01/30/19 06:30 INR, PTT INR 2.19 (0.83-1.09) H 01/30/19 06:30 Fibrinogen 474.0 mg/dL (238-498) 01/23/19 07:03 Problem List - Problems (1) Symptomatic anemia Code(s): D64.9 - ANEMIA, UNSPECIFIED (2) Respiratory failure Code(s): J96.90 - RESPIRATORY FAILURE, UNSP, UNSP W HYPOXIA OR HYPERCAPNIA (3) CHF (NYHA class II, ACC/AHA stage C) Code(s): I50.9 - HEART FAILURE, UNSPECIFIED (4) CKD (chronic kidney disease) Code(s): N18.9 - CHRONIC KIDNEY DISEASE, UNSPECIFIED Qualifiers: Chronic kidney disease stage: stage 4 (severe) Qualified Code(s): N18.4 - Chronic kidney disease, stage 4 (severe) (5) Persistent atrial fibrillation Code(s): I48.1 - PERSISTENT ATRIAL FIBRILLATION (6) COPD (chronic obstructive pulmonary disease) Code(s): J44.9 - CHRONIC OBSTRUCTIVE PULMONARY DISEASE, UNSPECIFIED Qualifiers: COPD type: unspecified COPD Qualified Code(s): J44.9 - Chronic obstructive pulmonary disease, unspecified (7) Thyromegaly Code(s): E01.0 - IODINE-DEFICIENCY RELATED DIFFUSE (ENDEMIC) GOITER (8) Malnutrition Code(s): E46 - UNSPECIFIED PROTEIN-CALORIE MALNUTRITION Qualifiers: Malnutrition type: protein-calorie malnutrition (9) Pressure ulcer Code(s): L89.90 - PRESSURE ULCER OF UNSPECIFIED SITE, UNSPECIFIED STAGE (10) Pancytopenia Code(s): D61.818 - OTHER PANCYTOPENIA (11) UTI (urinary tract infection) Code(s): N39.0 - URINARY TRACT INFECTION, SITE NOT SPECIFIED (12) Hypotension Code(s): I95.9 - HYPOTENSION, UNSPECIFIED Assessment/Plan Patient remained hemodynamically better but over all weak and deconditioned, no growth so far from triple Lumen trip or blood culture on IV meropenem for ESBL E Colli and Dixycycline renal functins are stable, iNR therapeutic no gross Pulmonary congestion INR therapeutic, No Melena since an episode of black stoool 3 days ago Plan: Cont current management Wound care and nutritional support Thyroid Status is EUthyroid Pancytopenia improved H/H is stable switch to PPI daily Will discuss with family Goals of care and ADR
[2019-01-30] MEDS ORDERED: IRON SUCROSE INJECTION 100 MG in SODIUM CHLORIDE 95 ML IVPB ONE (14:00)
[2019-01-31] MEDS: LACTATED RINGERS SOLUTION 1,000 ML/1,000 ML INFUS.BAG IV SCH (00:02)
[2019-01-31] MEDS: DOXYCYCLINE INJECTION 100 MG in DEXTROSE 5%-WATER - 100 ML IVPB SCH ×3 (00:03→22:53)
[2019-01-31] MEDS: SILVER SULFADIAZINE 1% TOP CREAM 400 GM JAR TP SCH ×3 (00:04→23:02)
[2019-01-31] MEDS: GABAPENTIN 100 MG CAPSULE (FP) PO SCH ×4 (00:04→22:53)
[2019-01-31] MEDS: FLUTICASONE/SALMETEROL 100 MCG/50 MCG DISKUS IH SCH ×3 (00:05→23:01)
[2019-01-31] MEDS: ALBUTEROL SO4 2.5/IPRATROPIUM 0.5 INH SOL 3 ML VIAL.NEB. NEB SCH ×6 (00:20→20:32)
[2019-01-31] MEDS ORDERED: DEXTROSE 5%-WATER 100 ML IVPB ONE ×2 (02:35→11:26)
[2019-01-31] MEDS ORDERED: MEROPENEM 1 GM VIAL (RESTRICTED TO ID) IVPB ONE ×2 (02:35→11:25)
[2019-01-31] MEDS: MEROPENEM 1 GM in DEXTROSE 5%-WATER 100 ML IVPB SCH ×2 (02:41→14:00)
[2019-01-31] MEDS: MORPHINE SULFATE 2 MG/ML VIAL IVPUSH PRN (05:55)
[2019-01-31] MEDS: ACETAMINOPHEN 325 MG TABLET (FP) PO PRN ×2 (05:56→22:54)
[2019-01-31 09:02] LABS: BASO % 0.3 % (0-2.0); EOS % 0.3 % (0-4.5); HEMATOCRIT 23.1 % (32.4-45.2); HEMOGLOBIN 7.7 GM/dL (10.7-15.3); LYMPH % 16.3 % (8-40); MCH 30.6 pg (25.7-33.7); MCHC 33.1 g/dl (32.0-36.0); MEAN CELL VOLUME 92.4 fl (80-96); MEAN PLT VOLUME 8.8 fl (7.5-11.1); MONO % 3.7 % (3.8-10.2); NEUT % 79.4 % (42.8-82.8); PLATELET COUNT 279 K/MM3 (134-434); RDW 20.3 % (11.6-15.6); WHITE BLOOD COUNT 12.1 K/mm3 (4.0-10.0)
--- NOTE | 2019-01-31 09:15 | PN ---
Progress Note (short form) - Note Progress Note: PULMONARY Breathing about the same. c/o pain at bedsores. Vital Signs Period Temp Pulse Resp BP Sys/Rodriguez Pulse Ox Last 24 Hr 97.6 F-100.3 F 118-124 19-20 105-154/49-61 95-96 Gen: frequent coughing Heart: RRR Lung: scattered rhonchi, wheezes Abd: soft, nontender Ext: + edema CBC, BMP 01/31/19 07:00 Active Medications Acetaminophen (Tylenol -) 650 mg PO QID PRN PRN Reason: PAIN 1-3 Last Admin: 01/31/19 05:56 Dose: 650 mg Albuterol/Ipratropium (Duoneb -) 1 amp NEB RQ4H [facility] Last Admin: 01/31/19 07:30 Dose: 1 amp Bacitracin (Bacitracin -) 1 applic TP DAILY [facility] Last Admin: 01/30/19 10:37 Dose: 1 applic Diltiazem HCl (Cardizem Cd -) 180 mg PO DAILY [facility] Last Admin: 01/30/19 10:38 Dose: 180 mg Gabapentin (Neurontin -) 100 mg PO TID [facility] Last Admin: 01/31/19 05:55 Dose: 100 mg IV Flush (Triple Lumen Flush) 4 ml IVPUSH PRN PRN PRN Reason: Protocol Meropenem 1 gm/ Dextrose 100 mls @ 200 mls/hr IVPB Q12H [facility] Last Admin: 01/31/19 02:41 Dose: 200 mls/hr Doxycycline Hyclate 100 mg/ (Dextrose) 100 mls @ 100 mls/hr IVPB BID [facility] Last Admin: 01/31/19 00:03 Dose: 100 mls/hr Lactated Ringer's (Lactated Ringers Solution) 1,000 ml in 1,000 mls @ 75 mls/ hr IV ASDIR [facility] Last Admin: 01/31/19 00:02 Dose: 75 mls/hr Metoprolol Succinate (Toprol Xl -) 50 mg PO HS [facility] Last Admin: 01/31/19 00:29 Dose: Not Given Morphine Sulfate (Morphine Sulfate) 4 mg IVPUSH Q3H PRN PRN Reason: PAIN LEVEL 6-10 Last Admin: 01/31/19 05:55 Dose: 4 mg Nystatin (Nystop Powder -) 1 applic TP DAILY [facility] Last Admin: 01/30/19 10:39 Dose: 1 applic Ondansetron HCl (Zofran -) 4 mg PO TID PRN PRN Reason: NAUSEA Pantoprazole Sodium (Protonix Iv) 40 mg IVPUSH DAILY [facility] Polyethylene Glycol (Miralax (For Daily Use) -) 17 gm PO DAILY [facility] Last Admin: 01/30/19 10:39 Dose: 17 grams Fluticasone/Salmeterol (Advair 100mcg/50mcg -) 1 puff IH BID [facility] Last Admin: 01/31/19 00:05 Dose: 1 puff Silver Sulfadiazine (Silvadene -) 1 applic TP BID [facility] Last Admin: 01/31/19 00:04 Dose: 1 applic Tramadol HCl (Ultram -) 50 mg PO Q8H PRN PRN Reason: PAIN LEVEL 6-10 Last Admin: 01/29/19 15:00 Dose: 50 mg A/P Acute on Chronic Hypoxic Respiratory Failure UTI Sacral Decubitus Infection Gram Positive Bacteremia Sepsis COPD Atrial Fibrillation LV Systolic/Diastolic Dysfunction CKD Pancytopenia Anemia requiring PRBC transfusions Goiter with Tracheal compression - continue antibiotics - wound care - pain control - monitor CBC - O2 to keep Spo2 >90% - BiPAP as needed to assist in work of breathing - inhaled bronchodilators - rate control - anticoagulation to target INR 2-3 - DVT prophylaxis
[2019-01-31 09:33] LABS: ALBUMIN 1.1 g/dl (3.4-5.0); BILIRUBIN,TOTAL 0.2 mg/dL (0.2-1); BLOOD UREA NITROGEN 36.3 mg/dL (7-18); CALCIUM 8.2 mg/dL (8.5-10.1); CREATININE 1.6 mg/dL (0.55-1.3); POTASSIUM 4.9 mmol/L (3.5-5.1); TOT PROT 3.7 g/dl (6.4-8.2)
[2019-01-31 10:36] LABS: INR 1.89 (0.83-1.09); PROTHROMBIN TIME (PATIENT) 22.5 SEC (9.7-13.0)
[2019-01-31 11:26] LABS: ANISOCYTOSIS 1+; MACROCYTOSIS 1+; OVALOCYTE 1+; PLATELET ESTIMATE NORMAL
[2019-01-31] MEDS: traMADol HCL 50 MG TABLET PO PRN ×2 (11:31→22:53)
[2019-01-31] MEDS: NYSTATIN POWDER 100,000 UNITS/GM - 15 GM TOPICAL POWDER TP SCH (11:33)
[2019-01-31] MEDS: PANTOPRAZOLE SODIUM 40 MG VIAL IVPUSH SCH (11:33)
[2019-01-31] MEDS: BACITRACIN 15 GM TUBE TOPICAL OINTMENT TP SCH (11:34)
[2019-01-31] MEDS: POLYETHYLENE GLYCOL 3350 119 GM BTL PO SCH (11:34)
--- NOTE | 2019-01-31 12:08 | PN ---
Progress Note, Physician History of Present Illness: no new issues c/o of pain all over - Current Medication List Current Medications: Active Medications Acetaminophen (Tylenol -) 650 mg PO QID PRN PRN Reason: PAIN 1-3 Last Admin: 01/31/19 05:56 Dose: 650 mg Albuterol/Ipratropium (Duoneb -) 1 amp NEB RQ4H [facility] Last Admin: 01/31/19 11:35 Dose: 1 amp Bacitracin (Bacitracin -) 1 applic TP DAILY [facility] Last Admin: 01/31/19 11:34 Dose: 1 applic Diltiazem HCl (Cardizem Cd -) 180 mg PO DAILY [facility] Last Admin: 01/31/19 11:31 Dose: 180 mg Gabapentin (Neurontin -) 100 mg PO TID [facility] Last Admin: 01/31/19 05:55 Dose: 100 mg IV Flush (Triple Lumen Flush) 4 ml IVPUSH PRN PRN PRN Reason: Protocol Meropenem 1 gm/ Dextrose 100 mls @ 200 mls/hr IVPB Q12H [facility] Last Admin: 01/31/19 02:41 Dose: 200 mls/hr Doxycycline Hyclate 100 mg/ (Dextrose) 100 mls @ 100 mls/hr IVPB BID [facility] Last Admin: 01/31/19 11:33 Dose: 100 mls/hr Lactated Ringer's (Lactated Ringers Solution) 1,000 ml in 1,000 mls @ 75 mls/ hr IV ASDIR [facility] Last Admin: 01/31/19 00:02 Dose: 75 mls/hr Metoprolol Succinate (Toprol Xl -) 50 mg PO HS [facility] Last Admin: 01/31/19 00:29 Dose: Not Given Morphine Sulfate (Morphine Sulfate) 4 mg IVPUSH Q3H PRN PRN Reason: PAIN LEVEL 6-10 Last Admin: 01/31/19 05:55 Dose: 4 mg Nystatin (Nystop Powder -) 1 applic TP DAILY [facility] Last Admin: 01/31/19 11:33 Dose: 1 applic Ondansetron HCl (Zofran -) 4 mg PO TID PRN PRN Reason: NAUSEA Pantoprazole Sodium (Protonix Iv) 40 mg IVPUSH DAILY [facility] Last Admin: 01/31/19 11:33 Dose: 40 mg Polyethylene Glycol (Miralax (For Daily Use) -) 17 gm PO DAILY [facility] Last Admin: 01/31/19 11:34 Dose: Not Given Fluticasone/Salmeterol (Advair 100mcg/50mcg -) 1 puff IH BID [facility] Last Admin: 01/31/19 11:35 Dose: 1 puff Silver Sulfadiazine (Silvadene -) 1 applic TP BID [facility] Last Admin: 01/31/19 11:33 Dose: 1 applic Tramadol HCl (Ultram -) 50 mg PO Q8H PRN PRN Reason: PAIN LEVEL 6-10 Last Admin: 01/31/19 11:31 Dose: 50 mg - Objective Vital Signs: Vital Signs Temperature 100.3 F H 01/31/19 05:00 Pulse Rate 118 H 01/31/19 05:00 Respiratory Rate 20 01/31/19 05:00 Blood Pressure 107/59 L 01/31/19 05:00 O2 Sat by Pulse Oximetry (%) 95 01/30/19 23:00 Constitutional: Yes: Calm Cardiovascular: Yes: S1, S2 Respiratory: Yes: Regular, On Nasal O2, Poor Air Entry Gastrointestinal: Yes: Normal Bowel Sounds, Soft Musculoskeletal: Yes: Other Extremities: Yes: Other Wound/Incision: Yes: Other (bed sores) Neurological: Yes: Alert, Oriented Psychiatric: Yes: Alert, Oriented Labs: CBC, BMP 01/31/19 07:00 01/31/19 07:00 INR, PTT INR 1.89 (0.83-1.09) H 01/31/19 07:00 Fibrinogen 474.0 mg/dL (238-498) 01/23/19 07:03 Assessment/Plan Problem List - Problems (1) Respiratory failure Code(s): J96.90 - RESPIRATORY FAILURE, UNSP, UNSP W HYPOXIA OR HYPERCAPNIA (2) SOB (shortness of breath) Code(s): R06.02 - SHORTNESS OF BREATH (3) Symptomatic anemia Code(s): D64.9 - ANEMIA, UNSPECIFIED (4) Acute on chronic renal failure Code(s): N17.9 - ACUTE KIDNEY FAILURE, UNSPECIFIED; N18.9 - CHRONIC KIDNEY DISEASE, UNSPECIFIED (5) Afib Code(s): I48.91 - UNSPECIFIED ATRIAL FIBRILLATION Qualifiers: Atrial fibrillation type: chronic Qualified Code(s): I48.2 - Chronic atrial fibrillation (6) CHF (NYHA class II, ACC/AHA stage C) Code(s): I50.9 - HEART FAILURE, UNSPECIFIED (7) CKD (chronic kidney disease) Code(s): N18.9 - CHRONIC KIDNEY DISEASE, UNSPECIFIED Qualifiers: Chronic kidney disease stage: stage 4 (severe) Qualified Code(s): N18.4 - Chronic kidney disease, stage 4 (severe) (8) COPD (chronic obstructive pulmonary disease) Code(s): J44.9 - CHRONIC OBSTRUCTIVE PULMONARY DISEASE, UNSPECIFIED Qualifiers: COPD type: unspecified COPD Qualified Code(s): J44.9 - Chronic obstructive pulmonary disease, unspecified (9) Hypercholesteremia Code(s): E78.00 - PURE HYPERCHOLESTEROLEMIA, UNSPECIFIED (10) Hypertension Code(s): I10 - ESSENTIAL (PRIMARY) HYPERTENSION (11) Hyperthyroidism Code(s): E05.90 - THYROTOXICOSIS, UNSP WITHOUT THYROTOXIC CRISIS OR STORM (12) Obese Code(s): E66.9 - OBESITY, UNSPECIFIED (13) Sacral decubitus ulcer, stage II Code(s): L89.152 - PRESSURE ULCER OF SACRAL REGION, STAGE 2 (14) Thyromegaly Code(s): E01.0 - IODINE-DEFICIENCY RELATED DIFFUSE (ENDEMIC) GOITER (15) Tracheal compression Code(s): J39.8 - OTHER SPECIFIED DISEASES OF UPPER RESPIRATORY TRACT (16) UTI (urinary tract infection) Code(s): N39.0 - URINARY TRACT INFECTION, SITE NOT SPECIFIED Qualifiers: Urinary tract infection type: site unspecified Hematuria presence: without hematuria Qualified Code(s): N39.0 - Urinary tract infection, site not specified 17 gi bleed Assessment/Plan 88 y.o. female with PMH of COPD on home O2, CHF, ASHD, HTN, HLD, CKD, diverticultis/ ? ischemic colitis s/p partial colectomy, s/p JW/BSO, chronic cough/persistent pulmonary infiltrates, multinodular goiter with partial tracheal compression, and anemia presents with c/o worsening SOB over the past week with subjective fever/chills. Fever Gram positive bacteremia UTI Acute hypoxic respiratory failure Possible HCAP Groin rash/excoriations Pancytopenia - ? due to Methimazole Multinodular goiter with partial tracheal compression COPD Hx of CKD AFIB CHF ASHD HTN HLD gi bleed plan continue current mgmt abx complete the course nutrition wound care
--- NOTE | 2019-01-31 12:46 | PN ---
Progress Note, Physician Chief Complaint: Remained afebrile c/o pain in wound rpt cultures are -ve - Current Medication List Current Medications: Active Medications Acetaminophen (Tylenol -) 650 mg PO QID PRN PRN Reason: PAIN 1-3 Last Admin: 01/31/19 05:56 Dose: 650 mg Albuterol/Ipratropium (Duoneb -) 1 amp NEB RQ4H [facility] Last Admin: 01/31/19 11:35 Dose: 1 amp Bacitracin (Bacitracin -) 1 applic TP DAILY [facility] Last Admin: 01/31/19 11:34 Dose: 1 applic Diltiazem HCl (Cardizem Cd -) 180 mg PO DAILY [facility] Last Admin: 01/31/19 11:31 Dose: 180 mg Gabapentin (Neurontin -) 100 mg PO TID [facility] Last Admin: 01/31/19 05:55 Dose: 100 mg IV Flush (Triple Lumen Flush) 4 ml IVPUSH PRN PRN PRN Reason: Protocol Meropenem 1 gm/ Dextrose 100 mls @ 200 mls/hr IVPB Q12H [facility] Last Admin: 01/31/19 02:41 Dose: 200 mls/hr Doxycycline Hyclate 100 mg/ (Dextrose) 100 mls @ 100 mls/hr IVPB BID [facility] Last Admin: 01/31/19 11:33 Dose: 100 mls/hr Lactated Ringer's (Lactated Ringers Solution) 1,000 ml in 1,000 mls @ 75 mls/ hr IV ASDIR [facility] Last Admin: 01/31/19 00:02 Dose: 75 mls/hr Metoprolol Succinate (Toprol Xl -) 50 mg PO HS [facility] Last Admin: 01/31/19 00:29 Dose: Not Given Morphine Sulfate (Morphine Sulfate) 4 mg IVPUSH Q3H PRN PRN Reason: PAIN LEVEL 6-10 Last Admin: 01/31/19 05:55 Dose: 4 mg Nystatin (Nystop Powder -) 1 applic TP DAILY [facility] Last Admin: 01/31/19 11:33 Dose: 1 applic Ondansetron HCl (Zofran -) 4 mg PO TID PRN PRN Reason: NAUSEA Pantoprazole Sodium (Protonix Iv) 40 mg IVPUSH DAILY [facility] Last Admin: 01/31/19 11:33 Dose: 40 mg Polyethylene Glycol (Miralax (For Daily Use) -) 17 gm PO DAILY [facility] Last Admin: 01/31/19 11:34 Dose: Not Given Fluticasone/Salmeterol (Advair 100mcg/50mcg -) 1 puff IH BID [facility] Last Admin: 01/31/19 11:35 Dose: 1 puff Silver Sulfadiazine (Silvadene -) 1 applic TP BID [facility] Last Admin: 01/31/19 11:33 Dose: 1 applic Tramadol HCl (Ultram -) 50 mg PO Q8H PRN PRN Reason: PAIN LEVEL 6-10 Last Admin: 01/31/19 11:31 Dose: 50 mg - Objective Vital Signs: Vital Signs Temperature 100.3 F H 01/31/19 05:00 Pulse Rate 118 H 01/31/19 05:00 Respiratory Rate 20 01/31/19 05:00 Blood Pressure 107/59 L 01/31/19 05:00 O2 Sat by Pulse Oximetry (%) 95 01/30/19 23:00 Elderly sick looking F looks edematous, not in distress HEENT: facial puffiness anemia, no external trauma NECK; No JVd No BrUit CHEST: Congested equal AE no wheezes ABD: Obese, non tender EXT: Edematous with multiple echymoses BOROUGH COORDINATOR: 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 Labs: CBC, BMP 01/31/19 07:00 01/31/19 07:00 INR, PTT INR 1.89 (0.83-1.09) H 01/31/19 07:00 Fibrinogen 474.0 mg/dL (238-498) 01/23/19 07:03 Problem List - Problems (1) Symptomatic anemia Assessment/Plan: Hb 7.7 stable at base line on IV PPI Code(s): D64.9 - ANEMIA, UNSPECIFIED (2) Respiratory failure Assessment/Plan: Due to CHF exacerbation and sever anemia improving on Nebs and PO Lasix Code(s): J96.90 - RESPIRATORY FAILURE, UNSP, UNSP W HYPOXIA OR HYPERCAPNIA (3) CHF (NYHA class II, ACC/AHA stage C) Assessment/Plan: Cont current management F/U cardiology recommendation PO lasix 40mg daily Code(s): I50.9 - HEART FAILURE, UNSPECIFIED (4) CKD (chronic kidney disease) Assessment/Plan: Stable F/U BMP Code(s): N18.9 - CHRONIC KIDNEY DISEASE, UNSPECIFIED Qualifiers: Chronic kidney disease stage: stage 4 (severe) Qualified Code(s): N18.4 - Chronic kidney disease, stage 4 (severe) (5) Persistent atrial fibrillation Assessment/Plan: Will discuss with cardiology to start on Digoxine as not tolerating B Blockers or Diltizem due to BP INR 1.89 resume coumadin 2 F/U INR in am Code(s): I48.1 - PERSISTENT ATRIAL FIBRILLATION (6) COPD (chronic obstructive pulmonary disease) Assessment/Plan: ont Advair and Duoneb with ABX as per ID persistent infiltrates less likely pneumonia Code(s): J44.9 - CHRONIC OBSTRUCTIVE PULMONARY DISEASE, UNSPECIFIED Qualifiers: COPD type: unspecified COPD Qualified Code(s): J44.9 - Chronic obstructive pulmonary disease, unspecified (7) Thyromegaly Assessment/Plan: F/U Endo recommendation will F/U TSH Code(s): E01.0 - IODINE-DEFICIENCY RELATED DIFFUSE (ENDEMIC) GOITER (8) Malnutrition Assessment/Plan: Low albumin F/U Pre albumin and Nutrition consult Code(s): E46 - UNSPECIFIED PROTEIN-CALORIE MALNUTRITION Qualifiers: Malnutrition type: protein-calorie malnutrition (9) Pressure ulcer Assessment/Plan: Gibbons catheter and wound care. cont current abx Code(s): L89.90 - PRESSURE ULCER OF UNSPECIFIED SITE, UNSPECIFIED STAGE (10) UTI (urinary tract infection) Assessment/Plan: ESBL E colli on meropenem Code(s): N39.0 - URINARY TRACT INFECTION, SITE NOT SPECIFIED (11) Goals of care, counseling/discussion Assessment/Plan: discussed with the family will F/U Code(s): Z71.89 - OTHER SPECIFIED COUNSELING Assessment/Plan Patient remained hemodynamically better but over all weak and de-conditioned, no growth so far from triple Lumen trip or blood culture on IV meropenem for ESBL E Colli and Doxycycline renal functins are stable, INR therapeutic no gross Pulmonary congestion INR therapeutic, No Melena since an episode of black stool 3 days ago Plan: INR subtherapeutic add Coumadin 2 mg Low grade fever TWBC 12 K ID recommended cont current abx will F/u clinical course. Discussed with family Goals of care and ADR
[2019-01-31] MEDS: AMINO ACIDS 4.25%/D5W 1,000 ML IV SCH (19:38)
[2019-02-01] MEDS: ALBUTEROL SO4 2.5/IPRATROPIUM 0.5 INH SOL 3 ML VIAL.NEB. NEB SCH ×6 (00:10→20:15)
[2019-02-01] MEDS: AMINO ACIDS 4.25%/D5W 1,000 ML IV SCH ×3 (02:07→14:48)
[2019-02-01] MEDS ORDERED: DEXTROSE 5%-WATER 100 ML IVPB ONE ×2 (02:33→14:43)
[2019-02-01] MEDS ORDERED: MEROPENEM 1 GM VIAL (RESTRICTED TO ID) IVPB ONE ×2 (02:33→14:43)
[2019-02-01] MEDS: MEROPENEM 1 GM in DEXTROSE 5%-WATER 100 ML IVPB SCH ×2 (02:46→14:48)
[2019-02-01] MEDS: MORPHINE SULFATE 2 MG/ML VIAL IVPUSH PRN (05:50)
[2019-02-01] MEDS: GABAPENTIN 100 MG CAPSULE (FP) PO SCH ×3 (05:51→22:57)
[2019-02-01 07:49] LABS: BASO % 0.4 % (0-2.0); EOS % 0.2 % (0-4.5); HEMATOCRIT 23.2 % (32.4-45.2); HEMOGLOBIN 7.4 GM/dL (10.7-15.3); LYMPH % 14.5 % (8-40); MCH 29.8 pg (25.7-33.7); MCHC 31.9 g/dl (32.0-36.0); MEAN CELL VOLUME 93.5 fl (80-96); MEAN PLT VOLUME 8.7 fl (7.5-11.1); MONO % 4.2 % (3.8-10.2); NEUT % 80.7 % (42.8-82.8); PLATELET COUNT 269 K/MM3 (134-434); RBC 2.49 M/mm3 (3.60-5.2)
[2019-02-01 07:57] LABS: BLOOD UREA NITROGEN 39.1 mg/dL (7-18); CALCIUM 7.9 mg/dL (8.5-10.1); CREATININE 1.6 mg/dL (0.55-1.3); POTASSIUM 5.1 mmol/L (3.5-5.1)
[2019-02-01 07:58] LABS: INR 1.69 (0.83-1.09); PROTHROMBIN TIME (PATIENT) 20.1 SEC (9.7-13.0)
[2019-02-01 08:14] LABS: WHITE BLOOD COUNT 14.8 K/mm3 (4.0-10.0)
--- NOTE | 2019-02-01 09:40 | PN ---
Progress Note, Physician History of Present Illness: events noted hypoxia lat night - Current Medication List Current Medications: Active Medications Acetaminophen (Tylenol -) 650 mg PO QID PRN PRN Reason: PAIN 1-3 Last Admin: 01/31/19 22:54 Dose: 650 mg Albuterol/Ipratropium (Duoneb -) 1 amp NEB RQ4H [facility] Last Admin: 02/01/19 07:52 Dose: 1 amp Bacitracin (Bacitracin -) 1 applic TP DAILY [facility] Last Admin: 01/31/19 11:34 Dose: 1 applic Diltiazem HCl (Cardizem Cd -) 180 mg PO DAILY [facility] Last Admin: 01/31/19 11:31 Dose: 180 mg Gabapentin (Neurontin -) 100 mg PO TID [facility] Last Admin: 02/01/19 05:51 Dose: 100 mg IV Flush (Triple Lumen Flush) 4 ml IVPUSH PRN PRN PRN Reason: Protocol Meropenem 1 gm/ Dextrose 100 mls @ 200 mls/hr IVPB Q12H [facility] Last Admin: 02/01/19 02:46 Dose: 200 mls/hr Doxycycline Hyclate 100 mg/ (Dextrose) 100 mls @ 100 mls/hr IVPB BID [facility] Last Admin: 01/31/19 22:53 Dose: 100 mls/hr Amino Acids (Clinimix -) 1,000 mls @ 84 mls/hr IV Q12H [facility] Last Admin: 02/01/19 06:07 Dose: 84 mls/hr Metoprolol Succinate (Toprol Xl -) 50 mg PO HS [facility] Last Admin: 01/31/19 22:53 Dose: 50 mg Morphine Sulfate (Morphine Sulfate) 4 mg IVPUSH Q3H PRN PRN Reason: PAIN LEVEL 6-10 Last Admin: 02/01/19 05:50 Dose: 4 mg Nystatin (Nystop Powder -) 1 applic TP DAILY [facility] Last Admin: 01/31/19 11:33 Dose: 1 applic Ondansetron HCl (Zofran -) 4 mg PO TID PRN PRN Reason: NAUSEA Pantoprazole Sodium (Protonix Iv) 40 mg IVPUSH DAILY [facility] Last Admin: 01/31/19 11:33 Dose: 40 mg Fluticasone/Salmeterol (Advair 100mcg/50mcg -) 1 puff IH BID [facility] Last Admin: 01/31/19 23:01 Dose: 1 puff Silver Sulfadiazine (Silvadene -) 1 applic TP BID [facility] Last Admin: 01/31/19 23:02 Dose: 1 applic Tramadol HCl (Ultram -) 50 mg PO Q8H PRN PRN Reason: PAIN LEVEL 6-10 Last Admin: 01/31/19 22:53 Dose: 50 mg - Objective Vital Signs: Vital Signs Temperature 98.5 F 02/01/19 06:00 Pulse Rate 93 H 02/01/19 06:00 Respiratory Rate 20 02/01/19 06:00 Blood Pressure 120/64 02/01/19 06:00 O2 Sat by Pulse Oximetry (%) 95 02/01/19 07:53 Constitutional: Yes: No Distress, Calm Cardiovascular: Yes: S1, S2 Respiratory: Yes: On BiPap, On Nasal O2, Poor Air Entry Gastrointestinal: Yes: Normal Bowel Sounds, Soft Extremities: Yes: WNL Wound/Incision: Yes: Other Neurological: Yes: Alert, Oriented Psychiatric: Yes: Alert, Oriented Labs: CBC, BMP 02/01/19 05:45 02/01/19 05:45 INR, PTT INR 1.69 (0.83-1.09) H 02/01/19 05:45 Fibrinogen 474.0 mg/dL (238-498) 01/23/19 07:03 Assessment/Plan Problem List - Problems (1) Respiratory failure Code(s): J96.90 - RESPIRATORY FAILURE, UNSP, UNSP W HYPOXIA OR HYPERCAPNIA (2) SOB (shortness of breath) Code(s): R06.02 - SHORTNESS OF BREATH (3) Symptomatic anemia Code(s): D64.9 - ANEMIA, UNSPECIFIED (4) Acute on chronic renal failure Code(s): N17.9 - ACUTE KIDNEY FAILURE, UNSPECIFIED; N18.9 - CHRONIC KIDNEY DISEASE, UNSPECIFIED (5) Afib Code(s): I48.91 - UNSPECIFIED ATRIAL FIBRILLATION Qualifiers: Atrial fibrillation type: chronic Qualified Code(s): I48.2 - Chronic atrial fibrillation (6) CHF (NYHA class II, ACC/AHA stage C) Code(s): I50.9 - HEART FAILURE, UNSPECIFIED (7) CKD (chronic kidney disease) Code(s): N18.9 - CHRONIC KIDNEY DISEASE, UNSPECIFIED Qualifiers: Chronic kidney disease stage: stage 4 (severe) Qualified Code(s): N18.4 - Chronic kidney disease, stage 4 (severe) (8) COPD (chronic obstructive pulmonary disease) Code(s): J44.9 - CHRONIC OBSTRUCTIVE PULMONARY DISEASE, UNSPECIFIED Qualifiers: COPD type: unspecified COPD Qualified Code(s): J44.9 - Chronic obstructive pulmonary disease, unspecified (9) Hypercholesteremia Code(s): E78.00 - PURE HYPERCHOLESTEROLEMIA, UNSPECIFIED (10) Hypertension Code(s): I10 - ESSENTIAL (PRIMARY) HYPERTENSION (11) Hyperthyroidism Code(s): E05.90 - THYROTOXICOSIS, UNSP WITHOUT THYROTOXIC CRISIS OR STORM (12) Obese Code(s): E66.9 - OBESITY, UNSPECIFIED (13) Sacral decubitus ulcer, stage II Code(s): L89.152 - PRESSURE ULCER OF SACRAL REGION, STAGE 2 (14) Thyromegaly Code(s): E01.0 - IODINE-DEFICIENCY RELATED DIFFUSE (ENDEMIC) GOITER (15) Tracheal compression Code(s): J39.8 - OTHER SPECIFIED DISEASES OF UPPER RESPIRATORY TRACT (16) UTI (urinary tract infection) Code(s): N39.0 - URINARY TRACT INFECTION, SITE NOT SPECIFIED Qualifiers: Urinary tract infection type: site unspecified Hematuria presence: without hematuria Qualified Code(s): N39.0 - Urinary tract infection, site not specified 17 gi bleed Assessment/Plan 88 y.o. female with PMH of COPD on home O2, CHF, ASHD, HTN, HLD, CKD, diverticultis/ ? ischemic colitis s/p partial colectomy, s/p JW/BSO, chronic cough/persistent pulmonary infiltrates, multinodular goiter with partial tracheal compression, and anemia presents with c/o worsening SOB over the past week with subjective fever/chills. Fever Gram positive bacteremia UTI Acute hypoxic respiratory failure Possible HCAP Groin rash/excoriations Pancytopenia - ? due to Methimazole Multinodular goiter with partial tracheal compression COPD Hx of CKD AFIB CHF ASHD HTN HLD gi bleed plan continue current mgmt abx complete the course nutrition wound care avoid pressure
[2019-02-01] MEDS ORDERED: PT OWN MED DRAWER 7, Y5N ONE ×2 (10:30→20:30)
[2019-02-01 11:12] LABS: ANISOCYTOSIS 1+; MACROCYTOSIS 1+; OVALOCYTE 1+; PLATELET ESTIMATE NORMAL
[2019-02-01] MEDS: FLUTICASONE/SALMETEROL 100 MCG/50 MCG DISKUS IH SCH ×2 (11:46→22:58)
[2019-02-01] MEDS: NYSTATIN POWDER 100,000 UNITS/GM - 15 GM TOPICAL POWDER TP SCH (11:47)
[2019-02-01] MEDS: BACITRACIN 15 GM TUBE TOPICAL OINTMENT TP SCH (11:47)
[2019-02-01] MEDS: PANTOPRAZOLE SODIUM 40 MG VIAL IVPUSH SCH (11:47)
[2019-02-01] MEDS: traMADol HCL 50 MG TABLET PO PRN (11:48)
[2019-02-01] MEDS: SILVER SULFADIAZINE 1% TOP CREAM 400 GM JAR TP SCH ×2 (11:48→22:58)
[2019-02-01] MEDS: DOXYCYCLINE INJECTION 100 MG in DEXTROSE 5%-WATER - 100 ML IVPB SCH (11:49)
--- NOTE | 2019-02-01 12:18 | PN ---
Progress Note (short form) - Note Progress Note: Please to rec referred to recent consult. 88 year old -[place] female was readmitted with progressive shortness of breath requiring high flow oxygen , also found to have severe anemia with pancytopenia which was attributed to the use of methimazole. Patient has decubiti ulcers, was found to be was found to be to be septic with a urinary tract infection. She has had progressive pedal edema and clinically has congestive heart. Has had progressive deterioration of her clinical status. SOB, lethargic, coughing, failure to thrive. Afebrile. Active Medications Acetaminophen (Tylenol -) 650 mg PO QID PRN PRN Reason: PAIN 1-3 Last Admin: 01/31/19 22:54 Dose: 650 mg Albuterol/Ipratropium (Duoneb -) 1 amp NEB RQ4H [facility] Last Admin: 02/01/19 11:22 Dose: Not Given Bacitracin (Bacitracin -) 1 applic TP DAILY [facility] Last Admin: 02/01/19 11:47 Dose: 1 applic Diltiazem HCl (Cardizem Cd -) 180 mg PO DAILY [facility] Last Admin: 02/01/19 11:47 Dose: Not Given Gabapentin (Neurontin -) 100 mg PO TID [facility] Last Admin: 02/01/19 05:51 Dose: 100 mg IV Flush (Triple Lumen Flush) 4 ml IVPUSH PRN PRN PRN Reason: Protocol Meropenem 1 gm/ Dextrose 100 mls @ 200 mls/hr IVPB Q12H [facility] Last Admin: 02/01/19 02:46 Dose: 200 mls/hr Doxycycline Hyclate 100 mg/ (Dextrose) 100 mls @ 100 mls/hr IVPB BID [facility] Last Admin: 02/01/19 11:49 Dose: 100 mls/hr Amino Acids (Clinimix -) 1,000 mls @ 84 mls/hr IV Q12H [facility] Last Admin: 02/01/19 06:07 Dose: 84 mls/hr Metoprolol Succinate (Toprol Xl -) 50 mg PO HS [facility] Last Admin: 01/31/19 22:53 Dose: 50 mg Morphine Sulfate (Morphine Sulfate) 4 mg IVPUSH Q3H PRN PRN Reason: PAIN LEVEL 6-10 Last Admin: 02/01/19 05:50 Dose: 4 mg Nystatin (Nystop Powder -) 1 applic TP DAILY [facility] Last Admin: 02/01/19 11:47 Dose: 1 applic Ondansetron HCl (Zofran -) 4 mg PO TID PRN PRN Reason: NAUSEA Pantoprazole Sodium (Protonix Iv) 40 mg IVPUSH DAILY [facility] Last Admin: 02/01/19 11:47 Dose: 40 mg Fluticasone/Salmeterol (Advair 100mcg/50mcg -) 1 puff IH BID [facility] Last Admin: 02/01/19 11:46 Dose: 1 puff Silver Sulfadiazine (Silvadene -) 1 applic TP BID [facility] Last Admin: 02/01/19 11:48 Dose: 1 applic Tramadol HCl (Ultram -) 50 mg PO Q8H PRN PRN Reason: PAIN LEVEL 6-10 Last Admin: 02/01/19 11:48 Dose: 50 mg Last Vital Signs Temp Pulse Resp BP Pulse Ox 98.5 F 93 H 20 120/64 95 02/01/19 06:00 02/01/19 06:00 02/01/19 06:00 02/01/19 06:00 02/01/19 11:23 NECK: Supple, positive hepatojugular reflux, carotids were 2+. No bruits were appreciated. HEART: PMI was not localized. Heart sounds were distant, partially obscured by coarse breath sounds. No murmur or gallops were heard. LUNGS: bilateral scattered expiratory wheezing. Unable to appreciate crepitations. ABDOMEN; soft, protuberant and nontender. No hepatosplenomegaly or palpable masses were appreciated. EXTREMITIES: 3+ bilateral pretibial and pedal edema. No calf tenderness was elicited. Dorsalis pedis and posterior tibial pulses could not be palpated. CBC, BMP 02/01/19 05:45 02/01/19 05:45 Impression: 1. Progressive respiratory failure: a). 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 2. Recent urinary tract infection, deteriorating decubiti and sepsis. 3. Coronary artery disease, angina pectoris, presently stable. 4. 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 5. Multinodular goiter/thyromegaly. 6. History of thyrotoxicosis. 7. Severe anemia. 8. Pressure decubtus 9. Chronic kidney disease. 10. Severe pedal edema, etiology: a). Hypoproteinemia. Recommendations: 1. IV Lasix and if necessary add Zaroxolyn 2.5 mg, half an hour before Lasix under close observation of electrolytes. 2. Correction of hypoproteinemia, may need iv albumen follwed by diuretics. Prognosis: Critical. Micky Hawkins MD.
--- NOTE | 2019-02-01 14:32 | PN ---
Progress Note (short form) - Note Progress Note: Appears weak. On Clinimix. Using NIPPV overnight. Denies CP. SOB overall improving. Intake & Output 01/29/19 01/30/19 01/31/19 02/01/19 23:59 23:59 23:59 23:59 Intake Total 1025 950 500 390 Output Total 3094 342 9834 250 Balance -375 100 -1100 140 Weight 240 lb 5 oz 243 lb 244 lb 7 oz 248 lb 2 oz Last Vital Signs Temp Pulse Resp BP Pulse Ox 98.5 F 91 H 20 110/55 L 95 02/01/19 13:49 02/01/19 13:49 02/01/19 13:49 02/01/19 13:49 02/01/19 11:23 Active Medications Acetaminophen (Tylenol -) 650 mg PO QID PRN PRN Reason: PAIN 1-3 Last Admin: 01/31/19 22:54 Dose: 650 mg Albuterol/Ipratropium (Duoneb -) 1 amp NEB RQ4H [facility] Last Admin: 02/01/19 11:22 Dose: Not Given Bacitracin (Bacitracin -) 1 applic TP DAILY [facility] Last Admin: 02/01/19 11:47 Dose: 1 applic Diltiazem HCl (Cardizem Cd -) 180 mg PO DAILY [facility] Last Admin: 02/01/19 11:47 Dose: Not Given Gabapentin (Neurontin -) 100 mg PO TID [facility] Last Admin: 02/01/19 05:51 Dose: 100 mg IV Flush (Triple Lumen Flush) 4 ml IVPUSH PRN PRN PRN Reason: Protocol Meropenem 1 gm/ Dextrose 100 mls @ 200 mls/hr IVPB Q12H [facility] Last Admin: 02/01/19 02:46 Dose: 200 mls/hr Doxycycline Hyclate 100 mg/ (Dextrose) 100 mls @ 100 mls/hr IVPB BID [facility] Last Admin: 02/01/19 11:49 Dose: 100 mls/hr Amino Acids (Clinimix -) 1,000 mls @ 84 mls/hr IV Q12H [facility] Last Admin: 02/01/19 06:07 Dose: 84 mls/hr Metoprolol Succinate (Toprol Xl -) 50 mg PO HS [facility] Last Admin: 01/31/19 22:53 Dose: 50 mg Morphine Sulfate (Morphine Sulfate) 4 mg IVPUSH Q3H PRN PRN Reason: PAIN LEVEL 6-10 Last Admin: 02/01/19 05:50 Dose: 4 mg Nystatin (Nystop Powder -) 1 applic TP DAILY [facility] Last Admin: 02/01/19 11:47 Dose: 1 applic Ondansetron HCl (Zofran -) 4 mg PO TID PRN PRN Reason: NAUSEA Pantoprazole Sodium (Protonix Iv) 40 mg IVPUSH DAILY [facility] Last Admin: 02/01/19 11:47 Dose: 40 mg Fluticasone/Salmeterol (Advair 100mcg/50mcg -) 1 puff IH BID [facility] Last Admin: 02/01/19 11:46 Dose: 1 puff Silver Sulfadiazine (Silvadene -) 1 applic TP BID [facility] Last Admin: 02/01/19 11:48 Dose: 1 applic Tramadol HCl (Ultram -) 50 mg PO Q8H PRN PRN Reason: PAIN LEVEL 6-10 Last Admin: 02/01/19 11:48 Dose: 50 mg Gen: Sleepy and weak appearing, NAD on NC O2 Heart: RRR Lung: scattered rhonchi Abd: soft, nontender Ext: no edema Laboratory Results - last 24 hr 01/28/19 02/01/19 02/01/19 16:55 05:45 05:45 WBC 14.8 H RBC 2.49 L Hgb 7.4 L Hct 23.2 L MCV 93.5 MCH 29.8 MCHC 31.9 L RDW 20.0 H Plt Count 269 MPV 8.7 Absolute Neuts (auto) 10.8 H Neutrophils % 80.7 Neutrophils % (Manual) 73.5 Band Neutrophils % 6.1 Lymphocytes % 14.5 Lymphocytes % (Manual) 12.3 D Monocytes % 4.2 Monocytes % (Manual) 5 Eosinophils % 0.2 Eosinophils % (Manual) 0.0 Basophils % 0.4 Basophils % (Manual) 0.0 Myelocytes % (Man) 2 D Promyelocytes % (Man) 0 Blast Cells % (Manual) 0 Nucleated RBC % 5 H Metamyelocytes 0 D Hypochromia 0 Platelet Estimate Normal Polychromasia 1+ Poikilocytosis 0 Basophilic Stippling 1+ Anisocytosis 1+ Microcytosis 0 Macrocytosis 1+ Ovalocytes 1+ PT with INR 20.10 H INR 1.69 H Sodium Potassium Chloride Carbon Dioxide Anion Gap BUN Creatinine Est GFR (CKD-EPI)AfAm Est GFR (CKD-EPI)NonAf Random Glucose Calcium Crossmatch See Detail 02/01/19 05:45 WBC RBC Hgb Hct MCV MCH MCHC RDW Plt Count MPV Absolute Neuts (auto) Neutrophils % Neutrophils % (Manual) Band Neutrophils % Lymphocytes % Lymphocytes % (Manual) Monocytes % Monocytes % (Manual) Eosinophils % Eosinophils % (Manual) Basophils % Basophils % (Manual) Myelocytes % (Man) Promyelocytes % (Man) Blast Cells % (Manual) Nucleated RBC % Metamyelocytes Hypochromia Platelet Estimate Polychromasia Poikilocytosis Basophilic Stippling Anisocytosis Microcytosis Macrocytosis Ovalocytes PT with INR INR Sodium 138 Potassium 5.1 Chloride 104 Carbon Dioxide 28 Anion Gap 7 L BUN 39.1 H Creatinine 1.6 H Est GFR (CKD-EPI)AfAm 32.77 Est GFR (CKD-EPI)NonAf 28.27 Random Glucose 109 H Calcium 7.9 L Crossmatch ASSESSMENT AND PLAN: Acute on Chronic Hypoxic Respiratory Failure UTI Sacral Decubitus Infection Gram Positive Bacteremia Sepsis COPD Atrial Fibrillation LV Systolic/Diastolic Dysfunction CKD Pancytopenia Anemia requiring PRBC transfusions Goiter with Tracheal compression - continue antibiotics per ID - Local wound care per surgery - monitor CBC - O2 to keep Spo2 >90% - NIPPV needed to assist in work of breathing - inhaled bronchodilators - rate control - anticoagulation to target INR 2-3 Dr Amaya
--- NOTE | 2019-02-01 15:38 | PN ---
Progress Note, Physician Chief Complaint: low grade fever TWBC 14 K stool C Diff Ag +e - Current Medication List Current Medications: Active Medications Acetaminophen (Tylenol -) 650 mg PO QID PRN PRN Reason: PAIN 1-3 Last Admin: 01/31/19 22:54 Dose: 650 mg Albuterol/Ipratropium (Duoneb -) 1 amp NEB RQ4H [facility] Last Admin: 02/01/19 11:22 Dose: Not Given Bacitracin (Bacitracin -) 1 applic TP DAILY [facility] Last Admin: 02/01/19 11:47 Dose: 1 applic Diltiazem HCl (Cardizem Cd -) 180 mg PO DAILY [facility] Last Admin: 02/01/19 11:47 Dose: Not Given Gabapentin (Neurontin -) 100 mg PO TID [facility] Last Admin: 02/01/19 14:48 Dose: 100 mg IV Flush (Triple Lumen Flush) 4 ml IVPUSH PRN PRN PRN Reason: Protocol Meropenem 1 gm/ Dextrose 100 mls @ 200 mls/hr IVPB Q12H [facility] Last Admin: 02/01/19 14:48 Dose: 200 mls/hr Doxycycline Hyclate 100 mg/ (Dextrose) 100 mls @ 100 mls/hr IVPB BID [facility] Last Admin: 02/01/19 11:49 Dose: 100 mls/hr Amino Acids (Clinimix -) 1,000 mls @ 84 mls/hr IV Q12H [facility] Last Admin: 02/01/19 14:48 Dose: 84 mls/hr Metoprolol Succinate (Toprol Xl -) 50 mg PO HS [facility] Last Admin: 01/31/19 22:53 Dose: 50 mg Morphine Sulfate (Morphine Sulfate) 4 mg IVPUSH Q3H PRN PRN Reason: PAIN LEVEL 6-10 Last Admin: 02/01/19 05:50 Dose: 4 mg Nystatin (Nystop Powder -) 1 applic TP DAILY [facility] Last Admin: 02/01/19 11:47 Dose: 1 applic Ondansetron HCl (Zofran -) 4 mg PO TID PRN PRN Reason: NAUSEA Pantoprazole Sodium (Protonix Iv) 40 mg IVPUSH DAILY [facility] Last Admin: 02/01/19 11:47 Dose: 40 mg Fluticasone/Salmeterol (Advair 100mcg/50mcg -) 1 puff IH BID [facility] Last Admin: 02/01/19 11:46 Dose: 1 puff Silver Sulfadiazine (Silvadene -) 1 applic TP BID [facility] Last Admin: 02/01/19 11:48 Dose: 1 applic Tramadol HCl (Ultram -) 50 mg PO Q8H PRN PRN Reason: PAIN LEVEL 6-10 Last Admin: 02/01/19 11:48 Dose: 50 mg - Objective Vital Signs: Vital Signs Temperature 98.5 F 02/01/19 13:49 Pulse Rate 91 H 02/01/19 13:49 Respiratory Rate 20 02/01/19 13:49 Blood Pressure 110/55 L 02/01/19 13:49 O2 Sat by Pulse Oximetry (%) 95 02/01/19 11:23 Elderly sick looking F looks edematous, not in distress HEENT: facial puffiness anemia, no external trauma NECK; No JVd No BrUit CHEST: Congested equal AE no wheezes ABD: Obese, non tender EXT: Edematous with multiple echymoses TEST BORE HELPER: 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 Labs: CBC, BMP 02/01/19 05:45 02/01/19 05:45 INR, PTT INR 1.69 (0.83-1.09) H 02/01/19 05:45 Fibrinogen 474.0 mg/dL (238-498) 01/23/19 07:03 C Diff Ag + Problem List - Problems (1) Symptomatic anemia Assessment/Plan: Hb 7.7 stable at base line on IV PPI Code(s): D64.9 - ANEMIA, UNSPECIFIED (2) Respiratory failure Assessment/Plan: Due to CHF exacerbation and sever anemia improving on Nebs and PO Lasix Code(s): J96.90 - RESPIRATORY FAILURE, UNSP, UNSP W HYPOXIA OR HYPERCAPNIA (3) CHF (NYHA class II, ACC/AHA stage C) Assessment/Plan: Cont current management F/U cardiology recommendation PO lasix 40mg daily Code(s): I50.9 - HEART FAILURE, UNSPECIFIED (4) CKD (chronic kidney disease) Assessment/Plan: Stable F/U BMP Code(s): N18.9 - CHRONIC KIDNEY DISEASE, UNSPECIFIED Qualifiers: Chronic kidney disease stage: stage 4 (severe) Qualified Code(s): N18.4 - Chronic kidney disease, stage 4 (severe) (5) Persistent atrial fibrillation Assessment/Plan: Will discuss with cardiology to start on Digoxine as not tolerating B Blockers or Diltizem due to BP INR 1.89 resume coumadin 2 F/U INR in am Code(s): I48.1 - PERSISTENT ATRIAL FIBRILLATION (6) COPD (chronic obstructive pulmonary disease) Assessment/Plan: ont Advair and Duoneb with ABX as per ID persistent infiltrates less likely pneumonia Code(s): J44.9 - CHRONIC OBSTRUCTIVE PULMONARY DISEASE, UNSPECIFIED Qualifiers: COPD type: unspecified COPD Qualified Code(s): J44.9 - Chronic obstructive pulmonary disease, unspecified (7) Thyromegaly Assessment/Plan: F/U Endo recommendation will F/U TSH Code(s): E01.0 - IODINE-DEFICIENCY RELATED DIFFUSE (ENDEMIC) GOITER (8) Malnutrition Assessment/Plan: Low albumin F/U Pre albumin and Nutrition consult Code(s): E46 - UNSPECIFIED PROTEIN-CALORIE MALNUTRITION Qualifiers: Malnutrition type: protein-calorie malnutrition (9) Pressure ulcer Assessment/Plan: Gibbons catheter and wound care. cont current abx Code(s): L89.90 - PRESSURE ULCER OF UNSPECIFIED SITE, UNSPECIFIED STAGE (10) UTI (urinary tract infection) Assessment/Plan: ESBL E colli on meropenem Code(s): N39.0 - URINARY TRACT INFECTION, SITE NOT SPECIFIED (11) Goals of care, counseling/discussion Assessment/Plan: discussed with the family will F/U Code(s): Z71.89 - OTHER SPECIFIED COUNSELING Assessment/Plan Patient remained hemodynamically better but over all weak and de-conditioned, no growth so far from triple Lumen trip or blood culture on IV meropenem for ESBL E Colli and Doxycycline renal functions are stable, INR therapeutic no gross Pulmonary congestion INR therapeutic, No Melena since an episode of black stool 3 days ago Plan: UTI with sepsis is im INR subtherapeutic cont Coumadin 2 mg Low grade fever TWBC 12 K ID recommended cont current abx will F/u clinical course. Discussed with family Goals of care and ADR
[2019-02-01] MEDS ORDERED: FUROSEMIDE 40 MG/4 ML INJECTABLE VIAL IVPUSH ONE (17:58)
[2019-02-01] MEDS ORDERED: AMINO ACIDS 4.25%/D5W 1,000 ML IV SCH (17:59)
[2019-02-01] MEDS ORDERED: FUROSEMIDE 40 MG/4 ML INJECTABLE VIAL ONE (18:11)
[2019-02-01] MEDS: WARFARIN NA 2 MG TABLET (UD) PO SCH (18:17)
[2019-02-02] MEDS: ALBUTEROL SO4 2.5/IPRATROPIUM 0.5 INH SOL 3 ML VIAL.NEB. NEB SCH ×6 (00:10→19:49)
[2019-02-02] MEDS ORDERED: MEROPENEM 1 GM VIAL (RESTRICTED TO ID) IVPB ONE ×2 (02:17→14:24)
[2019-02-02] MEDS ORDERED: DEXTROSE 5%-WATER 100 ML IVPB ONE ×2 (02:18→14:24)
[2019-02-02] MEDS: MEROPENEM 1 GM in DEXTROSE 5%-WATER 100 ML IVPB SCH ×2 (02:26→15:42)
[2019-02-02] MEDS: MORPHINE SULFATE 2 MG/ML VIAL IVPUSH PRN ×2 (05:10→11:12)
[2019-02-02] MEDS: GABAPENTIN 100 MG CAPSULE (FP) PO SCH ×3 (05:11→23:04)
[2019-02-02 07:47] LABS: BASO % 0.7 % (0-2.0); EOS % 0.1 % (0-4.5); HEMATOCRIT 23.5 % (32.4-45.2); HEMOGLOBIN 7.5 GM/dL (10.7-15.3); LYMPH % 18.1 % (8-40); MCH 29.9 pg (25.7-33.7); MEAN CELL VOLUME 93.3 fl (80-96); MEAN PLT VOLUME 8.6 fl (7.5-11.1); MONO % 4.5 % (3.8-10.2); NEUT % 76.6 % (42.8-82.8); PLATELET COUNT 322 K/MM3 (134-434); RBC 2.52 M/mm3 (3.60-5.2)
[2019-02-02 08:07] LABS: BLOOD UREA NITROGEN 40.4 mg/dL (7-18); CALCIUM 8.1 mg/dL (8.5-10.1); CREATININE 1.5 mg/dL (0.55-1.3); POTASSIUM 5.1 mmol/L (3.5-5.1)
[2019-02-02 08:15] LABS: WHITE BLOOD COUNT 15.6 K/mm3 (4.0-10.0)
[2019-02-02 08:31] LABS: INR 1.4 (0.83-1.09); PROTHROMBIN TIME (PATIENT) 16.6 SEC (9.7-13.0)
[2019-02-02] MEDS: traMADol HCL 50 MG TABLET PO PRN (10:51)
[2019-02-02] MEDS: SILVER SULFADIAZINE 1% TOP CREAM 400 GM JAR TP SCH ×2 (10:53→23:04)
[2019-02-02] MEDS: PANTOPRAZOLE SODIUM 40 MG VIAL IVPUSH SCH (10:53)
[2019-02-02] MEDS: FLUTICASONE/SALMETEROL 100 MCG/50 MCG DISKUS IH SCH ×2 (10:54→23:03)
[2019-02-02] MEDS: BACITRACIN 15 GM TUBE TOPICAL OINTMENT TP SCH (10:54)
[2019-02-02] MEDS: NYSTATIN POWDER 100,000 UNITS/GM - 15 GM TOPICAL POWDER TP SCH (10:55)
[2019-02-02] MEDS: TRIPLE LUMEN FLUSH 4 ML ML IVPUSH PRN (11:12)
--- NOTE | 2019-02-02 12:13 | PN ---
Progress Note, Physician History of Present Illness: still not feeling well looks stable - Current Medication List Current Medications: Active Medications Acetaminophen (Tylenol -) 650 mg PO QID PRN PRN Reason: PAIN 1-3 Last Admin: 01/31/19 22:54 Dose: 650 mg Albuterol/Ipratropium (Duoneb -) 1 amp NEB RQ4H [facility] Last Admin: 02/02/19 07:40 Dose: 1 amp Bacitracin (Bacitracin -) 1 applic TP DAILY [facility] Last Admin: 02/02/19 10:54 Dose: 1 applic Diltiazem HCl (Cardizem Cd -) 180 mg PO DAILY [facility] Last Admin: 02/02/19 10:53 Dose: Not Given Gabapentin (Neurontin -) 100 mg PO TID [facility] Last Admin: 02/02/19 05:11 Dose: 100 mg IV Flush (Triple Lumen Flush) 4 ml IVPUSH PRN PRN PRN Reason: Protocol Last Admin: 02/02/19 11:12 Dose: 4 ml Meropenem 1 gm/ Dextrose 100 mls @ 200 mls/hr IVPB Q12H [facility] Last Admin: 02/02/19 02:26 Dose: 200 mls/hr Metoprolol Succinate (Toprol Xl -) 50 mg PO HS [facility] Last Admin: 02/01/19 22:57 Dose: 50 mg Morphine Sulfate (Morphine Sulfate) 4 mg IVPUSH Q3H PRN PRN Reason: PAIN LEVEL 6-10 Last Admin: 02/02/19 11:12 Dose: 4 mg Nystatin (Nystop Powder -) 1 applic TP DAILY [facility] Last Admin: 02/02/19 10:55 Dose: 1 applic Ondansetron HCl (Zofran -) 4 mg PO TID PRN PRN Reason: NAUSEA Pantoprazole Sodium (Protonix Iv) 40 mg IVPUSH DAILY [facility] Last Admin: 02/02/19 10:53 Dose: 40 mg Fluticasone/Salmeterol (Advair 100mcg/50mcg -) 1 puff IH BID [facility] Last Admin: 02/02/19 10:54 Dose: 1 puff Silver Sulfadiazine (Silvadene -) 1 applic TP BID [facility] Last Admin: 02/02/19 10:53 Dose: 1 applic Tramadol HCl (Ultram -) 50 mg PO Q8H PRN PRN Reason: PAIN LEVEL 6-10 Warfarin Sodium (Coumadin -) 2 mg PO DAILY@1800 [facility] Last Admin: 02/01/19 18:17 Dose: 2 mg - Objective Vital Signs: Vital Signs Temperature 98.1 F 02/02/19 10:50 Pulse Rate 93 H 02/02/19 10:50 Respiratory Rate 22 H 02/02/19 10:50 Blood Pressure 90/60 02/02/19 10:50 O2 Sat by Pulse Oximetry (%) 97 02/02/19 08:37 Constitutional: Yes: Calm, Mild Distress Cardiovascular: Yes: S1, S2 Respiratory: Yes: Regular, On Nasal O2, Poor Air Entry, Other (hooarsness of voice) Gastrointestinal: Yes: Normal Bowel Sounds, Soft ...Rectal Exam: Yes: Other (rectal tube) Musculoskeletal: Yes: WNL Extremities: Yes: Other Neurological: Yes: Alert, Oriented Psychiatric: Yes: Alert, Oriented Labs: CBC, BMP 02/02/19 06:30 02/02/19 06:30 INR, PTT INR 1.40 (0.83-1.09) H 02/02/19 06:30 Fibrinogen 474.0 mg/dL (238-498) 01/23/19 07:03 Assessment/Plan Problem List - Problems (1) Respiratory failure Code(s): J96.90 - RESPIRATORY FAILURE, UNSP, UNSP W HYPOXIA OR HYPERCAPNIA (2) SOB (shortness of breath) Code(s): R06.02 - SHORTNESS OF BREATH (3) Symptomatic anemia Code(s): D64.9 - ANEMIA, UNSPECIFIED (4) Acute on chronic renal failure Code(s): N17.9 - ACUTE KIDNEY FAILURE, UNSPECIFIED; N18.9 - CHRONIC KIDNEY DISEASE, UNSPECIFIED (5) Afib Code(s): I48.91 - UNSPECIFIED ATRIAL FIBRILLATION Qualifiers: Atrial fibrillation type: chronic Qualified Code(s): I48.2 - Chronic atrial fibrillation (6) CHF (NYHA class II, ACC/AHA stage C) Code(s): I50.9 - HEART FAILURE, UNSPECIFIED (7) CKD (chronic kidney disease) Code(s): N18.9 - CHRONIC KIDNEY DISEASE, UNSPECIFIED Qualifiers: Chronic kidney disease stage: stage 4 (severe) Qualified Code(s): N18.4 - Chronic kidney disease, stage 4 (severe) (8) COPD (chronic obstructive pulmonary disease) Code(s): J44.9 - CHRONIC OBSTRUCTIVE PULMONARY DISEASE, UNSPECIFIED Qualifiers: COPD type: unspecified COPD Qualified Code(s): J44.9 - Chronic obstructive pulmonary disease, unspecified (9) Hypercholesteremia Code(s): E78.00 - PURE HYPERCHOLESTEROLEMIA, UNSPECIFIED (10) Hypertension Code(s): I10 - ESSENTIAL (PRIMARY) HYPERTENSION (11) Hyperthyroidism Code(s): E05.90 - THYROTOXICOSIS, UNSP WITHOUT THYROTOXIC CRISIS OR STORM (12) Obese Code(s): E66.9 - OBESITY, UNSPECIFIED (13) Sacral decubitus ulcer, stage II Code(s): L89.152 - PRESSURE ULCER OF SACRAL REGION, STAGE 2 (14) Thyromegaly Code(s): E01.0 - IODINE-DEFICIENCY RELATED DIFFUSE (ENDEMIC) GOITER (15) Tracheal compression Code(s): J39.8 - OTHER SPECIFIED DISEASES OF UPPER RESPIRATORY TRACT (16) UTI (urinary tract infection) Code(s): N39.0 - URINARY TRACT INFECTION, SITE NOT SPECIFIED Qualifiers: Urinary tract infection type: site unspecified Hematuria presence: without hematuria Qualified Code(s): N39.0 - Urinary tract infection, site not specified 17 gi bleed Assessment/Plan 88 y.o. female with PMH of COPD on home O2, CHF, ASHD, HTN, HLD, CKD, diverticultis/ ? ischemic colitis s/p partial colectomy, s/p JW/BSO, chronic cough/persistent pulmonary infiltrates, multinodular goiter with partial tracheal compression, and anemia presents with c/o worsening SOB over the past week with subjective fever/chills. Fever Gram positive bacteremia UTI Acute hypoxic respiratory failure Possible HCAP Groin rash/excoriations Pancytopenia - ? due to Methimazole Multinodular goiter with partial tracheal compression COPD Hx of CKD AFIB CHF ASHD HTN HLD gi bleed plan continue current mgmt abx complete the course nutrition wound care avoid pressure patients wbc has started to increase,close watch
--- NOTE | 2019-02-02 13:04 | PN ---
Progress Note (short form) - Note Progress Note: Please to rec referred to recent consult. 88 year old -[place] female was readmitted with progressive shortness of breath requiring high flow oxygen , also found to have severe anemia with pancytopenia which was attributed to the use of methimazole. Patient has decubiti ulcers, was found to be was found to be to be septic with a urinary tract infection. She has had progressive pedal edema and clinically has congestive heart. Has had progressive deterioration of her clinical status. Clinically she has had stridor and probable tracheal compression. She has thyromegaly extending to the upper mediastinum. Found to be lethargic and have difficulty in explaining her overall condition. Patient is febrile. Active Medications Acetaminophen (Tylenol -) 650 mg PO QID PRN PRN Reason: PAIN 1-3 Last Admin: 01/31/19 22:54 Dose: 650 mg Albuterol/Ipratropium (Duoneb -) 1 amp NEB RQ4H [facility] Last Admin: 02/02/19 11:25 Dose: 1 amp Bacitracin (Bacitracin -) 1 applic TP DAILY [facility] Last Admin: 02/02/19 10:54 Dose: 1 applic Diltiazem HCl (Cardizem Cd -) 180 mg PO DAILY [facility] Last Admin: 02/02/19 10:53 Dose: Not Given Gabapentin (Neurontin -) 100 mg PO TID [facility] Last Admin: 02/02/19 05:11 Dose: 100 mg IV Flush (Triple Lumen Flush) 4 ml IVPUSH PRN PRN PRN Reason: Protocol Last Admin: 02/02/19 11:12 Dose: 4 ml Meropenem 1 gm/ Dextrose 100 mls @ 200 mls/hr IVPB Q12H [facility] Last Admin: 02/02/19 02:26 Dose: 200 mls/hr Metoprolol Succinate (Toprol Xl -) 50 mg PO HS [facility] Last Admin: 02/01/19 22:57 Dose: 50 mg Morphine Sulfate (Morphine Sulfate) 4 mg IVPUSH Q3H PRN PRN Reason: PAIN LEVEL 6-10 Last Admin: 02/02/19 11:12 Dose: 4 mg Nystatin (Nystop Powder -) 1 applic TP DAILY [facility] Last Admin: 02/02/19 10:55 Dose: 1 applic Ondansetron HCl (Zofran -) 4 mg PO TID PRN PRN Reason: NAUSEA Pantoprazole Sodium (Protonix Iv) 40 mg IVPUSH DAILY [facility] Last Admin: 02/02/19 10:53 Dose: 40 mg Fluticasone/Salmeterol (Advair 100mcg/50mcg -) 1 puff IH BID [facility] Last Admin: 02/02/19 10:54 Dose: 1 puff Silver Sulfadiazine (Silvadene -) 1 applic TP BID [facility] Last Admin: 02/02/19 10:53 Dose: 1 applic Tramadol HCl (Ultram -) 50 mg PO Q8H PRN PRN Reason: PAIN LEVEL 6-10 Warfarin Sodium (Coumadin -) 2 mg PO DAILY@1800 [facility] Last Admin: 02/01/19 18:17 Dose: 2 mg Last Vital Signs Temp Pulse Resp BP Pulse Ox 98.1 F 93 H 22 H 90/60 97 02/02/19 10:50 02/02/19 10:50 02/02/19 10:50 02/02/19 10:50 02/02/19 08:37 NECK: Supple, positive hepatojugular reflux, carotids were 2+. No bruits were appreciated. HEART: PMI was not localized. Heart sounds were distant, partially obscured by coarse breath sounds. No murmur or gallops were heard. LUNGS: bilateral scattered expiratory wheezing. Unable to appreciate crepitations. ABDOMEN; soft, protuberant and nontender. No hepatosplenomegaly or palpable masses were appreciated. EXTREMITIES: 3+ bilateral pretibial and pedal edema. No calf tenderness was elicited. Dorsalis pedis and posterior tibial pulses could not be palpated. CBC, BMP 02/02/19 06:30 02/02/19 06:30 Impression: 1. Progressive respiratory failure: a). 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 2. Recent urinary tract infection, 3. Coronary artery disease, angina pectoris, presently stable. 4. 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 5. Multinodular goiter/thyromegaly. 6. History of thyrotoxicosis. 7. Severe anemia. 8. Chronic kidney disease. 9. Pedal edema, etiology Recommendations: 1. IV Lasix and if necessary add Zaroxolyn 2.5 mg, half an hour before Lasix under close observation of electrolytes. 2. obtain copy of the latest echocardiogram. 3. Follow-up BMP and CBC. Prognosis: Critical. Micky Hawkins MD.
[2019-02-02 13:46] LABS: ANISOCYTOSIS 1+; MACROCYTOSIS 1+; OVALOCYTE 1+; PLATELET ESTIMATE NORMAL
--- NOTE | 2019-02-02 14:45 | PN ---
Progress Note, Physician History of Present Illness: PULMONARY SLEEPY,WEAK,-RESP DISTRESS ON NASAL CANNULA - Current Medication List Current Medications: Active Medications Acetaminophen (Tylenol -) 650 mg PO QID PRN PRN Reason: PAIN 1-3 Last Admin: 01/31/19 22:54 Dose: 650 mg Albuterol/Ipratropium (Duoneb -) 1 amp NEB RQ4H [facility] Last Admin: 02/02/19 11:25 Dose: 1 amp Bacitracin (Bacitracin -) 1 applic TP DAILY [facility] Last Admin: 02/02/19 10:54 Dose: 1 applic Diltiazem HCl (Cardizem Cd -) 180 mg PO DAILY [facility] Last Admin: 02/02/19 10:53 Dose: Not Given Gabapentin (Neurontin -) 100 mg PO TID [facility] Last Admin: 02/02/19 05:11 Dose: 100 mg IV Flush (Triple Lumen Flush) 4 ml IVPUSH PRN PRN PRN Reason: Protocol Last Admin: 02/02/19 11:12 Dose: 4 ml Meropenem 1 gm/ Dextrose 100 mls @ 200 mls/hr IVPB Q12H [facility] Last Admin: 02/02/19 02:26 Dose: 200 mls/hr Metoprolol Succinate (Toprol Xl -) 50 mg PO HS [facility] Last Admin: 02/01/19 22:57 Dose: 50 mg Morphine Sulfate (Morphine Sulfate) 4 mg IVPUSH Q3H PRN PRN Reason: PAIN LEVEL 6-10 Last Admin: 02/02/19 11:12 Dose: 4 mg Nystatin (Nystop Powder -) 1 applic TP DAILY [facility] Last Admin: 02/02/19 10:55 Dose: 1 applic Ondansetron HCl (Zofran -) 4 mg PO TID PRN PRN Reason: NAUSEA Pantoprazole Sodium (Protonix Iv) 40 mg IVPUSH DAILY [facility] Last Admin: 02/02/19 10:53 Dose: 40 mg Fluticasone/Salmeterol (Advair 100mcg/50mcg -) 1 puff IH BID [facility] Last Admin: 02/02/19 10:54 Dose: 1 puff Silver Sulfadiazine (Silvadene -) 1 applic TP BID [facility] Last Admin: 02/02/19 10:53 Dose: 1 applic Tramadol HCl (Ultram -) 50 mg PO Q8H PRN PRN Reason: PAIN LEVEL 6-10 Warfarin Sodium (Coumadin -) 2 mg PO DAILY@1800 [facility] Last Admin: 02/01/19 18:17 Dose: 2 mg - Objective Vital Signs: Vital Signs Temperature 99.7 F H 02/02/19 14:20 Pulse Rate 105 H 02/02/19 14:20 Respiratory Rate 20 02/02/19 14:20 Blood Pressure 96/53 L 02/02/19 14:20 O2 Sat by Pulse Oximetry (%) 97 02/02/19 08:37 Constitutional: Yes: Well Nourished, Calm, Obese, Other (SLEEPY) Eyes: Yes: WNL HENT: Yes: WNL Neck: Yes: WNL Cardiovascular: Yes: Pulse Irregular, S1, S2 Respiratory: Yes: Diminished Gastrointestinal: Yes: Normal Bowel Sounds, Soft Extremities: Yes: WNL Edema: Yes Labs: CBC, BMP 02/02/19 06:30 02/02/19 06:30 INR, PTT INR 1.40 (0.83-1.09) H 02/02/19 06:30 Fibrinogen 474.0 mg/dL (238-498) 01/23/19 07:03 Problem List - Problems (1) Anemia Code(s): D64.9 - ANEMIA, UNSPECIFIED Qualifiers: Anemia type: unspecified type Qualified Code(s): D64.9 - Anemia, unspecified (2) SOB (shortness of breath) Code(s): R06.02 - SHORTNESS OF BREATH (3) Toxic diffuse goiter Code(s): E05.00 - THYROTOXICOSIS W DIFFUSE GOITER W/O THYROTOXIC CRISIS (4) Afib Code(s): I48.91 - UNSPECIFIED ATRIAL FIBRILLATION Qualifiers: Atrial fibrillation type: chronic Qualified Code(s): I48.2 - Chronic atrial fibrillation (5) CHF (NYHA class II, ACC/AHA stage C) Code(s): I50.9 - HEART FAILURE, UNSPECIFIED (6) COPD (chronic obstructive pulmonary disease) Code(s): J44.9 - CHRONIC OBSTRUCTIVE PULMONARY DISEASE, UNSPECIFIED Qualifiers: COPD type: unspecified COPD Qualified Code(s): J44.9 - Chronic obstructive pulmonary disease, unspecified (7) Persistent atrial fibrillation Code(s): I48.1 - PERSISTENT ATRIAL FIBRILLATION (8) Respiratory distress, acute Code(s): R06.03 - ACUTE RESPIRATORY DISTRESS (9) Pancytopenia Code(s): D61.818 - OTHER PANCYTOPENIA (10) Respiratory failure Code(s): J96.90 - RESPIRATORY FAILURE, UNSP, UNSP W HYPOXIA OR HYPERCAPNIA (11) Sepsis Code(s): A41.9 - SEPSIS, UNSPECIFIED ORGANISM Qualifiers: Sepsis type: sepsis due to unspecified organism Qualified Code(s): A41.9 - Sepsis, unspecified organism (12) Tracheal compression Code(s): J39.8 - OTHER SPECIFIED DISEASES OF UPPER RESPIRATORY TRACT (13) Acute on chronic respiratory failure with hypoxemia Code(s): J96.21 - ACUTE AND CHRONIC RESPIRATORY FAILURE WITH HYPOXIA Assessment/Plan ASSESSMENT AND PLAN: Acute on Chronic Hypoxic Respiratory Failure UTI Sacral Decubitus Infection Gram Positive Bacteremia Sepsis COPD Atrial Fibrillation LV Systolic/Diastolic Dysfunction CKD Pancytopenia Anemia requiring PRBC transfusions Goiter with Tracheal compression - continue antibiotics per ID - Local wound care per surgery - monitor CBC - O2 to keep Spo2 >90% - NIPPV needed to assist in work of breathing - inhaled bronchodilators - rate control - DR GOMEZ
[2019-02-02] MEDS ORDERED: FUROSEMIDE 40 MG/4 ML INJECTABLE VIAL IVPUSH ONE (14:59)
--- NOTE | 2019-02-02 15:00 | PN ---
Progress Note, Physician Chief Complaint: looks tired and exhausted c/o body pain - Current Medication List Current Medications: Active Medications Acetaminophen (Tylenol -) 650 mg PO QID PRN PRN Reason: PAIN 1-3 Last Admin: 01/31/19 22:54 Dose: 650 mg Albuterol/Ipratropium (Duoneb -) 1 amp NEB RQ4H [facility] Last Admin: 02/02/19 11:25 Dose: 1 amp Bacitracin (Bacitracin -) 1 applic TP DAILY [facility] Last Admin: 02/02/19 10:54 Dose: 1 applic Diltiazem HCl (Cardizem Cd -) 180 mg PO DAILY [facility] Last Admin: 02/02/19 10:53 Dose: Not Given Gabapentin (Neurontin -) 100 mg PO TID [facility] Last Admin: 02/02/19 05:11 Dose: 100 mg IV Flush (Triple Lumen Flush) 4 ml IVPUSH PRN PRN PRN Reason: Protocol Last Admin: 02/02/19 11:12 Dose: 4 ml Meropenem 1 gm/ Dextrose 100 mls @ 200 mls/hr IVPB Q12H [facility] Last Admin: 02/02/19 02:26 Dose: 200 mls/hr Metoprolol Succinate (Toprol Xl -) 50 mg PO HS [facility] Last Admin: 02/01/19 22:57 Dose: 50 mg Morphine Sulfate (Morphine Sulfate) 4 mg IVPUSH Q3H PRN PRN Reason: PAIN LEVEL 6-10 Last Admin: 02/02/19 11:12 Dose: 4 mg Nystatin (Nystop Powder -) 1 applic TP DAILY [facility] Last Admin: 02/02/19 10:55 Dose: 1 applic Ondansetron HCl (Zofran -) 4 mg PO TID PRN PRN Reason: NAUSEA Pantoprazole Sodium (Protonix Iv) 40 mg IVPUSH DAILY [facility] Last Admin: 02/02/19 10:53 Dose: 40 mg Fluticasone/Salmeterol (Advair 100mcg/50mcg -) 1 puff IH BID [facility] Last Admin: 02/02/19 10:54 Dose: 1 puff Silver Sulfadiazine (Silvadene -) 1 applic TP BID [facility] Last Admin: 02/02/19 10:53 Dose: 1 applic Tramadol HCl (Ultram -) 50 mg PO Q8H PRN PRN Reason: PAIN LEVEL 6-10 Warfarin Sodium (Coumadin -) 2 mg PO DAILY@1800 [facility] Last Admin: 02/01/19 18:17 Dose: 2 mg - Objective Vital Signs: Vital Signs Temperature 99.7 F H 02/02/19 14:20 Pulse Rate 105 H 02/02/19 14:20 Respiratory Rate 20 02/02/19 14:20 Blood Pressure 96/53 L 02/02/19 14:20 O2 Sat by Pulse Oximetry (%) 97 02/02/19 08:37 Labs: CBC, BMP 02/02/19 06:30 02/02/19 06:30 INR, PTT INR 1.40 (0.83-1.09) H 02/02/19 06:30 Fibrinogen 474.0 mg/dL (238-498) 01/23/19 07:03 Problem List - Problems (1) Symptomatic anemia Code(s): D64.9 - ANEMIA, UNSPECIFIED (2) Respiratory failure Code(s): J96.90 - RESPIRATORY FAILURE, UNSP, UNSP W HYPOXIA OR HYPERCAPNIA (3) CHF (NYHA class II, ACC/AHA stage C) Code(s): I50.9 - HEART FAILURE, UNSPECIFIED (4) CKD (chronic kidney disease) Code(s): N18.9 - CHRONIC KIDNEY DISEASE, UNSPECIFIED Qualifiers: Chronic kidney disease stage: stage 4 (severe) Qualified Code(s): N18.4 - Chronic kidney disease, stage 4 (severe) (5) Persistent atrial fibrillation Code(s): I48.1 - PERSISTENT ATRIAL FIBRILLATION (6) COPD (chronic obstructive pulmonary disease) Code(s): J44.9 - CHRONIC OBSTRUCTIVE PULMONARY DISEASE, UNSPECIFIED Qualifiers: COPD type: unspecified COPD Qualified Code(s): J44.9 - Chronic obstructive pulmonary disease, unspecified (7) Thyromegaly Code(s): E01.0 - IODINE-DEFICIENCY RELATED DIFFUSE (ENDEMIC) GOITER (8) Malnutrition Code(s): E46 - UNSPECIFIED PROTEIN-CALORIE MALNUTRITION Qualifiers: Malnutrition type: protein-calorie malnutrition (9) Pressure ulcer Code(s): L89.90 - PRESSURE ULCER OF UNSPECIFIED SITE, UNSPECIFIED STAGE (10) UTI (urinary tract infection) Code(s): N39.0 - URINARY TRACT INFECTION, SITE NOT SPECIFIED (11) Goals of care, counseling/discussion Code(s): Z71.89 - OTHER SPECIFIED COUNSELING
[2019-02-02] MEDS: WARFARIN NA 2 MG TABLET (UD) PO SCH (17:34)
[2019-02-02] MEDS: ACETAMINOPHEN 325 MG TABLET (FP) PO PRN (23:01)
[2019-02-03] MEDS: ALBUTEROL SO4 2.5/IPRATROPIUM 0.5 INH SOL 3 ML VIAL.NEB. NEB SCH ×7 (00:31→23:40)
[2019-02-03] MEDS ORDERED: DEXTROSE 5%-WATER 100 ML IVPB ONE ×2 (02:28→14:01)
[2019-02-03] MEDS ORDERED: MEROPENEM 1 GM VIAL (RESTRICTED TO ID) IVPB ONE ×2 (02:28→14:01)
[2019-02-03] MEDS: MEROPENEM 1 GM in DEXTROSE 5%-WATER 100 ML IVPB SCH ×2 (02:33→14:50)
[2019-02-03] MEDS: MORPHINE SULFATE 2 MG/ML VIAL IVPUSH PRN ×2 (04:15→10:13)
[2019-02-03] MEDS: GABAPENTIN 100 MG CAPSULE (FP) PO SCH ×3 (06:22→22:45)
[2019-02-03] MEDS: TRIPLE LUMEN FLUSH 4 ML ML IVPUSH PRN (06:31)
[2019-02-03 07:29] LABS: BASO % 0.7 % (0-2.0); EOS % 0.4 % (0-4.5); HEMATOCRIT 23.4 % (32.4-45.2); HEMOGLOBIN 7.5 GM/dL (10.7-15.3); LYMPH % 14.7 % (8-40); MCHC 32.2 g/dl (32.0-36.0); MEAN CELL VOLUME 93.3 fl (80-96); MEAN PLT VOLUME 8.5 fl (7.5-11.1); MONO % 6.3 % (3.8-10.2); NEUT % 77.9 % (42.8-82.8); PLATELET COUNT 347 K/MM3 (134-434); RBC 2.51 M/mm3 (3.60-5.2); RDW 20.9 % (11.6-15.6); WHITE BLOOD COUNT 16.1 K/mm3 (4.0-10.0)
[2019-02-03 07:49] LABS: BLOOD UREA NITROGEN 44.1 mg/dL (7-18); CALCIUM 8.6 mg/dL (8.5-10.1); CREATININE 1.6 mg/dL (0.55-1.3); POTASSIUM 4.9 mmol/L (3.5-5.1)
[2019-02-03 08:26] LABS: INR 1.49 (0.83-1.09); PROTHROMBIN TIME (PATIENT) 17.6 SEC (9.7-13.0)
--- NOTE | 2019-02-03 09:10 | PN ---
Progress Note, Physician History of Present Illness: looks better feels better - Current Medication List Current Medications: Active Medications Acetaminophen (Tylenol -) 650 mg PO QID PRN PRN Reason: PAIN 1-3 Last Admin: 02/02/19 23:01 Dose: 650 mg Albuterol/Ipratropium (Duoneb -) 1 amp NEB RQ4H [facility] Last Admin: 02/03/19 07:35 Dose: 1 amp Bacitracin (Bacitracin -) 1 applic TP DAILY [facility] Last Admin: 02/02/19 10:54 Dose: 1 applic Diltiazem HCl (Cardizem Cd -) 180 mg PO DAILY [facility] Last Admin: 02/02/19 10:53 Dose: Not Given Gabapentin (Neurontin -) 100 mg PO TID [facility] Last Admin: 02/03/19 06:22 Dose: 100 mg IV Flush (Triple Lumen Flush) 4 ml IVPUSH PRN PRN PRN Reason: Protocol Last Admin: 02/03/19 06:31 Dose: 4 ml Meropenem 1 gm/ Dextrose 100 mls @ 200 mls/hr IVPB Q12H [facility] Last Admin: 02/03/19 02:33 Dose: 200 mls/hr Metoprolol Succinate (Toprol Xl -) 50 mg PO HS [facility] Last Admin: 02/02/19 23:04 Dose: Not Given Morphine Sulfate (Morphine Sulfate) 4 mg IVPUSH Q3H PRN PRN Reason: PAIN LEVEL 6-10 Last Admin: 02/03/19 04:15 Dose: 4 mg Nystatin (Nystop Powder -) 1 applic TP DAILY [facility] Last Admin: 02/02/19 10:55 Dose: 1 applic Ondansetron HCl (Zofran -) 4 mg PO TID PRN PRN Reason: NAUSEA Pantoprazole Sodium (Protonix Iv) 40 mg IVPUSH DAILY [facility] Last Admin: 02/02/19 10:53 Dose: 40 mg Fluticasone/Salmeterol (Advair 100mcg/50mcg -) 1 puff IH BID [facility] Last Admin: 02/02/19 23:03 Dose: 1 puff Silver Sulfadiazine (Silvadene -) 1 applic TP BID [facility] Last Admin: 02/02/19 23:04 Dose: 1 applic Tramadol HCl (Ultram -) 50 mg PO Q8H PRN PRN Reason: PAIN LEVEL 6-10 Warfarin Sodium (Coumadin -) 2 mg PO DAILY@1800 [facility] Last Admin: 02/02/19 17:34 Dose: 2 mg - Objective Vital Signs: Vital Signs Temperature 98.3 F 02/03/19 06:06 Pulse Rate 107 H 02/03/19 06:06 Respiratory Rate 22 H 02/03/19 06:06 Blood Pressure 99/43 L 02/03/19 06:06 O2 Sat by Pulse Oximetry (%) 92 L 02/03/19 07:34 Constitutional: Yes: No Distress, Calm Cardiovascular: Yes: S1, S2 Respiratory: Yes: Regular, On Nasal O2, Poor Air Entry Gastrointestinal: Yes: Normal Bowel Sounds, Soft Musculoskeletal: Yes: WNL Extremities: Yes: Other Edema: LLE: 1+, RLE: 1+ Neurological: Yes: Alert, Oriented Psychiatric: Yes: Alert, Oriented Labs: CBC, BMP 02/03/19 06:50 02/03/19 06:50 INR, PTT INR 1.49 (0.83-1.09) H 02/03/19 06:50 Fibrinogen 474.0 mg/dL (238-498) 01/23/19 07:03 Assessment/Plan Problem List - Problems (1) Respiratory failure Code(s): J96.90 - RESPIRATORY FAILURE, UNSP, UNSP W HYPOXIA OR HYPERCAPNIA (2) SOB (shortness of breath) Code(s): R06.02 - SHORTNESS OF BREATH (3) Symptomatic anemia Code(s): D64.9 - ANEMIA, UNSPECIFIED (4) Acute on chronic renal failure Code(s): N17.9 - ACUTE KIDNEY FAILURE, UNSPECIFIED; N18.9 - CHRONIC KIDNEY DISEASE, UNSPECIFIED (5) Afib Code(s): I48.91 - UNSPECIFIED ATRIAL FIBRILLATION Qualifiers: Atrial fibrillation type: chronic Qualified Code(s): I48.2 - Chronic atrial fibrillation (6) CHF (NYHA class II, ACC/AHA stage C) Code(s): I50.9 - HEART FAILURE, UNSPECIFIED (7) CKD (chronic kidney disease) Code(s): N18.9 - CHRONIC KIDNEY DISEASE, UNSPECIFIED Qualifiers: Chronic kidney disease stage: stage 4 (severe) Qualified Code(s): N18.4 - Chronic kidney disease, stage 4 (severe) (8) COPD (chronic obstructive pulmonary disease) Code(s): J44.9 - CHRONIC OBSTRUCTIVE PULMONARY DISEASE, UNSPECIFIED Qualifiers: COPD type: unspecified COPD Qualified Code(s): J44.9 - Chronic obstructive pulmonary disease, unspecified (9) Hypercholesteremia Code(s): E78.00 - PURE HYPERCHOLESTEROLEMIA, UNSPECIFIED (10) Hypertension Code(s): I10 - ESSENTIAL (PRIMARY) HYPERTENSION (11) Hyperthyroidism Code(s): E05.90 - THYROTOXICOSIS, UNSP WITHOUT THYROTOXIC CRISIS OR STORM (12) Obese Code(s): E66.9 - OBESITY, UNSPECIFIED (13) Sacral decubitus ulcer, stage II Code(s): L89.152 - PRESSURE ULCER OF SACRAL REGION, STAGE 2 (14) Thyromegaly Code(s): E01.0 - IODINE-DEFICIENCY RELATED DIFFUSE (ENDEMIC) GOITER (15) Tracheal compression Code(s): J39.8 - OTHER SPECIFIED DISEASES OF UPPER RESPIRATORY TRACT (16) UTI (urinary tract infection) Code(s): N39.0 - URINARY TRACT INFECTION, SITE NOT SPECIFIED Qualifiers: Urinary tract infection type: site unspecified Hematuria presence: without hematuria Qualified Code(s): N39.0 - Urinary tract infection, site not specified 17 gi bleed Assessment/Plan 88 y.o. female with PMH of COPD on home O2, CHF, ASHD, HTN, HLD, CKD, diverticultis/ ? ischemic colitis s/p partial colectomy, s/p JW/BSO, chronic cough/persistent pulmonary infiltrates, multinodular goiter with partial tracheal compression, and anemia presents with c/o worsening SOB over the past week with subjective fever/chills. Fever Gram positive bacteremia UTI Acute hypoxic respiratory failure Possible HCAP Groin rash/excoriations Pancytopenia - ? due to Methimazole Multinodular goiter with partial tracheal compression COPD Hx of CKD AFIB CHF ASHD HTN HLD gi bleed plan continue current mgmt wbc still increasing consider changing the line wound care rest as per the team i am going to add flagyl orally
[2019-02-03] MEDS: PANTOPRAZOLE SODIUM 40 MG VIAL IVPUSH SCH (10:49)
[2019-02-03] MEDS: BACITRACIN 15 GM TUBE TOPICAL OINTMENT TP SCH (10:52)
[2019-02-03] MEDS: NYSTATIN POWDER 100,000 UNITS/GM - 15 GM TOPICAL POWDER TP SCH (10:55)
[2019-02-03] MEDS: FLUTICASONE/SALMETEROL 100 MCG/50 MCG DISKUS IH SCH ×2 (10:55→22:45)
[2019-02-03] MEDS: SILVER SULFADIAZINE 1% TOP CREAM 400 GM JAR TP SCH ×2 (10:55→22:46)
[2019-02-03] MEDS ORDERED: FUROSEMIDE 40 MG/4 ML INJECTABLE VIAL IVPUSH ONE (12:15)
--- NOTE | 2019-02-03 12:21 | PN ---
Progress Note, Physician Chief Complaint: No new complaints feels tired and exhausted - Current Medication List Current Medications: Active Medications Acetaminophen (Tylenol -) 650 mg PO QID PRN PRN Reason: PAIN 1-3 Last Admin: 02/02/19 23:01 Dose: 650 mg Albuterol/Ipratropium (Duoneb -) 1 amp NEB RQ4H [facility] Last Admin: 02/03/19 11:23 Dose: 1 amp Bacitracin (Bacitracin -) 1 applic TP DAILY [facility] Last Admin: 02/03/19 10:52 Dose: 1 applic Collagenase (Santyl -) 1 applic TP DAILY [facility]; Protocol Diltiazem HCl (Cardizem Cd -) 180 mg PO DAILY [facility] Last Admin: 02/03/19 10:55 Dose: 180 mg Furosemide (Lasix Injection -) 40 mg IVPUSH ONCE ONE Stop: 02/03/19 12:16 Gabapentin (Neurontin -) 100 mg PO TID [facility] Last Admin: 02/03/19 06:22 Dose: 100 mg IV Flush (Triple Lumen Flush) 4 ml IVPUSH PRN PRN PRN Reason: Protocol Last Admin: 02/03/19 06:31 Dose: 4 ml Meropenem 1 gm/ Dextrose 100 mls @ 200 mls/hr IVPB Q12H [facility] Last Admin: 02/03/19 02:33 Dose: 200 mls/hr Metolazone (Zaroxolyn -) 2.5 mg PO ONCE ONE Stop: 02/03/19 12:16 Metoprolol Succinate (Toprol Xl -) 50 mg PO HS [facility] Last Admin: 02/02/19 23:04 Dose: Not Given Morphine Sulfate (Morphine Sulfate) 4 mg IVPUSH Q3H PRN PRN Reason: PAIN LEVEL 6-10 Last Admin: 02/03/19 10:13 Dose: 4 mg Nystatin (Nystop Powder -) 1 applic TP DAILY [facility] Last Admin: 02/03/19 10:55 Dose: 1 applic Ondansetron HCl (Zofran -) 4 mg PO TID PRN PRN Reason: NAUSEA Pantoprazole Sodium (Protonix Iv) 40 mg IVPUSH DAILY [facility] Last Admin: 02/03/19 10:49 Dose: 40 mg Fluticasone/Salmeterol (Advair 100mcg/50mcg -) 1 puff IH BID [facility] Last Admin: 02/03/19 10:55 Dose: 1 puff Silver Sulfadiazine (Silvadene -) 1 applic TP BID [facility] Last Admin: 02/03/19 10:55 Dose: 1 applic Tramadol HCl (Ultram -) 50 mg PO Q8H PRN PRN Reason: PAIN LEVEL 6-10 Warfarin Sodium (Coumadin -) 2 mg PO DAILY@1800 [facility] Last Admin: 02/02/19 17:34 Dose: 2 mg - Objective Vital Signs: Vital Signs Temperature 98.3 F 02/03/19 06:06 Pulse Rate 107 H 02/03/19 06:06 Respiratory Rate 22 H 02/03/19 06:06 Blood Pressure 99/43 L 02/03/19 06:06 O2 Sat by Pulse Oximetry (%) 92 L 02/03/19 07:34 Elderly sick looking F looks edematous, not in distress HEENT: facial puffiness anemia, no external trauma NECK; No JVd No BrUit CHEST: Congested equal AE no wheezes ABD: Obese, non tender EXT: Edematous with multiple echymoses HEAD SCORER: 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 Labs: CBC, BMP 02/03/19 06:50 02/03/19 06:50 INR, PTT INR 1.49 (0.83-1.09) H 02/03/19 06:50 Fibrinogen 474.0 mg/dL (238-498) 01/23/19 07:03 Problem List - Problems (1) Symptomatic anemia Code(s): D64.9 - ANEMIA, UNSPECIFIED (2) Respiratory failure Code(s): J96.90 - RESPIRATORY FAILURE, UNSP, UNSP W HYPOXIA OR HYPERCAPNIA (3) CHF (NYHA class II, ACC/AHA stage C) Code(s): I50.9 - HEART FAILURE, UNSPECIFIED (4) CKD (chronic kidney disease) Code(s): N18.9 - CHRONIC KIDNEY DISEASE, UNSPECIFIED Qualifiers: Chronic kidney disease stage: stage 4 (severe) Qualified Code(s): N18.4 - Chronic kidney disease, stage 4 (severe) (5) Persistent atrial fibrillation Code(s): I48.1 - PERSISTENT ATRIAL FIBRILLATION (6) COPD (chronic obstructive pulmonary disease) Code(s): J44.9 - CHRONIC OBSTRUCTIVE PULMONARY DISEASE, UNSPECIFIED Qualifiers: COPD type: unspecified COPD Qualified Code(s): J44.9 - Chronic obstructive pulmonary disease, unspecified (7) Thyromegaly Code(s): E01.0 - IODINE-DEFICIENCY RELATED DIFFUSE (ENDEMIC) GOITER (8) Malnutrition Code(s): E46 - UNSPECIFIED PROTEIN-CALORIE MALNUTRITION Qualifiers: Malnutrition type: protein-calorie malnutrition (9) Pressure ulcer Code(s): L89.90 - PRESSURE ULCER OF UNSPECIFIED SITE, UNSPECIFIED STAGE (10) UTI (urinary tract infection) Code(s): N39.0 - URINARY TRACT INFECTION, SITE NOT SPECIFIED (11) Goals of care, counseling/discussion Code(s): Z71.89 - OTHER SPECIFIED COUNSELING Assessment/Plan Patient remained hemodynamically stable but over all weak and de-conditioned, n Plan: UTI with sepsis on Meropenema a3 moreday wo;; DC INR subtherapeutic cont Coumadin 2 mg Low grade 16 stool C Diff ag + ID recommended PO Vancomycin Discussed with family Goals of care and ADR Anasarca IV lasix 40 IVSS with Zaroxolyn 2.5 mg F/U BNP and reponse, high protein DIET Prognosis poor explained to family
[2019-02-03] MEDS ORDERED: METOLAZONE 2.5 MG TABLET (FP) PO ONE (13:00)
--- NOTE | 2019-02-03 13:24 | PN ---
Progress Note (short form) - Note Progress Note: Please refer to recent consult. 88 year old -Greek female was readmitted with progressive shortness of breath requiring high flow oxygen , also found to have severe anemia with pancytopenia which was attributed to the use of methimazole. Patient has decubiti ulcers, was found to be septic with a urinary tract infection. She has had progressive pedal edema and clinically has congestive heart. Edema has persisted. No change in clinical status. continues to have stridor and has tracheal compression. thyromegaly. lethargic. Active Medications Acetaminophen (Tylenol -) 650 mg PO QID PRN PRN Reason: PAIN 1-3 Last Admin: 02/02/19 23:01 Dose: 650 mg Albuterol/Ipratropium (Duoneb -) 1 amp NEB RQ4H [facility] Last Admin: 02/03/19 11:23 Dose: 1 amp Bacitracin (Bacitracin -) 1 applic TP DAILY [facility] Last Admin: 02/03/19 10:52 Dose: 1 applic Collagenase (Santyl -) 1 applic TP DAILY [facility]; Protocol Diltiazem HCl (Cardizem Cd -) 180 mg PO DAILY [facility] Last Admin: 02/03/19 10:55 Dose: 180 mg Gabapentin (Neurontin -) 100 mg PO TID [facility] Last Admin: 02/03/19 06:22 Dose: 100 mg IV Flush (Triple Lumen Flush) 4 ml IVPUSH PRN PRN PRN Reason: Protocol Last Admin: 02/03/19 06:31 Dose: 4 ml Meropenem 1 gm/ Dextrose 100 mls @ 200 mls/hr IVPB Q12H [facility] Last Admin: 02/03/19 02:33 Dose: 200 mls/hr Metoprolol Succinate (Toprol Xl -) 50 mg PO HS [facility] Last Admin: 02/02/19 23:04 Dose: Not Given Morphine Sulfate (Morphine Sulfate) 4 mg IVPUSH Q3H PRN PRN Reason: PAIN LEVEL 6-10 Last Admin: 02/03/19 10:13 Dose: 4 mg Nystatin (Nystop Powder -) 1 applic TP DAILY [facility] Last Admin: 02/03/19 10:55 Dose: 1 applic Ondansetron HCl (Zofran -) 4 mg PO TID PRN PRN Reason: NAUSEA Pantoprazole Sodium (Protonix Iv) 40 mg IVPUSH DAILY [facility] Last Admin: 02/03/19 10:49 Dose: 40 mg Fluticasone/Salmeterol (Advair 100mcg/50mcg -) 1 puff IH BID [facility] Last Admin: 02/03/19 10:55 Dose: 1 puff Silver Sulfadiazine (Silvadene -) 1 applic TP BID [facility] Last Admin: 02/03/19 10:55 Dose: 1 applic Tramadol HCl (Ultram -) 50 mg PO Q8H PRN PRN Reason: PAIN LEVEL 6-10 Warfarin Sodium (Coumadin -) 2 mg PO DAILY@1800 [facility] Last Admin: 02/02/19 17:34 Dose: 2 mg Last Vital Signs Temp Pulse Resp BP Pulse Ox 98.3 F 107 H 22 H 99/43 L 92 L 02/03/19 06:06 02/03/19 06:06 02/03/19 06:06 02/03/19 06:06 02/03/19 07:34 NECK: Supple, positive hepatojugular reflux, carotids were 2+. No bruits were appreciated. HEART: PMI was not localized. Heart sounds were distant, partially obscured by coarse breath sounds. No murmur or gallops were heard. LUNGS: bilateral scattered expiratory wheezing. Unable to appreciate crepitations. ABDOMEN; soft, protuberant and nontender. No hepatosplenomegaly or palpable masses were appreciated. EXTREMITIES: 3+ bilateral pretibial and pedal edema. No calf tenderness was elicited. Dorsalis pedis and posterior tibial pulses could not be palpated. CBC, BMP 02/03/19 06:50 02/03/19 06:50 Impression: 1. Progressive respiratory failure: a). 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 2. Recent urinary tract infection, 3. Coronary artery disease, angina pectoris, presently stable. 4. 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 5. Multinodular goiter/thyromegaly. 6. History of thyrotoxicosis. 7. Severe anemia. 8. Chronic kidney disease. 9. Pedal edema, etiology: a). Hypoproteinemia. b). CHF. c). Aggravated by diltiazem. 10. Dicubitus Recommendations: 1. Diuretic preceeded by salt poor albumen. 2. Follow-up BNP and CBC. Prognosis: Critical. Micky Hawkins MD.
[2019-02-03 16:10] LABS: ANISOCYTOSIS 1+; MACROCYTOSIS 1+; OVALOCYTE 1+; PLATELET ESTIMATE NORMAL
--- NOTE | 2019-02-03 16:28 | PN ---
Progress Note, Physician History of Present Illness: pulmonary sleepy no distress,-tachypnea,-dyspnea - Current Medication List Current Medications: Active Medications Acetaminophen (Tylenol -) 650 mg PO QID PRN PRN Reason: PAIN 1-3 Last Admin: 02/02/19 23:01 Dose: 650 mg Albuterol/Ipratropium (Duoneb -) 1 amp NEB RQ4H [facility] Last Admin: 02/03/19 15:53 Dose: 1 amp Bacitracin (Bacitracin -) 1 applic TP DAILY [facility] Last Admin: 02/03/19 10:52 Dose: 1 applic Collagenase (Santyl -) 1 applic TP DAILY [facility]; Protocol Diltiazem HCl (Cardizem Cd -) 180 mg PO DAILY [facility] Last Admin: 02/03/19 10:55 Dose: 180 mg Gabapentin (Neurontin -) 100 mg PO TID [facility] Last Admin: 02/03/19 14:50 Dose: 100 mg IV Flush (Triple Lumen Flush) 4 ml IVPUSH PRN PRN PRN Reason: Protocol Last Admin: 02/03/19 06:31 Dose: 4 ml Meropenem 1 gm/ Dextrose 100 mls @ 200 mls/hr IVPB Q12H [facility] Last Admin: 02/03/19 14:50 Dose: 200 mls/hr Metoprolol Succinate (Toprol Xl -) 50 mg PO HS [facility] Last Admin: 02/02/19 23:04 Dose: Not Given Morphine Sulfate (Morphine Sulfate) 4 mg IVPUSH Q3H PRN PRN Reason: PAIN LEVEL 6-10 Last Admin: 02/03/19 10:13 Dose: 4 mg Nystatin (Nystop Powder -) 1 applic TP DAILY [facility] Last Admin: 02/03/19 10:55 Dose: 1 applic Ondansetron HCl (Zofran -) 4 mg PO TID PRN PRN Reason: NAUSEA Pantoprazole Sodium (Protonix Iv) 40 mg IVPUSH DAILY [facility] Last Admin: 02/03/19 10:49 Dose: 40 mg Fluticasone/Salmeterol (Advair 100mcg/50mcg -) 1 puff IH BID [facility] Last Admin: 02/03/19 10:55 Dose: 1 puff Silver Sulfadiazine (Silvadene -) 1 applic TP BID [facility] Last Admin: 02/03/19 10:55 Dose: 1 applic Tramadol HCl (Ultram -) 50 mg PO Q8H PRN PRN Reason: PAIN LEVEL 6-10 Warfarin Sodium (Coumadin -) 2 mg PO DAILY@1800 [facility] Last Admin: 02/02/19 17:34 Dose: 2 mg - Objective Vital Signs: Vital Signs Temperature 98.1 F 02/03/19 15:26 Pulse Rate 113 H 02/03/19 15:26 Respiratory Rate 20 02/03/19 15:26 Blood Pressure 131/77 02/03/19 15:26 O2 Sat by Pulse Oximetry (%) 92 L 02/03/19 09:00 Constitutional: Yes: Well Nourished, Other (sleepy) Eyes: Yes: WNL HENT: Yes: WNL Neck: Yes: WNL Cardiovascular: Yes: Pulse Irregular, S1, S2 Respiratory: Yes: Diminished Gastrointestinal: Yes: Normal Bowel Sounds, Soft Extremities: Yes: WNL Edema: Yes Labs: CBC, BMP 02/03/19 06:50 02/03/19 06:50 INR, PTT INR 1.49 (0.83-1.09) H 02/03/19 06:50 Fibrinogen 474.0 mg/dL (238-498) 01/23/19 07:03 Problem List - Problems (1) Anemia Code(s): D64.9 - ANEMIA, UNSPECIFIED Qualifiers: Anemia type: unspecified type Qualified Code(s): D64.9 - Anemia, unspecified (2) SOB (shortness of breath) Code(s): R06.02 - SHORTNESS OF BREATH (3) Toxic diffuse goiter Code(s): 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 - THYROTOXICOSIS W DIFFUSE GOITER W/O THYROTOXIC CRISIS (4) Afib Code(s): I48.91 - UNSPECIFIED ATRIAL FIBRILLATION Qualifiers: Atrial fibrillation type: chronic Qualified Code(s): I48.2 - Chronic atrial fibrillation (5) CHF (NYHA class II, ACC/AHA stage C) Code(s): I50.9 - HEART FAILURE, UNSPECIFIED (6) COPD (chronic obstructive pulmonary disease) Code(s): J44.9 - CHRONIC OBSTRUCTIVE PULMONARY DISEASE, UNSPECIFIED Qualifiers: COPD type: unspecified COPD Qualified Code(s): J44.9 - Chronic obstructive pulmonary disease, unspecified (7) Persistent atrial fibrillation Code(s): I48.1 - PERSISTENT ATRIAL FIBRILLATION (8) Respiratory distress, acute Code(s): R06.03 - ACUTE RESPIRATORY DISTRESS (9) Pancytopenia Code(s): D61.818 - OTHER PANCYTOPENIA (10) Respiratory failure Code(s): J96.90 - RESPIRATORY FAILURE, UNSP, UNSP W HYPOXIA OR HYPERCAPNIA (11) Sepsis Code(s): A41.9 - SEPSIS, UNSPECIFIED ORGANISM Qualifiers: Sepsis type: sepsis due to unspecified organism Qualified Code(s): A41.9 - Sepsis, unspecified organism (12) Tracheal compression Code(s): J39.8 - OTHER SPECIFIED DISEASES OF UPPER RESPIRATORY TRACT (13) Acute on chronic respiratory failure with hypoxemia Code(s): J96.21 - ACUTE AND CHRONIC RESPIRATORY FAILURE WITH HYPOXIA Assessment/Plan ASSESSMENT AND PLAN: Acute on Chronic Hypoxic Respiratory Failure UTI Sacral Decubitus Infection Gram Positive Bacteremia Sepsis COPD Atrial Fibrillation LV Systolic/Diastolic Dysfunction CKD Pancytopenia Anemia requiring PRBC transfusions Goiter with Tracheal compression - antibiotics per ID - Local wound care per surgery - monitor CBC - O2 to keep Spo2 >90% - NIPPV needed to assist in work of breathing - inhaled bronchodilators - rate control - DR GOMEZ
[2019-02-03] MEDS: COLLAGENASE CLOSTRIDIUM HIST. 30 GRAMS TUBE TP SCH (17:31)
[2019-02-03] MEDS: WARFARIN NA 2 MG TABLET (UD) PO SCH (17:31)
[2019-02-03] MEDS: traMADol HCL 50 MG TABLET PO PRN (22:46)
[2019-02-04] MEDS ORDERED: DEXTROSE 5%-WATER 100 ML IVPB ONE ×2 (01:38→14:43)
[2019-02-04] MEDS ORDERED: MEROPENEM 1 GM VIAL (RESTRICTED TO ID) IVPB ONE ×2 (01:38→14:42)
[2019-02-04] MEDS: MEROPENEM 1 GM in DEXTROSE 5%-WATER 100 ML IVPB SCH ×2 (01:54→14:47)
[2019-02-04] MEDS: ALBUTEROL SO4 2.5/IPRATROPIUM 0.5 INH SOL 3 ML VIAL.NEB. NEB SCH ×6 (03:42→23:55)
[2019-02-04] MEDS: MORPHINE SULFATE 2 MG/ML VIAL IVPUSH PRN (04:58)
[2019-02-04] MEDS: GABAPENTIN 100 MG CAPSULE (FP) PO SCH ×4 (06:49→21:50)
[2019-02-04 09:59] LABS: BASO % 0.7 % (0-2.0); EOS % 0.2 % (0-4.5); HEMATOCRIT 24.2 % (32.4-45.2); HEMOGLOBIN 7.8 GM/dL (10.7-15.3); LYMPH % 13.7 % (8-40); MEAN CELL VOLUME 93.9 fl (80-96); MEAN PLT VOLUME 8.3 fl (7.5-11.1); MONO % 6.2 % (3.8-10.2); NEUT % 79.2 % (42.8-82.8); PLATELET COUNT 350 K/MM3 (134-434); RBC 2.58 M/mm3 (3.60-5.2); WHITE BLOOD COUNT 17.4 K/mm3 (4.0-10.0)
[2019-02-04 10:10] LABS: INR 1.59 (0.83-1.09); PROTHROMBIN TIME (PATIENT) 18.9 SEC (9.7-13.0)
[2019-02-04 10:21] LABS: BLOOD UREA NITROGEN 44.2 mg/dL (7-18); CALCIUM 8.9 mg/dL (8.5-10.1); CREATININE 1.6 mg/dL (0.55-1.3); POTASSIUM 4.7 mmol/L (3.5-5.1)
[2019-02-04 11:27] LABS: ANISOCYTOSIS 1+; MACROCYTOSIS 1+; OVALOCYTE 1+; PLATELET ESTIMATE NORMAL; TOXIC GRANULATION 1+
--- NOTE | 2019-02-04 11:48 | PN ---
Progress Note (short form) - Note Progress Note: Please refer to recent consult. 88 year old -[place] female was readmitted with progressive shortness of breath requiring high flow oxygen , also found to have severe anemia with pancytopenia which was attributed to the use of methimazole. Patient has decubiti ulcers, was found to be septic with a urinary tract infection. Patient continues to have pedal edema. She is more alert and states her appetite is improving and has had dinner for the past 3 days. Patient continues to have hacking cough/stridor. Active Medications Acetaminophen (Tylenol -) 650 mg PO QID PRN PRN Reason: PAIN 1-3 Last Admin: 02/02/19 23:01 Dose: 650 mg Albuterol/Ipratropium (Duoneb -) 1 amp NEB RQ4H [facility] Last Admin: 02/04/19 08:45 Dose: 1 amp Bacitracin (Bacitracin -) 1 applic TP DAILY [facility] Last Admin: 02/03/19 10:52 Dose: 1 applic Collagenase (Santyl -) 1 applic TP DAILY [facility]; Protocol Last Admin: 02/03/19 17:31 Dose: Not Given Diltiazem HCl (Cardizem Cd -) 180 mg PO DAILY [facility] Last Admin: 02/03/19 10:55 Dose: 180 mg Gabapentin (Neurontin -) 100 mg PO TID [facility] Last Admin: 02/04/19 06:49 Dose: 100 mg IV Flush (Triple Lumen Flush) 4 ml IVPUSH PRN PRN PRN Reason: Protocol Last Admin: 02/03/19 06:31 Dose: 4 ml Meropenem 1 gm/ Dextrose 100 mls @ 200 mls/hr IVPB Q12H [facility] Last Admin: 02/04/19 01:54 Dose: 200 mls/hr Metoprolol Succinate (Toprol Xl -) 50 mg PO HS [facility] Last Admin: 02/03/19 22:46 Dose: 50 mg Morphine Sulfate (Morphine Sulfate) 4 mg IVPUSH Q3H PRN PRN Reason: PAIN LEVEL 6-10 Last Admin: 02/04/19 04:58 Dose: 4 mg Nystatin (Nystop Powder -) 1 applic TP DAILY [facility] Last Admin: 02/03/19 10:55 Dose: 1 applic Ondansetron HCl (Zofran -) 4 mg PO TID PRN PRN Reason: NAUSEA Pantoprazole Sodium (Protonix Iv) 40 mg IVPUSH DAILY [facility] Last Admin: 02/03/19 10:49 Dose: 40 mg Fluticasone/Salmeterol (Advair 100mcg/50mcg -) 1 puff IH BID [facility] Last Admin: 02/03/19 22:45 Dose: 1 puff Silver Sulfadiazine (Silvadene -) 1 applic TP BID [facility] Last Admin: 02/03/19 22:46 Dose: 1 applic Tramadol HCl (Ultram -) 50 mg PO Q8H PRN PRN Reason: PAIN LEVEL 6-10 Last Admin: 02/03/19 22:46 Dose: 50 mg Warfarin Sodium (Coumadin -) 2 mg PO DAILY@1800 [facility] Last Admin: 02/03/19 17:31 Dose: 2 mg Last Vital Signs Temp Pulse Resp BP Pulse Ox 98.1 F 102 H 18 111/57 L 94 L 02/04/19 09:00 02/04/19 09:00 02/04/19 09:00 02/04/19 09:00 02/03/19 21:00 NECK: Supple, positive hepatojugular reflux, carotids were 2+. No bruits were appreciated. HEART: PMI was not localized. Heart sounds were distant, partially obscured by coarse breath sounds. No murmur or gallops were heard. LUNGS: bilateral scattered expiratory wheezing. Unable to appreciate crepitations. ABDOMEN; soft, protuberant and nontender. No hepatosplenomegaly or palpable masses were appreciated. EXTREMITIES: 3+ bilateral pretibial and pedal edema. No calf tenderness was elicited. Dorsalis pedis and posterior tibial pulses could not be palpated. CBC, BMP 02/04/19 09:44 02/04/19 09:44 Impression: 1. Progressive respiratory failure: a). 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 2. Recent urinary tract infection, 3. Coronary artery disease, angina pectoris, presently stable. 4. 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 5. Multinodular goiter/thyromegaly. 6. History of thyrotoxicosis. 7. Severe anemia. 8. Chronic kidney disease. 9. Pedal edema, etiology: a). Hypoproteinemia. b). CHF. c). Aggravated by diltiazem. 10. Dicubitus Recommendations: 1. Consider giving 1 gram of salt-poor albumin followed by IV Lasix. 2. Follow-up BMP and CBC. Prognosis: Critical. Micky Hawkins MD.
[2019-02-04] MEDS ORDERED: PT OWN MED DRAWER 7, Y5N ONE (11:59)
[2019-02-04] MEDS: COLLAGENASE CLOSTRIDIUM HIST. 30 GRAMS TUBE TP SCH (12:04)
[2019-02-04] MEDS: SILVER SULFADIAZINE 1% TOP CREAM 400 GM JAR TP SCH ×2 (12:05→21:49)
[2019-02-04] MEDS: BACITRACIN 15 GM TUBE TOPICAL OINTMENT TP SCH (12:06)
[2019-02-04] MEDS: PANTOPRAZOLE SODIUM 40 MG VIAL IVPUSH SCH (12:06)
[2019-02-04] MEDS: FLUTICASONE/SALMETEROL 100 MCG/50 MCG DISKUS IH SCH ×2 (12:06→21:49)
[2019-02-04] MEDS: NYSTATIN POWDER 100,000 UNITS/GM - 15 GM TOPICAL POWDER TP SCH (12:06)
[2019-02-04] MEDS ORDERED: METOLAZONE 2.5 MG TABLET (FP) PO ONE (12:37)
[2019-02-04] MEDS ORDERED: FUROSEMIDE 40 MG/4 ML INJECTABLE VIAL IVPUSH ONE (12:38)
--- NOTE | 2019-02-04 13:58 | PN ---
Progress Note, Physician Chief Complaint: Not in acute distress c/o body pain - Current Medication List Current Medications: Active Medications Acetaminophen (Tylenol -) 650 mg PO QID PRN PRN Reason: PAIN 1-3 Last Admin: 02/02/19 23:01 Dose: 650 mg Albumin Human (Albumin Human 25% -) 12.5 gm IVPB Q30M [facility] Stop: 02/04/19 14:16 Albuterol/Ipratropium (Duoneb -) 1 amp NEB RQ4H [facility] Last Admin: 02/04/19 08:45 Dose: 1 amp Bacitracin (Bacitracin -) 1 applic TP DAILY [facility] Last Admin: 02/04/19 12:06 Dose: 1 applic Collagenase (Santyl -) 1 applic TP DAILY [facility]; Protocol Last Admin: 02/04/19 12:04 Dose: 1 applic Diltiazem HCl (Cardizem Cd -) 180 mg PO DAILY [facility] Last Admin: 02/04/19 12:03 Dose: 180 mg Gabapentin (Neurontin -) 100 mg PO TID [facility] Last Admin: 02/04/19 06:49 Dose: 100 mg IV Flush (Triple Lumen Flush) 4 ml IVPUSH PRN PRN PRN Reason: Protocol Last Admin: 02/03/19 06:31 Dose: 4 ml Meropenem 1 gm/ Dextrose 100 mls @ 200 mls/hr IVPB Q12H [facility] Last Admin: 02/04/19 01:54 Dose: 200 mls/hr Metoprolol Succinate (Toprol Xl -) 50 mg PO HS [facility] Last Admin: 02/03/19 22:46 Dose: 50 mg Morphine Sulfate (Morphine Sulfate) 4 mg IVPUSH Q3H PRN PRN Reason: PAIN LEVEL 6-10 Last Admin: 02/04/19 04:58 Dose: 4 mg Nystatin (Nystop Powder -) 1 applic TP DAILY [facility] Last Admin: 02/04/19 12:06 Dose: 1 applic Ondansetron HCl (Zofran -) 4 mg PO TID PRN PRN Reason: NAUSEA Pantoprazole Sodium (Protonix Iv) 40 mg IVPUSH DAILY [facility] Last Admin: 02/04/19 12:06 Dose: 40 mg Fluticasone/Salmeterol (Advair 100mcg/50mcg -) 1 puff IH BID [facility] Last Admin: 02/04/19 12:06 Dose: 1 puff Silver Sulfadiazine (Silvadene -) 1 applic TP BID [facility] Last Admin: 02/04/19 12:05 Dose: 1 applic Tramadol HCl (Ultram -) 50 mg PO Q8H PRN PRN Reason: PAIN LEVEL 6-10 Last Admin: 02/03/19 22:46 Dose: 50 mg Warfarin Sodium (Coumadin -) 2 mg PO DAILY@1800 [facility] Last Admin: 02/03/19 17:31 Dose: 2 mg - Objective Vital Signs: Vital Signs Temperature 98.1 F 02/04/19 09:00 Pulse Rate 102 H 02/04/19 09:00 Respiratory Rate 18 02/04/19 09:00 Blood Pressure 111/57 L 02/04/19 09:00 O2 Sat by Pulse Oximetry (%) 94 L 02/03/19 21:00 Elderly sick looking F looks edematous, not in distress HEENT: facial puffiness anemia, no external trauma NECK; No JVd No BrUit CHEST: Congested equal AE no wheezes ABD: Obese, non tender EXT: Edematous with multiple echymoses ABA TUTOR: 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 Labs: CBC, BMP 02/04/19 09:44 02/04/19 09:44 INR, PTT INR 1.59 (0.83-1.09) H 02/04/19 09:44 Fibrinogen 474.0 mg/dL (238-498) 01/23/19 07:03 Problem List - Problems (1) Symptomatic anemia Code(s): D64.9 - ANEMIA, UNSPECIFIED (2) Respiratory failure Code(s): J96.90 - RESPIRATORY FAILURE, UNSP, UNSP W HYPOXIA OR HYPERCAPNIA (3) CHF (NYHA class II, ACC/AHA stage C) Code(s): I50.9 - HEART FAILURE, UNSPECIFIED (4) CKD (chronic kidney disease) Code(s): N18.9 - CHRONIC KIDNEY DISEASE, UNSPECIFIED Qualifiers: Chronic kidney disease stage: stage 4 (severe) Qualified Code(s): N18.4 - Chronic kidney disease, stage 4 (severe) (5) Persistent atrial fibrillation Code(s): I48.1 - PERSISTENT ATRIAL FIBRILLATION (6) COPD (chronic obstructive pulmonary disease) Code(s): J44.9 - CHRONIC OBSTRUCTIVE PULMONARY DISEASE, UNSPECIFIED Qualifiers: COPD type: unspecified COPD Qualified Code(s): J44.9 - Chronic obstructive pulmonary disease, unspecified (7) Thyromegaly Code(s): E01.0 - IODINE-DEFICIENCY RELATED DIFFUSE (ENDEMIC) GOITER (8) Malnutrition Code(s): E46 - UNSPECIFIED PROTEIN-CALORIE MALNUTRITION Qualifiers: Malnutrition type: protein-calorie malnutrition (9) Pressure ulcer Code(s): L89.90 - PRESSURE ULCER OF UNSPECIFIED SITE, UNSPECIFIED STAGE (10) UTI (urinary tract infection) Code(s): N39.0 - URINARY TRACT INFECTION, SITE NOT SPECIFIED (11) Goals of care, counseling/discussion Code(s): Z71.89 - OTHER SPECIFIED COUNSELING Assessment/Plan Patient remained hemodynamically stable but over all weak and de-conditioned, making good amount of urine but still edematouus Plan: UTI with sepsis on Meropenema a3 moreday wo;; DC INR subtherapeutic cont Coumadin 2 mg Low grade 17 stool C Diff ag + F/U ID recommendations. Discussed with family Goals of care and ADR Anasarca discussed with Cardiology consult will order Alow Salt albumin followed by IV lasix 40 IVSS with Zaroxolyn 2.5 mg F/U BMP and reponse, high protein DIET Also discussed rate control strategy will wean off Diltizem add Digoxine Prognosis poor explained to family
[2019-02-04] MEDS ORDERED: DIGOXIN 0.25 MG TABLET (FP) PO ONE (13:59)
[2019-02-04] MEDS: ALBUMIN HUMAN 25% 100 ML VIAL IVPB SCH ×4 (14:48→17:35)
[2019-02-04 15:13] VITALS: BMI 38.8
--- NOTE | 2019-02-04 15:13 | PN ---
Progress Note (short form) - Note Progress Note: Appears weak. Tolerating NIPPV support. Denies CP. SOB overall improving. Intake & Output 02/01/19 02/02/19 02/03/19 02/04/19 23:59 23:59 23:59 23:59 Intake Total 1130 887 600 537 Output Total 1500 1200 2000 500 Balance -370 -313 -1400 37 Weight 248 lb 2 oz Last Vital Signs Temp Pulse Resp BP Pulse Ox 98.2 F 100 H 20 105/81 94 L 02/04/19 14:57 02/04/19 14:57 02/04/19 14:57 02/04/19 14:57 02/03/19 21:00 Active Medications Acetaminophen (Tylenol -) 650 mg PO QID PRN PRN Reason: PAIN 1-3 Last Admin: 02/02/19 23:01 Dose: 650 mg Albuterol/Ipratropium (Duoneb -) 1 amp NEB RQ4H [facility] Last Admin: 02/04/19 12:50 Dose: 1 amp Bacitracin (Bacitracin -) 1 applic TP DAILY [facility] Last Admin: 02/04/19 12:06 Dose: 1 applic Collagenase (Santyl -) 1 applic TP DAILY [facility]; Protocol Last Admin: 02/04/19 12:04 Dose: 1 applic Diltiazem HCl (Cardizem Cd -) 120 mg PO DAILY [facility] Gabapentin (Neurontin -) 100 mg PO TID [facility] Last Admin: 02/04/19 14:47 Dose: 100 mg IV Flush (Triple Lumen Flush) 4 ml IVPUSH PRN PRN PRN Reason: Protocol Last Admin: 02/03/19 06:31 Dose: 4 ml Meropenem 1 gm/ Dextrose 100 mls @ 200 mls/hr IVPB Q12H [facility] Last Admin: 02/04/19 14:47 Dose: 200 mls/hr Metoprolol Succinate (Toprol Xl -) 50 mg PO HS [facility] Last Admin: 02/03/19 22:46 Dose: 50 mg Morphine Sulfate (Morphine Sulfate) 4 mg IVPUSH Q3H PRN PRN Reason: PAIN LEVEL 6-10 Last Admin: 02/04/19 04:58 Dose: 4 mg Nystatin (Nystop Powder -) 1 applic TP DAILY [facility] Last Admin: 02/04/19 12:06 Dose: 1 applic Ondansetron HCl (Zofran -) 4 mg PO TID PRN PRN Reason: NAUSEA Pantoprazole Sodium (Protonix Iv) 40 mg IVPUSH DAILY [facility] Last Admin: 02/04/19 12:06 Dose: 40 mg Fluticasone/Salmeterol (Advair 100mcg/50mcg -) 1 puff IH BID [facility] Last Admin: 02/04/19 12:06 Dose: 1 puff Silver Sulfadiazine (Silvadene -) 1 applic TP BID [facility] Last Admin: 02/04/19 12:05 Dose: 1 applic Tramadol HCl (Ultram -) 50 mg PO Q8H PRN PRN Reason: PAIN LEVEL 6-10 Last Admin: 02/03/19 22:46 Dose: 50 mg Warfarin Sodium (Coumadin -) 2 mg PO DAILY@1800 [facility] Last Admin: 02/03/19 17:31 Dose: 2 mg Gen: weak appearing, NAD Heart: RRR Lung: scattered rhonchi Abd: soft, nontender Ext: no edema Laboratory Results - last 24 hr 02/03/19 02/04/19 02/04/19 06:50 09:44 09:44 WBC 17.4 H Corrected WBC (auto) 15.00 RBC 2.58 L Hgb 7.8 L Hct 24.2 L MCV 93.9 MCH 30.0 MCHC 32.0 RDW 21.0 H Plt Count 350 MPV 8.3 Absolute Neuts (auto) 13.8 H Neutrophils % 79.2 Neutrophils % (Manual) 70.0 79.2 Band Neutrophils % 3.0 2.1 Lymphocytes % 13.7 Lymphocytes % (Manual) 15.0 8.3 D Monocytes % 6.2 Monocytes % (Manual) 2 L 4 D Eosinophils % 0.2 Eosinophils % (Manual) 0.0 0.0 Basophils % 0.7 Basophils % (Manual) 0.0 0.0 Myelocytes % (Man) 6 H 5 H Promyelocytes % (Man) 0 0 Blast Cells % (Manual) 0 0 Nucleated RBC % 9 H Metamyelocytes 3 H D 1 D Hypochromia 0 0 Toxic Granulation 1+ Platelet Estimate Normal Normal Polychromasia 1+ 1+ Poikilocytosis 0 0 Basophilic Stippling 1+ Anisocytosis 1+ 1+ Microcytosis 0 Macrocytosis 1+ 1+ Ovalocytes 1+ 1+ PT with INR 18.90 H INR 1.59 H Sodium Potassium Chloride Carbon Dioxide Anion Gap BUN Creatinine Est GFR (CKD-EPI)AfAm Est GFR (CKD-EPI)NonAf Random Glucose Calcium 02/04/19 09:44 WBC Corrected WBC (auto) RBC Hgb Hct MCV MCH MCHC RDW Plt Count MPV Absolute Neuts (auto) Neutrophils % Neutrophils % (Manual) Band Neutrophils % Lymphocytes % Lymphocytes % (Manual) Monocytes % Monocytes % (Manual) Eosinophils % Eosinophils % (Manual) Basophils % Basophils % (Manual) Myelocytes % (Man) Promyelocytes % (Man) Blast Cells % (Manual) Nucleated RBC % Metamyelocytes Hypochromia Toxic Granulation Platelet Estimate Polychromasia Poikilocytosis Basophilic Stippling Anisocytosis Microcytosis Macrocytosis Ovalocytes PT with INR INR Sodium 140 Potassium 4.7 Chloride 105 Carbon Dioxide 30 Anion Gap 5 L BUN 44.2 H Creatinine 1.6 H Est GFR (CKD-EPI)AfAm 32.77 Est GFR (CKD-EPI)NonAf 28.27 Random Glucose 119 H Calcium 8.9 ASSESSMENT AND PLAN: Acute on Chronic Hypoxic Respiratory Failure UTI Sacral Decubitus Infection Gram Positive Bacteremia Sepsis COPD Atrial Fibrillation LV Systolic/Diastolic Dysfunction CKD Pancytopenia Anemia requiring PRBC transfusions Goiter with Tracheal compression - ABX per ID - Local wound care per surgery - monitor CBC - O2 to keep Spo2 >90% - NIPPV needed to assist in work of breathing - inhaled bronchodilators - rate control - GOC being discussed Dr Amaya
--- NOTE | 2019-02-04 15:24 | PN ---
Progress Note, Physician History of Present Illness: breathing better still says she does not feel that well - Current Medication List Current Medications: Active Medications Acetaminophen (Tylenol -) 650 mg PO QID PRN PRN Reason: PAIN 1-3 Last Admin: 02/02/19 23:01 Dose: 650 mg Albuterol/Ipratropium (Duoneb -) 1 amp NEB RQ4H [facility] Last Admin: 02/04/19 12:50 Dose: 1 amp Bacitracin (Bacitracin -) 1 applic TP DAILY [facility] Last Admin: 02/04/19 12:06 Dose: 1 applic Collagenase (Santyl -) 1 applic TP DAILY [facility]; Protocol Last Admin: 02/04/19 12:04 Dose: 1 applic Diltiazem HCl (Cardizem Cd -) 120 mg PO DAILY [facility] Gabapentin (Neurontin -) 100 mg PO TID [facility] Last Admin: 02/04/19 14:47 Dose: 100 mg IV Flush (Triple Lumen Flush) 4 ml IVPUSH PRN PRN PRN Reason: Protocol Last Admin: 02/03/19 06:31 Dose: 4 ml Meropenem 1 gm/ Dextrose 100 mls @ 200 mls/hr IVPB Q12H [facility] Last Admin: 02/04/19 14:47 Dose: 200 mls/hr Metoprolol Succinate (Toprol Xl -) 50 mg PO HS [facility] Last Admin: 02/03/19 22:46 Dose: 50 mg Morphine Sulfate (Morphine Sulfate) 4 mg IVPUSH Q3H PRN PRN Reason: PAIN LEVEL 6-10 Last Admin: 02/04/19 04:58 Dose: 4 mg Nystatin (Nystop Powder -) 1 applic TP DAILY [facility] Last Admin: 02/04/19 12:06 Dose: 1 applic Ondansetron HCl (Zofran -) 4 mg PO TID PRN PRN Reason: NAUSEA Pantoprazole Sodium (Protonix Iv) 40 mg IVPUSH DAILY [facility] Last Admin: 02/04/19 12:06 Dose: 40 mg Fluticasone/Salmeterol (Advair 100mcg/50mcg -) 1 puff IH BID [facility] Last Admin: 02/04/19 12:06 Dose: 1 puff Silver Sulfadiazine (Silvadene -) 1 applic TP BID [facility] Last Admin: 02/04/19 12:05 Dose: 1 applic Tramadol HCl (Ultram -) 50 mg PO Q8H PRN PRN Reason: PAIN LEVEL 6-10 Last Admin: 02/03/19 22:46 Dose: 50 mg Warfarin Sodium (Coumadin -) 2 mg PO DAILY@1800 [facility] Last Admin: 02/03/19 17:31 Dose: 2 mg - Objective Vital Signs: Vital Signs Temperature 98.2 F 02/04/19 14:57 Pulse Rate 100 H 02/04/19 14:57 Respiratory Rate 20 02/04/19 14:57 Blood Pressure 105/81 02/04/19 14:57 O2 Sat by Pulse Oximetry (%) 94 L 02/03/19 21:00 Constitutional: Yes: No Distress, Calm Cardiovascular: Yes: Pulse Irregular Respiratory: Yes: On Nasal O2, Poor Air Entry Gastrointestinal: Yes: Normal Bowel Sounds, Soft Musculoskeletal: Yes: Other Extremities: Yes: Other Wound/Incision: Yes: Other (multiple wounds) Neurological: Yes: Alert, Oriented Psychiatric: Yes: Alert, Oriented Labs: CBC, BMP 02/04/19 09:44 02/04/19 09:44 INR, PTT INR 1.59 (0.83-1.09) H 02/04/19 09:44 Fibrinogen 474.0 mg/dL (238-498) 01/23/19 07:03 Assessment/Plan Problem List - Problems (1) Respiratory failure Code(s): J96.90 - RESPIRATORY FAILURE, UNSP, UNSP W HYPOXIA OR HYPERCAPNIA (2) SOB (shortness of breath) Code(s): R06.02 - SHORTNESS OF BREATH (3) Symptomatic anemia Code(s): D64.9 - ANEMIA, UNSPECIFIED (4) Acute on chronic renal failure Code(s): N17.9 - ACUTE KIDNEY FAILURE, UNSPECIFIED; N18.9 - CHRONIC KIDNEY DISEASE, UNSPECIFIED (5) Afib Code(s): I48.91 - UNSPECIFIED ATRIAL FIBRILLATION Qualifiers: Atrial fibrillation type: chronic Qualified Code(s): I48.2 - Chronic atrial fibrillation (6) CHF (NYHA class II, ACC/AHA stage C) Code(s): I50.9 - HEART FAILURE, UNSPECIFIED (7) CKD (chronic kidney disease) Code(s): N18.9 - CHRONIC KIDNEY DISEASE, UNSPECIFIED Qualifiers: Chronic kidney disease stage: stage 4 (severe) Qualified Code(s): N18.4 - Chronic kidney disease, stage 4 (severe) (8) COPD (chronic obstructive pulmonary disease) Code(s): J44.9 - CHRONIC OBSTRUCTIVE PULMONARY DISEASE, UNSPECIFIED Qualifiers: COPD type: unspecified COPD Qualified Code(s): J44.9 - Chronic obstructive pulmonary disease, unspecified (9) Hypercholesteremia Code(s): E78.00 - PURE HYPERCHOLESTEROLEMIA, UNSPECIFIED (10) Hypertension Code(s): I10 - ESSENTIAL (PRIMARY) HYPERTENSION (11) Hyperthyroidism Code(s): E05.90 - THYROTOXICOSIS, UNSP WITHOUT THYROTOXIC CRISIS OR STORM (12) Obese Code(s): E66.9 - OBESITY, UNSPECIFIED (13) Sacral decubitus ulcer, stage II Code(s): L89.152 - PRESSURE ULCER OF SACRAL REGION, STAGE 2 (14) Thyromegaly Code(s): E01.0 - IODINE-DEFICIENCY RELATED DIFFUSE (ENDEMIC) GOITER (15) Tracheal compression Code(s): J39.8 - OTHER SPECIFIED DISEASES OF UPPER RESPIRATORY TRACT (16) UTI (urinary tract infection) Code(s): N39.0 - URINARY TRACT INFECTION, SITE NOT SPECIFIED Qualifiers: Urinary tract infection type: site unspecified Hematuria presence: without hematuria Qualified Code(s): N39.0 - Urinary tract infection, site not specified 17 gi bleed Assessment/Plan 88 y.o. female with PMH of COPD on home O2, CHF, ASHD, HTN, HLD, CKD, diverticultis/ ? ischemic colitis s/p partial colectomy, s/p JW/BSO, chronic cough/persistent pulmonary infiltrates, multinodular goiter with partial tracheal compression, and anemia presents with c/o worsening SOB over the past week with subjective fever/chills. Fever Gram positive bacteremia UTI Acute hypoxic respiratory failure Possible HCAP Groin rash/excoriations Pancytopenia - ? due to Methimazole Multinodular goiter with partial tracheal compression COPD Hx of CKD AFIB CHF ASHD HTN HLD gi bleed plan continue current mgmt monitor wbc consider wound care consult rest as per the team
[2019-02-04] MEDS: WARFARIN NA 2 MG TABLET (UD) PO SCH (17:38)
[2019-02-05] MEDS ORDERED: DEXTROSE 5%-WATER 100 ML IVPB ONE ×2 (02:07→16:45)
[2019-02-05] MEDS ORDERED: MEROPENEM 1 GM VIAL (RESTRICTED TO ID) IVPB ONE ×2 (02:07→16:44)
[2019-02-05] MEDS: MEROPENEM 1 GM in DEXTROSE 5%-WATER 100 ML IVPB SCH ×2 (02:10→16:48)
[2019-02-05] MEDS: ALBUTEROL SO4 2.5/IPRATROPIUM 0.5 INH SOL 3 ML VIAL.NEB. NEB SCH ×6 (03:58→23:32)
[2019-02-05] MEDS: GABAPENTIN 100 MG CAPSULE (FP) PO SCH ×3 (06:15→21:08)
[2019-02-05 07:44] LABS: CORRECTED WBC 13.33 K/mm3; EOS % 0.3 % (0-4.5); HEMATOCRIT 21.6 % (32.4-45.2); LYMPH % 14.3 % (8-40); MCH 30.1 pg (25.7-33.7); MCHC 32.1 g/dl (32.0-36.0); MEAN CELL VOLUME 93.7 fl (80-96); MEAN PLT VOLUME 8.6 fl (7.5-11.1); MONO % 6.9 % (3.8-10.2); NEUT % 77.5 % (42.8-82.8); PLATELET COUNT 305 K/MM3 (134-434); RDW 20.6 % (11.6-15.6); WHITE BLOOD COUNT 14.8 K/mm3 (4.0-10.0)
[2019-02-05 07:50] LABS: INR 1.68 (0.83-1.09); PROTHROMBIN TIME (PATIENT) 19.9 SEC (9.7-13.0)
[2019-02-05 07:56] LABS: BLOOD UREA NITROGEN 42.6 mg/dL (7-18); CALCIUM 9.2 mg/dL (8.5-10.1); CREATININE 1.5 mg/dL (0.55-1.3); POTASSIUM 4.8 mmol/L (3.5-5.1)
[2019-02-05 08:18] LABS: HEMOGLOBIN 6.9 GM/dL (10.7-15.3)
--- NOTE | 2019-02-05 09:27 | PN ---
Progress Note, Physician History of Present Illness: stable does not feel well - Current Medication List Current Medications: Active Medications Acetaminophen (Tylenol -) 650 mg PO QID PRN PRN Reason: PAIN 1-3 Last Admin: 02/02/19 23:01 Dose: 650 mg Albuterol/Ipratropium (Duoneb -) 1 amp NEB RQ4H [facility] Last Admin: 02/05/19 07:31 Dose: 1 amp Bacitracin (Bacitracin -) 1 applic TP DAILY [facility] Last Admin: 02/04/19 12:06 Dose: 1 applic Collagenase (Santyl -) 1 applic TP DAILY [facility]; Protocol Last Admin: 02/04/19 12:04 Dose: 1 applic Diltiazem HCl (Cardizem Cd -) 120 mg PO DAILY [facility] Gabapentin (Neurontin -) 100 mg PO TID [facility] Last Admin: 02/05/19 06:15 Dose: 100 mg IV Flush (Triple Lumen Flush) 4 ml IVPUSH PRN PRN PRN Reason: Protocol Last Admin: 02/03/19 06:31 Dose: 4 ml Meropenem 1 gm/ Dextrose 100 mls @ 200 mls/hr IVPB Q12H [facility] Last Admin: 02/05/19 02:10 Dose: 200 mls/hr Metoprolol Succinate (Toprol Xl -) 50 mg PO HS [facility] Last Admin: 02/04/19 21:50 Dose: 50 mg Morphine Sulfate (Morphine Sulfate) 4 mg IVPUSH Q3H PRN PRN Reason: PAIN LEVEL 6-10 Last Admin: 02/04/19 04:58 Dose: 4 mg Nystatin (Nystop Powder -) 1 applic TP DAILY [facility] Last Admin: 02/04/19 12:06 Dose: 1 applic Ondansetron HCl (Zofran -) 4 mg PO TID PRN PRN Reason: NAUSEA Pantoprazole Sodium (Protonix Iv) 40 mg IVPUSH DAILY [facility] Last Admin: 02/04/19 12:06 Dose: 40 mg Fluticasone/Salmeterol (Advair 100mcg/50mcg -) 1 puff IH BID [facility] Last Admin: 02/04/19 21:49 Dose: 1 puff Silver Sulfadiazine (Silvadene -) 1 applic TP BID [facility] Last Admin: 02/04/19 21:49 Dose: 1 applic Tramadol HCl (Ultram -) 50 mg PO Q8H PRN PRN Reason: PAIN LEVEL 6-10 Last Admin: 02/03/19 22:46 Dose: 50 mg Warfarin Sodium (Coumadin -) 2 mg PO DAILY@1800 [facility] Last Admin: 02/04/19 17:38 Dose: 2 mg - Objective Vital Signs: Vital Signs Temperature 99.1 F 02/05/19 06:00 Pulse Rate 79 02/05/19 07:33 Respiratory Rate 20 02/05/19 06:00 Blood Pressure 96/57 L 02/05/19 06:00 O2 Sat by Pulse Oximetry (%) 96 02/05/19 07:33 Constitutional: Yes: Calm, Mild Distress Cardiovascular: Yes: Pulse Irregular, S1, S2 Respiratory: Yes: Regular, On Nasal O2, Poor Air Entry Gastrointestinal: Yes: Normal Bowel Sounds, Soft Musculoskeletal: Yes: WNL Extremities: Yes: WNL Edema: LLE: 1+, RLE: 1+ Wound/Incision: Yes: Other (multiple on the buttocks) Neurological: Yes: Alert, Oriented Psychiatric: Yes: Alert, Oriented Labs: CBC, BMP 02/05/19 06:20 02/05/19 06:20 INR, PTT INR 1.68 (0.83-1.09) H 02/05/19 06:20 Fibrinogen 474.0 mg/dL (238-498) 01/23/19 07:03 Assessment/Plan Problem List - Problems (1) Respiratory failure Code(s): J96.90 - RESPIRATORY FAILURE, UNSP, UNSP W HYPOXIA OR HYPERCAPNIA (2) SOB (shortness of breath) Code(s): R06.02 - SHORTNESS OF BREATH (3) Symptomatic anemia Code(s): D64.9 - ANEMIA, UNSPECIFIED (4) Acute on chronic renal failure Code(s): N17.9 - ACUTE KIDNEY FAILURE, UNSPECIFIED; N18.9 - CHRONIC KIDNEY DISEASE, UNSPECIFIED (5) Afib Code(s): I48.91 - UNSPECIFIED ATRIAL FIBRILLATION Qualifiers: Atrial fibrillation type: chronic Qualified Code(s): I48.2 - Chronic atrial fibrillation (6) CHF (NYHA class II, ACC/AHA stage C) Code(s): I50.9 - HEART FAILURE, UNSPECIFIED (7) CKD (chronic kidney disease) Code(s): N18.9 - CHRONIC KIDNEY DISEASE, UNSPECIFIED Qualifiers: Chronic kidney disease stage: stage 4 (severe) Qualified Code(s): N18.4 - Chronic kidney disease, stage 4 (severe) (8) COPD (chronic obstructive pulmonary disease) Code(s): J44.9 - CHRONIC OBSTRUCTIVE PULMONARY DISEASE, UNSPECIFIED Qualifiers: COPD type: unspecified COPD Qualified Code(s): J44.9 - Chronic obstructive pulmonary disease, unspecified (9) Hypercholesteremia Code(s): E78.00 - PURE HYPERCHOLESTEROLEMIA, UNSPECIFIED (10) Hypertension Code(s): I10 - ESSENTIAL (PRIMARY) HYPERTENSION (11) Hyperthyroidism Code(s): E05.90 - THYROTOXICOSIS, UNSP WITHOUT THYROTOXIC CRISIS OR STORM (12) Obese Code(s): E66.9 - OBESITY, UNSPECIFIED (13) Sacral decubitus ulcer, stage II Code(s): L89.152 - PRESSURE ULCER OF SACRAL REGION, STAGE 2 (14) Thyromegaly Code(s): E01.0 - IODINE-DEFICIENCY RELATED DIFFUSE (ENDEMIC) GOITER (15) Tracheal compression Code(s): J39.8 - OTHER SPECIFIED DISEASES OF UPPER RESPIRATORY TRACT (16) UTI (urinary tract infection) Code(s): N39.0 - URINARY TRACT INFECTION, SITE NOT SPECIFIED Qualifiers: Urinary tract infection type: site unspecified Hematuria presence: without hematuria Qualified Code(s): N39.0 - Urinary tract infection, site not specified 17 gi bleed Assessment/Plan 88 y.o. female with PMH of COPD on home O2, CHF, ASHD, HTN, HLD, CKD, diverticultis/ ? ischemic colitis s/p partial colectomy, s/p JW/BSO, chronic cough/persistent pulmonary infiltrates, multinodular goiter with partial tracheal compression, and anemia presents with c/o worsening SOB over the past week with subjective fever/chills. Fever Gram positive bacteremia UTI Acute hypoxic respiratory failure Possible HCAP Groin rash/excoriations Pancytopenia - ? due to Methimazole Multinodular goiter with partial tracheal compression COPD Hx of CKD AFIB CHF ASHD HTN HLD gi bleed plan continue current mgmt wbc trending down rest as per the wound nutrition
[2019-02-05] MEDS ORDERED: DIGOXIN 0.125 MG TABLET (FP) PO ONE (09:48)
--- NOTE | 2019-02-05 09:51 | PN ---
Progress Note, Physician Chief Complaint: Not in acute distress c/o body pain, looks drowsy - Current Medication List Current Medications: Active Medications Acetaminophen (Tylenol -) 650 mg PO QID PRN PRN Reason: PAIN 1-3 Last Admin: 02/02/19 23:01 Dose: 650 mg Albuterol/Ipratropium (Duoneb -) 1 amp NEB RQ4H [facility] Last Admin: 02/05/19 07:31 Dose: 1 amp Bacitracin (Bacitracin -) 1 applic TP DAILY [facility] Last Admin: 02/04/19 12:06 Dose: 1 applic Collagenase (Santyl -) 1 applic TP DAILY [facility]; Protocol Last Admin: 02/04/19 12:04 Dose: 1 applic Digoxin (Lanoxin -) 0.25 mg PO ONCE ONE Stop: 02/05/19 09:49 Diltiazem HCl (Cardizem Cd -) 120 mg PO DAILY [facility] Gabapentin (Neurontin -) 100 mg PO TID [facility] Last Admin: 02/05/19 06:15 Dose: 100 mg IV Flush (Triple Lumen Flush) 4 ml IVPUSH PRN PRN PRN Reason: Protocol Last Admin: 02/03/19 06:31 Dose: 4 ml Meropenem 1 gm/ Dextrose 100 mls @ 200 mls/hr IVPB Q12H [facility] Last Admin: 02/05/19 02:10 Dose: 200 mls/hr Metoprolol Succinate (Toprol Xl -) 50 mg PO HS [facility] Last Admin: 02/04/19 21:50 Dose: 50 mg Morphine Sulfate (Morphine Sulfate) 4 mg IVPUSH Q3H PRN PRN Reason: PAIN LEVEL 6-10 Last Admin: 02/04/19 04:58 Dose: 4 mg Nystatin (Nystop Powder -) 1 applic TP DAILY [facility] Last Admin: 02/04/19 12:06 Dose: 1 applic Ondansetron HCl (Zofran -) 4 mg PO TID PRN PRN Reason: NAUSEA Pantoprazole Sodium (Protonix Iv) 40 mg IVPUSH DAILY [facility] Last Admin: 02/04/19 12:06 Dose: 40 mg Fluticasone/Salmeterol (Advair 100mcg/50mcg -) 1 puff IH BID [facility] Last Admin: 02/04/19 21:49 Dose: 1 puff Silver Sulfadiazine (Silvadene -) 1 applic TP BID [facility] Last Admin: 02/04/19 21:49 Dose: 1 applic Tramadol HCl (Ultram -) 50 mg PO Q8H PRN PRN Reason: PAIN LEVEL 6-10 Last Admin: 02/03/19 22:46 Dose: 50 mg Warfarin Sodium (Coumadin -) 2 mg PO DAILY@1800 [facility] Last Admin: 02/04/19 17:38 Dose: 2 mg - Objective Vital Signs: Vital Signs Temperature 99.1 F 02/05/19 06:00 Pulse Rate 79 02/05/19 07:33 Respiratory Rate 20 02/05/19 06:00 Blood Pressure 96/57 L 02/05/19 06:00 O2 Sat by Pulse Oximetry (%) 96 02/05/19 07:33 Elderly sick looking F looks edematous, not in distress HEENT: facial puffiness anemia, no external trauma NECK; No JVd No BrUit CHEST: Congested equal AE no wheezes ABD: Obese, non tender EXT: Edematous with multiple echymoses [employer]: 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 Labs: CBC, BMP 02/05/19 06:20 02/05/19 06:20 INR, PTT INR 1.68 (0.83-1.09) H 02/05/19 06:20 Fibrinogen 474.0 mg/dL (238-498) 01/23/19 07:03 Problem List - Problems (1) Symptomatic anemia Code(s): D64.9 - ANEMIA, UNSPECIFIED (2) Respiratory failure Code(s): J96.90 - RESPIRATORY FAILURE, UNSP, UNSP W HYPOXIA OR HYPERCAPNIA (3) CHF (NYHA class II, ACC/AHA stage C) Code(s): I50.9 - HEART FAILURE, UNSPECIFIED (4) CKD (chronic kidney disease) Code(s): N18.9 - CHRONIC KIDNEY DISEASE, UNSPECIFIED Qualifiers: Chronic kidney disease stage: stage 4 (severe) Qualified Code(s): N18.4 - Chronic kidney disease, stage 4 (severe) (5) Persistent atrial fibrillation Code(s): I48.1 - PERSISTENT ATRIAL FIBRILLATION (6) COPD (chronic obstructive pulmonary disease) Code(s): J44.9 - CHRONIC OBSTRUCTIVE PULMONARY DISEASE, UNSPECIFIED Qualifiers: COPD type: unspecified COPD Qualified Code(s): J44.9 - Chronic obstructive pulmonary disease, unspecified (7) Thyromegaly Code(s): E01.0 - IODINE-DEFICIENCY RELATED DIFFUSE (ENDEMIC) GOITER (8) Malnutrition Code(s): E46 - UNSPECIFIED PROTEIN-CALORIE MALNUTRITION Qualifiers: Malnutrition type: protein-calorie malnutrition (9) Pressure ulcer Code(s): L89.90 - PRESSURE ULCER OF UNSPECIFIED SITE, UNSPECIFIED STAGE (10) UTI (urinary tract infection) Code(s): N39.0 - URINARY TRACT INFECTION, SITE NOT SPECIFIED (11) Goals of care, counseling/discussion Code(s): Z71.89 - OTHER SPECIFIED COUNSELING Assessment/Plan Patient remained hemodynamically stable but over all weak and de-conditioned, making good amount of urine but still edematouus Plan: UTI with sepsis on Meropenema a3 moreday wo;; DC INR subtherapeutic cont Coumadin 2 mg Low grade fever 14 stool C Diff ag + F/U ID recommendations. Discussed with family Goals of care and ADR Anasarca discussed with Cardiology consult will order Alow Salt albumin followed by IV lasix 40 IVSS with Zaroxolyn 2.5 mg F/U BMP and reponse, high protein DIET Worsening anemia 2 units RBC transfusion in between lasix 40 mg IVSS Also discussed rate control strategy will wean off Diltizem yesterday added Digoxine o.25 yesterday F/U level tomorrow Family gatheringon Friday mayra discuss ADR and Code status Prognosis poor explained to family
--- NOTE | 2019-02-05 10:08 | PN ---
Progress Note (short form) - Note Progress Note: Please refer to recent consult. 88 year old -Cypriot female was readmitted with progressive shortness of breath requiring high flow oxygen , also found to have severe anemia with pancytopenia which was attributed to the use of methimazole. Patient has decubiti ulcers, was found to be septic with a urinary tract infection. Patient continues to have pedal edema. She is more alert and states her appetite is improving and has had dinner for the past 3 days. Since receiving albumin followed by diuretics there is a significant decrease in pedal edema. Patient still has a cough associated with stridor. Patient is scheduled to receive packed cells because of progressive anemia. Active Medications Acetaminophen (Tylenol -) 650 mg PO QID PRN PRN Reason: PAIN 1-3 Last Admin: 02/02/19 23:01 Dose: 650 mg Albuterol/Ipratropium (Duoneb -) 1 amp NEB RQ4H [facility] Last Admin: 02/05/19 07:31 Dose: 1 amp Bacitracin (Bacitracin -) 1 applic TP DAILY [facility] Last Admin: 02/04/19 12:06 Dose: 1 applic Collagenase (Santyl -) 1 applic TP DAILY [facility]; Protocol Last Admin: 02/04/19 12:04 Dose: 1 applic Diltiazem HCl (Cardizem Cd -) 120 mg PO DAILY [facility] Gabapentin (Neurontin -) 100 mg PO TID [facility] Last Admin: 02/05/19 06:15 Dose: 100 mg IV Flush (Triple Lumen Flush) 4 ml IVPUSH PRN PRN PRN Reason: Protocol Last Admin: 02/03/19 06:31 Dose: 4 ml Meropenem 1 gm/ Dextrose 100 mls @ 200 mls/hr IVPB Q12H [facility] Last Admin: 02/05/19 02:10 Dose: 200 mls/hr Metoprolol Succinate (Toprol Xl -) 50 mg PO HS [facility] Last Admin: 02/04/19 21:50 Dose: 50 mg Morphine Sulfate (Morphine Sulfate) 4 mg IVPUSH Q3H PRN PRN Reason: PAIN LEVEL 6-10 Last Admin: 02/04/19 04:58 Dose: 4 mg Nystatin (Nystop Powder -) 1 applic TP DAILY [facility] Last Admin: 02/04/19 12:06 Dose: 1 applic Ondansetron HCl (Zofran -) 4 mg PO TID PRN PRN Reason: NAUSEA Pantoprazole Sodium (Protonix Iv) 40 mg IVPUSH DAILY [facility] Last Admin: 02/04/19 12:06 Dose: 40 mg Fluticasone/Salmeterol (Advair 100mcg/50mcg -) 1 puff IH BID [facility] Last Admin: 02/04/19 21:49 Dose: 1 puff Silver Sulfadiazine (Silvadene -) 1 applic TP BID [facility] Last Admin: 02/04/19 21:49 Dose: 1 applic Tramadol HCl (Ultram -) 50 mg PO Q8H PRN PRN Reason: PAIN LEVEL 6-10 Last Admin: 02/03/19 22:46 Dose: 50 mg Warfarin Sodium (Coumadin -) 2 mg PO DAILY@1800 [facility] Last Admin: 02/04/19 17:38 Dose: 2 mg Last Vital Signs Temp Pulse Resp BP Pulse Ox 99.1 F 79 20 96/57 L 96 02/05/19 06:00 02/05/19 07:33 02/05/19 06:00 02/05/19 06:00 02/05/19 07:33 NECK: Supple, positive hepatojugular reflux, carotids were 2+. No bruits were appreciated. HEART: PMI was not localized. Heart sounds were distant, partially obscured by coarse breath sounds. No murmur or gallops were heard. LUNGS: Scattered expiratory wheezing involving the left lung. ABDOMEN; soft, protuberant and nontender. No hepatosplenomegaly or palpable masses were appreciated. EXTREMITIES: 1-2+ right and 2+ left pitting edema. CBC, BMP 02/05/19 06:20 02/05/19 06:20 Impression: 1. Persistent cough associated with intermittent stridor: a). Secondary to trachael compression. b). COPD/bronchospastic pulmonary disease. 2. Recent urinary tract infection, 3. Coronary artery disease, angina pectoris, presently stable. 4. 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 5. Multinodular goiter/thyromegaly. 6. History of thyrotoxicosis. 7. Severe anemia. 8. Chronic kidney disease. 9. Pedal edema, resolving. 10. Decubitus. Recommendations: 1. Consider splitting the unit of blood and giving Lasix after she has received half a unit. 2. She may require further infusion of salt-poor albumin followed by IV Lasix if edema persists. 3. Close followup of renal function. 4. Followup x-ray chest PA and lateral. 5. Evaluation of decubitus ulcer. 6. Consider bedside physical therapy. Prognosis: Critical. Micky Hawkins MD.
[2019-02-05] MEDS ORDERED: METOLAZONE 2.5 MG TABLET (FP) PO ONE (10:45)
[2019-02-05] MEDS: PANTOPRAZOLE SODIUM 40 MG VIAL IVPUSH SCH (10:52)
[2019-02-05] MEDS: FLUTICASONE/SALMETEROL 100 MCG/50 MCG DISKUS IH SCH ×2 (10:55→21:11)
[2019-02-05] MEDS: BACITRACIN 15 GM TUBE TOPICAL OINTMENT TP SCH (10:56)
[2019-02-05] MEDS: NYSTATIN POWDER 100,000 UNITS/GM - 15 GM TOPICAL POWDER TP SCH (10:56)
[2019-02-05] MEDS: COLLAGENASE CLOSTRIDIUM HIST. 30 GRAMS TUBE TP SCH (10:56)
[2019-02-05] MEDS: SILVER SULFADIAZINE 1% TOP CREAM 400 GM JAR TP SCH ×2 (10:57→21:11)
--- NOTE | 2019-02-05 14:09 | PN ---
Progress Note (short form) - Note Progress Note: Appears weak. Drowsy but easily arousable. Mildly tachypneic on NC O2 but in NAD. Tolerating NIPPV support overnight and ORN. Denies CP. SOB overall improving. Intake & Output 02/02/19 02/03/19 02/04/19 02/05/19 23:59 23:59 23:59 23:59 Intake Total 627 886 5506 300 Output Total 1200 2000 1700 1500 Balance -313 -1400 -363 -1200 Last Vital Signs Temp Pulse Resp BP Pulse Ox 98.7 F 77 20 136/57 L 90 L 02/05/19 13:58 02/05/19 13:58 02/05/19 13:58 02/05/19 13:58 02/05/19 09:00 Active Medications Acetaminophen (Tylenol -) 650 mg PO QID PRN PRN Reason: PAIN 1-3 Last Admin: 02/02/19 23:01 Dose: 650 mg Albuterol/Ipratropium (Duoneb -) 1 amp NEB RQ4H [facility] Last Admin: 02/05/19 07:31 Dose: 1 amp Bacitracin (Bacitracin -) 1 applic TP DAILY [facility] Last Admin: 02/05/19 10:56 Dose: 1 applic Collagenase (Santyl -) 1 applic TP DAILY [facility]; Protocol Last Admin: 02/05/19 10:56 Dose: Not Given Diltiazem HCl (Cardizem Cd -) 120 mg PO DAILY [facility] Last Admin: 02/05/19 10:54 Dose: 120 mg Gabapentin (Neurontin -) 100 mg PO TID [facility] Last Admin: 02/05/19 06:15 Dose: 100 mg IV Flush (Triple Lumen Flush) 4 ml IVPUSH PRN PRN PRN Reason: Protocol Last Admin: 02/03/19 06:31 Dose: 4 ml Meropenem 1 gm/ Dextrose 100 mls @ 200 mls/hr IVPB Q12H [facility] Last Admin: 02/05/19 02:10 Dose: 200 mls/hr Metoprolol Succinate (Toprol Xl -) 50 mg PO HS [facility] Last Admin: 02/04/19 21:50 Dose: 50 mg Morphine Sulfate (Morphine Sulfate) 4 mg IVPUSH Q3H PRN PRN Reason: PAIN LEVEL 6-10 Last Admin: 02/04/19 04:58 Dose: 4 mg Nystatin (Nystop Powder -) 1 applic TP DAILY [facility] Last Admin: 02/05/19 10:56 Dose: 1 applic Ondansetron HCl (Zofran -) 4 mg PO TID PRN PRN Reason: NAUSEA Pantoprazole Sodium (Protonix Iv) 40 mg IVPUSH DAILY [facility] Last Admin: 02/05/19 10:52 Dose: 40 mg Fluticasone/Salmeterol (Advair 100mcg/50mcg -) 1 puff IH BID [facility] Last Admin: 02/05/19 10:55 Dose: 1 puff Silver Sulfadiazine (Silvadene -) 1 applic TP BID [facility] Last Admin: 02/05/19 10:57 Dose: 1 applic Tramadol HCl (Ultram -) 50 mg PO Q8H PRN PRN Reason: PAIN LEVEL 6-10 Last Admin: 02/03/19 22:46 Dose: 50 mg Warfarin Sodium (Coumadin -) 2 mg PO DAILY@1800 [facility] Last Admin: 02/04/19 17:38 Dose: 2 mg Gen: weak appearing, NAD Heart: RRR Lung: scattered rhonchi Abd: soft, nontender Ext: no edema Laboratory Results - last 24 hr 02/05/19 02/05/19 02/05/19 06:20 06:20 06:20 WBC 14.8 H Corrected WBC (auto) 13.33 RBC 2.30 L Hgb 6.9 L* Hct 21.6 L MCV 93.7 MCH 30.1 MCHC 32.1 RDW 20.6 H Plt Count 305 MPV 8.6 Absolute Neuts (auto) 11.4 H Neutrophils % 77.5 Lymphocytes % 14.3 Monocytes % 6.9 Eosinophils % 0.3 Basophils % 1.0 Nucleated RBC % 11 H* PT with INR 19.90 H INR 1.68 H Sodium 141 Potassium 4.8 Chloride 103 Carbon Dioxide 31 Anion Gap 7 L BUN 42.6 H Creatinine 1.5 H Est GFR (CKD-EPI)AfAm 35.43 Est GFR (CKD-EPI)NonAf 30.57 Random Glucose 86 Calcium 9.2 Blood Type Antibody Screen Crossmatch 02/05/19 11:30 WBC Corrected WBC (auto) RBC Hgb Hct MCV MCH MCHC RDW Plt Count MPV Absolute Neuts (auto) Neutrophils % Lymphocytes % Monocytes % Eosinophils % Basophils % Nucleated RBC % PT with INR INR Sodium Potassium Chloride Carbon Dioxide Anion Gap BUN Creatinine Est GFR (CKD-EPI)AfAm Est GFR (CKD-EPI)NonAf Random Glucose Calcium Blood Type O POSITIVE Antibody Screen Negative Crossmatch See Detail ASSESSMENT AND PLAN: Acute on Chronic Hypoxic Respiratory Failure UTI Sacral Decubitus Infection Gram Positive Bacteremia Sepsis COPD Atrial Fibrillation LV Systolic/Diastolic Dysfunction CKD Pancytopenia Anemia requiring PRBC transfusions Goiter with Tracheal compression - ABX per ID - Local wound care per surgery - monitor CBC - O2 to keep SpO2 >90% - NIPPV needed to assist in work of breathing - inhaled bronchodilators - rate control - GOC being discussed Dr Amaya
[2019-02-05] MEDS ORDERED: FUROSEMIDE 40 MG/4 ML INJECTABLE VIAL IVPUSH ONE (16:00)
[2019-02-05 16:34] LABS: ANISOCYTOSIS 1+; MACROCYTOSIS 1+; PLATELET ESTIMATE NORMAL; TOXIC GRANULATION 1+
[2019-02-05] MEDS: WARFARIN NA 2 MG TABLET (UD) PO SCH (17:03)
[2019-02-05] MEDS: ACETAMINOPHEN 325 MG TABLET (FP) PO PRN (22:45)
[2019-02-06] MEDS ORDERED: MEROPENEM 1 GM VIAL (RESTRICTED TO ID) IVPB ONE ×2 (00:45→14:17)
[2019-02-06] MEDS ORDERED: DEXTROSE 5%-WATER 100 ML IVPB ONE ×2 (00:46→14:17)
[2019-02-06] MEDS: MEROPENEM 1 GM in DEXTROSE 5%-WATER 100 ML IVPB SCH ×2 (01:08→14:20)
[2019-02-06] MEDS: ALBUTEROL SO4 2.5/IPRATROPIUM 0.5 INH SOL 3 ML VIAL.NEB. NEB SCH ×6 (04:30→23:13)
[2019-02-06] MEDS: GABAPENTIN 100 MG CAPSULE (FP) PO SCH ×3 (05:54→23:09)
[2019-02-06 08:21] LABS: BLOOD UREA NITROGEN 40.8 mg/dL (7-18); CALCIUM 9.2 mg/dL (8.5-10.1); CREATININE 1.6 mg/dL (0.55-1.3); POTASSIUM 4.6 mmol/L (3.5-5.1)
[2019-02-06 08:30] LABS: INR 1.81 (0.83-1.09); PROTHROMBIN TIME (PATIENT) 21.5 SEC (9.7-13.0)
--- NOTE | 2019-02-06 10:14 | PN ---
Progress Note, Physician Chief Complaint: Not in acute distress c/o body pain, looks tired - Current Medication List Current Medications: Active Medications Acetaminophen (Tylenol -) 650 mg PO QID PRN PRN Reason: PAIN 1-3 Last Admin: 02/05/19 22:45 Dose: 650 mg Albuterol/Ipratropium (Duoneb -) 1 amp NEB RQ4H [facility] Last Admin: 02/06/19 09:00 Dose: 1 amp Bacitracin (Bacitracin -) 1 applic TP DAILY [facility] Last Admin: 02/05/19 10:56 Dose: 1 applic Collagenase (Santyl -) 1 applic TP DAILY [facility]; Protocol Last Admin: 02/05/19 10:56 Dose: Not Given Digoxin (Lanoxin -) 0.125 mg PO DAILY [facility] Diltiazem HCl (Cardizem Cd -) 120 mg PO DAILY [facility] Last Admin: 02/05/19 10:54 Dose: 120 mg Furosemide (Lasix Injection -) 40 mg IVPUSH DAILY [facility] Gabapentin (Neurontin -) 100 mg PO TID [facility] Last Admin: 02/06/19 05:54 Dose: 100 mg IV Flush (Triple Lumen Flush) 4 ml IVPUSH PRN PRN PRN Reason: Protocol Last Admin: 02/03/19 06:31 Dose: 4 ml Meropenem 1 gm/ Dextrose 100 mls @ 200 mls/hr IVPB Q12H [facility] Last Admin: 02/06/19 01:08 Dose: 200 mls/hr Metolazone (Zaroxolyn -) 2.5 mg PO ONCE ONE Stop: 02/06/19 10:13 Metoprolol Succinate (Toprol Xl -) 50 mg PO HS [facility] Last Admin: 02/05/19 21:11 Dose: 50 mg Morphine Sulfate (Morphine Sulfate) 4 mg IVPUSH Q3H PRN PRN Reason: PAIN LEVEL 6-10 Last Admin: 02/04/19 04:58 Dose: 4 mg Nystatin (Nystop Powder -) 1 applic TP DAILY [facility] Last Admin: 02/05/19 10:56 Dose: 1 applic Ondansetron HCl (Zofran -) 4 mg PO TID PRN PRN Reason: NAUSEA Pantoprazole Sodium (Protonix Iv) 40 mg IVPUSH DAILY [facility] Last Admin: 02/05/19 10:52 Dose: 40 mg Fluticasone/Salmeterol (Advair 100mcg/50mcg -) 1 puff IH BID [facility] Last Admin: 02/05/19 21:11 Dose: 1 puff Silver Sulfadiazine (Silvadene -) 1 applic TP BID [facility] Last Admin: 02/05/19 21:11 Dose: 1 applic Tramadol HCl (Ultram -) 50 mg PO Q8H PRN PRN Reason: PAIN LEVEL 6-10 Last Admin: 02/03/19 22:46 Dose: 50 mg Warfarin Sodium (Coumadin -) 2 mg PO DAILY@1800 [facility] Last Admin: 02/05/19 17:03 Dose: 2 mg - Objective Vital Signs: Vital Signs Temperature 98.6 F 02/06/19 06:15 Pulse Rate 100 H 02/06/19 06:15 Respiratory Rate 20 02/06/19 06:15 Blood Pressure 102/41 L 02/06/19 06:15 O2 Sat by Pulse Oximetry (%) 95 02/06/19 02:41 Elderly sick looking F looks edematous, not in distress HEENT: facial puffiness anemia, no external trauma NECK; No JVd No BrUit CHEST: Congested equal AE no wheezes ABD: Obese, non tender EXT: Edematous with multiple echymoses [employer]: 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 Labs: CBC, BMP 02/05/19 06:20 02/06/19 06:30 INR, PTT INR 1.81 (0.83-1.09) H 02/06/19 06:30 Fibrinogen 474.0 mg/dL (238-498) 01/23/19 07:03 Problem List - Problems (1) Symptomatic anemia Code(s): D64.9 - ANEMIA, UNSPECIFIED (2) Respiratory failure Code(s): J96.90 - RESPIRATORY FAILURE, UNSP, UNSP W HYPOXIA OR HYPERCAPNIA (3) CHF (NYHA class II, ACC/AHA stage C) Code(s): I50.9 - HEART FAILURE, UNSPECIFIED (4) CKD (chronic kidney disease) Code(s): N18.9 - CHRONIC KIDNEY DISEASE, UNSPECIFIED Qualifiers: Chronic kidney disease stage: stage 4 (severe) Qualified Code(s): N18.4 - Chronic kidney disease, stage 4 (severe) (5) Persistent atrial fibrillation Code(s): I48.1 - PERSISTENT ATRIAL FIBRILLATION (6) COPD (chronic obstructive pulmonary disease) Code(s): J44.9 - CHRONIC OBSTRUCTIVE PULMONARY DISEASE, UNSPECIFIED Qualifiers: COPD type: unspecified COPD Qualified Code(s): J44.9 - Chronic obstructive pulmonary disease, unspecified (7) Thyromegaly Code(s): E01.0 - IODINE-DEFICIENCY RELATED DIFFUSE (ENDEMIC) GOITER (8) Malnutrition Code(s): E46 - UNSPECIFIED PROTEIN-CALORIE MALNUTRITION Qualifiers: Malnutrition type: protein-calorie malnutrition (9) Pressure ulcer Code(s): L89.90 - PRESSURE ULCER OF UNSPECIFIED SITE, UNSPECIFIED STAGE (10) UTI (urinary tract infection) Code(s): N39.0 - URINARY TRACT INFECTION, SITE NOT SPECIFIED (11) Goals of care, counseling/discussion Code(s): Z71.89 - OTHER SPECIFIED COUNSELING Assessment/Plan Patient remained hemodynamically stable but over all weak and de-conditioned, making good amount of urine but still edematouus Plan: UTI with sepsis on Meropenam will complete today INR subtherapeutic cont Coumadin 2 mg Low grade fever TWBC 14 stool C Diff ag + F/U ID recommendations. Anasarca :discussed with Cardiology: IV lasix 40 IVSS with Zaroxolyn 2.5 mg F/ U BMP and reponse, high protein DIET Worsening anemia : Recived 2 units RBC transfusion in between lasix 40 mg IVSS Discussed rate control strategy with cardiology now off Diltizem, Cont Digoxine 0.125 F/U Dig leverl Discussed with family Goals of care and ADR, Family gathering Friday mayra discuss ADR and Code status Prognosis poor explained to family
[2019-02-06] MEDS ORDERED: METOLAZONE 2.5 MG TABLET (FP) PO ONE (10:30)
[2019-02-06] MEDS: SILVER SULFADIAZINE 1% TOP CREAM 400 GM JAR TP SCH ×2 (10:44→23:08)
[2019-02-06] MEDS: PANTOPRAZOLE SODIUM 40 MG VIAL IVPUSH SCH (10:44)
[2019-02-06] MEDS: NYSTATIN POWDER 100,000 UNITS/GM - 15 GM TOPICAL POWDER TP SCH (10:45)
[2019-02-06] MEDS: FLUTICASONE/SALMETEROL 100 MCG/50 MCG DISKUS IH SCH ×2 (10:46→23:10)
[2019-02-06] MEDS: BACITRACIN 15 GM TUBE TOPICAL OINTMENT TP SCH (10:46)
[2019-02-06] MEDS: COLLAGENASE CLOSTRIDIUM HIST. 30 GRAMS TUBE TP SCH (10:46)
--- NOTE | 2019-02-06 11:22 | PN ---
Progress Note (short form) - Note Progress Note: Appears weak. Drowsy but easily arousable. Alternating between NC O2 and NIPPV support. Denies CP. SOB overall improving. Intake & Output 02/03/19 02/04/19 02/05/19 02/06/19 23:59 23:59 23:59 23:59 Intake Total 600 8540 979 2981 Output Total 1999 1700 2200 400 Balance -1400 -363 -1900 637 Last Vital Signs Temp Pulse Resp BP Pulse Ox 98.6 F 100 H 20 102/41 L 95 02/06/19 06:15 02/06/19 06:15 02/06/19 06:15 02/06/19 06:15 02/06/19 02:41 Active Medications Acetaminophen (Tylenol -) 650 mg PO QID PRN PRN Reason: PAIN 1-3 Last Admin: 02/05/19 22:45 Dose: 650 mg Albuterol/Ipratropium (Duoneb -) 1 amp NEB RQ4H [facility] Last Admin: 02/06/19 09:00 Dose: 1 amp Bacitracin (Bacitracin -) 1 applic TP DAILY [facility] Last Admin: 02/06/19 10:46 Dose: 1 applic Collagenase (Santyl -) 1 applic TP DAILY [facility]; Protocol Last Admin: 02/06/19 10:46 Dose: 1 applic Digoxin (Lanoxin -) 0.125 mg PO DAILY [facility] Furosemide (Lasix Injection -) 40 mg IVPUSH DAILY [facility] Gabapentin (Neurontin -) 100 mg PO TID [facility] Last Admin: 02/06/19 05:54 Dose: 100 mg IV Flush (Triple Lumen Flush) 4 ml IVPUSH PRN PRN PRN Reason: Protocol Last Admin: 02/03/19 06:31 Dose: 4 ml Meropenem 1 gm/ Dextrose 100 mls @ 200 mls/hr IVPB Q12H [facility] Last Admin: 02/06/19 01:08 Dose: 200 mls/hr Metoprolol Succinate (Toprol Xl -) 50 mg PO HS [facility] Last Admin: 02/05/19 21:11 Dose: 50 mg Morphine Sulfate (Morphine Sulfate) 4 mg IVPUSH Q3H PRN PRN Reason: PAIN LEVEL 6-10 Last Admin: 02/04/19 04:58 Dose: 4 mg Nystatin (Nystop Powder -) 1 applic TP DAILY [facility] Last Admin: 02/06/19 10:45 Dose: 1 applic Ondansetron HCl (Zofran -) 4 mg PO TID PRN PRN Reason: NAUSEA Pantoprazole Sodium (Protonix Iv) 40 mg IVPUSH DAILY [facility] Last Admin: 02/06/19 10:44 Dose: 40 mg Fluticasone/Salmeterol (Advair 100mcg/50mcg -) 1 puff IH BID [facility] Last Admin: 02/06/19 10:46 Dose: 1 puff Silver Sulfadiazine (Silvadene -) 1 applic TP BID [facility] Last Admin: 02/06/19 10:44 Dose: 1 applic Tramadol HCl (Ultram -) 50 mg PO Q8H PRN PRN Reason: PAIN LEVEL 6-10 Last Admin: 02/03/19 22:46 Dose: 50 mg Warfarin Sodium (Coumadin -) 2 mg PO DAILY@1800 [facility] Last Admin: 02/05/19 17:03 Dose: 2 mg Gen: weak appearing, NAD Heart: RRR Lung: scattered rhonchi Abd: soft, nontender Ext: no edema Laboratory Results - last 24 hr 02/05/19 02/05/19 02/06/19 06:20 11:30 06:30 Neutrophils % (Manual) 72.7 Band Neutrophils % 2.0 Lymphocytes % (Manual) 10.1 D Monocytes % (Manual) 3 L Eosinophils % (Manual) 0.0 Basophils % (Manual) 2.0 D Myelocytes % (Man) 9 H D Promyelocytes % (Man) 0 Blast Cells % (Manual) 0 Metamyelocytes 0 D Hypochromia 0 Toxic Granulation 1+ Platelet Estimate Normal Polychromasia 1+ Poikilocytosis 1+ Basophilic Stippling 1+ Anisocytosis 1+ Microcytosis 0 Macrocytosis 1+ PT with INR 21.50 H INR 1.81 H Sodium Potassium Chloride Carbon Dioxide Anion Gap BUN Creatinine Est GFR (CKD-EPI)AfAm Est GFR (CKD-EPI)NonAf Random Glucose Calcium Digoxin Blood Type O POSITIVE Antibody Screen Negative Crossmatch See Detail 02/06/19 06:30 Neutrophils % (Manual) Band Neutrophils % Lymphocytes % (Manual) Monocytes % (Manual) Eosinophils % (Manual) Basophils % (Manual) Myelocytes % (Man) Promyelocytes % (Man) Blast Cells % (Manual) Metamyelocytes Hypochromia Toxic Granulation Platelet Estimate Polychromasia Poikilocytosis Basophilic Stippling Anisocytosis Microcytosis Macrocytosis PT with INR INR Sodium 142 Potassium 4.6 Chloride 103 Carbon Dioxide 33 H Anion Gap 6 L BUN 40.8 H Creatinine 1.6 H Est GFR (CKD-EPI)AfAm 32.77 Est GFR (CKD-EPI)NonAf 28.27 Random Glucose 80 Calcium 9.2 Digoxin 1.29 Blood Type Antibody Screen Crossmatch ASSESSMENT AND PLAN: Acute on Chronic Hypoxic Respiratory Failure UTI Sacral Decubitus Infection Gram Positive Bacteremia Sepsis COPD Atrial Fibrillation LV Systolic/Diastolic Dysfunction CKD Pancytopenia Anemia requiring PRBC transfusions Goiter with Tracheal compression (?) 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
[2019-02-06] MEDS: DIGOXIN 0.125 MG TABLET (FP) PO SCH (11:25)
[2019-02-06] MEDS: ESCITALOPRAM OXALATE 10 MG TABLET (FP) PO SCH (11:27)
[2019-02-06 12:00] LABS: BASO % 0.7 % (0-2.0); EOS % 0.2 % (0-4.5); HEMOGLOBIN 10.5 GM/dL (10.7-15.3); LYMPH % 12.5 % (8-40); MCH 29.8 pg (25.7-33.7); MCHC 32.9 g/dl (32.0-36.0); MEAN CELL VOLUME 90.6 fl (80-96); MEAN PLT VOLUME 8.1 fl (7.5-11.1); MONO % 6.1 % (3.8-10.2); NEUT % 80.5 % (42.8-82.8); PLATELET COUNT 341 K/MM3 (134-434); RBC 3.54 M/mm3 (3.60-5.2); RDW 19.3 % (11.6-15.6); WHITE BLOOD COUNT 17.4 K/mm3 (4.0-10.0)
[2019-02-06] MEDS: FUROSEMIDE 40 MG/4 ML INJECTABLE VIAL IVPUSH SCH (12:12)
[2019-02-06] MEDS: MORPHINE SULFATE 2 MG/ML VIAL IVPUSH PRN ×2 (14:20→23:09)
[2019-02-06] MEDS: POLYETHYLENE GLYCOL 3350 119 GM BTL PO SCH (14:46)
--- NOTE | 2019-02-06 15:53 | PN ---
Progress Note, Physician History of Present Illness: Pt seen and examined, chart reviewed. Events noted. s/p PRBC transfusion yesterday. Intermittent low grade fevers Tmax 99.8F but afebrile today. c/o constipation but denies abd pain/n/v. Denies CP or SOB, no cough noted at bedside. - Current Medication List Current Medications: Active Medications Acetaminophen (Tylenol -) 650 mg PO QID PRN PRN Reason: PAIN 1-3 Last Admin: 02/05/19 22:45 Dose: 650 mg Albuterol/Ipratropium (Duoneb -) 1 amp NEB RQ4H [facility] Last Admin: 02/06/19 15:29 Dose: 1 amp Bacitracin (Bacitracin -) 1 applic TP DAILY [facility] Last Admin: 02/06/19 10:46 Dose: 1 applic Collagenase (Santyl -) 1 applic TP DAILY [facility]; Protocol Last Admin: 02/06/19 10:46 Dose: 1 applic Digoxin (Lanoxin -) 0.125 mg PO DAILY [facility] Last Admin: 02/06/19 11:25 Dose: 0.125 mg Escitalopram Oxalate (Lexapro -) 5 mg PO DAILY [facility] Last Admin: 02/06/19 11:27 Dose: 5 mg Furosemide (Lasix Injection -) 40 mg IVPUSH DAILY [facility] Last Admin: 02/06/19 12:12 Dose: 40 mg Gabapentin (Neurontin -) 100 mg PO TID [facility] Last Admin: 02/06/19 14:20 Dose: 100 mg IV Flush (Triple Lumen Flush) 4 ml IVPUSH PRN PRN PRN Reason: Protocol Last Admin: 02/03/19 06:31 Dose: 4 ml Meropenem 1 gm/ Dextrose 100 mls @ 200 mls/hr IVPB Q12H [facility] Last Admin: 02/06/19 14:20 Dose: 200 mls/hr Metoprolol Succinate (Toprol Xl -) 50 mg PO HS [facility] Last Admin: 02/05/19 21:11 Dose: 50 mg Morphine Sulfate (Morphine Sulfate) 4 mg IVPUSH Q3H PRN PRN Reason: PAIN LEVEL 6-10 Last Admin: 02/06/19 14:20 Dose: 4 mg Nystatin (Nystop Powder -) 1 applic TP DAILY [facility] Last Admin: 02/06/19 10:45 Dose: 1 applic Ondansetron HCl (Zofran -) 4 mg PO TID PRN PRN Reason: NAUSEA Pantoprazole Sodium (Protonix Iv) 40 mg IVPUSH DAILY [facility] Last Admin: 02/06/19 10:44 Dose: 40 mg Polyethylene Glycol (Miralax (For Daily Use) -) 17 gm PO DAILY [facility] Last Admin: 02/06/19 14:46 Dose: 17 grams Fluticasone/Salmeterol (Advair 100mcg/50mcg -) 1 puff IH BID [facility] Last Admin: 02/06/19 10:46 Dose: 1 puff Silver Sulfadiazine (Silvadene -) 1 applic TP BID [facility] Last Admin: 02/06/19 10:44 Dose: 1 applic Tramadol HCl (Ultram -) 50 mg PO Q8H PRN PRN Reason: PAIN LEVEL 6-10 Last Admin: 02/03/19 22:46 Dose: 50 mg Warfarin Sodium (Coumadin -) 2 mg PO DAILY@1800 [facility] Last Admin: 02/05/19 17:03 Dose: 2 mg - Objective Vital Signs: Vital Signs Temperature 97.4 F L 02/06/19 14:13 Pulse Rate 88 02/06/19 14:13 Respiratory Rate 20 02/06/19 14:13 Blood Pressure 120/56 L 02/06/19 14:13 O2 Sat by Pulse Oximetry (%) 90 L 02/06/19 09:00 Constitutional: Yes: No Distress, Other (weak) Eyes: Yes: Conjunctiva Clear Cardiovascular: Yes: Regular Rate and Rhythm Respiratory: Yes: Other (no r/r/w) Gastrointestinal: Yes: Normal Bowel Sounds, Soft Edema: Yes Integumentary: Yes: Pressure Ulcer (no purulence) Neurological: Yes: Alert, Weakness Labs: CBC, BMP 02/06/19 11:30 02/06/19 06:30 INR, PTT INR 1.81 (0.83-1.09) H 02/06/19 06:30 Fibrinogen 474.0 mg/dL (238-498) 01/23/19 07:03 Microbiology 01/31/19 Unknown Stool Clostridioides difficile Antigen - Final 01/31/19 Unknown Stool Clostridioides difficile Toxin Assay - Final 01/27/19 06:20 Blood - Arterial Blood Culture - Final NO GROWTH AFTER 5 DAYS INCUBATION 01/27/19 02:42 Blood - Arterial Blood Culture - Final NO GROWTH AFTER 5 DAYS INCUBATION 01/28/19 13:43 Catheter Tip - Catheter - Other Foreign Body Culture - Final NO GROWTH AFTER 48 HOURS INCUBATION 01/24/19 17:54 Blood - Peripheral Venous Blood Culture - Final NO GROWTH AFTER 5 DAYS INCUBATION 01/24/19 17:54 Blood - Peripheral Venous Blood Culture - Final NO GROWTH AFTER 5 DAYS INCUBATION 01/22/19 20:05 Blood - Peripheral Venous Blood Culture - Final NO GROWTH AFTER 5 DAYS INCUBATION 01/22/19 20:05 Blood - Peripheral Venous Blood Culture - Final Staphylococcus Epidermidis 01/23/19 02:45 Urine - Urine Gibbons Urine Culture - Final Escherichia Coli [employer] 01/23/19 02:45 Urine - Urine Gibbons Legionella Antigen - Final 01/23/19 02:45 Urine - Urine Gibbons Streptococcus pneumoniae Antigen (M - Final Problem List - Problems (1) Respiratory failure Code(s): J96.90 - RESPIRATORY FAILURE, UNSP, UNSP W HYPOXIA OR HYPERCAPNIA (2) SOB (shortness of breath) Code(s): R06.02 - SHORTNESS OF BREATH (3) Symptomatic anemia Code(s): D64.9 - ANEMIA, UNSPECIFIED (4) Acute on chronic renal failure Code(s): N17.9 - ACUTE KIDNEY FAILURE, UNSPECIFIED; N18.9 - CHRONIC KIDNEY DISEASE, UNSPECIFIED (5) Afib Code(s): I48.91 - UNSPECIFIED ATRIAL FIBRILLATION Qualifiers: Atrial fibrillation type: chronic Qualified Code(s): I48.2 - Chronic atrial fibrillation (6) CHF (NYHA class II, ACC/AHA stage C) Code(s): I50.9 - HEART FAILURE, UNSPECIFIED (7) CKD (chronic kidney disease) Code(s): N18.9 - CHRONIC KIDNEY DISEASE, UNSPECIFIED Qualifiers: Chronic kidney disease stage: stage 4 (severe) Qualified Code(s): N18.4 - Chronic kidney disease, stage 4 (severe) (8) COPD (chronic obstructive pulmonary disease) Code(s): J44.9 - CHRONIC OBSTRUCTIVE PULMONARY DISEASE, UNSPECIFIED Qualifiers: COPD type: unspecified COPD Qualified Code(s): J44.9 - Chronic obstructive pulmonary disease, unspecified (9) Hypercholesteremia Code(s): E78.00 - PURE HYPERCHOLESTEROLEMIA, UNSPECIFIED (10) Hypertension Code(s): I10 - ESSENTIAL (PRIMARY) HYPERTENSION (11) Hyperthyroidism Code(s): E05.90 - THYROTOXICOSIS, UNSP WITHOUT THYROTOXIC CRISIS OR STORM (12) Obese Code(s): E66.9 - OBESITY, UNSPECIFIED (13) Sacral decubitus ulcer, stage II Code(s): L89.152 - PRESSURE ULCER OF SACRAL REGION, STAGE 2 (14) Thyromegaly Code(s): E01.0 - IODINE-DEFICIENCY RELATED DIFFUSE (ENDEMIC) GOITER (15) Tracheal compression Code(s): J39.8 - OTHER SPECIFIED DISEASES OF UPPER RESPIRATORY TRACT (16) UTI (urinary tract infection) Code(s): N39.0 - URINARY TRACT INFECTION, SITE NOT SPECIFIED Qualifiers: Urinary tract infection type: site unspecified Hematuria presence: without hematuria Qualified Code(s): N39.0 - Urinary tract infection, site not specified Assessment/Plan 88 y.o. female with PMH of COPD on home O2, CHF, ASHD, HTN, HLD, CKD, diverticultis/ ? ischemic colitis s/p partial colectomy, s/p JW/BSO, chronic cough/persistent pulmonary infiltrates, multinodular goiter with partial tracheal compression, and anemia presents with c/o worsening SOB over the past week with subjective fever/chills. ESBL + UTI Leukocytosis Low grade fevers s/p Acute hypoxic respiratory failure Pancytopenia - resolved Severe Anemia - GI bleed Multinodular goiter with partial tracheal compression COPD CKD AFIB CHF ASHD HTN HLD -- Last blood/catheter cultures no growth -- leukocytosis ? due to GI bleed, wbc fluctuating -- C.diff toxin neg. (Ag pos.) - pt without diarrhea/abd pain -- repeat blood cultures, pt with low grade fevers -- d/c Meropenem after tomorrow's doses -- Wound care, frequent turning -- continue monitor cbc/bmp, vitals -- management of constipation
[2019-02-06 16:05] LABS: ANISOCYTOSIS 1+; MACROCYTOSIS 1+; PLATELET ESTIMATE NORMAL; TOXIC GRANULATION 1+
[2019-02-06] MEDS: WARFARIN NA 2 MG TABLET (UD) PO SCH (17:51)
[2019-02-07] MEDS ORDERED: MEROPENEM 1 GM VIAL (RESTRICTED TO ID) IVPB ONE ×2 (01:28→14:06)
[2019-02-07] MEDS ORDERED: DEXTROSE 5%-WATER 100 ML IVPB ONE ×2 (01:29→14:06)
[2019-02-07] MEDS: MEROPENEM 1 GM in DEXTROSE 5%-WATER 100 ML IVPB SCH ×2 (01:58→14:09)
[2019-02-07] MEDS: ALBUTEROL SO4 2.5/IPRATROPIUM 0.5 INH SOL 3 ML VIAL.NEB. NEB SCH ×5 (03:58→20:32)
[2019-02-07] MEDS: MORPHINE SULFATE 2 MG/ML VIAL IVPUSH PRN ×2 (05:37→23:05)
[2019-02-07] MEDS: GABAPENTIN 100 MG CAPSULE (FP) PO SCH ×3 (05:38→23:05)
[2019-02-07 07:54] LABS: BASO % 0.9 % (0-2.0); EOS % 0.6 % (0-4.5); HEMATOCRIT 30.2 % (32.4-45.2); HEMOGLOBIN 9.9 GM/dL (10.7-15.3); LYMPH % 14.5 % (8-40); MCH 29.7 pg (25.7-33.7); MCHC 32.7 g/dl (32.0-36.0); MEAN CELL VOLUME 90.9 fl (80-96); MEAN PLT VOLUME 8.2 fl (7.5-11.1); PLATELET COUNT 301 K/MM3 (134-434); RBC 3.32 M/mm3 (3.60-5.2); RDW 20.1 % (11.6-15.6); WHITE BLOOD COUNT 13.1 K/mm3 (4.0-10.0)
[2019-02-07 08:00] LABS: INR 1.86 (0.83-1.09); PROTHROMBIN TIME (PATIENT) 22.1 SEC (9.7-13.0)
[2019-02-07 08:34] LABS: ALBUMIN 1.7 g/dl (3.4-5.0); BILIRUBIN,TOTAL 0.4 mg/dL (0.2-1); BLOOD UREA NITROGEN 39.4 mg/dL (7-18); CALCIUM 9.1 mg/dL (8.5-10.1); CREATININE 1.7 mg/dL (0.55-1.3); POTASSIUM 4.7 mmol/L (3.5-5.1); TOT PROT 4.5 g/dl (6.4-8.2)
[2019-02-07] MEDS: POLYETHYLENE GLYCOL 3350 119 GM BTL PO SCH (10:53)
[2019-02-07] MEDS: ESCITALOPRAM OXALATE 10 MG TABLET (FP) PO SCH (10:53)
[2019-02-07] MEDS: BACITRACIN 15 GM TUBE TOPICAL OINTMENT TP SCH (10:53)
[2019-02-07] MEDS: PANTOPRAZOLE SODIUM 40 MG VIAL IVPUSH SCH (10:53)
[2019-02-07] MEDS: FLUTICASONE/SALMETEROL 100 MCG/50 MCG DISKUS IH SCH ×2 (10:53→23:04)
[2019-02-07] MEDS: FUROSEMIDE 40 MG/4 ML INJECTABLE VIAL IVPUSH SCH (10:53)
[2019-02-07] MEDS: COLLAGENASE CLOSTRIDIUM HIST. 30 GRAMS TUBE TP SCH (10:54)
[2019-02-07] MEDS: NYSTATIN POWDER 100,000 UNITS/GM - 15 GM TOPICAL POWDER TP SCH (10:54)
[2019-02-07] MEDS: SILVER SULFADIAZINE 1% TOP CREAM 400 GM JAR TP SCH ×2 (10:54→23:04)
[2019-02-07] MEDS: DIGOXIN 0.125 MG TABLET (FP) PO SCH (10:57)
--- NOTE | 2019-02-07 11:30 | PN ---
Progress Note, Physician Chief Complaint: Not in acute distress c/o body pain, looks tired - Current Medication List Current Medications: Active Medications Acetaminophen (Tylenol -) 650 mg PO QID PRN PRN Reason: PAIN 1-3 Last Admin: 02/05/19 22:45 Dose: 650 mg Albuterol/Ipratropium (Duoneb -) 1 amp NEB RQ4H [facility] Last Admin: 02/07/19 08:21 Dose: 1 amp Bacitracin (Bacitracin -) 1 applic TP DAILY [facility] Last Admin: 02/07/19 10:53 Dose: 1 applic Collagenase (Santyl -) 1 applic TP DAILY [facility]; Protocol Last Admin: 02/07/19 10:54 Dose: Not Given Digoxin (Lanoxin -) 0.125 mg PO DAILY [facility] Last Admin: 02/07/19 10:57 Dose: 0.125 mg Escitalopram Oxalate (Lexapro -) 5 mg PO DAILY [facility] Last Admin: 02/07/19 10:53 Dose: 5 mg Furosemide (Lasix Injection -) 40 mg IVPUSH DAILY [facility] Last Admin: 02/07/19 10:53 Dose: 40 mg Gabapentin (Neurontin -) 100 mg PO TID [facility] Last Admin: 02/07/19 05:38 Dose: 100 mg IV Flush (Triple Lumen Flush) 4 ml IVPUSH PRN PRN PRN Reason: Protocol Last Admin: 02/03/19 06:31 Dose: 4 ml Meropenem 1 gm/ Dextrose 100 mls @ 200 mls/hr IVPB Q12H [facility] Last Admin: 02/07/19 01:58 Dose: 200 mls/hr Metoprolol Succinate (Toprol Xl -) 50 mg PO HS [facility] Last Admin: 02/06/19 23:09 Dose: 50 mg Morphine Sulfate (Morphine Sulfate) 4 mg IVPUSH Q3H PRN PRN Reason: PAIN LEVEL 6-10 Last Admin: 02/06/19 23:09 Dose: 4 mg Nystatin (Nystop Powder -) 1 applic TP DAILY [facility] Last Admin: 02/07/19 10:54 Dose: 1 applic Ondansetron HCl (Zofran -) 4 mg PO TID PRN PRN Reason: NAUSEA Pantoprazole Sodium (Protonix Iv) 40 mg IVPUSH DAILY [facility] Last Admin: 02/07/19 10:53 Dose: 40 mg Polyethylene Glycol (Miralax (For Daily Use) -) 17 gm PO DAILY [facility] Last Admin: 02/07/19 10:53 Dose: 17 grams Fluticasone/Salmeterol (Advair 100mcg/50mcg -) 1 puff IH BID [facility] Last Admin: 02/07/19 10:53 Dose: 1 puff Silver Sulfadiazine (Silvadene -) 1 applic TP BID [facility] Last Admin: 02/07/19 10:54 Dose: 1 applic Tramadol HCl (Ultram -) 50 mg PO Q8H PRN PRN Reason: PAIN LEVEL 6-10 Last Admin: 02/03/19 22:46 Dose: 50 mg Warfarin Sodium (Coumadin -) 2 mg PO DAILY@1800 [facility] Last Admin: 02/06/19 17:51 Dose: 2 mg - Objective Vital Signs: Vital Signs Temperature 98.9 F 02/06/19 22:00 Pulse Rate 73 02/07/19 10:57 Respiratory Rate 20 02/06/19 22:00 Blood Pressure 139/64 02/06/19 22:00 O2 Sat by Pulse Oximetry (%) 93 L 02/07/19 10:54 Labs: CBC, BMP 02/07/19 06:21 02/07/19 06:21 INR, PTT INR 1.86 (0.83-1.09) H 02/07/19 06:21 Fibrinogen 474.0 mg/dL (238-498) 01/23/19 07:03 Problem List - Problems (1) Symptomatic anemia Code(s): D64.9 - ANEMIA, UNSPECIFIED (2) Respiratory failure Code(s): J96.90 - RESPIRATORY FAILURE, UNSP, UNSP W HYPOXIA OR HYPERCAPNIA (3) CHF (NYHA class II, ACC/AHA stage C) Code(s): I50.9 - HEART FAILURE, UNSPECIFIED (4) CKD (chronic kidney disease) Code(s): N18.9 - CHRONIC KIDNEY DISEASE, UNSPECIFIED Qualifiers: Chronic kidney disease stage: stage 4 (severe) Qualified Code(s): N18.4 - Chronic kidney disease, stage 4 (severe) (5) Persistent atrial fibrillation Code(s): I48.1 - PERSISTENT ATRIAL FIBRILLATION (6) COPD (chronic obstructive pulmonary disease) Code(s): J44.9 - CHRONIC OBSTRUCTIVE PULMONARY DISEASE, UNSPECIFIED Qualifiers: COPD type: unspecified COPD Qualified Code(s): J44.9 - Chronic obstructive pulmonary disease, unspecified (7) Thyromegaly Code(s): E01.0 - IODINE-DEFICIENCY RELATED DIFFUSE (ENDEMIC) GOITER (8) Malnutrition Code(s): E46 - UNSPECIFIED PROTEIN-CALORIE MALNUTRITION Qualifiers: Malnutrition type: protein-calorie malnutrition (9) Pressure ulcer Code(s): L89.90 - PRESSURE ULCER OF UNSPECIFIED SITE, UNSPECIFIED STAGE (10) UTI (urinary tract infection) Code(s): N39.0 - URINARY TRACT INFECTION, SITE NOT SPECIFIED (11) Goals of care, counseling/discussion Code(s): Z71.89 - OTHER SPECIFIED COUNSELING Assessment/Plan Patient remained hemodynamically stable but de-conditioned, making good amount of urine but still edematouus Plan: UTI with sepsis on Meropenam will complete today INR subtherapeutic cont Coumadin 2 mg TWBC 13.1 stool C Diff ag + F/U ID recommendations. Anasarca :discussed with Cardiology: IV lasix 40 IVSS with Zaroxolyn 2.5 mg F/ U BMP and reponse, high protein DIET Worsening anemia : Recived 2 units RBC transfusion in between lasix 40 mg IVSS , H/H remained stable Discussed rate control strategy with cardiology now off Diltizem, Cont Digoxine 0.125 F/U Dig leverl Discussed with family Goals of care and ADR, mayra discuss ADR and Code status Prognosis poor explained to family
[2019-02-07] MEDS ORDERED: METOLAZONE 2.5 MG TABLET (FP) PO ONE (12:00)
[2019-02-07 12:06] LABS: ANISOCYTOSIS 1+; MACROCYTOSIS 0; PLATELET ESTIMATE NORMAL
--- NOTE | 2019-02-07 12:21 | PN ---
Progress Note (short form) - Note Progress Note: Appears weak. More awake and interactive today. Alternating between NC O2 and NIPPV support. Denies CP. SOB feels a little better. Intake & Output 02/04/19 02/05/19 02/06/19 02/07/19 23:59 23:59 23:59 23:59 Intake Total 5134 658 0891 100 Output Total 1700 2200 2400 100 Balance -363 -1900 -1013 0 Last Vital Signs Temp Pulse Resp BP Pulse Ox 98.5 F 73 18 123/52 L 93 L 02/07/19 10:00 02/07/19 10:57 02/07/19 10:00 02/07/19 10:00 02/07/19 10:54 Active Medications Acetaminophen (Tylenol -) 650 mg PO QID PRN PRN Reason: PAIN 1-3 Last Admin: 02/05/19 22:45 Dose: 650 mg Albuterol/Ipratropium (Duoneb -) 1 amp NEB RQ4H [facility] Last Admin: 02/07/19 12:06 Dose: 1 amp Bacitracin (Bacitracin -) 1 applic TP DAILY [facility] Last Admin: 02/07/19 10:53 Dose: 1 applic Collagenase (Santyl -) 1 applic TP DAILY [facility]; Protocol Last Admin: 02/07/19 10:54 Dose: Not Given Digoxin (Lanoxin -) 0.125 mg PO DAILY [facility] Last Admin: 02/07/19 10:57 Dose: 0.125 mg Escitalopram Oxalate (Lexapro -) 5 mg PO DAILY [facility] Last Admin: 02/07/19 10:53 Dose: 5 mg Furosemide (Lasix Injection -) 60 mg IVPUSH DAILY [facility] Gabapentin (Neurontin -) 100 mg PO TID [facility] Last Admin: 02/07/19 05:38 Dose: 100 mg IV Flush (Triple Lumen Flush) 4 ml IVPUSH PRN PRN PRN Reason: Protocol Last Admin: 02/03/19 06:31 Dose: 4 ml Meropenem 1 gm/ Dextrose 100 mls @ 200 mls/hr IVPB Q12H [facility] Last Admin: 02/07/19 01:58 Dose: 200 mls/hr Metoprolol Succinate (Toprol Xl -) 50 mg PO HS [facility] Last Admin: 02/06/19 23:09 Dose: 50 mg Morphine Sulfate (Morphine Sulfate) 4 mg IVPUSH Q3H PRN PRN Reason: PAIN LEVEL 6-10 Last Admin: 02/06/19 23:09 Dose: 4 mg Nystatin (Nystop Powder -) 1 applic TP DAILY [facility] Last Admin: 02/07/19 10:54 Dose: 1 applic Ondansetron HCl (Zofran -) 4 mg PO TID PRN PRN Reason: NAUSEA Pantoprazole Sodium (Protonix Iv) 40 mg IVPUSH DAILY [facility] Last Admin: 02/07/19 10:53 Dose: 40 mg Polyethylene Glycol (Miralax (For Daily Use) -) 17 gm PO DAILY [facility] Last Admin: 02/07/19 10:53 Dose: 17 grams Fluticasone/Salmeterol (Advair 100mcg/50mcg -) 1 puff IH BID [facility] Last Admin: 02/07/19 10:53 Dose: 1 puff Silver Sulfadiazine (Silvadene -) 1 applic TP BID [facility] Last Admin: 02/07/19 10:54 Dose: 1 applic Tramadol HCl (Ultram -) 50 mg PO Q8H PRN PRN Reason: PAIN LEVEL 6-10 Last Admin: 02/03/19 22:46 Dose: 50 mg Warfarin Sodium (Coumadin -) 2 mg PO DAILY@1800 [facility] Last Admin: 02/06/19 17:51 Dose: 2 mg Gen: weak appearing, NAD Heart: RRR Lung: scattered rhonchi Abd: soft, nontender Ext: no edema Laboratory Results - last 24 hr 02/06/19 02/07/19 02/07/19 11:30 06:21 06:21 WBC 13.1 H Corrected WBC (auto) 15.00 RBC 3.32 L Hgb 9.9 L Hct 30.2 L MCV 90.9 MCH 29.7 MCHC 32.7 RDW 20.1 H Plt Count 301 MPV 8.2 Absolute Neuts (auto) 9.9 H Neutrophils % 76.0 Neutrophils % (Manual) 76.5 80.0 Band Neutrophils % 0.0 0.0 Lymphocytes % 14.5 Lymphocytes % (Manual) 14.7 D 11.0 D Monocytes % 8.0 Monocytes % (Manual) 3 L 3 L Eosinophils % 0.6 D Eosinophils % (Manual) 0.0 0.0 Basophils % 0.9 Basophils % (Manual) 1.0 0.0 Myelocytes % (Man) 0 D 4 H D Promyelocytes % (Man) 0 0 Blast Cells % (Manual) 0 0 Nucleated RBC % 6 H Metamyelocytes 0 0 Hypochromia 0 0 Toxic Granulation 1+ Platelet Estimate Normal Normal Polychromasia 1+ 2+ Poikilocytosis 1+ 0 Basophilic Stippling 1+ 1+ Anisocytosis 1+ 1+ Microcytosis 1+ 1+ Macrocytosis 1+ 0 PT with INR 22.10 H INR 1.86 H Sodium Potassium Chloride Carbon Dioxide Anion Gap BUN Creatinine Est GFR (CKD-EPI)AfAm Est GFR (CKD-EPI)NonAf Random Glucose Calcium Total Bilirubin AST ALT Alkaline Phosphatase Total Protein Albumin 02/07/19 06:21 WBC Corrected WBC (auto) RBC Hgb Hct MCV MCH MCHC RDW Plt Count MPV Absolute Neuts (auto) Neutrophils % Neutrophils % (Manual) Band Neutrophils % Lymphocytes % Lymphocytes % (Manual) Monocytes % Monocytes % (Manual) Eosinophils % Eosinophils % (Manual) Basophils % Basophils % (Manual) Myelocytes % (Man) Promyelocytes % (Man) Blast Cells % (Manual) Nucleated RBC % Metamyelocytes Hypochromia Toxic Granulation Platelet Estimate Polychromasia Poikilocytosis Basophilic Stippling Anisocytosis Microcytosis Macrocytosis PT with INR INR Sodium 143 Potassium 4.7 Chloride 102 Carbon Dioxide 34 H Anion Gap 6 L BUN 39.4 H Creatinine 1.7 H Est GFR (CKD-EPI)AfAm 30.45 Est GFR (CKD-EPI)NonAf 26.28 Random Glucose 74 Calcium 9.1 Total Bilirubin 0.4 AST 29 ALT 16 Alkaline Phosphatase 67 Total Protein 4.5 L Albumin 1.7 L ASSESSMENT AND PLAN: Acute on Chronic Hypoxic Respiratory Failure UTI Sacral Decubitus Infection Gram Positive Bacteremia Sepsis COPD Atrial Fibrillation LV Systolic/Diastolic Dysfunction CKD Pancytopenia Anemia requiring PRBC transfusions Goiter with Tracheal compression (?) 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
[2019-02-07] MEDS: WARFARIN NA 2 MG TABLET (UD) PO SCH (18:09)
--- NOTE | 2019-02-07 19:30 | PN ---
Progress Note, Physician History of Present Illness: Pt is alert, without distress. Denies increase in SOB, has no CP/ abd pain. No BM today. WBC decreased since yesterday, afebrile. - Current Medication List Current Medications: Active Medications Acetaminophen (Tylenol -) 650 mg PO QID PRN PRN Reason: PAIN 1-3 Last Admin: 02/05/19 22:45 Dose: 650 mg Albuterol/Ipratropium (Duoneb -) 1 amp NEB RQ4H [facility] Last Admin: 02/07/19 15:41 Dose: 1 amp Bacitracin (Bacitracin -) 1 applic TP DAILY [facility] Last Admin: 02/07/19 10:53 Dose: 1 applic Collagenase (Santyl -) 1 applic TP DAILY [facility]; Protocol Last Admin: 02/07/19 10:54 Dose: Not Given Digoxin (Lanoxin -) 0.125 mg PO DAILY [facility] Last Admin: 02/07/19 10:57 Dose: 0.125 mg Escitalopram Oxalate (Lexapro -) 5 mg PO DAILY [facility] Last Admin: 02/07/19 10:53 Dose: 5 mg Furosemide (Lasix Injection -) 60 mg IVPUSH DAILY [facility] Gabapentin (Neurontin -) 100 mg PO TID [facility] Last Admin: 02/07/19 14:10 Dose: 100 mg IV Flush (Triple Lumen Flush) 4 ml IVPUSH PRN PRN PRN Reason: Protocol Last Admin: 02/03/19 06:31 Dose: 4 ml Meropenem 1 gm/ Dextrose 100 mls @ 200 mls/hr IVPB Q12H [facility] Last Admin: 02/07/19 14:09 Dose: 200 mls/hr Metoprolol Succinate (Toprol Xl -) 50 mg PO HS [facility] Last Admin: 02/06/19 23:09 Dose: 50 mg Morphine Sulfate (Morphine Sulfate) 4 mg IVPUSH Q3H PRN PRN Reason: PAIN LEVEL 6-10 Last Admin: 02/06/19 23:09 Dose: 4 mg Nystatin (Nystop Powder -) 1 applic TP DAILY [facility] Last Admin: 02/07/19 10:54 Dose: 1 applic Ondansetron HCl (Zofran -) 4 mg PO TID PRN PRN Reason: NAUSEA Pantoprazole Sodium (Protonix Iv) 40 mg IVPUSH DAILY [facility] Last Admin: 02/07/19 10:53 Dose: 40 mg Polyethylene Glycol (Miralax (For Daily Use) -) 17 gm PO DAILY [facility] Last Admin: 02/07/19 10:53 Dose: 17 grams Fluticasone/Salmeterol (Advair 100mcg/50mcg -) 1 puff IH BID [facility] Last Admin: 02/07/19 10:53 Dose: 1 puff Silver Sulfadiazine (Silvadene -) 1 applic TP BID [facility] Last Admin: 02/07/19 10:54 Dose: 1 applic Tramadol HCl (Ultram -) 50 mg PO Q8H PRN PRN Reason: PAIN LEVEL 6-10 Last Admin: 02/03/19 22:46 Dose: 50 mg Warfarin Sodium (Coumadin -) 2 mg PO DAILY@1800 [facility] Last Admin: 02/07/19 18:09 Dose: 2 mg - Objective Vital Signs: Vital Signs Temperature 97.4 F L 02/07/19 13:56 Pulse Rate 115 H 02/07/19 13:56 Respiratory Rate 20 02/07/19 13:56 Blood Pressure 138/67 02/07/19 13:56 O2 Sat by Pulse Oximetry (%) 93 L 02/07/19 10:54 Constitutional: Yes: No Distress, Calm Cardiovascular: Yes: Tachycardia Respiratory: Yes: Regular, On Nasal O2 Gastrointestinal: Yes: Normal Bowel Sounds, Soft, Abdomen, Obese Genitourinary: Yes: WNL Edema: LLE: 2+, RLE: 2+ Neurological: Yes: Alert, Oriented Labs: CBC, BMP 02/07/19 06:21 02/07/19 06:21 INR, PTT INR 1.86 (0.83-1.09) H 02/07/19 06:21 Fibrinogen 474.0 mg/dL (238-498) 01/23/19 07:03 Microbiology 01/31/19 Unknown Stool Clostridioides difficile Antigen - Final 01/31/19 Unknown Stool Clostridioides difficile Toxin Assay - Final 01/27/19 06:20 Blood - Arterial Blood Culture - Final NO GROWTH AFTER 5 DAYS INCUBATION 01/27/19 02:42 Blood - Arterial Blood Culture - Final NO GROWTH AFTER 5 DAYS INCUBATION 01/28/19 13:43 Catheter Tip - Catheter - Other Foreign Body Culture - Final NO GROWTH AFTER 48 HOURS INCUBATION 01/24/19 17:54 Blood - Peripheral Venous Blood Culture - Final NO GROWTH AFTER 5 DAYS INCUBATION 01/24/19 17:54 Blood - Peripheral Venous Blood Culture - Final NO GROWTH AFTER 5 DAYS INCUBATION 01/22/19 20:05 Blood - Peripheral Venous Blood Culture - Final NO GROWTH AFTER 5 DAYS INCUBATION 01/22/19 20:05 Blood - Peripheral Venous Blood Culture - Final Staphylococcus Epidermidis 01/23/19 02:45 Urine - Urine Gibbons Urine Culture - Final Escherichia Coli Esbl Artificial Teeth Inspector 01/23/19 02:45 Urine - Urine Gibbons Legionella Antigen - Final 01/23/19 02:45 Urine - Urine Gibbons Streptococcus pneumoniae Antigen (M - Final Problem List - Problems (1) Respiratory failure Code(s): J96.90 - RESPIRATORY FAILURE, UNSP, UNSP W HYPOXIA OR HYPERCAPNIA (2) SOB (shortness of breath) Code(s): R06.02 - SHORTNESS OF BREATH (3) Symptomatic anemia Code(s): D64.9 - ANEMIA, UNSPECIFIED (4) Acute on chronic renal failure Code(s): N17.9 - ACUTE KIDNEY FAILURE, UNSPECIFIED; N18.9 - CHRONIC KIDNEY DISEASE, UNSPECIFIED (5) Afib Code(s): I48.91 - UNSPECIFIED ATRIAL FIBRILLATION Qualifiers: Atrial fibrillation type: chronic Qualified Code(s): I48.2 - Chronic atrial fibrillation (6) CHF (NYHA class II, ACC/AHA stage C) Code(s): I50.9 - HEART FAILURE, UNSPECIFIED (7) CKD (chronic kidney disease) Code(s): N18.9 - CHRONIC KIDNEY DISEASE, UNSPECIFIED Qualifiers: Chronic kidney disease stage: stage 4 (severe) Qualified Code(s): N18.4 - Chronic kidney disease, stage 4 (severe) (8) COPD (chronic obstructive pulmonary disease) Code(s): J44.9 - CHRONIC OBSTRUCTIVE PULMONARY DISEASE, UNSPECIFIED Qualifiers: COPD type: unspecified COPD Qualified Code(s): J44.9 - Chronic obstructive pulmonary disease, unspecified (9) Hypercholesteremia Code(s): E78.00 - PURE HYPERCHOLESTEROLEMIA, UNSPECIFIED (10) Hypertension Code(s): I10 - ESSENTIAL (PRIMARY) HYPERTENSION (11) Hyperthyroidism Code(s): E05.90 - THYROTOXICOSIS, UNSP WITHOUT THYROTOXIC CRISIS OR STORM (12) Obese Code(s): E66.9 - OBESITY, UNSPECIFIED (13) Sacral decubitus ulcer, stage II Code(s): L89.152 - PRESSURE ULCER OF SACRAL REGION, STAGE 2 (14) Thyromegaly Code(s): E01.0 - IODINE-DEFICIENCY RELATED DIFFUSE (ENDEMIC) GOITER (15) Tracheal compression Code(s): J39.8 - OTHER SPECIFIED DISEASES OF UPPER RESPIRATORY TRACT (16) UTI (urinary tract infection) Code(s): N39.0 - URINARY TRACT INFECTION, SITE NOT SPECIFIED Qualifiers: Urinary tract infection type: site unspecified Hematuria presence: without hematuria Qualified Code(s): N39.0 - Urinary tract infection, site not specified Assessment/Plan ESBL + UTI Leukocytosis Low grade fevers s/p Acute hypoxic respiratory failure Pancytopenia - resolved Severe Anemia - GI bleed Multinodular goiter with partial tracheal compression COPD CKD AFIB CHF ASHD HTN HLD -- WBC decreased since yesterday, pt afebrile, without acute distress -- C.diff toxin neg. (Ag pos.) - pt without diarrhea/abd pain -- d/c Meropenem after today's doses - completes 14 days treatment -- Wound care, frequent turning -- continue monitor cbc, temperatures
[2019-02-08] MEDS: ALBUTEROL SO4 2.5/IPRATROPIUM 0.5 INH SOL 3 ML VIAL.NEB. NEB SCH ×7 (00:20→23:35)
[2019-02-08] MEDS ORDERED: MEROPENEM 1 GM VIAL (RESTRICTED TO ID) IVPB ONE (01:56)
[2019-02-08] MEDS ORDERED: DEXTROSE 5%-WATER 100 ML IVPB ONE (01:57)
[2019-02-08] MEDS: MEROPENEM 1 GM in DEXTROSE 5%-WATER 100 ML IVPB SCH (02:00)
[2019-02-08] MEDS: GABAPENTIN 100 MG CAPSULE (FP) PO SCH ×3 (05:39→22:32)
[2019-02-08 07:18] LABS: BASO % 1.3 % (0-2.0); HEMATOCRIT 31.7 % (32.4-45.2); HEMOGLOBIN 10.1 GM/dL (10.7-15.3); LYMPH % 14.1 % (8-40); MCH 29.5 pg (25.7-33.7); MEAN CELL VOLUME 92.3 fl (80-96); MEAN PLT VOLUME 8.2 fl (7.5-11.1); MONO % 9.5 % (3.8-10.2); NEUT % 74.1 % (42.8-82.8); PLATELET COUNT 292 K/MM3 (134-434); RBC 3.43 M/mm3 (3.60-5.2); RDW 19.7 % (11.6-15.6); WHITE BLOOD COUNT 13.7 K/mm3 (4.0-10.0)
[2019-02-08 07:24] LABS: INR 2.13 (0.83-1.09); PROTHROMBIN TIME (PATIENT) 25.3 SEC (9.7-13.0)
[2019-02-08 07:58] LABS: BLOOD UREA NITROGEN 37.7 mg/dL (7-18); CALCIUM 9.3 mg/dL (8.5-10.1); CREATININE 1.6 mg/dL (0.55-1.3); POTASSIUM 4.4 mmol/L (3.5-5.1)
[2019-02-08] MEDS: FUROSEMIDE 40 MG/4 ML INJECTABLE VIAL IVPUSH SCH ×2 (10:06→12:52)
[2019-02-08] MEDS: FLUTICASONE/SALMETEROL 100 MCG/50 MCG DISKUS IH SCH ×2 (10:07→22:46)
[2019-02-08] MEDS: PANTOPRAZOLE SODIUM 40 MG VIAL IVPUSH SCH (10:07)
[2019-02-08] MEDS: ESCITALOPRAM OXALATE 10 MG TABLET (FP) PO SCH (10:07)
[2019-02-08] MEDS: DIGOXIN 0.125 MG TABLET (FP) PO SCH (10:07)
[2019-02-08] MEDS: POLYETHYLENE GLYCOL 3350 119 GM BTL PO SCH (10:08)
[2019-02-08] MEDS: COLLAGENASE CLOSTRIDIUM HIST. 30 GRAMS TUBE TP SCH (10:08)
[2019-02-08] MEDS: NYSTATIN POWDER 100,000 UNITS/GM - 15 GM TOPICAL POWDER TP SCH (10:08)
[2019-02-08] MEDS: SILVER SULFADIAZINE 1% TOP CREAM 400 GM JAR TP SCH ×2 (10:08→22:46)
[2019-02-08] MEDS: BACITRACIN 15 GM TUBE TOPICAL OINTMENT TP SCH (10:08)
[2019-02-08 10:16] LABS: ANISOCYTOSIS 1+; MACROCYTOSIS 0; PLATELET ESTIMATE NORMAL
--- NOTE | 2019-02-08 11:53 | PN ---
Progress Note (short form) - Note Progress Note: 88 year old -[place] female was readmitted with progressive shortness of breath requiring high flow oxygen , also found to have severe anemia with pancytopenia which was attributed to the use of methimazole. Patient has decubiti ulcers, was found to be septic with a urinary tract infection. Pedal edema seems to be more pronounced. Patient remains lethargic. Continues to have a persistent cough associated with stridor. 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 Active Medications Acetaminophen (Tylenol -) 650 mg PO QID PRN PRN Reason: PAIN 1-3 Last Admin: 02/05/19 22:45 Dose: 650 mg Albuterol/Ipratropium (Duoneb -) 1 amp NEB RQ4H [facility]PL[facility] Last Admin: 02/08/19 07:40 Dose: 1 amp Bacitracin (Bacitracin -) 1 applic TP DAILY [facility] Last Admin: 02/08/19 10:08 Dose: 1 applic Collagenase (Santyl -) 1 applic TP DAILY [facility]; Protocol Last Admin: 02/08/19 10:08 Dose: Not Given Digoxin (Lanoxin -) 0.125 mg PO DAILY [facility] Last Admin: 02/08/19 10:07 Dose: 0.125 mg Escitalopram Oxalate (Lexapro -) 5 mg PO DAILY [facility] Last Admin: 02/08/19 10:07 Dose: 5 mg Furosemide (Lasix Injection -) 60 mg IVPUSH DAILY [facility] Last Admin: 02/08/19 10:06 Dose: Not Given Gabapentin (Neurontin -) 100 mg PO TID [facility] Last Admin: 02/08/19 05:39 Dose: 100 mg IV Flush (Triple Lumen Flush) 4 ml IVPUSH PRN PRN PRN Reason: Protocol Last Admin: 02/03/19 06:31 Dose: 4 ml Metoprolol Succinate (Toprol Xl -) 50 mg PO HS [facility] Last Admin: 02/07/19 23:05 Dose: 50 mg Morphine Sulfate (Morphine Sulfate) 4 mg IVPUSH Q3H PRN PRN Reason: PAIN LEVEL 6-10 Last Admin: 02/07/19 23:05 Dose: 4 mg Nystatin (Nystop Powder -) 1 applic TP DAILY [facility] Last Admin: 02/08/19 10:08 Dose: 1 applic Ondansetron HCl (Zofran -) 4 mg PO TID PRN PRN Reason: NAUSEA Pantoprazole Sodium (Protonix Iv) 40 mg IVPUSH DAILY [facility] Last Admin: 02/08/19 10:07 Dose: 40 mg Polyethylene Glycol (Miralax (For Daily Use) -) 17 gm PO DAILY [facility] Last Admin: 02/08/19 10:08 Dose: 17 grams Fluticasone/Salmeterol (Advair 100mcg/50mcg -) 1 puff IH BID [facility] Last Admin: 02/08/19 10:07 Dose: 1 puff Silver Sulfadiazine (Silvadene -) 1 applic TP BID [facility] Last Admin: 02/08/19 10:08 Dose: 1 applic Tramadol HCl (Ultram -) 50 mg PO Q8H PRN PRN Reason: PAIN LEVEL 6-10 Last Admin: 02/03/19 22:46 Dose: 50 mg Warfarin Sodium (Coumadin -) 2 mg PO DAILY@1800 [facility] Last Admin: 02/07/19 18:09 Dose: 2 mg Last Vital Signs Temp Pulse Resp BP Pulse Ox 98.1 F 74 21 H 95/50 L 93 L 02/08/19 10:00 02/08/19 10:07 02/08/19 10:00 02/08/19 10:00 02/08/19 09:00 NECK: Supple, positive hepatojugular reflux, carotids were 2+. No bruits were appreciated. HEART: PMI was not localized. Heart sounds were distant, partially obscured by coarse breath sounds. No murmur or gallops were heard. LUNGS: Scattered expiratory wheezing involving the left lung. ABDOMEN; soft, protuberant and nontender. No hepatosplenomegaly or palpable masses were appreciated. EXTREMITIES: 2-3+ bilateral pitting edema of the lower extremities. CBC, BMP 02/08/19 06:00 02/08/19 06:00 Impression: 1. Persistent cough associated with intermittent stridor: a). Secondary to trachael compression. b). COPD/bronchospastic pulmonary disease. 2. Recent urinary tract infection, 3. Coronary artery disease, angina pectoris, presently stable. 4. 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 5. Multinodular goiter/thyromegaly. 6. History of thyrotoxicosis. 7. Severe anemia. 8. Chronic kidney disease. 9. Pedal edema, etiology: a). Secondary to hypoalbunemia. b). 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 10. Decubitus. Recommendations: 1. Nephrology evaluation. 2. Correction of hypoprotenemia. 3. Patient may require Zaroxolyn 2.5mg half an hour before Lasix. Prognosis: Critical. Micky Hawkins MD.
--- NOTE | 2019-02-08 12:13 | PN ---
Progress Note, Physician History of Present Illness: still not feeling too well completed abx course back pain - Current Medication List Current Medications: Active Medications Acetaminophen (Tylenol -) 650 mg PO QID PRN PRN Reason: PAIN 1-3 Last Admin: 02/05/19 22:45 Dose: 650 mg Albuterol/Ipratropium (Duoneb -) 1 amp NEB RQ4H [facility] Last Admin: 02/08/19 07:40 Dose: 1 amp Bacitracin (Bacitracin -) 1 applic TP DAILY [facility] Last Admin: 02/08/19 10:08 Dose: 1 applic Collagenase (Santyl -) 1 applic TP DAILY [facility]; Protocol Last Admin: 02/08/19 10:08 Dose: Not Given Digoxin (Lanoxin -) 0.125 mg PO DAILY [facility] Last Admin: 02/08/19 10:07 Dose: 0.125 mg Escitalopram Oxalate (Lexapro -) 5 mg PO DAILY [facility] Last Admin: 02/08/19 10:07 Dose: 5 mg Furosemide (Lasix Injection -) 60 mg IVPUSH DAILY [facility] Last Admin: 02/08/19 10:06 Dose: Not Given Gabapentin (Neurontin -) 100 mg PO TID [facility] Last Admin: 02/08/19 05:39 Dose: 100 mg IV Flush (Triple Lumen Flush) 4 ml IVPUSH PRN PRN PRN Reason: Protocol Last Admin: 02/03/19 06:31 Dose: 4 ml Metoprolol Succinate (Toprol Xl -) 50 mg PO HS [facility] Last Admin: 02/07/19 23:05 Dose: 50 mg Morphine Sulfate (Morphine Sulfate) 4 mg IVPUSH Q3H PRN PRN Reason: PAIN LEVEL 6-10 Last Admin: 02/07/19 23:05 Dose: 4 mg Nystatin (Nystop Powder -) 1 applic TP DAILY [facility] Last Admin: 02/08/19 10:08 Dose: 1 applic Ondansetron HCl (Zofran -) 4 mg PO TID PRN PRN Reason: NAUSEA Pantoprazole Sodium (Protonix Iv) 40 mg IVPUSH DAILY [facility] Last Admin: 02/08/19 10:07 Dose: 40 mg Polyethylene Glycol (Miralax (For Daily Use) -) 17 gm PO DAILY [facility] Last Admin: 02/08/19 10:08 Dose: 17 grams Fluticasone/Salmeterol (Advair 100mcg/50mcg -) 1 puff IH BID [facility] Last Admin: 02/08/19 10:07 Dose: 1 puff Silver Sulfadiazine (Silvadene -) 1 applic TP BID [facility] Last Admin: 02/08/19 10:08 Dose: 1 applic Tramadol HCl (Ultram -) 50 mg PO Q8H PRN PRN Reason: PAIN LEVEL 6-10 Last Admin: 02/03/19 22:46 Dose: 50 mg Warfarin Sodium (Coumadin -) 2 mg PO DAILY@1800 [facility] Last Admin: 02/07/19 18:09 Dose: 2 mg - Objective Vital Signs: Vital Signs Temperature 98.1 F 02/08/19 10:00 Pulse Rate 74 02/08/19 10:07 Respiratory Rate 21 H 02/08/19 10:00 Blood Pressure 95/50 L 02/08/19 10:00 O2 Sat by Pulse Oximetry (%) 93 L 02/08/19 09:00 Constitutional: Yes: Calm, Mild Distress Cardiovascular: Yes: Pulse Irregular, S1, S2 Respiratory: Yes: Regular, On Nasal O2, Poor Air Entry Gastrointestinal: Yes: Normal Bowel Sounds, Soft Musculoskeletal: Yes: WNL Extremities: Yes: Other Integumentary: Yes: Other Wound/Incision: Yes: Other (multiple ulcers) Neurological: Yes: Alert, Oriented Psychiatric: Yes: Alert, Oriented Labs: CBC, BMP 02/08/19 06:00 02/08/19 06:00 INR, PTT INR 2.13 (0.83-1.09) H 02/08/19 06:00 Fibrinogen 474.0 mg/dL (238-498) 01/23/19 07:03 Assessment/Plan Problem List - Problems (1) Respiratory failure Code(s): J96.90 - RESPIRATORY FAILURE, UNSP, UNSP W HYPOXIA OR HYPERCAPNIA (2) SOB (shortness of breath) Code(s): R06.02 - SHORTNESS OF BREATH (3) Symptomatic anemia Code(s): D64.9 - ANEMIA, UNSPECIFIED (4) Acute on chronic renal failure Code(s): N17.9 - ACUTE KIDNEY FAILURE, UNSPECIFIED; N18.9 - CHRONIC KIDNEY DISEASE, UNSPECIFIED (5) Afib Code(s): I48.91 - UNSPECIFIED ATRIAL FIBRILLATION Qualifiers: Atrial fibrillation type: chronic Qualified Code(s): I48.2 - Chronic atrial fibrillation (6) CHF (NYHA class II, ACC/AHA stage C) Code(s): I50.9 - HEART FAILURE, UNSPECIFIED (7) CKD (chronic kidney disease) Code(s): N18.9 - CHRONIC KIDNEY DISEASE, UNSPECIFIED Qualifiers: Chronic kidney disease stage: stage 4 (severe) Qualified Code(s): N18.4 - Chronic kidney disease, stage 4 (severe) (8) COPD (chronic obstructive pulmonary disease) Code(s): J44.9 - CHRONIC OBSTRUCTIVE PULMONARY DISEASE, UNSPECIFIED Qualifiers: COPD type: unspecified COPD Qualified Code(s): J44.9 - Chronic obstructive pulmonary disease, unspecified (9) Hypercholesteremia Code(s): E78.00 - PURE HYPERCHOLESTEROLEMIA, UNSPECIFIED (10) Hypertension Code(s): I10 - ESSENTIAL (PRIMARY) HYPERTENSION (11) Hyperthyroidism Code(s): E05.90 - THYROTOXICOSIS, UNSP WITHOUT THYROTOXIC CRISIS OR STORM (12) Obese Code(s): E66.9 - OBESITY, UNSPECIFIED (13) Sacral decubitus ulcer, stage II Code(s): L89.152 - PRESSURE ULCER OF SACRAL REGION, STAGE 2 (14) Thyromegaly Code(s): E01.0 - IODINE-DEFICIENCY RELATED DIFFUSE (ENDEMIC) GOITER (15) Tracheal compression Code(s): J39.8 - OTHER SPECIFIED DISEASES OF UPPER RESPIRATORY TRACT (16) UTI (urinary tract infection) Code(s): N39.0 - URINARY TRACT INFECTION, SITE NOT SPECIFIED Qualifiers: Urinary tract infection type: site unspecified Hematuria presence: without hematuria Qualified Code(s): N39.0 - Urinary tract infection, site not specified 17 gi bleed Assessment/Plan 88 y.o. female with PMH of COPD on home O2, CHF, ASHD, HTN, HLD, CKD, diverticultis/ ? ischemic colitis s/p partial colectomy, s/p JW/BSO, chronic cough/persistent pulmonary infiltrates, multinodular goiter with partial tracheal compression, and anemia presents with c/o worsening SOB over the past week with subjective fever/chills. Fever Gram positive bacteremia UTI Acute hypoxic respiratory failure Possible HCAP Groin rash/excoriations Pancytopenia - ? due to Methimazole Multinodular goiter with partial tracheal compression COPD Hx of CKD AFIB CHF ASHD HTN HLD gi bleed plan continue current mgmt nutrition will stop abx wound care
--- NOTE | 2019-02-08 14:06 | PN ---
Progress Note (short form) - Note Progress Note: PULMONARY Breathing about the same. c/o constipation. Vital Signs Period Temp Pulse Resp BP Sys/Rodriguez Pulse Ox Last 24 Hr 98.1 F-98.3 F 74-115 21-21 95-123/50-67 93-97 Gen: mildly tachypneic at rest Heart: RRR Lung: scattered rhonchi Abd: soft, nontender Ext: + edema CBC, BMP 02/08/19 06:00 02/08/19 06:00 Active Medications Acetaminophen (Tylenol -) 650 mg PO QID PRN PRN Reason: PAIN 1-3 Last Admin: 02/05/19 22:45 Dose: 650 mg Albuterol/Ipratropium (Duoneb -) 1 amp NEB RQ4H [facility] Last Admin: 02/08/19 11:25 Dose: 1 amp Bacitracin (Bacitracin -) 1 applic TP DAILY [facility] Last Admin: 02/08/19 10:08 Dose: 1 applic Collagenase (Santyl -) 1 applic TP DAILY [facility]; Protocol Last Admin: 02/08/19 10:08 Dose: Not Given Digoxin (Lanoxin -) 0.125 mg PO DAILY [facility] Last Admin: 02/08/19 10:07 Dose: 0.125 mg Escitalopram Oxalate (Lexapro -) 5 mg PO DAILY [facility] Last Admin: 02/08/19 10:07 Dose: 5 mg Furosemide (Lasix Injection -) 60 mg IVPUSH DAILY [facility] Last Admin: 02/08/19 12:52 Dose: 60 mg Gabapentin (Neurontin -) 100 mg PO TID [facility] Last Admin: 02/08/19 13:11 Dose: 100 mg IV Flush (Triple Lumen Flush) 4 ml IVPUSH PRN PRN PRN Reason: Protocol Last Admin: 02/03/19 06:31 Dose: 4 ml Metoprolol Succinate (Toprol Xl -) 50 mg PO HS [facility] Last Admin: 02/07/19 23:05 Dose: 50 mg Morphine Sulfate (Morphine Sulfate) 4 mg IVPUSH Q3H PRN PRN Reason: PAIN LEVEL 6-10 Last Admin: 02/07/19 23:05 Dose: 4 mg Nystatin (Nystop Powder -) 1 applic TP DAILY [facility] Last Admin: 02/08/19 10:08 Dose: 1 applic Ondansetron HCl (Zofran -) 4 mg PO TID PRN PRN Reason: NAUSEA Pantoprazole Sodium (Protonix Iv) 40 mg IVPUSH DAILY [facility] Last Admin: 02/08/19 10:07 Dose: 40 mg Polyethylene Glycol (Miralax (For Daily Use) -) 17 gm PO DAILY [facility] Last Admin: 02/08/19 10:08 Dose: 17 grams Fluticasone/Salmeterol (Advair 100mcg/50mcg -) 1 puff IH BID [facility] Last Admin: 02/08/19 10:07 Dose: 1 puff Silver Sulfadiazine (Silvadene -) 1 applic TP BID [facility] Last Admin: 02/08/19 10:08 Dose: 1 applic Tramadol HCl (Ultram -) 50 mg PO Q8H PRN PRN Reason: PAIN LEVEL 6-10 Last Admin: 02/03/19 22:46 Dose: 50 mg Warfarin Sodium (Coumadin -) 2 mg PO DAILY@1800 [facility] Last Admin: 02/07/19 18:09 Dose: 2 mg A/P Acute on Chronic Hypoxic Respiratory Failure UTI Sacral Decubitus Infection Gram Positive Bacteremia Sepsis COPD Atrial Fibrillation LV Systolic/Diastolic Dysfunction CKD Anemia requiring PRBC transfusions Goiter with Tracheal compression + C diff Ag - bowel regimen - completed antibiotics - wound care - pain control - O2 to keep Spo2 >90% - BiPAP as needed to assist in work of breathing - inhaled bronchodilators - rate control - anticoagulation to target INR 2-3 - DVT prophylaxis
[2019-02-08] MEDS: MORPHINE SULFATE 2 MG/ML VIAL IVPUSH PRN (14:20)
--- NOTE | 2019-02-08 17:04 | PN ---
Progress Note, Physician Chief Complaint: Not in acute distress c/o body pain, looks tired - Current Medication List Current Medications: Active Medications Acetaminophen (Tylenol -) 650 mg PO QID PRN PRN Reason: PAIN 1-3 Last Admin: 02/05/19 22:45 Dose: 650 mg Albuterol/Ipratropium (Duoneb -) 1 amp NEB RQ4H [facility] Last Admin: 02/08/19 15:55 Dose: 1 amp Bacitracin (Bacitracin -) 1 applic TP DAILY [facility] Last Admin: 02/08/19 10:08 Dose: 1 applic Collagenase (Santyl -) 1 applic TP DAILY [facility]; Protocol Last Admin: 02/08/19 10:08 Dose: Not Given Escitalopram Oxalate (Lexapro -) 5 mg PO DAILY [facility] Last Admin: 02/08/19 10:07 Dose: 5 mg Furosemide (Lasix Injection -) 60 mg IVPUSH DAILY [facility] Last Admin: 02/08/19 12:52 Dose: 60 mg Gabapentin (Neurontin -) 100 mg PO TID [facility] Last Admin: 02/08/19 13:11 Dose: 100 mg IV Flush (Triple Lumen Flush) 4 ml IVPUSH PRN PRN PRN Reason: Protocol Last Admin: 02/03/19 06:31 Dose: 4 ml Metoprolol Succinate (Toprol Xl -) 50 mg PO HS [facility] Last Admin: 02/07/19 23:05 Dose: 50 mg Morphine Sulfate (Morphine Sulfate) 4 mg IVPUSH Q3H PRN PRN Reason: PAIN LEVEL 6-10 Last Admin: 02/08/19 14:20 Dose: 4 mg Nystatin (Nystop Powder -) 1 applic TP DAILY [facility] Last Admin: 02/08/19 10:08 Dose: 1 applic Ondansetron HCl (Zofran -) 4 mg PO TID PRN PRN Reason: NAUSEA Pantoprazole Sodium (Protonix Iv) 40 mg IVPUSH DAILY [facility] Last Admin: 02/08/19 10:07 Dose: 40 mg Polyethylene Glycol (Miralax (For Daily Use) -) 17 gm PO DAILY [facility] Last Admin: 02/08/19 10:08 Dose: 17 grams Fluticasone/Salmeterol (Advair 100mcg/50mcg -) 1 puff IH BID [facility] Last Admin: 02/08/19 10:07 Dose: 1 puff Silver Sulfadiazine (Silvadene -) 1 applic TP BID [facility] Last Admin: 02/08/19 10:08 Dose: 1 applic Tramadol HCl (Ultram -) 50 mg PO Q8H PRN PRN Reason: PAIN LEVEL 6-10 Last Admin: 02/03/19 22:46 Dose: 50 mg Warfarin Sodium (Coumadin -) 2 mg PO DAILY@1800 [facility] Last Admin: 02/07/19 18:09 Dose: 2 mg - Objective Vital Signs: Vital Signs Temperature 98.8 F 02/08/19 14:47 Pulse Rate 77 02/08/19 14:47 Respiratory Rate 20 02/08/19 14:47 Blood Pressure 110/59 L 02/08/19 14:47 O2 Sat by Pulse Oximetry (%) 93 L 02/08/19 09:00 Elderly sick looking F looks edematous, not in distress HEENT: facial puffiness anemia, no external trauma NECK; No JVd No BrUit CHEST: Congested equal AE no wheezes ABD: Obese, non tender EXT: Edematous with multiple echymoses [employer]: 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 Labs: CBC, BMP 02/08/19 06:00 02/08/19 06:00 INR, PTT INR 2.13 (0.83-1.09) H 02/08/19 06:00 Fibrinogen 474.0 mg/dL (238-498) 01/23/19 07:03 Problem List - Problems (1) Symptomatic anemia Code(s): D64.9 - ANEMIA, UNSPECIFIED (2) Respiratory failure Code(s): J96.90 - RESPIRATORY FAILURE, UNSP, UNSP W HYPOXIA OR HYPERCAPNIA (3) CHF (NYHA class II, ACC/AHA stage C) Code(s): I50.9 - HEART FAILURE, UNSPECIFIED (4) CKD (chronic kidney disease) Code(s): N18.9 - CHRONIC KIDNEY DISEASE, UNSPECIFIED Qualifiers: Chronic kidney disease stage: stage 4 (severe) Qualified Code(s): N18.4 - Chronic kidney disease, stage 4 (severe) (5) Persistent atrial fibrillation Code(s): I48.1 - PERSISTENT ATRIAL FIBRILLATION (6) COPD (chronic obstructive pulmonary disease) Code(s): J44.9 - CHRONIC OBSTRUCTIVE PULMONARY DISEASE, UNSPECIFIED Qualifiers: COPD type: unspecified COPD Qualified Code(s): J44.9 - Chronic obstructive pulmonary disease, unspecified (7) Thyromegaly Code(s): E01.0 - IODINE-DEFICIENCY RELATED DIFFUSE (ENDEMIC) GOITER (8) Malnutrition Code(s): E46 - UNSPECIFIED PROTEIN-CALORIE MALNUTRITION Qualifiers: Malnutrition type: protein-calorie malnutrition (9) Pressure ulcer Code(s): L89.90 - PRESSURE ULCER OF UNSPECIFIED SITE, UNSPECIFIED STAGE (10) UTI (urinary tract infection) Code(s): N39.0 - URINARY TRACT INFECTION, SITE NOT SPECIFIED (11) Goals of care, counseling/discussion Code(s): Z71.89 - OTHER SPECIFIED COUNSELING Assessment/Plan Patient remained hemodynamically stable but de-conditioned, making good amount of urine but still edematouus Plan: UTI with sepsis on Meropenam will completed INR subtherapeutic cont Coumadin 2 mg TWBC 13.1 stool C Diff ag + F/U ID recommendations. Anasarca :Cont Diuretics Worsening anemia : Recived 2 units RBC transfusion in between lasix 40 mg IVSS , H/H remained stable Discussed rate control strategy with cardiology now off Diltizem, Cont Digoxine 0.125 F/U Dig leverl Discussed with family Goals of care and ADR agrees for DNR/DNIADR and Code status Hold Digoxine for 1 day Prognosis poor explained to family
[2019-02-08] MEDS: WARFARIN NA 2 MG TABLET (UD) PO SCH (17:13)
[2019-02-08] MEDS ORDERED: guaiFENesin 200 MG/10 ML 10 ML UNIT-DOSE CUPS PO PRN (18:41)
[2019-02-08] MEDS: ACETAMINOPHEN 325 MG TABLET (FP) PO PRN (22:33)
[2019-02-09] MEDS: ALBUTEROL SO4 2.5/IPRATROPIUM 0.5 INH SOL 3 ML VIAL.NEB. NEB SCH ×6 (04:07→23:25)
[2019-02-09] MEDS: MORPHINE SULFATE 2 MG/ML VIAL IVPUSH PRN ×2 (05:39→15:18)
[2019-02-09] MEDS: TRIPLE LUMEN FLUSH 4 ML ML IVPUSH PRN (05:40)
[2019-02-09] MEDS: GABAPENTIN 100 MG CAPSULE (FP) PO SCH ×3 (06:33→21:09)
[2019-02-09 07:39] LABS: BASO % 1.3 % (0-2.0); EOS % 1.2 % (0-4.5); HEMOGLOBIN 9.2 GM/dL (10.7-15.3); LYMPH % 18.9 % (8-40); MCH 29.6 pg (25.7-33.7); MCHC 31.9 g/dl (32.0-36.0); MEAN CELL VOLUME 92.8 fl (80-96); MEAN PLT VOLUME 8.4 fl (7.5-11.1); MONO % 8.5 % (3.8-10.2); NEUT % 70.1 % (42.8-82.8); PLATELET COUNT 251 K/MM3 (134-434); RBC 3.12 M/mm3 (3.60-5.2); RDW 19.5 % (11.6-15.6); WHITE BLOOD COUNT 11.4 K/mm3 (4.0-10.0)
[2019-02-09 07:58] LABS: INR 2.46 (0.83-1.09); PROTHROMBIN TIME (PATIENT) 29.3 SEC (9.7-13.0)
[2019-02-09 08:12] LABS: BLOOD UREA NITROGEN 40.4 mg/dL (7-18); CALCIUM 9.1 mg/dL (8.5-10.1); CREATININE 1.5 mg/dL (0.55-1.3); POTASSIUM 4.4 mmol/L (3.5-5.1)
[2019-02-09] MEDS: BACITRACIN 15 GM TUBE TOPICAL OINTMENT TP SCH (09:30)
[2019-02-09] MEDS: FLUTICASONE/SALMETEROL 100 MCG/50 MCG DISKUS IH SCH ×2 (09:30→21:09)
[2019-02-09] MEDS: PANTOPRAZOLE SODIUM 40 MG VIAL IVPUSH SCH (09:31)
[2019-02-09] MEDS: METOLAZONE 2.5 MG TABLET (FP) PO SCH (09:31)
[2019-02-09] MEDS: ESCITALOPRAM OXALATE 10 MG TABLET (FP) PO SCH (09:31)
[2019-02-09] MEDS: POLYETHYLENE GLYCOL 3350 119 GM BTL PO SCH (09:32)
[2019-02-09] MEDS: NYSTATIN POWDER 100,000 UNITS/GM - 15 GM TOPICAL POWDER TP SCH (09:32)
[2019-02-09] MEDS: COLLAGENASE CLOSTRIDIUM HIST. 30 GRAMS TUBE TP SCH (09:32)
[2019-02-09] MEDS: SILVER SULFADIAZINE 1% TOP CREAM 400 GM JAR TP SCH ×2 (09:32→21:08)
[2019-02-09] MEDS: FUROSEMIDE 40 MG/4 ML INJECTABLE VIAL IVPUSH SCH (10:04)
--- NOTE | 2019-02-09 11:46 | PN ---
Progress Note, Physician - Current Medication List Current Medications: Active Medications Acetaminophen (Tylenol -) 650 mg PO QID PRN PRN Reason: PAIN 1-3 Last Admin: 02/08/19 22:33 Dose: 650 mg Albuterol/Ipratropium (Duoneb -) 1 amp NEB RQ4H [facility] Last Admin: 02/09/19 11:24 Dose: 1 amp Bacitracin (Bacitracin -) 1 applic TP DAILY [facility] Last Admin: 02/09/19 09:30 Dose: 1 applic Collagenase (Santyl -) 1 applic TP DAILY [facility]; Protocol Last Admin: 02/09/19 09:32 Dose: Not Given Escitalopram Oxalate (Lexapro -) 5 mg PO DAILY [facility] Last Admin: 02/09/19 09:31 Dose: 5 mg Furosemide (Lasix Injection -) 60 mg IVPUSH DAILY [facility] Last Admin: 02/09/19 10:04 Dose: 60 mg Gabapentin (Neurontin -) 100 mg PO TID [facility] Last Admin: 02/09/19 06:33 Dose: Not Given Guaifenesin (Robitussin -) 10 ml PO Q4H PRN PRN Reason: COUGH Last Admin: 02/08/19 18:45 Dose: 10 ml IV Flush (Triple Lumen Flush) 4 ml IVPUSH PRN PRN PRN Reason: Protocol Last Admin: 02/09/19 05:40 Dose: 4 ml Metolazone (Zaroxolyn -) 2.5 mg PO DAILY@0930 [facility] Last Admin: 02/09/19 09:31 Dose: 2.5 mg Metoprolol Succinate (Toprol Xl -) 50 mg PO HS [facility] Last Admin: 02/08/19 22:32 Dose: Not Given Morphine Sulfate (Morphine Sulfate) 4 mg IVPUSH Q3H PRN PRN Reason: PAIN LEVEL 6-10 Last Admin: 02/09/19 05:39 Dose: 4 mg Nystatin (Nystop Powder -) 1 applic TP DAILY [facility] Last Admin: 02/09/19 09:32 Dose: 1 applic Ondansetron HCl (Zofran -) 4 mg PO TID PRN PRN Reason: NAUSEA Pantoprazole Sodium (Protonix Iv) 40 mg IVPUSH DAILY [facility] Last Admin: 02/09/19 09:31 Dose: 40 mg Polyethylene Glycol (Miralax (For Daily Use) -) 17 gm PO DAILY [facility] Last Admin: 02/09/19 09:32 Dose: 17 grams Fluticasone/Salmeterol (Advair 100mcg/50mcg -) 1 puff IH BID [facility] Last Admin: 02/09/19 09:30 Dose: 1 puff Silver Sulfadiazine (Silvadene -) 1 applic TP BID [facility] Last Admin: 02/09/19 09:32 Dose: 1 applic Tramadol HCl (Ultram -) 50 mg PO Q8H PRN PRN Reason: PAIN LEVEL 6-10 Last Admin: 02/03/19 22:46 Dose: 50 mg Warfarin Sodium (Coumadin -) 2 mg PO DAILY@1800 [facility] Last Admin: 02/08/19 17:13 Dose: 2 mg - Objective Vital Signs: Vital Signs Temperature 97.9 F 02/09/19 10:00 Pulse Rate 72 02/09/19 10:00 Respiratory Rate 20 02/09/19 10:00 Blood Pressure 109/63 02/09/19 10:00 O2 Sat by Pulse Oximetry (%) 94 L 02/09/19 09:00 Labs: CBC, BMP 02/09/19 06:30 02/09/19 06:30 INR, PTT INR 2.46 (0.83-1.09) H 02/09/19 06:30 Fibrinogen 474.0 mg/dL (238-498) 01/23/19 07:03
[2019-02-09 13:21] LABS: ANISOCYTOSIS 1+; MACROCYTOSIS 1+; PLATELET ESTIMATE NORMAL
--- NOTE | 2019-02-09 16:22 | PN ---
Progress Note (short form) - Note Progress Note: PULMONARY Breathing about the same. Being evaluated for [place]. Vital Signs Period Temp Pulse Resp BP Sys/Rodriguez Pulse Ox Last 24 Hr 97.9 F-99.9 F 72-97 16-20 92-122/44-69 94-96 Gen: mildly tachypneic at rest Heart: RRR Lung: scattered rhonchi Abd: soft, nontender Ext: + edema CBC, BMP 02/09/19 06:30 02/09/19 06:30 Active Medications Acetaminophen (Tylenol -) 650 mg PO QID PRN PRN Reason: PAIN 1-3 Last Admin: 02/08/19 22:33 Dose: 650 mg Albuterol/Ipratropium (Duoneb -) 1 amp NEB RQ4H [facility] Last Admin: 02/09/19 11:24 Dose: 1 amp Bacitracin (Bacitracin -) 1 applic TP DAILY [facility] Last Admin: 02/09/19 09:30 Dose: 1 applic Collagenase (Santyl -) 1 applic TP DAILY [facility]; Protocol Last Admin: 02/09/19 09:32 Dose: Not Given Escitalopram Oxalate (Lexapro -) 5 mg PO DAILY [facility] Last Admin: 02/09/19 09:31 Dose: 5 mg Furosemide (Lasix Injection -) 60 mg IVPUSH DAILY [facility] Last Admin: 02/09/19 10:04 Dose: 60 mg Gabapentin (Neurontin -) 100 mg PO TID [facility] Last Admin: 02/09/19 14:20 Dose: Not Given Guaifenesin (Robitussin -) 10 ml PO Q4H PRN PRN Reason: COUGH Last Admin: 02/08/19 18:45 Dose: 10 ml IV Flush (Triple Lumen Flush) 4 ml IVPUSH PRN PRN PRN Reason: Protocol Last Admin: 02/09/19 05:40 Dose: 4 ml Metolazone (Zaroxolyn -) 2.5 mg PO DAILY@0930 [facility] Last Admin: 02/09/19 09:31 Dose: 2.5 mg Metoprolol Succinate (Toprol Xl -) 50 mg PO HS [facility] Last Admin: 02/08/19 22:32 Dose: Not Given Morphine Sulfate (Morphine Sulfate) 4 mg IVPUSH Q3H PRN PRN Reason: PAIN LEVEL 6-10 Last Admin: 02/09/19 15:18 Dose: 4 mg Nystatin (Nystop Powder -) 1 applic TP DAILY [facility] Last Admin: 02/09/19 09:32 Dose: 1 applic Ondansetron HCl (Zofran -) 4 mg PO TID PRN PRN Reason: NAUSEA Pantoprazole Sodium (Protonix Iv) 40 mg IVPUSH DAILY [facility] Last Admin: 02/09/19 09:31 Dose: 40 mg Polyethylene Glycol (Miralax (For Daily Use) -) 17 gm PO DAILY [facility] Last Admin: 02/09/19 09:32 Dose: 17 grams Fluticasone/Salmeterol (Advair 100mcg/50mcg -) 1 puff IH BID [facility] Last Admin: 02/09/19 09:30 Dose: 1 puff Silver Sulfadiazine (Silvadene -) 1 applic TP BID [facility] Last Admin: 02/09/19 09:32 Dose: 1 applic Tramadol HCl (Ultram -) 50 mg PO Q8H PRN PRN Reason: PAIN LEVEL 6-10 Last Admin: 02/03/19 22:46 Dose: 50 mg Warfarin Sodium (Coumadin -) 2 mg PO DAILY@1800 [facility] Last Admin: 02/08/19 17:13 Dose: 2 mg A/P Acute on Chronic Hypoxic Respiratory Failure UTI Sacral Decubitus Infection Gram Positive Bacteremia Sepsis COPD Atrial Fibrillation LV Systolic/Diastolic Dysfunction CKD Anemia requiring PRBC transfusions Goiter with Tracheal compression + C diff Ag - bowel regimen - completed antibiotics - wound care - pain control - O2 to keep Spo2 >90% - BiPAP as needed to assist in work of breathing - inhaled bronchodilators - rate control - anticoagulation to target INR 2-3 - DVT prophylaxis
[2019-02-09] MEDS: WARFARIN NA 2 MG TABLET (UD) PO SCH (17:21)
--- NOTE | 2019-02-09 18:40 | PN ---
Progress Note, Physician Chief Complaint: Not in acute distress c/o body pain - Current Medication List Current Medications: Active Medications Acetaminophen (Tylenol -) 650 mg PO QID PRN PRN Reason: PAIN 1-3 Last Admin: 02/08/19 22:33 Dose: 650 mg Albuterol/Ipratropium (Duoneb -) 1 amp NEB RQ4H [facility] Last Admin: 02/09/19 16:47 Dose: 1 amp Bacitracin (Bacitracin -) 1 applic TP DAILY [facility] Last Admin: 02/09/19 09:30 Dose: 1 applic Collagenase (Santyl -) 1 applic TP DAILY [facility]; Protocol Last Admin: 02/09/19 09:32 Dose: Not Given Digoxin (Lanoxin -) 0.125 mg PO DAILY [facility] Escitalopram Oxalate (Lexapro -) 5 mg PO DAILY [facility] Last Admin: 02/09/19 09:31 Dose: 5 mg Furosemide (Lasix Injection -) 60 mg IVPUSH DAILY [facility] Last Admin: 02/09/19 10:04 Dose: 60 mg Gabapentin (Neurontin -) 100 mg PO TID [facility] Last Admin: 02/09/19 14:20 Dose: Not Given Guaifenesin (Robitussin -) 10 ml PO Q4H PRN PRN Reason: COUGH Last Admin: 02/08/19 18:45 Dose: 10 ml IV Flush (Triple Lumen Flush) 4 ml IVPUSH PRN PRN PRN Reason: Protocol Last Admin: 02/09/19 05:40 Dose: 4 ml Metolazone (Zaroxolyn -) 2.5 mg PO DAILY@0930 [facility] Last Admin: 02/09/19 09:31 Dose: 2.5 mg Metoprolol Succinate (Toprol Xl -) 50 mg PO HS [facility] Last Admin: 02/08/19 22:32 Dose: Not Given Morphine Sulfate (Morphine Sulfate) 4 mg IVPUSH Q3H PRN PRN Reason: PAIN LEVEL 6-10 Last Admin: 02/09/19 15:18 Dose: 4 mg Nystatin (Nystop Powder -) 1 applic TP DAILY [facility] Last Admin: 02/09/19 09:32 Dose: 1 applic Ondansetron HCl (Zofran -) 4 mg PO TID PRN PRN Reason: NAUSEA Pantoprazole Sodium (Protonix Iv) 40 mg IVPUSH DAILY [facility] Last Admin: 02/09/19 09:31 Dose: 40 mg Polyethylene Glycol (Miralax (For Daily Use) -) 17 gm PO DAILY [facility] Last Admin: 02/09/19 09:32 Dose: 17 grams Fluticasone/Salmeterol (Advair 100mcg/50mcg -) 1 puff IH BID [facility] Last Admin: 02/09/19 09:30 Dose: 1 puff Silver Sulfadiazine (Silvadene -) 1 applic TP BID [facility] Last Admin: 02/09/19 09:32 Dose: 1 applic Tramadol HCl (Ultram -) 50 mg PO Q8H PRN PRN Reason: PAIN LEVEL 6-10 Last Admin: 02/03/19 22:46 Dose: 50 mg Warfarin Sodium (Coumadin -) 2 mg PO DAILY@1800 [facility] Last Admin: 02/09/19 17:21 Dose: 2 mg - Objective Vital Signs: Vital Signs Temperature 97.9 F 02/09/19 14:46 Pulse Rate 85 02/09/19 14:46 Respiratory Rate 20 02/09/19 14:46 Blood Pressure 122/66 02/09/19 14:46 O2 Sat by Pulse Oximetry (%) 94 L 02/09/19 09:00 Elderly sick looking F looks edematous, not in distress HEENT: facial puffiness anemia, no external trauma NECK; No JVd No BrUit CHEST: Congested equal AE no wheezes ABD: Obese, non tender EXT: Edematous with multiple echymoses [employer]ON[employer]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 Labs: CBC, BMP 02/09/19 06:30 02/09/19 06:30 INR, PTT INR 2.46 (0.83-1.09) H 02/09/19 06:30 Fibrinogen 474.0 mg/dL (238-498) 01/23/19 07:03 Problem List - Problems (1) Symptomatic anemia Code(s): D64.9 - ANEMIA, UNSPECIFIED (2) Respiratory failure Code(s): J96.90 - RESPIRATORY FAILURE, UNSP, UNSP W HYPOXIA OR HYPERCAPNIA (3) CHF (NYHA class II, ACC/AHA stage C) Code(s): I50.9 - HEART FAILURE, UNSPECIFIED (4) CKD (chronic kidney disease) Code(s): N18.9 - CHRONIC KIDNEY DISEASE, UNSPECIFIED Qualifiers: Chronic kidney disease stage: stage 4 (severe) Qualified Code(s): N18.4 - Chronic kidney disease, stage 4 (severe) (5) Persistent atrial fibrillation Code(s): I48.1 - PERSISTENT ATRIAL FIBRILLATION (6) COPD (chronic obstructive pulmonary disease) Code(s): J44.9 - CHRONIC OBSTRUCTIVE PULMONARY DISEASE, UNSPECIFIED Qualifiers: COPD type: unspecified COPD Qualified Code(s): J44.9 - Chronic obstructive pulmonary disease, unspecified (7) Thyromegaly Code(s): E01.0 - IODINE-DEFICIENCY RELATED DIFFUSE (ENDEMIC) GOITER (8) Malnutrition Code(s): E46 - UNSPECIFIED PROTEIN-CALORIE MALNUTRITION Qualifiers: Malnutrition type: protein-calorie malnutrition (9) Pressure ulcer Code(s): L89.90 - PRESSURE ULCER OF UNSPECIFIED SITE, UNSPECIFIED STAGE (10) UTI (urinary tract infection) Code(s): N39.0 - URINARY TRACT INFECTION, SITE NOT SPECIFIED (11) Goals of care, counseling/discussion Code(s): Z71.89 - OTHER SPECIFIED COUNSELING Assessment/Plan Patient remained hemodynamically stable but de-conditioned, making good amount of urine but still edematous Plan: UTI with sepsis on Meropenam will completed INR therapeutic cont Coumadin 2 mg TWBC 11K stool C Diff ag + F/U ID recommendations. Anasarca :Cont Diuretics Worsening anemia : Recived 2 units RBC transfusion H/H remained stable Off Diltizem, Cont Digoxine 0.125 F/U Dig leverl Discussed with family Goals of care and ADR agrees for DNR/DNIADR , awaiting placement to [facility] Prognosis poor explained to family
[2019-02-10] MEDS: ALBUTEROL SO4 2.5/IPRATROPIUM 0.5 INH SOL 3 ML VIAL.NEB. NEB SCH ×3 (04:30→11:40)
[2019-02-10] MEDS: MORPHINE SULFATE 2 MG/ML VIAL IVPUSH PRN (05:28)
[2019-02-10] MEDS: GABAPENTIN 100 MG CAPSULE (FP) PO SCH ×2 (05:29→14:44)
[2019-02-10 07:44] LABS: BASO % 1.4 % (0-2.0); EOS % 0.9 % (0-4.5); HEMATOCRIT 31.1 % (32.4-45.2); HEMOGLOBIN 9.9 GM/dL (10.7-15.3); MCH 29.5 pg (25.7-33.7); MCHC 31.9 g/dl (32.0-36.0); MEAN CELL VOLUME 92.5 fl (80-96); MEAN PLT VOLUME 8.5 fl (7.5-11.1); MONO % 7.5 % (3.8-10.2); NEUT % 68.2 % (42.8-82.8); PLATELET COUNT 292 K/MM3 (134-434); RBC 3.36 M/mm3 (3.60-5.2); RDW 19.3 % (11.6-15.6); WHITE BLOOD COUNT 12.7 K/mm3 (4.0-10.0)
[2019-02-10 08:31] LABS: BLOOD UREA NITROGEN 40.9 mg/dL (7-18); CALCIUM 9.3 mg/dL (8.5-10.1); CREATININE 1.7 mg/dL (0.55-1.3); POTASSIUM 4.5 mmol/L (3.5-5.1)
[2019-02-10 08:37] LABS: PROTHROMBIN TIME (PATIENT) 33.5 SEC (9.7-13.0)
--- NOTE | 2019-02-10 09:47 | PN ---
Progress Note, Physician History of Present Illness: no new changes not doing too well - Current Medication List Current Medications: Active Medications Acetaminophen (Tylenol -) 650 mg PO QID PRN PRN Reason: PAIN 1-3 Last Admin: 02/08/19 22:33 Dose: 650 mg Albuterol/Ipratropium (Duoneb -) 1 amp NEB RQ4H [facility] Last Admin: 02/10/19 04:30 Dose: 1 amp Bacitracin (Bacitracin -) 1 applic TP DAILY [facility] Last Admin: 02/09/19 09:30 Dose: 1 applic Collagenase (Santyl -) 1 applic TP DAILY [facility]; Protocol Last Admin: 02/09/19 09:32 Dose: Not Given Digoxin (Lanoxin -) 0.125 mg PO DAILY [facility] Escitalopram Oxalate (Lexapro -) 5 mg PO DAILY [facility] Last Admin: 02/09/19 09:31 Dose: 5 mg Furosemide (Lasix Injection -) 60 mg IVPUSH DAILY [facility] Last Admin: 02/09/19 10:04 Dose: 60 mg Gabapentin (Neurontin -) 100 mg PO TID [facility] Last Admin: 02/10/19 05:29 Dose: 100 mg Guaifenesin (Robitussin -) 10 ml PO Q4H PRN PRN Reason: COUGH Last Admin: 02/08/19 18:45 Dose: 10 ml IV Flush (Triple Lumen Flush) 4 ml IVPUSH PRN PRN PRN Reason: Protocol Last Admin: 02/09/19 05:40 Dose: 4 ml Metolazone (Zaroxolyn -) 2.5 mg PO DAILY@0930 [facility] Last Admin: 02/09/19 09:31 Dose: 2.5 mg Metoprolol Succinate (Toprol Xl -) 50 mg PO HS [facility] Last Admin: 02/09/19 21:09 Dose: 50 mg Morphine Sulfate (Morphine Sulfate) 4 mg IVPUSH Q3H PRN PRN Reason: PAIN LEVEL 6-10 Last Admin: 02/10/19 05:28 Dose: 4 mg Nystatin (Nystop Powder -) 1 applic TP DAILY [facility] Last Admin: 02/09/19 09:32 Dose: 1 applic Ondansetron HCl (Zofran -) 4 mg PO TID PRN PRN Reason: NAUSEA Pantoprazole Sodium (Protonix Iv) 40 mg IVPUSH DAILY [facility] Last Admin: 02/09/19 09:31 Dose: 40 mg Polyethylene Glycol (Miralax (For Daily Use) -) 17 gm PO DAILY [facility] Last Admin: 02/09/19 09:32 Dose: 17 grams Fluticasone/Salmeterol (Advair 100mcg/50mcg -) 1 puff IH BID [facility] Last Admin: 02/09/19 21:09 Dose: 1 puff Silver Sulfadiazine (Silvadene -) 1 applic TP BID [facility] Last Admin: 02/09/19 21:08 Dose: 1 applic Tramadol HCl (Ultram -) 50 mg PO Q8H PRN PRN Reason: PAIN LEVEL 6-10 Last Admin: 02/03/19 22:46 Dose: 50 mg Warfarin Sodium (Coumadin -) 2 mg PO DAILY@1800 [facility] Last Admin: 02/09/19 17:21 Dose: 2 mg - Objective Vital Signs: Vital Signs Temperature 98.5 F 02/10/19 06:00 Pulse Rate 100 H 02/10/19 06:00 Respiratory Rate 20 02/10/19 06:00 Blood Pressure 109/52 L 02/10/19 06:00 O2 Sat by Pulse Oximetry (%) 93 L 02/10/19 05:00 Constitutional: Yes: Other Cardiovascular: Yes: Pulse Irregular, S1, S2 Respiratory: Yes: On Nasal O2, Poor Air Entry Gastrointestinal: Yes: Normal Bowel Sounds, Soft Extremities: Yes: Other Wound/Incision: Yes: Other Neurological: Yes: Alert Psychiatric: Yes: Alert Labs: CBC, BMP 02/10/19 06:25 02/10/19 06:25 INR, PTT INR 2.46 (0.83-1.09) H 02/09/19 06:30 Fibrinogen 474.0 mg/dL (238-498) 01/23/19 07:03 Assessment/Plan Problem List - Problems (1) Respiratory failure Code(s): J96.90 - RESPIRATORY FAILURE, UNSP, UNSP W HYPOXIA OR HYPERCAPNIA (2) SOB (shortness of breath) Code(s): R06.02 - SHORTNESS OF BREATH (3) Symptomatic anemia Code(s): D64.9 - ANEMIA, UNSPECIFIED (4) Acute on chronic renal failure Code(s): N17.9 - ACUTE KIDNEY FAILURE, UNSPECIFIED; N18.9 - CHRONIC KIDNEY DISEASE, UNSPECIFIED (5) Afib Code(s): I48.91 - UNSPECIFIED ATRIAL FIBRILLATION Qualifiers: Atrial fibrillation type: chronic Qualified Code(s): I48.2 - Chronic atrial fibrillation (6) CHF (NYHA class II, ACC/AHA stage C) Code(s): I50.9 - HEART FAILURE, UNSPECIFIED (7) CKD (chronic kidney disease) Code(s): N18.9 - CHRONIC KIDNEY DISEASE, UNSPECIFIED Qualifiers: Chronic kidney disease stage: stage 4 (severe) Qualified Code(s): N18.4 - Chronic kidney disease, stage 4 (severe) (8) COPD (chronic obstructive pulmonary disease) Code(s): J44.9 - CHRONIC OBSTRUCTIVE PULMONARY DISEASE, UNSPECIFIED Qualifiers: COPD type: unspecified COPD Qualified Code(s): J44.9 - Chronic obstructive pulmonary disease, unspecified (9) Hypercholesteremia Code(s): E78.00 - PURE HYPERCHOLESTEROLEMIA, UNSPECIFIED (10) Hypertension Code(s): I10 - ESSENTIAL (PRIMARY) HYPERTENSION (11) Hyperthyroidism Code(s): E05.90 - THYROTOXICOSIS, UNSP WITHOUT THYROTOXIC CRISIS OR STORM (12) Obese Code(s): E66.9 - OBESITY, UNSPECIFIED (13) Sacral decubitus ulcer, stage II Code(s): L89.152 - PRESSURE ULCER OF SACRAL REGION, STAGE 2 (14) Thyromegaly Code(s): E01.0 - IODINE-DEFICIENCY RELATED DIFFUSE (ENDEMIC) GOITER (15) Tracheal compression Code(s): J39.8 - OTHER SPECIFIED DISEASES OF UPPER RESPIRATORY TRACT (16) UTI (urinary tract infection) Code(s): N39.0 - URINARY TRACT INFECTION, SITE NOT SPECIFIED Qualifiers: Urinary tract infection type: site unspecified Hematuria presence: without hematuria Qualified Code(s): N39.0 - Urinary tract infection, site not specified 17 gi bleed Assessment/Plan 88 y.o. female with PMH of COPD on home O2, CHF, ASHD, HTN, HLD, CKD, diverticultis/ ? ischemic colitis s/p partial colectomy, s/p JW/BSO, chronic cough/persistent pulmonary infiltrates, multinodular goiter with partial tracheal compression, and anemia presents with c/o worsening SOB over the past week with subjective fever/chills. Fever Gram positive bacteremia UTI Acute hypoxic respiratory failure Possible HCAP Groin rash/excoriations Pancytopenia - ? due to Methimazole Multinodular goiter with partial tracheal compression COPD Hx of CKD AFIB CHF ASHD HTN HLD gi bleed plan continue current mgmt nutrition rest as per the team wound care
[2019-02-10] MEDS: SILVER SULFADIAZINE 1% TOP CREAM 400 GM JAR TP SCH (09:55)
[2019-02-10] MEDS: METOLAZONE 2.5 MG TABLET (FP) PO SCH (09:55)
[2019-02-10] MEDS: FLUTICASONE/SALMETEROL 100 MCG/50 MCG DISKUS IH SCH (09:56)
[2019-02-10] MEDS: COLLAGENASE CLOSTRIDIUM HIST. 30 GRAMS TUBE TP SCH (09:57)
[2019-02-10] MEDS: ESCITALOPRAM OXALATE 10 MG TABLET (FP) PO SCH (09:57)
[2019-02-10] MEDS: BACITRACIN 15 GM TUBE TOPICAL OINTMENT TP SCH (09:58)
[2019-02-10] MEDS: PANTOPRAZOLE SODIUM 40 MG VIAL IVPUSH SCH (09:59)
[2019-02-10] MEDS: NYSTATIN POWDER 100,000 UNITS/GM - 15 GM TOPICAL POWDER TP SCH (10:00)
[2019-02-10] MEDS ORDERED: DIGOXIN 0.125 MG TABLET (FP) PO SCH (10:00)
[2019-02-10] MEDS: POLYETHYLENE GLYCOL 3350 119 GM BTL PO SCH (10:01)
[2019-02-10 10:24] LABS: INR 2.81 (0.83-1.09)
[2019-02-10] MEDS: FUROSEMIDE 40 MG/4 ML INJECTABLE VIAL IVPUSH SCH (10:42)
[2019-02-10 12:43] LABS: ANISOCYTOSIS 1+; MACROCYTOSIS 1+; OVALOCYTE 1+; PLATELET ESTIMATE NORMAL
[2019-02-10 14:38] VITALS: BP 125/54; PULSE 104; TEMP 98.7
--- NOTE | 2019-02-10 20:43 | DS ---
Physical Examination Vital Signs: Vital Signs Temperature 98.7 F 02/10/19 14:36 Pulse Rate 104 H 02/10/19 14:36 Respiratory Rate 20 02/10/19 14:36 Blood Pressure 125/54 L 02/10/19 14:36 O2 Sat by Pulse Oximetry (%) 96 02/10/19 09:00 Elderly sick looking F looks edematous, not in distress HEENT: facial puffiness anemia, no external trauma NECK; No JVd No BrUit CHEST: Congested equal AE no wheezes ABD: Obese, non tender EXT: Edematous with multiple echymoses TURN LASTER: 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 Condition: Guarded - Instructions Disposition: TRANSFER ACUTE CARE/OTHER HOSP - Home Medications Comprehensive Discharge Medication List: Ambulatory Orders Acetaminophen [Tylenol] 650 mg PO QID PRN 12/28/18 Metoprolol Succinate [Toprol Xl] 50 mg PO HS 12/28/18 Ondansetron HCl [Zofran] 4 mg PO TID PRN 12/28/18 Salmeterol/Fluticasone [Advair 100Mcg/50Mcg -] 1 inh PO BID 12/28/18 Tramadol HCl 50 mg PO BID PRN 12/28/18 Albuterol 2.5/Ipratropium 0.5 [Duoneb -] 1 amp NEB RQ4H amp 01/12/19 Allopurinol [Zyloprim -] 100 mg PO DAILY tablet 01/12/19 Chlorhexidine Gluconate [Hibiclens For Decolonization -] 1 applic TP HS bottle 01/12/19 Furosemide [Lasix -] 40 mg PO DAILY tablet 01/12/19 Gabapentin [Neurontin -] 100 mg PO TID capsule 01/12/19 Nystatin Powder [Nystop Powder -] 1 applic TP DAILY applic 01/12/19 traMADol HCL [Ultram -] 50 mg PO Q8H PRN #30 tablet MDD 2 01/12/19 Lanolin Alcohol/Mo/W.pet/[place] [Eucerin Creme] 113 gm TP BID 01/22/19 Polyethylene Glycol 3350 [Miralax (For Daily Use) -] 17 gm PO DAILY 01/22/19 Silver Sulfadiazine 1% Top Cr [Silvadene -] 1 applic TP DAILY 01/22/19 Warfarin Na [Coumadin] 3 mg PO HS 01/22/19 Bacitracin - [Bacitracin Topical Ointment -] 1 applic TP DAILY tube 02/09/19 Collagenase Clostridium Hist. [Santyl -] 1 applic TP DAILY tube 02/09/19 Digoxin [Lanoxin -] 0.125 mg PO DAILY tablet 02/09/19 Guaifenesin [Robitussin -] 10 ml PO Q4H PRN cup 02/09/19 Metolazone [Zaroxolyn -] 2.5 mg PO DAILY@0930 tablet 02/09/19 Pantoprazole Sodium [Protonix] 40 mg PO DAILY #30 tablet. 02/09/19
== END 2019-02-10 14:54 | disposition short-term general hospital (02) | DRG 871 ==
LOC: JER 16:11 → JERBED 18:01 → JICU 01-23 01:48 → J7W 01-25 17:45
PROVIDERS: ADMIT Internal Medicine; ATTEND Internal Medicine
PROC: 05HM33Z Insertion of Infusion Device into Right Internal Jugular Vein, Percutaneous Approach (ICD-10-PCS; principal; 2019-01-22)
PROC: B513ZZA Fluoroscopy of Right Jugular Veins, Guidance (ICD-10-PCS; 2019-01-22)
PROC: 30233N1 Transfusion of Nonautologous Red Blood Cells into Peripheral Vein, Percutaneous Approach (ICD-10-PCS; 2019-01-23)
DX: A41.1 Sepsis due to other specified staphylococcus (principal); E43 Unspecified severe protein-calorie malnutrition; J96.21 Acute and chronic respiratory failure with hypoxia; J96.02 Acute respiratory failure with hypercapnia; J18.9 Pneumonia, unspecified organism; I50.33 Acute on chronic diastolic (congestive) heart failure; I48.1 Persistent atrial fibrillation; D61.818 Other pancytopenia; N39.0 Urinary tract infection, site not specified; K55.9 Vascular disorder of intestine, unspecified; A04.72 Enterocolitis due to Clostridium difficile, not specified as recurrent; I13.0 Hypertensive heart and chronic kidney disease with heart failure and stage 1 through stage 4 chronic kidney disease, or unspecified chronic kidney disease; N18.4 Chronic kidney disease, stage 4 (severe); I50.30 Unspecified diastolic (congestive) heart failure; A41.59 Other Gram-negative sepsis; J44.9 Chronic obstructive pulmonary disease, unspecified; B96.20 Unspecified Escherichia coli [E. coli] as the cause of diseases classified elsewhere; I48.91 Unspecified atrial fibrillation; E78.5 Hyperlipidemia, unspecified; E77.8 Other disorders of glycoprotein metabolism; I25.10 Atherosclerotic heart disease of native coronary artery without angina pectoris; E11.22 Type 2 diabetes mellitus with diabetic chronic kidney disease; E78.00 Pure hypercholesterolemia, unspecified; D64.9 Anemia, unspecified; J39.8 Other specified diseases of upper respiratory tract; E01.0 Iodine-deficiency related diffuse (endemic) goiter; I27.20 Pulmonary hypertension, unspecified; I95.9 Hypotension, unspecified; D69.6 Thrombocytopenia, unspecified; D72.828 Other elevated white blood cell count; E66.8 Other obesity; Z68.38 Body mass index [BMI] 38.0-38.9, adult; R21 Rash and other nonspecific skin eruption; E05.00 Thyrotoxicosis with diffuse goiter without thyrotoxic crisis or storm; K31.819 Angiodysplasia of stomach and duodenum without bleeding; K29.60 Other gastritis without bleeding; T38.2X5A Adverse effect of antithyroid drugs, initial encounter; K57.90 Diverticulosis of intestine, part unspecified, without perforation or abscess without bleeding; R41.82 Altered mental status, unspecified; F43.10 Post-traumatic stress disorder, unspecified; L89.322 Pressure ulcer of left buttock, stage 2; L89.312 Pressure ulcer of right buttock, stage 2; L89.152 Pressure ulcer of sacral region, stage 2; L89.892 Pressure ulcer of other site, stage 2; Z99.81 Dependence on supplemental oxygen; Z88.0 Allergy status to penicillin; Z99.3 Dependence on wheelchair; Z96.643 Presence of artificial hip joint, bilateral; Z71.89 Other specified counseling
CPT/HCPCS: 36415; 36430; 36511; 36580; 36600; 71045-TC-FY; 71250-TC; 77001-TC-FY; 80048; 80053; 80162; 81003; 82308; 82607; 82728; 82746; 82803; 83010; 83540; 83550; 83605; 83615; 83735; 83880; 84100; 84134; 84439; 84443; 84480; 84481; 85025; 85027; 85044; 85384; 85610; 85730; 86850; 86900; 86901; 86922; 87040; 87070; 87086; 87186; 87324; 87449; 87899; 93005; 93010; 94640; 94660; 97162-GP; 99284-25; C1751; E0186; G0480; J0131; J1756; J7030; P9038; P9058